=== PATIENT | male | born 1945 | race Caucasian/White ===

== ENCOUNTER 2024-06-04 10:39 | Inpatient (IN) | payer MEDICARE, SELFPAY ==
[2024-06-04] VITALS (13 sets, daily range): BP systolic 114–129; BP diastolic 56–63; PULSE 60–64; RESP 16–26; TEMP 36.6–36.9; O2SAT 88–100; BMI 22.1
--- NOTE | ~2024-06-04 | XR_ITS ---
Portable chest x-ray Comparison: 06/04/2024 Clinical History: Shortness of breath Findings: Probable minimal bibasilar airspace disease, unchanged. Cardiomediastinal silhouette is s table, with pacemaker device. Bones and soft tissues are unremarkable. Impression: Stable minimal bibasilar airspace disease. Correlate for minimal atelectasis/edema or possibly pneumo jessica. Reviewed, dictated and finalized at location . ENT STEAMER Impression: Stable minimal bibasilar airspace disease. Correlate for minimal atelectasis/ed abi[place] or possibly pneumonia.
--- NOTE | ~2024-06-04 | XR_ITS ---
Portable chest x-ray Comparison: 06/05/2024 Clinical History: Shortness of breath Findings: There is patchy left lower lobe airspace consolidation. Right lung clear. Cardiomediastin al silhouette is stable, with pacemaker device. Bones and soft tissues are unremarkable. Impression: Left lower lobe pneumonia. Reviewed, dictated and finalized at [facility]. TER TEACHER Impression: Left lower lobe pneumonia.
--- NOTE | ~2024-06-04 | XR_ITS ---
EXAMINATION: XR chest 1V portable DATE: 06/04/2024 12:28 INDICATION: Shortness of breath. Verify PICC line placement. TECHNIQUE: frontal view of the chest was obtained. COMPARISON: None FINDINGS: Right upper extremity peripherally inserted central venous catheter (PICC) tip at the cephalad super ior vena cava approximately 1 cm above level of the sarah. Skinfold projects over the lateral right lower lung zone. There are few scattered bilateral small lorraine cified pulmonary nodules consistent with old granulomatous disease. Mild reticular opacities at the l eft lung base. No pleural effusion or pneumothorax. The cardiomediastinal silhouette is normal. Three lead pacemaker seen with one lead tip projecting over the right atrium and 2-lead tips projecting ov er the right ventricle. IMPRESSION: 1. Right PICC line tip at the cephalad superior vena cava. 2. Mild reticular opacities at the left lung base which could represent atelectasis, asymmetric mild pulmonary edema or pneumonia. Reviewed, dictated and finalized at location A. FICATION OPERATOR HELPER IMPRESSION: 1. Right PICC line tip at the cephalad superior vena cava. 2. Mild reticular opacities at the left lung base which could represent atelect asis, asymmetric mild pulmonary edema or pneumonia.
--- NOTE | 2024-06-04 10:53 | P.HP_ITS ---
H&P: HPI History of Present Illness Date/Time: 06/04/24 10:53 Chief Complaint: Altered mental status Narrative: This is a 79-year-old male who presented via EMS from [facility] for increased confusion and was unresponsive to the staff. On arrival to the ED his saturation was down to 66% was placed oxygen supplementation eventaully was placed on BIPAP. Laboratory data revealed WBC of 16 K hemoglobin of 10.9 platelet count of 279. Complete metabolic profile showed sodium 143 potassium 4.2 chloride 103 bicarbonate 31 glucose was 242 BUN 46 creatinine 1.2 calcium 9.1 LFTs were within normal limit. Ethanol level negative lactic acid was 2.0. Urinalysis was negative for infection. CT head no acute intracranial abnormalities generalized cerebral atrophy. Urine drug screen was negative CT chest abdomen pelvis was performed: Several consolidations in the right lower lobe with tree-in-bud opacities lower lobes bilaterally findings compatible with multifocal pneumonia. Trace diffuse mesenteric edema and mild anasarca suggesting volume overload. Limited evaluation of the upper abdominal structures secondary to motion. Cardiac pacemaker device in left chest wall. Moderate coronary atherosclerosis. No pericardial effusion. Scattered prominent mediastinal lymph nodes. Guerra catheter in place. Prostatomegaly. Patient had been pancultured. He received antibiotics with vancomycin Zosyn and ceftriaxone per report. Patient also received azithromycin. patient is noted to be on daptomycin for staph bacteremia per notes. abg repeat at 5:00 a.m. 7.42///31 BNP 5768 he was transferred here for further treatment. he has been placed on bipap since arrival and mumbles during the evaluation but was awake. Review of Systems Review of Systems: ROS unobtainable: Yes unobtainable due to mental status [facility] Family History Family History (Updated 06/04/24 @ 15:10 by Carmen Phelan RN) Mother Heart attack Other Unknown family medical history Social History Social History Smoking status: Former smoker Tobacco type: cigarettes Alcohol intake: unknown Substance use: unknown Substance use type: unknown Meds Home Medications and Allergies Home Medications ?Medication ?Instructions ?Recorded ?Confirmed ?Type apixaban 5 mg tablet (Eliquis) 5 mg PO Q12H 06/04/24 06/04/24 History carvedilol 3.125 mg tablet 6.25 mg PO Q12H 06/04/24 06/04/24 History cyanocobalamin (vitamin B-12) 1,000 mcg PO DAILY 06/04/24 06/04/24 History 1,000 mcg capsule daptomycin 500 mg intravenous 600 mg IV Q24H urosepsis 06/04/24 06/04/24 History solution ferrous sulfate 325 mg (65 mg 325 mg PO DAILY 06/04/24 06/04/24 History iron) tablet finasteride 5 mg tablet 5 mg PO DAILY 06/04/24 06/04/24 History furosemide 40 mg tablet 40 mg PO DAILY 06/04/24 06/04/24 History honey 80 % topical gel (MediHoney 1 applic topical DAILY PRN 06/04/24 06/04/24 History (honey)) dressing changes lisinopril 5 mg tablet 5 mg PO DAILY 06/04/24 06/04/24 History loperamide 2 mg chewable tablet 2 mg PO QID PRN diarrhea 06/04/24 06/04/24 History magnesium oxide 400 mg (241.3 mg 400 mg PO BID 06/04/24 06/04/24 History magnesium) tablet metformin 1,000 mg tablet 1,000 mg PO BID 06/04/24 06/04/24 History nitroglycerin 0.4 mg sublingual 0.4 mg sublingual Q5M PRN chest 06/04/24 06/04/24 History tablet pain polyethylene glycol 3350 17 17 g PO DAILY PRN constipation 06/04/24 06/04/24 History gram/dose oral powder (Miralax) potassium chloride 20 mEq 20 meq PO DAILY 06/04/24 06/04/24 History tablet,extended release(part/cryst) sodium chloride 0.9 % (flush) 10 ml IV BID 06/04/24 06/04/24 History Allergies Allergy/AdvReac Type Severity Reaction Status Date / Time tomatoes Allergy Unknown Unknown Uncoded 06/04/24 13:24 Exam Narrative: GENERAL: The patient is well developed, not in acute distress, on BIPAP, mumbles, eyes intermittently open HEENT: Nonicteric sclerae, PERRLA, EOMI. Oropharynx clear. Moist mucous membranes. Conjunctivae appear well perfused. CHEST: Chest wall is nontender. HEART: Regular rate and rhythm without murmur, rubs, or gallops LUNGS: coarse breath sounds bilaterally. no respiratory distress ABDOMEN: Soft, positive bowel sounds, non-tender, no organomegaly. SKIN: No rash, no excessive bruising, petechiae, or purpura. NEUROLOGIC: Cranial nerves II-XII intact, patient mumbles, intermittently opens eyes, moves both extremities, confused EXTREMITIES: no edema, cyanosis or clubbing right arm picc inplace Assessment and Plan Assessment and plan (1) Acute respiratory failure: Code(s): J96.00 - Acute respiratory failure, unspecified whether with hypoxia or hypercapnia Status: Acute (2) Multifocal pneumonia: Code(s): J18.9 - Pneumonia, unspecified organism Status: Acute (3) Encephalopathy acute: Code(s): G93.40 - Encephalopathy, unspecified Status: Acute (4) Congestive heart failure: Code(s): I50.9 - Heart failure, unspecified Status: Acute (5) Hypertension: Code(s): I10 - Essential (primary) hypertension Status: Acute (6) Atrial fibrillation: Code(s): I48.91 - Unspecified atrial fibrillation Status: Acute (7) Bacteremia: Code(s): R78.81 - Bacteremia Status: Acute (8) Type 2 diabetes mellitus: Code(s): E11.9 - Type 2 diabetes mellitus without complications Status: Acute Plan This is a 79-year-old male who presented via EMS from [facility] for increased confusion and was unresponsive to the staff. On arrival to the ED his saturation was down to 66% was placed oxygen supplementation eventaully was placed on BIPAP. Laboratory data revealed WBC of 16 K hemoglobin of 10.9 platelet count of 279. Complete metabolic profile showed sodium 143 potassium 4.2 chloride 103 bicarbonate 31 glucose was 242 BUN 46 creatinine 1.2 calcium 9.1 LFTs were within normal limit. Ethanol level negative lactic acid was 2.0. Urinalysis was negative for infection. CT head no acute intracranial abnormalities generalized cerebral atrophy. Urine drug screen was negative CT chest abdomen pelvis was performed: Several consolidations in the right lower lobe with tree-in-bud opacities lower lobes bilaterally findings compatible with multifocal pneumonia. Trace diffuse mesenteric edema and mild anasarca suggesting volume overload. Limited evaluation of the upper abdominal structures secondary to motion. Cardiac pacemaker device in left chest wall. Moderate coronary atherosclerosis. No pericardial effusion. Scattered prominent mediastinal lymph nodes. Guerra catheter in place. Prostatomegaly. Patient had been pancultured. He received antibiotics with vancomycin Zosyn and ceftriaxone per report. Patient also received azithromycin. patient is noted to be on daptomycin for staph bacteremia per notes. abg repeat at 5:00 a.m. 7.42/46/53/31 BNP 5768 he was transferred here for further treatment. he has been placed on bipap since arrival and mumbles during the evaluation but was awake. will continue bipap as needed for respiratory distresss, taper down to oxygen via nasal cannual as needed acute hypoxic/mild hypercapnic resp failure: ct chest with multifocal pneumoina. Recent staph bacteremia needing daptomycin. will continue daptomycin as previously ordered. Atrial fibrillation BPH Congestive heart failure not in exacerbation. continue to monitor Coronary artery disease Dementia Type 2 diabetes mellitus SSI Hypertension Hyperlipidemia History of incarcerated hernia Status post pacemaker implantation Sick sinus syndrome DVT proph on apixaban, but now npo, so will place on lovenox code statu: full code. 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 family could not be reaached Hospitalist MIPS Advance Care Plan I have confirmed that the patient's Advanced Care Plan is present, code status is documented, or surrogate decision maker is listed in patient medical record.: Yes Medication Reconciliation I have utilized all available resources to obtain, update and review the patients current medications (includes all prescriptions, OTC, herbals, cannabis, and nutritional supplements).: Yes
[2024-06-04 12:10] LABS: Basophils Percent Auto 0.1 % (0.2-1.2); Hematocrit 37.5 % (42.0-52.0); Hemoglobin 11.2 g/dL (14.0-18.0); Immature Granulocyte Absolute 0.08 K/mm3 (0.00-0.031); Immature Granulocyte Percent A 0.5 % (0-0.5); Lymphocytes Absolute Auto 1.08 K/mm3 (0.9-3.2); Lymphocytes Percent Auto 7.3 % (18.3-44.2); Mean Corpuscular HGB Conc 29.9 g/dl (32-36); Mean Corpuscular Hemoglobin 26.5 pg (26-34); Mean Corpuscular Volume 88.7 fl (80-100); Mean Platelet Volume 11.2 fl (7.4-10.4); Monocytes Absolute Auto 0.7 K/mm3 (0.1-0.6); Monocytes Percent Auto 4.6 % (2.6-8.5); Neutrophils Percent Auto 87.5 % (45.5-73.1); Platelet Count Result 255 k/mm3 (150-375); Red Blood Count 4.23 M/mm3 (4.6-6.20); Red Cell Distribution Width 17.2 % (11.5-14.5); White Blood Count 14.8 K/mm3 (4.5-10.0)
[2024-06-04 12:21] LABS: Alanine Aminotransferase 18 U/L (6-50); Albumin Level 3.2 g/dL (3.5-5.1); Alkaline Phosphatase 94 U/L (38-126); Anion Gap 3 mmol/L (4-12); Aspartate Amino Transferase 23 U/L (17-59); Bilirubin,Total 0.9 mg/dL (0.2-1.3); Blood Urea Nitrogen 45 mg/dL (9-20); Carbon Dioxide 31 mmol/L (22-30); Chloride 108 mmol/L (98-107); Estimated Glomerular Filt Rate > 60; Glucose 180 mg/dL (65-110); Magnesium 1.8 mg/dL (1.6-2.3); Potassium 3.7 mmol/L (3.4-5.0); Sodium 142 mmol/L (137-145)
[2024-06-04 12:33] LABS: Anisocytosis 1+; Platelet Estimate Adequate (Adequate)
[2024-06-04 12:42] LABS: Schistocytes 1+
--- NOTE | 2024-06-04 13:59 | PC.NURSE ---
Patient retirement is [facility]. [phone]. Called center to get information on patient, face sheet, and med list. Patient son and daughter called after paperwork received from center. No answer from either child. Message left for both to call IMU to discuss father status. Have not received a call as of 1400. Patient unable to tolerate much movement or stimulation. Response is minimal.
[2024-06-04 15:30] LABS: Add Urine Microscopic? YES; Appearance Urine Turbid (Clear); Bacteria Urine Rare /hpf; Bilirubin Urine Negative (Negative); Blood Urine 3+ (Negative); Color Urine Yellow (Yellow); Glucose Urine UA Negative (Negative); Ketones Urine Trace mg/dL (Negative); Leukocyte Esterase Ur 2+ LEU/UL (Negative); Need Manual Microscopic Reviewed; Nitrate Urine Positive (Negative); Non Pathogenic Casts >20; Protein Urine 2+ mg/dL (Negative); RBC Urine 51-100 /hpf (0-2); Specific Grav Ur > 1.045 (1.001-1.035); Squamous Epithelial Cell Urine Occasional /hpf (Few); WBC Urine >100 /hpf (0-3)
[2024-06-04 16:19] LABS: MRSA (PCR) NOT DETECTED (NOT DETECTE)
[2024-06-04 16:49] LABS: Procalcitonin 0.4 ng/mL
[2024-06-04] MEDS: SODIUM CHLORIDE 0.9% IV 1,000 ML 50 ML IV CONT (17:36)
[2024-06-04] MEDS: DAPTOmycin 600 MG in SODIUM CHLORIDE 0.9% IV 50 ML 100 MG IVPB (17:36)
[2024-06-04] MEDS: AZITHROMYCIN 500 MG/NS 250 ML 500 MG/250 ML BAG 250 MG IVPB (17:36)
[2024-06-04] MEDS: CENTRAL LINE FLUSH 10 ML IV PUSH ×2 (17:37→21:48)
[2024-06-04] MEDS: CEFEPIME 2 GM/NS 50 ML 2 GM/50 ML BAG IVPB (17:45)
[2024-06-05] VITALS (32 sets, daily range): BP systolic 100–132; BP diastolic 56–78; PULSE 59–107; RESP 19–50; TEMP 36.6–37.3; O2SAT 85–100
[2024-06-05] MEDS: CEFEPIME 2 GM/NS 50 ML 2 GM/50 ML BAG IVPB ×3 (00:34→20:27)
[2024-06-05 00:39] LABS: Glucose Point of Care 162 mg/dl (65-105)
[2024-06-05 05:44] LABS: Glucose Point of Care 171 mg/dl (65-105)
[2024-06-05] MEDS: CENTRAL LINE FLUSH 10 ML IV PUSH ×3 (06:21→21:46)
[2024-06-05 07:52] LABS: Alveolar/Arterial O2 Gradient 93.3 mmHg; Base Excess ABG 0.8 mEq/l (+/-2.0); Fractional Inspired Oxygen 30 %; Oxygen Saturation ABG 93.7 % (95.0-100.0); Oxyhemoglobin 92.7 % THb (90.0-100.0); PCO2 ABG 43.8 mmHg (35.0-45.0); PO2 ABG 69.1 mmHg (80.0-100.0); Total Hemoglobin 11.5 g/dL (12.0-18.0); pH ABG 7.391 (7.350-7.450)
[2024-06-05 07:53] LABS: Device NON-INVASIVE VENT; Modified Allen's Test Pass; Site Drawn RIGHT RADIAL
[2024-06-05 07:54] LABS: Non-Invasive Expiratory Pressure 6 CMH2O; Non-Invasive Inspiratory Pressure 12 CMH2O; Non-Invasive Vent Rate 16 /MIN
[2024-06-05] MEDS: IPRATROPIUM 0.5 MG/ALBUTEROL SULFATE 2.5 MG AMPUL.NEB 3 ML INHALATION ×3 (08:05→21:09)
[2024-06-05 08:19] LABS: Basophils Percent Auto 0.1 % (0.2-1.2); Eosinophils Percent Auto 0.1 % (0-4.4); Hematocrit 36.8 % (42.0-52.0); Hemoglobin 10.7 g/dL (14.0-18.0); Immature Granulocyte Absolute 0.11 K/mm3 (0.00-0.031); Immature Granulocyte Percent A 0.6 % (0-0.5); Lymphocytes Absolute Auto 1.22 K/mm3 (0.9-3.2); Lymphocytes Percent Auto 6.8 % (18.3-44.2); Mean Corpuscular HGB Conc 29.1 g/dl (32-36); Mean Corpuscular Hemoglobin 26.1 pg (26-34); Mean Corpuscular Volume 89.8 fl (80-100); Mean Platelet Volume 10.7 fl (7.4-10.4); Monocytes Absolute Auto 0.8 K/mm3 (0.1-0.6); Monocytes Percent Auto 4.6 % (2.6-8.5); Neutrophils Absolute Auto 15.8 K/mm3 (1.3-6.7); Neutrophils Percent Auto 87.8 % (45.5-73.1); Platelet Count Result 261 k/mm3 (150-375); Red Cell Distribution Width 17.1 % (11.5-14.5)
[2024-06-05] MEDS: ENOXAPARIN 40 MG/0.4 ML SYRINGE SUB-Q (08:19)
[2024-06-05 08:34] LABS: Alanine Aminotransferase 16 U/L (6-50); Albumin Level 2.9 g/dL (3.5-5.1); Alkaline Phosphatase 81 U/L (38-126); Anion Gap 5 mmol/L (4-12); Aspartate Amino Transferase 21 U/L (17-59); Bilirubin,Total 0.9 mg/dL (0.2-1.3); Blood Urea Nitrogen 44 mg/dL (9-20); Calcium 9.1 mg/dL (8.4-10.2); Carbon Dioxide 29 mmol/L (22-30); Chloride 112 mmol/L (98-107); Estimated CRCL calculation 67 ml/min; Estimated Glomerular Filt Rate > 60; Glucose 177 mg/dL (65-110); Magnesium 1.8 mg/dL (1.6-2.3); Potassium 3.7 mmol/L (3.4-5.0); Sodium 146 mmol/L (137-145)
[2024-06-05 08:55] LABS: Anisocytosis 1+; Platelet Estimate Adequate (Adequate); Schistocytes 1+
--- NOTE | 2024-06-05 09:40 | PC.NURSE ---
[facility] called with a critical lab result. Patient is possitive for Parainfluenza 4. Dr. munoz notified. Droplet pracautions initiated.
--- NOTE | 2024-06-05 11:47 | P.PNIM_ITS ---
Progress Note: A&P Assessment and Plan (1) Acute respiratory failure: Code(s): J96.00 - Acute respiratory failure, unspecified whether with hypoxia or hypercapnia Status: Acute (2) Multifocal pneumonia: Code(s): J18.9 - Pneumonia, unspecified organism Status: Acute (3) Encephalopathy acute: Code(s): G93.40 - Encephalopathy, unspecified Status: Acute (4) Congestive heart failure: Code(s): I50.9 - Heart failure, unspecified Status: Acute (5) Hypertension: Code(s): I10 - Essential (primary) hypertension Status: Acute (6) Atrial fibrillation: Code(s): I48.91 - Unspecified atrial fibrillation Status: Acute (7) Bacteremia: Code(s): R78.81 - Bacteremia Status: Acute (8) Type 2 diabetes mellitus: Code(s): E11.9 - Type 2 diabetes mellitus without complications Status: Acute Plan This is a 79-year-old male who presented via EMS from [facility] for increased confusion and was unresponsive to the staff. On arrival to the ED his saturation was down to 66% was placed oxygen supplementation eventaully was placed on BIPAP. Laboratory data revealed WBC of 16 K hemoglobin of 10.9 platelet count of 279. Complete metabolic profile showed sodium 143 potassium 4.2 chloride 103 bicarbonate 31 glucose was 242 BUN 46 creatinine 1.2 calcium 9.1 LFTs were within normal limit. Ethanol level negative lactic acid was 2.0. Urinalysis was negative for infection. CT head no acute intracranial abnormalities generalized cerebral atrophy. Urine drug screen was negative CT chest abdomen pelvis was performed: Several consolidations in the right lower lobe with tree-in-bud opacities lower lobes bilaterally findings cheko tible with multifocal pneumonia. Trace diffuse mesenteric edema and mild anasarca suggesting volume overload. Limited evaluation of the upper abdominal structures secondary to motion. Cardiac pacemaker device in left chest wall. Moderate coronary atherosclerosis. No pericardial effusion. Scattered prominent mediastinal lymph nodes. Guerra catheter in place. Prostatomegaly. Patient had been pancultured. He received antibiotics with vancomycin Zosyn and ceftriaxone per report. Patient also received azithromycin. patient is noted to be on daptomycin for staph bacteremia per notes. abg repeat at 5:00 a.m. 7.42/46/53/31 BNP 5768 he was transferred here for further treatment. he has been placed on bipap since arrival and mumbles during the evaluation but was awake. continue bipap as needed for respiratory distresss, taper down to oxygen via nasal cannual as needed. Continue BiPAP at night acute hypoxic/mild hypercapnic resp failure: ct chest with multifocal pneumoina. Respiratory panel came back positive for parainfluenza. Respiratory precautions will be started. Recent staph bacteremia needing daptomycin. will continue daptomycin as previously ordered. Will get previous records. This concludes till July 01, 2023 per report Atrial fibrillation BPH Congestive heart failure not in exacerbation. continue to monitor Coronary artery disease Dementia Type 2 diabetes mellitus SSI Hypertension Hyperlipidemia History of incarcerated hernia Status post pacemaker implantation Sick sinus syndrome DVT proph on apixaban, but now npo, so will place on lovenox code statu: full code. 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 family Amadeo was called this afternoon and confirmed and verified a do not resuscitate. Will change it to do not resuscitate Subjective Date/time seen: 06/05/24 11:47 Interval history: Patient had desaturation overnight and hence was put back on BiPAP. Was tachypneic earlier. Opens his eyes on verbal commands. Hard to understand. Labs reviewed. ABG reviewed. Review of Systems Review of Systems: All systems reviewed & are unremarkable except as noted in HPI and below ROS unobtainable: Yes unobtainable due to mental status Exam Narrative: GENERAL: The patient is well developed, not in acute distress, on BIPAP, mumbles, opens eyes on verbal commands hard to understand HEENT: Nonicteric sclerae, PERRLA, EOMI. Oropharynx clear. Moist mucous membranes. Conjunctivae appear well perfused. CHEST: Chest wall is nontender. HEART: Regular rate and rhythm without murmur, rubs, or gallops LUNGS: coarse breath sounds bilaterally. no respiratory distress ABDOMEN: Soft, positive bowel sounds, non-tender, no organomegaly. SKIN: No rash, no excessive bruising, petechiae, or purpura. NEUROLOGIC: Cranial nerves II-XII intact, patient mumbles, intermittently opens eyes, moves both extremities, confused EXTREMITIES: no edema, cyanosis or clubbing right arm picc inplace Objective Data Vital Signs Vital Signs: Vital Signs - 24 hr 06/04/24 12:06/04/24 12:00 06/04/24 12:05 Temperature 97.9 F 97.9 F Pulse Rate 64 64 Respiratory Rate 16 16 Blood Pressure 127/63 127/63 Pulse Oximetry 94 94 88 L Oxygen Delivery BiPAP Oxygen Flow Rate Fraction of Inspired Oxygen 40 06/04/24 12:07 06/04/24 14:12 06/04/24 15:52 Temperature Pulse Rate 60 Respiratory Rate 26 H Blood Pressure Pulse Oximetry 92 92 98 Oxygen Delivery BiPAP BiPAP Nasal Cannula Oxygen Flow Rate 5 Fraction of Inspired Oxygen 50 40 06/04/24 15:53 06/04/24 16:00 06/04/24 16:08 Temperature 98.4 F Pulse Rate 60 60 Respiratory Rate 24 H Blood Pressure 129/60 Pulse Oximetry 100 97 Oxygen Delivery Nasal Cannula Oxygen Flow Rate 3 Fraction of Inspired Oxygen 32 06/04/24 19:39 06/04/24 20:00 06/04/24 20:15 Temperature 98.1 F Pulse Rate 62 62 Respiratory Rate 24 H Blood Pressure 114/56 L Pulse Oximetry 100 99 Oxygen Delivery Nasal Cannula Oxygen Flow Rate 3 Fraction of Inspired Oxygen 06/04/24 22:00 06/05/24 00:00 06/05/24 00:28 Temperature 98.7 F Pulse Rate 60 60 68 Respiratory Rate 20 Blood Pressure 122/58 L Pulse Oximetry 96 Oxygen Delivery Oxygen Flow Rate Fraction of Inspired Oxygen 06/05/24 00:30 06/05/24 02:00 06/05/24 03:52 Temperature 99.1 F Pulse Rate 60 60 Respiratory Rate 22 H Blood Pressure 132/57 L Pulse Oximetry 97 85 L Oxygen Delivery Nasal Cannula Oxygen Flow Rate 3 Fraction of Inspired Oxygen 06/05/24 04:00 06/05/24 04:00 06/05/24 06:00 Temperature Pulse Rate 60 60 Respiratory Rate Blood Pressure Pulse Oximetry 85 L Oxygen Delivery Nasal Cannula Oxygen Flow Rate 3 Fraction of Inspired Oxygen 06/05/24 07:36 06/05/24 07:37 06/05/24 07:59 Temperature 98.7 F Pulse Rate 60 60 60 Respiratory Rate 30 H 19 33 H Blood Pressure 132/78 Pulse Oximetry 97 96 98 Oxygen Delivery BiPAP BiPAP Oxygen Flow Rate Fraction of Inspired Oxygen 06/05/24 08:00 06/05/24 08:00 06/05/24 08:06 Temperature Pulse Rate 60 61 Respiratory Rate 22 H Blood Pressure Pulse Oximetry 99 Oxygen Delivery BiPAP Oxygen Flow Rate Fraction of Inspired Oxygen 40 06/05/24 08:15 06/05/24 10:00 06/05/24 11:39 Temperature Pulse Rate 78 60 62 Respiratory Rate 24 H 33 H Blood Pressure Pulse Oximetry 100 Oxygen Delivery BiPAP Oxygen Flow Rate Fraction of Inspired Oxygen Intake/Output Intake/Output: Intake & Output 06/02/24 06/03/24 06/04/24 06/05/24 23:59 23:59 23:59 23:59 Intake Total 50 50 Output Total 100 225 Balance -50 -175 Meds/Results Medications: Active Medications Generic Name Dose Route Start Last Admin Trade Name Freq PRN Reason Stop Dose Admin Albuterol/Ipratropium 3 ml 06/05/24 08:00 06/05/24 08:05 Ipratropium 0.5 Mg/Albuterol Sulfate 2.5 Mg Ampul.Neb 3 Ml INHALATION 3 ml Q6HRT DEBBIE Administration Dextrose 12.5 gm 06/04/24 13:10 Dextrose 50% 25 Gm/50 Ml Syringe IV PUSH PRN PRN Hypoglycemia Protocol Enoxaparin Sodium 40 mg 06/05/24 09:00 06/05/24 08:19 Enoxaparin 40 Mg/0.4 Ml Syringe SUB-Q 40 mg DAILY DEBBIE Administration Glucagon 1 mg 06/04/24 13:10 Glucagon For Inj 1 Mg Vial IM PRN PRN Hypoglycemia Protocol Glucose 15 gm 06/04/24 13:10 Glucose Oral Gel 15 Gm Of Glucse In 37.5 Gm Tube PO PRN PRN Hypoglycemia Protocol Dextrose 1,000 mls @ 100 mls/hr 06/04/24 13:10 Dextrose 5% 1,000 Ml IVPB PRN PRN Hypoglycemia Protocol Cefepime HCl 2 gm in 50 mls @ 100 mls/hr 06/04/24 13:15 06/05/24 09:24 Maxipime 2 Gm/Ns 50 Ml IVPB 100 mls/hr Q12HR DEBBIE Administration Azithromycin 500 mg in 250 mls @ 250 mls/hr 06/04/24 15:00 06/04/24 17:36 Zithromax IVPB 250 mls/hr Q24H DEBBIE Administration Daptomycin 600 mg/ Sodium 50 mls @ 100 mls/hr 06/04/24 17:00 06/04/24 17:36 Chloride IVPB 100 mls/hr Q24H DEBBIE Administration Sodium Chloride 1,000 mls @ 50 mls/hr 06/04/24 16:05 06/04/24 17:36 Normal Saline Iv IV CONT 50 mls/hr .Q20H DEBBIE Administration Insulin Aspart 2 - 5 units 06/04/24 18:00 06/05/24 06:18 Insulin Aspart (*Bkc) 100 Units/Ml SUB-Q Not Given Q6HR [facility] Protocol Ondansetron HCl 4 mg 06/04/24 11:05 Ondansetron Inj 4 Mg/2 Ml Vial IV PUSH Q6H PRN Nausea And Vomiting Sodium Chloride 20 ml 06/04/24 13:53 Central Line Flush IV PUSH PRN PRN after blood draws Sodium Chloride 10 ml 06/04/24 13:53 Central Line Flush IV PUSH PRN PRN with TPN bag changes Sodium Chloride 10 ml 06/04/24 14:00 06/05/24 06:21 Central Line Flush IV PUSH 10 ml Q8HR DEBBIE Administration Radiology Results: ITS Impressions Chest X-Ray 06/05/24 08:25 Impression: Stable minimal bibasilar airspace disease. Correlate for minimal atelectasis/edema or possibly pneumonia. Labs Labs: Laboratory Results - last 24 hr 06/04/24 06/04/24 06/05/24 11:48 14:40 00:31 WBC 14.8 H RBC 4.23 L Hgb 11.2 L Hct 37.5 L MCV 88.7 MCH 26.5 MCHC 29.9 L RDW 17.2 H Plt Count 255 MPV 11.2 H Immature Gran % (Auto) 0.5 Neut % (Auto) 87.5 H Lymph % (Auto) 7.[address] % (Auto) 4.6 Eos % (Auto) 0.0 Baso % (Auto) 0.1 L Lymph # (Auto) 1.08 [place] # (Auto) 0.7 H Eos # (Auto) 0.0 Baso # (Auto) 0.0 Abs Immat Gran (auto) 0.08 H Absolute Neuts (auto) 13.0 H Absolute Nucleated RBC 0.000 Nucleated RBC % 0.0 Platelet Estimate Adequate Anisocytosis 1+ Schistocytes 1+ Puncture Site ABG pH ABG pCO2 ABG pO2 ABG PO2/FiO2 Ratio ABG HCO3 ABG O2 Saturation ABG O2 Content ABG Base Excess A-a Gradient Oxyhemoglobin Total Hemoglobin O2 Delivery Device O2 Liters/Min Vent Rate FiO2 Expiratory Pressure Inspiratory Pressure Sodium 142 Potassium 3.7 Chloride 108 H Carbon Dioxide 31 H Anion Gap 3 L BUN 45 H Creatinine 0.90 Estim Creat Clear Calc Not Reportable Estimated GFR > 60 Glucose 180 H POC Capillary Glucose 162 H Hemoglobin A1c 8.0 H Calcium 9.0 Magnesium 1.8 Total Bilirubin 0.9 AST 23 ALT 18 Alkaline Phosphatase 94 Total Protein 7.0 Albumin 3.2 L Procalcitonin 0.4 Urine Color Yellow Urine Appearance Turbid H Urine pH 5.0 Ur Specific [place] > 1.045 H Urine Protein 2+ H Urine Glucose (UA) Negative Urine Ketones Trace H Ur Blood (Man) 3+ H Urine Nitrate Positive H Urine Bilirubin Negative Urine Urobilinogen 1.0 Add Ur Microanalysis Reviewed Leukocyte Esterase Rfl 2+ H Urine RBC 51-100 H Urine WBC >100 H Ur Squamous Epith Cells Occasional Urine Bacteria Rare Urine Casts >20 Nasal MRSA (PCR) Not detected 06/05/24 06/05/24 06/05/24 05:38 07:47 08:13 WBC 18.0 H RBC 4.10 L Hgb 10.7 L Hct 36.8 L MCV 89.8 MCH 26.1 MCHC 29.1 L RDW 17.1 H Plt Count 261 MPV 10.7 H Immature Gran % (Auto) 0.6 H Neut % (Auto) 87.8 H Lymph % (Auto) 6.[address] [place] % (Auto) 4.6 Eos % (Auto) 0.1 Baso % (Auto) 0.1 L Lymph # (Auto) 1.22 [place] # (Auto) 0.8 H Eos # (Auto) 0.0 Baso # (Auto) 0.0 Abs Immat Gran (auto) 0.11 H Absolute Neuts (auto) 15.8 H Absolute Nucleated RBC 0.000 Nucleated RBC % 0.0 Platelet Estimate Adequate Anisocytosis 1+ Schistocytes 1+ Puncture Site Right radial ABG pH 7.391 ABG pCO2 43.8 ABG pO2 69.1 L ABG PO2/FiO2 Ratio 2.30 ABG HCO3 26.0 ABG O2 Saturation 93.7 L ABG O2 Content 15.0 L ABG Base Excess 0.8 A-a Gradient 93.3 Oxyhemoglobin 92.7 Total Hemoglobin 11.5 L O2 Delivery Device Non-invasive vent O2 Liters/Min Not Reportable Vent Rate 16 FiO2 30 Expiratory Pressure 6 Inspiratory Pressure 12 Sodium 146 H Potassium 3.7 Chloride 112 H Carbon Dioxide 29 Anion Gap 5 BUN 44 H Creatinine 0.80 Estim Creat Clear Calc 67 Estimated GFR > 60 Glucose 177 H POC Capillary Glucose 171 H Hemoglobin A1c Calcium 9.1 Magnesium 1.8 Total Bilirubin 0.9 AST 21 ALT 16 Alkaline Phosphatase 81 Total Protein 7.0 Albumin 2.9 L Procalcitonin Urine Color Urine Appearance Urine pH Ur Specific [place] Urine Protein Urine Glucose (UA) Urine Ketones Ur Blood (Man) Urine Nitrate Urine Bilirubin Urine Urobilinogen Add Ur Microanalysis Leukocyte Esterase Rfl Urine RBC Urine WBC Ur Squamous Epith Cells Urine Bacteria Urine Casts Nasal MRSA (PCR)
[2024-06-05 11:58] LABS: Glucose Point of Care 180 mg/dl (65-105)
[2024-06-05] MEDS: SODIUM CHLORIDE 0.9% IV 1,000 ML 50 ML IV CONT (15:33)
[2024-06-05] MEDS: AZITHROMYCIN 500 MG/NS 250 ML 500 MG/250 ML BAG 250 MG IVPB (15:34)
[2024-06-05 16:32] LABS: Glucose Point of Care 181 mg/dl (65-105)
[2024-06-05] MEDS: DAPTOmycin 600 MG in SODIUM CHLORIDE 0.9% IV 50 ML 100 MG IVPB (17:20)
[2024-06-05] MEDS: LORazepam INJ (*CRX) 2 MG/ML VIAL 1 MG IV PUSH (22:05)
[2024-06-05] MEDS: MORPHINE SULFATE (*CRX) 2 MG/ML INJ 1 MG IV PUSH (22:06)
[2024-06-05 23:51] LABS: Glucose Point of Care 195 mg/dl (65-105)
[2024-06-06] VITALS (15 sets, daily range): BP systolic 84–97; BP diastolic 45–51; PULSE 60–86; RESP 14–63; TEMP 36.2–37.1; O2SAT 89–98; BMI 22.4
[2024-06-06] MEDS: IPRATROPIUM 0.5 MG/ALBUTEROL SULFATE 2.5 MG AMPUL.NEB 3 ML INHALATION ×2 (02:20→07:46)
[2024-06-06] MEDS: MORPHINE SULFATE (*CRX) 2 MG/ML INJ 1 MG IV PUSH (03:51)
[2024-06-06] MEDS: LORazepam INJ (*CRX) 2 MG/ML VIAL 1 MG IV PUSH (03:54)
[2024-06-06 05:26] LABS: Basophils Percent Auto 0.1 % (0.2-1.2); Eosinophils Percent Auto 0.2 % (0-4.4); Hematocrit 35.3 % (42.0-52.0); Hemoglobin 10.2 g/dL (14.0-18.0); Immature Granulocyte Absolute 0.09 K/mm3 (0.00-0.031); Immature Granulocyte Percent A 0.5 % (0-0.5); Lymphocytes Absolute Auto 1.17 K/mm3 (0.9-3.2); Lymphocytes Percent Auto 6.9 % (18.3-44.2); Mean Corpuscular HGB Conc 28.9 g/dl (32-36); Mean Corpuscular Volume 89.8 fl (80-100); Mean Platelet Volume 11.3 fl (7.4-10.4); Monocytes Percent Auto 5.8 % (2.6-8.5); Neutrophils Absolute Auto 14.7 K/mm3 (1.3-6.7); Neutrophils Percent Auto 86.5 % (45.5-73.1); Platelet Count Result 240 k/mm3 (150-375); Red Blood Count 3.93 M/mm3 (4.6-6.20); Red Cell Distribution Width 17.1 % (11.5-14.5)
[2024-06-06 05:38] LABS: Alanine Aminotransferase 14 U/L (6-50); Albumin Level 2.7 g/dL (3.5-5.1); Alkaline Phosphatase 100 U/L (38-126); Anion Gap 5 mmol/L (4-12); Aspartate Amino Transferase 16 U/L (17-59); Bilirubin,Total 0.9 mg/dL (0.2-1.3); Blood Urea Nitrogen 50 mg/dL (9-20); Calcium 9.2 mg/dL (8.4-10.2); Carbon Dioxide 28 mmol/L (22-30); Chloride 115 mmol/L (98-107); Creatine Kinase 30 U/L (55-170); Estimated CRCL calculation 68 ml/min; Estimated Glomerular Filt Rate > 60; Glucose 204 mg/dL (65-110); Potassium 3.6 mmol/L (3.4-5.0); Sodium 148 mmol/L (137-145)
[2024-06-06 05:38] LABS: Glucose Point of Care 179 mg/dl (65-105)
[2024-06-06 05:59] LABS: Anisocytosis 1+; Platelet Estimate Adequate (Adequate); Poikilocytosis 1+
[2024-06-06 06:00] LABS: Acanthocytes 1+; Burr Cells 1+; Schistocytes None Seen
[2024-06-06] MEDS: CENTRAL LINE FLUSH 10 ML IV PUSH ×2 (06:24→13:26)
[2024-06-06] MEDS: LORazepam INJ (*CRX) 2 MG/ML VIAL IV PUSH ×2 (08:02→10:26)
[2024-06-06] MEDS: MORPHINE SULFATE (*CRX) 2 MG/ML INJ IV PUSH ×2 (08:02→10:27)
--- NOTE | 2024-06-06 08:12 | PC.NURSE ---
0730: RR 60, O2 84% on Bipap 02/12, 30%. Shirin RT notified. Fio2 increased to 100%. O2 91%. Dr. Villaseñor made aware. Advised to notify family. Supervisor Dried Yeast called Amadeo who reports he would like to move forward with comfort care. Reports comfort measures were discussed yesterday with MD. Dr. Villaseñor made aware. New orders noted for Morhphine and Ativan. 0800: Supervisor Dried Yeast called Amadeo back to discuss withdrawl of Bipap. Amadeo will call administrative underwriter back after discussing with family.
--- NOTE | 2024-06-06 10:30 | PCRCNOTE ---
RT took patient off bipap with family present in room. Patient is now comfort care and on a 2L NC. RN present for encounter.
--- NOTE | 2024-06-06 12:39 | PM.IMPN ---
Progress Note: A&P Assessment and Plan (1) Acute respiratory failure: Code(s): J96.00 - Acute respiratory failure, unspecified whether with hypoxia or hypercapnia Status: Acute (2) Multifocal pneumonia: Code(s): J18.9 - Pneumonia, unspecified organism Status: Acute (3) Encephalopathy acute: Code(s): G93.40 - Encephalopathy, unspecified Status: Acute (4) Congestive heart failure: Code(s): I50.9 - Heart failure, unspecified Status: Acute (5) Hypertension: Code(s): I10 - Essential (primary) hypertension Status: Acute (6) Atrial fibrillation: Code(s): I48.91 - Unspecified atrial fibrillation Status: Acute (7) Bacteremia: Code(s): R78.81 - Bacteremia Status: Acute (8) Type 2 diabetes mellitus: Code(s): E11.9 - Type 2 diabetes mellitus without complications Status: Acute Plan This is a 79-year-old male who presented via EMS from [facility] for increased confusion and was unresponsive to the staff. On arrival to the ED his saturation was down to 66% was placed oxygen supplementation eventaully was placed on BIPAP. Laboratory data revealed WBC of 16 K hemoglobin of 10.9 platelet count of 279. Complete metabolic profile showed sodium 143 potassium 4.2 chloride 103 bicarbonate 31 glucose was 242 BUN 46 creatinine 1.2 calcium 9.1 LFTs were within normal limit. Ethanol level negative lactic acid was 2.0. Urinalysis was negative for infection. CT head no acute intracranial abnormalities generalized cerebral atrophy. Urine drug screen was negative CT chest abdomen pelvis was performed: Several consolidations in the right lower lobe with tree-in-bud opacities lower lobes bilaterally findings compatible with multifocal pneumonia. Trace diffuse mesenteric edema and mild anasarca suggesting volume overload. Limited evaluation of the upper abdominal structures secondary to motion. Cardiac pacemaker device in left chest wall. Moderate coronary atherosclerosis. No pericardial effusion. Scattered prominent mediastinal lymph nodes. Guerra catheter in place. Prostatomegaly. Patient had been pancultured. He received antibiotics with vancomycin Zosyn and ceftriaxone per report. Patient also received azithromycin. patient is noted to be on daptomycin for staph bacteremia per notes. abg repeat at 5:00 a.m. 7.42/46/53/31 BNP 5768 he was transferred here for further treatment. he has been placed on bipap since arrival and mumbles during the evaluation but was awake. continue bipap as needed for respiratory distresss, taper down to oxygen via nasal cannula as needed. Continue BiPAP at night acute hypoxic/mild hypercapnic resp failure: ct chest with multifocal pneumonia. Respiratory panel came back positive for parainfluenza. Respiratory precautions will be started. Recent staph bacteremia needing daptomycin. will continue daptomycin as previously ordered. Will get previous records. This concludes till July 01, 2023 per report Atrial fibrillation BPH Congestive heart failure not in exacerbation. continue to monitor Coronary artery disease Dementia Type 2 diabetes mellitus SSI Hypertension Hyperlipidemia History of incarcerated hernia Status post pacemaker implantation Sick sinus syndrome DVT proph on apixaban, but now npo, so will place on lovenox code statu: full code. 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 family Amadeo was called this afternoon and confirmed and verified a do not resuscitate. changed to do not resuscitate now comfort care as discussed with patient's family. Subjective Date/time seen: 06/06/24 12:39 Interval history: Patient continues to be on respiratory distress. Remained on BiPAP. Family was called and discussed. Initiated on Comfort measures this a.m.. Review of Systems Review of Systems: ROS unobtainable: Yes unobtainable due to mental status Exam Narrative: GENERAL: The patient is thin built, tachypneic HEENT: Nonicteric sclerae, PERRLA, EOMI. Oropharynx clear. Moist mucous membranes. Conjunctivae appear well perfused. CHEST: Chest wall is nontender. HEART: Regular rate and rhythm without murmur, rubs, or gallops LUNGS: coarse breath sounds bilaterally. respiratory distress ABDOMEN: Soft, positive bowel sounds, non-tender, no organomegaly. SKIN: No rash, no excessive bruising, petechiae, or purpura. NEUROLOGIC: Cranial nerves II-XII intact, patient unresponsive EXTREMITIES: no edema, cyanosis or clubbing right arm picc in place Objective Data Vital Signs Vital Signs: Vital Signs - 24 hr 06/05/24 13:32 06/05/24 13:35 06/05/24 13:44 Temperature Pulse Rate 91 90 60 Respiratory Rate 36 H 20 20 Blood Pressure Pulse Oximetry 100 Oxygen Delivery BiPAP Oxygen Flow Rate Fraction of Inspired Oxygen 06/05/24 14:00 06/05/24 16:00 06/05/24 16:00 Temperature Pulse Rate 60 60 Respiratory Rate Blood Pressure Pulse Oximetry 99 Oxygen Delivery BiPAP Oxygen Flow Rate Fraction of Inspired Oxygen 40 06/05/24 16:12 06/05/24 17:27 06/05/24 18:00 Temperature 97.8 F Pulse Rate 60 107 H 60 Respiratory Rate 30 H 33 H Blood Pressure 113/58 L Pulse Oximetry 100 98 Oxygen Delivery BiPAP Oxygen Flow Rate Fraction of Inspired Oxygen 06/05/24 20:00 06/05/24 20:00 06/05/24 20:25 Temperature 97.8 F Pulse Rate 60 61 Respiratory Rate 20 Blood Pressure 128/65 Pulse Oximetry 94 95 Oxygen Delivery BiPAP Oxygen Flow Rate Fraction of Inspired Oxygen 50 06/05/24 21:09 06/05/24 21:23 06/05/24 21:24 Temperature Pulse Rate 60 61 60 Respiratory Rate 50 H 48 H 50 H Blood Pressure Pulse Oximetry 100 Oxygen Delivery BiPAP Oxygen Flow Rate Fraction of Inspired Oxygen 06/05/24 22:00 06/05/24 23:51 06/06/24 00:00 Temperature 98.1 F Pulse Rate 60 61 Respiratory Rate 19 Blood Pressure 100/56 L Pulse Oximetry 98 96 Oxygen Delivery BiPAP Oxygen Flow Rate Fraction of Inspired Oxygen 40 06/06/24 00:00 06/06/24 02:00 06/06/24 02:15 Temperature Pulse Rate 61 60 60 Respiratory Rate 56 H Blood Pressure Pulse Oximetry 95 Oxygen Delivery BiPAP Oxygen Flow Rate Fraction of Inspired Oxygen 06/06/24 02:20 06/06/24 02:30 06/06/24 04:00 Temperature Pulse Rate 60 60 Respiratory Rate 20 42 H Blood Pressure Pulse Oximetry 96 Oxygen Delivery BiPAP Oxygen Flow Rate Fraction of Inspired Oxygen 55 06/06/24 04:00 06/06/24 04:00 06/06/24 06:24 Temperature 97.8 F Pulse Rate 60 60 60 Respiratory Rate 19 Blood Pressure 92/45 L Pulse Oximetry 95 Oxygen Delivery Oxygen Flow Rate Fraction of Inspired Oxygen 06/06/24 07:47 06/06/24 07:47 06/06/24 07:54 Temperature Pulse Rate 60 60 60 Respiratory Rate 52 H 52 H 63 H Blood Pressure Pulse Oximetry 89 L Oxygen Delivery BiPAP Oxygen Flow Rate Fraction of Inspired Oxygen 06/06/24 08:00 06/06/24 08:00 06/06/24 08:00 Temperature 98.1 F Pulse Rate 86 60 Respiratory Rate 60 H Blood Pressure 97/51 L Pulse Oximetry 91 96 Oxygen Delivery BiPAP Oxygen Flow Rate Fraction of Inspired Oxygen 100 06/06/24 09:14 06/06/24 10:30 Temperature Pulse Rate 60 Respiratory Rate 61 H Blood Pressure Pulse Oximetry 92 98 Oxygen Delivery BiPAP Nasal Cannula Oxygen Flow Rate 2 Fraction of Inspired Oxygen 28 Intake/Output Intake/Output: Intake & Output 06/03/24 06/04/24 06/05/24 06/06/24 23:59 23:59 23:59 23:59 Intake Total 350 1450 Output Total 100 525 150 Balance 250 925 -150 Meds/Results Medications: Active Medications Generic Name Dose Route Start Last Admin Trade Name Freq PRN Reason Stop Dose Admin Lorazepam 2 mg 06/06/24 07:51 06/06/24 10:26 Lorazepam Inj (*Crx) 2 Mg/Ml Vial IV PUSH 2 mg Q2H PRN Administration Anxiety/Comfort Morphine Sulfate 2 mg 06/06/24 07:51 06/06/24 10:27 Morphine Sulfate (*Crx) 2 Mg/Ml Inj IV PUSH 2 mg Q30M PRN Administration COMFORT Ondansetron HCl 4 mg 06/04/24 11:05 Ondansetron Inj 4 Mg/2 Ml Vial IV PUSH Q6H PRN Nausea And Vomiting Sodium Chloride 20 ml 06/04/24 13:53 Central Line Flush IV PUSH PRN PRN after blood draws Sodium Chloride 10 ml 06/04/24 13:53 Central Line Flush IV PUSH PRN PRN with TPN bag changes Sodium Chloride 10 ml 06/04/24 14:00 06/06/24 06:24 Central Line Flush IV PUSH 10 ml Q8HR DEBBIE Administration Radiology Results: ITS Impressions Chest X-Ray 06/06/24 07:37 Impression: Left lower lobe pneumonia. Labs Labs: Laboratory Results - last 24 hr 06/05/24 06/05/24 06/06/24 16:28 23:47 04:57 WBC 17.0 H RBC 3.93 L Hgb 10.2 L Hct 35.3 L MCV 89.8 MCH 26.0 MCHC 28.9 L RDW 17.1 H Plt Count 240 MPV 11.3 H Immature Gran % (Auto) 0.5 Neut % (Auto) 86.5 H Lymph % (Auto) 6.[address] [place] % (Auto) 5.8 Eos % (Auto) 0.2 Baso % (Auto) 0.1 L Lymph # (Auto) 1.17 [place] # (Auto) 1.0 H Eos # (Auto) 0.0 Baso # (Auto) 0.0 Abs Immat Gran (auto) 0.09 H Absolute Neuts (auto) 14.7 H Absolute Nucleated RBC 0.000 Nucleated RBC % 0.0 Platelet Estimate Adequate Poikilocytosis 1+ Anisocytosis 1+ [place]ver Cells 1+ Acanthocytes (Spur) 1+ Schistocytes None seen Sodium 148 H Potassium 3.6 Chloride 115 H Carbon Dioxide 28 Anion Gap 5 BUN 50 H Creatinine 0.80 Estim Creat Clear Calc 68 Estimated GFR > 60 Glucose 204 H POC Capillary Glucose 181 H 195 H Calcium 9.2 Magnesium 2.0 Total Bilirubin 0.9 AST 16 L ALT 14 Alkaline Phosphatase 100 Total Creatine Kinase 30 L Total Protein 6.0 L Albumin 2.7 L 06/06/24 05:32 WBC RBC Hgb Hct MCV MCH MCHC RDW Plt Count MPV Immature Gran % (Auto) Neut % (Auto) Lymph % (Auto) [place] % (Auto) Eos % (Auto) Baso % (Auto) Lymph # (Auto) [place] # (Auto) Eos # (Auto) Baso # (Auto) Abs Immat Gran (auto) Absolute Neuts (auto) Absolute Nucleated RBC Nucleated RBC % Platelet Estimate Poikilocytosis Anisocytosis [place] Cells Acanthocytes (Spur) Schistocytes Sodium Potassium Chloride Carbon Dioxide Anion Gap BUN Creatinine Estim Creat Clear Calc Estimated GFR Glucose POC Capillary Glucose 179 H Calcium Magnesium Total Bilirubin AST ALT Alkaline Phosphatase Total Creatine Kinase Total Protein Albumin
--- NOTE | 2024-06-06 12:46 | PC.NURSE ---
This patient, Avila Fernandez, was transferred to [facility] on 06/06/24 at 1246. Personal belongings sent with patient. Report given to JACOB Trevizo. Appropriate documentation sent with patient.
--- NOTE | 2024-06-06 12:53 | PC.NURSE ---
This patient, Avila Fernandez, was received from [ IMU] on 06/06/24 at 1240. Patient/family oriented to unit policies and routines. Report from Mita
[2024-06-07 08:00] VITALS: BP 107/38; PULSE 60; RESP 14; TEMP 36.8; O2SAT 94
[2024-06-07 09:00] VITALS: O2SAT 93
--- NOTE | 2024-06-07 12:51 | P.PNIM_ITS ---
Progress Note: A&P Assessment and Plan (1) Acute respiratory failure: Code(s): J96.00 - Acute respiratory failure, unspecified whether with hypoxia or hypercapnia Status: Acute (2) Multifocal pneumonia: Code(s): J18.9 - Pneumonia, unspecified organism Status: Acute (3) Encephalopathy acute: Code(s): G93.40 - Encephalopathy, unspecified Status: Acute (4) Congestive heart failure: Code(s): I50.9 - Heart failure, unspecified Status: Acute (5) Hypertension: Code(s): I10 - Essential (primary) hypertension Status: Acute (6) Atrial fibrillation: Code(s): I48.91 - Unspecified atrial fibrillation Status: Acute (7) Bacteremia: Code(s): R78.81 - Bacteremia Status: Acute (8) Type 2 diabetes mellitus: Code(s): E11.9 - Type 2 diabetes mellitus without complications Status: Acute Plan This is a 79-year-old male who presented via EMS from [facility] for increased confusion and was unresponsive to the staff. On arrival to the ED his saturation was down to 66% was placed oxygen supplementation eventaully was placed on BIPAP. Laboratory data revealed WBC of 16 K hemoglobin of 10.9 platelet count of 279. Complete metabolic profile showed sodium 143 potassium 4.2 chloride 103 bicarbonate 31 glucose was 242 BUN 46 creatinine 1.2 calcium 9.1 LFTs were within normal limit. Ethanol level negative lactic acid was 2.0. Urinalysis was negative for infection. CT head no acute intracranial abnormalities generalized cerebral atrophy. Urine drug screen was negative CT chest abdomen pelvis was performed: Several consolidations in the right lower lobe with tree-in-bud opacities lower lobes bilaterally findings cheko tible with multifocal pneumonia. Trace diffuse mesenteric edema and mild anasarca suggesting volume overload. Limited evaluation of the upper abdominal structures secondary to motion. Cardiac pacemaker device in left chest wall. Moderate coronary atherosclerosis. No pericardial effusion. Scattered prominent mediastinal lymph nodes. Guerra catheter in place. Prostatomegaly. Patient had been pancultured. He received antibiotics with vancomycin Zosyn and ceftriaxone per report. Patient also received azithromycin. patient is noted to be on daptomycin for staph bacteremia per notes. abg repeat at 5:00 a.m. 7.42/46/53/31 BNP 5768 he was transferred here for further treatment. he has been placed on bipap since arrival and mumbles during the evaluation but was awake. continue bipap as needed for respiratory distresss, taper down to oxygen via nasal cannula as needed. Continue BiPAP at night acute hypoxic/mild hypercapnic resp failure: ct chest with multifocal pneumonia. Respiratory panel came back positive for parainfluenza. Respiratory precautions continued Recent staph bacteremia needing daptomycin. will continue daptomycin as previously ordered. This concludes till July 01, 2023 per report Atrial fibrillation BPH Congestive heart failure not in exacerbation. continue to monitor Coronary artery disease Dementia Type 2 diabetes mellitus SSI Hypertension Hyperlipidemia History of incarcerated hernia Status post pacemaker implantation Sick sinus syndrome DVT proph on apixaban, but now npo, so will place on lovenox code statu: full code. 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 family Amadeo was called this afternoon and confirmed and verified a do not resuscitate. changed to do not resuscitate patient respiratory status continued to decline and now transitioned to comfort care as discussed with patient's family. hospice referral today Subjective Date/time seen: 06/07/24 12:51 Interval history: no overnight events, patient unresponsive. comfortable, resting Review of Systems Review of Systems: ROS unobtainable: Yes unobtainable due to mental status Exam Narrative: GENERAL: The patient is thin built, calm HEENT: Nonicteric sclerae, PERRLA, EOMI. Oropharynx clear. Moist mucous membranes. Conjunctivae appear well perfused. CHEST: Chest wall is nontender. HEART: Regular rate and rhythm without murmur, rubs, or gallops LUNGS: coarse breath sounds bilaterally. respiratory distress ABDOMEN: Soft, positive bowel sounds, non-tender, no organomegaly. SKIN: No rash, no excessive bruising, petechiae, or purpura. NEUROLOGIC: patient unresponsive EXTREMITIES: no edema, cyanosis or clubbing right arm picc in place Objective Data Vital Signs Vital Signs: Vital Signs - 24 hr 06/06/24 12:54 06/06/24 13:01 06/06/24 20:00 Temperature 97.2 F L 98.8 F Pulse Rate 60 63 Respiratory Rate 14 17 Blood Pressure 84/46 L Pulse Oximetry 94 94 93 Oxygen Delivery Nasal Cannula Oxygen Flow Rate 2 06/07/24 08:00 06/07/24 08:00 Temperature 98.2 F Pulse Rate 60 Respiratory Rate 14 Blood Pressure 107/38 L Pulse Oximetry 94 Oxygen Delivery Nasal Cannula Oxygen Flow Rate 2 Intake/Output Intake/Output: Intake & Output 06/04/24 06/05/24 06/06/24 06/07/24 23:59 23:59 23:59 23:59 Intake Total 350 1450 0 Output Total 100 525 200 150 Balance 250 925 -200 -150 Meds/Results Medications: Active Medications Generic Name Dose Route Start Last Admin Trade Name Freq PRN Reason Stop Dose Admin Lorazepam 2 mg 06/06/24 07:51 06/06/24 10:26 Lorazepam Inj (*Crx) 2 Mg/Ml Vial IV PUSH 2 mg Q2H PRN Administration Anxiety/Comfort Morphine Sulfate 2 mg 06/06/24 07:51 06/06/24 10:27 Morphine Sulfate (*Crx) 2 Mg/Ml Inj IV PUSH 2 mg Q30M PRN Administration COMFORT Ondansetron HCl 4 mg 06/04/24 11:05 Ondansetron Inj 4 Mg/2 Ml Vial IV PUSH Q6H PRN Nausea And Vomiting Sodium Chloride 20 ml 06/04/24 13:53 Central Line Flush IV PUSH PRN PRN after blood draws Sodium Chloride 10 ml 06/04/24 13:53 Central Line Flush IV PUSH PRN PRN with TPN bag changes Sodium Chloride 10 ml 06/04/24 14:00 06/06/24 13:26 Central Line Flush IV PUSH 10 ml Q8HR DEBBIE Administration Radiology Results: ITS Impressions Chest X-Ray 06/06/24 07:37 Impression: Left lower lobe pneumonia.
[2024-06-07] MEDS: CENTRAL LINE FLUSH 10 ML IV PUSH (16:10)
[2024-06-07 20:00] VITALS: PULSE 60; RESP 24; TEMP 37.6; O2SAT 94
--- OUTSIDE RECORDS SUMMARY | 2024-06-08 06:07 | XMS_ITS | Encounter Summary ---
Author Organization [facility] Address [facility] [place] [address] [place] [address] Care Team Providers Care Cyber Security Name Role Phone Abdon Villela MD Primary Care Provider [phone] Madan Palomo MD Unavailable [phone] Norma Rowland PA-C Unavailable [phone] Encounter Details Date Type Department Care Team (Latest Contact Info) Description 05/16/2024 Travel Social History Tobacco Use Types Packs/Day Years Used Date Smoking Tobacco: Former Cigarettes 1 29.6 0 02/14/1966 - 10/07/1995 Pipe Smokeless Tobacco: Never Alcohol Use Standard Drinks/Week Comments No 0 (1 standard drink = 0.6 oz pur e alcohol) [facility] Utilities Answer Date Recorded In the past 12 months has [facility] CMP[employer]LY, gas, oil, or water [employer] threatened to shut off services in your home? No 05/17/2024 Humiliation, Afraid, Rape, and Kick questionnair e Answer Date Recorded Within the last year, have y ou been afraid of your partner or ex-partner? No 05/17/2024 Within the last year, have y ou been humiliated or emotionally abused in other ways by your partner or ex-partner? No Within the last year, have y ou been kicked, hit, slapped, or otherwise physically hurt by your partner or ex-partner? No 05/17/2024 Within the last year, have y ou been raped or forced to have any kind of sexual activity by your partner or ex-partner? No 05/17/2024 Social Connection and Isolation Panel [NHANES] A nswer Date Recorded In a typical week, how many times do you talk on the phone with family, friends, or neighbors? Never 07/27/2023 How often do you get together with friends or re latives? Never 07/27/2023 How often do you attend shinto or rastafari serv ices? Never 07/27/2023 Do you belong to any clubs o r organizations such as shinto groups, unions, fraternal or athletic groups, or school groups? No 07/27/2023 How often do you attend meet ings of the clubs or organizations you belong to? Never 07/27/2023 Are you , , di vorced, , never , or living with a partner? 07/27/2023 AUDIT-C Answer Date Recorded Q1: How often do you have a drink containing alcohol? Never 07/27/2023 Q2: How many drinks containi ng alcohol do you have on a typical day when you are drinking? Patient does not drink Q3: How often do you have si x or more drinks on one occasion? Never 07/27/2023 Overall Financial Resource Strain (CARDIA) Answe r Date Recorded How hard is it for you to pa y for the very basics like food, housing, medical care, and heating? Not hard at all 05/17/2024 [facility]ational Stress Questionnaire Answer Date Recorded Do you feel stress - tense, restless, nervous, or anxious, or unable to sleep at night because your mind is troubled all the time - these days? Not at all 07/27/2023 Hunger Vital Sign Answer Date Recorded Within the past 12 months, y ou worried that your food would run out before you got the money to buy more. Never true 05/17/20 24 Within the past 12 months, t he food you bought just didn't last and you didn't have money to get more. Never true 05/17/2024 PRAPARE - Transportation Answer Date Re corded In the past 12 months, has l ack of transportation kept you from medical appointments or from getting medications? No 04/23 In the past 12 months, has l ack of transportation kept you from meetings, work, or from getting things needed for daily living? No 05/17/2024 Housing Stability Vital Sign Answer Malik e Recorded In the last 12 months, was t here a time when you were not able to pay the mortgage or rent on time? No 07/27/2023 In the last 12 months, how many places have you lived? 2 07/27/2023 In the last 12 months, was t here a time when you did not have a steady place to sleep or slept in a usp (including now)? No 07/27/2023 Housing Stability Vital Sign Answer Malik e Recorded In the last 12 months, was t here a time when you were not able to pay the mortgage or rent on time? No 05/17/2024 In the past 12 months, how m any times have you moved where you were living? 0 05/17/2024 At any time in the past 12 m [facility], were you homeless or living in a usp (including now)? No 05/17/2024 Sex and Gender Information Value Date Recorded Sex Assigned at Not on file Legal Sex Male 8:13 PM CDT Gender Identity Not on file Sexual Orientation Not on file Occupation Industry Job Start Date Job End Date Not on file Not on file Not on file Not on file documented as of this encounter Functional Status * Are you deaf or do you have serious difficulty hearing Answer Date of Assessment Author Status No 07/27/2023 10:44 AM VOCATIONAL TEACHER Zamzam Zavala R N Active * Are you blind or do you have serious difficulty seeing, even when wearing glasses? Answer Date of Assessment Author Status No 07/27/2023 10:44 AM VOCATIONAL TEACHER Apke Zamzam A, R N Active * Do you have serious difficulty walking or climbing stairs? Answer Date of Assessment Author Status Yes 07/27/2023 10:44 AM VOCATIONAL TEACHER ApkeOlgayl A, R N Active * Do you have difficulty dressing or bathing? Answer Date of Assessment Author Status Yes 07/27/2023 10:44 AM VOCATIONAL TEACHER Apke Zamzam A, R N Active * Because of a physical, mental, or emotional condition, do you have difficulty doing errands alone such as visiting a doctor's office or shopping? Answer Date of Assessment Author Status Yes 07/27/2023 10:44 AM VOCATIONAL TEACHER Zamzam Zavala R N Active documented as of this encounter Mental Status * Question Answer Entry Date Author Status Because of a physical, mental, or emotional condition, do you have serious difficulty concentrating, remembering, or making decisions? Yes 05/16/2024 11:03 PM VOCATIONAL TEACHER Hector Buchanan RN Active * Because of a physical, mental, or emotional condition, do you have serious difficulty concentrating, remembering, or making decisions? Answer Entry Date Author Status No 07/27/2023 10:44 AM VOCATIONAL TEACHER Zamzam Zavala R N Active documented in this encounter Plan of Treatment Upcoming Encounters Date Type Department Care Team (Latest Contact Info) Description 06/09/2024 2:20 PM VOCATIONAL TEACHER Telemedicine [facility] Multispecialty [facility] [address] [place] [address] Earnest Drake MD [address] [place] [address] 06/21/2024 1:30 AM VOCATIONAL TEACHER Allied Health/Nurse Visit [facility] [address] [place] [phone] Madan Palomo MD [address] [place] [address] 03/01/2025 11:00 AM CDT Allied Health/Nurse Visit [facility] [place] [address] [place] [phone] Norma Rowland PA-C [address] [place] [address] 03/01/2025 11:00 AM CDT Office Visit [facility] [place] [address] Norma Rowland PA-C [address] [place] [address] documented as of this encounter Visit Diagnoses Not on filedocumented in this encounter Additional Health Concerns Infection Onset Date Last Indicated Resolved Time COVID-19 Rule Out 05/16/2024 05/16/2024 05/16/2024 12:28 PM VOCATIONAL TEACHER documented as of this encounter Care Teams Cyber Security Relationship Specialty Start Date End Date Abdon Villela MD [address] [place] [address] PCP - General FAMILY PRACTICE 12/17/15 Madan Palomo MD [address] [place] [id number] EP Assessment Consultant CLINICAL CARDIAC ELECTROPHYSIOLOGY 10/08/21 Norma Rowland PA-C [address] [place] [id number] Referring Physician PHYSICIAN OUTSIDE DEALER SALES REPRESENTATIVE 12/31/23 documented as of this encounter
--- OUTSIDE RECORDS SUMMARY | 2024-06-08 06:07 | XMS_ITS | Encounter Summary ---
Author Organization [facility] Address [facility] [facility] [place] [address] [place] [address] Care Team Providers Care Carton Filling Machine Operator Name Role Phone Abdon Villela MD Primary Care Provider [phone] Madan Palomo MD Unavailable [phone] Norma Rowland PA-C Unavailable [phone] Encounter Details Date Type Department Care Team (Latest Contact Info) Description 06/03/2024 Travel Social History Tobacco Use Types Packs/Day Years Used Date Smoking Tobacco: Former Cigarettes 1 29.6 0 02/14/1966 - 10/07/1995 Pipe Smokeless Tobacco: Never Alcohol Use Standard Drinks/Week Comments No 0 (1 standard drink = 0.6 oz pur e alcohol) [facility] Utilities Answer Date Recorded In the past 12 months has [facility] [employer], gas, oil, or water [employer] threatened to shut off services in your [...] Never 07/27/2023 How often do you attend muslim or roman catholic serv ices? Never 07/27/2023 Do you belong to any clubs o r organizations such as muslim groups, unions, fraternal or athletic groups, or [...] and heating? Not hard at all 05/17/2024 [facility] Occupational Stress Questionnaire Answer Date [...] place to sleep or slept in a intermediate (including now)? No 07/27/2023 Housing Stability Vital Sign Answer Malik e Recorded In the last 12 months, was t here a time when you were not able to pay the mortgage or rent on time? No 05/17/2024 In the past 12 months, how m any times have you moved where you were living? 0 05/17/2024 At any time in the past 12 m [facility], were you homeless or living in a intermediate (including now)? No 05/17/2024 Sex and Gender [...] Answer Date of Assessment Author Status No 05/17/2024 3:11 AM Hector Lyn RN Active * Are you blind or do you have serious difficulty seeing, even when wearing glasses? Answer Date of Assessment Author Status No 05/17/2024 3:11 AM Hector Lyn RN Active * Do you have serious difficulty walking or climbing stairs? Answer Date of Assessment Author Status Yes 05/17/2024 3:11 AM Hector Lyn RN Active * Do you have difficulty dressing or bathing? Answer Date of Assessment Author Status Yes 05/17/2024 3:11 AM Hector Lyn RN Active * Because of a physical, mental, or emotional condition, do you have difficulty doing errands alone such as visiting a doctor's office or shopping? Answer Date of Assessment Author Status Yes 05/17/2024 3:11 AM SLEEVE SEWER Hector Buchanan RN Active documented as of this encounter Mental Status * Because of a physical, mental, or emotional condition, do you have serious difficulty concentrating, remembering, or making decisions? Answer Entry Date Author Status Yes 05/17/2024 3:11 AM SLEEVE SEWER Hector Buchanan RN Active documented in this encounter Plan of Treatment Upcoming Encounters Date Type Department Care Team (Latest Contact Info) Description 06/09/2024 2:20 PM SLEEVE SEWER Telemedicine [facility] Multispecialty [facility] [address] [place] [id number] Earnest Drake MD [address] [place], [place] [id number] 06/21/2024 1:30 AM SLEEVE SEWER Allied Health/Nurse Visit [facility] [address] [place] [address] Madan Palomo MD [address] [place] [address] 03/01/2025 11:00 AM CDT Allied Health/Nurse Visit [facility] [place] [address] [place] [address] Norma Rowland PA-C [address] [place] [address] 03/01/2025 11:00 AM CDT Office Visit [facility] [place] [address] [place] [address] Norma Rowland PA-C [address] [place] [address] documented as of this encounter Visit Diagnoses Not on filedocumented in this encounter Additional Health Concerns Infection Onset Date Last Indicated Resolved Time ESBL - Extended Spectrum Beta-lactamase 06/01/2024 06/03/2024 COVID-19 Rule Out 06/03/2024 06/03/2024 06/04/2024 5:43 PM SLEEVE SEWER documented as of this encounter Care Teams Carton Filling Machine Operator Relationship Specialty Start Date End Date Abdon Villela MD [address] [facility] [address] PCP - General FAMILY PRACTICE 12/17/15 Madan Palomo MD [address] [place] [address] EP Communications Equipment Installer CLINICAL CARDIAC ELECTROPHYSIOLOGY 10/08/21 Norma Rowland PA-C [address] [place] [address] Referring Physician PHYSICIAN TAG STRINGER 12/31/23 documented as of this encounter
--- OUTSIDE RECORDS SUMMARY | 2024-06-08 06:07 | XMS_ITS | Encounter Summary ---
Author Organization [facility] Address [facility] [address] [place] [address] Care Team Providers Care Environmental Law Professor Name Role Phone Abdon Villela MD Primary Care Provider [phone]- [phone] Madan Palomo MD Unavailable [phone] Norma Rowland PA-C Unavailable + [phone] Reason for Referral * Imaging (Urgent) - New Request Specialty Diagnoses / Procedures Referred By Contac t Referred To Contact RADIOLOGY Procedures CT CHEST+ABD+PEL W CON Lionel Banegas DO [address] [place] [address] Phone: tel: fax: Referral ID Status Reason Start Date Expiration Date V isits Requested Visits Authorized [id number] New Request 06/03/2024 06/03/2025 1 1 STRENGTH INSPECTOR * Imaging (Urgent) - New Request Specialty Diagnoses / Procedures Referred By Contac t Referred To Contact RADIOLOGY Procedures CT HEAD WO Lionel Morley DO [address] [place] [address] Phone: tel: fax: Referral ID Status Reason Start Date Expiration Date V isits Requested Visits Authorized [id number] New Request 06/03/2024 06/03/2025 1 1 STRENGTH INSPECTOR Reason for Visit * Reason Comments Altered Mental Status Encounter Details Date Type Department Care Team (Late st Contact Info) Description 06/03/2024 6:18 PM ACID STRENGTH INSPECTOR - 06/04/2024 9:50 AM ACID STRENGTH INSPECTOR Emergency [place] [facility] [address] [place] [address] Lionel Banegas DO [address] [place] [address] Altered Mental Status Discharge Disposition: Transfer to Acute Care Hospital Social History Tobacco Use Types Packs/Day Years Used Date Smoking Tobacco: Former Cigarettes 1 29.6 0 02/14/1966 - 10/07/1995 Pipe Smokeless Tobacco: Never Alcohol Use Standard Drinks/Week Comments No 0 (1 standard drink = 0.6 oz pur e alcohol) [facility] Utilities Answer Date Recorded In the past 12 months has e [employer], gas, oil, or water [employer] threatened to shut off services in your [...] Never 07/27/2023 How often do you attend samaritan or presybeterian serv ices? Never 07/27/2023 Do you belong to any clubs o r organizations such as samaritan groups, unions, fraternal or athletic groups, or [...] and heating? Not hard at all 05/17/2024 [facility] - Occupational Stress Questionnaire Answer Date Recorded [...] place to sleep or slept in a longterm (including now)? No 07/27/2023 Housing Stability Vital Sign Answer Malik e Recorded In the last 12 months, was t here a time when you were not able to pay the mortgage or rent on time? No 05/17/2024 In the past 12 months, how m any times have you moved where you were living? 0 05/17/2024 At any time in the past 12 m [facility], were you homeless or living in a longterm (including now)? No 05/17/2024 Sex and Gender Information Value Date Recorded Sex Assigned at Not on file Legal Sex Male 8:13 PM CDT Gender Identity Not on file Sexual Orientation Not on file Occupation Industry Job Start Date Job End Date Not on file Not on file Not on file Not on file documented as of this encounter Last Filed Vital Signs Vital Sign Reading Time Taken Comments Blood Pressure 151/89 06/04/2024 9:44 AM ACID STRENGTH INSPECTOR Pulse 61 06/04/2024 9:44 AM ACID STRENGTH INSPECTOR Temperature 36.7 ??C (98 ??F) 06/04/2024 9:44 AM ACID STRENGTH INSPECTOR Respiratory Rate 25 06/04/2024 9:44 AM ACID STRENGTH INSPECTOR Oxygen Saturation 95% 06/04/2024 9:44 AM ACID STRENGTH INSPECTOR Inhaled Oxygen Concentration - - Weight 63.5 kg (140 lb) 06/03/2024 6:15 PM ACID STRENGTH INSPECTOR Height 182.9 cm (6') 06/03/2024 6:15 PM ACID STRENGTH INSPECTOR Body Mass Index 18.99 06/03/2024 6:15 PM ACID STRENGTH INSPECTOR documented in this encounter Functional Status * Are you deaf or do you have serious difficulty hearing Answer Date of Assessment Author Status No 05/17/2024 3:11 AM ACID STRENGTH INSPECTOR Hector Buchanan RN Active * Are you blind or [...] 05/17/2024 3:11 AM Hector Lyn RN Active documented as of this encounter Mental Status * Because of a physical, mental, or emotional condition, do you have serious difficulty concentrating, remembering, or making decisions? Answer Entry Date Author Status Yes 05/17/2024 3:11 AM Hector Lyn RN Active documented in this encounter Medications at Time of Discharge acetaminophen (TYLENOL) 500 MG tablet Take 2 tablets (1,000 mg total) by mouth every 6 (six) hours as needed for Pain. apixaban (ELIQUIS) 5 MG tablet Take 1 tablet (5 mg total) by mouth 2 (two) times daily. 60 tablet 5 09/19/2022 carvedilol (COREG) 6.25 MG tablet Take 1 tablet (6.25 mg total) by mouth 2 (two) times daily. 90 tablet 3 03/02/2024 DAPTOmycin 600 mg in sodium chloride 0.9 % SOLN 100 mLIndications:Sep sis, due to unspecified organism, unspecified whether acute organ dysfunction present ([facility]/HCC [facility]) Inject 600 mg into the vein daily for 37 days. 1 ampule 05/25/2024 07/01/2024 ferrous sulfate EC 325 (65 Fe) MG tablet Take 1 tablet by mouth daily. finasteride (PROSCAR) 5 MG tablet Take 1 tablet (5 mg total) by mouth daily. furosemide (LASIX) 40 MG tablet Take 1 tablet (40 mg total) by mouth daily. 30 tablet 08/01/2023 lisinopril (PRINIVIL) 5 MG tablet Take 1 tablet (5 mg total) by mouth daily. 90 tablet 3 03/02/2024 loperamide (IMODIUM) 2 MG capsule Take 1 capsule (2 mg total) by mouth 4 (four) times daily as needed for Diarrhea. magnesium oxide (MAG-OX) 400 (240 Mg) MG tablet Take 1 tablet (400 mg total) by mouth 2 (two) times daily. 30 tablet 05/25/2024 metFORMIN 1000 MG tablet Take 1 tablet (1,000 mg total) by mouth 2 (two) times daily. 09/13/2014 nitroglycerin (NITROSTAT) 0.[address] 1 tablet (0.4 mg total) under the tongue every 5 (five) minutes as needed for Chest Pain. polyethylene glycol powder Take 17 g by mouth daily as needed (constipation ). 06/11/2018 potassium chloride CR (KLOR-CON M) 20 MEQ tablet Take 1 tablet (20 mEq total) by mouth daily. 60 tablet 08/01/2023 vitamin B-12 (CYANOCOBALAMIN) 1000 MCG tablet Take 1 tablet (1,000 mcg total) by mouth daily. documented as of this encounter ED Notes * Nikki Carpenter RN - 06/04/2024 9:50 AM CST Pt's son, Amadeo is notified that pt has been transferred to [facility] in [place]. STRENGTH INSPECTOR * Nikki Carpenter RN - 06/04/2024 7:33 AM CST Call is placed to petroleum inspector supervisor Garland at [facility]. He states pt has been accepted,they are waiting for a bed to open up and be cleaned, and he expects it soon. STRENGTH INSPECTOR * Nikki Carpenter RN - 06/04/2024 6:54 AM CST Report rec'd from JACOB Mosher STRENGTH INSPECTOR * Vidhi Busby RN - 06/04/2024 6:46 AM CST Yue with [facility] updated on pt transfer to [facility]. STRENGTH INSPECTOR * Vidhi Busby RN - 06/04/2024 6:17 AM CST Pt accepted to [facility] by Dr. Aguilar. STRENGTH INSPECTOR * Vidhi Busby RN - 06/04/2024 6:06 AM CST Domenica with [facility] called back stating [facility] in [place] does have ICU beds available. More information given and facesheet faxed. Awaiting a call back. STRENGTH INSPECTOR * Hermelinda Ramesh RN - 06/04/2024 6:04 AM CST [facility] called for patient transfer, they state that they will reach out to their hospitalist for IMC bed placement. STRENGTH INSPECTOR * Vidhi Busby RN - 06/04/2024 5:52 AM CST [facility] called. No ICU beds available at this time. Pt placed on wait listed at [facility]. STRENGTH INSPECTOR STRENGTH INSPECTOR * Vidhi Busby RN - 06/04/2024 5:50 AM CST [facility] called for potential transfer to [facility] in [place]. Awaiting a call back. STRENGTH INSPECTOR * Jasiel Martinez RN - 06/03/2024 9:22 PM CST Call made to son on file. Nurse (radio news writer) spoke to son and of son (Mita Crocker). Update was given on P.t's condition. Family stated P.t. was a DNR over a year ago but there are no records on file and records are unavailable. Son and of son stated P.t. does not have a POA. Family did statethey are interested in becoming POA and making medical decisions for P.t. Family stated they are interested in talking to returned case inspector in regards to the process and doing what is best for the P.t. Family asked for updates of P.t's condition. MD notified and aware. STRENGTH INSPECTOR * Sammie Quijano RN - 06/03/2024 6:12 PM CST To ED Per EMS from [facility] rehab. intermediate reports increasing lethargy today. Patient was unresponsive for staff at [facility] and EMS. STRENGTH INSPECTOR * Lionel Banegas DO - 06/03/2024 6:09 PM CST Chief Complaint Chief Complaint Patient presents with ??? Altered Mental Status History of Present Illness 79-year-old male with a history of dementia presents to the emergency department via EMS [facility] secondary to unresponsiveness. EMS personnel report the patient responded to no stimuli including sternal rub. No other information available acutely. Patient was seen in this emergency department 2 days ago with a complaint of chest pain. Patient on IV daptomycin due to staph bacteremia. Patient had recent incarcerated ventral hernia that was reduced in the emergency department and sepsis secondary to urinary origin. History provided by: Patient, medical records and EMS personnel History limited by: Mental status change and dementia diplomatic interpreter/translator used: No Medical History ALLERGIES: Review of patient's allergies indicates: Allergen Reactions ??? Tomato Diarrhea MEDICATIONS: Prior to Admission medications Medication Sig Start Date End Date Taking? Authorizing Provider acetaminophen (TYLENOL) 500 MG tablet Take 2 tablets (1,000 mg total) by mouth every 6 (six) hours as needed for Pain. Default History Genericprovider apixaban (ELIQUIS) 5 MG tablet Take 1 tablet (5 mg total) by mouth 2 (two) times daily. 09/19/22 Madan Palomo MD carvedilol (COREG) 6.25 MG tablet Take 1 tablet (6.25 mg total) by mouth 2 (two) times daily. 03/02/24 Madan Palomo MD DAPTOmycin 600 mg in sodium chloride 0.9 % SOLN 100 mL Inject 600 mg into the vein daily for 37 days. 05/25/24 07/01/24 Nancy Aviles APRN ferrous sulfate EC 325 (65 Fe) MG tablet Take 1 tablet by mouth daily. Default History Genericprovider finasteride (PROSCAR) 5 MG tablet Take 1 tablet (5 mg total) by mouth daily. Default History Genericprovider furosemide (LASIX) 40 MG tablet Take 1 tablet (40 mg total) by mouth daily. 08/01/23 Sandra Short NP lisinopril (PRINIVIL) 5 MG tablet Take 1 tablet (5 mg total) by mouth daily. 03/02/24 Madan Palomo MD loperamide (IMODIUM) 2 MG capsule Take 1 capsule (2 mg total) by mouth 4 (four) times daily as needed for Diarrhea. Default History Genericprovider magnesium oxide (MAG-OX) 400 (240 Mg) MG tablet Take 1 tablet (400 mg total) by mouth 2 (two) timesdaily. 05/25/24 Nancy Aviles APRN metFORMIN 1000 MG tablet Take 1 tablet (1,000 mg total) by mouth 2 (two) times daily. 09/13/14 [facility] nitroglycerin (NITROSTAT) 0.[address] 1 tablet (0.4 mg total) under the tongue every 5 (five) minutes as needed for Chest Pain. Default History Genericprovider polyethylene glycol powder Take 17 g by mouth daily as needed (constipation). 06/11/18 [facility] potassium chloride CR (KLOR-CON M) 20 MEQ tablet Take 1 tablet (20 mEq total) by mouth daily. 08/01/23 Sandra Short NP vitamin B-12 (CYANOCOBALAMIN) 1000 MCG tablet Take 1 tablet (1,000 mcg total) by mouth daily. Default History Genericprovider PAST MEDICAL HISTORY: Past Medical History: Diagnosis Date ??? A-fib (CMS/HCC HHS/HCC) ??? BPH (benign prostatic hyperplasia) ??? CHF (congestive heart failure) (CMS/HCC HHS/HCC) ??? Coronary artery disease ??? Dementia without behavioral disturbance (CMS/HCC HHS/HCC) ??? Diabetes mellitus (CMS/HCC HHS/HCC) ??? Disorder of prostate ??? HLD (hyperlipidemia) ??? Hyperlipidemia ??? Hypertension ??? Incarcerated hernia 05/09/2024 Reduced in ED ??? Pacemaker 09/10/2022 ??? Respiratory failure (CMS/HCC HHS/HCC) ??? Sick sinus syndrome (CMS/HCC HHS/HCC) ??? Urinary retention PAST SURGICAL HISTORY: Past Surgical History: Procedure Laterality Date ??? CORONARY ART DIL,ONE VESSEL 2010 ??? INSER COBIAN PACER XVENOUS ATRIAL 05/04/2013 ??? PACEMAKER FAMILY HISTORY: Family History Problem Relation Name Age of Onset ??? Heart Attack Mother SOCIAL HISTORY: Social History Tobacco Use ??? Smoking status: Former Current packs/day: 0.00 Average packs/day: 1 pack/day for 29.6 years (29.6 ttl pk-yrs) Types: Cigarettes, Pipe Start date: 02/14/1966 Quit date: 10/07/1995 Years since quittin.6 ??? Smokeless tobacco: Never Substance Use Topics ??? Alcohol use: No ??? Drug use: No Review of Systems Review of Systems Unable to perform ROS: Mental status change Physical Exam Filed Vitals: 06/03/24 2100 06/03/24 2130 06/03/24 2220 06/03/24 2300 BP: 106/59 97/55 104/64 (!) 85/52 Pulse: 60 60 71 60 Resp: Temp: TempSrc: SpO2: (!) 88% (!) 86% 93% 97% Weight: Height: Physical Exam Vitals and nursing note reviewed. Constitutional: General: He is not in acute distress. Appearance: He is well-developed. He is not diaphoretic. Comments: Cachectic HENT: Head: Normocephalic and atraumatic. Eyes: Conjunctiva/sclera: Conjunctivae normal. Cardiovascular: Rate and Rhythm: Normal rate and regular rhythm. Heart sounds: Normal heart sounds. No murmur heard. Pulmonary: Effort: Pulmonary effort is normal. No respiratory distress. Breath sounds: Normal breath sounds. No wheezing or rales. Abdominal: General: Bowel sounds are normal. There is no distension. Palpations: Abdomen is soft. Tenderness: There is no abdominal tenderness. Musculoskeletal: Right lower leg: No edema. Left lower leg: No edema. Neurological: GCS: GCS eye subscore is 2. GCS verbal subscore is 2. GCS motor subscore is 5. Comments: Responsive to sternal rub Diagnostic Studies / Procedures ELECTROCARDIOGRAMS: Results for orders placed or performed during the hospital encounter of 06/03/24 ECG 12 lead Narrative [place] [id number] [address] Test Date: 2024-06-03 Pat Name: ANNIE CROCKER Department: 3 Room: Gender: Male Engine Testing Supervisor: : 1945 Requested By: LIONEL BANEGAS Order Number: [id number] Reading MD: Josseline Cordero Measurements Intervals [place] Rate: 60 P: AK: 0 QRS: -90 QRSD: 175 T: 85 QT: 489 QTc: 489 Interpretive Statements ELECTRONIC VENTRICULAR PACEMAKER ABNORMAL RHYTHM ECG STRENGTH INSPECTOR LABORATORY STUDIES: Results for orders placed or performed during the hospital encounter of 06/03/24 CBC W/DIFF AUTOMATED Result Value Ref Range WBC 16.07 (H) 4.00 - 10.80 x10'3/uL RBC 4.15 (L) 4.50 - 6.10 x10'6/uL HGB 10.9 (L) 13.0 - 18.0 G/DL HCT 36.1 (L) 37.0 - 52.0 % MCV 87.0 78.0 - 100.0 FL MCH 26.3 (L) 27.0 - 31.0 PG MCHC 30.2 (L) 33.0 - 36.0 G/DL RDW 16.8 (H) 11.5 - 14.5 % PLT 279 150 - 350 x10'3/uL MPV 11.0 (H) 7.4 - 10.4 FL CBC COMMENT NORMAL REFERENCE RANGE NOT ESTABLISHED FOR THE PROPORTIONAL LEUKOCYTE DIFFERENTIAL. NEUTROPHILS % 87.2 % LYMPHOCYTES % 8.2 % MONOCYTES % 4.1 % EOSINOPHILS % 0.0 % BASOPHILS % 0.1 % IMMATURE GRANS % 0.4 % NRBC % 0.0 % ABS. NEUTROPHILS 14.02 (H) 1.60 - 8.30 x10'3/uL ABS. LYMPHOCYTES 1.31 0.80 - 4.70 x10'3/uL ABS. MONOCYTES 0.66 0.00 - 1.50 x10'3/uL ABS. EOSINOPHILS 0.00 0.00 - 0.40 x10'3/uL ABS. BASOPHILS 0.02 0.00 - 0.20 x10'3/uL ABS. IMMATURE GRANULOCYTES 0.06 (H) 0.00 - 0.03 x10'3/uL ABS. NUCLEATED RBC'S 0.00 0.00 - 0.01 x10'3/uL COMPREHENSIVE METABOLIC PANEL Result Value Ref Range SODIUM S/P/B 143 136 - 145 MMOL/L POTASSIUM S/P/B 4.2 3.5 - 5.1 MMOL/L CHLORIDE S/P/B 103 98 - 107 MMOL/L CO2 30.7 21.0 - 32.0 MMOL/L GLUCOSE 242 (H) 70 - 99 MG/DL BUN 46 (H) 6 - 24 MG/DL CREATININE S/P/B 1.20 0.70 - 1.30 MG/DL CALCIUM S/P/B 9.1 8.4 - 10.5 MG/DL BILIRUBIN TOTAL S/P/B 0.8 0.2 - 1.0 MG/DL ALKALINE PHOSPHATASE S/P/B 84 45 - 115 U/L AST 18 15 - 37 U/L ALT 22 16 - 63 U/L TOTAL PROTEIN S/P/B 7.1 6.4 - 8.2 G/DL ALBUMIN S/P/B 2.4 (L) 3.4 - 5.0 G/DL ANION GAP 9.3 5.0 - 15.0 MMOL/L OSMOLALITY (CALC) 316 MOSM/KG GFR ESTIMATE 61 (L) >89 ML/MIN/1.73 M2 GFR NOTES GFR REFERENCES: DRUG SCREEN RAPID Result Value Ref Range CANNABINOIDS SCREEN (U) NEGATIVE NEGATIVE PHENCYCLIDINE PCP (U) NEGATIVE NEGATIVE COCAINE METABOLITES (U) NEGATIVE NEGATIVE METHAMPHETAMINE SCREEN (U) NEGATIVE NEGATIVE OPIATE SCREEN (U) NEGATIVE NEGATIVE AMPHETAMINE SCREEN (U) NEGATIVE NEGATIVE BENZODIAZEPINES SCREEN (U) NEGATIVE NEGATIVE TRICYCLIC ANTIDEPRESSANT SCREEN (U) NEGATIVE NEGATIVE METHADONE (U) NEGATIVE NEGATIVE BARBITURATES SCREEN (U) NEGATIVE NEGATIVE OXYCODONE SCREEN (U) NEGATIVE NEGATIVE URINE TOX COMMENT THIS TEST METHODOLOGY IS DESIGNED AND OFFERED A RAPID TURNAROUND, QUALITATIVE SCREENING PROCEDURE TO AID IN THE IMMEDIATE MEDICAL ASSESSMENT OF PATIENTS SUSPECTED OF SUBSTANCE ABUSE. ETHANOL Result Value Ref Range ALCOHOL S/P/B <0.003 <0.003 G/DL URINALYSIS Result Value Ref Range COLOR (U) YELLOW TRANSPARENCY CLEAR SPECIFIC GRAVITY (U) 1.025 1.000 - 1.025 U PH 5.0 5.0 - 8.0 LEUKOCYTES (U) 1+ (A) NEGATIVE NITRITES POSITIVE (A) NEGATIVE PROTEIN RANDOM (U) 1+ (A) NEGATIVE GLUCOSE (U) NEGATIVE NEGATIVE KETONES MG/DL (U) NEGATIVE NEGATIVE UROBILINOGEN 0.2 <1.0 EU/DL BILIRUBIN (U) NEGATIVE NEGATIVE BLOOD (U) 1+ (A) NEGATIVE WBC/HPF 0-5 0 - 5 /HPF RBC/HPF 0-5 0 - 5 /HPF BACTERIA (U) 2+ /HPF MUCUS PRESENT LACTIC ACID W REFLEX (SEPSIS) Result Value Ref Range LACTIC ACID VENOUS 2.0 0.4 - 2.0 MMOL/L POCT glucose Result Value Ref Range GLUCOSE POC 163 (H) 70 - 99 MG/DL IMAGING STUDIES CT CHEST+ABD+PEL W CON Final Result by User, [id number] (06/03 2031) [address] [place] [address] INDICATION: sepsis, source unclear, altered mental status, leukocytosis COMPARISON: Chest radiograph, 01 Jun 2024 TECHNIQUE: CT images of the chest, abdomen, and pelvis were obtained following the administration of IV contrast. Radiation dose reduction technique utilized. FINDINGS: CHEST: Cardiac pacemaker device in left chest wall with leads in the right atrium and both ventricles. Cardiac chambers within normal size limits. Moderate coronary atherosclerosis. No significant pericardial effusion. Aortic valvular calcification. Nonaneurysmal thoracic aorta. Some scattered prominent mediastinal lymph nodes are not enlarged by size criteria. Benign-appearing calcifications left hilar lymph nodes. No axillary lymphadenopathy. No suspicious thyroid nodule. Esophagus within normal limits. Trachea and central airways are patent. No pneumothorax. No pleural effusion. Benign calcified pulmonary granulomata. Several consolidations in the right lower lobe, with additional tree-in-bud opacities in the lower lobes bilaterally. Mild elevation of the right hemidiaphragm. ABDOMEN/PELVIS: Evaluation of the upper abdomen is somewhat degraded by respiratory motion and beam hardening artifact from positioning of upper extremities. Normal sized liver. Limited assessment of the hepatic parenchyma. Gallbladder within normal limits. Interposition of the ascending/proximal transverse colon anterior to the liver, anatomic variant. Main portal vein and SMV enhance. Atherosclerosis of the abdominal and pelvic vasculature. No retroperitoneal lymphadenopathy. No evidence of bowel obstruction or inflammation. Cecum in the right upper quadrant, with a normal appearing appendix coursing along the inferior hepatic border. No free gas in the abdomen or pelvis. No mesenteric lymphadenopathy. Trace diffuse mesenteric edema. Mild anasarca, more pronounced inferiorly. Stomach and duodenum within normal limits. Limited assessment of the spleen. Incidental note of a small splenule. Limited assessment of the pancreas. Adrenal glands appear within normal limits. Symmetric renal enhancement, though evaluation of the renal parenchyma is degraded. No visualized probable benign cyst on the superior pole of the right kidney, though evaluation is limited, no dedicated follow-up recommended. No hydronephrosis or hydroureter. Urinary bladder is decompressed with Guerra catheter present. Small volume intraluminal gas within the urinary bladder secondary to instrumentation. Prostatomegaly, measuring 6.5 cm transversely. Incidental note of benign pelvic phleboliths. No pelvic lymphadenopathy. MSK: Chronic degenerative changes of the hips, pubic symphysis, and sacroiliac joints. Six lumbar type vertebral bodies, anatomic variant. Chronic multilevel degenerative changes of the spine. Chronic degenerative changes of the glenohumeral joints and acromioclavicular joints. IMPRESSION: 1. Several consolidations in the right lower lobe, with tree-in-bud opacities lower lobes bilaterally. Findings compatible with multifocal pneumonia. 2. Trace diffuse mesenteric edema and mild anasarca, suggesting volume overload. 3. Limited evaluation of the upper abdominal structures, secondary to motion. 4. Other chronic/nonurgent findings, as above. Referred By: Interpreted By: Rj Mendoza MD, 06/03/2024 8:[address] HEAD WO CON Final Result by User, [id number] (06/03 1917) [address] [place] [address] EXAMINATION: CT head without contrast HISTORY: Altered mental status. Unresponsiveness. COMPARISON: CT head 01/17/2023. TECHNIQUE: Axial CT images of the head without use of intravenous contrast. A dose lowering technique was used for this procedure, which may include, but is not limited to, dose reduction technique, automated exposure control, the use of degenerative reconstruction, and ALARA/image gently techniques. FINDINGS: No evidence of acute intracranial hemorrhage. No mass effect or midline shift. No evidence of subdural or epidural hematoma. There is a chronic appearing area of hypoattenuation within the right frontal lobe adjacent to the anterior horn of the right lateral ventricle. This appears similar to the prior examination. This could be related to prior infarction or chronic small vessel ischemic change. There is generalized cerebral atrophy. No hydrocephalus. There are at least mild scattered chronic small vessel ischemic changes within the bilateral white matter. CT is insensitive in the evaluation of acute ischemia. If the patient's symptoms persist or worsen, further evaluation with MRI would be recommended. There are choroid plexus and pineal gland calcifications. There are atherosclerotic vascular calcifications. No acute appearing orbital abnormalities. The paranasal sinuses and mastoid air cells are clear. No acute osseous abnormalities are identified. IMPRESSION: 1. No acute intracranial abnormalities identified. 2. Generalized cerebral atrophy. At least mild chronic small vessel ischemic changes within the white matter. Ordered By: LIONEL BANEGAS Interpreted By: Bartolome Dillard DO, 06/03/2024 7:10 PM ED Course / Medical Decision Making Medical Decision Making Patient arrived via EMS due to unresponsiveness. Patient able to localize pain and moves spontaneously upon arrival. Patient currently on extended course of daptomycin by IV due to sepsis with MSSA. Questionable source based on notes from last hospitalization on 05/16/2024. CT of chest abdomen pelvis performed shows bilateral lower lobe infiltrates. Patient initially started on IV Rocephin and azithromycin given previous antibiotics that have been used. Patient discussed with receiving hospitalist at [facility] in [place] for requests IV Zosyn and vancomycin. Patient had some mild hypotension with blood pressures ranging from 85/52 to 116/66. Normal saline boluses given for stab ilization. Patient not requiring any supplemental oxygen. Amount and/or Complexity of Data Reviewed Independent Historian: EMS Labs: ordered. Decision-making details documented in ED Course. Radiology: ordered and independent interpretation performed. Decision-making details documented in ED Course. ECG/medicine tests: ordered and independent interpretation performed. Decision- making details documented in ED Course. Details: Ventricular pacemaker, rate = 60, regular Discussion of management or test interpretation with external provider(s): Transfer plan discussed and agreeable with receiving hospitalist Risk Prescription drug management. Decision regarding hospitalization. ED Course as of 06/04/24 0325 ThuJun 03, 2024 184 WBC(!): 16.07 [JW] 1844 HGB(!): 10.9 [JW] 1900 GLUCOSE(!): 242 [JW] 1900 CREATININE S/P/B: 1.20 [JW] 1899 BUN(!): 46 [JW] 1900 ANION GAP: 9.3 [JW] 1933 LEUKOCYTES (U)(!): 1+ [JW] 1933 NITRITES(!): POSITIVE [JW] 1933 BLOOD (U)(!): 1+ [JW] 1933 BACTERIA (U): 2+ [JW] 2024 CT CHEST+ABD+PEL W CON My independent interpretation of this CT of the chest abdomen pelvis performed with IV contrast is notable consolidations in bilateral lower lungs [JW] Sat Jun 04, 2024 0310 PH ARTERIAL(!): 7.34 [JW] 0310 PCO2(!): 55.0 [JW] 0310 PO2(!): 53.0 [JW] 0310 O2 Saturation(!): 85 [JW] ED Course User Index [JW] Lionel Banegas DO Clinical Impression Pneumonia of both lower lobes due to infectious organism (Primary) Metabolic encephalopathy Disposition: Transfer to Another Facility ILionel D.OTimothy, dictated portions of this note using PictureMenu speech recognition software. Occasional wrong word or sound-alike substitutions may have occurred due to the inherent limitationsof voice recognition software. Please read the chart carefully and recognize, using context, where s ubstitutions may have occurred. Lionel Banegas DO 06/03/24 9376 STRENGTH INSPECTOR documented in this encounter Plan of Treatment Upcoming Encounters Date Type Department Care Team (Latest Contact Info) Description 06/09/2024 2:20 PM ACID STRENGTH INSPECTOR Telemedicine [facility] [place] [address] [place] [phone] Earnest Drake MD [address], [place] [id number] 06/21/2024 1:30 AM ACID STRENGTH INSPECTOR Allied Health/Nurse Visit [facility] [address] [place] [address] Madan Palomo MD [address] [place] [address] 03/01/2025 11:00 AM CDT Allied Health/Nurse Visit [facility] [address] [place] [address] Norma Rowland PA-C [address] [place] [address] 03/01/2025 11:00 AM CDT Office Visit [facility] [place] [address] [place] [address] Norma Rowland PA-C [address] [place] [address] Pending Results Name Type Priority Associated Diagnoses Date /Time CULTURE, BACTERIA, BLOOD Microbiology STAT 06/03/2024 8:00 PM ACID STRENGTH INSPECTOR documented as of this encounter Procedures Procedure Name Priority Date/Time Associated Diagnosis Comments POCT GLUCOSE - ESPINOSA DOCKED DEVICE Routine 06/04/2024 9:10 AM ACID STRENGTH INSPECTOR BLOOD GAS, ARTERIAL LAB STAT 06/04/2024 5:05 AM ACID STRENGTH INSPECTOR PRO-BRAIN NATRIURETIC PEPTIDE STAT 06/04/2024 5:00 AM ACID STRENGTH INSPECTOR BLOOD GAS, ARTERIAL LAB STAT 06/04/2024 2:50 AM ACID STRENGTH INSPECTOR POCT GLUCOSE - ESPINOSA DOCKED DEVICE Routine 06/03/2024 10:46 PM ACID STRENGTH INSPECTOR RESPIRATORY PCR PANEL 2 STAT 06/03/2024 9:42 [address] CHEST+ABD+PEL W CON STAT 8:04 PM ACID STRENGTH INSPECTOR CULTURE, BACTERIA, BLOOD STAT 06/03/2024 8:00 PM ACID STRENGTH INSPECTOR DRUG SCREEN RAPID STAT 06/03/2024 6:4 9 PM ACID STRENGTH INSPECTOR HC URINALYSIS AUTO W/MICRO STAT 06/03/2024 6:49 PM ACID STRENGTH INSPECTOR URINE BACTERIA CULTURE STAT 6:49 PM ACID STRENGTH INSPECTOR CT HEAD WO CON STAT 06/03/2024 6:34 PM ACID STRENGTH INSPECTOR LACTIC ACID W REFLEX (SEPSIS) STAT 06/03/2024 6:25 PM ACID STRENGTH INSPECTOR COMPREHENSIVE METABOLIC PANEL STAT 06/03/2024 6:25 PM ACID STRENGTH INSPECTOR CBC W/DIFF AUTOMATED STAT 06/03/2024 6:25 PM ACID STRENGTH INSPECTOR ETHANOL STAT 06/03/2024 6:25 PM ACID STRENGTH INSPECTOR ECG 12-LEAD STAT 06/03/2024 6:21 PM ACID STRENGTH INSPECTOR documented in this encounter Results * (ABNORMAL) POCT glucose (06/04/2024 9:10 AM ACID STRENGTH INSPECTOR) GLUCOSE POC 188(H) 70 - 99 MG/DL 06/04/2024 9:11 AM ACID STRENGTH INSPECTOR [facility] 06/04/2024 9:10 AM ACID STRENGTH INSPECTOR us Lionel Banegas DO POCT ORDERABLES - DEVICE Final R esult [facility] [address] [place] [address], * (ABNORMAL) ARTERIAL BLOOD GAS (06/04/2024 5:05 AM ACID STRENGTH INSPECTOR) PH ARTERIAL 7.42 7.35 - 7.45 06/04/2024 5:18 AM ACID STRENGTH INSPECTOR [facility] PCO2 46.0(H) 35 - 45 MMHG 06/04/2024 5:18 AM [facility] PO2 53.0(L) 83 - 108 MMHG 06/04/2024 5:18 AM [facility] TOTAL CO2 ARTERIAL 31.2(H) 19.0 - 24.0 MMOL/L 06/04/2024 5:18 AM [facility] BASE EXCESS 4.5(H) 0 - 3 MMOL/L 06/04/2024 5:18 AM [facility] O2 SATURATION 88(L) 94.0 - 98.0 % 06/04/2024 5:18 AM [facility] BICARB ARTERIAL 29.8(H) 21.0 - 28.0 MMOL/L 06/04/2024 5:18 AM [facility] DENISE TEST N/A 06/04/2024 5:09 AM [facility] O2 ADMIN ARTERIAL 40% C PAP 06/04/2024 5:09 AM [facility] DRAW SITE ARTERIAL LT BRACH 06/04/2024 5:09 AM [facility] 06/04/2024 5:05 AM ACID STRENGTH INSPECTOR us Lionel Banegas DO LABORATORY Final Result [facility] [address] [place] [address], * (ABNORMAL) PRO-BRAIN NATRIURETIC PEPTIDE (06/04/2024 5:00 AM ACID STRENGTH INSPECTOR) PRO-B TYPE NATRIURETIC PEPTIDE 5,768(H) <450 PG/ML 06/04/2024 5:33 AM ACID STRENGTH INSPECTOR [facility] Comment: CUT POINTS ESTABLISHED BY [employer] ON NT PROBNP (ICON) STUDY (2006). AGE INDEPENDENT: <300 PG/ML HAS A 99% NEGATIVE PREDICTIVE VALUE FOR EXCLUDING ACUTE CHF <50 YEARS: >450 PG/ML IS CONSISTENT WITH ACUTE CHF 50-75 YEARS: >900 PG/ML IS CONSISTENT WITH ACUTE CHF >75 YEARS: >1800 PG/ML IS CONSISTENT WITH ACUTE CHF IN PATIENTS WITH RENAL INSUFFICIENCY (GFR <60), >1200 PG/ML YIELDS A DIAGNOSTIC SENSITIVITY AND SPECIFICITY OF 89% AND 72% FOR ACUTE CHF. 06/04/2024 5:00 AM ACID STRENGTH INSPECTOR Lionel Banegas DO LABORATORY Final Result [facility] [address] [place] [address], * (ABNORMAL) ARTERIAL BLOOD GAS (06/04/2024 2:50 AM ACID STRENGTH INSPECTOR) PH ARTERIAL 7.34(L) 7.35 - 7.45 06/04/2024 3:08 AM ACID STRENGTH INSPECTOR [facility] PCO2 55.0(H) 35 - 45 MMHG 06/04/2024 3:08 AM ACID STRENGTH INSPECTOR [facility] PO2 53.0(L) 83 - 108 MMHG 06/04/2024 3:08 AM ACID STRENGTH INSPECTOR [facility] TOTAL CO2 ARTERIAL 31.4(H) 19.0 - 24.0 MMOL/L 06/04/2024 3:08 AM ACID STRENGTH INSPECTOR [facility] BASE EXCESS 2.6 0 - 3 MMOL/L 06/04/2024 3:08 AM ACID STRENGTH INSPECTOR [facility] O2 SATURATION 85(L) 94.0 - 98.0 % 06/04/2024 3:08 AM ACID STRENGTH INSPECTOR [facility] BICARB ARTERIAL 29.7(H) 21.0 - 28.0 MMOL/L 06/04/2024 3:08 AM ACID STRENGTH INSPECTOR [facility] DENISE TEST N/A 06/04/2024 2:53 AM ACID STRENGTH INSPECTOR [facility] O2 ADMIN ARTERIAL 40% C PAP 06/04/2024 2:53 AM ACID STRENGTH INSPECTOR [facility] DRAW SITE ARTERIAL LT BRACH 06/04/2024 2:53 AM ACID STRENGTH INSPECTOR [facility] 06/04/2024 2:50 AM ACID STRENGTH INSPECTOR us Lionel Banegas DO LABORATORY Final Result Performing Organization Address [facility]/ZIP Co de Phone Number [facility] [address] [place] [address], * (ABNORMAL) POCT glucose (06/03/2024 10:46 PM ACID STRENGTH INSPECTOR) [facility] GLUCOSE POC 163(H) 70 - 99 MG/DL 06/03/2024 10:47 PM ACID STRENGTH INSPECTOR [facility] 06/03/2024 10:4 6 PM ACID STRENGTH INSPECTOR us Lionel Banegas DO POCT ORDERABLES - DEVICE Final R esult Performing Organization Address [facility] de Phone Number [facility] [address] [place] [id number], * (ABNORMAL) RESPIRATORY PCR PANEL 2 (06/03/2024 9:42 PM ACID STRENGTH INSPECTOR) [facility] ADENOVIRUS PCR (RESP) NOT DETECTED NOT DETECTED 06/04/2024 5:43 PM ACID STRENGTH INSPECTOR [facility] CORONAVIRUS 229E PCR (RESP) NOT DETECTED NOT DETECTED 06/04/2024 5:43 PM ACID STRENGTH INSPECTOR [facility] CORONAVIRUS HKU1 PCR (RESP) NOT DETECTED NOT DETECTED 06/04/2024 5:43 PM ACID STRENGTH INSPECTOR [facility] CORONAVIRUS NL63 PCR (RESP) NOT DETECTED NOT DETECTED 06/04/2024 5:43 PM ACID STRENGTH INSPECTOR [facility] CORONAVIRUS OC43 PCR (RESP) NOT DETECTED NOT DETECTED 06/04/2024 5:43 PM ACID STRENGTH INSPECTOR [facility] METAPNEUMOVIRUS PCR (RESP) NOT DETECTED NOT DETECTED 06/04/2024 5:43 PM ACID STRENGTH INSPECTOR [facility] RHINOVIRUS/ENTEROV IRUS PCR (RESP) NOT DETECTED NOT DETECTED 06/04/2024 5:43 PM ACID STRENGTH INSPECTOR [facility] INFLUENZA A PCR (RESP) NOT DETECTED NOT DETECTED 06/04/2024 5:43 PM ACID STRENGTH INSPECTOR [facility] INFLUENZA B PCR (RESP) NOT DETECTED NOT DETECTED 06/04/2024 5:43 PM ACID STRENGTH INSPECTOR [facility] PARAINFLUENZA 1 PCR (RESP) NOT DETECTED NOT DETECTED 06/04/2024 5:43 PM ACID STRENGTH INSPECTOR [facility] PARAINFLUENZA 2 PCR (RESP) NOT DETECTED NOT DETECTED 06/04/2024 5:43 PM ACID STRENGTH INSPECTOR [facility] PARAINFLUENZA 3 PCR (RESP) NOT DETECTED NOT DETECTED 06/04/2024 5:43 PM ACID STRENGTH INSPECTOR [facility] PARAINFLUENZA 4 PCR (RESP) DETECTED(A) NOT DETECTED 06/04/2024 5:43 PM [facility] Comment: CALLED TO JACOB PHAN AT [facility] 06.05.24 [id number] READ BACK AND VERIFIED RSV PCR (RESP) NOT DETECTED NOT DETECTED 06/04/2024 5:43 PM ACID STRENGTH INSPECTOR [facility] B PARAPERTUSIS PCR (RESP) NOT DETECTED NOT DETECTED 06/04/2024 5:43 PM ACID STRENGTH INSPECTOR [facility] BORDETELLA PERTUSSIS PCR (RESP) NOT DETECTED NOT DETECTED 06/04/2024 5:43 PM ACID STRENGTH INSPECTOR [facility] CHLAMYDOPHILA PNEUMONIAE PCR (RESP) NOT DETECTED NOT DETECTED 06/04/2024 5:43 PM ACID STRENGTH INSPECTOR [facility] MYCOPLASMA PNEUMONIAE PCR (RESP) NOT DETECTED NOT DETECTED 06/04/2024 5:43 PM ACID STRENGTH INSPECTOR [facility] CORONAVIRUS SARS COV 2 PCR (RESP) NOT DETECTED NOT DETECTED 06/04/2024 5:43 PM ACID STRENGTH INSPECTOR [facility] NASOPHARYNGEAL SWAB / Unknown 06/03/2024 9:42 PM ACID STRENGTH INSPECTOR us Lionel Banegas DO MICROBIOLOGY - GENERAL ORDERABLE S Final Result [facility] [address] [place] [address], [place] [phone] [id number] [facility] [address] [place] [address], * CT CHEST+ABD+PEL W CON (06/03/2024 8:04 PM ACID STRENGTH INSPECTOR) Anatomical Region Laterality Modality Chest, Abdomen, Pelvis Computed Tomography 06/03/2024 8:08 PM ACID STRENGTH INSPECTOR Impressions 06/03/2024 8:29 PM ACID STRENGTH INSPECTOR IMPRESSION: 1. ??Several consolidations in the right lower lobe, with tree-in-bud opacities lower lobes bilaterally. Findings compatible with multifocal pneumonia. 2. ??Trace diffuse mesenteric edema and mild anasarca, suggesting volume overload. 3. ??Limited evaluation of the upper abdominal structures, secondary to motion. 4. ??Other chronic/nonurgent findings, as above. Referred By: ?? Interpreted By: Rj Mendoza MD, 06/03/2024 8:08 PM Narrative 06/03/2024 8:29 PM ACID STRENGTH INSPECTOR [address] [place] [address] INDICATION: sepsis, source unclear, altered mental status, leukocytosis COMPARISON: Chest radiograph, 01 Jun 2024 TECHNIQUE: CT images of the chest, abdomen, and pelvis were obtained following the administration of IV contrast. Radiation dose reduction technique utilized. FINDINGS: CHEST: Cardiac pacemaker device in left chest wall with leads in the right atrium and both ventricles. Cardiac chambers within normal size limits. Moderate coronary atherosclerosis. No significant pericardial effusion. Aortic valvular calcification. Nonaneurysmal thoracic aorta. Some scattered prominent mediastinal lymph nodes are not enlarged by size criteria. Benign-appearing calcifications left hilar lymph nodes. No axillary lymphadenopathy. No suspicious thyroid nodule. Esophagus within normal limits. Trachea and central airways are patent. No pneumothorax. No pleural effusion. Benign calcified pulmonary granulomata. Several consolidations in the right lower lobe, with additional tree-in-bud opacities in the lower lobes bilaterally. Mild elevation of the right hemidiaphragm. ABDOMEN/PELVIS: Evaluation of the upper abdomen is somewhat degraded by respiratory motion and beam hardening artifact from positioning of upper extremities. Normal sized liver. Limited assessment of the hepatic parenchyma. Gallbladder within normal limits. Interposition of the ascending/proximal transverse colon anterior to the liver, anatomic variant. Main portal vein and SMV enhance. Atherosclerosis of the abdominal and pelvic vasculature. No retroperitoneal lymphadenopathy. No evidence of bowel obstruction or inflammation. Cecum in the right upper quadrant, with a normal appearing appendix coursing along the inferior hepatic border. No free gas in the abdomen or pelvis. No mesenteric lymphadenopathy. Trace diffuse mesenteric edema. Mild anasarca, more pronounced inferiorly. Stomach and duodenum within normal limits. Limited assessment of the spleen. Incidental note of a small splenule. Limited assessment of the pancreas. Adrenal glands appear within normal limits. Symmetric renal enhancement, though evaluation of the renal parenchyma is degraded. No visualized probable benign cyst on the superior pole of the right kidney, though evaluation is limited, no dedicated follow-up recommended. No hydronephrosis or hydroureter. Urinary bladder is decompressed with Guerra catheter present. Small volume intraluminal gas within the urinary bladder secondary to instrumentation. Prostatomegaly, measuring 6.5 cm transversely. Incidental note of benign pelvic phleboliths. No pelvic lymphadenopathy. MSK: Chronic degenerative changes of the hips, pubic symphysis, and sacroiliac joints. Six lumbar type vertebral bodies, anatomic variant. Chronic multilevel degenerative changes of the spine. Chronic degenerative changes of the glenohumeral joints and acromioclavicular joints. Procedure Note Rj Mendoza MD - 06/03/2024 [place] [id number] [place] [address] INDICATION: sepsis, source unclear, altered mental status, leukocytosis COMPARISON: Chest radiograph, 01 Jun 2024 TECHNIQUE: CT images of the chest, abdomen, and pelvis were obtainedfollowing the administration of IV contrast. Radiation dose reductiontechnique utilized. FINDINGS: CHEST: Cardiac pacemaker device in left chest wall with leads in the right atriumand both ventricles. Cardiac chambers within normal size limits. Moderatecoronary atherosclerosis. No significant pericardial effusion. Aorticvalvular calcification. Nonaneurysmal thoracic aorta. Some scattered prominent mediastinal lymph nodes are not enlarged by sizecriteria. Benign-appearing calcifications left hilar lymph nodes. Noaxillary lymphadenopathy. No suspicious thyroid nodule. Esophagus withinnormal limits. Trachea and central airways are patent. No pneumothorax. No pleuraleffusion. Benign calcified pulmonary granulomata. Several consolidationsin the right lower lobe, with additional tree-in-bud opacities in thelower lobes bilaterally. Mild elevation of the right hemidiaphragm. ABDOMEN/PELVIS: Evaluation of the upper abdomen is somewhat degraded by respiratory motionand beam hardening artifact from positioning of upper extremities. Normal sized liver. Limited assessment of the hepatic parenchyma.Gallbladder within normal limits. Interposition of the ascending/proximaltransverse colon anterior to the liver, anatomic variant. Main portal vein and SMV enhance. Atherosclerosis of the abdominal andpelvic vasculature. No retroperitoneal lymphadenopathy. No evidence of bowel obstruction or inflammation. Cecum in the right upperquadrant, with a normal appearing appendix coursing along the inferiorhepatic border. No free gas in the abdomen or pelvis. No mesenteric lymphadenopathy. Tracediffuse mesenteric edema. Mild anasarca, more pronounced inferiorly. Stomach and duodenum within normal limits. Limited assessment of thespleen. Incidental note of a small splenule. Limited assessment of thepancreas. Adrenal glands appear within normal limits. Symmetric renal enhancement, though evaluation of the renal parenchyma isdegraded. No visualized probable benign cyst on the superior pole of theright kidney, though evaluation is limited, no dedicated follow-uprecommended. No hydronephrosis or hydroureter. Urinary bladder is decompressed with Guerra catheter present. Small volumeintraluminal gas within the urinary bladder secondary to instrumentation.Prostatomegaly, measuring 6.5 cm transversely. Incidental note of benignpelvic phleboliths. No pelvic lymphadenopathy. MSK: Chronic degenerative changes of the hips, pubic symphysis, and sacroiliacjoints. Six lumbar type vertebral bodies, anatomic variant. Chronic multilevel degenerative changes of the spine. Chronic degenerative changes of the glenohumeral joints andacromioclavicular joints. IMPRESSION: 1. Several consolidations in the right lower lobe, with [id number] lower lobes bilaterally. Findings compatible with multifocalpneumonia. 2. Trace diffuse mesenteric edema and mild anasarca, suggesting volumeoverload. 3. Limited evaluation of the upper abdominal structures, secondary tomotion. 4. Other chronic/nonurgent findings, as above. Referred By: Interpreted By: Rj Mendoza MD, 06/03/2024 8:08 PM Lionel Banegas DO CT Final Result * (ABNORMAL) URINE BACTERIA CULTURE (06/03/2024 6:49 PM ACID STRENGTH INSPECTOR) SPEC DESCRIPTION URINE CLEAN CATCH 06/03/2024 7:51 PM ACID STRENGTH INSPECTOR [facility] SPECIAL REQUESTS NO SPECIAL REQUEST 06/03/2024 7:51 PM ACID STRENGTH INSPECTOR [facility] CULTURE RESULT EQUAL OR >100,000 CFU/mL KLEBSIELLA PNEUMONIAE EXTENDED SPECTRUM BETA LACTAMASE (A) 06/05/2024 8:06 AM ACID STRENGTH INSPECTOR [facility] URINE SPECIMEN OBTAINED BY CLEAN CATCH PROCEDURE / Unknown 06/03/2024 6:49 PM ACID STRENGTH INSPECTOR 06/03/2024 8:53 PM ACID STRENGTH INSPECTOR Narrative Organism Antibiotic Method Susceptibility Klebsiella pneumoniae extended spectrum beta lactamase AMPICILLIN MURRAY (VITEK) Resistant Klebsiella pneumoniae extended spectrum beta lactamase AMOXICILLIN/CLAVULANIC A MURRAY (VITEK) INTERMEDIATE: Intermediate Klebsiella pneumoniae extended spectrum beta lactamase AZTREONAM MURRAY (VITEK) Resistant Klebsiella pneumoniae extended spectrum beta lactamase CEFEPIME MURRAY (VITEK) Resistant Klebsiella pneumoniae extended spectrum beta lactamase CEFTRIAXONE MURRAY (VITEK) Resistant Klebsiella pneumoniae extended spectrum beta lactamase CIPROFLOXACIN MURRAY (VITEK) Resistant Klebsiella pneumoniae extended spectrum beta lactamase ESBL MURRAY (VITEK) POS: Resistant Klebsiella pneumoniae extended spectrum beta lactamase ERTAPENEM MURRAY (VITEK) Sensitive Klebsiella pneumoniae extended spectrum beta lactamase GENTAMICIN MURRAY (VITEK) Sensitive Klebsiella pneumoniae extended spectrum beta lactamase IMIPENEM MURRAY (VITEK) Sensitive Klebsiella pneumoniae extended spectrum beta lactamase LEVOFLOXACIN MURRAY (VITEK) Resistant Klebsiella pneumoniae extended spectrum beta lactamase MEROPENEM MURRAY (VITEK) Sensitive Klebsiella pneumoniae extended spectrum beta lactamase PIPRACIL/TAZO MURRAY (VITEK) Sensitive Klebsiella pneumoniae extended spectrum beta lactamase TRIMETH-SULFAMETH. MURRAY (VITEK) Resistant Klebsiella pneumoniae extended spectrum beta lactamase TETRACYCLINE MURRAY (VITEK) Resistant us Lionel Banegas DO MICROBIOLOGY - GENERAL ORDERABLE S Final Result [facility] [address] [place] [address], [place] [phone] [facility] [address] [place] [address], [place] [phone] * (ABNORMAL) URINALYSIS (06/03/2024 6:49 PM ACID STRENGTH INSPECTOR) COLOR (U) YELLOW 06/03/2024 7:13 PM ACID STRENGTH INSPECTOR [facility] TRANSPARENCY CLEAR 06/03/2024 7:13 PM [facility] SPECIFIC GRAVITY (U) 1.025 1.000 - 1.025 06/03/2024 7:13 PM [facility] U PH 5.0 5.0 - 8.0 06/03/2024 7:13 PM [facility] LEUKOCYTES (U) 1+(A) NEGATIVE 06/03/2024 7:13 PM [facility] NITRITES POSITIVE(A) NEGATIVE 06/03/2024 7:13 PM [facility] PROTEIN RANDOM (U) 1+(A) NEGATIVE 06/03/2024 7:13 PM [facility] GLUCOSE (U) NEGATIVE NEGATIVE 06/03/2024 7:13 PM [facility] KETONES MG/DL (U) NEGATIVE NEGATIVE 06/03/2024 7:13 PM [facility] UROBILINOGEN 0.2 <1.0 EU/DL 06/03/2024 7:13 PM [facility] BILIRUBIN (U) NEGATIVE NEGATIVE 06/03/2024 7:13 PM [facility] BLOOD (U) 1+(A) NEGATIVE 06/03/2024 7:13 PM [facility] WBC/HPF 0-5 0 - 5 /HPF 06/03/2024 7:13 PM [facility] Comment:UNSPUN URINE SPECIME N RBC/HPF 0-5 0 - 5 /HPF 06/03/2024 7:13 PM ACID STRENGTH INSPECTOR [facility] BACTERIA (U) 2+ /HPF 06/03/2024 7:13 PM ACID STRENGTH INSPECTOR [facility] MUCUS PRESENT 06/03/2024 7:13 PM ACID STRENGTH INSPECTOR [facility] URINE SPECIMEN OBTAINED BY CLEAN CATCH PROCEDURE / Unknown 06/03/2024 6:49 PM ACID STRENGTH INSPECTOR Lionel Banegas DO URINE ORDERABLES Final Result [facility] [address] [place] [address], * DRUG SCREEN RAPID (06/03/2024 6:49 PM ACID STRENGTH INSPECTOR) CANNABINOIDS SCREEN (U) NEGATIVE NEGATIVE 06/03/2024 7:16 PM ACID STRENGTH INSPECTOR [facility] PHENCYCLIDINE PCP (U) NEGATIVE NEGATIVE 06/03/2024 7:16 PM ACID STRENGTH INSPECTOR [facility] COCAINE METABOLITES (U) NEGATIVE NEGATIVE 06/03/2024 7:16 PM ACID STRENGTH INSPECTOR [facility] METHAMPHETAMINE SCREEN (U) NEGATIVE NEGATIVE 06/03/2024 7:16 PM ACID STRENGTH INSPECTOR [facility] OPIATE SCREEN (U) NEGATIVE NEGATIVE 024 7:16 PM ACID STRENGTH INSPECTOR [facility] AMPHETAMINE SCREEN (U) NEGATIVE NEGATIVE 06/03/2024 7:16 PM ACID STRENGTH INSPECTOR [facility] BENZODIAZEPINES SCREEN (U) NEGATIVE NEGATIVE 06/03/2024 7:16 PM ACID STRENGTH INSPECTOR [facility] TRICYCLIC ANTIDEPRESSANT SCREEN (U) NEGATIVE NEGATIVE 06/03/2024 7:16 PM ACID STRENGTH INSPECTOR [facility] METHADONE (U) NEGATIVE NEGATIVE 06/03/2024 7:16 PM ACID STRENGTH INSPECTOR [facility] BARBITURATES SCREEN (U) NEGATIVE NEGATIVE 06/03/2024 7:16 PM ACID STRENGTH INSPECTOR [facility] OXYCODONE SCREEN (U) NEGATIVE NEGATIVE 06/03/2024 7:16 PM [facility] URINE TOX COMMENT THIS TEST METHODOLOGY IS DESIGNED AND OFFERED A RAPID TURNAROUND, QUALITATIVE SCREENING PROCEDURE TO AID IN THE IMMEDIATE MEDICAL ASSESSMENT OF PATIENTS SUSPECTED OF SUBSTANCE ABUSE. 06/03/2024 6:49 PM ACID STRENGTH INSPECTOR [facility] Comment: CLINICAL CONSIDERATION AND PROFESSIONAL JUDGMENT MUST BE APPLIED TO ANY DRUG OF ABUSE TEST RESULT, BOTH POSITIVE AND NEGATIVE. CONFIRMATORY QUANTITATIVE RESULTS ARE AVAILABLE THROUGH OUR REFERENCE LABORATORY. URINE SPECIMEN / Unknown 06/03/2024 6:49 PM ACID STRENGTH INSPECTOR us Lionel Banegas DO URINE ORDERABLES Final Result [facility] [address] [place] [address], * CT HEAD WO CON (06/03/2024 6:34 PM ACID STRENGTH INSPECTOR) Anatomical Region Laterality Modality Head Computed Tomogra phy 06/03/2024 7:10 PM ACID STRENGTH INSPECTOR Impressions 06/03/2024 7:16 PM ACID STRENGTH INSPECTOR IMPRESSION: 1. ??No acute intracranial abnormalities identified. 2. ??Generalized cerebral atrophy. At least mild chronic small vessel ischemic changes within the white matter. Ordered By: LIONEL BANEGAS Interpreted By: Bartolome Dillard DO, 06/03/2024 7:10 PM Narrative 06/03/2024 7:16 PM ACID STRENGTH INSPECTOR [facility] [address] [place] [address] EXAMINATION: CT head without contrast HISTORY: Altered mental status. Unresponsiveness. COMPARISON: CT head 01/17/2023. TECHNIQUE: Axial CT images of the head without use of intravenous contrast. A dose lowering technique was used for this procedure, which may include, but is not limited to, dose reduction technique, automated exposure control, the use of degenerative reconstruction, and ALARA/image gently techniques. FINDINGS: No evidence of acute intracranial hemorrhage. No mass effect or midline shift. No evidence of subdural or epidural hematoma. There is a chronic appearing area of hypoattenuation within the right frontal lobe adjacent to the anterior horn of the right lateral ventricle. This appears similar to the prior examination. This could be related to prior infarction or chronic small vessel ischemic change. There is generalized cerebral atrophy. No hydrocephalus. There are at least mild scattered chronic small vessel ischemic changes within the bilateral white matter. CT is insensitive in the evaluation of acute ischemia. If the patient's symptoms persist or worsen, further evaluation with MRI would be recommended. There are choroid plexus and pineal gland calcifications. There are atherosclerotic vascular calcifications. No acute appearing orbital abnormalities. The paranasal sinuses and mastoid air cells are clear. No acute osseous abnormalities are identified. ?? Procedure Note Bartolome Dillard DO - 06/03/2024 [facility] [address] [place] [address] EXAMINATION: CT head without contrast HISTORY: Altered mental status. Unresponsiveness. COMPARISON: CT head 01/17/2023. TECHNIQUE: Axial CT images of the head without use of intravenous contrast. A dose lowering technique was used for this procedure, which may include,but is not limited to, dose reduction technique, automated exposurecontrol, the use of degenerative reconstruction, and ALARA/image gentlytechniques. FINDINGS: No evidence of acute intracranial hemorrhage. No mass effect or midlineshift. No evidence of subdural or epidural hematoma. There is a chronicappearing area of hypoattenuation within the right frontal lobe adjacentto the anterior horn of the right lateral ventricle. This appears similarto the prior examination. This could be related to prior infarction orchronic small vessel ischemic change. There is generalized cerebralatrophy. No hydrocephalus. There are at least mild scattered chronic smallvessel ischemic changes within the bilateral white matter. CT isinsensitive in the evaluation of acute ischemia. If the patient's symptomspersist or worsen, further evaluation with MRI would be recommended. Thereare choroid plexus and pineal gland calcifications. There areatherosclerotic vascular calcifications. No acute appearing orbitalabnormalities. The paranasal sinuses and mastoid air cells are clear. Noacute osseous abnormalities are identified. IMPRESSION: 1. No acute intracranial abnormalities identified. 2. Generalized cerebral atrophy. At least mild chronic small vesselischemic changes within the white matter. Ordered By: LIONEL BANEGAS Interpreted By: Bartolome Dillard DO, 06/03/2024 7:10 PM us Lionel Banegas DO CT Final Result * LACTIC ACID W REFLEX (SEPSIS) (06/03/2024 6:25 PM ACID STRENGTH INSPECTOR) LACTIC ACID VENOUS 2.0 0.4 - 2.0 MMOL/L 06/03/2024 6:56 PM ACID STRENGTH INSPECTOR [facility] 06/03/2024 6:25 PM ACID STRENGTH INSPECTOR us Lionel Banegas DO LABORATORY Final Result Performing Organization Address [facility]/ZIP Co de Phone Number [facility] [address] [place] [address], * ETHANOL (06/03/2024 6:25 PM ACID STRENGTH INSPECTOR) ALCOHOL S/P/B <0.003 <0.003 G/DL 06/03/2024 6:52 PM ACID STRENGTH INSPECTOR [facility] 06/03/2024 6:25 PM ACID STRENGTH INSPECTOR Lionel Banegas DO LABORATORY Final Result Performing Organization Address [facility] Co de Phone Number [facility] [address] [place] [address], [place] [phone] * (ABNORMAL) COMPREHENSIVE METABOLIC PANEL (06/03/2024 6:25 PM ACID STRENGTH INSPECTOR) SODIUM S/P/B 143 136 - 145 MMOL/L 06/03/2024 6:52 PM ACID STRENGTH INSPECTOR [facility] POTASSIUM S/P/B 4.2 3.5 - 5.1 MMOL/L 06/03/2024 6:52 PM ACID STRENGTH INSPECTOR [facility] CHLORIDE S/P/B 103 98 - 107 MMOL/L 06/03/2024 6:52 PM ACID STRENGTH INSPECTOR [facility] CO2 30.7 21.0 - 32.0 MMOL/L 06/03/2024 6:52 PM ACID STRENGTH INSPECTOR [facility] GLUCOSE 242(H) 70 - 99 MG/DL 06/03/2024 6:52 PM ACID STRENGTH INSPECTOR [facility] Comment: FASTING GLUCOSE 100 TO 125 MG/DL IS CONSISTENT WITH IMPAIRED FASTING GLUCOSE. FASTING GLUCOSE >125 MG/DL IS CONSISTENT WITH DIABETES. RANDOM GLUCOSE >200 MG/DL WITH HYPERGLYCEMIC SYMPTOMS IS CONSISTENT WITH DIABETES. PER ADA GUIDELINES BUN 46(H) 6 - 24 MG/DL 06/03/2024 6:52 PM [facility] CREATININE S/P/B 1.20 0.70 - 1.30 MG/DL 06/03/2024 6:52 PM [facility] CALCIUM S/P/B 9.1 8.4 - 10.5 MG/DL 06/03/2024 6:52 PM [facility] BILIRUBIN TOTAL S/P/B 0.8 0.2 - 1.0 MG/DL 06/03/2024 6:52 PM [facility] Comment: THIS ASSAY IS NOT RECOMMENDED FOR PATIENTS UNDERGOING TREATMENT WITH ELTROMBOPAG DUE TO THE POTENTIAL FOR FALSELY ELEVATED RESULTS. ALKALINE PHOSPHATASE S/P/B 84 45 - 115 U/L 06/03/2024 6:52 PM [facility] AST 18 15 - 37 U/L 06/03/2024 6:52 PM [facility] ALT 22 16 - 63 U/L 06/03/2024 6:52 PM [facility] TOTAL PROTEIN S/P/B 7.1 6.4 - 8.2 G/DL 06/03/2024 6:52 PM [facility] ALBUMIN S/P/B 2.4(L) 3.4 - 5.0 G/DL 06/03/2024 6:52 PM [facility] ANION GAP 9.3 5.0 - 15.0 MMOL/L 06/03/2024 6:52 PM [facility] OSMOLALITY (CALC) 316 MOSM/KG 024 6:52 PM [facility] Comment:REFERENCE RANGE NOT ESTABLISHED GFR ESTIMATE 61(L) >89 ML/MIN/1. 73 M2 06/03/2024 6:52 PM [facility] GFR NOTES GFR REFERENCE S: 06/03/2024 6:52 PM [facility] Comment: THE ESTIMATED GFR IS CALCULATED USING THE 2020 CKD-EPI EQUATION. THE FOLLOWING CATEGORIES FOR GRADING RENAL FUNCTION ARE RECOMMENDED BY THE INTERNATIONAL SOCIETY OF NEPHROLOGY (KDIGO 2012 CLINICAL PRACTICE GUIDELINE). G1,NORMAL OR HIGH: >89 ml/min/1.73 m2 G2,MILDLY DECREASED: 60-89 ml/min/1.73 m2 G3A,MILDLY TO MODERATELY DECREASED: 45-59 ml/min/1.73 m2 G3B,MODERATELY TO SEVERELY DECREASED: 30-44 ml/min/1.73 m2 G4,SEVERELY DECREASED: 15-29 ml/min/1.73 m2 G5,KIDNEY FAILURE: <15 ml/min/1.73 m2 06/03/2024 6:25 PM ACID STRENGTH INSPECTOR us Lionel Banegas DO LABORATORY Final Result [facility] [address] [place] [address], * (ABNORMAL) CBC W/DIFF AUTOMATED (06/03/2024 6:25 PM ACID STRENGTH INSPECTOR) WBC 16.07(H) 4.00 - 10.80 x10'3/uL 06/03/2024 6:35 PM ACID STRENGTH INSPECTOR [facility] RBC 4.15(L) 4.50 - 6.10 x10'6/uL 06/03/2024 6:35 PM ACID STRENGTH INSPECTOR [facility] HGB 10.9(L) 13.0 - 18.0 G/DL 06/03/2024 6:35 PM ACID STRENGTH INSPECTOR [facility] HCT 36.1(L) 37.0 - 52.0 % 06/03/2024 6:35 PM ACID STRENGTH INSPECTOR [facility] MCV 87.0 78.0 - 100.0 FL 06/03/2024 6:35 PM ACID STRENGTH INSPECTOR [facility] MCH 26.3(L) 27.0 - 31.0 PG 06/03/2024 6:35 PM ACID STRENGTH INSPECTOR [facility] MCHC 30.2(L) 33.0 - 36.0 G/DL 06/03/2024 6:35 PM ACID STRENGTH INSPECTOR [facility] RDW 16.8(H) 11.5 - 14.5 % 06/03/2024 6:35 PM ACID STRENGTH INSPECTOR [facility] PLT 279 150 - 350 x10'3/uL 06/03/2024 6:35 PM [facility] MPV 11.0(H) 7.4 - 10.4 FL 06/03/2024 6:35 PM ACID STRENGTH INSPECTOR [facility] CBC COMMENT NORMAL REFERENCE RANGE NOT ESTABLISHED FOR THE PROPORTIONAL LEUKOCYTE DIFFERENTIAL. 06/03/2024 6:35 PM ACID STRENGTH INSPECTOR [facility] NEUTROPHILS % 87.2 % 06/03/2024 6:35 PM ACID STRENGTH INSPECTOR [facility] LYMPHOCYTES % 8.2 % 06/03/2024 6:35 PM ACID STRENGTH INSPECTOR [facility] MONOCYTES % 4.1 % 06/03/2024 6:35 PM ACID STRENGTH INSPECTOR [facility] EOSINOPHILS % 0.0 % 06/03/2024 6:35 PM ACID STRENGTH INSPECTOR [facility] BASOPHILS % 0.1 % 06/03/2024 6:35 PM [facility] IMMATURE GRANS % 0.4 % 06/03/20 24 6:35 PM ACID STRENGTH INSPECTOR [facility] NRBC % 0.0 % 06/03/2024 6:35 PM [facility] ABS. NEUTROPHILS 14.02(H) 1.60 - 8.30 x10'3/uL 06/03/2024 6:35 PM ACID STRENGTH INSPECTOR [facility] ABS. LYMPHOCYTES 1.31 0.80 - 4.70 x10'3/uL 06/03/2024 6:35 PM [facility] ABS. MONOCYTES 0.66 0.00 - 1.50 x10'3/uL 06/03/2024 6:35 PM [facility] ABS. EOSINOPHILS 0.00 0.00 - 0.40 x10'3/uL 06/03/2024 6:35 PM [facility] ABS. BASOPHILS 0.02 0.00 - 0.20 x10'3/uL 06/03/2024 6:35 PM [facility] ABS. IMMATURE GRANULOCYTES 0.06(H) 0.00 - 0.03 x10'3/uL 06/03/2024 6:35 PM ACID STRENGTH INSPECTOR [facility] ABS. NUCLEATED RBC'S 0.00 0.00 - 0.01 x10'3/uL 06/03/2024 6:35 PM ACID STRENGTH INSPECTOR [facility] 06/03/2024 6:25 PM ACID STRENGTH INSPECTOR Lionel Banegas DO LABORATORY Final Result Performing Organization Address [facility]/State/ZIP Co de Phone Number [facility] [address] [place] [address], * ECG 12 lead (06/03/2024 6:21 PM ACID STRENGTH INSPECTOR) 06/03/2024 6:21 PM ACID STRENGTH INSPECTOR Narrative [facility] - 06/03/2024 9:35 PM ACID STRENGTH INSPECTOR ? [facility] ?[address] [place], [place] ??[address] ? Test Date: ?2024-06-03 Pat Name: ? ANNIE CROCKER ?Department: ?? 3 ? Room: ? Gender: ? Male ? Engine Testing Supervisor: ?? : ?[id number] ? Requested By: LIONEL BANEGAS Order Number: [id number] ? Reading : ?? Josseline Cordero ? Measurements Intervals ?[place] ? Rate: ? 60 ? P: ? AK: ? 0 ?QRS: ?-90 QRSD: ? 175 ?T: ?85 QT: ? 489 ? QTc: ?489 ? Interpretive Statements ELECTRONIC VENTRICULAR PACEMAKER ABNORMAL RHYTHM ECG STRENGTH INSPECTOR Procedure Note Josseline Cordero MD - 06/03/[address] [place] [address] Test Date: 2024-06-03 Pat Name: ANNIE CROCKER Department: 3 Room: Gender: Male Engine Testing Supervisor: : 1945 Requested By: LIONEL BANEGAS Order Number: [id number] Reading MD: Josseline Cordero Measurements Intervals [place] Rate: 60 P: AK: 0 QRS: -90 QRSD: 175 T: 85 QT: 489 QTc: 489 Interpretive Statements ELECTRONIC VENTRICULAR PACEMAKER ABNORMAL RHYTHM ECG STRENGTH INSPECTOR us Lionel Banegas DO ECG ORDERABLES Final Result [facility] documented in this encounter Visit Diagnoses Diagnosis Pneumonia of both lower lobes due to infectious organism- Primary Metabolic encephalopathy Acute respiratory failure with hypoxia and hypercapnia (CMS/HCC HHS/HCC) documented in this encounter Administered Medications Inactive Administered Medications - up to 3 most recent administrations Medication Order MAR Action Action Date Dose Rate Site azithromycin (ZITHROMAX) 500 mg in sodium chloride 0.9 % 250 mL IVPB 500 mg, Intravenous, at 250 mL/hr, Every 24 hours, 5 doses, First dose on Thu06/03/24 at 2145, Last dose on Thu06/07/24 at 2145 [facility] 06/03/2024 10:45 PM ACID STRENGTH INSPECTOR 500 mg 250 mL/hr cefTRIAXone (ROCEPHIN) 1 g in sodium chloride 0.9 % 50 mL IVPB 1 g, Intravenous, at 100 mL/hr, Once, 1 dose, On Thu06/03/24 at 2115 [facility] 06/03/2024 9:40 PM ACID STRENGTH INSPECTOR 1 g 100 mL/hr insulin regular (NOVOLIN R/HUMULIN R) injection 4 Units 4 Units, Subcutaneous, Once, 1 dose, On Thu06/03/24 at 1915 Given 06/03/2024 8:10 PM ACID STRENGTH INSPECTOR 4 Units Left Lower Abdomen iopamidol (ISOVUE-370) 76 % injection 100 mL 100 mL, Intravenous, IMG once as needed, Contrast, 1 dose, Starting on Thu06/03/24 at 2004, Until Thu06/03/24 at 2003 Given 06/03/2024 8:04 PM ACID STRENGTH INSPECTOR 100 mLs Right Arm lactated ringers infusion at 999 mL/hr, Intravenous, Once, 1 dose, On Thu06/03/24 at 1915 New Bag 06/03/2024 8:09 PM ACID STRENGTH INSPECTOR 999 mL/hr piperacillin-tazobac neal (ZOSYN) 3.375 g in sodium chloride 0.9 % 50 mL IVPB 3.375 g, Intravenous, Administer over 30 Minutes, Once, 1 dose, On Thu06/03/24 at 2315 New Bag 06/04/2024 12:59 AM ACID STRENGTH INSPECTOR 3.375 g 100 mL/hr sodium chloride 0.9% bolus infusion 1,000 mL 1,000 mL, Intravenous, Administer over 30 Minutes, Once, 1 dose, On Thu06/03/24 at 2230 New Bag 06/03/2024 10:46 PM ACID STRENGTH INSPECTOR 1,000 mLs 2000 mL/hr sodium chloride 0.9% bolus infusion 1,000 mL 1,000 mL, Intravenous, Administer over 30 Minutes, Once, 1 dose, On Thu06/04/24 at 0000 New Bag 06/03/2024 11:55 PM ACID STRENGTH INSPECTOR 1,000 mLs 2000 mL/hr vancomycin 1000 mg in NS 250 mL IVPB 1,000 mg, Intravenous, at 250 mL/hr, Once, 1 dose, On Thu06/03/24 at 2315 New Bag 06/03/2024 11:54 PM ACID STRENGTH INSPECTOR 1,000 mg 250 mL/hr documented in this encounter Active and Recently Administered Medications Times are shown in ACID STRENGTH INSPECTOR. Scheduled Medication Order 06/02/2024 06/03/2024 06/04/2024 azithromycin (ZITHROMAX) 500 mg in sodium chloride 0.9 % 250 mL IVPB 500 mg, Intravenous, at 250 mL/hr, Every 24 hours, 5 doses, First dose on Thu06/03/24 at 2145, Last dose on Thu06/07/24 at 2145 2245 (New Bag - Provider: Jasiel Martinez RN)2345 (Infusion Stop Time - Provider: Jasiel Martinez RN) cefTRIAXone (ROCEPHIN) 1 g in sodium chloride 0.9 % 50 mL IVPB (COMPLETED) 1 g, Intravenous, at 100 mL/hr, Once, 1 dose, On Thu06/03/24 at 2115 2140 (New Bag - Provider: Jasiel Martinez RN)2215 (Infusion Stop Time - Provider: Jasiel Martinez RN) insulin regular (NOVOLIN R/HUMULIN R) injection 4 Units (COMPLETED) 4 Units, Subcutaneous, Once, 1 dose, On Thu06/03/24 at 1915 2010 (Given - Provider: Jasiel Martinez RN) lactated ringers infusion (COMPLETED) at 999 mL/hr, Intravenous, Once, 1 dose, On Thu06/03/24 at 1915 2009 (New Bag - Provider: Jasiel Martinez RN)2108 (Infusion Stop Time - Provider: Hermelinda Ramesh, RN) piperacillin-tazobactam (ZOSYN) 3.375 g in sodium chloride 0.9 % 50 mL IVPB (COMPLETED) 3.375 g, Intravenous, Administer over 30 Minutes, Once, 1 dose, On Thu06/03/24 at 2315 0059 (New Bag - Provider: Vidhi Busby RN)0129 (Infusion Stop Time - Provider: Vidhi Busby RN) sodium chloride 0.9% bolus infusion 1,000 mL (COMPLETED) 1,000 mL, Intravenous, Administer over 30 Minutes, Once, 1 dose, On Thu06/03/24 at 2230 2246 (New Bag - Provider: Jasiel Martinez RN)2345 (Infusion Stop Time - Provider: Jasiel Martinez RN) sodium chloride 0.9% bolus infusion 1,000 mL (COMPLETED) 1,000 mL, Intravenous, Administer over 30 Minutes, Once, 1 dose, On Thu06/04/24 at 0000 2355 (New Bag - Provider: Jasiel Martinez RN) 0055 (Infusion Stop Time - Provider: Vidhi Busby RN) vancomycin 1000 mg in NS 250 mL IVPB (COMPLETED) 1,000 mg, Intravenous, at 250 mL/hr, Once, 1 dose, On Thu06/03/24 at 2315 2354 (New Bag - Provider: Jasiel Martinez RN) 0055 (Infusion Stop Time - Provider: Vidhi Busby RN) PRN Medication Order 06/02/2024 06/03/2024 06/04/2024 iopamidol (ISOVUE-370) 76 % injection 100 mL (COMPLETED) 100 mL, Intravenous, IMG once as needed, Contrast, 1 dose, Starting on Thu06/03/24 at 2003, Until Thu06/03/24 at 2003 2003 (Given - Provider: Esteban Britton, RTR) documented in this encounter Additional Health Concerns Infection Onset Date Last Indicated Resolved Time ESBL - Extended Spectrum Beta-lactamase 06/01/2024 06/03/2024 COVID-19 Rule Out 06/03/2024 06/03/2024 06/04/2024 5:43 PM ACID STRENGTH INSPECTOR documented as of this encounter Care Teams Environmental Law Professor Relationship Specialty Start Date End Date Abdon Villela MD [address] [place] [phone] PCP - General FAMILY PRACTICE 12/17/15 Madan Palomo MD [address] [place] [address] EP Insurance Professional CLINICAL CARDIAC ELECTROPHYSIOLOGY 10/08/21 Norma Rowland PA-C [address] [place] [id number] Referring Physician PHYSICIAN [employer] 12/31/23 documented as of this encounter
--- OUTSIDE RECORDS SUMMARY | 2024-06-08 06:07 | XMS_ITS | Encounter Summary ---
Author Organization [facility] Address [facility] [address] [place] [address] Care Team Providers Care Traffic Officer Name Role Phone Abdon Villela MD Primary Care Provider [phone] Madan Palomo MD Unavailable [phone] Norma Rowland PA-C Unavailable [phone] Reason for Visit * Reason Comments Chest Pain Encounter Details Date Type Department Care Team (Late st Contact Info) Description 06/01/2024 1:37 PM CONTROLLER INSTRUCTOR - 06/01/2024 3:40 PM [facility] Emergency [facility] [address] [place] [address] Mariam Watkins MD [address] [place] [id number] Chest Pain Discharge Disposition: Residential Facility Social History Tobacco Use Types Packs/Day Years Used Date Smoking Tobacco: Former Cigarettes 1 29.6 0 02/14/1966 - 10/07/1995 Pipe Smokeless Tobacco: Never Alcohol Use Standard Drinks/Week Comments No 0 (1 standard drink = 0.6 oz pur e alcohol) [facility] Utilities Answer Date Recorded In the past 12 months has th e electric, gas, oil, or water company threatened to shut off services in your [...] Never 07/27/2023 How often do you attend caodaism or evangelical serv ices? Never 07/27/2023 Do you belong to any clubs o r organizations such as caodaism groups, unions, fraternal or athletic groups, or [...] and heating? Not hard at all 05/17/2024 [facility] [place] [facility] Occupat ional Health - Occupational Stress [...] place to sleep or slept in a detention (including now)? No 07/27/2023 Housing Stability Vital Sign Answer Malik e Recorded In the last 12 months, was t here a time when you were not able to pay the mortgage or rent on time? No 05/17/2024 In the past 12 months, how m any times have you moved where you were living? 0 05/17/2024 At any time in the past 12 m [facility], were you homeless or living in a detention (including now)? No 05/17/2024 Sex and Gender [...] Sign Reading Time Taken Comments Blood Pressure 140/64 06/01/2024 3:30 PM CONTROLLER INSTRUCTOR Pulse 60 06/01/2024 3:30 PM CONTROLLER INSTRUCTOR Temperature - - Respiratory Rate 21 06/01/2024 3:30 PM CONTROLLER INSTRUCTOR Oxygen Saturation 91% 06/01/2024 3:30 PM CONTROLLER INSTRUCTOR Inhaled Oxygen Concentration - - Weight - - Height - - Body Mass Index - - documented in this encounter Functional Status * Are you deaf or do you have serious difficulty hearing Answer Date of Assessment Author Status No 05/17/2024 3:11 AM Hector Lyn RN Active * Are you blind or do you have serious difficulty seeing, even when wearing glasses? Answer Date of Assessment Author Status No 05/17/2024 3:11 AM Hector yLn RN Active * Do you have serious [...] Lyn RN Active documented in this encounter Discharge Instructions * Discharge Instructions* Mariam Watkins MD - 06/01/2024 3:20 PM CONTROLLER INSTRUCTOR Chest pain, dementia, history of bacteremia No signs of heart attack or acute infection at this time. Blood cultures and urine culture were sent Continue IV antibiotics as prescribed Return to emergency room for worsening fever, vomiting, blood in the urine, difficulty breathing orother concerns. ROLLER INSTRUCTOR * Attachments The following attachments cannot be sent through Care Everywhere. * Chest Pain That Is Not Caused by the Heart Discharge Instructions (Icelandic) documented in this encounter Medications at Time [...] organism, unspecified whether acute organ dysfunction present (CMS/HCC HHS/HCC) Inject 600 mg into the vein daily [...] as of this encounter ED Notes * Mariam Watkins MD - 06/01/2024 1:57 PM CST Chief Complaint Chief Complaint Patient presents with Chest Pain History of Present Illness History obtained from EMS and medical records Patient is an 79-year-old male who presents to the emergency room from the correction for reportsof chest pain. Patient was recently discharged on May 25. He has a past medical history of hypertension, hyperlipidemia, atrial fibrillation on Eliquis, coronary artery disease and cardiomyopathy. Patient has a history of sick sinus syndrome status post pacemaker placement. Patient has a history of dementia. Patient was admitted for hematuria with a urinalysis that was positive for UTI. Patient was started on Rocephin. Patient was also seen on May 09 for an incarcerated umbilical hernia that was reduced in the emergency room. CT scan showed nonspecific enteritis patient was transferred to [place] for hematuria on Eliquis and possible urosepsis. Patient did have bacteremia with staph with positive cultures on May 16 and May 17. Patient was discharged on IV daptomycin until July 01, 2024. Patient reportedly had chest pain at the correction. He was given 2 nitroglyc cheryl. Patient is unable to communicate any chest pain here. Echo 05/20/24 - Narrative & Impression Echocardiography Report Pat.Name: ANNIE CROCKER Pat.ID: [id number] .Date: 05/20/2024 Refer.MD: [id number], MARIAM WATKINS Exam Time: 2:57:00 PM Study Type:ECHO WITH CARDIAC DOPPLER COMP Height: 72 in Weight: 182 lb BSA: 2.05 m2 Age: 10 1945,79Y Sex: M BP: 160/73 HR: 60 bpm Sonogrphr: Angel Pascual [facility], [facility] Pat. Stat.:Inpatient Room: 311 Reason for Study:Bacteremia Procedures: 2D, M-mode, Doppler, Color Flow, Definity was used to enhance endocardial definition. The study quality is technically difficult. Limited by poor compliance. Race: W ++++++++++++++++++++++++++++++++++++ SUMMARY: ++++++++++++++++++++++++++++++++++++ The left ventricular size is normal. Estimated left ventricular ejection fraction is 40-45%. ??Mild global hypokinesis is noted. The right ventricular size is normal. Right ventricular systolic function is moderately depressed. A pacemaker wire is visualized in the right ventricle. The left atrial size is moderately to severely enlarged. Right atrial size is mild to moderately enlarged. No evidence of aortic valve stenosis. No evidence of aortic valve regurgitation. Mild calcification of aortic valve leaflets. Small 0.7 cm. linear structure on ventricular aspect of anterior and also posterior mitral leaflets- cannot exclude vegetation (vs. part of chordal structure). Mild mitral regurgitation. Right ventricular systolic pressure is 30 mmHg. If endocarditis suspected, consider TATE . Technically challenging study . Medical History ALLERGIES: Review of patient's allergies indicates: Allergen Reactions Tomato Diarrhea MEDICATIONS: Prior to Admission medications [...] by mouth 2 (two) times daily. 03/02/24 Maadn Palomo MD DAPTOmycin 600 mg in sodium [...] mEq total) by mouth daily. 08/01/23 Sandra Short, HETAL vitamin B-12 (CYANOCOBALAMIN) 1000 MCG tablet Take 1 tablet (1,000 mcg total) by mouth daily. Default History Genericprovider PAST MEDICAL HISTORY: Past Medical History: Diagnosis Date A-fib ([facility] HHS/[facility]) BPH (benign prostatic hyperplasia) CHF (congestive heart failure) ([facility]) Coronary artery disease Dementia without behavioral disturbance ([facility]) Diabetes mellitus ([facility] HHS/HCC) Disorder of prostate HLD (hyperlipidemia) Hyperlipidemia Hypertension Incarcerated hernia 05/09/2024 Reduced in ED Pacemaker 09/10/2022 Respiratory failure ([facility] HHS/[facility]) Sick sinus syndrome ([facility]) Urinary retention PAST SURGICAL HISTORY: Past Surgical History: Procedure Laterality Date CORONARY ART DIL,ONE VESSEL 2010 INSER COBIAN PACER XVENOUS ATRIAL 05/04/2013 PACEMAKER FAMILY HISTORY: Family History Problem Relation Name Age of Onset Heart Attack Mother SOCIAL HISTORY: Social History Tobacco Use Smoking status: Former Current packs/day: 0.00 Average packs/day: 1 pack/day for 29.6 years (29.6 ttl pk-yrs) Types: Cigarettes, Pipe Start date: 02/14/1966 Quit date: 10/07/1995 Years since quittin.6 Smokeless tobacco: Never Substance Use Topics Alcohol use: No Drug use: No Currently lives in a correction Review of Systems Review of Systems Unable to perform ROS: Dementia Cardiovascular: Positive for chest pain (Reported). Physical Exam Filed Vitals: 06/01/24 1344 06/01/24 1400 06/01/24 1430 12/11/24 1500 BP: (P) 102/64 104/64 119/72 117/74 Pulse: (P) 79 60 60 60 Resp: (P) 16 16 14 16 Temp: (P) 97.2 ??F (36.2 ??C) TempSrc: (P) Temporal SpO2: (P) 94% 91% 93% 93% Vital signs are stable Physical Exam Vitals and nursing note reviewed. Constitutional: General: He is not in acute distress. Appearance: He is ill-appearing (Chronically ill-appearing). Comments: Patient is lying in bed with his eyes closed. He does mumble intermittently in response to voice and physical stimuli but does not open his eyes or answer questions coherently HENT: Head: Normocephalic and atraumatic. Cardiovascular: Rate and Rhythm: Normal rate and regular rhythm. Pulses: Normal pulses. Heart sounds: Normal heart sounds. No murmur heard. Pulmonary: Effort: Pulmonary effort is normal. No respiratory distress. Breath sounds: Normal breath sounds. No wheezing or rales. Chest: Chest wall: No tenderness. Abdominal: General: Bowel sounds are normal. There is no distension. Palpations: Abdomen is soft. Tenderness: There is no abdominal tenderness. There is no guarding or rebound. Genitourinary: Comments: Indwelling [place] Musculoskeletal: General: No swelling. Skin: General: Skin is warm and dry. Capillary Refill: Capillary refill takes less than 2 seconds. Neurological: Mental Status: He is alert. Mental status is at baseline. Comments: Moves all extremities Psychiatric: Comments: Patient is not following commands, opening his eyes or answering direct questions Diagnostic Studies / Procedures ELECTROCARDIOGRAMS: Results for orders placed or performed during the hospital encounter of 06/01/24 ECG [address] [place] [address] Test Date: 2024-06-01 Pat Name: ANNIE CROCKER Department: 3 Room: EXAM 606 Gender: Male Hogshead Dumper: : 1945 Requested By: MARIAM WATKINS Order Number: [id number] Reading MD: Measurements Intervals [place] Rate: 59 P: CO: 0 QRS: 268 QRSD: 181 T: 85 QT: 513 QTc: 512 Interpretive Statements ELECTRONIC VENTRICULAR PACEMAKER ABNORMAL RHYTHM ECG LABORATORY STUDIES: Results for orders placed or performed during the hospital encounter of 06/01/24 CBC W/DIFF AUTOMATED Result Value Ref Range WBC 11.22 (H) 4.00 - 10.80 x10'3/uL RBC 4.17 (L) 4.50 - 6.10 x10'6/uL HGB 11.0 (L) 13.0 - 18.0 G/DL HCT 36.2 (L) 37.0 - 52.0 % MCV 86.8 78.0 - 100.0 FL MCH 26.4 (L) 27.0 - 31.0 PG MCHC 30.4 (L) 33.0 - 36.0 G/DL RDW 16.2 (H) 11.5 - 14.5 % PLT 304 150 - 350 x10'3/uL MPV 10.2 7.4 - 10.4 FL CBC COMMENT NORMAL REFERENCE RANGE NOT ESTABLISHED FOR THE PROPORTIONAL LEUKOCYTE DIFFERENTIAL. NEUTROPHILS % 82.3 % LYMPHOCYTES % 11.8 % MONOCYTES % 4.7 % EOSINOPHILS % 0.5 % BASOPHILS % 0.3 % IMMATURE GRANS % 0.4 % NRBC % 0.0 % ABS. NEUTROPHILS 9.23 (H) 1.60 - 8.30 x10'3/uL ABS. LYMPHOCYTES 1.32 0.80 - 4.70 x10'3/uL ABS. MONOCYTES 0.53 0.00 - 1.50 x10'3/uL ABS. EOSINOPHILS 0.06 0.00 - 0.40 x10'3/uL ABS. BASOPHILS 0.03 0.00 - 0.20 x10'3/uL ABS. IMMATURE GRANULOCYTES 0.05 (H) 0.00 - 0.03 x10'3/uL ABS. NUCLEATED RBC'S 0.00 0.00 - 0.01 x10'3/uL COMPREHENSIVE METABOLIC PANEL Result Value Ref Range SODIUM S/P/B 141 136 - 145 MMOL/L POTASSIUM S/P/B 4.1 3.5 - 5.1 MMOL/L CHLORIDE S/P/B 102 98 - 107 MMOL/L CO2 31.9 21.0 - 32.0 MMOL/L GLUCOSE 211 (H) 70 - 99 MG/DL BUN 33 (H) 6 - 24 MG/DL CREATININE S/P/B 0.99 0.70 - 1.30 MG/DL CALCIUM S/P/B 9.0 8.4 - 10.5 MG/DL BILIRUBIN TOTAL S/P/B 0.7 0.2 - 1.0 MG/DL ALKALINE PHOSPHATASE S/P/B 82 45 - 115 U/L AST 25 15 - 37 U/L ALT 20 16 - 63 U/L TOTAL PROTEIN S/P/B 6.9 6.4 - 8.2 G/DL ALBUMIN S/P/B 2.5 (L) 3.4 - 5.0 G/DL ANION GAP 7.1 5.0 - 15.0 MMOL/L OSMOLALITY (CALC) 306 MOSM/KG GFR ESTIMATE 77 (L) >89 ML/MIN/1.73 M2 GFR NOTES GFR REFERENCES: TROPONIN, QUANT Result Value Ref Range TROPONIN I HIGH SENSITIVITY 39 0 - 76 ng/L LACTIC ACID W REFLEX (SEPSIS) Result Value Ref Range LACTIC ACID VENOUS 2.0 0.4 - 2.0 MMOL/L PRO-BRAIN NATRIURETIC PEPTIDE Result Value Ref Range PRO-B TYPE NATRIURETIC PEPTIDE 2,814 (H) <450 PG/ML URINALYSIS Result Value Ref Range COLOR (U) YELLOW TRANSPARENCY CLEAR SPECIFIC GRAVITY (U) 1.020 1.000 - 1.025 U PH 6.5 5.0 - 8.0 LEUKOCYTES (U) 3+ (A) NEGATIVE NITRITES POSITIVE (A) NEGATIVE PROTEIN RANDOM (U) NEGATIVE NEGATIVE GLUCOSE (U) NEGATIVE NEGATIVE KETONES MG/DL (U) NEGATIVE NEGATIVE UROBILINOGEN 0.2 <1.0 EU/DL BILIRUBIN (U) NEGATIVE NEGATIVE BLOOD (U) NEGATIVE NEGATIVE WBC/HPF 5-10 (A) 0 - 5 /HPF RBC/HPF 0-5 0 - 5 /HPF EPI/LPF RARE /LPF BACTERIA (U) 3+ /HPF OTHER CASTS (U) HYALINE /LPF IMAGING STUDIES XR CHEST PORTABLE Final Result by User, [id number] (06/01 150) [address] [place] [address] Examination: Portable chest. Exam time: 1407 hours. Clinical history: Chest pain. Comparison: 05/24/2024 ([facility]). Technique: AP upright view. Findings: Allowing for differences in projection and rotation, the cardiomediastinal silhouette is stable. Allowing for projection, the heart size is normal. Pulmonary vascularity is within normal limits. Left-sided transvenous pacemaker remains in place with stable positioning of its leads. Right-sided PICC line remains in place terminating in the SVC. No acute infiltrates or effusions are identified. The visualized bony thorax is stable. IMPRESSION: No acute cardiopulmonary process identified. Ordered By: MARIAM WATKINS Interpreted By: Morgan Thornton MD, 06/01/2024 2:59 PM ED Course / Medical Decision Making Medical Decision Making ED Course as of 06/01/24 1526 ThuJun 01, 2024 1410 Previous ER visits and recent hospitalization and discharge summary reviewed. Patient with recent bacteremia and sepsis. Patient unable to answer questions at this time which is baseline from the last time I saw him. [place] diagnosis of sepsis, bacteremia, urosepsis, NSTEMI, STEMI, electrolyte abnormality Patient is currently on IV daptomycin through PICC line Patient's medication reconciliation has been reviewed. [MA] 1445 EKG independently interpreted by me as a paced rhythm at a rate of 59. No change. Previous. Noother arrhythmia noted. [MA] 1518 CBC with mild leukocytosis and chronic anemia. Chemistry is unremarkable except for slightly elevated BUN and elevated glucose troponin is normal and similar to previous. BNP [place] elevated [place] 2814which is similar to previous. [MA] 1518 Chest x-ray is unremarkable. Lactic acid is normal. [MA] 1518 Urinalysis with only 5-10 white cells. There is nitrites and leukocyte esterase but patient iscurrently on daptomycin. Blood cultures x 2 and urine culture was sent. Patient will be discharged back to the correction to continue current treatment. Return instructions will be given. [MA] ED Course User Index [MA] Mariam Watkins MD Clinical Impression Chest pain (Primary) Dementia ([facility]) History of bacteremia Disposition: Discharge Mariam Watkins MD 06/01/24 1520 Mariam Watkins MD 06/01/24 1526 ROLLER INSTRUCTOR ROLLER INSTRUCTOR * Sammie Quijano RN - 06/01/2024 1:45 PM CST To ED per ALS from [facility] and rehab. NH reports patient C/O chest pain this afternoon. Gave nitro x2 without relief. Upon EMS arrival O2 sat lower per EMS O2 started at 2l per [place], off upon arrival. EMS also reports low bp en route. Patient awake but is hard to assess/understand. Deniesany chest pain at this time, states not right now . ROLLER INSTRUCTOR documented in this encounter Plan of Treatment Upcoming Encounters Date Type Department Care Team (Latest Contact Info) Description 06/09/2024 2:20 PM CONTROLLER INSTRUCTOR Telemedicine [facility] [address] [place] [phone] Earnest Drake MD [address] [place], [place] [phone] 06/21/2024 1:30 AM CONTROLLER INSTRUCTOR [facility] [address] [place] [address] Madan Palomo MD [address] [place] [address] 03/01/2025 11:00 AM CDT Allied Health/Nurse Visit [facility] [address] [place] [address] Norma Rowland PA-C [address] [place] [address] 03/01/2025 11:00 AM CDT Office Visit [facility] [address] [place] [address] Norma Rowland PA-C [address] [place] [address] documented as of this encounter Procedures Procedure Name Priority Date/Time Associated Diagnosis Comments HC URINALYSIS AUTO W/MICRO STAT 06/01/2024 2:58 PM CONTROLLER INSTRUCTOR URINE BACTERIA CULTURE STAT 2:58 PM CONTROLLER INSTRUCTOR XR CHEST PORTABLE STAT 06/01/2024 2:4 2 PM CONTROLLER INSTRUCTOR ECG 12-LEAD Routine 06/01/2024 2:31 PM CONTROLLER INSTRUCTOR LACTIC ACID W REFLEX (SEPSIS) STAT 06/01/2024 2:26 PM CONTROLLER INSTRUCTOR PRO-BRAIN NATRIURETIC PEPTIDE STAT 06/01/2024 2:26 PM CONTROLLER INSTRUCTOR COMPREHENSIVE METABOLIC PANEL STAT 06/01/2024 2:26 PM CONTROLLER INSTRUCTOR CULTURE, BACTERIA, BLOOD STAT 06/01/2024 2:26 PM CONTROLLER INSTRUCTOR CBC W/DIFF AUTOMATED STAT 06/01/2024 2:26 PM CONTROLLER INSTRUCTOR TROPONIN, QUANT STAT 06/01/2024 2:26 PM CONTROLLER INSTRUCTOR CULTURE, BACTERIA, BLOOD STAT 06/01/2024 2:18 PM CONTROLLER INSTRUCTOR documented in this encounter Results * (ABNORMAL) CULTURE URINE (06/01/2024 2:58 PM CONTROLLER INSTRUCTOR) SPEC DESCRIPTION URINE [facility] CATH 06/01/2024 3:00 PM CONTROLLER INSTRUCTOR [facility] SPECIAL REQUESTS NO SPECIAL REQUEST 06/01/2024 3:00 PM CONTROLLER INSTRUCTOR [facility] CULTURE RESULT EQUAL OR >100,000 CFU/mL KLEBSIELLA PNEUMONIAE EXTENDED SPECTRUM BETA LACTAMASE (A) 06/03/2024 1:28 PM CONTROLLER INSTRUCTOR [facility] URINE SPECIMEN OBTAINED VIA INDWELLING URINARY CATHETER / Unknown 06/01/2024 2:58 PM CONTROLLER INSTRUCTOR 06/01/2024 3:00 PM CONTROLLER INSTRUCTOR Narrative Organism Antibiotic Method Susceptibility Klebsiella pneumoniae extended spectrum beta lactamase AMPICILLIN MURRAY (VITEK) Resistant Klebsiella pneumoniae extended spectrum beta lactamase AMOXICILLIN/CLAVULANIC A MURRAY (VITEK) INTERMEDIATE: Intermediate Klebsiella pneumoniae extended spectrum beta lactamase AZTREONAM MURRAY (VITEK) Resistant Klebsiella pneumoniae extended spectrum beta lactamase CEFEPIME MURRAY (VITEK) Resistant Klebsiella pneumoniae extended spectrum beta lactamase CEFTRIAXONE MURRAY (VITEK) Resistant Klebsiella pneumoniae extended spectrum beta lactamase CEFAZOLIN MURRAY (VITEK) Resistant Klebsiella pneumoniae extended spectrum beta lactamase CIPROFLOXACIN MURRAY (VITEK) Resistant Klebsiella pneumoniae extended spectrum beta lactamase ESBL MURRAY (VITEK) POS: Resistant Klebsiella pneumoniae extended spectrum beta lactamase ERTAPENEM MURRAY (VITEK) Sensitive Klebsiella pneumoniae extended spectrum beta lactamase NITROFURANTOIN MURRAY (VITEK) Resistant Klebsiella pneumoniae extended spectrum beta lactamase GENTAMICIN [...] beta lactamase TETRACYCLINE MURRAY (VITEK) Resistant us Mariam Watkins MD MICROBIOLOGY - GENERAL TU CARPIO Final Result [facility] [address] [place] [address], [place] [phone] [id number] [facility] [address] [place] [address], * (ABNORMAL) URINALYSIS (06/01/2024 2:58 PM CONTROLLER INSTRUCTOR) COLOR (U) YELLOW 06/01/2024 3:18 PM CONTROLLER INSTRUCTOR [facility] TRANSPARENCY CLEAR 06/01/2024 3:18 PM CONTROLLER INSTRUCTOR [facility] SPECIFIC GRAVITY (U) 1.020 1.000 - 1.025 06/01/2024 3:18 PM CONTROLLER INSTRUCTOR [facility] U PH 6.5 5.0 - 8.0 06/01/2024 3:18 PM CONTROLLER INSTRUCTOR [facility] LEUKOCYTES (U) 3+(A) NEGATIVE 06/01/2024 3:18 PM CONTROLLER INSTRUCTOR [facility] NITRITES POSITIVE(A) NEGATIVE 06/01/2024 3:18 PM CONTROLLER INSTRUCTOR [facility] PROTEIN RANDOM (U) NEGATIVE NEGATIVE 06/01/2024 3:18 PM CONTROLLER INSTRUCTOR [facility] GLUCOSE (U) NEGATIVE NEGATIVE 06/01/2024 3:18 PM CONTROLLER INSTRUCTOR [facility] KETONES MG/DL (U) NEGATIVE NEGATIVE 06/01/2024 3:18 PM CONTROLLER INSTRUCTOR [facility] UROBILINOGEN 0.2 <1.0 EU/DL 06/01/2024 3:18 PM CONTROLLER INSTRUCTOR [facility] BILIRUBIN (U) NEGATIVE NEGATIVE 06/01/2024 3:18 PM CONTROLLER INSTRUCTOR [facility] BLOOD (U) NEGATIVE NEGATIVE 06/01/2024 3:18 PM CONTROLLER INSTRUCTOR [facility] WBC/HPF 5-10(A) 0 - 5 /HPF 06/01/2024 3:18 PM CONTROLLER INSTRUCTOR [facility] RBC/HPF 0-5 0 - 5 /HPF 06/01/2024 3:18 PM CONTROLLER INSTRUCTOR [facility] EPI/LPF RARE /LPF 06/01/2024 3:18 PM CONTROLLER INSTRUCTOR [facility] BACTERIA (U) 3+ /HPF 06/01/2024 3:18 PM CONTROLLER INSTRUCTOR [facility] OTHER CASTS (U) HYALINE /LPF 3:18 PM CONTROLLER INSTRUCTOR [facility] Comment:5-10 URINE SPECIMEN OBTAINED VIA INDWELLING URINARY CATHETER / Unknown 06/01/2024 2:58 PM CONTROLLER INSTRUCTOR us Mairam Watkins MD URINE ORDERABLES Final Resu lt [facility] [address] [place] [address], * XR CHEST PORTABLE (06/01/2024 2:42 PM CONTROLLER INSTRUCTOR) Anatomical Region Laterality Modality Chest Radiographic Betsey ging 06/01/2024 2:59 PM CONTROLLER INSTRUCTOR Impressions 06/01/2024 3:02 PM CONTROLLER INSTRUCTOR IMPRESSION: No acute cardiopulmonary process identified. Ordered By: MARIAM WATKINS Interpreted By: Morgan Thornton MD, 06/01/2024 2:59 PM Narrative 06/01/2024 3:02 PM CONTROLLER INSTRUCTOR [address] [place] [address] Examination: Portable chest. Exam time: 1407 hours. Clinical history: Chest pain. Comparison: 05/24/2024 ([facility]). Technique: ??AP ??upright view. Findings: Allowing for differences in projection and rotation, the cardiomediastinal silhouette is stable. Allowing for projection, the heart size is normal. Pulmonary vascularity is within normal limits. Left-sided transvenous pacemaker remains in place with stable positioning of its leads. Right-sided PICC line remains in place terminating in the SVC. No acute infiltrates or effusions are identified. The visualized bony thorax is stable. Procedure Note Morgan Thornton MD - 06/01/[address] [place] [address] Examination: Portable chest. Exam time: 1407 hours. Clinical history: Chest pain. Comparison: 05/24/2024 ([facility]). Technique: AP upright view. Findings: Allowing for differences in projection and rotation, thecardiomediastinal silhouette is stable. Allowing for projection, the heartsize is normal. Pulmonary vascularity is within normal limits. Left-sidedtransvenous pacemaker remains in place with stable positioning of itsleads. Right-sided PICC line remains in place terminating in the SVC. Noacute infiltrates or effusions are identified. The visualized bony thoraxis stable. IMPRESSION: No acute cardiopulmonary process identified. Ordered By: MARIAM WATKINS Interpreted By: Morgan Thornton MD, 06/01/2024 2:59 PM us Mariam Watkins MD GENERAL IMAGING Final Resul t * ECG 12 lead (06/01/2024 2:31 PM CONTROLLER INSTRUCTOR) 06/01/2024 2:31 PM CONTROLLER INSTRUCTOR Narrative [facility] - 06/01/2024 7:24 PM CONTROLLER INSTRUCTOR ? [facility] ?[address] [place], [place] ??[address] ? Test Date: ?2024-06-01 Pat Name: ? ANNIE CROCKER ?Department: ?? 3 ? Room: ? EXAM 606 Gender: ? Male ? Hogshead Dumper: ?? : ?1945 ? Requested By: MARIAM WATKINS Order Number: [id number] ? Rhiannon PEREZ: ?? Josseline Cordero ? Measurements Intervals ?[place] ? Rate: ? 59 ? P: ? CO: ? 0 ?QRS: ?268 QRSD: ? 181 ?T: ?85 QT: ? 513 ? QTc: ?512 ? Interpretive Statements ELECTRONIC VENTRICULAR PACEMAKER ABNORMAL RHYTHM ECG ROLLER INSTRUCTOR Procedure Note Josseline Cordero MD - 06/01/[address] [place] [address] Test Date: 2024-06-01 Pat Name: ANNIE CROCKER Department: 3 Room: [facility] 60 Gender: Male Hogshead Dumper: : 1945 Requested By: MARIAM WATKINS Order Number: [id number] Rhiannon MD: Josseline Cordero Measurements Intervals [place] Rate: 59 P: CO: 0 QRS: 268 QRSD: 181 T: 85 QT: 513 QTc: 512 Interpretive Statements ELECTRONIC VENTRICULAR PACEMAKER ABNORMAL RHYTHM ECG ROLLER INSTRUCTOR us Mariam Watkins MD ECG ORDERABLES Final Resul t [facility] * CULTURE, BACTERIA, BLOOD (06/01/2024 2:26 PM CONTROLLER INSTRUCTOR) SPEC DESCRIPTION BLOOD 06/01/2024 2:08 PM CONTROLLER INSTRUCTOR [facility] SPECIAL REQUESTS NO SPECIAL REQUEST 06/01/2024 2:08 PM CONTROLLER INSTRUCTOR [facility] CULTURE RESULT NO GROWTH 5 DAYS 06/06/2024 11:14 AM CONTROLLER INSTRUCTOR [facility] BLOOD SPECIMEN OBTAINED FOR BLOOD CULTURE / Unknown 06/01/2024 2:26 PM CONTROLLER INSTRUCTOR 06/01/2024 2:35 PM CONTROLLER INSTRUCTOR us Mariam Watkins MD MICROBIOLOGY - GENERAL ORDE RABLES Final Result [address] [address], * (ABNORMAL) PRO-BRAIN NATRIURETIC PEPTIDE (06/01/2024 2:26 PM CONTROLLER INSTRUCTOR) PRO-B TYPE NATRIURETIC PEPTIDE 2,814(H) <450 PG/ML 06/01/2024 3:04 PM CONTROLLER INSTRUCTOR [facility] Comment: CUT POINTS ESTABLISHED BY INTERNATIONAL [...] OF 89% AND 72% FOR ACUTE CHF. 06/01/2024 2:26 PM CONTROLLER INSTRUCTOR us Mariam Watkins MD LABORATORY Final Resul t [facility] [address] [place] [address], * LACTIC ACID W REFLEX (SEPSIS) (06/01/2024 2:26 PM CONTROLLER INSTRUCTOR) LACTIC ACID VENOUS 2.0 0.4 - 2.0 MMOL/L 06/01/2024 2:55 PM CONTROLLER INSTRUCTOR [facility] 06/01/2024 2:26 PM CONTROLLER INSTRUCTOR us Mariam Watkins MD LABORATORY Final Resul t [facility] [address] [place] [address], * TROPONIN, QUANT (06/01/2024 2:26 PM CONTROLLER INSTRUCTOR) TROPONIN I HIGH SENSITIVITY 39 0 - 76 ng/L 06/01/2024 3:04 PM CONTROLLER INSTRUCTOR [facility] 06/01/2024 2:26 PM CONTROLLER INSTRUCTOR us Mariam Watkins MD LABORATORY Final Resul t Performing Organization Address [facility] Co de Phone Number [facility] [address] [place] [address], [place] [phone] * (ABNORMAL) COMPREHENSIVE METABOLIC PANEL (06/01/2024 2:26 PM CONTROLLER INSTRUCTOR) SODIUM S/P/B 141 136 - 145 MMOL/L 06/01/2024 3:04 PM [facility] POTASSIUM S/P/B 4.1 3.5 - 5.1 MMOL/L 06/01/2024 3:04 PM [facility] CHLORIDE S/P/B 102 98 - 107 MMOL/L 06/01/2024 3:04 PM [facility] CO2 31.9 21.0 - 32.0 MMOL/L 06/01/2024 3:04 PM [facility] GLUCOSE 211(H) 70 - 99 MG/DL 06/01/2024 3:04 PM [facility] Comment: FASTING GLUCOSE 100 TO 125 MG/DL IS CONSISTENT WITH IMPAIRED FASTING GLUCOSE. FASTING GLUCOSE >125 MG/DL IS CONSISTENT WITH DIABETES. RANDOM GLUCOSE >200 MG/DL WITH HYPERGLYCEMIC SYMPTOMS IS CONSISTENT WITH DIABETES. PER ADA GUIDELINES BUN 33(H) 6 - 24 MG/DL 06/01/2024 3:04 PM [facility] CREATININE S/P/B 0.99 0.70 - 1.30 MG/DL 06/01/2024 3:04 PM [facility] CALCIUM S/P/B 9.0 8.4 - 10.5 MG/DL 06/01/2024 3:04 PM [facility] BILIRUBIN TOTAL S/P/B 0.7 0.2 - 1.0 MG/DL 06/01/2024 3:04 PM [facility] Comment: THIS ASSAY IS NOT RECOMMENDED FOR PATIENTS UNDERGOING TREATMENT WITH ELTROMBOPAG DUE TO THE POTENTIAL FOR FALSELY ELEVATED RESULTS. ALKALINE PHOSPHATASE S/P/B 82 45 - 115 U/L 06/01/2024 3:04 PM [facility] AST 25 15 - 37 U/L 06/01/2024 3:04 PM [facility] ALT 20 16 - 63 U/L 06/01/2024 3:04 PM [facility] TOTAL PROTEIN S/P/B 6.9 6.4 - 8.2 G/DL 06/01/2024 3:04 PM [facility] ALBUMIN S/P/B 2.5(L) 3.4 - 5.0 G/DL 06/01/2024 3:04 PM [facility] ANION GAP 7.1 5.0 - 15.0 MMOL/L 06/01/2024 3:04 PM [facility] OSMOLALITY (CALC) 306 MOSM/KG 024 3:04 PM [facility] Comment:REFERENCE RANGE NOT ESTABLISHED GFR ESTIMATE 77(L) >89 ML/MIN/1. 73 M2 06/01/2024 3:04 PM [facility] GFR NOTES GFR REFERENCE S: 06/01/2024 3:04 PM [facility] Comment: THE ESTIMATED GFR IS CALCULATED [...] ml/min/1.73 m2 G5,KIDNEY FAILURE: <15 ml/min/1.73 m2 06/01/2024 2:26 PM CONTROLLER INSTRUCTOR us Mariam Watkins MD LABORATORY Final Resul t [facility] [address] [place] [address], * (ABNORMAL) CBC W/DIFF AUTOMATED (06/01/2024 2:26 PM CONTROLLER INSTRUCTOR) WBC 11.22(H) 4.00 - 10.80 x10'3/uL 06/01/2024 2:37 PM CONTROLLER INSTRUCTOR [facility] RBC 4.17(L) 4.50 - 6.10 x10'6/uL 06/01/2024 2:37 PM CONTROLLER INSTRUCTOR [facility] HGB 11.0(L) 13.0 - 18.0 G/DL 06/01/2024 2:37 PM CONTROLLER INSTRUCTOR [facility] HCT 36.2(L) 37.0 - 52.0 % 06/01/2024 2:37 PM CONTROLLER INSTRUCTOR [facility] MCV 86.8 78.0 - 100.0 FL 06/01/2024 2:37 PM CONTROLLER INSTRUCTOR [facility] MCH 26.4(L) 27.0 - 31.0 PG 06/01/2024 2:37 PM CONTROLLER INSTRUCTOR [facility] MCHC 30.4(L) 33.0 - 36.0 G/DL 06/01/2024 2:37 PM CONTROLLER INSTRUCTOR [facility] RDW 16.2(H) 11.5 - 14.5 % 06/01/2024 2:37 PM CONTROLLER INSTRUCTOR [facility] PLT 304 150 - 350 x10'3/uL 06/01/2024 2:37 PM [facility] MPV 10.2 7.4 - 10.4 FL 06/01/2024 2:37 PM CONTROLLER INSTRUCTOR [facility] CBC COMMENT NORMAL REFERENCE RANGE NOT ESTABLISHED FOR THE PROPORTIONAL LEUKOCYTE DIFFERENTIAL. 06/01/2024 2:37 PM CONTROLLER INSTRUCTOR [facility] NEUTROPHILS % 82.3 % 06/01/2024 2:37 PM CONTROLLER INSTRUCTOR [facility] LYMPHOCYTES % 11.8 % 06/01/2024 2:37 PM CONTROLLER INSTRUCTOR [facility] MONOCYTES % 4.7 % 06/01/2024 2:37 PM CONTROLLER INSTRUCTOR [facility] EOSINOPHILS % 0.5 % 06/01/2024 2:37 PM CONTROLLER INSTRUCTOR [facility] BASOPHILS % 0.3 % 06/01/2024 2:37 PM CONTROLLER INSTRUCTOR [facility] IMMATURE GRANS % 0.4 % 06/01/20 2:37 PM CONTROLLER INSTRUCTOR [facility] NRBC % 0.0 % 06/01/2024 2:37 PM CONTROLLER INSTRUCTOR [facility] ABS. NEUTROPHILS 9.23(H) 1.60 - 8.30 x10'3/uL 06/01/2024 2:37 PM CONTROLLER INSTRUCTOR [facility] ABS. LYMPHOCYTES 1.32 0.80 - 4.70 x10'3/uL 06/01/2024 2:37 PM CONTROLLER INSTRUCTOR [facility] ABS. MONOCYTES 0.53 0.00 - 1.50 x10'3/uL 06/01/2024 2:37 PM CONTROLLER INSTRUCTOR [facility] ABS. EOSINOPHILS 0.06 0.00 - 0.40 x10'3/uL 06/01/2024 2:37 PM CONTROLLER INSTRUCTOR [facility] ABS. BASOPHILS 0.03 0.00 - 0.20 x10'3/uL 06/01/2024 2:37 PM CONTROLLER INSTRUCTOR [facility] ABS. IMMATURE GRANULOCYTES 0.05(H) 0.00 - 0.03 x10'3/uL 06/01/2024 2:37 PM CONTROLLER INSTRUCTOR [facility] ABS. NUCLEATED RBC'S 0.00 0.00 - 0.01 x10'3/uL 06/01/2024 2:37 PM CONTROLLER INSTRUCTOR [facility] 06/01/2024 2:26 PM CONTROLLER INSTRUCTOR Mariam Watkins MD LABORATORY Final Resul t Performing Organization Address City/[facility]/ZIP Co de Phone Number [facility] [address] [place] [address], [place] [phone] * CULTURE, BACTERIA, BLOOD (06/01/2024 2:18 PM CONTROLLER INSTRUCTOR) SPEC DESCRIPTION BLOOD 06/01/2024 2:08 PM CONTROLLER INSTRUCTOR [facility] SPECIAL REQUESTS NO SPECIAL REQUEST 06/01/2024 2:08 PM CONTROLLER INSTRUCTOR [facility] CULTURE RESULT NO GROWTH 5 DAYS 06/06/2024 11:14 AM CONTROLLER INSTRUCTOR [facility] BLOOD SPECIMEN OBTAINED FOR BLOOD CULTURE / Unknown 06/01/2024 2:18 PM CONTROLLER INSTRUCTOR 06/01/2024 2:35 PM CONTROLLER INSTRUCTOR Mariam Watkins MD MICROBIOLOGY - GENERAL [facility] Final Result Performing Organization Address [facility] Co de Phone Number [address] [address], documented in this encounter Visit Diagnoses Diagnosis Chest pain- Primary Chest pain, unspecified Dementia (CMS/HCC [facility]) Dementia, unspecified, without behavioral disturbance History of bacteremia Personal history of other infectious and parasitic disease documented in this encounter Care Teams Traffic Officer Relationship Specialty Start Date End Date Abdon Villela MD [address] [facility] [place] [address] PCP - General FAMILY PRACTICE 12/17/15 Madan Palomo MD [address] [place] [address] EP Entry Level Electrical Engineer CLINICAL CARDIAC ELECTROPHYSIOLOGY 10/08/21 Norma Rowland PA-C [address] [place] [address] Referring Physician PHYSICIAN CROSS TIE CUTTER 12/31/23 documented as of this encounter
--- OUTSIDE RECORDS SUMMARY | 2024-06-08 06:07 | XMS_ITS | Encounter Summary ---
Author Organization [facility] Address [facility] [place], [place] [address] [place] [address] Care Team Providers Care Awning Hanger Supervisor Name Role Phone Abdon Villela MD Primary Care Provider [phone] Madan Palomo MD Unavailable [phone] Norma Rowland PA-C Unavailable [phone] Reason for Visit * Reason Onset Date Comments Results 06/03/2024 Encounter Details Date Type Department Care Team (Late st Contact Info) Description 06/03/2024 Telephone [facility] Multispecialty [facility] [address] [place] [address] Earnest Drake MD [address] [place] [address] Results Social History Tobacco Use Types Packs/Day Years Used Date Smoking Tobacco: Former Cigarettes 1 29.6 0 02/14/1966 - 10/07/1995 Pipe Smokeless Tobacco: Never Alcohol Use Standard Drinks/Week Comments No 0 (1 standard drink = 0.6 oz pur e alcohol) [facility] Utilities Answer Date Recorded In the past 12 months has e electric, gas, oil, or water company [...] Never 07/27/2023 How often do you attend mormon or christianity serv ices? Never 07/27/2023 Do you belong to any clubs o r organizations such as mormon groups, unions, fraternal or athletic groups, or [...] and heating? Not hard at all 05/17/2024 [facility] [place] of Occupat ional Health - Occupational Stress [...] place to sleep or slept in a [place] health care facility (including now)? No 07/27/2023 Housing Stability Vital Sign Answer Malik e Recorded In the last 12 months, was t here a time when you were not able to pay the mortgage or rent on time? No 05/17/2024 In the past 12 months, how m any times have you moved where you were living? 0 05/17/2024 At any time in the past 12 m [facility], were you homeless or living in a [place] health [place] facility (including now)? No 05/17/2024 Sex and Gender [...] Assessment Author Status Yes 05/17/2024 3:11 AM STONER HAND Hector Buchanan RN Active * Do you have difficulty dressing or bathing? Answer Date of Assessment Author Status Yes 05/17/2024 3:11 AM STONER HAND Hector Buchanan RN Active * Because of a physical, mental, or emotional condition, do you have difficulty doing errands alone such as visiting a doctor's office or shopping? Answer Date of Assessment Author Status Yes 05/17/2024 3:11 AM STONER HAND Hector Buchanan RN Active documented as of this encounter Mental Status * Because of a physical, mental, or emotional condition, do you have serious difficulty concentrating, remembering, or making decisions? Answer Entry Date Author Status Yes 05/17/2024 3:11 AM STONER HAND Hector Buchanan RN Active documented in this encounter Progress Notes * Casi Grayson MA - 06/06/2024 2:11 PM CST Returned call and LVM to call the office. ER HAND * Shavon Mccarthy - 06/03/2024 10:10 AM CST Caller name: Denise Facility name: [facility] Call back/ext. #: [phone] MyChart: No- caller prefers to be called via telephone Call details: Denise states that she just faxed or results and request a callback when the office received them please ER HAND * Casi Grayson MA - 06/03/2024 8:22 AM CST Spoke to Justine the pt's nurse at [facility] regarding lab results and she states that she will fax them over when she finds them after taking my fax number. She was v/u. ER HAND documented in this encounter Plan of Treatment Upcoming Encounters Date Type Department Care Team (Latest Contact Info) Description 06/09/2024 2:20 PM STONER HAND Telemedicine [facility] Multispec[facility] [address] [place] [phone] Earnest Drake MD [address] [place], [place] [phone] 06/21/2024 1:30 AM STONER HAND Allied Health/Nurse Visit [facility] [address] [place] [address] Madan Palomo MD [address] [place], [place] [address] 03/01/2025 11:00 AM CDT Allied Health/Nurse Visit [facility] [place] [address] [place] [phone] Norma Rowland PA-C [address] [place], [place] [address] 03/01/2025 11:00 AM CDT Office Visit [facility] [place] [address] [place] [phone] Norma Rowland PA-C [address] [place], [place] [phone] documented as of this encounter Visit Diagnoses Not on filedocumented in this encounter Additional Health Concerns Infection Onset Date Last Indicated Resolved Time ESBL - Extended Spectrum Beta-lactamase 06/01/2024 06/03/2024 COVID-19 Rule Out 06/03/2024 06/03/2024 06/04/2024 5:43 PM STONER HAND Parainfluenza 06/03/2024 06/03/2024 documented as of this encounter Care Teams Awning Hanger Supervisor Relationship Specialty Start Date End Date Abdon Villela MD [address] [place] [phone] PCP - General FAMILY PRACTICE 12/17/15 Madan Palomo MD [address] [place] [address] EP Review Engineer CLINICAL CARDIAC ELECTROPHYSIOLOGY 10/08/21 Norma Rowland PA-C [address] [place] [address] Referring Physician PHYSICIAN SACK LIFTER 12/31/23 documented as of this encounter
--- OUTSIDE RECORDS SUMMARY | 2024-06-08 06:07 | XMS_ITS | Encounter Summary ---
Author Organization [facility] Address [address] [place] [address]. [place], [place] [address] [place] [address] Care Team Providers Care Blower Installer Name Role Phone Abdon Villela MD Primary Care Provider [phone] Madan Palomo MD Unavailable [phone] Norma Rowland PA-C Unavailable [phone] Reason for Visit * Reason Onset Date Comments Appointment Reminder 06/06/2024 Encounter Details Date Type Department Care Team (Late st Contact Info) Description 06/06/2024 Telephone [facility] Multispec[facility] [address] [place] [address] Earnest Drake MD [address] [place] [address] Appointment Reminder Social History Tobacco Use Types Packs/Day Years Used Date Smoking Tobacco: Former Cigarettes 1 29.6 0 02/14/1966 - 10/07/1995 Pipe Smokeless Tobacco: Never Alcohol Use Standard Drinks/Week Comments No 0 (1 standard drink = 0.6 oz pur e alcohol) [facility] Utilities Answer Date Recorded In the [...] Never 07/27/2023 How often do you attend taoism or episcopal serv ices? Never 07/27/2023 Do you belong to any clubs o r organizations such as taoism groups, unions, fraternal or athletic groups, or [...] and heating? Not hard at all 05/17/2024 [facility] [place] of Occupat ional Health - Occupational Stress [...] place to sleep or slept in a [facility]cc (including now)? No 07/27/2023 Housing Stability Vital Sign Answer Malik e Recorded In the last 12 months, was t here a time when you were not able to pay the mortgage or rent on time? No 05/17/2024 In the past 12 months, how m any times have you moved where you were living? 0 05/17/2024 At any time in the past 12 m [facility], were you homeless or living in a [facility] (including now)? No 05/17/2024 Sex and Gender [...] Assessment Author Status Yes 05/17/2024 3:11 AM PAYMENT COLLECTOR Hector Buchanan RN Active * Do you have difficulty dressing or bathing? Answer Date of Assessment Author Status Yes 05/17/2024 3:11 AM PAYMENT COLLECTOR Hector Buchanan RN Active * Because of a physical, mental, or emotional condition, do you have difficulty doing errands alone such as visiting a doctor's office or shopping? Answer Date of Assessment Author Status Yes 05/17/2024 3:11 AM PAYMENT COLLECTOR Hector Buchanan RN Active documented as of this encounter Mental Status * Because of a physical, mental, or emotional condition, do you have serious difficulty concentrating, remembering, or making decisions? Answer Entry Date Author Status Yes 05/17/2024 3:11 AM PAYMENT COLLECTOR Hector Buchanan RN Active documented in this encounter Progress Notes * Casi Grayson MA - 06/06/2024 3:02 PM CST Called [facility] and spoke to pt's nurse Felisha regarding lab results and she states that pt was readmitted into [facility]. She was v/u. I called pt 's daughter and she confirmed that the pt was admitted in [facility] and that they had removed his O2 and he may not make through the day. She was v/u. ENT COLLECTOR documented in this encounter Plan of Treatment Upcoming Encounters Date Type Department Care Team (Latest Contact Info) Description 06/09/2024 2:20 PM PAYMENT COLLECTOR Telemedicine [facility] [address] [place] [phone] Earnest Drake MD [address] [place], [place] [phone] 06/21/2024 1:30 AM PAYMENT COLLECTOR Allied Health/Nurse Visit [facility] [address] [place] [phone] Madan Palomo MD [address] [place], [place] [phone] 03/01/2025 11:00 AM CDT Allied Health/Nurse Visit [facility] [place] [address] [place] [phone] Norma Rowland PA-C [address] [place], [place] [phone] 03/01/2025 11:00 AM CDT Office Visit [facility] [place] [address] [place] [phone] Norma Rowland PA-C [address] [place] [phone] documented as of this encounter Visit Diagnoses Not on filedocumented in this encounter Additional Health Concerns Infection Onset Date Last Indicated Resolved Time ESBL - Extended Spectrum Beta-lactamase 06/01/2024 1 08/04/2023 Parainfluenza 06/03/2024 06/03/2024 documented as of this encounter Care Teams Blower Installer Relationship Specialty Start Date End Date Abdon Villela MD [address] [place] [phone] PCP - General FAMILY PRACTICE 12/17/15 Madan Palomo MD [address] [place] [address] EP Shallot Packer CLINICAL CARDIAC ELECTROPHYSIOLOGY 10/08/21 Norma Rowland PA-C [address] [place] [phone] Referring Physician PHYSICIAN LEASE ATTENDANT 12/31/23 documented as of this encounter
--- OUTSIDE RECORDS SUMMARY | 2024-06-08 06:07 | XMS_ITS | Encounter Summary ---
Author Organization [facility] Address [facility] [place] [address] [place] [address] Care Team Providers Care Chief Procurement Officer Name Role Phone Abdon Villela MD Primary Care Provider [phone] Madan Palomo MD Unavailable [phone] Norma Rowland PA-C Unavailable [phone] Reason for Visit * Auth/Cert (Routine) Specialty Diagnoses / Procedures Referred By Contac t Referred To Contact Diagnoses Hematuria HEMATURIA, UROSEPSIS Procedures NONE Merlin Harrell MD [address] [place] [address] Phone: tel: fax: Referral ID Status Reason Start Date Expiration Date Visits Re quested Visits Authorized [id number] 1 1 Encounter Details Date Type Department Care Team (Late st Contact Info) Description 05/23/2024 1:15 PM SPECIAL DELIVERY CARRIER Anesthesia Event [facility] [address] Cuate Felix MD [address] [facility] [address] [place] [address] Shavon Raymond, DATA MODELING ARCHITECT [address] [facility] [address] [place] [address] (work) Anesthesia Record Procedure Summary Procedure Name Responsible Anesthesiologist Anesthesia Start Time Anesthesia Stop Time USE TRANSESOPHAGEAL ECHO Cuate Felix MD 05/23/24 1315 05/23/24 1333 Events Date Time Event Comment 05/23/2024 1306 1306 AN Anesthesia Prepped 1315 An Start Patient ID and consent checked and patient reassessed. 1315 An Start Data 1318 Face Mask Applied 1318 Bite Block Inserted 1319 An Induction The patient was reevaluated immediately before moderate or deep sedation use and before anesthesia induction. 1319 Anesthesia Ready [address] Landa 1330 An Emergence 1330 Bite Block Removed 1333 Face Mask Removed 1333 an stop data 1333 Post Anesthetic Care Handoff I completed my handoff to the receiving nurse during which we: 1. Identified the patient 2. Identified the responsible provider 3. Reviewed the pertinent medical history 4. Discussed the surgical course 5. Reviewed intra-op anesthesia management and issues during anesthesia 6. Set expectations for post-procedure period 7. Allowed opportunity for questions and acknowledgement of understanding. 1333 An Stop Meds Name Total lidocaine (PF) (XYLOCAINE) 2% injection 100 mg propofol (DIPRIVAN) 200 mg/20 mL injecti on 80 mg phenylephrine (AKIKO-SYNEPHRINE) injection 240 mcg sodium chloride 0.9% infusion 0 mL * Agents Name Ancillary O2 * Blood No blood administrations on file. Lines, Drains, and Airways Type Details Placement Removal Guerra Catheter Yes; Obstruction - U rinary retention/Bladder outlet obstruction; Per Protocol 05/17/24 0943 by 05/24/24 1541 by Rubi Navarro RN Peripheral IV Placement Date: 04/23 02/12; Placement Time: 908; Placed Outside of This Facility?: No; Size: 20 G; Orientation: Right; Location: Antecubital; Site Prep: Chlorhexidine; Local Anesthetic: None; Insertion attempts: 1; Ultrasound-guided Placement?: No; Patient Tolerance: Tolerated well; Removal Date: 05/24/24; Removal Time: 832; Removal Reason: Changed to PICC 05/19/24 0909 by Rubi Navarro RN 05/24/24 08 by Rubi Navarro RN documented in this encounter Social History Tobacco Use Types Packs/Day Years Used Date Smoking Tobacco: Former Cigarettes 1 29.6 0 02/14/1966 - 10/07/1995 Pipe Smokeless Tobacco: Never Alcohol Use Standard Drinks/Week Comments No 0 (1 standard drink = 0.6 oz pur e alcohol) [facility] Utilities Answer Date Recorded In the [...] Never 07/27/2023 How often do you attend faith or bahai serv ices? Never 07/27/2023 Do you belong to any clubs o r organizations such as faith groups, unions, fraternal or athletic groups, or [...] and heating? Not hard at all 05/17/2024 [facility] [place] of Occupat ional Health - Occupational Stress [...] place to sleep or slept in a fci (including now)? No 07/27/2023 Housing Stability Vital Sign Answer Malik e Recorded In the last 12 months, was t here a time when you were not able to pay the mortgage or rent on time? No 05/17/2024 In the past 12 months, how m any times have you moved where you were living? 0 05/17/2024 At any time in the past 12 m [facility], were you homeless or living in a fci (including now)? No 05/17/2024 Sex and Gender [...] Lyn RN Active documented in this encounter OR Notes * Anesthesia Postprocedure Evaluation - Ezequiel Joy CRNA - 05/24/2024 9:20 AM CST Anesthesia Post-op Note Avila Fernandez Procedure(s): USE TRANSESOPHAGEAL ECHO XA GENERIC DIRECTOR PHARMACY SERVICES Anesthesia type: general Vitals: 05/24/24732 BP: 131/56 Vitals: 05/24/24732 Pulse: (!) 59 Vitals: 05/24/24732 Resp: 18 Vitals: 05/24/24427 Temp: 36.6 ??C Vitals: 05/24/24732 SpO2: 96% Patient Location: Inpatient Unit Level of Consciousness: awake, alert and oriented Pain Management: adequate analgesia Airway Patency: patent Respiratory Status: acceptable Cardiovascular Status: acceptable and stable Post-Op Nausea: none Postoperative Hydration: euvolemic Comments: Blood pressure 131/56, pulse (!) 59, temperature 36.6 ??C, temperature source Axillary, resp. rate 18, height 1.829 m (6'), weight 79.2 kg (174 lb 9.7 oz), SpO2 96%. There were no known notable events for this encounter. IAL DELIVERY CARRIER * Anesthesia Postprocedure Evaluation - Cuate Felix MD - 05/23/2024 1:42 PM SPECIAL DELIVERY CARRIER Anesthesia Post-op Note Avila Fernandez Procedure(s): USE TRANSESOPHAGEAL ECHO XA GENERIC DIRECTOR PHARMACY SERVICES Anesthesia type: general Vitals: 05/23/24 1120 BP: 121/64 Vitals: 05/23/24 1120 Pulse: 62 Vitals: 05/23/24 0741 Resp: 20 Vitals: 05/23/24 0741 Temp: 37.3 ??C Vitals: 05/23/24 1120 SpO2: 95% Patient Location: PACU Level of Consciousness: awake Pain Management: adequate analgesia Airway Patency: patent Respiratory Status: acceptable Cardiovascular Status: acceptable Post-Op Nausea: none Postoperative Hydration: euvolemic No notable events documented. IAL DELIVERY CARRIER * Anesthesia Preprocedure Evaluation - Cuate Felix MD - 05/23/2024 12:48 PM SPECIAL DELIVERY CARRIER Anesthesia ROS/MED History Reviewed: Patient summary , ECG, Family history anesthesia, Anesthesia history , Medications , Labs , Images/Studies Pre-Anesthetic State: awake and confused no history of anesthetic complications Pulmonary Cardiovascular Exercise tolerance:poor (+) pacemaker, hypertension, CAD, CHF, arrhythmia, (Paroxysmal), (A-fib), hyperlipidemia Neuro/Psych (+) dementia Substance Use GI/Hepatic/Renal Endo/Other (+) diabetes mellitus, blood dyscrasia, (Anemia) GENERAL COMMENTS -- Tomato -- Diarrhea Past Medical History: No date: A-fib ([facility]) No date: BPH (benign prostatic hyperplasia) No date: CHF (congestive heart failure) ([facility]) No date: Coronary artery disease No date: Dementia without behavioral disturbance ([facility]) No date: Diabetes mellitus ([facility]) No date: Disorder of prostate No date: HLD (hyperlipidemia) No date: Hyperlipidemia No date: Hypertension 05/09/2024: Incarcerated hernia Comment: Reduced in ED 09/10/2022: Pacemaker No date: Respiratory failure ([facility]) No date: Sick sinus syndrome ([facility]) No date: Urinary retention Past Surgical History: 2010: CORONARY ART DIL,ONE VESSEL 05/04/2013: INSER COBIAN PACER XVENOUS ATRIAL No date: PACEMAKER TTE 05/20/24 TTE The left ventricular size is normal. Estimated [...] suspected, consider TATE . Technically challenging study NPO Status: Physical Evaluation Airway Comment: Patient uncooperative for exam. Dental Pulmonary (+) rhonchi, decreased breath sounds, (diminished bilaterally), rales, crackles Cardiovascular Rhythm: irregular Rate: normal Other findings: Blood pressure 121/64, pulse 62, temperature 37.3 ??C, temperature source Axillary,resp. rate 20, height 1.829 m (6'), weight 79.2 kg (174 lb 9.7 oz), SpO2 95%. 05/23/24 05/23/24 0515 0758 WBC 10.42 -- RBC 3.70* -- HGB 9.9* -- HCT 31.9* -- PLT 196 -- NA -- 137 K -- 3.8 CL -- 106 CO2 -- 26.5 AGAP -- 4.5 BUN -- 26* CR -- 0.59* BUNCREATININ -- 44.3* GLU -- 168* CA -- 8.7 STOP-Bang Assessment: Anesthesia Plan ASA 4 Emergent Intravenous Induction Anesthesia type: general Plan for Airway: nasal cannula/simple face mask Plan for Post-op Pain Plan: as per surgeon Discussed potential risks of General Anesthesia including but not limited to corneal abrasion, visual impairment or visual loss, mouth injury, dental damage, sore throat, hoarseness, esophageal injury, awareness under anesthesia, nerve injury due to positioning, aspiration, pneumonia, stroke, cardiac event, adverse drug reactions and . Tiva anesthetic planned and discussed. Possible GA as needed. Patient oriented to self only. This is an urgent procedure as patient has positive blood cultures and suspicious TTE. Possible post procedure ventilation if intubation becomes necessary for any reason. This was discussed with daughter. Informed Consent Anesthetic plan and risks discussed with of whom consent was obtained. Plan/risks discussed with: Discussed with daughter risks and benefits as he is clearly unable to make any choices. . IAL DELIVERY CARRIER documented in this encounter Plan of Treatment Upcoming Encounters Date Type Department Care Team (Latest Contact Info) Description 06/09/2024 2:20 PM SPECIAL DELIVERY CARRIER Telemedicine [facility] Medical [facility] Multispecialty [facility] [address] [place] [phone] Earnest Drake MD [address] [place], [place] [id number] 06/21/2024 1:30 AM SPECIAL DELIVERY CARRIER Allied Health/Nurse Visit [facility] [address] [place] [address] Madan Palomo MD [address] [place] [address] 03/01/2025 11:00 AM CDT Allied Health/Nurse Visit [facility] [place] [phone] Norma Rowland PA-C [address] [place] [address] 03/01/2025 11:00 AM CDT Office Visit [facility] [address] [place] [address] Norma Rowland PA-C [address] [place], [place] [id number] documented as of this encounter Visit Diagnoses Not on filedocumented in this encounter Administered Medications Inactive Administered Medications - up to 3 most recent administrations Medication Order MAR Action Action Date Dose Rate Site lidocaine (PF) (XYLOCAINE) 2 % injection Intravenous, PRN, Starting on Thu05/23/24 at 1319, Until 05/23/24 at 1333, Anesthesia Intra-Op Given 05/23/2024 1:19 PM SPECIAL DELIVERY CARRIER 100 mg phenylephrine (AKIKO-SYNEPHRINE) injection Intravenous, PRN, Starting on 05/23/24 at 1323, Until 05/23/24 at 1333, Anesthesia Intra-Op Given 05/23/2024 1:33 PM SPECIAL DELIVERY CARRIER 80 mcg Given 05/23/2024 1:23 PM SPECIAL DELIVERY CARRIER 160 mcg propofol (DIPRIVAN) IV bolus Intravenous, PRN, Starting on 05/23/24 at 1319, Until 05/23/24 at 1333, Anesthesia Intra-Op Given 05/23/2024 1:29 PM SPECIAL DELIVERY CARRIER 10 mg Given 05/23/2024 1:26 PM SPECIAL DELIVERY CARRIER 10 mg Given 05/23/2024 1:21 PM SPECIAL DELIVERY CARRIER 20 mg sodium chloride 0.9% infusion Intravenous, Continuous PRN, Starting on 05/23/24 at 1310, Until Thu05/23/24 at 1333, Anesthesia Intra-Op New Bag 05/23/2024 1:10 PM SPECIAL DELIVERY CARRIER documented in this encounter Care Teams Chief Procurement Officer Relationship Specialty Start Date End Date Abdon Villela MD [address] [place] [phone] PCP - General FAMILY PRACTICE 12/17/15 Madan Palomo MD [address] [place] [phone] EP Heat Treat Puller CLINICAL CARDIAC ELECTROPHYSIOLOGY 10/08/21 Norma Rowland PA-C [address] [place] [address] Referring Physician PHYSICIAN CRAB CATCHER 12/31/23 documented as of this encounter
--- OUTSIDE RECORDS SUMMARY | 2024-06-08 06:07 | XMS_ITS | Clinical Summary ---
Author Organization [facility] Address [facility] [place] [address] [place] [address] Care Team Providers Care Knot Picker Cloth Name Role Phone Abdon Villela MD Primary Care Provider [phone] Madan Palomo MD Unavailable [phone] Norma Rowland PA-C Unavailable [phone] Allergies Active Allergy Reactions Criticality Noted Date Comments Tomato Diarrhea 12/11/2023 Medications metFORMIN 1000 MG tablet Take 1 tablet (1,000 mg total) by mouth 2 (two) times daily. 5 Active polyethylene glycol powder Take 17 g by mouth daily as needed (constipatio n). 8 Active apixaban (ELIQUIS) 5 MG tablet Take 1 tablet (5 mg total) by mouth 2 (two) times daily. 60 tablet 5 3 Active acetaminophen (TYLENOL) 500 MG tablet Take 2 tablets (1,000 mg total) by mouth every 6 (six) hours as needed for Pain. Active nitroglycerin (NITROSTAT) 0.[address] 1 tablet (0.4 mg total) under the tongue every 5 (five) minutes as needed for Chest Pain. Active furosemide (LASIX) 40 MG tablet Take 1 tablet (40 mg total) by mouth daily. 30 tablet 4 Active potassium chloride CR (KLOR-CON M) 20 MEQ tablet Take 1 tablet (20 mEq total) by mouth daily. 60 tablet 4 Active ferrous sulfate EC 325 (65 Fe) MG tablet Take 1 tablet by mouth daily. Active finasteride (PROSCAR) 5 MG tablet Take 1 tablet (5 mg total) by mouth daily. Active loperamide (IMODIUM) 2 MG capsule Take 1 capsule (2 mg total) by mouth 4 (four) times daily as needed for Diarrhea. Active carvedilol (COREG) 6.25 MG tablet Take 1 tablet (6.25 mg total) by mouth 2 (two) times daily. 90 tablet 3 4 Active lisinopril (PRINIVIL) 5 MG tablet Take 1 tablet (5 mg total) by mouth daily. 90 tablet 3 4 Active vitamin B-12 (CYANOCOBALAMIN) 1000 MCG tablet Take 1 tablet (1,000 mcg total) by mouth daily. Active DAPTOmycin 600 mg in sodium chloride 0.9 % SOLN 100 mLIndications:Se psis, due to unspecified organism, unspecified whether acute organ dysfunction present ([facility]) Inject 600 mg into the vein daily for 37 days. 1 ampule 4 07/01/19 25 Active magnesium oxide (MAG-OX) 400 (240 Mg) MG tablet Take 1 tablet (400 mg total) by mouth 2 (two) times daily. 30 tablet 4 Active magnesium oxide 400 (241.3 Mg) MG tablet Take 1 tablet (400 mg total) by mouth daily. 05/25/20 24 Discontinu ed(Stop Taking at Discharge) atorvastatin (LIPITOR) 80 MG tablet Take 1 tablet (80 mg total) by mouth nightly at bedtime. 05/25/20 24 Discontinu ed(Stop Taking at Discharge) Active Problems Problem Noted Date Diagnosed Date Hematuria 05/16/2024 Acute heart failure ([facility]) 07/28/2023 CHF (congestive heart failure) ([facility]) 07/27/2023 AV block, 2nd degree 07/21/2023 Dehydration 01/17/2023 S/p bare metal coronary artery stent 03/27/2020 Chronic diastolic heart failure ([facility] ) 05/05/2018 Chronic anticoagulation 12/19/2015 Cardiac pacemaker in situ 12/13/2015 Chronic atrial fibrillation ([facility]) Sinus node dysfunction ([facility]) 016 Coronary artery disease Hypertension Hyperlipidemia Encounters Date Type Department Care Team Description 06/06/2024 [facility]phone [facility] [address] [place] [phone] Earnest Drake MD Appointment Reminder 06/03/2024 6:18 PM CREDIT COLLECTIONS SPECIALIST - 06/04/2024 9:50 AM [facility] [address] [place] [address] Lionel Banegas DO Altered Mental Status Discharge Disposition: Transfer to [facility] 06/03/2024 Hospital Encounter [facility] Inter[facility] [address] [place] [address] 06/03/2024 Travel 06/03/2024 Telephone [facility] [address] [place] [phone] Earnest Drake MD Results 06/01/2024 1:37 PM CREDIT COLLECTIONS SPECIALIST - 06/01/2024 3:40 PM [facility] [address] [place] [address] Mariam Watkins MD Chest Pain Discharge Disposition: Assisted Facility 06/01/2024 Travel 05/25/2024 Telephone [facility] [address] [place] [phone] Earnest Drake MD Lab Order; Question; Results 05/23/2024 1:15 PM CREDIT COLLECTIONS SPECIALIST Anesthesia Event [facility] [place] [place] [address] Cuate Felix MD McMillian, Angela A, CRNA 05/16/2024 9:12 PM CREDIT COLLECTIONS SPECIALIST - 05/25/2024 3:15 PM CREDIT COLLECTIONS SPECIALIST Hospital Encounter [facility] 3rd Floor [facility] [address] Merlin Harrell MD Elayyan, MD Smith Diaz Dominique C, MD Tran, MD Angela Pelaez, MD Traci Chambers, Nancy R, SLUDGE MILL OPERATOR Discharge Disposition: Assisted Facility 05/16/2024 10:59 AM CREDIT COLLECTIONS SPECIALIST - 05/16/2024 8:00 PM CREDIT COLLECTIONS SPECIALIST [facility] [place] [facility] [place] [address] Mariam Watkins MD Chest Pain Discharge Disposition: Transfer to [facility] 05/16/2024 Travel 05/09/2024 6:55 PM CREDIT COLLECTIONS SPECIALIST - 05/09/2024 9:10 PM [facility] [place] [facility] [place] [address] Arias Franco MD Abdominal Pain Discharge Disposition: Home or Self Care (Routine Discharge) 05/09/2024 Travel 04/03/2024 10:36 AM CDT - 04/03/2024 11:59 PM CDT Hospital Encounter [place] [address] Chris Oliva MD Discharge Disposition: Home or Self Care (Routine Discharge) 04/03/[address] [facility] [place] [address] Chris Oliva MD 03/23/2024 10:36 AM CDT - 03/23/2024 11:59 PM CDT Hospital Encounter [facility] [place] [address] Chris Oliva MD Discharge Disposition: Home or Self Care (Routine Discharge) 03/23/[address] [place] [address] Chris Oliva MD from Last 3 Months Immunizations Name Administration Dates Next Due Influenza Adult (Generic) 2020 Family History Medical History Relation Comments Heart Attack Mother Relation Status Comments Brother Alive Father Mother Social History Tobacco Use Types Packs/Day Years Used Date Smoking Tobacco: Former Cigarettes 1 29.6 0 02/14/1966 - 10/07/1995 Pipe Smokeless Tobacco: Never Tobacco Cessation:Counseling Given: No Alcohol Use Standard Drinks/Week Comments No 0 (1 standard drink = 0.6 oz pur e alcohol) [facility] Utilities Answer Date Recorded In the past [...] Never 07/27/2023 How often do you attend yarsanism or mosque serv ices? Never 07/27/2023 Do you belong to any clubs o r organizations such as yarsanism groups, unions, fraternal or athletic groups, or [...] and heating? Not hard at all 05/17/2024 [facility] Occupat ional Health - Occupational Stress [...] place to sleep or slept in a fpc (including now)? No 07/27/2023 Housing Stability Vital Sign Answer Malik e Recorded In the last 12 months, was t here a time when you were not able to pay the mortgage or rent on time? No 05/17/2024 In the past 12 months, how m any times have you moved where you were living? 0 05/17/2024 At any time in the past 12 m [facility], were you homeless or living in a fpc (including now)? No 05/17/2024 Sex and Gender Information Value Date Recorded Sex Assigned at Not on file Legal Sex Male 8:13 PM CDT Gender Identity Not on file Sexual Orientation Not on file Occupation Industry Job Start Date Job End Date Not on file Not on file Not on file Not on file Last Filed Vital Signs Vital Sign Reading Time Taken Comments Blood Pressure 151/89 06/04/2024 9:44 AM CREDIT COLLECTIONS SPECIALIST Pulse 61 06/04/2024 9:44 AM CREDIT COLLECTIONS SPECIALIST Temperature 36.7 ??C (98 ??F) 06/04/2024 9:44 AM CREDIT COLLECTIONS SPECIALIST Respiratory Rate 25 06/04/2024 9:44 AM CREDIT COLLECTIONS SPECIALIST Oxygen Saturation 95% 06/04/2024 9:44 AM CREDIT COLLECTIONS SPECIALIST Inhaled Oxygen Concentration - - Weight 63.5 kg (140 lb) 06/03/2024 6:15 PM CREDIT COLLECTIONS SPECIALIST Height 182.9 cm (6') 06/03/2024 6:15 PM CREDIT COLLECTIONS SPECIALIST Body Mass Index 18.99 06/03/2024 6:15 PM CREDIT COLLECTIONS SPECIALIST Plan of Treatment Upcoming Encounters Date Type Department Care Team (Latest Contact Info) Description 06/09/2024 2:20 PM CREDIT COLLECTIONS SPECIALIST Telemedicine [facility] Medical Group Multispecialty [facility] [address] [place] [phone] Earnest Drake MD [address] [place], [place] [phone] 06/21/2024 1:30 AM CREDIT COLLECTIONS SPECIALIST Allied Health/Nurse Visit [facility] [address] [place] [phone] Madan Palomo MD [address] [place], [place] [address] 03/01/2025 11:00 AM CDT Allied Health/Nurse Visit [facility] [place] [address] [place] [phone] Norma Rowland PA-C [address] [place], [place] [phone] 03/01/2025 11:00 AM CDT Office Visit [facility] [place] [address] Norma Rowland PA-C [address] [place], [place] [phone] Health Maintenance Due Date Last Done Comments ASCVD LDL 1944 ASCVD Statin 1944 Pneumococcal Vaccine: 65+ Years (1 of 2 - PCV) 1950 DTaP, Tdap and Td Vaccines ( 1 - Tdap) 1963 Zoster Vaccines (1 of 2) 1994 Annual Medicare Wellness Visit 2009 RSV Immunization or 60+ Years (1 - 1-dose 75+ series) 2019 COVID-19 Vaccine (3 - 2023-2 5 season) 2024 09/26/2020, 08/28/2020 Influenza Adult (#1) 2024 2020 Meningococcal Vaccine Aged Out No aaliyah celestino eligible based on patient's age to complete this topic RSV Immunizations Under 20 Months Aged Out No longer eligible b ased on patient's age to complete this topic Medical Devices Implanted Type Area Animal Care Taker Device Identifier Shelf Expiration Date Model / Serial / Lot Medtronic Ra-05/04/2013 Implanted: (Quantity not on file) Lead Implant [employer] 4292-53 / [id number] / Medtronic Rv-05/04/2013 Implanted: (Quantity not on file) Lead Implant [employer] 4092-58 / [id number] / Medtronic Lv/Cs-09/17/19 23 Implanted:Qty : 1 on 09/16/2022 by Madan Palomo MD Lead Implant Heart [employer] 06/06/2024 [id number] / [id number] / Description:Attain Performa MRI SureScan Medtronic Percepta Quad Biv-09/16/2022 Implanted:Qty : 1 on 09/16/2022 by Madan Palomo MD Pacemaker Left: Pectoral [employer] 02/17/2024 [id number] / [id number] / Description:DX: High AVB Percepta Quad HEALTHCARE SALES REPRESENTATIVE-P Explanted Type Area Animal Care Taker Device Identifier Shelf Expiration Date Model / Serial / Lot Medtronic Adapta-05/04/20 13 Implanted:05/04 (Quantity not on file) Explanted:09/16 by Madan Palomo MD (Quantity not on file) Pacemaker [id number] / [id number] / Procedures Procedure Name Priority Date/Time Associated Diagnosis Comments POCT GLUCOSE - ESPINOSA DOCKED DEVICE Routine 06/04/2024 9:10 AM CREDIT COLLECTIONS SPECIALIST BLOOD GAS, ARTERIAL LAB STAT 06/04/20 5:05 AM CREDIT COLLECTIONS SPECIALIST PRO-BRAIN NATRIURETIC PEPTIDE STAT 06/04/2024 5:00 AM CREDIT COLLECTIONS SPECIALIST BLOOD GAS, ARTERIAL LAB STAT 06/04/20 2:50 AM CREDIT COLLECTIONS SPECIALIST POCT GLUCOSE - ESPINOSA DOCKED DEVICE Routine 06/03/2024 10:46 PM CREDIT COLLECTIONS SPECIALIST RESPIRATORY PCR PANEL 2 STAT 06/03/20 9:42 [address]LE[employer] [address] CHEST+ABD+PEL W CON STAT 8:04 PM CREDIT COLLECTIONS SPECIALIST CULTURE, BACTERIA, BLOOD STAT 06/03/2024 8:00 PM CREDIT COLLECTIONS SPECIALIST URINE BACTERIA CULTURE STAT 6:49 PM CREDIT COLLECTIONS SPECIALIST HC URINALYSIS AUTO W/MICRO STAT 06/03/2024 6:49 PM CREDIT COLLECTIONS SPECIALIST DRUG SCREEN RAPID STAT 06/03/2024 6:4 [address]LE[address] HEAD WO CON STAT 06/03/2024 6:34 PM CREDIT COLLECTIONS SPECIALIST LACTIC ACID W REFLEX (SEPSIS) STAT 06/03/2024 6:25 PM CREDIT COLLECTIONS SPECIALIST ETHANOL STAT 06/03/2024 6:25 PM CREDIT COLLECTIONS SPECIALIST COMPREHENSIVE METABOLIC PANEL STAT 06/03/2024 6:25 PM CREDIT COLLECTIONS SPECIALIST CBC W/DIFF AUTOMATED STAT 06/03/2024 6:25 PM CREDIT COLLECTIONS SPECIALIST ECG 12-LEAD STAT 06/03/2024 6:21 PM CREDIT COLLECTIONS SPECIALIST URINE BACTERIA CULTURE STAT 2:58 PM CREDIT COLLECTIONS SPECIALIST HC URINALYSIS AUTO W/MICRO STAT 06/01/2024 2:58 PM CREDIT COLLECTIONS SPECIALIST XR CHEST PORTABLE STAT 06/01/2024 2:4 2 PM CREDIT COLLECTIONS SPECIALIST ECG 12-LEAD Routine 06/01/2024 2:31 PM CREDIT COLLECTIONS SPECIALIST CULTURE, BACTERIA, BLOOD STAT 06/01/2024 2:26 PM CREDIT COLLECTIONS SPECIALIST PRO-BRAIN NATRIURETIC PEPTIDE STAT 06/01/2024 2:26 PM CREDIT COLLECTIONS SPECIALIST LACTIC ACID W REFLEX (SEPSIS) STAT 06/01/2024 2:26 PM CREDIT COLLECTIONS SPECIALIST TROPONIN, QUANT STAT 06/01/2024 2:26 PM CREDIT COLLECTIONS SPECIALIST COMPREHENSIVE METABOLIC PANEL STAT 06/01/2024 2:26 PM CREDIT COLLECTIONS SPECIALIST CBC W/DIFF AUTOMATED STAT 06/01/2024 2:26 PM CREDIT COLLECTIONS SPECIALIST CULTURE, BACTERIA, BLOOD STAT 06/01/2024 2:18 PM CREDIT COLLECTIONS SPECIALIST POCT GLUCOSE - ESPINOSA DOCKED DEVICE Routine 05/25/2024 11:23 AM CREDIT COLLECTIONS SPECIALIST POCT GLUCOSE - ESPINOSA DOCKED DEVICE Routine 05/25/2024 6:21 AM CREDIT COLLECTIONS SPECIALIST COMPREHENSIVE METABOLIC PANEL Routine 05/25/2024 4:35 AM CREDIT COLLECTIONS SPECIALIST CBC W/DIFF AUTOMATED Routine 05/25/2024 4:35 AM CREDIT COLLECTIONS SPECIALIST MAGNESIUM Routine 05/25/2024 4:35 AM CREDIT COLLECTIONS SPECIALIST POCT GLUCOSE - ESPINOSA DOCKED DEVICE Routine 05/24/2024 7:37 PM CREDIT COLLECTIONS SPECIALIST POCT GLUCOSE - ESPINOSA DOCKED DEVICE Routine 05/24/2024 4:32 PM CREDIT COLLECTIONS SPECIALIST XR SPEECH SWALLOW?VICTOR MANUEL ONLY Today 05/24/2024 1:47 PM CREDIT COLLECTIONS SPECIALIST POCT GLUCOSE - ESPINOSA DOCKED DEVICE Routine 05/24/2024 11:01 AM CREDIT COLLECTIONS SPECIALIST POCT GLUCOSE - ESPINOSA DOCKED DEVICE Routine 05/24/2024 6:16 AM CREDIT COLLECTIONS SPECIALIST CBC W/DIFF AUTOMATED Routine 05/24/2024 5:15 AM CREDIT COLLECTIONS SPECIALIST BASIC METABOLIC PANEL Routine 05/24/2024 5:15 AM CREDIT COLLECTIONS SPECIALIST MAGNESIUM Routine 05/24/2024 5:15 AM CREDIT COLLECTIONS SPECIALIST XR CHEST PORTABLE STAT 05/24/2024 12: 17 AM CREDIT COLLECTIONS SPECIALIST POCT GLUCOSE - ESPINOSA DOCKED DEVICE Routine 05/23/2024 7:48 PM CREDIT COLLECTIONS SPECIALIST POCT GLUCOSE - ESPINOSA DOCKED DEVICE Routine 05/23/2024 3:50 PM CREDIT COLLECTIONS SPECIALIST USE TRANSESOPHAGEAL ECHO Today 05/23/2024 2:50 PM CREDIT COLLECTIONS SPECIALIST POCT GLUCOSE - ESPINOSA DOCKED DEVICE Routine 05/23/2024 10:43 AM CREDIT COLLECTIONS SPECIALIST POCT GLUCOSE - ESPINOSA DOCKED DEVICE Routine 05/23/2024 8:41 AM CREDIT COLLECTIONS SPECIALIST MAGNESIUM STAT 05/23/2024 7:58 AM CREDIT COLLECTIONS SPECIALIST CK (CPK) STAT 05/23/2024 7:58 AM CREDIT COLLECTIONS SPECIALIST BASIC METABOLIC PANEL STAT 05/23/2024 7:58 AM CREDIT COLLECTIONS SPECIALIST POCT GLUCOSE - ESPINOSA DOCKED DEVICE Routine 05/23/2024 6:17 AM CREDIT COLLECTIONS SPECIALIST CBC W/DIFF AUTOMATED Routine 05/23/2024 5:15 AM CREDIT COLLECTIONS SPECIALIST POCT GLUCOSE - ESPINOSA DOCKED DEVICE Routine 05/22/2024 7:43 PM CREDIT COLLECTIONS SPECIALIST POCT GLUCOSE - ESPINOSA DOCKED DEVICE Routine 05/22/2024 3:35 PM CREDIT COLLECTIONS SPECIALIST POCT GLUCOSE - ESPINOSA DOCKED DEVICE Routine 05/22/2024 11:04 AM CREDIT COLLECTIONS SPECIALIST POCT GLUCOSE - ESPINOSA DOCKED DEVICE Routine 05/22/2024 6:32 AM CREDIT COLLECTIONS SPECIALIST CBC W/DIFF AUTOMATED Routine 05/22/2024 5:26 AM CREDIT COLLECTIONS SPECIALIST BASIC METABOLIC PANEL Routine 05/22/2024 5:26 AM CREDIT COLLECTIONS SPECIALIST MAGNESIUM Routine 05/22/2024 5:26 AM CREDIT COLLECTIONS SPECIALIST POCT GLUCOSE - ESPINOSA DOCKED DEVICE Routine 05/21/2024 8:43 PM CREDIT COLLECTIONS SPECIALIST POCT GLUCOSE - ESPINOSA DOCKED DEVICE Routine 05/21/2024 3:52 PM CREDIT COLLECTIONS SPECIALIST POCT GLUCOSE - ESPINOSA DOCKED DEVICE Routine 05/21/2024 10:26 AM CREDIT COLLECTIONS SPECIALIST CULTURE, BACTERIA, BLOOD Routine 05/21/2024 10:25 AM CREDIT COLLECTIONS SPECIALIST POCT GLUCOSE - ESPINOSA DOCKED DEVICE Routine 05/21/2024 7:59 AM CREDIT COLLECTIONS SPECIALIST CK (CPK) Routine 05/21/2024 4:28 AM CREDIT COLLECTIONS SPECIALIST CBC W/DIFF AUTOMATED Routine 05/21/2024 4:28 AM CREDIT COLLECTIONS SPECIALIST BASIC METABOLIC PANEL Routine 05/21/2024 4:28 AM CREDIT COLLECTIONS SPECIALIST MAGNESIUM Routine 05/21/2024 4:28 AM CREDIT COLLECTIONS SPECIALIST POCT GLUCOSE - ESPINOSA DOCKED DEVICE Routine 05/20/2024 8:00 PM CREDIT COLLECTIONS SPECIALIST POCT GLUCOSE - ESPINOSA DOCKED DEVICE Routine 05/20/2024 3:20 PM CREDIT COLLECTIONS SPECIALIST USE ECHOCARDIOGRAM W CON Today 05/20/2024 2:33 PM CREDIT COLLECTIONS SPECIALIST POCT GLUCOSE - ESPINOSA DOCKED DEVICE Routine 05/20/2024 11:29 AM CREDIT COLLECTIONS SPECIALIST POCT GLUCOSE - ESPINOSA DOCKED DEVICE Routine 05/20/2024 6:18 AM CREDIT COLLECTIONS SPECIALIST CBC W/DIFF AUTOMATED Routine 05/20/2024 5:18 AM CREDIT COLLECTIONS SPECIALIST BASIC METABOLIC PANEL Routine 05/20/2024 5:18 AM CREDIT COLLECTIONS SPECIALIST VANCOMYCIN Routine 05/20/2024 5:18 AM CREDIT COLLECTIONS SPECIALIST MAGNESIUM Routine 05/20/2024 5:18 AM CREDIT COLLECTIONS SPECIALIST POCT GLUCOSE - ESPINOSA DOCKED DEVICE Routine 05/19/2024 9:11 PM CREDIT COLLECTIONS SPECIALIST POCT GLUCOSE - ESPINOSA DOCKED DEVICE Routine 05/19/2024 3:48 PM CREDIT COLLECTIONS SPECIALIST POCT GLUCOSE - ESPINOSA DOCKED DEVICE Routine 05/19/2024 12:04 PM CREDIT COLLECTIONS SPECIALIST POCT GLUCOSE - ESPINOSA DOCKED DEVICE Routine 05/19/2024 6:01 AM CREDIT COLLECTIONS SPECIALIST CULTURE, BACTERIA, BLOOD Routine 05/19/2024 5:10 AM CREDIT COLLECTIONS SPECIALIST MAGNESIUM Routine 05/19/2024 5:10 AM CREDIT COLLECTIONS SPECIALIST CBC W/DIFF AUTOMATED Routine 05/19/2024 5:10 AM CREDIT COLLECTIONS SPECIALIST BASIC METABOLIC PANEL Routine 05/19/2024 5:10 AM CREDIT COLLECTIONS SPECIALIST POCT GLUCOSE - ESPINOSA DOCKED DEVICE Routine 05/18/2024 8:08 PM CREDIT COLLECTIONS SPECIALIST POCT GLUCOSE - ESPINOSA DOCKED DEVICE Routine 05/18/2024 3:16 PM CREDIT COLLECTIONS SPECIALIST BASIC METABOLIC PANEL Routine 05/18/2024 12:19 PM CREDIT COLLECTIONS SPECIALIST CBC W/DIFF AUTOMATED Routine 05/18/2024 12:19 PM CREDIT COLLECTIONS SPECIALIST POCT GLUCOSE - ESPINOSA DOCKED DEVICE Routine 05/18/2024 11:25 AM CREDIT COLLECTIONS SPECIALIST POCT GLUCOSE - ESPINOSA DOCKED DEVICE Routine 05/18/2024 5:49 AM CREDIT COLLECTIONS SPECIALIST POCT GLUCOSE - ESPINOSA DOCKED DEVICE Routine 05/17/2024 7:44 PM CREDIT COLLECTIONS SPECIALIST POCT GLUCOSE - ESPINOSA DOCKED DEVICE Routine 05/17/2024 3:39 PM CREDIT COLLECTIONS SPECIALIST POCT GLUCOSE - ESPINOSA DOCKED DEVICE Routine 05/17/2024 10:33 AM CREDIT COLLECTIONS SPECIALIST VANCOMYCIN TIMED 05/17/2024 9:22 AM CREDIT COLLECTIONS SPECIALIST TROPONIN, QUANT Routine 05/17/2024 6:10 AM CREDIT COLLECTIONS SPECIALIST BASIC METABOLIC PANEL Routine 05/17/2024 6:10 AM CREDIT COLLECTIONS SPECIALIST THYROID STIM HORMONE TSH Routine 05/17/2024 6:10 AM CREDIT COLLECTIONS SPECIALIST HEMOGLOBIN, GLYCOSYLATED Routine 05/17/2024 6:10 AM CREDIT COLLECTIONS SPECIALIST MAGNESIUM Routine 05/17/2024 6:10 AM CREDIT COLLECTIONS SPECIALIST PROTHROMBIN TIME, VENOUS Routine 05/17/2024 6:10 AM CREDIT COLLECTIONS SPECIALIST CBC W/DIFF AUTOMATED Routine 05/17/2024 6:10 AM CREDIT COLLECTIONS SPECIALIST CULTURE, BLOOD, PCR PANEL Routine 05/17/2024 6:09 AM CREDIT COLLECTIONS SPECIALIST CULTURE, BACTERIA, BLOOD Routine 05/17/2024 6:09 AM CREDIT COLLECTIONS SPECIALIST POCT GLUCOSE - ESPINOSA DOCKED DEVICE Routine 05/17/2024 6:09 AM CREDIT COLLECTIONS SPECIALIST POCT GLUCOSE - ESPINOSA DOCKED DEVICE Routine 05/16/2024 11:11 PM CREDIT COLLECTIONS SPECIALIST LACTIC ACID W REFLEX (SEPSIS) TIMED 05/16/2024 3:45 PM CREDIT COLLECTIONS SPECIALIST LACTIC ACID W REFLEX (SEPSIS) TIMED 05/16/2024 1:33 PM CREDIT COLLECTIONS SPECIALIST URINE BACTERIA CULTURE STAT 11:51 AM CREDIT COLLECTIONS SPECIALIST HC URINALYSIS AUTO W/MICRO STAT 05/16/2024 11:51 AM CREDIT COLLECTIONS SPECIALIST XR CHEST PORTABLE STAT 05/16/2024 11: 43 AM CREDIT COLLECTIONS SPECIALIST INFLUENZA A & B STAT 05/16/2024 11:37 AM CREDIT COLLECTIONS SPECIALIST CORONAVIRUS (COVID-19) ANTIGEN STAT 05/16/2024 11:37 AM CREDIT COLLECTIONS SPECIALIST CULTURE, BACTERIA, BLOOD Routine 05/16/2024 11:33 AM CREDIT COLLECTIONS SPECIALIST LACTIC ACID W REFLEX (SEPSIS) STAT 05/16/2024 11:33 AM CREDIT COLLECTIONS SPECIALIST LIPASE STAT 05/16/2024 11:33 AM CREDIT COLLECTIONS SPECIALIST TROPONIN, QUANT STAT 05/16/2024 11:33 AM CREDIT COLLECTIONS SPECIALIST COMPREHENSIVE METABOLIC PANEL STAT 05/16/2024 11:33 AM CREDIT COLLECTIONS SPECIALIST CBC W/DIFF AUTOMATED STAT 05/16/2024 11:33 AM CREDIT COLLECTIONS SPECIALIST CRITICAL CARE Routine 05/16/2024 11:29 AM CREDIT COLLECTIONS SPECIALIST ECG 12-LEAD Routine 05/16/2024 11:07 AM CREDIT COLLECTIONS [address] ABD+PEL W CON STAT 05/09/2024 7:54 PM CREDIT COLLECTIONS SPECIALIST COMPREHENSIVE METABOLIC PANEL STAT 05/09/2024 7:15 PM CREDIT COLLECTIONS SPECIALIST CBC W/DIFF AUTOMATED STAT 05/09/2024 7:15 PM CREDIT COLLECTIONS SPECIALIST OCCULT BLOOD, FECES Routine 04/03/2024 9 :30 AM CDT Anemia OCCULT BLOOD, FECES Routine 03/23/2024 9 :05 AM CDT Anemia from Last 3 Months Results * (ABNORMAL) POCT glucose (06/04/2024 9:10 AM CREDIT COLLECTIONS SPECIALIST) Only the most recent of38 resultswithin the time period is included. GLUCOSE POC 188(H) 70 - 99 MG/DL 06/04/2024 9:11 AM CREDIT COLLECTIONS SPECIALIST [facility] 06/04/2024 9:10 AM CREDIT COLLECTIONS SPECIALIST Lionel Banegas DO POCT ORDERABLES - DEVICE Final R esult [facility] [address] [place] [address], * (ABNORMAL) ARTERIAL BLOOD GAS (06/04/2024 5:05 AM CREDIT COLLECTIONS SPECIALIST) Only the most recent of2 resultswithin the time period is included. PH ARTERIAL 7.42 7.35 - 7.45 06/04/2024 5:18 AM CREDIT COLLECTIONS SPECIALIST [facility] PCO2 46.0(H) 35 - 45 [facility] 06/04/2024 5:18 AM CREDIT COLLECTIONS SPECIALIST [facility] PO2 53.0(L) 83 - 108 [facility] 06/04/2024 5:18 AM CREDIT COLLECTIONS SPECIALIST [facility] TOTAL CO2 ARTERIAL 31.2(H) 19.0 - 24.0 MMOL/L 06/04/2024 5:18 AM [facility] BASE EXCESS 4.5(H) 0 - 3 MMOL/L 06/04/2024 5:18 AM [facility] O2 SATURATION 88(L) 94.0 - 98.0 % 06/04/2024 5:18 AM [facility] BICARB ARTERIAL 29.8(H) 21.0 - 28.0 MMOL/L 06/04/2024 5:18 AM [facility] DENISE TEST N/A 06/04/2024 5:09 AM [facility] O2 ADMIN ARTERIAL 40% C PAP 06/04/2024 5:09 AM [facility] DRAW SITE ARTERIAL LT BRACH 06/04/2024 5:09 AM [facility] 06/04/2024 5:05 AM CREDIT COLLECTIONS SPECIALIST Lionel Banegas DO LABORATORY Final Result [facility] [address] [place] [address], * (ABNORMAL) PRO-BRAIN NATRIURETIC PEPTIDE (06/04/2024 5:00 AM CREDIT COLLECTIONS SPECIALIST) Only the most recent of2 resultswithin the time period is included. PRO-B TYPE NATRIURETIC PEPTIDE 5,768(H) <450 PG/ML 06/04/2024 5:33 AM [facility] Comment: CUT POINTS ESTABLISHED BY [...] 72% FOR ACUTE CHF. 06/04/2024 5:00 AM CREDIT COLLECTIONS SPECIALIST Lionel Banegas DO LABORATORY Final Result [facility] [address] [place] [address], [place] [phone] * (ABNORMAL) RESPIRATORY PCR PANEL 2 (06/03/2024 9:42 PM CREDIT COLLECTIONS SPECIALIST) Pathologist [facility] ADENOVIRUS PCR (RESP) NOT DETECTED NOT DETECTED 06/04/2024 5:43 PM CREDIT COLLECTIONS SPECIALIST [facility] CORONAVIRUS 229E PCR (RESP) NOT DETECTED NOT DETECTED 06/04/2024 5:43 PM CREDIT COLLECTIONS SPECIALIST [facility] CORONAVIRUS HKU1 PCR (RESP) NOT DETECTED NOT DETECTED 06/04/2024 5:43 PM CREDIT COLLECTIONS SPECIALIST [facility] CORONAVIRUS NL63 PCR (RESP) NOT DETECTED NOT DETECTED 06/04/2024 5:43 PM CREDIT COLLECTIONS SPECIALIST [facility] CORONAVIRUS OC43 PCR (RESP) NOT DETECTED NOT DETECTED 06/04/2024 5:43 PM CREDIT COLLECTIONS SPECIALIST [facility] METAPNEUMOVIRUS PCR (RESP) NOT DETECTED NOT DETECTED 06/04/2024 5:43 PM CREDIT COLLECTIONS SPECIALIST [facility] RHINOVIRUS/ENTEROV IRUS PCR (RESP) NOT DETECTED NOT DETECTED 06/04/2024 5:43 PM CREDIT COLLECTIONS SPECIALIST [facility] INFLUENZA A PCR (RESP) NOT DETECTED NOT DETECTED 06/04/2024 5:43 PM CREDIT COLLECTIONS SPECIALIST [facility] INFLUENZA B PCR (RESP) NOT DETECTED NOT DETECTED 06/04/2024 5:43 PM CREDIT COLLECTIONS SPECIALIST [facility] PARAINFLUENZA 1 PCR (RESP) NOT DETECTED NOT DETECTED 06/04/2024 5:43 PM CREDIT COLLECTIONS SPECIALIST [facility] PARAINFLUENZA 2 PCR (RESP) NOT DETECTED NOT DETECTED 06/04/2024 5:43 PM CREDIT COLLECTIONS SPECIALIST [facility] PARAINFLUENZA 3 PCR (RESP) NOT DETECTED NOT DETECTED 06/04/2024 5:43 PM CREDIT COLLECTIONS SPECIALIST [facility] PARAINFLUENZA 4 PCR (RESP) DETECTED(A) NOT DETECTED 06/04/2024 5:43 PM CREDIT COLLECTIONS SPECIALIST [facility] Comment: CALLED TO JACOB PHAN AT [facility] [phone] READ BACK AND VERIFIED RSV PCR (RESP) NOT DETECTED NOT DETECTED 06/04/2024 5:43 PM CREDIT COLLECTIONS SPECIALIST [facility] B PARAPERTUSIS PCR (RESP) NOT DETECTED NOT DETECTED 06/04/2024 5:43 PM CREDIT COLLECTIONS SPECIALIST [facility] BORDETELLA PERTUSSIS PCR (RESP) NOT DETECTED NOT DETECTED 06/04/2024 5:43 PM CREDIT COLLECTIONS SPECIALIST [facility] CHLAMYDOPHILA PNEUMONIAE PCR (RESP) NOT DETECTED NOT DETECTED 06/04/2024 5:43 PM CREDIT COLLECTIONS SPECIALIST [facility] MYCOPLASMA PNEUMONIAE PCR (RESP) NOT DETECTED NOT DETECTED 06/04/2024 5:43 PM CREDIT COLLECTIONS SPECIALIST [facility] CORONAVIRUS SARS COV 2 PCR (RESP) NOT DETECTED NOT DETECTED 06/04/2024 5:43 PM CREDIT COLLECTIONS SPECIALIST [facility] NASOPHARYNGEAL SWAB / Unknown 06/03/2024 9:42 PM CREDIT COLLECTIONS SPECIALIST Lionel Banegas DO MICROBIOLOGY - GENERAL ORDERABLE S Final Result [facility] [address] [place] [address], [id number] [facility] [address] [place] [address], * CT CHEST+ABD+PEL W CON (06/03/2024 8:04 PM CREDIT COLLECTIONS SPECIALIST) Anatomical Region Laterality Modality Chest, Abdomen, Pelvis Computed Tomography 06/03/2024 8:08 PM CREDIT COLLECTIONS SPECIALIST Impressions 06/03/2024 8:29 PM CREDIT COLLECTIONS SPECIALIST IMPRESSION: 1. ??Several consolidations in the right lower lobe, with tree-in-bud opacities lower lobes bilaterally. Findings compatible with multifocal pneumonia. 2. ??Trace diffuse mesenteric edema and mild anasarca, suggesting volume overload. 3. ??Limited evaluation of the upper abdominal structures, secondary to motion. 4. ??Other chronic/nonurgent findings, as above. Referred By: ?? Interpreted By: Rj Mendoza MD, 06/03/2024 8:08 PM Narrative 06/03/2024 8:29 PM CREDIT COLLECTIONS SPECIALIST [facility] [address] [place] [address] INDICATION: sepsis, source unclear, altered mental status, [...] Procedure Note Rj Mendoza MD - 06/03/2024 [place] [id number] [facility] [place] [address] INDICATION: sepsis, source unclear, altered mental status, [...] consolidations in the right lower lobe, with [id number] lower lobes bilaterally. Findings compatible with multifocalpneumonia. 2. Trace diffuse mesenteric edema and mild anasarca, suggesting volumeoverload. 3. Limited evaluation of the upper abdominal structures, secondary tomotion. 4. Other chronic/nonurgent findings, as above. Referred By: Interpreted By: Rj Mendoza MD, 06/03/2024 8:08 PM us Lionel Banegas DO CT Final Result * DRUG SCREEN RAPID (06/03/2024 6:49 PM CREDIT COLLECTIONS SPECIALIST) CANNABINOIDS SCREEN (U) NEGATIVE NEGATIVE 06/03/2024 7:16 PM CREDIT COLLECTIONS SPECIALIST [facility] PHENCYCLIDINE PCP (U) NEGATIVE NEGATIVE 06/03/2024 7:16 PM CREDIT COLLECTIONS SPECIALIST [facility] COCAINE METABOLITES (U) NEGATIVE NEGATIVE 06/03/2024 7:16 PM CREDIT COLLECTIONS SPECIALIST [facility] METHAMPHETAMINE SCREEN (U) NEGATIVE NEGATIVE 06/03/2024 7:16 PM CREDIT COLLECTIONS SPECIALIST [facility] OPIATE SCREEN (U) NEGATIVE NEGATIVE 024 7:16 PM CREDIT COLLECTIONS SPECIALIST [facility] AMPHETAMINE SCREEN (U) NEGATIVE NEGATIVE 06/03/2024 7:16 PM CREDIT COLLECTIONS SPECIALIST [facility] BENZODIAZEPINES SCREEN (U) NEGATIVE NEGATIVE 06/03/2024 7:16 PM CREDIT COLLECTIONS SPECIALIST [facility] TRICYCLIC ANTIDEPRESSANT SCREEN (U) NEGATIVE NEGATIVE 06/03/2024 7:16 PM CREDIT COLLECTIONS SPECIALIST [facility] METHADONE (U) NEGATIVE NEGATIVE 06/03/2024 7:16 PM CREDIT COLLECTIONS SPECIALIST [facility] BARBITURATES SCREEN (U) NEGATIVE NEGATIVE 06/03/2024 7:16 PM CREDIT COLLECTIONS SPECIALIST [facility] OXYCODONE SCREEN (U) NEGATIVE NEGATIVE 06/03/2024 7:16 PM CREDIT COLLECTIONS SPECIALIST [facility] URINE TOX COMMENT THIS TEST METHODOLOGY IS DESIGNED AND OFFERED A RAPID TURNAROUND, QUALITATIVE SCREENING PROCEDURE TO AID IN THE IMMEDIATE MEDICAL ASSESSMENT OF PATIENTS SUSPECTED OF SUBSTANCE ABUSE. 06/03/2024 6:49 PM CREDIT COLLECTIONS SPECIALIST [facility] Comment: CLINICAL CONSIDERATION AND PROFESSIONAL JUDGMENT MUST BE APPLIED TO ANY DRUG OF ABUSE TEST RESULT, BOTH POSITIVE AND NEGATIVE. CONFIRMATORY QUANTITATIVE RESULTS ARE AVAILABLE THROUGH OUR REFERENCE LABORATORY. URINE SPECIMEN / Unknown 06/03/2024 6:49 PM CREDIT COLLECTIONS SPECIALIST us Lionel Banegas DO URINE ORDERABLES Final Result [facility] [address] [employer] [place] [address], * (ABNORMAL) URINALYSIS (06/03/2024 6:49 PM CREDIT COLLECTIONS SPECIALIST) Only the most recent of3 resultswithin the time period is included. COLOR (U) YELLOW 06/03/2024 7:13 PM CREDIT COLLECTIONS SPECIALIST [facility] TRANSPARENCY CLEAR 06/03/2024 7:13 PM CREDIT COLLECTIONS SPECIALIST [facility] SPECIFIC GRAVITY (U) 1.025 1.000 - 1.025 06/03/2024 7:13 PM CREDIT COLLECTIONS SPECIALIST [facility] U PH 5.0 5.0 - 8.0 06/03/2024 7:13 PM CREDIT COLLECTIONS SPECIALIST [facility] LEUKOCYTES (U) 1+(A) NEGATIVE 06/03/2024 7:13 PM CREDIT COLLECTIONS SPECIALIST [facility] NITRITES POSITIVE(A) NEGATIVE 06/03/2024 7:13 PM CREDIT COLLECTIONS SPECIALIST [facility] PROTEIN RANDOM (U) 1+(A) NEGATIVE 06/03/2024 7:13 PM CREDIT COLLECTIONS SPECIALIST [facility] GLUCOSE (U) NEGATIVE NEGATIVE 06/03/2024 7:13 PM CREDIT COLLECTIONS SPECIALIST [facility] KETONES MG/DL (U) NEGATIVE NEGATIVE 06/03/2024 7:13 PM CREDIT COLLECTIONS SPECIALIST [facility] UROBILINOGEN 0.2 <1.0 EU/DL 06/03/2024 7:13 PM CREDIT COLLECTIONS SPECIALIST [facility] BILIRUBIN (U) NEGATIVE NEGATIVE 06/03/2024 7:13 PM CREDIT COLLECTIONS SPECIALIST [facility] BLOOD (U) 1+(A) NEGATIVE 06/03/2024 7:13 PM CREDIT COLLECTIONS SPECIALIST [facility] WBC/HPF 0-5 0 - 5 /HPF 06/03/2024 7:13 PM CREDIT COLLECTIONS SPECIALIST [facility] Comment:UNSPUN URINE SPECIME N RBC/HPF 0-5 0 - 5 /HPF 06/03/2024 7:13 PM CREDIT COLLECTIONS SPECIALIST [facility] BACTERIA (U) 2+ /HPF 06/03/2024 7:13 PM CREDIT COLLECTIONS SPECIALIST [facility] MUCUS PRESENT 06/03/2024 7:13 PM CREDIT COLLECTIONS SPECIALIST [facility] URINE SPECIMEN OBTAINED BY CLEAN CATCH PROCEDURE / Unknown 06/03/2024 6:49 PM CREDIT COLLECTIONS SPECIALIST us Lionel Banegas DO URINE ORDERABLES Final Result [facility] [address] [place] [address], * (ABNORMAL) URINE BACTERIA CULTURE (06/03/2024 6:49 PM CREDIT COLLECTIONS SPECIALIST) Only the most recent of3 resultswithin the time period is included. SPEC DESCRIPTION URINE CLEAN CATCH 06/03/2024 7:51 PM CREDIT COLLECTIONS SPECIALIST [facility] SPECIAL REQUESTS NO SPECIAL REQUEST 06/03/2024 7:51 PM CREDIT COLLECTIONS SPECIALIST [facility] CULTURE RESULT EQUAL OR >100,000 CFU/mL KLEBSIELLA PNEUMONIAE EXTENDED SPECTRUM BETA LACTAMASE (A) 06/05/2024 8:06 AM CREDIT COLLECTIONS SPECIALIST [facility] URINE SPECIMEN OBTAINED BY CLEAN CATCH PROCEDURE / Unknown 06/03/2024 6:49 PM CREDIT COLLECTIONS SPECIALIST 06/03/2024 8:53 PM CREDIT COLLECTIONS SPECIALIST Narrative Organism Antibiotic Method Susceptibility Klebsiella pneumoniae [...] MICROBIOLOGY - GENERAL ORDERABLE S Final Result [facility] [address] [place] [address], [place] [phone] [facility] [address] [place] [address], * CT HEAD WO CON (06/03/2024 6:34 PM CREDIT COLLECTIONS SPECIALIST) Anatomical Region Laterality Modality Head Computed Tomogra phy 06/03/2024 7:10 PM CREDIT COLLECTIONS SPECIALIST Impressions 06/03/2024 7:16 PM CREDIT COLLECTIONS SPECIALIST IMPRESSION: 1. ??No acute intracranial abnormalities identified. 2. ??Generalized cerebral atrophy. At least mild chronic small vessel ischemic changes within the white matter. Ordered By: LIONEL BANEGAS Interpreted By: Bartolome Dillard DO, 06/03/2024 7:10 PM Narrative 06/03/2024 7:16 PM CREDIT COLLECTIONS SPECIALIST [address] [place] [address] EXAMINATION: CT head without contrast HISTORY: Altered [...] Procedure Note Bartolome Dillard DO - 06/03/[address] [place] [address] EXAMINATION: CT head without contrast HISTORY: Altered [...] By: Bartolome Dillard DO, 06/03/2024 7:10 PM Lionel Banegas DO CT Final Result * LACTIC ACID W REFLEX (SEPSIS) (06/03/2024 6:25 PM CREDIT COLLECTIONS SPECIALIST) Only the most recent of5 resultswithin the time period is included. LACTIC ACID VENOUS 2.0 0.4 - 2.0 MMOL/L 06/03/2024 6:56 PM CREDIT COLLECTIONS SPECIALIST [facility] 06/03/2024 6:25 PM CREDIT COLLECTIONS SPECIALIST us Lionel Banegas DO LABORATORY Final Result [facility] [address] [place] [address], * (ABNORMAL) COMPREHENSIVE METABOLIC PANEL (06/03/2024 6:25 PM CREDIT COLLECTIONS SPECIALIST) Only the most recent of5 resultswithin the time period is included. SODIUM S/P/B 143 136 - 145 MMOL/L 06/03/2024 6:52 PM [facility] POTASSIUM S/P/B 4.2 3.5 - 5.1 MMOL/L 06/03/2024 6:52 PM [facility] CHLORIDE S/P/B 103 98 - 107 MMOL/L 06/03/2024 6:52 PM [facility] CO2 30.7 21.0 - 32.0 MMOL/L 06/03/2024 6:52 PM [facility] GLUCOSE 242(H) 70 - 99 MG/DL 06/03/2024 6:52 PM [facility] Comment: FASTING GLUCOSE 100 TO 125 MG/DL IS CONSISTENT WITH IMPAIRED FASTING GLUCOSE. FASTING GLUCOSE >125 MG/DL IS CONSISTENT WITH DIABETES. RANDOM GLUCOSE >200 MG/DL WITH HYPERGLYCEMIC SYMPTOMS IS CONSISTENT WITH DIABETES. PER ADA GUIDELINES BUN 46(H) 6 - 24 MG/DL 06/03/2024 6:52 PM [facility] CREATININE S/P/B 1.20 0.70 - 1.30 MG/DL 06/03/2024 6:52 PM [facility] CALCIUM S/P/B 9.1 8.4 - 10.5 MG/DL 06/03/2024 6:52 PM [facility] BILIRUBIN TOTAL S/P/B 0.8 0.2 - 1.0 MG/DL 06/03/2024 6:52 PM [facility] Comment: THIS ASSAY IS NOT RECOMMENDED FOR PATIENTS UNDERGOING TREATMENT WITH ELTROMBOPAG DUE TO THE POTENTIAL FOR FALSELY ELEVATED RESULTS. ALKALINE PHOSPHATASE S/P/B 84 45 - 115 U/L 06/03/2024 6:52 PM [facility] AST 18 15 - 37 U/L 06/03/2024 6:52 PM [facility] ALT 22 16 - 63 U/L 06/03/2024 6:52 PM [facility] TOTAL PROTEIN S/P/B 7.1 6.4 - 8.2 G/DL 06/03/2024 6:52 PM CREDIT COLLECTIONS SPECIALIST [facility] ALBUMIN S/P/B 2.4(L) 3.4 - 5.0 G/DL 06/03/2024 6:52 PM CREDIT COLLECTIONS SPECIALIST [facility] ANION GAP 9.3 5.0 - 15.0 MMOL/L 06/03/2024 6:52 PM CREDIT COLLECTIONS SPECIALIST [facility] OSMOLALITY (CALC) 316 MOSM/KG 024 6:52 PM CREDIT COLLECTIONS SPECIALIST [facility] Comment:REFERENCE RANGE NOT ESTABLISHED GFR ESTIMATE 61(L) >89 ML/MIN/1. 73 M2 06/03/2024 6:52 PM CREDIT COLLECTIONS SPECIALIST [facility] GFR NOTES GFR REFERENCE S: 06/03/2024 6:52 PM CREDIT COLLECTIONS SPECIALIST [facility] Comment: THE ESTIMATED GFR IS CALCULATED [...] FAILURE: <15 ml/min/1.73 m2 06/03/2024 6:25 PM CREDIT COLLECTIONS SPECIALIST us Lionel Banegas DO LABORATORY Final Result [facility] [address] [place] [address], * (ABNORMAL) CBC W/DIFF AUTOMATED (06/03/2024 6:25 PM CREDIT COLLECTIONS SPECIALIST) Only the most recent of13 resultswithin the time period is included. WBC 16.07(H) 4.00 - 10.80 x10'3/uL 06/03/2024 6:35 PM CREDIT COLLECTIONS SPECIALIST [facility] RBC 4.15(L) 4.50 - 6.10 x10'6/uL 06/03/2024 6:35 PM CREDIT COLLECTIONS SPECIALIST [facility] HGB 10.9(L) 13.0 - 18.0 G/DL 06/03/2024 6:35 PM CREDIT COLLECTIONS SPECIALIST [facility] HCT 36.1(L) 37.0 - 52.0 % 06/03/2024 6:35 PM CREDIT COLLECTIONS SPECIALIST [facility] MCV 87.0 78.0 - 100.0 FL 06/03/2024 6:35 PM CREDIT COLLECTIONS SPECIALIST [facility] MCH 26.3(L) 27.0 - 31.0 PG 06/03/2024 6:35 PM CREDIT COLLECTIONS SPECIALIST [facility] MCHC 30.2(L) 33.0 - 36.0 G/DL 06/03/2024 6:35 PM [facility] RDW 16.8(H) 11.5 - 14.5 % 06/03/2024 6:35 PM CREDIT COLLECTIONS SPECIALIST [facility] PLT 279 150 - 350 x10'3/uL 06/03/2024 6:35 PM [facility] MPV 11.0(H) 7.4 - 10.4 FL 06/03/2024 6:35 PM [facility] CBC COMMENT NORMAL REFERENCE RANGE NOT ESTABLISHED FOR THE PROPORTIONAL LEUKOCYTE DIFFERENTIAL. 06/03/2024 6:35 PM CREDIT COLLECTIONS SPECIALIST [facility] NEUTROPHILS % 87.2 % 06/03/2024 6:35 PM [facility] LYMPHOCYTES % 8.2 % 06/03/2024 6:35 PM CREDIT COLLECTIONS SPECIALIST [facility] MONOCYTES % 4.1 % 06/03/2024 6:35 PM CREDIT COLLECTIONS SPECIALIST [facility] EOSINOPHILS % 0.0 % 06/03/2024 6:35 PM [facility] BASOPHILS % 0.1 % 06/03/2024 6:35 PM CREDIT COLLECTIONS SPECIALIST [facility] IMMATURE GRANS % 0.4 % 06/03/20 6:35 PM CREDIT COLLECTIONS SPECIALIST [facility] NRBC % 0.0 % 06/03/2024 6:35 PM CREDIT COLLECTIONS SPECIALIST [facility] ABS. NEUTROPHILS 14.02(H) 1.60 - 8.30 x10'3/uL 06/03/2024 6:35 PM CREDIT COLLECTIONS SPECIALIST [facility] ABS. LYMPHOCYTES 1.31 0.80 - 4.70 x10'3/uL 06/03/2024 6:35 PM CREDIT COLLECTIONS SPECIALIST [facility] ABS. MONOCYTES 0.66 0.00 - 1.50 x10'3/uL 06/03/2024 6:35 PM CREDIT COLLECTIONS SPECIALIST [facility] ABS. EOSINOPHILS 0.00 0.00 - 0.40 x10'3/uL 06/03/2024 6:35 PM CREDIT COLLECTIONS SPECIALIST [facility] ABS. BASOPHILS 0.02 0.00 - 0.20 x10'3/uL 06/03/2024 6:35 PM CREDIT COLLECTIONS SPECIALIST [facility] ABS. IMMATURE GRANULOCYTES 0.06(H) 0.00 - 0.03 x10'3/uL 06/03/2024 6:35 PM CREDIT COLLECTIONS SPECIALIST [facility] ABS. NUCLEATED RBC'S 0.00 0.00 - 0.01 x10'3/uL 06/03/2024 6:35 PM CREDIT COLLECTIONS SPECIALIST [facility] 06/03/2024 6:25 PM CREDIT COLLECTIONS SPECIALIST us Lionel Banegas DO LABORATORY Final Result [facility] [address] [place] [address], * ETHANOL (06/03/2024 6:25 PM CREDIT COLLECTIONS SPECIALIST) ALCOHOL S/P/B <0.003 <0.003 G/DL 06/03/2024 6:52 PM CREDIT COLLECTIONS SPECIALIST [facility] 06/03/2024 6:25 PM CREDIT COLLECTIONS SPECIALIST us Lionel Banegas DO LABORATORY Final Result [facility] [address] [place] [address], * ECG 12 lead (06/03/2024 6:21 PM CREDIT COLLECTIONS SPECIALIST) Only the most recent of3 resultswithin the time period is included. 06/03/2024 6:21 PM CREDIT COLLECTIONS SPECIALIST Narrative [facility] - 06/03/2024 9:35 PM CREDIT COLLECTIONS SPECIALIST ? [facility] ?[address] [place] ??[address] ? Test Date: ?2024-06-03 Pat Name: ? ANNIE CROCKER ?Department: ?? 3 ? Room: ? Gender: ? Male ? 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 Requested By: LIONEL BANEGAS Order Number: [id number] ? Reading MD: ?? Josseline Cordero ? Measurements Intervals ?[place] ? Rate: ? 60 ? P: ? NH: ? 0 ?QRS: ?-90 QRSD: ? 175 ?T: ?85 QT: ? 489 ? QTc: ?489 ? Interpretive Statements ELECTRONIC VENTRICULAR PACEMAKER ABNORMAL RHYTHM ECG IT COLLECTIONS SPECIALIST Procedure Note Josseline Cordero MD - 06/03/[address] 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 Anatomical Region Laterality Modality Chest Radiographic Betsey ging 06/01/2024 2:59 PM CREDIT COLLECTIONS SPECIALIST Impressions 06/01/2024 3:02 PM CREDIT COLLECTIONS SPECIALIST IMPRESSION: No acute cardiopulmonary process identified. Ordered By: MARIAM WATKINS Interpreted By: Morgan Thornton MD, 06/01/2024 2:59 PM Narrative 06/01/2024 3:02 PM CREDIT COLLECTIONS SPECIALIST [address] [place] [address] Examination: Portable chest. Exam time: 1407 hours. Clinical history: Chest pain. Comparison: 05/24/2024 ([facility]). Technique: ??AP ??upright view. Findings: Allowing for [...] Procedure Note Morgan Thornton MD - 06/01/[address] [place] [address] Examination: Portable chest. Exam time: 1407 hours. Clinical history: Chest pain. Comparison: 05/24/2024 ([facility]). Technique: AP upright view. Findings: Allowing for [...] By: Morgan Thornton MD, 06/01/2024 2:59 PM Mariam Watkins MD GENERAL IMAGING Final Resul t * CULTURE, BACTERIA, BLOOD (06/01/2024 2:26 PM CREDIT COLLECTIONS SPECIALIST) Only the most recent of6 resultswithin the time period is included. SPEC DESCRIPTION BLOOD 06/01/2024 2:08 PM CREDIT COLLECTIONS SPECIALIST [facility] SPECIAL REQUESTS NO SPECIAL REQUEST 06/01/2024 2:08 PM CREDIT COLLECTIONS SPECIALIST [facility] CULTURE RESULT NO GROWTH 5 DAYS 06/06/2024 11:14 AM CREDIT COLLECTIONS SPECIALIST [facility] BLOOD SPECIMEN OBTAINED FOR BLOOD CULTURE / Unknown 06/01/2024 2:26 PM CREDIT COLLECTIONS SPECIALIST 06/01/2024 2:35 PM CREDIT COLLECTIONS SPECIALIST Mariam Watkins MD MICROBIOLOGY - GENERAL ORDE RABLES Final Result [facility] [address] [place] [address], * TROPONIN, QUANT (06/01/2024 2:26 PM CREDIT COLLECTIONS SPECIALIST) Only the most recent of3 resultswithin the time period is included. TROPONIN I HIGH SENSITIVITY 39 0 - 76 ng/L 06/01/2024 3:04 PM CREDIT COLLECTIONS SPECIALIST [facility] 06/01/2024 2:26 PM CREDIT COLLECTIONS SPECIALIST us Mariam Watkins MD LABORATORY Final Resul t [facility] [address] [place] [address], * MAGNESIUM (05/25/2024 4:35 AM CREDIT COLLECTIONS SPECIALIST) Only the most recent of8 resultswithin the time period is included. MAGNESIUM 1.8 1.8 - 2.4 MG/DL 05/25/2024 5:15 AM CREDIT COLLECTIONS SPECIALIST [facility] 05/25/2024 4:35 AM CREDIT COLLECTIONS SPECIALIST Ronald Lema MD LABORATORY Final Result [facility] [address] [place] [address], * XR SPEECH SWALLOW??VICTOR MANUEL ONLY (05/24/2024 1:47 PM CREDIT COLLECTIONS SPECIALIST) Anatomical Region Laterality Modality NA Radiographic Betsey ging 05/24/2024 1:53 PM CREDIT COLLECTIONS SPECIALIST Impressions 05/24/2024 1:58 PM CREDIT COLLECTIONS SPECIALIST IMPRESSION: 1. Penetration with thin liquid barium. 2. Residual within the vallecula and piriform sinuses. Please see speech pathology report for further discussion. Ordered By: RONALD LEMA Interpreted By: Mayito Bianchi MD, 05/24/2024 1:53 PM Narrative 05/24/2024 1:58 PM CREDIT COLLECTIONS SPECIALIST [facility] [address] [place], [place] [address] EXAMINATION: VIDEOFLUOROSCOPIC OROPHARYNGEAL SWALLOW STUDY EXAM TIME: 05/24/2024 1:18 PM INDICATION: History of aspiration. COMPARISON: None. TECHNIQUE: ??Lateral video fluoroscopy was performed as barium of varying consistency was administered by speech pathology, including thin liquid, nectar, honey, puree-consistency barium and barium-coated cracker. Fluoro time: 2:42 ??min. Radiation Dose: 8.515 mGy. 11 total cine clips. FINDINGS: There was significant residual seen within the vallecula and piriform sinuses, with minimal clearance following cued swallow. There is penetration observed for thin liquid barium as seen on series 9. No aspiration or penetration observed for pudding consistency barium, barium coated cracker, or nectar consistency barium. Multilevel cervical spondylosis. Procedure Note Mayito Bianchi MD - 05/24/2024 [facility] [address] [place], [place] [address] EXAMINATION: VIDEOFLUOROSCOPIC OROPHARYNGEAL SWALLOW STUDY EXAM TIME: 05/24/2024 1:18 PM INDICATION: History of aspiration. COMPARISON: None. TECHNIQUE: Lateral video fluoroscopy was performed as barium of varyingconsistency was administered by speech pathology, including thin liquid,nectar, honey, puree-consistency barium and barium-coated cracker. Fluorotime: 2:42 min. Radiation Dose: 8.515 mGy. 11 total cine clips. FINDINGS: There was significant residual seen within the vallecula and piriformsinuses, with minimal clearance following cued swallow. There ispenetration observed for thin liquid barium as seen on series 9. Noaspiration or penetration observed for pudding consistency barium, bariumcoated cracker, or nectar consistency barium. Multilevel cervicalspondylosis. IMPRESSION: 1. Penetration with thin liquid barium. 2. Residual within the vallecula and piriform sinuses. Please see speech pathology report for further discussion. Ordered By: RONALD LEMA Interpreted By: Mayito Bianchi MD, 05/24/2024 1:53 PM Ronald Lema MD FLUOROSCOPY Final Result * (ABNORMAL) BASIC METABOLIC PANEL (05/24/2024 5:15 AM [employer]) Only the most recent of8 resultswithin the time period is included. GLUCOSE 174(H) 70 - 99 MG/DL 05/24/2024 6:02 AM [facility] BUN 28(H) 7 - 18 MG/DL 05/24/2024 6:02 AM [facility] CREATININE S/P/B 0.63(L) 0.7 - 1.3 MG/DL 05/24/2024 6:02 AM [facility] SODIUM S/P/B 137 136 - 145 MMOL/L 05/24/2024 6:02 AM [facility] POTASSIUM S/P/B 3.9 3.5 - 5.1 MMOL/L 05/24/2024 6:02 AM [facility] CHLORIDE S/P/B 104 97 - 115 MMOL/L 05/24/2024 6:02 AM [facility] CO2 29.4 21 - 32 MMOL/L 05/24/2024 6:02 AM [facility] CALCIUM S/P/B 8.7 8.5 - 10.1 MG/DL 05/24/2024 6:02 AM [facility] ANION GAP 3.6 2 - 10 MMOL/L 05/24/2024 6:02 AM [facility] BUN CREATININE RATIO 44.4(H) 6 - 26 05/24/2024 6:02 AM [facility] GFR ESTIMATE >90 >90 ML/MIN/1.7 3 M2 05/24/2024 6:02 AM [facility] Comment: NOTE: eGFR is not calculated for patients <18 years of age or gender unknown. This is an estimated GFR calculation using the new CKD EPI creatinine equation without race and so does not require a correction factor for race. This estimated GFR should not be used for calculating drug doses. 05/24/2024 5:15 AM CREDIT COLLECTIONS SPECIALIST Ronald Lema MD LABORATORY Final Result [facility] [address] [place] [address], * USE TRANSESOPHAGEAL ECHO (05/23/2024 2:50 PM CREDIT COLLECTIONS SPECIALIST) Anatomical Region Laterality Modality Cardiac Field Operations Manager 05/23/2024 12:5 6 PM CREDIT COLLECTIONS SPECIALIST Narrative 05/23/2024 5:00 PM CREDIT COLLECTIONS SPECIALIST ?TATE Report Pat.Name: ??ANNIE CROCKER ?Pat.ID: ?[id number] ? St.Date: ?? 05/23/2024 ? Exam Time: 12:56:00 PM ? Study Type:TRANSESOPHAGEAL ECHO (TATE) Height: ?72 in ? Weight: ?10.9 lb ? BSA: ? 0.62 m2 ?Age: ??1945,79Y ? Sex: ? M ? BP: ?120/63 ?HR: ?60 bpm ? Sonogrphr: Currie, Mita RCS ? Pat. Stat.:Inpatient ? Room: ?311 ? CPT - 4: ?24437 [id number] ? Reason for Study:Bacteremia, Endocarditis Procedures: 2D, Doppler, Color Flow, Transesophageal Race: ?W ? ++++++++++++++++++++++++++++++++++++ SUMMARY: ++++++++++++++++++++++++++++++++++++ The left ventricular size is normal. The left ventricular systolic function is mildly depressed. Mild mitral regurgitation. Myxomatous degeneration of mitral valve. No vegetations visualized on valves or devices wires. ++++++++++++++++++++++++++++++++++++ FINDINGS: ++++++++++++++++++++++++++++++++++++ TATE: ?The patient was counseled and an informed consent was ?obtained. A plastic bite was inserted into the mouth. IV ?sedation was administered. Multiple views were then obtained ?from the upper, mid, and lower esophagus and the gastric ?fundus. The scope was rotated 180 degrees and the aorta was ?visualized. The scope was withdrawn under continuous ?suction. LV: ? The left ventricular size is normal. The left ventricular ?systolic function is mildly depressed. RV: ? A pacemaker wire is visualized in the right ventricle. RA: ? A pacemaker wire is visualized in the right atrium. AV: ? The aortic valve is trileaflet. No evidence of aortic valve ?stenosis. No evidence of aortic valve regurgitation. No ?aortic valve vegetation. MV: ? Mild mitral regurgitation. No evidence of mitral stenosis. ?Myxomatous degeneration of mitral valve. No mitral valve ?vegetation. PV: ? Structurally normal pulmonic valve. No evidence of pulmonic ?valve stenosis. No evidence of pulmonic regurgitation. No ?pulmonic vegitation. TV: ? Structurally normal tricuspid valve. Mild tricuspid ?regurgitation. No evidence of tricuspid valve stenosis. No ?tricuspid valve vegetation. ++++++++++++++++++++++++++++++++++++ TATE: ++++++++++++++++++++++++++++++++++++ Pre TATE ?BP ?? HR ? Post TATE ? BP ?? HR ? 120/63 60 ?107/61 60 Meds: ?Propofol or Diprivan administered by Anesthesia Staff ++++++++++++++++++++++++++++++++++++ MEASUREMENTS: ++++++++++++++++++++++++++++++++++++ ?DOPPLER TV Regurg Flow TV pkPG ? 24 mmHg ?TV pkVel ? 243 cm/s (30- 70)* <Electronic Signature> 05/23/2024 05:00 PM Percy Landa M.D. Procedure Note Percy Landa MD - 05/23/2024 TATE Report Pat.Name: ANNIE CROCKER Pat.ID: [id number] .Date: 05/23/2024 Exam Time: 12:56:00 PM Study Type:TRANSESOPHAGEAL ECHO (TATE) Height: 72 in Weight: 10.9 lb BSA: 0.62 m2 Age: 10 1945,79Y Sex: M BP: 120/63 HR: 60 bpm Sonogrphr: Mita Jimenez. Stat.:Inpatient Room: [facility] CPT - 4: 99588 [id number] Reason for Study:Bacteremia, Endocarditis Procedures: 2D, Doppler, Color Flow, Transesophageal Race: W ++++++++++++++++++++++++++++++++++++ SUMMARY: ++++++++++++++++++++++++++++++++++++ The left ventricular size is normal. The left ventricular systolic function is mildly depressed. Mild mitral regurgitation. Myxomatous degeneration of mitral valve. No vegetations visualized on valves or devices wires. ++++++++++++++++++++++++++++++++++++ FINDINGS: ++++++++++++++++++++++++++++++++++++ TATE: The patient was counseled and an informed consent was obtained. A plastic bite was inserted into the mouth. IV sedation was administered. Multiple views were then obtained from the upper, mid, and lower esophagus and the gastric fundus. The scope was rotated 180 degrees and the aorta was visualized. The scope was withdrawn under continuous suction. LV: The left ventricular size is normal. The left ventricular systolic function is mildly depressed. RV: A pacemaker wire is visualized in the right ventricle. RA: A pacemaker wire is visualized in the right atrium. AV: The aortic valve is trileaflet. No evidence of aortic valve stenosis. No evidence of aortic valve regurgitation. No aortic valve vegetation. MV: Mild mitral regurgitation. No evidence of mitral stenosis. Myxomatous degeneration of mitral valve. No mitral valve vegetation. PV: Structurally normal pulmonic valve. No evidence of pulmonic valve stenosis. No evidence of pulmonic regurgitation. No pulmonic vegitation. TV: Structurally normal tricuspid valve. Mild tricuspid regurgitation. No evidence of tricuspid valve stenosis. No tricuspid valve vegetation. ++++++++++++++++++++++++++++++++++++ TATE: ++++++++++++++++++++++++++++++++++++ Pre TATE BP HR Post TATE BP HR 120/63 60 107/61 60 Meds: Propofol or Diprivan administered by Anesthesia Staff ++++++++++++++++++++++++++++++++++++ MEASUREMENTS: ++++++++++++++++++++++++++++++++++++ DOPPLER TV Regurg Flow TV pkPG 24 mmHg TV pkVel 243 cm/s (30-70)* <Electronic Signature> 05/23/2024 05:00 PM Percy Landa M.D. Percy Landa MD ECHO Final Result * CK (CPK) (05/23/2024 7:58 AM CREDIT COLLECTIONS SPECIALIST) Only the most recent of2 resultswithin the time period is included. CPK 49 35 - 232 U/L 05/23/2024 8:50 AM CREDIT COLLECTIONS SPECIALIST [facility] 05/23/2024 7:58 AM CREDIT COLLECTIONS SPECIALIST Ronald Lema MD LABORATORY Final Result [facility] [address] [facility] [place] [address], * USE ECHOCARDIOGRAM W CON (05/20/2024 2:33 PM CREDIT COLLECTIONS SPECIALIST) Anatomical Region Laterality Modality NA Echocardiogram 05/20/2024 2:57 PM CREDIT COLLECTIONS SPECIALIST Narrative 05/20/2024 3:32 PM CREDIT COLLECTIONS SPECIALIST ?Echocardiography Report Pat.Name: ??ANNIE CROCKER ?Pat.ID: ?[id number] ? St.Date: ?? 05/20/2024 ? Refer.MD: ??[id number], MARIAM WATKINS Exam Time: 2:57:00 PM ? Study Type:ECHO WITH CARDIAC DOPPLER COMP Height: ?72 in ? Weight: ?182 lb ? BSA: ? 2.05 m2 ?Age: ??1945,79Y ? Sex: ? M ? BP: ?160/73 ? HR: ?60 bpm ?Sonogrphr: Angel Pascual [facility], [facility] Pat. Stat.:Inpatient ? Room: ?311 ? Reason for Study:Bacteremia ? Procedures: 2D, M-mode, Doppler, Color Flow, Definity was used to enhance endocardial definition. The study quality is technically difficult. Limited by poor compliance. Race: ?W ? ++++++++++++++++++++++++++++++++++++ SUMMARY: ++++++++++++++++++++++++++++++++++++ The left ventricular size is normal. Estimated left ventricular ejection fraction is 40-45%. ? ? ?Mild global hypokinesis is noted. The right ventricular [...] consider TATE . Technically challenging study . ++++++++++++++++++++++++++++++++++++ FINDINGS: ++++++++++++++++++++++++++++++++++++ LV: ? The left ventricular size is normal. Estimated left ?ventricular ejection fraction is 40-45%. No concentric left ?ventricular hypertrophy. WM: ? Mild global hypokinesis is noted. RV: ? The right ventricular size is normal. Right ventricular ?systolic function is moderately depressed. A pacemaker wire ?is visualized in the right ventricle. IVS: ?No evidence of ventricular septal defect. LA: ? The left atrial size is moderately to severely enlarged. The ?left atrial volume is moderately increased (42-48 ml/M2). RA: ? Right atrial size is mild to moderately enlarged. A ?pacemaker wire is visualized in the right atrium. IAS: ?Atrial septum appears intact. NAYELI: ? No evidence of pericardial effusion. AO: ? Normal aortic root. PA: ? Pulmonary artery is normal. SVn: ?Inferior vena cava is normal. Inferior vena cava shows >50% ?collapse with respiration consistent with normal right ?atrial pressure. AV: ? The aortic valve is trileaflet. No evidence of aortic valve ?stenosis. No evidence of aortic valve regurgitation. Mild ?calcification of aortic valve leaflets. MV: ? Mild mitral regurgitation. No evidence of mitral valve ?stenosis. PV: ? No evidence of pulmonic valve stenosis. No evidence of ?pulmonic regurgitation. TV: ? A trace of tricuspid regurgitation. Right ventricular ?systolic pressure is 30 mmHg. ++++++++++++++++++++++++++++++++++++ MEASUREMENTS: ++++++++++++++++++++++++++++++++++++ ?DOPPLER LVOT ?? LVOTpkPG ? 3 mmHg ?LVOTmnPG ? 2 mmHg LVOTpkVel ? 90.2 cm/s (70-110) LVOT SV ? 53 ml ?? LVOT TVI ?16.9 cm ? AV Forward Flow AV TVI ?24.6 cm ?AV pkPG ?6 mmHg AV pkVel ? 123 cm/s (100-170) Area (TVI) ?2.16 cm2 ??(3-5)* AV mnPG ?4 mmHg ?Area (Leo) ? 2.3 cm2 ??(3- 5)* MV Forward Flow MV pkE ?52.2 cm/s (60-130)* PV Forward Flow PV pkVel ?68.4 cm/s (60-90) ??PV AC ?121 msec PV pkPG ?2 mmHg ? TV Regurg Flow TV pkPG ? 27 mmHg ?TV pkVel ? 258 cm/s (30- 70)* Aortic Valve ?? Aortic Valve Ar ??1.05 ?Aortic Valve Ve ??0.73 ? PV Antegrade Flow Acceleration Sl ?? 519 cm/s2 ? Right Atrium ?? Delgado's Disk ? 20 ? Right Ventricle ?? Right Ventricle ??5.77 cm/s ?2D Left Ventricle ?? LVIDd ? 5.75 cm ?? (3.6-5.2)* LngAxs ?8.28 cm ?? LVIDs ? 4.78 cm ?? (2.3-3.9)* LV ESV ? 108 ml ?? LngAxd ?9.02 cm ?LV EF ? 40 % ?? LV EDV ? 180 ml ?LV SV ? 72 ml ?? LVPW ?? LVPWd ?0.962 cm ? Ventricular Septum ?? IVSd ? 0.915 cm ? Aorta ?? Ao Rtd ? 3.6 cm ?? (zsc 2.1)* LVOT ?? LVOT ? 2 cm ?LVOTArea ?3.14 cm2 Ratios ?? IVS RA Single Plane Right Atrium MO ??12.7 mm ? Right Atrium Sy ??72.5 ml ?? Right Atrium Sy ??53.3 mm ? Right Atrium Sy ??35.4 ml/m2 Right Atrium Sy ??22.1 cm2 ? Right Ventricle ?? Right Ventricle ??33.6 mm ? Right Ventricle ??21.3 mm ?? Major Del Valle ?80.5 mm ?MMODE TA ?? Tricuspid Annul ??13.6 mm ? <Electronic Signature> 05/20/2024 03:32 PM Geovany Louise M.D. Procedure Note Geovany Louise MD - 05/20/2024 Echocardiography Report Pat.Name: ANNIE CROCKER Pat.ID: [id number] St.Date: 05/20/2024 Refer.: [id number], MARIAM WATKINS Exam Time: 2:57:00 PM Study Type:ECHO WITH CARDIAC DOPPLER COMP Height: 72 in Weight: 182 lb BSA: 2.05 m2 Age: 10 1945,79Y Sex: M BP: 160/73 HR: 60 bpm Sonogrphr: Angel Pascual [facility], [facility] Pat. Stat.:Inpatient Room: 311 Reason for Study:Bacteremia Procedures: 2D, M-mode, Doppler, Color Flow, Definity was used to enhance endocardial definition. The study quality is technically difficult. Limited by poor compliance. Race: W ++++++++++++++++++++++++++++++++++++ SUMMARY: ++++++++++++++++++++++++++++++++++++ The left ventricular size is normal. Estimated left ventricular ejection fraction is 40-45%. ? ? ?Mild global hypokinesis is noted. The right ventricular [...] consider TATE . Technically challenging study . ++++++++++++++++++++++++++++++++++++ FINDINGS: ++++++++++++++++++++++++++++++++++++ LV: The left ventricular size is normal. Estimated left ventricular ejection fraction is 40-45%. No concentric left ventricular hypertrophy. WM: Mild global hypokinesis is noted. RV: The right ventricular size is normal. Right ventricular systolic function is moderately depressed. A pacemaker wire is visualized in the right ventricle. IVS: No evidence of ventricular septal defect. LA: The left atrial size is moderately to severely enlarged. The left atrial volume is moderately increased (42-48 ml/M2). RA: Right atrial size is mild to moderately enlarged. A pacemaker wire is visualized in the right atrium. IAS: Atrial septum appears intact. NAYELI: No evidence of pericardial effusion. AO: Normal aortic root. PA: Pulmonary artery is normal. SVn: Inferior vena cava is normal. Inferior vena cava shows >50% collapse with respiration consistent with normal right atrial pressure. AV: The aortic valve is trileaflet. No evidence of aortic valve stenosis. No evidence of aortic valve regurgitation. Mild calcification of aortic valve leaflets. MV: Mild mitral regurgitation. No evidence of mitral valve stenosis. PV: No evidence of pulmonic valve stenosis. No evidence of pulmonic regurgitation. TV: A trace of tricuspid regurgitation. Right ventricular systolic pressure is 30 mmHg. ++++++++++++++++++++++++++++++++++++ MEASUREMENTS: ++++++++++++++++++++++++++++++++++++ DOPPLER LVOT LVOTpkPG 3 mmHg LVOTmnPG 2 mmHg LVOTpkVel 90.2 cm/s (70-110) LVOT SV 53 ml LVOT TVI 16.9 cm AV Forward Flow AV TVI 24.6 cm AV pkPG 6 mmHg AV pkVel 123 cm/s (100-170) Area (TVI) 2.16 cm2 (3-5)* AV mnPG 4 mmHg Area (Leo) 2.3 cm2 (3-5)* MV Forward Flow MV pkE 52.2 cm/s (60-130)* PV Forward Flow PV pkVel 68.4 cm/s (60-90) PV AC 121 msec PV pkPG 2 mmHg TV Regurg Flow TV pkPG 27 mmHg TV pkVel 258 cm/s (30-70)* Aortic Valve Aortic Valve Ar 1.05 Aortic Valve Ve 0.73 PV Antegrade Flow Acceleration Sl 519 cm/s2 Right Atrium Delgado's Disk 20 Right Ventricle Right Ventricle 5.77 cm/s 2D Left Ventricle LVIDd 5.75 cm (3.6-5.2)* LngAxs 8.28 cm LVIDs 4.78 cm (2.3-3.9)* LV ESV 108 ml LngAxd 9.02 cm LV EF 40 % LV EDV 180 ml LV SV 72 ml LVPW LVPWd 0.962 cm Ventricular Septum IVSd 0.915 cm Aorta Ao Rtd 3.6 cm (zsc 2.1)* LVOT LVOT 2 cm LVOTArea 3.14 cm2 Ratios IVS RA Single Plane Right Atrium MO 12.7 mm Right Atrium Sy 72.5 ml Right Atrium Sy 53.3 mm Right Atrium Sy 35.4 ml/m2 Right Atrium Sy 22.1 cm2 Right Ventricle Right Ventricle 33.6 mm Right Ventricle 21.3 mm Major Del Valle 80.5 mm MMODE TA Tricuspid Annul 13.6 mm <Electronic Signature> 05/20/2024 03:32 PM Geovany Louise M.D. us Ronald Lema MD ECHO Final Result * Vancomycin Random Level (05/20/2024 5:18 AM CREDIT COLLECTIONS SPECIALIST) Only the most recent of2 resultswithin the time period is included. VANCOMYCIN RANDOM 18.4 MCG/ML 05/20/2024 5:58 AM CREDIT COLLECTIONS SPECIALIST [facility] Comment:NO THERAPEUTIC RANGE AVAILABLE LAST DOSE UNKNOWN LAST DOSE 05/20/2024 9:09 AM CREDIT COLLECTIONS SPECIALIST [facility] 05/20/2024 5:18 AM CREDIT COLLECTIONS SPECIALIST Ronald Lema MD LABORATORY Final Result Performing Organization Address [facility] Co de Phone Number [facility] [address] [place] [address], * (ABNORMAL) HEMOGLOBIN, GLYCATED (05/17/2024 6:10 AM CREDIT COLLECTIONS SPECIALIST) HGB A1C 7.7(H) <5.7 % 05/17/2024 8:32 [address] CREDIT COLLECTIONS SPECIALIST [facility] Comment: ADA GUIDELINES 2010 5.7 TO 6.4% INCREASED RISK OF DIABETES > OR = 6.5% CONSISTENT WITH DIABETES ESTIMATED AVG GLUCOSE 174 mg/dL 05/17/2024 8:32 AM CREDIT COLLECTIONS SPECIALIST [facility] 05/17/2024 6:10 AM CREDIT COLLECTIONS SPECIALIST Talha Fung MD LABORATORY Final Resul t Performing Organization Address [facility] Co de Phone Number [facility] [address] [place] [phone], * (ABNORMAL) PROTHROMBIN TIME, VENOUS (05/17/2024 6:10 AM CREDIT COLLECTIONS SPECIALIST) PROTIME 17.6(H) 10.2 - 12.9 SEC 05/17/2024 6:49 [address] CREDIT COLLECTIONS SPECIALIST [facility] INR 1.6 05/17/2024 6:49 AM CREDIT COLLECTIONS SPECIALIST [facility] Comment: Recommended INR Therapeutic Goals: ??2.0-3.0 Routine Therapy ??2.5-3.5 Mechanical Prosthetic Valves (High Risk) 05/17/2024 6:10 AM CREDIT COLLECTIONS SPECIALIST Talha Fung MD LABORATORY Final Resul t [facility] [address] [place] [address], [place] [phone] * THYROID STIM HORMONE, TSH (05/17/2024 6:10 AM CREDIT COLLECTIONS SPECIALIST) Pathologist [facility] TSH 2.810 0.358 - 3.74 uIU/ML 05/17/2024 7:00 [address] CREDIT COLLECTIONS SPECIALIST [facility] Comment: HIGH DOSES OF BIOTIN MAY INTERFERE WITH THIS TEST RESULT. CORRELATION TO CLINICAL HISTORY AND PRESENTATION RECOMMENDED. 05/17/2024 6:10 AM CREDIT COLLECTIONS SPECIALIST Talha Fung MD LABORATORY Final Resul t Performing Organization Address City/[facility] Co de Phone Number [facility] [address] [place] [address], [place] [phone] * (ABNORMAL) CULTURE, BLOOD, PCR PANEL (05/17/2024 6:09 AM CREDIT COLLECTIONS SPECIALIST) [facility] MEC/MREJ RESISTANT GENE PCR (BLD) NOT DETECTED NOT DETECTED 05/18/2024 8:12 AM CREDIT COLLECTIONS SPECIALIST [facility] Comment: Note: Antimicrobial resistance can occur via multiple mechanisms. A NOT DETECTED result from the [employer] antimicrobial resistance gene assay does not indicate antimicrobial susceptibility. A DETECTED result for a genetic marker of antimicrobial resistance gene assay does not indicate antimicrobial susceptibility. Subculturing is required for species identification and susceptibility testing of isolates. ENTEROCOCCUS FAECALIS PCR (BLD) NOT DETECTED NOT DETECTED 05/18/2024 8:12 AM CREDIT COLLECTIONS SPECIALIST [facility] ENTEROCUCCUS FAECIUM PCR (BLD) NOT DETECTED NOT DETECTED 05/18/2024 8:12 AM CREDIT COLLECTIONS SPECIALIST [facility] LISTERIA MONOCYTOGENES PCR (BLD) NOT DETECTED NOT DETECTED 05/18/2024 8:12 AM CREDIT COLLECTIONS SPECIALIST [facility] STAPH SPECIES PCR (BLD) DETECTED(A) NOT DETECTED 05/18/2024 8:12 AM [facility] STAPH AUREUS PCR (BLD) CALLED TO AND REPEATED BACK BY YESSI SALAZAR PHARMD AT 0810 ON 05/18/24 DIANA NOT DETECTED 05/18/2024 8:12 AM CREDIT COLLECTIONS SPECIALIST [facility] STAPHYLOCOCCUS EPIDERMIDIS PCR (BLD) NOT DETECTED NOT DETECTED 05/18/2024 8:12 AM [facility] STAPHYLOCOCCUS LUGDUNENSIS PCR (BLD) NOT DETECTED NOT DETECTED 05/18/2024 8:12 AM [facility] STREPTOCOCCUS PCR (BLD) NOT DETECTED NOT DETECTED 05/18/2024 8:12 AM [facility] STREP AGALACTIAE PCR (BLD) NOT DETECTED NOT DETECTED 05/18/2024 8:12 AM [facility] STREP PNEUMONIAE PCR (BLD) NOT DETECTED NOT DETECTED 05/18/2024 8:12 AM [facility] STREP PYOGENES (GRP A) PCR (BLD) NOT DETECTED NOT DETECTED 05/18/2024 8:12 AM [facility] ACINETOBACTER BAUMANII PCR (BLD) NOT DETECTED NOT DETECTED 05/18/2024 8:12 AM [facility] BACTEROIDES FRAGILIS PCR (BLD) NOT DETECTED NOT DETECTED 05/18/2024 8:12 AM [facility] ENTEROBACTERIACEAE PCR (BLD) NOT DETECTED NOT DETECTED 05/18/2024 8:12 AM [facility] ENTEROBACTER CLOACAE COMP PCR (BLD) NOT DETECTED NOT DETECTED 05/18/2024 8:12 AM [facility] ESCHERICHIA COLI PCR (BLD) NOT DETECTED NOT DETECTED 05/18/2024 8:12 AM [facility] KLEBSIELLA AEROGENES PCR (BLD) NOT DETECTED NOT DETECTED 05/18/2024 8:12 AM [facility] KLEBSIELLA OXYTOCA PCR (BLD) NOT DETECTED NOT DETECTED 05/18/2024 8:12 AM [facility] KLEBSIELLA PNEUMONIAE PCR (BLD) NOT DETECTED NOT DETECTED 05/18/2024 8:12 AM CREDIT COLLECTIONS SPECIALIST [facility] PROTEUS PCR (BLD) NOT DETECTED NOT DETECTED 05/18/2024 8:12 AM [facility] SALMONELLA PCR (BLD) NOT DETECTED NOT DETECTED 05/18/2024 8:12 AM [facility] SERRATIA MARCESCENS PCR (BLD) NOT DETECTED NOT DETECTED 05/18/2024 8:12 AM [facility] H. INFLUENZAE PCR (BLD) NOT DETECTED NOT DETECTED 05/18/2024 8:12 AM [facility] N. MENINGITIDIS PCR (BLD) NOT DETECTED NOT DETECTED 05/18/2024 8:12 AM [facility] PSEUDOMONAS AERUGINOSA PCR (BLD) NOT DETECTED NOT DETECTED 05/18/2024 8:12 AM [facility] STENOTROPHOMONAS MALTOPHILIA PCR (BLD) NOT DETECTED NOT DETECTED 05/18/2024 8:12 AM [facility] YA ALBICANS PCR (BLD) NOT DETECTED NOT DETECTED 05/18/2024 8:12 AM [facility] YA AURIS PCR (BLD) NOT DETECTED NOT DETECTED 05/18/2024 8:12 AM [facility] YA GLABRATA PCR (BLD) NOT DETECTED NOT DETECTED 05/18/2024 8:12 AM [facility] YA KRUSEI PCR (BLD) NOT DETECTED NOT DETECTED 05/18/2024 8:12 AM [facility] YA PARAPSILOSIS PCR (BLD) NOT DETECTED NOT DETECTED 05/18/2024 8:12 AM CREDIT COLLECTIONS SPECIALIST [facility] YA TROPICALIS PCR (BLD) NOT DETECTED NOT DETECTED 05/18/2024 8:12 AM CREDIT COLLECTIONS SPECIALIST [facility] CRYPTOCOCCUS NEOFORMANS/GATTII PCR (BLD) NOT DETECTED NOT DETECTED 05/18/2024 8:12 AM CREDIT COLLECTIONS SPECIALIST [facility] 05/17/2024 6:09 AM CREDIT COLLECTIONS SPECIALIST Talha Fung MD MICROBIOLOGY - GENERAL TU CARPIO Final Result [facility] [address] [place] [address], [place] [phone] * CORONAVIRUS (COVID-19) ANTIGEN (05/16/2024 11:37 AM CREDIT COLLECTIONS SPECIALIST) [facility] CORONAVIRUS ANTIGEN [place] NEGATIVE NEGATIVE 05/16/2024 12:28 PM CREDIT COLLECTIONS SPECIALIST [facility] Comment: NEGATIVE RESULTS DO NOT RULE OUT SARS-COV-2 INFECTION AND SHOULD NOT BE USED THE SOLE BASIS FOR TREATMENT OR PATIENT MANAGEMENT DECISIONS, INCLUDING INFECTION CONTROL DECISIONS. NEGATIVE RESULTS SHOULD BE CONSIDERED IN THE CONTEXT OF A PATIENT'S RECENT EXPOSURES, HISTORY AND THE PRESENCE OF CLINICAL SIGNS AND SYMPTOMS CONSISTENT WITH COVID 19. THIS TEST HAS BEEN AUTHORIZED BY THE FDA UNDER AN EMERGENCY USE AUTHORIZATION (EUA) FOR USE BY AUTHORIZED LABORATORIES. SPECIMEN TYPE NASAL 05/16/2024 11:51 AM CREDIT COLLECTIONS SPECIALIST [facility] NASAL NASAL STRUCTURE / Unknown 05/16/2024 11:37 AM CREDIT COLLECTIONS SPECIALIST us Mariam Watkins MD MICROBIOLOGY - GENERAL TU CARPIO Final Result [facility] [address] [place] [address], [place] [phone] * INFLUENZA A & B (05/16/2024 11:37 AM CREDIT COLLECTIONS SPECIALIST) SPECIMEN TYPE (INFLUENZA) NASOPHARYNGEAL SWAB 05/16/2024 11:51 AM CREDIT COLLECTIONS SPECIALIST [facility] INFLUENZA A NEGATIVE NEGATIVE 05/16/2024 12:28 PM CREDIT COLLECTIONS SPECIALIST [facility] INFLUENZA B NEGATIVE NEGATIVE 05/16/2024 12:28 PM CREDIT COLLECTIONS SPECIALIST [facility] Comment: A NEGATIVE RESULT DOES NOT EXCLUDE INFLUENZA VIRUS INFECTION. ??IF INFLUENZA IS CIRCULATING IN YOUR COMMUNITY, A DIAGNOSIS OF INFLUENZA SHOULD BE CONSIDERED BASED ON A PATIENT'S CLINICAL PRESENTATION AND EMPIRIC ANTIVIRAL TREATMENT SHOULD BE CONSIDERED IF INDICATED. NASOPHARYNGEAL SWAB / Unknown 05/16/2024 11:37 AM CREDIT COLLECTIONS SPECIALIST Mariam Watkins MD MICROBIOLOGY - [facility] Final Result Performing Organization Address City/[facility]/ZIP Co de Phone Number [facility] [address] [place] [address], * (ABNORMAL) LIPASE (05/16/2024 11:33 AM CREDIT COLLECTIONS SPECIALIST) LIPASE 12(L) 16 - 77 UNITS/L 05/16/2024 12:00 PM CREDIT COLLECTIONS SPECIALIST [facility] 05/16/2024 11:3 3 AM CREDIT COLLECTIONS SPECIALIST Mariam Watkins MD LABORATORY Final Resul t Performing Organization Address City/[facility]/ZIP [place] [address], * Critical Care (05/16/2024 11:29 AM CREDIT COLLECTIONS SPECIALIST) Narrative Mariam Watkins MD - 05/16/2024 11:29 AM CREDIT COLLECTIONS SPECIALIST Mariam Watkins MD ? 05/16/2024 ??3:43 PM Critical Care Performed by: Mariam Watkins MD Authorized by: Mariam Watkins MD ?? Critical care provider statement: ??Critical care time (minutes): ??40 ??Critical care was necessary to treat or prevent imminent or life-threatening deterioration of the following conditions: ??Sepsis ??Critical care was time spent personally by me on the following activities: ??Blood draw for specimens, discussions with consultants, discussions with primary provider, evaluation of patient's response to treatment, examination of patient, obtaining history from patient or surrogate, review of old charts, re-evaluation of patient's condition, ordering and review of radiographic studies, ordering and review of laboratory studies, ordering and performing treatments and interventions and pulse oximetry us Mariam Watkins MD PROCEDURE/MINOR SURGICAL OR DERABLES Final Result * CT ABD+PEL W IV CON ONLY (05/09/2024 7:54 PM CREDIT COLLECTIONS SPECIALIST) Anatomical Region Laterality Modality Abdomen Computed Tomogra phy 05/09/2024 8:18 PM CREDIT COLLECTIONS SPECIALIST Impressions 05/09/2024 8:40 PM CREDIT COLLECTIONS SPECIALIST IMPRESSION: 1. ??Findings compatible with nonspecific enteritis/colitis and diarrheal state. No evidence of bowel obstruction, as clinically queried. 2. ??Guerra catheter bulb appears in low lying position within the enlarged prostate. Recommend repositioning. 3. ??1.4 cm hypoenhancing focus in the pancreatic tail. This could possibly represent benign focal fatty infiltration, though recommend nonemergent further evaluation with pancreatic protocol MRI to exclude cyst or mass. 4. ??Small fat-containing umbilical hernia without evidence of complication. 5. ??Mild anasarca, more pronounced inferiorly. 6. ??0.7 cm pulmonary nodule in the lingula. Recommend follow-up chest CT in 6- 12 months. 7. ??Other chronic/nonurgent findings, as above. Referred By: ?? Interpreted By: Rj Mendoza MD, 05/09/2024 8:18 PM Narrative 05/09/2024 8:40 PM CREDIT COLLECTIONS SPECIALIST [address] [place] [address] INDICATION: Umbilical hernia, abdominal pain, concern for bowel obstruction COMPARISON: CT abdomen/pelvis, 09 Dec 2023 TECHNIQUE: CT images of the abdomen and pelvis were obtained following the administration of IV contrast. Radiation dose reduction technique utilized. FINDINGS: Limited visualization of the lower thorax reveals no acute abnormality. Partially visualized cardiac pacemaker leads. Mild to moderate coronary atherosclerosis. Benign calcified pulmonary granulomata. 0.7 cm pulmonary nodule in the lingula, axial image 11. Unchanged elevation of the right hemidiaphragm. Beam hardening artifact from upper extremities somewhat degrades evaluation of the upper abdomen. Limited assessment of the hepatic parenchyma. Gallbladder within normal limits. Main portal vein, splenic vein, SMV, and SMA enhance. Atherosclerosis of the abdominal and pelvic vasculature. No retroperitoneal lymphadenopathy. Moderate rectal stool burden. Normal appearing appendix. Mural edema in the sigmoid colon suggests nonspecific colitis. Liquid present throughout the small bowel and colon, consistent with diarrheal state. Mucosal enhancement pattern in the proximal jejunum compatible with nonspecific enteritis. Additional focus of mural edema in a loop of small bowel in anterior abdominal wall, axial image 95, also compatible with enteritis. Small bowel exhibits physiologic peristalsis. No evidence of bowel obstruction. Mild mesenteric edema. No mesenteric lymphadenopathy. Stomach and duodenum within normal limits. Limited evaluation of the splenic parenchyma due to beam hardening artifact. Incidental note of a small splenule. 1.4 cm hypoenhancing focus in the pancreatic tail, axial image 56. Pancreatic duct within normal limits. Adrenal glands within normal limits. Kidneys enhance symmetrically. No hydronephrosis or hydroureter. Urinary bladder is decompressed with Guerra catheter present. Urinary bladder wall appears thickened for the degree of distention, likely secondary to chronic outlet obstruction. Guerra catheter bulb appears in low lying position within the enlarged prostate. No pelvic lymphadenopathy or significant free fluid. Chronic degenerative changes of the hips, pubic symphysis, and sacroiliac joints. Chronic multilevel degenerative changes of the spine. Small fat-containing umbilical hernia without evidence of complication. Mild anasarca, more pronounced inferiorly. Procedure Note Rj Mendoza MD - 05/09/2024 [place] [id number] [facility] [place] [address] INDICATION: Umbilical hernia, abdominal pain, concern for bowelobstruction COMPARISON: CT abdomen/pelvis, 09 Dec 2023 TECHNIQUE: CT images of the abdomen and pelvis were obtained following theadministration of IV contrast. Radiation dose reduction techniqueutilized. FINDINGS: Limited visualization of the lower thorax reveals no acute abnormality.Partially visualized cardiac pacemaker leads. Mild to moderate coronaryatherosclerosis. Benign calcified pulmonary granulomata. 0.7 cm pulmonarynodule in the lingula, axial image 11. Unchanged elevation of the righthemidiaphragm. Beam hardening artifact from upper extremities somewhat degradesevaluation of the upper abdomen. Limited assessment of the hepaticparenchyma. Gallbladder within normal limits. Main portal vein, splenic vein, SMV, and SMA enhance. Atherosclerosis ofthe abdominal and pelvic vasculature. No retroperitoneallymphadenopathy. Moderate rectal stool burden. Normal appearing appendix. Mural edema inthe sigmoid colon suggests nonspecific colitis. Liquid present throughoutthe small bowel and colon, consistent with diarrheal state. Mucosalenhancement pattern in the proximal jejunum compatible with nonspecificenteritis. Additional focus of mural edema in a loop of small bowel inanterior abdominal wall, axial image 95, also compatible with enteritis.Small bowel exhibits physiologic peristalsis. No evidence of bowelobstruction. Mild mesenteric edema. No mesenteric lymphadenopathy. Stomach and duodenum within normal limits. Limited evaluation of the splenic parenchyma due to beam hardeningartifact. Incidental note of a small splenule. 1.4 cm hypoenhancing focusin the pancreatic tail, axial image 56. Pancreatic duct within normallimits. Adrenal glands within normal limits. Kidneys enhance symmetrically. No hydronephrosis or hydroureter. Urinary bladder is decompressed with Guerra catheter present. Urinarybladder wall appears thickened for the degree of distention, likelysecondary to chronic outlet obstruction. Guerra catheter bulb appears inlow lying position within the enlarged prostate. No pelvic lymphadenopathy or significant free fluid. Chronic degenerative changes of the hips, pubic symphysis, and sacroiliacjoints. Chronic multilevel degenerative changes of the spine. Small fat-containing umbilical hernia without evidence of complication. Mild anasarca, more pronounced inferiorly. IMPRESSION: 1. Findings compatible with nonspecific enteritis/colitis and diarrhealstate. No evidence of bowel obstruction, as clinically queried. 2. Guerra catheter bulb appears in low lying position within the enlargedprostate. Recommend repositioning. 3. 1.4 cm hypoenhancing focus in the pancreatic tail. This could possiblyrepresent benign focal fatty infiltration, though recommend nonemergentfurther evaluation with pancreatic protocol MRI to exclude cyst or mass. 4. Small fat-containing umbilical hernia without evidence ofcomplication. 5. Mild anasarca, more pronounced inferiorly. 6. 0.7 cm pulmonary nodule in the lingula. Recommend follow-up chest CTin 6-12 months. 7. Other chronic/nonurgent findings, as above. Referred By: Interpreted By: Rj Mendoza MD, 05/09/2024 8:18 PM us Arias Franco MD CT Final Result * OCCULT BLOOD, FECES, DIAGNOSTIC (04/03/2024 9:30 AM CDT) Only the most recent of2 resultswithin the time period is included. OCCULT BLOOD FECAL NEGATIVE NEGATIVE 04/03/2024 10:42 AM CDT [facility] STOOL SPECIMEN / Unknown 04/03/2024 9:30 AM CDT Chris Oliva MD BODY FLUIDS AND STOOLS TU CARPIO Final Result Performing Organization Address City/State/[facility] Co de Phone Number [facility] [place] [address], from Last 3 Months Additional Health Concerns Infection Onset Date Last Indicated ESBL - Extended Spectrum Beta-lactamase 06/01/20 24 06/03/2024 Parainfluenza 06/03/2024 06/03/2024 Insurance MEDICARE MEDICARE Advance Directives Documents on File Type Date Recorded Patient Cyber Security Instructor Expl anation Advance Directives and Livin g Will 08/24/2023 12:26 PM * Full Code (Latest Code Status on File) Date Activated Date Inactivated Comments 05/16/2024 9:18 PM 05/25/2024 5:32 PM * Full Code Date Activated Date Inactivated Comments 07/27/2023 11:59 AM 07/31/2023 3:31 PM * Full Code Date Activated Date Inactivated Comments 01/18/2023 10:24 AM 01/21/2023 6:37 PM * Full Code Date Activated Date Inactivated Comments 01/17/2023 4:05 PM 01/18/2023 10:24 AM * Full Code Date Activated Date Inactivated Comments 09/16/2022 11:13 AM 09/16/2022 3:14 PM Care Teams Knot Picker Cloth Relationship Specialty [place] [address] [place] [address] [place] [address] PCP - General FAMILY PRACTICE 12/17/15 Madan Palomo MD [address] [place] [id number] EP Waste Machine Tender CLINICAL CARDIAC ELECTROPHYSIOLOGY 10/08/21 Norma Rowland PA-C [address] [place] [address] [phone] Referring Physician PHYSICIAN PARK ATTENDANT 12/31/23
--- OUTSIDE RECORDS SUMMARY | 2024-06-08 06:07 | XMS_ITS | Encounter Summary ---
Author Organization [facility] Address [facility] [place] [address] [place] [address] Care Team Providers Care Insecticide Mixer Name Role Phone Abdon Villela MD Primary Care Provider [phone] Madan Palomo MD Unavailable [phone] Norma Rowland PA-C Unavailable [phone] Encounter Details Date Type Department Care Team (Late st Contact Info) Description 06/03/2024 Hospital Encounter [facility] [address] [place] [address] Social History Tobacco Use Types Packs/Day Years Used Date Smoking Tobacco: Former Cigarettes 1 29.6 0 02/14/1966 - 10/07/1995 Pipe Smokeless Tobacco: Never Alcohol Use Standard Drinks/Week Comments No 0 (1 standard drink = 0.6 oz pur e alcohol) [place] Utilities Answer Date Recorded In the past 12 months has e Clicker, gas, oil, or water [employer] threatened to shut off services in your [...] Never 07/27/2023 How often do you attend restoration or uatsdin serv ices? Never 07/27/2023 Do you belong to any clubs o r organizations such as restoration groups, unions, fraternal or athletic groups, or [...] and heating? Not hard at all 05/17/2024 [facility] of Occupat ional Health - Occupational Stress [...] any time in the past 12 m [facility], were you homeless or living in [...] Assessment Author Status Yes 05/17/2024 3:11 AM SOIL TECHNOLOGIST Gralewski, Hector M , RN Active * Because of a physical, mental, or emotional condition, do you have difficulty doing errands alone such as visiting a doctor's office or shopping? Answer Date of Assessment Author Status Yes 05/17/2024 3:11 AM SOIL TECHNOLOGIST Hector Buchanan RN Active documented as of this encounter Mental Status * Because of a physical, mental, or emotional condition, do you have serious difficulty concentrating, remembering, or making decisions? Answer Entry Date Author Status Yes 05/17/2024 3:11 AM SOIL TECHNOLOGIST Hector Buchanan RN Active documented in this encounter Nursing Notes * Giselle Castillo RN - 06/03/2024 11:27 PM CSTSummary: RN Report [facility] Nursing Report Transferring Hospital: [facility] RN:Quinn Savage MD:Makenzie Oconnor MD:Ana Diagnosis:acute metabolic encephalopathy Patient complaint: NH states patient unresponsive. In ED patient is responsive to name and painful stimuli per ED staff this is his baseline. He has dementia at baseline. Labs:See chart Imaging:see chart Medications received: Rocephin, azithromycin. Will also give vancomycin and zosyn Lines/Drains/Tubes:Right upper arm PICC, 20 RFA Cardiac/EKG:see chart Pertinent assessment: A/O x1 (baseline), bandage on his buttocks ( nurse did not take down to look at skin). Lungs crackles and no edema noted. Pertinent medical hx: CHF, A-fib, pacemaker, CAD, HTN, HLD, chronic hill. Hill placed on 05-24-24 per medical records from [place] Vitals: 94/64, 66, 20, 96% RA Height/Weight: Allergies:tomato Code status: full Isolation:ESBL Emergency Contact: Date/Time of report:2327 Room assignment:720 ETA to [facility]: [id number] TECHNOLOGIST documented in this encounter Plan of Treatment Upcoming Encounters Date Type Department Care Team (Latest Contact Info) Description 06/09/2024 2:20 PM SOIL TECHNOLOGIST Telemedicine [facility] Medical [facility] Multispecialty [address] [address] Earnest Drake MD [address] [place] [address] 06/21/2024 1:30 AM SOIL TECHNOLOGIST Allied Health/Nurse Visit [facility] [address] [place] [address] Madan Palomo MD [address] [place] [address] 03/01/2025 11:00 AM CDT Allied Health/Nurse Visit [place] [address] [place] [phone] Norma Rowland PA-C [address] [place], [place] [address] 03/01/2025 11:00 AM CDT Office Visit [place] [address] [place] [phone] Norma Rowland PA-C [address] [place], [place] [address] documented as of this encounter Visit Diagnoses Not on filedocumented in this encounter Additional Health Concerns Infection Onset Date Last Indicated Resolved Time ESBL - Extended Spectrum Beta-lactamase 06/01/2024 06/03/2024 COVID-19 Rule Out 06/03/2024 06/03/2024 06/04/2024 5:43 PM SOIL TECHNOLOGIST Parainfluenza 06/03/2024 06/03/2024 documented as of this encounter Care Teams Insecticide Mixer Relationship Specialty Start Date End Date Abdon Villela MD [address] [place] [phone] PCP - General FAMILY PRACTICE 12/17/15 Madan Palomo MD [address] [place] [address] [place] [address] EP Electric Range Preparer CLINICAL CARDIAC ELECTROPHYSIOLOGY 10/08/21 Norma Rowland PA-C [address] [place] [address] Referring Physician PHYSICIAN TRAFFIC MAINTENANCE OFFICER 12/31/23 documented as of this encounter
--- OUTSIDE RECORDS SUMMARY | 2024-06-08 06:07 | XMS_ITS | Encounter Summary ---
Author Organization [facility] Address [address] [place] [address]. [place], [place] [address] [place] [address] Care Team Providers Care Juice Standardizer Name Role Phone Abdon Villela MD Primary Care Provider [phone] Madan Palomo MD Unavailable [phone] Norma Rowland PA-C Unavailable [phone] Reason for Visit * Reason Onset Date Comments Lab Order 05/25/2024 Question 05/25/2024 Results 05/25/2024 Encounter Details Date Type Department Care Team (Late st Contact Info) Description 05/25/2024 Telephone [facility] Medical Group Multispecialty [facility] [address] [place] [address] Earnest Neumann MD [address] [place] [address] Lab Order; Question; Results Social History Tobacco Use Types Packs/Day Years Used Date Smoking Tobacco: Former Cigarettes 1 29.6 0 02/14/1966 - 10/07/1995 Pipe Smokeless Tobacco: Never Alcohol Use Standard Drinks/Week Comments No 0 (1 standard drink = 0.6 oz pur e alcohol) [facility] Utilities Answer Date Recorded In the past [...] Never 07/27/2023 How often do you attend adventism or taoist serv ices? Never 07/27/2023 Do you belong to any clubs o r organizations such as adventism groups, unions, fraternal or athletic groups, or [...] and heating? Not hard at all 05/17/2024 [facility] [place] of Occupat ional Health - Occupational Stress [...] place to sleep or slept in a long-term (including now)? No 07/27/2023 Housing Stability Vital Sign Answer Malik e Recorded In the last 12 months, was t here a time when you were not able to pay the mortgage or rent on time? No 05/17/2024 In the past 12 months, how m any times have you moved where you were living? 0 05/17/2024 At any time in the past 12 m [facility], were you homeless or living in a long-term (including now)? No 05/17/2024 Sex and Gender [...] Lyn RN Active documented in this encounter Progress Notes * Casi Grayson MA - 06/01/2024 10:38 AM CST Just called [facility] and spoke to pt's nurse May regarding pt's lab results( CBC, CMP, CPK) and she states that she will fax over results after taking the fax number. She was v/u. ROLL FINISHER * Ashanti Sigala LPN - 05/26/2024 9:45 AM CST I spoke to Felisha and they are not able to draw labs on Thursday, the lab comes on Thursday and I told her that was fine. I also scheduled a video visit for 06/09/24 at 2:20 pm. ROLL FINISHER * Sujey Floyd RN - 05/25/2024 4:15 PM CST Returned call - no answer x 2 Will try again in the morning ROLL FINISHER * Sahvon Mccarthy - 05/25/2024 4:01 PM CST Caller name: [facility] Facility name: [facility] Call back/ext. #: [phone] MyChart: No- caller prefers to be called via telephone Call details: Calling about patient labs, wants to know when will Dr neumann want this patient to have labs done? She states this is a urgent request for a responds ROLL FINISHER documented in this encounter Plan of Treatment Upcoming Encounters Date Type Department Care Team (Latest Contact Info) Description 06/09/2024 2:20 PM PONY ROLL FINISHER Telemedicine [facility] [address] [place] [phone] Earnest Neumann MD [address] [place], [place] [phone] 06/21/2024 1:30 AM PONY ROLL FINISHER [facility] [address] [place] [address] Madan Palomo MD [address] [place] [address] 03/01/2025 11:00 AM CDT Allied Health/Nurse Visit [facility] [address] [place] [address] Norma Rowland PA-C [address] [place] [address] 03/01/2025 11:00 AM CDT Office [facility] [address] Norma Rowland PA-C [address] [place] [address] documented as of this encounter Visit Diagnoses Not on filedocumented in this encounter Care Teams Juice Standardizer Relationship Specialty Start Date End Date Abdon Villela MD [address] [facility] [place] [address] PCP - General FAMILY PRACTICE 12/17/15 Madan Palomo MD [address] [place] [address] EP Sewer Pipe Sorter CLINICAL CARDIAC ELECTROPHYSIOLOGY 10/08/21 Norma Rowland PA-C [address] [place] [address] Referring Physician PHYSICIAN SHELLFISH WEIGHER 12/31/23 documented as of this encounter
--- OUTSIDE RECORDS SUMMARY | 2024-06-08 06:07 | XMS_ITS | Encounter Summary ---
Author Organization [facility] Address [facility] [place] [address] [place] [address] Care Team Providers Care Director Of Health Education Name Role Phone Abdon Mendoza MD Primary Care Provider [phone] Madan Palomo MD Unavailable [phone] Norma Rowland PA-C Unavailable [phone] Reason for Referral * Imaging (Urgent) - New Request Specialty Diagnoses / Procedures Referred By Davni humphries Referred To Contact RADIOLOGY Procedures XA GENERIC ORIENTOR [facility] Med/Surg [address] [place] [address] Phone: tel: Referral ID Status Reason Start Date Expiration Date V isits Requested Visits Authorized [id number] New Request 05/23/2024 05/23/2025 1 1 RDS MANAGEMENT TECHNICIAN * Imaging (Urgent) - Closed Specialty Diagnoses / Procedures Referred By Davin humphries Referred To Contact RADIOLOGY Diagnoses n/a Procedures USE TRANSESOPHAGEAL ECHO Percy Landa MD Three [facility]. [place] [address] [place] [address] Phone: tel: fax: Referral ID Status Reason Start Date Expiration Date Visits Re quested Visits Authorized [id number] Closed 05/23/2024 05/23/2025 1 1 RDS MANAGEMENT TECHNICIAN * Imaging (Urgent) - Pending Review Specialty Diagnoses / Procedures Referred By Davin humphries Referred To Contact RADIOLOGY Procedures USE ECHOCARDIOGRAM W CON USE ECHOCARDIOGRAM Mansoor Lema MD [address] [place] [address] Phone: tel: [phone] fax: Referral ID Status Reason Start Date Expiration Date V isits Requested Visits Authorized [id number] Pending Review 05/18/2024 05/18/2025 1 1 RDS MANAGEMENT TECHNICIAN * (Routine) - New Request Specialty Diagnoses / Procedures Referred By Davin humphries Referred To Contact Procedures OT eval and treat [facility] [place] [address] Phone: tel: fax: Referral ID Status Reason Start Date Expiration Date V isits Requested Visits Authorized [id number] New Request 05/18/2024 05/18/2025 1 1 RDS MANAGEMENT TECHNICIAN * (Routine) - New Request Specialty Diagnoses / Procedures Referred By Davin humphries Referred To Contact Procedures PT eval and treat [facility] [place] [address] Phone: tel: fax: Referral ID Status Reason Start Date Expiration Date V isits Requested Visits Authorized [id number] New Request 05/18/2024 05/18/2025 1 1 RDS MANAGEMENT TECHNICIAN * (Routine) - Canceled Specialty Diagnoses / Procedures Referred By Davin humphries Referred To Contact Procedures HERBOLOGIST eval and treat [facility] [place] [address] Phone: tel: fax: Referral ID Status Reason Start Date Expiration Date V isits Requested Visits Authorized [id number] Canceled 05/17/2024 05/17/2025 1 1 RDS MANAGEMENT TECHNICIAN Reason for Visit * Auth/Cert (Routine) Specialty Diagnoses / Procedures Referred By Davin humphries Referred To Contact Diagnoses Hematuria HEMATURIA, UROSEPSIS Procedures NONE Merlin Harrell MD [address] [place] [address] Phone: tel: fax: Referral ID Status Reason Start Date Expiration Date Visits Re quested Visits Authorized [id number] 1 1 Encounter Details Date Type Department Care Team (Late st Contact Info) Description 05/16/2024 9:12 PM RECORDS MANAGEMENT TECHNICIAN - 05/25/2024 3:15 PM RECORDS MANAGEMENT TECHNICIAN Hospital Encounter [facility] Med/Surg 3rd [address] [place], [place] [address] [phone] Merlin Harrell MD [address] [place] [address] Talha Fung MD 1 [place] [address] [phone] (Work) Erika Mtz MD 1 [place], [place] [id number] [phone] Mansoor Lema MD 1 [place], [place] [address] [phone] (Work) Som Miller MD [address] [facility] [place] [address] [phone] (Work) Madi Maynard APRN [address] [facility] [place] [address] Discharge Disposition: [facility]way Facility Social History Tobacco Use Types Packs/Day Years Used Date Smoking Tobacco: Former Cigarettes 1 29.6 0 02/14/1966 - 10/07/1995 Pipe Smokeless Tobacco: Never Alcohol Use Standard Drinks/Week Comments No 0 (1 standard drink = 0.6 oz pur e alcohol) [facility] Utilities Answer Date Recorded In the past 12 months has e [employer], gas, oil, or water [employer] threatened to shut off services in your [...] Never 07/27/2023 How often do you attend sikhism or roman catholic serv ices? Never 07/27/2023 Do you belong to any clubs o r organizations such as sikhism groups, unions, fraternal or athletic groups, or [...] and heating? Not hard at all 05/17/2024 [place] [place] [facility] Occup[facility] ional [facility] - Occupational Stress [...] place to sleep or slept in a chcf (including now)? No 07/27/2023 Housing Stability Vital [...] were you homeless or living in a chcf (including now)? No 05/17/2024 Sex and Gender [...] Sign Reading Time Taken Comments Blood Pressure 103/53 05/25/2024 11:21 AM RECORDS MANAGEMENT TECHNICIAN Pulse 61 05/25/2024 11:21 AM RECORDS MANAGEMENT TECHNICIAN Temperature 37.1 ??C (98.8 ??F) 05/25/2024 11:[address] Respiratory Rate 16 05/25/2024 11:21 AM RECORDS MANAGEMENT TECHNICIAN Oxygen Saturation 91% 05/25/2024 11:21 AM RECORDS MANAGEMENT TECHNICIAN Inhaled Oxygen Concentration - - Weight 79.2 kg (174 lb 9.7 oz) 05/21/2024 5:11 A M RECORDS MANAGEMENT TECHNICIAN Height 182.9 cm (6') 05/16/2024 9:32 PM RECORDS MANAGEMENT TECHNICIAN Body Mass Index 23.68 05/16/2024 9:32 PM RECORDS MANAGEMENT TECHNICIAN documented in this encounter Functional Status * Question Answer Date of Assessment Author Status Do you have serious difficulty walking or climbing stairs? Yes 05/17/2024 3:11 AM Hector Lyn RN A ctive * Question Answer Date of Assessment Author Status Do you have difficulty dressing or bathing? Yes 05/17/2024 3:11 AM Hector Lyn RN Active Because of a physical, mental, or emotional condition, do you have difficulty doing errands alone such as visiting a doctor's office or shopping? Yes 05/17/2024 3:11 AM Hector Lyn RN Ac tive * Are you deaf or do you [...] difficulty concentrating, remembering, or making decisions? Yes 05/17/2024 3:11 AM Hector Lyn RN Active * Because of a physical, mental, or emotional condition, do you have serious difficulty concentrating, remembering, or making decisions? Answer Entry Date Author Status Yes 05/17/2024 3:11 AM Hector Lyn RN Active documented in this encounter Discharge Summaries * Madi Maynard APRN - 05/25/2024 7:23 AM CST Images from the original note were not included. Hospitalist Discharge Summary Patient ID: Avila Crocker. male. 1945. Admit date: 05/16/2024 9:12 PM Discharge date and time: 05/25/24 Admitting Provider: Merlin Harrell MD Attending Provider: Madi Maynard APRN Primary Care Provider: ADBON MENDOZA MD Hospital Diagnosis: Principal Problem: Hematuria SNOMED CT(R): BLOOD IN URINE Sepsis, bacteremia, CAUTI Indication for Admission: No chief complaint on file. Hospital Course: Per H&P, Avila Crocker is a 79-year-old male With past medical history significant for hypertension, dyslipidemia, A-fib on anticoagulation with Eliquis, CAD, cardiomyopathywith recovered EF with most recent EF 55-60% on 07/27/2023 compared to 35-40% 2021, SSS post pacemaker placement 2012 and had upgrade of dual-chamber pacemaker to biventricular pacemaker August 2022, dementia. Patient presents to our facility as a transfer from [place] ED in [place] where patient presented initially for chest pain, per records patient is not able to provide history and patient was given 1 dose of nitro without any relief, patient denied chest pain for EMS and ED provider,patient denied any acute complaints for me, no chest pain, no shortness of breath, no abdominal pain. In ED patient was evaluated and was noted to have hematuria, labs showed a white count of 13, UA was positive for UTI, patient was started on IV Rocephin, urology were consulted and patient was transferred to our facility for further evaluation and treatment. Patient was seen at [facility] ED on 05/09/2024 for incarcerated umbilical hernia that was reduced by ED provider, CT abdomen and pelvis showed finding compatible with nonspecific enteritis/colitis, Guerra catheter bulb appears in the low lying position with an enlarged prostate and recommended repositioning. Now medically stable for discharge. See below for details on course of hospitalization. Sepsis Bacteremia Patient admitted to the telemetry unit Evident with systemic inflammatory response with white count 13, fever 102.8F Source: , bacteremia Lactic acid 4.2, improved to 2.8 05/16 blood culture +gram positive cocci in clusters IV Rocephin/Vanc (05/16- ) WBC uptrending 13>23 ID consulted, appreciate recs 05/17 blood culture is positive again for staph 05/18 cont with Vanc, Ceftriaxone. WBC 13.29. plan for echo to check for IE. 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 Repeat blood culture tomorrow 05/19 Cont with IV ceftriaxone and Vanc for now. First culture 05/16 result is MSSA, awaiting 05/17culture and sensitivity. WBC 12.25 05/20 WBC 9.68. 05/17 culture showed MSSA. ID switched abx of daptomycin. Echo showed a small 0.7 cm. linear structure on ventricular aspect of anterior and also posterior mitral leaflets- cannot exclude vegetation (vs. part of chordal structure). Since then cont with daptomycin. Cardiology is consulted for a TATE. Discussed with card: negative blood culture, no compelling vegetation on review, thus will hold TEEfor now and will need to discuss with ID again for need for TATE 05/23 discussed with ID and Dr Hogan recommended to proceed with TATE. TATE did not show vegetation. ID is planning for PICC line, IV daptomycin q 24 hrs until Jul 01 2024. Labs to be done every THURSDAY while on IV antibitoics and to be faxed at [phone] and [phone]: CBC, CMP,CPK Follow up visits 2 to [address] Hogan Infectious endocarditis: ruled out See above for TTE, TATE and abx plan CAUTI Patient urine culture on 12/12/2023 showed PROVIDENCIA STUARTII susceptible to Rocephin Patient started on Rocephin, continue In ED hematuria was noted, currently urine looks clear Patient had a CT abdomen and pelvis on 05/09/2024 which recommended repositioning Guerra catheter asthe bulb was laying within the enlarged prostate Urology consulted. Recommends monitoring for gross hematuria. If this develops, replace Guerra with a 22Fr 3-way catheter (currently tamara urine). Otherwise, continue monthly catheter exchanges at nursing facility. No plan for inpatient urological intervention at this time 05/16/24 Urine culture [facility]PC See above for abx changes A-fib On anticoagulation with Eliquis, will hold with drop in hemoglobin and monitoring for hematuria held BB for now with initial low BP 05/19 HR 50s, cont to hold BB 05/20 resumed BB, lasix and lisinopril. Urine appears clear and Hgb is stable, thus resumed eliquis Since then, cont with coreg and eliquis Mild-moderate oropharyngeal phase dysphagia 05/24 had MBS: Recommend puree diet, thin liquids by teaspoon or single cup drink only, no straw alternate solids/liquids, sit upright for all PO intake, and remain for 30 minutes after. Type 2 diabetes mellitus Holding metformin Accu-Cheks and insulin protocol Dyslipidemia Hold statin while on Daptomycin. Resume after completion in if LFTs WNL. Anemia Hemoglobin 11 > 9 Baseline hgb 9-10 Hx of LISA Continue to monitor Transfuse hemoglobin <7 HTN Holding home meds with soft pressures initially Now resume coreg, lisinopril Hypomagnesemia Replace with IV mag Cardiomyopathy With recovered EF 55-60% on 07/27/2023 Resumed lasix, BB and ACEI Dementia Alert and oriented to self only Discharge Exam: Filed Vitals: 05/24/24 1936 05/25/24 0010 05/25/24 0421 05/25/24 0736 BP: (!) 120/105 121/67 126/73 (!) 144/73 Pulse: (!) 57 60 60 64 Resp: 17 17 17 18 Temp: 97.6 ??F (36.4 ??C) 97.5 ??F (36.4 ??C) 98.6 ??F (37 ??C) 97.7 ??F (36.5 ??C) TempSrc: Axillary Axillary Axillary Oral SpO2: 98% 95% 93% 96% Weight: Height: GEN: In no acute distress. Breathing comfortably on room air. HEENT: Clear conjunctiva. Mucous membranes moist. RESPIRATORY: Effort normal. Diminished b/l, no wheezes or crackles. CVS: RRR, no MRG. ABD: Soft, Nontender. EXT: No edema. SKIN: Warm, dry. No rashes or ulcers. PSYCH: Calm, impaired judgement and memory NEURO: Alert and oriented x1. Mostly nonsensical speech. Significant Diagnostic Studies: Recent Labs Lab 05/19/24 0510 05/20/24 0518 05/21/24 0428 05/22/24 0526 05/23/24 0515 05/24/24 0515 05/25/24 0435 WBC 12.25* 9.68 9.44 10.70 10.42 10.24 9.92 RBC 3.71* 4.01* 3.99* 3.70* 3.70* 3.76* 3.68* HGB 9.9* 10.7* 10.5* 9.8* 9.9* 9.8* 9.7* HCT 31.7* 34.1* 34.2* 31.9* 31.9* 32.1* 31.4* MCV 85.4 85.0 85.7 86.2 86.2 85.4 85.3 MCH 26.7* 26.7* 26.3* 26.5* 26.8* 26.1* 26.4* MCHC 31.2* 31.4* 30.7* 30.7* 31.0* 30.5* 30.9* PLT 195 208 180 194 196 236 263 RDW 15.8* 15.7* 15.9* 16.0* 16.1* 16.1* 16.0* MPV 11.1 10.8 11.6 10.8 10.8 11.3 10.8 PERNEU 85.6 80.4 79.6 77.1 79.2 81.8 82.6 PERLYM 8.5 11.8 10.3 12.9 13.1 13.4 12.4 PERMON 4.6 5.5 8.2 9.0 6.3 4.1 3.8 NEUC 10.49* 7.78* 7.52 8.26* 8.26* 8.38* 8.19* LYMC 1.04 1.14 0.97* 1.38 1.36 1.37 1.23 MONOC 0.56 0.53 0.77 0.96* 0.66 0.42 0.38 EOSC 0.08 0.15 0.10 0.03* 0.04 0.02* 0.05 BASOC 0.03 0.03 0.02 0.03 0.03 0.01 0.01 DTYPE AUTOMATED DIFFERENTIAL AUTOMATED DIFFERENTIAL AUTOMATED DIFFERENTIAL AUTOMATED DIFFERENTIAL AUTOMATED DIFFERENTIAL AUTOMATED DIFFERENTIAL AUTOMATED DIFFERENTIAL Recent Labs Lab 05/19/24 0510 05/20/24 0518 05/21/24 0428 05/22/24 0526 05/23/24 0758 05/24/24 0515 05/25/24 0435 NA 138 141 141 139 137 137 140 K 3.6 4.1 3.8 3.7 3.8 3.9 3.7 CL 106 109 108 107 106 104 106 CO2 28.3 27.8 27.9 27.4 26.5 29.4 27.2 AGAP 3.7 4.2 5.1 4.6 4.5 3.6 6.8 BUN 16 16 18 21* 26* 28* 26* CR 0.46* 0.52* 0.63* 0.63* 0.59* 0.63* 0.56* BUNCREATININ 34.9* 30.6* 28.7* 33.2* 44.3* 44.4* 46.5* GLU 145* 150* 194* 171* 168* 174* 142* CA 8.7 8.8 9.0 8.8 8.7 8.7 8.5 TP -- -- -- -- -- -- 6.0* ALB -- -- -- -- -- -- 1.8* TBIL -- -- -- -- -- -- 0.8 ALKP -- -- -- -- -- -- 73 AST -- -- -- -- -- -- 19 ALT -- -- -- -- -- -- 16 No results for input(s): CHOL , TRI , HDL , LDL , HGBA1C , TSH in the last 168 hours. No results for input(s): APTT , INR , PTT in the last 168 hours. Recent Labs Lab 05/21/24 0428 05/23/24 0758 CPK 33* 49 No results for input(s): LACTICACID , PROCT in the last 168 hours. No results for input(s): PH , PCO2 , PO2 , M8DSYNNFMRUN , BICARBWB , BASEDEFICIT , BASEEXCESS in the last 168 hours. Results for orders placed or performed during the hospital encounter of 02/17/23 URINALYSIS, AUTO, COMPLETE Collection Time: 02/17/23 10:00 AM Result Value Ref Range COLOR (U) LIGHT YELLOW TRANSPARENCY CLEAR SPECIFIC GRAVITY (U) 1.010 1.003 - 1.030 U PH 6.5 5.0 - 9.0 LEUKOCYTES (U) NEGATIVE NEGATIVE NITRITES NEGATIVE NEGATIVE PROTEIN RANDOM (U) NEGATIVE NEGATIVE GLUCOSE (U) NORMAL NORMAL KETONES MG/DL (U) NEGATIVE NEGATIVE UROBILINOGEN NORMAL NORMAL MG/DL BILIRUBIN (U) NEGATIVE NEGATIVE BLOOD (U) NEGATIVE NEGATIVE MUCUS PRESENT HYALINE CASTS 0-5 WBC/HPF 0-5 0 - 5 /HPF COMMENT (U) URINE RESULTS Radiology Reports : See official reports for full details ECG 12 lead Result Date: 05/17/[address] 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 [address] Examination: XR CHEST PORTABLE Exam time: 05/16/2024 11:43 AM Clinical history: Chest pain, fever Comparison: 12/09/2023 Technique: AP chest Findings: Borderline heart size similar to previous study. Left subclavian transvenous pacerlead placements are unchanged. No pulmonary vascular congestion. There is no acute pulmonary parench ymal opacity. No pleural effusion. No hyperinflation. IMPRESSION: 1) No radiographic evidence of active disease the chest. Ordered By: ROBERT WATKINS Interpreted By: Flo Gardner MD, 05/16/2024 12:[address] ABD+PEL W IV CON ONLY Result Date: 05/09/[address] [place] [address] INDICATION: Umbilical hernia, abdominal pain, concern for bowel obstruction COMPARISON: CT abdomen/pelvis, 09 Dec 2023 TECHNIQUE: CTimages of the abdomen and pelvis were obtained following the administration of IV contrast. Radiation dose reduction technique utilized. FINDINGS: Limited visualization of the lower thorax reveals noacute abnormality. Partially visualized cardiac pacemaker leads. Mild to moderate coronary atherosclerosis. Benign calcified pulmonary granulomata. 0.7 cm pulmonary nodule in the lingula, axial image11. Unchanged elevation of the right hemidiaphragm. Beam hardening artifact from upper extremities somewhat degrades evaluation of the upper abdomen. Limited assessment of the hepatic parenchyma. Gallbladder within normal limits. Main portal vein, splenic vein, SMV, and SMA enhance. Atherosclerosisof the abdominal and pelvic vasculature. No retroperitoneal lymphadenopathy. Moderate rectal stool burden. Normal appearing appendix. Mural edema in the sigmoid colon suggests nonspecific colitis. Liquid present throughout the small bowel and colon, consistent with diarrheal state. Mucosal enhancement pattern in the proximal jejunum compatible with nonspecific enteritis. Additional focus of muraledema in a loop of small bowel in [...] 1. Findings compatible with nonspecific enteritis/colitis and diarrheal state. No evidence of bowel obstruction, as clinically queried. 2. Guerra catheter bulb appears in low lying position within the enlarged prostate. Recommend repositioning. 3. 1.4 cm hypoenhancing focus in the pancreatic tail. This could possibly represent benign focal fatty infiltration, though recommend nonemergent further evaluation with pancreatic protocol MRI to exclude cyst or mass. 4. Small fat-containing umbilical hernia without evidence of complication. 5. Mild anasarca, more pronounced inferiorly. 6. 0.7 cm pulmonary nodule in the lingula. Recommend follow-up chest CT in 6-12 months. 7. Other chronic /nonurgent findings, as above. Referred By: Interpreted By: Rj Mendoza MD, 05/09/2024 8:18 PM Echocardiogram 05/20/24 The left ventricular size is normal. Estimated [...] suspected, consider TATE . Technically challenging study TATE 05/23/24 The left ventricular size is normal. The left ventricular systolic function is mildly depressed. Mild mitral regurgitation. Myxomatous degeneration of mitral valve. No vegetations visualized on valves or devices wires. CXR 05/24/24 Moderate right hemidiaphragm elevation. Some minimal right base infiltrate and/or atelectasis. Leftlung is grossly clear. Heart size and pulmonary vascular caliber is magnified. Cardiac pacemaking hardware again noted. Interim placement of a right-sided PICC line with the tip in the mid right SVC. IMPRESSION: INTERIM RIGHT-SIDED PICC LINE PLACEMENT IN SATISFACTORY POSITION. MBS 05/24/24 There was significant residual seen within the vallecula and piriform sinuses, with minimal clearance following cued swallow. There is penetration observed for thin liquid barium as seen on series 9.No aspiration or penetration observed for pudding consistency barium, barium coated cracker, or nectar consistency barium. Multilevel cervical spondylosis. IMPRESSION: 1. Penetration with thin liquid barium. 2. Residual within the vallecula and piriform sinuses. Please see speech pathology report for further discussion. Discharge condition: At baseline Discharge Medications: Medication List START taking these medications Morning Afternoon Evening Bedtime As Needed DAPTOmycin 600 mg in sodium chloride 0.9 % SOLN 100 mL Inject 600 mg into the vein daily for 37 days. Last time this was given: 800 mg on May 24, 2024 8:27 AM Signed by: Madi Maynard Last time this was given: May 24, 2024 8:27 AM Inject 600 mg into the vein daily for 37 days. magnesium oxide 400 (240 Mg) MG tablet Commonly known as: MAG-OX Take 1 tablet (400 mg total) by mouth 2 (two) times daily. Last time this was given: 400 mg on May 25, 2024 8:10 AM Signed by: Madi Maynard Last time this was given: May 25, 2024 8:10 AM Replaces: magnesium oxide 400 (241.3 Mg) MG tablet 1 tablet 1 tablet CONTINUE taking these medications Morning Afternoon Evening Bedtime As Needed acetaminophen 500 MG tablet Commonly known as: TYLENOL Take 2 tablets (1,000 mg total) by mouth every 6 (six) hours as needed for Pain. 2 tablets apixaban 5 MG tablet Commonly known as: Eliquis Take 1 tablet (5 mg total) by mouth 2 (two) times daily. Last time this was given: 5 mg on May 25, 2024 8:10 AM Signed by: Dr. Madan Palomo Last time this was given: May 25, 2024 8:10 AM 1 tablet 1 tablet carvedilol 6.25 MG tablet Commonly known as: COREG Take 1 tablet (6.25 mg total) by mouth 2 (two) times daily. Last time this was given: 6.25 mg on May 25, 2024 8:02 AM Signed by: Dr. Madan Palomo Last time this was given: May 25, 2024 8:02 AM 1 tablet 1 tablet ferrous sulfate EC 325 (65 Fe) MG tablet Take 1 tablet by mouth daily. 1 tablet finasteride 5 MG tablet Commonly known as: PROSCAR Take 1 tablet (5 mg total) by mouth daily. 1 tablet furosemide 40 MG tablet Commonly known as: LASIX Take 1 tablet (40 mg total) by mouth daily. Last time this was given: 40 mg on May 25, 2024 8:10 AM Signed by: Sandra Short Last time this was given: May 25, 2024 8:10 AM 1 tablet lisinopril 5 MG tablet Commonly known as: PRINIVIL Take 1 tablet (5 mg total) by mouth daily. Last time this was given: 5 mg on May 25, 2024 8:11 AM Signed by: Dr. Madan Palomo Last time this was given: May 25, 2024 8:11 AM 1 tablet loperamide 2 MG capsule Commonly known as: IMODIUM Take 1 capsule (2 mg total) by mouth 4 (four) times daily as needed for Diarrhea. 1 capsule metFORMIN 1000 MG tablet Commonly known as: GLUCOPHAGE Take 1 tablet (1,000 mg total) by mouth 2 (two) times daily. 1 tablet 1 tablet nitroglycerin 0.4 MG SL tablet Commonly known as: NITROSTAT Place 1 tablet (0.4 mg total) under the tongue every 5 (five) minutes as needed for Chest Pain. 1 tablet polyethylene glycol 17 GM/SCOOP powder Commonly known as: GLYCOLAX Take 17 g by mouth daily as needed (constipation). 17 g potassium chloride CR 20 MEQ tablet Commonly known as: KLOR-CON M Take 1 tablet (20 mEq total) by mouth daily. Last time this was given: Ask your nurse or doctor Signed by: Sandra Short Last time this was given: Ask your nurse or doctor 1 tablet vitamin B-12 1000 MCG tablet Commonly known as: CYANOCOBALAMIN Take 1 tablet (1,000 mcg total) by mouth daily. 1 tablet STOP taking these medications atorvastatin 80 MG tablet Commonly known as: LIPITOR magnesium oxide 400 (241.3 Mg) MG tablet Commonly known as: MAG-OX Replaced by: magnesium oxide 400 (240 Mg) MG tablet Follow up with PCP, ID Disposition: Return to SNF on IV abx Discharge diet: The patient is asked to make an attempt to improve diet and exercise patterns to aid in medical management of this problem. Patient instructions: Recommend puree diet, thin liquids by teaspoon or single cup drink only, no straw alternate solids/liquids, sit upright for all PO intake, and remain for 30 minutes after. continue monthly catheter exchanges at nursing facility Per infectious disease Dr. Hogan: Daptomycin 600 mg intravenous every 24 hour, anticipated stop dateJan2024. Recommend holding atorvastatin while on Daptomycin. Can resume after completion as long as liver enzymes are normal. Follow up labs : Labs to be done every THURSDAY while on IV antibitoics and to be faxed at [phone] and [phone] - CBC, CMP,CPK Follow up visit 2 to 3 weeks, with Dr. Hogan General instructions regarding how to prevent catheter associated urinary tract infections, daptomycin were printed and provided to patient at time of discharge. Code Status: Full Code Time Spent on Discharge >30 minutes Signed: MADI MAYNARD APRN This note was dictated with [employer] medical dictation software; misspellings, punctuation errors, omitted words or dictation variances may occur. Cosigned by Som Miller MD at 05/25/2024 3:35 PM RECORDS MANAGEMENT TECHNICIAN RDS MANAGEMENT TECHNICIAN RDS MANAGEMENT TECHNICIAN documented in this encounter Discharge Instructions * Discharge Instructions* Madi Maynard APRN - 05/24/2024 3:06 PM RECORDS MANAGEMENT TECHNICIAN Recommend puree diet, thin liquids by teaspoon or single cup drink only, no straw alternate solids/liquids, sit upright for all PO intake, and remain for 30 minutes after. continue monthly catheter exchanges at nursing facility Per infectious disease Dr. Hogan: Daptomycin 600 mg intravenous every 24 hour, anticipated stop dateJuly 01, 2024. Recommend holding atorvastatin while on Daptomycin. Can resume after completion as long as liver enzymes are normal. Follow up labs : Labs to be done every THURSDAY while on IV antibitoics and to be faxed at [phone] and [phone] - CBC, CMP,CPK Follow up visit 2 to 3 weeks, with Dr. Hogan RDS MANAGEMENT TECHNICIAN RDS MANAGEMENT TECHNICIAN RDS MANAGEMENT TECHNICIAN RDS MANAGEMENT TECHNICIAN * Attachments The following attachments cannot be sent through Care Everywhere. * How to Prevent Catheter Associated Urinary Tract Infections (Burmese) * Daptomycin, ADULT (Burmese) documented in this encounter Medications at Time [...] organism, unspecified whether acute organ dysfunction present ([facility]/H[facility]/HCC) Inject 600 mg into the vein daily [...] mouth daily. documented as of this encounter Progress Notes * Zamzam Bender, MAINTENANCE TEAM MEMBER - 05/25/2024 12:17 PM CST Patient to be discharged back to [facility], spoke with Sherri in admissions, she is agreeable, patient to be discharged after his Daptomycin IV dose today. I called patient's son and daughter, no answers, left voice mail to both. Report # provided to patient's nurse, EMS set up through [employer], pickup at [phone], nurse informed. PCS form completed and given to Process Control Specialist 05/25/24 2215 Discharge Planning Living Arrangements Other (Comment) (SNF) Support Systems Children;Caregiver staff Type of Residence group home Assistance Needed No Patient expects to be discharged to: [facility]( SNF) Insurance Authorization needed No Does the patient need discharge transport arranged? Yes Type of transportation needed? Ambulance Has discharge transport been arranged? Yes What day is the transport expected? 05/25/24 What time is the transport expected? 1530 IV Infusion at discharge Yes DME Needed at Discharge No RDS MANAGEMENT TECHNICIAN * Zamzam Bender MAINTENANCE TEAM MEMBER - 05/25/2024 12:14 PM CST Important Message from Medicare provided to patient/patient account executive sales representative. Education provided per voice mail to son and daughter. Patient/patient account executive sales representative provided copy of IMM and copy placed into chart for scanning. 05/25/24 1213 Forms Reinforcement Important Message from Medicare (Subsequent IMM) (Voice mail to son and daughter) RDS MANAGEMENT TECHNICIAN * CHAPLAIN Jean-Claude - 05/25/2024 10:42 AM CST Patient assessed for emotional/spiritual needs and well-being; role of Spiritual Care explained. Patient's Disposition/People present: Slow to respond/tired/alone in room Patient's support system: Children/caregiver Ep[employer]opalian Affiliation/Spiritual Background: None [x] Pastoral care visit found patient slow to speak, lethargic, and alone. Provided words of comfort/hope, empathy, Scripture encouragement, and prayer to offer spiritual care Follow up Needed: Criminology Professor will be available for ongoing support as needs arise Health care directive: Patient already have health care directive on file RDS MANAGEMENT TECHNICIAN * MERARI Ocampo MANAGER - 05/24/2024 3:22 PM CST 05/24 Spoke with Sherri in social services specialist at [facility] this afternoon, they can accommodate the IV Daptomycin but cannot accept back until tomorrow cw RDS MANAGEMENT TECHNICIAN * Zamzam Bender MAINTENANCE TEAM MEMBER - 05/24/2024 3:21 PM CST Continue IV antibiotics 05/24/24 1521 Interdisciplinary Group Conference Team Members Present Physician;Case/Care management;Nursing;PT/OT;Pharmacy Physician present for group conference Mansoor Lema Patient Current Status Paient current status Inpatient Barriers to Discharge Inpatient Review Barriers to Discharge Inpatient Administering IV meds Patient expects to be discharged to Patient expects to be discharged to: [facility]( SNF) RDS MANAGEMENT TECHNICIAN * Mansoor Lema MD - 05/24/2024 3:04 PM CST Hospitalist Daily Progress Note Patient: Avila Crocker (:1945) Room: [place] [id number] Date of admission: 05/16/2024 No of days in hospital: 8 Subjective Interval Hx: Pt had a PICC line placed. CXR for line placement showed a small area of focal infiltrate or atelectatic change. Due to concern for aspiration, MBS was done. Diet modified to puree diet, thin liquid.When I saw the patient this afternoon, he did not have any complaints. Plan to discharge back to the facility tomorrow on IV daptomycin as recommended by ID Objective Filed Vitals: 05/24/24 0040 05/24/24 0428 05/24/24 0733 05/24/24 1102 BP: 112/53 111/62 131/56 118/68 Pulse: 83 60 (!) 59 60 Resp: 16 18 16 Temp: 97.9 ??F (36.6 ??C) 97.9 ??F (36.6 ??C) TempSrc: Axillary Axillary Axillary SpO2: 100% 93% 96% 95% Weight: Height: Physical Exam: Gen: Alert, cooperative, confused at baseline Head: Normocephalic, without obvious abnormality, atraumatic Eyes: Conjunctivae/corneas clear, EOMI Nose: Mucosa normal. No drainage. Throat:Moist mucous membranes, Neck: trachea midline Resp: CTAB, no wheezes/rales/rhonchi CV: RRR, S1S2, No M/R/G Abd: S/NT/ND, BS+, no bruits Ext: No clubbing, cyanosis, edema Skin: Skin color, texture, turgor normal. No rashes or lesions Neuro: No focal deficits Intake/Output 24H Total: Intake/Output Summary (Last 24 hours) at 05/24/2024 1504 Last data filed at 05/24/2024 1008 Gross per 24 hour Intake 220 ml Output 1000 ml Net -780 ml Medication apixaban 5 mg Oral BID carvedilol 6.25 mg Oral BID [START ON 05/25/2024] DAPTOmycin 600 mg Intravenous Q24H dutasteride 0.5 mg Oral Daily furosemide 40 mg Oral Daily insulin lispro 0-14 Units Subcutaneous TID AC And insulin lispro 0-7 Units Subcutaneous Nightly at bedtime lisinopril 5 mg Oral Daily magnesium oxide 400 mg Oral BID PRN Meds: acetaminophen, pbixijrvz-nlcpnqwg-qmyihrgcxjq, ondansetron, polyethylene glycol Labs: Recent Labs Lab 05/18/24 1219 05/19/24 0510 05/20/24 0518 05/21/24 0428 05/22/24 0526 05/23/24 0515 05/24/24 0515 WBC 13.29* 12.25* 9.68 9.44 10.70 10.42 10.24 RBC 3.87* 3.71* 4.01* 3.99* 3.70* 3.70* 3.76* HGB 10.3* 9.9* 10.7* 10.5* 9.8* 9.9* 9.8* HCT 34.2* 31.7* 34.1* 34.2* 31.9* 31.9* 32.1* MCV 88.4 85.4 85.0 85.7 86.2 86.2 85.4 MCH 26.6* 26.7* 26.7* 26.3* 26.5* 26.8* 26.1* MCHC 30.1* 31.2* 31.4* 30.7* 30.7* 31.0* 30.5* PLT 187 195 208 180 194 196 236 RDW 15.9* 15.8* 15.7* 15.9* 16.0* 16.1* 16.1* MPV 11.6 11.1 10.8 11.6 10.8 10.8 11.3 PERNEU 84.5 85.6 80.4 79.6 77.1 79.2 81.8 PERLYM 10.3 8.5 11.8 10.3 12.9 13.1 13.4 PERMON 3.8 4.6 5.5 8.2 9.0 6.3 4.1 NEUC 11.24* 10.49* 7.78* 7.52 8.26* 8.26* 8.38* LYMC 1.37 1.04 1.14 0.97* 1.38 1.36 1.37 MONOC 0.51 0.56 0.53 0.77 0.96* 0.66 0.42 EOSC 0.06 0.08 0.15 0.10 0.03* 0.04 0.02* BASOC 0.02 0.03 0.03 0.02 0.03 0.03 0.01 DTYPE AUTOMATED DIFFERENTIAL AUTOMATED DIFFERENTIAL AUTOMATED DIFFERENTIAL AUTOMATED DIFFERENTIAL AUTOMATED DIFFERENTIAL AUTOMATED DIFFERENTIAL AUTOMATED DIFFERENTIAL Recent Labs Lab 05/18/24 1219 05/19/24 0510 05/20/24 0518 05/21/248 05/22/24 0526 05/23/24 0758 05/24/24 0515 NA 136 138 141 141 139 137 137 K 3.9 3.6 4.1 3.8 3.7 3.8 3.9 CL 106 106 109 108 107 106 104 CO2 24.4 28.3 27.8 27.9 27.4 26.5 29.4 AGAP 5.6 3.7 4.2 5.1 4.6 4.5 3.6 BUN 21* 16 16 18 21* 26* 28* CR 0.61* 0.46* 0.52* 0.63* 0.63* 0.59* 0.63* BUNCREATININ 34.7* 34.9* 30.6* 28.7* 33.2* 44.3* 44.4* GLU 200* 145* 150* 194* 171* 168* 174* CA 8.5 8.7 8.8 9.0 8.8 8.7 8.7 No results for input(s): CHOL , TRI , HDL , LDL , HGBA1C , TSH in the last 168 hours. No results for input(s): APTT , INR , PTT in the last 168 hours. Recent Labs Lab 05/21/2442705/23/24 0758 CPK 33* 49 No results for input(s): LACTICACID , PROCT in the last 168 hours. No results for input(s): PH , PCO2 , PO2 , Q0IWWGFIFYRU , BICARBWB , BASEDEFICIT , BASEEXCESS in the last 168 hours. Results for orders placed or performed during the hospital encounter of 02/17/23 URINALYSIS, AUTO, COMPLETE Collection Time: 02/17/23 10:00 AM Result Value Ref Range COLOR (U) LIGHT YELLOW TRANSPARENCY CLEAR SPECIFIC GRAVITY (U) 1.010 1.003 - 1.030 U PH 6.5 5.0 - 9.0 LEUKOCYTES (U) NEGATIVE NEGATIVE NITRITES NEGATIVE NEGATIVE PROTEIN RANDOM (U) NEGATIVE NEGATIVE GLUCOSE (U) NORMAL NORMAL KETONES MG/DL (U) NEGATIVE NEGATIVE UROBILINOGEN NORMAL NORMAL MG/DL BILIRUBIN (U) NEGATIVE NEGATIVE BLOOD (U) NEGATIVE NEGATIVE MUCUS PRESENT HYALINE CASTS 0-5 WBC/HPF 0-5 0 - 5 /HPF COMMENT (U) URINE RESULTS Imaging ECG 12 lead Result Date: 05/17/2024 [place] [address] [place] [address] Test Date: 2024-05-16 Pat Name: AVILA CROCKER Department: 3 Room: EXAM 5 Gender: Male Vehicle Insurance Agent: : [id number] Requested By: ROBERT WATKINS Order Number: [id number] Reading MD: Martin Blue Measurements Intervals [place] Rate: 70 P: NE: 0 QRS: 255 QRSD: 154 T: 86 QT: 400 QTc: 433 Interpretive Statements ELECTRONIC VENTRICULAR PACEMAKER ABNORMAL RHYTHM ECG RDS MANAGEMENT TECHNICIAN XR CHEST PORTABLE Result Date: 05/16/[address] [place] [address] Examination: XR CHEST PORTABLE Exam time: 05/16/2024 11:43 AM Clinical history: Chest pain, fever Comparison: 12/09/2023 Technique: AP chest Findings: Borderline heart size similar to previous study. Left subclavian transvenous pacerlead placements are unchanged. No pulmonary vascular congestion. There is no acute pulmonary parench ymal opacity. No pleural effusion. No hyperinflation. IMPRESSION: 1) No radiographic evidence of active disease the chest. Ordered By: ROBERT WATKINS Interpreted By: Flo Gardner MD, 05/16/2024 12:[address] ABD+PEL W IV CON ONLY Result Date: 05/09/2024 [facility] [address] [place] [address] INDICATION: Umbilical hernia, abdominal pain, concern for bowel obstruction COMPARISON: CT abdomen/pelvis, 09 Dec 2023 TECHNIQUE: CTimages of the abdomen and pelvis were obtained following the administration of IV contrast. Radiation dose reduction technique utilized. FINDINGS: Limited visualization of the lower thorax reveals noacute abnormality. Partially visualized cardiac pacemaker leads. Mild to moderate coronary atherosclerosis. Benign calcified pulmonary granulomata. 0.7 cm pulmonary nodule in the lingula, axial image11. Unchanged elevation of the right hemidiaphragm. Beam hardening artifact from upper extremitiessomewhat degrades evaluation of the upper abdomen. Limited assessment of the hepatic parenchyma. Gallbladder within normal limits. Main portal vein, splenic vein, SMV, and SMA enhance. Atherosclerosis of the abdominal and pelvic vasculature. No retroperitoneal lymphadenopathy. Moderate rectal stoolburden. Normal appearing appendix. Mural edema in the sigmoid colon suggests nonspecific colitis. Liquid present throughout the small bowel and colon, consistent with diarrheal state. Mucosal enhancement pattern in the proximal jejunum compatible with nonspecific enteritis. Additional focus of mural edema in a loop of small bowel in anterior abdominal wall, axial image 95, also compatible with ent eritis. Small bowel exhibits physiologic peristalsis. No evidence [...] 1. Findings compatible with nonspecific enteritis/colitis and diarrheal state. No evidence of bowel obstruction, as clinically queried. 2. Guerra catheter bulb appears in low lying position within the enlarged prostate. Recommend repositioning. 3. 1.4 cm hypoenhancing focus in the pancreatic tail. This could possibly represent benign focal fatty infiltration, though recommend nonemergent further evaluation with pancreatic protocol MRI to exclude cyst or mass. 4. Small fat-containing umbilical hernia without evidence of complication. 5. Mild anasarca, more pronounced inferiorly. 6. 0.7 cm pulmonary nodule in the lingula. Recommend follow-up chest CT in 6-12 months. 7. Other chronic/nonurgent findings, as above. Referred By: Interpreted By: Rj Mendoza MD, 05/09/2024 8:18 PM EKG: No results found for this visit on 05/16/24. Assessment/Plan: Hematuria Sepsis Bacteremia Patient admitted to the telemetry unit Evident with systemic inflammatory response with white count 13, fever 102.8F Source: , bacteremia Lactic acid 4.2, improved to 2.8 05/16 blood culture +gram positive cocci in clusters IV Rocephin/Vanc (05/16- ) WBC uptrending 13>23 ID consulted, appreciate recs 05/17 blood culture is positive again for staph 05/18 cont with Vanc, Ceftriaxone. WBC 13.29. plan for echo to check for IE. 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 Repeat blood culture tomorrow 05/19 Cont with IV ceftriaxone and Vanc for now. First culture 05/16 result is MSSA, awaiting 05/17culture and sensitivity. WBC 12.25 05/20 WBC 9.68. 05/17 culture showed MSSA. ID switched abx of daptomycin. Echo showed a small 0.7 cm. linear structure on ventricular aspect of anterior and also posterior mitral leaflets- cannot exclude vegetation (vs. part of chordal structure). Since then cont with daptomycin. Cardiology is consulted for a TATE. Discussed with card: negative blood culture, no compelling vegetation on review, thus will hold TEEfor now and will need to discuss with ID again for need for TATE 05/23 discussed with ID and Dr Hogan recommended to proceed with TATE. TATE did not show vegetation. ID is planning for PICC line, IV daptomycin q 24 hrs until Jul 01 2024. Labs to be done every THURSDAY while on IV antibitoics and to be faxed at [phone] and [phone]: CBC, CMP,CPK Follow up visits [address] to [address] Hogan Infectious endocarditis: ruled out See above for TTE, TATE and abx plan CAUTI Patient urine culture on 12/12/2023 showed PROVIDENCIA STUARTII susceptible to Rocephin Patient started on Rocephin, continue In ED hematuria was noted, currently urine looks clear Patient had a CT abdomen and pelvis on 05/09/2024 which recommended repositioning Guerra catheter asthe bulb was laying within the enlarged prostate Urology consulted. Recommends monitoring for gross hematuria. If this develops, replace Guerra with a 22Fr 3-way catheter (currently tamara urine). Otherwise, continue monthly catheter exchanges at nursing facility. No plan for inpatient urological intervention at this time 05/16/24 Urine culture GPC See above for abx changes A-fib On anticoagulation with Eliquis, will hold with drop in hemoglobin and monitoring for hematuria held BB for now with initial low BP 05/19 HR 50s, cont to hold BB 05/20 resumed BB, lasix and lisinopril. Urine appears clear and Hgb is stable, thus resumed eliquis Since then, cont with coreg and eliquis Mild-moderate oropharyngeal phase dysphagia 05/24 had MBS: Recommend puree diet, thin liquids by teaspoon or single cup drink only, no straw alternate solids/liquids, sit upright for all PO intake, and remain for 30 minutes after. Type 2 diabetes mellitus Holding metformin Accu-Cheks and insulin protocol Dyslipidemia Continue statin Anemia Hemoglobin 11 > 9 Baseline hgb 9-10 Hx of LISA Continue to monitor Transfuse hemoglobin <7 HTN Holding home meds with soft pressures initially Now resume coreg, lisinopril Hypomagnesemia Replace with IV mag Cardiomyopathy With recovered EF 55-60% on 07/27/2023 Resumed lasix, BB and ACEI Dementia Alert and oriented to self only - DVT prophylaxis: eliquis - Code status: full code 05/21 called family: no answers, left a message with updates on his son's phone 05/23 updated daughter about plan for TATE, obtained consent and had TATE. Updated his daughter about IV abx plan and result of the TATE MANSOOR LEMA MD 05/24/2024 3:04 PM RDS MANAGEMENT TECHNICIAN * Kamilla Padron, HERBOLOGIST - 05/24/2024 2:10 PM CST SPEECH THERAPY MODIFIED BARIUM SWALLOW Time in: 1325 Time out: 1347 Episode of Care: Initial evaluation Date of Onset: 05/16/24 Diagnosis: Hematuria Referring Physician: Dr Lema Past Medical History: Diagnosis Date A-fib (CMS/HCC HHS/HCC) BPH (benign prostatic hyperplasia) CHF (congestive heart failure) (CMS/HCC HHS/HCC) Coronary artery disease Dementia without behavioral disturbance (CMS/HCC HHS/HCC) Diabetes mellitus (CMS/HCC HHS/HCC) Disorder of prostate HLD (hyperlipidemia) Hyperlipidemia Hypertension Incarcerated hernia 05/09/2024 Reduced in ED Pacemaker 09/10/2022 Respiratory failure (CMS/HCC HHS/HCC) Sick sinus syndrome (CMS/HCC HHS/HCC) Urinary retention Subjective: The pt is seen this afternoon for MBS completion after clinical evaluation became complicated by new resting cough and congestions. Latest CXR also reveals new Rt base infiltrate and/or atelectasis. The pt has been on a level 6 soft/bite-sized solid diet, mildly thick liquids. Alertness this afternoon is similar to this morning - eyes closed most of the session, fairly talkative, but with nonsensical/confused language. The pt is transported to the radiology department via stretcher, placed upright and in lateral view. The pt is given trials of barium pudding, mildly thick liquid barium, thin liquid barium, and softsolid barium cracker. Dr Bianchi is the present radiologist for the evaluation. Objective: ORAL PHASE: The pt is edentulous with mastication of soft solids characterized by anterior mastication, tongue mashing, and attempt to expectorate. However, with directive and encouragement the pt does complete this trial without expectoration. The process is prolonged. Tongue pumping is noted throughout. Bolus control is mostly good with age-appropriate spillover to the valleculae. However, vallecular residue is noted to spill to the pyriforms. Palatal closure appears complete. PHARYNGEAL PHASE: Tongue base retraction is fair, laryngeal elevation/excursion is fair to poor, and epiglottic inversion is absent. Pharyngeal stripping wave is weakened and there is moderate-severepharyngeal residue mostly in the valleculae, but also noted in the pyriforms, base of tongue, and even posterior pharyngeal wall at times. Laryngeal vestibule closure is consistently complete, but the pt's level of residue increases aspiration risk. There is transient penetration of thin liquid residue and also penetration to the vocal cords with soft solid residue. Strategies attempted included cued double swallow (not effective) and liquid wash (minimally effective). UES appears to open adequa tely, but is difficult to fully assess as the pt has little material pass through at a time. Assessment: Mild-moderate oropharyngeal phase dysphagia characterized by tongue pumping, spillover of vallecular residue to the pyriforms, weakened tongue base retraction, weakened laryngeal elevation/excursion, absent epiglottic inversion, weakened pharyngeal stripping wave, significant pharyngealresidue that is cleared minimally with liquid wash. Only penetration to the vocal cords is noted with residue during soft solid trial. It should be noted that wet vocal quality is observed during thestudy at a time that was unrelated to any instance of penetration/aspiration. Therefore, this is anunreliable clinical indicator for this patient. Plan: Recommend puree diet, thin liquids by teaspoon or single cup drink only, no straw alternate solids/liquids, sit upright for all PO intake, and remain for [address] will follow-up in 1-2 business days to ensure diet tolerance and implementation of compensatory strategies. Communication completed with RN (Rubi), PCT (Nereida), and Dr Lema. Thank you for this referral. RDS MANAGEMENT TECHNICIAN * Rubi Navarro RN - 05/24/2024 11:54 AM CST Problem: Discharge Planning Goal: Knowledge of discharge instructions Outcome: Progressing Problem: Pain control/comfort Goal: Promote pain control/comfort Outcome: Progressing Problem: Skin integrity, Impaired-wound Goal: Absence of new skin breakdown Outcome: Progressing Goal: Evidence of wound healing Outcome: Progressing Problem: Skin integrity, Impaired-pressure injury/ulcer Goal: Absence of new skin breakdown Outcome: Progressing Goal: Evidence of pressure injury/ulcer healing Outcome: Progressing Problem: Skin integrity, at risk Goal: Absence of new skin breakdown Outcome: Progressing Problem: Moisture associated skin impairment Goal: Reduce moisture exposure Outcome: Progressing Goal: Evidence of wound healing Outcome: Progressing Goal: Evidence of pressure injury/ulcer healing Outcome: Progressing Goal: Absence of new skin breakdown Outcome: Progressing Problem: Infection - Risk of, Urinary Catheter-Associated Urinary Tract Infection Goal: Absence of Urinary Catheter Associated Urinary Tract (UTI) Infection Signs and Symptoms Outcome: Progressing Problem: Reduced risk for falls/injury Goal: Reduced Risk for Falls/Injury Outcome: Progressing Goal: Reduced Risk of Confusion (Acute vs Chronic) Outcome: Progressing Goal: Reduced Risk of Symptomatic Depression Outcome: Progressing Goal: Reduced Risk of Altered Elimination Outcome: Progressing Goal: Reduced Risk of Dizziness/Vertigo/Balance Outcome: Progressing Goal: Reduced Risk of Polypharmacy Outcome: Progressing Problem: Pain Goal: Patient's pain/discomfort is manageable Description: Assess and monitor patient's pain using appropriate pain scale. Collaborate with interdisciplinary team and initiate plan and interventions as ordered. Re-assess patient's pain level 30 - 60 minutes after pain management intervention. Outcome: Progressing Problem: Safety Goal: Patient will be injury free during hospitalization Description: Assess and monitor vitals signs, neurological status including level of consciousness and orientation. Assess patient's risk for falls and implement fall prevention plan of care and interventions per hospital policy. Ensure arm band on, uncluttered walking paths in room, adequate room lighting, call light and overbed table within reach, bed in low position, wheels locked, side rails up per policy, and non-skid footwear provided. Outcome: Progressing Problem: Daily Care Goal: Daily care needs are met Description: Assess and monitor ability to perform self care and identify potential discharge needs. Outcome: Progressing Problem: Psychosocial Needs Goal: Demonstrates ability to cope with hospitalization/illness Description: Assess and monitor patients ability to cope with his/her illness. Outcome: Progressing Goal: Collaborate with patient/family/caregiver to identify patient specific goals for this hospitalization Outcome: Progressing Problem: Discharge Barriers Goal: Patient's discharge needs are met Description: Collaborate with interdisciplinary team and initiate plans and interventions as needed. Outcome: Progressing Problem: Discharge Planning Goal: Knowledge of discharge instructions Outcome: Progressing Problem: Body Temperature - Risk of, Imbalanced Goal: Body temperature within specified parameters Outcome: Progressing Problem: Fluid Volume - Risk of, Imbalanced Goal: Absence of hypovolemia Outcome: Progressing Goal: Lactate, serum, within specified parameters Outcome: Progressing Goal: Procalciton within specified parameters Outcome: Progressing Problem: Gas Exchange - Impaired Goal: Absence of cyanosis signs and symptoms Outcome: Progressing Goal: Central or mixed venous oxygen saturation within specified parameters Outcome: Progressing Problem: Injury - Risk of, Abnormal Serum Glucose Level Goal: Glucose level within specified parameters Outcome: Progressing Problem: Infection - Risk of, Septic Shock Goal: Absence of infection signs and symptoms Outcome: Progressing Problem: Infection - Risk of, Ventilator-Associated Pneumonia Goal: Absence of pulmonary infection Outcome: Progressing Goal: Inspiratory plateau pressure within specified parameters Outcome: Progressing Problem: Mobility - Impaired Goal: Able to ambulate within specified parameters Outcome: Progressing Goal: Knowledge of need for increased mobility Outcome: Progressing Problem: Tissue Perfusion - Risk of, Altered Goal: Central venous pressure within specified parameters Outcome: Progressing Goal: Circulatory function, peripheral, within specified parameters Outcome: Progressing Goal: Normotensive Outcome: Progressing Problem: Venous Thromboembolism - Risk of Goal: Absence of venous thromboembolism Outcome: Progressing Problem: Discharge Planning Goal: Knowledge of discharge plan Outcome: Progressing Problem: Activity Intolerance Goal: Improved activity tolerance Outcome: Progressing Goal: Able to perform prescribed physical activity Outcome: Progressing Problem: Anxiety Goal: Alleviation of anxiety Outcome: Progressing Problem: Pain - Acute Goal: Achieve acceptable pain level Outcome: Progressing Problem: Tissue Perfusion - Cardiopulmonary, Altered Goal: Absence of chest pain Outcome: Progressing RDS MANAGEMENT TECHNICIAN * KIKE Lawrence - 05/24/2024 11:13 AM CST 05/24/24 1055 Therapy Visit Subjective The pt is seen this morning for a clinical swallow follow-up. Upon arrival, the pt is resting, does speak throughout, but mostly nonsensical and confused language. The pt is active, but keeps his eyes closed. The pt has been on a level 6 soft/bite-sized solid diet, mildly thick liquids. Thin liquids by large-mouthed straw are noted at the bedside. Whiteboard is noted to have the correct diet recs. The pt only correctly answers orientation questions for the current year. Inpatient HERBOLOGIST Time Calculation HERBOLOGIST Start Time 1035 HERBOLOGIST Stop Time 1053 HERBOLOGIST Time Calculation (min) 18 min Precautions PPE Used Gloves Pain Pain Patient does not demonstrate pain behaviors Bedside Swallow Therapeutic solid trials Level 4 Puree;Level 6 Soft and bite-sized Therapeutic liquid trials Level 0 Thin;Level 2 Mildly thick Therapeutic trials comment ORAL PHASE: The pt has no dentition, and is not cooperative for denture placement. Mastication of soft solids appears fairly thorough. There is no excessive intraoral residue and no significant anterior loss. The pt does not always readily accept PO trials, requiring min-mod tactile and verbal cues to accept. The pt becomes agitated with mildly thick water trials, stating I hate that! PHARYNGEAL PHASE: Swallow triggers in 8-10 seconds for solids, timely for liquids.Laryngeal elevation is present by palpation, but suspect decreased in overall movement. The pt displays an intermittent wet vocal quality with resting cough and possibly reflexive cough after 1/2 icecips, 1/2 puree, 1/2 thin by teaspoon, and 1/2 mildly thick by teaspoon. There is also questionableweak throat clearing throughout. Swallowing impressions/assessment Clinical evaluation is complicated by new wet resting vocal quality and new deep chest congestion with new cough. CXR completed overnight does reveal new minimal Rt base infiltrate vs atelectasis. Plan HERBOLOGIST Plan for Next Session Recommend MBS completion this afternoon to establish safest PO diet recommendations. Order received and time established for 1330 study. RN (Rubi), PCT (Nereida), and Dr Lema are aware. RDS MANAGEMENT TECHNICIAN * Rashmi Mckeon RN - 05/24/2024 12:35 AM CSTSummary: PICC Insertion PICC Placement Order Details: Order received for PICC placement. Chart reviewed. Indication for insertion: IV daptomycin outpatient . Order verified with JACOB Guzman. Time Out: Time out performed with JACOB Guzman. Patient???s name, date of , and armband verified. Consent obtained and documented in the chart. Ultrasound Examination: Upper arm vasculature examined at the bedside via ultrasound. No signs or symptoms of thrombosis (e.g., swelling, redness, pain, echogenicities) noted in the extremity where the PICC was inserted. The largest vessel suitable for PICC placement was utilized; the vessel was non-pulsatile and easily compressible. CVR 25 %. The patient was encouraged to move the arm with the PICC to promote circulation and prevent thrombus formation. Aseptic Technique: Aseptic technique was strictly followed: hand hygiene performed, sterile gown, sterile gloves, mask, goggles, cap, sterile probe cover, and large sterile drape used. The site was prepped with chlorhexidine scrub and allowed to dry completely prior to the first skin puncture. Local Anesthetic: Lidocaine 1%, 3 mL administered subcutaneously to the insertion site prior to insertion. Ultrasoundutilized with One attempt(s) to the right basilic vein and/or zero attempt(s) to the left arm veins. Cannulation Procedure: Cannulation of the vessel was confirmed through direct visualization of the needle tip within the target vessel. The guidewire was advanced through the needle without issues, and the needle was removed intact. The introducer/dilator was placed over the wire, and the guidewire was removed; it was inspected and confirmed to be completely intact. Catheter Placement: The PICC was trimmed to the documented length and advanced into the SVC without issues. unable to obtain maximum P-wave amplitude without deflection on the 3CG. Exposed catheter: 0 cm hany. Catheter Verification: Tip verified in the superior vena cava per protocol via Xray. Line confirmed to be safe and ok for use. Dressing and Stabilization: A skin barrier was applied, and the PICC line was secured with a StatLock stabilization device. A transparent dressing with CHG was applied. Blood return was obtained, and each lumen was flushed without resistance; Curos caps were applied to the needleless connectors. Complications: Detail of complication: N/A. Post-Procedure Instructions: If the insertion site begins to bleed or leak, apply a small pressure dressing over the site for 20minutes or until bleeding stops. If necessary, change the dressing and StatLock if blood extends beyond the CHG gel/disc coverage area 24 hours post-insertion. StatSeal or QuikClot may be applied before placing a new dressing. If StatSeal is utilized, hold pressure over the insertion site for 5- 10 minutes before re-dressing to ensure coagulation at the site. Patient Response: Patient response: Well. Safety Check: Safety check complete; bed in low locked position with side rails up x 3. Call light and susie reach. JACOB Guzman updated. RDS MANAGEMENT TECHNICIAN * Mansoor Lema MD - 05/23/2024 3:20 PM CST Hospitalist Daily Progress Note Patient: Avila Crocker (:1945) Room: [place] [address] Date of admission: 05/16/2024 No of days in hospital: 7 Subjective Interval Hx: Discussed and updated his daughter this morning. She consented for the ATTE. TATE did not show vegetation. ID is planning for PICC line, IV daptomycin q 24 hrs until Jul 01 2024. Pt was seen post TATE. He did not have complaints. He is at baseline. Updated his daughter about theTEE and IV abx plan Objective Filed Vitals: 05/23/24 0516 05/23/24 0741 05/23/24 1120 05/23/24 1455 BP: 124/65 128/60 121/64 105/63 Pulse: 60 60 62 Resp: Temp: 99.2 ??F (37.3 ??C) 99.1 ??F (37.3 ??C) TempSrc: Axillary Axillary SpO2: 95% 99% 95% 92% Weight: Height: Physical Exam: Gen: Alert, cooperative, confused at baseline Head: Normocephalic, without obvious abnormality, atraumatic Eyes: Conjunctivae/corneas clear, EOMI Nose: Mucosa normal. No drainage. Throat:Moist mucous membranes, Neck: trachea midline Resp: CTAB, no wheezes/rales/rhonchi CV: RRR, S1S2, No M/R/G Abd: S/NT/ND, BS+, no bruits Ext: No clubbing, cyanosis, edema Skin: Skin color, texture, turgor normal. No rashes or lesions Neuro: No focal deficits Intake/Output 24H Total: Intake/Output Summary (Last 24 hours) at 05/23/2024 1520 Last data filed at 05/23/2024 1333 Gross per 24 hour Intake 120 ml Output 500 ml Net -380 ml Medication apixaban 5 mg Oral BID atorvastatin 80 mg Oral Nightly at bedtime carvedilol 6.25 mg Oral BID DAPTOmycin 10 mg/kg (Adjusted) Intravenous Q24H dutasteride 0.5 mg Oral Daily furosemide 40 mg Oral Daily insulin lispro 0-14 Units Subcutaneous TID AC And insulin lispro 0-7 Units Subcutaneous Nightly at bedtime lisinopril 5 mg Oral Daily magnesium oxide 400 mg Oral BID lactated ringers PRN Meds: acetaminophen, zjonlzmxb-rhvjvbtg-rumswuhswyd, ondansetron, polyethylene glycol Labs: Recent Labs Lab 05/17/24 0610 05/18/24 1219 05/19/24 0510 05/20/24 0518 05/21/24 0428 05/22/24 0526 05/23/24 0515 WBC 23.38* 13.29* 12.25* 9.68 9.44 10.70 10.42 RBC 3.38* 3.87* 3.71* 4.01* 3.99* 3.70* 3.70* HGB 9.1* 10.3* 9.9* 10.7* 10.5* 9.8* 9.9* HCT 29.4* 34.2* 31.7* 34.1* 34.2* 31.9* 31.9* MCV 87.0 88.4 85.4 85.0 85.7 86.2 86.2 MCH 26.9* 26.6* 26.7* 26.7* 26.3* 26.5* 26.8* MCHC 31.0* 30.1* 31.2* 31.4* 30.7* 30.7* 31.0* PLT 169 187 195 208 180 194 196 RDW 16.4* 15.9* 15.8* 15.7* 15.9* 16.0* 16.1* MPV 10.3 11.6 11.1 10.8 11.6 10.8 10.8 PERNEU -- 84.5 85.6 80.4 79.6 77.1 79.2 PERLYM -- 10.3 8.5 11.8 10.3 12.9 13.1 PERMON -- 3.8 4.6 5.5 8.2 9.0 6.3 NEUC 21.74* 11.24* 10.49* 7.78* 7.52 8.26* 8.26* LYMC 0.70* 1.37 1.04 1.14 0.97* 1.38 1.36 MONOC 0.94* 0.51 0.56 0.53 0.77 0.96* 0.66 EOSC -- 0.06 0.08 0.15 0.10 0.03* 0.04 BASOC -- 0.02 0.03 0.03 0.02 0.03 0.03 DTYPE MANUAL DIFFERENTIAL AUTOMATED DIFFERENTIAL AUTOMATED DIFFERENTIAL AUTOMATED DIFFERENTIAL AUTOMATED DIFFERENTIAL AUTOMATED DIFFERENTIAL AUTOMATED DIFFERENTIAL Recent Labs Lab 05/17/24 0610 05/18/24 1219 05/19/24 0510 05/20/24 0518 05/21/24 0428 05/22/24 0526 05/23/24 0758 NA 135* 136 138 141 141 139 137 K 3.7 3.9 3.6 4.1 3.8 3.7 3.8 CL 104 106 106 109 108 107 106 CO2 27.0 24.4 28.3 27.8 27.9 27.4 26.5 AGAP 4.0 5.6 3.7 4.2 5.1 4.6 4.5 BUN 28* 21* 16 16 18 21* 26* CR 0.89 0.61* 0.46* 0.52* 0.63* 0.63* 0.59* BUNCREATININ 31.3* 34.7* 34.9* 30.6* 28.7* 33.2* 44.3* GLU 199* 200* 145* 150* 194* 171* 168* CA 8.1* 8.5 8.7 8.8 9.0 8.8 8.7 Recent Labs Lab 05/17/24 0610 HGBA1C 7.7* TSH 2.810 Recent Labs Lab 05/17/24 0610 INR 1.6 Recent Labs Lab 05/17/24 0610 05/21/24 0428 05/23/24 0758 TROP 50 -- -- CPK -- 33* 49 Recent Labs Lab 05/16/24 1545 LACTICACID 2.8* No results for input(s): PH , PCO2 , PO2 , [id number] , BICARBWB , BASEDEFICIT , BASEEXCESS in the last 168 hours. Results for orders placed or performed during the hospital encounter of 02/17/23 URINALYSIS, AUTO, COMPLETE Collection Time: 02/17/23 10:00 AM Result Value Ref Range COLOR (U) LIGHT YELLOW TRANSPARENCY CLEAR SPECIFIC GRAVITY (U) 1.010 1.003 - 1.030 U PH 6.5 5.0 - 9.0 LEUKOCYTES (U) NEGATIVE NEGATIVE NITRITES NEGATIVE NEGATIVE PROTEIN RANDOM (U) NEGATIVE NEGATIVE GLUCOSE (U) NORMAL NORMAL KETONES MG/DL (U) NEGATIVE NEGATIVE UROBILINOGEN NORMAL NORMAL MG/DL BILIRUBIN (U) NEGATIVE NEGATIVE BLOOD (U) NEGATIVE NEGATIVE MUCUS PRESENT HYALINE CASTS 0-5 WBC/HPF 0-5 0 - 5 /HPF COMMENT (U) URINE RESULTS Imaging ECG 12 lead Result Date: 05/17/[address] [place] [address] Test Date: 2024-05-16 Pat Name: AVILA CROCKER Department: 3 Room: EXAM 5 Gender: Male Vehicle Insurance Agent: : [id number] Requested By: ROBERT WATKINS Order Number: [id number] Reading MD: Martin Blue Measurements Intervals [place] Rate: 70 P: NE: 0 QRS: 255 QRSD: 154 T: 86 QT: 400 QTc: 433 Interpretive Statements ELECTRONIC VENTRICULAR PACEMAKER ABNORMAL RHYTHM ECG RDS MANAGEMENT TECHNICIAN XR CHEST PORTABLE Result Date: 05/16/[address] [place] [address] Examination: XR CHEST PORTABLE Exam time: 05/16/2024 11:43 AM Clinical history: Chest pain, fever Comparison: 12/09/2023 Technique: AP chest Findings: Borderline heart size similar to previous study. Left subclavian transvenous pacerlead placements are unchanged. No pulmonary vascular congestion. There is no acute pulmonary parench ymal opacity. No pleural effusion. No hyperinflation. IMPRESSION: 1) No radiographic evidence of active disease the chest. Ordered By: ROBERT WATKINS Interpreted By: Flo Gardner MD, 05/16/2024 12:[address] ABD+PEL W IV CON ONLY Result Date: 05/09/[address] [place] [address] INDICATION: Umbilical hernia, abdominal pain, concern for bowel obstruction COMPARISON: CT abdomen/pelvis, 09 Dec 2023 TECHNIQUE: CTimages of the abdomen and pelvis were obtained following the administration of IV contrast. Radiation dose reduction technique utilized. FINDINGS: Limited visualization of the lower thorax reveals noacute abnormality. Partially visualized cardiac pacemaker leads. Mild to moderate coronary atherosclerosis. Benign calcified pulmonary granulomata. 0.7 cm pulmonary nodule in the lingula, axial image11. Unchanged elevation of the right hemidiaphragm. Beam hardening artifact from upper extremities somewhat degrades evaluation of the upper abdomen. Limited assessment of the hepatic parenchyma. Gallbladder within normal limits. Main portal vein, splenic vein, SMV, and SMA enhance. Atherosclerosisof the abdominal and pelvic vasculature. No retroperitoneal lymphadenopathy. Moderate rectal stool burden. Normal appearing appendix. Mural edema in the sigmoid colon suggests nonspecific colitis. Liquid present throughout the small bowel and colon, consistent with diarrheal state. Mucosal enhancement pattern in the proximal jejunum compatible with nonspecific enteritis. Additional focus of muraledema in a loop of small bowel in [...] 1. Findings compatible with nonspecific enteritis/colitis and diarrheal state. No evidence of bowel obstruction, as clinically queried. 2. Guerra catheter bulb appears in low lying position within the enlarged prostate. Recommend repositioning. 3. 1.4 cm hypoenhancing focus in the pancreatic tail. This could possibly represent benign focal fatty infiltration, though recommend nonemergent further evaluation with pancreatic protocol MRI to exclude cyst or mass. 4. Small fat-containing umbilical hernia without evidence of complication. 5. Mild anasarca, more pronounced inferiorly. 6. 0.7 cm pulmonary nodule in the lingula. Recommend follow-up chest CT in 6-12 months. 7. Other chronic/nonurgent findings, as above. Referred By: Interpreted By: Rj Mendoza MD, 05/09/2024 8:18 PM EKG: No results found for this visit on 05/16/24. Assessment/Plan: Hematuria Sepsis Bacteremia Patient admitted to the telemetry unit Evident with systemic inflammatory response with white count 13, fever 102.8F Source: , bacteremia Lactic acid 4.2, improved to 2.8 05/16 blood culture +gram positive cocci in clusters IV Rocephin/Vanc (05/16- ) WBC uptrending 13>23 ID consulted, appreciate recs 05/17 blood culture is positive again for staph 05/18 cont with Vanc, Ceftriaxone. WBC 13.29. plan for echo to check for IE. 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 Repeat blood culture tomorrow 05/19 Cont with IV ceftriaxone and Vanc for now. First culture 05/16 result is MSSA, awaiting 05/17culture and sensitivity. WBC 12.25 05/20 WBC 9.68. 05/17 culture showed MSSA. ID switched abx of daptomycin. Echo showed a small 0.7 cm. linear structure on ventricular aspect of anterior and also posterior mitral leaflets- cannot exclude vegetation (vs. part of chordal structure). Since then cont with daptomycin. LOT per ID. Cardiology is consulted for a TATE. Discussed with card: negative blood culture, no compelling vegetation on review, thus will hold TEEfor now and will need to discuss with ID again for need for TATE 05/23 discussed with ID and Dr Hogan recommended to proceed with TATE. TATE did not show vegetation. ID is planning for PICC line, IV daptomycin q 24 hrs until Jul 01 2024. Labs to be done every THURSDAY while on IV antibitoics and to be faxed at [phone] and [phone]: CBC, CMP,CPK Follow up visits [address] to [address] Hogan Infectious endocarditis: ruled out See above for TTE, TATE and abx plan CAUTI Patient urine culture on 12/12/2023 showed PROVIDENCIA STUARTII susceptible to Rocephin Patient started on Rocephin, continue In ED hematuria was noted, currently urine looks clear Patient had a CT abdomen and pelvis on 05/09/2024 which recommended repositioning Guerra catheter asthe bulb was laying within the enlarged prostate, will clarify when was the last time the Guerra wasexchanged Urology consulted. Recommends monitoring for gross hematuria. If this develops, replace Guerra with a 22Fr 3-way catheter (currently tamara urine). Otherwise, continue monthly catheter exchanges at nursing facility. No plan for inpatient urological intervention at this time 05/16/24 Urine culture [facility] See above for abx changes A-fib On anticoagulation with Eliquis, will hold with drop in hemoglobin and monitoring for hematuria held BB for now with initial low BP 05/19 HR 50s, cont to hold BB 05/20 resumed BB, lasix and lisinopril. Urine appears clear and Hgb is stable, thus resumed eliquis Since then, cont with coreg and eliquis Type 2 diabetes mellitus Holding metformin Accu-Cheks and insulin protocol Dyslipidemia Continue statin Anemia Hemoglobin 11 > 9 Baseline hgb 9-10 Hx of LISA Continue to monitor Transfuse hemoglobin <7 HTN Holding home meds with soft pressures initially Now resume coreg, lisinopril Hypomagnesemia Replace with IV mag Cardiomyopathy With recovered EF 55-60% on 07/27/2023 Resumed lasix, BB and ACEI Dementia Alert and oriented to self only - DVT prophylaxis: eliquis - Code status: full code 05/21 called family: no answers, left a message with updates on his son's phone 05/23 updated daughter about plan for TATE, obtained consent and had TATE. Updated his daughter about IV abx plan and result of the TATE MANSOOR LEMA MD 05/23/2024 3:20 PM RDS MANAGEMENT TECHNICIAN * Zamzam Bender, MAINTENANCE TEAM MEMBER - 05/23/2024 3:08 PM CST 05/23 TATE completed today, continues on IV antibiotics Call placed to patient's SNF, [facility], left voice mail with Sherri in social services specialist about patient needing IV Daptomycin q 24 at discharge.cw RDS MANAGEMENT TECHNICIAN RDS MANAGEMENT TECHNICIAN * Zamzam Bender MAINTENANCE TEAM MEMBER - 05/23/2024 3:08 PM CST TATE completed today, continues on IV antibiotics 05/23/24 1507 Interdisciplinary Group Conference Team Members Present Physician;Case/Care management;Nursing;PT/OT;Pharmacy Physician present for group conference Mansoor Lema Patient Current Status Paient current status Inpatient Barriers to Discharge Inpatient Review Barriers to Discharge Inpatient Administering IV meds Administering IV meds follow up IV antibiotics Other follow up (Comment) TATE completed today Patient expects to be discharged to Patient expects to be discharged to: [facility]( SNF) RDS MANAGEMENT TECHNICIAN * Tonya Gaona RN - 05/23/2024 11:02 AM CSTSummary: care plan Problem: Discharge Planning Goal: Knowledge of discharge instructions Outcome: Progressing Problem: Pain control/comfort Goal: Promote pain control/comfort Outcome: Progressing Problem: Skin integrity, Impaired-wound Goal: Absence of new skin breakdown Outcome: Progressing Goal: Evidence of wound healing Outcome: Progressing RDS MANAGEMENT TECHNICIAN * Mansoor Lema MD - 05/22/2024 11:45 AM CST Hospitalist Daily Progress Note Patient: Avila Crocker (:1945) Room: [place] [address] Date of admission: 05/16/2024 No of days in hospital: 6 Subjective Interval Hx: Pt is at baseline. He was resting when I saw him. He woke up; did not voice any complaints. Discussed with card: negative blood culture, no compelling vegetation on review, thus will hold TATE for nowand will need to discuss with ID again on Thursday for need for TATE Objective Filed Vitals: 05/22/24 0102 05/22/24 0456 05/22/24 0752 05/22/24 1103 BP: 106/64 100/57 121/70 130/67 Pulse: 60 60 63 (!) 59 Resp: 10 06 12 Temp: 98.4 ??F (36.9 ??C) 98.8 ??F (37.1 ??C) 98.2 ??F (36.8 ??C) 98.4 ??F (36.9 ??C) TempSrc: Axillary Axillary Oral Oral SpO2: 98% 99% 96% 94% Weight: Height: Physical Exam: Gen: Alert, cooperative, confused at baseline mentation Head: Normocephalic, without obvious abnormality, atraumatic Eyes: Conjunctivae/corneas clear, EOMI Nose: Mucosa normal. No drainage. Throat:Moist mucous membranes, Neck: trachea midline Resp: CTAB, no wheezes/rales/rhonchi CV: RRR, S1S2, No M/R/G Abd: S/NT/ND, BS+, no bruits Ext: No clubbing, cyanosis, edema Skin: Skin color, texture, turgor normal. No rashes or lesions Neuro: No focal deficits Intake/Output 24H Total: Intake/Output Summary (Last 24 hours) at 05/22/2024 1146 Last data filed at 05/22/2024 0500 Gross per 24 hour Intake 780 ml Output 375 ml Net 405 ml Medication apixaban 5 mg Oral BID atorvastatin 80 mg Oral Nightly at bedtime carvedilol 6.25 mg Oral BID DAPTOmycin 10 mg/kg (Adjusted) Intravenous Q24H dutasteride 0.5 mg Oral Daily furosemide 40 mg Oral Daily insulin lispro 0-14 Units Subcutaneous TID AC And insulin lispro 0-7 Units Subcutaneous Nightly at bedtime lisinopril 5 mg Oral Daily magnesium oxide 400 mg Oral BID PRN Meds: acetaminophen, tlbbhjrud-rukxzzno-qscmqaacrem, ondansetron, polyethylene glycol Labs: Recent Labs Lab 05/16/24 1133 05/17/24 0610 05/18/24 1219 05/19/24 0510 05/20/24 0518 05/21/24 0428 05/22/24 0526 WBC 13.44* 23.38* 13.29* 12.25* 9.68 9.44 10.70 RBC 4.14* 3.38* 3.87* 3.71* 4.01* 3.99* 3.70* HGB 11.0* 9.1* 10.3* 9.9* 10.7* 10.5* 9.8* HCT 36.0* 29.4* 34.2* 31.7* 34.1* 34.2* 31.9* MCV 87.0 87.0 88.4 85.4 85.0 85.7 86.2 MCH 26.6* 26.9* 26.6* 26.7* 26.7* 26.3* 26.5* MCHC 30.6* 31.0* 30.1* 31.2* 31.4* 30.7* 30.7* PLT 256 169 187 195 208 180 194 RDW 15.9* 16.4* 15.9* 15.8* 15.7* 15.9* 16.0* MPV 10.0 10.3 11.6 11.1 10.8 11.6 10.8 PERNEU 93.7 -- 84.5 85.6 80.4 79.6 77.1 PERLYM 4.7 -- 10.3 8.5 11.8 10.3 12.9 PERMON 0.6 -- 3.8 4.6 5.5 8.2 9.0 PEREOS 0.4 -- -- -- -- -- -- PERBASO 0.1 -- -- -- -- -- -- NEUC 12.59* 21.74* 11.24* 10.49* 7.78* 7.52 8.26* LYMC 0.63* 0.70* 1.37 1.04 1.14 0.97* 1.38 MONOC 0.08 0.94* 0.51 0.56 0.53 0.77 0.96* EOSC 0.06 -- 0.06 0.08 0.15 0.10 0.03* BASOC 0.01 -- 0.02 0.03 0.03 0.02 0.03 DTYPE -- MANUAL DIFFERENTIAL AUTOMATED DIFFERENTIAL AUTOMATED DIFFERENTIAL AUTOMATED DIFFERENTIAL AUTOMATED DIFFERENTIAL AUTOMATED DIFFERENTIAL Recent Labs Lab 05/16/24 1133 05/17/24 0610 05/18/24 1219 05/19/24 0510 05/20/24 0518 05/21/24 0428 05/22/24 0526 NA 141 135* 136 138 141 141 139 K 4.7 3.7 3.9 3.6 4.1 3.8 3.7 CL 102 104 106 106 109 108 107 CO2 30.3 27.0 24.4 28.3 27.8 27.9 27.4 AGAP 8.7 4.0 5.6 3.7 4.2 5.1 4.6 BUN 20 28* 21* 16 16 18 21* CR 0.84 0.89 0.61* 0.46* 0.52* 0.63* 0.63* BUNCREATININ -- 31.3* 34.7* 34.9* 30.6* 28.7* 33.2* GLU 167* 199* 200* 145* 150* 194* 171* CA 8.9 8.1* 8.5 8.7 8.8 9.0 8.8 TP 7.6 -- -- -- -- -- -- ALB 2.9* -- -- -- -- -- -- TBIL 0.8 -- -- -- -- -- -- ALKP 97 -- -- -- -- -- -- AST 14* -- -- -- -- -- -- ALT 16 -- -- -- -- -- -- Recent Labs Lab 05/17/24 0610 HGBA1C 7.7* TSH 2.810 Recent Labs Lab 05/17/24 0610 INR 1.6 Recent Labs Lab 05/16/24 1133 05/17/24 0610 05/21/24 0428 TROP 27 50 -- CPK -- -- 33* Recent Labs Lab 05/16/24 1133 05/16/24 1333 05/16/24 1545 LACTICACID 4.2* 3.3* 2.8* No results for input(s): PH , PCO2 , PO2 , [id number] , BICARBWB , BASEDEFICIT , BASEEXCESS in the last 168 hours. Results for orders placed or performed during the hospital encounter of 02/17/23 URINALYSIS, AUTO, COMPLETE Collection Time: 02/17/23 10:00 AM Result Value Ref Range COLOR (U) LIGHT YELLOW TRANSPARENCY CLEAR SPECIFIC GRAVITY (U) 1.010 1.003 - 1.030 U PH 6.5 5.0 - 9.0 LEUKOCYTES (U) NEGATIVE NEGATIVE NITRITES NEGATIVE NEGATIVE PROTEIN RANDOM (U) NEGATIVE NEGATIVE GLUCOSE (U) NORMAL NORMAL KETONES MG/DL (U) NEGATIVE NEGATIVE UROBILINOGEN NORMAL NORMAL MG/DL BILIRUBIN (U) NEGATIVE NEGATIVE BLOOD (U) NEGATIVE NEGATIVE MUCUS PRESENT HYALINE CASTS 0-5 WBC/HPF 0-5 0 - 5 /HPF COMMENT (U) URINE RESULTS Imaging ECG 12 lead Result Date: 05/17/[address] [place] [address] Test Date: 2024-05-16 Pat Name: AVILA CROCKER Department: 3 Room: EXAM 5 Gender: Male Vehicle Insurance Agent: : [id number] Requested By: ROBERT WATKINS Order Number: [id number] Reading MD: Martin Blue Measurements Intervals [place] Rate: 70 P: NE: 0 QRS: 255 QRSD: 154 T: 86 QT: 400 QTc: 433 Interpretive Statements ELECTRONIC VENTRICULAR PACEMAKER ABNORMAL RHYTHM ECG RDS MANAGEMENT TECHNICIAN XR CHEST PORTABLE Result Date: 05/16/[address] [place] [address] Examination: XR CHEST PORTABLE Exam time: 05/16/2024 11:43 AM Clinical history: Chest pain, fever Comparison: 12/09/2023 Technique: AP chest Findings: Borderline heart size similar to previous study. Left subclavian transvenous pacerlead placements are unchanged. No pulmonary vascular congestion. There is no acute pulmonary parench ymal opacity. No pleural effusion. No hyperinflation. IMPRESSION: 1) No radiographic evidence of active disease the chest. Ordered By: ROBERT WATKINS Interpreted By: Flo Gardner MD, 05/16/2024 12:[address] ABD+PEL W IV CON ONLY Result Date: 05/09/2024 [facility] [address] [place] [address] INDICATION: Umbilical hernia, abdominal pain, concern for bowel obstruction COMPARISON: CT abdomen/pelvis, 09 Dec 2023 TECHNIQUE: CTimages of the abdomen and pelvis were obtained following the administration of IV contrast. Radiation dose reduction technique utilized. FINDINGS: Limited visualization of the lower thorax reveals noacute abnormality. Partially visualized cardiac pacemaker leads. Mild to moderate coronary atherosclerosis. Benign calcified pulmonary granulomata. 0.7 cm pulmonary nodule in the lingula, axial image11. Unchanged elevation of the right hemidiaphragm. Beam hardening artifact from upper extremities somewhat degrades evaluation of the upper abdomen. Limited assessment of the hepatic parenchyma. Gallbladder within normal limits. Main portal vein, splenic vein, SMV, and SMA enhance. Atherosclerosisof the abdominal and pelvic vasculature. No retroperitoneal lymphadenopathy. Moderate rectal stool burden. Normal appearing appendix. Mural edema in the sigmoid colon suggests nonspecific colitis. Liquid present throughout the small bowel and colon, consistent with diarrheal state. Mucosal enhancement pattern in the proximal jejunum compatible with nonspecific enteritis. Additional focus of muraledema in a loop of small bowel in [...] 1. Findings compatible with nonspecific enteritis/colitis and diarrheal state. No evidence of bowel obstruction, as clinically queried. 2. Guerra catheter bulb appears in low lying position within the enlarged prostate. Recommend repositioning. 3. 1.4 cm hypoenhancing focus in the pancreatic tail. This could possibly represent benign focal fatty infiltration, though recommend nonemergent further evaluation with pancreatic protocol MRI to exclude cyst or mass. 4. Small fat-containing umbilical hernia without evidence of complication. 5. Mild anasarca, more pronounced inferiorly. 6. 0.7 cm pulmonary nodule in the lingula. Recommend follow-up chest CT in 6-12 months. 7. Other chronic/nonurgent findings, as above. Referred By: Interpreted By: jR Mendoza MD, 05/09/2024 8:18 PM EKG: No results found for this visit on 05/16/24. Assessment/Plan: Hematuria Sepsis Bacteremia Patient admitted to the telemetry unit Evident with systemic inflammatory response with white count 13, fever 102.8F Source: , bacteremia Lactic acid 4.2, improved to 2.8 05/16 blood culture +gram positive cocci in clusters IV Rocephin/Vanc (05/16- ) WBC uptrending 13>23 ID consulted, appreciate recs 05/17 blood culture is positive again for staph 05/18 cont with Vanc, Ceftriaxone. WBC 13.29. plan for echo to check for IE. 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 Repeat blood culture tomorrow 05/19 Cont with IV ceftriaxone and Vanc for now. First culture 05/16 result is MSSA, awaiting 05/17culture and sensitivity. WBC 12.25 05/20 WBC 9.68. 05/17 culture showed MSSA. ID switched abx of daptomycin. Echo showed a small 0.7 cm. linear structure on ventricular aspect of anterior and also posterior mitral leaflets- cannot exclude vegetation (vs. part of chordal structure). Since then cont with daptomycin. LOT per ID. Cardiology is consulted for a TATE. Discussed with card: negative blood culture, no compelling vegetation on review, thus will hold TEEfor now and will need to discuss with ID again for need for TATE ?Infectious endocarditis 05/20 Echo showed a small 0.7 cm. linear structure on ventricular aspect of anterior and also posterior mitral leaflets- cannot exclude vegetation (vs. part of chordal structure). Since then cont with daptomycin. LOT per ID. Cardiology is consulted for a TATE. 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 Recommends monitoring for gross hematuria. If this develops, replace Guerra with a 22Fr 3-way catheter (currently tamara urine). Otherwise, continue monthly catheter exchanges at nursing facility. No plan for inpatient urological intervention at this time 05/16/24 Urine culture GPC See above for abx changes A-fib On anticoagulation with Eliquis, will hold with drop in hemoglobin and monitoring for hematuria held BB for now with initial low BP 05/19 HR 50s, cont to hold BB 05/20 resumed BB, lasix and lisinopril. Urine appears clear and Hgb is stable, will resume eliquis as well Since then, cont with coreg and eliquis Type 2 diabetes mellitus Holding metformin Accu-Cheks and insulin protocol Dyslipidemia Continue statin Anemia Hemoglobin 11 > 9 Baseline hgb 9-10 Hx of LISA Continue to monitor Transfuse hemoglobin <7 HTN Holding home meds with soft pressures initially Now resume coreg, lisinopril Hypomagnesemia Replace with IV mag Cardiomyopathy With recovered EF 55-60% on 07/27/2023 Resumed lasix, BB and ACEI Dementia Alert and oriented to self only - DVT prophylaxis: eliquis - Code status: full code 05/21 called family: no answers, left a message with updates on his son's phone MANSOOR LEMA MD 05/22/2024 11:46 AM RDS MANAGEMENT TECHNICIAN * Percy Landa MD - 05/22/2024 9:27 AM CST Brief cardiology note Repeat cultures are negative to date. Defer to ID if need TATE at this time, abraham in light of patient's dementia. I reviewed TTE images, no compelling vegetation but definitely easy for PPM lead associated endocarditis to be missed on TTE, so TATE is certainly warranted if clinical concern for endocarditis. Appreciate ID input. RDS MANAGEMENT TECHNICIAN * Carmen Faith, HERBOLOGIST - 05/21/2024 1:54 PM CST 05/21/24 [address] follow-up at this date to ensure diet tolerance and reassess for possible downgrade/upgrade. Pt is currently on a regular solids diet with mildly thick liquids. Pt was being fed lunch by RN upon ST arrival. Pt appeared agitated when asked if he wanted more to eat, as he attempted to hit and verbalized a string of unintelligible words/profanity. Pt able to take one bite of lunch whenprovided encouragement. RN reports that he does not chew his foods adequately enough before initiating swallow. Inpatient HERBOLOGIST Time Calculation HERBOLOGIST Start Time 1258 HERBOLOGIST Stop Time 1310 HERBOLOGIST Time Calculation (min) 12 min Bedside Swallow Current diet solids Level 7 Regular Current diet liquids Level 2 Mildly thick Feeding method Dependent for feeding Therapeutic solid trials Level 6 Soft and bite-sized;Level 7 Regular;Level 4 Puree Therapeutic liquid trials Level 2 Mildly thick Swallowing impressions/assessment Pt able to drink mildly thick liquids w/o s/s of aspiration in 3/3 trials when provided by straw. HERBOLOGIST Recommendations Recommended Diet Change Yes Recommended Solid Diet Level 6 Soft and bite-sized Recommended Liquid Consistency Level 2 Mildly thick Recommended Safety Precautions 1:1 close supervision for meals;Upright position at least 30 minutesafter meals;Small sips and bites when eating Plan HERBOLOGIST Plan for Next Session Recommend pt be downgraded to level 6 soft and bite- sized for ease of mastication at this time. He is to remain on mildly thick liquids for the time being. Straws are ok. Skilled ST to follow-up in 2-3 business days to ensure diet tolerance and reassess as pt's mental status fluctuates. RDS MANAGEMENT TECHNICIAN * Mansoor Lema MD - 05/21/2024 11:27 AM CST Hospitalist Daily Progress Note Patient: Avila Crocker (:1945) Room: A3/ Date of admission: 05/16/2024 No of days in hospital: 5 Subjective Interval Hx: Pt is at baseline. He said fine when I asked how he was. He has a low grade fever to 100.2F yesterday. Attempt to call his son and daughter to update them; no answers. I left a message on his son'sphone with an update Objective Filed Vitals: 05/21/24 0014 05/21/24 0511 05/21/24 0725 05/21/24 1032 BP: (!) 144/72 134/67 124/67 Pulse: (!) 59 60 (!) 59 Resp: Temp: 98.6 ??F (37 ??C) 99 ??F (37.2 ??C) 98.4 ??F (36.9 ??C) TempSrc: Axillary Oral Oral SpO2: 93% 96% 98% Weight: 79.4 kg (175 lb 0.7 oz) 79.2 kg (174 lb 9.7 oz) Height: Physical Exam: Gen: Alert, cooperative, confused at baseline mentation Head: Normocephalic, without obvious abnormality, atraumatic Eyes: Conjunctivae/corneas clear, EOMI Nose: Mucosa normal. No drainage. Throat:Moist mucous membranes, Neck: trachea midline Resp: CTAB, no wheezes/rales/rhonchi CV: RRR, S1S2, No M/R/G Abd: S/NT/ND, BS+, no bruits Ext: No clubbing, cyanosis, edema Skin: Skin color, texture, turgor normal. No rashes or lesions Neuro: No focal deficits Intake/Output 24H Total: Intake/Output Summary (Last 24 hours) at 05/21/2024 1127 Last data filed at 05/21/2024 1032 Gross per 24 hour Intake 962.08 ml Output 2050 ml Net -1087.92 ml Medication apixaban 5 mg Oral BID atorvastatin 80 mg Oral Nightly at bedtime carvedilol 6.25 mg Oral BID DAPTOmycin 10 mg/kg (Adjusted) Intravenous Q24H dutasteride 0.5 mg Oral Daily furosemide 40 mg Oral Daily insulin lispro 0-14 Units Subcutaneous TID AC And insulin lispro 0-7 Units Subcutaneous Nightly at bedtime lisinopril 5 mg Oral Daily magnesium oxide 400 mg Oral BID magnesium sulfate 2 g Intravenous Once PRN Meds: acetaminophen, jxxiartze-mqymjdtv-dyfhdlutlym, ondansetron, polyethylene glycol Labs: Recent Labs Lab 05/16/24 1133 05/17/24 0610 05/18/24 1219 05/19/24 0510 05/20/24 0518 05/21/24 0428 WBC 13.44* 23.38* 13.29* 12.25* 9.68 9.44 RBC 4.14* 3.38* 3.87* 3.71* 4.01* 3.99* HGB 11.0* 9.1* 10.3* 9.9* 10.7* 10.5* HCT 36.0* 29.4* 34.2* 31.7* 34.1* 34.2* MCV 87.0 87.0 88.4 85.4 85.0 85.7 MCH 26.6* 26.9* 26.6* 26.7* 26.7* 26.3* MCHC 30.6* 31.0* 30.1* 31.2* 31.4* 30.7* PLT 256 169 187 195 208 180 RDW 15.9* 16.4* 15.9* 15.8* 15.7* 15.9* MPV 10.0 10.3 11.6 11.1 10.8 11.6 PERNEU 93.7 -- 84.5 85.6 80.4 79.6 PERLYM 4.7 -- 10.3 8.5 11.8 10.3 PERMON 0.6 -- 3.8 4.6 5.5 8.2 PEREOS 0.4 -- -- -- -- -- PERBASO 0.1 -- -- -- -- -- NEUC 12.59* 21.74* 11.24* 10.49* 7.78* 7.52 LYMC 0.63* 0.70* 1.37 1.04 1.14 0.97* MONOC 0.08 0.94* 0.51 0.56 0.53 0.77 EOSC 0.06 -- 0.06 0.08 0.15 0.10 BASOC 0.01 -- 0.02 0.03 0.03 0.02 DTYPE -- MANUAL DIFFERENTIAL AUTOMATED DIFFERENTIAL AUTOMATED DIFFERENTIAL AUTOMATED DIFFERENTIAL AUTOMATED DIFFERENTIAL Recent Labs Lab 05/16/24 1133 05/17/24 0610 05/18/24 1219 05/19/24 0510 05/20/24 0518 05/21/24 0428 NA 141 135* 136 138 141 141 K 4.7 3.7 3.9 3.6 4.1 3.8 CL 102 104 106 106 109 108 CO2 30.3 27.0 24.4 28.3 27.8 27.9 AGAP 8.7 4.0 5.6 3.7 4.2 5.1 BUN 20 28* 21* 16 16 18 CR 0.84 0.89 0.61* 0.46* 0.52* 0.63* BUNCREATININ -- 31.3* 34.7* 34.9* 30.6* 28.7* GLU 167* 199* 200* 145* 150* 194* CA 8.9 8.1* 8.5 8.7 8.8 9.0 TP 7.6 -- -- -- -- -- ALB 2.9* -- -- -- -- -- TBIL 0.8 -- -- -- -- -- ALKP 97 -- -- -- -- -- AST 14* -- -- -- -- -- ALT 16 -- -- -- -- -- Recent Labs Lab 05/17/24 0610 HGBA1C 7.7* TSH 2.810 Recent Labs Lab 05/17/24 0610 INR 1.6 Recent Labs Lab 05/16/24 1133 05/17/24 0610 05/21/24 0428 TROP 27 50 -- CPK -- -- 33* Recent Labs Lab 05/16/24 1133 05/16/24 1333 05/16/24 1545 LACTICACID 4.2* 3.3* 2.8* No results for input(s): PH , PCO2 , PO2 , [id number] , BICARBWB , BASEDEFICIT , BASEEXCESS in the last 168 hours. Results for orders placed or performed during the hospital encounter of 02/17/23 URINALYSIS, AUTO, COMPLETE Collection Time: 02/17/23 10:00 AM Result Value Ref Range COLOR (U) LIGHT YELLOW TRANSPARENCY CLEAR SPECIFIC GRAVITY (U) 1.010 1.003 - 1.030 U PH 6.5 5.0 - 9.0 LEUKOCYTES (U) NEGATIVE NEGATIVE NITRITES NEGATIVE NEGATIVE PROTEIN RANDOM (U) NEGATIVE NEGATIVE GLUCOSE (U) NORMAL NORMAL KETONES MG/DL (U) NEGATIVE NEGATIVE UROBILINOGEN NORMAL NORMAL MG/DL BILIRUBIN (U) NEGATIVE NEGATIVE BLOOD (U) NEGATIVE NEGATIVE MUCUS PRESENT HYALINE CASTS 0-5 WBC/HPF 0-5 0 - 5 /HPF COMMENT (U) URINE RESULTS Imaging ECG 12 lead Result Date: 05/17/[address] 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 [address] Examination: XR CHEST PORTABLE Exam time: 05/16/2024 11:43 AM Clinical history: Chest pain, fever Comparison: 12/09/2023 Technique: AP chest Findings: Borderline heart size similar to previous study. Left subclavian transvenous pacerlead placements are unchanged. No pulmonary vascular congestion. There is no acute pulmonary parench ymal opacity. No pleural effusion. No hyperinflation. IMPRESSION: 1) No radiographic evidence of active disease the chest. Ordered By: ROBERT WATKINS Interpreted By: Flo Gardner MD, 05/16/2024 12:[address] ABD+PEL W IV CON ONLY Result Date: 05/09/2024 [facility] [address] [place] [address] INDICATION: Umbilical hernia, abdominal pain, concern for bowel obstruction COMPARISON: CT abdomen/pelvis, 09 Dec 2023 TECHNIQUE: CTimages of the abdomen and pelvis were obtained following the administration of IV contrast. Radiation dose reduction technique utilized. FINDINGS: Limited visualization of the lower thorax reveals noacute abnormality. Partially visualized cardiac pacemaker leads. Mild to moderate coronary atherosclerosis. Benign calcified pulmonary granulomata. 0.7 cm pulmonary nodule in the lingula, axial image11. Unchanged elevation of the right hemidiaphragm. Beam hardening artifact from upper extremities somewhat degrades evaluation of the upper abdomen. Limited assessment of the hepatic parenchyma. Gallbladder within normal limits. Main portal vein, splenic vein, SMV, and SMA enhance. Atherosclerosisof the abdominal and pelvic vasculature. No retroperitoneal lymphadenopathy. Moderate rectal stool burden. Normal appearing appendix. Mural edema in the sigmoid colon suggests nonspecific colitis. Liquid present throughout the small bowel and colon, consistent with diarrheal state. Mucosal enhancement pattern in the proximal jejunum compatible with nonspecific enteritis. Additional focus of muraledema in a loop of small bowel in [...] 1. Findings compatible with nonspecific enteritis/colitis and diarrheal state. No evidence of bowel obstruction, as clinically queried. 2. Guerra catheter bulb appears in low lying position within the enlarged prostate. Recommend repositioning. 3. 1.4 cm hypoenhancing focus in the pancreatic tail. This could possibly represent benign focal fatty infiltration, though recommend nonemergent further evaluation with pancreatic protocol MRI to exclude cyst or mass. 4. Small fat-containing umbilical hernia without evidence of complication. 5. Mild anasarca, more pronounced inferiorly. 6. 0.7 cm pulmonary nodule in the lingula. Recommend follow-up chest CT in 6-12 months. 7. Other chronic/nonurgent findings, as above. Referred By: Interpreted By: Rj Mendoza MD, 05/09/2024 8:18 PM EKG: No results found for this visit on 05/16/24. Assessment/Plan: Hematuria Sepsis Bacteremia Patient admitted to the telemetry unit Evident with systemic inflammatory response with white count 13, fever 102.8F Source: , bacteremia Lactic acid 4.2, improved to 2.8 05/16 blood culture +gram positive cocci in clusters IV Rocephin/Vanc (05/16- ) WBC uptrending 13>23 ID consulted, appreciate recs 05/17 blood culture is positive again for staph 05/18 cont with Vanc, Ceftriaxone. WBC 13.29. plan for echo to check for IE. 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 Repeat blood culture tomorrow 05/19 Cont with IV ceftriaxone and Vanc for now. First culture 05/16 result is MSSA, awaiting 05/17culture and sensitivity. WBC 12.25 05/20 WBC 9.68. 05/17 culture showed MSSA. ID switched abx of daptomycin. Echo showed a small 0.7 cm. linear structure on ventricular aspect of anterior and also posterior mitral leaflets- cannot exclude vegetation (vs. part of chordal structure). Since then cont with daptomycin. Cardiology is consulted for a TATE. ?Infectious endocarditis 05/20 Echo showed a small 0.7 cm. linear structure on ventricular aspect of anterior and also posterior mitral leaflets- cannot exclude vegetation (vs. part of chordal structure). Since then cont with daptomycin. Cardiology is consulted for a TATE. 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 Recommends monitoring for gross hematuria. If this develops, replace Guerra with a 22Fr 3-way catheter (currently tamara urine). Otherwise, continue monthly catheter exchanges at nursing facility. No plan for inpatient urological intervention at this time 05/16/24 Urine culture GPC See above for abx changes A-fib On anticoagulation with Eliquis, will hold with drop in hemoglobin and monitoring for hematuria held BB for now with initial low BP 05/19 HR 50s, cont to hold BB 05/20 resumed BB, lasix and lisinopril. Urine appears clear and Hgb is stable, will resume eliquis as well Since then, cont with coreg and eliquis Type 2 diabetes mellitus Holding metformin Accu-Cheks and insulin protocol Dyslipidemia Continue statin Anemia Hemoglobin 11 > 9 Baseline hgb 9-10 Hx of LISA Continue to monitor Transfuse hemoglobin <7 HTN Holding home meds with soft pressures initially Now resume coreg, lisinopril Hypomagnesemia Replace with IV mag Cardiomyopathy With recovered EF 55-60% on 07/27/2023 Resumed lasix, BB and ACEI Dementia Alert and oriented to self only - DVT prophylaxis: eliquis - Code status: full code 05/21 called family: no answers, left a message with updates on his son's phone MANSOOR LEMA MD 05/21/2024 11:27 AM RDS MANAGEMENT TECHNICIAN * Amada Fraire RN - 05/21/2024 3:16 AM CST Problem: Discharge Planning Goal: Knowledge of discharge instructions Outcome: Progressing Problem: Pain control/comfort Goal: Promote pain control/comfort Outcome: Met This Shift Problem: Skin integrity, Impaired-wound Goal: Absence of new skin breakdown Outcome: Met This Shift Goal: Evidence of wound healing Outcome: Met This Shift Problem: Skin integrity, Impaired-pressure injury/ulcer Goal: Absence of new skin breakdown Outcome: Met This Shift Goal: Evidence of pressure injury/ulcer healing Outcome: Met This Shift Problem: Skin integrity, at risk Goal: Absence of new skin breakdown Outcome: Met This Shift Problem: Moisture associated skin impairment Goal: Reduce moisture exposure Outcome: Met This Shift Goal: Evidence of wound healing Outcome: Met This Shift Goal: Evidence of pressure injury/ulcer healing Outcome: Met This Shift Goal: Absence of new skin breakdown Outcome: Met This Shift Problem: Infection - Risk of, Urinary Catheter-Associated Urinary Tract Infection Goal: Absence of Urinary Catheter Associated Urinary Tract (UTI) Infection Signs and Symptoms Outcome: Met This Shift Problem: Reduced risk for falls/injury Goal: Reduced Risk for Falls/Injury Outcome: Met This Shift Goal: Reduced Risk of Confusion (Acute vs Chronic) Outcome: Met This Shift Goal: Reduced Risk of Symptomatic Depression Outcome: Met This Shift Goal: Reduced Risk of Altered Elimination Outcome: Met This Shift Goal: Reduced Risk of Dizziness/Vertigo/Balance Outcome: Met This Shift Goal: Reduced Risk of Polypharmacy Outcome: Met This Shift Problem: Pain Goal: Patient's pain/discomfort is manageable Description: Assess and monitor patient's pain using appropriate pain scale. Collaborate with interdisciplinary team and initiate plan and interventions as ordered. Re-assess patient's pain level 30 - 60 minutes after pain management intervention. Outcome: Met This Shift Problem: Safety Goal: Patient will be injury free during hospitalization Description: Assess and monitor vitals signs, neurological status including level of consciousness and orientation. Assess patient's risk for falls and implement fall prevention plan of care and interventions per hospital policy. Ensure arm band on, uncluttered walking paths in room, adequate room lighting, call light and overbed table within reach, bed in low position, wheels locked, side rails up per policy, and non-skid footwear provided. Outcome: Met This Shift Problem: Daily Care Goal: Daily care needs are met Description: Assess and monitor ability to perform self care and identify potential discharge needs. Outcome: Met This Shift Problem: Psychosocial Needs Goal: Demonstrates ability to cope with hospitalization/illness Description: Assess and monitor patients ability to cope with his/her illness. Outcome: Met This Shift Goal: Collaborate with patient/family/caregiver to identify patient specific goals for this hospitalization Outcome: Met This Shift Problem: Discharge Barriers Goal: Patient's discharge needs are met Description: Collaborate with interdisciplinary team and initiate plans and interventions as needed. Outcome: Met This Shift Problem: Discharge Planning Goal: Knowledge of discharge instructions Outcome: Met This Shift Problem: Body Temperature - Risk of, Imbalanced Goal: Body temperature within specified parameters Outcome: Met This Shift Problem: Infection - Risk of, Septic Shock Goal: Absence of infection signs and symptoms Outcome: Met This Shift Problem: Venous Thromboembolism - Risk of Goal: Absence of venous thromboembolism Outcome: Met This Shift Problem: Discharge Planning Goal: Knowledge of discharge plan Outcome: Met This Shift Problem: Activity Intolerance Goal: Improved activity tolerance Outcome: Met This Shift Goal: Able to perform prescribed physical activity Outcome: Met This Shift Problem: Anxiety Goal: Alleviation of anxiety Outcome: Met This Shift Problem: Pain - Acute Goal: Achieve acceptable pain level Outcome: Met This Shift Problem: Tissue Perfusion - Cardiopulmonary, Altered Goal: Absence of chest pain Outcome: Met This Shift RDS MANAGEMENT TECHNICIAN * Zamzam Bender MAINTENANCE TEAM MEMBER - 05/20/2024 2:22 PM CST 05/20 Culture results pending, continues on IV antibiotics cw RDS MANAGEMENT TECHNICIAN * Zamzam Bender MAINTENANCE TEAM MEMBER - 05/20/2024 2:22 PM CST Continues on IV antibiotics, culture resutls pending 05/20/24 1421 Interdisciplinary Group Conference Team Members Present Physician;Case/Care management;Nursing;PT/OT;Pharmacy Physician present for group conference Mansoor alcaraz Patient Current Status Paient current status Inpatient Barriers to Discharge Inpatient Review Barriers to Discharge Inpatient Other (Comment);Test Pending Administering IV meds follow up IV antibiotics Test Pending follow up Culture results pending Patient expects to be discharged to Patient expects to be discharged to: [facility] RDS MANAGEMENT TECHNICIAN * Lesia Juarez DPT - 05/20/2024 1:21 PM CST 05/20/24 1300 Therapy Visit Ordering Provider Laisha Smith RM [id number]: PT orders received, EMR reviewed. Pt's RN states that pt is not currently appropriate for skilled PT services and per RNCM, pt is a [employer] [facility] resident at baseline. RN, OT, RNCMin agreement with PT to discharge PT orders at this time, please reorders skilled PT services as appropriate Reason for admission Hematuria, sepsis RDS MANAGEMENT TECHNICIAN * Mansoor Lema MD - 05/20/2024 1:03 PM CST Hospitalist Daily Progress Note Patient: Avila Crocker (:1945) Room: [place] [address] Date of admission: 05/16/2024 No of days in hospital: 4 Subjective Interval Hx: Pt is at baseline. He is afebrile overnight. He did not have any complaint, but appeared to be agitated. He had zyprexa last night for agitation Objective Filed Vitals: 05/20/24 0506 05/20/24 0814 05/20/24 0929 05/20/24 1132 BP: (!) 160/73 (!) 169/84 (!) 152/74 Pulse: (!) 59 (!) 59 61 60 Resp: 18 14 18 Temp: 97.7 ??F (36.5 ??C) 97.7 ??F (36.5 ??C) 98.4 ??F (36.9 ??C) TempSrc: Axillary Oral Oral SpO2: 99% 98% 94% 96% Weight: Height: Physical Exam: Gen: Alert, cooperative, confused at baseline mentation Head: Normocephalic, without obvious abnormality, atraumatic Eyes: Conjunctivae/corneas clear, EOMI Nose: Mucosa normal. No drainage. Throat:Moist mucous membranes, Neck: trachea midline Resp: CTAB, no wheezes/rales/rhonchi CV: RRR, S1S2, No M/R/G Abd: S/NT/ND, BS+, no bruits Ext: No clubbing, cyanosis, edema Skin: Skin color, texture, turgor normal. No rashes or lesions Neuro: No focal deficits Intake/Output 24H Total: Intake/Output Summary (Last 24 hours) at 05/20/2024 1309 Last data filed at 05/20/2024 1245 Gross per 24 hour Intake 984.58 ml Output 2050 ml Net -1065.42 ml Medication atorvastatin 80 mg Oral Nightly at bedtime carvedilol 6.25 mg Oral BID DAPTOmycin 10 mg/kg (Adjusted) Intravenous Q24H dutasteride 0.5 mg Oral Daily furosemide 40 mg Oral Daily insulin lispro 0-14 Units Subcutaneous TID AC And insulin lispro 0-7 Units Subcutaneous Nightly at bedtime lisinopril 5 mg Oral Daily magnesium oxide 400 mg Oral BID PRN Meds: acetaminophen, gbxqpqhbz-vmxjrkah-kqpglazitou, ondansetron, polyethylene glycol Labs: Recent Labs Lab 05/16/24 1133 05/17/24 0610 05/18/24 1219 05/19/24 0510 05/20/24 0518 WBC 13.44* 23.38* 13.29* 12.25* 9.68 RBC 4.14* 3.38* 3.87* 3.71* 4.01* HGB 11.0* 9.1* 10.3* 9.9* 10.7* HCT 36.0* 29.4* 34.2* 31.7* 34.1* MCV 87.0 87.0 88.4 85.4 85.0 MCH 26.6* 26.9* 26.6* 26.7* 26.7* MCHC 30.6* 31.0* 30.1* 31.2* 31.4* PLT 256 169 187 195 208 RDW 15.9* 16.4* 15.9* 15.8* 15.7* MPV 10.0 10.3 11.6 11.1 10.8 PERNEU 93.7 -- 84.5 85.6 80.4 PERLYM 4.7 -- 10.3 8.5 11.8 PERMON 0.6 -- 3.8 4.6 5.5 PEREOS 0.4 -- -- -- -- PERBASO 0.1 -- -- -- -- NEUC 12.59* 21.74* 11.24* 10.49* 7.78* LYMC 0.63* 0.70* 1.37 1.04 1.14 MONOC 0.08 0.94* 0.51 0.56 0.53 EOSC 0.06 -- 0.06 0.08 0.15 BASOC 0.01 -- 0.02 0.03 0.03 DTYPE -- MANUAL DIFFERENTIAL AUTOMATED DIFFERENTIAL AUTOMATED DIFFERENTIAL AUTOMATED DIFFERENTIAL Recent Labs Lab 05/16/24 1133 05/17/24 0610 05/18/24 1219 05/19/24 0510 05/20/24 0518 NA 141 135* 136 138 141 K 4.7 3.7 3.9 3.6 4.1 CL 102 104 106 106 109 CO2 30.3 27.0 24.4 28.3 27.8 AGAP 8.7 4.0 5.6 3.7 4.2 BUN 20 28* 21* 16 16 CR 0.84 0.89 0.61* 0.46* 0.52* BUNCREATININ -- 31.3* 34.7* 34.9* 30.6* GLU 167* 199* 200* 145* 150* CA 8.9 8.1* 8.5 8.7 8.8 TP 7.6 -- -- -- -- ALB 2.9* -- -- -- -- TBIL 0.8 -- -- -- -- ALKP 97 -- -- -- -- AST 14* -- -- -- -- ALT 16 -- -- -- -- Recent Labs Lab 05/17/24 0610 HGBA1C 7.7* TSH 2.810 Recent Labs Lab 05/17/24 0610 INR 1.6 Recent Labs Lab 05/16/24 1133 05/17/24 0610 TROP 27 50 Recent Labs Lab 05/16/24 1133 05/16/24 1333 05/16/24 1545 LACTICACID 4.2* 3.3* 2.8* No results for input(s): PH , PCO2 , PO2 , [id number] , BICARBWB , BASEDEFICIT , BASEEXCESS in the last 168 hours. Results for orders placed or performed during the hospital encounter of 02/17/23 URINALYSIS, AUTO, COMPLETE Collection Time: 02/17/23 10:00 AM Result Value Ref Range COLOR (U) LIGHT YELLOW TRANSPARENCY CLEAR SPECIFIC GRAVITY (U) 1.010 1.003 - 1.030 U PH 6.5 5.0 - 9.0 LEUKOCYTES (U) NEGATIVE NEGATIVE NITRITES NEGATIVE NEGATIVE PROTEIN RANDOM (U) NEGATIVE NEGATIVE GLUCOSE (U) NORMAL NORMAL KETONES MG/DL (U) NEGATIVE NEGATIVE UROBILINOGEN NORMAL NORMAL MG/DL BILIRUBIN (U) NEGATIVE NEGATIVE BLOOD (U) NEGATIVE NEGATIVE MUCUS PRESENT HYALINE CASTS 0-5 WBC/HPF 0-5 0 - 5 /HPF COMMENT (U) URINE RESULTS Imaging ECG 12 lead Result Date: 05/17/[address] 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 [address] Examination: XR CHEST PORTABLE Exam time: 05/16/2024 11:43 AM Clinical history: Chest pain, fever Comparison: 12/09/2023 Technique: AP chest Findings: Borderline heart size similar to previous study. Left subclavian transvenous pacerlead placements are unchanged. No pulmonary vascular congestion. There is no acute pulmonary parench ymal opacity. No pleural effusion. No hyperinflation. IMPRESSION: 1) No radiographic evidence of active disease the chest. Ordered By: ROBERT WATKINS Interpreted By: Flo Gardner MD, 05/16/2024 12:[address] ABD+PEL W IV CON ONLY Result Date: 05/09/[address] [place] [address] INDICATION: Umbilical hernia, abdominal pain, concern for bowel obstruction COMPARISON: CT abdomen/pelvis, 09 Dec 2023 TECHNIQUE: CTimages of the abdomen and pelvis were obtained following the administration of IV contrast. Radiation dose reduction technique utilized. FINDINGS: Limited visualization of the lower thorax reveals noacute abnormality. Partially visualized cardiac pacemaker leads. Mild to moderate coronary atherosclerosis. Benign calcified pulmonary granulomata. 0.7 cm pulmonary nodule in the lingula, axial image11. Unchanged elevation of the right hemidiaphragm. Beam hardening artifact from upper extremities somewhat degrades evaluation of the upper abdomen. Limited assessment of the hepatic parenchyma. Gallbladder within normal limits. Main portal vein, splenic vein, SMV, and SMA enhance. Atherosclerosisof the abdominal and pelvic vasculature. No retroperitoneal lymphadenopathy. Moderate rectal stool burden. Normal appearing appendix. Mural edema in the sigmoid colon suggests nonspecific colitis. Liquid present throughout the small bowel and colon, consistent with diarrheal state. Mucosal enhancement pattern in the proximal jejunum compatible with nonspecific enteritis. Additional focus of muraledema in a loop of small bowel in [...] 1. Findings compatible with nonspecific enteritis/colitis and diarrheal state. No evidence of bowel obstruction, as clinically queried. 2. Guerra catheter bulb appears in low lying position within the enlarged prostate. Recommend repositioning. 3. 1.4 cm hypoenhancing focus in the pancreatic tail. This could possibly represent benign focal fatty infiltration, though recommend nonemergent further evaluation with pancreatic protocol MRI to exclude cyst or mass. 4. Small fat-containing umbilical hernia without evidence of complication. 5. Mild anasarca, more pronounced inferiorly. 6. 0.7 cm pulmonary nodule in the lingula. Recommend follow-up chest CT in 6-12 months. 7. Other chronic/nonurgent findings, as above. Referred By: Interpreted By: Rj Mendoza MD, 05/09/2024 8:18 PM EKG: No results found for this visit on 05/16/24. Assessment/Plan: Hematuria Sepsis Bacteremia Patient admitted to the telemetry unit Evident with systemic inflammatory response with white count 13, fever 102.8F Source: , bacteremia Lactic acid 4.2, improved to 2.8 05/16 blood culture +gram positive cocci in clusters IV Rocephin/Vanc (05/16- ) WBC uptrending 13>23 ID consulted, appreciate recs 05/17 blood culture is positive again for staph 05/18 cont with Vanc, Ceftriaxone. WBC 13.29. plan for echo to check for IE. 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 Repeat blood culture tomorrow 05/19 Echo is ordered and not done due to the holiday. Cont with IV ceftriaxone and Vanc for now. First culture 05/16 result is MSSA, awaiting 05/17 culture and sensitivity. WBC 12.25 05/20 WBC 9.68. 05/17 culture showed MSSA. ID switched abx of daptomycin CAUTI Patient urine culture on 12/12/2023 showed PROVIDENCIA STUARTII susceptible to Rocephin Patient started on Rocephin, continue In ED hematuria was noted, currently urine looks clear Patient had a CT abdomen and pelvis on 05/09/2024 which recommended repositioning Guerra catheter asthe bulb was laying within the enlarged prostate, will clarify when was the last time the Guerra wasexchanged Urology consulted. Recommends monitoring for gross hematuria. If this develops, replace Guerra with a 22Fr 3-way catheter (currently tamara urine). Otherwise, continue monthly catheter exchanges at nursing facility. No plan for inpatient urological intervention at this time 05/16/24 Urine culture GPC See above for abx changes A-fib On anticoagulation with Eliquis, will hold with drop in hemoglobin and monitoring for hematuria held BB for now with initial low BP 05/19 HR 50s, cont to hold BB 05/20 resumed BB, lasix and lisinopril. Urine appears clear and Hgb is stable, will resume eliquis as well Type 2 diabetes mellitus Holding metformin Accu-Cheks and insulin protocol Dyslipidemia Continue statin Anemia Hemoglobin 11 > 9 Baseline hgb 9-10 Hx of LISA Continue to monitor Transfuse hemoglobin <7 HTN Holding home meds with soft pressures initially Resumed Hypomagnesemia Replace with IV mag Cardiomyopathy With recovered EF 55-60% on 07/27/2023 Resumed lasix, BB and ACEI Dementia Alert and oriented to self only - DVT prophylaxis: eliquis - Code status: full code MANSOOR LEMA MD 05/20/2024 1:09 PM RDS MANAGEMENT TECHNICIAN * Lore Jean OTR - 05/20/2024 10:45 AM CST 05/20/24 1000 Therapy Visit Reason for admission Hematuria, sepsis Ordering Provider Laisha Subjective Subjective RM 311: Per RN, pt continues to be combative and aggressive at times. RNCM states that pt is a LT resident at facility and does not demo skilled needs at this time. OT to d/c these orders. RDS MANAGEMENT TECHNICIAN * Amada Fraire RN - 05/20/2024 2:23 AM CST Problem: Discharge Planning Goal: Knowledge of discharge instructions Outcome: Progressing Problem: Pain control/comfort Goal: Promote pain control/comfort Outcome: Progressing Problem: Infection - Risk of, Urinary Catheter-Associated Urinary Tract Infection Goal: Absence of Urinary Catheter Associated Urinary Tract (UTI) Infection Signs and Symptoms Outcome: Progressing Problem: Reduced risk for falls/injury Goal: Reduced Risk of Confusion (Acute vs Chronic) Outcome: Progressing Problem: Psychosocial Needs Goal: Demonstrates ability to cope with hospitalization/illness Description: Assess and monitor patients ability to cope with his/her illness. Outcome: Progressing Goal: Collaborate with patient/family/caregiver to identify patient specific goals for this hospitalization Outcome: Progressing Problem: Discharge Barriers Goal: Patient's discharge needs are met Description: Collaborate with interdisciplinary team and initiate plans and interventions as needed. Outcome: Progressing Problem: Discharge Planning Goal: Knowledge of discharge instructions Outcome: Progressing Problem: Skin integrity, Impaired-wound Goal: Absence of new skin breakdown Outcome: Met This Shift Goal: Evidence of wound healing Outcome: Met This Shift Problem: Skin integrity, Impaired-pressure injury/ulcer Goal: Absence of new skin breakdown Outcome: Met This Shift Goal: Evidence of pressure injury/ulcer healing Outcome: Met This Shift Problem: Skin integrity, at risk Goal: Absence of new skin breakdown Outcome: Met This Shift Problem: Moisture associated skin impairment Goal: Reduce moisture exposure Outcome: Met This Shift Goal: Evidence of wound healing Outcome: Met This Shift Goal: Evidence of pressure injury/ulcer healing Outcome: Met This Shift Goal: Absence of new skin breakdown Outcome: Met This Shift Problem: Reduced risk for falls/injury Goal: Reduced Risk for Falls/Injury Outcome: Met This Shift Goal: Reduced Risk of Symptomatic Depression Outcome: Met This Shift Goal: Reduced Risk of Altered Elimination Outcome: Met This Shift Goal: Reduced Risk of Dizziness/Vertigo/Balance Outcome: Met This Shift Goal: Reduced Risk of Polypharmacy Outcome: Met This Shift Problem: Pain Goal: Patient's pain/discomfort is manageable Description: Assess and monitor patient's pain using appropriate pain scale. Collaborate with interdisciplinary team and initiate plan and interventions as ordered. Re-assess patient's pain level 30 - 60 minutes after pain management intervention. Outcome: Met This Shift Problem: Safety Goal: Patient will be injury free during hospitalization Description: Assess and monitor vitals signs, neurological status including level of consciousness and orientation. Assess patient's risk for falls and implement fall prevention plan of care and interventions per hospital policy. Ensure arm band on, uncluttered walking paths in room, adequate room lighting, call light and overbed table within reach, bed in low position, wheels locked, side rails up per policy, and non-skid footwear provided. Outcome: Met This Shift Problem: Daily Care Goal: Daily care needs are met Description: Assess and monitor ability to perform self care and identify potential discharge needs. Outcome: Met This Shift Problem: Body Temperature - Risk of, Imbalanced Goal: Body temperature within specified parameters Outcome: Met This Shift Problem: Gas Exchange - Impaired Goal: Absence of cyanosis signs and symptoms Outcome: Met This Shift Problem: Injury - Risk of, Abnormal Serum Glucose Level Goal: Glucose level within specified parameters Outcome: Met This Shift Problem: Infection - Risk of, Septic Shock Goal: Absence of infection signs and symptoms Outcome: Met This Shift Problem: Infection - Risk of, Ventilator-Associated Pneumonia Goal: Absence of pulmonary infection Outcome: Met This Shift Problem: Tissue Perfusion - Risk of, Altered Goal: Normotensive Outcome: Met This Shift Problem: Venous Thromboembolism - Risk of Goal: Absence of venous thromboembolism Outcome: Met This Shift Problem: Discharge Planning Goal: Knowledge of discharge plan Outcome: Met This Shift Problem: Pain - Acute Goal: Achieve acceptable pain level Outcome: Met This Shift Problem: Tissue Perfusion - Cardiopulmonary, Altered Goal: Absence of chest pain Outcome: Met This Shift Problem: Venous Thromboembolism - Risk of Goal: Absence of venous thromboembolism Outcome: Met This Shift RDS MANAGEMENT TECHNICIAN * Mansoor Lema MD - 05/19/2024 1:52 PM CST Hospitalist Daily Progress Note Patient: Avila Crocker (:1945) Room: [place] [address] Date of admission: 05/16/2024 No of days in hospital: 3 Subjective Interval Hx: Pt appears to ne at baseline. He is afebrile overnight.he ate approximately 75- 90% of his foods. Hemumbled and said I dont want anything succulent . Repeat blood culture in process. Echo is orderedand not done due to the holiday. Cont with IV ceftriaxone and Vanc for now. First culture 05/16 result is MSSA, awaiting 05/17 culture and sensitivity Objective Filed Vitals: 05/19/24 0033 05/19/24 0506 05/19/24 0729 05/19/24 1034 BP: (!) 143/84 131/79 (!) 158/85 134/73 Pulse: (!) 55 (!) 56 (!) 59 (!) 59 Resp: 18 12 17 19 Temp: 97.7 ??F (36.5 ??C) 98.2 ??F (36.8 ??C) 97.5 ??F (36.4 ??C) 97.5 ??F (36.4 ??C) TempSrc: Oral Axillary Oral Oral SpO2: 93% 99% 97% 97% Weight: 82.6 kg (182 lb 1.6 oz) Height: Physical Exam: Gen: Alert, cooperative, pleasantly confused at baseline mentation Head: Normocephalic, without obvious abnormality, atraumatic Eyes: Conjunctivae/corneas clear, EOMI Nose: Mucosa normal. No drainage. Throat:Moist mucous membranes, Neck: trachea midline Resp: CTAB, no wheezes/rales/rhonchi CV: RRR, S1S2, No M/R/G Abd: S/NT/ND, BS+, no bruits Ext: No clubbing, cyanosis, edema Skin: Skin color, texture, turgor normal. No rashes or lesions Neuro: No focal deficits Intake/Output 24H Total: Intake/Output Summary (Last 24 hours) at 05/19/2024 1352 Last data filed at 05/19/2024 1230 Gross per 24 hour Intake 340 ml Output 2700 ml Net -2360 ml Medication atorvastatin 80 mg Oral Nightly at bedtime cefTRIAXone 1 g Intravenous Q24H dutasteride 0.5 mg Oral Daily insulin lispro 0-14 Units Subcutaneous TID AC And insulin lispro 0-7 Units Subcutaneous Nightly at bedtime magnesium oxide 400 mg Oral BID potassium chloride 40 mEq Oral Once vancomycin 1,250 mg Intravenous Q12H vancomycin pharmacy to dose Intravenous See Admin Instructions PRN Meds: acetaminophen, hajknziii-pchtykza-jobfiifonwg, ondansetron, polyethylene glycol Labs: Recent Labs Lab 05/16/24 1133 05/17/24 0610 05/18/24 1219 05/19/24 0510 WBC 13.44* 23.38* 13.29* 12.25* RBC 4.14* 3.38* 3.87* 3.71* HGB 11.0* 9.1* 10.3* 9.9* HCT 36.0* 29.4* 34.2* 31.7* MCV 87.0 87.0 88.4 85.4 MCH 26.6* 26.9* 26.6* 26.7* MCHC 30.6* 31.0* 30.1* 31.2* PLT 256 169 187 195 RDW 15.9* 16.4* 15.9* 15.8* MPV 10.0 10.3 11.6 11.1 PERNEU 93.7 -- 84.5 85.6 PERLYM 4.7 -- 10.3 8.5 PERMON 0.6 -- 3.8 4.6 PEREOS 0.4 -- -- -- PERBASO 0.1 -- -- -- NEUC 12.59* 21.74* 11.24* 10.49* LYMC 0.63* 0.70* 1.37 1.04 MONOC 0.08 0.94* 0.51 0.56 EOSC 0.06 -- 0.06 0.08 BASOC 0.01 -- 0.02 0.03 DTYPE -- MANUAL DIFFERENTIAL AUTOMATED DIFFERENTIAL AUTOMATED DIFFERENTIAL Recent Labs Lab 05/16/24 1133 05/17/24 0610 05/18/24 1219 05/19/24 0510 NA 141 135* 136 138 K 4.7 3.7 3.9 3.6 CL 102 104 106 106 CO2 30.3 27.0 24.4 28.3 AGAP 8.7 4.0 5.6 3.7 BUN 20 28* 21* 16 CR 0.84 0.89 0.61* 0.46* BUNCREATININ -- 31.3* 34.7* 34.9* GLU 167* 199* 200* 145* CA 8.9 8.1* 8.5 8.7 TP 7.6 -- -- -- ALB 2.9* -- -- -- TBIL 0.8 -- -- -- ALKP 97 -- -- -- AST 14* -- -- -- ALT 16 -- -- -- Recent Labs Lab 05/17/24 0610 HGBA1C 7.7* TSH 2.810 Recent Labs Lab 05/17/24 0610 INR 1.6 Recent Labs Lab 05/16/24 1133 05/17/24 0610 TROP 27 50 Recent Labs Lab 05/16/24 1133 05/16/24 1333 05/16/24 1545 LACTICACID 4.2* 3.3* 2.8* No results for input(s): PH , PCO2 , PO2 , [id number] , BICARBWB , BASEDEFICIT , BASEEXCESS in the last 168 hours. Results for orders placed or performed during the hospital encounter of 02/17/23 URINALYSIS, AUTO, COMPLETE Collection Time: 02/17/23 10:00 AM Result Value Ref Range COLOR (U) LIGHT YELLOW TRANSPARENCY CLEAR SPECIFIC GRAVITY (U) 1.010 1.003 - 1.030 U PH 6.5 5.0 - 9.0 LEUKOCYTES (U) NEGATIVE NEGATIVE NITRITES NEGATIVE NEGATIVE PROTEIN RANDOM (U) NEGATIVE NEGATIVE GLUCOSE (U) NORMAL NORMAL KETONES MG/DL (U) NEGATIVE NEGATIVE UROBILINOGEN NORMAL NORMAL MG/DL BILIRUBIN (U) NEGATIVE NEGATIVE BLOOD (U) NEGATIVE NEGATIVE MUCUS PRESENT HYALINE CASTS 0-5 WBC/HPF 0-5 0 - 5 /HPF COMMENT (U) URINE RESULTS Imaging ECG 12 lead Result Date: 05/17/2024 [address] [place] [address] Test Date: 2024-05-16 Pat Name: AVILA CROCKER Department: 3 Room: EXAM 5 Gender: Male 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 Left subclavian transvenous pacerlead placements are unchanged. No pulmonary vascular congestion. There is no acute pulmonary parench ymal opacity. No pleural effusion. No hyperinflation. IMPRESSION: 1) No radiographic evidence of active disease the chest. Ordered By: ROBERT WATKINS Interpreted By: Flo Gardner MD, 05/16/2024 12:[address] ABD+PEL W IV CON ONLY Result Date: 05/09/2024 [place] [address] [place] [address] INDICATION: Umbilical hernia, abdominal pain, concern for bowel obstruction COMPARISON: CT abdomen/pelvis, 09 Dec 2023 TECHNIQUE: CTimages of the abdomen and pelvis were obtained following the administration of IV contrast. Radiation dose reduction technique utilized. FINDINGS: Limited visualization of the lower thorax reveals noacute abnormality. Partially visualized cardiac pacemaker leads. Mild to moderate coronary atherosclerosis. Benign calcified pulmonary granulomata. 0.7 cm pulmonary nodule in the lingula, axial image11. Unchanged elevation of the right hemidiaphragm. Beam hardening artifact from upper extremities somewhat degrades evaluation of the upper abdomen. Limited assessment of the hepatic parenchyma. Gallbladder within normal limits. Main portal vein, splenic vein, SMV, and SMA enhance. Atherosclerosisof the abdominal and pelvic vasculature. No retroperitoneal lymphadenopathy. Moderate rectal stool burden. Normal appearing appendix. Mural edema in the sigmoid colon suggests nonspecific colitis. Liquid present throughout the small bowel and colon, consistent with diarrheal state. Mucosal enhancement pattern in the proximal jejunum compatible with nonspecific enteritis. Additional focus of muraledema in a loop of small bowel in [...] 1. Findings compatible with nonspecific enteritis/colitis and diarrheal state. No evidence of bowel obstruction, as clinically queried. 2. Guerra catheter bulb appears in low lying position within the enlarged prostate. Recommend repositioning. 3. 1.4 cm hypoenhancing focus in the pancreatic tail. This could possibly represent benign focal fatty infiltration, though recommend nonemergent further evaluation with pancreatic protocol MRI to exclude cyst or mass. 4. Small fat-containing umbilical hernia without evidence of complication. 5. Mild anasarca, more pronounced inferiorly. 6. 0.7 cm pulmonary nodule in the lingula. Recommend follow-up chest CT in 6-12 months. 7. Other chronic/nonurgent findings, as above. Referred By: Interpreted By: Rj Mendoza MD, 05/09/2024 8:18 PM EKG: No results found for this visit on 05/16/24. Assessment/Plan: Hematuria Sepsis Bacteremia Patient admitted to the telemetry unit Evident with systemic inflammatory response with white count 13, fever 102.8F Source: , bacteremia Lactic acid 4.2, improved to 2.8 05/16 blood culture +gram positive cocci in clusters IV Rocephin/Vanc (05/16- ) WBC uptrending 13>23 ID consulted, appreciate recs 05/17 blood culture is positive again for staph 05/18 cont with Vanc, Ceftriaxone. WBC 13.29. plan for echo to check for IE. 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 Repeat blood culture tomorrow 05/19 Echo is ordered and not done due to the holiday. Cont with IV ceftriaxone and Vanc for now. First culture 05/16 result is MSSA, awaiting 05/17 culture and sensitivity. WBC 12.25 CAUTI Patient urine culture on 12/12/2023 showed PROVIDENCIA STUARTII susceptible to Rocephin Patient started on Rocephin, continue In ED hematuria was noted, currently urine looks clear Patient had a CT abdomen and pelvis on 05/09/2024 which recommended repositioning Guerra catheter asthe bulb was laying within the enlarged prostate, will clarify when was the last time the Guerra wasexchanged Urology consulted. Recommends monitoring for gross hematuria. If this develops, replace Guerra with a 22Fr 3-way catheter (currently tamara urine). Otherwise, continue monthly catheter exchanges at nursing facility. No plan for inpatient urological intervention at this time 05/16/24 Urine culture GPC Continue IV rocephin/vanc as above A-fib On anticoagulation with Eliquis, will hold with drop in hemoglobin and monitoring for hematuria held BB for now with initial low BP 11/28 HR 50s, cont to hold BB Type 2 diabetes mellitus Holding metformin Accu-Cheks and insulin protocol Dyslipidemia Continue statin Anemia Hemoglobin 11 > 9 Baseline hgb 9-10 Hx of LISA Continue to monitor Transfuse hemoglobin <7 HTN Holding home meds with soft pressures initially Resume as clinically indicated Hypomagnesemia Replace with IV mag Cardiomyopathy With recovered EF 55-60% on 07/27/2023 Resume BB and ACEI once pressures improve Dementia Alert and oriented to self only - DVT prophylaxis: SCDs for now. Holding eliquis - Code status: full code MANSOOR LEMA MD 05/19/2024 1:52 PM RDS MANAGEMENT TECHNICIAN * Rubi Navarro RN - 05/19/2024 1:11 PM CST Problem: Discharge Planning Goal: Knowledge of discharge instructions Outcome: Progressing Problem: Pain control/comfort Goal: Promote pain control/comfort Outcome: Progressing Problem: Skin integrity, Impaired-wound Goal: Absence of new skin breakdown Outcome: Progressing Goal: Evidence of wound healing Outcome: Progressing Problem: Skin integrity, Impaired-pressure injury/ulcer Goal: Absence of new skin breakdown Outcome: Progressing Goal: Evidence of pressure injury/ulcer healing Outcome: Progressing Problem: Skin integrity, at risk Goal: Absence of new skin breakdown Outcome: Progressing Problem: Moisture associated skin impairment Goal: Reduce moisture exposure Outcome: Progressing Goal: Evidence of wound healing Outcome: Progressing Goal: Evidence of pressure injury/ulcer healing Outcome: Progressing Goal: Absence of new skin breakdown Outcome: Progressing Problem: Infection - Risk of, Urinary Catheter-Associated Urinary Tract Infection Goal: Absence of Urinary Catheter Associated Urinary Tract (UTI) Infection Signs and Symptoms Outcome: Progressing Problem: Reduced risk for falls/injury Goal: Reduced Risk for Falls/Injury Outcome: Progressing Goal: Reduced Risk of Confusion (Acute vs Chronic) Outcome: Progressing Goal: Reduced Risk of Symptomatic Depression Outcome: Progressing Goal: Reduced Risk of Altered Elimination Outcome: Progressing Goal: Reduced Risk of Dizziness/Vertigo/Balance Outcome: Progressing Goal: Reduced Risk of Polypharmacy Outcome: Progressing Problem: Pain Goal: Patient's pain/discomfort is manageable Description: Assess and monitor patient's pain using appropriate pain scale. Collaborate with interdisciplinary team and initiate plan and interventions as ordered. Re-assess patient's pain level 30 - 60 minutes after pain management intervention. Outcome: Progressing Problem: Safety Goal: Patient will be injury free during hospitalization Description: Assess and monitor vitals signs, neurological status including level of consciousness and orientation. Assess patient's risk for falls and implement fall prevention plan of care and interventions per hospital policy. Ensure arm band on, uncluttered walking paths in room, adequate room lighting, call light and overbed table within reach, bed in low position, wheels locked, side rails up per policy, and non-skid footwear provided. Outcome: Progressing Problem: Daily Care Goal: Daily care needs are met Description: Assess and monitor ability to perform self care and identify potential discharge needs. Outcome: Progressing Problem: Psychosocial Needs Goal: Demonstrates ability to cope with hospitalization/illness Description: Assess and monitor patients ability to cope with his/her illness. Outcome: Progressing Goal: Collaborate with patient/family/caregiver to identify patient specific goals for this hospitalization Outcome: Progressing Problem: Discharge Barriers Goal: Patient's discharge needs are met Description: Collaborate with interdisciplinary team and initiate plans and interventions as needed. Outcome: Progressing Problem: Discharge Planning Goal: Knowledge of discharge instructions Outcome: Progressing Problem: Body Temperature - Risk of, Imbalanced Goal: Body temperature within specified parameters Outcome: Progressing Problem: Fluid Volume - Risk of, Imbalanced Goal: Absence of hypovolemia Outcome: Progressing Goal: Lactate, serum, within specified parameters Outcome: Progressing Goal: Procalciton within specified parameters Outcome: Progressing Problem: Gas Exchange - Impaired Goal: Absence of cyanosis signs and symptoms Outcome: Progressing Goal: Central or mixed venous oxygen saturation within specified parameters Outcome: Progressing Problem: Injury - Risk of, Abnormal Serum Glucose Level Goal: Glucose level within specified parameters Outcome: Progressing Problem: Infection - Risk of, Septic Shock Goal: Absence of infection signs and symptoms Outcome: Progressing Problem: Infection - Risk of, Ventilator-Associated Pneumonia Goal: Absence of pulmonary infection Outcome: Progressing Goal: Inspiratory plateau pressure within specified parameters Outcome: Progressing Problem: Mobility - Impaired Goal: Able to ambulate within specified parameters Outcome: Progressing Goal: Knowledge of need for increased mobility Outcome: Progressing Problem: Tissue Perfusion - Risk of, Altered Goal: Central venous pressure within specified parameters Outcome: Progressing Goal: Circulatory function, peripheral, within specified parameters Outcome: Progressing Goal: Normotensive Outcome: Progressing Problem: Venous Thromboembolism - Risk of Goal: Absence of venous thromboembolism Outcome: Progressing Problem: Discharge Planning Goal: Knowledge of discharge plan Outcome: Progressing Problem: Activity Intolerance Goal: Improved activity tolerance Outcome: Progressing Goal: Able to perform prescribed physical activity Outcome: Progressing Problem: Anxiety Goal: Alleviation of anxiety Outcome: Progressing Problem: Pain - Acute Goal: Achieve acceptable pain level Outcome: Progressing Problem: Tissue Perfusion - Cardiopulmonary, Altered Goal: Absence of chest pain Outcome: Progressing RDS MANAGEMENT TECHNICIAN * Jakub GomezD - 05/19/2024 10:51 AM CST Images from the original note were not included. Vancomycin Pharmacy to Dose Day #3 Ordering Provider: Kenton Indication: Sepsis Ht/Wt: 182.9 cm/84 kg AUC goal: 400 - 600 Date WBC SCr CrCl Tmax Level 05/16 13.44 0.84 77 102.8 05/17 05/18 23.38 13.29 0.89 0.61 72 106 97.9 98.8 18.4 05/19 12.25 0.46 140 97.5 Other Antibiotics: - Ceftriaxone Cultures/Tests: - Blood (05/16): gram positive cocci in clusters - Blood (05/17): staph spp - Urine (05/16): GPR/GPC, gross contamination - Covid 19 (05/16): negative - Influenza A/B (05/16): negative Kinetics Assessment: Updated 05/18 Loading dose: 2000 mg at 02:00 05/17/2024. Regimen: 1250 mg IV every 12 hours. Start time: 08:49 on 05/19/2024 Exposure target: AUC24 (range)400-600 mg/L.hr AUC24,ss: 485 mg/L.hr Probability of AUC24 > 400: 86 % Ctrough,ss: 12.3 mg/L Probability of Ctrough,ss > 20: 3 % Probability of nephrotoxicity (Lodise CHRIS 2008): 8 % A/P: Pharmacy was consulted to dose vancomycin for this patient's sepsis by Dr. Fung. Patient is transferred to this facility from [facility] where patient presented with chest pain and also noted to have UTI. Initial blood culture has now resulted with gram positive cocci in clusters, repeat cultures with staph spp. ID consulted. Vancomycin was initiated with a 2000 mg loading dose. labs back this afternoon and updated above. Renal function improved, will adjust to 1250 mg Q12H basedon the patient's age, weight, and renal function. Initial level of 18.4 mcg/mL. Will continue current regimen per kinetics above. Pharmacy will continue to follow and adjust accordingly. Thank you for the consult. 05/19/2024: Labs/results updated. No indication for adjustment at this time. Will order a level for05/20 with AM labs due to improving renal function. Pharmacy will continue to monitor labs and adjust dose per protocol. RDS MANAGEMENT TECHNICIAN * Mansoor Lema MD - 05/18/2024 5:22 PM CST Hospitalist Daily Progress Note Patient: Avila Crocker (:1945) Room: [place] [address] Date of admission: 05/16/2024 No of days in hospital: 2 Subjective Interval Hx: Pt is A&Ox1, baseline. He has no complaints. He is afebrile overnight. Objective Filed Vitals: 05/18/24 0238 05/18/24 0751 05/18/24 1211 05/18/24 1517 BP: (!) 142/79 133/58 (!) 160/78 (!) 138/90 Pulse: (!) 58 (!) 59 (!) 58 (!) 58 Resp: 16 16 16 Temp: 98.1 ??F (36.7 ??C) 98.2 ??F (36.8 ??C) 98.8 ??F (37.1 ??C) 97.3 ??F (36.3 ??C) TempSrc: Oral Oral SpO2: 100% 99% 100% 100% Weight: Height: Physical Exam: Gen: Alert, cooperative, A&Ox1 baseline Head: Normocephalic, without obvious abnormality, atraumatic Eyes: Conjunctivae/corneas clear, EOMI Nose: Mucosa normal. No drainage. Throat:Moist mucous membranes, Neck: trachea midline Resp: CTAB, no wheezes/rales/rhonchi CV: RRR, S1S2, No M/R/G Abd: S/NT/ND, BS+, no bruits Ext: No clubbing, cyanosis, edema Skin: Skin color, texture, turgor normal. No rashes or lesions Neuro: No focal deficits Intake/Output 24H Total: Intake/Output Summary (Last 24 hours) at 05/18/2024 1723 Last data filed at 05/18/2024 1517 Gross per 24 hour Intake 200 ml Output 300 ml Net -100 ml Medication atorvastatin 80 mg Oral Nightly at bedtime cefTRIAXone 1 g Intravenous Q24H dutasteride 0.5 mg Oral Daily insulin lispro 0-14 Units Subcutaneous TID AC And insulin lispro 0-7 Units Subcutaneous Nightly at bedtime [START ON 05/19/2024] vancomycin 1,250 mg Intravenous Q12H vancomycin pharmacy to dose Intravenous See Admin Instructions PRN Meds: acetaminophen, kyudayree-ohmkixiq-pyfoirlkmqz, ondansetron, polyethylene glycol Labs: Recent Labs Lab 05/16/24 1133 05/17/24 0610 05/18/24 1219 WBC 13.44* 23.38* 13.29* RBC 4.14* 3.38* 3.87* HGB 11.0* 9.1* 10.3* HCT 36.0* 29.4* 34.2* MCV 87.0 87.0 88.4 MCH 26.6* 26.9* 26.6* MCHC 30.6* 31.0* 30.1* PLT 256 169 187 RDW 15.9* 16.4* 15.9* MPV 10.0 10.3 11.6 PERNEU 93.7 -- 84.5 PERLYM 4.7 -- 10.3 PERMON 0.6 -- 3.8 PEREOS 0.4 -- -- PERBASO 0.1 -- -- NEUC 12.59* 21.74* 11.24* LYMC 0.63* 0.70* 1.37 MONOC 0.08 0.94* 0.51 EOSC 0.06 -- 0.06 BASOC 0.01 -- 0.02 DTYPE -- MANUAL DIFFERENTIAL AUTOMATED DIFFERENTIAL Recent Labs Lab 05/16/24 1133 05/17/24 0610 05/18/24 1219 NA 141 135* 136 K 4.7 3.7 3.9 CL 102 104 106 CO2 30.3 27.0 24.4 AGAP 8.7 4.0 5.6 BUN 20 28* 21* CR 0.84 0.89 0.61* BUNCREATININ -- 31.3* 34.7* GLU 167* 199* 200* CA 8.9 8.1* 8.5 TP 7.6 -- -- ALB 2.9* -- -- TBIL 0.8 -- -- ALKP 97 -- -- AST 14* -- -- ALT 16 -- -- Recent Labs Lab 05/17/24 0610 HGBA1C 7.7* TSH 2.810 Recent Labs Lab 05/17/24 0610 INR 1.6 Recent Labs Lab 05/16/24 1133 05/17/24 0610 TROP 27 50 Recent Labs Lab 05/16/24 1133 05/16/24 1333 05/16/24 1545 LACTICACID 4.2* 3.3* 2.8* No results for input(s): PH , PCO2 , PO2 , [id number] , BICARBWB , BASEDEFICIT , BASEEXCESS in the last 168 hours. Results for orders placed or performed during the hospital encounter of 02/17/23 URINALYSIS, AUTO, COMPLETE Collection Time: 02/17/23 10:00 AM Result Value Ref Range COLOR (U) LIGHT YELLOW TRANSPARENCY CLEAR SPECIFIC GRAVITY (U) 1.010 1.003 - 1.030 U PH 6.5 5.0 - 9.0 LEUKOCYTES (U) NEGATIVE NEGATIVE NITRITES NEGATIVE NEGATIVE PROTEIN RANDOM (U) NEGATIVE NEGATIVE GLUCOSE (U) NORMAL NORMAL KETONES MG/DL (U) NEGATIVE NEGATIVE UROBILINOGEN NORMAL NORMAL MG/DL BILIRUBIN (U) NEGATIVE NEGATIVE BLOOD (U) NEGATIVE NEGATIVE MUCUS PRESENT HYALINE CASTS 0-5 WBC/HPF 0-5 0 - 5 /HPF COMMENT (U) URINE RESULTS Imaging ECG 12 lead Result Date: 05/17/[address] 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 [address] Examination: XR CHEST PORTABLE Exam time: 05/16/2024 11:43 AM Clinical history: Chest pain, fever Comparison: 12/09/2023 Technique: AP chest Findings: Borderline heart size similar to previous study. Left subclavian transvenous pacerlead placements are unchanged. No pulmonary vascular congestion. There is no acute pulmonary parench ymal opacity. No pleural effusion. No hyperinflation. IMPRESSION: 1) No radiographic evidence of active disease the chest. Ordered By: ROBERT WATKINS Interpreted By: Flo Gardner MD, 05/16/2024 12:[address] ABD+PEL W IV CON ONLY Result Date: 05/09/[address] [place] [address] INDICATION: Umbilical hernia, abdominal pain, concern for bowel obstruction COMPARISON: CT abdomen/pelvis, 09 Dec 2023 TECHNIQUE: CTimages of the abdomen and pelvis were obtained following the administration of IV contrast. Radiation dose reduction technique utilized. FINDINGS: Limited visualization of the lower thorax reveals noacute abnormality. Partially visualized cardiac pacemaker leads. Mild to moderate coronary atherosclerosis. Benign calcified pulmonary granulomata. 0.7 cm pulmonary nodule in the lingula, axial image11. Unchanged elevation of the right hemidiaphragm. Beam hardening artifact from upper extremities somewhat degrades evaluation of the upper abdomen. Limited assessment of the hepatic parenchyma. Gallbladder within normal limits. Main portal vein, splenic vein, SMV, and SMA enhance. Atherosclerosisof the abdominal and pelvic vasculature. No retroperitoneal lymphadenopathy. Moderate rectal stool burden. Normal appearing appendix. Mural edema in the sigmoid colon suggests nonspecific colitis. Liquid present throughout the small bowel and colon, consistent with diarrheal state. Mucosal enhancement pattern in the proximal jejunum compatible with nonspecific enteritis. Additional focus of muraledema in a loop of small bowel in [...] 1. Findings compatible with nonspecific enteritis/colitis and diarrheal state. No evidence of bowel obstruction, as clinically queried. 2. Guerra catheter bulb appears in low lying position within the enlarged prostate. Recommend repositioning. 3. 1.4 cm hypoenhancing focus in the pancreatic tail. This could possibly represent benign focal fatty infiltration, though recommend nonemergent further evaluation with pancreatic protocol MRI to exclude cyst or mass. 4. Small fat-containing umbilical hernia without evidence of complication. 5. Mild anasarca, more pronounced inferiorly. 6. 0.7 cm pulmonary nodule in the lingula. Recommend follow-up chest CT in 6-12 months. 7. Other chronic/nonurgent findings, as above. Referred By: Interpreted By: Rj Mendoza MD, 05/09/2024 8:18 PM EKG: No results found for this visit on 05/16/24. Assessment/Plan: Hematuria Sepsis Bacteremia Patient admitted to the telemetry unit Evident with systemic inflammatory response with white count 13, fever 102.8F Source: , bacteremia Lactic acid 4.2, improved to 2.8 05/16 blood culture +gram positive cocci in clusters IV Rocephin/Vanc (05/16- ) WBC uptrending 13>23 ID consulted, appreciate recs 05/17 blood culture is positive again for staph 05/18 cont with Vanc, Ceftriaxone. WBC 13.29. plan for echo to check for IE. 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 Repeat blood culture tomorrow CAUTI Patient urine culture on 12/12/2023 showed PROVIDENCIA STUARTII susceptible to Rocephin Patient started on Rocephin, continue In ED hematuria was noted, currently urine looks clear Patient had a CT abdomen and pelvis on 05/09/2024 which recommended repositioning Guerra catheter asthe bulb was laying within the enlarged prostate, will clarify when was the last time the Guerra wasexchanged Urology consulted. Recommends monitoring for gross hematuria. If this develops, replace Guerra with a 22Fr 3-way catheter (currently tamara urine). Otherwise, continue monthly catheter exchanges at nursing facility. No plan for inpatient urological intervention at this time 05/16/24 Urine culture GPC Continue IV rocephin/vanc as above A-fib On anticoagulation with Eliquis, will hold with drop in hemoglobin and monitoring for hematuria Will hold BB for now with initial low BP Type 2 diabetes mellitus Holding metformin Accu-Cheks and insulin protocol Dyslipidemia Continue statin Anemia Hemoglobin 11 > 9 Baseline hgb 9-10 Hx of LISA Continue to monitor Transfuse hemoglobin <7 HTN Holding home meds with soft pressures initially Resume as clinically indicated Hypomagnesemia Replace with IV mag Cardiomyopathy With recovered EF 55-60% on 07/27/2023 Resume BB and ACEI once pressures improve Dementia Alert and oriented to self only - DVT prophylaxis: SCDs for now. Holding eliquis - Code status: full code MANSOOR LEMA MD 05/18/2024 5:23 PM RDS MANAGEMENT TECHNICIAN * Amada Uribe, RD - 05/18/2024 2:11 PM CST CLINICAL DIETITIAN ASSESSMENT NUTRITION ASSESSMENT Past Medical History: Diagnosis Date A-fib ([facility]) BPH (benign prostatic hyperplasia) CHF (congestive heart failure) ([facility]) Coronary artery disease Dementia without behavioral disturbance ([facility]) Diabetes mellitus ([facility]) Disorder of prostate HLD (hyperlipidemia) Hyperlipidemia Hypertension Pacemaker 09/10/2022 Respiratory failure ([facility]) Sick sinus syndrome ([facility]) Urinary retention Initial History (05/18/2024): Registered Dietitian (RD) completing an initial assessment secondary to MST score of 3. Patient is a 79-year-old male admitted secondary to Hematuria [R31.9]. Pt transferred to [facility] with UTI, sepsis. Weight history (05/18/2024): Wt Readings from Last 10 Encounters: 05/16/24 84 kg (185 lb 3 oz) 05/16/24 77.6 kg (171 lb) 05/09/24 81.6 kg (180 lb) 03/02/24 79 kg (174 lb 3.2 oz) 12/30/23 83 kg (183 lb) 12/11/23 86.1 kg (189 lb 12.8 oz) 12/09/23 102.1 kg (225 lb) 11/27/23 102.1 kg (225 lb) 08/21/23 101.2 kg (223 lb) 08/01/23 101.2 kg (223 lb 3 oz) Pt with weight loss noted over last 9 months; 17.2 kg = 17%, significant for time frame. Weight over last 3 months has fluctuated between 79 kg and 84 kg. Diet history (05/18/2024): Pt confused and unable to provide further information. Food allergies/intolerances: Allergy to Tomatoes listed in [employer] and [employer] systems. Cultural/Episcopalian food preferences: None reported in EHR Food Insecurity: No Food Insecurity (05/17/2024) Hunger Vital Sign Worried About Running Out of Food in the Last Year: Never true Ran Out of Food in the Last Year: Never true Cardiorespiratory: in room air Neuro: Patient noted to be confused per nurse documentation Edema: no edema noted per EHR GI: abdomen WDL with positive bowel sounds per grain elevator motor starter; no BM documented this admission Chewing/swallowing problems: Yes; HERBOLOGIST recommended regular solids and mildly thick liquids Skin: intact and no breakdown noted Nutrition-focused physical findings: Deferred at this time due to pt confused. Labs: Reviewed with the following abnormalities identified: Mg low at 1.3, Na low at 135 Recent Labs Lab 05/16/24 2311 05/17/24 0609 05/17/24 1033 05/17/24 1539 05/17/24 1944 05/18/24 0549 05/18/24 1125 GLUCOSEPOC 284* 188* 186* 198* 189* 176* 227* Recent Labs Lab 05/16/24 1133 05/17/24 0610 NA 141 135* K 4.7 3.7 MAGNESIUM -- 1.3* BUN 20 28* CR 0.84 0.89 GFREST 88* 87* GLU 167* 199* HGB A1C Date Value Ref Range Status 05/17/2024 7.7 (H) <5.7 % Final Comment: ADA GUIDELINES 2010 5.7 TO 6.4% INCREASED RISK OF DIABETES > OR = 6.5% CONSISTENT WITH DIABETES Meds: Reviewed. No nutrition-related concerns noted at this time. atorvastatin 80 mg Oral Nightly at bedtime cefTRIAXone 1 g Intravenous Q24H dutasteride 0.5 mg Oral Daily insulin lispro 0-14 Units Subcutaneous TID AC And insulin lispro 0-7 Units Subcutaneous Nightly at bedtime vancomycin 1,500 mg Intravenous Q18H vancomycin pharmacy to dose Intravenous See Admin Instructions Anthropometrics: Admission weight: 84 kg (Date: 05/16/24; Method: Bed) Last 5 Recorded Weights 05/16/242131 Weight: 84 kg (185 lb 3 oz) Weight status: No new weights to assess at this time Height: 182.9 cm Actual Body Weight (ABW): 84 kg [place] Body Weight (IBW): 80.8 kg (ABW is 104% of IBW) Body Mass Index (BMI): 25.12 kg/m?? (WNL for age) Estimated Nutrient Needs: Calories: 2794-0900 kcal/day based on 20-23 kcal/kg, using ABW Protein: 100-126 gm/day based on 1.2-1.5 gm/kg, using ABW Carbohydrate: 189-217 gm/day based on 45% of total kcal from carbohydrate Fluid: 1500 mL/day based on minimum intake recommendation for older adults Current diet order: Diet Carb Controlled Appropriate; 60g/meal; Low Cholesterol; 2 GM NA; 2-Mildly Thick Current diet appropriate? Yes Current intake sufficient to meet nutritional needs? No; PO intake of meals has not been consistently reported in EHR. However, per review of [employer], patient has been ordering an average of 1114 kcal/day (66% of estimated needs) and 65 gm/day protein (65% of estimated needs) over the past 2 days.Fluid intake appears adequate for hydration. Pain affecting PO intake? No Nutrition Education: unable to assess education needs at this time NUTRITION DIAGNOSIS Inadequate energy intake related to decreased ability to consume as evidenced by pt ordering <75% estimated nutrient needs per 2 day [employer] review. Unintended weight loss related to decreased ability to consume sufficient energy as evidenced by 17% weight loss x 9 months. NUTRITION INTERVENTION Nutrition prescription: Carbohydrate controlled diet (60 gm CHO/meal), Dysphagia diet with food/fluid consistency per HERBOLOGIST recommendation, and Low sodium diet (limit to 2 gm sodium daily) + ONS (Mighty Shake BID) Plan: 1. Continue current diet order as tolerated and encourage good PO intake of meals. 2. Initiate ONS of Mighty Shake BID with breakfast and lunch. 3. Labs: BMP, Mg and Phos weekly. Replete electrolytes as indicated. 4. Weigh patient weekly. Discharge nutrition plan: Discharge needs assessed. Will provide/update discharge instructions as needed. MONITORING/EVALUATION 05/18/2024 Goals: 1. PO intake will meet at least 75% of estimated kcal/protein needs based on 3- day average intake per review of EHR and [employer] at follow up. 2. Weight stable within 2% of current weight (84 kg) at follow up. AMADA URIBE RD, LDN RDS MANAGEMENT TECHNICIAN RDS MANAGEMENT TECHNICIAN * Jacobo Sam, PharmD - 05/18/2024 12:39 PM CST Images from the original note were not included. Vancomycin Pharmacy to Dose Day #2 Ordering Provider: Kenton Indication: Sepsis Ht/Wt: 182.9 cm/84 kg AUC goal: 400 - 600 Date WBC SCr CrCl Tmax Level 05/16 13.44 0.84 77 102.8 05/17 05/18 23.38 13.29 0.89 0.61 72 106 97.9 98.8 18.4 Other Antibiotics: - Ceftriaxone Cultures/Tests: - Blood (05/16): gram positive cocci in clusters - Blood (05/17): staph spp - Urine (05/16): GPR/GPC, gross contamination - Covid 19 (05/16): negative - Influenza A/B (05/16): negative Kinetics Assessment: Updated 05/18 Loading dose: 2000 mg at 02:00 05/17/2024. Regimen: 1250 mg IV every 12 hours. Start time: 08:49 on 05/19/2024 Exposure target: AUC24 (range)400-600 mg/L.hr AUC24,ss: 485 mg/L.hr Probability of AUC24 > 400: 86 % Ctrough,ss: 12.3 mg/L Probability of Ctrough,ss > 20: 3 % Probability of nephrotoxicity (Lodise CHRIS 2008): 8 % A/P: Pharmacy was consulted to dose vancomycin for this patient's sepsis by Dr. Fung. Patient is transferred to this facility from [facility] where patient presented with chest pain and also noted to have UTI. Initial blood culture has now resulted with gram positive cocci in clusters, repeat cultures with staph spp. ID consulted. Vancomycin was initiated with a 2000 mg loading dose followed by 1500 mg q18h based on the patient's age, weight, and renal function. Initial level of 18.4 mcg/mL. Will continue current regimen per kinetics above. Awaiting labs from today. Pharmacy will continue to follow and adjust accordingly. Thank you for the consult. Addendum: labs back this afternoon and updated above. Renal function improved, will adjust to 1250 mg Q12H. RDS MANAGEMENT TECHNICIAN RDS MANAGEMENT TECHNICIAN RDS MANAGEMENT TECHNICIAN * Gaby Garcia RN - 05/18/2024 12:20 PM CST 05/18/24 1220 Interdisciplinary Group Conference Team Members Present Physician;Case/Care management;Nursing;Pharmacy Physician present for group conference Lema Patient Current Status Paient current status Inpatient Barriers to Discharge Inpatient Review Barriers to Discharge Inpatient Administering IV meds;Other (Comment) Other follow up (Comment) IV Abx, pending cultures, urology recs Patient expects to be discharged to Patient expects to be discharged to: [facility]( SNF) Per IDR's patient to be discharged in 1-2 days pending cultures and urology recommendations. RDS MANAGEMENT TECHNICIAN * Hermelinda Blanco, PT - 05/18/2024 10:27 AM CST 05/18/24 1020 Therapy Visit Ordering Provider Lema Subjective RM 444: PT orders received and EMR reviewed. RN reports that the pt is extremely confused at this time and not appropriate to work with PT. PT will follow up at a later date/time. Reason for admission Hematuria, sepsis Acute Inpatient PT Time Calculation PT Start Time 1020 RDS MANAGEMENT TECHNICIAN * Cari Ventura, OTR - 05/18/2024 10:25 AM CST 05/18/24 1000 Therapy Visit Reason for admission Hematuria, sepsis Ordering Provider Lema Acute Inpatient OT Time Calculation OT Start Time 1000 Subjective Subjective Rm [id number] OT orders received. EMR reviewed. Spoke with nursing reports pt is very confused/not appropriate for OT eval. Will follow up at a later time/date RDS MANAGEMENT TECHNICIAN * Chitra Schwartz NP - 05/18/2024 9:02 AM CST Images from the original note were not included. 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 Indwelling Guerra intact, draining tamara urine, no hematuria Allergies Allergen Reactions Tomato Diarrhea Objective: Filed Vitals: 05/17/24 1942 05/17/24 2249 05/18/24 0238 05/18/24 0751 BP: 139/73 118/65 (!) 142/79 133/58 Pulse: (!) 118 60 (!) 58 (!) 59 Resp: 20 16 Temp: 98.1 ??F (36.7 ??C) 98.1 ??F (36.7 ??C) 98.2 ??F (36.8 ??C) TempSrc: Oral SpO2: 92% 100% 99% Weight: Height: I/O last 3 completed shifts: In: 100 [P.O.:100] Out: 300 [Urine:300] PHYSICAL EXAM General: Alert, elderly, appears stated age Resp: EWOB, symmetric chest rise CV: warm/dry extremities Abdomen: Soft, non-tender, non-distended : Guerra clear tamara urine Extremities:Extremities nl, atraumatic, no cyanosis or edema Psych: Affect and behavior agitated Labs: Recent Labs Lab 05/16/24 1133 05/17/24 0610 WBC 13.44* 23.38* RBC 4.14* 3.38* HGB 11.0* 9.1* HCT 36.0* 29.4* MCV 87.0 87.0 MCH 26.6* 26.9* MCHC 30.6* 31.0* PLT 256 169 RDW 15.9* 16.4* MPV 10.0 10.3 PERNEU 93.7 -- PERLYM 4.7 -- PERMON 0.6 -- PEREOS 0.4 -- PERBASO 0.1 -- NEUC 12.59* 21.74* LYMC 0.63* 0.70* MONOC 0.08 0.94* EOSC 0.06 -- BASOC 0.01 -- DTYPE -- MANUAL DIFFERENTIAL Recent Labs Lab 05/16/24 1133 05/17/24 0610 NA 141 135* K 4.7 3.7 CL 102 104 CO2 30.3 27.0 AGAP 8.7 4.0 BUN 20 28* CR 0.84 0.89 BUNCREATININ -- 31.3* GLU 167* 199* CA 8.9 8.1* TP 7.6 -- ALB 2.9* -- TBIL 0.8 -- ALKP 97 -- AST 14* -- ALT 16 -- Recent Labs Lab 05/17/24 0610 INR 1.6 Assessment: - CAUTI with gram-positive bacteremia and severe sepsis - No gross hematuria on exam - Unknown if urine for UA/culture was collected from old indwelling catheter, does not appear to have been exchanged - Benign prostatic hyperplasia with chronic indwelling Guerra catheter - No new labs available for review this morning, ?agitation Recommendations: Antibiotic management per primary team Monitor for gross hematuria; if develops, replace indwelling Guerra with 22Fr 3- way catheter (currently tamara urine) Patient is a poor surgical candidate for prostate intervention; continue monthly catheter changes at his nursing facility No plan for inpatient urologic intervention Inpatient urology signing off. Please call with questions. Chitra Schwartz APRN RDS MANAGEMENT TECHNICIAN * Kalani Scales PharmD - 05/18/2024 8:19 AM CST [facility] [employer] BCID2 Panel Result - Pharmacy Date/Time of alert result: 05/18/2024 8:11 AM Organism isolated: Other Staphylococcus spp. (No S. aures, S. epidermidis, or S. lugdunensis detected) in 1 bottle(s) Antimicrobial resistance markers present: None Active antibiotic orders prior to intervention: Vancomycin + Rocephin Date/Time of conversation with MD if necessary: Not indicated - current coverage adequate Result initially called by jeancarlos as S. aureus - chart updated w/ staph spp.- updated note to reflect change RDS MANAGEMENT TECHNICIAN RDS MANAGEMENT TECHNICIAN * Roxana Matamoros RN - 05/18/2024 3:56 AM CST Problem: Discharge Planning Goal: Knowledge of discharge instructions Outcome: Progressing Problem: Pain control/comfort Goal: Promote pain control/comfort Outcome: Progressing Problem: Skin integrity, Impaired-wound Goal: Absence of new skin breakdown Outcome: Progressing Goal: Evidence of wound healing Outcome: Progressing RDS MANAGEMENT TECHNICIAN * Marialuisa Granger PharmD - 05/17/2024 1:14 PM CST Vancomycin Pharmacy to Dose Day #1 (continued) Ordering Provider: Kenton Indication: Sepsis Ht/Wt: 182.9 cm/84 kg Initial drug level ordered: 05/17 @ 0900 AUC goal: 400 - 600 Individualized trough goal: 11.1 -15.1 mcg/mL Date WBC SCr CrCl Tmax Level 05/16 13.44 0.84 77 102.8 05/17 23.38 0.89 72 97.9 18.4 Other Antibiotics: - Ceftriaxone Cultures/Tests: - Blood (05/16): gram positive cocci in clusters - Blood (05/17): NG <24h - Urine (05/16): pending - Covid 19 (05/16): negative - Influenza A/B (05/16): negative Kinetics Assessment: Loading dose: 2000 mg at 02:00 05/17/2024. Regimen: 1500 mg IV every 18 hours. Start time: 20:00 on 05/17/2024 Exposure target: AUC24 (range)400-600 mg/L.hr AUC24,ss: 522 mg/L.hr Probability of AUC24 > 400: 97 % Ctrough,ss: 13.1 mg/L Probability of Ctrough,ss > 20: 3 % Probability of nephrotoxicity (Lodise CHRIS 2008): 8 % A/P: Pharmacy was consulted to dose vancomycin for this patient's sepsis by Dr. Fung. Patient is transferred to this facility from [facility] where patient presented with chest pain and also noted to have UTI. Initial blood culture has now resulted with gram positive cocci in clusters, repeat cultures are pending. Vancomycin was initiated with a 2000 mg loading dose followed by 1500 mg q18h based on the patient's age, weight, and renal function. Initial level of 18.4 mcg/mL. Will continue current regimen per kinetics above. Pharmacy will continue to follow and adjust accordingly. Thank you for the consult. RDS MANAGEMENT TECHNICIAN * Shauna Gregg, HERBOLOGIST STUDENT - 05/17/2024 10:44 AM CST SPEECH THERAPY BEDSIDE SWALLOW EVALUATION Time in: 9:46 Time out: 10:21 Episode of Care: Initial evaluation Date of Onset: 05/16/2024 Diagnosis: Hematuria Referring Physician: Dr. Fung Subjective: Pt is an 79 y/o male referred to our services for swallow evaluation. Pt was admitted to ER with chest pain and UTI. While admitted, pt failed nursing bedside screen by exhibiting s/s of aspiration with 3 oz water test. Pt has hx of HTN, DM, CHF, a-fib, and dementia. Pt is alert, awake, and oriented to person and date. Pt reports no issues with swallowing and denies any pain. Pt is positioned upright for our exam and in NPO until our evaluation. Past Medical History: Diagnosis Date A-fib ([facility]) BPH (benign prostatic hyperplasia) CHF (congestive heart failure) ([facility]) Coronary artery disease Dementia without behavioral disturbance ([facility]) Diabetes mellitus ([facility]) Disorder of prostate HLD (hyperlipidemia) Hyperlipidemia Hypertension Pacemaker 09/10/2022 Respiratory failure ([facility]) Sick sinus syndrome ([facility]) Urinary retention Objective: ORAL PHASE: Oral cavity is clear. Pt has top dentures, no dentition on bottom. Tongue ROM and movement are WFL.Slight palate elevation is observed and symmetrical. Pt is given ice chips, thin liquids, mildly thick liquids, puree, soft solids, and regular solids. Pt demonstrates lip seal across spoon, straw and cup sip with occasional verbal cue. Bolus manipulation is efficient with liquids and purees, slower with solids. Pt exhibits mashing-chewing pattern with soft and regular solids due to status of dentition, but appears to be functional for pt. Transit time is timely. No oral residue observed after trials. PHARYNGEAL PHASE: The pharyngeal phase is limited at the bedside and cannot diagnose aspiration. Laryngeal movement is observed across trials. Pt exhibits gurgly/wet vocal quality after 5/5 thin liquid trials via cup sip and straw, pt is able to demonstrate cued throat clear and cough. Vocal quality remains clear after 8/8 mildly thick trials. No coughing or choking observed with remaining trials. Pt exhibits double swallow most times with liquids and purees, and piecemeal swallow with soft and regular solids. Assessment: Suspected oral/pharyngeal dysphagia. Pt appears to have difficulty tolerating thin liquids via cup and straw sip. Plan: Recommend regular/mildly thick liquids, straw ok. Continue meds as tolerated. Skilled ST to follow up next 1-2 business days with diet tolerance and possible upgrade. Relayed results to RN and MD. Appreciate this consult. Cosigned by Kamilla Padron HERBOLOGIST at 05/17/2024 11:54 AM RECORDS MANAGEMENT TECHNICIAN RDS MANAGEMENT TECHNICIAN RDS MANAGEMENT TECHNICIAN * Gaby Garcia RN - 05/17/2024 9:16 AM CST 05/17/24 0914 Referral Data Source of Information Other Family Members Patient Information Primary Caregiver [facility] facility Current living Situation Other (Comment) Type of Residence [facility] Facility Support System Immediate family Are you employed? Retired Recent Hospitalization Recent Hospitalization within 30 days No Baseline ADL's Functional Status Moderate assistance Active DME Walker Behavior Confused;Cooperative;Oriented Communication Talks;Understands Burmese;Understands speaking DC screening tool This is a screening tool it does not take the place of a physical or occupational therapy evaluation. The screening is to screen the patient for what services and destination would be beneficial for patient for next level of care Conversation with the patient/family Will the patient be returning to prior living situation with no new identified needs? Yes Based on the screening the DC plan for consideration is: Patient expects to be discharged to: [facility]( SNF) Adequate Resources Available Adequate Resources Yes NCM performed telephone interview with daughter Sherri , verified patient's name and : Support: children Home: LT at [facility] Ambulation: Reports moderate assist prior to admission. DME products: walker Medical Devices: ADLs: Reports moderate assist prior to admission. Transport Home: ambulance Skin/Bladder/Bowel: No deficits reported A/O: Patient is alert, has dementia Communication: Patient can communicate without deficits. Home Health: none Occupation: retired Pharmacy: Facility pharmacy Financial Concerns: No financial concerns reported PCP/Insurance Plan: Abdon Mendoza/Medicare/Medicaid Discharge needs: RNCM will follow case daily and will continuously evaluate discharge needs based on recommendations and treatment course. Left vm for Sherri at [facility] in regards to patients return. Awaiting call back. RDS MANAGEMENT TECHNICIAN * Erika Mtz MD - 05/17/2024 9:12 AM CST Hospitalist Daily Progress Note Subjective Patient seen and examined at bedside, resting comfortably. No acute complaints. He says that he is frustrated that he has another UTI. Denies chest pain, shortness of breath, abdominal pain, nausea, vomiting, swelling. Objective Filed Vitals: 05/16/24 2132 05/16/24 2314 05/17/24 0447 05/17/24 0728 BP: 99/61 91/56 96/61 102/64 Pulse: 65 60 60 (!) 59 Resp: 12 12 12 14 Temp: 98.1 ??F (36.7 ??C) 97.7 ??F (36.5 ??C) 97.7 ??F (36.5 ??C) 97.9 ??F (36.6 ??C) TempSrc: Axillary Oral Axillary SpO2: 98% 100% 100% 98% Weight: 84 kg (185 lb 3 oz) Height: 1.829 m (6') Intake/Output 24H Total: No intake or output data in the 24 hours ending 05/17/24 0912 Physical Exam: General: No acute distress, breathing comfortably on room air. Eyes: Extraocular movements intact ENT: Neck supple, Septum is midline. Hard of hearing Lungs: Clear to auscultation bilaterally, No wheezes, No crackles Cardiovascular: Regular rate rhythm, S1 and S2 normal, No murmurs Abdomen: Soft, nondistended, Nontender, Bowel sounds observed Extremities: no lower extremity edema. Neurological: Alert, awake, oriented x1, No gross neuro deficit Skin: Skin color, texture, turgor normal. No rashes or lesions Medications cefTRIAXone 1 g Intravenous Q24H insulin lispro 0-14 Units Subcutaneous TID AC And insulin lispro 0-7 Units Subcutaneous Nightly at bedtime vancomycin 1,500 mg Intravenous Q18H vancomycin pharmacy to dose Intravenous See Admin Instructions acetaminophen, njmnzijri-dfoofzdg-pkljopeqnlv, ondansetron, polyethylene glycol Labs, Imaging, Other Studies Recent Labs Lab 05/16/24 1133 05/17/24 0610 WBC 13.44* 23.38* RBC 4.14* 3.38* HGB 11.0* 9.1* HCT 36.0* 29.4* MCV 87.0 87.0 MCH 26.6* 26.9* MCHC 30.6* 31.0* PLT 256 169 RDW 15.9* 16.4* MPV 10.0 10.3 PERNEU 93.7 -- PERLYM 4.7 -- PERMON 0.6 -- PEREOS 0.4 -- PERBASO 0.1 -- NEUC 12.59* 21.74* LYMC 0.63* 0.70* MONOC 0.08 0.94* EOSC 0.06 -- BASOC 0.01 -- DTYPE -- MANUAL DIFFERENTIAL Recent Labs Lab 05/16/24 1133 05/17/24 0610 NA 141 135* K 4.7 3.7 CL 102 104 CO2 30.3 27.0 AGAP 8.7 4.0 BUN 20 28* CR 0.84 0.89 BUNCREATININ -- 31.3* GLU 167* 199* CA 8.9 8.1* TP 7.6 -- ALB 2.9* -- TBIL 0.8 -- ALKP 97 -- AST 14* -- ALT 16 -- Recent Labs Lab 05/17/24 0610 HGBA1C 7.7* TSH 2.810 Recent Labs Lab 05/17/24 0610 INR 1.6 Recent Labs Lab 05/16/24 1133 05/17/24 0610 TROP 27 50 Recent Labs Lab 05/16/24 1133 05/16/24 1333 05/16/24 1545 LACTICACID 4.2* 3.3* 2.8* No results for input(s): PH , PCO2 , PO2 , [id number] , BICARBWB , BASEDEFICIT , BASEEXCESS in the last 168 hours. Results for orders placed or performed during the hospital encounter of 02/17/23 URINALYSIS, AUTO, COMPLETE Collection Time: 02/17/23 10:00 AM Result Value Ref Range COLOR (U) LIGHT YELLOW TRANSPARENCY CLEAR SPECIFIC GRAVITY (U) 1.010 1.003 - 1.030 U PH 6.5 5.0 - 9.0 LEUKOCYTES (U) NEGATIVE NEGATIVE NITRITES NEGATIVE NEGATIVE PROTEIN RANDOM (U) NEGATIVE NEGATIVE GLUCOSE (U) NORMAL NORMAL KETONES MG/DL (U) NEGATIVE NEGATIVE UROBILINOGEN NORMAL NORMAL MG/DL BILIRUBIN (U) NEGATIVE NEGATIVE BLOOD (U) NEGATIVE NEGATIVE MUCUS PRESENT HYALINE CASTS 0-5 WBC/HPF 0-5 0 - 5 /HPF COMMENT (U) URINE RESULTS Imaging ECG 12 lead Result Date: 05/17/[address] [place] [id number] Test Date: 2024-05-16 Pat Name: AVILA CROCKER Department: 3 Room: EXAM 5 Gender: Male Vehicle Insurance Agent: : [id number] Requested By: ROBERT WATKINS Order Number: [id number] Reading MD: Martin Blue Measurements Intervals [place] Rate: 70 P: NE: 0 QRS: 255 QRSD: 154 T: 86 QT: 400 QTc: 433 Interpretive Statements ELECTRONIC VENTRICULAR PACEMAKER ABNORMAL RHYTHM ECG RDS MANAGEMENT TECHNICIAN XR CHEST PORTABLE Result Date: 05/16/[address] [place] [id number] Examination: XR CHEST PORTABLE Exam time: 05/16/2024 11:43 AM Clinical history: Chest pain, fever Comparison: 12/09/2023 Technique: AP chest Findings: Borderline heart size similar to previous study. Left subclavian transvenous pacerlead placements are unchanged. No pulmonary vascular congestion. There is no acute pulmonary parench ymal opacity. No pleural effusion. No hyperinflation. IMPRESSION: 1) No radiographic evidence of active disease the chest. Ordered By: ROBERT WATKINS Interpreted By: Flo Gardner MD, 05/16/2024 12:[address] ABD+PEL W IV CON ONLY Result Date: 05/09/[address] [place] [address] INDICATION: Umbilical hernia, abdominal pain, concern for bowel obstruction COMPARISON: CT abdomen/pelvis, 09 Dec 2023 TECHNIQUE: CTimages of the abdomen and pelvis were obtained following the administration of IV contrast. Radiation dose reduction technique utilized. FINDINGS: Limited visualization of the lower thorax reveals noacute abnormality. Partially visualized cardiac pacemaker leads. Mild to moderate coronary atherosclerosis. Benign calcified pulmonary granulomata. 0.7 cm pulmonary nodule in the lingula, axial image11. Unchanged elevation of the right hemidiaphragm. Beam hardening artifact from upper extremities somewhat degrades evaluation of the upper abdomen. Limited assessment of the hepatic parenchyma. Gallbladder within normal limits. Main portal vein, splenic vein, SMV, and SMA enhance. Atherosclerosisof the abdominal and pelvic vasculature. No retroperitoneal lymphadenopathy. Moderate rectal stool burden. Normal appearing appendix. Mural edema in the sigmoid colon suggests nonspecific colitis. Liquid present throughout the small bowel and colon, consistent with diarrheal state. Mucosal enhancement pattern in the proximal jejunum compatible with nonspecific enteritis. Additional focus of muraledema in a loop of small bowel in [...] distention, likely secondary to chronic outlet obstruction. Geurra catheter bulb appears in low lying position within the enlarged prostate. No pelvic lymphadenopathy or significant free fluid. Chronic degenerative changes of the hips, pubic symphysis, and sacroiliac joints. Chronic multilevel degenerative changes of the spine. Small fat-containing umbilical hernia without evidence of complication. Mild anasarca, more pronounced inferiorly. IMPRESSION: 1. Findings compatible with nonspecific enteritis/colitis and diarrheal state. No evidence of bowel obstruction, as clinically queried. 2. Guerra catheter bulb appears in low lying position within the enlarged prostate. Recommend repositioning. 3. 1.4 cm hypoenhancing focus in the pancreatic tail. This could possibly represent benign focal fatty infiltration, though recommend nonemergent further evaluation with pancreatic protocol MRI to exclude cyst or mass. 4. Small fat-containing umbilical hernia without evidence of complication. 5. Mild anasarca, more pronounced inferiorly. 6. 0.7 cm pulmonary nodule in the lingula. Recommend follow-up chest CT in 6-12 months. 7. Other chronic /nonurgent findings, as above. Referred By: Interpreted By: Rj Mendoza MD, 05/09/2024 8:18 PM EKG: No results found for this visit on 05/16/24. Assessment & Plan Sepsis Bacteremia Patient admitted to the telemetry unit Evident with systemic inflammatory response with white count 13, fever 102.8. Source: Lactic acid 4.2, improved to 2.8 05/16 blood culture +gram positive cocci in clusters IV Rocephin/Vanc (05/16- ) WBC uptrending 13>23 ID consulted, appreciate recs 05/17 blood culture: [id number] CAUTI Patient urine culture on 12/12/2023 showed PROVIDENCIA STUARTII susceptible to Rocephin Patient started on Rocephin, continue In ED hematuria was noted, currently urine looks clear Patient had a CT abdomen and pelvis on 05/09/2024 which recommended repositioning Guerra catheter asthe bulb was laying within the enlarged prostate, will clarify when was the last time the Guerra wasexchanged Urology consulted. Recommends monitoring for gross hematuria. If this develops, replace Guerra with a 22Fr 3-way catheter (currently tamara urine). Otherwise, continue monthly catheter exchanges at nursing facility. No plan for inpatient urological intervention at this time 05/16/24 Urine culture pending Continue IV rocephin/vanc as above A-fib On anticoagulation with Eliquis, will hold with drop in hemoglobin and monitoring for hematuria Blood pressures currently soft. Will hold BB for now Type 2 diabetes mellitus Holding metformin Accu-Cheks and insulin protocol Dyslipidemia Continue statin Anemia Hemoglobin 11 > 9 Baseline hgb 9-10 Hx of LISA Continue to monitor Transfuse hemoglobin <7 HTN Holding home meds with soft pressures currently Resume as clinically indicated Hypomagnesemia Replace with IV mag Cardiomyopathy With recovered EF 55-60% on 07/27/2023 Resume BB and ACEI once pressures improve Dementia Alert and oriented to self only Other changes to plan of care to be made based on progress during hospitalization. All plans discussed with RN and patient/patient's family/facility coordinator. They are agreeable with plan and voiced understanding. - DVT prophylaxis: SCDs for now. Holding eliquis - Diet/IVF: cardiac - Code status: full code - Disposition: pending clinical improvement Erika Mtz MD 05/17/2024 9:12 AM RDS MANAGEMENT TECHNICIAN RDS MANAGEMENT TECHNICIAN * Hector Norton RN - 05/17/2024 3:42 AM CST Problem: Discharge Planning Goal: Knowledge of discharge instructions Outcome: Progressing Problem: Pain control/comfort Goal: Promote pain control/comfort Outcome: Progressing Problem: Skin integrity, Impaired-wound Goal: Absence of new skin breakdown Outcome: Progressing Problem: Skin integrity, Impaired-pressure injury/ulcer Goal: Absence of new skin breakdown Outcome: Progressing Problem: Skin integrity, at risk Goal: Absence of new skin breakdown Outcome: Progressing Problem: Moisture associated skin impairment Goal: Reduce moisture exposure Outcome: Progressing Goal: Absence of new skin breakdown Outcome: Progressing Problem: Infection - Risk of, Urinary Catheter-Associated Urinary Tract Infection Goal: Absence of Urinary Catheter Associated Urinary Tract (UTI) Infection Signs and Symptoms Outcome: Progressing Problem: Reduced risk for falls/injury Goal: Reduced Risk for Falls/Injury Outcome: Progressing Goal: Reduced Risk of Confusion (Acute vs Chronic) Outcome: Progressing Goal: Reduced Risk of Symptomatic Depression Outcome: Progressing Goal: Reduced Risk of Altered Elimination Outcome: Progressing Goal: Reduced Risk of Dizziness/Vertigo/Balance Outcome: Progressing Goal: Reduced Risk of Polypharmacy Outcome: Progressing Problem: Pain Goal: Patient's pain/discomfort is manageable Description: Assess and monitor patient's pain using appropriate pain scale. Collaborate with interdisciplinary team and initiate plan and interventions as ordered. Re-assess patient's pain level 30 - 60 minutes after pain management intervention. Outcome: Progressing Problem: Safety Goal: Patient will be injury free during hospitalization Description: Assess and monitor vitals signs, neurological status including level of consciousness and orientation. Assess patient's risk for falls and implement fall prevention plan of care and interventions per hospital policy. Ensure arm band on, uncluttered walking paths in room, adequate room lighting, call light and overbed table within reach, bed in low position, wheels locked, side rails up per policy, and non-skid footwear provided. Outcome: Progressing Problem: Daily Care Goal: Daily care needs are met Description: Assess and monitor ability to perform self care and identify potential discharge needs. Outcome: Progressing Problem: Psychosocial Needs Goal: Demonstrates ability to cope with hospitalization/illness Description: Assess and monitor patients ability to cope with his/her illness. Outcome: Progressing Goal: Collaborate with patient/family/caregiver to identify patient specific goals for this hospitalization Outcome: Progressing Problem: Discharge Barriers Goal: Patient's discharge needs are met Description: Collaborate with interdisciplinary team and initiate plans and interventions as needed. Outcome: Progressing Problem: Discharge Planning Goal: Knowledge of discharge instructions Outcome: Progressing Problem: Body Temperature - Risk of, Imbalanced Goal: Body temperature within specified parameters Outcome: Progressing Problem: Fluid Volume - Risk of, Imbalanced Goal: Absence of hypovolemia Outcome: Progressing Goal: Lactate, serum, within specified parameters Outcome: Progressing Goal: Procalciton within specified parameters Outcome: Progressing Problem: Gas Exchange - Impaired Goal: Absence of cyanosis signs and symptoms Outcome: Progressing Goal: Central or mixed venous oxygen saturation within specified parameters Outcome: Progressing Problem: Injury - Risk of, Abnormal Serum Glucose Level Goal: Glucose level within specified parameters Outcome: Progressing Problem: Infection - Risk of, Septic Shock Goal: Absence of infection signs and symptoms Outcome: Progressing Problem: Infection - Risk of, Ventilator-Associated Pneumonia Goal: Absence of pulmonary infection Outcome: Progressing Goal: Inspiratory plateau pressure within specified parameters Outcome: Progressing Problem: Mobility - Impaired Goal: Able to ambulate within specified parameters Outcome: Progressing Goal: Knowledge of need for increased mobility Outcome: Progressing Problem: Tissue Perfusion - Risk of, Altered Goal: Central venous pressure within specified parameters Outcome: Progressing Goal: Circulatory function, peripheral, within specified parameters Outcome: Progressing Goal: Normotensive Outcome: Progressing Problem: Venous Thromboembolism - Risk of Goal: Absence of venous thromboembolism Outcome: Progressing RDS MANAGEMENT TECHNICIAN * Estrella West PharmD - 05/17/2024 1:30 AM CST Vancomycin Pharmacy to Dose Day #1 Ordering Provider: [place]on Indication: Sepsis Ht/Wt: 182.9 cm/84 kg Initial drug level ordered: 05/17 @ 0900 AUC goal: 400 - 600 Individualized trough goal: 11.1 -15.1 mcg/mL Date WBC SCr CrCl Tmax Level 05/16 13.44 0.84 77 102.8 Other Antibiotics: - Ceftriaxone Cultures/Tests: - Blood (05/16): gram positive cocci in clusters - Blood (05/17): pending - Urine (05/16): pending - Covid 19 (05/16): negative - Influenza A/B (05/16): negative Kinetics Assessment: Loading dose: 2000 mg at 02:00 05/17/2024. Regimen: 1500 mg IV every 18 hours. Start time: 20:00 on 05/17/2024 Exposure target: AUC24 (range)400-600 mg/L.hr AUC24,ss: 521 mg/L.hr Probability of AUC24 > 400: 86 % Ctrough,ss: 13.1 mg/L Probability of Ctrough,ss > 20: 12 % Probability of nephrotoxicity (Lodise CHRIS 2008): 8 % A/P: Pharmacy was consulted to dose vancomycin for this patient's sepsis by Dr. Fung. Patient is transferred to this facility from [facility] where patient presented with chest pain and also noted to have UTI. Initial blood culture has now resulted with gram positive cocci in clusters, repeat cultures are pending. Vancomycin was initiated with a 2000 mg loading dose followed by 1500 mg q18h based on the patient's age, weight, and renal function. Initial level is scheduled at 0900 on 05/17. Pharmacy will continue to follow and adjust accordingly. Thank you for the consult. RDS MANAGEMENT TECHNICIAN * Talha Fung MD - 05/17/2024 1:05 AM CST Blood cultures drawn at [facility] ED showed gram-positive cocci in cluster, will start patient on IV Rocephin, repeat cultures in a.m. RDS MANAGEMENT TECHNICIAN documented in this encounter H&P Notes * Percy Landa MD - 05/23/2024 1:33 PM CST HISTORY AND PHYSICAL INTERVAL NOTE: I have reviewed Avila Crocker History & Physical which was performed within the past 30 days. After examining Avila Crocker, no change has occurred in the patient's condition since the H&P was completed. Informed Consent Discussion: Risks, benefits, alternatives as well as the consequences of not performing the surgery/procedure were discussed with the patient and/or family/personal account executive sales representative. Questions were answered and the patient/family/personal account executive sales representative verbalized understanding and desires to proceed. Previous Adverse Experience with Sedation, Analgesia, or Anesthesia? No Physical Exam: General: AAOx3, no acute distress HENT: MMM, no scleral icterus, EOM intact Cardiac: Normal S1/S2, no murmurs,gallops, or rubs Pulmonary: normal breath sounds bilaterally, no wheezing or crackles GI: normal bowel sounds in all 4 quadrants, abd soft, nontender, nondistended Neuro: CN II-XII intact ASA Classification: 2 Mallampati: NPO: after midnight Planned Sedation/Analgesic Agent(s): per anesthesia Planned Procedure(s): TATE Signed: Percy Landa MD RDS MANAGEMENT TECHNICIAN Source Note - Percy Landa MD - 05/21/2024 5:07 PM RECORDS MANAGEMENT TECHNICIAN Images from the original note were not included. [place], [place] [address] Cardiology Consult Note CC: bacteremia Consult requested by: hospitalist Primary hand tufter: Dr. Palomo ([place]) HPI Avila Crocker is a 79-year-old M transferred from [facility] 05/16 having presented with ?CP but foundto have hematuria and UTI. Since admission, found to have S aureas bacteremia. TTE with concern forendocarditis. Per RN, patient is A&Ox1 and has been agitated. 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 Please feel free to contact me with any further questions or concerns. Diagnostic studies 05/20/24 TTE The left ventricular size is [...] suspected, consider TATE . Technically challenging study PE: I/O last 3 completed shifts: In: 720 [P.O.:720] Out: 1300 [Urine:1300] Temp: [98.4 ??F (36.9 ??C)-100.2 ??F (37.9 ??C)] 98.8 ??F (37.1 ??C) Pulse: [59-60] 59 Resp: [18-22] 22 BP: (124-154)/(65-75) 140/71 Gen: sleeping, deferred awakening HEENT: atraumatic, normocephalic, PERRL, sclera anicteria, OP clear without exudate JVD: none Lungs: normal effort, CTAB Cor: RRR, no m/r/g Abd: soft, nontender, nondistended, normal BS Ext: warm and dry, no c/c/e Neuro: grossly intact Psych: normal affect Labs: Recent Labs Lab 05/19/24 0510 05/20/24 0518 05/21/24 0428 NA 138 141 141 K 3.6 4.1 3.8 CL 106 109 108 CO2 28.3 27.8 27.9 AGAP 3.7 4.2 5.1 BUN 16 16 18 CR 0.46* 0.52* 0.63* BUNCREATININ 34.9* 30.6* 28.7* GLU 145* 150* 194* CA 8.7 8.8 9.0 MAGNESIUM 1.5* 1.7* 1.6* Recent Labs Lab 05/16/24 1133 TP 7.6 ALB 2.9* TBIL 0.8 ALKP 97 AST 14* ALT 16 Recent Labs Lab 05/19/24 0510 05/20/24 0518 05/21/24 0428 WBC 12.25* 9.68 9.44 HGB 9.9* 10.7* 10.5* PLT 195 208 180 No results found for: CHOL , TRI , HDL , LDL Lab Results Component Value Date HGBA1C 7.7 (H) 05/17/2024 TSH 2.810 05/17/2024 Recent Labs Lab 05/16/24 1133 05/17/24 0610 TROP 27 50 Past Medical History: Diagnosis Date A-fib ([facility]) BPH (benign prostatic hyperplasia) CHF (congestive heart failure) ([facility]) Coronary artery disease Dementia without behavioral disturbance ([facility]) Diabetes mellitus ([facility]) Disorder of prostate HLD (hyperlipidemia) Hyperlipidemia Hypertension Incarcerated hernia 05/09/2024 Reduced in ED Pacemaker 09/10/2022 Respiratory failure ([facility]) Sick sinus syndrome ([facility]) Urinary retention Past Surgical History: Procedure Laterality Date CORONARY ART DIL,ONE VESSEL 2010 INSER COBIAN PACER XVENOUS ATRIAL 05/04/2013 PACEMAKER Social History Tobacco Use Smoking status: Former Current packs/day: 0.00 Average packs/day: 1 pack/day for 29.6 years (29.6 ttl pk-yrs) Types: Cigarettes, Pipe Start date: 02/14/1966 Quit date: 10/07/1995 Years since quittin.6 Smokeless tobacco: Never Substance Use Topics Alcohol use: No Drug use: No Family History Problem Relation Name Age of Onset Heart Attack Mother apixaban 5 mg Oral BID atorvastatin 80 mg Oral Nightly at bedtime carvedilol 6.25 mg Oral BID DAPTOmycin 10 mg/kg (Adjusted) Intravenous Q24H dutasteride 0.5 mg Oral Daily furosemide 40 mg Oral Daily insulin lispro 0-14 Units Subcutaneous TID AC And insulin lispro 0-7 Units Subcutaneous Nightly at bedtime lisinopril 5 mg Oral Daily magnesium oxide 400 mg Oral BID acetaminophen, thgzilqjp-rjjhlfmh-mpduoccdgfp, ondansetron, polyethylene glycol Prior to Admission medications Medication Sig Start Date End Date Taking? Authorizing Provider apixaban (ELIQUIS) 5 MG tablet Take 1 tablet (5 mg total) by mouth 2 (two) times daily. 09/19/22 YesMadan Palomo MD atorvastatin (LIPITOR) 80 MG tablet Take 1 tablet (80 mg total) by mouth nightly at bedtime. Yes Default History Genericprovider carvedilol (COREG) 6.25 MG tablet Take 1 tablet (6.25 mg total) by mouth 2 (two) times daily. 03/02/24 Yes Madan Palomo MD ferrous sulfate EC 325 (65 Fe) MG tablet Take 1 tablet by mouth daily. Yes Default History Genericprovider finasteride (PROSCAR) 5 MG tablet Take 1 tablet (5 mg total) by mouth daily. Yes Default History Genericprovider furosemide (LASIX) 40 MG tablet Take 1 tablet (40 mg total) by mouth daily. 08/01/23 Yes Sandra Short NP lisinopril (PRINIVIL) 5 MG tablet Take 1 tablet (5 mg total) by mouth daily. 03/02/24 Yes Madan Palomo MD loperamide (IMODIUM) 2 MG capsule Take 1 capsule (2 mg total) by mouth 4 (four) times daily as needed for Diarrhea. Yes Default History Genericprovider magnesium oxide 400 (241.3 Mg) MG tablet Take 1 tablet (400 mg total) by mouth daily. Yes Doc [facility] metFORMIN 1000 MG tablet Take 1 tablet (1,000 mg total) by mouth 2 (two) times daily. 09/13/14 Yes Doc [facility] nitroglycerin (NITROSTAT) 0.[address] 1 tablet (0.4 mg total) under the tongue every 5 (five) minutes as needed for Chest Pain. Yes Default History Genericprovider potassium chloride CR (KLOR-CON M) 20 MEQ tablet Take 1 tablet (20 mEq total) by mouth daily. 08/01/23 Yes Sandra Short NP vitamin B-12 (CYANOCOBALAMIN) 1000 MCG tablet Take 1 tablet (1,000 mcg total) by mouth daily. Yes Default History Genericprovider acetaminophen (TYLENOL) 500 MG tablet Take 2 tablets (1,000 mg total) by mouth every 6 (six) hours as needed for Pain. Default History Genericprovider polyethylene glycol powder Take 17 g by mouth daily as needed (constipation). 06/11/18 Doc [facility] Allergies Allergen Reactions Tomato Diarrhea Review of Systems Unable to perform ROS: Medical condition RDS MANAGEMENT TECHNICIAN * Talha Fung MD - 05/16/2024 9:18 PM CST Hospitalist History and Physical Patient: Avila Crocker Date: 05/16/2024 male, 79-year-old Admit Date: 05/16/2024 Attending: Talha Fung MD REASON FOR ADMISSION: Sepsis HISTORY OF PRESENT ILLNESS: Avila Crocker is a 79-year-old male With past medical history significant for hypertension, dyslipidemia, A-fib on anticoagulation with Eliquis, CAD, cardiomyopathy with recovered EF with most recent EF 55-60% on 07/27/2023 compared to 35-40% 2021, SSS post pacemaker placement 2012 and had upgrade of dual- chamber pacemaker to biventricular pacemaker August 2022, dementia. [facility] from [place] [facility] in [place] where patient presented initially for chest pain, per records patient is not able to provide history and patient was given 1 dose of nitro without any relief, patient denied chest pain for EMS and ED provider, patient denied any acute complaints for me, no chest pain, no shortness of breath, no abdominal pain. In ED patient was evaluated and was noted to have hematuria, labs showed a white count of 13, UA was positive for UTI, patient was started on IV Rocephin, urology were consulted and patient was transferred to our facility for further evaluation and treatment. Patient was seen at [facility] ED on 05/09/2024 for incarcerated umbilical hernia that was reduced by ED provider, CT abdomen and pelvis showed finding compatible with nonspecific enteritis/colitis, Guerra catheter bulb appears in the low lying position with an enlarged prostate and recommended repositioning Allergy Allergies Allergen Reactions Tomato Diarrhea Medication list Medications Prior to Admission Medication Sig Dispense Refill acetaminophen (TYLENOL) 500 MG tablet Take 2 tablets (1,000 mg total) by mouth every 6 (six) hours as needed for Pain. apixaban (ELIQUIS) 5 MG tablet Take 1 tablet (5 mg total) by mouth 2 (two) times daily. 60 tablet 5 atorvastatin (LIPITOR) 80 MG tablet Take 1 tablet (80 mg total) by mouth nightly at bedtime. carvedilol (COREG) 6.25 MG tablet Take 1 tablet (6.25 mg total) by mouth 2 (two) times daily. 90 tablet 3 ferrous sulfate EC 325 (65 Fe) MG tablet Take 1 tablet by mouth daily. finasteride (PROSCAR) 5 MG tablet Take 1 tablet (5 mg total) by mouth daily. furosemide (LASIX) 40 MG tablet Take 1 tablet (40 mg total) by mouth daily. 30 tablet 0 lisinopril (PRINIVIL) 5 MG tablet Take 1 tablet (5 mg total) by mouth daily. 90 tablet 3 loperamide (IMODIUM) 2 MG capsule Take 1 capsule (2 mg total) by mouth 4 (four) times daily as needed for Diarrhea. magnesium oxide 400 (241.3 Mg) MG tablet Take 1 tablet (400 mg total) by mouth daily. metFORMIN 1000 MG tablet Take 1 tablet (1,000 mg total) by mouth 2 (two) times daily. nitroglycerin (NITROSTAT) 0.[address] 1 tablet (0.4 mg total) under the tongue every 5 (five) minutes as needed for Chest Pain. polyethylene glycol powder Take 17 g by mouth daily as needed (constipation). potassium chloride CR (KLOR-CON M) 20 MEQ tablet Take 1 tablet (20 mEq total) by mouth daily. 60 tablet 0 vitamin B-12 (CYANOCOBALAMIN) 1000 MCG tablet Take 1 tablet (1,000 mcg total) by mouth daily. No current facility-administered medications on file prior to encounter. Current Outpatient Medications on File Prior to Encounter Medication Sig Dispense Refill acetaminophen (TYLENOL) 500 MG tablet Take 2 tablets (1,000 mg total) by mouth every 6 (six) hours as needed for Pain. apixaban (ELIQUIS) 5 MG tablet Take 1 tablet (5 mg total) by mouth 2 (two) times daily. 60 tablet 5 atorvastatin (LIPITOR) 80 MG tablet Take 1 tablet (80 mg total) by mouth nightly at bedtime. carvedilol (COREG) 6.25 MG tablet Take 1 tablet (6.25 mg total) by mouth 2 (two) times daily. 90 tablet 3 ferrous sulfate EC 325 (65 Fe) MG tablet Take 1 tablet by mouth daily. finasteride (PROSCAR) 5 MG tablet Take 1 tablet (5 mg total) by mouth daily. furosemide (LASIX) 40 MG tablet Take 1 tablet (40 mg total) by mouth daily. 30 tablet 0 lisinopril (PRINIVIL) 5 MG tablet Take 1 tablet (5 mg total) by mouth daily. 90 tablet 3 loperamide (IMODIUM) 2 MG capsule Take 1 capsule (2 mg total) by mouth 4 (four) times daily as needed for Diarrhea. magnesium oxide 400 (241.3 Mg) MG tablet Take 1 tablet (400 mg total) by mouth daily. metFORMIN 1000 MG tablet Take 1 tablet (1,000 mg total) by mouth 2 (two) times daily. nitroglycerin (NITROSTAT) 0.[address] 1 tablet (0.4 mg total) under the tongue every 5 (five) minutes as needed for Chest Pain. polyethylene glycol powder Take 17 g by mouth daily as needed (constipation). potassium chloride CR (KLOR-CON M) 20 MEQ tablet Take 1 tablet (20 mEq total) by mouth daily. 60 tablet 0 vitamin B-12 (CYANOCOBALAMIN) 1000 MCG tablet Take 1 tablet (1,000 mcg total) by mouth daily. Past Medical History Past Medical History: Diagnosis Date A-fib (CMS/HCC HHS/HCC) BPH (benign prostatic hyperplasia) CHF (congestive heart failure) (CMS/HCC HHS/HCC) Coronary artery disease Dementia without behavioral disturbance (CMS/HCC HHS/HCC) Diabetes mellitus (CMS/HCC HHS/HCC) Disorder of prostate HLD (hyperlipidemia) Hyperlipidemia Hypertension Pacemaker 09/10/2022 Respiratory failure (CMS/HCC HHS/HCC) Sick sinus syndrome (CMS/HCC HHS/HCC) Urinary retention Past Surgical History: Procedure Laterality Date CORONARY ART DIL,ONE VESSEL 2010 INSER COBIAN PACER XVENOUS ATRIAL 05/04/2013 PACEMAKER Social History Social History Socioeconomic History Marital status: Number of children: 2 Occupational History Employer: RETIRED Tobacco Use Smoking status: Former Current packs/day: 0.00 Average packs/day: 1 pack/day for 29.6 years (29.6 ttl pk-yrs) Types: Cigarettes, Pipe Start date: 02/14/1966 Quit date: 10/07/1995 Years since quittin.6 Smokeless tobacco: Never Substance and Sexual Activity Alcohol use: No Drug use: No Sexual activity: Not Currently Other Topics Concern Exercise No Special Diet No Caffeine Concern No Social Drivers of Health Financial Resource Strain: Low Risk (07/27/2023) Overall Financial Resource Strain (CARDIA) Difficulty of Paying Living Expenses: Not hard at all Food Insecurity: No Food Insecurity (07/27/2023) Hunger Vital Sign Worried About Running Out of Food in the Last Year: Never true Ran Out of Food in the Last Year: Never true Transportation Needs: No Transportation Needs (07/27/2023) PRAPARE - Transportation Lack of Transportation (Medical): No Lack of Transportation (Non-Medical): No Stress: No Stress Concern Present (07/27/2023) [place] [facility] Occup[employer] - Occupational Stress Questionnaire Feeling of Stress : Not at all Social Connections: Socially Isolated (07/27/2023) Social Connection and Isolation Panel [NHANES] Frequency of Communication with Friends and Family: Never Frequency of Social Gatherings with Friends and Family: Never Attends [employer] Services: Never Active Member of Clubs or Organizations: No Attends Club or Organization Meetings: Never Marital Status: Intimate Partner Violence: Not At Risk (07/27/2023) Humiliation, Afraid, Rape, and Kick questionnaire Fear of Current or Ex-Partner: No Emotionally Abused: No Physically Abused: No Sexually Abused: No Housing Stability: Low Risk (07/27/2023) Housing Stability Vital Sign Unable to Pay for Housing in the Last Year: No Number of Places Lived in the Last Year: 2 Unstable Housing in the Last Year: No Family History Family History Problem Relation Name Age of Onset Heart Attack Mother REVIEW OF SYSTEMS: Limited given patient history of dementia PHYSICAL EXAMINATION: Vital 24 Hour Range Most Recent Value Temperature Temp Min: 100.8 ??F (38.2 ??C) Max: 102.8 ??F (39.3 ??C) Pulse Pulse Min: 60 Max: 67 Respiratory Resp Min: 14 Max: 22 Blood Pressure BP Min: 94/49 Max: 156/99 Pulse Oximetry SpO2 Min: 93 % Max: 100 % O2 No data recorded Vital Most Recent Value First Value Weight Height BMI N/A Physical Exam: -GENERAL: No acute distress, breathing comfortably on room air. -EYES: Extraocular movements intact -ENT: Neck supple, Septum is midline. -LUNG: Diminished breath sounds bilaterally, No wheezes, No crackles -CVS: Regular rate rhythm, S1 and S2 normal, No murmurs, -ABDOMEN: Soft, nondistended, Nontender, Bowel sounds observed -EXT: no lower Ext edema. -NEURO: Lethargic but awakens easily, oriented x1-2, No gross neuro deficit -SKIN: Skin color, texture, turgor normal. No rashes or lesions Intake/Output last 3 shifts: No intake/output data recorded. Labs: Recent Labs Lab 05/16/24 1133 NA 141 K 4.7 CL 102 CO2 30.3 AGAP 8.7 BUN 20 CR 0.84 GLU 167* CA 8.9 Recent Labs Lab 05/16/24 1133 WBC 13.44* RBC 4.14* HGB 11.0* HCT 36.0* MCV 87.0 MCH 26.6* MCHC 30.6* PLT 256 RDW 15.9* MPV 10.0 Recent Labs Lab 05/16/24 1133 AST 14* ALT 16 No results for input(s): INR , PTT in the last 168 hours. Invalid input(s): ABG arterial blood gases Recent Labs Lab 05/16/24 1133 TROP 27 No results for input(s): PH , PCO2 , PO2 , [id number] , BICARBWB , BASEDEFICIT , BASEEXCESS in the last 168 hours. Imagining & Other Studies XR CHEST PORTABLE Result Date: 05/16/2024 IMPRESSION: 1) No radiographic evidence of active disease the chest. 12 lead Result Date: 05/16/2024 Interpretive Statements ELECTRONIC VENTRICULAR PACEMAKER ABNORMAL RHYTHM ECG CT ABD+PEL W IV CON ONLY Result Date: 05/09/2024 IMPRESSION: 1. Findings compatible with nonspecific enteritis/colitis and diarrheal state. No evidence of bowel obstruction, as clinically queried. 2. Guerra catheter bulb appears in low lying position within the enlarged prostate. Recommend repositioning. 3. 1.4 cm hypoenhancing focus in the pancreatic tail. This could possibly represent benign focal fatty infiltration, though recommend nonemergent further evaluation with pancreatic protocol MRI to exclude cyst or mass. 4. Small fat-containing umbilical hernia without evidence of complication. 5. Mild anasarca, more pronounced inferiorly. 6. 0.7 cm pulmonary nodule in the lingula. Recommend follow-up chest CT in 6-12 months. 7. Other chronic /nonurgent findings, as above. No results found for this visit on 05/16/24. Assessment & Plan Sepsis: Patient admitted to the telemetry unit Evident with systemic inflammatory response with white count 13, fever 102.8 Lactic acid 4.2, improved to 2.8 Follow with cultures CAUTI: Patient urine culture on 12/12/2023 showed PROVIDENCIA STUARTII susceptible to Rocephin Patient started on Rocephin, continue In ED hematuria was noted, currently urine looks clear Patient had a CT abdomen and pelvis on 05/09/2024 which recommended repositioning Guerra catheter asthe bulb was laying within the enlarged prostate, will clarify when was the last time the Guerra wasexchanged Urology have been consulted A-fib: On anticoagulation with Eliquis, will hold Continue beta-blockers Cardiomyopathy: With recovered EF 55-60% on 07/27/2023 Continue beta-vin, MARILIA inhibitor Type 2 diabetes mellitus: Holding metformin Accu-Cheks and insulin protocol Dyslipidemia: Continue statin CODE STATUS full code Talha Fung MD 05/16/2024 9:18 PM RDS MANAGEMENT TECHNICIAN documented in this encounter Consult Notes * Tanya Hogan MD - 05/25/2024 9:22 AM CST Images from the original note were not included. Patient was seen today utilizing telemedicine services. I introduced and identified myself, received verbal consent from the patient to proceed with this video visit and made the patient aware that the same confidentiality and information operator practices apply. Patient Location: [facility] 5TH FLOOR [address] [facility] [address] Dept: [phone] Provider Location: Other location: Office Caregivers in attendance: [facility] VICTOR MANUEL Infectious disease staff nurse Time spent with patient in minutes : 6 [facility] medical group - Infectious Disease Progress Note Assessment/Plan: Chief Complaint: hematuria Assessment Gram-positive bacteremia with permanent pacemaker Complicated UTI due to chronic indwelling Guerra catheter Leukocytosis Plan Vital signs reviewed. Patient is currently afebrile. Labs reviewed, patient's creatinine is 0.56, CPK level 49 and WBC count 9.9. Mental status remains unchanged. Patient is still confused. Septic workup reviewed. May 21 blood cultures no growth so far May 19 blood culture no growth so far May 17 blood culture positive for Staph aureus, MSSA May 16 blood culture, Staph aureus, MSSA. Patient had transthoracic echo where 0.7 cm linear structure noted on the ventricular aspect also posterior mitral leaflet, suspicious for vegetation the transesophageal echo was done again which is negative for any infectious endocarditis. Patient is currently on intravenous daptomycin and is tolerating well. Okay to discharge when ready per primary. DISCHARGE ORDERS: Discharge antibiotics: Daptomycin 600 mg intravenous every 24 hour, anticipated stop date July 01, 2024 Follow up labs : Labs to be done every THURSDAY while on IV antibitoics and to be faxed at [phone] and [phone] - CBC, CMP,CPK Follow up visit 2 to 3 weeks, with ms Picc line / Midline care - per protocol. Discontinue IV line once patient is done with iv antibitoics. For wound care - please have the home health nurse send up pictures via [employer] or send us wound assessment weekly to above fax number. Subjective SUBJECTIVE : Afebrile patient remains confused. Does not appear to be in any distress. REVIEW OF SYSTEM: Review of Systems Constitutional: Negative for chills and fever. Respiratory: Negative for cough and shortness of breath. Cardiovascular: Negative for chest pain. Gastrointestinal: Negative for diarrhea, nausea and vomiting. Neurological: Patient remained confused PHYSICAL EXAM : Filed Vitals: 05/24/24 1936 05/25/24 0010 05/25/24 0421 05/25/24 0736 BP: (!) 120/105 121/67 126/73 (!) 144/73 Pulse: (!) 57 60 60 64 Resp: 17 17 17 18 Temp: 97.6 ??F (36.4 ??C) 97.5 ??F (36.4 ??C) 98.6 ??F (37 ??C) 97.7 ??F (36.5 ??C) TempSrc: Axillary Axillary Axillary Oral SpO2: 98% 95% 93% 96% Weight: Height: Physical exam: Physical Exam I talked to patient via [employer] haroldo. Also vitals signs were reviewed / as above. Patient did not appear to be in any distress. Patient has altered mental status Review of patient's allergies indicates: Allergen Reactions Tomato Diarrhea Past Medical History: Diagnosis Date A-fib ([facility]) BPH (benign prostatic hyperplasia) CHF (congestive heart failure) ([facility]) Coronary artery disease Dementia without behavioral disturbance ([facility]) Diabetes mellitus ([facility]) Disorder of prostate HLD (hyperlipidemia) Hyperlipidemia Hypertension Incarcerated hernia 05/09/2024 Reduced in ED Pacemaker 09/10/2022 Respiratory failure ([facility] Sick sinus syndrome ([facility]) Urinary retention Objective as above Medications apixaban 5 mg Oral BID carvedilol 6.25 mg Oral BID DAPTOmycin 600 mg Intravenous Q24H dutasteride 0.5 mg Oral Daily furosemide 40 mg Oral Daily insulin lispro 0-14 Units Subcutaneous TID AC And insulin lispro 0-7 Units Subcutaneous Nightly at bedtime lisinopril 5 mg Oral Daily magnesium oxide 400 mg Oral BID acetaminophen, njmizfrqd-siatqlrh-tyrfjtsibme, ondansetron, polyethylene glycol Labs: Recent Labs Lab 05/19/24 0510 05/20/24 0518 05/21/24 0428 05/22/24 0526 05/23/24 0515 05/24/24 0515 05/25/24 0435 WBC 12.25* 9.68 9.44 10.70 10.42 10.24 9.92 RBC 3.71* 4.01* 3.99* 3.70* 3.70* 3.76* 3.68* HGB 9.9* 10.7* 10.5* 9.8* 9.9* 9.8* 9.7* HCT 31.7* 34.1* 34.2* 31.9* 31.9* 32.1* 31.4* MCV 85.4 85.0 85.7 86.2 86.2 85.4 85.3 MCH 26.7* 26.7* 26.3* 26.5* 26.8* 26.1* 26.4* MCHC 31.2* 31.4* 30.7* 30.7* 31.0* 30.5* 30.9* PLT 195 208 180 194 196 236 263 RDW 15.8* 15.7* 15.9* 16.0* 16.1* 16.1* 16.0* MPV 11.1 10.8 11.6 10.8 10.8 11.3 10.8 PERNEU 85.6 80.4 79.6 77.1 79.2 81.8 82.6 PERLYM 8.5 11.8 10.3 12.9 13.1 13.4 12.4 PERMON 4.6 5.5 8.2 9.0 6.3 4.1 3.8 NEUC 10.49* 7.78* 7.52 8.26* 8.26* 8.38* 8.19* LYMC 1.04 1.14 0.97* 1.38 1.36 1.37 1.23 MONOC 0.56 0.53 0.77 0.96* 0.66 0.42 0.38 EOSC 0.08 0.15 0.10 0.03* 0.04 0.02* 0.05 BASOC 0.03 0.03 0.02 0.03 0.03 0.01 0.01 DTYPE AUTOMATED DIFFERENTIAL AUTOMATED DIFFERENTIAL AUTOMATED DIFFERENTIAL AUTOMATED DIFFERENTIAL AUTOMATED DIFFERENTIAL AUTOMATED DIFFERENTIAL AUTOMATED DIFFERENTIAL Recent Labs Lab 05/19/24 0510 05/20/24 0518 05/21/24 0428 05/22/24 0526 05/23/24 0758 05/24/24 0515 05/25/24 0435 NA 138 141 141 139 137 137 140 K 3.6 4.1 3.8 3.7 3.8 3.9 3.7 CL 106 109 108 107 106 104 106 CO2 28.3 27.8 27.9 27.4 26.5 29.4 27.2 AGAP 3.7 4.2 5.1 4.6 4.5 3.6 6.8 BUN 16 16 18 21* 26* 28* 26* CR 0.46* 0.52* 0.63* 0.63* 0.59* 0.63* 0.56* BUNCREATININ 34.9* 30.6* 28.7* 33.2* 44.3* 44.4* 46.5* GLU 145* 150* 194* 171* 168* 174* 142* CA 8.7 8.8 9.0 8.8 8.7 8.7 8.5 TP -- -- -- -- -- -- 6.0* ALB -- -- -- -- -- -- 1.8* TBIL -- -- -- -- -- -- 0.8 ALKP -- -- -- -- -- -- 73 AST -- -- -- -- -- -- 19 ALT -- -- -- -- -- -- 16 Microbiology Results (last 14 days) Procedure Component Value Units Date/Time CULTURE, BACTERIA, BLOOD [[id number]] Collected: 05/17/24608 Order Status: Completed Lab Status: Preliminary result Updated: 05/18/24809 Specimen: BLOOD SPEC DESCRIPTION BLOOD SPECIAL REQUESTS NO SPECIAL REQUEST GRAM STAIN RESULT GRAM POSITIVE COCCI RESEMBLING STAPHYLOCOCCUS SPECIES GRAM STAIN RESULT -- GRAM STAIN CALLED TO AND REPEATED BACK BY NURIA SANTACRUZ RN, AT 0640, 05/18/24. DJW GRAM STAIN RESULT PCR TESTING PERFORMED ON THIS SAMPLE CULTURE RESULT CULTURE REPORT TO FOLLOW. CULTURE, BLOOD, PCR PANEL [[id number]] (Abnormal) Collected: 05/17/24608 Order Status: Completed Lab Status: Final result Updated: 05/18/24811 MEC/MREJ RESISTANT GENE PCR (BLD) NOT DETECTED Comment: Note: Antimicrobial resistance can occur via multiple mechanisms. A NOT DETECTED result from the PK CleanArray antimicrobial resistance gene assay does not indicate antimicrobial susceptibility. A DETECTED result for a genetic marker of antimicrobial resistance gene assay does not indicate antimicrobial susceptibility. Subculturing is required for species identification and susceptibility testing of isolates. ENTEROCOCCUS FAECALIS PCR (BLD) NOT DETECTED ENTEROCUCCUS FAECIUM PCR (BLD) NOT DETECTED LISTERIA MONOCYTOGENES PCR (BLD) NOT DETECTED STAPH SPECIES PCR (BLD) DETECTED STAPH AUREUS PCR (BLD) -- CALLED TO AND REPEATED BACK BY YESSI SCALES PHARMD AT 0810 ON 05/18/24 DIANA STAPHYLOCOCCUS EPIDERMIDIS PCR (BLD) NOT DETECTED STAPHYLOCOCCUS LUGDUNENSIS PCR (BLD) NOT DETECTED STREPTOCOCCUS PCR (BLD) NOT DETECTED STREP AGALACTIAE PCR (BLD) NOT DETECTED STREP PNEUMONIAE PCR (BLD) NOT DETECTED STREP PYOGENES (GRP A) PCR (BLD) NOT DETECTED ACINETOBACTER BAUMANII PCR (BLD) NOT DETECTED BACTEROIDES FRAGILIS PCR (BLD) NOT DETECTED ENTEROBACTERIACEAE PCR (BLD) NOT DETECTED ENTEROBACTER CLOACAE COMP PCR (BLD) NOT DETECTED ESCHERICHIA COLI PCR (BLD) NOT DETECTED KLEBSIELLA AEROGENES PCR (BLD) NOT DETECTED KLEBSIELLA OXYTOCA PCR (BLD) NOT DETECTED KLEBSIELLA PNEUMONIAE PCR (BLD) NOT DETECTED PROTEUS PCR (BLD) NOT DETECTED SALMONELLA PCR (BLD) NOT DETECTED SERRATIA MARCESCENS PCR (BLD) NOT DETECTED H. INFLUENZAE PCR (BLD) NOT DETECTED N. MENINGITIDIS PCR (BLD) NOT DETECTED PSEUDOMONAS AERUGINOSA PCR (BLD) NOT DETECTED STENOTROPHOMONAS MALTOPHILIA PCR (BLD) NOT DETECTED YA ALBICANS PCR (BLD) NOT DETECTED YA AURIS PCR (BLD) NOT DETECTED YA GLABRATA PCR (BLD) NOT DETECTED YA KRUSEI PCR (BLD) NOT DETECTED YA PARAPSILOSIS PCR (BLD) NOT DETECTED YA TROPICALIS PCR (BLD) NOT DETECTED CRYPTOCOCCUS NEOFORMANS/GATTII PCR (BLD) NOT DETECTED CULTURE, BACTERIA, BLOOD [[id number]] Collected: 05/17/24 0600 Order Status: Canceled Lab Status: No result Specimen: BLOOD CULTURE URINE [[id number]] Collected: 05/16/24 1151 Order Status: Sent Lab Status: In process Updated: 05/16/24 1156 Specimen: URINE, GUERRA CATH CORONAVIRUS (COVID-19) ANTIGEN [[id number]] Collected: 05/16/24 1137 Order Status: Completed Lab Status: Final result Updated: 05/16/24 1228 Specimen: NASAL CORONAVIRUS ANTIGEN IA NEGATIVE Comment: NEGATIVE RESULTS DO NOT RULE OUT [...] USE BY AUTHORIZED LABORATORIES. SPECIMEN TYPE NASAL INFLUENZA A & B [[id number]] Collected: 05/16/241136 Order Status: Completed Lab Status: Final result Updated: 05/16/241227 Specimen: NASOPHARYNGEAL SWAB SPECIMEN TYPE (INFLUENZA) NASOPHARYNGEAL SWAB INFLUENZA A NEGATIVE INFLUENZA B NEGATIVE Comment: A NEGATIVE RESULT DOES NOT EXCLUDE INFLUENZA VIRUS INFECTION. IF INFLUENZA IS CIRCULATING IN YOUR COMMUNITY, A DIAGNOSIS OF INFLUENZA SHOULD BE CONSIDERED BASED ON A PATIENT'S CLINICAL PRESENTATION AND EMPIRIC ANTIVIRAL TREATMENT SHOULD BE CONSIDERED IF INDICATED. BLOOD CULTURE #1 [[id number]] (Abnormal) Collected: 05/16/241132 Order Status: Completed Lab Status: Preliminary result Updated: 05/17/24102 Specimen: BLOOD SPEC DESCRIPTION BLOOD SPECIAL REQUESTS NO SPECIAL REQUEST GRAM STAIN RESULT GRAM POSITIVE COCCI IN CLUSTERS GRAM STAIN RESULT -- RESULT CALLED TO [facility]/HECTOR NORTON RN 0102 KLS R AND V CULTURE RESULT GRAM POSITIVE COCCI IN CLUSTERS TANYA HOGAN MD RDS MANAGEMENT TECHNICIAN * Tanya Hogan MD - 05/24/2024 8:50 AM CST Images from the original note were not included. Patient was seen today utilizing telemedicine services. I introduced and identified myself, received verbal consent from the patient to proceed with this video visit and made the patient aware that the same confidentiality and information operator practices apply. Patient Location: [facility] MED/SURG 5TH FLOOR [facility] [address] Dept: [phone] Provider Location: Other location: Office Caregivers in attendance: [facility] VICTOR MANUEL Infectious disease staff nurse Time spent with patient in minutes : 6 [facility] medical group - Infectious Disease Progress Note Assessment/Plan: Chief Complaint: hematuria Assessment Gram-positive bacteremia with permanent pacemaker Complicated UTI due to chronic indwelling Guerra catheter Leukocytosis Plan Vital signs reviewed. Patient is currently afebrile. Labs reviewed, creatinine 0.63 and WBC count 10,000. Recent CPK level is 49. Septic workup reviewed. May 04 blood cultures no growth so far May 19 blood culture no growth so far May 17 blood culture positive for Staph aureus, MSSA May 16 blood culture, Staph aureus, MSSA. Patient had transthoracic echo where 0.7 cm linear structure noted on the ventricular aspect also posterior mitral leaflet, suspicious for vegetation the transesophageal echo was done again which is negative for any infectious endocarditis. Patient is currently on intravenous daptomycin and is tolerating well. Okay to discharge when ready per primary. DISCHARGE ORDERS: Discharge antibiotics: Daptomycin 600 mg intravenous every 24 hour, anticipated stop date July 01, 2024 Follow up labs : Labs to be done every THURSDAY while on IV antibitoics and to be faxed at [phone] and [phone] - CBC, CMP,CPK Follow up visit 2 to 3 weeks, with ms Picc line / Midline care - per protocol. Discontinue IV line once patient is done with iv antibitoics. For wound care - please have the home health nurse send up pictures via [employer] or send us wound assessment weekly to above fax number. Subjective SUBJECTIVE : Afebrile patient remains confused. Does not appear to be in any distress. REVIEW OF SYSTEM: Review of Systems Constitutional: Negative for chills and fever. Respiratory: Negative for cough and shortness of breath. Cardiovascular: Negative for chest pain. Gastrointestinal: Negative for diarrhea, nausea and vomiting. Neurological: Patient remained confused PHYSICAL EXAM : Filed Vitals: 05/23/24 1947 05/24/24 0040 05/24/24 0428 05/24/24 0733 BP: 118/82 112/53 111/62 131/56 Pulse: 85 83 60 (!) 59 Resp: 16 18 Temp: 98.1 ??F (36.7 ??C) 97.9 ??F (36.6 ??C) TempSrc: Oral Axillary Axillary SpO2: 92% 100% 93% 96% Weight: Height: Physical exam: Physical Exam I talked to patient via [employer] haroldo. Also vitals signs were reviewed / as above. Patient did not appear to be in any distress. Patient has altered mental status Review of patient's allergies indicates: Allergen Reactions Tomato Diarrhea Past Medical History: Diagnosis Date A-fib ([facility]) BPH (benign prostatic hyperplasia) CHF (congestive heart failure) ([facility]) Coronary artery disease Dementia without behavioral disturbance ([facility]) Diabetes mellitus ([facility]) Disorder of prostate HLD (hyperlipidemia) Hyperlipidemia Hypertension Incarcerated hernia 05/09/2024 Reduced in ED Pacemaker 09/10/2022 Respiratory failure ([facility]) Sick sinus syndrome ([facility]) Urinary retention Objective as above Medications apixaban 5 mg Oral BID atorvastatin 80 mg Oral Nightly at bedtime carvedilol 6.25 mg Oral BID DAPTOmycin 10 mg/kg (Adjusted) Intravenous Q24H dutasteride 0.5 mg Oral Daily furosemide 40 mg Oral Daily insulin lispro 0-14 Units Subcutaneous TID AC And insulin lispro 0-7 Units Subcutaneous Nightly at bedtime lisinopril 5 mg Oral Daily magnesium oxide 400 mg Oral BID acetaminophen, qxsiuhgsk-wxvjgpwf-kvrhdfsclbm, ondansetron, polyethylene glycol Labs: Recent Labs Lab 05/18/24 1219 05/19/24 0510 05/20/24 0518 05/21/24 0428 05/22/24 0526 05/23/24 0515 05/24/24 0515 WBC 13.29* 12.25* 9.68 9.44 10.70 10.42 10.24 RBC 3.87* 3.71* 4.01* 3.99* 3.70* 3.70* 3.76* HGB 10.3* 9.9* 10.7* 10.5* 9.8* 9.9* 9.8* HCT 34.2* 31.7* 34.1* 34.2* 31.9* 31.9* 32.1* MCV 88.4 85.4 85.0 85.7 86.2 86.2 85.4 MCH 26.6* 26.7* 26.7* 26.3* 26.5* 26.8* 26.1* MCHC 30.1* 31.2* 31.4* 30.7* 30.7* 31.0* 30.5* PLT 187 195 208 180 194 196 236 RDW 15.9* 15.8* 15.7* 15.9* 16.0* 16.1* 16.1* MPV 11.6 11.1 10.8 11.6 10.8 10.8 11.3 PERNEU 84.5 85.6 80.4 79.6 77.1 79.2 81.8 PERLYM 10.3 8.5 11.8 10.3 12.9 13.1 13.4 PERMON 3.8 4.6 5.5 8.2 9.0 6.3 4.1 NEUC 11.24* 10.49* 7.78* 7.52 8.26* 8.26* 8.38* LYMC 1.37 1.04 1.14 0.97* 1.38 1.36 1.37 MONOC 0.51 0.56 0.53 0.77 0.96* 0.66 0.42 EOSC 0.06 0.08 0.15 0.10 0.03* 0.04 0.02* BASOC 0.02 0.03 0.03 0.02 0.03 0.03 0.01 DTYPE AUTOMATED DIFFERENTIAL AUTOMATED DIFFERENTIAL AUTOMATED DIFFERENTIAL AUTOMATED DIFFERENTIAL AUTOMATED DIFFERENTIAL AUTOMATED DIFFERENTIAL AUTOMATED DIFFERENTIAL Recent Labs Lab 05/18/24 1219 05/19/24 0510 05/20/24 0518 05/21/24 0428 05/22/24 0526 05/23/24 0758 05/24/24 0515 NA 136 138 141 141 139 137 137 K 3.9 3.6 4.1 3.8 3.7 3.8 3.9 CL 106 106 109 108 107 106 104 CO2 24.4 28.3 27.8 27.9 27.4 26.5 29.4 AGAP 5.6 3.7 4.2 5.1 4.6 4.5 3.6 BUN 21* 16 16 18 21* 26* 28* CR 0.61* 0.46* 0.52* 0.63* 0.63* 0.59* 0.63* BUNCREATININ 34.7* 34.9* 30.6* 28.7* 33.2* 44.3* 44.4* GLU 200* 145* 150* 194* 171* 168* 174* CA 8.5 8.7 8.8 9.0 8.8 8.7 8.7 Microbiology Results (last 14 days) Procedure Component Value Units Date/Time CULTURE, BACTERIA, BLOOD [[id number]] Collected: 05/17/24 0609 Order Status: Completed Lab Status: Preliminary result Updated: 05/18/24 0810 Specimen: BLOOD SPEC DESCRIPTION BLOOD SPECIAL REQUESTS NO SPECIAL REQUEST GRAM STAIN RESULT GRAM POSITIVE COCCI RESEMBLING STAPHYLOCOCCUS SPECIES GRAM STAIN RESULT -- GRAM STAIN CALLED TO AND REPEATED BACK BY NURIA SANTACRUZ RN, AT 0640, 05/18/24. DJW GRAM STAIN RESULT PCR TESTING PERFORMED ON THIS SAMPLE CULTURE RESULT CULTURE REPORT TO FOLLOW. CULTURE, BLOOD, PCR PANEL [[id number]] (Abnormal) Collected: 05/17/24608 Order Status: Completed Lab Status: Final result Updated: 05/18/24 0812 MEC/MREJ RESISTANT GENE PCR (BLD) NOT DETECTED Comment: Note: Antimicrobial resistance can occur via multiple mechanisms. A NOT DETECTED result from the PK CleanArray antimicrobial resistance gene assay does not indicate antimicrobial susceptibility. A DETECTED result for a genetic marker of antimicrobial resistance gene assay does not indicate antimicrobial susceptibility. Subculturing is required for species identification and susceptibility testing of isolates. ENTEROCOCCUS FAECALIS PCR (BLD) NOT DETECTED ENTEROCUCCUS FAECIUM PCR (BLD) NOT DETECTED LISTERIA MONOCYTOGENES PCR (BLD) NOT DETECTED STAPH SPECIES PCR (BLD) DETECTED STAPH AUREUS PCR (BLD) -- CALLED TO AND REPEATED BACK BY YESSI SCALES PHARMD AT 0810 ON 05/18/24 DIANA STAPHYLOCOCCUS EPIDERMIDIS PCR (BLD) NOT DETECTED STAPHYLOCOCCUS LUGDUNENSIS PCR (BLD) NOT DETECTED STREPTOCOCCUS PCR (BLD) NOT DETECTED STREP AGALACTIAE PCR (BLD) NOT DETECTED STREP PNEUMONIAE PCR (BLD) NOT DETECTED STREP PYOGENES (GRP A) PCR (BLD) NOT DETECTED ACINETOBACTER BAUMANII PCR (BLD) NOT DETECTED BACTEROIDES FRAGILIS PCR (BLD) NOT DETECTED ENTEROBACTERIACEAE PCR (BLD) NOT DETECTED ENTEROBACTER CLOACAE COMP PCR (BLD) NOT DETECTED ESCHERICHIA COLI PCR (BLD) NOT DETECTED KLEBSIELLA AEROGENES PCR (BLD) NOT DETECTED KLEBSIELLA OXYTOCA PCR (BLD) NOT DETECTED KLEBSIELLA PNEUMONIAE PCR (BLD) NOT DETECTED PROTEUS PCR (BLD) NOT DETECTED SALMONELLA PCR (BLD) NOT DETECTED SERRATIA MARCESCENS PCR (BLD) NOT DETECTED H. INFLUENZAE PCR (BLD) NOT DETECTED N. MENINGITIDIS PCR (BLD) NOT DETECTED PSEUDOMONAS AERUGINOSA PCR (BLD) NOT DETECTED STENOTROPHOMONAS MALTOPHILIA PCR (BLD) NOT DETECTED YA ALBICANS PCR (BLD) NOT DETECTED YA AURIS PCR (BLD) NOT DETECTED YA GLABRATA PCR (BLD) NOT DETECTED YA KRUSEI PCR (BLD) NOT DETECTED YA PARAPSILOSIS PCR (BLD) NOT DETECTED YA TROPICALIS PCR (BLD) NOT DETECTED CRYPTOCOCCUS NEOFORMANS/GATTII PCR (BLD) NOT DETECTED CULTURE, BACTERIA, BLOOD [[id number]] Collected: 05/17/24 0600 Order Status: Canceled Lab Status: No result Specimen: BLOOD CULTURE URINE [[id number]] Collected: 05/16/24 1151 Order Status: Sent Lab Status: In process Updated: 05/16/24 1156 Specimen: URINE, GUERRA CATH CORONAVIRUS (COVID-19) ANTIGEN [[id number]] Collected: 05/16/24 113 Order Status: Completed Lab Status: Final result Updated: 05/16/24 1228 Specimen: NASAL CORONAVIRUS ANTIGEN IA NEGATIVE Comment: NEGATIVE RESULTS DO NOT RULE OUT [...] USE BY AUTHORIZED LABORATORIES. SPECIMEN TYPE NASAL INFLUENZA A & B [[id number]] Collected: 05/16/241136 Order Status: Completed Lab Status: Final result Updated: 05/16/24 1228 Specimen: NASOPHARYNGEAL SWAB SPECIMEN TYPE (INFLUENZA) NASOPHARYNGEAL SWAB INFLUENZA A NEGATIVE INFLUENZA B NEGATIVE Comment: A NEGATIVE RESULT DOES NOT EXCLUDE INFLUENZA VIRUS INFECTION. IF INFLUENZA IS CIRCULATING IN YOUR COMMUNITY, A DIAGNOSIS OF INFLUENZA SHOULD BE CONSIDERED BASED ON A PATIENT'S CLINICAL PRESENTATION AND EMPIRIC ANTIVIRAL TREATMENT SHOULD BE CONSIDERED IF INDICATED. BLOOD CULTURE #1 [[id number]] (Abnormal) Collected: 05/16/24 1133 Order Status: Completed Lab Status: Preliminary result Updated: 05/17/24 0103 Specimen: BLOOD SPEC DESCRIPTION BLOOD SPECIAL REQUESTS NO SPECIAL REQUEST GRAM STAIN RESULT GRAM POSITIVE COCCI IN CLUSTERS GRAM STAIN RESULT -- RESULT CALLED TO [facility]/HECTOR NORTON RN 0102 KLS R AND V CULTURE RESULT GRAM POSITIVE COCCI IN CLUSTERS TANYA HOGAN MD RDS MANAGEMENT TECHNICIAN * Tanya Hogan MD - 05/23/2024 8:55 AM CST Images from the original note were not included. Patient was seen today utilizing telemedicine services. I introduced and identified myself, received verbal consent from the patient to proceed with this video visit and made the patient aware that the same confidentiality and information operator practices apply. Patient Location: [facility] MED/SURG 5TH FLOOR [facility] [address] Dept: [phone] Provider Location: Other location: Office Caregivers in attendance: [facility] VICTOR MANUEL Infectious disease staff nurse Time spent with patient in minutes : 6 [facility] medical group - Infectious Disease Progress Note Assessment/Plan: Chief Complaint: hematuria Assessment Gram-positive bacteremia with permanent pacemaker Complicated UTI due to chronic indwelling Guerra catheter Leukocytosis Plan Vital signs reviewed. Patient is currently afebrile. Labs reviewed, patient's creatinine is 0.59 and WBC count 10,000. Septic workup reviewed. May 04 blood cultures no growth so far May 19 blood culture no growth so far May 17 blood culture positive for Staph aureus, MSSA May 16 blood culture, Staph aureus, MSSA. Patient had transthoracic echo where 0.7 cm linear structure noted on the ventricular aspect also posterior mitral leaflet, suspicious for vegetation the transesophageal echo was done again which is negative for any infectious endocarditis. Patient is currently on intravenous daptomycin and is tolerating well. Recent CPK level is 14 9. Okay to discharge when ready per primary. DISCHARGE ORDERS: Discharge antibiotics: Daptomycin 600 mg intravenous every 24 hour, anticipated stop date July 01, 2024 Follow up labs : Labs to be done every THURSDAY while on IV antibitoics and to be faxed at [phone] and [phone] - CBC, CMP,CPK Follow up visit 2 to 3 weeks, with me Picc line / Midline care - per protocol. Discontinue IV line once patient is done with iv antibitoics. For wound care - please have the home health nurse send up pictures via [employer] or send us wound assessment weekly to above fax number. Subjective SUBJECTIVE : Afebrile patient remains confused. Does not appear to be in any distress. REVIEW OF SYSTEM: Review of Systems Constitutional: Negative for chills and fever. Respiratory: Negative for cough and shortness of breath. Cardiovascular: Negative for chest pain. Gastrointestinal: Negative for diarrhea, nausea and vomiting. Neurological: Patient remained confused PHYSICAL EXAM : Filed Vitals: 05/22/24 1536 05/22/24 1943 05/23/24 0516 05/23/24 0741 BP: 124/79 110/62 124/65 128/60 Pulse: (!) 59 65 60 60 Resp: 20 Temp: 98.2 ??F (36.8 ??C) 99 ??F (37.2 ??C) 99.2 ??F (37.3 ??C) TempSrc: Oral Axillary Axillary SpO2: 94% 96% 95% 99% Weight: Height: Physical exam: Physical Exam I talked to patient via [employer] haroldo. Also vitals signs were reviewed / as above. Patient did not appear to be in any distress. Patient has altered mental status Review of patient's allergies indicates: Allergen Reactions Tomato Diarrhea Past Medical History: Diagnosis Date A-fib ([facility]) BPH (benign prostatic hyperplasia) CHF (congestive heart failure) ([facility]) Coronary artery disease Dementia without behavioral disturbance ([facility]) Diabetes mellitus ([facility]) Disorder of prostate HLD (hyperlipidemia) Hyperlipidemia Hypertension Incarcerated hernia 05/09/2024 Reduced in ED Pacemaker 09/10/2022 Respiratory failure ([facility]) Sick sinus syndrome ([facility]) Urinary retention Objective as above Medications apixaban 5 mg Oral BID atorvastatin 80 mg Oral Nightly at bedtime carvedilol 6.25 mg Oral BID DAPTOmycin 10 mg/kg (Adjusted) Intravenous Q24H dutasteride 0.5 mg Oral Daily furosemide 40 mg Oral Daily insulin lispro 0-14 Units Subcutaneous TID AC And insulin lispro 0-7 Units Subcutaneous Nightly at bedtime lisinopril 5 mg Oral Daily magnesium oxide 400 mg Oral BID acetaminophen, wkoihxhhx-kemhfcfk-tvluyucwikc, ondansetron, polyethylene glycol Labs: Recent Labs Lab 05/16/24 1133 05/17/24 0610 05/18/24 1219 05/19/24 0510 05/20/24 0518 05/21/24 0428 05/22/24 0526 05/23/24 0515 WBC 13.44* 23.38* 13.29* 12.25* 9.68 9.44 10.70 10.42 RBC 4.14* 3.38* 3.87* 3.71* 4.01* 3.99* 3.70* 3.70* HGB 11.0* 9.1* 10.3* 9.9* 10.7* 10.5* 9.8* 9.9* HCT 36.0* 29.4* 34.2* 31.7* 34.1* 34.2* 31.9* 31.9* MCV 87.0 87.0 88.4 85.4 85.0 85.7 86.2 86.2 MCH 26.6* 26.9* 26.6* 26.7* 26.7* 26.3* 26.5* 26.8* MCHC 30.6* 31.0* 30.1* 31.2* 31.4* 30.7* 30.7* 31.0* PLT 256 169 187 195 208 180 194 196 RDW 15.9* 16.4* 15.9* 15.8* 15.7* 15.9* 16.0* 16.1* MPV 10.0 10.3 11.6 11.1 10.8 11.6 10.8 10.8 PERNEU 93.7 -- 84.5 85.6 80.4 79.6 77.1 79.2 PERLYM 4.7 -- 10.3 8.5 11.8 10.3 12.9 13.1 PERMON 0.6 -- 3.8 4.6 5.5 8.2 9.0 6.3 PEREOS 0.4 -- -- -- -- -- -- -- PERBASO 0.1 -- -- -- -- -- -- -- NEUC 12.59* 21.74* 11.24* 10.49* 7.78* 7.52 8.26* 8.26* LYMC 0.63* 0.70* 1.37 1.04 1.14 0.97* 1.38 1.36 MONOC 0.08 0.94* 0.51 0.56 0.53 0.77 0.96* 0.66 EOSC 0.06 -- 0.06 0.08 0.15 0.10 0.03* 0.04 BASOC 0.01 -- 0.02 0.03 0.03 0.02 0.03 0.03 DTYPE -- MANUAL DIFFERENTIAL AUTOMATED DIFFERENTIAL AUTOMATED DIFFERENTIAL AUTOMATED DIFFERENTIAL AUTOMATED DIFFERENTIAL AUTOMATED DIFFERENTIAL AUTOMATED DIFFERENTIAL Recent Labs Lab 05/16/24 1133 05/17/24 0610 05/18/24 1219 05/19/24 0510 05/20/24 0518 05/21/24 0428 05/22/24 0526 05/23/24 0758 NA 141 135* 136 138 141 141 139 137 K 4.7 3.7 3.9 3.6 4.1 3.8 3.7 3.8 CL 102 104 106 106 109 108 107 106 CO2 30.3 27.0 24.4 28.3 27.8 27.9 27.4 26.5 AGAP 8.7 4.0 5.6 3.7 4.2 5.1 4.6 4.5 BUN 20 28* 21* 16 16 18 21* 26* CR 0.84 0.89 0.61* 0.46* 0.52* 0.63* 0.63* 0.59* BUNCREATININ -- 31.3* 34.7* 34.9* 30.6* 28.7* 33.2* 44.3* GLU 167* 199* 200* 145* 150* 194* 171* 168* CA 8.9 8.1* 8.5 8.7 8.8 9.0 8.8 8.7 TP 7.6 -- -- -- -- -- -- -- ALB 2.9* -- -- -- -- -- -- -- TBIL 0.8 -- -- -- -- -- -- -- ALKP 97 -- -- -- -- -- -- -- AST 14* -- -- -- -- -- -- -- ALT 16 -- -- -- -- -- -- -- Microbiology Results (last 14 days) Procedure Component Value Units Date/Time CULTURE, BACTERIA, BLOOD [[id number]] Collected: 05/17/24608 Order Status: Completed Lab Status: Preliminary result Updated: 05/18/24809 Specimen: BLOOD SPEC DESCRIPTION BLOOD SPECIAL REQUESTS NO SPECIAL REQUEST GRAM STAIN RESULT GRAM POSITIVE COCCI RESEMBLING STAPHYLOCOCCUS SPECIES GRAM STAIN RESULT -- GRAM STAIN CALLED TO AND REPEATED BACK BY NURIA SANTACRUZ RN, AT 0640, 05/18/24. W GRAM STAIN RESULT PCR TESTING PERFORMED ON THIS SAMPLE CULTURE RESULT CULTURE REPORT TO FOLLOW. CULTURE, BLOOD, PCR PANEL [[id number]] (Abnormal) Collected: 05/17/24608 Order Status: Completed Lab Status: Final result Updated: 05/18/24811 MEC/MREJ RESISTANT GENE PCR (BLD) NOT DETECTED Comment: Note: Antimicrobial resistance can occur via multiple mechanisms. A NOT DETECTED result from the PK CleanArray antimicrobial resistance gene assay does not indicate antimicrobial susceptibility. A DETECTED result for a genetic marker of antimicrobial resistance gene assay does not indicate antimicrobial susceptibility. Subculturing is required for species identification and susceptibility testing of isolates. ENTEROCOCCUS FAECALIS PCR (BLD) NOT DETECTED ENTEROCUCCUS FAECIUM PCR (BLD) NOT DETECTED LISTERIA MONOCYTOGENES PCR (BLD) NOT DETECTED STAPH SPECIES PCR (BLD) DETECTED STAPH AUREUS PCR (BLD) -- CALLED TO AND REPEATED BACK BY YESSI SCALES PHARMD AT 0810 ON 05/18/24 DIANA STAPHYLOCOCCUS EPIDERMIDIS PCR (BLD) NOT DETECTED STAPHYLOCOCCUS LUGDUNENSIS PCR (BLD) NOT DETECTED STREPTOCOCCUS PCR (BLD) NOT DETECTED STREP AGALACTIAE PCR (BLD) NOT DETECTED STREP PNEUMONIAE PCR (BLD) NOT DETECTED STREP PYOGENES (GRP A) PCR (BLD) NOT DETECTED ACINETOBACTER BAUMANII PCR (BLD) NOT DETECTED BACTEROIDES FRAGILIS PCR (BLD) NOT DETECTED ENTEROBACTERIACEAE PCR (BLD) NOT DETECTED ENTEROBACTER CLOACAE COMP PCR (BLD) NOT DETECTED ESCHERICHIA COLI PCR (BLD) NOT DETECTED KLEBSIELLA AEROGENES PCR (BLD) NOT DETECTED KLEBSIELLA OXYTOCA PCR (BLD) NOT DETECTED KLEBSIELLA PNEUMONIAE PCR (BLD) NOT DETECTED PROTEUS PCR (BLD) NOT DETECTED SALMONELLA PCR (BLD) NOT DETECTED SERRATIA MARCESCENS PCR (BLD) NOT DETECTED H. INFLUENZAE PCR (BLD) NOT DETECTED N. MENINGITIDIS PCR (BLD) NOT DETECTED PSEUDOMONAS AERUGINOSA PCR (BLD) NOT DETECTED STENOTROPHOMONAS MALTOPHILIA PCR (BLD) NOT DETECTED YA ALBICANS PCR (BLD) NOT DETECTED YA AURIS PCR (BLD) NOT DETECTED YA GLABRATA PCR (BLD) NOT DETECTED YA KRUSEI PCR (BLD) NOT DETECTED YA PARAPSILOSIS PCR (BLD) NOT DETECTED YA TROPICALIS PCR (BLD) NOT DETECTED CRYPTOCOCCUS NEOFORMANS/GATTII PCR (BLD) NOT DETECTED CULTURE, BACTERIA, BLOOD [[id number]] Collected: 05/17/24 0600 Order Status: Canceled Lab Status: No result Specimen: BLOOD CULTURE URINE [[id number]] Collected: 05/16/24 1151 Order Status: Sent Lab Status: In process Updated: 05/16/24 1156 Specimen: URINE, GUERRA CATH CORONAVIRUS (COVID-19) ANTIGEN [[id number]] Collected: 05/16/24 113 Order Status: Completed Lab Status: Final result Updated: 05/16/24 1228 Specimen: NASAL CORONAVIRUS ANTIGEN IA NEGATIVE Comment: NEGATIVE RESULTS DO NOT RULE OUT [...] USE BY AUTHORIZED LABORATORIES. SPECIMEN TYPE NASAL INFLUENZA A & B [[id number]] Collected: 05/16/241136 Order Status: Completed Lab Status: Final result Updated: 05/16/24 1228 Specimen: NASOPHARYNGEAL SWAB SPECIMEN TYPE (INFLUENZA) NASOPHARYNGEAL SWAB INFLUENZA A NEGATIVE INFLUENZA B NEGATIVE Comment: A NEGATIVE RESULT DOES NOT EXCLUDE INFLUENZA VIRUS INFECTION. IF INFLUENZA IS CIRCULATING IN YOUR COMMUNITY, A DIAGNOSIS OF INFLUENZA SHOULD BE CONSIDERED BASED ON A PATIENT'S CLINICAL PRESENTATION AND EMPIRIC ANTIVIRAL TREATMENT SHOULD BE CONSIDERED IF INDICATED. BLOOD CULTURE #1 [[id number]] (Abnormal) Collected: 05/16/24 113 Order Status: Completed Lab Status: Preliminary result Updated: 05/17/24102 Specimen: BLOOD SPEC DESCRIPTION BLOOD SPECIAL REQUESTS NO SPECIAL REQUEST GRAM STAIN RESULT GRAM POSITIVE COCCI IN CLUSTERS GRAM STAIN RESULT -- RESULT CALLED TO [facility]/HECTOR NORTON RN 0102 KLS R AND V CULTURE RESULT GRAM POSITIVE COCCI IN CLUSTERS TANYA HOGAN MD RDS MANAGEMENT TECHNICIAN * Percy Landa MD - 05/21/2024 5:07 PM CSTAssociated Order(s): IP CONSULT TO CARDIOLOGY Images from the original note were not included. [facility] [place], [place] [address] Cardiology Consult Note CC: bacteremia Consult requested by: hospitalist Primary hand tufter: Dr. Palomo ([place]) HPI Avila Crocker is a 79-year-old M transferred from [facility] 05/16 having presented with ?CP but foundto have hematuria and UTI. Since admission, found to have S aureas bacteremia. TTE with concern forendocarditis. Per RN, patient is A&Ox1 and has been agitated. 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 Please feel free to contact me with any further questions or concerns. Diagnostic studies 05/20/24 TTE The left ventricular size is [...] suspected, consider TATE . Technically challenging study PE: I/O last 3 completed shifts: In: 720 [P.O.:720] Out: 1300 [Urine:1300] Temp: [98.4 ??F (36.9 ??C)-100.2 ??F (37.9 ??C)] 98.8 ??F (37.1 ??C) Pulse: [59-60] 59 Resp: [18-22] 22 BP: (124-154)/(65-75) 140/71 Gen: sleeping, deferred awakening HEENT: atraumatic, normocephalic, PERRL, sclera anicteria, OP clear without exudate JVD: none Lungs: normal effort, CTAB Cor: RRR, no m/r/g Abd: soft, nontender, nondistended, normal BS Ext: warm and dry, no c/c/e Neuro: grossly intact Psych: normal affect Labs: Recent Labs Lab 05/19/24 0505/20/2451705/21/24 0428 NA 138 141 141 K 3.6 4.1 3.8 CL 106 109 108 CO2 28.3 27.8 27.9 AGAP 3.7 4.2 5.1 BUN 16 16 18 CR 0.46* 0.52* 0.63* BUNCREATININ 34.9* 30.6* 28.7* GLU 145* 150* 194* CA 8.7 8.8 9.0 MAGNESIUM 1.5* 1.7* 1.6* Recent Labs Lab 05/16/24 1133 TP 7.6 ALB 2.9* TBIL 0.8 ALKP 97 AST 14* ALT 16 Recent Labs Lab 05/19/24 0510 05/20/2418 05/21/24 0428 WBC 12.25* 9.68 9.44 HGB 9.9* 10.7* 10.5* PLT 195 208 180 No results found for: CHOL , TRI , HDL , LDL Lab Results Component Value Date HGBA1C 7.7 (H) 05/17/2024 TSH 2.810 05/17/2024 Recent Labs Lab 05/16/24 1133 05/17/24 0610 TROP 27 50 Past Medical History: Diagnosis Date A-fib ([facility]) BPH (benign prostatic hyperplasia) CHF (congestive heart failure) ([facility]) Coronary artery disease Dementia without behavioral disturbance ([facility]) Diabetes mellitus ([facility]) Disorder of prostate HLD (hyperlipidemia) Hyperlipidemia Hypertension Incarcerated hernia 05/09/2024 Reduced in ED Pacemaker 09/10/2022 Respiratory failure ([facility]) Sick sinus syndrome ([facility]) Urinary retention Past Surgical History: Procedure Laterality Date CORONARY ART DIL,ONE VESSEL 2010 INSER COBIAN PACER XVENOUS ATRIAL 05/04/2013 PACEMAKER Social History Tobacco Use Smoking status: Former Current packs/day: 0.00 Average packs/day: 1 pack/day for 29.6 years (29.6 ttl pk-yrs) Types: Cigarettes, Pipe Start date: 02/14/1966 Quit date: 10/07/1995 Years since quittin.6 Smokeless tobacco: Never Substance Use Topics Alcohol use: No Drug use: No Family History Problem Relation Name Age of Onset Heart Attack Mother apixaban 5 mg Oral BID atorvastatin 80 mg Oral Nightly at bedtime carvedilol 6.25 mg Oral BID DAPTOmycin 10 mg/kg (Adjusted) Intravenous Q24H dutasteride 0.5 mg Oral Daily furosemide 40 mg Oral Daily insulin lispro 0-14 Units Subcutaneous TID AC And insulin lispro 0-7 Units Subcutaneous Nightly at bedtime lisinopril 5 mg Oral Daily magnesium oxide 400 mg Oral BID acetaminophen, dgxuewtsf-mmbefvuw-pdhaglhwcbv, ondansetron, polyethylene glycol Prior to Admission medications Medication Sig Start Date End Date Taking? Authorizing Provider apixaban (ELIQUIS) 5 MG tablet Take 1 tablet (5 mg total) by mouth 2 (two) times daily. 09/19/22 Tino Palomo MD atorvastatin (LIPITOR) 80 MG tablet Take 1 tablet (80 mg total) by mouth nightly at bedtime. Yes Default History Genericprovider carvedilol (COREG) 6.25 MG tablet Take 1 tablet (6.25 mg total) by mouth 2 (two) times daily. 03/02/24 Yes Madan Palomo MD ferrous sulfate EC 325 (65 Fe) MG tablet Take 1 tablet by mouth daily. Yes Default History Genericprovider finasteride (PROSCAR) 5 MG tablet Take 1 tablet (5 mg total) by mouth daily. Yes Default History Genericprovider furosemide (LASIX) 40 MG tablet Take 1 tablet (40 mg total) by mouth daily. 08/01/23 Yes Sandra Short NP lisinopril (PRINIVIL) 5 MG tablet Take 1 tablet (5 mg total) by mouth daily. 03/02/24 Yes Madan Palomo MD loperamide (IMODIUM) 2 MG capsule Take 1 capsule (2 mg total) by mouth 4 (four) times daily as needed for Diarrhea. Yes Default History Genericprovider magnesium oxide 400 (241.3 Mg) MG tablet Take 1 tablet (400 mg total) by mouth daily. Yes Doc [facility] metFORMIN 1000 MG tablet Take 1 tablet (1,000 mg total) by mouth 2 (two) times daily. 09/13/14 Yes Doc [facility] nitroglycerin (NITROSTAT) 0.[address] 1 tablet (0.4 mg total) under the tongue every 5 (five) minutes as needed for Chest Pain. Yes Default History Genericprovider potassium chloride CR (KLOR-CON M) 20 MEQ tablet Take 1 tablet (20 mEq total) by mouth daily. 08/01/23 Yes Sandra Short NP vitamin B-12 (CYANOCOBALAMIN) 1000 MCG tablet Take 1 tablet (1,000 mcg total) by mouth daily. Yes Default History Genericprovider acetaminophen (TYLENOL) 500 MG tablet Take 2 tablets (1,000 mg total) by mouth every 6 (six) hours as needed for Pain. Default History Genericprovider polyethylene glycol powder Take 17 g by mouth daily as needed (constipation). 06/11/18 Doc [facility] Allergies Allergen Reactions Tomato Diarrhea Review of Systems Unable to perform ROS: Medical condition RDS MANAGEMENT TECHNICIAN * Tanya Hogan MD - 05/20/2024 9:24 AM CST Images from the original note were not included. Patient was seen today utilizing telemedicine services. I introduced and identified myself, received verbal consent from the patient to proceed with this video visit and made the patient aware that the same confidentiality and information operator practices apply. Patient Location: [facility] MED/SURG 5TH FLOOR [facility] [address] Dept: [phone] Provider Location: Other location: Office Caregivers in attendance: [facility] VCITOR MANUEL Infectious disease staff nurse Time spent with patient in minutes : 6 [facility] medical group - Infectious Disease Progress Note Assessment/Plan: Chief Complaint: hematuria Assessment Gram-positive bacteremia with permanent pacemaker Complicated UTI due to chronic indwelling Guerra catheter Leukocytosis Plan Vital signs reviewed. Patient is currently afebrile. Labs reviewed, patient's creatinine is 0.52 and WBC count 9.6. Vancomycin random level is 18.4. May 17 blood culture positive for Staph aureus. May 16 blood culture positive for Staph aureus. May 16 urine culture, multiple different gram-positive organisms, sensitivity not done. Patient has permanent. Pacemaker. Source of bacteremia remains unclear. Transthoracic echo pending.We will follow-up. At this time patient is on intravenous vancomycin and ceftriaxone patient has confusion and is not good historian. We will discontinue both IV vancomycin and ceftriaxone and start intravenous daptomycin and monitor CPK level closely. We will continue to follow Subjective SUBJECTIVE : Afebrile patient remains confused. Does not appear to be in any distress. REVIEW OF SYSTEM: Review of Systems Constitutional: Negative for chills and fever. Respiratory: Negative for cough and shortness of breath. Cardiovascular: Negative for chest pain. Gastrointestinal: Negative for diarrhea, nausea and vomiting. Neurological: Patient remained confused PHYSICAL EXAM : Filed Vitals: 05/19/24 2108 05/20/24 0139 05/20/24 0506 05/20/24 0814 BP: (!) 141/76 (!) 158/82 (!) 160/73 (!) 169/84 Pulse: (!) 59 (!) 59 (!) 59 (!) 59 Resp: 16 18 14 Temp: 97.2 ??F (36.2 ??C) 97.3 ??F (36.3 ??C) 97.7 ??F (36.5 ??C) 97.7 ??F (36.5 ??C) TempSrc: Oral Axillary Axillary Oral SpO2: 97% 100% 99% 98% Weight: Height: Physical exam: Physical Exam I talked to patient via [employer] [facility]. Also vitals signs were reviewed / as above. Patient did not appear to be in any distress. Patient has altered mental status Review of patient's allergies indicates: Allergen Reactions Tomato Diarrhea Past Medical History: Diagnosis Date A-fib ([facility]) BPH (benign prostatic hyperplasia) CHF (congestive heart failure) ([facility]) Coronary artery disease Dementia without behavioral disturbance ([facility] Diabetes mellitus ([facility]) Disorder of prostate HLD (hyperlipidemia) Hyperlipidemia Hypertension Incarcerated hernia 05/09/2024 Reduced in ED Pacemaker 09/10/2022 Respiratory failure ([facility]) Sick sinus syndrome ([facility]) Urinary retention Objective as above Medications atorvastatin 80 mg Oral Nightly at bedtime carvedilol 6.25 mg Oral BID cefTRIAXone 1 g Intravenous Q24H dutasteride 0.5 mg Oral Daily furosemide 40 mg Oral Daily insulin lispro 0-14 Units Subcutaneous TID AC And insulin lispro 0-7 Units Subcutaneous Nightly at bedtime lisinopril 5 mg Oral Daily magnesium oxide 400 mg Oral BID vancomycin 1,250 mg Intravenous Q12H vancomycin pharmacy to dose Intravenous See Admin Instructions acetaminophen, qvuzjuykx-mavftsqf-gjflpoasxme, ondansetron, polyethylene glycol Labs: Recent Labs Lab 05/16/24 1133 05/17/24 0610 05/18/24 1219 05/19/24 0510 05/20/24 0518 WBC 13.44* 23.38* 13.29* 12.25* 9.68 RBC 4.14* 3.38* 3.87* 3.71* 4.01* HGB 11.0* 9.1* 10.3* 9.9* 10.7* HCT 36.0* 29.4* 34.2* 31.7* 34.1* MCV 87.0 87.0 88.4 85.4 85.0 MCH 26.6* 26.9* 26.6* 26.7* 26.7* MCHC 30.6* 31.0* 30.1* 31.2* 31.4* PLT 256 169 187 195 208 RDW 15.9* 16.4* 15.9* 15.8* 15.7* MPV 10.0 10.3 11.6 11.1 10.8 PERNEU 93.7 -- 84.5 85.6 80.4 PERLYM 4.7 -- 10.3 8.5 11.8 PERMON 0.6 -- 3.8 4.6 5.5 PEREOS 0.4 -- -- -- -- PERBASO 0.1 -- -- -- -- NEUC 12.59* 21.74* 11.24* 10.49* 7.78* LYMC 0.63* 0.70* 1.37 1.04 1.14 MONOC 0.08 0.94* 0.51 0.56 0.53 EOSC 0.06 -- 0.06 0.08 0.15 BASOC 0.01 -- 0.02 0.03 0.03 DTYPE -- MANUAL DIFFERENTIAL AUTOMATED DIFFERENTIAL AUTOMATED DIFFERENTIAL AUTOMATED DIFFERENTIAL Recent Labs Lab 05/16/24 1133 05/17/24 0610 05/18/24 1219 05/19/24 0510 05/20/24 0518 NA 141 135* 136 138 141 K 4.7 3.7 3.9 3.6 4.1 CL 102 104 106 106 109 CO2 30.3 27.0 24.4 28.3 27.8 AGAP 8.7 4.0 5.6 3.7 4.2 BUN 20 28* 21* 16 16 CR 0.84 0.89 0.61* 0.46* 0.52* BUNCREATININ -- 31.3* 34.7* 34.9* 30.6* GLU 167* 199* 200* 145* 150* CA 8.9 8.1* 8.5 8.7 8.8 TP 7.6 -- -- -- -- ALB 2.9* -- -- -- -- TBIL 0.8 -- -- -- -- ALKP 97 -- -- -- -- AST 14* -- -- -- -- ALT 16 -- -- -- -- Microbiology Results (last 14 days) Procedure Component Value Units Date/Time CULTURE, BACTERIA, BLOOD [[id number]] Collected: 05/17/24608 Order Status: Completed Lab Status: Preliminary result Updated: 05/18/24809 Specimen: BLOOD SPEC DESCRIPTION BLOOD SPECIAL REQUESTS NO SPECIAL REQUEST GRAM STAIN RESULT GRAM POSITIVE COCCI RESEMBLING STAPHYLOCOCCUS SPECIES GRAM STAIN RESULT -- GRAM STAIN CALLED TO AND REPEATED BACK BY NURIA SANTACRUZ RN, AT 0640, 05/18/24. DJW GRAM STAIN RESULT PCR TESTING PERFORMED ON THIS SAMPLE CULTURE RESULT CULTURE REPORT TO FOLLOW. CULTURE, BLOOD, PCR PANEL [[id number]] (Abnormal) Collected: 05/17/24608 Order Status: Completed Lab Status: Final result Updated: 05/18/24811 MEC/MREJ RESISTANT GENE PCR (BLD) NOT DETECTED Comment: Note: Antimicrobial resistance can occur via multiple mechanisms. A NOT DETECTED result from the PK CleanArray antimicrobial resistance gene assay does not indicate antimicrobial susceptibility. A DETECTED result for a genetic marker of antimicrobial resistance gene assay does not indicate antimicrobial susceptibility. Subculturing is required for species identification and susceptibility testing of isolates. ENTEROCOCCUS FAECALIS PCR (BLD) NOT DETECTED ENTEROCUCCUS FAECIUM PCR (BLD) NOT DETECTED LISTERIA MONOCYTOGENES PCR (BLD) NOT DETECTED STAPH SPECIES PCR (BLD) DETECTED STAPH AUREUS PCR (BLD) -- CALLED TO AND REPEATED BACK BY YESSI SCALES PHARMD AT 0810 ON 05/18/24 DIANA STAPHYLOCOCCUS EPIDERMIDIS PCR (BLD) NOT DETECTED STAPHYLOCOCCUS LUGDUNENSIS PCR (BLD) NOT DETECTED STREPTOCOCCUS PCR (BLD) NOT DETECTED STREP AGALACTIAE PCR (BLD) NOT DETECTED STREP PNEUMONIAE PCR (BLD) NOT DETECTED STREP PYOGENES (GRP A) PCR (BLD) NOT DETECTED ACINETOBACTER BAUMANII PCR (BLD) NOT DETECTED BACTEROIDES FRAGILIS PCR (BLD) NOT DETECTED ENTEROBACTERIACEAE PCR (BLD) NOT DETECTED ENTEROBACTER CLOACAE COMP PCR (BLD) NOT DETECTED ESCHERICHIA COLI PCR (BLD) NOT DETECTED KLEBSIELLA AEROGENES PCR (BLD) NOT DETECTED KLEBSIELLA OXYTOCA PCR (BLD) NOT DETECTED KLEBSIELLA PNEUMONIAE PCR (BLD) NOT DETECTED PROTEUS PCR (BLD) NOT DETECTED SALMONELLA PCR (BLD) NOT DETECTED SERRATIA MARCESCENS PCR (BLD) NOT DETECTED H. INFLUENZAE PCR (BLD) NOT DETECTED N. MENINGITIDIS PCR (BLD) NOT DETECTED PSEUDOMONAS AERUGINOSA PCR (BLD) NOT DETECTED STENOTROPHOMONAS MALTOPHILIA PCR (BLD) NOT DETECTED YA ALBICANS PCR (BLD) NOT DETECTED YA AURIS PCR (BLD) NOT DETECTED YA GLABRATA PCR (BLD) NOT DETECTED YA KRUSEI PCR (BLD) NOT DETECTED YA PARAPSILOSIS PCR (BLD) NOT DETECTED YA TROPICALIS PCR (BLD) NOT DETECTED CRYPTOCOCCUS NEOFORMANS/GATTII PCR (BLD) NOT DETECTED CULTURE, BACTERIA, BLOOD [[id number]] Collected: 05/17/24 0600 Order Status: Canceled Lab Status: No result Specimen: BLOOD CULTURE URINE [[id number]] Collected: 05/16/24 1151 Order Status: Sent Lab Status: In process Updated: 05/16/24 115 Specimen: URINE, GUERRA CATH CORONAVIRUS (COVID-19) ANTIGEN [[id number]] Collected: 05/16/241136 Order Status: Completed Lab Status: Final result Updated: 05/16/241227 Specimen: NASAL CORONAVIRUS ANTIGEN IA NEGATIVE Comment: NEGATIVE RESULTS DO NOT RULE OUT [...] USE BY AUTHORIZED LABORATORIES. SPECIMEN TYPE NASAL INFLUENZA A & B [[id number]] Collected: 05/16/241136 Order Status: Completed Lab Status: Final result Updated: 05/16/241227 Specimen: NASOPHARYNGEAL SWAB SPECIMEN TYPE (INFLUENZA) NASOPHARYNGEAL SWAB INFLUENZA A NEGATIVE INFLUENZA B NEGATIVE Comment: A NEGATIVE RESULT DOES NOT EXCLUDE INFLUENZA VIRUS INFECTION. IF INFLUENZA IS CIRCULATING IN YOUR COMMUNITY, A DIAGNOSIS OF INFLUENZA SHOULD BE CONSIDERED BASED ON A PATIENT'S CLINICAL PRESENTATION AND EMPIRIC ANTIVIRAL TREATMENT SHOULD BE CONSIDERED IF INDICATED. BLOOD CULTURE #1 [[id number]] (Abnormal) Collected: 05/16/24 113 Order Status: Completed Lab Status: Preliminary result Updated: 05/17/24102 Specimen: BLOOD SPEC DESCRIPTION BLOOD SPECIAL REQUESTS NO SPECIAL REQUEST GRAM STAIN RESULT GRAM POSITIVE COCCI IN CLUSTERS GRAM STAIN RESULT -- RESULT CALLED TO [facility]/HECTOR NORTON RN 0102 KLS R AND V CULTURE RESULT GRAM POSITIVE COCCI IN CLUSTERS TANYA HOGAN MD RDS MANAGEMENT TECHNICIAN * Tanya Hogan MD - 05/18/2024 8:55 AM CST Images from the original note were not included. Patient was seen today utilizing telemedicine services. I introduced and identified myself, received verbal consent from the patient to proceed with this video visit and made the patient aware that the same confidentiality and information operator practices apply. Patient Location: [facility] MED/SURG 5TH FLOOR [facility] [address] Dept: [phone] Provider Location: Other location: Office Caregivers in attendance: [facility] VICTOR MANUEL Infectious disease staff nurse Time spent with patient in minutes : 6 [facility] medical group - Infectious Disease Progress Note Assessment/Plan: Chief Complaint: hematuria Assessment Gram-positive bacteremia with permanent pacemaker Complicated UTI due to chronic indwelling Guerra catheter Leukocytosis Plan Vital signs reviewed. Patient is currently afebrile. Labs reviewed, creatinine 0.6 and WBC count 13,000. Septic workup reviewed. May 17 blood culture positive for gram-positive cocci May 16 urine culture positive for gram-positive cocci. May 16 blood culture positive for Staph aureus. Patient has permanent pacemaker. Source of bacteremia remains unclear at this time. We will continue with both IV vancomycin and ceftriaxone and monitor renal function closely. We will continue to follow Subjective SUBJECTIVE : Afebrile patient remains confused. Does not appear to be in any distress. REVIEW OF SYSTEM: Review of Systems Constitutional: Negative for chills and fever. Respiratory: Negative for cough and shortness of breath. Cardiovascular: Negative for chest pain. Gastrointestinal: Negative for diarrhea, nausea and vomiting. Neurological: Patient remained confused PHYSICAL EXAM : Filed Vitals: 05/17/24 1942 05/17/24 2249 05/18/24 0238 05/18/24 0751 BP: 139/73 118/65 (!) 142/79 133/58 Pulse: (!) 118 60 (!) 58 (!) 59 Resp: 20 16 Temp: 98.1 ??F (36.7 ??C) 98.1 ??F (36.7 ??C) 98.2 ??F (36.8 ??C) TempSrc: Oral SpO2: 92% 100% 99% Weight: Height: Physical exam: Physical Exam I talked to patient via [facility]. Also vitals signs were reviewed / as above. Patient did not appear to be in any distress. Patient has altered mental status Allergies Allergen Reactions Tomato Diarrhea Past Medical History: Diagnosis Date A-fib ([facility]) BPH (benign prostatic hyperplasia) CHF (congestive heart failure) ([facility]) Coronary artery disease Dementia without behavioral disturbance ([facility]) Diabetes mellitus ([facility]) Disorder of prostate HLD (hyperlipidemia) Hyperlipidemia Hypertension Pacemaker 09/10/2022 Respiratory failure ([facility]) Sick sinus syndrome ([facility]) Urinary retention Objective as above Medications atorvastatin 80 mg Oral Nightly at bedtime cefTRIAXone 1 g Intravenous Q24H dutasteride 0.5 mg Oral Daily ferrous sulfate EC 324 mg Oral Daily insulin lispro 0-14 Units Subcutaneous TID AC And insulin lispro 0-7 Units Subcutaneous Nightly at bedtime vancomycin 1,500 mg Intravenous Q18H vancomycin pharmacy to dose Intravenous See Admin Instructions acetaminophen, txgkqlecg-oycueuup-jdpkjlgumzw, ondansetron, polyethylene glycol Labs: Recent Labs Lab 05/16/24 1133 05/17/24 0610 WBC 13.44* 23.38* RBC 4.14* 3.38* HGB 11.0* 9.1* HCT 36.0* 29.4* MCV 87.0 87.0 MCH 26.6* 26.9* MCHC 30.6* 31.0* PLT 256 169 RDW 15.9* 16.4* MPV 10.0 10.3 PERNEU 93.7 -- PERLYM 4.7 -- PERMON 0.6 -- PEREOS 0.4 -- PERBASO 0.1 -- NEUC 12.59* 21.74* LYMC 0.63* 0.70* MONOC 0.08 0.94* EOSC 0.06 -- BASOC 0.01 -- DTYPE -- MANUAL DIFFERENTIAL Recent Labs Lab 05/16/24 1133 05/17/24 0610 NA 141 135* K 4.7 3.7 CL 102 104 CO2 30.3 27.0 AGAP 8.7 4.0 BUN 20 28* CR 0.84 0.89 BUNCREATININ -- 31.3* GLU 167* 199* CA 8.9 8.1* TP 7.6 -- ALB 2.9* -- TBIL 0.8 -- ALKP 97 -- AST 14* -- ALT 16 -- Microbiology Results (last 14 days) Procedure Component Value Units Date/Time CULTURE, BACTERIA, BLOOD [[id number]] Collected: 05/17/24608 Order Status: Completed Lab Status: Preliminary result Updated: 05/18/24809 Specimen: BLOOD SPEC DESCRIPTION BLOOD SPECIAL REQUESTS NO SPECIAL REQUEST GRAM STAIN RESULT GRAM POSITIVE COCCI RESEMBLING STAPHYLOCOCCUS SPECIES GRAM STAIN RESULT -- GRAM STAIN CALLED TO AND REPEATED BACK BY NURIA SANTACRUZ RN, AT 0640, 05/18/24. DJW GRAM STAIN RESULT PCR TESTING PERFORMED ON THIS SAMPLE CULTURE RESULT CULTURE REPORT TO FOLLOW. CULTURE, BLOOD, PCR PANEL [[id number]] (Abnormal) Collected: 05/17/24608 Order Status: Completed Lab Status: Final result Updated: 05/18/24 0812 MEC/MREJ RESISTANT GENE PCR (BLD) NOT DETECTED Comment: Note: Antimicrobial resistance can occur via multiple mechanisms. A NOT DETECTED result from the PK Clean[employer] antimicrobial resistance gene assay does not indicate antimicrobial susceptibility. A DETECTED result for a genetic marker of antimicrobial resistance gene assay does not indicate antimicrobial susceptibility. Subculturing is required for species identification and susceptibility testing of isolates. ENTEROCOCCUS FAECALIS PCR (BLD) NOT DETECTED ENTEROCUCCUS FAECIUM PCR (BLD) NOT DETECTED LISTERIA MONOCYTOGENES PCR (BLD) NOT DETECTED STAPH SPECIES PCR (BLD) DETECTED STAPH AUREUS PCR (BLD) -- CALLED TO AND REPEATED BACK BY YESSI SCALES PHARMD AT 0810 ON 05/18/24 DIANA STAPHYLOCOCCUS EPIDERMIDIS PCR (BLD) NOT DETECTED STAPHYLOCOCCUS LUGDUNENSIS PCR (BLD) NOT DETECTED STREPTOCOCCUS PCR (BLD) NOT DETECTED STREP AGALACTIAE PCR (BLD) NOT DETECTED STREP PNEUMONIAE PCR (BLD) NOT DETECTED STREP PYOGENES (GRP A) PCR (BLD) NOT DETECTED ACINETOBACTER BAUMANII PCR (BLD) NOT DETECTED BACTEROIDES FRAGILIS PCR (BLD) NOT DETECTED ENTEROBACTERIACEAE PCR (BLD) NOT DETECTED ENTEROBACTER CLOACAE COMP PCR (BLD) NOT DETECTED ESCHERICHIA COLI PCR (BLD) NOT DETECTED KLEBSIELLA AEROGENES PCR (BLD) NOT DETECTED KLEBSIELLA OXYTOCA PCR (BLD) NOT DETECTED KLEBSIELLA PNEUMONIAE PCR (BLD) NOT DETECTED PROTEUS PCR (BLD) NOT DETECTED SALMONELLA PCR (BLD) NOT DETECTED SERRATIA MARCESCENS PCR (BLD) NOT DETECTED H. INFLUENZAE PCR (BLD) NOT DETECTED N. MENINGITIDIS PCR (BLD) NOT DETECTED PSEUDOMONAS AERUGINOSA PCR (BLD) NOT DETECTED STENOTROPHOMONAS MALTOPHILIA PCR (BLD) NOT DETECTED YA ALBICANS PCR (BLD) NOT DETECTED YA AURIS PCR (BLD) NOT DETECTED YA GLABRATA PCR (BLD) NOT DETECTED YA KRUSEI PCR (BLD) NOT DETECTED YA PARAPSILOSIS PCR (BLD) NOT DETECTED YA TROPICALIS PCR (BLD) NOT DETECTED CRYPTOCOCCUS NEOFORMANS/GATTII PCR (BLD) NOT DETECTED CULTURE, BACTERIA, BLOOD [[id number]] Collected: 05/17/24 0600 Order Status: Canceled Lab Status: No result Specimen: BLOOD CULTURE URINE [[id number]] Collected: 05/16/24 1151 Order Status: Sent Lab Status: In process Updated: 05/16/24 1156 Specimen: URINE, GUERRA CATH CORONAVIRUS (COVID-19) ANTIGEN [[id number]] Collected: 05/16/24 1137 Order Status: Completed Lab Status: Final result Updated: 05/16/24 1228 Specimen: NASAL CORONAVIRUS ANTIGEN IA NEGATIVE Comment: NEGATIVE RESULTS DO NOT RULE OUT [...] USE BY AUTHORIZED LABORATORIES. SPECIMEN TYPE NASAL INFLUENZA A & B [[id number]] Collected: 05/16/24 1137 Order Status: Completed Lab Status: Final result Updated: 05/16/24 1228 Specimen: NASOPHARYNGEAL SWAB SPECIMEN TYPE (INFLUENZA) NASOPHARYNGEAL SWAB INFLUENZA A NEGATIVE INFLUENZA B NEGATIVE Comment: A NEGATIVE RESULT DOES NOT EXCLUDE INFLUENZA VIRUS INFECTION. IF INFLUENZA IS CIRCULATING IN YOUR COMMUNITY, A DIAGNOSIS OF INFLUENZA SHOULD BE CONSIDERED BASED ON A PATIENT'S CLINICAL PRESENTATION AND EMPIRIC ANTIVIRAL TREATMENT SHOULD BE CONSIDERED IF INDICATED. BLOOD CULTURE #1 [[id number]] (Abnormal) Collected: 05/16/24 113 Order Status: Completed Lab Status: Preliminary result Updated: 05/17/24102 Specimen: BLOOD SPEC DESCRIPTION BLOOD SPECIAL REQUESTS NO SPECIAL REQUEST GRAM STAIN RESULT GRAM POSITIVE COCCI IN CLUSTERS GRAM STAIN RESULT -- RESULT CALLED TO [facility]/HECTOR NORTON RN 0102 KLS R AND V CULTURE RESULT GRAM POSITIVE COCCI IN CLUSTERS TANYA HOGAN MD RDS MANAGEMENT TECHNICIAN * Tanya Hogan MD - 05/17/2024 2:25 PM CST Images from the original note were not included. Patient was seen today utilizing telemedicine services. I introduced and identified myself, received verbal consent from the patient to proceed with this video visit and made the patient aware that the same confidentiality and information operator practices apply. Patient Location: [facility] MED/SURG 5TH FLOOR [facility] [address] Provider Location: Other location: Office Caregivers in attendance: [facility] VICTOR MANUEL ID staff nurse Time spent with patient in minutes : 14 [facility] medical group Infectious Disease Consult Note Subjective REASON FOR CONSULT : bacteremia PHYSICIAN REQUESTING CONSULT : Dr Mtz Chief Complaint: hematuria Assessment Gram-positive bacteremia with permanent pacemaker Complicated UTI due to chronic indwelling Guerra catheter Leukocytosis Plan Vital signs reviewed. Patient is currently afebrile and is saturating well on room air. Labs reviewed, creatinine 0.89 and WBC count 23,000. Vancomycin random level is 18.4. Patient had history of Guerra catheter which was changed in [place] [facility]. Patient apparently is confused and cannot provide any history. History was obtained from nursing staff and admitting and ER physicians notes. Patient also has permanent pacemaker. Septic workup reviewed, patient's blood cultures positive for gram-positive cocci. Urine analysis and cultures are also positive. We will start patient on IV vancomycin and ceftriaxone. We will continue to follow HPI: Avila Crocker is a 79-year-old male With past medical history as mentioned below was admitted to [facility] after patient presented with complaint of hematuria. Patient initially presented to [facility] with complaint of chest pain. Patient has past medical history of coronary artery disease, permanent pacemaker placement due to sick sinus syndrome. When patient was transferred to [facility] patient was found to have hematuria. Also during further workup patient's blood cultures were positive. Infectious disease has been consulted for further evaluationand antibiotic management. ALLERGY : Allergies Allergen Reactions Tomato Diarrhea PAST MEDICAL HISTORY: Past Medical History: Diagnosis Date A-fib ([facility]) BPH (benign prostatic hyperplasia) CHF (congestive heart failure) ([facility]) Coronary artery disease Dementia without behavioral disturbance ([facility]) Diabetes mellitus ([facility]) Disorder of prostate HLD (hyperlipidemia) Hyperlipidemia Hypertension Pacemaker 09/10/2022 Respiratory failure ([facility]) Sick sinus syndrome ([facility]) Urinary retention PAST SURGICAL HISTORY: Past Surgical History: Procedure Laterality Date CORONARY ART DIL,ONE VESSEL 2010 INSER COBIAN PACER XVENOUS ATRIAL 05/04/2013 PACEMAKER FAMILY HISTORY: Family History Problem Relation Name Age of Onset Heart Attack Mother SOCIAL HISTORY: Social History Socioeconomic History Marital status: Spouse name: Not on file Number of children: 2 Years of education: Not on file Highest education level: Not on file Occupational History Employer: RETIRED Tobacco Use Smoking status: Former Current packs/day: 0.00 Average packs/day: 1 pack/day for 29.6 years (29.6 ttl pk-yrs) Types: Cigarettes, Pipe Start date: 02/14/1966 Quit date: 10/07/1995 Years since quittin.6 Smokeless tobacco: Never Substance and Sexual Activity Alcohol use: No Drug use: No Sexual activity: Not Currently Other Topics Concern Exercise No Special Diet No Caffeine Concern No Social History Narrative Not on file Social Drivers of Health Financial Resource Strain: Low Risk (05/17/2024) Overall Financial Resource Strain (CARDIA) Difficulty of Paying Living Expenses: Not hard at all Food Insecurity: No Food Insecurity (05/17/2024) Hunger Vital Sign Worried About Running Out of Food in the Last Year: Never true Ran Out of Food in the Last Year: Never true Transportation Needs: No Transportation Needs (05/17/2024) PRAPARE - Transportation Lack of Transportation (Medical): No Lack of Transportation (Non-Medical): No Physical Activity: Not on file Stress: No Stress Concern Present (07/27/2023) [place] [facility] - Occupational Stress Questionnaire Feeling of Stress : Not at all Social Connections: Socially Isolated (07/27/2023) Social Connection and Isolation Panel [NHANES] Frequency of Communication with Friends and Family: Never Frequency of Social Gatherings with Friends and Family: Never Attends Episcopalian Services: Never Active Member of Clubs or Organizations: No Attends Club or Organization Meetings: Never Marital Status: Intimate Partner Violence: Not At Risk (05/17/2024) Humiliation, Afraid, Rape, and Kick questionnaire Fear of Current or Ex-Partner: No Emotionally Abused: No Physically Abused: No Sexually Abused: No Housing Stability: Low Risk (05/17/2024) Housing Stability Vital Sign Unable to Pay for Housing in the Last Year: No Number of Times Moved in the Last Year: 0 Homeless in the Last Year: No Prior to Admission medications Medication Sig Start Date End Date Taking? Authorizing Provider apixaban (ELIQUIS) 5 MG tablet Take 1 tablet (5 mg total) by mouth 2 (two) times daily. 09/19/22 YesMadan Palomo MD atorvastatin (LIPITOR) 80 MG tablet Take 1 tablet (80 mg total) by mouth nightly at bedtime. Yes Default History Genericprovider carvedilol (COREG) 6.25 MG tablet Take 1 tablet (6.25 mg total) by mouth 2 (two) times daily. 03/02/24 Yes Madan Palomo MD ferrous sulfate EC 325 (65 Fe) MG tablet Take 1 tablet by mouth daily. Yes Default History Genericprovider finasteride (PROSCAR) 5 MG tablet Take 1 tablet (5 mg total) by mouth daily. Yes Default History Genericprovider furosemide (LASIX) 40 MG tablet Take 1 tablet (40 mg total) by mouth daily. 08/01/23 Yes Sandra Short NP lisinopril (PRINIVIL) 5 MG tablet Take 1 tablet (5 mg total) by mouth daily. 03/02/24 Yes Madan Palomo MD loperamide (IMODIUM) 2 MG capsule Take 1 capsule (2 mg total) by mouth 4 (four) times daily as needed for Diarrhea. Yes Default History Genericprovider magnesium oxide 400 (241.3 Mg) MG tablet Take 1 tablet (400 mg total) by mouth daily. Yes [facility] metFORMIN 1000 MG tablet Take 1 tablet (1,000 mg total) by mouth 2 (two) times daily. 09/13/14 Yes Doc [facility] nitroglycerin (NITROSTAT) 0.[address] 1 tablet (0.4 mg total) under the tongue every 5 (five) minutes as needed for Chest Pain. Yes Default History Genericprovider potassium chloride CR (KLOR-CON M) 20 MEQ tablet Take 1 tablet (20 mEq total) by mouth daily. 08/01/23 Yes Sandra Short NP vitamin B-12 (CYANOCOBALAMIN) 1000 MCG tablet Take 1 tablet (1,000 mcg total) by mouth daily. Yes Default History Genericprovider acetaminophen (TYLENOL) 500 MG tablet Take 2 tablets (1,000 mg total) by mouth every 6 (six) hours as needed for Pain. Default History Genericprovider polyethylene glycol powder Take 17 g by mouth daily as needed (constipation). 06/11/18 Doc [facility] REVIEW OF SYSTEM: Review of Systems Unable to perform ROS: Dementia Objective Filed Vitals: 05/16/24 2314 05/17/24 0447 05/17/24 0728 05/17/24 1101 BP: 91/56 96/61 102/64 107/60 Pulse: 60 60 (!) 59 (!) 57 Resp: Temp: 97.7 ??F (36.5 ??C) 97.7 ??F (36.5 ??C) 97.9 ??F (36.6 ??C) TempSrc: Oral Axillary Oral Oral SpO2: 100% 100% 98% 98% Weight: Height: PHYSICAL EXAM: Physical Exam I talked to patient via [facility]. Also vitals signs were reviewed / as above. Patient did not appear to be in any distress. Patient has dementia, mental status - baseline Intake/Output 24H Total: Intake/Output Summary (Last 24 hours) at 05/17/2024 1425 Last data filed at 05/17/2024 1229 Gross per 24 hour Intake 100 ml Output -- Net 100 ml Medications atorvastatin 80 mg Oral Nightly at bedtime cefTRIAXone 1 g Intravenous Q24H dutasteride 0.5 mg Oral Daily ferrous sulfate EC 324 mg Oral Daily insulin lispro 0-14 Units Subcutaneous TID AC And insulin lispro 0-7 Units Subcutaneous Nightly at bedtime vancomycin 1,500 mg Intravenous Q18H vancomycin pharmacy to dose Intravenous See Admin Instructions acetaminophen, bhjellxvg-oojvhcwd-mysketijtxg, ondansetron, polyethylene glycol Labs: Recent Labs Lab 05/16/24 1133 05/17/24 0610 WBC 13.44* 23.38* RBC 4.14* 3.38* HGB 11.0* 9.1* HCT 36.0* 29.4* MCV 87.0 87.0 MCH 26.6* 26.9* MCHC 30.6* 31.0* PLT 256 169 RDW 15.9* 16.4* MPV 10.0 10.3 PERNEU 93.7 -- PERLYM 4.7 -- PERMON 0.6 -- PEREOS 0.4 -- PERBASO 0.1 -- NEUC 12.59* 21.74* LYMC 0.63* 0.70* MONOC 0.08 0.94* EOSC 0.06 -- BASOC 0.01 -- DTYPE -- MANUAL DIFFERENTIAL Recent Labs Lab 05/16/24 1133 05/17/24 0610 NA 141 135* K 4.7 3.7 CL 102 104 CO2 30.3 27.0 AGAP 8.7 4.0 BUN 20 28* CR 0.84 0.89 BUNCREATININ -- 31.3* GLU 167* 199* CA 8.9 8.1* TP 7.6 -- ALB 2.9* -- TBIL 0.8 -- ALKP 97 -- AST 14* -- ALT 16 -- Recent Labs Lab 05/17/24 0610 HGBA1C 7.7* TSH 2.810 Recent Labs Lab 05/17/24 0610 INR 1.6 Recent Labs Lab 05/16/24 1133 05/16/24 1333 05/16/24 1545 LACTICACID 4.2* 3.3* 2.8* No results for input(s): PH , PCO2 , PO2 , R2USDHHTFWCO , BICARBWB , BASEDEFICIT , BASEEXCESS in the last 168 hours. Results for orders placed or performed during the hospital encounter of 02/17/23 URINALYSIS, AUTO, COMPLETE Collection Time: 02/17/23 10:00 AM Result Value Ref Range COLOR (U) LIGHT YELLOW TRANSPARENCY CLEAR SPECIFIC GRAVITY (U) 1.010 1.003 - 1.030 U PH 6.5 5.0 - 9.0 LEUKOCYTES (U) NEGATIVE NEGATIVE NITRITES NEGATIVE NEGATIVE PROTEIN RANDOM (U) NEGATIVE NEGATIVE GLUCOSE (U) NORMAL NORMAL KETONES MG/DL (U) NEGATIVE NEGATIVE UROBILINOGEN NORMAL NORMAL MG/DL BILIRUBIN (U) NEGATIVE NEGATIVE BLOOD (U) NEGATIVE NEGATIVE MUCUS PRESENT HYALINE CASTS 0-5 WBC/HPF 0-5 0 - 5 /HPF COMMENT (U) URINE RESULTS Microbiology Results (last 14 days) Procedure Component Value Units Date/Time CULTURE, BACTERIA, BLOOD [[id number]] Collected: 05/17/24 0609 Order Status: Completed Lab Status: Preliminary result Updated: 05/17/24 1018 Specimen: BLOOD SPEC DESCRIPTION BLOOD SPECIAL REQUESTS NO SPECIAL REQUEST CULTURE RESULT NO GROWTH <24 HRS CULTURE, BACTERIA, BLOOD [[id number]] Collected: 05/17/24 0600 Order Status: Canceled Lab Status: No result Specimen: BLOOD CULTURE URINE [[id number]] Collected: 05/16/24 1151 Order Status: Sent Lab Status: In process Updated: 05/16/24 1156 Specimen: URINE, GUERRA CATH CORONAVIRUS (COVID-19) ANTIGEN [[id number]] Collected: 05/16/24 1137 Order Status: Completed Lab Status: Final result Updated: 05/16/24 1228 Specimen: NASAL CORONAVIRUS ANTIGEN IA NEGATIVE Comment: NEGATIVE RESULTS DO NOT RULE OUT [...] USE BY AUTHORIZED LABORATORIES. SPECIMEN TYPE NASAL INFLUENZA A & B [[id number]] Collected: 05/16/24 1137 Order Status: Completed Lab Status: Final result Updated: 05/16/24 1228 Specimen: NASOPHARYNGEAL SWAB SPECIMEN TYPE (INFLUENZA) NASOPHARYNGEAL SWAB INFLUENZA A NEGATIVE INFLUENZA B NEGATIVE Comment: A NEGATIVE RESULT DOES NOT EXCLUDE INFLUENZA VIRUS INFECTION. IF INFLUENZA IS CIRCULATING IN YOUR COMMUNITY, A DIAGNOSIS OF INFLUENZA SHOULD BE CONSIDERED BASED ON A PATIENT'S CLINICAL PRESENTATION AND EMPIRIC ANTIVIRAL TREATMENT SHOULD BE CONSIDERED IF INDICATED. BLOOD CULTURE #1 [[id number]] (Abnormal) Collected: 05/16/24 113 Order Status: Completed Lab Status: Preliminary result Updated: 05/17/24 010 Specimen: BLOOD SPEC DESCRIPTION BLOOD SPECIAL REQUESTS NO SPECIAL REQUEST GRAM STAIN RESULT GRAM POSITIVE COCCI IN CLUSTERS GRAM STAIN RESULT -- RESULT CALLED TO [facility]/HECTOR NORTON RN 0102 KLS R AND V CULTURE RESULT GRAM POSITIVE COCCI IN CLUSTERS Imaging: Radiology Results (Last 30 days) 05/16/24 1143 XR CHEST PORTABLE Final result Impression: IMPRESSION: 1) No radiographic evidence of active disease the chest. Ordered By: ROBERT WATKINS Interpreted By: Flo Gardner MD, 05/16/2024 12:02 PM 05/09/241953 CT ABD+PEL W IV CON ONLY Final result Impression: IMPRESSION: 1. Findings compatible with nonspecific enteritis/colitis and diarrheal state. No evidence of bowel obstruction, as clinically queried. 2. Guerra catheter bulb appears in low lying position within the enlarged prostate. Recommend repositioning. 3. 1.4 cm hypoenhancing focus in the pancreatic tail. This could possibly represent benign focal fatty infiltration, though recommend nonemergent further evaluation with pancreatic protocol MRI to exclude cyst or mass. 4. Small fat-containing umbilical hernia without evidence of complication. 5. Mild anasarca, more pronounced inferiorly. 6. 0.7 cm pulmonary nodule in the lingula. Recommend follow-up chest CT in 6-12 months. 7. Other chronic/nonurgent findings, as above. Referred By: Interpreted By: Rj Mendoza MD, 05/09/2024 8:18 PM EKG: No results found for this visit on 05/16/24. Echo: TANYA HOGAN MD RDS MANAGEMENT TECHNICIAN * Chitra Schwartz NP - 05/17/2024 9:00 AM CSTAssociated Order(s): IP CONSULT TO UROLOGY Images from the original note were not included. Urologic Surgery Inpatient Consult Note Encounter Date: 05/17/2024 Patient Name: Avila Crocker Requesting Provider: Dr. Mtz Reason for Consultation: Sepsis with catheter-associated urinary tract infection (CAUTI) and bacteremia History of Present Illness: 79yo male transferred from [place] ED with severe sepsis, afebrile with positive blood cultures showing gram-positive cocci in clusters. Initially presented to [place] ED with chest pain which did not respond to nitroglycerine. Currently denies chest pain, shortness of breath, or abdominal pain. Recent ED visit on 05/09/2024 for incarcerated umbilical hernia that was reduced. 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 Last evaluated in clinic 11/[address] Hastings: Hx obstructive BPH managed with chronic indwelling Guerra. He does not know why he was admitted. Alert to self only. Indwelling catheter intact, draining clear tamara urine, no clots. Medical history includes hypertension, dyslipidemia, atrial fibrillation on Eliquis, CAD, cardiomyopathy with improved EF from 35-40% in 2021 to 55-60% on 07/27/2023, sick sinus syndrome status post pacemaker placement in 2012 with upgrade to biventricular pacemaker in August 2022, and dementia. Previously evaluated by urology on 12/08/2023 for prostatism with significant urinary retention and bilateral hydronephrosis. PERTINENT LABS: 05/17/2024 - WBC 24 from 13, HGB 9.1, Cr 0.89 05/16/2024 UA 3+ LE, Nitrite +, 3+ blood, 50-100 WBC, 3+ bacteria - Urine culture: Providencia stuartii, susceptible to Rocephin PERTINENT IMAGIN05/09/2024 CT Abdomen/Pelvis - Guerra catheter bulb in low-lying position within enlarged prostate, urinary bladder wall thickening consistent with chronic outlet obstruction, no hydronephrosis Past Medical History: Diagnosis Date A-fib ([facility]) BPH (benign prostatic hyperplasia) CHF (congestive heart failure) ([facility]) Coronary artery disease Dementia without behavioral disturbance ([facility]) Diabetes mellitus ([facility]) Disorder of prostate HLD (hyperlipidemia) Hyperlipidemia Hypertension Pacemaker 09/10/2022 Respiratory failure ([facility]) Sick sinus syndrome ([facility]) Urinary retention Past Surgical History: Procedure Laterality Date CORONARY ART DIL,ONE VESSEL 2010 INSER COBIAN PACER XVENOUS ATRIAL 05/04/2013 PACEMAKER Social History Socioeconomic History Marital status: Number of children: 2 Occupational History Employer: RETIRED Tobacco Use Smoking status: Former Current packs/day: 0.00 Average packs/day: 1 pack/day for 29.6 years (29.6 ttl pk-yrs) Types: Cigarettes, Pipe Start date: 02/14/1966 Quit date: 10/07/1995 Years since quittin.6 Smokeless tobacco: Never Substance and Sexual Activity Alcohol use: No Drug use: No Sexual activity: Not Currently Other Topics Concern Exercise No Special Diet No Caffeine Concern No Social Drivers of Health Financial Resource Strain: Low Risk (05/17/2024) Overall Financial Resource Strain (CARDIA) Difficulty of Paying Living Expenses: Not hard at all Food Insecurity: No Food Insecurity (05/17/2024) Hunger Vital Sign Worried About Running Out of Food in the Last Year: Never true Ran Out of Food in the Last Year: Never true Transportation Needs: No Transportation Needs (05/17/2024) PRAPARE - Transportation Lack of Transportation (Medical): No Lack of Transportation (Non-Medical): No Stress: No Stress Concern Present (07/27/2023) [place] [facility] [employer] [facility] - Occupational Stress Questionnaire Feeling of Stress : Not at all Social Connections: Socially Isolated (07/27/2023) Social Connection and Isolation Panel [NHANES] Frequency of Communication with Friends and Family: Never Frequency of Social Gatherings with Friends and Family: Never Attends Episcopalian Services: Never Active Member of Clubs or Organizations: No Attends Club or Organization Meetings: Never Marital Status: Intimate Partner Violence: Not At Risk (05/17/2024) Humiliation, Afraid, Rape, and Kick questionnaire Fear of Current or Ex-Partner: No Emotionally Abused: No Physically Abused: No Sexually Abused: No Housing Stability: Low Risk (05/17/2024) Housing Stability Vital Sign Unable to Pay for Housing in the Last Year: No Number of Times Moved in the Last Year: 0 Homeless in the Last Year: No Family History Problem Relation Name Age of Onset Heart Attack Mother Medications: MEDICATIONS FOR CURRENT ENCOUNTER: SCHEDULED MEDICATIONS: cefTRIAXone 1 g Intravenous Q24H insulin lispro 0-14 Units Subcutaneous TID AC And insulin lispro 0-7 Units Subcutaneous Nightly at bedtime vancomycin 1,500 mg Intravenous Q18H vancomycin pharmacy to dose Intravenous See Admin Instructions CONTINUOUS MEDICATIONS: PRN MEDICATIONS: acetaminophen, snvgftxjo-jxdlnkxs-ukdofxbqoja, ondansetron, polyethylene glycol Allergies: Allergies Allergen Reactions Tomato Diarrhea Review of Systems: A complete 10-point review of systems was reviewed with the patient. Pertinent positives and negatives are in the History of Present Illness and Past Medical History. All other systems are unremarkable. Vitals Filed Vitals: 05/16/24 2132 05/16/24 2314 05/17/24 0447 05/17/24 0728 BP: 99/61 91/56 96/61 102/64 Pulse: 65 60 60 (!) 59 Resp: 12 12 12 14 Temp: 98.1 ??F (36.7 ??C) 97.7 ??F (36.5 ??C) 97.7 ??F (36.5 ??C) 97.9 ??F (36.6 ??C) TempSrc: Axillary Oral Axillary SpO2: 98% 100% 100% 98% Weight: 84 kg (185 lb 3 oz) Height: 1.829 m (6') Height: 182.9 cm (6') Weight: 84 kg (185 lb 3 oz) Intake / Output: No intake or output data in the 24 hours ending 05/17/24 0900 Physical Examination: General: Patient is an elderly male, appears chronically ill Head: Normocephalic, atraumatic. Nares are symmetric without nasal flaring or respiratory distress.No lip cyanosis. Eyes: Sclera anicteric. Cardiovascular: Peripheral perfusion appears adequate. No digital clubbing or cyanosis present. Chest: Non-labored respirations. Comfortable respiratory effort without recruitment of accessory respiratory muscles. Abdominal: Abdomen soft, nontender, nondistended. No palpable masses. Gu: Indwelling Guerra, clear tamara urine, no hematuria Musculoskeletal: Normal station and posture. Moves all extremities symmetrically. Neurological: No focal neurologic deficit. Psychiatric: Appropriate affect and mood, pleasantly confused Skin: Normal coloration and turgor. Hematological/Immunological: No bleeding gums or jaundice. Laboratory: Recent Labs Lab 05/16/24 1133 05/17/24 0610 WBC 13.44* 23.38* HGB 11.0* 9.1* HCT 36.0* 29.4* Recent Labs Lab 05/16/24 1133 05/17/24 0610 CO2 30.3 27.0 ALT 16 -- AST 14* -- Recent Labs Lab 05/17/24 0610 INR 1.6 Lab Results Component Value Date PSA 6.64 (H) 12/08/2023 Invalid input(s): COLORU , CLARITYU , SPECGRAVU , PHURINE , PROTURQL , GLUCOSEUR , KETONESU , BILIRUBINU , BLOODUR , UROBILINOGUR , NITRITEU , LEUKESTUR Microbiology: Microbiology Results (last 14 days) Procedure Component Value Units Date/Time CULTURE, BACTERIA, BLOOD [[id number]] Collected: 05/17/24 0609 Order Status: Sent Lab Status: In process Updated: 05/17/24 0610 Specimen: BLOOD CULTURE, BACTERIA, BLOOD [[id number]] Collected: 05/17/24 06 Order Status: Canceled Lab Status: No result Specimen: BLOOD CULTURE URINE [[id number]] Collected: 05/16/24 1151 Order Status: Sent Lab Status: In process Updated: 05/16/24 1156 Specimen: URINE, GUERRA CATH CORONAVIRUS (COVID-19) ANTIGEN [[id number]] Collected: 05/16/24 1137 Order Status: Completed Lab Status: Final result Updated: 11/25/24 1228 Specimen: NASAL CORONAVIRUS ANTIGEN IA NEGATIVE Comment: NEGATIVE RESULTS DO NOT RULE OUT [...] USE BY AUTHORIZED LABORATORIES. SPECIMEN TYPE NASAL INFLUENZA A & B [[id number]] Collected: 05/16/241136 Order Status: Completed Lab Status: Final result Updated: 05/16/241227 Specimen: NASOPHARYNGEAL SWAB SPECIMEN TYPE (INFLUENZA) NASOPHARYNGEAL SWAB INFLUENZA A NEGATIVE INFLUENZA B NEGATIVE Comment: A NEGATIVE RESULT DOES NOT EXCLUDE INFLUENZA VIRUS INFECTION. IF INFLUENZA IS CIRCULATING IN YOUR COMMUNITY, A DIAGNOSIS OF INFLUENZA SHOULD BE CONSIDERED BASED ON A PATIENT'S CLINICAL PRESENTATION AND EMPIRIC ANTIVIRAL TREATMENT SHOULD BE CONSIDERED IF INDICATED. BLOOD CULTURE #1 [[id number]] (Abnormal) Collected: 05/16/241132 Order Status: Completed Lab Status: Preliminary result Updated: 05/17/24102 Specimen: BLOOD SPEC DESCRIPTION BLOOD SPECIAL REQUESTS NO SPECIAL REQUEST GRAM STAIN RESULT GRAM POSITIVE COCCI IN CLUSTERS GRAM STAIN RESULT -- RESULT CALLED TO [facility] PETTY/HECTOR NORTON RN 0102 KLS R AND V CULTURE RESULT GRAM POSITIVE COCCI IN CLUSTERS Microbiology Results (last 14 days) Procedure Component Value Units Date/Time CULTURE, BACTERIA, BLOOD [[id number]] Collected: 05/17/24 0609 Order Status: Sent Lab Status: In process Updated: 05/17/24 06 Specimen: BLOOD CULTURE, BACTERIA, BLOOD [[id number]] Collected: 05/17/24 06 Order Status: Canceled Lab Status: No result Specimen: BLOOD CULTURE URINE [[id number]] Collected: 05/16/24 1151 Order Status: Sent Lab Status: In process Updated: 05/16/24 115 Specimen: URINE, GUERRA CATH CORONAVIRUS (COVID-19) ANTIGEN [[id number]] Collected: 05/16/24 113 Order Status: Completed Lab Status: Final result Updated: 05/16/241227 Specimen: NASAL CORONAVIRUS ANTIGEN IA NEGATIVE Comment: NEGATIVE RESULTS DO NOT RULE OUT [...] USE BY AUTHORIZED LABORATORIES. SPECIMEN TYPE NASAL INFLUENZA A & B [[id number]] Collected: 05/16/24 1137 Order Status: Completed Lab Status: Final result Updated: 05/16/24 1228 Specimen: NASOPHARYNGEAL SWAB SPECIMEN TYPE (INFLUENZA) NASOPHARYNGEAL SWAB INFLUENZA A NEGATIVE INFLUENZA B NEGATIVE Comment: A NEGATIVE RESULT DOES NOT EXCLUDE INFLUENZA VIRUS INFECTION. IF INFLUENZA IS CIRCULATING IN YOUR COMMUNITY, A DIAGNOSIS OF INFLUENZA SHOULD BE CONSIDERED BASED ON A PATIENT'S CLINICAL PRESENTATION AND EMPIRIC ANTIVIRAL TREATMENT SHOULD BE CONSIDERED IF INDICATED. BLOOD CULTURE #1 [[id number]] (Abnormal) Collected: 05/16/24 1133 Order Status: Completed Lab Status: Preliminary result Updated: 05/17/24 0103 Specimen: BLOOD SPEC DESCRIPTION BLOOD SPECIAL REQUESTS NO SPECIAL REQUEST GRAM STAIN RESULT GRAM POSITIVE COCCI IN CLUSTERS GRAM STAIN RESULT -- [facility]HECTOR NORTON RN 0102 KLS R AND V CULTURE RESULT GRAM POSITIVE COCCI IN CLUSTERS Imaging: Radiology Results (Last 30 days) 05/16/24 1143 XR CHEST PORTABLE Final result Impression: IMPRESSION: 1) No radiographic evidence of active disease the chest. Ordered By: ROBERT WATKINS Interpreted By: Flo Gardner MD, 05/16/2024 12:02 PM 05/09/241953 CT ABD+PEL W IV CON ONLY Final result Impression: IMPRESSION: 1. Findings compatible with nonspecific enteritis/colitis and diarrheal state. No evidence of bowel obstruction, as clinically queried. 2. Guerra catheter bulb appears in low lying position within the enlarged prostate. Recommend repositioning. 3. 1.4 cm hypoenhancing focus in the pancreatic tail. This could possibly represent benign focal fatty infiltration, though recommend nonemergent further evaluation with pancreatic protocol MRI to exclude cyst or mass. 4. Small fat-containing umbilical hernia without evidence of complication. 5. Mild anasarca, more pronounced inferiorly. 6. 0.7 cm pulmonary nodule in the lingula. Recommend follow-up chest CT in 6-12 months. 7. Other chronic/nonurgent findings, as above. Referred By: Interpreted By: Rj Mendoza MD, 05/09/2024 8:18 PM I have personally reviewed available radiographic images, and if available, the radiology report(s). I have discussed the results of the clinical lab tests and radiographic images with the patient. Assessment: - CAUTI with gram-positive bacteremia and severe sepsis - No gross hematuria on exam - Unknown if urine for UA/culture was collected from old indwelling catheter, does not appear to have been exchanged - Benign prostatic hyperplasia with chronic indwelling Guerra catheter Recommendations: Antibiotic management per primary team Monitor for gross hematuria; if develops, replace indwelling Guerra with 22Fr 3- way catheter (currently tamara urine) Patient is a poor surgical candidate for prostate intervention; continue monthly catheter changes at his nursing facility No plan for inpatient urologic intervention -------- Chitra Schwartz, MSN, RN, [facility] Cosigned by Arias Art MD at 05/17/2024 1:30 PM RECORDS MANAGEMENT TECHNICIAN RDS MANAGEMENT TECHNICIAN RDS MANAGEMENT TECHNICIAN documented in this encounter Nursing Notes * Tonya Gaona RN - 05/23/2024 10:58 AM CST Attempted to contact family at this time to obtain consent, unsuccessful. RDS MANAGEMENT TECHNICIAN * Hermelinda Angel RN - 05/22/2024 8:27 AM CST This RN attempted to give patient AM medication. Medication crushed and placed in applesauce. PT spit medication out at this RN and refused to take. Pt then made fists and acted like he was going to hit this RN. Dr. Lema notified of pt behavior. Hermelinda Angel RN RDS MANAGEMENT TECHNICIAN * Pam Sims RN - 05/21/2024 5:19 PM CST Pt agitated yelling racial slurs and grabbing at this nurse during patient care. RDS MANAGEMENT TECHNICIAN * Hector Norton RN - 05/16/2024 10:58 PM CST Called pt's son, Amadeo Crocker ([phone]), did not get a hold of Amadeo, left a voice message. Called pt's daughter, Sherri Mesa ([phone]), was able to get a hold of Sherri. Updated Sherri on pt transfer to [facility], updated her on patient's plan of care. All questions & concerns were addressed at this time. RDS MANAGEMENT TECHNICIAN * Mono Wolf RN - 05/16/2024 6:13 PM CST Report rcvd from [facility] ED, pt still there staff will call when leaving fro [facility]. 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 Novegetations visualized on PPM wires. Complications: None Specimen(s) Removed: None Anesthesia: per anesthesia Estimated Blood Loss: Minimal Percy Landa MD RDS MANAGEMENT TECHNICIAN documented in this encounter Plan of Treatment Upcoming Encounters Date Type Department Care Team (Latest Contact Info) Description 06/09/2024 2:20 PM RECORDS MANAGEMENT TECHNICIAN Telemedicine [facility] [address] [place] [address] Tanya Hogan MD [address] [place], [place] [id number] 06/21/2024 1:30 AM RECORDS MANAGEMENT TECHNICIAN Allied Health/Nurse Visit [facility] [address] [place] [address] Madan Palomo MD [address] [place] [address] 03/01/2025 11:00 AM CDT Allied Health/Nurse Visit [place] [address] [place] [phone] Norma Rowland PA-C [address] [place] [address] 03/01/2025 11:00 AM CDT Office Visit [place] [address] [place] [phone] Norma Rowland PA-C [address] [place] [address] Pending Results Name Type Priority Associated Diagnoses Date /Time XA GENERIC ORIENTOR Cardiac Cath Today 07/2023 2:50 PM RECORDS MANAGEMENT TECHNICIAN Scheduled Orders Name Type Priority Associated Diagnoses Orde r Schedule XA GENERIC ORIENTOR Cardiac Cath Today One time imaging One time imaging for 1 Occurrences starting 05/23/2024 until 05/23/2024 documented as of this encounter Procedures Procedure Name Priority Date/Time Associated Diagnosis Comments POCT GLUCOSE - ESPINOSA DOCKED DEVICE Routine 05/25/2024 11:23 AM RECORDS MANAGEMENT TECHNICIAN POCT GLUCOSE - ESPINOSA DOCKED DEVICE Routine 05/25/2024 6:21 AM RECORDS MANAGEMENT TECHNICIAN COMPREHENSIVE METABOLIC PANEL Routine 05/25/2024 4:35 AM RECORDS MANAGEMENT TECHNICIAN CBC W/DIFF AUTOMATED Routine 05/25/2024 4:35 AM RECORDS MANAGEMENT TECHNICIAN MAGNESIUM Routine 05/25/2024 4:35 AM RECORDS MANAGEMENT TECHNICIAN POCT GLUCOSE - ESPINOSA DOCKED DEVICE Routine 05/24/2024 7:37 PM RECORDS MANAGEMENT TECHNICIAN POCT GLUCOSE - ESPINOSA DOCKED DEVICE Routine 05/24/2024 4:32 PM RECORDS MANAGEMENT TECHNICIAN XR SPEECH SWALLOW?VICTOR MANUEL ONLY Today 05/24/2024 1:47 PM RECORDS MANAGEMENT TECHNICIAN POCT GLUCOSE - ESPINOSA DOCKED DEVICE Routine 05/24/2024 11:01 AM RECORDS MANAGEMENT TECHNICIAN POCT GLUCOSE - ESPINOSA DOCKED DEVICE Routine 05/24/2024 6:16 AM RECORDS MANAGEMENT TECHNICIAN BASIC METABOLIC PANEL Routine 05/24/2024 5:15 AM RECORDS MANAGEMENT TECHNICIAN CBC W/DIFF AUTOMATED Routine 05/24/2024 5:15 AM RECORDS MANAGEMENT TECHNICIAN MAGNESIUM Routine 05/24/2024 5:15 AM RECORDS MANAGEMENT TECHNICIAN XR CHEST PORTABLE STAT 05/24/2024 12: 17 AM RECORDS MANAGEMENT TECHNICIAN POCT GLUCOSE - ESPINOSA DOCKED DEVICE Routine 05/23/2024 7:48 PM RECORDS MANAGEMENT TECHNICIAN POCT GLUCOSE - ESPINOSA DOCKED DEVICE Routine 05/23/2024 3:50 PM RECORDS MANAGEMENT TECHNICIAN USE TRANSESOPHAGEAL ECHO Today 05/23/2024 2:50 PM RECORDS MANAGEMENT TECHNICIAN POCT GLUCOSE - ESPINOSA DOCKED DEVICE Routine 05/23/2024 10:43 AM RECORDS MANAGEMENT TECHNICIAN POCT GLUCOSE - ESPINOSA DOCKED DEVICE Routine 05/23/2024 8:41 AM RECORDS MANAGEMENT TECHNICIAN BASIC METABOLIC PANEL STAT 05/23/2024 7:58 AM RECORDS MANAGEMENT TECHNICIAN MAGNESIUM STAT 05/23/2024 7:58 AM RECORDS MANAGEMENT TECHNICIAN CK (CPK) STAT 05/23/2024 7:58 AM RECORDS MANAGEMENT TECHNICIAN POCT GLUCOSE - ESPINOSA DOCKED DEVICE Routine 05/23/2024 6:17 AM RECORDS MANAGEMENT TECHNICIAN CBC W/DIFF AUTOMATED Routine 05/23/2024 5:15 AM RECORDS MANAGEMENT TECHNICIAN POCT GLUCOSE - ESPINOSA DOCKED DEVICE Routine 05/22/2024 7:43 PM RECORDS MANAGEMENT TECHNICIAN POCT GLUCOSE - ESPINOSA DOCKED DEVICE Routine 05/22/2024 3:35 PM RECORDS MANAGEMENT TECHNICIAN POCT GLUCOSE - ESPINOSA DOCKED DEVICE Routine 05/22/2024 11:04 AM RECORDS MANAGEMENT TECHNICIAN POCT GLUCOSE - ESPINOSA DOCKED DEVICE Routine 05/22/2024 6:32 AM RECORDS MANAGEMENT TECHNICIAN BASIC METABOLIC PANEL Routine 05/22/2024 5:26 AM RECORDS MANAGEMENT TECHNICIAN CBC W/DIFF AUTOMATED Routine 05/22/2024 5:26 AM RECORDS MANAGEMENT TECHNICIAN MAGNESIUM Routine 05/22/2024 5:26 AM RECORDS MANAGEMENT TECHNICIAN POCT GLUCOSE - ESPINOSA DOCKED DEVICE Routine 05/21/2024 8:43 PM RECORDS MANAGEMENT TECHNICIAN POCT GLUCOSE - ESPINOSA DOCKED DEVICE Routine 05/21/2024 3:52 PM RECORDS MANAGEMENT TECHNICIAN POCT GLUCOSE - ESPINOSA DOCKED DEVICE Routine 05/21/2024 10:26 AM RECORDS MANAGEMENT TECHNICIAN CULTURE, BACTERIA, BLOOD Routine 05/21/2024 10:25 AM RECORDS MANAGEMENT TECHNICIAN POCT GLUCOSE - ESPINOSA DOCKED DEVICE Routine 05/21/2024 7:59 AM RECORDS MANAGEMENT TECHNICIAN BASIC METABOLIC PANEL Routine 05/21/2024 4:28 AM RECORDS MANAGEMENT TECHNICIAN CBC W/DIFF AUTOMATED Routine 05/21/2024 4:28 AM RECORDS MANAGEMENT TECHNICIAN MAGNESIUM Routine 05/21/2024 4:28 AM RECORDS MANAGEMENT TECHNICIAN CK (CPK) Routine 05/21/2024 4:28 AM RECORDS MANAGEMENT TECHNICIAN POCT GLUCOSE - ESPINOSA DOCKED DEVICE Routine 05/20/2024 8:00 PM RECORDS MANAGEMENT TECHNICIAN POCT GLUCOSE - ESPINOSA DOCKED DEVICE Routine 05/20/2024 3:20 PM RECORDS MANAGEMENT TECHNICIAN USE ECHOCARDIOGRAM W CON Today 05/20/2024 2:33 PM RECORDS MANAGEMENT TECHNICIAN POCT GLUCOSE - ESPINOSA DOCKED DEVICE Routine 05/20/2024 11:29 AM RECORDS MANAGEMENT TECHNICIAN POCT GLUCOSE - ESPINOSA DOCKED DEVICE Routine 05/20/2024 6:18 AM RECORDS MANAGEMENT TECHNICIAN BASIC METABOLIC PANEL Routine 05/20/2024 5:18 AM RECORDS MANAGEMENT TECHNICIAN CBC W/DIFF AUTOMATED Routine 05/20/2024 5:18 AM RECORDS MANAGEMENT TECHNICIAN MAGNESIUM Routine 05/20/2024 5:18 AM RECORDS MANAGEMENT TECHNICIAN VANCOMYCIN Routine 05/20/2024 5:18 AM RECORDS MANAGEMENT TECHNICIAN POCT GLUCOSE - ESPINOSA DOCKED DEVICE Routine 05/19/2024 9:11 PM RECORDS MANAGEMENT TECHNICIAN POCT GLUCOSE - ESPINOSA DOCKED DEVICE Routine 05/19/2024 3:48 PM RECORDS MANAGEMENT TECHNICIAN POCT GLUCOSE - ESPINOSA DOCKED DEVICE Routine 05/19/2024 12:04 PM RECORDS MANAGEMENT TECHNICIAN POCT GLUCOSE - ESPINOSA DOCKED DEVICE Routine 05/19/2024 6:01 AM RECORDS MANAGEMENT TECHNICIAN BASIC METABOLIC PANEL Routine 05/19/2024 5:10 AM RECORDS MANAGEMENT TECHNICIAN CULTURE, BACTERIA, BLOOD Routine 05/19/2024 5:10 AM RECORDS MANAGEMENT TECHNICIAN CBC W/DIFF AUTOMATED Routine 05/19/2024 5:10 AM RECORDS MANAGEMENT TECHNICIAN MAGNESIUM Routine 05/19/2024 5:10 AM RECORDS MANAGEMENT TECHNICIAN POCT GLUCOSE - ESPINOSA DOCKED DEVICE Routine 05/18/2024 8:08 PM RECORDS MANAGEMENT TECHNICIAN POCT GLUCOSE - ESPINOSA DOCKED DEVICE Routine 05/18/2024 3:16 PM RECORDS MANAGEMENT TECHNICIAN BASIC METABOLIC PANEL Routine 05/18/2024 12:19 PM RECORDS MANAGEMENT TECHNICIAN CBC W/DIFF AUTOMATED Routine 05/18/2024 12:19 PM RECORDS MANAGEMENT TECHNICIAN POCT GLUCOSE - ESPINOSA DOCKED DEVICE Routine 05/18/2024 11:25 AM RECORDS MANAGEMENT TECHNICIAN POCT GLUCOSE - ESPINOSA DOCKED DEVICE Routine 05/18/2024 5:49 AM RECORDS MANAGEMENT TECHNICIAN POCT GLUCOSE - ESPINOSA DOCKED DEVICE Routine 05/17/2024 7:44 PM RECORDS MANAGEMENT TECHNICIAN POCT GLUCOSE - ESPINOSA DOCKED DEVICE Routine 05/17/2024 3:39 PM RECORDS MANAGEMENT TECHNICIAN POCT GLUCOSE - ESPINOSA DOCKED DEVICE Routine 05/17/2024 10:33 AM RECORDS MANAGEMENT TECHNICIAN VANCOMYCIN TIMED 05/17/2024 9:22 AM RECORDS MANAGEMENT TECHNICIAN HEMOGLOBIN, GLYCOSYLATED Routine 05/17/2024 6:10 AM RECORDS MANAGEMENT TECHNICIAN PROTHROMBIN TIME, VENOUS Routine 05/17/2024 6:10 AM RECORDS MANAGEMENT TECHNICIAN BASIC METABOLIC PANEL Routine 05/17/2024 6:10 AM RECORDS MANAGEMENT TECHNICIAN CBC W/DIFF AUTOMATED Routine 05/17/2024 6:10 AM RECORDS MANAGEMENT TECHNICIAN TROPONIN, QUANT Routine 05/17/2024 6:10 AM RECORDS MANAGEMENT TECHNICIAN THYROID STIM HORMONE TSH Routine 05/17/2024 6:10 AM RECORDS MANAGEMENT TECHNICIAN MAGNESIUM Routine 05/17/2024 6:10 AM RECORDS MANAGEMENT TECHNICIAN POCT GLUCOSE - ESPINOSA DOCKED DEVICE Routine 05/17/2024 6:09 AM RECORDS MANAGEMENT TECHNICIAN CULTURE, BLOOD, PCR PANEL Routine 05/17/2024 6:09 AM RECORDS MANAGEMENT TECHNICIAN CULTURE, BACTERIA, BLOOD Routine 05/17/2024 6:09 AM RECORDS MANAGEMENT TECHNICIAN POCT GLUCOSE - ESPINOSA DOCKED DEVICE Routine 05/16/2024 11:11 PM RECORDS MANAGEMENT TECHNICIAN documented in this encounter Results * (ABNORMAL) POCT glucose (05/25/2024 11:23 AM RECORDS MANAGEMENT TECHNICIAN) [facility] Signature GLUCOSE POC 269(H) 70 - 99 mg/dL 05/25/2024 11:40 AM RECORDS MANAGEMENT TECHNICIAN [facility] 05/25/2024 11:2 3 AM RECORDS MANAGEMENT TECHNICIAN Madi Maynard APRN POCT ORDERABLES - DEVICE Final Result [facility] [address] [place] [address], [place] [phone] * (ABNORMAL) POCT glucose (05/25/2024 6:21 AM RECORDS MANAGEMENT TECHNICIAN) GLUCOSE POC 192(H) 70 - 99 mg/dL 05/25/2024 6:26 AM [facility] 05/25/2024 6:21 AM RECORDS MANAGEMENT TECHNICIAN Madi Felix Dodt ACQUISITIONS ASSISTANT POCT ORDERABLES - DEVICE Final Result [facility] [address] [place] [address], [place] [phone] * (ABNORMAL) COMPREHENSIVE METABOLIC PANEL (05/25/2024 4:35 AM RECORDS MANAGEMENT TECHNICIAN) GLUCOSE 142(H) 70 - 99 MG/DL 05/25/2024 5:15 AM [facility] BUN 26(H) 7 - 18 MG/DL 05/25/2024 5:15 AM [facility] CREATININE S/P/B 0.56(L) 0.7 - 1.3 MG/DL 05/25/2024 5:15 AM [facility] SODIUM S/P/B 140 136 - 145 MMOL/L 05/25/2024 5:15 AM [facility] POTASSIUM S/P/B 3.7 3.5 - 5.1 MMOL/L 05/25/2024 5:15 AM [facility] CHLORIDE S/P/B 106 97 - 115 MMOL/L 05/25/2024 5:15 AM [facility] CO2 27.2 21 - 32 MMOL/L 05/25/2024 5:15 AM [facility] CALCIUM S/P/B 8.5 8.5 - 10.1 MG/DL 05/25/2024 5:15 AM [facility] BILIRUBIN TOTAL S/P/B 0.8 0.2 - 1.2 MG/DL 05/25/2024 5:15 AM [facility] Comment: THIS ASSAY IS NOT RECOMMENDED FOR PATIENTS UNDERGOING TREATMENT WITH ELTROMBOPAG DUE TO THE POTENTIAL FOR FALSELY ELEVATED RESULTS. TOTAL PROTEIN S/P/B 6.0(L) 6.4 - 8.2 G/DL 05/25/2024 5:15 AM [facility] ALBUMIN S/P/B 1.8(L) 3.4 - 5.0 G/DL 05/25/2024 5:15 AM [facility] AST 19 15 - 37 U/L 05/25/2024 5:15 AM [facility] ALT 16 16 - 60 U/L 05/25/2024 5:15 AM [facility] ALKALINE PHOSPHATASE S/P/B 73 50 - 136 U/L 05/25/2024 5:15 AM [facility] ANION GAP 6.8 2 - 10 MMOL/L 05/25/2024 5:15 AM [facility] BUN CREATININE RATIO 46.5(H) 6 - 26 05/25/2024 5:15 AM [facility] A/G RATIO 0.4(L) 1.0 - 2.0 RATIO 05/25/2024 5:15 AM [facility] GFR ESTIMATE >90 >90 ML/MIN/1.7 3 M2 05/25/2024 5:15 AM [facility] Comment: NOTE: eGFR is not calculated for patients <18 years of age or gender unknown. This is an estimated GFR calculation using the new CKD EPI creatinine equation without race and so does not require a correction factor for race. This estimated GFR should not be used for calculating drug doses. 05/25/2024 4:35 AM RECORDS MANAGEMENT TECHNICIAN Mansoor Lema MD LABORATORY Final Result [facility] [address] [place] [address], * (ABNORMAL) CBC W/DIFF AUTOMATED (05/25/2024 4:35 AM RECORDS MANAGEMENT TECHNICIAN) WBC 9.92 4.5 - 11.0 x10'3/uL 05/25/2024 4:51 AM [facility] RBC 3.68(L) 4.70 - 6.10 x10'6/uL 05/25/2024 4:51 AM [facility] HGB 9.7(L) 14.0 - 18.0 G/DL 05/25/2024 4:51 AM [facility] HCT 31.4(L) 43.0 - 54.0 % 05/25/2024 4:51 AM [facility] MCV 85.3 80.0 - 94.0 FL 05/25/2024 4:51 AM [facility] MCH 26.4(L) 27.0 - 31.0 PG 05/25/2024 4:51 AM [facility] MCHC 30.9(L) 32.0 - 36.0 G/DL 05/25/2024 4:51 AM [facility] RDW 16.0(H) 11.5 - 14.5 % 05/25/2024 4:51 AM [facility] PLT 263 130 - 400 x10'3/uL 05/25/2024 4:51 AM [facility] MPV 10.8 9.3 - 12.2 FL 05/25/2024 4:51 AM [facility] DIFFERENTIAL TYPE AUTOMATED DIFFERENTIAL 05/25/2024 4:51 AM [facility] NEUTROPHILS % 82.6 % 05/25/2024 4:51 AM RECORDS MANAGEMENT TECHNICIAN [facility] LYMPHOCYTES % 12.4 % 05/25/2024 4:51 AM RECORDS MANAGEMENT TECHNICIAN [facility] MONOCYTES % 3.8 % 05/25/2024 4:51 AM RECORDS MANAGEMENT TECHNICIAN [facility] EOSINOPHILS 0.5 % 05/25/2024 4:51 AM RECORDS MANAGEMENT TECHNICIAN [facility] BASOPHILS 0.1 % 05/25/2024 4:51 AM RECORDS MANAGEMENT TECHNICIAN [facility] IMMATURE GRANS % 0.6 % 05/25/20 4:51 AM RECORDS MANAGEMENT TECHNICIAN [facility] ABS. NEUTROPHILS 8.19(H) 1.80 - 7.70 x10'3/uL 05/25/2024 4:51 AM RECORDS MANAGEMENT TECHNICIAN [facility] ABS. LYMPHOCYTES 1.23 1.00 - 4.80 x10'3/uL 05/25/2024 4:51 AM RECORDS MANAGEMENT TECHNICIAN [facility] ABS. MONOCYTES 0.38 0.30 - 0.82 x10'3/uL 05/25/2024 4:51 AM RECORDS MANAGEMENT TECHNICIAN [facility] ABS. EOSINOPHILS 0.05 0.04 - 0.54 x10'3/uL 05/25/2024 4:51 AM RECORDS MANAGEMENT TECHNICIAN [facility] ABS. BASOPHILS 0.01 0.01 - 0.08 x10'3/uL 05/25/2024 4:51 AM RECORDS MANAGEMENT TECHNICIAN [facility] ABS. IMMATURE GRANULOCYTES 0.06 0.00 - 0.49 x10'3/uL 05/25/2024 4:51 AM [facility] 05/25/2024 4:35 AM RECORDS MANAGEMENT TECHNICIAN us Mansoor Lema MD LABORATORY Final Result [facility] [address] [place] [address], [place] [phone] * MAGNESIUM (05/25/2024 4:35 AM RECORDS MANAGEMENT TECHNICIAN) MAGNESIUM 1.8 1.8 - 2.4 MG/DL 05/25/2024 5:15 AM RECORDS MANAGEMENT TECHNICIAN [facility] 05/25/2024 4:35 AM RECORDS MANAGEMENT TECHNICIAN us Mansoor Lema MD LABORATORY Final Result Performing Organization Address [facility] Co de Phone Number [facility] [address] [place] [address], [place] [phone] * (ABNORMAL) POCT glucose (05/24/2024 7:37 PM RECORDS MANAGEMENT TECHNICIAN) GLUCOSE POC 158(H) 70 - 99 mg/dL 05/24/2024 7:39 PM RECORDS MANAGEMENT TECHNICIAN [facility] 05/24/2024 7:37 PM RECORDS MANAGEMENT TECHNICIAN us Mansoor Lema MD POCT ORDERABLES - DEVICE Final R esult Performing Organization Address [facility] Co de Phone Number [facility] [address] [place] [address], [place] [phone] * (ABNORMAL) POCT glucose (05/24/2024 4:32 PM RECORDS MANAGEMENT TECHNICIAN) GLUCOSE POC 129(H) 70 - 99 mg/dL 05/24/2024 4:37 PM RECORDS MANAGEMENT TECHNICIAN [facility] 05/24/2024 4:32 PM RECORDS MANAGEMENT TECHNICIAN us Mansoor Lema MD POCT ORDERABLES - DEVICE Final R esult Performing Organization Address City/[facility]/ZIP Co de Phone Number [facility] [address] [place] [address], * XR SPEECH SWALLOW??VICTOR MANUEL ONLY (05/24/2024 1:47 PM RECORDS MANAGEMENT TECHNICIAN) Anatomical Region Laterality Modality NA Radiographic Betsey ging 05/24/2024 1:53 PM RECORDS MANAGEMENT TECHNICIAN Impressions 05/24/2024 1:58 PM RECORDS MANAGEMENT TECHNICIAN IMPRESSION: 1. Penetration with thin liquid barium. 2. Residual within the vallecula and piriform sinuses. Please see speech pathology report for further discussion. Ordered By: MANSOOR LEMA Interpreted By: Mayito Bianchi MD, 05/24/2024 1:53 PM Narrative 05/24/2024 1:58 PM RECORDS MANAGEMENT TECHNICIAN [address] [address] EXAMINATION: VIDEOFLUOROSCOPIC OROPHARYNGEAL SWALLOW STUDY EXAM TIME: [...] Procedure Note Mayito Bianchi MD - 05/24/[address] [address] EXAMINATION: VIDEOFLUOROSCOPIC OROPHARYNGEAL SWALLOW STUDY EXAM TIME: [...] pathology report for further discussion. Ordered By: MANSOOR LEMA Interpreted By: Mayito Bianchi MD, 05/24/2024 1:53 PM Mansoor Lema MD FLUOROSCOPY Final Result * (ABNORMAL) POCT glucose (05/24/2024 11:01 AM RECORDS MANAGEMENT TECHNICIAN) GLUCOSE POC 171(H) 70 - 99 mg/dL 05/24/2024 11:28 AM RECORDS MANAGEMENT TECHNICIAN [facility] [facility] 05/24/2024 11:0 1 AM RECORDS MANAGEMENT TECHNICIAN Mansoor Lema MD POCT ORDERABLES - DEVICE Final R esult [facility] [address] [place] [address], [place] [phone] * (ABNORMAL) POCT glucose (05/24/2024 6:16 AM RECORDS MANAGEMENT TECHNICIAN) GLUCOSE POC 205(H) 70 - 99 mg/dL 05/24/2024 6:27 AM RECORDS MANAGEMENT TECHNICIAN [facility] 05/24/2024 6:16 AM RECORDS MANAGEMENT TECHNICIAN us Mansoor Lema MD POCT ORDERABLES - DEVICE Final R esult [facility] [address] [place] [address], [place] [phone] * (ABNORMAL) CBC W/DIFF AUTOMATED (05/24/2024 5:15 AM RECORDS MANAGEMENT TECHNICIAN) [facility] WBC 10.24 4.5 - 11.0 x10'3/uL 05/24/2024 5:56 AM RECORDS MANAGEMENT TECHNICIAN [facility] RBC 3.76(L) 4.70 - 6.10 x10'6/uL 05/24/2024 5:56 AM [facility] HGB 9.8(L) 14.0 - 18.0 G/DL 05/24/2024 5:56 AM [facility] HCT 32.1(L) 43.0 - 54.0 % 05/24/2024 5:56 AM [facility] MCV 85.4 80.0 - 94.0 FL 05/24/2024 5:56 AM [facility] MCH 26.1(L) 27.0 - 31.0 PG 05/24/2024 5:56 AM [facility] MCHC 30.5(L) 32.0 - 36.0 G/DL 05/24/2024 5:56 AM [facility] RDW 16.1(H) 11.5 - 14.5 % 05/24/2024 5:56 AM RECORDS MANAGEMENT TECHNICIAN [facility] PLT 236 130 - 400 x10'3/uL 05/24/2024 5:56 AM [facility] MPV 11.3 9.3 - 12.2 FL 05/24/2024 5:56 AM [facility] DIFFERENTIAL TYPE AUTOMATED DIFFERENTIAL 05/24/2024 5:56 AM RECORDS MANAGEMENT TECHNICIAN [facility] NEUTROPHILS % 81.8 % 05/24/2024 5:56 AM [facility] LYMPHOCYTES % 13.4 % 05/24/2024 5:56 AM [facility] MONOCYTES % 4.1 % 05/24/2024 5:56 AM [facility] EOSINOPHILS 0.2 % 05/24/2024 5:56 AM [facility] BASOPHILS 0.1 % 05/24/2024 5:56 AM [facility] IMMATURE GRANS % 0.4 % 05/24/20 5:56 AM [facility] ABS. NEUTROPHILS 8.38(H) 1.80 - 7.70 x10'3/uL 05/24/2024 5:56 AM [facility] ABS. LYMPHOCYTES 1.37 1.00 - 4.80 x10'3/uL 05/24/2024 5:56 AM [facility] ABS. MONOCYTES 0.42 0.30 - 0.82 x10'3/uL 05/24/2024 5:56 AM [facility] ABS. EOSINOPHILS 0.02(L) 0.04 - 0.54 x10'3/uL 05/24/2024 5:56 AM [facility] ABS. BASOPHILS 0.01 0.01 - 0.08 x10'3/uL 05/24/2024 5:56 AM [facility] ABS. IMMATURE GRANULOCYTES 0.04 0.00 - 0.49 x10'3/uL 05/24/2024 5:56 AM [facility] 05/24/2024 5:15 AM RECORDS MANAGEMENT TECHNICIAN Mansoor Lema MD LABORATORY Final Result [facility] [address] [place] [address], * (ABNORMAL) BASIC METABOLIC PANEL (05/24/2024 5:15 AM RECORDS MANAGEMENT TECHNICIAN) [facility] GLUCOSE 174(H) 70 - 99 MG/DL 05/24/2024 6:02 AM [facility] BUN 28(H) 7 - 18 MG/DL 05/24/2024 6:02 AM [facility] CREATININE S/P/B 0.63(L) 0.7 - 1.3 MG/DL 05/24/2024 6:02 AM [facility] SODIUM S/P/B 137 136 - 145 MMOL/L 05/24/2024 6:02 AM [facility] POTASSIUM S/P/B 3.9 3.5 - 5.1 MMOL/L 05/24/2024 6:02 AM [facility] CHLORIDE S/P/B 104 97 - 115 MMOL/L 05/24/2024 6:02 AM [facility] CO2 29.4 21 - 32 MMOL/L 05/24/2024 6:02 AM [facility] CALCIUM S/P/B 8.7 8.5 - 10.1 MG/DL 05/24/2024 6:02 AM [facility] ANION GAP 3.6 2 - 10 MMOL/L 05/24/2024 6:02 AM [facility] BUN CREATININE RATIO 44.4(H) 6 - 26 05/24/2024 6:02 AM [facility] GFR ESTIMATE >90 >90 ML/MIN/1.7 3 M2 05/24/2024 6:02 AM [facility] Comment: NOTE: eGFR is not calculated for patients <18 years of age or gender unknown. This is an estimated GFR calculation using the new CKD EPI creatinine equation without race and so does not require a correction factor for race. This estimated GFR should not be used for calculating drug doses. 05/24/2024 5:15 AM RECORDS MANAGEMENT TECHNICIAN us Mansoor Lema MD LABORATORY Final Result [facility] [address] [place] [address], [place] [phone] * MAGNESIUM (05/24/2024 5:15 AM RECORDS MANAGEMENT TECHNICIAN) MAGNESIUM 1.9 1.8 - 2.4 MG/DL 05/24/2024 6:02 AM RECORDS MANAGEMENT TECHNICIAN [facility] 05/24/2024 5:15 AM RECORDS MANAGEMENT TECHNICIAN us Mansoor Lema MD LABORATORY Final Result Performing Organization Address City/[facility] Co de Phone Number [facility] [address] [place] [address], [place] [phone] * XR CHEST PORTABLE (05/24/2024 12:17 AM RECORDS MANAGEMENT TECHNICIAN) Anatomical Region Laterality Modality Chest Radiographic Betsey ging 05/24/2024 12:2 7 AM RECORDS MANAGEMENT TECHNICIAN Impressions 05/24/2024 12:30 AM RECORDS MANAGEMENT TECHNICIAN IMPRESSION: INTERIM RIGHT-SIDED PICC LINE PLACEMENT IN SATISFACTORY POSITION. MILD RIGHT HEMIDIAPHRAGM ELEVATION WITH RIGHT BASE WITH A SMALL AREA OF FOCAL INFILTRATE AND/OR ATELECTATIC CHANGE. Referred By: ROBERT WATKINS Interpreted By: Pernell Dawson MD, 05/24/2024 12:27 AM Narrative 05/24/2024 12:30 AM RECORDS MANAGEMENT TECHNICIAN [facility] [place] [id number] EXAM: XR CHEST PORTABLE INDICATION: PICC line placement. TECHNIQUE: AP chest radiograph submitted. COMPARISON EXAM: Portable chest from 05/16/2024. FINDINGS: Moderate right hemidiaphragm elevation. ??Some minimal right base infiltrate and/or atelectasis. ??Left lung is grossly clear. ??Heart size and pulmonary vascular caliber is magnified. ??Cardiac pacemaking hardware again noted. ??Interim placement of a right-sided PICC line with the tip in the mid right SVC. Procedure Note Pernell Dawson MD - 05/24/2024 [place] [address] EXAM: XR CHEST PORTABLE INDICATION: PICC line placement. TECHNIQUE: AP chest radiograph submitted. COMPARISON EXAM: Portable chest from 05/16/2024. FINDINGS: Moderate right hemidiaphragm elevation. Some minimal right baseinfiltrate and/or atelectasis. Left lung is grossly clear. Heart sizeand pulmonary vascular caliber is magnified. Cardiac pacemaking hardwareagain noted. Interim placement of a right-sided PICC line with the tip inthe mid right SVC. IMPRESSION: INTERIM RIGHT-SIDED PICC LINE PLACEMENT IN SATISFACTORYPOSITION. MILD RIGHT HEMIDIAPHRAGM ELEVATION WITH RIGHT BASE WITH A SMALL AREA OFFOCAL INFILTRATE AND/OR ATELECTATIC CHANGE. Referred By: ROBERT WATKINS Interpreted By: Pernell Dawson MD, 05/24/2024 12:27 AM us Mansoor Lema MD GENERAL IMAGING Final Result * (ABNORMAL) POCT glucose (05/23/2024 7:48 PM RECORDS MANAGEMENT TECHNICIAN) GLUCOSE POC 179(H) 70 - 99 mg/dL 05/23/2024 8:37 PM RECORDS MANAGEMENT TECHNICIAN [facility] 05/23/2024 7:48 PM RECORDS MANAGEMENT TECHNICIAN us Mansoor Lema MD POCT ORDERABLES - DEVICE Final R esult Performing Organization Address [facility] [place] [address], * (ABNORMAL) POCT glucose (05/23/2024 3:50 PM RECORDS MANAGEMENT TECHNICIAN) GLUCOSE POC 164(H) 70 - 99 mg/dL 05/23/2024 4:05 PM RECORDS MANAGEMENT TECHNICIAN [facility] 05/23/2024 3:50 PM RECORDS MANAGEMENT TECHNICIAN Mansoor Lema MD POCT ORDERABLES - DEVICE Final R esult Performing Organization Address [facility] de Phone Number [address] [address], * USE TRANSESOPHAGEAL ECHO (05/23/2024 2:50 PM RECORDS MANAGEMENT TECHNICIAN) Anatomical Region Laterality Modality Cardiac Boarder Machine 05/23/2024 12:5 6 PM RECORDS MANAGEMENT TECHNICIAN Narrative 05/23/2024 5:00 PM RECORDS MANAGEMENT TECHNICIAN ?TATE Report Pat.Name: ??AVILA CROCKER ?Pat.ID: ?[id number] ? St.Date: ?? 05/23/2024 ? Exam Time: 12:56:00 PM ? Study Type:TRANSESOPHAGEAL ECHO (TATE) Height: ?72 in ? Weight: ?10.9 lb ? BSA: ? 0.62 m2 ?Age: ??1945,79Y ? Sex: ? M ? BP: ?120/63 ?HR: ?60 bpm ? Sonogrphr: Mita Jimenez RCS ? Pat. Stat.:Inpatient ? Room: ?311 ? CPT - 4: ?42140 [id number] ? Reason for Study:Bacteremia, Endocarditis Procedures: 2D, [...] Landa MD - 05/23/2024 TATE Report Pat.Name: AVILA CROCKER Pat.ID: [id number] .Date: 05/23/2024 Exam Time: 12:56:00 PM Study Type:TRANSESOPHAGEAL ECHO (TATE) Height: 72 in Weight: 10.9 lb BSA: 0.62 m2 Age: 9 1945,79Y Sex: M BP: 120/63 HR: 60 bpm Sonogrphr: [place], Mita [facility] Pat. Stat.:Inpatient Room: [address] [place] [address] - 4: [id number] Reason for Study:Bacteremia, Endocarditis Procedures: 2D, Doppler, [...] Percy Landa MD ECHO Final Result * (ABNORMAL) POCT glucose (05/23/2024 10:43 AM RECORDS MANAGEMENT TECHNICIAN) GLUCOSE POC 168(H) 70 - 99 mg/dL 05/23/2024 11:44 AM RECORDS MANAGEMENT TECHNICIAN [facility] 05/23/2024 10:4 3 AM RECORDS MANAGEMENT TECHNICIAN us Mansoor Lema MD POCT ORDERABLES - DEVICE Final R esult Performing Organization Address [facility] Co de Phone Number [facility] [address] [place] [address], [place] [phone] * (ABNORMAL) POCT glucose (05/23/2024 8:41 AM RECORDS MANAGEMENT TECHNICIAN) GLUCOSE POC 198(H) 70 - 99 mg/dL 05/23/2024 11:44 AM RECORDS MANAGEMENT TECHNICIAN [facility] 05/23/2024 8:41 AM RECORDS MANAGEMENT TECHNICIAN us Mansoor Lema MD POCT ORDERABLES - DEVICE Final R esult Performing Organization Address City/[facility]/ZIP Co de Phone Number [facility] [address] [place] [address], * MAGNESIUM (05/23/2024 7:58 AM RECORDS MANAGEMENT TECHNICIAN) MAGNESIUM 2.0 1.8 - 2.4 MG/DL 05/23/2024 8:50 AM RECORDS MANAGEMENT TECHNICIAN [facility] 05/23/2024 7:58 AM RECORDS MANAGEMENT TECHNICIAN us Mansoor Lema MD LABORATORY Final Result [facility] [address] [place] [address], [place] [phone] * CK (CPK) (05/23/2024 7:58 AM RECORDS MANAGEMENT TECHNICIAN) CPK 49 35 - 232 U/L 05/23/2024 8:50 AM RECORDS MANAGEMENT TECHNICIAN [facility] 05/23/2024 7:58 AM RECORDS MANAGEMENT TECHNICIAN us Mansoor Lema MD LABORATORY Final Result [facility] [address] [place] [address], * (ABNORMAL) BASIC METABOLIC PANEL (05/23/2024 7:58 AM RECORDS MANAGEMENT TECHNICIAN) GLUCOSE 168(H) 70 - 99 MG/DL 05/23/2024 8:50 AM RECORDS MANAGEMENT TECHNICIAN [facility] BUN 26(H) 7 - 18 MG/DL 05/23/2024 8:50 AM RECORDS MANAGEMENT TECHNICIAN [facility] CREATININE S/P/B 0.59(L) 0.7 - 1.3 MG/DL 05/23/2024 8:50 AM [facility] SODIUM S/P/B 137 136 - 145 MMOL/L 05/23/2024 8:50 AM [facility] POTASSIUM S/P/B 3.8 3.5 - 5.1 MMOL/L 05/23/2024 8:50 AM [facility] CHLORIDE S/P/B 106 97 - 115 MMOL/L 05/23/2024 8:50 AM [facility] CO2 26.5 21 - 32 MMOL/L 05/23/2024 8:50 AM [facility] CALCIUM S/P/B 8.7 8.5 - 10.1 MG/DL 05/23/2024 8:50 AM [facility] ANION GAP 4.5 2 - 10 MMOL/L 05/23/2024 8:50 AM [facility] BUN CREATININE RATIO 44.3(H) 6 - 26 05/23/2024 8:50 AM [facility] GFR ESTIMATE >90 >90 ML/MIN/1.7 3 M2 05/23/2024 8:50 AM [facility] Comment: NOTE: eGFR is not calculated for patients <18 years of age or gender unknown. This is an estimated GFR calculation using the new CKD EPI creatinine equation without race and so does not require a correction factor for race. This estimated GFR should not be used for calculating drug doses. 05/23/2024 7:58 AM RECORDS MANAGEMENT TECHNICIAN us Mansoor Lema MD LABORATORY Final Result [facility] [address] [place] [address], [place] [phone] * (ABNORMAL) POCT glucose (05/23/2024 6:17 AM RECORDS MANAGEMENT TECHNICIAN) GLUCOSE POC 187(H) 70 - 99 mg/dL 05/23/2024 11:10 AM RECORDS MANAGEMENT TECHNICIAN [facility] 05/23/2024 6:17 AM RECORDS MANAGEMENT TECHNICIAN Mansoor Lema MD POCT ORDERABLES - DEVICE Final R esult [facility] [address] [place] [address], * (ABNORMAL) CBC W/DIFF AUTOMATED (05/23/2024 5:15 AM RECORDS MANAGEMENT TECHNICIAN) WBC 10.42 4.5 - 11.0 x10'3/uL 05/23/2024 5:32 AM RECORDS MANAGEMENT TECHNICIAN [facility] RBC 3.70(L) 4.70 - 6.10 x10'6/uL 05/23/2024 5:32 AM [facility] HGB 9.9(L) 14.0 - 18.0 G/DL 05/23/2024 5:32 AM [facility] HCT 31.9(L) 43.0 - 54.0 % 05/23/2024 5:32 AM [facility] MCV 86.2 80.0 - 94.0 FL 05/23/2024 5:32 AM RECORDS MANAGEMENT TECHNICIAN [facility] MCH 26.8(L) 27.0 - 31.0 PG 05/23/2024 5:32 AM RECORDS MANAGEMENT TECHNICIAN [facility] MCHC 31.0(L) 32.0 - 36.0 G/DL 05/23/2024 5:32 AM [facility] RDW 16.1(H) 11.5 - 14.5 % 05/23/2024 5:32 AM RECORDS MANAGEMENT TECHNICIAN [facility] PLT 196 130 - 400 x10'3/uL 05/23/2024 5:32 AM [facility] MPV 10.8 9.3 - 12.2 FL 05/23/2024 5:32 AM [facility] DIFFERENTIAL TYPE AUTOMATED DIFFERENTIAL 05/23/2024 5:32 AM [facility] NEUTROPHILS % 79.2 % 05/23/2024 5:32 AM [facility] LYMPHOCYTES % 13.1 % 05/23/2024 5:32 AM [facility] MONOCYTES % 6.3 % 05/23/2024 5:32 AM [facility] EOSINOPHILS 0.4 % 05/23/2024 5:32 AM [facility] BASOPHILS 0.3 % 05/23/2024 5:32 AM [facility] IMMATURE GRANS % 0.7 % 05/23/20 5:32 AM [facility] ABS. NEUTROPHILS 8.26(H) 1.80 - 7.70 x10'3/uL 05/23/2024 5:32 AM [facility] ABS. LYMPHOCYTES 1.36 1.00 - 4.80 x10'3/uL 05/23/2024 5:32 AM [facility] ABS. MONOCYTES 0.66 0.30 - 0.82 x10'3/uL 05/23/2024 5:32 AM [facility] ABS. EOSINOPHILS 0.04 0.04 - 0.54 x10'3/uL 05/23/2024 5:32 AM [facility] ABS. BASOPHILS 0.03 0.01 - 0.08 x10'3/uL 05/23/2024 5:32 AM [facility] ABS. IMMATURE GRANULOCYTES 0.07 0.00 - 0.49 x10'3/uL 05/23/2024 5:32 AM RECORDS MANAGEMENT TECHNICIAN [facility] 05/23/2024 5:15 AM RECORDS MANAGEMENT TECHNICIAN us Mansoor Lema MD LABORATORY Final Result Performing Organization Address City/[facility]/ZIP Co de Phone Number [facility] [address] [place] [address], [place] [phone] * (ABNORMAL) POCT glucose (05/22/2024 7:43 PM RECORDS MANAGEMENT TECHNICIAN) GLUCOSE POC 182(H) 70 - 99 mg/dL 05/22/2024 8:02 PM RECORDS MANAGEMENT TECHNICIAN [facility] 05/22/2024 7:43 PM RECORDS MANAGEMENT TECHNICIAN us Mansoor Lema MD POCT ORDERABLES - DEVICE Final R esult Performing Organization Address City/[facility] Co de Phone Number [facility] [address] [place] [address], [place] [phone] * (ABNORMAL) POCT glucose (05/22/2024 3:35 PM RECORDS MANAGEMENT TECHNICIAN) GLUCOSE POC 232(H) 70 - 99 mg/dL 05/22/2024 4:05 PM RECORDS MANAGEMENT TECHNICIAN [facility] 05/22/2024 3:35 PM RECORDS MANAGEMENT TECHNICIAN us Mansoor Lema MD POCT ORDERABLES - DEVICE Final R esult Performing Organization Address City/[facility]/ZIP Co de Phone Number [facility] [address] [place] [address], [place] [phone] * (ABNORMAL) POCT glucose (05/22/2024 11:04 AM RECORDS MANAGEMENT TECHNICIAN) GLUCOSE POC 220(H) 70 - 99 mg/dL 05/22/2024 11:24 AM RECORDS MANAGEMENT TECHNICIAN [facility] 05/22/2024 11:0 4 AM RECORDS MANAGEMENT TECHNICIAN us Mansoor Lema MD POCT ORDERABLES - DEVICE Final R esult Performing Organization Address City/[facility] Co de Phone Number [facility] [address] [place] [address], [place] [phone] * (ABNORMAL) POCT glucose (05/22/2024 6:32 AM RECORDS MANAGEMENT TECHNICIAN) GLUCOSE POC 173(H) 70 - 99 mg/dL 05/22/2024 6:37 AM RECORDS MANAGEMENT TECHNICIAN [facility] 05/22/2024 6:32 AM RECORDS MANAGEMENT TECHNICIAN us Mansoor Lema MD POCT ORDERABLES - DEVICE Final R esult Performing Organization Address City/[facility] Co de Phone Number [facility] [address] [place] [address], [place] [phone] * (ABNORMAL) CBC W/DIFF AUTOMATED (05/22/2024 5:26 AM RECORDS MANAGEMENT TECHNICIAN) WBC 10.70 4.5 - 11.0 x10'3/uL 05/22/2024 6:10 AM RECORDS MANAGEMENT TECHNICIAN [facility] RBC 3.70(L) 4.70 - 6.10 x10'6/uL 05/22/2024 6:10 AM RECORDS MANAGEMENT TECHNICIAN [facility] HGB 9.8(L) 14.0 - 18.0 G/DL 05/22/2024 6:10 AM [facility] HCT 31.9(L) 43.0 - 54.0 % 05/22/2024 6:10 AM [facility] MCV 86.2 80.0 - 94.0 FL 05/22/2024 6:10 AM [facility] MCH 26.5(L) 27.0 - 31.0 PG 05/22/2024 6:10 AM [facility] MCHC 30.7(L) 32.0 - 36.0 G/DL 05/22/2024 6:10 AM [facility] RDW 16.0(H) 11.5 - 14.5 % 05/22/2024 6:10 AM [facility] PLT 194 130 - 400 x10'3/uL 05/22/2024 6:10 AM [facility] MPV 10.8 9.3 - 12.2 FL 05/22/2024 6:10 AM [facility] DIFFERENTIAL TYPE AUTOMATED DIFFERENTIAL 05/22/2024 6:10 AM [facility] NEUTROPHILS % 77.1 % 05/22/2024 6:10 AM [facility] LYMPHOCYTES % 12.9 % 05/22/2024 6:10 AM [facility] MONOCYTES % 9.0 % 05/22/2024 6:10 AM [facility] EOSINOPHILS 0.3 % 05/22/2024 6:10 AM [facility] BASOPHILS 0.3 % 05/22/2024 6:10 AM [facility] IMMATURE GRANS % 0.4 % 05/22/20 6:10 AM [facility] ABS. NEUTROPHILS 8.26(H) 1.80 - 7.70 x10'3/uL 05/22/2024 6:10 AM [facility] ABS. LYMPHOCYTES 1.38 1.00 - 4.80 x10'3/uL 05/22/2024 6:10 AM [facility] ABS. MONOCYTES 0.96(H) 0.30 - 0.82 x10'3/uL 05/22/2024 6:10 AM [facility] ABS. EOSINOPHILS 0.03(L) 0.04 - 0.54 x10'3/uL 05/22/2024 6:10 AM [facility] ABS. BASOPHILS 0.03 0.01 - 0.08 x10'3/uL 05/22/2024 6:10 AM [facility] ABS. IMMATURE GRANULOCYTES 0.04 0.00 - 0.49 x10'3/uL 05/22/2024 6:10 AM [facility] 05/22/2024 5:26 AM [facility] Mansoor Lema MD LABORATORY Final Result [facility] [address] [place] [address], [place] [phone] * (ABNORMAL) BASIC METABOLIC PANEL (05/22/2024 5:26 AM RECORDS MANAGEMENT TECHNICIAN) GLUCOSE 171(H) 70 - 99 MG/DL 05/22/2024 6:00 AM [facility] BUN 21(H) 7 - 18 MG/DL 05/22/2024 6:00 AM [facility] CREATININE S/P/B 0.63(L) 0.7 - 1.3 MG/DL 05/22/2024 6:00 AM [facility] SODIUM S/P/B 139 136 - 145 MMOL/L 05/22/2024 6:00 AM [facility] POTASSIUM S/P/B 3.7 3.5 - 5.1 MMOL/L 05/22/2024 6:00 AM [facility] CHLORIDE S/P/B 107 97 - 115 MMOL/L 05/22/2024 6:00 AM [facility] CO2 27.4 21 - 32 MMOL/L 05/22/2024 6:00 AM [facility] CALCIUM S/P/B 8.8 8.5 - 10.1 MG/DL 05/22/2024 6:00 AM [facility] ANION GAP 4.6 2 - 10 MMOL/L 05/22/2024 6:00 AM [facility] BUN CREATININE RATIO 33.2(H) 6 - 26 05/22/2024 6:00 AM [facility] GFR ESTIMATE >90 >90 ML/MIN/1.7 3 M2 05/22/2024 6:00 AM [facility] Comment: NOTE: eGFR is not calculated for patients <18 years of age or gender unknown. This is an estimated GFR calculation using the new CKD EPI creatinine equation without race and so does not require a correction factor for race. This estimated GFR should not be used for calculating drug doses. 05/22/2024 5:26 AM RECORDS MANAGEMENT TECHNICIAN us Mansoor Lema MD LABORATORY Final Result Performing Organization Address City/[facility]/ZIP Co de Phone Number [facility] [address] [place] [address], [place] [phone] * MAGNESIUM (05/22/2024 5:26 AM RECORDS MANAGEMENT TECHNICIAN) MAGNESIUM 1.9 1.8 - 2.4 MG/DL 05/22/2024 6:00 AM RECORDS MANAGEMENT TECHNICIAN [facility] 05/22/2024 5:26 AM RECORDS MANAGEMENT TECHNICIAN us Mansoor Lema MD LABORATORY Final Result [facility] [address] [place] [address], [place] [phone] * (ABNORMAL) POCT glucose (05/21/2024 8:43 PM RECORDS MANAGEMENT TECHNICIAN) GLUCOSE POC 200(H) 70 - 99 mg/dL 05/21/2024 8:44 PM RECORDS MANAGEMENT TECHNICIAN [facility] 05/21/2024 8:43 PM RECORDS MANAGEMENT TECHNICIAN us Mansoor Lema MD POCT ORDERABLES - DEVICE Final R esult Performing Organization Address City/[facility]/ZIP Co de Phone Number [facility] [address] [place] [address], [place] [phone] * (ABNORMAL) POCT glucose (05/21/2024 3:52 PM RECORDS MANAGEMENT TECHNICIAN) GLUCOSE POC 153(H) 70 - 99 mg/dL 05/21/2024 4:24 PM RECORDS MANAGEMENT TECHNICIAN [facility] 05/21/2024 3:52 PM RECORDS MANAGEMENT TECHNICIAN us Mansoor Lema MD POCT ORDERABLES - DEVICE Final R esult Performing Organization Address City/[facility]/ZIP Co de Phone Number [facility] [address] [place] [address], [place] [phone] * (ABNORMAL) POCT glucose (05/21/2024 10:26 AM RECORDS MANAGEMENT TECHNICIAN) GLUCOSE POC 150(H) 70 - 99 mg/dL 05/21/2024 11:14 AM RECORDS MANAGEMENT TECHNICIAN [facility] 05/21/2024 10:2 6 AM RECORDS MANAGEMENT TECHNICIAN us Mansoor Lema MD POCT ORDERABLES - DEVICE Final R esult [facility] [address] [place] [address], [place] [phone] * CULTURE, BACTERIA, BLOOD (05/21/2024 10:25 AM RECORDS MANAGEMENT TECHNICIAN) Pathologist [facility] SPEC DESCRIPTION BLOOD 05/21/2024 9:15 AM RECORDS MANAGEMENT TECHNICIAN [facility] SPECIAL REQUESTS NO SPECIAL REQUEST 05/21/2024 9:15 AM RECORDS MANAGEMENT TECHNICIAN [facility] CULTURE RESULT NO GROWTH 5 DAYS 05/26/2024 8:46 AM RECORDS MANAGEMENT TECHNICIAN [facility] BLOOD SPECIMEN OBTAINED FOR BLOOD CULTURE / Unknown 05/21/2024 10:25 AM RECORDS MANAGEMENT TECHNICIAN 05/21/2024 10:47 AM RECORDS MANAGEMENT TECHNICIAN us Mansoor Lema MD MICROBIOLOGY - GENERAL ORDERABLE S Final Result Performing Organization Address [facility] Co de Phone Number [facility] [address] [place] [address], [place] [phone] * (ABNORMAL) POCT glucose (05/21/2024 7:59 AM RECORDS MANAGEMENT TECHNICIAN) [facility] GLUCOSE POC 192(H) 70 - 99 mg/dL 05/21/2024 8:01 AM RECORDS MANAGEMENT TECHNICIAN [facility] 05/21/2024 7:59 AM RECORDS MANAGEMENT TECHNICIAN us Mansoor Lema MD POCT ORDERABLES - DEVICE Final R esult Performing Organization Address City/[facility]/ZIP Co de Phone Number [address] [address], [place] [phone] * (ABNORMAL) CBC W/DIFF AUTOMATED (05/21/2024 4:28 AM RECORDS MANAGEMENT TECHNICIAN) [facility] WBC 9.44 4.5 - 11.0 x10'3/uL 05/21/2024 5:30 AM [facility] RBC 3.99(L) 4.70 - 6.10 x10'6/uL 05/21/2024 5:30 AM [facility] HGB 10.5(L) 14.0 - 18.0 G/DL 05/21/2024 5:30 AM [facility] HCT 34.2(L) 43.0 - 54.0 % 05/21/2024 5:30 AM [facility] MCV 85.7 80.0 - 94.0 FL 05/21/2024 5:30 AM [facility] MCH 26.3(L) 27.0 - 31.0 PG 05/21/2024 5:30 AM [facility] MCHC 30.7(L) 32.0 - 36.0 G/DL 05/21/2024 5:30 AM [facility] RDW 15.9(H) 11.5 - 14.5 % 05/21/2024 5:30 AM [facility] PLT 180 130 - 400 x10'3/uL 05/21/2024 5:30 AM [facility] MPV 11.6 9.3 - 12.2 FL 05/21/2024 5:30 AM [facility] DIFFERENTIAL TYPE AUTOMATED DIFFERENTIAL 05/21/2024 5:30 AM [facility] NEUTROPHILS % 79.6 % 05/21/2024 5:30 AM [facility] LYMPHOCYTES % 10.3 % 05/21/2024 5:30 AM [facility] MONOCYTES % 8.2 % 05/21/2024 5:30 AM [facility] EOSINOPHILS 1.1 % 05/21/2024 5:30 AM [facility] BASOPHILS 0.2 % 05/21/2024 5:30 AM [facility] IMMATURE GRANS % 0.6 % 05/21/20 5:30 AM [facility] ABS. NEUTROPHILS 7.52 1.80 - 7.70 x10'3/uL 05/21/2024 5:30 AM [facility] ABS. LYMPHOCYTES 0.97(L) 1.00 - 4.80 x10'3/uL 05/21/2024 5:30 AM [facility] ABS. MONOCYTES 0.77 0.30 - 0.82 x10'3/uL 05/21/2024 5:30 AM [facility] ABS. EOSINOPHILS 0.10 0.04 - 0.54 x10'3/uL 05/21/2024 5:30 AM [facility] ABS. BASOPHILS 0.02 0.01 - 0.08 x10'3/uL 05/21/2024 5:30 AM [facility] ABS. IMMATURE GRANULOCYTES 0.06 0.00 - 0.49 x10'3/uL 05/21/2024 5:30 AM [facility] 05/21/2024 4:28 AM [facility] Mansoor Lema MD LABORATORY Final Result [facility] [address] [place] [address], * (ABNORMAL) BASIC METABOLIC PANEL (05/21/2024 4:28 AM RECORDS MANAGEMENT TECHNICIAN) Pathologist [facility] GLUCOSE 194(H) 70 - 99 MG/DL 05/21/2024 5:36 AM [facility] BUN 18 7 - 18 MG/DL 05/21/2024 5:36 AM [facility] CREATININE S/P/B 0.63(L) 0.7 - 1.3 MG/DL 05/21/2024 5:36 AM [facility] SODIUM S/P/B 141 136 - 145 MMOL/L 05/21/2024 5:36 AM [facility] POTASSIUM S/P/B 3.8 3.5 - 5.1 MMOL/L 05/21/2024 5:36 AM [facility] CHLORIDE S/P/B 108 97 - 115 MMOL/L 05/21/2024 5:36 AM [facility] CO2 27.9 21 - 32 MMOL/L 05/21/2024 5:36 AM [facility] CALCIUM S/P/B 9.0 8.5 - 10.1 MG/DL 05/21/2024 5:36 AM [facility] ANION GAP 5.1 2 - 10 MMOL/L 05/21/2024 5:36 AM [facility] BUN CREATININE RATIO 28.7(H) 6 - 26 05/21/2024 5:36 AM [facility] GFR ESTIMATE >90 >90 ML/MIN/1.7 3 M2 05/21/2024 5:36 AM [facility] Comment: NOTE: eGFR is not calculated for patients <18 years of age or gender unknown. This is an estimated GFR calculation using the new CKD EPI creatinine equation without race and so does not require a correction factor for race. This estimated GFR should not be used for calculating drug doses. 05/21/2024 4:28 AM RECORDS MANAGEMENT TECHNICIAN Mansoor Lema MD LABORATORY Final Result [facility] [address] [place] [address], [place] [phone] * (ABNORMAL) MAGNESIUM (05/21/2024 4:28 AM RECORDS MANAGEMENT TECHNICIAN) Pathologist [facility] MAGNESIUM 1.6(L) 1.8 - 2.4 MG/DL 05/21/2024 5:36 AM RECORDS MANAGEMENT TECHNICIAN [facility] 05/21/2024 4:28 AM RECORDS MANAGEMENT TECHNICIAN us Mansoor Lema MD LABORATORY Final Result Performing Organization Address [facility] Co de Phone Number [address] [address], [place] [phone] * (ABNORMAL) CK (CPK) (05/21/2024 4:28 AM RECORDS MANAGEMENT TECHNICIAN) [facility] CPK 33(L) 35 - 232 U/L 05/21/2024 5:36 AM RECORDS MANAGEMENT TECHNICIAN [facility] 05/21/2024 4:28 AM RECORDS MANAGEMENT TECHNICIAN us Tanya Hogan MD LABORATORY Final Result Performing Organization Address [facility] de Phone Number [address] [address], [place] [phone] * (ABNORMAL) POCT glucose (05/20/2024 8:00 PM RECORDS MANAGEMENT TECHNICIAN) [facility] GLUCOSE POC 168(H) 70 - 99 mg/dL 05/20/2024 8:47 PM RECORDS MANAGEMENT TECHNICIAN [facility] 05/20/2024 8:00 PM RECORDS MANAGEMENT TECHNICIAN us Mansoor Lema MD POCT ORDERABLES - DEVICE Final R esult Performing Organization Address City/[facility]/ZIP Co de Phone Number [facility] [address] [address], * (ABNORMAL) POCT glucose (05/20/2024 3:20 PM RECORDS MANAGEMENT TECHNICIAN) GLUCOSE POC 172(H) 70 - 99 mg/dL 05/20/2024 4:37 PM RECORDS MANAGEMENT TECHNICIAN [facility] 05/20/2024 3:20 PM RECORDS MANAGEMENT TECHNICIAN us Mansoor Lema MD POCT ORDERABLES - DEVICE Final R esult [address] [address], * USE ECHOCARDIOGRAM W CON (05/20/2024 2:33 PM RECORDS MANAGEMENT TECHNICIAN) Anatomical Region Laterality Modality NA Echocardiogram 05/20/2024 2:57 PM RECORDS MANAGEMENT TECHNICIAN Narrative 05/20/2024 3:32 PM RECORDS MANAGEMENT TECHNICIAN ?Echocardiography Report Pat.Name: ??AVILA CROCKRE ?Pat.ID: ?[id number] ? St.Date: ?? 05/20/2024 ? Refer.: ??[id number] MICHELLE Exam Time: 2:57:00 PM ? Study Type:ECHO WITH CARDIAC DOPPLER COMP Height: ?72 in ? Weight: ?182 lb ? BSA: ? 2.05 m2 ?Age: ??1945,79Y ? Sex: ? M ? BP: ?160/73 ? HR: ?60 bpm ?Sonogrphr: Angel Pascual [facility] Pat. Stat.:Inpatient ? Room: ?311 ? [...] ? Right Ventricle ??21.3 mm ?? Major [place] ?80.5 mm ?MMODE TA ?? Tricuspid Annul ??13.6 mm ? <Electronic Signature> 05/20/2024 03:32 PM Geovany Louise M.D. Procedure Note Geovany Louise MD - 05/20/2024 Echocardiography Report Pat.Name: LIZZETTE AVILA L Pat.ID: [id number] .Date: 05/20/2024 Refer.: [id number] MICHELLE Exam Time: 2:57:00 PM Study Type:ECHO WITH CARDIAC DOPPLER COMP Height: 72 in Weight: 182 lb BSA: 2.05 m2 Age: 9 1945,79Y Sex: M BP: 160/73 HR: 60 bpm Sonogrphr: Angel Pascual [facility] Pat. Stat.:Inpatient Room: 311 Reason for [...] 33.6 mm Right Ventricle 21.3 mm Major [place] 80.5 mm MMODE TA Tricuspid Annul 13.6 mm <Electronic Signature> 05/20/2024 03:32 PM Geovany Louise M.D. us Mansoor Lema MD ECHO Final Result * (ABNORMAL) POCT glucose (05/20/2024 11:29 AM RECORDS MANAGEMENT TECHNICIAN) GLUCOSE POC 370(H) 70 - 99 mg/dL 05/20/2024 11:59 AM RECORDS MANAGEMENT TECHNICIAN [facility] 05/20/2024 11:2 9 AM RECORDS MANAGEMENT TECHNICIAN us Mansoor Lema MD POCT ORDERABLES - DEVICE Final R esult Performing Organization Address City/[facility]/ZIP Co de Phone Number [facility] [address] [place] [address], [place] [phone] * (ABNORMAL) POCT glucose (05/20/2024 6:18 AM RECORDS MANAGEMENT TECHNICIAN) [facility] GLUCOSE POC 193(H) 70 - 99 mg/dL 05/20/2024 6:39 AM RECORDS MANAGEMENT TECHNICIAN [facility] 05/20/2024 6:18 AM RECORDS MANAGEMENT TECHNICIAN us Mansoor Lema MD POCT ORDERABLES - DEVICE Final R esult [facility] [address] [place] [address], [place] [phone] * (ABNORMAL) CBC W/DIFF AUTOMATED (05/20/2024 5:18 AM RECORDS MANAGEMENT TECHNICIAN) WBC 9.68 4.5 - 11.0 x10'3/uL 05/20/2024 5:37 AM RECORDS MANAGEMENT TECHNICIAN [facility] RBC 4.01(L) 4.70 - 6.10 x10'6/uL 05/20/2024 5:37 AM [facility] HGB 10.7(L) 14.0 - 18.0 G/DL 05/20/2024 5:37 AM [facility] HCT 34.1(L) 43.0 - 54.0 % 05/20/2024 5:37 AM [facility] MCV 85.0 80.0 - 94.0 FL 05/20/2024 5:37 AM [facility] MCH 26.7(L) 27.0 - 31.0 PG 05/20/2024 5:37 AM [facility] MCHC 31.4(L) 32.0 - 36.0 G/DL 05/20/2024 5:37 AM [facility] RDW 15.7(H) 11.5 - 14.5 % 05/20/2024 5:37 AM [facility] PLT 208 130 - 400 x10'3/uL 05/20/2024 5:37 AM [facility] MPV 10.8 9.3 - 12.2 FL 05/20/2024 5:37 AM [facility] DIFFERENTIAL TYPE AUTOMATED DIFFERENTIAL 05/20/2024 5:37 AM [facility] NEUTROPHILS % 80.4 % 05/20/2024 5:37 AM [facility] LYMPHOCYTES % 11.8 % 05/20/2024 5:37 AM [facility] MONOCYTES % 5.5 % 05/20/2024 5:37 AM [facility] EOSINOPHILS 1.5 % 05/20/2024 5:37 AM [facility] BASOPHILS 0.3 % 05/20/2024 5:37 AM [facility] IMMATURE GRANS % 0.5 % 05/20/20 5:37 AM [facility] ABS. NEUTROPHILS 7.78(H) 1.80 - 7.70 x10'3/uL 05/20/2024 5:37 AM [facility] ABS. LYMPHOCYTES 1.14 1.00 - 4.80 x10'3/uL 05/20/2024 5:37 AM RECORDS MANAGEMENT TECHNICIAN [facility] ABS. MONOCYTES 0.53 0.30 - 0.82 x10'3/uL 05/20/2024 5:37 AM RECORDS MANAGEMENT TECHNICIAN [facility] ABS. EOSINOPHILS 0.15 0.04 - 0.54 x10'3/uL 05/20/2024 5:37 AM [facility] ABS. BASOPHILS 0.03 0.01 - 0.08 x10'3/uL 05/20/2024 5:37 AM [facility] ABS. IMMATURE GRANULOCYTES 0.05 0.00 - 0.49 x10'3/uL 05/20/2024 5:37 AM [facility] 05/20/2024 5:18 AM RECORDS MANAGEMENT TECHNICIAN Mansoor Lema MD LABORATORY Final Result [facility] [address] [place] [address], * (ABNORMAL) BASIC METABOLIC PANEL (05/20/2024 5:18 AM RECORDS MANAGEMENT TECHNICIAN) [facility] GLUCOSE 150(H) 70 - 99 MG/DL 05/20/2024 5:58 AM [facility] BUN 16 7 - 18 MG/DL 05/20/2024 5:58 AM [facility] CREATININE S/P/B 0.52(L) 0.7 - 1.3 MG/DL 05/20/2024 5:58 AM RECORDS MANAGEMENT TECHNICIAN [facility] SODIUM S/P/B 141 136 - 145 MMOL/L 05/20/2024 5:58 AM [facility] POTASSIUM S/P/B 4.1 3.5 - 5.1 MMOL/L 05/20/2024 5:58 AM RECORDS MANAGEMENT TECHNICIAN [facility] CHLORIDE S/P/B 109 97 - 115 MMOL/L 05/20/2024 5:58 AM RECORDS MANAGEMENT TECHNICIAN [facility] CO2 27.8 21 - 32 MMOL/L 05/20/2024 5:58 AM [facility] CALCIUM S/P/B 8.8 8.5 - 10.1 MG/DL 05/20/2024 5:58 AM [facility] ANION GAP 4.2 2 - 10 MMOL/L 05/20/2024 5:58 AM [facility] BUN CREATININE RATIO 30.6(H) 6 - 26 05/20/2024 5:58 AM [facility] GFR ESTIMATE >90 >90 ML/MIN/1.7 3 M2 05/20/2024 5:58 AM [facility] Comment: NOTE: eGFR is not calculated for patients <18 years of age or gender unknown. This is an estimated GFR calculation using the new CKD EPI creatinine equation without race and so does not require a correction factor for race. This estimated GFR should not be used for calculating drug doses. 05/20/2024 5:18 AM RECORDS MANAGEMENT TECHNICIAN Mansoor Lema MD LABORATORY Final Result [facility] [address] [place] [address], * (ABNORMAL) MAGNESIUM (05/20/2024 5:18 AM RECORDS MANAGEMENT TECHNICIAN) MAGNESIUM 1.7(L) 1.8 - 2.4 MG/DL 05/20/2024 5:58 AM RECORDS MANAGEMENT TECHNICIAN [facility] 05/20/2024 5:18 AM RECORDS MANAGEMENT TECHNICIAN us Mansoor Lema MD LABORATORY Final Result Performing Organization Address [facility] Co de Phone Number [facility] [address] [place] [address], [place] [phone] * Vancomycin Random Level (05/20/2024 5:18 AM RECORDS MANAGEMENT TECHNICIAN) [facility] VANCOMYCIN RANDOM 18.4 MCG/ML 05/20/2024 5:58 AM RECORDS MANAGEMENT TECHNICIAN [facility] Comment:NO THERAPEUTIC RANGE AVAILABLE LAST DOSE UNKNOWN LAST DOSE 05/20/2024 9:09 AM RECORDS MANAGEMENT TECHNICIAN [facility] 05/20/2024 5:18 AM RECORDS MANAGEMENT TECHNICIAN us Mansoor Lema MD LABORATORY Final Result Performing Organization Address [facility] Co de Phone Number [facility] [address] [place] [address], [place] [phone] * (ABNORMAL) POCT glucose (05/19/2024 9:11 PM RECORDS MANAGEMENT TECHNICIAN) [facility] GLUCOSE POC 144(H) 70 - 99 mg/dL 05/19/2024 9:14 PM RECORDS MANAGEMENT TECHNICIAN [facility] 05/19/2024 9:11 PM RECORDS MANAGEMENT TECHNICIAN us Mansoor Lema MD POCT ORDERABLES - DEVICE Final R esult Performing Organization Address City/[facility]/ZIP Co de Phone Number [facility] [address] [place] [address], [place] [phone] * (ABNORMAL) POCT glucose (05/19/2024 3:48 PM RECORDS MANAGEMENT TECHNICIAN) GLUCOSE POC 250(H) 70 - 99 mg/dL 05/19/2024 4:21 PM RECORDS MANAGEMENT TECHNICIAN [facility] 05/19/2024 3:48 PM RECORDS MANAGEMENT TECHNICIAN us Mansoor Lema MD POCT ORDERABLES - DEVICE Final R esult Performing Organization Address City/[facility]/ZIP Co de Phone Number [address] [address], [place] [phone] * (ABNORMAL) POCT glucose (05/19/2024 12:04 PM RECORDS MANAGEMENT TECHNICIAN) GLUCOSE POC 194(H) 70 - 99 mg/dL 05/19/2024 12:08 PM RECORDS MANAGEMENT TECHNICIAN [facility] 05/19/2024 12:0 4 PM RECORDS MANAGEMENT TECHNICIAN us Mansoor Lema MD POCT ORDERABLES - DEVICE Final R esult Performing Organization Address City/[facility]/ZIP Co de Phone Number [facility] [address] [place] [address], [place] [phone] * (ABNORMAL) POCT glucose (05/19/2024 6:01 AM RECORDS MANAGEMENT TECHNICIAN) GLUCOSE POC 139(H) 70 - 99 mg/dL 05/19/2024 6:44 AM RECORDS MANAGEMENT TECHNICIAN [facility] 05/19/2024 6:01 AM RECORDS MANAGEMENT TECHNICIAN us Mansoor Lema MD POCT ORDERABLES - DEVICE Final R esult [facility] [address] [place] [address], [place] [phone] * (ABNORMAL) MAGNESIUM (05/19/2024 5:10 AM RECORDS MANAGEMENT TECHNICIAN) MAGNESIUM 1.5(L) 1.8 - 2.4 MG/DL 05/19/2024 6:22 AM RECORDS MANAGEMENT TECHNICIAN [facility] 05/19/2024 5:10 AM RECORDS MANAGEMENT TECHNICIAN us Mansoor Lema MD LABORATORY Final Result [facility] [address] [place] [address], * (ABNORMAL) CBC W/DIFF AUTOMATED (05/19/2024 5:10 AM RECORDS MANAGEMENT TECHNICIAN) Pathologist [facility] WBC 12.25(H) 4.5 - 11.0 x10'3/uL 05/19/2024 5:57 AM RECORDS MANAGEMENT TECHNICIAN [facility] RBC 3.71(L) 4.70 - 6.10 x10'6/uL 05/19/2024 5:57 AM RECORDS MANAGEMENT TECHNICIAN [facility] HGB 9.9(L) 14.0 - 18.0 G/DL 05/19/2024 5:57 AM RECORDS MANAGEMENT TECHNICIAN [facility] HCT 31.7(L) 43.0 - 54.0 % 05/19/2024 5:57 AM RECORDS MANAGEMENT TECHNICIAN [facility] MCV 85.4 80.0 - 94.0 FL 05/19/2024 5:57 AM RECORDS MANAGEMENT TECHNICIAN [facility] MCH 26.7(L) 27.0 - 31.0 PG 05/19/2024 5:57 AM RECORDS MANAGEMENT TECHNICIAN [facility] MCHC 31.2(L) 32.0 - 36.0 G/DL 05/19/2024 5:57 AM [facility] RDW 15.8(H) 11.5 - 14.5 % 05/19/2024 5:57 AM [facility] PLT 195 130 - 400 x10'3/uL 05/19/2024 5:57 AM [facility] MPV 11.1 9.3 - 12.2 FL 05/19/2024 5:57 AM [facility] DIFFERENTIAL TYPE AUTOMATED DIFFERENTIAL 05/19/2024 5:57 AM [facility] NEUTROPHILS % 85.6 % 05/19/2024 5:57 AM [facility] LYMPHOCYTES % 8.5 % 05/19/2024 5:57 AM [facility] MONOCYTES % 4.6 % 05/19/2024 5:57 AM [facility] EOSINOPHILS 0.7 % 05/19/2024 5:57 AM [facility] BASOPHILS 0.2 % 05/19/2024 5:57 AM [facility] IMMATURE GRANS % 0.4 % 05/19/20 5:57 AM [facility] ABS. NEUTROPHILS 10.49(H) 1.80 - 7.70 x10'3/uL 05/19/2024 5:57 AM [facility] ABS. LYMPHOCYTES 1.04 1.00 - 4.80 x10'3/uL 05/19/2024 5:57 AM [facility] ABS. MONOCYTES 0.56 0.30 - 0.82 x10'3/uL 05/19/2024 5:57 AM [facility] ABS. EOSINOPHILS 0.08 0.04 - 0.54 x10'3/uL 05/19/2024 5:57 AM [facility] ABS. BASOPHILS 0.03 0.01 - 0.08 x10'3/uL 05/19/2024 5:57 AM [facility] ABS. IMMATURE GRANULOCYTES 0.05 0.00 - 0.49 x10'3/uL 05/19/2024 5:57 AM [facility] 05/19/2024 5:10 AM RECORDS MANAGEMENT TECHNICIAN us Mansoor Lema MD LABORATORY Final Result [facility] [address] [place] [address], * (ABNORMAL) BASIC METABOLIC PANEL (05/19/2024 5:10 AM RECORDS MANAGEMENT TECHNICIAN) GLUCOSE 145(H) 70 - 99 MG/DL 05/19/2024 6:22 AM [facility] BUN 16 7 - 18 MG/DL 05/19/2024 6:22 AM [facility] CREATININE S/P/B 0.46(L) 0.7 - 1.3 MG/DL 05/19/2024 6:22 AM [facility] SODIUM S/P/B 138 136 - 145 MMOL/L 05/19/2024 6:22 AM [facility] POTASSIUM S/P/B 3.6 3.5 - 5.1 MMOL/L 05/19/2024 6:22 AM [facility] CHLORIDE S/P/B 106 97 - 115 MMOL/L 05/19/2024 6:22 AM [facility] CO2 28.3 21 - 32 MMOL/L 05/19/2024 6:22 AM [facility] CALCIUM S/P/B 8.7 8.5 - 10.1 MG/DL 05/19/2024 6:22 AM [facility] ANION GAP 3.7 2 - 10 MMOL/L 05/19/2024 6:22 AM [facility] BUN CREATININE RATIO 34.9(H) 6 - 26 05/19/2024 6:22 AM [facility] GFR ESTIMATE >90 >90 ML/MIN/1.7 3 M2 05/19/2024 6:22 AM [facility] Comment: NOTE: eGFR is not calculated for patients <18 years of age or gender unknown. This is an estimated GFR calculation using the new CKD EPI creatinine equation without race and so does not require a correction factor for race. This estimated GFR should not be used for calculating drug doses. 05/19/2024 5:10 AM RECORDS MANAGEMENT TECHNICIAN us Mansoor Lema MD LABORATORY Final Result [facility] [address] [place] [address], [place] [phone] * CULTURE, BACTERIA, BLOOD (05/19/2024 5:10 AM RECORDS MANAGEMENT TECHNICIAN) SPEC DESCRIPTION BLOOD 05/19/2024 12:30 AM RECORDS MANAGEMENT TECHNICIAN [facility] SPECIAL REQUESTS NO SPECIAL REQUEST 05/19/2024 12:30 AM RECORDS MANAGEMENT TECHNICIAN [facility] CULTURE RESULT NO GROWTH 5 DAYS 05/24/2024 8:03 AM RECORDS MANAGEMENT TECHNICIAN [facility] BLOOD SPECIMEN OBTAINED FOR BLOOD CULTURE / Unknown 05/19/2024 5:10 AM RECORDS MANAGEMENT TECHNICIAN 05/19/2024 5:41 AM RECORDS MANAGEMENT TECHNICIAN us Mansoor Lema MD MICROBIOLOGY - GENERAL ORDERABLE S Final Result [facility] [address] [place] [address], [place] [phone] * (ABNORMAL) POCT glucose (05/18/2024 8:08 PM RECORDS MANAGEMENT TECHNICIAN) GLUCOSE POC 194(H) 70 - 99 mg/dL 05/18/2024 8:09 PM RECORDS MANAGEMENT TECHNICIAN [facility] 05/18/2024 8:08 PM RECORDS MANAGEMENT TECHNICIAN us Mansoor Lema MD POCT ORDERABLES - DEVICE Final R esult [facility] [address] [place] [address], [place] [phone] * (ABNORMAL) POCT glucose (05/18/2024 3:16 PM RECORDS MANAGEMENT TECHNICIAN) GLUCOSE POC 161(H) 70 - 99 mg/dL 05/18/2024 4:20 PM RECORDS MANAGEMENT TECHNICIAN [facility] 05/18/2024 3:16 PM RECORDS MANAGEMENT TECHNICIAN us Mansoor Lema MD POCT ORDERABLES - DEVICE Final R esult [facility] [address] [place] [address], [place] [phone] * (ABNORMAL) BASIC METABOLIC PANEL (05/18/2024 12:19 PM RECORDS MANAGEMENT TECHNICIAN) GLUCOSE 200(H) 70 - 99 MG/DL 05/18/2024 2:37 PM RECORDS MANAGEMENT TECHNICIAN [facility] BUN 21(H) 7 - 18 MG/DL 05/18/2024 2:37 PM RECORDS MANAGEMENT TECHNICIAN [facility] CREATININE S/P/B 0.61(L) 0.7 - 1.3 MG/DL 05/18/2024 2:37 PM RECORDS MANAGEMENT TECHNICIAN [facility] SODIUM S/P/B 136 136 - 145 MMOL/L 05/18/2024 2:37 PM RECORDS MANAGEMENT TECHNICIAN [facility] POTASSIUM S/P/B 3.9 3.5 - 5.1 MMOL/L 05/18/2024 2:37 PM RECORDS MANAGEMENT TECHNICIAN [facility] CHLORIDE S/P/B 106 97 - 115 MMOL/L 05/18/2024 2:37 PM RECORDS MANAGEMENT TECHNICIAN [facility] CO2 24.4 21 - 32 MMOL/L 05/18/2024 2:37 PM RECORDS MANAGEMENT TECHNICIAN [facility] CALCIUM S/P/B 8.5 8.5 - 10.1 MG/DL 05/18/2024 2:37 PM RECORDS MANAGEMENT TECHNICIAN [facility] ANION GAP 5.6 2 - 10 MMOL/L 05/18/2024 2:37 PM RECORDS MANAGEMENT TECHNICIAN [facility] BUN CREATININE RATIO 34.7(H) 6 - 26 05/18/2024 2:37 PM RECORDS MANAGEMENT TECHNICIAN [facility] GFR ESTIMATE >90 >90 ML/MIN/1.7 3 M2 05/18/2024 2:37 PM [facility] Comment: NOTE: eGFR is not calculated for patients <18 years of age or gender unknown. This is an estimated GFR calculation using the new CKD EPI creatinine equation without race and so does not require a correction factor for race. This estimated GFR should not be used for calculating drug doses. 05/18/2024 12:1 9 PM RECORDS MANAGEMENT TECHNICIAN us Erika Mtz MD LABORATORY Final Res ult [facility] [address] [place] [address], [place] [phone] * (ABNORMAL) CBC W/DIFF AUTOMATED (05/18/2024 12:19 PM RECORDS MANAGEMENT TECHNICIAN) WBC 13.29(H) 4.5 - 11.0 x10'3/uL 05/18/2024 12:59 PM RECORDS MANAGEMENT TECHNICIAN [facility] RBC 3.87(L) 4.70 - 6.10 x10'6/uL 05/18/2024 12:59 PM [facility] HGB 10.3(L) 14.0 - 18.0 G/DL 05/18/2024 12:59 PM [facility] HCT 34.2(L) 43.0 - 54.0 % 05/18/2024 12:59 PM [facility] MCV 88.4 80.0 - 94.0 FL 05/18/2024 12:59 PM [facility] MCH 26.6(L) 27.0 - 31.0 PG 05/18/2024 12:59 PM [facility] MCHC 30.1(L) 32.0 - 36.0 G/DL 05/18/2024 12:59 PM [facility] RDW 15.9(H) 11.5 - 14.5 % 05/18/2024 12:59 PM [facility] PLT 187 130 - 400 x10'3/uL 05/18/2024 12:59 PM [facility] MPV 11.6 9.3 - 12.2 FL 05/18/2024 12:59 PM [facility] DIFFERENTIAL TYPE AUTOMATED DIFFERENTIAL 05/18/2024 12:59 PM [facility] NEUTROPHILS % 84.5 % 05/18/2024 12:59 PM [facility] LYMPHOCYTES % 10.3 % 05/18/2024 12:59 PM [facility] MONOCYTES % 3.8 % 05/18/2024 12:59 PM [facility] EOSINOPHILS 0.5 % 05/18/2024 12:59 PM RECORDS MANAGEMENT TECHNICIAN [facility] BASOPHILS 0.2 % 05/18/2024 12:59 PM RECORDS MANAGEMENT TECHNICIAN [facility] IMMATURE GRANS % 0.7 % 05/18/20 12:59 PM RECORDS MANAGEMENT TECHNICIAN [facility] ABS. NEUTROPHILS 11.24(H) 1.80 - 7.70 x10'3/uL 05/18/2024 12:59 PM RECORDS MANAGEMENT TECHNICIAN [facility] ABS. LYMPHOCYTES 1.37 1.00 - 4.80 x10'3/uL 05/18/2024 12:59 PM RECORDS MANAGEMENT TECHNICIAN [facility] ABS. MONOCYTES 0.51 0.30 - 0.82 x10'3/uL 05/18/2024 12:59 PM RECORDS MANAGEMENT TECHNICIAN [facility] ABS. EOSINOPHILS 0.06 0.04 - 0.54 x10'3/uL 05/18/2024 12:59 PM RECORDS MANAGEMENT TECHNICIAN [facility] ABS. BASOPHILS 0.02 0.01 - 0.08 x10'3/uL 05/18/2024 12:59 PM RECORDS MANAGEMENT TECHNICIAN [facility] ABS. IMMATURE GRANULOCYTES 0.09 0.00 - 0.49 x10'3/uL 05/18/2024 12:59 PM [facility] 05/18/2024 12:1 9 PM RECORDS MANAGEMENT TECHNICIAN us Erika Mtz MD LABORATORY Final Res ult [facility] [address] [place] [address], * (ABNORMAL) POCT glucose (05/18/2024 11:25 AM RECORDS MANAGEMENT TECHNICIAN) [facility] Signature GLUCOSE POC 227(H) 70 - 99 mg/dL 05/18/2024 12:39 PM RECORDS MANAGEMENT TECHNICIAN [facility] 05/18/2024 11:2 5 AM RECORDS MANAGEMENT TECHNICIAN us Mansoor Lema MD POCT ORDERABLES - DEVICE Final R esult Performing Organization Address City/[facility]/ZIP Co de Phone Number [facility] [address] [place] [address], [place] [phone] * (ABNORMAL) POCT glucose (05/18/2024 5:49 AM RECORDS MANAGEMENT TECHNICIAN) GLUCOSE POC 176(H) 70 - 99 mg/dL 05/18/2024 5:52 AM RECORDS MANAGEMENT TECHNICIAN [facility] 05/18/2024 5:49 AM RECORDS MANAGEMENT TECHNICIAN us Erika Mtz MD POCT ORDERABLES - DEVICE Final Result Performing Organization Address City/[facility] Co de Phone Number [facility] [address] [place] [address], [place] [phone] * (ABNORMAL) POCT glucose (05/17/2024 7:44 PM RECORDS MANAGEMENT TECHNICIAN) GLUCOSE POC 189(H) 70 - 99 mg/dL 05/17/2024 8:11 PM RECORDS MANAGEMENT TECHNICIAN [facility] 05/17/2024 7:44 PM RECORDS MANAGEMENT TECHNICIAN us Erika Mtz MD POCT ORDERABLES - DEVICE Final Result Performing Organization Address City/[facility]/ZIP Co de Phone Number [facility] [address] [place] [address], [place] [phone] * (ABNORMAL) POCT glucose (05/17/2024 3:39 PM RECORDS MANAGEMENT TECHNICIAN) GLUCOSE POC 198(H) 70 - 99 mg/dL 05/17/2024 3:46 PM RECORDS MANAGEMENT TECHNICIAN [facility] 05/17/2024 3:39 PM RECORDS MANAGEMENT TECHNICIAN Erika Mtz MD POCT ORDERABLES - DEVICE Final Result [facility] [address] [place] [address], [place] [phone] * (ABNORMAL) POCT glucose (05/17/2024 10:33 AM RECORDS MANAGEMENT TECHNICIAN) GLUCOSE POC 186(H) 70 - 99 mg/dL 05/17/2024 11:23 AM RECORDS MANAGEMENT TECHNICIAN [facility] 05/17/2024 10:3 3 AM RECORDS MANAGEMENT TECHNICIAN Erika Mtz MD POCT ORDERABLES - DEVICE Final Result Performing Organization Address City/[facility]/ZIP Co de Phone Number [facility] [address] [place] [address], [place] [phone] * Vancomycin Random Level (05/17/2024 9:22 AM RECORDS MANAGEMENT TECHNICIAN) VANCOMYCIN RANDOM 18.4 MCG/ML 05/17/2024 10:22 AM RECORDS MANAGEMENT TECHNICIAN [facility] Comment:NO THERAPEUTIC RANGE AVAILABLE LAST DOSE UNKNOWN LAST DOSE 05/17/2024 11:31 AM RECORDS MANAGEMENT TECHNICIAN [facility] 05/17/2024 9:22 AM RECORDS MANAGEMENT TECHNICIAN Talha Fung MD LABORATORY Final Resul t [facility] [address] [place], [place] [id number], * TROPONIN, QUANT (05/17/2024 6:10 AM RECORDS MANAGEMENT TECHNICIAN) Pathologist [facility] TROPONIN I HIGH SENSITIVITY 50 <79 ng/L 05/17/2024 7:00 AM [facility] Comment: HIGH DOSES OF BIOTIN, TROPONIN-SPECIFIC AUTOANTIBODIES, AND ANTIBODY THERAPY CONTAINING HAMA MAY INTERFERE WITH THIS TEST RESULT. CORRELATION TO CLINICAL HISTORY AND PRESENTATION RECOMMENDED. 05/17/2024 6:10 AM RECORDS MANAGEMENT TECHNICIAN Talha Fung MD LABORATORY Final Resul t [facility] [address] [place] [address], * (ABNORMAL) BASIC METABOLIC PANEL (05/17/2024 6:10 AM RECORDS MANAGEMENT TECHNICIAN) [facility] GLUCOSE 199(H) 70 - 99 MG/DL 05/17/2024 7:00 AM [facility] BUN 28(H) 7 - 18 MG/DL 05/17/2024 7:00 AM [facility] CREATININE S/P/B 0.89 0.7 - 1.3 MG/DL 05/17/2024 7:00 AM [facility] SODIUM S/P/B 135(L) 136 - 145 MMOL/L 05/17/2024 7:00 AM [facility] POTASSIUM S/P/B 3.7 3.5 - 5.1 MMOL/L 05/17/2024 7:00 AM [facility] CHLORIDE S/P/B 104 97 - 115 MMOL/L 05/17/2024 7:00 AM [facility] CO2 27.0 21 - 32 MMOL/L 05/17/2024 7:00 AM [facility] CALCIUM S/P/B 8.1(L) 8.5 - 10.1 MG/DL 05/17/2024 7:00 AM [facility] ANION GAP 4.0 2 - 10 MMOL/L 05/17/2024 7:00 AM [facility] BUN CREATININE RATIO 31.3(H) 6 05/17/2024 7:00 AM [facility] GFR ESTIMATE 87(L) >90 ML/MIN/1.7 3 M2 05/17/2024 7:00 AM [facility] Comment: NOTE: eGFR is not calculated for patients <18 years of age or gender unknown. This is an estimated GFR calculation using the new CKD EPI creatinine equation without race and so does not require a correction factor for race. This estimated GFR should not be used for calculating drug doses. 05/17/2024 6:10 AM RECORDS MANAGEMENT TECHNICIAN Talha Fung MD LABORATORY Final Resul t [facility] [address] [place] [address], [place] [phone] * THYROID STIM HORMONE, TSH (05/17/2024 6:10 AM RECORDS MANAGEMENT TECHNICIAN) TSH 2.810 0.358 - 3.74 uIU/ML 05/17/2024 7:00 AM RECORDS MANAGEMENT TECHNICIAN [facility] Comment: HIGH DOSES OF BIOTIN MAY INTERFERE WITH THIS TEST RESULT. CORRELATION TO CLINICAL HISTORY AND PRESENTATION RECOMMENDED. 05/17/2024 6:10 AM RECORDS MANAGEMENT TECHNICIAN Talha Fung MD LABORATORY Final Resul t [facility] [address] [place], [place] [address], [place] [phone] * (ABNORMAL) HEMOGLOBIN, GLYCATED (05/17/2024 6:10 AM RECORDS MANAGEMENT TECHNICIAN) HGB A1C 7.7(H) <5.7 % 05/17/2024 8:32 AM RECORDS MANAGEMENT TECHNICIAN [facility] Comment: ADA GUIDELINES 2010 5.7 TO 6.4% INCREASED RISK OF DIABETES > OR = 6.5% CONSISTENT WITH DIABETES ESTIMATED AVG GLUCOSE 174 mg/dL 05/17/2024 8:32 AM RECORDS MANAGEMENT TECHNICIAN [facility] 05/17/2024 6:10 AM RECORDS MANAGEMENT TECHNICIAN us Talha Fung MD LABORATORY Final Resul t [facility] [address] [place] [address], * (ABNORMAL) MAGNESIUM (05/17/2024 6:10 AM RECORDS MANAGEMENT TECHNICIAN) MAGNESIUM 1.3(L) 1.8 - 2.4 MG/DL 05/17/2024 7:00 AM RECORDS MANAGEMENT TECHNICIAN [facility] 05/17/2024 6:10 AM RECORDS MANAGEMENT TECHNICIAN us Talha Fung MD LABORATORY Final Resul t [facility] [address] [place] [address], [place] [phone] * (ABNORMAL) PROTHROMBIN TIME, VENOUS (05/17/2024 6:10 AM RECORDS MANAGEMENT TECHNICIAN) PROTIME 17.6(H) 10.2 - 12.9 SEC 05/17/2024 6:49 AM RECORDS MANAGEMENT TECHNICIAN [facility] INR 1.6 05/17/2024 6:49 AM [facility] Comment: Recommended INR Therapeutic Goals: ??2.0-3.0 Routine Therapy ??2.5-3.5 Mechanical Prosthetic Valves (High Risk) 05/17/2024 6:10 AM RECORDS MANAGEMENT TECHNICIAN Talha Fung MD LABORATORY Final Resul t [facility] [address] [place] [address], [place] [phone] * (ABNORMAL) CBC W/DIFF AUTOMATED (05/17/2024 6:10 AM RECORDS MANAGEMENT TECHNICIAN) WBC 23.38(H) 4.5 - 11.0 x10'3/uL 05/17/2024 6:29 AM [facility] RBC 3.38(L) 4.70 - 6.10 x10'6/uL 05/17/2024 6:29 AM [facility] HGB 9.1(L) 14.0 - 18.0 G/DL 05/17/2024 6:29 AM [facility] HCT 29.4(L) 43.0 - 54.0 % 05/17/2024 6:29 AM [facility] MCV 87.0 80.0 - 94.0 FL 05/17/2024 6:29 AM [facility] MCH 26.9(L) 27.0 - 31.0 PG 05/17/2024 6:29 AM [facility] MCHC 31.0(L) 32.0 - 36.0 G/DL 05/17/2024 6:29 AM [facility] RDW 16.4(H) 11.5 - 14.5 % 05/17/2024 6:29 AM [facility] PLT 169 130 - 400 x10'3/uL 05/17/2024 6:29 AM [facility] MPV 10.3 9.3 - 12.2 FL 05/17/2024 6:29 AM [facility] DIFFERENTIAL TYPE MANUAL DIFFERENTIAL 05/17/2024 7:06 AM [facility] SEG NEUTROPHILS 89 % 7:06 AM [facility] LYMPHOCYTES 3 % 05/17/2024 7:06 AM [facility] MONOCYTES 4 % 05/17/2024 7:06 AM [facility] BANDS 4 % 05/17/2024 7:06 AM [facility] ABS. NEUTROPHILS 21.74(H) 1.80 - 7.70 x10'3/uL 05/17/2024 7:06 AM [facility] ABS. LYMPHOCYTES 0.70(L) 1.00 - 4.80 x10'3/uL 05/17/2024 7:06 AM [facility] ABS. MONOCYTES 0.94(H) 0.30 - 0.82 x10'3/uL 05/17/2024 7:06 AM [facility] RBC MORPHOLOGY SLIDE REVIEWED 2023 7:06 AM [facility] ANISO 1+ 05/17/2024 7:06 AM [facility] ACANTHOCYTES 1+ 05/17/2024 7:06 AM [facility] PLT EST. ADEQUATE 05/17/2024 7:06 AM [facility] 05/17/2024 6:10 AM RECORDS MANAGEMENT TECHNICIAN us Talha Fung MD LABORATORY Final Resul t [facility] [address] [place] [address], * (ABNORMAL) CULTURE, BLOOD, PCR PANEL (05/17/2024 6:09 AM RECORDS MANAGEMENT TECHNICIAN) [facility] MEC/MREJ RESISTANT GENE PCR (BLD) NOT DETECTED NOT DETECTED 05/18/2024 8:12 AM RECORDS MANAGEMENT TECHNICIAN [facility] Comment: Note: Antimicrobial resistance can occur via multiple mechanisms. A NOT DETECTED result from the PK CleanArray antimicrobial resistance gene assay does not indicate antimicrobial susceptibility. A DETECTED result for a genetic marker of antimicrobial resistance gene assay does not indicate antimicrobial susceptibility. Subculturing is required for species identification and susceptibility testing of isolates. ENTEROCOCCUS FAECALIS PCR (BLD) NOT DETECTED NOT DETECTED 05/18/2024 8:12 AM RECORDS MANAGEMENT TECHNICIAN [facility] ENTEROCUCCUS FAECIUM PCR (BLD) NOT DETECTED NOT DETECTED 05/18/2024 8:12 AM RECORDS MANAGEMENT TECHNICIAN [facility] LISTERIA MONOCYTOGENES PCR (BLD) NOT DETECTED NOT DETECTED 05/18/2024 8:12 AM RECORDS MANAGEMENT TECHNICIAN [facility] STAPH SPECIES PCR (BLD) DETECTED(A) NOT DETECTED 05/18/2024 8:12 AM RECORDS MANAGEMENT TECHNICIAN [facility] STAPH AUREUS PCR (BLD) CALLED TO AND REPEATED BACK BY YESSI SCALES PHARMD AT 0810 ON 05/18/24 DIANA NOT DETECTED 05/18/2024 8:12 AM RECORDS MANAGEMENT TECHNICIAN [facility] STAPHYLOCOCCUS EPIDERMIDIS PCR (BLD) NOT DETECTED NOT DETECTED 05/18/2024 8:12 AM RECORDS MANAGEMENT TECHNICIAN [facility] STAPHYLOCOCCUS LUGDUNENSIS PCR (BLD) NOT DETECTED NOT DETECTED 05/18/2024 8:12 AM RECORDS MANAGEMENT TECHNICIAN [facility] STREPTOCOCCUS PCR (BLD) NOT DETECTED NOT DETECTED 05/18/2024 8:12 AM RECORDS MANAGEMENT TECHNICIAN [facility] STREP AGALACTIAE PCR (BLD) NOT DETECTED NOT DETECTED 05/18/2024 8:12 AM [facility] STREP PNEUMONIAE PCR (BLD) NOT DETECTED NOT DETECTED 05/18/2024 8:12 AM [facility] STREP PYOGENES (GRP A) PCR (BLD) NOT DETECTED NOT DETECTED 05/18/2024 8:12 AM [facility] ACINETOBACTER BAUMANII PCR (BLD) NOT DETECTED NOT DETECTED 05/18/2024 8:12 AM [facility] BACTEROIDES FRAGILIS PCR (BLD) NOT DETECTED NOT DETECTED 05/18/2024 8:12 AM [facility] ENTEROBACTERIACEAE PCR (BLD) NOT DETECTED NOT DETECTED 05/18/2024 8:12 AM [facility] ENTEROBACTER CLOACAE COMP PCR (BLD) NOT DETECTED NOT DETECTED 05/18/2024 8:12 AM [facility] ESCHERICHIA COLI PCR (BLD) NOT DETECTED NOT DETECTED 05/18/2024 8:12 AM [facility] KLEBSIELLA AEROGENES PCR (BLD) NOT DETECTED NOT DETECTED 05/18/2024 8:12 AM [facility] KLEBSIELLA OXYTOCA PCR (BLD) NOT DETECTED NOT DETECTED 05/18/2024 8:12 AM [facility] KLEBSIELLA PNEUMONIAE PCR (BLD) NOT DETECTED NOT DETECTED 05/18/2024 8:12 AM [facility] PROTEUS PCR (BLD) NOT DETECTED NOT DETECTED 05/18/2024 8:12 AM [facility] SALMONELLA PCR (BLD) NOT DETECTED NOT DETECTED 05/18/2024 8:12 AM [facility] SERRATIA MARCESCENS PCR (BLD) NOT DETECTED NOT DETECTED 05/18/2024 8:12 AM [facility] H. INFLUENZAE PCR (BLD) NOT DETECTED NOT DETECTED 05/18/2024 8:12 AM RECORDS MANAGEMENT TECHNICIAN [facility] N. MENINGITIDIS PCR (BLD) NOT DETECTED NOT DETECTED 05/18/2024 8:12 AM RECORDS MANAGEMENT TECHNICIAN [facility] PSEUDOMONAS AERUGINOSA PCR (BLD) NOT DETECTED NOT DETECTED 05/18/2024 8:12 AM RECORDS MANAGEMENT TECHNICIAN [facility] STENOTROPHOMONAS MALTOPHILIA PCR (BLD) NOT DETECTED NOT DETECTED 05/18/2024 8:12 AM RECORDS MANAGEMENT TECHNICIAN [facility] YA ALBICANS PCR (BLD) NOT DETECTED NOT DETECTED 05/18/2024 8:12 AM RECORDS MANAGEMENT TECHNICIAN [facility] YA AURIS PCR (BLD) NOT DETECTED NOT DETECTED 05/18/2024 8:12 AM RECORDS MANAGEMENT TECHNICIAN [facility] YA GLABRATA PCR (BLD) NOT DETECTED NOT DETECTED 05/18/2024 8:12 AM RECORDS MANAGEMENT TECHNICIAN [facility] YA KRUSEI PCR (BLD) NOT DETECTED NOT DETECTED 05/18/2024 8:12 AM RECORDS MANAGEMENT TECHNICIAN [facility] YA PARAPSILOSIS PCR (BLD) NOT DETECTED NOT DETECTED 05/18/2024 8:12 AM RECORDS MANAGEMENT TECHNICIAN [facility] YA TROPICALIS PCR (BLD) NOT DETECTED NOT DETECTED 05/18/2024 8:12 AM RECORDS MANAGEMENT TECHNICIAN [facility] CRYPTOCOCCUS NEOFORMANS/GATTII PCR (BLD) NOT DETECTED NOT DETECTED 05/18/2024 8:12 AM RECORDS MANAGEMENT TECHNICIAN [facility] 05/17/2024 6:09 AM RECORDS MANAGEMENT TECHNICIAN us Talha Fung MD MICROBIOLOGY - GENERAL TU CARPIO Final Result [facility] [address] [place] [address], [place] [phone] * (ABNORMAL) POCT glucose (05/17/2024 6:09 AM RECORDS MANAGEMENT TECHNICIAN) GLUCOSE POC 188(H) 70 - 99 mg/dL 05/17/2024 6:15 AM RECORDS MANAGEMENT TECHNICIAN [facility] 05/17/2024 6:09 AM RECORDS MANAGEMENT TECHNICIAN Erika Mtz MD POCT ORDERABLES - DEVICE Final Result [facility] [address] [place] [address], [place] [phone] * (ABNORMAL) CULTURE, BACTERIA, BLOOD (05/17/2024 6:09 AM RECORDS MANAGEMENT TECHNICIAN) SPEC DESCRIPTION BLOOD 05/17/2024 1:06 AM [facility] SPECIAL REQUESTS NO SPECIAL REQUEST 05/17/2024 1:06 AM [facility] GRAM STAIN RESULT GRAM POSITIVE COCCI RESEMBLING STAPHYLOCOCCUS SPECIES 05/18/2024 8:10 AM [facility] GRAM STAIN RESULT GRAM STAIN CALLED TO AND REPEATED BACK BY NURIA SANTACRUZ RN, AT 0640, 05/18/24. EMILW 05/18/2024 8:10 AM [facility] GRAM STAIN RESULT PCR TESTING PERFORMED ON THIS SAMPLE 05/18/2024 8:10 AM [facility] CULTURE RESULT GROWTH OF STAPHYLOCOCCUS AUREUS (AA) 05/20/2024 7:07 AM [facility] BLOOD SPECIMEN OBTAINED FOR BLOOD CULTURE / Unknown 05/17/2024 6:09 AM RECORDS MANAGEMENT TECHNICIAN 05/17/2024 6:10 AM RECORDS MANAGEMENT TECHNICIAN Narrative Organism Antibiotic Method Susceptibility Staphylococcus aureus CLINDAMYCIN MURRAY (VITEK) <=0.25: Sensitive Staphylococcus aureus ERYTHROMYCIN MURRAY (VITEK) >=8: Resistant Staphylococcus aureus OXACILLIN MURRAY (VITEK) <=0.25: Sensitive Staphylococcus aureus PENICILLIN G MURRAY (VITEK) >=0.5: Resistant Staphylococcus aureus TRIMETH-SULFAMETH. MURRAY (VITEK) <=10: Sensitive Staphylococcus aureus TETRACYCLINE MURRAY (VITEK) <=1: Sensitive Talha Fung MD MICROBIOLOGY - GENERAL TU CARPIO Final Result Performing Organization Address [facility] Co de Phone Number [facility] [address] [place] [address], [place] [phone] * (ABNORMAL) POCT glucose (05/16/2024 11:11 PM RECORDS MANAGEMENT TECHNICIAN) [facility] GLUCOSE POC 284(H) 70 - 99 mg/dL 05/16/2024 11:55 PM RECORDS MANAGEMENT TECHNICIAN [facility] 05/16/2024 11:1 1 PM RECORDS MANAGEMENT TECHNICIAN Talha Fung MD POCT ORDERABLES - DEVICE Fi nal Result Performing Organization Address [facility] Co de Phone Number [facility] [address] [place] [address], [place] [phone] documented in this encounter Visit Diagnoses Diagnosis Hematuria- Primary Hematuria, unspecified Hematuria Hematuria, unspecified Sepsis, due to unspecified organism, unspecified whether acute organ dysfunction present ([facility]) documented in this encounter Admitting Diagnoses Diagnosis Hematuria Hematuria, unspecified documented in this encounter Administered Medications Inactive Administered Medications - up to 3 most recent administrations Medication Order MAR Action Action Date Dose Rate Site apixaban (ELIQUIS) tablet 5 mg 5 mg, Oral, 2 times daily, Indications: Atrial Fibrillation, First dose on Thu05/20/24 at 1345, Until DiscontinuedIndications:Atrial Fibrillation Given 05/25/2024 8:10 AM RECORDS MANAGEMENT TECHNICIAN 5 mg Given 05/24/2024 8:39 PM RECORDS MANAGEMENT TECHNICIAN 5 mg Given 05/24/2024 8:26 AM RECORDS MANAGEMENT TECHNICIAN 5 mg atorvastatin (LIPITOR) tablet 80 mg 80 mg, Oral, Nightly at bedtime, First dose on Thu05/17/24 at 2100, Until Discontinued Given During Downtime 05/22/2024 8:25 PM RECORDS MANAGEMENT TECHNICIAN 80 mg Given 05/21/2024 8:56 PM RECORDS MANAGEMENT TECHNICIAN 80 mg Given 05/20/2024 8:22 PM RECORDS MANAGEMENT TECHNICIAN 80 mg barium sulfate (E-Z PASTE) 60 % oral cream Oral, IMG once as needed, Contrast, 1 dose, Starting on Thu05/24/24 at 1347, Until Thu05/24/24 at 1348 Given 05/24/2024 1:48 PM RECORDS MANAGEMENT TECHNICIAN barium sulfate (E-Z-PAQUE) 96 % suspension 176 g 176 g, Oral, IMG once as needed, Contrast, 1 dose, Starting on Thu05/24/24 at 1347, Until Thu05/24/24 at 1348 Given 05/24/2024 1:48 PM RECORDS MANAGEMENT TECHNICIAN 176 g carvedilol (COREG) tablet 6.25 mg 6.25 mg, Oral, 2 times daily, First dose on Thu05/20/24 at 0930, Until Discontinued, Hold if HR<60 Given 05/25/2024 8:02 AM RECORDS MANAGEMENT TECHNICIAN 6.25 mg Given 05/24/2024 8:39 PM RECORDS MANAGEMENT TECHNICIAN 6.25 mg Given 05/24/2024 8:26 AM RECORDS MANAGEMENT TECHNICIAN 6.25 mg cefTRIAXone (ROCEPHIN) 1 g in sodium chloride 0.9 % 50 mL IVPB 1 g, Intravenous, at 100 mL/hr, Every 24 hours, First dose on Thu05/17/24 at 1400, Until Discontinued New Bag 05/19/2024 4:34 PM RECORDS MANAGEMENT TECHNICIAN 1 g 100 mL/hr New Bag 05/18/2024 2:14 PM RECORDS MANAGEMENT TECHNICIAN 1 g 100 mL/hr New Bag 05/17/2024 2:31 PM RECORDS MANAGEMENT TECHNICIAN 1 g 100 mL/hr DAPTOmycin (CUBICIN) 600 mg in sodium chloride 0.9 % 100 mL IVPB 600 mg, Intravenous, at 200 mL/hr, Every 24 hours, 38 doses, First dose (after last modification) on Thu05/25/24 at 1030, Last dose on Thu07/01/24 at 1030Indications:Sepsis, due to unspecified organism, unspecified whether acute organ dysfunction present ([facility]) New Bag 05/25/2024 10:14 AM RECORDS MANAGEMENT TECHNICIAN 600 mg 200 mL/hr DAPTOmycin (CUBICIN) 800 mg in sodium chloride 0.9 % 100 mL IVPB 800 mg (rounded from 796 mg = 10 mg/kg ? 79.6 kg Adjusted weight), Intravenous, at 200 mL/hr, Every 24 hours, First dose on Thu05/20/24 at 1030, Until DiscontinuedIndications:Sepsis, due to unspecified organism, unspecified whether acute organ dysfunction present ([facility]) New Bag 05/24/2024 8:27 AM RECORDS MANAGEMENT TECHNICIAN 800 mg 200 mL/hr New Bag 05/23/2024 11:21 AM RECORDS MANAGEMENT TECHNICIAN 800 mg 200 mL/hr New Bag 05/22/2024 11:28 AM RECORDS MANAGEMENT TECHNICIAN 800 mg 200 mL/hr dutasteride (AVODART) capsule 0.5 mg 0.5 mg, Oral, Daily, First dose on Thu05/17/24 at 1400, Until Discontinued, HAZARDOUS MEDICATION: wear single chemotherapy approved gloves. Do not cut, crush or open. Given 05/25/2024 8:10 AM RECORDS MANAGEMENT TECHNICIAN 0.5 mg Given 05/24/2024 8:27 AM RECORDS MANAGEMENT TECHNICIAN 0.5 mg Given 05/23/2024 9:01 AM RECORDS MANAGEMENT TECHNICIAN 0.5 mg ferrous sulfate EC tablet 324 mg 324 mg, Oral, Daily, First dose on Thu05/17/24 at 1400, Until Discontinued, Give 2 hours before or 4 hours after antacids. Do not break, chew, or crush. Given 05/18/2024 8:09 AM RECORDS MANAGEMENT TECHNICIAN 324 mg Given 05/17/2024 2:31 PM RECORDS MANAGEMENT TECHNICIAN 324 mg furosemide (LASIX) tablet 40 mg 40 mg, Oral, Daily, First dose on Thu05/20/24 at 0930, Until Discontinued Given 05/25/2024 8:10 AM RECORDS MANAGEMENT TECHNICIAN 40 mg Given 05/24/2024 8:26 AM RECORDS MANAGEMENT TECHNICIAN 40 mg Given 05/23/2024 9:01 AM RECORDS MANAGEMENT TECHNICIAN 40 mg insulin lispro (HUMALOG/ADMELOG) injection 0-14 Units 0-14 Units, Subcutaneous, 3 times daily before meals, First dose on Thu05/17/24 at 0700, Until Discontinued, Blood Glucose (SENSITIVE Dosing): [Less than 70:? Initiate Hypoglycemia Standing Orders] [71-140: 0 units] [141-180: 2 units] [181-220: 4 units] [221-260: 6 units] [261-300: 8 units] [301-350: 10 units] [351-400: 12 units] [Greater than 400: 14 units and Call Physician] Given 05/25/2024 12:29 PM RECORDS MANAGEMENT TECHNICIAN 8 Units Left Arm Given 05/25/2024 8:01 AM RECORDS MANAGEMENT TECHNICIAN 4 Units Le ft Arm Given 05/24/2024 11:58 AM RECORDS MANAGEMENT TECHNICIAN 2 Units L eft Arm insulin lispro (HUMALOG/ADMELOG) injection 0-7 Units 0-7 Units, Subcutaneous, Nightly at bedtime, First dose on Thu05/16/24 at 2245, Until Discontinued, Blood Glucose (SENSITIVE Dosing): [Less than 70:? Initiate Hypoglycemia Standing Orders] [71-180: ? 0 units] [181-220:? 2 units] [221-260:? 3 units] [261-300:? 4 units] [301-350:? 5 units] [351-400:? 6 units] [Greater than 400:? 7 units and Call Physician] Given 05/21/2024 8:56 PM RECORDS MANAGEMENT TECHNICIAN 2 Units Right Lower Abdomen Given 05/18/2024 8:52 PM RECORDS MANAGEMENT TECHNICIAN 2 Units Ri ght Lower Abdomen Given 05/17/2024 9:32 PM RECORDS MANAGEMENT TECHNICIAN 2 Units Ri ght Arm lisinopril (PRINIVIL) tablet 5 mg 5 mg, Oral, Daily, First dose on Thu05/20/24 at 0930, Until Discontinued Given 05/25/2024 8:11 AM RECORDS MANAGEMENT TECHNICIAN 5 mg Given 05/24/2024 8:26 AM RECORDS MANAGEMENT TECHNICIAN 5 mg Given 05/23/2024 9:01 AM RECORDS MANAGEMENT TECHNICIAN 5 mg LORazepam (ATIVAN) injection 0.5 mg 0.5 mg, Intravenous, Once, 1 dose, On Romelia 05/19/24 at 0315, For IV use, further dilute with an equal volume of saline. Do not exceed a rate of 2 mg/min. Given 05/19/2024 3:00 AM RECORDS MANAGEMENT TECHNICIAN 0.5 mg LORazepam (ATIVAN) injection 0.5 mg 0.5 mg, Intravenous, Once, 1 dose, On 05/23/24 at 2015, For IV use, further dilute with an equal volume of saline. Do not exceed a rate of 2 mg/min. For IV use, further dilute with an equal volume of saline. Do not exceed a rate of 2 mg/min. Given 05/23/2024 8:06 PM RECORDS MANAGEMENT TECHNICIAN 0.5 mg magnesium oxide (MAG-OX) tablet 400 mg 400 mg, Oral, 2 times daily, First dose on Thu05/19/24 at 1400, Until Discontinued Given 05/25/2024 8:10 AM RECORDS MANAGEMENT TECHNICIAN 400 mg Given 05/24/2024 8:39 PM RECORDS MANAGEMENT TECHNICIAN 400 mg Given 05/24/2024 8:26 AM RECORDS MANAGEMENT TECHNICIAN 400 mg magnesium sulfate IVPB 2 g 2 g, Intravenous, at 25 mL/hr, Once, 1 dose, On Thu05/17/24 at 1230 New Bag 05/17/2024 12:06 PM RECORDS MANAGEMENT TECHNICIAN 2 g 25 mL/hr magnesium sulfate IVPB 2 g 2 g, Intravenous, at 25 mL/hr, Once, 1 dose, On Thu05/21/24 at 0930 New Bag 05/21/2024 10:28 AM RECORDS MANAGEMENT TECHNICIAN 2 g 25 mL/hr OLANZapine (ZyPREXA) injection 2.5 mg 2.5 mg, Intramuscular, Once, 1 dose, On Thu05/19/24 at 2230, Reconstitute with 2.1 mL Sterile Water for Injection to obtain a final concentration of 5 mg/mL. Given 05/19/2024 10:19 PM RECORDS MANAGEMENT TECHNICIAN 2.5 mg Left Anterior Thigh perflutren lipid microsphere (DEFINITY) injection 2 mL 2 mL, Intravenous, IMG once as needed, Contrast, 1 dose, Starting on Thu05/20/24 at 1433, Until Thu05/20/24 at 1434, Administer over 30-60 seconds. Follow with 10 mL saline flush. Given 05/20/2024 2:34 PM RECORDS MANAGEMENT TECHNICIAN 2 mLs potassium chloride CR (K-TAB) tablet 40 mEq 40 mEq, Oral, Once, 1 dose, On Thu05/19/24 at 1400, Do not break, chew, or crush. Given 05/19/2024 4:33 PM RECORDS MANAGEMENT TECHNICIAN 40 mEq vancomycin (VANCOCIN) 1,250 mg in sodium chloride 0.9 % 250 mL IVPB 1,250 mg, Intravenous, at 175 mL/hr, Every 12 hours, First dose (after last modification) on Thu05/19/24 at 0800, Until Discontinued New Bag 05/20/2024 9:11 AM RECORDS MANAGEMENT TECHNICIAN 1,250 mg 175 mL/hr New Bag 05/19/2024 9:42 PM RECORDS MANAGEMENT TECHNICIAN 1,250 mg 175 mL/hr Restarted 05/19/2024 9:09 AM RECORDS MANAGEMENT TECHNICIAN 175 mL/hr vancomycin (VANCOCIN) 1,500 mg in sodium chloride 0.9 % 250 mL IVPB 1,500 mg, Intravenous, at 132.5 mL/hr, Every 18 hours, First dose on Thu05/17/24 at 2000, Until Discontinued New Bag 05/18/2024 2:49 PM RECORDS MANAGEMENT TECHNICIAN 1,500 mg 132.5 mL/hr New Bag 05/17/2024 9:24 PM RECORDS MANAGEMENT TECHNICIAN 1,500 mg 132.5 mL/hr vancomycin (VANCOCIN) 2,000 mg in dextrose 5 % 500 mL IVPB 2,000 mg, Intravenous, at 260 mL/hr, Once, 1 dose, On Thu05/17/24 at 0130 New Bag 05/17/2024 2:13 AM RECORDS MANAGEMENT TECHNICIAN 2,000 mg 260 mL/hr documented in this encounter Active and Recently Administered Medications Times are shown in RECORDS MANAGEMENT TECHNICIAN. Scheduled Medication Order 05/23/2024 05/24/2024 05/25/2024 apixaban (ELIQUIS) tablet 5 mg 5 mg, Oral, 2 times daily, Indications: Atrial Fibrillation, First dose on Thu05/20/24 at 1345, Until Discontinued 900 (Given - Provider: Tonya Gaona RN)2004 (Not Given - Provider: Cass Emerson RN - Reason: Patient/family declined) 825 (Given - Provider: Rubi Navarro RN)2038 (Given - Provider: Cass Emerson RN) 08 (Given - Provider: Tonya Gaona RN) carvedilol (COREG) tablet 6.25 mg 6.25 mg, Oral, 2 times daily, First dose on Thu05/20/24 at 0930, Until Discontinued, Hold if HR<60 900 (Given - Provider: Tonya Gaona RN)2004 (Not Given - Provider: Cass Emerson RN - Reason: Patient/family declined) 825 (Given - Provider: Rubi Navarro RN)2038 (Given - Provider: Cass Emerson RN) 08 (Given - Provider: Tonya Gaona RN) DAPTOmycin (CUBICIN) 600 mg in sodium chloride 0.9 % 100 mL IVPB 600 mg, Intravenous, at 200 mL/hr, Every 24 hours, 38 doses, First dose (after last modification) on Thu05/25/24 at 1030, Last dose on Thu07/01/24 at 1030 1014 (New Bag - Provider: Tonya Gaona RN)1124 (Infusion Stop Time - Provider: Tonya Gaona RN) DAPTOmycin (CUBICIN) 800 mg in sodium chloride 0.9 % 100 mL IVPB (CANCELED) 800 mg (rounded from 796 mg = 10 mg/kg ? 79.6 kg Adjusted weight), Intravenous, at 200 mL/hr, Every 24 hours, First dose on Thu05/20/24 at 1030, Until Discontinued 1121 (New Bag - Provider: Tonya Gaona RN)1205 (Infusion Stop Time - Provider: Tonya Gaona RN) 0827 (New Bag - Provider: Rubi Navarro RN)0918 (Infusion Stop Time - Provider: Rubi Navarro RN) dutasteride (AVODART) capsule 0.5 mg 0.5 mg, Oral, Daily, First dose on Thu05/17/24 at 1400, Until Discontinued, HAZARDOUS MEDICATION: wear single chemotherapy approved gloves. Do not cut, crush or open. 0901 (Given - Provider: Tonya Gaona RN) 08 (Given - Provider: Rubi Navarro RN) 0810 (Given - Provider: Tonya Gaona RN) furosemide (LASIX) tablet 40 mg 40 mg, Oral, Daily, First dose on Thu05/20/24 at 0930, Until Discontinued 09 (Given - Provider: Tonya Gaona RN) 0826 (Given - Provider: Rubi Navarro RN) 0810 (Given - Provider: Tonya Gaona RN) insulin lispro (HUMALOG/ADMELOG) injection 0-14 Units(Linked Group 1) 0-14 Units, Subcutaneous, 3 times daily before meals, First dose on Thu05/17/24 at 0700, Until Discontinued, Blood Glucose (SENSITIVE Dosing): [Less than 70:? Initiate Hypoglycemia Standing Orders] [71-140: 0 units] [141-180: 2 units] [181-220: 4 units] [221-260: 6 units] [261-300: 8 units] [301-350: 10 units] [351-400: 12 units] [Greater than 400: 14 units and Call Physician] 09 (Given - Provider: Tonya Gaona RN)1219 (Not Given - Provider: Tonya Gaona RN - Reason: NPO)1711 (Given - Provider: Tonya Gaona RN) 08 (Given - Provider: Rubi Navarro RN)1158 (Given - Provider: Rubi Navarro, JACOB)1643 (Not Given - Provider: Rubi Navarro RN - Reason: Order parameters not met) 08 (Given - Provider: Tonya Gaona RN)1229 (Given - Provider: Tonya Gaona RN)1600 (Canceled Entry - Provider: Automatic Discharge Provider - Comment: Automatically canceled at discontinue of medication order) insulin lispro (HUMALOG/ADMELOG) injection 0-7 Units(Linked Group 1) 0-7 Units, Subcutaneous, Nightly at bedtime, First dose on Thu05/16/24 at 2245, Until Discontinued, Blood Glucose (SENSITIVE Dosing): [Less than 70:? Initiate Hypoglycemia Standing Orders] [71-180: ? 0 units] [181-220:? 2 units] [221-260:? 3 units] [261-300:? 4 units] [301-350:? 5 units] [351-400:? 6 units] [Greater than 400:? 7 units and Call Physician] 2007 (Not Given - Provider: Cass Emerson RN - Reason: Order parameters not met - Comment: BGL 179) 2055 (Not Given - Provider: Cass Emerson RN - Reason: Order parameters not met - Comment: BGL 158) lisinopril (PRINIVIL) tablet 5 mg 5 mg, Oral, Daily, First dose on Thu05/20/24 at 0930, Until Discontinued 900 (Given - Provider: Tonya Gaona RN) 0826 (Given - Provider: Rubi Navarro RN) 0811 (Given - Provider: Tonya Gaona, JACOB) LORazepam (ATIVAN) injection 0.5 mg (COMPLETED) 0.5 mg, Intravenous, Once, 1 dose, On Thu05/23/24 at 2014, For IV use, further dilute with an equal volume of saline. Do not exceed a rate of 2 mg/min. For IV use, further dilute with an equal volume of saline. Do not exceed a rate of 2 mg/min. 2005 (Given - Provider: Cass Emerson RN) magnesium oxide (MAG-OX) tablet 400 mg 400 mg, Oral, 2 times daily, First dose on Romelia 05/19/24 at 1400, Until Discontinued 900 (Given - Provider: Tonya Gaona, JACOB)2004 (Not Given - Provider: Cass Emerson RN - Reason: Patient/family declined) 825 (Given - Provider: Rubi Navarro RN)2038 (Given - Provider: Cass Emerson RN) 08 (Given - Provider: Tonya Gaona, JACOB) PRN Medication Order 05/23/2024 05/24/2024 05/25/2024 acetaminophen (TYLENOL) tablet 650 mg 650 mg, Oral, Every 4 hours PRN, Mild pain (Scale 1 - 3), Headaches, Fever, Starting on Thu05/16/24 at 2118, Until Thu05/25/24 at 1732, Maximum dose of acetaminophen is 4000 mg from all sources in 24 hours. barium sulfate (E-Z PASTE) 60 % oral cream (COMPLETED) Oral, IMG once as needed, Contrast, 1 dose, Starting on Thu05/24/24 at 1347, Until Thu05/24/24 at 1348 1348 (Given - Provider: Carlo Chandler, RTR) barium sulfate (E-Z-PAQUE) 96 % suspension 176 g (COMPLETED) 176 g, Oral, IMG once as needed, Contrast, 1 dose, Starting on Thu05/24/24 at 1347, Until Thu05/24/24 at 1348 1348 (Given - Provider: Carlo Chandler, RTR) gxptcujpm-nxoeffpp-cqlhxydleyx (MYLANTA MAXIMUM STRENGTH) 3436-2825-076 mg/30mL suspension 10 mL, Oral, Every 4 hours PRN, Indigestion, Heartburn, Starting on Thu05/16/24 at 2118, Until Thu05/25/24 at 1732, Shake Well ondansetron (ZOFRAN) injection 4 mg 4 mg, Intravenous, Every 8 hours PRN, Nausea, Vomiting, Starting on Thu05/16/24 at 2118, Until Thu05/25/24 at 1732, IV push over 2-5 minutes. polyethylene glycol (GLYCOLAX) packet 17 g 17 g, Oral, Daily as needed, Constipation, Starting on Thu05/16/24 at 2118, Until Thu05/25/24 at 1732, If both senna and polyethylene glycol are ordered, use 1st; if no response by next dosing interval, go to next option. Linked Groups Order Group 1: insulin lispro (HUMALOG/ADMELOG) injection 0-14 UnitsJump to med 0-14 Units, Subcutaneous, 3 times daily before meals, First dose on Thu05/17/24 at 0700, Until Discontinued, Blood Glucose (SENSITIVE Dosing): [Less than 70:? Initiate Hypoglycemia Standing Orders] [71-140: 0 units] [141-180: 2 units] [181-220: 4 units] [221-260: 6 units] [261-300: 8 units] [301-350: 10 units] [351-400: 12 units] [Greater than 400: 14 units and Call Physician] And insulin lispro (HUMALOG/ADMELOG) injection 0-7 UnitsJump to med 0-7 Units, Subcutaneous, Nightly at bedtime, First dose on Thu05/16/24 at 2245, Until Discontinued, Blood Glucose (SENSITIVE Dosing): [Less than 70:? Initiate Hypoglycemia Standing Orders] [71-180: ? 0 units] [181-220:? 2 units] [221-260:? 3 units] [261-300:? 4 units] [301-350:? 5 units] [351- 400:? 6 units] [Greater than 400:? 7 units and Call Physician] documented in this encounter Care Teams Director Of Health Education Relationship Specialty Start Date End Date Abdon Mendoza MD [address] [place] [address] PCP - General FAMILY PRACTICE 12/17/15 Madan Palomo MD [address] [place] [address] EP Radiology Practitioner Assistant CLINICAL CARDIAC ELECTROPHYSIOLOGY 10/08/21 Norma Rowland PA-C [address] [place] [address] Referring Physician PHYSICIAN TESTING ANALYST 12/31/23 documented as of this encounter
--- OUTSIDE RECORDS SUMMARY | 2024-06-08 06:07 | XMS_ITS | Encounter Summary ---
Author Organization [facility] Address [facility] [facility] [place] [address] [place] [address] Care Team Providers Care Scheduling Agent Name Role Phone Abdon Villela MD Primary Care Provider [phone] Madan Palomo MD Unavailable [phone] Norma Rowland PA-C Unavailable [phone] Encounter Details Date Type Department Care Team (Latest Contact Info) Description 06/01/2024 Travel Social History Tobacco Use Types Packs/Day Years Used Date Smoking Tobacco: Former Cigarettes 1 29.6 0 02/14/1966 - 10/07/1995 Pipe Smokeless Tobacco: Never Alcohol Use Standard Drinks/Week Comments No 0 (1 standard drink = 0.6 oz pur e alcohol) [facility] Utilities Answer Date Recorded In the past 12 months has [facility] [employer], gas, oil, or water [employer] threatened to shut off services in your [...] Never 07/27/2023 How often do you attend mandaeism or methodist serv ices? Never 07/27/2023 Do you belong to any clubs o r organizations such as mandaeism groups, unions, fraternal or athletic groups, or [...] and heating? Not hard at all 05/17/2024 [facility] - Occupational Stress Questionnaire Answer [...] place to sleep or slept in a fdc (including now)? No 07/27/2023 Housing Stability Vital Sign Answer Malik e Recorded In the last 12 months, was t here a time when you were not able to pay the mortgage or rent on time? No 05/17/2024 In the past 12 months, how m any times have you moved where you were living? 0 05/17/2024 At any time in the past 12 m [facility], were you homeless or living in a fdc (including now)? No 05/17/2024 Sex and Gender [...] Assessment Author Status Yes 05/17/2024 3:11 AM WINDOW ASSEMBLER Hector Buchanan RN Active documented as of this encounter Mental Status * Because of a physical, mental, or emotional condition, do you have serious difficulty concentrating, remembering, or making decisions? Answer Entry Date Author Status Yes 05/17/2024 3:11 AM WINDOW ASSEMBLER Hector Buchanan RN Active documented in this encounter Plan of Treatment Upcoming Encounters Date Type Department Care Team (Latest Contact Info) Description 06/09/2024 2:20 PM WINDOW ASSEMBLER Telemedicine [facility] Medical Group Multispecialty [facility] [address] [place] [address] Earnest Drake MD [address] [place], [place] [id number] 06/21/2024 1:30 AM WINDOW ASSEMBLER Allied Health/Nurse Visit [facility] [address] [place] [address] Madan Palomo MD [address] [place] [address] 03/01/2025 11:00 AM CDT Allied Health/Nurse Visit [facility] [address] [place] [address] Norma Rowland PA-C [address] [place] [address] 03/01/2025 11:00 AM CDT Office Visit [facility] [place] [address] Norma Rowland PA-C [address] [place] [address] documented as of this encounter Visit Diagnoses Not on filedocumented in this encounter Care Teams Scheduling Agent Relationship Specialty Start Date End Date Abdon Villela MD [address] [facility] [place] [address] PCP - General FAMILY PRACTICE 12/17/15 Madan Palomo MD [address] [place] [address] EP Air Drill Operator CLINICAL CARDIAC ELECTROPHYSIOLOGY 10/08/21 Norma Rowland PA-C [address] [place] [address] Referring Physician PHYSICIAN APPLIANCE MECHANIC 12/31/23 documented as of this encounter
--- OUTSIDE RECORDS SUMMARY | 2024-06-08 06:08 | XMS_ITS | Encounter Summary ---
Author Organization [facility] Address [facility] [place] [address] [place] [address] Care Team Providers Care Toe Former Stitchdowns Name Role Phone Abdon Villela MD Primary Care Provider [phone] Madan Palomo MD Unavailable [phone] Norma Rowland PA-C Unavailable [phone] Encounter Details Date Type Department Care Team (Latest Contact Info) Description 05/09/2024 Travel Social History Tobacco Use Types Packs/Day Years Used Date Smoking Tobacco: Former Cigarettes 1 29.6 0 02/14/1966 - 10/07/1995 Pipe Smokeless Tobacco: Never Alcohol Use Standard Drinks/Week Comments No 0 (1 standard drink = 0.6 oz pur e alcohol) [place] Utilities Answer Date Recorded In the past 12 months has [facility] [employer], gas, oil, or water [employer] threatened to shut off services in your home? No 07/27/2023 Humiliation, Afraid, Rape, and Kick questionnair e Answer Date Recorded Within the last year, have y ou been afraid of your partner or ex-partner? No 07/27/2023 Within the last year, have y ou been humiliated or emotionally abused in other ways by your partner or ex-partner? No Within the last year, have y ou been kicked, hit, slapped, or otherwise physically hurt by your partner or ex-partner? No 07/27/2023 Within the last year, have y ou been raped or forced to have any kind of sexual activity by your partner or ex-partner? No 07/27/2023 Social Connection and Isolation Panel [NHANES] A nswer Date Recorded In a typical week, how many times do you talk on the phone with family, friends, or neighbors? Never 07/27/2023 How often do you get together with friends or re latives? Never 07/27/2023 How often do you attend anabaptism or holiness serv ices? Never 07/27/2023 Do you belong to any clubs o r organizations such as anabaptism groups, unions, fraternal or athletic groups, or [...] care, and heating? Not hard at all 07/27/2023 [facility] - Occupational Stress Questionnaire Answer [...] the money to buy more. Never true 07/27/19 24 Within the past 12 months, t he food you bought just didn't last and you didn't have money to get more. Never true 07/27/2023 PRAPARE - Transportation Answer Date Re corded In the past 12 months, has l ack of transportation kept you from medical appointments or from getting medications? No 10/2023 In the past 12 months, has l ack of transportation kept you from meetings, work, or from getting things needed for daily living? No 07/27/2023 Housing Stability Vital Sign Answer [...] place to sleep or slept in a assisted (including now)? No 07/27/2023 Sex and Gender Information Value Date Recorded [...] Assessment Author Status No 07/27/2023 10:44 AM FILTER TENDER JELLY Zamzam Zavala R N Active * Are you blind or do you have serious difficulty seeing, even when wearing glasses? Answer Date of Assessment Author Status No 07/27/2023 10:44 AM FILTER TENDER JELLY Zamzam Zavala R N Active * Do you have serious difficulty walking or climbing stairs? Answer Date of Assessment Author Status Yes 07/27/2023 10:44 AM FILTER TENDER JELLY Olga Zavalayl A R N Active * Do you have difficulty dressing or bathing? Answer Date of Assessment Author Status Yes 07/27/2023 10:44 AM FILTER TENDER JELLY Olga Zavalayl Hayley R N Active * Because of a physical, mental, or emotional condition, do you have difficulty doing errands alone such as visiting a doctor's office or shopping? Answer Date of Assessment Author Status Yes 07/27/2023 10:44 AM FILTER TENDER JELLY Zamzam Zavala R N Active documented as of this encounter Mental Status * Because of a physical, mental, or emotional condition, do you have serious difficulty concentrating, remembering, or making decisions? Answer Entry Date Author Status No 07/27/2023 10:44 AM FILTER TENDER JELLY Zamzam Zavala R N Active documented in this encounter Plan of Treatment Upcoming Encounters Date Type Department Care Team (Latest Contact Info) Description 06/09/2024 2:20 PM FILTER TENDER JELLY Telemedicine [facility] Medical Group [facility] [address] [place] [address] Earnest Drake MD [address] [place], [place] [phone] 06/21/2024 1:30 AM FILTER TENDER JELLY Allied Health/Nurse Visit [facility] [address] [place] [id number] Madan Palomo MD [address] [place], [place] [address] 03/01/2025 11:00 AM CDT Allied Health/Nurse Visit [facility] [address] [place] [address] Norma Rowland PA-C [address] [place], [place] [address] 03/01/2025 11:00 AM CDT Office Visit [facility] [address] [place] [address] Norma Rowland PA-C [address] [place], [place] [phone] documented as of this encounter Visit Diagnoses Not on filedocumented in this encounter Care Teams Toe Former Stitchdowns Relationship Specialty Start Date End Date Abdon Villela MD [address] [place] [address] PCP - General FAMILY PRACTICE 12/17/15 Madan Palomo MD [address] [place] [address] EP Data Conversion Operator CLINICAL CARDIAC ELECTROPHYSIOLOGY 10/08/21 Norma Rowland PA-C [address] [place] [address] Referring Physician PHYSICIAN PROMOTIONS PRODUCER 12/31/23 documented as of this encounter
--- OUTSIDE RECORDS SUMMARY | 2024-06-08 06:08 | XMS_ITS | Encounter Summary ---
Author Organization [facility] Address [facility] [place] [address] [place] [address] Care Team Providers Care Leather Lacer Name Role Phone Abdon Villela MD Primary Care Provider [phone] Madan Palomo MD Unavailable [phone] Norma Rowland PA-C Unavailable [phone] Reason for Visit * Reason Onset Date Comments Appointment Reminder 03/03/2024 Encounter Details Date Type Department Care Team (Late st Contact Info) Description 03/03/2024 Telephone [facility] [address] [place] [address] Madan Palomo MD [address] [place] [address] Appointment Reminder Social History Tobacco Use Types Packs/Day Years Used Date Smoking Tobacco: Former Cigarettes 1 29.6 0 02/14/1966 - 10/07/1995 Pipe Smokeless Tobacco: Never Alcohol Use Standard Drinks/Week Comments No 0 (1 standard drink = 0.6 oz pur e alcohol) [facility] Utilities Answer Date Recorded In the [...] Never 07/27/2023 How often do you attend sikh or baptism serv ices? Never 07/27/2023 Do you belong to any clubs o r organizations such as sikh groups, unions, fraternal or athletic groups, or [...] and heating? Not hard at all 07/27/2023 [facility] of Occupat ional Health - Occupational Stress [...] place to sleep or slept in a penitentiary (including now)? No 07/27/2023 Sex and Gender [...] Assessment Author Status No 07/27/2023 10:44 AM Zamzam King R N Active * Are you blind or do you have serious difficulty seeing, even when wearing glasses? Answer Date of Assessment Author Status No 07/27/2023 10:44 AM DOCUMENTATION SUPERVISOR Olga Zavalayl A, R N Active * Do you have serious difficulty walking or climbing stairs? Answer Date of Assessment Author Status Yes 07/27/2023 10:44 AM DOCUMENTATION SUPERVISOR Olga Zavalayl A R N Active * Do you have difficulty dressing or bathing? Answer Date of Assessment Author Status Yes 07/27/2023 10:44 AM DOCUMENTATION SUPERVISOR Zamzam Zavala A, R N Active * Because of a physical, mental, or emotional condition, do you have difficulty doing errands alone such as visiting a doctor's office or shopping? Answer Date of Assessment Author Status Yes 07/27/2023 10:44 AM DOCUMENTATION SUPERVISOR Zamzam Zavala R N Active documented as of this encounter Mental Status * Because of a physical, mental, or emotional condition, do you have serious difficulty concentrating, remembering, or making decisions? Answer Entry Date Author Status No 07/27/2023 10:44 AM DOCUMENTATION SUPERVISOR Zamzam Zavala R N Active documented in this encounter Progress Notes * Leticia Mitchell - 03/03/2024 12:33 PM CDT 1yr f/u appt with device r/s to 03/01/25. Letter mailed. documented in this encounter Plan of Treatment Upcoming Encounters Date Type Department Care Team (Latest Contact Info) Description 06/09/2024 2:20 PM DOCUMENTATION SUPERVISOR Telemedicine [facility] Medical Group Multispecialty [facility] [address] [place] [address] Earnest Drake MD [address] [place] [address] 06/21/2024 1:30 AM DOCUMENTATION SUPERVISOR Allied Health/Nurse Visit [facility] [address] [place] [address] Madan Palomo MD [address] [place], [place] [address] 03/01/2025 11:00 AM CDT Allied Health/Nurse Visit [facility] [address] [place] [address] Norma Rowland PA-C [address] [place], [place] [address] 03/01/2025 11:00 AM CDT Office Visit [facility] [place] [address] Norma Rowland PA-C [address] [place] [address] documented as of this encounter Visit Diagnoses Not on filedocumented in this encounter Care Teams Leather Lacer Relationship Specialty Start Date End Date Abdon Villela MD [address] [facility] [place] [address] PCP - General FAMILY PRACTICE 12/17/15 Madan Palomo MD [address] [place] [address] EP Computer Systems Analyst CLINICAL CARDIAC ELECTROPHYSIOLOGY 10/08/21 Norma Rowland PA-C [address] [place] [address] Referring Physician PHYSICIAN VETERINARY TECHNOLOGIST 12/31/23 documented as of this encounter
--- OUTSIDE RECORDS SUMMARY | 2024-06-08 06:08 | XMS_ITS | Encounter Summary ---
Author Organization [facility] Address [facility] [place] [address] [place] [address] Care Team Providers Care Surgical Scheduler Name Role Phone Abdon Villela MD Primary Care Provider [phone] Pernell Vance MD Unavailable UnavailKamilla Lazaro NP Unavailable Unavailable Madan Palomo MD Unavailable [phone] Encounter Details Date Type Department Care Team (Latest Contact Info) Description 12/08/2023 9:12 AM CDT - 12/08/2023 11:59 PM CDT Hospital Encounter [facility] [address] [facility] [place] [address] [place] [address] [place] [address] Discharge Disposition: Home or Self Care (Routine Discharge) Social History Tobacco Use Types Packs/Day Years Used Date Smoking Tobacco: Former Cigarettes 1 29.6 0 02/14/1966 - 10/07/1995 Pipe Smokeless Tobacco: Never Alcohol Use Standard Drinks/Week Comments No 0 (1 standard drink = 0.6 oz pur e alcohol) [facility] Utilities Answer Date Recorded In [...] Never 07/27/2023 How often do you attend pentecostalism or rastafari serv ices? Never 07/27/2023 Do you belong to any clubs o r organizations such as pentecostalism groups, unions, fraternal or athletic groups, or [...] and heating? Not hard at all 07/27/2023 [facility] of Occupat ional Health - Occupational Stress [...] in a chcf (including now)? No 07/27/2023 Sex and Gender [...] Assessment Author Status No 07/27/2023 10:44 AM WOOD FENCE INSTALLER Zamzam Zavala R N Active * Do you have serious difficulty walking or climbing stairs? Answer Date of Assessment Author Status Yes 07/27/2023 10:44 AM WOOD FENCE INSTALLER Zamzam Zavala R N Active * Do you have difficulty dressing or bathing? Answer Date of Assessment Author Status Yes 07/27/2023 10:44 AM WOOD FENCE INSTALLER Zamzam Zavala R N Active * Because of a physical, mental, or emotional condition, do you have difficulty doing errands alone such as visiting a doctor's office or shopping? Answer Date of Assessment Author Status Yes 07/27/2023 10:44 AM Zamzam King R N Active documented as of this encounter Mental Status * Because of a physical, mental, or emotional condition, do you have serious difficulty concentrating, remembering, or making decisions? Answer Entry Date Author Status No 07/27/2023 10:44 AM Zamzam King R N Active documented in this encounter Medications at Time of Discharge acetaminophen (TYLENOL) 500 MG tablet Take 2 tablets (1,000 mg total) by mouth every 6 (six) hours as needed for Pain. apixaban (ELIQUIS) 5 MG tablet Take 1 tablet (5 mg total) by mouth 2 (two) times daily. 60 tablet 5 09/19/2022 ferrous sulfate EC 325 (65 Fe) MG tablet Take 1 tablet by mouth daily. furosemide (LASIX) 40 MG tablet Take 1 tablet (40 mg total) by mouth daily. 30 tablet 08/01/2023 metFORMIN 1000 MG tablet Take 1 tablet [...] total) by mouth daily. 60 tablet 08/01/2023 atorvastatin (LIPITOR) 80 MG tablet Take 1 tablet (80 mg total) by mouth nightly at bedtime. 05/25/2024 carvedilol (COREG) 6.25 MG tablet Take 1 tablet (6.25 mg total) by mouth 2 (two) times daily. 60 tablet 07/31/2023 12/30/2023 lisinopril (PRINIVIL) 10 MG tablet Take 1 tablet (10 mg total) by mouth daily. 12/08/2023 03/02/2024 lisinopril (PRINIVIL) 40 MG tablet Take 10 mg by mouth daily. 12/30/2023 loperamide (IMODIUM) 2 MG capsule Take 1 capsule (2 mg total) by mouth 4 (four) times daily as needed for Diarrhea. 12/09/2023 magnesium oxide 400 (241.3 Mg) MG tablet Take 1 tablet (400 mg total) by mouth daily. 05/25/2024 tamsulosin (FLOMAX) 0.4 MG Cap Take 1 capsule (0.4 mg total) by mouth daily. 30 capsule 11/27/2023 03/02/2024 vitamin B-12 1000 MCG tablet Take 1 tablet (1,000 mcg total) by mouth daily. 03/02/2024 documented as of this encounter Plan of Treatment Upcoming Encounters Date Type Department Care Team (Latest Contact Info) Description 06/09/2024 2:20 PM WOOD FENCE INSTALLER Telemedicine [facility] Medical Group Multispecialty [facility] [address] [place] [phone] Earnest Drake MD [address] [place], [place] [phone] 06/21/2024 1:30 AM WOOD FENCE INSTALLER Allied Health/Nurse Visit [facility] [address] [place] [address] Madan Palomo MD [address] [place] [address] 03/01/2025 11:00 AM CDT Allied Health/Nurse Visit [place] [address] [place] [address] Norma Rowland PA-C [address] [place] [address] 03/01/2025 11:00 AM CDT Office Visit [place] [address] [place] [address] Norma Rowland PA-C [address] [place] [address] documented as of this encounter Procedures Procedure Name Priority Date/Time Associated Diagnosis Comments PROSTATE SPECIFIC ANTIGEN,TOTAL Routine 12/08/2023 9:20 AM CDT Retention of urine Benign prostatic hyperplasia with lower urinary tract symptoms, symptom details unspecified BASIC METABOLIC PANEL Routine 12/08/2023 9:20 AM CDT Retention of urine Benign prostatic hyperplasia with lower urinary tract symptoms, symptom details unspecified documented in this encounter Results * (ABNORMAL) PROSTATE SPECIFIC ANTIGEN, DIAG (12/08/2023 9:20 AM CDT) PSA 6.64(H) <4.00 NG/ML 12/08/2023 9:50 AM CDT [facility] Comment: ASSAY PERFORMED BY ENZYME IMMUNOASSAY METHODOLOGY USING OTOY DIMENSION REAGENT. PATIENT RESULTS DETERMINED BY ASSAYS FROM DIFFERENT MANUFACTURERS AND/OR BY DIFFERENT METHODS MAY NOT BE COMPARABLE. 12/08/2023 9:20 AM CDT Yanna Hastings III, MD LABORATORY Final Re sult [facility] [address] [place] [address], * (ABNORMAL) BASIC METABOLIC PANEL (12/08/2023 9:20 AM CDT) SODIUM S/P/B 136 136 - 145 MMOL/L 12/08/2023 9:50 AM CDT [facility] POTASSIUM S/P/B 5.0 3.5 - 5.1 MMOL/L 12/08/2023 9:50 AM CDT [facility] CHLORIDE S/P/B 99 98 - 107 MMOL/L 12/08/2023 9:50 AM CDT [facility] CO2 30.3 21.0 - 32.0 MMOL/L 12/08/2023 9:50 AM CDT [facility] GLUCOSE 198(H) 70 - 99 MG/DL 12/08/2023 9:50 AM CDT [facility] Comment: FASTING GLUCOSE 100 TO 125 MG/DL IS CONSISTENT WITH IMPAIRED FASTING GLUCOSE. FASTING GLUCOSE >125 MG/DL IS CONSISTENT WITH DIABETES. RANDOM GLUCOSE >200 MG/DL WITH HYPERGLYCEMIC SYMPTOMS IS CONSISTENT WITH DIABETES. PER ADA GUIDELINES BUN 31(H) 6 - 24 MG/DL 12/08/2023 9:50 AM CDT [facility] CREATININE S/P/B 1.02 0.70 - 1.30 MG/DL 12/08/2023 9:50 AM CDT [facility] CALCIUM S/P/B 9.3 8.4 - 10.5 MG/DL 12/08/2023 9:50 AM CDT [facility] ANION GAP 6.7 5.0 - 15.0 MMOL/L 12/08/2023 9:50 AM CDT [facility] OSMOLALITY (CALC) 294 MOSM/KG 024 9:50 AM CDT [facility] Comment:REFERENCE RANGE NOT ESTABLISHED GFR ESTIMATE 75(L) >89 ML/MIN/1. 73 M2 12/08/2023 9:50 AM CDT [facility] GFR NOTES GFR REFERENCE S: 12/08/2023 9:50 AM CDT [facility] Comment: THE ESTIMATED GFR IS [...] ml/min/1.73 m2 G5,KIDNEY FAILURE: <15 ml/min/1.73 m2 12/08/2023 9:20 AM CDT us Yanna Hastings III, MD LABORATORY Final Re sult [facility] [address] [place] [address], documented in this encounter Visit Diagnoses Diagnosis Retention of urine Retention of urine, unspecified Benign prostatic hyperplasia with lower urinary tract symptoms, symptom details unspecified documented in this encounter Care Teams Surgical Scheduler Relationship Specialty Start Date End Date Abdon Villela MD [address] [place] [address] PCP - General FAMILY PRACTICE 12/17/15 Pernell Vance MD [address] [place] [address] Consulting Physician CARDIOVASCULAR DISEASE 07/05/1901/30 [place] [address] Referring Physician Nurse Practitioner [facility] 10/08/2104/14 Madan Palomo MD [address] [place] [address] EP Electromechanical Assembler CLINICAL CARDIAC ELECTROPHYSIOLOGY 10/08/21 documented as of this encounter
--- OUTSIDE RECORDS SUMMARY | 2024-06-08 06:08 | XMS_ITS | Encounter Summary ---
Author Organization [facility] Address [facility] [place] [address] [place] [address] Care Team Providers Care Manager Dish Name Role Phone Abdon Villela MD Primary Care Provider [phone] Madan Palomo MD Unavailable [phone] Norma Rowland PA-C Unavailable [phone] Encounter Details Date Type Department Care Team (Late st Contact Info) Description 04/03/2024 Orders Only [facility] [address] [place] [address] Chris Oliva MD [address] [place] [address] Social History Tobacco Use Types Packs/Day Years Used Date Smoking Tobacco: Former Cigarettes 1 29.6 0 02/14/1966 - 10/07/1995 Pipe Smokeless Tobacco: Never Alcohol Use Standard Drinks/Week Comments No 0 (1 standard drink = 0.6 oz pur e alcohol) [facility] Utilities Answer Date Recorded In [...] Never 07/27/2023 How often do you attend adventist or oriental orthodox serv ices? Never 07/27/2023 Do you belong to any clubs o r organizations such as adventist groups, unions, fraternal or athletic groups, or [...] and heating? Not hard at all 07/27/2023 [facility] [place] of Occupat ional Health - Occupational Stress [...] health care facility (including now)? No 07/27/2023 Sex and Gender [...] Assessment Author Status No 07/27/2023 10:44 AM ILLUMINATOR Zamzam Zavala R N Active * Are you blind or do you have serious difficulty seeing, even when wearing glasses? Answer Date of Assessment Author Status No 07/27/2023 10:44 AM ILLUMINATOR Zamzam Zavala R N Active * Do you have serious difficulty walking or climbing stairs? Answer Date of Assessment Author Status Yes 07/27/2023 10:44 AM ILLUMINATOR Zamzam Zavala R N Active * Do you have difficulty dressing or bathing? Answer Date of Assessment Author Status Yes 07/27/2023 10:44 AM ILLUMINATOR Zamzam Zavala R N Active * Because of a physical, mental, or emotional condition, do you have difficulty doing errands alone such as visiting a doctor's office or shopping? Answer Date of Assessment Author Status Yes 07/27/2023 10:44 AM ILLUMINATOR Zamzam Zavala R N Active documented as of this encounter Mental Status * Because of a physical, mental, or emotional condition, do you have serious difficulty concentrating, remembering, or making decisions? Answer Entry Date Author Status No 07/27/2023 10:44 AM ILLUMINATOR Zamzam Zavala R N Active documented in this encounter Plan of Treatment Upcoming Encounters Date Type Department Care Team (Latest Contact Info) Description 06/09/2024 2:20 PM ILLUMINATOR Telemedicine [facility] Medical Group Multispecialty [facility] [address] [place] [phone] Earnest Drake MD [address] [place] [address] 06/21/2024 1:30 AM ILLUMINATOR Allied Health/Nurse Visit [facility] [address] [place] [address] Madan Palomo MD [address] [place] [address] 03/01/2025 11:00 AM CDT Allied Health/Nurse Visit [facility] [place] [address] [place] [address] Norma Rowland PA-C [address] [place] [address] 03/01/2025 11:00 AM CDT Office Visit [facility] [place] [address] [place] [address] Norma Rowland PA-C [address] [place], [place] [phone] documented as of this encounter Results * OCCULT BLOOD, FECES, DIAGNOSTIC (04/03/2024 9:30 AM CDT) OCCULT BLOOD FECAL NEGATIVE NEGATIVE 04/03/2024 10:42 AM CDT [facility] STOOL SPECIMEN / Unknown 04/03/2024 9:30 AM CDT us Chris Oliva MD BODY FLUIDS AND STOOLS TU CARPIO Final Result [facility] [address] [place] [address], documented in this encounter Visit Diagnoses Diagnosis Anemia- Primary Anemia, unspecified documented in this encounter Care Teams Manager Dish Relationship Specialty Start Date End Date Abdon Villela MD [address] [place] [address] PCP - General FAMILY PRACTICE 12/17/15 Madan Palomo MD [address] [place] [address] EP Manager Intern CLINICAL CARDIAC ELECTROPHYSIOLOGY 10/08/21 Norma Rowland PA-C [address] [place], [place] [address] Referring Physician PHYSICIAN NUCLEAR MEDICINE CHIEF TECHNOLOGIST 12/31/23 documented as of this encounter
--- OUTSIDE RECORDS SUMMARY | 2024-06-08 06:08 | XMS_ITS | Encounter Summary ---
Author Organization [facility] Address [facility]6 [facility] [place] [address] [place] [address] Care Team Providers Care Loader Magazine Grinder Name Role Phone Abdon Villela MD Primary Care Provider [phone] Pernell Vance MD Unavailable Unavailabl e Madan Palomo MD Unavailable [phone] Norma Rowland PA-C Unavailable [phone] Reason for Visit * Reason Onset Date Comments Reschedule 01/05/2024 Encounter Details Date Type Department Care Team (Late st Contact Info) Description 01/05/2024 [facility]phone [facility] [address] [place] [address] Madan Palomo MD [address] [place] [address] Reschedule Social History Tobacco Use Types Packs/Day Years Used Date Smoking Tobacco: Former Cigarettes 1 29.6 0 02/14/1966 - 10/07/1995 Pipe Smokeless Tobacco: Never Alcohol Use Standard Drinks/Week Comments No 0 (1 standard drink = 0.6 oz pur e alcohol) [facility] Utilities Answer Date Recorded In the past [...] Never 07/27/2023 How often do you attend taoist or hoahaoism serv ices? Never 07/27/2023 Do you belong to any clubs o r organizations such as taoist groups, unions, fraternal or athletic groups, or [...] and heating? Not hard at all 07/27/2023 [facility] [place] of Occupat ional Health - Occupational Stress [...] in a fci (including now)? No 07/27/2023 Sex and Gender [...] Assessment Author Status No 07/27/2023 10:44 AM MARKETING ANALYTICS SPECIALIST Zamzam Zavala R N Active * Are you blind or do you have serious difficulty seeing, even when wearing glasses? Answer Date of Assessment Author Status No 07/27/2023 10:44 AM MARKETING ANALYTICS SPECIALIST Apke Zamzam A R N Active * Do you have serious difficulty walking or climbing stairs? Answer Date of Assessment Author Status Yes 07/27/2023 10:44 AM MARKETING ANALYTICS SPECIALIST ApkeOlgayl A R N Active * Do you have difficulty dressing or bathing? Answer Date of Assessment Author Status Yes 07/27/2023 10:44 AM MARKETING ANALYTICS SPECIALIST Apke Zamzam A R N Active * Because of a physical, mental, or emotional condition, do you have difficulty doing errands alone such as visiting a doctor's office or shopping? Answer Date of Assessment Author Status Yes 07/27/2023 10:44 AM MARKETING ANALYTICS SPECIALIST Zamzam Zavala R N Active documented as of this encounter Mental Status * Because of a physical, mental, or emotional condition, do you have serious difficulty concentrating, remembering, or making decisions? Answer Entry Date Author Status No 07/27/2023 10:44 AM MARKETING ANALYTICS SPECIALIST Zamzam Zavala R N Active documented in this encounter Progress Notes * Leticia Mitchell - 01/05/2024 9:48 AM CDT I called patient and spoke with daughter sherri to r/s 01/13/24 appt with device. Appt with device r/s to 03/02/24. Letter mailed. documented in this encounter Plan of Treatment Upcoming Encounters Date Type Department Care Team (Latest Contact Info) Description 06/09/2024 2:20 PM MARKETING ANALYTICS SPECIALIST Telemedicine [facility] Medical Group Multispec[facility] [address] [place] [address] Earnest Drake MD [address] [place] [address] 06/21/2024 1:30 AM MARKETING ANALYTICS SPECIALIST [facility] [address] [place] [address] Madan Palomo MD [address] [place] [address] 03/01/2025 11:00 AM CDT Allied Health/Nurse Visit [facility] [address] [place] [address] Norma Rowland PA-C [address] [place] [address] 03/01/2025 11:00 AM CDT Office Visit [facility] [address] [place] [address] Norma Rowland PA-C [address] [place], [place] [address] documented as of this encounter Visit Diagnoses Not on filedocumented in this encounter Care Teams Loader Magazine Grinder Relationship Specialty Start Date End Date Abdon Villela MD [address] [place] [phone] PCP - General FAMILY PRACTICE 12/17/15 Pernell Vance MD [facility] [place] [address] Consulting Physician CARDIOVASCULAR DISEASE 07/05/1901/30 Madan Palomo MD [address] [place] [address] EP Rip Saw Operator CLINICAL CARDIAC ELECTROPHYSIOLOGY 10/08/21 Norma Rowland PA-C [address] [place], [place] [address] Referring Physician PHYSICIAN RADIOTELEGRAPHER 12/31/23 documented as of this encounter
--- OUTSIDE RECORDS SUMMARY | 2024-06-08 06:08 | XMS_ITS | Encounter Summary ---
Author Organization [facility] Address [facility] [place] [address] [place] [address] Care Team Providers Care Engine Repairer Production Name Role Phone Abdon Villela MD Primary Care Provider [phone] Pernell Vance MD Unavailable UnavailKamilla Lazaro NP Unavailable Unavailable Madan Palomo MD Unavailable [phone] Encounter Details Date Type Department Care Team (Latest Contact Info) Description 11/27/2023 Travel Social History Tobacco Use Types Packs/Day Years Used Date Smoking Tobacco: Former Cigarettes 1 29.6 0 02/14/1966 - 10/07/1995 Pipe Smokeless Tobacco: Never Alcohol Use Standard Drinks/Week Comments No 0 (1 standard drink = 0.6 oz pur e alcohol) [facility] Utilities Answer Date Recorded In the past 12 months has [facility] [employer], gas, oil, or water [employer] threatened to shut off services in your [...] Never 07/27/2023 How often do you attend hindu or congregation serv ices? Never 07/27/2023 Do you belong to any clubs o r organizations such as hindu groups, unions, fraternal or athletic groups, or [...] and heating? Not hard at all 07/27/2023 [facility] - Occupational Stress Questionnaire Answer Date [...] place to sleep or slept in a senior living (including now)? No 07/27/2023 Sex and Gender [...] Assessment Author Status No 07/27/2023 10:44 AM BOTTOM LOADER Zamzam Zavala R N Active * Are you blind or do you have serious difficulty seeing, even when wearing glasses? Answer Date of Assessment Author Status No 07/27/2023 10:44 AM BOTTOM LOADER Olga Zavalayl A R N Active * Do you have serious difficulty walking or climbing stairs? Answer Date of Assessment Author Status Yes 07/27/2023 10:44 AM BOTTOM LOADER Olga Zavalayl A R N Active * Do you have difficulty dressing or bathing? Answer Date of Assessment Author Status Yes 07/27/2023 10:44 AM BOTTOM LOADER ApkeOlgayl A R N Active * Because of a physical, mental, or emotional condition, do you have difficulty doing errands alone such as visiting a doctor's office or shopping? Answer Date of Assessment Author Status Yes 07/27/2023 10:44 AM BOTTOM LOADER BillkeZamzam R N Active documented as of this encounter Mental Status * Because of a physical, mental, or emotional condition, do you have serious difficulty concentrating, remembering, or making decisions? Answer Entry Date Author Status No 07/27/2023 10:44 AM BOTTOM LOADER Zamzam Zavala R N Active documented in this encounter Plan of Treatment Upcoming Encounters Date Type Department Care Team (Latest Contact Info) Description 06/09/2024 2:20 PM BOTTOM LOADER Telemedicine [facility] Medical Group [facility] [address] [place] [address] Earnest Drake MD [address] [place], [place] [phone] 06/21/2024 1:30 AM BOTTOM LOADER Allied Health/Nurse Visit [facility] [address] [place] [address] Madan Palomo MD [address] [place], [place] [address] 03/01/2025 11:00 AM CDT Allied Health/Nurse Visit [facility] [place] [address] [place] [address] Norma Rowland PA-C [address] [place], [place] [address] 03/01/2025 11:00 AM CDT Office Visit [facility] [place] [address] [place] [address] Norma Rowland PA-C [address] [place] [address] documented as of this encounter Visit Diagnoses Not on filedocumented in this encounter Care Teams Engine Repairer Production Relationship Specialty Start Date End Date Abdon Villela MD [address] [place] [phone] PCP - General FAMILY PRACTICE 12/17/15 Pernell Vance MD [address] [place] [address] Consulting Physician CARDIOVASCULAR DISEASE 07/05/1901/30 Kamilla Oliveira NP [address] [facility] [place] [address] Referring Physician Nurse Practitioner Family 10/08/2104/14 Madan Palomo MD [address] [place] [address] EP Warehouse Shift Supervisor CLINICAL CARDIAC ELECTROPHYSIOLOGY 10/08/21 documented as of this encounter
--- OUTSIDE RECORDS SUMMARY | 2024-06-08 06:08 | XMS_ITS | Encounter Summary ---
Author Organization [facility] Address [facility] [place] [address] [place] [address] Care Team Providers Care Supervisor Sample Preparation Name Role Phone Abdon Villela MD Primary Care Provider [phone] Pernell Vance MD Unavailable UnavailKamilla Lazaro NP Unavailable Unavailable Madan Palomo MD Unavailable [phone] Encounter Details Date Type Department Care Team (Latest Contact Info) Description 12/09/2023 Travel Social History Tobacco Use Types Packs/Day Years Used Date Smoking Tobacco: Former Cigarettes 1 29.6 0 02/14/1966 - 10/07/1995 Pipe Smokeless Tobacco: Never Alcohol Use Standard Drinks/Week Comments No 0 (1 standard drink = 0.6 oz pur e alcohol) [facility] Utilities Answer Date Recorded In the past 12 months has [facility] [employer], gas, oil, or water [employer] threatened to shut off services in your [...] Never 07/27/2023 How often do you attend latter day or pentecostalism serv ices? Never 07/27/2023 Do you belong to any clubs o r organizations such as latter day groups, unions, fraternal or athletic groups, or [...] and heating? Not hard at all 07/27/2023 [facility] - Occupational Stress Questionnaire Answer Date [...] Assessment Author Status No 07/27/2023 10:44 AM NURSES' ASSOCIATION COUNSELOR Zamzam Zavala R N Active * Are you blind or do you have serious difficulty seeing, even when wearing glasses? Answer Date of Assessment Author Status No 07/27/2023 10:44 AM NURSES' ASSOCIATION COUNSELOR Olga Zavalayl A R N Active * Do you have serious difficulty walking or climbing stairs? Answer Date of Assessment Author Status Yes 07/27/2023 10:44 AM NURSES' ASSOCIATION COUNSELOR Olga Zavalayl A R N Active * Do you have difficulty dressing or bathing? Answer Date of Assessment Author Status Yes 07/27/2023 10:44 AM NURSES' ASSOCIATION COUNSELOR ApkeOlgayl A R N Active * Because of a physical, mental, or emotional condition, do you have difficulty doing errands alone such as visiting a doctor's office or shopping? Answer Date of Assessment Author Status Yes 07/27/2023 10:44 AM NURSES' ASSOCIATION COUNSELOR BillkeZamzam R N Active documented as of this encounter Mental Status * Because of a physical, mental, or emotional condition, do you have serious difficulty concentrating, remembering, or making decisions? Answer Entry Date Author Status No 07/27/2023 10:44 AM NURSES' ASSOCIATION COUNSELOR Zamzam Zavala R N Active documented in this encounter Plan of Treatment Upcoming Encounters Date Type Department Care Team (Latest Contact Info) Description 06/09/2024 2:20 PM NURSES' ASSOCIATION COUNSELOR Telemedicine [facility] [address] [place] [address] Earnest Drake MD [address] [place], [place] [phone] 06/21/2024 1:30 AM NURSES' ASSOCIATION COUNSELOR Allied Health/Nurse Visit [facility] [address] [place] [address] Madan Palomo MD [address] [place], [place] [address] 03/01/2025 11:00 AM CDT Allied Health/Nurse Visit [facility] [place] [address] [place] [address] Norma Rowland PA-C [address] [place], [place] [address] 03/01/2025 11:00 AM CDT Office Visit [facility] [place] [address] [place] [address] Norma Rowland PA-C [address] [place] [phone] documented as of this encounter Visit Diagnoses Not on filedocumented in this encounter Care Teams Supervisor Sample Preparation Relationship Specialty Start Date End Date Abdon Villela MD [address] [place] [phone] PCP - General FAMILY PRACTICE 12/17/15 Pernell Vance MD [address] [place] [address] Consulting Physician CARDIOVASCULAR DISEASE 07/05/1901/30 Kamilla Oliveira NP [address] [facility] [place] [address] Referring Physician Nurse Practitioner Family 10/08/2104/14 Madan Palomo MD [address] [place] [address] EP Rn Imcu CLINICAL CARDIAC ELECTROPHYSIOLOGY 10/08/21 documented as of this encounter
--- OUTSIDE RECORDS SUMMARY | 2024-06-08 06:08 | XMS_ITS | Encounter Summary ---
Author Organization [facility] Address [address] [place] [address]. [place] [address] [place] [address] Care Team Providers Care Web Publisher Name Role Phone Abdon Villela MD Primary Care Provider [phone] Madan Palomo MD Unavailable [phone] Norma Rowland PA-C Unavailable [phone] Encounter Details Date Type Department Care Team (Late st Contact Info) Description 04/03/2024 10:36 AM CDT - 04/03/2024 11:59 PM [facility] Hospital Encounter [facility] [address] [place] [address] Chris Oliva MD [address] [place] [address] Discharge Disposition: Home or Self Care (Routine Discharge) Social History Tobacco Use Types Packs/Day Years Used Date Smoking Tobacco: Former Cigarettes 1 29.6 0 02/14/1966 - 10/07/1995 Pipe Smokeless Tobacco: Never Alcohol Use Standard Drinks/Week Comments No 0 (1 standard drink = 0.6 oz pur e alcohol) [facility] Utilities Answer Date Recorded In the [...] Never 07/27/2023 How often do you attend zoroastrianism or alevism serv ices? Never 07/27/2023 Do you belong to any clubs o r organizations such as zoroastrianism groups, unions, fraternal or athletic groups, or [...] and heating? Not hard at all 07/27/2023 [facility] of Occupat ional Health - [...] in a longterm (including now)? No 07/27/2023 Sex and Gender [...] Assessment Author Status No 07/27/2023 10:44 AM LINING MARKER Zamzam Zavala R N Active * Do you have serious difficulty walking or climbing stairs? Answer Date of Assessment Author Status Yes 07/27/2023 10:44 AM LINING MARKER Zamzam Zavala R N Active * Do you have difficulty dressing or bathing? Answer Date of Assessment Author Status Yes 07/27/2023 10:44 AM LINING MARKER Zamzam Zavala R N Active * Because [...] (two) times daily. 90 tablet 3 03/02/2024 ferrous sulfate EC 325 (65 Fe) MG [...] (four) times daily as needed for Diarrhea. metFORMIN 1000 MG tablet Take 1 tablet [...] total) by mouth nightly at bedtime. 05/25/2024 magnesium oxide 400 (241.3 Mg) MG tablet Take 1 tablet (400 mg total) by mouth daily. 05/25/2024 documented as of this encounter Plan of Treatment Upcoming Encounters Date Type Department Care Team (Latest Contact Info) Description 06/09/2024 2:20 PM LINING MARKER Telemedicine [facility] Multispecialty [facility] [address] [place] [address] Earnest Drake MD [address] [place], [place] [phone] 06/21/2024 1:30 AM LINING MARKER Allied Health/Nurse Visit [facility] [address] [place] [address] Madan Palomo MD [address] [place], [place] [address] 03/01/2025 11:00 AM CDT Allied Health/Nurse Visit [place] [address] [place] [address] Norma Rowland PA-C [address] [place], [place] [address] 000- 03/01/2025 11:00 AM CDT Office Visit [place] [address] [place] [address] Norma Rowland PA-C [address] [place], [place] [address] [phone] documented as of this encounter Procedures Procedure Name Priority Date/Time Associated Diagnosis Comments OCCULT BLOOD, FECES Routine 04/03/2024 9 :30 AM CDT Anemia documented in this encounter Results * OCCULT BLOOD, FECES, DIAGNOSTIC (04/03/2024 9:30 AM CDT) OCCULT BLOOD FECAL NEGATIVE NEGATIVE 04/03/2024 10:42 AM CDT [facility] STOOL SPECIMEN / Unknown 04/03/2024 9:30 AM CDT Chris Oliva MD BODY FLUIDS AND STOOLS TU CARPIO Final Result [facility] [address] [place] [address], documented in this encounter Visit Diagnoses Diagnosis Anemia Anemia, unspecified documented in this encounter Care Teams Web Publisher Relationship Specialty Start Date End Date Abdon Villela MD [address] [facility] [place] [phone] PCP - General FAMILY PRACTICE 12/17/15 Madan Palomo MD [address] [place] [address] EP Machinist First Class CLINICAL CARDIAC ELECTROPHYSIOLOGY 10/08/21 Norma Rowland PA-C [address] [place] [address] Referring Physician PHYSICIAN MANUFACTURING MANAGER 12/31/23 documented as of this encounter
--- OUTSIDE RECORDS SUMMARY | 2024-06-08 06:08 | XMS_ITS | Encounter Summary ---
Author Organization [facility] Address [address] [place] [address]. [place] [address] [place] [address] Care Team Providers Care Calcine Furnace Loader Name Role Phone Abdon Villela MD Primary Care Provider [phone] Pernell Vance MD Unavailable UnavailKamilla Lazaro NP Unavailable Unavailable Madan Palomo MD Unavailable [phone] Reason for Visit * Imaging (Routine) - Closed Specialty Diagnoses / Procedures Referred By Contac t Referred To Contact RADIOLOGY Diagnoses Abnormal bone xray Procedures NM BONE SCAN WHOLE BODY WO SPECT NM BONE SCAN 3 PHASE Mona Peterson MD [address] [place] [address] Phone: tel: fax: Referral ID Status Reason Start Date Expiration Date Visits Re quested Visits Authorized [id number] Closed 12/09/2023 12/08/2024 1 2 Encounter Details Date Type Department Care Team (Late st Contact Info) Description 12/16/2023 9:16 AM CDT - 12/16/2023 11:59 PM T Hospital Encounter [facility] [address] [place] [address] Mona Peterson MD [address] [place] [address] Discharge Disposition: Home or Self Care (Routine Discharge) Social History Tobacco Use Types Packs/Day Years Used Date Smoking Tobacco: Former Cigarettes 1 29.6 0 02/14/1966 - 10/07/1995 Pipe Smokeless Tobacco: Never Alcohol Use Standard Drinks/Week Comments No 0 (1 standard drink = 0.6 oz pur e alcohol) [facility] Utilities Answer Date Recorded In the past [...] Never 07/27/2023 How often do you attend hinduism or restorationism serv ices? Never 07/27/2023 Do you belong to any clubs o r organizations such as hinduism groups, unions, fraternal or athletic groups, or [...] and heating? Not hard at all 07/27/2023 [facility] [place] of Occupat ional Health - Occupational Stress [...] place to sleep or slept in a alf (including now)? No 07/27/2023 Sex and Gender [...] AM Zamzam King R N Active * Do you have serious difficulty walking or climbing stairs? Answer Date of Assessment Author Status Yes 07/27/2023 10:44 AM Zamzam King R N Active * Do you have difficulty dressing or bathing? Answer Date of Assessment Author Status Yes 07/27/2023 10:44 AM Zamzam King R N Active * Because of a [...] total) by mouth daily. 30 tablet 08/01/2023 loperamide (IMODIUM) 2 MG capsule Take 1 [...] Take 10 mg by mouth daily. 12/30/2023 magnesium oxide 400 (241.3 Mg) MG tablet [...] (Latest Contact Info) Description 06/09/2024 2:20 PM WASHER CARCASS Telemedicine [facility] [address] [place] [phone] Earnest Drake MD [address] [place] [address] 06/21/2024 1:30 AM WASHER CARCASS Allied Health/Nurse Visit [facility] humberto [address] [place] [address] Madan Palomo MD [address] [place] [address] 03/01/2025 11:00 AM CDT Allied Health/Nurse Visit [facility] [place] [address] Norma Rowland, PADaishaC [address] [place] [address] 03/01/2025 11:00 AM CDT Office Visit [facility] [address] [place] [address] Norma Rowland PA-C [address] [place] [address] documented as of this encounter Procedures Procedure Name Priority Date/Time Associated Diagnosis Comments NM BONE SCAN WHOLE BODY WO SPECT Routine 12/16/2023 12:58 PM CDT Abnormal bone xray documented in this encounter Results * NM BONE SCAN WHOLE BODY WO SPECT (12/16/2023 12:58 PM CDT) Anatomical Region Laterality Modality Bone Nuclear Medicine 12/16/2023 12:5 8 PM CDT Impressions 12/16/2023 1:05 PM CDT IMPRESSION: ?? 1. No definite scintigraphic evidence of osteoblastic metastatic disease. 2. Abnormally increased uptake along the distal femurs which have an expanded appearance. Uncertain whether this is due to true metaphyseal expansion or inflammation with associated increased activity. Recommend correlation with plain radiographs. 3. Multifocal osteoarthritic degenerative uptake. Ordered By: MONA PETERSON Interpreted By: Gladys Avalos MD, 12/16/2023 12:58 PM Narrative 12/16/2023 1:05 PM CDT EXAMINATION: ??BONE SCINTIGRAPHY (WHOLE-BODY) DATE OF STUDY: ?? 12/16/2023 RADIOPHARMACEUTICAL: ?? 25.8 mCi Tc-99m MDP i.v. HISTORY: ??Prostate cancer, elevated PSA, 10 pound weight loss. Left hip pain and bilateral knee pain. FINDINGS: ??Delayed whole-body scintigrams were obtained. ??Additional static images of the head and neck were obtained. Prior nuclear medicine studies used for comparison: none Other radiographic comparisons: CT abdomen and pelvis 12/09/2023 Intense foci of uptake along the right hemiabdomen do not overlie the expected location of osseous structures and likely reflect sites of urine contamination. There is urine activity along the medial left thigh, likely within a catheter bag. No intense focal uptake in a pattern to suggest osteoblastic metastatic disease. Multifocal osteoarthritic degenerative pattern of uptake involving the shoulders, sternoclavicular joints, spine, hips, knees, ankles, feet. There is abnormally increased uptake along the distal femurs and knees which appears to extend beyond the normal expected bone surface. Recommend correlation with knee radiographs. Procedure Note Gladys Avalos MD - 12/16/2023 EXAMINATION: BONE SCINTIGRAPHY (WHOLE-BODY) DATE OF STUDY: 12/16/2023 RADIOPHARMACEUTICAL: 25.8 mCi Tc-99m MDP i.v. HISTORY: Prostate cancer, elevated PSA, 10 pound weight loss. Left hippain and bilateral knee pain. FINDINGS: Delayed whole-body scintigrams were obtained. Additionalstatic images of the head and neck were obtained. Prior nuclear medicine studies used for comparison: none Other radiographic comparisons: CT abdomen and pelvis 12/09/2023 Intense foci of uptake along the right hemiabdomen do not overlie theexpected location of osseous structures and likely reflect sites of urinecontamination. There is urine activity along the medial left thigh, likelywithin a catheter bag. No intense focal uptake in a pattern to suggest osteoblastic metastaticdisease. Multifocal osteoarthritic degenerative pattern of uptake involving theshoulders, sternoclavicular joints, spine, hips, knees, ankles, feet.There is abnormally increased uptake along the distal femurs and kneeswhich appears to extend beyond the normal expected bone surface. Recommendcorrelation with knee radiographs. IMPRESSION: 1. No definite scintigraphic evidence of osteoblastic metastaticdisease. 2. Abnormally increased uptake along the distal femurs which have anexpanded appearance. Uncertain whether this is due to true metaphysealexpansion or inflammation with associated increased activity. Recommendcorrelation with plain radiographs. 3. Multifocal osteoarthritic degenerative uptake. Ordered By: MONA PETERSON Interpreted By: Gladys Avalos MD, 12/16/2023 12:58 PM us Mona Peterson MD [facility] Final Resul t documented in this encounter Visit Diagnoses Diagnosis Abnormal bone xray Nonspecific (abnormal) findings on radiological and other examination of musculoskeletal system documented in this encounter Administered Medications Inactive Administered Medications - up to 3 most recent administrations Medication Order MAR Action Action Date Dose Rate Site technetium Tc 99m medronate (DRAXIMAGE MDP) radio-isotope injection 25 millicurie 25 millicurie, Intravenous, Once, 1 dose, On Thu12/16/23 at 0930, Patients should be hydrated before and after dosing. Patients should void immediately before and frequently after imaging to reduce radiation exposure in bladder. RADIOPHARMACEUTICAL: Use appropriate precautions for handling & disposal. Follow appropriate safety measures to minimize radiation exposure during administration; use waterproof gloves & effective shielding, including syringe jaramillo. Given 12/16/2023 9:30 AM CDT 25 millicuries documented in this encounter Care Teams Calcine Furnace Loader Relationship Specialty Start Date End Date Abdon Villela MD [address] [place] [address] PCP - General FAMILY PRACTICE 12/17/15 Pernell Vance MD [address] [place] [address] Consulting Physician CARDIOVASCULAR DISEASE 07/05/1901/30 Kamilla Oliveira NP [address] [place] [address] Referring Physician Nurse Practitioner Family 10/08/2104/14 Madan Palomo MD [address] [place] [address] EP Senior Integration Architect CLINICAL CARDIAC ELECTROPHYSIOLOGY 10/08/21 documented as of this encounter
--- OUTSIDE RECORDS SUMMARY | 2024-06-08 06:08 | XMS_ITS | Encounter Summary ---
Author Organization [facility] Address Critical access hospital6 [facility] [place] [address] [place] [address] Care Team Providers Care Rehabilitation Services Manager Name Role Phone Abdon Villela MD Primary Care Provider [phone] Pernell Vance MD Unavailable UnavailKamilla Lazaro NP Unavailable Unavailable Madan Palomo MD Unavailable [phone] Encounter Details Date Type Department Care Team (Late st Contact Info) Description 12/08/2023 Orders Only [facility] [address] [place] [address] [place] [address] [place] [address] Social History Tobacco Use Types Packs/Day Years Used Date Smoking Tobacco: Former Cigarettes 1 29.6 0 02/14/1966 - 10/07/1995 Pipe Smokeless Tobacco: Never Alcohol Use Standard Drinks/Week Comments No 0 (1 standard drink = 0.6 oz pur e alcohol) [facility] Utilities Answer Date Recorded In the [...] Never 07/27/2023 How often do you attend worship or zoroastrian serv ices? Never 07/27/2023 Do you belong to any clubs o r organizations such as worship groups, unions, fraternal or athletic groups, or [...] and heating? Not hard at all 07/27/2023 [facility] of Occupat ional Health - Occupational Stress [...] Assessment Author Status No 07/27/2023 10:44 AM PIPELINES SUPERINTENDENT Zamzam Zavala R N Active * Are you blind or do you have serious difficulty seeing, even when wearing glasses? Answer Date of Assessment Author Status No 07/27/2023 10:44 AM PIPELINES SUPERINTENDENT Zamzam Zavala R N Active * Do you have serious difficulty walking or climbing stairs? Answer Date of Assessment Author Status Yes 07/27/2023 10:44 AM PIPELINES SUPERINTENDENT Zamzam Zavala R N Active * Do you have difficulty dressing or bathing? Answer Date of Assessment Author Status Yes 07/27/2023 10:44 AM PIPELINES SUPERINTENDENT Zamzam Zavala R N Active * Because of a physical, mental, or emotional condition, do you have difficulty doing errands alone such as visiting a doctor's office or shopping? Answer Date of Assessment Author Status Yes 07/27/2023 10:44 AM PIPELINES SUPERINTENDENT Zamzam Zavala R N Active documented as of this encounter Mental Status * Because of a physical, mental, or emotional condition, do you have serious difficulty concentrating, remembering, or making decisions? Answer Entry Date Author Status No 07/27/2023 10:44 AM PIPELINES SUPERINTENDENT Zamzam Zavala R N Active documented in this encounter Plan of Treatment Upcoming Encounters Date Type Department Care Team (Latest Contact Info) Description 06/09/2024 2:20 PM PIPELINES SUPERINTENDENT Telemedicine [facility] Medical Group Mult[facility]pec[facility] [address] [place] [address] Earnest Drake MD [address] [place] [address] 06/21/2024 1:30 AM PIPELINES SUPERINTENDENT Allied Health/Nurse Visit [facility] [address] [place] [address] Madan Palomo MD [address] [place] [address] 03/01/2025 11:00 AM CDT Allied Health/Nurse Visit [facility] [place] [address] [place] [address] Norma Rowland PA-C [address] [place] [address] 03/01/2025 11:00 AM CDT Office Visit [facility] [place] [address] [place] [address] Norma Rowland PA-C [address] [place] [address] documented as of this encounter Results * (ABNORMAL) PROSTATE SPECIFIC ANTIGEN, DIAG (12/08/2023 9:20 AM CDT) PSA 6.64(H) <4.00 NG/ML 12/08/2023 9:50 AM CDT [facility] Comment: ASSAY PERFORMED BY ENZYME IMMUNOASSAY METHODOLOGY USING SIEMENS DIMENSION REAGENT. PATIENT RESULTS DETERMINED BY ASSAYS FROM DIFFERENT MANUFACTURERS AND/OR BY DIFFERENT METHODS MAY NOT BE COMPARABLE. 12/08/2023 9:20 AM CDT Yanna Hastings III, MD LABORATORY Final Re sult [facility] [address] [place] [address], * (ABNORMAL) BASIC METABOLIC PANEL (12/08/2023 9:20 AM CDT) SODIUM S/P/B 136 136 - 145 MMOL/L 12/08/2023 9:50 AM CDT [facility] POTASSIUM S/P/B 5.0 3.5 - 5.1 MMOL/L 12/08/2023 9:50 AM CDT [facility] CHLORIDE S/P/B 99 98 - 107 MMOL/L 12/08/2023 9:50 AM CDT [facility] CO2 30.3 21.0 - 32.0 MMOL/L 12/08/2023 9:50 AM CDT [facility] GLUCOSE 198(H) 70 - 99 MG/DL 12/08/2023 9:50 AM CDT [facility] Comment: FASTING GLUCOSE 100 TO 125 MG/DL IS CONSISTENT WITH IMPAIRED FASTING GLUCOSE. FASTING GLUCOSE >125 MG/DL IS CONSISTENT WITH DIABETES. RANDOM GLUCOSE >200 MG/DL WITH HYPERGLYCEMIC SYMPTOMS IS CONSISTENT WITH DIABETES. PER ADA GUIDELINES BUN 31(H) 6 - 24 MG/DL 12/08/2023 9:50 AM CDT [facility] CREATININE S/P/B 1.02 0.70 - 1.30 MG/DL 12/08/2023 9:50 AM CDT [facility] CALCIUM S/P/B 9.3 8.4 - 10.5 MG/DL 12/08/2023 9:50 AM CDT [facility] ANION GAP 6.7 5.0 - 15.0 MMOL/L 12/08/2023 9:50 AM CDT [facility] OSMOLALITY (CALC) 294 MOSM/KG 024 9:50 AM CDT [facility] Comment:REFERENCE RANGE NOT ESTABLISHED GFR ESTIMATE 75(L) >89 ML/MIN/1. 73 M2 12/08/2023 9:50 AM CDT [facility] GFR NOTES GFR REFERENCE S: 12/08/2023 9:50 AM CDT [facility] Comment: THE ESTIMATED GFR IS [...] Hastings III, MD LABORATORY Final Re sult [facility] [address] [place] [address], documented in this encounter Visit Diagnoses Diagnosis Retention of urine- Primary Retention of urine, unspecified Benign prostatic hyperplasia with lower urinary tract symptoms, symptom details unspecified documented in this encounter Care Teams Rehabilitation Services Manager Relationship Specialty Start Date End [place] [phone] PCP - General FAMILY PRACTICE 12/17/15 [place] [address] Consulting Physician CARDIOVASCULAR DISEASE 07/05/1901/30 Kamilla Oliveira, RETAIL WORKER [address] [place] [address] Referring Physician Nurse Practitioner Family 10/08/2104/14 Madan Palomo MD [address] [place] [address] EP Web Applications Architect CLINICAL CARDIAC ELECTROPHYSIOLOGY 10/08/21 documented as of this encounter
--- OUTSIDE RECORDS SUMMARY | 2024-06-08 06:08 | XMS_ITS | Encounter Summary ---
Author Organization [facility] Address Critical access hospital6 [place] [address] [place] [address] Care Team Providers Care Ceramic Products Sales Engineer Name Role Phone Abdon Villela MD Primary Care Provider [phone] Pernell Vance MD Unavailable UnavailKamilla Lazaro NP Unavailable Unavailable Madan Palomo MD Unavailable [phone] Reason for Visit * Reason Comments New Patient Umb. hernia Encounter Details Date Type Department Care Team (Late st Contact Info) Description 12/30/2023 9:15 AM CDT Office Visit [facility] [address] [place] [address] Star Broderick MD [address] [place] [address] New Patient (Umb. hernia) Social History Tobacco Use Types Packs/Day Years Used Date Smoking Tobacco: Former Cigarettes 1 29.6 0 02/14/1966 - 10/07/1995 Pipe Smokeless Tobacco: Never Tobacco Cessation:Counseling Given: No Alcohol Use Standard Drinks/Week Comments No 0 (1 standard drink = 0.6 oz pur e alcohol) [facility] Utilities Answer Date Recorded In the past [...] Never 07/27/2023 How often do you attend gnosticism or jain serv ices? Never 07/27/2023 Do you belong to any clubs o r organizations such as gnosticism groups, unions, fraternal or athletic groups, or [...] and heating? Not hard at all 07/27/2023 [place] of Occupat ional Health - Occupational Stress [...] Sign Reading Time Taken Comments Blood Pressure 105/57 12/30/2023 9:08 AM CDT Pulse 62 12/30/2023 9:08 AM CDT Temperature - - Respiratory Rate 12 12/30/2023 9:08 AM CDT Oxygen Saturation - - Inhaled Oxygen Concentration - - Weight 83 kg (183 lb) 12/30/2023 9:08 AM CDT Height 182.9 cm (6') 12/30/2023 9:08 AM CDT Body Mass Index 24.82 12/30/2023 9:08 AM CDT documented in this encounter Functional Status * Are you deaf or do you have serious difficulty hearing Answer Date of Assessment Author Status No 07/27/2023 10:44 AM DISTRIBUTION SPECIALIST Zamzam Zavala R N Active * Are you blind or do you have serious difficulty seeing, even when wearing glasses? Answer Date of Assessment Author Status No 07/27/2023 10:44 AM DISTRIBUTION SPECIALIST Zamzam Zavala R N Active * Do you have serious difficulty walking or climbing stairs? Answer Date of Assessment Author Status Yes 07/27/2023 10:44 AM DISTRIBUTION SPECIALIST Zamzam Zavala A R N Active * Do you have difficulty dressing or bathing? Answer Date of Assessment Author Status Yes 07/27/2023 10:44 AM DISTRIBUTION SPECIALIST Zamzam Zavala R N Active * Because of a physical, mental, or emotional condition, do you have difficulty doing errands alone such as visiting a doctor's office or shopping? Answer Date of Assessment Author Status Yes 07/27/2023 10:44 AM DISTRIBUTION SPECIALIST Zamzam Zavala A, R N Active documented as of this encounter Mental Status * Because of a physical, mental, or emotional condition, do you have serious difficulty concentrating, remembering, or making decisions? Answer Entry Date Author Status No 07/27/2023 10:44 AM Zamzam King R N Active documented in this encounter Progress Notes * Star Broderick MD - 12/30/2023 9:15 AM CDT Reason for Visit: New Patient (Umb. hernia) History of Present Illness: Mr. Fernandez is a 78-year-old male being referred for evaluation of an incarcerated umbilical hernia. He was seen in the emergency department several weeks ago with acute onset of abdominal pain and abulge around his umbilicus. There he was noted to have a bowel containing incarcerated inguinal hernia. This was ultimately able to be reduced. He had a CT scan demonstrating this. He reports that since that time he is feeling better. The patient is confused and challenging in terms of his recollection and ability to give history so it is extremely limited history. He is not sure how long he had the hernia for. He is diabetic. He is on Eliquis. He does have significant medical comorbidities. ROS: Review of Systems Constitutional: Negative for activity change and appetite change. HENT: Negative for congestion and sore throat. Respiratory: Negative for cough and shortness of breath. Cardiovascular: Negative for chest pain and palpitations. Gastrointestinal: Negative for abdominal distention, abdominal pain, constipation, diarrhea, nauseaand vomiting. Genitourinary: Negative for dysuria and hematuria. Musculoskeletal: Negative for back pain and neck pain. Skin: Negative for pallor and rash. Neurological: Negative for dizziness, light-headedness and headaches. Psychiatric/Behavioral: The patient is not nervous/anxious. Medications: Current Outpatient Medications: acetaminophen (TYLENOL) 500 MG tablet, Take 2 tablets (1,000 mg total) by mouth every 6 (six) hoursas needed for Pain., Disp: , Rfl: apixaban (ELIQUIS) 5 MG tablet, Take 1 tablet (5 mg total) by mouth 2 (two) times daily., Disp: 60 tablet, Rfl: 5 atorvastatin (LIPITOR) 80 MG tablet, Take 1 tablet (80 mg total) by mouth nightly at bedtime., Disp: , Rfl: carvedilol (COREG) 3.125 MG tablet, 2 (two) times daily., Disp: , Rfl: ferrous sulfate EC 325 (65 Fe) MG tablet, Take 1 tablet by mouth daily., Disp: , Rfl: finasteride (PROSCAR) 5 MG tablet, Take 1 tablet (5 mg total) by mouth daily., Disp: , Rfl: furosemide (LASIX) 40 MG tablet, Take 1 tablet (40 mg total) by mouth daily., Disp: 30 tablet, Rfl:0 lisinopril (PRINIVIL) 10 MG tablet, Take 1 tablet (10 mg total) by mouth daily., Disp: , Rfl: loperamide (IMODIUM) 2 MG capsule, Take 1 capsule (2 mg total) by mouth 4 (four) times daily as needed for Diarrhea., Disp: , Rfl: magnesium oxide 400 (241.3 Mg) MG tablet, Take 1 tablet (400 mg total) by mouth daily., Disp: , Rfl: metFORMIN 1000 MG tablet, Take 1 tablet (1,000 mg total) by mouth 2 (two) times daily., Disp: , Rfl: nitroglycerin (NITROSTAT) 0.4 MG SL tablet, Place 1 tablet (0.4 mg total) under the tongue every 5 (five) minutes as needed for Chest Pain., Disp: , Rfl: polyethylene glycol powder, Take 17 g by mouth daily as needed (constipation)., Disp: , Rfl: potassium chloride CR (KLOR-CON M) 20 MEQ tablet, Take 1 tablet (20 mEq total) by mouth daily., Disp: 60 tablet, Rfl: 0 tamsulosin (FLOMAX) 0.4 MG Cap, Take 1 capsule (0.4 mg total) by mouth daily., Disp: 30 capsule, Rfl: 0 vitamin B-12 1000 MCG tablet, Take 1 tablet (1,000 mcg total) by mouth daily., Disp: , Rfl: Allergies Allergen Reactions Tomato Diarrhea Past Medical History: Diagnosis Date A-fib ([facility]) BPH (benign prostatic hyperplasia) CHF (congestive heart failure) ([facility]) Coronary artery disease Dementia without behavioral disturbance ([facility]) Diabetes mellitus ([facility]) Disorder of prostate HLD (hyperlipidemia) Hyperlipidemia Hypertension Pacemaker 09/10/2022 Respiratory failure ([facility]) Sick sinus syndrome ([facility]) Urinary retention Past Surgical History: Procedure Laterality Date CORONARY ART DIL,ONE VESSEL 2010 INSER COBIAN PACER XVENOUS ATRIAL 05/04/2013 PACEMAKER Social History Socioeconomic History Marital status: Number of children: 2 Occupational History Employer: RETIRED Tobacco Use Smoking status: Former Current packs/day: 0.00 Average packs/day: 1 pack/day for 29.6 years (29.6 ttl pk-yrs) Types: Cigarettes, Pipe Start date: 02/14/1966 Quit date: 10/07/1995 Years since quittin.2 Smokeless tobacco: Never Substance and Sexual Activity Alcohol use: No Drug use: No Sexual activity: Not Currently Other Topics Concern Exercise No Special Diet No Caffeine Concern No Social Determinants of Health Financial Resource Strain: Low Risk [...] No Stress: No Stress Concern Present (07/27/2023) [place] [facility] Occupational Health - Occupational Stress Questionnaire Feeling of Stress : Not at all Social Connections: Socially Isolated (07/27/2023) Social Connection and Isolation Panel [NHANES] Frequency of Communication with Friends and Family: Never Frequency of Social Gatherings with Friends and Family: Never Attends Scientology Services: Never Active Member of Clubs or [...] Name Age of Onset Heart Attack Mother Family Status Relation Name Status Mother Father Brother Alive No partnership data on file Physical Exam Vitals reviewed. Constitutional: Appearance: Normal appearance. HENT: Head: Normocephalic and atraumatic. Eyes: Extraocular Movements: Extraocular movements intact. Pupils: Pupils are equal, round, and reactive to light. Cardiovascular: Rate and Rhythm: Normal rate and regular rhythm. Pulmonary: Effort: Pulmonary effort is normal. Abdominal: Palpations: Abdomen is soft. Tenderness: There is no abdominal tenderness. Hernia: A hernia is present. Comments: Easily reducible bowel containing approximately 1 and half to 2 cm supraumbilical hernia with no overlying skin changes Musculoskeletal: General: No swelling or tenderness. Cervical back: Normal range of motion and neck supple. Skin: General: Skin is warm and dry. Neurological: General: No focal deficit present. Mental Status: He is alert. Psychiatric: Mood and Affect: Mood normal. Behavior: Behavior normal. Filed Vitals: 12/30/23 0908 BP: 105/57 Pulse: 62 Resp: 12 Weight: 83 kg (183 lb) Height: 1.829 m (6') Diagnoses/Impression: No diagnosis found. Recommendations and Plan: Mr. Fernandez is a 78-year-old male with a symptomatic bowel containing umbilical hernia. On review of his imaging he has a very narrow neck and although it is reducible I think he is at fairly high risk of having issues related to incarceration or strangulation in the future. Given that I do recommend surgical repair. Of note he does have significant medical comorbidities and we would like him to see his cfo for risk stratification. If he is exceedingly high risk we could consider continued observation but given his mental status issues I am very concerned about his ability to notice or seek medical attention if he were to have a complication related to this hernia. Reviewed and updated this visit by provider: Tobacco Allergies Meds Problems Med Hx Surg Hx Fam Hx Star Broderick Referring Provider: No ref. provider found PCP: ABDON VILLELA MD documented in this encounter Plan of Treatment Upcoming Encounters Date Type Department Care Team (Latest Contact Info) Description 06/09/2024 2:20 PM DISTRIBUTION SPECIALIST Telemedicine [facility] Multispecialty [facility] [address] [place] [phone] Earnest Drake MD [address] [place], [place] [id number] 06/21/2024 1:30 AM DISTRIBUTION SPECIALIST Allied Health/Nurse Visit [facility] [address] [place] [address] Madan Palomo MD [address] [place] [address] 03/01/2025 11:00 AM CDT Allied Health/Nurse Visit [facility] [address] [place] [address] Norma Rowland PA-C [address] [place] [address] 03/01/2025 11:00 AM CDT Office Visit [facility] [address] [place] [address] Norma Rowland PA-C [address] [place] [address] documented as of this encounter Visit Diagnoses Diagnosis Umbilical hernia without obstruction or gangrene- Primary Umbilical hernia without mention of obstruction or gangrene documented in this encounter Care Teams Ceramic Products Sales Engineer Relationship Specialty Start Date End Date Abdon Villela MD [address] [place] [address] PCP - General FAMILY PRACTICE 12/17/15 Pernell Vance MD [address] [place] [address] Consulting Physician CARDIOVASCULAR DISEASE 07/05/1901/30 Kamilla Oliveira NP [address] [place] [address] Referring Physician Nurse Practitioner [facility] 10/08/2104/14 Madan Palomo MD [address] [place] [address] EP Silk Soaker CLINICAL CARDIAC ELECTROPHYSIOLOGY 10/08/21 documented as of this encounter
--- OUTSIDE RECORDS SUMMARY | 2024-06-08 06:08 | XMS_ITS | Encounter Summary ---
Author Organization [facility] Address [facility] [place] [address] [place] [address] Care Team Providers Care Project Manager Entertainment And Media Name Role Phone Abdon Villela MD Primary Care Provider [phone] Madan Palomo MD Unavailable [phone] Norma Rowland PA-C Unavailable [phone] Encounter Details Date Type Department Care Team (Late st Contact Info) Description 03/02/2024 10:15 AM CDT Allied Health/Nurse Visit [facility] [place] [phone] Madan Palomo MD [address] [place] [address] Social History Tobacco Use Types Packs/Day Years Used Date Smoking Tobacco: Former Cigarettes 1 29.6 0 02/14/1966 - 10/07/1995 Pipe Smokeless Tobacco: Never Alcohol Use Standard Drinks/Week Comments No 0 (1 standard drink = 0.6 oz pur e alcohol) [facility] Utilities Answer Date Recorded In the [...] Never 07/27/2023 How often do you attend yazidism or mormon serv ices? Never 07/27/2023 Do you belong to any clubs o r organizations such as yazidism groups, unions, fraternal or athletic groups, or [...] and heating? Not hard at all 07/27/2023 [facility] [place] of Occupat ional Health - Occupational Stress [...] place to sleep or slept in a mcfp (including now)? No 07/27/2023 Sex and Gender [...] Assessment Author Status No 07/27/2023 10:44 AM EDUCATION PROFESSOR Zamzam Zavala R N Active * Are you blind or do you have serious difficulty seeing, even when wearing glasses? Answer Date of Assessment Author Status No 07/27/2023 10:44 AM EDUCATION PROFESSOR Olga Zavalayl A R N Active * Do you have serious difficulty walking or climbing stairs? Answer Date of Assessment Author Status Yes 07/27/2023 10:44 AM EDUCATION PROFESSOR Zamzam Zavala R N Active * Do you have difficulty dressing or bathing? Answer Date of Assessment Author Status Yes 07/27/2023 10:44 AM EDUCATION PROFESSOR Zamzam Zavala A R N Active * Because of a physical, mental, or emotional condition, do you have difficulty doing errands alone such as visiting a doctor's office or shopping? Answer Date of Assessment Author Status Yes 07/27/2023 10:44 AM EDUCATION PROFESSOR Zamzam Zavala R N Active documented as of this encounter Mental Status * Because of a physical, mental, or emotional condition, do you have serious difficulty concentrating, remembering, or making decisions? Answer Entry Date Author Status No 07/27/2023 10:44 AM EDUCATION PROFESSOR Zamzam Zavala R N Active documented in this encounter Progress Notes * Hilary Calix - 03/02/2024 10:15 AM CDT In office device check performed by Stunable rep on 03/02/2024 See media for pdf Cosigned by Madan Palomo MD at 03/03/2024 6:26 AM CDT documented in this encounter Plan of Treatment Upcoming Encounters Date Type Department Care Team (Latest Contact Info) Description 06/09/2024 2:20 PM EDUCATION PROFESSOR Telemedicine [facility] Multispecialty [facility] [address] [place] [address] Earnest Drake MD [address] [place], [place] [phone] 06/21/2024 1:30 AM EDUCATION PROFESSOR Allied Health/Nurse Visit [facility] [address] [place] [address] Madan Palomo MD [address] [place] [address] 03/01/2025 11:00 AM CDT Allied Health/Nurse Visit [facility] [place] [address] Norma Rowland PADaishaC [address] [place], [place] [address] 03/01/2025 11:00 AM CDT [facility] [address] [place] [address] Norma Rowland PA-C [address] [place], [place] [address] documented as of this encounter Visit Diagnoses Diagnosis 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, 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
--- OUTSIDE RECORDS SUMMARY | 2024-06-08 06:08 | XMS_ITS | Encounter Summary ---
Author Organization [facility] Address [facility] [place] [address] [place] [address] Care Team Providers Care Clean Up Person Name Role Phone Abdon Villela MD Primary Care Provider [phone] Madan Palomo MD Unavailable [phone] Norma Rowland PA-C Unavailable [phone] Encounter Details Date Type Department Care Team (Latest Contact Info) Description 03/02/2024 Travel Social History Tobacco Use Types Packs/Day Years Used Date Smoking Tobacco: Former Cigarettes 1 29.6 0 02/14/1966 - 10/07/1995 Pipe Smokeless Tobacco: Never Alcohol Use Standard Drinks/Week Comments No 0 (1 standard drink = 0.6 oz pur e alcohol) [facility] Utilities Answer Date Recorded In the past 12 months has [facility] [employer], gas, oil, or water [employer] threatened to shut off services in your [...] Never 07/27/2023 How often do you attend restorationist or lutheran serv ices? Never 07/27/2023 Do you belong to any clubs o r organizations such as restorationist groups, unions, fraternal or athletic groups, or [...] and heating? Not hard at all 07/27/2023 [facility] - Occupational Stress Questionnaire Answer Date Recorded [...] Assessment Author Status No 07/27/2023 10:44 AM HUMAN RESOURCES OFFICER Zamzam Zavala R N Active * Are you blind or do you have serious difficulty seeing, even when wearing glasses? Answer Date of Assessment Author Status No 07/27/2023 10:44 AM HUMAN RESOURCES OFFICER Zamzam Zavala R N Active * Do you have serious difficulty walking or climbing stairs? Answer Date of Assessment Author Status Yes 07/27/2023 10:44 AM HUMAN RESOURCES OFFICER Olga Zavalayl A R N Active * Do you have difficulty dressing or bathing? Answer Date of Assessment Author Status Yes 07/27/2023 10:44 AM HUMAN RESOURCES OFFICER Olga Zavalayl Hayley R N Active * Because of a physical, mental, or emotional condition, do you have difficulty doing errands alone such as visiting a doctor's office or shopping? Answer Date of Assessment Author Status Yes 07/27/2023 10:44 AM HUMAN RESOURCES OFFICER Zamzam Zavala R N Active documented as of this encounter Mental Status * Because of a physical, mental, or emotional condition, do you have serious difficulty concentrating, remembering, or making decisions? Answer Entry Date Author Status No 07/27/2023 10:44 AM HUMAN RESOURCES OFFICER Zamzam Zavala R N Active documented in this encounter Plan of Treatment Upcoming Encounters Date Type Department Care Team (Latest Contact Info) Description 06/09/2024 2:20 PM HUMAN RESOURCES OFFICER Telemedicine [facility] Medical Group [facility] [address] [place] [address] Earnest Drake MD [address] [place], [place] [phone] 06/21/2024 1:30 AM HUMAN RESOURCES OFFICER Allied Health/Nurse Visit [facility] [address] [place] [phone] Madan Palomo MD [address] [place], [place] [address] 03/01/2025 11:00 AM CDT Allied [facility]/Nurse Visit [facility] [place] [address] [place] [address] Norma Rowland PA-C [address] [place], [place] [address] 03/01/2025 11:00 AM CDT Office Visit [facility] [place] [address] [place] [address] Norma Rowland PA-C [address] [place], [place] [address] documented as of this encounter Visit Diagnoses Not on filedocumented in this encounter Care Teams Clean Up Person Relationship Specialty Start Date End Date Abdon Villela MD [address] [place] [address] PCP - General FAMILY PRACTICE 12/17/15 Madan Palomo MD [address] [place] [address] EP Radiology Physician Assistant CLINICAL CARDIAC ELECTROPHYSIOLOGY 10/08/21 Norma Rowland PA-C [address] [place] [address] Referring Physician PHYSICIAN DIRECTOR REGULATORY AGENCY 12/31/23 documented as of this encounter
--- OUTSIDE RECORDS SUMMARY | 2024-06-08 06:08 | XMS_ITS | Encounter Summary ---
Author Organization [facility] Address [facility] [place] [address] [place] [address] Care Team Providers Care Machining Supervisor Name Role Phone Abdon Mendoza MD Primary Care Provider [phone] Pernell Vance MD Unavailable UnavailKamilla Lazaro NP Unavailable Unavailable Madan Palomo MD Unavailable [phone] Reason for Visit * Auth/Cert Specialty Diagnoses / Procedures Referred By Contac t Referred To Contact Diagnoses Benign localized prostatic hyperplasia with lower urinary tract symptoms (LUTS) BPH W/ LUTS N40.1 Procedures CYSTOURETHROSCOPY CYSTOSCOPY FLEXIBLE Referral ID Status Reason Start Date Expiration Date Visits Re quested Visits Authorized [id number] 1 1 Encounter Details Date Type Department Care Team (Late st Contact Info) Description 12/15/2023 7:48 AM CDT - 12/15/2023 8:16 AM CDT Surgery [place] OR [facility] [place] [address] [place] [id number] [place] [address] CYSTOSCOPY FLEXIBLE Surgery Details Date/Time Status Location OR Service Patient Class Case Class Case Type Trauma Case? 12/15/2023 7:48 AM Posted SFL OR Uro Urology Short Stay/Outpati ent Surgery No Panel 1 Procedure LRB Anes Op Region Wound Class Comments CYSTOSCOPY FLEXIBLE N/A Local Bladder Clean Surgeon Surgeon Role Service Panel Yanna Hastings III, MD Primary Urology 1 documented in this encounter Social History Tobacco Use Types Packs/Day Years Used Date Smoking Tobacco: Former Cigarettes 1 29.6 0 02/14/1966 - 10/07/1995 Pipe Smokeless Tobacco: Never Alcohol Use Standard Drinks/Week Comments No 0 (1 standard drink = 0.6 oz pur e alcohol) [facility] Utilities Answer Date Recorded In the past 12 months has e [employer], gas, oil, or water [employer] threatened to shut off services in your [...] Never 07/27/2023 How often do you attend sabianism or episcopalian serv ices? Never 07/27/2023 Do you belong to any clubs o r organizations such as sabianism groups, unions, fraternal or athletic groups, or [...] and heating? Not hard at all 07/27/2023 [facility] [place] [facility] Occupat ional Health - Occupational Stress [...] place to sleep or slept in a long term (including now)? No 07/27/2023 Sex and Gender [...] Sign Reading Time Taken Comments Blood Pressure 148/80 12/15/2023 7:54 AM CDT Pulse 60 12/15/2023 7:54 AM CDT Temperature 36.4 ??C (97.6 ??F) 12/15/2023 7:54 AM CD T Respiratory Rate 16 12/15/2023 7:54 AM CDT Oxygen Saturation 99% 12/15/2023 7:54 AM CDT Inhaled Oxygen Concentration - - Weight 86.1 kg (189 lb 12.8 oz) 024 12:04 PM CDT Height 182.9 cm (6') 12/11/2023 12:04 PM CDT Body Mass Index 25.74 12/11/2023 12:04 PM CDT documented in this encounter Functional Status * Are you deaf or do you have serious difficulty hearing Answer Date of Assessment Author Status No 07/27/2023 10:44 AM CAR CHASER ApOlga trevinoyl A R N Active * Are you blind or do you have serious difficulty seeing, even when wearing glasses? Answer Date of Assessment Author Status No 07/27/2023 10:44 AM CAR CHASER ApkeOlgayl A, R N Active * Do you have serious difficulty walking or climbing stairs? Answer Date of Assessment Author Status Yes 07/27/2023 10:44 AM CAR CHASER Olga Zavalayl A, R N Active * Do you have difficulty dressing or bathing? Answer Date of Assessment Author Status Yes 07/27/2023 10:44 AM CAR CHASER Apke Zamzam A, R N Active * Because of a physical, mental, or emotional condition, do you have difficulty doing errands alone such as visiting a doctor's office or shopping? Answer Date of Assessment Author Status Yes 07/27/2023 10:44 AM CAR CHASER BillkeOlgayl A, R N Active documented as of this encounter Mental Status * Because of a physical, mental, or emotional condition, do you have serious difficulty concentrating, remembering, or making decisions? Answer Entry Date Author Status No 07/27/2023 10:44 AM CAR CHASER ApkeOlgayl A, R N Active documented in this encounter Discharge Instructions * Attachments The following attachments cannot be sent through Care Everywhere. * Cystoscopy Discharge Instructions (Cameroonian) * How to Care for Your Hill Catheter, Male (Cameroonian) * How to Prevent Catheter Associated Urinary Tract Infections (Cameroonian) documented in this encounter Medications at Time [...] (two) times daily. 60 tablet 07/31/2023 12/30/2023 ciprofloxacin (CIPRO) 500 MG tablet Take 1 tablet (500 mg total) by mouth 2 (two) times daily for 7 days. 14 tablet 12/09/2023 12/16/2023 lisinopril (PRINIVIL) 10 MG tablet Take 1 [...] daily. 03/02/2024 documented as of this encounter Progress Notes * Carmen Worthy RN - 12/15/2023 9:51 AM CDT Hill Catheter placed per Dr. Hastings order. Patient was unable to void in post op. [facility] regional maintenance manager at this time with urine return. 500 ml of urine emptied from leg bag at this time. This RN contacted nursing facility and spoke with Nurse Collins and gave verbal order from Dr. Hastings to change hill monthly or per protocol and [facility] verbalized understanding. documented in this encounter H&P Notes * Yanna Hastings III, MD - 12/15/2023 7:06 AM CDT HISTORY AND PHYSICAL INTERVAL NOTE: I have reviewed Annie Crocker History & Physical which was performed within the past 30 days. After examining Annie Crocker, no change has occurred in the patient's condition since the H&P was completed. Informed Consent Discussion: Potential benefits, risks, and side effects of the patient's procedure/surgery; the likelihood of the patient achieving his or her goals; and any potential problems that might occur during recuperation were discussed with the patient/family/personal unit support representative. Reasonable alternatives to the patient's proposed procedure/surgery including benefits, risks, and side effects related to the alternatives and the risks related to not receiving the proposed care were also discussed with the patient/family/personal unit support representative. Questions were answered and the patient /family/personal unit support representative verbalized understanding and desires to proceed. Source Note - Yanna Hastings III, MD - 12/09/2023 6:00 PM CDT Consults Attending Provider: Yanna Hastings III, MD PCP: ABDON MENDOZA MD Annie Crocker is an 78-year-old male. Reason for Admission: Demented NHP presented to [facility] ER with abdominal pains . CT revealed a huge bladder and hydronephrosis but his voiding sxs were minimal. A catheter was placed and 2000 cc drained. Abdominal pains persist. No other intra abdominal pathology seen. Pt is not bothered by the hill so far and his renal function has improved with catheter drainage. At present he is satisfied with this but because he still has abdominal pains he may still need further scrutiny by his medical team. His only c/o about the catheter is his belief that it contains a poison which kills sheep and cows Nursing staff noted he has become aggressive and angry at times so If he can void at the time of cysto today we will leave the hill out. If he cannot empty well then I recommend detention hill while under supervision at the [place] Reason for Consult: Requested by Yanna Hastings III, MD Past Medical History: Diagnosis Date ??? A[facility]fib ([facility] ??? BPH (benign prostatic hyperplasia) ??? CHF (congestive heart failure) ([facility]) ??? Coronary artery disease ??? Dementia without behavioral disturbance ([facility]) ??? Diabetes mellitus ([facility]) ??? Disorder of prostate ??? HLD (hyperlipidemia) ??? Hyperlipidemia ??? Hypertension ??? Pacemaker 09/10/2022 ??? Respiratory failure ([facility]) ??? Sick sinus syndrome ([facility]) ??? Urinary retention Allergies: No Known Allergies Social History Tobacco Use ??? Smoking status: Former Current packs/day: 0.00 Average packs/day: 1 pack/day for 29.6 years (29.6 ttl pk-yrs) Types: Cigarettes, Pipe Start date: 02/14/1966 Quit date: 10/07/1995 Years since quittin.1 ??? Smokeless tobacco: Never Substance Use Topics ??? Alcohol use: No Past Surgical History: Procedure Laterality Date ??? CORONARY ART DIL,ONE VESSEL 2010 ??? INSER COBIAN PACER XVENOUS ATRIAL 05/04/2013 ??? PACEMAKER Family History Problem Relation Name Age of Onset ??? Heart Attack Mother No current facility-administered medications on file prior to encounter. Current Outpatient Medications on File Prior to Encounter Medication Sig ??? acetaminophen (TYLENOL) 500 MG tablet Take 2 tablets (1,000 mg total) by mouth every 6 (six) hours as needed for Pain. ??? apixaban (ELIQUIS) 5 MG tablet Take 1 tablet (5 mg total) by mouth 2 (two) times daily. ??? atorvastatin (LIPITOR) 80 MG tablet Take 1 tablet (80 mg total) by mouth nightly at bedtime. ??? carvedilol (COREG) 6.25 MG tablet Take 1 tablet (6.25 mg total) by mouth 2 (two) times daily. ??? ferrous sulfate EC 325 (65 Fe) MG tablet Take 1 tablet by mouth daily. ??? furosemide (LASIX) 40 MG tablet Take 1 tablet (40 mg total) by mouth daily. ??? lisinopril (PRINIVIL) 40 MG tablet Take 10 mg by mouth daily. ??? magnesium oxide 400 (241.3 Mg) MG tablet Take 1 tablet (400 mg total) by mouth daily. ??? metFORMIN 1000 MG tablet Take 1 tablet (1,000 mg total) by mouth 2 (two) times daily. ??? nitroglycerin (NITROSTAT) 0.[address] 1 tablet (0.4 mg total) under the tongue every5 (five) minutes as needed for Chest Pain. ??? polyethylene glycol powder Take 17 g by mouth daily as needed (constipation). ??? potassium chloride CR (KLOR-CON M) 20 MEQ tablet Take 1 tablet (20 mEq total) by mouth daily. ??? tamsulosin (FLOMAX) 0.4 MG Cap Take 1 capsule (0.4 mg total) by mouth daily. ??? vitamin B-12 1000 MCG tablet Take 1 tablet (1,000 mcg total) by mouth daily. No current facility-administered medications for this encounter. Current Outpatient Medications: ??? acetaminophen (TYLENOL) 500 MG tablet, Take 2 tablets (1,000 mg total) by mouth every 6 (six) hours as needed for Pain., Disp: , Rfl: ??? apixaban (ELIQUIS) 5 MG tablet, Take 1 tablet (5 mg total) by mouth 2 (two) times daily., Disp:60 tablet, Rfl: 5 ??? atorvastatin (LIPITOR) 80 MG tablet, Take 1 tablet (80 mg total) by mouth nightly at bedtime., Disp: , Rfl: ??? carvedilol (COREG) 6.25 MG tablet, Take 1 tablet (6.25 mg total) by mouth 2 (two) times daily.,Disp: 60 tablet, Rfl: 0 ??? ciprofloxacin (CIPRO) 500 MG tablet, Take 1 tablet (500 mg total) by mouth 2 (two) times daily for 7 days., Disp: 14 tablet, Rfl: 0 ??? ferrous sulfate EC 325 (65 Fe) MG tablet, Take 1 tablet by mouth daily., Disp: , Rfl: ??? finasteride (PROSCAR) 5 MG tablet, Take 1 tablet (5 mg total) by mouth daily., Disp: , Rfl: ??? furosemide (LASIX) 40 MG tablet, Take 1 tablet (40 mg total) by mouth daily., Disp: 30 tablet, Rfl: 0 ??? lisinopril (PRINIVIL) 40 MG tablet, Take 10 mg by mouth daily., Disp: , Rfl: ??? loperamide (IMODIUM) 2 MG capsule, Take 1 capsule (2 mg total) by mouth 4 (four) times daily asneeded for Diarrhea., Disp: , Rfl: ??? magnesium oxide 400 (241.3 Mg) MG tablet, Take 1 tablet (400 mg total) by mouth daily., Disp: ,Rfl: ??? metFORMIN 1000 MG tablet, Take 1 tablet (1,000 mg total) by mouth 2 (two) times daily., Disp: ,Rfl: ??? nitroglycerin (NITROSTAT) 0.4 MG SL tablet, Place 1 tablet (0.4 mg total) under the tongue every 5 (five) minutes as needed for Chest Pain., Disp: , Rfl: ??? polyethylene glycol powder, Take 17 g by mouth daily as needed (constipation)., Disp: , Rfl: ??? potassium chloride CR (KLOR-CON M) 20 MEQ tablet, Take 1 tablet (20 mEq total) by mouth daily.,Disp: 60 tablet, Rfl: 0 ??? tamsulosin (FLOMAX) 0.4 MG Cap, Take 1 capsule (0.4 mg total) by mouth daily., Disp: 30 capsule, Rfl: 0 ??? vitamin B-12 1000 MCG tablet, Take 1 tablet (1,000 mcg total) by mouth daily., Disp: , Rfl: Active Problems: * No active hospital problems. * ROS Prostate Physical Exam Constitutional: He appears well-developed. HENT: Head: Normocephalic. Right Ear: External ear normal. Left Ear: External ear normal. Nose: Nose normal. Eyes: EOM are normal. Pulmonary/Chest: Effort normal. Abdominal: Soft. Genitourinary: Rectum normal and penis normal. Psychiatric: He has a normal mood and affect. There were no vitals taken for this visit. Physical Exam GEN: Alert and oriented HEENT: AT and NC LUNGS: unlabored respiratory effort CV: no lower extremity edema ABD: Soft, Non-tender, Non-distended Back:No CVA tenderness, no sacral dimpling : exam defferred Musculoskelatal: patient in wheelchair Neuro: CN 2-12 grossly inta Pt is feeble but can stand with assistance. He speech is sometimes unintelligible and at other times it is remarkably creative but not anchored in reality. Labs: SODIUM S/P/B Date Value Ref Range Status 12/09/2023 136 136 - 145 MMOL/L Final POTASSIUM S/P/B Date Value Ref Range Status 12/09/2023 5.1 3.5 - 5.1 MMOL/L Final CHLORIDE S/P/B Date Value Ref Range Status 12/09/2023 100 98 - 107 MMOL/L Final CO2 Date Value Ref Range Status 12/09/2023 28.4 21.0 - 32.0 MMOL/L Final ANION GAP Date Value Ref Range Status 12/09/2023 7.6 5.0 - 15.0 MMOL/L Final BUN Date Value Ref Range Status 12/09/2023 49 (H) 6 - 24 MG/DL Final CREATININE S/P/B Date Value Ref Range Status 12/09/2023 1.47 (H) 0.70 - 1.30 MG/DL Final BUN CREATININE RATIO Date Value Ref Range Status 04/03/2017 23.5 (H) 12 - 20 Final EGFR NON-AFR. AMER. Date Value Ref Range Status 09/09/2022 89 90 Final EGFR AFR. AMER. Date Value Ref Range Status 03/13/2018 >90 >90 ML/MIN/1.73 M2 Final Comment: THE ESTIMATED GFR IS CALCULATED USING THE 2009 CKD-EPI EQUATION. THE FOLLOWING CATEGORIES FOR GRADING RENAL FUNCTION ARE RECOMMENDED BY THE INTERNATIONAL SOCIETY OF NEPHROLOGY (KDIGO 2012 CLINICAL PRACTICE GUIDELINE). G1,NORMAL OR HIGH: >89 ml/min/1.73 m2 G2,MILDLY DECREASED: 60-89 ml/min/1.73 m2 G3A,MILDLY TO MODERATELY DECREASED: 45-59 ml/min/1.73 m2 G3B,MODERATELY TO SEVERELY DECREASED: 30-44 ml/min/1.73 m2 G4,SEVERELY DECREASED: 15-29 ml/min/1.73 m2 G5,KIDNEY FAILURE: <15 ml/min/1.73 m2 GLUCOSE Date Value Ref Range Status 12/09/2023 198 (H) 70 - 99 MG/DL Final Comment: FASTING GLUCOSE 100 TO 125 MG/DL IS CONSISTENT WITH IMPAIRED FASTING GLUCOSE. FASTING GLUCOSE >125 MG/DL IS CONSISTENT WITH DIABETES. RANDOM GLUCOSE >200 MG/DL WITH HYPERGLYCEMIC SYMPTOMS IS CONSISTENT WITH DIABETES. PER ADA GUIDELINES CALCIUM S/P/B Date Value Ref Range Status 12/09/2023 8.6 8.4 - 10.5 MG/DL Final Recent Labs Lab 12/09/23 1358 WBC 10.50 RBC 3.53* HGB 9.6* HCT 30.8* MCV 87.3 MCH 27.2 MCHC 31.2* PLT 252 RDW 16.8* MPV 10.4 PERNEU 89.8 PERLYM 7.0 PERMON 2.1 PEREOS 0.4 PERBASO 0.2 NEUC 9.43* LYMC 0.74* MONOC 0.22 EOSC 0.04 BASOC 0.02 No components found for: UA No results found for this visit on 12/15/23 (from the past 8736 hour(s)). PSA Lab Results Component Value Date PSA 6.64 (H) 12/08/2023 Lab Results Component Value Date PSA 6.64 (H) 12/08/2023 Radiology: Results for orders placed or performed during the hospital encounter of 12/09/23 XR CHEST PORTABLE Narrative Examination: XR CHEST PORTABLE Exam time: 12/09/2023 2:26 PM Clinical history: Chest pain. Comparison: Chest from 07/27/2023. Technique: AP upright view the chest obtained. Findings: Allowing for technical factors, there is residual or recurrent predominantly interstitialopacities, more notable in the peripheral right mid and upper lung and both bases. Small effusions.Heart size and pulmonary vascular caliber is magnified. These likely reflect exacerbation of congestive heart failure/fluid overload or interstitial pneumonitis. Impression IMPRESSION: PROBABLE ACUTE CONGESTIVE HEART FAILURE/FLUID OVERLOAD AND/OR INTERSTITIAL PNEUMONITIS Ordered By: LARISSA VERONICA Interpreted By: Pernell Dawson MD, 12/09/2023 3:[address] ABD+PEL W IV CON ONLY Narrative Examination: CT ABD+PEL W CON Exam time: 12/09/2023 2:09 PM Clinical history: Abdominal pain. Comparison: CT abdomen and pelvis from November 27, 2023. Technique: CT of the abdomen and pelvis, from lung bases to the pubic symphysis, was performed. Coronal and sagittal reformatted images were created and reviewed. A dose lowering technique was used for this procedure, which may include, but is not limited to, dose reduction technique, automated exposure control, the use of iterative reconstruction, and ALARA (As Low As Reasonably Achievable) / Image Gently techniques. Findings: There is moderately dilated fluid-filled stomach and small bowel with air-fluid levels. This is dilated to the point of a short segment of mid jejunal bowel within a umbilical hernia. Dilated afferent and collapsed efferent limbs consistent with moderate grade partial small bowel obstruction secondary to the hernia. Mild bowel wall thickening with no bowel wall pneumatosis or free air. M inimal free fluid, most notable in the right paracolic gutter. No abscess. Moderate stool in normalcaliber colon and rectum. Colonic diverticula with no diverticulitis. No abdominal or pelvic adenopathy. Liver, spleen, gallbladder, pancreas, adrenal glands and kidneys are unremarkable. Urinary bladder is collapsed with Hill catheter balloon. There is diffuse thickening of the bladder wall, possibly related to collapse although trabecular hypertrophy or bladder wall thickening from an infectious or inflammatory bladder process is not excluded. Moderate prostate enlargement is again noted. Normal caliber abdominal aorta with mild atheromatous disease. Skeletal structures are grossly intact with mild spondylosis and pelvic arthritis. There is moderate chronic right hemidiaphragm elevation/eventration and multiple reticulonodular infiltrates, predominantly in the posterior right lower lobe. This is suspicious for superimposed pneumonitis. A few bilateral pulmonary nodules are also noted which appear similar to the prior exam. Impression IMPRESSION: MODERATE GRADE PARTIAL SMALL BOWEL OBSTRUCTION SECONDARY TO A SHORT SEGMENT OF MID JEJUNAL BOWEL AND FAT-CONTAINING UMBILICAL HERNIA. NO PNEUMATOSIS OR FREE AIR. MILD BOWEL WALL THICKENING AND FREE FLUID. COLONIC DIVERTICULA WITH NO DIVERTICULITIS. THICKENING OR PSEUDOTHICKENING OF THE COLLAPSED URINARY BLADDER. CORRELATION WITH URINALYSIS RECOMMENDED. MODERATE PROSTATE ENLARGEMENT. INTERVAL DEVELOPMENT OF NUMEROUS RETICULONODULAR TREE-IN-BUD OPACITIES IN THE POSTERIOR RIGHT LOWERLOBE, SUSPICIOUS FOR PNEUMONITIS. ADDITIONAL STABLE BILATERAL CALCIFIED NONCALCIFIED PULMONARY NODULES. Ordered By: LARISSA VERONICA Interpreted By: Pernell Dawson MD, 12/09/2023 2:[address] ABD+PEL WO CON Narrative Examination: CT ABD+PEL WO CON Exam time: 12/09/2023 2:56 PM Clinical history: Hernia reduced. Comparison: Contrast CT abdomen and pelvis from earlier today. Technique: Noncontrast CT of the abdomen and pelvis, from lung bases to the pubic symphysis, was performed. Coronal and sagittal reformatted images were created and reviewed. A dose lowering technique was used for this procedure, which may include, but is not limited to, dose reduction technique, automated exposure control, the use of iterative reconstruction, and ALARA (As Low As Reasonably Achievable) / Image Gently techniques. Findings: Interval reduction of the short segment of jejunum containing umbilical hernia. Small residual fat-containing umbilical hernia noted. There is persistent mildly dilated stomach and small bowel proximal to the hernia. No significant bowel wall pneumatosis or free air. Small amount of free fluid and diffuse anasarca. No change in the moderate colonic stool burden. Colonic diverticula withno diverticulitis. Thickening or pseudothickening of the collapsed urinary bladder. Moderate prostate enlargement. Liver, spleen, gallbladder, pancreas, adrenal glands and kidneys are unremarkable. Contrast in the normal appearing normal caliber ureters. Scattered nonenlarged lymph nodes. Normal caliber abdominal aorta and branch vessels. Reticulonodular tree-in-bud infiltrates in the right base again noted. Impression IMPRESSION: INTERVAL REDUCTION OF THE FAT AND SHORT SEGMENT OF SMALL BOWEL CONTAINING UMBILICAL HERNIA. PERSISTENT MILDLY DILATED SMALL BOWEL WITH SMALL AMOUNT OF FREE FLUID AND DIFFUSE ANASARCA. NO PNEUMATOSIS OR FREE AIR. MODERATE COLONIC STOOL. COLONIC DIVERTICULA WITH NO DIVERTICULITIS. THICKENING OR SOME THICKENING OF THE COLLAPSED URINARY BLADDER. MODERATE PROSTATE ENLARGEMENT. PERSISTENT RETICULONODULAR TREE-IN-BUD INFILTRATES IN THE RIGHT BASE, SUSPICIOUS FOR PNEUMONITIS. Ordered By: LARISSA VERONICA Interpreted By: Pernell Dawson MD, 12/09/2023 3:26 PM No results found for this or any previous visit. Results for orders placed during the hospital encounter of 12/09/23 CT ABD+PEL WO CON Narrative Examination: CT ABD+PEL WO CON Exam time: 12/09/2023 2:56 PM Clinical history: Hernia reduced. Comparison: Contrast CT abdomen and pelvis from earlier today. Technique: Noncontrast CT of the abdomen and pelvis, from lung bases to the pubic symphysis, was performed. Coronal and sagittal reformatted images were created and reviewed. A dose lowering technique was used for this procedure, which may include, but is not limited to, dose reduction technique, automated exposure control, the use of iterative reconstruction, and ALARA (As Low As Reasonably Achievable) / Image Gently techniques. Findings: Interval reduction of the short segment of jejunum containing umbilical hernia. Small residual fat-containing umbilical hernia noted. There is persistent mildly dilated stomach and small bowel proximal to the hernia. No significant bowel wall pneumatosis or free air. Small amount of free fluid and diffuse anasarca. No change in the moderate colonic stool burden. Colonic diverticula withno diverticulitis. Thickening or pseudothickening of the collapsed urinary bladder. Moderate prostate enlargement. Liver, spleen, gallbladder, pancreas, adrenal glands and kidneys are unremarkable. Contrast in the normal appearing normal caliber ureters. Scattered nonenlarged lymph nodes. Normal caliber abdominal aorta and branch vessels. Reticulonodular tree-in-bud infiltrates in the right base again noted. IMPRESSION: INTERVAL REDUCTION OF THE FAT AND SHORT SEGMENT OF SMALL BOWEL CONTAINING UMBILICAL HERNIA. PERSISTENT MILDLY DILATED SMALL BOWEL WITH SMALL AMOUNT OF FREE FLUID AND DIFFUSE ANASARCA. NO PNEUMATOSIS OR FREE AIR. MODERATE COLONIC STOOL. COLONIC DIVERTICULA WITH NO DIVERTICULITIS. THICKENING OR SOME THICKENING OF THE COLLAPSED URINARY BLADDER. MODERATE PROSTATE ENLARGEMENT. PERSISTENT RETICULONODULAR TREE-IN-BUD INFILTRATES IN THE RIGHT BASE, SUSPICIOUS FOR PNEUMONITIS. Ordered By: LARISSA VERONICA Interpreted By: Pernell Dawson MD, 12/09/2023 3:26 PM No results found for this or any previous visit. No results found for this or any previous visit. No results found for this or any previous visit. Assessment: Retention with bilateral hydro . Better with hill Abdominal pains generated the ER visit but he still has the same bilateral intermittent abdominal pains a week later even with an empty bladder. PSA is about right for someone in this age group with a hill No family member is present and no one is volunteering to do intermittent cath for him. Plan: Cysto and voiding trial Safest plan is to keep the hill in salvage determiner while in the [place] Not a good surgical candidate but if family wants to go to [facility] the [facility] faculty might be more broadminded. YANNA HASTINGS III, MD 12/09/2023 * Yanna Hastings III, MD - 12/09/2023 6:00 PM CDT Consults Attending Provider: Yanna Hastings III, MD PCP: ABDON MENDOZA MD Annie Crocker is an 78-year-old male. Reason for Admission: Demented NHP presented to [facility] ER with abdominal pains . CT revealed a huge bladder and hydronephrosis but his voiding sxs were minimal. A catheter was placed and 2000 cc drained. Abdominal pains persist. No other intra abdominal pathology seen. Pt is not bothered by the hill so far and his renal function has improved with catheter drainage. At present he is satisfied with this but because he still has abdominal pains he may still need further scrutiny by his medical team. His only c/o about the catheter is his belief that it contains a poison which kills sheep and cows Nursing staff noted he has become aggressive and angry at times so If he can void at the time of cysto today we will leave the hill out. If he cannot empty well then I recommend salvage determiner hill while under supervision at the [place] Reason for Consult: Requested by Yanna Hastings III, MD Past Medical History: Diagnosis Date ??? A-fib ([facility]) ??? BPH (benign prostatic hyperplasia) ??? CHF (congestive heart failure) ([facility]) ??? Coronary artery disease ??? Dementia without behavioral disturbance ([facility]) ??? Diabetes mellitus ([facility]) ??? Disorder of prostate ??? HLD (hyperlipidemia) ??? Hyperlipidemia ??? Hypertension ??? Pacemaker 09/10/2022 ??? Respiratory failure ([facility]) ??? Sick sinus syndrome ([facility]) ??? Urinary retention Allergies: No Known Allergies Social History Tobacco Use ??? Smoking status: Former Current packs/day: 0.00 Average packs/day: 1 pack/day for 29.6 years (29.6 ttl pk-yrs) Types: Cigarettes, Pipe Start date: 02/14/1966 Quit date: 10/07/1995 Years since quittin.1 ??? Smokeless tobacco: Never Substance Use Topics ??? Alcohol use: No Past Surgical History: Procedure Laterality Date ??? CORONARY ART DIL,ONE VESSEL 2010 ??? INSER COBIAN PACER XVENOUS ATRIAL 05/04/2013 ??? PACEMAKER Family History Problem Relation Name Age of Onset ??? Heart Attack Mother No current facility-administered medications on file prior to encounter. Current Outpatient Medications on File Prior to Encounter Medication Sig ??? acetaminophen (TYLENOL) 500 MG tablet Take 2 tablets (1,000 mg total) by mouth every 6 (six) hours as needed for Pain. ??? apixaban (ELIQUIS) 5 MG tablet Take 1 tablet (5 mg total) by mouth 2 (two) times daily. ??? atorvastatin (LIPITOR) 80 MG tablet Take 1 tablet (80 mg total) by mouth nightly at bedtime. ??? carvedilol (COREG) 6.25 MG tablet Take 1 tablet (6.25 mg total) by mouth 2 (two) times daily. ??? ferrous sulfate EC 325 (65 Fe) MG tablet Take 1 tablet by mouth daily. ??? furosemide (LASIX) 40 MG tablet Take 1 tablet (40 mg total) by mouth daily. ??? lisinopril (PRINIVIL) 40 MG tablet Take 10 mg by mouth daily. ??? magnesium oxide 400 (241.3 Mg) MG tablet Take 1 tablet (400 mg total) by mouth daily. ??? metFORMIN 1000 MG tablet Take 1 tablet (1,000 mg total) by mouth 2 (two) times daily. ??? nitroglycerin (NITROSTAT) 0.[address] 1 tablet (0.4 mg total) under the tongue every5 (five) minutes as needed for Chest Pain. ??? polyethylene glycol powder Take 17 g by mouth daily as needed (constipation). ??? potassium chloride CR (KLOR-CON M) 20 MEQ tablet Take 1 tablet (20 mEq total) by mouth daily. ??? tamsulosin (FLOMAX) 0.4 MG Cap Take 1 capsule (0.4 mg total) by mouth daily. ??? vitamin B-12 1000 MCG tablet Take 1 tablet (1,000 mcg total) by mouth daily. No current facility-administered medications for this encounter. Current Outpatient Medications: ??? acetaminophen (TYLENOL) 500 MG tablet, Take 2 tablets (1,000 mg total) by mouth every 6 (six) hours as needed for Pain., Disp: , Rfl: ??? apixaban (ELIQUIS) 5 MG tablet, Take 1 tablet (5 mg total) by mouth 2 (two) times daily., Disp:60 tablet, Rfl: 5 ??? atorvastatin (LIPITOR) 80 MG tablet, Take 1 tablet (80 mg total) by mouth nightly at bedtime., Disp: , Rfl: ??? carvedilol (COREG) 6.25 MG tablet, Take 1 tablet (6.25 mg total) by mouth 2 (two) times daily.,Disp: 60 tablet, Rfl: 0 ??? ciprofloxacin (CIPRO) 500 MG tablet, Take 1 tablet (500 mg total) by mouth 2 (two) times daily for 7 days., Disp: 14 tablet, Rfl: 0 ??? ferrous sulfate EC 325 (65 Fe) MG tablet, Take 1 tablet by mouth daily., Disp: , Rfl: ??? finasteride (PROSCAR) 5 MG tablet, Take 1 tablet (5 mg total) by mouth daily., Disp: , Rfl: ??? furosemide (LASIX) 40 MG tablet, Take 1 tablet (40 mg total) by mouth daily., Disp: 30 tablet, Rfl: 0 ??? lisinopril (PRINIVIL) 40 MG tablet, Take 10 mg by mouth daily., Disp: , Rfl: ??? loperamide (IMODIUM) 2 MG capsule, Take 1 capsule (2 mg total) by mouth 4 (four) times daily asneeded for Diarrhea., Disp: , Rfl: ??? magnesium oxide 400 (241.3 Mg) MG tablet, Take 1 tablet (400 mg total) by mouth daily., Disp: ,Rfl: ??? metFORMIN 1000 MG tablet, Take 1 tablet (1,000 mg total) by mouth 2 (two) times daily., Disp: ,Rfl: ??? nitroglycerin (NITROSTAT) 0.4 MG SL tablet, Place 1 tablet (0.4 mg total) under the tongue every 5 (five) minutes as needed for Chest Pain., Disp: , Rfl: ??? polyethylene glycol powder, Take 17 g by mouth daily as needed (constipation)., Disp: , Rfl: ??? potassium chloride CR (KLOR-CON M) 20 MEQ tablet, Take 1 tablet (20 mEq total) by mouth daily.,Disp: 60 tablet, Rfl: 0 ??? tamsulosin (FLOMAX) 0.4 MG Cap, Take 1 capsule (0.4 mg total) by mouth daily., Disp: 30 capsule, Rfl: 0 ??? vitamin B-12 1000 MCG tablet, Take 1 tablet (1,000 mcg total) by mouth daily., Disp: , Rfl: Active Problems: * No active hospital problems. * ROS Prostate Physical Exam Constitutional: He appears well-developed. HENT: Head: Normocephalic. Right Ear: External ear normal. Left Ear: External ear normal. Nose: Nose normal. Eyes: EOM are normal. Pulmonary/Chest: Effort normal. Abdominal: Soft. Genitourinary: Rectum normal and penis normal. Psychiatric: He has a normal mood and affect. There were no vitals taken for this visit. Physical Exam GEN: Alert and oriented HEENT: AT and NC LUNGS: unlabored respiratory effort CV: no lower extremity edema ABD: Soft, Non-tender, Non-distended Back:No CVA tenderness, no sacral dimpling : exam defferred Musculoskelatal: patient in wheelchair Neuro: CN 2-12 grossly inta Pt is feeble but can stand with assistance. He speech is sometimes unintelligible and at other times it is remarkably creative but not anchored in reality. Labs: SODIUM S/P/B Date Value Ref Range Status 12/09/2023 136 136 - 145 MMOL/L Final POTASSIUM S/P/B Date Value Ref Range Status 12/09/2023 5.1 3.5 - 5.1 MMOL/L Final CHLORIDE S/P/B Date Value Ref Range Status 12/09/2023 100 98 - 107 MMOL/L Final CO2 Date Value Ref Range Status 12/09/2023 28.4 21.0 - 32.0 MMOL/L Final ANION GAP Date Value Ref Range Status 12/09/2023 7.6 5.0 - 15.0 MMOL/L Final BUN Date Value Ref Range Status 12/09/2023 49 (H) 6 - 24 MG/DL Final CREATININE S/P/B Date Value Ref Range Status 12/09/2023 1.47 (H) 0.70 - 1.30 MG/DL Final BUN CREATININE RATIO Date Value Ref Range Status 04/03/2017 23.5 (H) 12 - 20 Final EGFR NON-AFR. AMER. Date Value Ref Range Status 09/09/2022 89 90 Final EGFR AFR. AMER. Date Value Ref Range Status 03/13/2018 >90 >90 ML/MIN/1.73 M2 Final Comment: THE ESTIMATED GFR IS CALCULATED USING THE 2009 CKD-EPI EQUATION. THE FOLLOWING CATEGORIES FOR GRADING RENAL FUNCTION ARE RECOMMENDED BY THE INTERNATIONAL SOCIETY OF NEPHROLOGY (KDIGO 2012 CLINICAL PRACTICE GUIDELINE). G1,NORMAL OR HIGH: >89 ml/min/1.73 m2 G2,MILDLY DECREASED: 60-89 ml/min/1.73 m2 G3A,MILDLY TO MODERATELY DECREASED: 45-59 ml/min/1.73 m2 G3B,MODERATELY TO SEVERELY DECREASED: 30-44 ml/min/1.73 m2 G4,SEVERELY DECREASED: 15-29 ml/min/1.73 m2 G5,KIDNEY FAILURE: <15 ml/min/1.73 m2 GLUCOSE Date Value Ref Range Status 12/09/2023 198 (H) 70 - 99 MG/DL Final Comment: FASTING GLUCOSE 100 TO 125 MG/DL IS CONSISTENT WITH IMPAIRED FASTING GLUCOSE. FASTING GLUCOSE >125 MG/DL IS CONSISTENT WITH DIABETES. RANDOM GLUCOSE >200 MG/DL WITH HYPERGLYCEMIC SYMPTOMS IS CONSISTENT WITH DIABETES. PER ADA GUIDELINES CALCIUM S/P/B Date Value Ref Range Status 12/09/2023 8.6 8.4 - 10.5 MG/DL Final Recent Labs Lab 12/09/23 1358 WBC 10.50 RBC 3.53* HGB 9.6* HCT 30.8* MCV 87.3 MCH 27.2 MCHC 31.2* PLT 252 RDW 16.8* MPV 10.4 PERNEU 89.8 PERLYM 7.0 PERMON 2.1 PEREOS 0.4 PERBASO 0.2 NEUC 9.43* LYMC 0.74* MONOC 0.22 EOSC 0.04 BASOC 0.02 No components found for: UA No results found for this visit on 12/15/23 (from the past 8736 hour(s)). PSA Lab Results Component Value Date PSA 6.64 (H) 12/08/2023 Lab Results Component Value Date PSA 6.64 (H) 12/08/2023 Radiology: Results for orders placed or performed during the hospital encounter of 12/09/23 XR CHEST PORTABLE Narrative Examination: XR CHEST PORTABLE Exam time: 12/09/2023 2:26 PM Clinical history: Chest pain. Comparison: Chest from 07/27/2023. Technique: AP upright view the chest obtained. Findings: Allowing for technical factors, there is residual or recurrent predominantly interstitialopacities, more notable in the peripheral right mid and upper lung and both bases. Small effusions.Heart size and pulmonary vascular caliber is magnified. These likely reflect exacerbation of congestive heart failure/fluid overload or interstitial pneumonitis. Impression IMPRESSION: PROBABLE ACUTE CONGESTIVE HEART FAILURE/FLUID OVERLOAD AND/OR INTERSTITIAL PNEUMONITIS Ordered By: LARISSA VERONICA Interpreted By: Pernell Dawson MD, 12/09/2023 3:[address] ABD+PEL W IV CON ONLY Narrative Examination: CT ABD+PEL W CON Exam time: 12/09/2023 2:09 PM Clinical history: Abdominal pain. Comparison: CT abdomen and pelvis from November 27, 2023. Technique: CT of the abdomen and pelvis, from lung bases to the pubic symphysis, was performed. Coronal and sagittal reformatted images were created and reviewed. A dose lowering technique was used for this procedure, which may include, but is not limited to, dose reduction technique, automated exposure control, the use of iterative reconstruction, and ALARA (As Low As Reasonably Achievable) / Image Gently techniques. Findings: There is moderately dilated fluid-filled stomach and small bowel with air-fluid levels. This is dilated to the point of a short segment of mid jejunal bowel within a umbilical hernia. Dilated afferent and collapsed efferent limbs consistent with moderate grade partial small bowel obstruction secondary to the hernia. Mild bowel wall thickening with no bowel wall pneumatosis or free air. M inimal free fluid, most notable in the right paracolic gutter. No abscess. Moderate stool in normalcaliber colon and rectum. Colonic diverticula with no diverticulitis. No abdominal or pelvic adenopathy. Liver, spleen, gallbladder, pancreas, adrenal glands and kidneys are unremarkable. Urinary bladder is collapsed with Hill catheter balloon. There is diffuse thickening of the bladder wall, possibly related to collapse although trabecular hypertrophy or bladder wall thickening from an infectious or inflammatory bladder process is not excluded. Moderate prostate enlargement is again noted. Normal caliber abdominal aorta with mild atheromatous disease. Skeletal structures are grossly intact with mild spondylosis and pelvic arthritis. There is moderate chronic right hemidiaphragm elevation/eventration and multiple reticulonodular infiltrates, predominantly in the posterior right lower lobe. This is suspicious for superimposed pneumonitis. A few bilateral pulmonary nodules are also noted which appear similar to the prior exam. Impression IMPRESSION: MODERATE GRADE PARTIAL SMALL BOWEL OBSTRUCTION SECONDARY TO A SHORT SEGMENT OF MID JEJUNAL BOWEL AND FAT-CONTAINING UMBILICAL HERNIA. NO PNEUMATOSIS OR FREE AIR. MILD BOWEL WALL THICKENING AND FREE FLUID. COLONIC DIVERTICULA WITH NO DIVERTICULITIS. THICKENING OR PSEUDOTHICKENING OF THE COLLAPSED URINARY BLADDER. CORRELATION WITH URINALYSIS RECOMMENDED. MODERATE PROSTATE ENLARGEMENT. INTERVAL DEVELOPMENT OF NUMEROUS RETICULONODULAR TREE-IN-BUD OPACITIES IN THE POSTERIOR RIGHT LOWERLOBE, SUSPICIOUS FOR PNEUMONITIS. ADDITIONAL STABLE BILATERAL CALCIFIED NONCALCIFIED PULMONARY NODULES. Ordered By: LARISSA VERONICA Interpreted By: Pernell Dawson MD, 12/09/2023 2:[address] ABD+PEL WO CON Narrative Examination: CT ABD+PEL WO CON Exam time: 12/09/2023 2:56 PM Clinical history: Hernia reduced. Comparison: Contrast CT abdomen and pelvis from earlier today. Technique: Noncontrast CT of the abdomen and pelvis, from lung bases to the pubic symphysis, was performed. Coronal and sagittal reformatted images were created and reviewed. A dose lowering technique was used for this procedure, which may include, but is not limited to, dose reduction technique, automated exposure control, the use of iterative reconstruction, and ALARA (As Low As Reasonably Achievable) / Image Gently techniques. Findings: Interval reduction of the short segment of jejunum containing umbilical hernia. Small residual fat-containing umbilical hernia noted. There is persistent mildly dilated stomach and small bowel proximal to the hernia. No significant bowel wall pneumatosis or free air. Small amount of free fluid and diffuse anasarca. No change in the moderate colonic stool burden. Colonic diverticula withno diverticulitis. Thickening or pseudothickening of the collapsed urinary bladder. Moderate prostate enlargement. Liver, spleen, gallbladder, pancreas, adrenal glands and kidneys are unremarkable. Contrast in the normal appearing normal caliber ureters. Scattered nonenlarged lymph nodes. Normal caliber abdominal aorta and branch vessels. Reticulonodular tree-in-bud infiltrates in the right base again noted. Impression IMPRESSION: INTERVAL REDUCTION OF THE FAT AND SHORT SEGMENT OF SMALL BOWEL CONTAINING UMBILICAL HERNIA. PERSISTENT MILDLY DILATED SMALL BOWEL WITH SMALL AMOUNT OF FREE FLUID AND DIFFUSE ANASARCA. NO PNEUMATOSIS OR FREE AIR. MODERATE COLONIC STOOL. COLONIC DIVERTICULA WITH NO DIVERTICULITIS. THICKENING OR SOME THICKENING OF THE COLLAPSED URINARY BLADDER. MODERATE PROSTATE ENLARGEMENT. PERSISTENT RETICULONODULAR TREE-IN-BUD INFILTRATES IN THE RIGHT BASE, SUSPICIOUS FOR PNEUMONITIS. Ordered By: LARISSA VERONICA Interpreted By: Pernell Dawson MD, 12/09/2023 3:26 PM No results found for this or any previous visit. Results for orders placed during the hospital encounter of 12/09/23 CT ABD+PEL WO CON Narrative Examination: CT ABD+PEL WO CON Exam time: 12/09/2023 2:56 PM Clinical history: Hernia reduced. Comparison: Contrast CT abdomen and pelvis from earlier today. Technique: Noncontrast CT of the abdomen and pelvis, from lung bases to the pubic symphysis, was performed. Coronal and sagittal reformatted images were created and reviewed. A dose lowering technique was used for this procedure, which may include, but is not limited to, dose reduction technique, automated exposure control, the use of iterative reconstruction, and ALARA (As Low As Reasonably Achievable) / Image Gently techniques. Findings: Interval reduction of the short segment of jejunum containing umbilical hernia. Small residual fat-containing umbilical hernia noted. There is persistent mildly dilated stomach and small bowel proximal to the hernia. No significant bowel wall pneumatosis or free air. Small amount of free fluid and diffuse anasarca. No change in the moderate colonic stool burden. Colonic diverticula withno diverticulitis. Thickening or pseudothickening of the collapsed urinary bladder. Moderate prostate enlargement. Liver, spleen, gallbladder, pancreas, adrenal glands and kidneys are unremarkable. Contrast in the normal appearing normal caliber ureters. Scattered nonenlarged lymph nodes. Normal caliber abdominal aorta and branch vessels. Reticulonodular tree-in-bud infiltrates in the right base again noted. IMPRESSION: INTERVAL REDUCTION OF THE FAT AND SHORT SEGMENT OF SMALL BOWEL CONTAINING UMBILICAL HERNIA. PERSISTENT MILDLY DILATED SMALL BOWEL WITH SMALL AMOUNT OF FREE FLUID AND DIFFUSE ANASARCA. NO PNEUMATOSIS OR FREE AIR. MODERATE COLONIC STOOL. COLONIC DIVERTICULA WITH NO DIVERTICULITIS. THICKENING OR SOME THICKENING OF THE COLLAPSED URINARY BLADDER. MODERATE PROSTATE ENLARGEMENT. PERSISTENT RETICULONODULAR TREE-IN-BUD INFILTRATES IN THE RIGHT BASE, SUSPICIOUS FOR PNEUMONITIS. Ordered By: LARISSA VERONICA Interpreted By: Pernell Dawson MD, 12/09/2023 3:26 PM No results found for this or any previous visit. No results found for this or any previous visit. No results found for this or any previous visit. Assessment: Retention with bilateral hydro . Better with hill Abdominal pains generated the ER visit but he still has the same bilateral intermittent abdominal pains a week later even with an empty bladder. PSA is about right for someone in this age group with a hill No family member is present and no one is volunteering to do intermittent cath for him. Plan: Cysto and voiding trial Safest plan is to keep the hill in detention while in the [place] Not a good surgical candidate but if family wants to go to [facility] the [facility] faculty might be more broadminded. YANNA HASTINGS III, MD 12/09/2023 documented in this encounter OR Notes * Brief Op Note - Yanna Hastings III, MD - 12/15/2023 7:52 AM CDT [facility] Brief Op HSHSCYSTOSCOPY FLEXIBLE Procedure Note Annie Crocker 12/15/2023 0748 Procedure(s) (LRB): CYSTOSCOPY FLEXIBLE (N/A) Surgeon(s): Yanna Hastings III, MD President Of The [place]: None Anesthesia: Local Pre-Op Diagnosis: BPH W/ LUTS N40.1 Post-Op Diagnosis: Same Findings: Ball valving median lobe, small amount of lateral tissue Unable to void in time period allowed in the OR Estimated Blood Loss: Minimal Specimens: None YANNA HASTINGS III, MD Date: 12/15/2023 Time: 7:52 AM * Op Note - Yanna Hastings III, MD - 12/15/2023 12:00 AM CDT Patient Name: ANNIE CROCKER Date of : 1945 Account: [id number] Facility: [facility] Location: [facility] Date of Service: 12/15/2023 Operative Note INDICATIONS FOR PROCEDURE: Mr. Crocker recently was in the emergency room with abdominal pain. Theyplaced a catheter when they saw that his bladder was very full. He did have bilateral hydro with 2000 mL in his bladder. He related last week that his upper abdominal pain was still present, but today he says it has stopped. We removed his catheter for voiding trial today. However, my suspicion is he still will not be able to void. He does not have any family that visits him he says and there is no one at the longterm who will be able to do intermittent catheterizations on him at the frequency required. We will try to see if he can void for a little bit longer today, but if he cannot, we will simply replace the Hill and he should have it changed monthly. DESCRIPTION OF PROCEDURE: After obtaining informed consent, the patient was taken to the operating room where he was placed in the supine position. Hill catheter was removed. He was prepped and draped in the usual sterile fashion. Cystourethroscopy was then carried out under local anesthesia. The urethra appeared normal. There was no irritation in the prostate. There was minimal lateral lobe hypertrophy; however, it did appear that he had a significant ball- valving median lobe that was probably about 5 gram size. The remainder of the bladder did not appear very heavily trabeculated. It did not appear irritated. It did not have the normal hemorrhagic appearance of an acutely decompressed jarad dder and there was no catheter reaction on the back wall. There were no tumors or foreign bodies. The scope was then withdrawn after filling the bladder to capacity, which he felt was about 400 mL, at which point we were unable to get any more fluid to go out of the bag into his bladder. I suspect that he has a poorly compliant bladder and it may be best just to leave the Hill in long-term. Signature/Date: YANNA HASTINGS III #[id number] /ALLIE documented in this encounter Plan of Treatment Upcoming Encounters Date Type Department Care Team (Latest Contact Info) Description 06/09/2024 2:20 PM CAR CHASER Telemedicine [facility] [address] [place] [address] Earnest Drake MD [address] [place] [address] 06/21/2024 1:30 AM CAR CHASER [facility] [address] [place] [phone] Madan Palomo MD [address] [place] [address] 03/01/2025 11:00 AM CDT Allied Health/Nurse Visit [facility] [place] [address] Norma Rowland PA-C [address] [place] [address] 03/01/2025 11:00 AM CDT Office Visit [facility] [address] [place] [address] Norma Rowland PA-C [address] [place] [address] documented as of this encounter Procedures Procedure Name Priority Date/Time Associated Diagnosis Comments CYSTOURETHROSCOPY 12/15/2023 7:26 AM CDT Benign localized prostatic hyperplasia with lower urinary tract symptoms (LUTS) documented in this encounter Visit Diagnoses Diagnosis Benign localized prostatic hyperplasia with lower urinary tract symptoms (LUTS) Benign localized hyperplasia of prostate with urinary obstruction and other lower urinary tract symptoms (LUTS) documented in this encounter Administered Medications Inactive Administered Medications - up to 3 most recent administrations Medication Order MAR Action Action Date Dose Rate Site lidocaine 2 % URO-JET jelly As needed, Starting on Thu12/15/23 at 0746, Until Thu12/15/23 at 0753, Intra-Op Given 12/15/2023 7:46 AM CDT 1 Application. documented in this encounter Active and Recently Administered Medications Times are shown in CDT. Scheduled Medication Order 12/13/2023 12/14/2023 12/15/2023 nitrofurantoin (macrocrystal-monohydrate) (MACROBID) capsule 100 mg 100 mg, Oral, Once, 1 dose, On Thu12/15/23 at 0830 0830 (Canceled Entry - Provider: Automatic Discharge Provider - Comment: Automatically canceled at discontinue of medication order) PRN Medication Order 12/13/2023 12/14/2023 12/15/2023 lidocaine 2 % URO-JET jelly (CANCELED) As needed, Starting on Thu12/15/23 at 0746, Until Thu12/15/23 at 0753, Intra-Op 0746 (Given - Provid er: Yanna Hastings III, MD) documented in this encounter Care Teams Machining Supervisor Relationship Specialty Start Date End Date Abdon Mendoza MD [address] [place] [phone] PCP - General FAMILY PRACTICE 12/17/15 Pernell Vance MD [address] [place] [address] Consulting Physician CARDIOVASCULAR DISEASE 07/05/1901/30 Kamilla Oliveira NP [address] [place] [address] Referring Physician Nurse Practitioner Family 10/08/2104/14 Madan Palomo MD [address] [place] [address] Hogger Operator CLINICAL CARDIAC ELECTROPHYSIOLOGY 10/08/21 documented as of this encounter
--- OUTSIDE RECORDS SUMMARY | 2024-06-08 06:08 | XMS_ITS | Encounter Summary ---
Author Organization [facility] Address Formerly [facility] [place] [address] [place] [address] Care Team Providers Care Log Yard Derrick Operator Name Role Phone Abdon Villela MD Primary Care Provider [phone] Madan Palomo MD Unavailable [phone] Norma Rowland PA-C Unavailable + [phone] Encounter Details Date Type Department Care Team (Latest Contact Info) Description 03/02/2024 9:21 AM CDT - 03/02/2024 11:59 PM T Hospital Encounter [facility] [address] [facility] [place] [address] Madan Palomo MD [address] [place] [address] Discharge Disposition: Home or Self Care (Routine Discharge) Social History Tobacco Use Types Packs/Day Years Used Date Smoking Tobacco: Former Cigarettes 1 29.6 0 02/14/1966 - 10/07/1995 Pipe Smokeless Tobacco: Never Alcohol Use Standard Drinks/Week Comments No 0 (1 standard drink = 0.6 oz pur e alcohol) [facility] Utilities Answer Date Recorded In the past [...] Never 07/27/2023 How often do you attend sabianist or episcopal serv ices? Never 07/27/2023 Do you belong to any clubs o r organizations such as sabianist groups, unions, fraternal or athletic groups, or [...] and heating? Not hard at all 07/27/2023 [facility] [place] of Occupat ional Health - Occupational Stress [...] place to sleep or slept in a nursing home (including now)? No 07/27/2023 Sex and Gender [...] Assessment Author Status No 07/27/2023 10:44 AM COATING MACHINE FEEDER Zamzam Zavala R N Active * Are you blind or do you have serious difficulty seeing, even when wearing glasses? Answer Date of Assessment Author Status No 07/27/2023 10:44 AM COATING MACHINE FEEDER Olga Zavalayl A R N Active * Do you have serious difficulty walking or climbing stairs? Answer Date of Assessment Author Status Yes 07/27/2023 10:44 AM COATING MACHINE FEEDER Zamzam Zavala A R N Active * Do you have difficulty dressing or bathing? Answer Date of Assessment Author Status Yes 07/27/2023 10:44 AM COATING MACHINE FEEDER Olga Zavalayl A R N Active * Because of [...] (Latest Contact Info) Description 06/09/2024 2:20 PM COATING MACHINE FEEDER Telemedicine [facility] [address] [place] [phone] Earnest Drake MD [address] [place], [place] [phone] 06/21/2024 1:30 AM COATING MACHINE FEEDER Allied Health/Nurse Visit [facility] [address] [place] [address] Madan Palomo MD [address] [place], [place] [address] 03/01/2025 11:00 AM CDT Allied Health/Nurse Visit [facility] [place] [address] [place] [address] Norma Rowland PA-C [address] [place], [place] [address] 03/01/2025 11:00 AM CDT Office Visit [facility] [place] [place] [address] Norma Rowland PA-C [address] [place], [place] [address] [phone] documented as of this encounter Procedures Procedure Name Priority Date/Time Associated Diagnosis Comments ECG 12-LEAD Routine 03/02/2024 9:50 AM CDT Cardiac pacemaker in situ Chronic atrial fibrillation (CMS/HCC [facility]/HCC) documented in this encounter Results * ECG 12 lead (HOSPITAL PERFORMED ONLY) (03/02/2024 9:50 AM CDT) 03/02/2024 9:50 AM CDT Narrative [facility] - 03/02/2024 2:26 PM CDT ? [facility] ?[address] [place], [place] ??[address] ? Test Date: ?2024-03-02 Pat Name: ? AVILA FERNANDEZ ?Department: ?? 3 ? Room: ? Gender: ? Male ? Primer Charger: ?? : ?1945 ? Requested By: MADAN PALOMO Order Number: [id number] ? Reading MD: ?? Madan Palomo ? Measurements Intervals ?[place] ? Rate: ? 61 ? P: ? GA: ? 0 ?QRS: ?267 QRSD: ? 159 ?T: ?86 QT: ? 495 ? QTc: ?500 ? Interpretive Statements ELECTRONIC VENTRICULAR PACEMAKER ABNORMAL RHYTHM ECG Procedure Note Madan Palomo MD - 03/02/[address] [place] [address] Test Date: 2024-03-02 Pat Name: AVILA DE JESUSCHER Department: 3 Room: Gender: Male Primer Charger: : 1945 Requested By: MADAN PALOMO Order Number: [id number] Reading MD: Madan Palomo Measurements Intervals [place] Rate: 61 P: GA: 0 QRS: 267 QRSD: 159 T: 86 QT: 495 QTc: 500 Interpretive Statements ELECTRONIC VENTRICULAR PACEMAKER ABNORMAL RHYTHM ECG us Madan Palomo MD ECG ORDERABLES Final Res ult [facility] documented in this encounter Visit Diagnoses Diagnosis Chronic atrial fibrillation (CMS/HCC HHS/HCC)- Primary Atrial fibrillation Cardiac pacemaker in situ Chronic atrial fibrillation (CMS/HCC HHS/HCC) Atrial fibrillation documented in this encounter Care Teams Log Yard Derrick Operator Relationship Specialty Start Date End Date Abdon Villela MD [address] [place] [address] PCP - General FAMILY PRACTICE 12/17/15 Madan Palomo MD [address] [place] [address] EP Biometrics Consultant CLINICAL CARDIAC ELECTROPHYSIOLOGY 10/08/21 Norma Rowland PA-C [address] [place], [place] [address] Referring Physician PHYSICIAN TUMBLING INSTRUCTOR 12/31/23 documented as of this encounter
--- OUTSIDE RECORDS SUMMARY | 2024-06-08 06:08 | XMS_ITS | Encounter Summary ---
Author Organization [facility] Address [facility] [facility] [place] [address] [place] [address] Care Team Providers Care Truck Repair Supervisor Name Role Phone Abdon Villela MD Primary Care Provider [phone] Pernell Vance MD Unavailable UnavailKamilla Lazaro NP Unavailable Unavailable Madan Palomo MD Unavailable [phone] Encounter Details Date Type Department Care Team (Latest Contact Info) Description 12/16/2023 Travel Social History Tobacco Use Types Packs/Day Years Used Date Smoking Tobacco: Former Cigarettes 1 29.6 0 02/14/1966 - 10/07/1995 Pipe Smokeless Tobacco: Never Alcohol Use Standard Drinks/Week Comments No 0 (1 standard drink = 0.6 oz pur e alcohol) [facility] Utilities Answer Date Recorded In the past 12 months has [facility], gas, oil, or water [employer] threatened to shut off services in your [...] Never 07/27/2023 How often do you attend christianity or sikh serv ices? Never 07/27/2023 Do you belong to any clubs o r organizations such as christianity groups, unions, fraternal or athletic groups, or [...] and heating? Not hard at all 07/27/2023 [facility] - Occupational Stress Questionnaire Answer Date [...] Assessment Author Status No 07/27/2023 10:44 AM PMO CONSULTANT Zamzam Zavala R N Active * Are you blind or do you have serious difficulty seeing, even when wearing glasses? Answer Date of Assessment Author Status No 07/27/2023 10:44 AM PMO CONSULTANT Olga Zavalayl A R N Active * Do you have serious difficulty walking or climbing stairs? Answer Date of Assessment Author Status Yes 07/27/2023 10:44 AM PMO CONSULTANT Olga Zavalayl A R N Active * Do you have difficulty dressing or bathing? Answer Date of Assessment Author Status Yes 07/27/2023 10:44 AM PMO CONSULTANT ApkeOlgayl A R N Active * Because of a physical, mental, or emotional condition, do you have difficulty doing errands alone such as visiting a doctor's office or shopping? Answer Date of Assessment Author Status Yes 07/27/2023 10:44 AM PMO CONSULTANT BillkeZamzam R N Active documented as of this encounter Mental Status * Because of a physical, mental, or emotional condition, do you have serious difficulty concentrating, remembering, or making decisions? Answer Entry Date Author Status No 07/27/2023 10:44 AM PMO CONSULTANT Zamzam Zavala R N Active documented in this encounter Plan of Treatment Upcoming Encounters Date Type Department Care Team (Latest Contact Info) Description 06/09/2024 2:20 PM PMO CONSULTANT Telemedicine [facility] [address] [place] [address] Earnest Drake MD [address] [place], [place] [phone] 06/21/2024 1:30 AM PMO CONSULTANT Allied Health/Nurse Visit [facility] [address] [place] [address] Madan Palomo MD [address] [place], [place] [address] 03/01/2025 11:00 AM CDT Allied Health/Nurse Visit [facility] [place] [address] [place] [address] Norma Rowland PA-C [address] [place], [place] [address] 03/01/2025 11:00 AM CDT Office Visit [facility] [place] [address] [place] [address] Norma Rowland PA-C [address] [place] [address] documented as of this encounter Visit Diagnoses Not on filedocumented in this encounter Care Teams Truck Repair Supervisor Relationship Specialty Start Date End Date Abdon Villela MD [address] [place] [phone] PCP - General FAMILY PRACTICE 12/17/15 Pernell Vance MD [address] [place] [address] Consulting Physician CARDIOVASCULAR DISEASE 07/05/1901/30 Kamilla Oliveira NP [address] [facility] [place] [address] Referring Physician Nurse Practitioner Family 10/08/2104/14 Madan Palomo MD [address] [place] [address] EP Supervisor Paint Roller Covers CLINICAL CARDIAC ELECTROPHYSIOLOGY 10/08/21 documented as of this encounter
--- OUTSIDE RECORDS SUMMARY | 2024-06-08 06:08 | XMS_ITS | Encounter Summary ---
Author Organization [facility] Address [facility] [facility] [place] [address] [place] [address] Care Team Providers Care Cargo Router Name Role Phone Abdon Villela MD Primary Care Provider [phone] Madan Palomo MD Unavailable [phone] Norma Rowland PA-C Unavailable [phone] Encounter Details Date Type Department Care Team (Late st Contact Info) Description 03/01/2024 Orders Only [facility] [place] [address] Madan Palomo MD [address] [place] [address] Social History Tobacco Use Types Packs/Day Years Used Date Smoking Tobacco: Former Cigarettes 1 29.6 0 02/14/1966 - 10/07/1995 Pipe Smokeless Tobacco: Never Alcohol Use Standard Drinks/Week Comments No 0 (1 standard drink = 0.6 oz pur e alcohol) [facility] Utilities Answer Date Recorded In the past 12 months has e [employer], gas, oil, or water [employer] threatened to shut off services in your [...] Never 07/27/2023 How often do you attend spiritism or jehovah's witness serv ices? Never 07/27/2023 Do you belong to any clubs o r organizations such as spiritism groups, unions, fraternal or athletic groups, or [...] and heating? Not hard at all 07/27/2023 [facility] of Occupat ional Health - Occupational Stress [...] Assessment Author Status No 07/27/2023 10:44 AM SOUND INSTALLATION WORKER Zamzam Zavala R N Active * Do you have serious difficulty walking or climbing stairs? Answer Date of Assessment Author Status Yes 07/27/2023 10:44 AM SOUND INSTALLATION WORKER Zamzam Zavala R N Active * Do you have difficulty dressing or bathing? Answer Date of Assessment Author Status Yes 07/27/2023 10:44 AM SOUND INSTALLATION WORKER Zamzam Zavala R N Active * Because of a physical, mental, or emotional condition, do you have difficulty doing errands alone such as visiting a doctor's office or shopping? Answer Date of Assessment Author Status Yes 07/27/2023 10:44 AM SOUND INSTALLATION WORKER Zamzam Zavala R N Active documented as of this encounter Mental Status * Because of a physical, mental, or emotional condition, do you have serious difficulty concentrating, remembering, or making decisions? Answer Entry Date Author Status No 07/27/2023 10:44 AM SOUND INSTALLATION WORKER Zamzam Zavala R N Active documented in this encounter Plan of Treatment Upcoming Encounters Date Type Department Care Team (Latest Contact Info) Description 06/09/2024 2:20 PM SOUND INSTALLATION WORKER Telemedicine [facility] Medical Group [facility] [address] [place] [address] Earnest Drake MD [address] [place], [place] [phone] 06/21/2024 1:30 AM SOUND INSTALLATION WORKER Allied Health/Nurse Visit [facility] [address] [place] [address] Madan Palomo MD [address] [place] [address] 03/01/2025 11:00 AM CDT Allied Health/Nurse Visit [facility] [place] [address] [place] [address] Norma Rowland PA-C [address] [place] [address] 03/01/2025 11:00 AM CDT Office Visit [facility] [place] [address] [place] [address] Norma Rowland PA-C [address] [place], [place] [address] documented as of this encounter Results * ECG 12 lead (HOSPITAL PERFORMED ONLY) (03/02/2024 9:50 AM CDT) 03/02/2024 9:50 AM CDT Narrative [facility] - 03/02/2024 2:26 PM CDT ? [facility] ?[address] [place], [place] ??[address] ? Test Date: ?2024-03-02 Pat Name: ? AVILA FERNANDEZ ?Department: ?? 3 ? Room: ? Gender: ? Male ? Assistant Principal: ?? : ?1945 ? Requested By: MADAN PALOMO Order Number: [id number] ? Reading MD: ?? Madan Palomo ? Measurements Intervals ?[place] ? Rate: ? 61 ? P: ? IA: ? 0 ?QRS: ?267 QRSD: ? 159 ?T: ?86 QT: ? 495 ? QTc: ?500 ? Interpretive Statements ELECTRONIC VENTRICULAR PACEMAKER ABNORMAL RHYTHM ECG Procedure Note Madan Palomo MD - 03/02/[address] [place] [address] Test Date: 2024-03-02 Pat Name: AVILA FERNANDEZ Department: 3 Room: Gender: Male Assistant Principal: : 1945 Requested By: MADAN PALOMO Order Number: [id number] Reading MD: Madan Palomo Measurements Intervals [place] Rate: 61 P: [place]: 0 QRS: 267 QRSD: 159 T: 86 QT: 495 QTc: 500 Interpretive Statements ELECTRONIC VENTRICULAR PACEMAKER ABNORMAL RHYTHM ECG us Madan Palomo MD ECG ORDERABLES Final Res ult [facility] documented in this encounter Visit Diagnoses Diagnosis Cardiac pacemaker in situ- Primary NSVT (nonsustained ventricular tachycardia) (CMS/HCC HHS/HCC) Paroxysmal ventricular tachycardia Chronic atrial fibrillation (CMS/HCC HHS/HCC) Atrial fibrillation Chronic atrial fibrillation (CMS/HCC HHS/HCC)- Primary Atrial fibrillation documented in this encounter Care Teams Cargo Router Relationship Specialty Start Date End Date Abdon Villela MD [address] [facility] [place] [address] PCP - General FAMILY PRACTICE 12/17/15 Madan Palomo MD [address] [place] [address] EP Tester Waste Disposal Leakage CLINICAL CARDIAC ELECTROPHYSIOLOGY 10/08/21 Norma Rowland PA-C [address] [place] [address] Referring Physician PHYSICIAN ROLLER PNEUMATIC 12/31/23 documented as of this encounter
--- OUTSIDE RECORDS SUMMARY | 2024-06-08 06:08 | XMS_ITS | Encounter Summary ---
Author Organization [facility] Address [facility] [place] [address] [place] [address] Care Team Providers Care Assembly Hand Name Role Phone Abdon Villela MD Primary Care Provider [phone] Pernell Vance MD Unavailable UnavailKamilla Lazaro NP Unavailable Unavailable Madan Palomo MD Unavailable [phone] Encounter Details Date Type Department Care Team (Latest Contact Info) Description 12/11/2023 Travel Social History Tobacco Use Types Packs/Day Years Used Date Smoking Tobacco: Former Cigarettes 1 29.6 0 02/14/1966 - 10/07/1995 Pipe Smokeless Tobacco: Never Alcohol Use Standard Drinks/Week Comments No 0 (1 standard drink = 0.6 oz pur e alcohol) [facility] Utilities Answer Date Recorded In the past 12 months has [facility] [employer], gas, oil, or water [employer] threatened to shut off services in your [...] How often do you attend christianity or mosque serv ices? Never 07/27/2023 Do [...] and heating? Not hard at all 07/27/2023 [facility] - Occupational Stress Questionnaire Answer Date Recorded [...] Assessment Author Status No 07/27/2023 10:44 AM PHARM TECH Zamzam Zavala R N Active * Are you blind or do you have serious difficulty seeing, even when wearing glasses? Answer Date of Assessment Author Status No 07/27/2023 10:44 AM PHARM TECH Olga Zavalayl A R N Active * Do you have serious difficulty walking or climbing stairs? Answer Date of Assessment Author Status Yes 07/27/2023 10:44 AM PHARM TECH Olga Zavalayl A R N Active * Do you have difficulty dressing or bathing? Answer Date of Assessment Author Status Yes 07/27/2023 10:44 AM PHARM TECH ApkeOlgayl A R N Active * Because of a physical, mental, or emotional condition, do you have difficulty doing errands alone such as visiting a doctor's office or shopping? Answer Date of Assessment Author Status Yes 07/27/2023 10:44 AM PHARM TECH BillkeZamzam R N Active documented as of this encounter Mental Status * Because of a physical, mental, or emotional condition, do you have serious difficulty concentrating, remembering, or making decisions? Answer Entry Date Author Status No 07/27/2023 10:44 AM PHARM TECH Zamzam Zavala R N Active documented in this encounter Plan of Treatment Upcoming Encounters Date Type Department Care Team (Latest Contact Info) Description 06/09/2024 2:20 PM PHARM TECH Telemedicine [facility] [address] [place] [address] Earnest Drake MD [address] [place], [place] [phone] 06/21/2024 1:30 AM PHARM TECH Allied Health/Nurse Visit [facility] [address] [place] [address] Madan Palomo MD [address] [place], [place] [address] 03/01/2025 11:00 AM CDT Allied Health/Nurse Visit [facility] [place] [address] [place] [address] Norma Rowland PA-C [address] [place], [place] [address] 03/01/2025 11:00 AM CDT Office Visit [facility] [place] [address] [place] [address] Norma Rowland PA-C [address] [place] [address] documented as of this encounter Visit Diagnoses Not on filedocumented in this encounter Care Teams Assembly Hand Relationship Specialty Start Date End Date Abdon Villela MD [address] [place] [phone] PCP - General FAMILY PRACTICE 12/17/15 Pernell Vance MD [address] [place] [address] Consulting Physician CARDIOVASCULAR DISEASE 07/05/1901/30 Kamilla Oliveira NP [address] [facility] [place] [address] Referring Physician Nurse Practitioner Family 10/08/2104/14 Madan Palomo MD [address] [place] [address] EP Wood Carver CLINICAL CARDIAC ELECTROPHYSIOLOGY 10/08/21 documented as of this encounter
--- OUTSIDE RECORDS SUMMARY | 2024-06-08 06:08 | XMS_ITS | Encounter Summary ---
Author Organization [facility] - [facility] Address [facility] [place] [address] [place] [address] Care Team Providers Care Mold Tooler Name Role Phone Abdon Villela MD Primary Care Provider [phone] Madan Palomo MD Unavailable [phone] Norma Rowland PA-C Unavailable [phone] Reason for Referral * Imaging (Emergency) - New Request Specialty Diagnoses / Procedures Referred By Contac t Referred To Contact RADIOLOGY Procedures CT ABD+PEL W IV CON ONLY Arias Franco MD [address] [place] [phone] Phone: tel: fax: Referral ID Status Reason Start Date Expiration Date V isits Requested Visits Authorized [id number] New Request 05/09/2024 05/09/2025 1 1 URE MANAGER Reason for Visit * Reason Comments Abdominal Pain Encounter Details Date Type Department Care Team (Late st Contact Info) Description 05/09/2024 6:55 PM CAPTURE MANAGER - 05/09/2024 9:10 PM CAPTURE MANAGER Emergency [place] [address] [facility] [address] Arias Franco MD [address] [place] [id number] Abdominal Pain Discharge Disposition: Home or Self Care (Routine Discharge) Social History Tobacco Use Types Packs/Day Years Used Date Smoking Tobacco: Former Cigarettes 1 29.6 0 02/14/1966 - 10/07/1995 Pipe Smokeless Tobacco: Never Alcohol Use Standard Drinks/Week Comments No 0 (1 standard drink = 0.6 oz pur e alcohol) [facility] Utilities Answer Date Recorded In the past [...] Never 07/27/2023 How often do you attend jain or baptist serv ices? Never 07/27/2023 Do you belong to any clubs o r organizations such as jain groups, unions, fraternal or athletic groups, or [...] and heating? Not hard at all 07/27/2023 [place] [employer] - Occupational Stress [...] Sign Reading Time Taken Comments Blood Pressure 134/81 05/09/2024 7:03 PM CAPTURE MANAGER Pulse 89 05/09/2024 7:03 PM CAPTURE MANAGER Temperature 37.3 ??C (99.1 ??F) 05/09/2024 7:03 PM CS T Respiratory Rate 16 05/09/2024 7:03 PM CAPTURE MANAGER Oxygen Saturation 95% 05/09/2024 7:03 PM CAPTURE MANAGER Inhaled Oxygen Concentration - - Weight 81.6 kg (180 lb) 05/09/2024 7:03 PM CAPTURE MANAGER Height 182.9 cm (6') 05/09/2024 7:03 PM CAPTURE MANAGER Body Mass Index 24.41 05/09/2024 7:03 PM CAPTURE MANAGER documented in this encounter Functional Status * Are you deaf or do you have serious difficulty hearing Answer Date of Assessment Author Status No 07/27/2023 10:44 AM CAPTURE MANAGER ApOlga trevinoyl A, R N Active * Are you blind or do you have serious difficulty seeing, even when wearing glasses? Answer Date of Assessment Author Status No 07/27/2023 10:44 AM CAPTURE MANAGER Olga Zavalayl A, R N Active * Do you have serious difficulty walking or climbing stairs? Answer Date of Assessment Author Status Yes 07/27/2023 10:44 AM CAPTURE MANAGER Olga Zavalayl A, R N Active * Do you have difficulty dressing or bathing? Answer Date of Assessment Author Status Yes 07/27/2023 10:44 AM CAPTURE MANAGER ApOlga trevinoyl A, R N Active * Because of a physical, mental, or emotional condition, do you have difficulty doing errands alone such as visiting a doctor's office or shopping? Answer Date of Assessment Author Status Yes 07/27/2023 10:44 AM CAPTURE MANAGER Olga Zavalayl A, R N Active documented as of this encounter Mental Status * Because of a physical, mental, or emotional condition, do you have serious difficulty concentrating, remembering, or making decisions? Answer Entry Date Author Status No 07/27/2023 10:44 AM CAPTURE MANAGER Olga Zavalayl A, R N Active documented in this encounter Discharge Instructions * Attachments The following attachments cannot be sent through Care Everywhere. * Umbilical Hernia, Adult (Zambian) documented in this encounter Medications at Time [...] daily. 05/25/2024 documented as of this encounter ED Notes * Casi Cohen RN - 05/09/2024 9:00 PM CST Called [facility] to arrange transport of the pt back to the [facility] URE MANAGER * Alma Peralta RN - 05/09/2024 6:59 PM CST Patient comes to us via EMS from [facility] rehab. The nurse states that the patient is a 1 x assist and alert to self only. The staff state that the patient was screaming out in pain whenpalpating his abdomen and they think he has a umbilical hernia. They think he has more of a protrusion there. URE MANAGER * Arias Franco MD - 05/09/2024 6:58 PM CST eMERGENCY dEPARTMENT eNCOUnter CHIEF COMPLAINT Chief Complaint Patient presents with Abdominal Pain HPI HPI Avila Fernandez is a 79-year-old male who presents to the ER with a complaint of abdominal pain and painful hernia. Patient resides at a local [facility] has a history of dementia. He also has a known umbilical hernia has been seen several times for incarceration. Nursing staff noted that he was having more pain today they were concerned the hernia was sticking out more than normal. EMS transferred the patient to the emergency department I discussed the patient with the paramedics. Patient is a poor historian due to his dementia. ALLERGIES Review of patient's allergies indicates: Allergen Reactions Tomato Diarrhea CURRENT MEDICATIONS Current Outpatient Medications Medication Sig acetaminophen (TYLENOL) 500 MG tablet Take 2 tablets (1,000 mg total) by mouth every 6 (six) hours as needed for Pain. apixaban (ELIQUIS) 5 MG tablet Take 1 tablet (5 mg total) by mouth 2 (two) times daily. atorvastatin (LIPITOR) 80 MG tablet Take 1 tablet (80 mg total) by mouth nightly at bedtime. carvedilol (COREG) 6.25 MG tablet Take 1 tablet (6.25 mg total) by mouth 2 (two) times daily. ferrous sulfate EC 325 (65 Fe) MG tablet Take 1 tablet by mouth daily. finasteride (PROSCAR) 5 MG tablet Take 1 tablet (5 mg total) by mouth daily. furosemide (LASIX) 40 MG tablet Take 1 tablet (40 mg total) by mouth daily. lisinopril (PRINIVIL) 5 MG tablet Take 1 tablet (5 mg total) by mouth daily. loperamide (IMODIUM) 2 MG capsule Take 1 [...] tablet (20 mEq total) by mouth daily. PAST MEDICAL HISTORY Past Medical History: Diagnosis Date A-fib ([facility]) BPH (benign prostatic hyperplasia) CHF (congestive heart failure) ([facility]) Coronary artery disease Dementia without behavioral disturbance ([facility]) Diabetes mellitus ([facility]) Disorder of prostate HLD (hyperlipidemia) Hyperlipidemia Hypertension Pacemaker 09/10/2022 Respiratory failure ([facility]) Sick sinus syndrome ([facility]) Urinary retention SURGICAL HISTORY Past Surgical History: Procedure Laterality Date CORONARY ART DIL,ONE VESSEL 2010 INSER COBIAN PACER XVENOUS ATRIAL 05/04/2013 PACEMAKER SOCIAL HISTORY Social History Socioeconomic History Marital status: Number [...] No Stress: No Stress Concern Present (07/27/2023) [place] [employer] - Occupational Stress Questionnaire Feeling of Stress : Not at all Social Connections: Socially Isolated (07/27/2023) Social Connection and Isolation Panel [NHANES] Frequency of Communication with Friends and Family: Never Frequency of Social Gatherings with Friends and Family: Never Attends Jewish Services: Never Active Member of Clubs or [...] Unstable Housing in the Last Year: No FAMILY HISTORY Family History Problem Relation Name Age of Onset Heart Attack Mother REVIEW OF SYSTEMS Review of Systems All other ROS negative unless noted above in HPI. PHYSICAL EXAM Physical Exam Filed Vitals: 05/09/24 1903 BP: 134/81 Pulse: 89 Resp: 16 Temp: 99.1 ??F (37.3 ??C) TempSrc: Temporal SpO2: 95% Weight: 81.6 kg (180 lb) Height: 1.829 m (6') The patient is a well developed and well nourished adult male in moderate painful distress, alert and conversant but not fully oriented HEENT: PERRL, EOMI Throat without lesions, mucous membranes moist NECK: Supple without adenopathy or rigidity CHEST: Respirations are easy and unlabored ABD: Soft, hypoactive BS, tender incarcerated hernia in the supraumbilical area EXT: No clubbing, cyanosis, edema NEURO: CN II-XII intact, no focal weakness SKIN: No rash or significant lesions EKG RADIOLOGY CT ABD+PEL W IV CON ONLY Final Result by User, [id number] (05/09 2041) [address] [place] [address] INDICATION: Umbilical hernia, abdominal pain, concern for [...] By: Rj Mendoza MD, 05/09/2024 8:18 PM LABS Results for orders placed or performed during the hospital encounter of 05/09/24 CBC W/DIFF AUTOMATED Result Value Ref Range WBC 16.15 (H) 4.00 - 10.80 x10'3/uL RBC 4.34 (L) 4.50 - 6.10 x10'6/uL HGB 11.5 (L) 13.0 - 18.0 G/DL HCT 37.2 37.0 - 52.0 % MCV 85.7 78.0 - 100.0 FL MCH 26.5 (L) 27.0 - 31.0 PG MCHC 30.9 (L) 33.0 - 36.0 G/DL RDW 15.8 (H) 11.5 - 14.5 % PLT 255 150 - 350 x10'3/uL MPV 10.1 7.4 - 10.4 FL CBC COMMENT NORMAL REFERENCE RANGE NOT ESTABLISHED FOR THE PROPORTIONAL LEUKOCYTE DIFFERENTIAL. NEUTROPHILS % 88.0 % LYMPHOCYTES % 7.7 % MONOCYTES % 3.5 % EOSINOPHILS % 0.3 % BASOPHILS % 0.2 % IMMATURE GRANS % 0.3 % NRBC % 0.0 % ABS. NEUTROPHILS 14.21 (H) 1.60 - 8.30 x10'3/uL ABS. LYMPHOCYTES 1.24 0.80 - 4.70 x10'3/uL ABS. MONOCYTES 0.57 0.00 - 1.50 x10'3/uL ABS. EOSINOPHILS 0.05 0.00 - 0.40 x10'3/uL ABS. BASOPHILS 0.03 0.00 - 0.20 x10'3/uL ABS. IMMATURE GRANULOCYTES 0.05 (H) 0.00 - 0.03 x10'3/uL ABS. NUCLEATED RBC'S 0.00 0.00 - 0.01 x10'3/uL COMPREHENSIVE METABOLIC PANEL Result Value Ref Range SODIUM S/P/B 137 136 - 145 MMOL/L POTASSIUM S/P/B 4.4 3.5 - 5.1 MMOL/L CHLORIDE S/P/B 98 98 - 107 MMOL/L CO2 30.4 21.0 - 32.0 MMOL/L GLUCOSE 220 (H) 70 - 99 MG/DL BUN 24 6 - 24 MG/DL CREATININE S/P/B 0.90 0.70 - 1.30 MG/DL CALCIUM S/P/B 9.5 8.4 - 10.5 MG/DL BILIRUBIN TOTAL S/P/B 0.7 0.2 - 1.0 MG/DL ALKALINE PHOSPHATASE S/P/B 89 45 - 115 U/L AST 10 (L) 15 - 37 U/L ALT 12 (L) 16 - 63 U/L TOTAL PROTEIN S/P/B 7.7 6.4 - 8.2 G/DL ALBUMIN S/P/B 2.9 (L) 3.4 - 5.0 G/DL ANION GAP 8.6 5.0 - 15.0 MMOL/L OSMOLALITY (CALC) 295 MOSM/KG GFR ESTIMATE 86 (L) >89 ML/MIN/1.73 M2 GFR NOTES GFR REFERENCES: ED MEDICATIONS Medications sodium chloride 0.9% bolus infusion 1,000 mL (0 mLs Intravenous Infusion Stop Time 05/09/242043) iopamidol (ISOVUE-370) 76 % injection 88 mL (88 mLs Intravenous Given 05/09/241954) PROCEDURES Procedures Patient vomited in the emergency department several times. However shortly thereafter I was able toreduce the hernia clinically by using steady pressure on the area. CONSULTS: ED COURSE & MEDICAL DECISION MAKING [facility] ED Course as of 05/09/242047May 09, 20241927 CBC W/DIFF AUTOMATED(!) White blood cell count is elevated [WM] 193 COMPREHENSIVE METABOLIC PANEL(!) [WM] 2043 CT scan report is noted [WM] 2045 On reexamination patient is resting comfortably. The umbilical hernia is still reduced and thepatient's bowel sounds are back to normal. He has no abdominal tenderness and appears stable for discharge back to the nursing facility. [WM] ED Course User Index [WM] Arias Franco MD Patient presents with incarcerated umbilical hernia possibly with bowel obstruction. Although it appears I have now reduced the hernia will obtain imaging. In fact the hernia is reduced and the scan is reassuring. Therefore we will discharge the patient back to the facility. I see 's previous note about medical clearance prior to having surgery. It does appear that the patient should have this fixed in my opinion due to the frequent emergencydepartment visits that he has had and the fact that this could eventually cause him to have emergency surgery which would be riskier. Recommend following up with primary care to arrange for medical clearance as well as with Dr. Broderick. FINAL IMPRESSION SNOMED CT(R) 1. Incarcerated umbilical hernia IRREDUCIBLE UMBILICAL HERNIA Abdon Villela MD [address] [place] [phone] Schedule an appointment as soon as possible for a visit Star Broderick MD [address] [place] [address] Schedule an appointment as soon as possible for a visit New Prescriptions No medications on file Arias Franco MD 05/09/242047 URE MANAGER documented in this encounter Plan of Treatment Upcoming Encounters Date Type Department Care Team (Latest Contact Info) Description 06/09/2024 2:20 PM CAPTURE MANAGER Telemedicine [facility] Medical [facility] Multispecialty [facility] [address] [place] [phone] Earnest Drake MD [address] [place] [address] 06/21/2024 1:30 AM CAPTURE MANAGER [facility] [address] [place] [address] Madan Palomo MD [address] [place] [address] 03/01/2025 11:00 AM CDT Allied Health/Nurse Visit [facility] [address] [place] [phone] Norma Rowland PA-C [address] [place] [address] 03/01/2025 11:00 AM CDT Office Visit [facility] [address] [place] [address] Norma Rowland PA-C [address] [place] [address] documented as of this encounter Procedures Procedure Name Priority Date/Time Associated Diagnosis Comments CT ABD+PEL W CON STAT 05/09/2024 7:54 PM CAPTURE MANAGER COMPREHENSIVE METABOLIC PANEL STAT 05/09/2024 7:15 PM CAPTURE MANAGER CBC W/DIFF AUTOMATED STAT 05/09/2024 7:15 PM CAPTURE MANAGER documented in this encounter Results * CT ABD+PEL W IV CON ONLY (05/09/2024 7:54 PM CAPTURE MANAGER) Anatomical Region Laterality Modality Abdomen Computed Tomogra phy 05/09/2024 8:18 PM CAPTURE MANAGER Impressions 05/09/2024 8:40 PM CAPTURE MANAGER IMPRESSION: 1. ??Findings compatible with nonspecific enteritis/colitis [...] 05/09/2024 8:18 PM Narrative 05/09/2024 8:40 PM CAPTURE MANAGER [address] [place] [address] INDICATION: Umbilical hernia, abdominal pain, concern for [...] Procedure Note Rj Mendoza MD - 05/09/2024 [place] [address] [facility] [place] [address] INDICATION: Umbilical hernia, abdominal pain, concern for [...] By: Rj Mendoza MD, 05/09/2024 8:18 PM Arias Franco MD CT Final Result * (ABNORMAL) COMPREHENSIVE METABOLIC PANEL (05/09/2024 7:15 PM CAPTURE MANAGER) SODIUM S/P/B 137 136 - 145 MMOL/L 05/09/2024 7:36 PM [facility] POTASSIUM S/P/B 4.4 3.5 - 5.1 MMOL/L 05/09/2024 7:36 PM [facility] CHLORIDE S/P/B 98 98 - 107 MMOL/L 05/09/2024 7:36 PM [facility] CO2 30.4 21.0 - 32.0 MMOL/L 05/09/2024 7:36 PM [facility] GLUCOSE 220(H) 70 - 99 MG/DL 05/09/2024 7:36 PM [facility] Comment: FASTING GLUCOSE 100 TO 125 MG/DL IS CONSISTENT WITH IMPAIRED FASTING GLUCOSE. FASTING GLUCOSE >125 MG/DL IS CONSISTENT WITH DIABETES. RANDOM GLUCOSE >200 MG/DL WITH HYPERGLYCEMIC SYMPTOMS IS CONSISTENT WITH DIABETES. PER ADA GUIDELINES BUN 24 6 - 24 MG/DL 05/09/2024 7:36 PM CAPTURE MANAGER [facility] CREATININE S/P/B 0.90 0.70 - 1.30 MG/DL 05/09/2024 7:36 PM [facility] CALCIUM S/P/B 9.5 8.4 - 10.5 MG/DL 05/09/2024 7:36 PM [facility] BILIRUBIN TOTAL S/P/B 0.7 0.2 - 1.0 MG/DL 05/09/2024 7:36 PM [facility] Comment: THIS ASSAY IS NOT RECOMMENDED FOR PATIENTS UNDERGOING TREATMENT WITH ELTROMBOPAG DUE TO THE POTENTIAL FOR FALSELY ELEVATED RESULTS. ALKALINE PHOSPHATASE S/P/B 89 45 - 115 U/L 05/09/2024 7:36 PM [facility] AST 10(L) 15 - 37 U/L 05/09/2024 7:36 PM [facility] ALT 12(L) 16 - 63 U/L 05/09/2024 7:36 PM [facility] TOTAL PROTEIN S/P/B 7.7 6.4 - 8.2 G/DL 05/09/2024 7:36 PM [facility] ALBUMIN S/P/B 2.9(L) 3.4 - 5.0 G/DL 05/09/2024 7:36 PM [facility] ANION GAP 8.6 5.0 - 15.0 MMOL/L 05/09/2024 7:36 PM [facility] OSMOLALITY (CALC) 295 MOSM/KG 024 7:36 PM [facility] Comment:REFERENCE RANGE NOT ESTABLISHED GFR ESTIMATE 86(L) >89 ML/MIN/1. 73 M2 05/09/2024 7:36 PM [facility] GFR NOTES GFR REFERENCE S: 05/09/2024 7:36 PM [facility] Comment: THE ESTIMATED GFR IS [...] ml/min/1.73 m2 G5,KIDNEY FAILURE: <15 ml/min/1.73 m2 05/09/2024 7:15 PM CAPTURE MANAGER us Arias Franco MD LABORATORY Final Result [facility] [address] [place] [address], * (ABNORMAL) CBC W/DIFF AUTOMATED (05/09/2024 7:15 PM CAPTURE MANAGER) WBC 16.15(H) 4.00 - 10.80 x10'3/uL 05/09/2024 7:26 PM CAPTURE MANAGER [facility] RBC 4.34(L) 4.50 - 6.10 x10'6/uL 05/09/2024 7:26 PM CAPTURE MANAGER [facility] HGB 11.5(L) 13.0 - 18.0 G/DL 05/09/2024 7:26 PM CAPTURE MANAGER [facility] HCT 37.2 37.0 - 52.0 % 05/09/2024 7:26 PM CAPTURE MANAGER [facility] MCV 85.7 78.0 - 100.0 FL 05/09/2024 7:26 PM CAPTURE MANAGER [facility] MCH 26.5(L) 27.0 - 31.0 PG 05/09/2024 7:26 PM CAPTURE MANAGER [facility] MCHC 30.9(L) 33.0 - 36.0 G/DL 05/09/2024 7:26 PM [facility] RDW 15.8(H) 11.5 - 14.5 % 05/09/2024 7:26 PM CAPTURE MANAGER [facility] PLT 255 150 - 350 x10'3/uL 05/09/2024 7:26 PM CAPTURE MANAGER [facility] MPV 10.1 7.4 - 10.4 FL 05/09/2024 7:26 PM [facility] CBC COMMENT NORMAL REFERENCE RANGE NOT ESTABLISHED FOR THE PROPORTIONAL LEUKOCYTE DIFFERENTIAL. 05/09/2024 7:26 PM CAPTURE MANAGER [facility] NEUTROPHILS % 88.0 % 05/09/2024 7:26 PM [facility] LYMPHOCYTES % 7.7 % 05/09/2024 7:26 PM CAPTURE MANAGER [facility] MONOCYTES % 3.5 % 05/09/2024 7:26 PM CAPTURE MANAGER [facility] EOSINOPHILS % 0.3 % 05/09/2024 7:26 PM CAPTURE MANAGER [facility] BASOPHILS % 0.2 % 05/09/2024 7:26 PM CAPTURE MANAGER [facility] IMMATURE GRANS % 0.3 % 05/09/20 7:26 PM CAPTURE MANAGER [facility] NRBC % 0.0 % 05/09/2024 7:26 PM CAPTURE MANAGER [facility] ABS. NEUTROPHILS 14.21(H) 1.60 - 8.30 x10'3/uL 05/09/2024 7:26 PM CAPTURE MANAGER [facility] ABS. LYMPHOCYTES 1.24 0.80 - 4.70 x10'3/uL 05/09/2024 7:26 PM CAPTURE MANAGER [facility] ABS. MONOCYTES 0.57 0.00 - 1.50 x10'3/uL 05/09/2024 7:26 PM CAPTURE MANAGER [facility] ABS. EOSINOPHILS 0.05 0.00 - 0.40 x10'3/uL 05/09/2024 7:26 PM CAPTURE MANAGER [facility] ABS. BASOPHILS 0.03 0.00 - 0.20 x10'3/uL 05/09/2024 7:26 PM CAPTURE MANAGER [facility] ABS. IMMATURE GRANULOCYTES 0.05(H) 0.00 - 0.03 x10'3/uL 05/09/2024 7:26 PM CAPTURE MANAGER [facility] ABS. NUCLEATED RBC'S 0.00 0.00 - 0.01 x10'3/uL 05/09/2024 7:26 PM CAPTURE MANAGER [facility] 05/09/2024 7:15 PM CAPTURE MANAGER us Arias Franco MD LABORATORY Final Result [facility] [address] [place] [address], documented in this encounter Visit Diagnoses Diagnosis Incarcerated umbilical hernia- Primary Umbilical hernia with obstruction documented in this encounter Administered Medications Inactive Administered Medications - up to 3 most recent administrations Medication Order MAR Action Action Date Dose Rate Site iopamidol (ISOVUE-370) 76 % injection 88 mL 88 mL, Intravenous, IMG once as needed, Contrast, 1 dose, Starting on Thu05/09/24 at 1955, Until Thu05/09/24 at 1954 Given 05/09/2024 7:55 PM CAPTURE MANAGER 88 mLs sodium chloride 0.9% bolus infusion 1,000 mL 1,000 mL, Intravenous, Administer over 60 Minutes, Once, 1 dose, On Thu05/09/24 at 1915 New Bag 05/09/2024 7:29 PM CAPTURE MANAGER 1,000 mLs 1000 mL/hr documented in this encounter Active and Recently Administered Medications Times are shown in CAPTURE MANAGER. Scheduled Medication Order 05/07/2024 05/08/2024 05/09/2024 sodium chloride 0.9% bolus infusion 1,000 mL (COMPLETED) 1,000 mL, Intravenous, Administer over 60 Minutes, Once, 1 dose, On Thu05/09/24 at 1915 1929 (New Bag - Prov ider: Casi Cohen RN)2043 (Infusion Stop Time - Provider: Alma Peralta RN) PRN Medication Order 05/07/2024 05/08/2024 05/09/2024 iopamidol (ISOVUE-370) 76 % injection 88 mL (COMPLETED) 88 mL, Intravenous, IMG once as needed, Contrast, 1 dose, Starting on Thu05/09/24 at 1955, Until Thu05/09/24 at 1954 1954 (Given - Provid er: Haresh Messer RTR) documented in this encounter Care Teams Mold Tooler Relationship Specialty Start Date End Date Abdon Villela MD [address] [place] [phone] PCP - General FAMILY PRACTICE 12/17/15 Madan Palomo MD [address] [place] [address] EP Broadcast Director Operations CLINICAL CARDIAC ELECTROPHYSIOLOGY 10/08/21 Norma Rowland PA-C [address] [place] [address] Referring Physician PHYSICIAN FENCE MAKER 12/31/23 documented as of this encounter
--- OUTSIDE RECORDS SUMMARY | 2024-06-08 06:08 | XMS_ITS | Encounter Summary ---
Author Organization [facility] Address [facility]6 [facility] [place] [address] [place] [address] Care Team Providers Care Subscription Clerk Name Role Phone Abdon Villela MD Primary Care Provider [phone] Madan Palomo MD Unavailable [phone] Norma Rowland PA-C Unavailable [phone] Encounter Details Date Type Department Care Team (Late st Contact Info) Description 03/01/2024 Orders Only [facility] [place] [address] Madan Palomo MD [address] [place] [address] Social History Tobacco Use Types Packs/Day Years Used Date Smoking Tobacco: Former Cigarettes 1 29.6 0 02/14/1966 - 10/07/1995 Pipe Smokeless Tobacco: Never Alcohol Use Standard Drinks/Week Comments No 0 (1 standard drink = 0.6 oz pur e alcohol) [facility] Utilities Answer Date Recorded In the past 12 months has e [employer], gas, oil, or water [employer] threatened to shut off services in your [...] Never 07/27/2023 How often do you attend judaism or spiritism serv ices? Never 07/27/2023 Do you belong to any clubs o r organizations such as judaism groups, unions, fraternal or athletic groups, or [...] and heating? Not hard at all 07/27/2023 [facility] of Occupat ional Health - Occupational Stress [...] place to sleep or slept in a group home (including now)? No 07/27/2023 Sex and [...] Assessment Author Status No 07/27/2023 10:44 AM FIXED INCOME ANALYST Zamzam Zavala R N Active * Do you have serious difficulty walking or climbing stairs? Answer Date of Assessment Author Status Yes 07/27/2023 10:44 AM FIXED INCOME ANALYST Zamzam Zavala R N Active * Do you have difficulty dressing or bathing? Answer Date of Assessment Author Status Yes 07/27/2023 10:44 AM FIXED INCOME ANALYST Zamzam Zavala R N Active * Because of a physical, mental, or emotional condition, do you have difficulty doing errands alone such as visiting a doctor's office or shopping? Answer Date of Assessment Author Status Yes 07/27/2023 10:44 AM FIXED INCOME ANALYST Zamzam Zavala R N Active documented as of this encounter Mental Status * Because of a physical, mental, or emotional condition, do you have serious difficulty concentrating, remembering, or making decisions? Answer Entry Date Author Status No 07/27/2023 10:44 AM FIXED INCOME ANALYST Zamzam Zavala R N Active documented in this encounter Plan of Treatment Upcoming Encounters Date Type Department Care Team (Latest Contact Info) Description 06/09/2024 2:20 PM FIXED INCOME ANALYST Telemedicine [facility] Medical Group [facility]pec[facility] [address] [place] [address] Earnest Drake MD [address] [place], [place] [id number] 06/21/2024 1:30 AM FIXED INCOME ANALYST Allied Health/Nurse Visit [facility] [address] [place] [address] Madan Palomo MD [address] [place] [address] 03/01/2025 11:00 AM CDT Allied Health/[facility] [place] [address] [place] [address] Norma Rowland PA-C [address] [place] [address] 03/01/2025 11:00 AM CDT Office Visit [facility] [place] [address] [place] [address] Norma Rowland PA-C [address] [place] [address] Scheduled Orders Name Type Priority Associated Diagnoses Orde r Schedule ELECTROCARDIOGRAM EKG-NonRad Routine Cardiac pacemaker in situ Chronic atrial fibrillation ([facility]/HCC [facility]/HCC) Expected: 03/02/2024, Expires: 08/29/2024 documented as of this encounter Visit Diagnoses Diagnosis Cardiac pacemaker in situ- Primary Sinus node dysfunction (CMS/HCC HHS/HCC) Sinoatrial node dysfunction Chronic atrial fibrillation (CMS/HCC HHS/HCC) Atrial fibrillation documented in this encounter Care Teams Subscription Clerk Relationship Specialty Start Date End Date Abdon Villela MD [address] [place] [address] PCP - General FAMILY PRACTICE 12/17/15 Madan Palomo MD [address] [place] [address] EP Interlocking Tower Operator CLINICAL CARDIAC ELECTROPHYSIOLOGY 10/08/21 Norma Rowland PA-C [address] [place] [address] Referring Physician PHYSICIAN SALES EXECUTIVE INSURANCE 12/31/23 documented as of this encounter
--- OUTSIDE RECORDS SUMMARY | 2024-06-08 06:08 | XMS_ITS | Encounter Summary ---
Author Organization [facility] Address [facility]6 [facility] [place] [address] [place] [address] Care Team Providers Care Advertising Sales Assistant Name Role Phone Abdon Villela MD Primary Care Provider [phone] Pernell Vance MD Unavailable UnavailKamilla Lazaro NP Unavailable Unavailable Madan Palomo MD Unavailable [phone] Encounter Details Date Type Department Care Team (Latest Contact Info) Description 12/30/2023 Travel Social History Tobacco Use Types Packs/Day Years Used Date Smoking Tobacco: Former Cigarettes 1 29.6 0 02/14/1966 - 10/07/1995 Pipe Smokeless Tobacco: Never Alcohol Use Standard Drinks/Week Comments No 0 (1 standard drink = 0.6 oz pur e alcohol) [facility] Utilities Answer Date Recorded In the past 12 months has [facility] [employer], gas, oil, or water [employer] threatened to shut off services in your [...] Never 07/27/2023 How often do you attend druze or advent serv ices? Never 07/27/2023 Do you belong to any clubs o r organizations such as druze groups, unions, fraternal or athletic groups, or [...] and heating? Not hard at all 07/27/2023 [facility] - Occupational Stress Questionnaire Answer Date [...] Assessment Author Status No 07/27/2023 10:44 AM MAGENTO WEB DEVELOPER Zamzam Zavala R N Active * Are you blind or do you have serious difficulty seeing, even when wearing glasses? Answer Date of Assessment Author Status No 07/27/2023 10:44 AM MAGENTO WEB DEVELOPER Olga Zavalayl A R N Active * Do you have serious difficulty walking or climbing stairs? Answer Date of Assessment Author Status Yes 07/27/2023 10:44 AM MAGENTO WEB DEVELOPER Olga Zavalayl A R N Active * Do you have difficulty dressing or bathing? Answer Date of Assessment Author Status Yes 07/27/2023 10:44 AM MAGENTO WEB DEVELOPER ApkeOlgayl A R N Active * Because of a physical, mental, or emotional condition, do you have difficulty doing errands alone such as visiting a doctor's office or shopping? Answer Date of Assessment Author Status Yes 07/27/2023 10:44 AM MAGENTO WEB DEVELOPER BillkeZamzam R N Active documented as of this encounter Mental Status * Because of a physical, mental, or emotional condition, do you have serious difficulty concentrating, remembering, or making decisions? Answer Entry Date Author Status No 07/27/2023 10:44 AM MAGENTO WEB DEVELOPER Zamzam Zavala R N Active documented in this encounter Plan of Treatment Upcoming Encounters Date Type Department Care Team (Latest Contact Info) Description 06/09/2024 2:20 PM MAGENTO WEB DEVELOPER Telemedicine [facility] Medical [facility] [address] [place] [address] Earnest Drake MD [address] [place], [place] [phone] 06/21/2024 1:30 AM MAGENTO WEB DEVELOPER Allied Health/Nurse Visit [facility] [address] [place] [address] Madan Palomo MD [address] [place], [place] [address] 03/01/2025 11:00 AM CDT Allied Health/Nurse Visit [facility] [place] [address] [place] [address] Norma Rolwand PA-C [address] [place], [place] [address] 03/01/2025 11:00 AM CDT Office Visit [facility] [place] [address] [place] [address] Norma Rowland PA-C [address] [place] [id number] documented as of this encounter Visit Diagnoses Not on filedocumented in this encounter Care Teams Advertising Sales Assistant Relationship Specialty Start Date End Date Abdon Villela MD [address] [place] [address] PCP - General FAMILY PRACTICE 12/17/15 Pernell Vance MD [address] [place] [address] Consulting Physician CARDIOVASCULAR DISEASE 07/05/1901/30 Kamilla Oliveira NP [address] [facility] [place] [address] Referring Physician Nurse Practitioner Family 10/08/2104/14 Madan Palomo MD [address] [place] [address] EP Kiss Setter Hand CLINICAL CARDIAC ELECTROPHYSIOLOGY 10/08/21 documented as of this encounter
--- OUTSIDE RECORDS SUMMARY | 2024-06-08 06:08 | XMS_ITS | Encounter Summary ---
Author Organization [facility] - [facility] Address [facility] [place] [address] [place] [address] Care Team Providers Care Chief Science Officer Name Role Phone Abdon Villela MD Primary Care Provider [phone] Madan Palomo MD Unavailable [phone] Norma Rowland PA-C Unavailable [phone] Reason for Visit * Reason Onset Date Comments Appointment Reminder 03/01/2024 Encounter Details Date Type Department Care Team (Late st Contact Info) Description 03/01/2024 Telephone [facility] [place] [address] Madan Palomo MD [address] [place] [address] Appointment Reminder Social History Tobacco Use Types Packs/Day Years Used Date Smoking Tobacco: Former Cigarettes 1 29.6 0 02/14/1966 - 10/07/1995 Pipe Smokeless Tobacco: Never Alcohol Use Standard Drinks/Week Comments No 0 (1 standard drink = 0.6 oz pur e alcohol) [facility] Utilities Answer Date Recorded In [...] Never 07/27/2023 How often do you attend islam or orthodoxy serv ices? Never 07/27/2023 Do you belong to any clubs o r organizations such as islam groups, unions, fraternal or athletic groups, or [...] and heating? Not hard at all 07/27/2023 [facility] [place] of Occupat ional Health - Occupational Stress [...] Assessment Author Status No 07/27/2023 10:44 AM DAY PORTER Zamzam Zavala R N Active * Do you have serious difficulty walking or climbing stairs? Answer Date of Assessment Author Status Yes 07/27/2023 10:44 AM DAY PORTER Zamzam Zavala R N Active * Do you have difficulty dressing or bathing? Answer Date of Assessment Author Status Yes 07/27/2023 10:44 AM DAY PORTER Zamzam Zavala R N Active * Because of a physical, mental, or emotional condition, do you have difficulty doing errands alone such as visiting a doctor's office or shopping? Answer Date of Assessment Author Status Yes 07/27/2023 10:44 AM DAY PORTER Zamzam Zavala R N Active documented as of this encounter Mental Status * Because of a physical, mental, or emotional condition, do you have serious difficulty concentrating, remembering, or making decisions? Answer Entry Date Author Status No 07/27/2023 10:44 AM Zamzam King R N Active documented in this encounter Progress Notes * Latoya Victoria - 03/01/2024 4:14 PM CDT Left message for patient reminding of appt tomorrow with Dr Rey in [place]. Asked patient to return call if needing to cancel or r/s. documented in this encounter Plan of Treatment Upcoming Encounters Date Type Department Care Team (Latest Contact Info) Description 06/09/2024 2:20 PM DAY PORTER Telemedicine [facility] Medical Group [facility] [address] [place] [address] Earnest Drake MD [address] [place] [address] 06/21/2024 1:30 AM DAY PORTER [facility] [address] [place] [address] Madan Palomo MD [address] [place] [address] 03/01/2025 11:00 AM CDT Allied Health/[facility] [place] [address] [place] [address] Norma Rowland PA-C [address] [place] [address] 03/01/2025 11:00 AM CDT [facility] Visit [facility] [place] [address] [address] Norma Rowland PA-C [address] [place], [place] [address] documented as of this encounter Visit Diagnoses Not on filedocumented in this encounter Care Teams Chief Science Officer Relationship Specialty Start Date End Date Abdon Villela MD [address] [facility] [place] [address] PCP - General FAMILY PRACTICE 12/17/15 Madan Palomo MD [address] [place] [address] EP Fuel Handler CLINICAL CARDIAC ELECTROPHYSIOLOGY 10/08/21 Norma Rowland PA-C [address] [place] [address] Referring Physician PHYSICIAN ELECTRONIC WARFARE TECHNICAL 12/31/23 documented as of this encounter
--- OUTSIDE RECORDS SUMMARY | 2024-06-08 06:08 | XMS_ITS | Encounter Summary ---
Author Organization [facility] Address [address] [place] [address]. [place] [address] [place] [address] Care Team Providers Care Medical Screener Name Role Phone Abdon Mendoza MD Primary Care Provider [phone] Pernell Vance MD Unavailable UnavailKamilla Lazaro NP Unavailable Unavailable Madan Palomo MD Unavailable [phone] Reason for Visit * Auth/Cert Specialty Diagnoses / Procedures Referred By Contac t Referred To Contact Diagnoses Benign localized prostatic hyperplasia with lower urinary tract symptoms (LUTS) BPH W/ LUTS N40.1 Procedures CYSTOURETHROSCOPY CYSTOSCOPY FLEXIBLE Referral ID Status Reason Start Date Expiration Date Visits Re quested Visits Authorized [id number] 1 1 Encounter Details Date Type Department Care Team (Latest Contact Info) Description 12/15/2023 6:52 AM CDT - 12/15/2023 9:56 AM T Hospital Encounter [place] [address] [facility] [address] [place] [address] [place] [address] [place] [address] Discharge Disposition: Home or Self Care (Routine Discharge) Social History Tobacco Use Types Packs/Day Years Used Date Smoking Tobacco: Former Cigarettes 1 29.6 0 02/14/1966 - 10/07/1995 Pipe Smokeless Tobacco: Never Alcohol Use Standard Drinks/Week Comments No 0 (1 standard drink = 0.6 oz pur e alcohol) [facility] Utilities Answer Date Recorded In the [...] How often do you attend taoist or quaker serv ices? Never 07/27/2023 Do you belong [...] and heating? Not hard at all 07/27/2023 [facility] [place] of Occupat ional Health - Occupational Stress [...] Assessment Author Status No 07/27/2023 10:44 AM MONITORING SPECIALIST Olga Zavalayl A, R N Active * Are you blind or do you have serious difficulty seeing, even when wearing glasses? Answer Date of Assessment Author Status No 07/27/2023 10:44 AM MONITORING SPECIALIST Olga Zavalayl A, R N Active * Do you have serious difficulty walking or climbing stairs? Answer Date of Assessment Author Status Yes 07/27/2023 10:44 AM MONITORING SPECIALIST ApOlga trevinoyl A, R N Active * Do you have difficulty dressing or bathing? Answer Date of Assessment Author Status Yes 07/27/2023 10:44 AM MONITORING SPECIALIST Olga Zavalayl A, R N Active * Because of a physical, mental, or emotional condition, do you have difficulty doing errands alone such as visiting a doctor's office or shopping? Answer Date of Assessment Author Status Yes 07/27/2023 10:44 AM MONITORING SPECIALIST Lucas Zamzam A, R N Active documented as of this encounter Mental Status * Because of a physical, mental, or emotional condition, do you have serious difficulty concentrating, remembering, or making decisions? Answer Entry Date Author Status No 07/27/2023 10:44 AM MONITORING SPECIALIST Olga Zavalayl A, R N Active documented in this encounter Discharge Instructions * Attachments The following attachments cannot be sent through Care Everywhere. * Cystoscopy Discharge Instructions (Congolese) * How to Care for Your Hill Catheter, Male (Congolese) * How to Prevent Catheter Associated Urinary Tract Infections (Congolese) documented in this encounter Medications at Time [...] void in post op. Hill was placedby Flower Banuelos nurse mail processing machine operator at this time with urine return. 500 ml of urine emptied from leg bag at this time. This RN contacted nursing facility and spoke with Nurse Collins and gave verbal order from Dr. Hastings to change hill monthly or per protocol and [place] verbalized understanding. documented in this encounter [...] during recuperation were discussed with the patient/family/personal service center representative. Reasonable alternatives to the patient's proposed procedure/surgery including benefits, risks, and side effects related to the alternatives and the risks related to not receiving the proposed care were also discussed with the patient/family/personal service center representative. Questions were answered and the patient /family/personal service center representative verbalized understanding and desires to proceed. [...] he cannot empty well then I recommend halfway hill while under supervision at the [place] Reason for Consult: Requested by Yanna Hastings III, MD Past Medical History: Diagnosis Date ??? A-fib ([facility]) ??? BPH (benign prostatic hyperplasia) ??? CHF (congestive heart failure) ([facility]) ??? Coronary artery disease ??? Dementia without behavioral disturbance ([facility]) ??? Diabetes mellitus ([facility]) ??? Disorder of prostate ??? HLD (hyperlipidemia) ??? Hyperlipidemia ??? Hypertension ??? Pacemaker 09/10/2022 ??? Respiratory failure ([facility]) ??? Sick sinus syndrome ([facility]) ??? Urinary retention Allergies: No Known Allergies [...] plan is to keep the hill in [place] while in the [place] Not a good surgical candidate but if family wants to go to [facility] the [facility] faculty might be more broadminded. YANNA HASTINGS III, MD 12/09/2023 * Yanna Hastings III, MD - 12/09/2023 6:00 PM CDT Consults Attending Provider: Yanna Hastings III, MD PCP: ABDON MENDOZA MD Annie Crocker is an 78-year-old male. Reason for Admission: Demented NHP presented to [facility] ER with abdominal pains . CT [...] he cannot empty well then I recommend halfway hill while under supervision at the [place] Reason for Consult: Requested by Yanna Hastings III, MD Past Medical History: Diagnosis Date ??? A-fib (CMS/HCC HHS/HCC) ??? BPH (benign prostatic hyperplasia) ??? CHF (congestive heart failure) (CMS/HCC HHS/HCC) ??? Coronary artery disease ??? Dementia without behavioral disturbance (CMS/HCC HHS/HCC) ??? Diabetes mellitus (CMS/HCC HHS/HCC) ??? Disorder of prostate ??? HLD (hyperlipidemia) ??? Hyperlipidemia ??? Hypertension ??? Pacemaker 09/10/2022 ??? Respiratory failure (CMS/HCC HHS/HCC) ??? Sick sinus syndrome (CMS/HCC HHS/HCC) ??? Urinary retention Allergies: No Known Allergies [...] plan is to keep the hill in [place] while in the [place] Not a good surgical candidate but if family wants to go to [facility] the [facility] faculty might be more broadminded. YANNA HASTINGS III, MD 12/09/2023 documented in this encounter OR Notes * Brief Op Note - Yanna Hastings III, MD - 12/15/2023 7:52 AM CDT [facility] Brief Op HSHSCYSTOSCOPY FLEXIBLE Procedure Note Annie Crocker 12/15/2023 0748 Procedure(s) (LRB): CYSTOSCOPY FLEXIBLE (N/A) Surgeon(s): Yanna Hastings III, MD Lottery Sales Clerk: None Anesthesia: Local Pre-Op Diagnosis: BPH W/ [...] ANNIE CROCKER Date of : 1945 Account: [id number] Facility: [facility] Location: [facility] Date of Service: 12/15/2023 Operative Note INDICATIONS [...] and there [place] no one [place] the [place] [facility] who will be able to do intermittent [...] Hill in long-term. Signature/Date: YANNA HASTINGS III #[id number] /ALLIE documented in this encounter Plan of Treatment Upcoming Encounters Date Type Department Care Team (Latest Contact Info) Description 06/09/2024 2:20 PM MONITORING SPECIALIST Telemedicine [facility] [address] [place] [address] Earnest Drake MD [address] [place] [address] 06/21/2024 1:30 AM MONITORING SPECIALIST Allied Health/Nurse Visit [facility] [address] [place] [address] Madan Palomo MD [address] [place] [address] 03/01/2025 11:00 AM CDT Allied Health/Nurse Visit [facility] [place] [address] Norma Rowland PA-C [address] [place], [place] [address] 03/01/2025 11:00 AM CDT Office Visit [facility] [address] [place] [address] Norma Rowland PA-C [address] [place] [address] documented as of this encounter Procedures Procedure Name Priority Date/Time Associated Diagnosis Comments CYSTOURETHROSCOPY 12/15/2023 7:26 AM CDT Benign localized prostatic hyperplasia with lower urinary tract symptoms (LUTS) documented in this encounter Visit Diagnoses Not on filedocumented in this encounter Active and Recently Administered Medications Times are shown in CDT. Scheduled Medication Order 12/13/2023 12/14/2023 12/15/2023 nitrofurantoin (macrocrystal-monohydrate) (MACROBID) capsule 100 mg 100 mg, Oral, Once, 1 dose, On e 12/15/23 at 0830 0830 (Canceled Entry - Provider: Automatic Discharge Provider - Comment: Automatically canceled at discontinue of medication order) PRN Medication Order 12/13/2023 12/14/2023 12/15/2023 lidocaine 2 % URO-JET jelly (CANCELED) As needed, Starting on Thu12/15/23 at 0746, Until Thu12/15/23 at 0753, Intra-Op 0746 (Given - Provid er: Yanna Hastings III, MD) documented in this encounter Care Teams Medical Screener Relationship Specialty Start Date End Date [place] [address] PCP - General FAMILY PRACTICE 12/17/15 [place] [address] Consulting Physician CARDIOVASCULAR DISEASE 07/05/1901/30 [place] [address] Referring Physician Nurse Practitioner Family 10/08/2104/14 Madan Palomo MD [address] [place] [address] EP Ore Trimmer CLINICAL CARDIAC ELECTROPHYSIOLOGY 10/08/21 documented as of this encounter
--- OUTSIDE RECORDS SUMMARY | 2024-06-08 06:08 | XMS_ITS | Encounter Summary ---
Author Organization [facility] Address [facility] [place] [address] [place] [address] Care Team Providers Care Pill Coater Name Role Phone Abdon Villela MD Primary Care Provider [phone] Madan Palomo MD Unavailable [phone] Norma Rowland PA-C Unavailable [phone] Reason for Referral * (Routine) - New Request Specialty Diagnoses / Procedures Referred By Conttejas t Referred To Contact Procedures Critical Care Mariam Watkins MD [address] [place] [id number] Phone: tel: fax: Referral ID Status Reason Start Date Expiration Date V isits Requested Visits Authorized [id number] New Request 05/16/2024 05/16/2025 1 1 ICAL THERAPY NURSE Reason for Visit * Reason Comments Chest Pain Encounter Details Date Type Department Care Team (Late st Contact Info) Description 05/16/2024 10:59 AM PHYSICAL THERAPY NURSE - 05/16/2024 8:00 PM PHYSICAL THERAPY NURSE Emergency [facility] [address] [facility] [place] [address] Mariam Watkins MD [address] [place] [id number] Chest Pain Discharge Disposition: Transfer to Acute Care Hospital Social History Tobacco Use Types Packs/Day Years Used Date Smoking Tobacco: Former Cigarettes 1 29.6 0 02/14/1966 - 10/07/1995 Pipe Smokeless Tobacco: Never Alcohol Use Standard Drinks/Week Comments No 0 (1 standard drink = 0.6 oz pur e alcohol) [facility] Utilities Answer Date Recorded In the [...] How often do you attend druze or holiness serv ices? Never 07/27/2023 Do [...] and heating? Not hard at all 05/17/2024 [facility] [place] [facility] Occupat ional [facility] - Occupational Stress [...] time in the past 12 m [facility], were you homeless or living in [...] Sign Reading Time Taken Comments Blood Pressure 97/50 05/16/2024 7:30 PM PHYSICAL THERAPY NURSE Pulse 60 05/16/2024 7:30 PM PHYSICAL THERAPY NURSE Temperature 38.7 ??C (101.6 ??F) 05/16/2024 5:[address] Respiratory Rate 14 05/16/2024 7:30 PM PHYSICAL THERAPY NURSE Oxygen Saturation 98% 05/16/2024 7:30 PM PHYSICAL THERAPY NURSE Inhaled Oxygen Concentration - - Weight 77.6 kg (171 lb) 05/16/2024 11:13 AM PHYSICAL THERAPY NURSE Height 182.9 cm (6') 05/16/2024 11:13 AM PHYSICAL THERAPY NURSE Body Mass Index 23.19 05/16/2024 11:13 AM PHYSICAL THERAPY NURSE documented in this encounter Functional Status * Are you deaf or do you have serious difficulty hearing Answer Date of Assessment Author Status No 07/27/2023 10:44 AM PHYSICAL THERAPY NURSE Zamzam Zavala R N Active * Are you blind or do you have serious difficulty seeing, even when wearing glasses? Answer Date of Assessment Author Status No 07/27/2023 10:44 AM PHYSICAL THERAPY NURSE Zamzam Zavala R N Active * Do you have serious difficulty walking or climbing stairs? Answer Date of Assessment Author Status Yes 07/27/2023 10:44 AM PHYSICAL THERAPY NURSE Zamzam Zavala A R N Active * Do you have difficulty dressing or bathing? Answer Date of Assessment Author Status Yes 07/27/2023 10:44 AM PHYSICAL THERAPY NURSE Zamzam Zavala A R N Active * Because of a physical, mental, or emotional condition, do you have difficulty doing errands alone such as visiting a doctor's office or shopping? Answer Date of Assessment Author Status Yes 07/27/2023 10:44 AM PHYSICAL THERAPY NURSE Zamzam Zavala R N Active documented as of this encounter Mental Status * Because of a physical, mental, or emotional condition, do you have serious difficulty concentrating, remembering, or making decisions? Answer Entry Date Author Status No 07/27/2023 10:44 AM PHYSICAL THERAPY NURSE Zamzam Zavala A R N Active documented in this encounter [...] unspecified whether acute organ dysfunction present ([facility]) Inject 600 mg into the [...] tablet (1,000 mcg total) by mouth daily. atorvastatin (LIPITOR) 80 MG tablet Take 1 tablet (80 mg total) by mouth nightly at bedtime. 05/25/2024 magnesium oxide 400 (241.3 Mg) MG tablet Take 1 tablet (400 mg total) by mouth daily. 05/25/2024 documented as of this encounter ED Notes * Gladys Manuel RN - 05/16/2024 3:58 PM CST Call Justine at [facility] and rehab dicussed POC and reason for transfer. Notified [place] that was unable to get ahold of family called son 7x and called daughter 4x no answer and no return phone call. ICAL THERAPY NURSE * Gladys Manuel RN - 05/16/2024 3:55 PM CST Called Son x7 left a message, has not returned call. ICAL THERAPY NURSE * Gladys Manuel RN - 05/16/2024 3:50 PM CST Called daughter 4x with no answer ICAL THERAPY NURSE * Mariam Watkins MD - 05/16/2024 11:29 AM CSTAssociated Order(s): Critical Care Chief Complaint Chief Complaint Patient presents with Chest Pain History of Present Illness History obtained from medical records and EMS Patient is an 79-year-old male who presents to the emergency room from [facility] for reported chest pain. Patient reportedly complained of chest pain earlier today and was given 1 nitroglycerin. Patient is unable to answer any questions here for me at this time I cannot confirm or deny that he is having chest pain. Patient has a past medical history of coronary artery disease with stent, CHF, atrial fibrillation on Eliquis, pacemaker, hypertension, hyperlipidemia, diabetes and dementia. Patient does have an indwelling Hayden catheter for what appears to be urinary retention.. [facility]. Patient's most recent cardiology note was from March 02, 2024. Device interrogation on that day showed 99% biventricular pacing. Patient also has a history of chronic systolic CHF. No change in medications at that time other than increasing Coreg to6.25 twice daily. Echocardiogram July 27, 2023 - The left ventricular size is normal. Estimated left ventricular ejection fraction is 55-60%. Left ventricular diastolic function is not reliably assessed. The left atrial volume is severely increased (>48 ml/M2). The peak pulmonary artery systolic pressure is estimated to be approximately 67 mmHg. Moderate tricuspid regurgitation. Severe pulmonary hypertension Ct abd/pelvis 05/09/24 - IMPRESSION: 1. Findings compatible with nonspecific enteritis/colitis and diarrheal state. No evidence of bowelobstruction, as clinically queried. 2. Hayden catheter bulb appears in low lying position [...] months. 7. Other chronic/nonurgent findings, as above. Component 12/09/23 3529 Resulting Agency SPEC DESCRIPTION URINE CLEAN CATCH SFL SPECIAL REQUESTS NO SPECIAL REQUEST SFL CULTURE RESULT >50,000 TO 99,999 CFU/mL PROVIDENCIA STUARTII SJS Susceptibility Providencia stuartii MURRAY (VITEK) AMPICILLIN Resistant AZTREONAM Sensitive CEFAZOLIN Resistant CEFEPIME Sensitive CEFTRIAXONE Sensitive CIPROFLOXACIN Resistant ERTAPENEM Sensitive GENTAMICIN Resistant IMIPENEM INTERMEDIATE Intermediate LEVOFLOXACIN INTERMEDIATE Intermediate MEROPENEM Sensitive NITROFURANTOIN Resistant PIPRACIL/TAZO Sensitive TETRACYCLINE Resistant TRIMETH-SULFAMETH. Resistant Medical History ALLERGIES: Review of patient's allergies indicates: Allergen Reactions Tomato Diarrhea MEDICATIONS: Prior to Admission medications Medication Sig Start Date End Date Taking? Authorizing Provider acetaminophen (TYLENOL) 500 MG tablet Take 2 tablets (1,000 mg total) by mouth every 6 (six) hours as needed for Pain. Yes Default History Genericprovider apixaban (ELIQUIS) 5 MG [...] for Chest Pain. Yes Default History Genericprovider polyethylene glycol powder Take 17 g by mouth daily as needed (constipation). 06/11/18 Yes Doc [facility] potassium chloride CR (KLOR-CON M) 20 MEQ tablet Take 1 tablet (20 mEq total) by mouth daily. 08/01/23 Yes Sandra Short NP vitamin B-12 (CYANOCOBALAMIN) 1000 MCG tablet Take 1 tablet (1,000 mcg total) by mouth daily. Yes Default History Genericprovider PAST MEDICAL HISTORY: Past Medical History: Diagnosis Date A-fib (CMS/HCC HHS/HCC) BPH (benign prostatic hyperplasia) CHF (congestive heart failure) (CMS/HCC HHS/HCC) Coronary artery disease Dementia without behavioral disturbance (CMS/HCC [facility]) Diabetes mellitus ([facility]) Disorder of prostate HLD (hyperlipidemia) Hyperlipidemia Hypertension Pacemaker 09/10/2022 Respiratory failure ([facility]) Sick sinus syndrome ([facility]) Urinary retention PAST SURGICAL HISTORY: Past Surgical [...] Topics Alcohol use: No Drug use: No Review of Systems Review of Systems Unable to perform ROS: Dementia Constitutional: Negative for fever (None reported prior to arrival). Physical Exam Filed Vitals: 05/16/24 1400 05/16/24 1430 05/16/24 1500 05/16/24 1530 BP: 128/59 125/62 134/79 123/66 Pulse: 60 60 60 60 Resp: 20 16 16 18 Temp: 102.8 ??F (39.3 ??C) 101.6 ??F (38.7 ??C) TempSrc: Axillary Axillary SpO2: 97% 100% 100% 97% Weight: Height: vss Physical Exam Vitals and nursing note reviewed. Constitutional: General: He is not in acute distress. Appearance: He is ill-appearing (Chronically ill-appearing). HENT: Head: Normocephalic and atraumatic. Cardiovascular: Rate [...] tenderness. There is no guarding or rebound. Musculoskeletal: General: Swelling (Trace pedal pitting edema) present. No tenderness. Normal range of motion. Cervical back: Normal range of motion and neck supple. No rigidity or tenderness. Skin: General: Skin is warm and dry. Capillary Refill: Capillary refill takes less than 2 seconds. Neurological: Mental Status: He is alert. Mental status is at baseline. He is disoriented. Comments: Patient is alert and does follow commands but is not answering any questions appropriately. Diagnostic Studies / Procedures ELECTROCARDIOGRAMS: Results for orders placed or performed during the hospital encounter of 05/16/24 ECG 12 lead Narrative [address] 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1945 Requested By: MARIAM WATKINS Order Number: [id number] Reading MD: Measurements Intervals [place] Rate: 70 P: HI: 0 QRS: 255 QRSD: 154 T: 86 QT: 400 QTc: 433 Interpretive Statements ELECTRONIC VENTRICULAR PACEMAKER ABNORMAL RHYTHM ECG LABORATORY STUDIES: Results for orders placed or performed during the hospital encounter of 05/16/24 CBC W/DIFF AUTOMATED Result Value Ref Range WBC 13.44 (H) 4.00 - 10.80 x10'3/uL RBC 4.14 (L) 4.50 - 6.10 x10'6/uL HGB 11.0 (L) 13.0 - 18.0 G/DL HCT 36.0 (L) 37.0 - 52.0 % MCV 87.0 78.0 - 100.0 FL MCH 26.6 (L) 27.0 - 31.0 PG MCHC 30.6 (L) 33.0 - 36.0 G/DL RDW 15.9 (H) 11.5 - 14.5 % PLT 256 150 - 350 x10'3/uL MPV 10.0 7.4 - 10.4 FL CBC COMMENT NORMAL REFERENCE RANGE NOT ESTABLISHED FOR THE PROPORTIONAL LEUKOCYTE DIFFERENTIAL. NEUTROPHILS % 93.7 % LYMPHOCYTES % 4.7 % MONOCYTES % 0.6 % EOSINOPHILS % 0.4 % BASOPHILS % 0.1 % IMMATURE GRANS % 0.5 % NRBC % 0.0 % ABS. NEUTROPHILS 12.59 (H) 1.60 - 8.30 x10'3/uL ABS. LYMPHOCYTES 0.63 (L) 0.80 - 4.70 x10'3/uL ABS. MONOCYTES 0.08 0.00 - 1.50 x10'3/uL ABS. EOSINOPHILS 0.06 0.00 - 0.40 x10'3/uL ABS. BASOPHILS 0.01 0.00 - 0.20 x10'3/uL ABS. IMMATURE GRANULOCYTES 0.07 (H) 0.00 - 0.03 x10'3/uL ABS. NUCLEATED RBC'S 0.00 0.00 - 0.01 x10'3/uL COMPREHENSIVE METABOLIC PANEL Result Value Ref Range SODIUM S/P/B 141 136 - 145 MMOL/L POTASSIUM S/P/B 4.7 3.5 - 5.1 MMOL/L CHLORIDE S/P/B 102 98 - 107 MMOL/L CO2 30.3 21.0 - 32.0 MMOL/L GLUCOSE 167 (H) 70 - 99 MG/DL BUN 20 6 - 24 MG/DL CREATININE S/P/B 0.84 0.70 - 1.30 MG/DL CALCIUM S/P/B 8.9 8.4 - 10.5 MG/DL BILIRUBIN TOTAL S/P/B 0.8 0.2 - 1.0 MG/DL ALKALINE PHOSPHATASE S/P/B 97 45 - 115 U/L AST 14 (L) 15 - 37 U/L ALT 16 16 - 63 U/L TOTAL PROTEIN S/P/B 7.6 6.4 - 8.2 G/DL ALBUMIN S/P/B 2.9 (L) 3.4 - 5.0 G/DL ANION GAP 8.7 5.0 - 15.0 MMOL/L OSMOLALITY (CALC) 298 MOSM/KG GFR ESTIMATE 88 (L) >89 ML/MIN/1.73 M2 GFR NOTES GFR REFERENCES: TROPONIN, QUANT Result Value Ref Range TROPONIN I HIGH SENSITIVITY 27 0 - 76 ng/L LIPASE Result Value Ref Range LIPASE 12 (L) 16 - 77 UNITS/L LACTIC ACID W REFLEX (SEPSIS) Result Value Ref Range LACTIC ACID VENOUS 4.2 (HH) 0.4 - 2.0 MMOL/L URINALYSIS Result Value Ref Range COLOR (U) RED TRANSPARENCY CLOUDY SPECIFIC GRAVITY (U) 1.015 1.000 - 1.025 U PH 9.0 (H) 5.0 - 8.0 LEUKOCYTES (U) 3+ (A) NEGATIVE NITRITES POSITIVE (A) NEGATIVE PROTEIN RANDOM (U) 3+ (A) NEGATIVE GLUCOSE (U) NEGATIVE NEGATIVE KETONES MG/DL (U) NEGATIVE NEGATIVE UROBILINOGEN 1.0 (H) <1.0 EU/DL BILIRUBIN (U) NEGATIVE NEGATIVE BLOOD (U) 3+ (A) NEGATIVE WBC/HPF 50-100 (A) 0 - 5 /HPF RBC/HPF FILLED FIELD (A) 0 - 5 /HPF EPI/LPF OCCASIONAL /LPF BACTERIA (U) 3+ /HPF OTHER CASTS (U) HYALINE /LPF LACTIC ACID W REFLEX (SEPSIS) Result Value Ref Range LACTIC ACID VENOUS 3.3 (H) 0.4 - 2.0 MMOL/L CORONAVIRUS (COVID-19) ANTIGEN Specimen: NASAL Result Value Ref Range CORONAVIRUS ANTIGEN IA NEGATIVE NEGATIVE SPECIMEN TYPE NASAL INFLUENZA A & B Specimen: NASOPHARYNGEAL SWAB Result Value Ref Range SPECIMEN TYPE (INFLUENZA) NASOPHARYNGEAL SWAB INFLUENZA A NEGATIVE NEGATIVE INFLUENZA B NEGATIVE NEGATIVE IMAGING STUDIES XR CHEST PORTABLE Final Result by User, [email or web address] (05/16 1203) [address] [place] [address] Examination: XR CHEST PORTABLE Exam time: 05/16/2024 11:43 AM Clinical history: Chest pain, fever Comparison: 12/09/2023 Technique: AP chest Findings: Borderline heart size similar to previous study. Left subclavian transvenous pacer lead placements are unchanged. No pulmonary vascular congestion. There is no acute pulmonary parenchymal opacity. No pleural effusion. No hyperinflation. IMPRESSION: 1) No radiographic evidence of active disease the chest. Ordered By: MARIAM WATKINS Interpreted By: Flo Gardner MD, 05/16/2024 12:02 PM Critical Care Performed by: Mariam Watkins MD Authorized by: Mariam Watkins MD Critical care provider statement: Critical care time (minutes): 40 Critical care was necessary to treat or prevent imminent or life-threatening deterioration of the following conditions: Sepsis Critical care was time spent personally by me on the following activities: Blood draw for specimens, discussions with consultants, discussions with primary provider, evaluation of patient's response to treatment, examination of patient, obtaining history from patient or surrogate, review of old charts, re- evaluation of patient's condition, ordering and review of radiographic studies, ordering andreview of laboratory studies, ordering and performing treatments and interventions and pulse oximetry ED Course / Medical Decision Making Severe Sepsis and Septic Shock Assessment Infection source present or suspected: Genitourinary SIRS Criteria: WBC > 12,000 or < 4,000 or >10% bands Fever Organ Dysfunction: Lactate > 2 mmol/L Is organ dysfunction secondary to chronic issue (i.e. Chronic renal insufficiency, taking anticoaguation)? If so please explain: no If Sepsis Date/Time of Diagnosis: Yes Date: 05/09/2024 Time: 1230 when urinalysis was results If Severe Sepsis Date/Time of Diagnosis: Yes Date: 05/09/2024 Time: 1230 If Septic Shock Date/Time of Diagnosis: No Date: 05/09/2024 Time: n/a IVF bolus of 30mL/kg given per actual body weight, Acme body weight, or Lesser amount: Sepsis Fluid Resuscitation if less than 30 mL/Kg was Ordered and Given. Administration of 30 mL/kg of crystalloid fluids would be detrimental or harmful for the patient despite having hypotension, a lactate >= 4 mmol/L, or documentation of septic shock. Reason for ordering a volume less than 30 mL/kg of crystalloid fluids: heart failure The volume of crystalloid fluids in place of 30 mL/kg the patient was to receive: 1000ml An order was placed for the volume of fluids in place of 30 mL/kg to be administered: No 1 L of IV fluids given due to patient's history of congestive heart failure. Focused Sepsis Reevaluation Exam Completed. Time and Date completed: Date: 05/09/2024 Time: 1405 -patient is stable. Vital signs remained stable with a blood pressure 114/51. Heart rate is 60. Patient is at his baseline mental status. Dr. Oliva did see patient at bedside. Repeat lactic acid is improved to 3.3. Medical Decision Making ED Course as of 05/16/24 1543 Mon May 16, 2024 1132 Differential diagnosis of coronary artery disease, angina, NSTEMI, STEMI, sepsis, urinary tract infection, viral syndrome, pneumonia [facility]'s [facility] medication reconciliation reviewed as well as previous cardiology note, echocardiogram. Labs and EKG ordered EKG independently interpreted by me as a ventricularly paced rhythm with a rate of 70. No change compared with previous. No ST elevation. [MA] 1150 CBC with mild leukocytosis and chronic anemia. Leukocytosis is improved from 5 days ago. [MA] 1201 Lactic acid is 4.2 [MA] 1207 Chemistry is unremarkable except for slightly elevated glucose. LFTs are normal. Lipase is normal. Troponin is normal. [MA] 1207 Chest x-ray is negative. [MA] 1225 UA with blood and 50-100 wbc [MA] 1238 Covid and influenza are negative [MA] 1318 D/w Dr. Oliva - would prefer to transfer due to hematuria, inability to get a cystoscope here and patient on Eliquis. He does states that patient is typically agitated and somewhat belligerenton previous evaluations. Repeat lactic acid is pending. [MA] 1354 Presume severe sepsis from urinary tract infection although large number of red cells. Will give 1 L of IV fluids as patient cannot have more due to history of CHF. Lactic acid will be repeated.Rocephin has been ordered. Dr. Oliva did see patient in the emergency room. [MA] 1402 Repeat lactic acid is 3.3 [MA] 1447 Temp is now 102.8 axillary. Will give tylenol. [MA] 1510 D/w Dr. Hernandez at [facility]. D/w Dr. Art urology who will see patient. [MA] ED Course User Index [MA] Mariam Watkins MD Clinical Impression Severe sepsis ([facility] HHS/[facility]) (Primary) Hematuria UTI (urinary tract infection) Dementia ([facility]) Agitation Disposition: Transfer to Another Facility Mariam Watkins MD 05/16/24 1543 ICAL THERAPY NURSE * Nikki Carpenter RN - 05/16/2024 11:04 AM CST Arrives per [facility] with c/o chest pain. [facility] reports she gave ntg x1 without relief. 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 Pt has dementia. ICAL THERAPY NURSE documented in this encounter Plan of Treatment Upcoming Encounters Date Type Department Care Team (Latest Contact Info) Description 06/09/2024 2:20 PM PHYSICAL THERAPY NURSE Telemedicine [facility] [address] [place] [phone] Earnest Drake MD [address] [place], [place] [phone] 06/21/2024 1:30 AM PHYSICAL THERAPY NURSE Allied Health/[facility] [address] [place] [address] Madan Palomo MD [address] [place] [address] 03/01/2025 11:00 AM CDT Allied Health/Nurse Visit [facility] [place] [address] [place] [address] Norma Rowland PA-C [address] [place] [address] 03/01/2025 11:00 AM CDT Office Visit [place] [address] [place] [address] Norma Rowland PA-C [address] [place], [place] [phone] documented as of this encounter Procedures Procedure Name Priority Date/Time Associated Diagnosis Comments LACTIC ACID W REFLEX (SEPSIS) TIMED 05/16/2024 3:45 PM PHYSICAL THERAPY NURSE LACTIC ACID W REFLEX (SEPSIS) TIMED 05/16/2024 1:33 PM PHYSICAL THERAPY NURSE HC URINALYSIS AUTO W/MICRO STAT 05/16/2024 11:51 AM PHYSICAL THERAPY NURSE URINE BACTERIA CULTURE STAT 11:51 AM PHYSICAL THERAPY NURSE XR CHEST PORTABLE STAT 05/16/2024 11: 43 AM PHYSICAL THERAPY NURSE CORONAVIRUS (COVID-19) ANTIGEN STAT 05/16/2024 11:37 AM PHYSICAL THERAPY NURSE INFLUENZA A & B STAT 05/16/2024 11:37 AM PHYSICAL THERAPY NURSE LACTIC ACID W REFLEX (SEPSIS) STAT 05/16/2024 11:33 AM PHYSICAL THERAPY NURSE COMPREHENSIVE METABOLIC PANEL STAT 05/16/2024 11:33 AM PHYSICAL THERAPY NURSE CULTURE, BACTERIA, BLOOD Routine 05/16/2024 11:33 AM PHYSICAL THERAPY NURSE CBC W/DIFF AUTOMATED STAT 05/16/2024 11:33 AM PHYSICAL THERAPY NURSE TROPONIN, QUANT STAT 05/16/2024 11:33 AM PHYSICAL THERAPY NURSE LIPASE STAT 05/16/2024 11:33 AM PHYSICAL THERAPY NURSE CRITICAL CARE Routine 05/16/2024 11:29 AM PHYSICAL THERAPY NURSE ECG 12-LEAD Routine 05/16/2024 11:07 AM PHYSICAL THERAPY NURSE documented in this encounter Results * (ABNORMAL) LACTIC ACID W REFLEX (SEPSIS) (05/16/2024 3:45 PM PHYSICAL THERAPY NURSE) LACTIC ACID VENOUS 2.8(H) 0.4 - 2.0 MMOL/L 05/16/2024 4:10 PM PHYSICAL THERAPY NURSE [facility] 05/16/2024 3:45 PM PHYSICAL THERAPY NURSE us Mariam Watkins MD LABORATORY Final Resul t [facility] [address] [place] [address], * (ABNORMAL) LACTIC ACID W REFLEX (SEPSIS) (05/16/2024 1:33 PM PHYSICAL THERAPY NURSE) LACTIC ACID VENOUS 3.3(H) 0.4 - 2.0 MMOL/L 05/16/2024 1:58 PM PHYSICAL THERAPY NURSE [facility] 05/16/2024 1:33 PM PHYSICAL THERAPY NURSE Mariam Watkins MD LABORATORY Final Resul t Performing Organization Address [facility]/ZIP Co de Phone Number [facility] [address] [place] [address], [place] [phone] * CULTURE URINE (05/16/2024 11:51 AM PHYSICAL THERAPY NURSE) SPEC DESCRIPTION URINE [facility] CATH 05/16/2024 11:51 AM PHYSICAL THERAPY NURSE [facility] SPECIAL REQUESTS NO SPECIAL REQUEST 05/16/2024 11:51 AM PHYSICAL THERAPY NURSE [facility] CULTURE RESULT GROSS CONTAMINATIO N. SUBMIT NEW SPECIMEN UPON DOCTOR'S REQUEST. 05/18/2024 11:27 [address] [facility] CULTURE RESULT EQUAL OR >100,000 CFU/mL GRAM POSITIVE COCCI 1 05/18/2024 11:27 [address] [facility] CULTURE RESULT EQUAL OR >100,000 CFU/mL GRAM POSITIVE COCCI 2 05/18/2024 11:27 AM [address] THER[address]Y NURSE [facility] CULTURE RESULT EQUAL OR >100,000 CFU/mL GPR 05/18/2024 11:27 AM [address] THER[address]Y NURSE [facility] CULTURE RESULT >25,000 TO 50,000 CFU/mL GRAM POSITIVE COCCI 3 05/18/2024 11:27 AM [address] THER[address]Y NURSE [facility] URINE SPECIMEN OBTAINED VIA INDWELLING URINARY CATHETER / Unknown 05/16/2024 11:51 AM PHYSICAL THERAPY NURSE 05/16/2024 11:56 AM PHYSICAL THERAPY NURSE Mariam Watkins MD MICROBIOLOGY - GENERAL ORDE [facility] Final Result [facility] [address] [place] [address], [place] [phone] [id number] [facility] [address] [place] [address], [place] [phone] * (ABNORMAL) URINALYSIS (05/16/2024 11:51 AM PHYSICAL THERAPY NURSE) COLOR (U) RED 05/16/2024 12:14 PM PHYSICAL THERAPY NURSE [facility] TRANSPARENCY CLOUDY 05/16/2024 12:14 PM [facility] SPECIFIC GRAVITY (U) 1.015 1.000 - 1.025 05/16/2024 12:14 PM [facility] U PH 9.0(H) 5.0 - 8.0 05/16/2024 12:14 PM [facility] Comment:EQUAL TO OR GREATER THAN LEUKOCYTES (U) 3+(A) NEGATIVE 05/16/2024 12:14 PM [facility] NITRITES POSITIVE(A) NEGATIVE 05/16/2024 12:14 PM [facility] PROTEIN RANDOM (U) 3+(A) NEGATIVE 05/16/2024 12:14 PM [facility] GLUCOSE (U) NEGATIVE NEGATIVE 05/16/2024 12:14 PM [facility] KETONES MG/DL (U) NEGATIVE NEGATIVE 05/16/2024 12:14 PM [facility] UROBILINOGEN 1.0(H) <1.0 EU/DL 05/16/2024 12:14 PM [facility] BILIRUBIN (U) NEGATIVE NEGATIVE 05/16/2024 12:14 PM [facility] BLOOD (U) 3+(A) NEGATIVE 05/16/2024 12:14 PM [facility] WBC/HPF 50-100(A) 0 - 5 /HPF 05/16/2024 12:14 PM [facility] RBC/HPF FILLED FIELD(A) 0 - 5 /HPF 05/16/2024 12:14 PM PHYSICAL THERAPY NURSE [facility] EPI/LPF OCCASIONAL /LPF 05/16/2024 12:14 PM [facility] BACTERIA (U) 3+ /HPF 05/16/2024 12:14 PM PHYSICAL THERAPY NURSE [facility] OTHER CASTS (U) HYALINE /LPF 12:14 PM PHYSICAL THERAPY NURSE [facility] Comment:0-5 URINE SPECIMEN OBTAINED VIA INDWELLING URINARY CATHETER / Unknown 05/16/2024 11:51 AM PHYSICAL THERAPY NURSE us Mariam Watkins MD URINE ORDERABLES Final Resu lt [facility] [address] [place] [address], * XR CHEST PORTABLE (05/16/2024 11:43 AM PHYSICAL THERAPY NURSE) Anatomical Region Laterality Modality Chest Radiographic Betsey ging 05/16/2024 12:0 2 PM PHYSICAL THERAPY NURSE Impressions 05/16/2024 12:02 PM PHYSICAL THERAPY NURSE IMPRESSION: 1) No radiographic evidence of active disease the chest. Ordered By: MARIAM WATKINS Interpreted By: Flo Gardner MD, 05/16/2024 12:02 PM Narrative 05/16/2024 12:02 PM PHYSICAL THERAPY NURSE [place] [address] [place] [address] Examination: XR CHEST PORTABLE Exam time: 05/16/2024 11:43 AM Clinical history: Chest pain, fever Comparison: 12/09/2023 Technique: AP chest Findings: Borderline heart size similar to previous study. Left subclavian transvenous pacer lead placements are unchanged. No pulmonary vascular congestion. There is no acute pulmonary parenchymal opacity. No pleural effusion. No hyperinflation. Procedure Note Flo Gardner MD - 05/16/2024 [place] [address] [place] [address] Examination: XR CHEST PORTABLE Exam time: 05/16/2024 11:43 AM Clinical history: Chest pain, fever Comparison: 12/09/2023 Technique: AP chest Findings: Borderline heart size similar to previous study. Left subclaviantransvenous pacer lead placements are unchanged. No pulmonary vascularcongestion. There is no acute pulmonary parenchymal opacity. No pleuraleffusion. No hyperinflation. IMPRESSION: 1) No radiographic evidence of active disease the chest. Ordered By: MARIAM WATKINS Interpreted By: Flo Gardner MD, 05/16/2024 12:02 PM Mariam Watkins MD GENERAL IMAGING Final Resul t * INFLUENZA A & B (05/16/2024 11:37 AM PHYSICAL THERAPY NURSE) SPECIMEN TYPE (INFLUENZA) NASOPHARYNGEAL SWAB 05/16/2024 11:51 AM PHYSICAL THERAPY NURSE [facility] INFLUENZA A NEGATIVE NEGATIVE 05/16/2024 12:28 PM PHYSICAL THERAPY NURSE [facility] INFLUENZA B NEGATIVE NEGATIVE 05/16/2024 12:28 PM PHYSICAL THERAPY NURSE [facility] Comment: A NEGATIVE RESULT DOES NOT EXCLUDE INFLUENZA VIRUS INFECTION. ??IF INFLUENZA IS CIRCULATING IN YOUR COMMUNITY, A DIAGNOSIS OF INFLUENZA SHOULD BE CONSIDERED BASED ON A PATIENT'S CLINICAL PRESENTATION AND EMPIRIC ANTIVIRAL TREATMENT SHOULD BE CONSIDERED IF INDICATED. NASOPHARYNGEAL SWAB / Unknown 05/16/2024 11:37 AM PHYSICAL THERAPY NURSE Mariam Watkins MD MICROBIOLOGY - GENERAL [facility] Final Result [facility] [place] [address], * CORONAVIRUS (COVID-19) ANTIGEN (05/16/2024 11:37 AM PHYSICAL THERAPY NURSE) CORONAVIRUS ANTIGEN IA NEGATIVE NEGATIVE 05/16/2024 12:28 PM PHYSICAL THERAPY NURSE [facility] Comment: NEGATIVE RESULTS DO NOT RULE [...] LABORATORIES. SPECIMEN TYPE NASAL 05/16/2024 11:51 AM PHYSICAL THERAPY NURSE [facility] NASAL NASAL STRUCTURE / Unknown 05/16/2024 11:37 AM PHYSICAL THERAPY NURSE Mariam Watkins MD MICROBIOLOGY - GENERAL [facility] Final Result [facility] [address] [place] [address], * (ABNORMAL) BLOOD CULTURE #1 (05/16/2024 11:33 AM PHYSICAL THERAPY NURSE) SPEC DESCRIPTION BLOOD 05/16/2024 11:21 AM PHYSICAL THERAPY NURSE [facility] SPECIAL REQUESTS NO SPECIAL REQUEST 05/16/2024 11:21 AM PHYSICAL THERAPY NURSE [facility] GRAM STAIN RESULT GRAM POSITIVE COCCI IN CLUSTERS 05/17/2024 1:03 AM PHYSICAL THERAPY NURSE [facility] GRAM STAIN [facility] 0102 KLS R AND V 05/17/2024 1:03 AM PHYSICAL THERAPY NURSE [facility] CULTURE RESULT STAPHYLOCOCCUS AUREUS IN AEROBIC AND ANAEROBIC BLOOD CULTURE (AA) 05/19/2024 7:[address] [facility] BLOOD SPECIMEN OBTAINED FOR BLOOD CULTURE / Unknown 05/16/2024 11:33 AM PHYSICAL THERAPY NURSE 05/16/2024 11:38 AM PHYSICAL THERAPY NURSE Narrative Organism Antibiotic Method Susceptibility Staphylococcus aureus CLINDAMYCIN MURRAY (VITEK) Sensitive Staphylococcus aureus ERYTHROMYCIN MURRAY (VITEK) Resistant Staphylococcus aureus GENTAMICIN MURRAY (VITEK) Sensitive Staphylococcus aureus OXACILLIN MURRAY (VITEK) Sensitive Staphylococcus aureus PENICILLIN G MURRAY (VITEK) Resistant Staphylococcus aureus RIFAMPIN MURRAY (VITEK) Sensitive Staphylococcus aureus TRIMETH-SULFAMETH. MURRAY (VITEK) Sensitive Staphylococcus aureus TETRACYCLINE MURRAY (VITEK) Sensitive Staphylococcus aureus TIGECYCLINE MURRAY (VITEK) Sensitive Staphylococcus aureus VANCOMYCIN MURRAY (VITEK) Sensitive Mariam Watkins MD MICROBIOLOGY - GENERAL T[facility] Final Result Performing Organization Address [facility] Co de Phone Number [facility] [address] [place] [address], [phone] [facility] [address] [place] [address], * (ABNORMAL) LACTIC ACID W REFLEX (SEPSIS) (05/16/2024 11:33 AM PHYSICAL THERAPY NURSE) Pathologist [facility] LACTIC ACID VENOUS 4.2(HH) 0.4 - 2.0 MMOL/L 05/16/2024 12:04 PM PHYSICAL THERAPY NURSE [facility] Comment: Critical Result(s) Called to and read back by: DR WATKINS ?? at: 12:04:36 ?? 05/16/2024 by ETCR. 05/16/2024 11:3 3 AM PHYSICAL THERAPY NURSE us Mariam Watkins MD LABORATORY Final Resul t Performing Organization Address [facility] Co de Phone Number [facility] [address] [place] [address], * (ABNORMAL) LIPASE (05/16/2024 11:33 AM PHYSICAL THERAPY NURSE) [facility] LIPASE 12(L) 16 - 77 UNITS/L 05/16/2024 12:00 PM PHYSICAL THERAPY NURSE [facility] 05/16/2024 11:3 3 AM PHYSICAL THERAPY NURSE us Mariam Watkins MD LABORATORY Final Resul t Performing Organization Address [facility] Co de Phone Number [facility] [address] [place] [address], * TROPONIN, QUANT (05/16/2024 11:33 AM PHYSICAL THERAPY NURSE) [facility] TROPONIN I HIGH SENSITIVITY 27 0 - 76 ng/L 05/16/2024 12:00 PM PHYSICAL THERAPY NURSE [facility] 05/16/2024 11:3 3 AM PHYSICAL THERAPY NURSE us Mariam Watkins MD LABORATORY Final Resul t [facility] [address] [place] [address], * (ABNORMAL) COMPREHENSIVE METABOLIC PANEL (05/16/2024 11:33 AM PHYSICAL THERAPY NURSE) SODIUM S/P/B 141 136 - 145 MMOL/L 05/16/2024 12:00 PM [facility] POTASSIUM S/P/B 4.7 3.5 - 5.1 MMOL/L 05/16/2024 12:00 PM [facility] CHLORIDE S/P/B 102 98 - 107 MMOL/L 05/16/2024 12:00 PM [facility] CO2 30.3 21.0 - 32.0 MMOL/L 05/16/2024 12:00 PM [facility] GLUCOSE 167(H) 70 - 99 MG/DL 05/16/2024 12:00 PM [facility] Comment: FASTING GLUCOSE 100 TO 125 MG/DL IS CONSISTENT WITH IMPAIRED FASTING GLUCOSE. FASTING GLUCOSE >125 MG/DL IS CONSISTENT WITH DIABETES. RANDOM GLUCOSE >200 MG/DL WITH HYPERGLYCEMIC SYMPTOMS IS CONSISTENT WITH DIABETES. PER ADA GUIDELINES BUN 20 6 - 24 MG/DL 05/16/2024 12:00 PM [facility] CREATININE S/P/B 0.84 0.70 - 1.30 MG/DL 05/16/2024 12:00 PM [facility] CALCIUM S/P/B 8.9 8.4 - 10.5 MG/DL 05/16/2024 12:00 PM [facility] BILIRUBIN TOTAL S/P/B 0.8 0.2 - 1.0 MG/DL 05/16/2024 12:00 PM [facility] Comment: THIS ASSAY IS NOT RECOMMENDED FOR PATIENTS UNDERGOING TREATMENT WITH ELTROMBOPAG DUE TO THE POTENTIAL FOR FALSELY ELEVATED RESULTS. ALKALINE PHOSPHATASE S/P/B 97 45 - 115 U/L 05/16/2024 12:00 PM [facility] AST 14(L) 15 - 37 U/L 05/16/2024 12:00 PM [facility] ALT 16 16 - 63 U/L 05/16/2024 12:00 PM [facility] TOTAL PROTEIN S/P/B 7.6 6.4 - 8.2 G/DL 05/16/2024 12:00 PM [facility] ALBUMIN S/P/B 2.9(L) 3.4 - 5.0 G/DL 05/16/2024 12:00 PM [facility] ANION GAP 8.7 5.0 - 15.0 MMOL/L 05/16/2024 12:00 PM [facility] OSMOLALITY (CALC) 298 MOSM/KG 024 12:00 PM [facility] Comment:REFERENCE RANGE NOT ESTABLISHED GFR ESTIMATE 88(L) >89 ML/MIN/1. 73 M2 05/16/2024 12:00 PM [facility] GFR NOTES GFR REFERENCE S: 05/16/2024 12:00 PM [facility] Comment: THE ESTIMATED GFR IS [...] ml/min/1.73 m2 G5,KIDNEY FAILURE: <15 ml/min/1.73 m2 05/16/2024 11:3 3 AM PHYSICAL THERAPY NURSE us Mariam Watkins MD LABORATORY Final Resul t [facility] [address] [place] [address], * (ABNORMAL) CBC W/DIFF AUTOMATED (05/16/2024 11:33 AM PHYSICAL THERAPY NURSE) WBC 13.44(H) 4.00 - 10.80 x10'3/uL 05/16/2024 11:42 AM [facility] RBC 4.14(L) 4.50 - 6.10 x10'6/uL 05/16/2024 11:42 AM [facility] HGB 11.0(L) 13.0 - 18.0 G/DL 05/16/2024 11:42 AM [facility] HCT 36.0(L) 37.0 - 52.0 % 05/16/2024 11:42 AM [facility] MCV 87.0 78.0 - 100.0 FL 05/16/2024 11:42 AM [facility] MCH 26.6(L) 27.0 - 31.0 PG 05/16/2024 11:42 AM [facility] MCHC 30.6(L) 33.0 - 36.0 G/DL 05/16/2024 11:42 AM [facility] RDW 15.9(H) 11.5 - 14.5 % 05/16/2024 11:42 AM [facility] PLT 256 150 - 350 x10'3/uL 05/16/2024 11:42 AM [facility] MPV 10.0 7.4 - 10.4 FL 05/16/2024 11:42 AM [facility] CBC COMMENT NORMAL REFERENCE RANGE NOT ESTABLISHED FOR THE PROPORTIONAL LEUKOCYTE DIFFERENTIAL. 05/16/2024 11:42 AM [facility] NEUTROPHILS % 93.7 % 05/16/2024 11:42 AM [facility] LYMPHOCYTES % 4.7 % 05/16/2024 11:42 AM [facility] MONOCYTES % 0.6 % 05/16/2024 11:42 AM [facility] EOSINOPHILS % 0.4 % 05/16/2024 11:42 AM [facility] BASOPHILS % 0.1 % 05/16/2024 11:42 AM PHYSICAL THERAPY NURSE [facility] IMMATURE GRANS % 0.5 % 05/16/20 11:42 AM PHYSICAL THERAPY NURSE [facility] NRBC % 0.0 % 05/16/2024 11:42 AM PHYSICAL THERAPY NURSE [facility] ABS. NEUTROPHILS 12.59(H) 1.60 - 8.30 x10'3/uL 05/16/2024 11:42 AM PHYSICAL THERAPY NURSE [facility] ABS. LYMPHOCYTES 0.63(L) 0.80 - 4.70 x10'3/uL 05/16/2024 11:42 AM PHYSICAL THERAPY NURSE [facility] ABS. MONOCYTES 0.08 0.00 - 1.50 x10'3/uL 05/16/2024 11:42 AM PHYSICAL THERAPY NURSE [facility] ABS. EOSINOPHILS 0.06 0.00 - 0.40 x10'3/uL 05/16/2024 11:42 AM PHYSICAL THERAPY NURSE [facility] ABS. BASOPHILS 0.01 0.00 - 0.20 x10'3/uL 05/16/2024 11:42 AM PHYSICAL THERAPY NURSE [facility] ABS. IMMATURE GRANULOCYTES 0.07(H) 0.00 - 0.03 x10'3/uL 05/16/2024 11:42 AM PHYSICAL THERAPY NURSE [facility] ABS. NUCLEATED RBC'S 0.00 0.00 - 0.01 x10'3/uL 05/16/2024 11:42 AM [facility] 05/16/2024 11:3 3 AM PHYSICAL THERAPY NURSE us Mariam Watkins MD LABORATORY Final Resul t [facility] [address] [place] [address], * Critical Care (05/16/2024 11:29 AM PHYSICAL THERAPY NURSE) Narrative Mariam Watkins MD - 05/16/2024 11:29 AM PHYSICAL THERAPY NURSE Mariam Watkins MD ? 05/16/2024 ??3:43 PM [...] PROCEDURE/MINOR SURGICAL OR DERABLES Final Result * ECG 12 lead (05/16/2024 11:07 AM PHYSICAL THERAPY NURSE) 05/16/2024 11:0 7 AM PHYSICAL THERAPY NURSE Narrative [facility] - 05/17/2024 3:53 AM PHYSICAL THERAPY NURSE ? [facility] ?[address] [place] ??[address] ? Test Date: ?2024-05-16 Pat Name: ? ANNIE CROCKER ?Department: ?? 3 ? Room: ? EXAM 5 Gender: ? Male ? [employer] Black Belt Engineer: ?? : ?1945 ? Requested By: MARIAM WATKINS Order Number: [id number] ? Reading : ?? Martin Blue ? Measurements Intervals ?[place] ? Rate: ? 70 ? P: ? HI: ? 0 ?QRS: ?255 QRSD: ? 154 ?T: ?86 QT: ? 400 ? QTc: ?433 ? Interpretive Statements ELECTRONIC VENTRICULAR PACEMAKER ABNORMAL RHYTHM ECG ICAL THERAPY NURSE Procedure Note Martin Blue MD - 05/17/[address] [place] [address] Test Date: 2024-05-16 Pat Name: ANNIE CROCKER Department: 3 Room: EXAM 5 Gender: Male [employer] Black Belt Engineer: : 1945 Requested By: MARIAM WATKINS Order Number: [id number] Reading MD: Martin Blue Measurements Intervals [place] Rate: 70 P: HI: 0 QRS: 255 QRSD: 154 T: 86 QT: 400 QTc: 433 Interpretive Statements ELECTRONIC VENTRICULAR PACEMAKER ABNORMAL RHYTHM ECG ICAL THERAPY NURSE us Mariam Watkins MD ECG ORDERABLES Final Resul t [facility] documented in this encounter Visit Diagnoses Diagnosis Severe sepsis ([facility])- Primary Hematuria Hematuria, unspecified UTI (urinary tract infection) Urinary tract infection, site not specified Dementia ([facility]) Dementia, unspecified, without behavioral disturbance Agitation Other and unspecified special symptom or syndrome, not elsewhere classified documented in this encounter Administered Medications Inactive Administered Medications - up to 3 most recent administrations Medication Order MAR Action Action Date Dose Rate Site acetaminophen (TYLENOL) tablet 650 mg 650 mg, Oral, Once, 1 dose, On Thu05/16/24 at 1500, Maximum dose of acetaminophen is 4000 mg from all sources in 24 hours. Given 05/16/2024 2:54 PM PHYSICAL THERAPY NURSE 650 mg acetaminophen (TYLENOL) tablet 650 mg 650 mg, Oral, Once, 1 dose, On Thu05/16/24 at 1930, Maximum dose of acetaminophen is 4000 mg from all sources in 24 hours. Given 05/16/2024 7:54 PM PHYSICAL THERAPY NURSE 650 mg cefTRIAXone (ROCEPHIN) 1 g in sodium chloride 0.9 % 50 mL IVPB 1 g, Intravenous, at 100 mL/hr, Once, 1 dose, On Thu05/16/24 at 1400 New Bag 05/16/2024 2:05 PM PHYSICAL THERAPY NURSE 1 g 100 mL/hr sodium chloride 0.9% bolus infusion 1,000 mL 1,000 mL, Intravenous, Administer over 60 Minutes, Once, 1 dose, On Thu05/16/24 at 1400 New Bag 05/16/2024 2:05 PM PHYSICAL THERAPY NURSE 1,000 mLs 1000 mL/hr sodium chloride 0.9% infusion at 100 mL/hr, Intravenous, Continuous, Starting on Thu05/16/24 at 1730, Until Thu05/16/24 at 2112 New Bag 05/16/2024 5:34 PM PHYSICAL THERAPY NURSE 100 mL/hr documented in this encounter Active and Recently Administered Medications Times are shown in PHYSICAL THERAPY NURSE. Scheduled Medication Order 05/14/2024 05/15/2024 05/16/2024 acetaminophen (TYLENOL) tablet 650 mg (COMPLETED) 650 mg, Oral, Once, 1 dose, On Thu05/16/24 at 1500, Maximum dose of acetaminophen is 4000 mg from all sources in 24 hours. 1454 (Given - Provid er: Gladys Manuel RN) acetaminophen (TYLENOL) tablet 650 mg (COMPLETED) 650 mg, Oral, Once, 1 dose, On Thu05/16/24 at 1930, Maximum dose of acetaminophen is 4000 mg from all sources in 24 hours. 1954 (Given - Provid er: Hermelinda Ramesh RN) cefTRIAXone (ROCEPHIN) 1 g in sodium chloride 0.9 % 50 mL IVPB (COMPLETED) 1 g, Intravenous, at 100 mL/hr, Once, 1 dose, On Thu05/16/24 at 1400 1405 (New Bag - Prov ider: Gladys Manuel RN)1430 (Infusion Stop Time - Provider: Gladys Manuel RN) sodium chloride 0.9% bolus infusion 1,000 mL (COMPLETED) 1,000 mL, Intravenous, Administer over 60 Minutes, Once, 1 dose, On Thu05/16/24 at 1400 1405 (New Bag - Prov ider: Gladys Manuel RN)1450 (Infusion Stop Time - Provider: Gladys Manuel RN) Continuous Medication Order 05/14/2024 05/15/2024 05/16/2024 sodium chloride 0.9% infusion at 100 mL/hr, Intravenous, Continuous, Starting on Thu05/16/24 at 1730, Until Thu05/16/24 at 2112 1734 (New Bag - Prov ider: Gladys Manuel RN)2003 (Infusing on Discharge from Facility - Provider: Gladys Manuel RN) documented in this encounter Additional Health Concerns Infection Onset Date Last Indicated Resolved Time COVID-19 Rule Out 05/16/2024 05/16/2024 05/16/2024 12:28 PM PHYSICAL THERAPY NURSE documented as of this encounter Care Teams Pill Coater Relationship Specialty Start Date End Date Abdon Villela MD [address] [place] [address] [place] [address] PCP - General FAMILY PRACTICE 12/17/15 Madan Palomo MD [address] [place] [address] EP Clinical Laboratory Technologist CLINICAL CARDIAC ELECTROPHYSIOLOGY 10/08/21 Norma Rowland PA-C [address] [place] [address] Referring Physician PHYSICIAN DIETARY DIRECTOR 12/31/23 documented as of this encounter
--- OUTSIDE RECORDS SUMMARY | 2024-06-08 06:08 | XMS_ITS | Encounter Summary ---
Author Organization [facility] Address [facility] [place] [address] [place] [address] Care Team Providers Care Handicapper [employer] Name Role Phone Abdon Villela MD Primary Care Provider [phone] Pernell Vance MD Unavailable UnavailKamilla Lazaro NP Unavailable Unavailable Madan Palomo MD Unavailable [phone] Encounter Details Date Type Department Care Team (Latest Contact Info) Description 12/08/2023 Travel Social History Tobacco Use Types Packs/Day Years Used Date Smoking Tobacco: Former Cigarettes 1 29.6 0 02/14/1966 - 10/07/1995 Pipe Smokeless Tobacco: Never Alcohol Use Standard Drinks/Week Comments No 0 (1 standard drink = 0.6 oz pur e alcohol) [facility] Utilities Answer Date Recorded In the past 12 months has [facility] [employer], gas, oil, or water [employer] threatened to shut off services in your [...] Never 07/27/2023 How often do you attend protestant or pentecostal serv ices? Never 07/27/2023 Do you belong to any clubs o r organizations such as protestant groups, unions, fraternal or athletic groups, or [...] heating? Not hard at all 07/27/2023 [facility] Occupational Stress Questionnaire Answer [...] in a mcc (including now)? No 07/27/2023 Sex and Gender [...] Assessment Author Status No 07/27/2023 10:44 AM LEASING MACHINE TENDER Zamzam Zavala R N Active * Are you blind or do you have serious difficulty seeing, even when wearing glasses? Answer Date of Assessment Author Status No 07/27/2023 10:44 AM LEASING MACHINE TENDER Olga Zavalayl A R N Active * Do you have serious difficulty walking or climbing stairs? Answer Date of Assessment Author Status Yes 07/27/2023 10:44 AM LEASING MACHINE TENDER Olga Zavalayl A R N Active * Do you have difficulty dressing or bathing? Answer Date of Assessment Author Status Yes 07/27/2023 10:44 AM LEASING MACHINE TENDER ApkeOlgayl A R N Active * Because of a physical, mental, or emotional condition, do you have difficulty doing errands alone such as visiting a doctor's office or shopping? Answer Date of Assessment Author Status Yes 07/27/2023 10:44 AM LEASING MACHINE TENDER BillkeZamzam R N Active documented as of this encounter Mental Status * Because of a physical, mental, or emotional condition, do you have serious difficulty concentrating, remembering, or making decisions? Answer Entry Date Author Status No 07/27/2023 10:44 AM LEASING MACHINE TENDER Zamzam Zavala R N Active documented in this encounter Plan of Treatment Upcoming Encounters Date Type Department Care Team (Latest Contact Info) Description 06/09/2024 2:20 PM LEASING MACHINE TENDER Telemedicine [facility] [address] [place] [address] Earnest Drake MD [address] [place], [place] [id number] 06/21/2024 1:30 AM LEASING MACHINE TENDER Allied Health/Nurse Visit [facility] [address] [place] [address] Madan Palomo MD [address], [place] [address] 03/01/2025 11:00 AM CDT Allied Health/Nurse Visit [facility] [place] [address] [place] [phone] Norma Rowland PA-C [address] [place], [place] [address] 03/01/2025 11:00 AM CDT Office Visit [facility] [place] [address] [place] [phone] Norma Rowland PA-C [address] [place] [phone] documented as of this encounter Visit Diagnoses Not on filedocumented in this encounter Care Teams Handicapper [employer] Relationship Specialty Start Date End Date Abdon Villela MD [address] [place] [phone] PCP - General FAMILY PRACTICE 12/17/15 Pernell Vance MD [address] [place] [address] Consulting Physician CARDIOVASCULAR DISEASE 07/05/1901/30 Kamilla Oliveira NP [address] [facility] [place] [address] Referring Physician Nurse Practitioner Family 10/08/2104/14 Madan Palomo MD [address] [place] [address] EP Information Management Officer CLINICAL CARDIAC ELECTROPHYSIOLOGY 10/08/21 documented as of this encounter
--- OUTSIDE RECORDS SUMMARY | 2024-06-08 06:08 | XMS_ITS | Encounter Summary ---
Author Organization [facility] Address [facility] [place] [address] [place] [address] Care Team Providers Care Director Wholesale Name Role Phone Abdon Villela MD Primary Care Provider [phone] Pernell Vance MD Unavailable UnavailKamilla Lazaro NP Unavailable Unavailable Madan Palomo MD Unavailable [phone] Encounter Details Date Type Department Care Team (Latest Contact Info) Description 12/15/2023 Travel Social History Tobacco Use Types Packs/Day Years Used Date Smoking Tobacco: Former Cigarettes 1 29.6 0 02/14/1966 - 10/07/1995 Pipe Smokeless Tobacco: Never Alcohol Use Standard Drinks/Week Comments No 0 (1 standard drink = 0.6 oz pur e alcohol) [facility] Utilities Answer Date Recorded In the past 12 months has [facility] [employer], gas, oil, or water [employer] threatened to shut off services in your [...] How often do you attend mormon or moravian serv ices? Never 07/27/2023 Do you belong [...] [facility] - Occupational Stress Questionnaire Answer [...] Assessment Author Status No 07/27/2023 10:44 AM WINDMILL MECHANIC Zamzam Zavala R N Active * Are you blind or do you have serious difficulty seeing, even when wearing glasses? Answer Date of Assessment Author Status No 07/27/2023 10:44 AM WINDMILL MECHANIC Olga Zavalayl A R N Active * Do you have serious difficulty walking or climbing stairs? Answer Date of Assessment Author Status Yes 07/27/2023 10:44 AM WINDMILL MECHANIC Olga Zavalayl A R N Active * Do you have difficulty dressing or bathing? Answer Date of Assessment Author Status Yes 07/27/2023 10:44 AM WINDMILL MECHANIC ApkeOlgayl A R N Active * Because of a physical, mental, or emotional condition, do you have difficulty doing errands alone such as visiting a doctor's office or shopping? Answer Date of Assessment Author Status Yes 07/27/2023 10:44 AM WINDMILL MECHANIC BillkeZamzam R N Active documented as of this encounter Mental Status * Because of a physical, mental, or emotional condition, do you have serious difficulty concentrating, remembering, or making decisions? Answer Entry Date Author Status No 07/27/2023 10:44 AM WINDMILL MECHANIC Zamzam Zavala R N Active documented in this encounter Plan of Treatment Upcoming Encounters Date Type Department Care Team (Latest Contact Info) Description 06/09/2024 2:20 PM WINDMILL MECHANIC Telemedicine [facility] [address] [place] [address] Earnest Drake MD [address] [place], [place] [id number] 06/21/2024 1:30 AM WINDMILL MECHANIC Allied Health[facility]urse [facility] [address] [place] [address] Madan Palomo MD [address] [place], [place] [address] 03/01/2025 11:00 AM CDT Allied Health/Nurse Visit [facility] [address] [place] [phone] Norma Rowland PA-C [address] [place], [place] [phone] 03/01/2025 11:00 AM CDT Office Visit [facility] [address] [place] [address] Norma Rowland PA-C [address] [place] [phone] documented as of this encounter Visit Diagnoses Not on filedocumented in this encounter Care Teams Director Wholesale Relationship Specialty Start Date End Date Abdon Villela MD [address] [place] [phone] PCP - General FAMILY PRACTICE 12/17/15 Pernell Vance MD [address] [place] [address] Consulting Physician CARDIOVASCULAR DISEASE 07/05/1901/30 Kamilla Oliveira NP [address] [facility] [place] [address] Referring Physician Nurse Practitioner Family 10/08/2104/14 Madan Palomo MD [address] [place] [address] EP Business Supervisor CLINICAL CARDIAC ELECTROPHYSIOLOGY 10/08/21 documented as of this encounter
--- OUTSIDE RECORDS SUMMARY | 2024-06-08 06:08 | XMS_ITS | Encounter Summary ---
Author Organization [facility] Address [address] [place] [address]. [place] [address] [place] [address] Care Team Providers Care Manager Camp Name Role Phone Abdon Villela MD Primary Care Provider [phone] Madan Palomo MD Unavailable [phone] Norma Rowland PA-C Unavailable [phone] Encounter Details Date Type Department Care Team (Late st Contact Info) Description 03/23/2024 10:36 AM CDT - 03/23/2024 11:59 PM [facility] Hospital Encounter [facility] [address] [place] [address] Chris Oliva MD [address] [place] [address] Discharge Disposition: Home or Self Care (Routine Discharge) Social History Tobacco Use Types Packs/Day Years Used Date Smoking Tobacco: Former Cigarettes 1 29.6 0 02/14/1966 - 10/07/1995 Pipe Smokeless Tobacco: Never Alcohol Use Standard Drinks/Week Comments No 0 (1 standard drink = 0.6 oz pur e alcohol) [facility] Utilities Answer Date Recorded In the [...] Never 07/27/2023 How often do you attend baptist or shinto serv ices? Never 07/27/2023 Do you belong to any clubs o r organizations such as baptist groups, unions, fraternal or athletic groups, or [...] and heating? Not hard at all 07/27/2023 [facility] [place] [facility] - Occupational Stress [...] place to sleep or slept in a skilled nursing (including now)? No 07/27/2023 Sex and Gender [...] Assessment Author Status No 07/27/2023 10:44 AM PHP SOFTWARE ENGINEER Zamzam Zavala R N Active * Do you have serious difficulty walking or climbing stairs? Answer Date of Assessment Author Status Yes 07/27/2023 10:44 AM PHP SOFTWARE ENGINEER Zamzam Zavala R N Active * Do you have difficulty dressing or bathing? Answer Date of Assessment Author Status Yes 07/27/2023 10:44 AM PHP SOFTWARE ENGINEER Zamzam Zavala R N Active * Because [...] (Latest Contact Info) Description 06/09/2024 2:20 PM PHP SOFTWARE ENGINEER Telemedicine [facility] [address] [place] [address] Earnest Drake MD [address] [place], [place] [phone] 06/21/2024 1:30 AM PHP SOFTWARE ENGINEER Allied Health/Nurse Visit [facility] [address] [place] [address] Madan Palomo MD [address] [place] [address] 03/01/2025 11:00 AM CDT Allied Health/Nurse Visit [address] [place] [address] Norma Rowland PA-C [address] [place], [place] [address] [phone] 03/01/2025 11:00 AM CDT Office Visit [address] [place] [address] Norma Rowland PA-C [address] [place], [place] [phone] documented as of this encounter Procedures Procedure Name Priority Date/Time Associated Diagnosis Comments OCCULT BLOOD, FECES Routine 03/23/2024 9 :05 AM CDT Anemia documented in this encounter Results * OCCULT BLOOD, FECES, DIAGNOSTIC (03/23/2024 9:05 AM CDT) OCCULT BLOOD FECAL NEGATIVE NEGATIVE 03/23/2024 10:49 AM CDT [facility] STOOL SPECIMEN / Unknown 03/23/2024 9:05 AM CDT Chris Oliva MD BODY FLUIDS AND STOOLS TU CARPIO Final Result [facility] [address] [place] [address], documented in this encounter Visit Diagnoses Diagnosis Anemia Anemia, unspecified documented in this encounter Care Teams Manager Camp Relationship Specialty Start Date End Date Abdon Villela MD [address] [place] [phone] PCP - General FAMILY PRACTICE 12/17/15 Madan Palomo MD [address] [place] [address] EP Mortgage Loan Interviewer CLINICAL CARDIAC ELECTROPHYSIOLOGY 10/08/21 Norma Rowland PA-C [address] [place] [address] Referring Physician PHYSICIAN BLUNGER LOADER 12/31/23 documented as of this encounter
--- OUTSIDE RECORDS SUMMARY | 2024-06-08 06:08 | XMS_ITS | Encounter Summary ---
Author Organization [facility] Address [facility] [address] [place] [address] Care Team Providers Care Coconut Candy Maker Name Role Phone Abdon Villela MD Primary Care Provider [phone] Pernell Vance MD Unavailable UnavailKamilla Lazaro NP Unavailable Unavailable Madan Palomo MD Unavailable [phone] Reason for Referral * Imaging (Emergency) - New Request Specialty Diagnoses / Procedures Referred By Contac t Referred To Contact RADIOLOGY Procedures CT ABD+PEL WO CON Larissa Roy DO [address] [place] [address] Phone: tel: fax: Referral ID Status Reason Start Date Expiration Date V isits Requested Visits Authorized [id number] New Request 12/09/2023 12/08/2024 1 1 * Imaging (Emergency) - New Request Specialty Diagnoses / Procedures Referred By Contac t Referred To Contact RADIOLOGY Procedures CT ABD+PEL W IV CON ONLY Larissa Roy DO [address] [place] [address] Phone: tel: fax: Referral ID Status Reason Start Date Expiration Date V isits Requested Visits Authorized [id number] New Request 12/09/2023 12/08/2024 1 1 Reason for Visit * Reason Comments Abdominal Pain Encounter Details Date Type Department Care Team (Late st Contact Info) Description 12/09/2023 1:41 PM CDT - 12/09/2023 5:30 PM CDT Emergency [facility] [place] [address] Larissa Roy DO [address] [place], [place] [id number] Abdominal Pain Discharge Disposition: Assisted Facility Social History Tobacco Use Types Packs/Day Years Used Date Smoking Tobacco: Former Cigarettes 1 29.6 0 02/14/1966 - 10/07/1995 Pipe Smokeless Tobacco: Never Alcohol Use Standard Drinks/Week Comments No 0 (1 standard drink = 0.6 oz pur e alcohol) [facility] Utilities Answer Date Recorded In the past 12 months has [employer], gas, oil, or water Visual [employer] threatened to shut off services in your [...] Never 07/27/2023 How often do you attend zoroastrian or mandaen serv ices? Never 07/27/2023 Do you belong to any clubs o r organizations such as zoroastrian groups, unions, fraternal or athletic groups, or [...] and heating? Not hard at all 07/27/2023 [facility] - Occupational Stress [...] in a usp (including now)? No 07/27/2023 Sex and Gender [...] Sign Reading Time Taken Comments Blood Pressure 107/57 12/09/2023 4:15 PM CDT Pulse 60 12/09/2023 4:15 PM CDT Temperature 36.7 ??C (98.1 ??F) 12/09/2023 1:51 PM CD T Respiratory Rate 15 12/09/2023 4:15 PM CDT Oxygen Saturation 100% 12/09/2023 4:15 PM CDT Inhaled Oxygen Concentration - - Weight 102.1 kg (225 lb) 12/09/2023 1:51 PM CDT Height 182.9 cm (6') 12/09/2023 1:51 PM CDT Body Mass Index 30.52 12/09/2023 1:51 PM CDT documented in this encounter Functional Status * Are you deaf or do you have serious difficulty hearing Answer Date of Assessment Author Status No 07/27/2023 10:44 AM STORAGE MANAGER Apke Zamzam A R N Active * Are you blind or do you have serious difficulty seeing, even when wearing glasses? Answer Date of Assessment Author Status No 07/27/2023 10:44 AM STORAGE MANAGER Apke Zamzam A, R N Active * Do you have serious difficulty walking or climbing stairs? Answer Date of Assessment Author Status Yes 07/27/2023 10:44 AM STORAGE MANAGER Apke Zamzam A, R N Active * Do you have difficulty dressing or bathing? Answer Date of Assessment Author Status Yes 07/27/2023 10:44 AM STORAGE MANAGER Apke, Zamzam A, R N Active * Because of a physical, mental, or emotional condition, do you have difficulty doing errands alone such as visiting a doctor's office or shopping? Answer Date of Assessment Author Status Yes 07/27/2023 10:44 AM STORAGE MANAGER Apke Zamzam A, R N Active documented as of this encounter Mental Status * Because of a physical, mental, or emotional condition, do you have serious difficulty concentrating, remembering, or making decisions? Answer Entry Date Author Status No 07/27/2023 10:44 AM Zamzam King R N Active documented in this encounter Discharge Instructions * Discharge Instructions* Larissa Roy DO - 12/09/2023 4:36 PM CDT Take antibiotics as prescribed * Attachments The following attachments cannot be sent through Care Everywhere. * Acute Cystitis Discharge Instructions (Divehi) documented in this encounter Medications at Time [...] daily. 03/02/2024 documented as of this encounter ED Notes * Carmen Tomlin RN - 12/09/2023 5:25 PM CDT [place] [facility] here to transport pt back to [facility]. * Carmen Tomlin RN - 12/09/2023 4:30 PM CDT Pt denies any pain at present time. * Carmen Tomlin RN - 12/09/2023 4:29 PM CDT Report called to [facility]. * Carmen Tomlin RN - 12/09/2023 4:[address] Roy talking with Dr. Zoraida Villela. Pt to be discharged back to [facility]. * Carmen Tomlin RN - 12/09/2023 3:51 PM CDT Pt resting with eyes closed. Sp02 88% on ra. When pt awakens spo2 up to 94%. Pt placed on 2l per nc. Pt voices no needs. * Carmen Tomlin RN - 12/09/2023 2:40 PM CDT Pt resting with eyes closed. No distress noted. * Carmen Tomlin RN - 12/09/2023 2:25 PM CDT Pt returns from ct. * Larissa Roy DO - 12/09/2023 1:49 PM CDTAssociated Order(s): EKG Reading Chief Complaint Chief Complaint Patient presents with Abdominal Pain History of Present Illness History provided by EMS. 78-year-old male presents emergency department from care home for abdominal pain Nursing staff called emergency department, patient has been screaming in pain standing outside of his door. Nursingstaff initially thought he was having some chest pain. EMS does report some vomiting. Upon arrival by EMS, patient had a normal blood pressure, was given nitro with decrease in blood pressure. Patient is also reporting abdominal pain. Medical History ALLERGIES: Review of patient's allergies indicates: No Known Allergies MEDICATIONS: Prior to Admission medications Medication Sig [...] total) by mouth 2 (two) times daily. 07/31/23 Yes Sandra Short NP ciprofloxacin (CIPRO) 500 MG tablet Take 1 tablet (500 mg total) by mouth 2 (two) times daily for 7days. 12/09/23 12/16/23 Yes Larissa Roy DO ferrous sulfate EC 325 (65 Fe) MG tablet Take 1 tablet by mouth daily. Yes Default History Genericprovider finasteride (PROSCAR) 5 MG tablet Take 1 tablet (5 mg total) by mouth daily. Yes Default History Genericprovider furosemide (LASIX) 40 MG tablet Take 1 tablet (40 mg total) by mouth daily. 08/01/23 Yes Sandra Short NP lisinopril (PRINIVIL) 40 MG tablet Take 10 mg by mouth daily. Yes Default History Genericprovider loperamide (IMODIUM) 2 MG capsule Take 1 [...] times daily. 09/13/14 Yes Doc [facility] polyethylene glycol powder Take 17 g by mouth daily as needed (constipation). 06/11/18 Yes Doc [facility] potassium chloride CR (KLOR-CON M) 20 MEQ tablet Take 1 tablet (20 mEq total) by mouth daily. 08/01/23 Yes Sandra Short NP tamsulosin (FLOMAX) 0.4 MG Cap Take 1 capsule (0.4 mg total) by mouth daily. 11/27/23 Yes Lionel Banegas DO vitamin B-12 1000 MCG tablet Take 1 tablet (1,000 mcg total) by mouth daily. Yes Doc [facility] nitroglycerin (NITROSTAT) 0.[address] 1 tablet (0.4 mg total) under the tongue every 5 (five) minutes as needed for Chest Pain. Default History Genericprovider PAST MEDICAL HISTORY: Past Medical History: Diagnosis Date A-fib ([facility]) BPH (benign prostatic hyperplasia) CHF (congestive heart failure) ([facility]) Coronary artery disease Dementia without behavioral disturbance ([facility]) Diabetes mellitus ([facility]) Disorder of prostate HLD (hyperlipidemia) Hyperlipidemia Hypertension Pacemaker 09/10/2022 Respiratory failure ([facility]) Sick sinus syndrome ([facility]) Urinary retention PAST SURGICAL HISTORY: Past [...] 02/14/1966 Quit date: 10/07/1995 Years since quittin.1 Smokeless tobacco: Never Substance Use Topics Alcohol use: No Drug use: No Review of Systems Review of Systems Physical Exam Filed Vitals: 12/09/23 1530 12/09/23 1545 12/09/23 1600 12/09/23 1615 BP: 103/55 100/51 107/57 Pulse: 60 60 60 60 Resp: 14 15 14 15 Temp: TempSrc: SpO2: 100% 100% 99% 100% Weight: Height: Physical Exam Vitals and nursing note reviewed. Constitutional: General: He is not in acute distress. Appearance: Normal appearance. He is not ill-appearing. HENT: Head: Normocephalic and atraumatic. Right Ear: External ear normal. Left Ear: External ear normal. Nose: Nose normal. Mouth/Throat: Mouth: Mucous membranes are moist. Pharynx: Oropharynx is clear. Eyes: Extraocular Movements: Extraocular movements intact. Conjunctiva/sclera: Conjunctivae normal. Pupils: Pupils are equal, round, and reactive to light. Cardiovascular: Rate and Rhythm: Normal rate and regular rhythm. Pulses: Normal pulses. Heart sounds: Normal heart sounds. Pulmonary: Effort: Pulmonary effort is normal. No respiratory distress. Breath sounds: Normal breath sounds. Abdominal: Tenderness: There is abdominal tenderness (Upper abdomen). Comments: Umbilical hernia Musculoskeletal: Cervical back: Normal range of motion and neck supple. No rigidity. No muscular tenderness. Right lower leg: Edema present. Left lower leg: Edema present. Skin: General: Skin is warm and dry. Capillary Refill: Capillary refill takes less than 2 seconds. Neurological: General: No focal deficit present. Mental Status: He is alert. Motor: Weakness present. Comments: A+Ox2 Psychiatric: Mood and Affect: Mood normal. Behavior: Behavior normal. Diagnostic Studies / Procedures ELECTROCARDIOGRAMS: Results for orders placed or performed during the hospital encounter of 12/09/23 ECG 12 lead [address]arr[address] [place] [address] Test Date: 2023-12-09 Pat Name: ANNIE CROCKER Department: 3 Room: EXAM 606 Gender: Male Shank Burnisher: : 1945 Requested By: LARISSA ROY Order Number: [id number] Reading MD: Trip Fonseca Measurements Intervals [place] Rate: 65 P: [place]: 0 QRS: 264 QRSD: 153 T: 87 QT: 464 QTc: 486 Interpretive Statements ELECTRONIC VENTRICULAR PACEMAKER ABNORMAL RHYTHM ECG LABORATORY STUDIES: Results for orders placed or performed during the hospital encounter of 12/09/23 CBC W/DIFF AUTOMATED Result Value Ref Range WBC 10.50 4.00 - 10.80 x10'3/uL RBC 3.53 (L) 4.50 - 6.10 x10'6/uL HGB 9.6 (L) 13.0 - 18.0 G/DL HCT 30.8 (L) 37.0 - 52.0 % MCV 87.3 78.0 - 100.0 FL MCH 27.2 27.0 - 31.0 PG MCHC 31.2 (L) 33.0 - 36.0 G/DL RDW 16.8 (H) 11.5 - 14.5 % PLT 252 150 - 350 x10'3/uL MPV 10.4 7.4 - 10.4 FL CBC COMMENT NORMAL REFERENCE RANGE NOT ESTABLISHED FOR THE PROPORTIONAL LEUKOCYTE DIFFERENTIAL. NEUTROPHILS 89.8 % LYMPHOCYTES 7.0 % MONOCYTES 2.1 % EOSINOPHILS 0.4 % BASOPHILS 0.2 % IMMATURE GRANS 0.5 % NRBC 0.0 % ABS. NEUTROPHILS 9.43 (H) 1.60 - 8.30 x10'3/uL ABS. LYMPHOCYTES 0.74 (L) 0.80 - 4.70 x10'3/uL ABS. MONOCYTES 0.22 0.00 - 1.50 x10'3/uL ABS. EOSINOPHILS 0.04 0.00 - 0.40 x10'3/uL ABS. BASOPHILS 0.02 0.00 - 0.20 x10'3/uL ABS. IMMATURE GRANULOCYTES 0.05 (H) 0.00 - 0.03 x10'3/uL ABS. NUCLEATED RBC'S 0.00 0.00 - 0.01 x10'3/uL COMPREHENSIVE METABOLIC PANEL Result Value Ref Range SODIUM S/P/B 136 136 - 145 MMOL/L POTASSIUM S/P/B 5.1 3.5 - 5.1 MMOL/L CHLORIDE S/P/B 100 98 - 107 MMOL/L CO2 28.4 21.0 - 32.0 MMOL/L GLUCOSE 198 (H) 70 - 99 MG/DL BUN 49 (H) 6 - 24 MG/DL CREATININE S/P/B 1.47 (H) 0.70 - 1.30 MG/DL CALCIUM S/P/B 8.6 8.4 - 10.5 MG/DL BILIRUBIN TOTAL S/P/B 0.8 0.2 - 1.0 MG/DL ALKALINE PHOSPHATASE S/P/B 61 45 - 115 U/L AST 11 (L) 15 - 37 U/L ALT 8 (L) 16 - 63 U/L TOTAL PROTEIN S/P/B 5.7 (L) 6.4 - 8.2 G/DL ALBUMIN S/P/B 2.2 (L) 3.4 - 5.0 G/DL ANION GAP 7.6 5.0 - 15.0 MMOL/L OSMOLALITY (CALC) 300 MOSM/KG GFR ESTIMATE 48 (L) >89 ML/MIN/1.73 M2 GFR NOTES GFR REFERENCES: TROPONIN, QUANT Result Value Ref Range TROPONIN I HIGH SENSITIVITY 23 0 - 76 ng/L LIPASE Result Value Ref Range LIPASE 14 (L) 16 - 77 UNITS/L MAGNESIUM Result Value Ref Range MAGNESIUM 1.2 (L) 1.8 - 2.4 MG/DL PRO-BRAIN NATRIURETIC PEPTIDE Result Value Ref Range PRO-B TYPE NATRIURETIC PEPTIDE 2,097 (H) <450 PG/ML URINALYSIS Result Value Ref Range COLOR (U) YELLOW TRANSPARENCY SLIGHTLY CLOUDY SPECIFIC GRAVITY (U) 1.015 1.000 - 1.025 U PH 7.5 5.0 - 8.0 LEUKOCYTES (U) 1+ (A) NEGATIVE NITRITES POSITIVE (A) NEGATIVE PROTEIN RANDOM (U) 1+ (A) NEGATIVE GLUCOSE (U) NEGATIVE NEGATIVE KETONES (U) NEGATIVE NEGATIVE UROBILINOGEN 1.0 (H) <1.0 EU/DL BILIRUBIN (U) NEGATIVE NEGATIVE BLOOD (U) 1+ (A) NEGATIVE WBC/HPF 20-50 (A) 0 - 5 /HPF RBC/HPF 0-5 0 - 5 /HPF BACTERIA (U) 3+ /HPF MUCUS PRESENT AMORPHOUS SEDIMENT PRESENT OTHER CASTS (U) HYALINE /LPF IMAGING STUDIES CT ABD+PEL WO CON Final Result by User, [email or web address] (12/08 153) Examination: CT ABD+PEL WO CON Exam time: [...] the moderate colonic stool burden. Colonic diverticula with no diverticulitis. Thickening or pseudothickening of the collapsed [...] BASE, SUSPICIOUS FOR PNEUMONITIS. Ordered By: LARISSA ROY Interpreted By: Pernell Dawson MD, 12/09/2023 3:[address] ABD+PEL W IV CON ONLY Final Result by User, [id number] (12/08 7743) Examination: CT ABD+PEL W CON Exam time: [...] no bowel wall pneumatosis or free air. Minimal free fluid, most notable in the right paracolic gutter. No abscess. Moderate stool in normal caliber colon and rectum. Colonic diverticula with no [...] which appear similar to the prior exam. IMPRESSION: MODERATE GRADE PARTIAL SMALL BOWEL OBSTRUCTION SECONDARY TO A SHORT SEGMENT OF MID JEJUNAL BOWEL AND FAT-CONTAINING UMBILICAL HERNIA. NO PNEUMATOSIS OR FREE AIR. MILD BOWEL WALL THICKENING AND FREE FLUID. COLONIC DIVERTICULA WITH NO DIVERTICULITIS. THICKENING OR PSEUDOTHICKENING OF THE COLLAPSED URINARY BLADDER. CORRELATION WITH URINALYSIS RECOMMENDED. MODERATE PROSTATE ENLARGEMENT. INTERVAL DEVELOPMENT OF NUMEROUS RETICULONODULAR TREE-IN-BUD OPACITIES IN THE POSTERIOR RIGHT LOWER LOBE, SUSPICIOUS FOR PNEUMONITIS. ADDITIONAL STABLE BILATERAL CALCIFIED NONCALCIFIED PULMONARY NODULES. Ordered By: LARISSA ROY Interpreted By: Pernell Dawson MD, 12/09/2023 2:47 PM XR CHEST PORTABLE Final Result by User, [id number] (12/08 6060) Examination: XR CHEST PORTABLE Exam time: 12/09/2023 2:26 PM Clinical history: Chest pain. Comparison: Chest from 07/27/2023. Technique: AP upright view the chest obtained. Findings: Allowing for technical factors, there is residual or recurrent predominantly interstitial opacities, more notable in the peripheral right mid and upper lung and both bases. Small effusions. Heart size and pulmonary vascular caliber is magnified. These likely reflect exacerbation of congestive heart failure/fluid overload or interstitial pneumonitis. IMPRESSION: PROBABLE ACUTE CONGESTIVE HEART FAILURE/FLUID OVERLOAD AND/OR INTERSTITIAL PNEUMONITIS Ordered By: LARISSA ROY Interpreted By: Pernell Dawson MD, 12/09/2023 3:02 PM EKG Reading Date/Time: 12/09/2023 1:46 PM Performed by: Larissa Roy DO Authorized by: Larissa Roy DO Interpreted by ED physician Rhythm: paced Rate: normal BPM: 65 Clinical impression: abnormal ECG Comments: Ventricular paced at 65, complete capture, wide QRS, nonspecific ST segment changes ED Course / Medical Decision Making 3:15PM - re-evaluated patient, abdominal pain improved 4:20PM - discussed case with stella Calhoun to send back to care home. Medical Decision Making Patient presented with abdominal pain from care home. Per EMS, patient had a normal blood pressure, but was given nitro as they were concerned about possible chest pain. Unfortunately, the nitroglycerin dropped to the blood pressure. Patient was given IV fluids in the emergency department with improvement of blood pressure. CT scan concerning for bowel obstruction from umbilical hernia. I was able to reduce the hernia in the emergency department with resolution of pain. Blood work shows elevated creatinine, and urine concerning for urinary tract infection. Did give patient a total of 2 L in the emergency department. Additionally, gave patient 2 g of Rocephin. I discussed case with svitlana Calhoun to send back to care home, will discharge patient with prescription for antibiotics. Problems Addressed: Acute cystitis with hematuria: acute illness or injury CECILLE (acute kidney injury) (CMS/HCC): acute illness or injury Reducible umbilical hernia: acute illness or injury Amount and/or Complexity of Data Reviewed Labs: ordered. Decision-making details documented in ED Course. Radiology: ordered and independent interpretation performed. Decision-making details documented in ED Course. Details: I reviewed and interpreted the first CT scan of abdomen/pelvis, umbilical hernia causing abowel obstruction. Clinical Impression Acute cystitis with hematuria (Primary) CECILLE (acute kidney injury) (CMS/HCC) Reducible umbilical hernia Disposition: Discharge Larissa Roy DO 12/09/23 1820 * Carmen Tomlin RN - 12/09/2023 1:41 PM CDT Pt arrives per ems from [facility]. Staff reports pt c/o cp. Staff reports pt has also be c/o lower abd pain for awhile and currently has an indwelling hill for an enlarged prostate. Pt arrives awake but pale. Ems reports gave I nitro which dropped pt blood pressure. Pt alert to place and person. Pt states c/o abd pain. Dr. Roy in room. documented in this encounter Plan of Treatment Upcoming Encounters Date Type Department Care Team (Latest Contact Info) Description 06/09/2024 2:20 PM STORAGE MANAGER Telemedicine [facility] Multispecial[facility] [address] [place] [phone] Earnest Drake MD [address] [place], [place] [id number] 06/21/2024 1:30 AM STORAGE MANAGER Allied Health/Nurse Visit [facility] [address] [place] [address] Madan Palomo MD [address] [place] [address] 03/01/2025 11:00 AM CDT Allied Health/Nurse Visit [facility] [place] [address] [place] [address] Norma Rowland PA-C [address] [place] [address] 03/01/2025 11:00 AM CDT Office Visit [place] [address] [place] [address] Norma Rowland PA-C [address] [place] [address] documented as of this encounter Procedures Procedure Name Priority Date/Time Associated Diagnosis Comments CT ABD+PEL WO CON STAT 12/09/2023 2:5 6 PM CDT HC URINALYSIS AUTO W/MICRO STAT 12/09/2023 2:45 PM CDT URINE BACTERIA CULTURE STAT 2:[address] ABD+PEL W CON STAT 12/09/2023 2:27 PM CDT XR CHEST PORTABLE STAT 12/09/2023 2:2 6 PM CDT PRO-BRAIN NATRIURETIC PEPTIDE STAT 12/09/2023 1:58 PM CDT COMPREHENSIVE METABOLIC PANEL STAT 12/09/2023 1:58 PM CDT CBC W/DIFF AUTOMATED STAT 12/09/2023 1:58 PM CDT TROPONIN, QUANT STAT 12/09/2023 1:58 PM CDT MAGNESIUM STAT 12/09/2023 1:58 PM CDT LIPASE STAT 12/09/2023 1:58 PM CDT ECG 12-LEAD Routine 12/09/2023 1:46 PM CDT ELECTROCARDIOGRAM REPORT Routine 024 1:46 PM CDT documented in this encounter Results * CT ABD+PEL WO CON (12/09/2023 2:56 PM CDT) Anatomical Region Laterality Modality Abdomen Computed Tomogra phy 12/09/2023 3:26 PM CDT Impressions 12/09/2023 3:35 PM CDT IMPRESSION: INTERVAL REDUCTION OF THE FAT AND [...] BASE, SUSPICIOUS FOR PNEUMONITIS. Ordered By: LARISSA ROY Interpreted By: Pernell Dawson MD, 12/09/2023 3:26 PM Narrative 12/09/2023 3:35 PM CDT Examination: CT ABD+PEL WO CON Exam time: [...] the moderate colonic stool burden. Colonic diverticula with no diverticulitis. Thickening or pseudothickening of the collapsed urinary bladder. Moderate prostate enlargement. Liver, spleen, gallbladder, pancreas, adrenal glands and kidneys are unremarkable. Contrast in the normal appearing normal caliber ureters. Scattered nonenlarged lymph nodes. Normal caliber abdominal aorta and branch vessels. Reticulonodular tree-in-bud infiltrates in the right base again noted. Procedure Note Pernell Dawson MD - 12/09/2023 Examination: CT ABD+PEL WO CON Exam time: 12/09/2023 2:56 PM Clinical history: Hernia reduced. Comparison: Contrast CT abdomen and pelvis from earlier today. Technique: Noncontrast CT of the abdomen and pelvis, from lung bases tothe pubic symphysis, was performed. Coronal and sagittal reformattedimages were created and reviewed. A dose lowering technique was used for this procedure, which may include,but is not limited to, dose reduction technique, automated exposurecontrol, the use of iterative reconstruction, and ALARA (As Low AsReasonably Achievable) / Image Gently techniques. Findings: Interval reduction of the short segment of jejunum containingumbilical hernia. Small residual fat-containing umbilical hernia noted.There is persistent mildly dilated stomach and small bowel proximal to thehernia. No significant bowel wall pneumatosis or free air. Small amount offree fluid and diffuse anasarca. No change in the moderate colonic stoolburden. Colonic diverticula with no diverticulitis. Thickening orpseudothickening of the collapsed urinary bladder. Moderate prostateenlargement. Liver, spleen, gallbladder, pancreas, adrenal glands andkidneys are unremarkable. Contrast in the normal appearing normal caliberureters. Scattered nonenlarged lymph nodes. Normal caliber abdominal aortaand branch vessels. Reticulonodular tree-in-bud infiltrates in the rightbase again noted. IMPRESSION: INTERVAL REDUCTION OF THE FAT AND SHORT SEGMENT OF SMALL BOWEL CONTAININGUMBILICAL HERNIA. PERSISTENT MILDLY DILATED SMALL BOWEL WITH SMALL AMOUNTOF FREE FLUID AND DIFFUSE ANASARCA. NO PNEUMATOSIS OR FREE AIR. MODERATE COLONIC STOOL. COLONIC DIVERTICULA WITH NO DIVERTICULITIS. THICKENING OR SOME THICKENING OF THE COLLAPSED URINARY BLADDER. MODERATE PROSTATE ENLARGEMENT. PERSISTENT RETICULONODULAR TREE-IN-BUD INFILTRATES IN THE RIGHT BASE,SUSPICIOUS FOR PNEUMONITIS. Ordered By: LARISSA ROY Interpreted By: Pernell Dawson MD, 12/09/2023 3:26 PM us Larissa Roy DO CT Final Res ult * CULTURE URINE (12/09/2023 2:45 PM CDT) SPEC DESCRIPTION URINE CLEAN CATCH 12/09/2023 4:23 PM CDT [facility] SPECIAL REQUESTS NO SPECIAL REQUEST 12/09/2023 4:23 PM CDT [facility] CULTURE RESULT >50,000 TO 99,999 CFU/mL PROVIDENCIA STUARTII 12/12/2023 7:18 AM CDT [facility] URINE SPECIMEN OBTAINED BY CLEAN CATCH PROCEDURE / Unknown 12/09/2023 2:45 PM CDT 12/09/2023 6:44 PM CDT Narrative Organism Antibiotic Method Susceptibility Providencia stuartii AMPICILLIN MURRAY (VITEK) Resistant Providencia stuartii AZTREONAM MURRAY (VITEK) Sensitive Providencia stuartii CEFEPIME MURRAY (VITEK) Sensitive Providencia stuartii CEFTRIAXONE MURRAY (VITEK) Sensitive Providencia stuartii CEFAZOLIN MURRAY (VITEK) Resistant Providencia stuartii CIPROFLOXACIN MURRAY (VITEK) Resistant Providencia stuartii ERTAPENEM MURRAY (VITEK) Sensitive Providencia stuartii NITROFURANTOIN MURRAY (VITEK) Resistant Providencia stuartii GENTAMICIN MURRAY (VITEK) Resistant Providencia stuartii IMIPENEM MURRAY (VITEK) INTERMEDIATE: Intermediate Providencia stuartii LEVOFLOXACIN MURRAY (VITEK) INTERMEDIATE: Intermediate Providencia stuartii MEROPENEM MURRAY (VITEK) Sensitive Providencia stuartii PIPRACIL/TAZO MURRAY (VITEK) Sensitive Providencia stuartii TRIMETH-SULFAMETH. MURRAY (VITEK) Resistant Providencia stuartii TETRACYCLINE MURRAY (VITEK) Resistant us Larissa Roy DO MICROBIOLOGY - GENERAL OR DERABLES Final Result [facility] [address] [place] [address], [id number] [facility] [address] [place] [address], * (ABNORMAL) URINALYSIS (12/09/2023 2:45 PM CDT) COLOR (U) YELLOW 12/09/2023 2:58 PM CDT [facility] TRANSPARENCY SLIGHTLY CLOUDY 12/09/2023 2:58 PM CDT [facility] SPECIFIC GRAVITY (U) 1.015 1.000 - 1.025 12/09/2023 2:58 PM CDT [facility] U PH 7.5 5.0 - 8.0 12/09/2023 2:58 PM CDT [facility] LEUKOCYTES (U) 1+(A) NEGATIVE 12/09/2023 2:58 PM CDT [facility] NITRITES POSITIVE(A) NEGATIVE 12/09/2023 2:58 PM CDT [facility] PROTEIN RANDOM (U) 1+(A) NEGATIVE 12/09/2023 2:58 PM CDT [facility] GLUCOSE (U) NEGATIVE NEGATIVE 12/09/2023 2:58 PM CDT [facility] KETONES MG/DL (U) NEGATIVE NEGATIVE 12/09/2023 2:58 PM CDT [facility] UROBILINOGEN 1.0(H) <1.0 EU/DL 12/09/2023 2:58 PM CDT [facility] BILIRUBIN (U) NEGATIVE NEGATIVE 12/09/2023 2:58 PM CDT [facility] BLOOD (U) 1+(A) NEGATIVE 12/09/2023 2:58 PM CDT [facility] WBC/HPF 20-50(A) 0 - 5 /HPF 12/09/2023 2:58 PM CDT [facility] RBC/HPF 0-5 0 - 5 /HPF 12/09/2023 2:58 PM CDT [facility] BACTERIA (U) 3+ /HPF 12/09/2023 2:58 PM CDT [facility] MUCUS PRESENT 12/09/2023 2:58 PM CDT [facility] AMORPHOUS SEDIMENT PRESENT 12/09/2023 2:58 PM CDT [facility] OTHER CASTS (U) HYALINE /LPF 2:58 PM CDT [facility] Comment:20-50 URINE SPECIMEN OBTAINED BY CLEAN CATCH PROCEDURE / Unknown 12/09/2023 2:45 PM CDT us Larissa Roy DO URINE ORDERABLES Final Re sult [facility] [address] [place] [address], * CT ABD+PEL W IV CON ONLY (12/09/2023 2:27 PM CDT) Anatomical Region Laterality Modality Abdomen Computed Tomogra phy 12/09/2023 2:47 PM CDT Impressions 12/09/2023 3:02 PM CDT IMPRESSION: MODERATE GRADE PARTIAL SMALL BOWEL OBSTRUCTION SECONDARY TO A SHORT SEGMENT OF MID JEJUNAL BOWEL AND FAT-CONTAINING UMBILICAL HERNIA. NO PNEUMATOSIS OR FREE AIR. MILD BOWEL WALL THICKENING AND FREE FLUID. COLONIC DIVERTICULA WITH NO DIVERTICULITIS. THICKENING OR PSEUDOTHICKENING OF THE COLLAPSED URINARY BLADDER. CORRELATION WITH URINALYSIS RECOMMENDED. MODERATE PROSTATE ENLARGEMENT. INTERVAL DEVELOPMENT OF NUMEROUS RETICULONODULAR TREE-IN-BUD OPACITIES IN THE POSTERIOR RIGHT LOWER LOBE, SUSPICIOUS FOR PNEUMONITIS. ADDITIONAL STABLE BILATERAL CALCIFIED NONCALCIFIED PULMONARY NODULES. Ordered By: LARISSA ROY Interpreted By: Pernell Dawson MD, 12/09/2023 2:47 PM Narrative 12/09/2023 3:02 PM CDT Examination: CT ABD+PEL W CON Exam time: [...] no bowel wall pneumatosis or free air. Minimal free fluid, most notable in the right paracolic gutter. No abscess. Moderate stool in normal caliber colon and rectum. Colonic diverticula with no [...] which appear similar to the prior exam. Procedure Note Pernell Dawson MD - 12/09/2023 Examination: CT ABD+PEL W CON Exam time: 12/09/2023 2:09 PM Clinical history: Abdominal pain. Comparison: CT abdomen and pelvis from November 27, 2023. Technique: CT of the abdomen and pelvis, from lung bases to the pubicsymphysis, was performed. Coronal and sagittal reformatted images werecreated and reviewed. A dose lowering technique was used for this procedure, which may include,but is not limited to, dose reduction technique, automated exposurecontrol, the use of iterative reconstruction, and ALARA (As Low AsReasonably Achievable) / Image Gently techniques. Findings: There is moderately dilated fluid-filled stomach and small bowelwith air-fluid levels. This is dilated to the point of a short segment ofmid jejunal bowel within a umbilical hernia. Dilated afferent andcollapsed efferent limbs consistent with moderate grade partial smallbowel obstruction secondary to the hernia. Mild bowel wall thickening withno bowel wall pneumatosis or free air. Minimal free fluid, most notable inthe right paracolic gutter. No abscess. Moderate stool in normal calibercolon and rectum. Colonic diverticula with no diverticulitis. No abdominalor pelvic adenopathy. Liver, spleen, gallbladder, pancreas, adrenal glandsand kidneys are unremarkable. Urinary bladder is collapsed with Foleycatheter balloon. There is diffuse thickening of the bladder wall,possibly related to collapse although trabecular hypertrophy or bladderwall thickening from an infectious or inflammatory bladder process is notexcluded. Moderate prostate enlargement is again noted. Normal caliberabdominal aorta with mild atheromatous disease. Skeletal structures aregrossly intact with mild spondylosis and pelvic arthritis. There ismoderate chronic right hemidiaphragm elevation/eventration and multiplereticulonodular infiltrates, predominantly in the posterior right lowerlobe. This is suspicious for superimposed pneumonitis. A few bilateralpulmonary nodules are also noted which appear similar to the prior exam. IMPRESSION: MODERATE GRADE PARTIAL SMALL BOWEL OBSTRUCTION SECONDARY TO A SHORTSEGMENT OF MID JEJUNAL BOWEL AND FAT-CONTAINING UMBILICAL HERNIA. NOPNEUMATOSIS OR FREE AIR. MILD BOWEL WALL THICKENING AND FREE FLUID. COLONIC DIVERTICULA WITH NO DIVERTICULITIS. THICKENING OR PSEUDOTHICKENING OF THE COLLAPSED URINARY BLADDER.CORRELATION WITH URINALYSIS RECOMMENDED. MODERATE PROSTATE ENLARGEMENT. INTERVAL DEVELOPMENT OF NUMEROUS RETICULONODULAR TREE-IN-BUD OPACITIES INTHE POSTERIOR RIGHT LOWER LOBE, SUSPICIOUS FOR PNEUMONITIS. ADDITIONALSTABLE BILATERAL CALCIFIED NONCALCIFIED PULMONARY NODULES. Ordered By: LARISSA ROY Interpreted By: Pernell Dawson MD, 12/09/2023 2:47 PM us Larissa Roy DO CT Final Res ult * XR CHEST PORTABLE (12/09/2023 2:26 PM CDT) Anatomical Region Laterality Modality Chest Radiographic Betsey ging 12/09/2023 3:02 PM CDT Impressions 12/09/2023 3:06 PM CDT IMPRESSION: PROBABLE ACUTE CONGESTIVE HEART FAILURE/FLUID OVERLOAD AND/OR INTERSTITIAL PNEUMONITIS Ordered By: LARISSA ROY Interpreted By: Penrell Dawson MD, 12/09/2023 3:02 PM Narrative 12/09/2023 3:06 PM CDT Examination: XR CHEST PORTABLE Exam time: 12/09/2023 2:26 PM Clinical history: Chest pain. Comparison: Chest from 07/27/2023. Technique: AP upright view the chest obtained. Findings: Allowing for technical factors, there is residual or recurrent predominantly interstitial opacities, more notable in the peripheral right mid and upper lung and both bases. Small effusions. Heart size and pulmonary vascular caliber is magnified. These likely reflect exacerbation of congestive heart failure/fluid overload or interstitial pneumonitis. Procedure Note Pernell Dawson MD - 12/09/2023 Examination: XR CHEST PORTABLE Exam time: 12/09/2023 2:26 PM Clinical history: Chest pain. Comparison: Chest from 07/27/2023. Technique: AP upright view the chest obtained. Findings: Allowing for technical factors, there is residual or recurrentpredominantly interstitial opacities, more notable in the peripheral rightmid and upper lung and both bases. Small effusions. Heart size andpulmonary vascular caliber is magnified. These likely reflect exacerbationof congestive heart failure/fluid overload or interstitial pneumonitis. IMPRESSION: PROBABLE ACUTE CONGESTIVE HEART FAILURE/FLUID OVERLOAD AND/OR INTERSTITIALPNEUMONITIS Ordered By: LARISSA ROY Interpreted By: Pernell Dawson MD, 12/09/2023 3:02 PM Larissa Roy DO GENERAL IMAGING Final Res ult * (ABNORMAL) PRO-BRAIN NATRIURETIC PEPTIDE (12/09/2023 1:58 PM CDT) PRO-B TYPE NATRIURETIC PEPTIDE 2,097(H) <450 PG/ML 12/09/2023 2:28 PM CDT [facility] Comment: CUT POINTS ESTABLISHED BY [...] OF 89% AND 72% FOR ACUTE CHF. 12/09/2023 1:58 PM CDT Larissa Roy DO LABORATORY Final Res ult [facility] [address] [place] [address], * (ABNORMAL) MAGNESIUM (12/09/2023 1:58 PM CDT) MAGNESIUM 1.2(L) 1.8 - 2.4 MG/DL 12/09/2023 2:28 PM CDT [facility] 12/09/2023 1:58 PM CDT Larissa Lambertha LABORATORY Final Res ult Performing Organization Address [facility]/ZIP Co de Phone Number [facility] [address] [place] [phone], * (ABNORMAL) LIPASE (12/09/2023 1:58 PM CDT) LIPASE 14(L) 16 - 77 UNITS/L 12/09/2023 2:28 PM CDT [facility] 12/09/2023 1:58 PM CDT [facility] Final Res ult Performing Organization Address [facility]/ZIP Co de Phone Number [facility] [address] [place] [address], * TROPONIN, QUANT (12/09/2023 1:58 PM CDT) TROPONIN I HIGH SENSITIVITY 23 0 - 76 ng/L 12/09/2023 2:28 PM CDT [facility] 12/09/2023 1:58 PM CDT [facility] Final Res ult Performing Organization Address [facility]/ZIP Co de Phone Number [facility] [address] [place] [address], * (ABNORMAL) COMPREHENSIVE METABOLIC PANEL (12/09/2023 1:58 PM CDT) SODIUM S/P/B 136 136 - 145 MMOL/L 12/09/2023 2:28 PM CDT [facility] POTASSIUM S/P/B 5.1 3.5 - 5.1 MMOL/L 12/09/2023 2:28 PM CDT [facility] CHLORIDE S/P/B 100 98 - 107 MMOL/L 12/09/2023 2:28 PM CDT [facility] CO2 28.4 21.0 - 32.0 MMOL/L 12/09/2023 2:28 PM T [facility] GLUCOSE 198(H) 70 - 99 MG/DL 12/09/2023 2:28 PM T [facility] Comment: FASTING GLUCOSE 100 TO 125 MG/DL IS CONSISTENT WITH IMPAIRED FASTING GLUCOSE. FASTING GLUCOSE >125 MG/DL IS CONSISTENT WITH DIABETES. RANDOM GLUCOSE >200 MG/DL WITH HYPERGLYCEMIC SYMPTOMS IS CONSISTENT WITH DIABETES. PER ADA GUIDELINES BUN 49(H) 6 - 24 MG/DL 12/09/2023 2:28 PM CDT [facility] CREATININE S/P/B 1.47(H) 0.70 - 1.30 MG/DL 12/09/2023 2:28 PM T [facility] CALCIUM S/P/B 8.6 8.4 - 10.5 MG/DL 12/09/2023 2:28 PM T [facility] BILIRUBIN TOTAL S/P/B 0.8 0.2 - 1.0 MG/DL 12/09/2023 2:28 PM T [facility] Comment: THIS ASSAY IS NOT RECOMMENDED FOR PATIENTS UNDERGOING TREATMENT WITH ELTROMBOPAG DUE TO THE POTENTIAL FOR FALSELY ELEVATED RESULTS. ALKALINE PHOSPHATASE S/P/B 61 45 - 115 U/L 12/09/2023 2:28 PM T [facility] AST 11(L) 15 - 37 U/L 12/09/2023 2:28 PM T [facility] ALT 8(L) 16 - 63 U/L 12/09/2023 2:28 PM T [facility] TOTAL PROTEIN S/P/B 5.7(L) 6.4 - 8.2 G/DL 12/09/2023 2:28 PM T [facility] ALBUMIN S/P/B 2.2(L) 3.4 - 5.0 G/DL 12/09/2023 2:28 PM T [facility] ANION GAP 7.6 5.0 - 15.0 MMOL/L 12/09/2023 2:28 PM CDT [facility] OSMOLALITY (CALC) 300 MOSM/KG 024 2:28 PM CDT [facility] Comment:REFERENCE RANGE NOT ESTABLISHED GFR ESTIMATE 48(L) >89 ML/MIN/1. 73 M2 12/09/2023 2:28 PM CDT [facility] GFR NOTES GFR REFERENCE S: 12/09/2023 2:28 PM CDT [facility] Comment: THE ESTIMATED GFR IS [...] ml/min/1.73 m2 G5,KIDNEY FAILURE: <15 ml/min/1.73 m2 12/09/2023 1:58 PM CDT us Larissa Roy DO LABORATORY Final Res ult [facility] [address] [place] [id number], * (ABNORMAL) CBC W/DIFF AUTOMATED (12/09/2023 1:58 PM CDT) WBC 10.50 4.00 - 10.80 x10'3/uL 12/09/2023 2:09 PM CDT [facility] RBC 3.53(L) 4.50 - 6.10 x10'6/uL 12/09/2023 2:09 PM CDT [facility] HGB 9.6(L) 13.0 - 18.0 G/DL 12/09/2023 2:09 PM CDT [facility] HCT 30.8(L) 37.0 - 52.0 % 12/09/2023 2:09 PM CDT [facility] MCV 87.3 78.0 - 100.0 FL 12/09/2023 2:09 PM CDT [facility] MCH 27.2 27.0 - 31.0 PG 12/09/2023 2:09 PM CDT [facility] MCHC 31.2(L) 33.0 - 36.0 G/DL 12/09/2023 2:09 PM CDT [facility] RDW 16.8(H) 11.5 - 14.5 % 12/09/2023 2:09 PM CDT [facility] PLT 252 150 - 350 x10'3/uL 12/09/2023 2:09 PM CDT [facility] MPV 10.4 7.4 - 10.4 FL 12/09/2023 2:09 PM CDT [facility] CBC COMMENT NORMAL REFERENCE RANGE NOT ESTABLISHED FOR THE PROPORTIONAL LEUKOCYTE DIFFERENTIAL. 12/09/2023 2:09 PM CDT [facility] NEUTROPHILS % 89.8 % 12/09/2023 2:09 PM CDT [facility] LYMPHOCYTES % 7.0 % 12/09/2023 2:09 PM CDT [facility] MONOCYTES % 2.1 % 12/09/2023 2:09 PM CDT [facility] EOSINOPHILS % 0.4 % 12/09/2023 2:09 PM CDT [facility] BASOPHILS % 0.2 % 12/09/2023 2:09 PM CDT [facility] IMMATURE GRANS % 0.5 % 12/09/19 2:09 PM CDT [facility] NRBC 0.0 % 12/09/2023 2:09 PM CDT [facility] ABS. NEUTROPHILS 9.43(H) 1.60 - 8.30 x10'3/uL 12/09/2023 2:09 PM CDT [facility] ABS. LYMPHOCYTES 0.74(L) 0.80 - 4.70 x10'3/uL 12/09/2023 2:09 PM CDT [facility] ABS. MONOCYTES 0.22 0.00 - 1.50 x10'3/uL 12/09/2023 2:09 PM CDT [facility] ABS. EOSINOPHILS 0.04 0.00 - 0.40 x10'3/uL 12/09/2023 2:09 PM CDT [facility] ABS. BASOPHILS 0.02 0.00 - 0.20 x10'3/uL 12/09/2023 2:09 PM CDT [facility] ABS. IMMATURE GRANULOCYTES 0.05(H) 0.00 - 0.03 x10'3/uL 12/09/2023 2:09 PM CDT [facility] ABS. NUCLEATED RBC'S 0.00 0.00 - 0.01 x10'3/uL 12/09/2023 2:09 PM CDT [facility] 12/09/2023 1:58 PM CDT Larissa Roy DO LABORATORY Final Res ult [facility] [address] [address], * ECG 12 lead (12/09/2023 1:46 PM CDT) 12/09/2023 1:46 PM CDT Narrative [facility] - 12/09/2023 2:12 PM CDT ? [facility] ?[address] [place] ??[address] ? Test Date: ?2023-12-09 Pat Name: ? ANNIE CROCKER ?Department: ?? 3 ? Room: ? EXAM 606 Gender: ? Male ? Shank Burnisher: ?? : ?1945 ? Requested By: LARISSA ROY Order Number: [id number] ? Reading MD: ?? Trip Fonseca ? Measurements Intervals ?[place] ? Rate: ? 65 ? P: ? [place]: ? 0 ?QRS: ?264 QRSD: ? 153 ?T: ?87 QT: ? 464 ? QTc: ?486 ? Interpretive Statements ELECTRONIC VENTRICULAR PACEMAKER ABNORMAL RHYTHM ECG Procedure Note Trip Fonseca MD - 12/09/2023 [place] [address] [facility] [place] [place] [address] Test Date: 2023-12-09 Pat Name: ANNIE CROCKER Department: 3 Room: EXAM 606 Gender: Male Shank Burnisher: : 1945 Requested By: LARISSA ROY Order Number: [id number] Reading MD: Trip Fonseca Measurements Intervals [place] Rate: 65 P: [place]: 0 QRS: 264 QRSD: 153 T: 87 QT: 464 QTc: 486 Interpretive Statements ELECTRONIC VENTRICULAR PACEMAKER ABNORMAL RHYTHM ECG us Larissa Roy DO ECG ORDERABLES Final Res ult Performing Organization Address City/State/[facility] Co de Phone Number [facility] * EKG Reading (12/09/2023 1:46 PM CDT) Larissa Faria DO - 12/09/2023 1:46 PM CDT Larissa Roy, DO ? 12/09/2023 ??6:20 PM EKG Reading Date/Time: 12/09/2023 1:46 PM Performed by: Larissa Roy DO Authorized by: Larissa Roy, ??Interpreted by ED physician Rhythm: paced Rate: normal BPM: 65 Clinical impression: abnormal ECG Comments: Ventricular paced at 65, complete capture, wide QRS, nonspecific ST segment changes us Larissa Roy DO [place] [facility] Final Result documented in this encounter Visit Diagnoses Diagnosis Acute cystitis with hematuria- Primary Acute cystitis [place] (acute kidney injury) ([facility]) Acute kidney failure, unspecified Reducible umbilical hernia documented in this encounter Administered Medications Inactive Administered Medications - up to 3 most recent administrations Medication Order MAR Action Action Date Dose Rate Site cefTRIAXone (ROCEPHIN) 2 g in sodium chloride 0.9 % 50 mL IVPB 2 g, Intravenous, at 100 mL/hr, Once, 1 dose, On Thu12/09/23 at 1530 New Bag 12/09/2023 4:20 PM CDT 2 g 100 mL/hr iopamidol (ISOVUE-370) 76 % injection 93 mL 93 mL, Intravenous, IMG once as needed, Contrast, 1 dose, Starting on Thu12/09/23 at 1427, Until Thu12/09/23 at 1427 Given 12/09/2023 2:27 PM CDT 93 mLs ketorolac (TORADOL) injection 15 mg 15 mg, Intravenous, Once, 1 dose, On Thu12/09/23 at 1400, For IV administration, give over 15 seconds. Given 12/09/2023 2:32 PM CDT 15 mg ondansetron (ZOFRAN) injection 4 mg 4 mg, Intravenous, Once, 1 dose, On Thu12/09/23 at 1400, IV push over 2-5 minutes. Given 12/09/2023 2:31 PM CDT 4 mg sodium chloride 0.9% bolus infusion 1,000 mL 1,000 mL, Intravenous, Administer over 30 Minutes, Once, 1 dose, On Thu12/09/23 at 1445 New Bag 12/09/2023 2:44 PM CDT 1,000 mLs 2000 mL/hr documented in this encounter Active and Recently Administered Medications Times are shown in CDT. Scheduled Medication Order 12/07/2023 12/08/2023 12/09/2023 cefTRIAXone (ROCEPHIN) 2 g in sodium chloride 0.9 % 50 mL IVPB (COMPLETED) 2 g, Intravenous, at 100 mL/hr, Once, 1 dose, On Thu12/09/23 at 1530 1620 (New Bag - Prov ider: Carmen Tomlin RN)1654 (Infusion Stop Time - Provider: Carmen Tomlin RN) ketorolac (TORADOL) injection 15 mg (COMPLETED) 15 mg, Intravenous, Once, 1 dose, On Thu12/09/23 at 1400, For IV administration, give over 15 seconds. 1432 (Given - Provid er: Carmen Tomlin RN) ondansetron (ZOFRAN) injection 4 mg (COMPLETED) 4 mg, Intravenous, Once, 1 dose, On Thu12/09/23 at 1400, IV push over 2-5 minutes. 1431 (Given - Provid er: Carmen Tomlin RN) sodium chloride 0.9% bolus infusion 1,000 mL (COMPLETED) 1,000 mL, Intravenous, Administer over 30 Minutes, Once, 1 dose, On Thu12/09/23 at 1445 1444 (New Bag - Prov ider: Carmen Tomlin RN)1615 (Infusion Stop Time - Provider: Carmen Tomlin RN) PRN Medication Order 12/07/2023 12/08/2023 12/09/2023 iopamidol (ISOVUE-370) 76 % injection 93 mL (COMPLETED) 93 mL, Intravenous, IMG once as needed, Contrast, 1 dose, Starting on Thu12/09/23 at 1427, Until Thu12/09/23 at 1427 1427 (Given - Provid er: Antonina Wolf RTR) documented in this encounter Care Teams Coconut Candy Maker Relationship Specialty Start Date End Date Abdon Villela MD [address] [place] [phone] PCP - General FAMILY PRACTICE 12/17/15 Pernell Vance MD [address] [place] [address] Consulting Physician CARDIOVASCULAR DISEASE 07/05/1901/30 Kamilla Oliveira NP [address] [place] [address] Referring Physician Nurse Practitioner Family 10/08/2104/14 Madan Palomo MD [address] [place] [address] EP Advertising Statistical Clerk CLINICAL CARDIAC ELECTROPHYSIOLOGY 10/08/21 documented as of this encounter
--- OUTSIDE RECORDS SUMMARY | 2024-06-08 06:08 | XMS_ITS | Encounter Summary ---
Author Organization [facility] Address [facility] [place] [address] [place] [address] Care Team Providers Care Technical Systems Architect Name Role Phone Abdon Villela MD Primary Care Provider [phone] Madan Palomo MD Unavailable [phone] Nomra Rowland PA-C Unavailable [phone] Encounter Details Date Type Department Care Team (Late st Contact Info) Description 03/23/2024 Orders Only [facility] [address] [place] [address] Chris Oliva MD [address] [place] [address] Social History Tobacco Use Types Packs/Day Years Used Date Smoking Tobacco: Former Cigarettes 1 29.6 0 02/14/1966 - 10/07/1995 Pipe Smokeless Tobacco: Never Alcohol Use Standard Drinks/Week Comments No 0 (1 standard drink = 0.6 oz pur e alcohol) [facility] Utilities Answer Date Recorded In [...] Never 07/27/2023 How often do you attend tenriism or mu-ism serv ices? Never 07/27/2023 Do you belong to any clubs o r organizations such as tenriism groups, unions, fraternal or athletic groups, or [...] and heating? Not hard at all 07/27/2023 [facility] [place] of Occupat ional Health - Occupational Stress [...] Assessment Author Status No 07/27/2023 10:44 AM SCOURING MACHINE TENDER Zamzam Zavala R N Active * Are you blind or do you have serious difficulty seeing, even when wearing glasses? Answer Date of Assessment Author Status No 07/27/2023 10:44 AM SCOURING MACHINE TENDER Zamzam Zavala R N Active * Do you have serious difficulty walking or climbing stairs? Answer Date of Assessment Author Status Yes 07/27/2023 10:44 AM SCOURING MACHINE TENDER Zamzam Zavala R N Active * Do you have difficulty dressing or bathing? Answer Date of Assessment Author Status Yes 07/27/2023 10:44 AM SCOURING MACHINE TENDER Zamzam Zavala R N Active * Because of a physical, mental, or emotional condition, do you have difficulty doing errands alone such as visiting a doctor's office or shopping? Answer Date of Assessment Author Status Yes 07/27/2023 10:44 AM SCOURING MACHINE TENDER Zamzam Zavala R N Active documented as of this encounter Mental Status * Because of a physical, mental, or emotional condition, do you have serious difficulty concentrating, remembering, or making decisions? Answer Entry Date Author Status No 07/27/2023 10:44 AM SCOURING MACHINE TENDER Zamzam Zavala R N Active documented in this encounter Plan of Treatment Upcoming Encounters Date Type Department Care Team (Latest Contact Info) Description 06/09/2024 2:20 PM SCOURING MACHINE TENDER Telemedicine [facility] [address] [place] [phone] Earnest Drake MD [address] [place], [place] [phone] 06/21/2024 1:30 AM SCOURING MACHINE TENDER Allied Health/Nurse Visit [facility] [address] [place] [address] Madan Palomo MD [address] [place] [address] 03/01/2025 11:00 AM CDT Allied Health/Nurse Visit [facility] [address] [place] [phone] Norma Rowland PA-C [address] [place] [address] 03/01/2025 11:00 AM CDT Office Visit [facility] [place] [address] [address] [place] [phone] Norma Rowland PA-C [address] [place], [place] [phone] documented as of this encounter Results * OCCULT BLOOD, FECES, DIAGNOSTIC (03/23/2024 9:05 AM CDT) OCCULT BLOOD FECAL NEGATIVE NEGATIVE 03/23/2024 10:49 AM CDT [facility] STOOL SPECIMEN / Unknown 03/23/2024 9:05 AM CDT Chris Oliva MD BODY FLUIDS AND STOOLS TU CARPIO Final Result [facility] [address] [place] [address], documented in this encounter Visit Diagnoses Diagnosis Anemia- Primary Anemia, unspecified documented in this encounter Care Teams Technical Systems Architect Relationship Specialty Start Date End Date Abdon Villela MD [address] [facility] [place] [address] PCP - General FAMILY PRACTICE 12/17/15 Madan Palomo MD [address] [place] [address] EP Emergency Management Director CLINICAL CARDIAC ELECTROPHYSIOLOGY 10/08/21 Norma Rowland PA-C [address] [place], [place] [phone] Referring Physician PHYSICIAN DRAIN TECHNICIAN 12/31/23 documented as of this encounter
--- OUTSIDE RECORDS SUMMARY | 2024-06-08 06:08 | XMS_ITS | Encounter Summary ---
Author Organization [facility] - [facility] Address [facility] [place] [address] [place] [address] Care Team Providers Care Powder Coater Name Role Phone Abdon Villela MD Primary Care Provider [phone] Madan Palomo MD Unavailable [phone] Norma Rowland PA-C Unavailable [phone] Reason for Visit * Reason Comments Atrial Fibrillation Encounter Details Date Type Department Care Team (Latest Contact Info) Description 03/02/2024 10:15 AM CDT Office Visit [facility] [place] [address] Madan Palomo MD [address] [place] [address] Atrial Fibrillation Social History Tobacco Use Types Packs/Day Years Used Date Smoking Tobacco: Former Cigarettes 1 29.6 0 02/14/1966 - 10/07/1995 Pipe Smokeless Tobacco: Never Alcohol Use Standard Drinks/Week Comments No 0 (1 standard drink = 0.6 oz pur e alcohol) [facility] Utilities Answer Date Recorded In the [...] Never 07/27/2023 How often do you attend roman catholic or lutheran serv ices? Never 07/27/2023 Do you belong to any clubs o r organizations such as roman catholic groups, unions, fraternal or athletic groups, or [...] and heating? Not hard at all 07/27/2023 [facility] [place] [facility] Occupat ional Health - Occupational Stress [...] to sleep or slept in a senior care (including now)? No 07/27/2023 Sex and Gender [...] Sign Reading Time Taken Comments Blood Pressure 99/58 03/02/2024 10:07 AM CDT Pulse 59 03/02/2024 10:07 AM CDT Temperature - - Respiratory Rate - - Oxygen Saturation 100% 03/02/2024 10: 07 AM CDT Inhaled Oxygen Concentration - - Weight 79 kg (174 lb 3.2 oz) 03/02/2024 10:07 AM CDT Patient stated Height 182.9 cm (6') 03/02/2024 10:07 AM CDT Body Mass Index 23.63 03/02/2024 10:07 AM CDT documented in this encounter Functional Status * Are you deaf or do you have serious difficulty hearing Answer Date of Assessment Author Status No 07/27/2023 10:44 AM Zamzam King R N Active * Are you blind or do you have serious difficulty seeing, even when wearing glasses? Answer Date of Assessment Author Status No 07/27/2023 10:44 AM SHEETMETAL TRADES WORKER Apke, Zamzam A, R N Active * Do you have serious difficulty walking or climbing stairs? Answer Date of Assessment Author Status Yes 07/27/2023 10:44 AM SHEETMETAL TRADES WORKER Apke Zamzam A, R N Active * Do you have difficulty dressing or bathing? Answer Date of Assessment Author Status Yes 07/27/2023 10:44 AM SHEETMETAL TRADES WORKER Apke Zamzam A, R N Active * Because of a physical, mental, or emotional condition, do you have difficulty doing errands alone such as visiting a doctor's office or shopping? Answer Date of Assessment Author Status Yes 07/27/2023 10:44 AM SHEETMETAL TRADES WORKER Apke, Zamzam A, R N Active documented as of this encounter Mental Status * Because of a physical, mental, or emotional condition, do you have serious difficulty concentrating, remembering, or making decisions? Answer Entry Date Author Status No 07/27/2023 10:44 AM SHEETMETAL TRADES WORKER Apuriel Zamzam A, R N Active documented in this encounter Progress Notes * Madan Palomo MD - 03/02/2024 10:15 AM CDT Images from the original note were not included. Cardiac Electrophysiology Clinic Note PATIENT NAME: Avila Fernandez : 1945 REFERRING PROVIDER: No ref. provider found PCP: ABDON VILLELA MD PRIMARY CARDIOLOGY PROVIDER: Pernell Vance MD Reason for Visit Cardiac electrophysiology follow-up for atrial fibrillation, CHF chronic systolic and management ofcardiac device in situ History of Present Illness I had the pleasure of seeing Avila Fernandez in the Cardiac Electrophysiology Clinic at [facility]. 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 He was a former patient of Dr. Reyes who had left our practice. He underwent dual-chamber pacemaker implantation for high degree AV block in April 2013. Recently he underwent echocardiogram which showed a decline in LV systolic function to 35 to 40% and underwent successful upgrade to biventricular pacemaker. Recent echocardiogram showed improvement in LV systolic function to 55 to 60% after biventricular pacemaker upgrade. Today he presents for follow-up. He denies any chest pain. Denies any shortness of breath. Denies any orthopnea/PND. Denies any pedal edema. Denies any palpitations. Denies any syncopal episodes. Device interrogation today reveals 99% biventricular pacing with brief episodes of nonsustained ventricular tachycardia noted. Permanent atrial fibrillation noted. Diagnostics EKG - From today shows atrial fibrillation with biventricular pacing. EKG was independently reviewed by me. Echo - from July 2023 shows LVEF 55 to 60%. Echo from May 2022 shows LVEF of 35 to 40%. No significant valvular abnormalities Diagnosis 1. CHF chronic systolic, last EF 35 to 40% 2. Complete heart block 3. Permanent atrial fibrillation 4. Coronary artery disease 5. Cardiac device in situ- Medtronic dual-chamber pacemaker implanted in 2012 upgraded to biventricular pacemaker in August 2022 6. Hypertension 7. Hyperlipidemia Recommendations 1. Nonsustained ventricular tachycardia: Brief. Most recent echocardiogram showed LVEF of 55 to 60%. We will increase carvedilol to 6.25 mg twice daily. 2. CHF chronic systolic: Last EF improved to 55 to 60% from 35 to 40%. Status post cardiac resynchronization therapy. Continue lisinopril and carvedilol. We will reduce his lisinopril dose to 5 mg daily given soft blood pressures. This would also allow us to uptitrate his carvedilol to 6.25 mg twice daily. 3. Permanent atrial fibrillation: Rate controlled due to underlying complete heart block. Continue apixaban. 4. Cardiac device in situ: His Medtronic biventricular-chamber pacemaker was interrogated today. Itrevealed excellent pacing and sensing thresholds. Brief episodes of nonsustained ventricular tachycardia noted. Continue remote monitoring in 3 months. Return to clinic in 1 year or sooner if clinical situation warrants with GRANT Wells Thank you for allowing me to participate in the care of Avila Fernandez Medications Current Outpatient Medications: acetaminophen (TYLENOL) 500 MG [...] mouth daily., Disp: 60 tablet, Rfl: 0 Allergies Review of patient's allergies indicates: Allergen Reactions Tomato Diarrhea Past Medical History Past Medical History: Diagnosis Date A-fib ([facility]) BPH (benign prostatic hyperplasia) CHF (congestive heart failure) ([facility]) Coronary artery disease Dementia without behavioral disturbance ([facility]) Diabetes mellitus ([facility]) Disorder of prostate HLD (hyperlipidemia) Hyperlipidemia Hypertension Pacemaker 09/10/2022 Respiratory failure ([facility]) Sick sinus syndrome ([facility]) Urinary retention Past Surgical History Past Surgical History: Procedure Laterality Date CORONARY ART DIL,ONE VESSEL 2010 INSER COBIAN PACER XVENOUS ATRIAL 05/04/2013 PACEMAKER Social History Social History Tobacco Use Smoking status: Former Current packs/day: 0.00 Average packs/day: 1 pack/day for 29.6 years (29.6 ttl pk-yrs) Types: Cigarettes, Pipe Start date: 02/14/1966 Quit date: 10/07/1995 Years since quittin.4 Smokeless tobacco: Never Substance Use Topics Alcohol use: No Drug use: No Family History Family History Problem Relation Name Age of Onset Heart Attack Mother No family history of arrhythmias Review of Systems Review of Systems Constitutional: Positive for malaise/fatigue. HENT: Negative for ear discharge and nosebleeds. Eyes: Negative for blurred vision and double vision. Respiratory: Negative for cough and shortness of breath. Cardiovascular: Negative for chest pain, palpitations, orthopnea, leg swelling and PND. Gastrointestinal: Negative for blood in stool and melena. Genitourinary: Negative for dysuria and hematuria. Musculoskeletal: Negative for joint pain and myalgias. Skin: Negative for itching and rash. Neurological: Negative for dizziness, sensory change, weakness and headaches. Endo/Heme/Allergies: Negative for polydipsia. Does not bruise/bleed easily. Psychiatric/Behavioral: Negative for depression. The patient is not nervous/anxious. Physical Examination Filed Vitals: 03/02/24 1007 BP: 99/58 Pulse: (!) 59 SpO2: 100% Weight: 79 kg (174 lb 3.2 oz) Height: 1.829 m (6') Physical Exam Vitals reviewed. Constitutional: Appearance: Normal appearance. He is not ill-appearing. HENT: Head: Normocephalic and atraumatic. Right Ear: Ear canal and external ear normal. Left Ear: Ear canal and external ear normal. Nose: Nose normal. No rhinorrhea. Mouth/Throat: Mouth: Mucous membranes are moist. Pharynx: Oropharynx is clear. Eyes: General: No scleral icterus. Extraocular Movements: Extraocular movements intact. Conjunctiva/sclera: Conjunctivae normal. Cardiovascular: Rate and Rhythm: Normal rate and regular rhythm. Pulses: Normal pulses. Heart sounds: Normal heart sounds. No murmur heard. Pulmonary: Effort: Pulmonary effort is normal. No respiratory distress. Breath sounds: Normal breath sounds. No wheezing. Abdominal: General: There is no distension. Palpations: Abdomen is soft. Tenderness: There is no abdominal tenderness. Musculoskeletal: General: No swelling. Normal range of motion. Cervical back: Normal range of motion and neck supple. Right lower leg: No edema. Left lower leg: No edema. Skin: General: Skin is warm and dry. Findings: No rash. Neurological: General: No focal deficit present. Mental Status: He is alert and oriented to person, place, and time. Motor: No weakness. Psychiatric: Behavior: Behavior normal. Thought Content: Thought content normal. Judgment: Judgment normal. documented in this encounter Plan of Treatment Upcoming Encounters Date Type Department Care Team (Latest Contact Info) Description 06/09/2024 2:20 PM SHEETMETAL TRADES WORKER Telemedicine [facility] [address] [place] [phone] Earnest Drake MD [address] [place] [address] 06/21/2024 1:30 AM SHEETMETAL TRADES WORKER Allied Health/Nurse Visit [facility] [address] [place] [address] Madan Palomo MD [address] [place] [address] 03/01/2025 11:00 AM CDT Allied Health/Nurse Visit [facility] [place] [address] Norma Rowland PA-C [address] [place] [address] 03/01/2025 11:00 AM CDT Office Visit [facility] [address] [place] [phone] Norma Rowland PA-C [address] [place], [place] [id number] documented as of this encounter Procedures Procedure Name Priority Date/Time Associated Diagnosis Comments ECG 12-LEAD Routine 03/02/2024 9:50 AM CDT Cardiac pacemaker in situ Chronic atrial fibrillation (CMS/HCC HHS/HCC) documented in this encounter Visit Diagnoses Diagnosis Chronic atrial fibrillation (CMS/HCC HHS/HCC)- Primary Atrial fibrillation documented in this encounter Care Teams Powder Coater Relationship Specialty Start Date End Date Abdon Villela MD [address] [place] [phone] PCP - General FAMILY PRACTICE 12/17/15 Madan Palomo MD [address] [place] [address] [id number] EP Air Twister Winder CLINICAL CARDIAC ELECTROPHYSIOLOGY 10/08/21 Norma Rowland PA-C [address] [place] [address] Referring Physician PHYSICIAN CAN RECONDITIONER 12/31/23 documented as of this encounter
--- OUTSIDE RECORDS SUMMARY | 2024-06-08 06:09 | XMS_ITS | Encounter Summary ---
Author Organization [facility] Address [address] [place] [address]. [place] [address] [place] [address] Care Team Providers Care Taker Off Hemp Fiber Name Role Phone Abdon Villela MD Primary Care Provider [phone] Pernell Vance MD Unavailable UnavailKamilla Lazaro NP Unavailable Unavailable Madan Palomo MD Unavailable [phone] Reason for Visit * Reason Comments Medical Problem Encounter Details Date Type Department Care Team (Late st Contact Info) Description 08/01/2023 1:50 AM PRODUCTION AIDE - 08/01/2023 6:50 AM [facility] [address] [facility] [place] [address] Lionel Banegas, DO [address] [place] [address] Medical Problem Discharge Disposition: [facility] Facility Social History Tobacco Use Types Packs/Day Years Used Date Smoking Tobacco: Former Cigarettes 1 29.6 0 02/14/1966 - 10/07/1995 Pipe Smokeless Tobacco: Never Alcohol Use Standard Drinks/Week Comments No 0 (1 standard drink = 0.6 oz pur e alcohol) [facility] Utilities Answer Date Recorded In [...] How often do you attend spiritism or nondenominational serv ices? Never 07/27/2023 Do you belong [...] and heating? Not hard at all 07/27/2023 [facility] [place] of Occupat ional Health - Occupational Stress [...] Sign Reading Time Taken Comments Blood Pressure 129/84 08/01/2023 1:55 AM PRODUCTION AIDE Pulse 92 08/01/2023 1:55 AM PRODUCTION AIDE Temperature 36.1 ??C (97 ??F) 08/01/2023 1:55 AM PRODUCTION AIDE Respiratory Rate 18 08/01/2023 1:55 AM PRODUCTION AIDE Oxygen Saturation 98% 08/01/2023 3:00 AM PRODUCTION AIDE Inhaled Oxygen Concentration - - Weight 101.2 kg (223 lb 3 oz) 08/01/2023 1:55 AM PRODUCTION AIDE Height 182.9 cm (6') 08/01/2023 1:55 AM PRODUCTION AIDE Body Mass Index 30.27 08/01/2023 1:55 AM PRODUCTION AIDE documented in this encounter Functional Status * [...] cannot be sent through Care Everywhere. * Low Magnesium Level Discharge Instructions (Jordanian) documented in this encounter Medications at Time of Discharge acetaminophen (TYLENOL) 500 MG tablet Take 2 tablets (1,000 mg total) by mouth every 6 (six) hours as needed for Pain. apixaban (ELIQUIS) 5 MG tablet Take 1 tablet (5 mg total) by mouth 2 (two) times daily. 60 tablet 5 09/19/2022 furosemide (LASIX) 40 MG tablet Take 1 [...] daily. 60 tablet 07/31/2023 12/30/2023 lisinopril (PRINIVIL) 40 MG tablet Take 10 mg by mouth daily. 12/30/2023 magnesium oxide 400 (241.3 Mg) MG tablet Take 1 tablet (400 mg total) by mouth daily. 05/25/2024 vitamin B-12 1000 MCG tablet Take 1 tablet (1,000 mcg total) by mouth daily. 03/02/2024 documented as of this encounter ED Notes * Hermelinda Ramesh RN - 08/01/2023 6:30 AM CST After speaking with patient again, the patient decided to go back to the facility. Facility notified. Cab was called for patient transfer, due to the facility not having transport. UCTION AIDE * Hermelinda Ramesh RN - 08/01/2023 4:55 AM CST Spoke with patient regarding discharge from our facility. The patient is still refusing to go back to the facility. The patient was told that he would either need to go back to the facility or leave on his own from the ER. The patient states that he does not have the means to leave our facility, and it is explained to him that he either needs to return to the facility or leave the ER upon discharge. The patient still refuses to the go back to the facility. Multiple calls were made to family members to see if they would be able to pick the patient up and none of them were able to. The patient becomes verbally aggressive with staff stating go to hell. The patient states that he will pitch a tent in the corner, and it is explained to the patient if he does not want to go back to the facility that he will have to leave the ER once he is discharged. UCTION AIDE * Hermelinda Ramesh RN - 08/01/2023 4:09 AM CST Spoke with patient regarding discharge to previous facility and patient refuses to go back to the facility stating that his health is in danger and that he will not go back to that facility. UCTION AIDE UCTION AIDE * Cosmo Grant CNA - 08/01/2023 3:41 AM CST Attempted to straight cath pt, as we were unable to obtain urine. Explained to pt the procedure andwhy it was necessary. Pt says, I do not consent to this or any medical care, and there is a state law. Pt informed and educated on the benefits of the care we are attempting to provide. Pt refused care again. Physician & RN aware. UCTION AIDE * Hermelinda Ramesh RN - 08/01/2023 1:58 AM CST Patient presents to the ER with [facility]. Patient lives at [facility] and they reported that the patient was being aggressive towards staff. On arrival the patient was ANOx4 and was acting appropriately. UCTION AIDE * Lionel Banegas DO - 08/01/2023 1:55 AM CST Chief Complaint Chief Complaint Patient presents with Medical Problem History of Present Illness 78-year-old male presents to the emergency department via EMS from assisted where he resides due to altercation with the staff. Patient wanted to get out of bed, but the staff would notlet him as he is a fall risk. EMS reports that the patient pressed his fist against one of the staff's faces, but did not hit them. Patient denies any pain or any other symptoms of illness. He statesthat he is feeling fine. History provided by: Patient and EMS personnel kitchen and bath designer used: No Medical History ALLERGIES: Review of [...] (two) times daily. 09/19/22 Madan Palomo MD atorvastatin (LIPITOR) 80 MG tablet Take 1 tablet (80 mg total) by mouth nightly at bedtime. Default History Genericprovider carvedilol (COREG) 6.25 MG tablet Take 1 tablet (6.25 mg total) by mouth 2 (two) times daily. 07/31/23 Sandra Short NP furosemide (LASIX) 40 MG tablet Take 1 tablet (40 mg total) by mouth daily. 08/01/23 Sandra Short NP lisinopril (PRINIVIL) 40 MG tablet Take 1 tablet (40 mg total) by mouth daily. Default History Genericprovider magnesium oxide 400 (241.3 Mg) MG tablet Take 1 tablet (400 mg total) by mouth daily. [facility] metFORMIN 1000 MG tablet [...] daily. 08/01/23 Sandra Short NP vitamin B-12 1000 MCG tablet Take 1 tablet (1,000 mcg total) by mouth daily. [facility] PAST MEDICAL HISTORY: Past Medical History: Diagnosis Date Coronary artery disease Diabetes mellitus (HHS/HCC) ([facility]/HCC) Disorder of prostate Hyperlipidemia Hypertension Pacemaker 09/10/2022 PAST SURGICAL HISTORY: Past Surgical History: Procedure Laterality Date CORONARY ART DIL,ONE VESSEL 2010 INSER COBIAN PACER XVENOUS ATRIAL 05/04/2013 PACEMAKER FAMILY HISTORY: Family History Problem Relation Name Age of Onset Heart Attack Mother SOCIAL HISTORY: Social History Tobacco Use Smoking status: Former Packs/day: 1 Types: Cigarettes, Pipe Start date: 02/14/1966 Quit date: 10/07/1995 Years since quittin.8 Smokeless tobacco: Never Substance Use Topics Alcohol use: No Drug use: No Review of Systems Review of Systems All other systems reviewed and are negative. Physical Exam Filed Vitals: 08/01/23 0155 08/01/23 0300 BP: 129/84 Pulse: 92 Resp: 18 Temp: 97 ??F (36.1 ??C) TempSrc: Temporal SpO2: 97% 98% Weight: 101.2 kg (223 lb 3 oz) Height: 1.829 m (6') Physical Exam Vitals and nursing note reviewed. Constitutional: General: He is not in acute distress. Appearance: He is well-developed. He is not diaphoretic. HENT: Head: Normocephalic and atraumatic. Eyes: Conjunctiva/sclera: [...] soft. Tenderness: There is no abdominal tenderness. Neurological: Mental Status: He is alert and oriented to person, place, and time. Psychiatric: Behavior: Behavior is agitated. Behavior is cooperative. Thought Content: Thought content normal. Judgment: Judgment normal. Diagnostic Studies / Procedures ELECTROCARDIOGRAMS: No results found for this visit on 08/01/23. LABORATORY STUDIES: Results for orders placed or performed during the hospital encounter of 08/01/23 CBC W/DIFF AUTOMATED Result Value Ref Range WBC 7.52 4.00 - 10.80 x10'3/uL RBC 4.30 (L) 4.50 - 6.10 x10'6/uL HGB 11.4 (L) 13.0 - 18.0 G/DL HCT 36.6 (L) 37.0 - 52.0 % MCV 85.1 78.0 - 100.0 FL MCH 26.5 (L) 27.0 - 31.0 PG MCHC 31.1 (L) 33.0 - 36.0 G/DL RDW 18.3 (H) 11.5 - 14.5 % PLT 223 150 - 350 x10'3/uL MPV 10.6 (H) 7.4 - 10.4 FL CBC COMMENT NORMAL REFERENCE RANGE NOT ESTABLISHED FOR THE PROPORTIONAL LEUKOCYTE DIFFERENTIAL. NEUTROPHILS 68.0 % LYMPHOCYTES 20.6 % MONOCYTES 8.9 % EOSINOPHILS 2.0 % BASOPHILS 0.4 % IMMATURE GRANS 0.1 % NRBC 0.0 % ABS. NEUTROPHILS 5.11 1.60 - 8.30 x10'3/uL ABS. LYMPHOCYTES 1.55 0.80 - 4.70 x10'3/uL ABS. MONOCYTES 0.67 0.00 - 1.50 x10'3/uL ABS. EOSINOPHILS 0.15 0.00 - 0.40 x10'3/uL ABS. BASOPHILS 0.03 0.00 - 0.20 x10'3/uL ABS. IMMATURE GRANULOCYTES 0.01 0.00 - 0.03 x10'3/uL ABS. NUCLEATED RBC'S 0.00 0.00 x10'3/uL COMPREHENSIVE METABOLIC PANEL Result Value Ref Range SODIUM S/P/B 135 (L) 136 - 145 MMOL/L POTASSIUM S/P/B 4.3 3.5 - 5.1 MMOL/L CHLORIDE S/P/B 98 98 - 107 MMOL/L CO2 32.8 (H) 21.0 - 32.0 MMOL/L GLUCOSE 151 (H) 70 - 99 MG/DL BUN 29 (H) 6 - 24 MG/DL CREATININE S/P/B 0.82 0.70 - 1.30 MG/DL CALCIUM S/P/B 9.0 8.4 - 10.5 MG/DL BILIRUBIN TOTAL S/P/B 0.7 0.2 - 1.0 MG/DL ALKALINE PHOSPHATASE S/P/B 83 45 - 115 U/L AST 13 (L) 15 - 37 U/L ALT 15 (L) 16 - 63 U/L TOTAL PROTEIN S/P/B 6.5 6.4 - 8.2 G/DL ALBUMIN S/P/B 2.9 (L) 3.4 - 5.0 G/DL ANION GAP 4.2 (L) 5.0 - 15.0 MMOL/L OSMOLALITY (CALC) 289 MOSM/KG GFR ESTIMATE 89 (L) >89 ML/MIN/1.73 M2 GFR NOTES GFR REFERENCES: ETHANOL Result Value Ref Range ALCOHOL S/P/B <0.003 <0.003 G/DL MAGNESIUM Result Value Ref Range MAGNESIUM 1.6 (L) 1.8 - 2.4 MG/DL TSH W/REFLEX Result Value Ref Range TSH 3.729 0.358 - 3.740 uIU/ML URIC ACID BLOOD Result Value Ref Range URIC ACID 5.2 3.5 - 7.2 MG/DL IMAGING STUDIES No orders to display ED Course / Medical Decision Making Medical Decision Making Patient sent from assisted due to altercation with staff. Patient not wanting care, but allows labs to be drawn. He is unwilling to give urine sample. Labs are remarkable for an elevated BUN/creatinine ratio and mildly low magnesium. Oral magnesium is ordered for repletion. Amount and/or Complexity of Data Reviewed Labs: ordered. Decision-making details documented in ED Course. Risk OTC drugs. ED Course as of 08/12/23925 Sat Aug 01, 2023 030 MAGNESIUM(!): 1.6 [JW] 0303 BUN(!): 29 [JW] 0303 CREATININE S/P/B: 0.82 [JW] 0303 HGB(!): 11.4 [JW] ED Course User Index [JW] Lionel Banegas DO Clinical Impression Personality disorder (HHS/HCC) ([facility]/HCC) (Primary) Hypomagnesemia Disposition: Discharge I, Lionel Banegas, D.O., dictated portions of this note using [employer] speech recognition software. Occasional wrong word or sound-alike substitutions may have occurred due to the inherent limitationsof voice recognition software. Please read the chart carefully and recognize, using context, where s ubstitutions may have occurred. Lionel Banegas DO 08/12/23925 UCTION AIDE documented in this encounter Plan of Treatment Upcoming Encounters Date Type Department Care Team (Latest Contact Info) Description 06/09/2024 2:20 PM PRODUCTION AIDE [facility] [address] [phone] Earnest Drake MD [address], [place] [id number] 06/21/2024 1:30 AM PRODUCTION AIDE Allied Health/Nurse Visit [facility] [address] [place] [address] Madan Palomo MD [address] [place] [address] 03/01/2025 11:00 AM CDT Allied Health/Nurse Visit [place] [address] [place] [phone] Norma Rowalnd PA-C [address] [place], [place] [address] 03/01/2025 11:00 AM CDT Office Visit [place] [address] [place] [phone] Norma Rowland PA-C [address] [place], [place] [phone] documented as of this encounter Procedures Procedure Name Priority Date/Time Associated Diagnosis Comments TSH W/REFLEX STAT 08/01/2023 2:11 AM PRODUCTION AIDE COMPREHENSIVE METABOLIC PANEL STAT 08/01/2023 2:11 AM PRODUCTION AIDE CBC W/DIFF AUTOMATED STAT 08/01/2023 2:11 AM PRODUCTION AIDE MAGNESIUM STAT 08/01/2023 2:11 AM PRODUCTION AIDE ETHANOL STAT 08/01/2023 2:11 AM PRODUCTION AIDE URIC ACID BLOOD STAT 08/01/2023 2:11 AM PRODUCTION AIDE documented in this encounter Results * URIC ACID BLOOD (08/01/2023 2:11 AM PRODUCTION AIDE) URIC ACID 5.2 3.5 - 7.2 MG/DL 08/01/2023 2:56 AM PRODUCTION AIDE [facility] 08/01/2023 2:11 AM PRODUCTION AIDE us Lionel Banegas DO LABORATORY Final Result Performing Organization Address [facility]/ZIP Co de Phone Number [facility] [address] [place] [address], * TSH W/REFLEX (08/01/2023 2:11 AM PRODUCTION AIDE) TSH 3.729 0.358 - 3.740 uIU/ML 08/01/2023 2:56 AM PRODUCTION AIDE [facility] Comment: FREE T4 NOT INDICATED ASSAY PERFORMED BY CHEMILUMINESCENT IMMUNOASSAY METHODOLOGY USING SIEMENS DIMENSION REAGENT. PATIENT RESULTS DETERMINED BY ASSAYS FROM DIFFERENT MANUFACTURERS AND/OR BY DIFFERENT METHODS MAY NOT BE COMPARABLE. 08/01/2023 2:11 AM PRODUCTION AIDE us Lionel Banegas DO LABORATORY Final Result Performing Organization Address [facility] Co de Phone Number [facility] [address] [place] [address], * (ABNORMAL) MAGNESIUM (08/01/2023 2:11 AM PRODUCTION AIDE) MAGNESIUM 1.6(L) 1.8 - 2.4 MG/DL 08/01/2023 2:56 AM PRODUCTION AIDE [facility] 08/01/2023 2:11 AM PRODUCTION AIDE us Lionel Banegas DO LABORATORY Final Result Performing Organization Address [facility] Co de Phone Number [facility] [address] [place] [id number], * ETHANOL (08/01/2023 2:11 AM PRODUCTION AIDE) ALCOHOL S/P/B <0.003 <0.003 G/DL 08/01/2023 2:56 AM [facility] 08/01/2023 2:11 AM PRODUCTION AIDE Lionel Banegas DO LABORATORY Final Result [facility] [address] [place] [id number], * (ABNORMAL) COMPREHENSIVE METABOLIC PANEL (08/01/2023 2:11 AM PRODUCTION AIDE) SODIUM S/P/B 135(L) 136 - 145 MMOL/L 08/01/2023 2:56 AM [facility] POTASSIUM S/P/B 4.3 3.5 - 5.1 MMOL/L 08/01/2023 2:56 AM [facility] CHLORIDE S/P/B 98 98 - 107 MMOL/L 08/01/2023 2:56 AM [facility] CO2 32.8(H) 21.0 - 32.0 MMOL/L 08/01/2023 2:56 AM [facility] GLUCOSE 151(H) 70 - 99 MG/DL 08/01/2023 2:56 AM [facility] Comment: FASTING GLUCOSE 100 TO 125 MG/DL IS CONSISTENT WITH IMPAIRED FASTING GLUCOSE. FASTING GLUCOSE >125 MG/DL IS CONSISTENT WITH DIABETES. RANDOM GLUCOSE >200 MG/DL WITH HYPERGLYCEMIC SYMPTOMS IS CONSISTENT WITH DIABETES. PER ADA GUIDELINES BUN 29(H) 6 - 24 MG/DL 08/01/2023 2:56 AM [facility] CREATININE S/P/B 0.82 0.70 - 1.30 MG/DL 08/01/2023 2:56 AM [facility] CALCIUM S/P/B 9.0 8.4 - 10.5 MG/DL 08/01/2023 2:56 AM [facility] BILIRUBIN TOTAL S/P/B 0.7 0.2 - 1.0 MG/DL 08/01/2023 2:56 AM [facility] Comment: THIS ASSAY IS NOT RECOMMENDED FOR PATIENTS UNDERGOING TREATMENT WITH ELTROMBOPAG DUE TO THE POTENTIAL FOR FALSELY ELEVATED RESULTS. ALKALINE PHOSPHATASE S/P/B 83 45 - 115 U/L 08/01/2023 2:56 AM [facility] AST 13(L) 15 - 37 U/L 08/01/2023 2:56 AM [facility] ALT 15(L) 16 - 63 U/L 08/01/2023 2:56 AM [facility] TOTAL PROTEIN S/P/B 6.5 6.4 - 8.2 G/DL 08/01/2023 2:56 AM [facility] ALBUMIN S/P/B 2.9(L) 3.4 - 5.0 G/DL 08/01/2023 2:56 AM [facility] ANION GAP 4.2(L) 5.0 - 15.0 MMOL/L 08/01/2023 2:56 AM [facility] OSMOLALITY (CALC) 289 MOSM/KG 024 2:56 AM [facility] Comment:REFERENCE RANGE NOT ESTABLISHED GFR ESTIMATE 89(L) >89 ML/MIN/1. 73 M2 08/01/2023 2:56 AM [facility] GFR NOTES GFR REFERENCE S: 08/01/2023 2:56 AM [facility] Comment: THE [...] ml/min/1.73 m2 G5,KIDNEY FAILURE: <15 ml/min/1.73 m2 08/01/2023 2:11 AM PRODUCTION AIDE Lionel Hayley Makenzie DAI LABORATORY Final Result [facility] [address] [place] [address], * (ABNORMAL) CBC W/DIFF AUTOMATED (08/01/2023 2:11 AM PRODUCTION AIDE) WBC 7.52 4.00 - 10.80 x10'3/uL 08/01/2023 2:19 AM [facility] RBC 4.30(L) 4.50 - 6.10 x10'6/uL 08/01/2023 2:19 AM [facility] HGB 11.4(L) 13.0 - 18.0 G/DL 08/01/2023 2:19 AM [facility] HCT 36.6(L) 37.0 - 52.0 % 08/01/2023 2:19 AM [facility] MCV 85.1 78.0 - 100.0 FL 08/01/2023 2:19 AM [facility] MCH 26.5(L) 27.0 - 31.0 PG 08/01/2023 2:19 AM [facility] MCHC 31.1(L) 33.0 - 36.0 G/DL 08/01/2023 2:19 AM [facility] RDW 18.3(H) 11.5 - 14.5 % 08/01/2023 2:19 AM [facility] PLT 223 150 - 350 x10'3/uL 08/01/2023 2:19 AM [facility] MPV 10.6(H) 7.4 - 10.4 FL 08/01/2023 2:19 AM [facility] CBC COMMENT NORMAL REFERENCE RANGE NOT ESTABLISHED FOR THE PROPORTIONAL LEUKOCYTE DIFFERENTIAL. 08/01/2023 2:19 AM [facility] NEUTROPHILS % 68.0 % 08/01/2023 2:19 AM [facility] LYMPHOCYTES % 20.6 % 08/01/2023 2:19 AM PRODUCTION AIDE [facility] MONOCYTES % 8.9 % 08/01/2023 2:19 AM PRODUCTION AIDE [facility] EOSINOPHILS % 2.0 % 08/01/2023 2:19 AM PRODUCTION AIDE [facility] BASOPHILS % 0.4 % 08/01/2023 2:19 AM PRODUCTION AIDE [facility] IMMATURE GRANS % 0.1 % 08/01/19 2:19 AM PRODUCTION AIDE [facility] NRBC 0.0 % 08/01/2023 2:19 AM PRODUCTION AIDE [facility] ABS. NEUTROPHILS 5.11 1.60 - 8.30 x10'3/uL 08/01/2023 2:19 AM PRODUCTION AIDE [facility] ABS. LYMPHOCYTES 1.55 0.80 - 4.70 x10'3/uL 08/01/2023 2:19 AM PRODUCTION AIDE [facility] ABS. MONOCYTES 0.67 0.00 - 1.50 x10'3/uL 08/01/2023 2:19 AM PRODUCTION AIDE [facility] ABS. EOSINOPHILS 0.15 0.00 - 0.40 x10'3/uL 08/01/2023 2:19 AM PRODUCTION AIDE [facility] ABS. BASOPHILS 0.03 0.00 - 0.20 x10'3/uL 08/01/2023 2:19 AM PRODUCTION AIDE [facility] ABS. IMMATURE GRANULOCYTES 0.01 0.00 - 0.03 x10'3/uL 08/01/2023 2:19 AM PRODUCTION AIDE [facility] ABS. NUCLEATED RBC'S 0.00 0.00 x10'3/uL 08/01/2023 2:19 AM PRODUCTION AIDE [facility] 08/01/2023 2:11 AM PRODUCTION AIDE Lionel Banegas DO LABORATORY Final Result [facility] [address] [place] [address], documented in this encounter Visit Diagnoses Diagnosis Personality disorder ([facility])- Primary Unspecified personality disorder Hypomagnesemia Disorders of magnesium metabolism documented in this encounter Administered Medications Inactive Administered Medications - up to 3 most recent administrations Medication Order MAR Action Action Date Dose Rate Site magnesium oxide (MAG-OX) tablet 800 mg 800 mg, Oral, Once, 1 dose, On 08/01/23 at 0330 Given 08/01/2023 5:01 AM PRODUCTION AIDE 800 mg documented in this encounter Active and Recently Administered Medications Times are shown in PRODUCTION AIDE. Scheduled Medication Order 07/30/2023 07/31/2023 08/01/2023 magnesium oxide (MAG-OX) tablet 800 mg (COMPLETED) 800 mg, Oral, Once, 1 dose, On 08/01/23 at 0330 0501 (Given - Provid er: Vidhi Busby RN) documented in this encounter Care Teams Taker Off Hemp Fiber Relationship Specialty Start Date End Date Abdon Villela MD [address] [place] [phone] PCP - General FAMILY PRACTICE 12/17/15 Pernell Vance MD [address] [place] [phone] Consulting Physician CARDIOVASCULAR DISEASE 07/05/1901/30 Kamilla Oliveira NP [address] [place] [phone] Referring Physician Nurse Practitioner Family 10/08/2104/14 Madan Palomo MD [address] [place] [address] EP Registered Pharmacy Technician CLINICAL CARDIAC ELECTROPHYSIOLOGY 10/08/21 documented as of this encounter
--- OUTSIDE RECORDS SUMMARY | 2024-06-08 06:09 | XMS_ITS | Encounter Summary ---
Author Organization [facility] Address [address] [place] [address]. [place] [address] [place] [address] Care Team Providers Care Skein Yarn Drier Name Role Phone Abdon Mendoza MD Primary Care Provider [phone] Pernell Vance MD Unavailable UnavailKamilla Lazaro NP Unavailable Unavailable Madan Palomo MD Unavailable [phone] Reason for Referral * Home Health Care (Routine) - Closed Specialty Diagnoses / Procedures Referred By Contac t Referred To Contact Home Health Services Diagnoses Dehydration Fall Impaired mobility and ADLs Procedures OFFICE/OUTPT VISIT,NEW,LEVL III OFFICE/OUTPT VISIT,NEW,LEVL IV OFFICE/OUTPT VISIT,NEW,LEVL V OFFICE/OUTPT VISIT,EST,LEVL III OFFICE/OUTPT VISIT,EST,LEVL IV OFFICE/OUTPT VISIT,EST,LEVL V Nanda Bedoya NP [address] [place] [address] Phone: tel: fax: Referral ID Status Reason Start Date Expiration Date V isits Requested Visits Authorized [id number] Closed Home Health Services 01/21/2023 01/21/2024 1 1 * Imaging (Urgent) - Closed Specialty Diagnoses / Procedures Referred By Conttejas t Referred To Contact RADIOLOGY Procedures CT SHOULDER RT WO CON Nanda Bedoya NP [address] [place] [address] Phone: tel: fax: Referral ID Status Reason Start Date Expiration Date Visits Re quested Visits Authorized [id number] Closed 01/19/2023 01/20/2024 1 1 * (Routine) - Canceled Specialty Diagnoses / Procedures Referred By Contac t Referred To Contact Procedures OT eval and treat Joi Elizabeth NP [address] [place] [address] Phone: tel: fax: Referral ID Status Reason Start Date Expiration Date V isits Requested Visits Authorized [id number] Canceled 01/18/2023 01/19/2024 1 1 * (Routine) - Canceled Specialty Diagnoses / Procedures Referred By Contac t Referred To Contact Procedures PT eval and Joi Brown NP [address] [place] [address] Phone: tel: fax: Referral ID Status Reason Start Date Expiration Date V isits Requested Visits Authorized [id number] Canceled 01/18/2023 01/19/2024 1 1 * Imaging (Emergency) - Closed Specialty Diagnoses / Procedures Referred By Contac t Referred To Contact RADIOLOGY Procedures CT HEAD WO CON Abdon Yarbrough DO [address] [place] [id number] Phone: tel: fax: Referral ID Status Reason Start Date Expiration Date Visits Re quested Visits Authorized [id number] Closed 01/17/2023 01/18/2024 1 1 Reason for Visit * Reason Comments Fall Medical Problem * Auth/Cert (Routine) Specialty Diagnoses / Procedures Referred By Contac t Referred To Contact Diagnoses Dehydration Fall Impaired mobility and ADLs Dehydration Procedures GENERAL Allen Chanel MD [address] [place] [address] Phone: tel: fax: Referral ID Status Reason Start Date Expiration Date Visits Re quested Visits Authorized [id number] 1 1 Encounter Details Date Type Department Care Team (Late st Contact Info) Description 01/17/2023 11:04 AM CDT - 01/21/2023 4:28 PM CDT Hospital Encounter [facility] [address] [place] [address] Abdon Yarbrough, DO [address] [place] [address] Abdon Mendoza MD [address] [place] [address] Allen Chanel MD [address] [place] [address] Fall; Medical Problem Discharge Disposition: Longterm Facility Social History Tobacco Use Types Packs/Day Years Used Date Smoking Tobacco: Former Cigarettes 1 29.6 0 02/14/1966 - 10/07/1995 Pipe Smokeless Tobacco: Never Tobacco Cessation:Counseling Given: Not Answered Alcohol Use Standard Drinks/Week Comments No 0 (1 standard drink = 0.6 oz pur e alcohol) Humiliation, Afraid, Rape, and Kick questionnair e Answer Date Recorded Within the last year, have y ou been afraid of your partner or ex-partner? No 01/17/2023 Within the last year, have y ou been humiliated or emotionally abused in other ways by your partner or ex-partner? No Within the last year, have y ou been kicked, hit, slapped, or otherwise physically hurt by your partner or ex-partner? No 01/17/2023 Within the last year, have y ou been raped or forced to have any kind of sexual activity by your partner or ex-partner? No 01/17/2023 Overall Financial Resource Strain (CARDIA) Answe r Date Recorded How hard is it for you to pa y for the very basics like food, housing, medical care, and heating? Not very hard 01/17/2023 Hunger Vital Sign Answer Date Recorded Within the past 12 months, y ou worried that your food would run out before you got the money to buy more. Never true 01/18/20 23 Within the past 12 months, t he food you bought just didn't last and you didn't have money to get more. Never true 01/17/2023 PRAPARE - Transportation Answer Date Re corded In the past 12 months, has l ack of transportation kept you from medical appointments or from getting medications? No 12/21 In the past 12 months, has l ack of transportation kept you from meetings, work, or from getting things needed for daily living? No 01/17/2023 Housing Stability Vital Sign Answer Malik e Recorded In the last 12 months, was t here a time when you were not able to pay the mortgage or rent on time? No 01/17/2023 In the last 12 months, how many places have you lived? 1 01/17/2023 In the last 12 months, was t here a time when you did not have a steady place to sleep or slept in a alf (including now)? No 01/17/2023 Sex and Gender Information Value Date Recorded [...] Sign Reading Time Taken Comments Blood Pressure 114/54 01/21/2023 1:00 PM CDT Pulse 59 01/21/2023 1:00 PM CDT Temperature 36.2 ??C (97.1 ??F) 01/21/2023 1:00 PM CD T Respiratory Rate 20 01/21/2023 10:0 1 AM CDT Oxygen Saturation 99% 01/21/2023 1:00 PM CDT Inhaled Oxygen Concentration - - Weight 100.1 kg (220 lb 9.6 oz) 01/21/2023 5:33 AM CDT Height 182.9 cm (6') 01/17/2023 4:25 PM CDT Body Mass Index 29.92 01/17/2023 4:25 PM CDT documented in this encounter Functional Status * Question Answer Date of Assessment Author Status Do you have serious difficulty walking or climbing stairs? Yes 01/17/2023 5:13 PM SAVIT Joi Allison RN A ctive * Question Answer Date of Assessment Author Status Do you have difficulty dressing or bathing? Yes 01/17/2023 5:13 PM CDT Joi Allison RN Active Because of a physical, mental, or emotional condition, do you have difficulty doing errands alone such as visiting a doctor's office or shopping? Yes 01/17/2023 5:13 PM Joi Robles RN Ac tive * Are you deaf or do you have serious difficulty hearing Answer Date of Assessment Author Status Yes 01/17/2023 5:13 PM Joi Robles RN Active * Are you blind or do you have serious difficulty seeing, even when wearing glasses? Answer Date of Assessment Author Status No 01/17/2023 5:13 PM Joi Robles RN Active * Do you have serious difficulty walking or climbing stairs? Answer Date of Assessment Author Status Yes 01/17/2023 5:13 PM Joi Robles RN Active * Do you have difficulty dressing or bathing? Answer Date of Assessment Author Status Yes 01/17/2023 5:13 PM Joi Robles RN Active * Because of a physical, mental, or emotional condition, do you have difficulty doing errands alone such as visiting a doctor's office or shopping? Answer Date of Assessment Author Status Yes 01/17/2023 5:13 PM Joi Robles RN Active documented as of this encounter Mental Status * Question Answer Entry Date Author Status Because of a physical, mental, or emotional condition, do you have serious difficulty concentrating, remembering, or making decisions? Yes 01/17/2023 5:13 PM Joi Robles RN Active * Because of a physical, mental, or emotional condition, do you have serious difficulty concentrating, remembering, or making decisions? Answer Entry Date Author Status Yes 01/17/2023 5:13 PM CDT Joi Allison RN Active documented in this encounter Discharge Summaries * Nanda Bedoya NP - 01/21/2023 2:10 PM CDT Images from the original note were not included. Physician Discharge Summary Patient ID: Annie Crocker. male. 1945. Admit date: 01/17/2023 11:04 AM Discharge date and time: 01/21/23 Admitting Physician: Allen Chanel MD Primary Care Physician: ABDON MENDOZA MD Attending Provider: Abdon Mendoza MD Discharge Physician: Abdon Mendoza MD/NANDA BEDOYA NP Primary Diagnoses: Dehydration Deconditioning Right shoulder pain left Right foot pain Secondary Diagnosis: Right shoulder pain Hypertension Diabetes mellitus type 2 Hypokalemia Admission Condition: fair Discharged Condition: Good Code Status: Full Code Indication for Admission: Chief Complaint Patient presents with Fall Medical Problem Reason for hospitalization: Dehydration, deconditioning, leukocytosis Hospital Course: Annie Crocker was admitted on 01/17/2023 11:04 AM for right shoulder and right foot pain after suffering multiple falls. lesvia Crocker is a 77-year-old male with a history of CAD, DM, HLD, HTN who presented to the ER with complaints of right shoulder and right foot pain after suffering multiple falls. Patient was found on the floor by family prior to ER admission believes that he had been on the floor for approximately 2 hours. Patient endorses falling in the shower on Thursday as well. Family reports that he has not been taking his medications or caring for himself appropriately over the past week. They alsoreport a general increase in weakness over the last 6 months. Patient had confusion in ER. ED work-up includes CMP showing potassium 3.2 BUN of 27. CBC shows WBC of 12.72. BNP elevated at 2572. Troponin of 64. CT of the head shows no acute intercranial process, small vessel disease and minimal bilateral maxillary sinusitis. X-ray of the right shoulder shows no acute abnormality and arthritic changes x-ray of the foot shows no acute osseous abnormalities, potential gout. Patient required 2 L bolus of fluids to obtain UA. Patient was admitted for dehydration, fall and impaired mobility. Patient with complains of lower extremity weakness, right shoulder and leg pain. Patient states that he is unable to raise right arm however when repositioned in bed patient is able to raise right arm approximately 10 inches off the bed. Patient endorses chronic cough. Patient denies fever, chills or other complaints at this time. Patient seen bedside, c/o right arm and right leg pain. Patient did not work well with PT/OT, due to pain. Discussed ambulating in hallway with PT today. Patient unable to left his right arm off the bed. CT right arm negative. Patient with limited range of motion of the right shoulder due to discomfort. CT with arthritis confirmed. Discussed ambulating out in hallway after transferring from sit to stand today. Pt continues to require max A for bed mobility this morning. Pt then required min A of 2 for sit to stand and then min to mod A of 1-2 during ambulation with FWW and chair following forsafety concerns. Pt does seem fatigued and presents with bilateral LE weakness throughout ambulation. Pt will benefit from continued skilled PT at a SNF as patient is unable to return home due to being unsafe and requiring min to mod A of 1-2. Discussed importance of endurance and gait training SNF. Patient agreed. Patient is ready for discharge to shelter facility. Consults: none Significant Diagnostic Studies: Radiology Results (Last 30 days) 01/19/[address] SHOULDER RT WO CON Final result Impression: IMPRESSION: No acute right shoulder abnormality. Dictated By: Letty Elizalde on 01/19/2023 6:49 PM The attending radiologist has reviewed the image(s) and agrees with the content of this report. Ordered By: NANDA BEDOYA Interpreted By: Letty Elizalde, 01/19/2023 6:49 PM 01/18/23 1555 XR CHEST PA+LAT Final result Impression: Impression: 1. Mild pulmonary vascular congestion. 2. Small right pleural effusion. Referred By: Interpreted By: Akira Castaneda MD, 01/18/2023 4:17 PM 01/17/[address] HEAD WO CON Final result Impression: IMPRESSION: 1. No acute intracranial process identified. 2. Small vessel disease. 3. Minimal bilateral maxillary sinusitis. Referred By: Interpreted By: Morgan Thornton MD, 01/17/2023 1:33 PM 01/17/23 1205 XR SHOULDER RT MIN 2V Final result Impression: IMPRESSION: 1. No acute abnormality. 2. Arthritic changes. Ordered By: ABDON YARBROUGH Interpreted By: Percy Bianchi MD, 01/17/2023 12:10 PM 01/17/23 1205 XR FOOT RT 3V Final result Impression: IMPRESSION: 1. No acute osseous abnormalities are identified. 2. Potential gout. Clinical correlation recommended. Referred By: Interpreted By: Bartolome Dillard DO, 01/17/2023 12:10 PM Vital Signs at Discharge: Filed Vitals: 01/21/23 0135 01/21/23 0533 01/21/23 1001 01/21/23 1300 BP: 125/63 125/68 118/58 114/54 Pulse: 60 60 60 (!) 59 Resp: 20 20 20 Temp: 96.8 ??F (36 ??C) 97 ??F (36.1 ??C) 97.2 ??F (36.2 ??C) 97.1 ??F (36.2 ??C) TempSrc: Tympanic Tympanic Tympanic Tympanic SpO2: 96% 95% 95% 99% Weight: 100.1 kg (220 lb 9.6 oz) Height: Last labs past 24 hours: Recent Results (from the past 24 hour(s)) CBC W/DIFF AUTOMATED Collection Time: 01/21/23 5:05 AM Result Value Ref Range WBC 8.72 4.00 - 10.80 x10'3/uL RBC 3.81 (L) 4.50 - 6.10 x10'6/uL HGB 10.4 (L) 13.0 - 18.0 G/DL HCT 32.0 (L) 37.0 - 52.0 % MCV 84.0 78.0 - 100.0 FL MCH 27.3 27.0 - 31.0 PG MCHC 32.5 (L) 33.0 - 36.0 G/DL RDW 16.6 (H) 11.5 - 14.5 % PLT 181 150 - 350 x10'3/uL MPV 11.0 (H) 7.4 - 10.4 FL CBC COMMENT NORMAL REFERENCE RANGE NOT ESTABLISHED FOR THE PROPORTIONAL LEUKOCYTE DIFFERENTIAL. NEUTROPHILS 73.2 % LYMPHOCYTES 15.7 % MONOCYTES 7.7 % EOSINOPHILS 3.0 % BASOPHILS 0.2 % IMMATURE GRANS 0.2 % NRBC 0.0 % ABS. NEUTROPHILS 6.38 1.60 - 8.30 x10'3/uL ABS. LYMPHOCYTES 1.37 0.80 - 4.70 x10'3/uL ABS. MONOCYTES 0.67 0.00 - 1.50 x10'3/uL ABS. EOSINOPHILS 0.26 0.00 - 0.40 x10'3/uL ABS. BASOPHILS 0.02 0.00 - 0.20 x10'3/uL ABS. IMMATURE GRANULOCYTES 0.02 0.00 - 0.03 x10'3/uL ABS. NUCLEATED RBC'S 0.00 0.00 x10'3/uL COMPREHENSIVE METABOLIC PANEL Collection Time: 01/21/23 5:05 AM Result Value Ref Range SODIUM S/P/B 140 136 - 145 MMOL/L POTASSIUM S/P/B 4.0 3.5 - 5.1 MMOL/L CHLORIDE S/P/B 106 98 - 107 MMOL/L CO2 27.2 21.0 - 32.0 MMOL/L GLUCOSE 130 (H) 70 - 99 MG/DL BUN 23 6 - 24 MG/DL CREATININE S/P/B 0.62 (L) 0.70 - 1.30 MG/DL CALCIUM S/P/B 8.0 (L) 8.4 - 10.5 MG/DL BILIRUBIN TOTAL S/P/B 0.9 0.2 - 1.0 MG/DL ALKALINE PHOSPHATASE S/P/B 80 45 - 115 U/L AST 40 (H) 15 - 37 U/L ALT 41 16 - 63 U/L TOTAL PROTEIN S/P/B 5.4 (L) 6.4 - 8.2 G/DL ALBUMIN S/P/B 2.0 (L) 3.4 - 5.0 G/DL ANION GAP 6.8 5.0 - 15.0 MMOL/L OSMOLALITY (CALC) 295 MOSM/KG GFR ESTIMATE >90 >89 ML/MIN/1.73 M2 GFR NOTES GFR REFERENCES: Discharge Medications: Medication List START taking these medications Morning Afternoon Evening Bedtime As Needed acetaminophen 500 MG tablet Commonly known as: TYLENOL Take 2 tablets (1,000 mg total) by mouth every 6 (six) hours as needed. Signed by: Nanda Bedoya NP CONTINUE taking these medications Morning Afternoon Evening Bedtime As Needed amLODIPine 2.5 MG tablet Commonly known as: NORVASC Take 2 tablets (5 mg total) by mouth daily. Last time this was given: 5 mg on January 21, 2023 9:59 AM apixaban 5 MG tablet Commonly known as: Eliquis Take 1 tablet (5 mg total) by mouth 2 (two) times daily. Last time this was given: 5 mg on January 21, 2023 10:00 AM Signed by: Dr. Madan Palomo MD atorvastatin 80 MG tablet Commonly known as: LIPITOR TAKE 1 TABLET BY MOUTH DAILY Last time this was given: 80 mg on January 20, 2023 8:33 PM Signed by: Dr. Vik Colvin MD glipiZIDE 10 MG tablet Commonly known as: GLUCOTROL Take 1 tablet (10 mg total) by mouth 2 (two) times daily. Last time this was given: 10 mg on January 21, 2023 6:04 AM lisinopril 40 MG tablet Commonly known as: PRINIVIL Take 1 tablet (40 mg total) by mouth daily. Last time this was given: 40 mg on January 21, 2023 9:59 AM Signed by: Dr. Vik Colvin MD magnesium oxide 400 (241.3 Mg) MG tablet Commonly known as: MAG-OX Take 1 tablet (400 mg total) by mouth daily. Last time this was given: 400 mg on January 21, 2023 9:59 AM metFORMIN 1000 MG tablet Commonly known as: GLUCOPHAGE Take 1 tablet (1,000 mg total) by mouth 2 (two) times daily. Last time this was given: 1,000 mg on January 21, 2023 9:59 AM nitroglycerin 0.4 MG SL tablet Commonly known as: NITROSTAT Take 1 tablet (0.4 mg total) by mouth every 5 (five) minutes as needed. polyethylene glycol 17 GM/SCOOP powder Commonly known as: GLYCOLAX vitamin B-12 1000 MCG tablet Commonly known as: CYANOCOBALAMIN Take 1 tablet (1,000 mcg total) by mouth daily. Last time this was given: 1,000 mcg on January 21, 2023 10:00 AM STOP taking these medications carvedilol 12.5 MG tablet Commonly known as: COREG hydroCHLOROthiazide 25 MG tablet Commonly known as: HYDRODIURIL Disposition: discharged to shelter facility Durable Medical Equipment Needed: Wheeled walker Patient Instructions: Activity: activity as tolerated Diet: diabetic diet Wound Care: none needed Follow-up appointments: Follow-up appointment with PCP in 1 week or skilled facility faculty Findings that require further workup: Strengthening and endurance Lab Frequency Next Occurrence Up With Assistance As needed CBC W/DIFF AUTOMATED Daily (early AM pickups) COMPREHENSIVE METABOLIC PANEL Daily (early AM pickups) Time Spent on Discharge Less than 30 minutes Signed: NANDA BEDOYA NP-[facility] 01/21/23 Cosigned by Abdon Mendoza MD at 01/24/2023 10:11 AM CDT Associated attestation - Abdon Mendoza MD - 01/24/2023 10:11 AM CDT I, ABDON MENDOZA MD, participated in the care of this patient today and discussed the plan of care with , ADOLFO, who shared in this visit. I have reviewed the ADOLFO's documentation and agree with the findings except as I have documented. I personally spent minutes, caring for this patient. ABDON MENDOZA MD documented in this encounter Medications at Time of Discharge apixaban (ELIQUIS) 5 MG tablet Take 1 tablet (5 mg total) by mouth 2 (two) times daily. 60 tablet 5 09/19/2022 metFORMIN 1000 MG tablet Take 1 tablet (1,000 mg total) by mouth 2 (two) times daily. 09/13/2014 polyethylene glycol powder Take 17 g by mouth daily as needed (constipation ). 06/11/2018 acetaminophen (TYLENOL) 500 MG tablet Take 2 tablets (1,000 mg total) by mouth every 6 (six) hours as needed. 30 tablet 01/21/2023 01/31/2023 amLODIPine 2.5 MG tablet Take 2 tablets (5 mg total) by mouth daily. 12/30/2019 07/27/2023 ATORVASTATIN 80 MG tablet TAKE 1 TABLET BY MOUTH DAILY 90 tablet 05/18/2019 07/27/2023 glipiZIDE 10 MG tablet Take 1 tablet (10 mg total) by mouth 2 (two) times daily. 09/13/2014 07/31/2023 lisinopril 40 MG tablet Take 1 tablet (40 mg total) by mouth daily. 90 tablet 04/05/2019 07/27/2023 magnesium oxide 400 (241.3 Mg) MG tablet Take 1 tablet (400 mg total) by mouth daily. 05/25/2024 nitroGLYCERIN 0.4 MG SL tablet Take 1 tablet (0.4 mg total) by mouth every 5 (five) minutes as needed. 04/30/2015 07/27/2023 vitamin B-12 1000 MCG tablet Take 1 tablet (1,000 mcg total) by mouth daily. 03/02/2024 documented as of this encounter Progress Notes * Joi Elizabeth NP - 01/21/2023 4:28 PM CDT Dear Joi Elizabeth NP: Chart review has indicated your clinical opinion is needed regarding the following diagnosis. Please continue to document your diagnoses on subsequent Progress Notes through to the Discharge Summary. Patient Name: ANNIE CROCKER Account: [id number] CLINICAL INDICATORS: Wound Bed Assessment: -Wound Coccyx: Clean; Dry; Partial Thickness; Fragile; Red; dressing -Hip Proximal; Upper; Right Pressuresore [[facility] nursing flowsheets 01/17] Skin: coccyx wound, right upper hip pressure sore, groin excoriation -Unintended weight loss related to taste changes/decreased appetite as evidenced by weight loss of 7% x 4 months. [Progress Notes - Registered Dietitian - GISELLE CHING, 01/19/2023] 77-year-old male with a history of CAD, DM, HLD, HTN who presented to the ER with complaints of right shoulder and right foot pain after suffering multiple falls. Patient was found on the floor by family prior to ER admission believes that he had been on the floor for approximately 2 hours. Patientendorses falling in the shower on Thursday as well. Family reports that he has not been taking hismedications or caring for himself appropriately over the past week. They also report a general increase in weakness over the last 6 months. Patient had confusion in ER. #dehydration #deconditioning ? Morphine 2 mg every 3 hours as needed for pain severe rating 8-10 ? PT/OT eval and treat Thursday ? Up with assist ? Activity as tolerated [H&P - Nurse Practitioner - JOI ELIZABETH, 01/18/2023] Based on medical judgment and consideration of these clinical indicators, the following condition was evaluated, monitored and/or treated during this episode of care: -Unspecified coccyx wound Your response serves as your authenticated entry to the Legal Medical Record. The fact that a question is asked does not imply that any particular diagnosis is desired or expected. Thank you, Alexus Arevalo RN, CDS Clinical Documentation Integrity Program Email: [email or web address] May also contact via [email or web address] Cosigned by Allen Chanel MD at 01/27/2023 7:56 AM CDT * Joi Elizabeth NP - 01/21/2023 4:28 PM CDT Dear Joi Elizabeth NP: Chart review has indicated your clinical opinion is needed regarding the following diagnosis. Please continue to document your diagnoses on subsequent Progress Notes through to the Discharge Summary. Patient Name: ANNIE CROCKER Account: [id number] CLINICAL INDICATORS: Wound Bed Assessment: -Hip Proximal; Upper; Right Pressuresore -Wound Coccyx: Clean; Dry; Partial Thickness; Fragile; Red; dressing [[facility] nursing flowsheets 01/17] Skin: coccyx wound, right upper hip pressure sore, groin excoriation -Unintended weight loss related to taste changes/decreased appetite as evidenced by weight loss of 7% x 4 months. [Progress Notes - Registered Dietitian - GISELLE ALO, 01/19/2023] 77-year-old male with a history of CAD, DM, HLD, HTN who presented to the ER with complaints of right shoulder and right foot pain after suffering multiple falls. Patient was found on the floor by family prior to ER admission believes that he had been on the floor for approximately 2 hours. Patientendorses falling in the shower on Thursday as well. Family reports that he has not been taking hismedications or caring for himself appropriately over the past week. They also report a general increase in weakness over the last 6 months. Patient had confusion in ER. #dehydration #deconditioning ? Morphine 2 mg every 3 hours as needed for pain severe rating 8-10 ? PT/OT eval and treat Thursday ? Up with assist ? Activity as tolerated [H&P - Nurse Practitioner - JOI ELIZABETH, 01/18/2023] Based on medical judgment and consideration of these clinical indicators, the following condition was evaluated, monitored and/or treated during this episode of care: -Right hip non-pressure ulcer Your response serves as your authenticated entry to the Legal Medical Record. The fact that a question is asked does not imply that any particular diagnosis is desired or expected. Thank you, Alexus Arevalo RN, [facility] Clinical Documentation Integrity Program Email: [email or web address] May also contact via [email or web address] Cosigned by Allen Chanel MD at 01/27/2023 7:57 AM CDT * Heaven Meza, POWER AND RECOVERY SHIFT ENGINEER - 01/21/2023 3:20 PM CDT 01/21/23 1343 Therapy Visit Ordering Provider Dr. Mendoza Subjective Pt sitting in chair and agrees to B LE strengthening exercises. Pt denies any pain pre treatment. Reason for admission Dehydration Verified Two Patient Identifiers Yes Patient consents to therapy Yes Acute Inpatient PT Time Calculation PT Start Time 1343 PT Stop Time 1356 PT Time Calculation (min) 13 min Precautions General Precautions Fall Risk;Chair Alarm Pain Pain Patient does not offer or c/o pain Activity Tolerance Endurance Tolerates 10 - 20 min activity with rests Endurance Quality Poor Limiting Factors to Endurance Weakness;Acute deconditioning Exercises Ankle Pumps B x15 Quad Sets B x10 Short Arc Quad B x15 Heelslides B x10 assisted Straight Leg Raise B x10 assisted Glut Sets x10 Hip Abduction B x10 assisted Sitting LE Exercise B LAQ x10 PT Assessment PT Assessment Pt completed BLE strengthening exercises to facilitate independence with mobility tasks and overall endurance strengthening. Pt requires constant cueing to complete all repetitions and to complete them correctly. Pt is easily distracted and does require assistance with several exercises due to extreme weakness. Pt left in chair with legs elevated and chair alarm activated. Call light within reach. Discharge Recommendation PT Recommendation PT at shelter Facility PT Equipment Recommended 2 Wheeled walker Plan PT Treatments/Interventions Gait Training;Therapeutic Exercises;Therapeutic Activities Progress Progressing toward goals PT Frequency Daily;BID End of Session End of Session Safety Call light within reach;Chair alarm set/activated * Aliza Posada RN - 01/21/2023 3:09 PM CDT Problem: Reduced risk for falls/injury Goal: Reduced Risk for Falls/Injury Outcome: Adequate for Discharge Goal: Reduced Risk of Confusion (Acute vs Chronic) Outcome: Adequate for Discharge Goal: Reduced Risk of Symptomatic Depression Outcome: Adequate for Discharge Goal: Reduced Risk of Altered Elimination Outcome: Adequate for Discharge Goal: Reduced Risk of Dizziness/Vertigo/Balance Outcome: Adequate for Discharge Goal: Reduced Risk of Polypharmacy Outcome: Adequate for Discharge Problem: Skin integrity, Impaired-wound Goal: Absence of new skin breakdown Outcome: Adequate for Discharge Goal: Evidence of wound healing Outcome: Adequate for Discharge Problem: Skin integrity, Impaired-pressure injury/ulcer Goal: Absence of new skin breakdown Outcome: Adequate for Discharge Goal: Evidence of pressure injury/ulcer healing Outcome: Adequate for Discharge Problem: Moisture associated skin impairment Goal: Reduce moisture exposure Outcome: Adequate for Discharge Problem: Balance Goal: STG - Pt to demonstrate static standing balance Description: Of good, able to stand mod ind with 2 w/w for up to 30 seconds with LOB. Outcome: Adequate for Discharge Problem: Mobility Goal: STG - Pt will ambulate Description: 15'x1 CGAx1 using 2 w/w to go to bathroom. Outcome: Adequate for Discharge Problem: Safety Goal: STG - Pt to demonstrate pressure reduction techniques Description: In supine, able to roll L and R independently with minimal cuing for timing. Outcome: Adequate for Discharge Problem: Transfers Goal: STG - Pt will perform bed mobility Description: Mod ind with use of railing as needed. Outcome: Adequate for Discharge Goal: STG - Pt will perform sit to stand Description: MinAx1 using 2 w/w. Outcome: Adequate for Discharge Goal: STG - Pt will perform stand pivot transfer Description: MinAx1 to get to and from bed and other sitting surfaces. Outcome: Adequate for Discharge * Ashlee Almodovar RN - 01/21/2023 1:39 PM CDTSummary: Subsequent IM notice 01/21/23 1048 Forms Reinforcement Important Message from Medicare (Subsequent IMM) Signed Copy delivered Reviewed Important Message from Medicare with Patient. The form was initialed by the Patient as having been received and understood. A copy of the form was left with Patient and a copy of the form was placed in the patient's skinny file for scanning. * Ashlee Almodovar RN - 01/21/2023 1:37 PM CDTSummary: FINAL d/c note CM informed that patient will be discharging today. Final D/C Plan Destination: [facility] ([place], [place]) Transportation: private vehicle Nursing # to call for N2N Report: [phone] # to fax D/C summary and orders: [phone] Remember to send WRITTEN scripts for all controlled substances * Ashlee Almodovar RN - 01/21/2023 1:36 PM CDTSummary: Daily IDR note 01/21/23 1000 Interdisciplinary Group Conference Team Members Present Case/Care management;Nursing;Pharmacy;Dietary;ADOLFO Pt is to d/c this afternoon to [facility] in [place], [place]. * Ashlee Almodovar RN - 01/21/2023 1:22 PM CDTSummary: FINAL d/c plan 01/21/23 1322 Discharge Planning Support Systems Children Type of Residence FDC IV Infusion at discharge No Patient expects to be discharged to: Prison DME Needed at Discharge No Annie is to discharge to [facility] in [place], [place]. Family to transport today. * Heaven Meza PTA - 01/21/2023 1:17 PM CDT Pt showing some progression, but not enough to return home independently and will benefit from continued skilled PT at a SNF. * Heaven Meza PTA - 01/21/2023 1:16 PM CDT 01/21/23 1013 Therapy Visit Ordering Provider Dr. Mendoza Subjective Pt supine in bed this morning and agrees to therapy. Pt denies any pain pre treatment. Reason for admission Dehydration Verified Two Patient Identifiers Yes Patient consents to therapy Yes Acute Inpatient PT Time Calculation PT Start Time 1012 PT Stop Time 1025 PT Time Calculation (min) 13 min Precautions General Precautions Fall Risk;Chair Alarm Pain Pain No Activity Tolerance Endurance Tolerates 10 - 20 min activity with rests Endurance Quality Poor Limiting Factors to Endurance Weakness;Acute deconditioning Bed Mobility Supine to Sit Max assist to left TRANSFERS Sit to Stand Min assist;Assist of 2 Bed to Chair Min assist;Mod assist Gait Gait Assistance Mod assist (1-2 for safety) Assistive Device 2 Wheeled walker Distance Ambulated (ft) 20 ft Pattern Shuffle steps Balance Sitting - Static SBA;Support of one upper extremity Sitting - Dynamic SBA;Support of both upper extremities Standing - Static Min Assist;Mod Assist;Support of both upper extremities Standing - Dynamic Mod Assist;Support of both upper extremities PT Assessment PT Assessment Pt continues to require max A for bed mobility this morning. Pt then required min A of 2 for sit to stand and then min to mod A of 1-2 during ambulation with FWW and chair following forsafety concerns. Pt does seem fatigued and presents with bilateral LE weakness throughout ambulation. Pt positioned in chair with legs elevated and call light within reach. Chair alarm activated. Pt will benefit from continued skilled PT at a SNF as patient is unable to return home due to being unsafe and requiring min to mod A of 1-2. Discharge Recommendation PT Recommendation PT at shelter Facility PT Equipment Recommended 2 Wheeled walker Plan PT Treatments/Interventions Gait Training;Therapeutic Exercises;Therapeutic Activities Progress Progressing toward goals PT Frequency Daily;BID End of Session End of Session Safety Call light within reach;Chair alarm set/activated * MICHELLE Gao - 01/21/2023 12:08 PM CDT 01/21/23 1012 Therapy Visit OT Received On 01/21/23 Reason for admission Dehydration Ordering Provider Dr. Mendoza Verified Two Patient Identifiers Yes Patient consents to therapy Yes Acute Inpatient OT Time Calculation OT Start Time 1012 OT Stop Time 1024 OT Time Calculation (min) 12 min Subjective Subjective Pt supine in bed and agreeable to treatment. Pain Pain No Objective Objective Pt seen during skilled OT with focus on transfers,bed mobility,UB dressing, sponge bathing. ADL Bathing Assistance Maximal UE Dressing Assistance Stand by Bed Mobility Supine to Sit Max assist to left Functional Transfers Sit to Stand Assist of 2;Min assist Bed to Chair Mod assist (Mod assist of 1 or MIN of 2 for safety) Discharge Recommendation OT Recommendation OT at [facility] OT Equipment Recommended 2 Wheeled walker Plan OT Treatment/Intervention Self-care training;Therapeutic activities;Functional activity Progress Progressing toward goals End of Session End of Session Safety Chair alarm set/activated;Call light within reach * Leti Coburn RN - 01/20/2023 10:34 PM CDT Problem: Reduced risk for falls/injury Goal: Reduced Risk for Falls/Injury Outcome: Progressing Note: Fall precautions in place. Pt demonstrates understanding. Goal: Reduced Risk of Altered Elimination Outcome: Progressing Note: Pt offered frequent elimination Goal: Reduced Risk of Polypharmacy Outcome: Progressing Note: Medications discussed with pt. Problem: Skin integrity, Impaired-wound Goal: Absence of new skin breakdown Outcome: Progressing Note: Skin precautions in place. Wounds assessed and redressed. Problem: Skin integrity, Impaired-pressure injury/ulcer Goal: Absence of new skin breakdown Outcome: Progressing Note: No new skin breakdown noted at this shift. * Aliza Posada RN - 01/20/2023 3:49 PM CDT Problem: Reduced risk for falls/injury Goal: Reduced Risk for Falls/Injury Outcome: Progressing Note: Fall precautions are in place; call light within reach; room to remain clutter free Goal: Reduced Risk of Confusion (Acute vs Chronic) Outcome: Progressing Note: Pt is alert and oriented during shift Goal: Reduced Risk of Altered Elimination Outcome: Progressing Note: Pt is continent however wears depends for stress incontinence Goal: Reduced Risk of Dizziness/Vertigo/Balance Outcome: Progressing Note: Denies any dizziness during shift Goal: Reduced Risk of Polypharmacy Outcome: Progressing Problem: Skin integrity, Impaired-wound Goal: Absence of new skin breakdown Outcome: Progressing Note: No signs of new skin breakdown * Ashlee Almodovar RN - 01/20/2023 12:00 PM CDTSummary: Daily IDR note 01/20/23 1200 Interdisciplinary Group Conference Team Members Present Case/Care management;ADOLFO Referrals sent to SNFs; CM is following up on referrals. PASRR screen done. D/C pending SNF acceptance. * Zak Alex PTA - 01/20/2023 11:40 AM CDT Pt making slow progress, but still requiring significant assistance for all transfers, so will require residential placement upon discharge. * Zak Alex PTA - 01/20/2023 11:40 AM CDT 01/20/23926 Therapy Visit Ordering Provider Dr. Mendoza Subjective Pt lying supine in bed upon entry and agreeable to treatment. Reason for admission Dehydration Verified Two Patient Identifiers Yes Patient consents to therapy Yes Acute Inpatient PT Time Calculation PT Start Time 926 PT Stop Time 936 PT Time Calculation (min) 10 min Precautions General Precautions Fall Risk;Bed Alarm;Chair Alarm Pain Pain No Activity Tolerance Endurance Tolerates 10 - 20 min activity with rests Endurance Quality Poor Limiting Factors to Endurance Weakness;Acute deconditioning Bed Mobility Supine to Sit Max assist to left TRANSFERS Stand Pivot Transfers Mod assist;Assist of 2 Sit to Stand Mod assist;Assist of 2 Bed to Chair Mod assist;Assist of 2 Gait Gait Assistance YUMIKO Balance Sitting - Static SBA;Support of one upper extremity Sitting - Dynamic SBA;Support of one upper extremity Standing - Static Mod Assist Standing - Dynamic Mod Assist;Assist of 2 Persons PT Assessment PT Assessment Pt requiring significant assistance for all activity and unsafe to return home at this time. He will benefit from PT at a SNF upon discharge. Discharge Recommendation PT Recommendation PT at shelter Facility PT Equipment Recommended 2 Wheeled walker Plan PT Treatments/Interventions Gait Training;Therapeutic Exercises;Therapeutic Activities Progress Progressing toward goals PT Frequency BID End of Session End of Session Safety Call light within reach;Chair alarm set/activated * MICHELLE Gao - 01/20/2023 11:33 AM CDT 01/20/23910 Therapy Visit OT Received On 01/20/23 Reason for admission Pt is a 77 yo male who presents with fall, weakness, and dehydration....PMH:CAD, DM, HLD, HTN.....Eval and tx, up with assistance, activity as tolerated Ordering Provider Joi Elizabeth NP Verified Two Patient Identifiers Yes Patient consents to therapy Yes Acute Inpatient OT Time Calculation OT Start Time 910 OT Stop Time 935 OT Time Calculation (min) 25 min Subjective Subjective Pt supine in bed requesting to use the bathroom. Pain Pain No Objective Objective Pt seen during skilled OT with focus on transfers,bed mobility,UB dressing, sponge bathing,LB dressing and Urinal use. ADL Bathing Assistance Total Bathing Deficit Perineal area;Buttocks UE Dressing Assistance Stand by LE Dressing Assistance Total Toileting Assistance Stand by (with use of urinal sitting edge of bed) Bed Mobility Supine to Sit Max assist to left Functional Transfers Sit to Stand Mod assist;Assist of 2 Bed to Chair Mod assist;Assist of 2 Discharge Recommendation OT Recommendation OT at shelter facility OT Equipment Recommended To Be Determined Plan OT Treatment/Intervention Self-care training;Therapeutic activities;Functional activity Progress Slow progress, decreased activity tolerance End of Session End of Session Safety Call light within reach;Chair alarm set/activated * Nanda Bedoya NP - 01/20/2023 8:31 AM CDT Daily Progress Note Annie Crocker is a 77-year-old male patient. Primary Care Provider: ABDON MENDOZA MD Attending Provider: Abdon Mendoza MD LOS: 4 Days Reason for admission: 01/17/2023 11:04 AM Falls, right arm and foot pain Subjective: Patient seen sitting up in chair bedside, c/o right arm and arthritis pain in his knees. Discussed getting up and ambulating in the hallway today with PT. Assessment/Plan: #Dehydration Sodium chloride 2000 mL given IV bolus in ED Continue to monitor Resolved #Right shoulder pain #Deconditioning Morphine 2 mg every 3 hours as needed for pain severe rating 8-10 Tylenol 1000mg every 6 hrs PT/OT gt training, will need SNF CT of right shoulder negative #Leukocytosis WBC 12.72-> 12.23->10K Chest x-ray with mild pulmonary vascular congestion, small right pleural effusion Resolved #HTN #CHF ProBNP 2770 Amlodipine 5 mg daily Lisinopril 40 mg oral daily Stable #DM II Glucotrol 10 mg oral 2 times daily Glucophage 1000 mg oral 2 times daily Accu-Cheks 4 times daily and at bedtime Carb controlled diet #Hypokalemia 4.0 40mEq today Monitor Stable Plan: Pain control with Tylenol, PT/OT to get up and ambulate today, monitor labs. CT of right shouilder due to pain and edema, negative. Patient Active Problem List Diagnosis Cardiac pacemaker in situ Chronic atrial fibrillation ([facility]/HCC) ([facility]/HCC) Sinus node dysfunction (HHS/HCC) ([facility]/HCC) Chronic anticoagulation Coronary artery disease Hypertension Hyperlipidemia Chronic diastolic heart failure ([facility]/HCC) ([facility]) S/p bare metal coronary artery stent Dehydration amLODIPine 5 mg Oral Daily apixaban 5 mg Oral BID atorvastatin 80 mg Oral Nightly at bedtime docusate sodium 100 mg Oral BID glipiZIDE 10 mg Oral BID AC lisinopril 40 mg Oral Daily magnesium oxide 400 mg Oral Daily metFORMIN 1,000 mg Oral BID vitamin B-12 1,000 mcg Oral Daily acetaminophen, morphine, ondansetron, polyethylene glycol, Senna No Known Allergies Review of Systems: No shortness of breath No chest pain Objective: Blood pressure 125/68, pulse 60, temperature 97 ??F (36.1 ??C), temperature source Tympanic, resp. rate 20, height 6' (1.829 m), weight 100.1 kg (220 lb 9.6 oz), SpO2 95 %. Last 5 Recorded Weights 01/17/23 1625 01/18/23 0521 01/19/23 0530 01/20/23 0453 Weight: 102 kg (224 lb 14.4 oz) 102.2 kg (225 lb 3.2 oz) 103.1 kg (227 lb 6.4 oz) 101.1 kg (222 lb 12.8 oz) 01/21/23 0533 Weight: 100.1 kg (220 lb 9.6 oz) Telemetry: Recent Labs Lab 01/21/23 0505 WBC 8.72 HGB 10.4* PLT 181 Recent Labs Lab 01/21/23 0505 NA 140 K 4.0 CL 106 CO2 27.2 AGAP 6.8 BUN 23 CR 0.62* GLU 130* CA 8.0* ALB 2.0* TBIL 0.9 ALKP 80 AST 40* ALT 41 No results for input(s): INR in the last 168 hours. No results found for this visit on 01/17/23 (from the past 8736 hour(s)). No results found for this visit on 01/17/23 (from the past 8736 hour(s)). TROPONIN I Date Value Ref Range Status 03/13/2018 0.038 <0.045 ng/mL. Final TROPONIN I HIGH SENSITIVITY Date Value Ref Range Status 01/17/2023 64 0 - 76 ng/L Final estimated creatinine clearance is 120.3 mL/min (A) (based on SCr of 0.62 mg/dL (L)). Intake/Output Summary (Last 24 hours) at 01/21/2023 0831 Last data filed at 01/21/2023 0533 Gross per 24 hour Intake 990 ml Output 1700 ml Net -710 ml Physical Exam Vitals and nursing note reviewed. Constitutional: Appearance: He is obese. HENT: Head: Normocephalic and atraumatic. Right Ear: External ear normal. Left Ear: External ear normal. Nose: Nose normal. Eyes: General: No scleral icterus. Right eye: No discharge. Left eye: No discharge. Conjunctiva/sclera: Conjunctivae normal. Cardiovascular: Rate and Rhythm: Normal rate and regular rhythm. Pulses: Normal pulses. Pulmonary: Effort: Pulmonary effort is normal. Breath sounds: No wheezing, rhonchi or rales. Chest: Chest wall: No tenderness. Abdominal: General: Bowel sounds are normal. Palpations: Abdomen is soft. Tenderness: There is no abdominal tenderness. There is no right CVA tenderness, left CVA tenderness, guarding or rebound. Musculoskeletal: General: Swelling (right arm edema and bruising) present. Cervical back: Neck supple. Right lower leg: Edema present. Skin: General: Skin is warm and dry. Coloration: Skin is pale. Findings: Bruising present. Neurological: Mental Status: He is alert and oriented to person, place, and time. Mental status is at baseline. Motor: Weakness present. Psychiatric: Mood and Affect: Mood normal. Behavior: Behavior normal. NANDA BEDOYA NP 01/21/2023 Cosigned by Abdon Mendoza MD at 01/24/2023 10:10 AM CDT Associated attestation - Abdon Mendoza MD - 01/24/2023 10:10 AM CDT I, ABDON MENDOZA MD, participated in the care of this patient today and discussed the plan of care with , ADOLFO, who shared in this visit. I have reviewed the ADOLFO's documentation and agree with the findings except as I have documented. I personally spent minutes, caring for this patient. ABDON MENDOZA MD * Cyndee Can RN - 01/20/2023 12:12 AM CDT Problem: Reduced risk for falls/injury Goal: Reduced Risk for Falls/Injury Outcome: Progressing Note: Bed alarm on Goal: Reduced Risk of Confusion (Acute vs Chronic) Outcome: Progressing Note: Reorient patient as needed Goal: Reduced Risk of Symptomatic Depression Outcome: Progressing Note: Patient respirations WDL Goal: Reduced Risk of Altered Elimination Outcome: Progressing Note: Assist with elimination as needed Goal: Reduced Risk of Dizziness/Vertigo/Balance Outcome: Progressing Note: Rise patient slowly Goal: Reduced Risk of Polypharmacy Outcome: Progressing Note: RN, , and pharmacy collaborating in care Problem: Skin integrity, Impaired-wound Goal: Absence of new skin breakdown Outcome: Progressing Note: No new breakdown noted Goal: Evidence of wound healing Outcome: Progressing Note: Wounds kept clean and dry Problem: Skin integrity, Impaired-pressure injury/ulcer Goal: Absence of new skin breakdown Outcome: Progressing Note: No new breakdown noted Goal: Evidence of pressure injury/ulcer healing Outcome: Progressing Note: Wound kept clean and dry Problem: Moisture associated skin impairment Goal: Reduce moisture exposure Outcome: Progressing Note: Patient kept clean and dry * Dieter Fitzgerald, PT - 01/19/2023 5:11 PM CDT Instructions for Nursing: Pt required Max-Total A x 2 for stand-pivot transfer to chair. Physical Therapy Inpatient Evaluation Time In: 1047 Time Out: 1106 Annie Crocker 318/01 Dehydration [E86.0] Fall [W19.XXXA] Impaired mobility and ADLs [Z74.09, Z78.9] Past Medical History: Diagnosis Date Coronary artery disease Diabetes mellitus ([facility]/HCC) ([facility]/HCC) Disorder of prostate Hyperlipidemia Hypertension Pacemaker 09/10/2022 Past Surgical History: Procedure Laterality Date CORONARY ART DIL,ONE VESSEL 2010 INSER COBIAN PACER XVENOUS ATRIAL 05/04/2013 PACEMAKER Subjective: Orientation: x 2 to self and location. Pain: Pt did have pain in RUE and L knee, but was not able to rate it. Patient reports he usually gets pain in B knees that comes and goes. He does have a nephew that lives across the alley from him, but he cannot recall anyone that comes and checks on him regularly. Per chart review he has not been taking care of himself recently and was found on the floor, promptinghis ER visit and admission. Home Environment: House Entrance: Threshold with No handrail. Living arrangements - The patient lives alone. Patient has been ambulatory with independence or single point cane. But not a fully functional, independent ambulator. Objective: Patient was in bed upon pt arrival. Observation: Pt able to follow one-step commands with mild delay and needs increased time to complete tasks as requested. He is unaware of his deconditioning and tries to do things on his own despitedecreased safety and PT cuing. Pt requires some redirection and cuing that he is safe with PT and CREAM BEATER and that it is okay for him to use help. Pt not able to lift LLE on his own and required moderate encouragement to initiate transfers with help from PT. Precautions/Restrictions: High Fall Risk Transfers: Bed mobility/rolling: Mod A Supine to sit: Mod A Sit to stand: Max A x2 Pivot: Max A x 2 Note: Pt takes extremely long time with stand pivot transfer and requires multiple verbal and tactile cues to complete safely. From beginning to end of transfer he demonstrates severe fwd trunk lean and loses utilization management manager on usual handlebars of walker, grabbing the front despite cuing from PT. Ambulation: NT, Pt unable. Activity performed this session: Evaluation only this date. Assessment: Annie Crocker is a 77-year-old male who presents with a primary complaint of Dehydration [E86.0] Fall [W19.XXXA] Impaired mobility and ADLs [Z74.09, Z78.9]. Patient is demonstrating deficits in Strength, ROM, Posture, Balance, Cognition, Endurance, Mobility, and Transfers leading to decreased safety, increased fall risk, inability to perform home mobility, inability to perform self care, and decreased independence. Skilled therapy is appropriate at this time to address these impairments and to move the patient towards their goal of improved transfer and standing ability to be d/c from hospital. Recommended Interventions: Therapeutic Activity, Therapeutic Exercise, and Gait Training Rehab Potential: Guarded Personal Factors/Co-Morbidities Affecting Care: 3-4+ Examination of Body Systems: Low (1-2) Clinical Presentation of Patient: Stable Uncomplicated Eval Complexity: Low PT Plan: Frequency: QD/ BID Duration: 1 week Anticipated Discharge at this time: Prison or Longterm Facility Plan for next session:Transfer training; BLE exercise Safety at conclusion of Treatment: Patient in Chair, Call Light in Reach, Chair Alarm Activated, Nursing in Room, Nursing Notified of Situation, and all needs met per pt report. * Nanda Bedoya SOIL CONSERVATION AIDE - 01/19/2023 3:27 PM CDT Daily Progress Note Annie Crocker is a 77-year-old male patient. Primary Care Provider: ABDON MENDOZA MD Attending Provider: Abdon Mendoza MD LOS: 2 Days Reason for admission: 01/17/2023 11:04 AM Falls, right arm and foot pain Subjective: Patient seen bedside, c/o right arm and right leg pain. Patient did not work well with PT/OT, due to pain. Discussed ambulating in hallway with PT today. Patient unable to left his right arm off the bed. CT right arm negative. Assessment/Plan: #Dehydration Sodium chloride 2000 mL given IV bolus in ED Continue to monitor #Right shoulder pain #Deconditioning Morphine 2 mg every 3 hours as needed for pain severe rating 8-10 Tylenol 1000mg every 6 hrs PT/OT gt training, will need SNF CT of right shoulder negative #Leukocytosis WBC 12.72-> 12.23->10K Chest x-ray with mild pulmonary vascular congestion, small right pleural effusion #HTN #CHF ProBNP 2770 Amlodipine 5 mg daily Lisinopril 40 mg oral daily Stable #DM II Glucotrol 10 mg oral 2 times daily Glucophage 1000 mg oral 2 times daily Accu-Cheks 4 times daily and at bedtime Carb controlled diet #Hypokalemia 4.0 40mEq today Monitor Plan: Pain control with Tylenol, PT/OT eval and treat, monitor labs. CT of right shouilder due to pain and edema, negative. Patient Active Problem List Diagnosis Cardiac pacemaker in situ Chronic atrial fibrillation (HHS/HCC) (CMS/HCC) Sinus node dysfunction (HHS/HCC) (CMS/HCC) Chronic anticoagulation Coronary artery disease Hypertension Hyperlipidemia Chronic diastolic heart failure (HHS/HCC) (CMS/HCC) S/p bare metal coronary artery stent Dehydration amLODIPine 5 mg Oral Daily apixaban 5 mg Oral BID atorvastatin 80 mg Oral Nightly at bedtime docusate sodium 100 mg Oral BID glipiZIDE 10 mg Oral BID AC lisinopril 40 mg Oral Daily magnesium oxide 400 mg Oral Daily metFORMIN 1,000 mg Oral BID vitamin B-12 1,000 mcg Oral Daily morphine, ondansetron, polyethylene glycol, Senna No Known Allergies Review of Systems: No shortness of breath No chest pain Objective: Blood pressure 100/53, pulse (!) 59, temperature 97.2 ??F (36.2 ??C), temperature source Tympanic, resp. rate 20, height 6' (1.829 m), weight 103.1 kg (227 lb 6.4 oz), SpO2 96 %. Last 5 Recorded Weights 01/17/23 1110 01/17/23 1625 01/18/23 0521 01/19/23 0530 Weight: 99.8 kg (220 lb) 102 kg (224 lb 14.4 oz) 102.2 kg (225 lb 3.2 oz) 103.1 kg (227 lb 6.4 oz) Telemetry: Recent Labs Lab 01/19/23 0431 WBC 12.23* HGB 10.4* PLT 143* Recent Labs Lab 01/19/23 0431 NA 139 K 3.4* CL 103 CO2 30.7 AGAP 5.3 BUN 31* CR 0.81 GLU 163* CA 7.8* ALB 2.2* TBIL 1.3* ALKP 72 AST 37 ALT 35 No results for input(s): INR in the last 168 hours. No results found for this visit on 01/17/23 (from the past 8736 hour(s)). No results found for this visit on 01/17/23 (from the past 8736 hour(s)). TROPONIN I Date Value Ref Range Status 03/13/2018 0.038 <0.045 ng/mL. Final TROPONIN I HIGH SENSITIVITY Date Value Ref Range Status 01/17/2023 64 0 - 76 ng/L Final estimated creatinine clearance is 93.3 mL/min (based on SCr of 0.81 mg/dL). Intake/Output Summary (Last 24 hours) at 01/19/2023 1527 Last data filed at 01/19/2023 1436 Gross per 24 hour Intake 2030 ml Output 800 ml Net 1230 ml Physical Exam Vitals and nursing note reviewed. Constitutional: Appearance: He is obese. HENT: Head: Normocephalic and atraumatic. Right Ear: External ear normal. Left Ear: External ear normal. Nose: Nose normal. Eyes: General: No scleral icterus. Right eye: No discharge. Left eye: No discharge. Conjunctiva/sclera: Conjunctivae normal. Cardiovascular: Rate and Rhythm: Normal rate and regular rhythm. Pulses: Normal pulses. Pulmonary: Effort: Pulmonary effort is normal. Breath sounds: No wheezing, rhonchi or rales. Chest: Chest wall: No tenderness. Abdominal: General: Bowel sounds are normal. Palpations: Abdomen is soft. Tenderness: There is no abdominal tenderness. There is no right CVA tenderness, left CVA tenderness, guarding or rebound. Musculoskeletal: General: Swelling (right arm edema and bruising) present. Cervical back: Neck supple. Right lower leg: Edema present. Skin: General: Skin is warm and dry. Coloration: Skin is pale. Findings: Bruising present. Neurological: Mental Status: He is alert and oriented to person, place, and time. Mental status is at baseline. Motor: Weakness present. Psychiatric: Mood and Affect: Mood normal. Behavior: Behavior normal. NANDA BEDOYA NP 01/19/2023 Cosigned by Abdon Mendoza MD at 01/24/2023 10:10 AM CDT Associated attestation - Abdon Mendoza MD - 01/24/2023 10:10 AM CDT I, ABDON MENDOZA MD, participated in the care of this patient today and discussed the plan of care with , ADOLFO, who shared in this visit. I have reviewed the ADOLFO's documentation and agree with the findings except as I have documented. I personally spent minutes, caring for this patient. ABDON MENDOZA MD * Ashlee Almodovar RN - 01/19/2023 3:26 PM CDTSummary: PASRR screen PASRR screen submitted by CM. No level II required. * Ashlee Almodovar RN - 01/19/2023 3:09 PM CDTSummary: Initial D/C plan 01/19/23 1508 Anticipated DC Plan Support Systems Children Type of Residence FDC Patient expects to be discharged to: [facility] CM has sent referrals to 1. [facility] ([place], [place]) 2. [facility] 3. [facility] ([place], [place]) * Alondra Parra, OT - 01/19/2023 3:08 PM CDT OT Initial Evaluation Discharge Recommendation: OT/PT at SNF Activity Recommendation for patient transporter: up with 2 vs lift equipment 01/19/23 1400 Therapy Visit OT Received On 01/19/23 Reason for admission Pt is a 77 yo male who presents with fall, weakness, and dehydration....PMH:CAD, DM, HLD, HTN.....Eval and tx, up with assistance, activity as tolerated Ordering Provider Joi Elizabeth NP Verified Two Patient Identifiers Yes Patient consents to therapy Yes Acute Inpatient OT Time Calculation OT Start Time 1443 OT Stop Time 1508 OT Time Calculation (min) 25 min Precautions General Precautions Fall Risk;Bed Alarm Instructed on Precautions Yes;Needs reinforcement and education Skin Integrity RUE edema/redness Other telemetry Subjective Subjective Pt supine in bed upon arrival requires encouragement to work with therapist this date. Pt reports they almost dropped him on the floor earlier- also seems confused Home Living Home Living Comments Pt lives alone in a 1 SH with no stairs to enter/exit the home. He currently does not receive any Homemaker or [facility] services. Sherri and Amadeo report that he needs help with his ADLs but will not let anyone help him. Pt reports independence with self care. Pt no longer drives and family takes him where he needs to go. The only home DME he has is a cane and he does not use it hardly at all. Pt repors a fall at home in the shower Pain Pain Yes Pain Score Did not rate Location RUE, L knee Interventions Relaxation;Re-direction;Re-positioning Activity Tolerance Endurance Quality Fair Limiting Factors to Endurance Acute deconditioning;Weakness;Pain;Shortness of breath;Fatigue Cognition Overall Cognitive Status WFL Arousal/Alertness Appropriate responses to stimuli Attention Span Appears intact Orientation Level Oriented to person;Oriented to time Following Commands Follows one step commands consistently Safety Judgment Decreased awareness of need for safety Awareness of Errors Assistance required to correct errors made Deficits Decreased awareness of deficits Problem Solving Assistance required to implement solutions Comments Pt appears to have a fear of falling, requires frequent redirection this date as pt tends to focus on pain. Motor Planning Appears intact Initiation Cues to initiate tasks Overall Extremity Assessment Upper Extremity LUE WFL AROM, and BUE gen weakness gross strength R>L Pt unable to tolerate pressure to RUE due to swelling and redness-SOIL CONSERVATION AIDE aware ADL Additional Comments Pt total A all LB ADL care due to weakness and pain this date Bed Mobility Supine to Sit Min assist to right Sit to Supine Min assist to left;Other (assist with LE lifting) Other (Comment) Pt min A supine to EOB and EOB to supine reuqiring BLE support in and out of bed this date due to weakness and pain. Functional Transfers Sit to Stand Max assist Other (Comment) Pt max A stand from EOB with elevated bed height and use of GB. Pt reuqires max encouragement due to weakness, pain, and fear of falling. Balance Sitting - Static SBA;Support of one upper extremity Sitting - Dynamic SBA Standing - Static Max Assist Standing - Dynamic Not Tested Other (Comment) Unable to progress to further mobility as pt fatigued and limited by pain and weakness this date Assessment Occupational Profile and History Complexity Moderate (Expanded) Performance Skills Deficits Bathing/showering;Dressing;Functional mobility;Personal hygiene and grooming;Toileting Performance Deficit Level Moderate (3-5 deficits) Clinical Decision Making Moderate (min/mod modifications) Complexity Level of Evaluation Moderate Prognosis Good Discharge Recommendation OT Recommendation OT at shelter facility Plan Progress Slow progress, decreased activity tolerance OT Frequency 5 times/week (1-2/day) OT - Next Appointment 01/19/23 If this is the last treatment note, it will serve as the discharge summary Yes End of Session End of Session Safety Call light within reach;Bed alarm set/activated;Nursing aware of session;Transfer status education Pt reports independence as functional status POWER AND RECOVERY 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 Pt presents with weakness, pain, fear of falling,fatigue, decreased independence with LB dressing, grooming, and functional transfers; decreased standing activity tolerance, balance, and safety for functional tasks. Pt would benefit from continued OT at the acute care setting in order to address above stated deficits and maximize functional independence. Anticipate Pt to require SNF for therapy prior to d/c home. The below POC initiated 01/19/23 to be followed until 01/29/23 at that time POC to be re-assessed and modified if needed. Pt will complete all functional transfers in room and bathroom using 2WW with SBA in order to increase independence with functional transfers. Pt will increase standing activity balance using 2WW for 3-5 minutes with CGA in order to increase independence with ADLs, functional transfers, and leisure activities. Pt will perform all UB dressing with setup assist in order to increase independence with ADLs. Pt will perform all LB dressing using with Min A in order to increase independence with ADLs. Pt will brush teeth, wash face, brush hair, and wash hands standing/or seated at sink with 2WW withSBA in order to increase independence with ADLs. Pt will perform all toileting tasks including clothing management using 2WW with CGA in order to increase independence with functional transfers and ADLs. Pt will bathe whole body and wash hair seated on shower chair with min A in order to increase independence with ADLs. Pt will perform supine to sit and sit to supine bed mobility with Mod I in order to increase independence with ADLs, transitional movements, and functional mobility. Pt will increase activity tolerance/endurance to 6-11 minutes of activity with 1-2 rest breaks in order to increase independence with ADLs, functional transfers, bed mobility, and leisure activities. Pt will increase knowledge of energy conservation techniques, activity and rest routine, home safety, body mechanics and demonstrate use of techniques during functional activities with [place] in order to increase overall activity tolerance for increased independence with ADLs and IADLs. Pt will recall and perform 3/3 3-step commands during functional activity in order to increase functional cognition for increased independence and safety with ADLs and IADLs. Pt will increase Jose E UE strength to 4+/5 in supportive sitting in order to increase independence with ADLs, activity tolerance, and functional transfers. Pt will increase safety and memory recalling basic orientation and following complex verbal commands with no verbal cuing to increase safety and independence with ADLs and functional transfers. Education: Primary Learners Name: Annie Crocker Primary Language of learner: Belarusian Patient educated on precautions exercises transfers ADLs balance bed mobility equipment therapy plan safety edema management joint protection ROM. Education was completed one to one verbal hands-on this date. Preference of learning new concepts one to one verbal hands-on Barriers to education this date were Pt motivation pain fatigue anxious. Response to education this date needs follow up needs assistance. * Ashlee Almodovar RN - 01/19/2023 3:04 PM CDT 01/19/23 1504 Discharge Plan Discharge Plan Discharge to Longterm Facility - pending authorization Care Team is recommending SNF; patient and family agree. CM has started working on placement. Family will transport at time of discharge. * Ashlee Almodovar RN - 01/19/2023 3:03 PM CDTSummary: d/c screening 01/19/23 1507 DC screening tool This is a screening tool it does not take the place of a physical or occupational therapy evaluation. The screening is to screen the patient for what services and destination would be beneficial for patient for next level of care Conversation with the patient/family Discharge to Prior Residence/Living Situation - No New Needs Identified - Will continue to Assess No Longterm Facility (SNF): If NO, to question 6, refer to [facility]; If YES to questions 7-9 consider transition to SNF 6.Does the patient, if qualified agree to transition to a skilled facility for nursing and therapy needs and understand the financial obligation? CM/SW should explain the services provided at a SNF level facility Yes 7.Does the patient require assistance with ADL, transfer and ambulation and have no family, caregiver, or other support at home? Yes 8.Does the patient have cognitive difficulties that may requiring additional support or therapy? Yes 9.Does the patient have comorbid conditions that require 24/7 nursing care? Yes Based on the screening the DC plan for consideration is: Based on the screening the DC plan for consideration is: Longterm Facility Care Team is recommending SNF; patient and family agree. CM has started working on placement. Family will transport at time of discharge. * Hermelinda Lee, POWER AND RECOVERY SHIFT ENGINEER - 01/19/2023 2:25 PM CDT 01/19/23 1340 Therapy Visit Ordering Provider Joi Elizabeth NP Subjective Patient reports he is doing alright but ready to take a nap. Reason for admission fall Verified Two Patient Identifiers Yes Patient consents to therapy Yes Acute Inpatient PT Time Calculation PT Start Time 1340 PT Stop Time 1400 PT Time Calculation (min) 20 min Precautions General Precautions Fall Risk Pain Pain Patient does not offer or c/o pain Activity Tolerance Endurance Tolerates 10 - 20 min activity with rests Endurance Quality Fair Limiting Factors to Endurance Acute deconditioning;Weakness Cognition Overall Cognitive Status WFL Bed Mobility Sit to Supine Min assist to left;Other (assist with LE lifting) TRANSFERS Stand Pivot Transfers Mod assist;Assist of 2 Sit to Stand Mod assist;Assist of 2 Gait Gait Assistance YUMIKO (patient is unable to ambulate at this time) Assistive Device 2 Wheeled walker Balance Sitting - Static SBA;Support of one upper extremity Standing - Static Min Assist;Mod Assist;Assist of 2 Persons Standing - Dynamic Mod Assist;Assist of 2 Persons PT Assessment PT Assessment Patient remains mod A x2 for STS transfer however once standing the patient seems to have better control and requires min. A from therapist. Standing pivot transfer remains min-mod A x2for safety as patient is unstable once attempting to move. Some concern for R UE edema as swelling is significant surrounding proximal ulnar/radial heads. Pain noted with motion as well. Patient unable to ambulate at this time due to lack of strength. Discharge Recommendation PT Recommendation Long-term shelter home placement PT Equipment Recommended 2 Wheeled walker Plan PT Treatments/Interventions Therapeutic Exercises;Therapeutic Activities;Gait Training;Neuromuscular re-education Progress Improving as expected PT Frequency BID End of Session End of Session Safety Call light within reach;Bed alarm set/activated End of Session Comment Patient left reclined in the bed upon completion. All needs met. * Ashlee Almodovar RN - 01/19/2023 1:15 PM CDTSumjonathan: Initial Assessment Cm met with patient, his daughter (Sherri) and son (Amadeo) in pt's room. Annie is current with his PCP, Dr. Mendoza. He is and lives alone in a single story house with no stairs or ramp to enter/exit the home. 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 He currently does not receive any Homemaker or C services. Sherri and Amadeo report that he needs help with his ADLs but will not let anyone help him. He no longer drives and family takes him where he needs to go. He has Medicare A/B and [employer] for insurance. He has no trouble paying for or obtaining his medications from [facility] in [place], but daughter is unsure of how regularly he actually takes his me dications if at all. [facility] The only home DME he has is a cane and he does not use it hardly at all. CM discussed POC and d/c plan with Annie, Sherri and Amadeo. Care Team is recommending SNF and they agree. CM will send out referrals and begin working on SNF placement. Family will transport at time of discharge. 01/19/23 0657 Referral Data Source of Information Other Family Members Patient Information Primary Caregiver Self Current living Situation Alone Type of Residence Private residence Support System Immediate family Are you employed? 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 [employer]) Recent Hospitalization Recent Hospitalization within 30 days No Legal Information Guardianship Documentation Not applicable Power of Activated Sludge Operator Healthcare Status Patient Declines Baseline ADL's Functional Status Maximum assistance Active DME Cane Behavior Forgetful;Confused Communication Talks;Understands speaking;Understands Belarusian Psychosocial Need Indicator Mental health concerns No Diagnosis/prognosis resulting in poor adjustment or coping with illness No Diagnosis/prognosis with anticipated outcome of major lifestyle changes, including change in fpc living environment No Complex Family concerns No Abuse and/or neglect of elder, adult or child No Psychiatric and/or substance abuse issues affecting current hospitalization No Homelessness with lack of safe discharge environment No Need for guardianship petition No Anticipated DC Plan Patient expects to be discharged to: Prison * Giselle Ching RD - 01/19/2023 11:56 AM CDT CLINICAL DIETITIAN ASSESSMENT NUTRITION ASSESSMENT Past Medical History: Diagnosis Date Coronary artery disease Diabetes mellitus ([facility]/HCC) ([facility]/HCC) Disorder of prostate Hyperlipidemia Hypertension Pacemaker 09/10/2022 Initial History (01/19/2023): Registered Dietitian (RD) completing an initial assessment secondary to MST score of 2. Patient is a 77-year-old male admitted secondary to Dehydration [E86.0] Fall [W19.XXXA] Impaired mobility and ADLs [Z74.09, Z78.9]. HPI: Patient receiving fluid 2/2 dehydration. PT/OT to work with patient for deconditioning. Weight history (01/19/2023): Patient reports his weight went from 239 to 200 lbs over the last several months. Reviewed weight history and weight is down 16 lbs (7%) x 4 months (09/16/22: 109 kg). Patient reports not eating well and taste changes as reasons for his weight loss. Diet history (01/19/2023): Patient reports a good appetite at present. He denies nausea/vomiting. Hereports issues with constipation and diarrhea on and off. Patient has had ONS in the past and has not been fond of them. Food allergies/intolerances: NKFA per EHR Cultural/Restoration food preferences: None reported in EHR Cardiorespiratory: in room air Neuro: Alert/oriented per EHR Edema: +2 edema (RUE) noted per EHR GI: abdomen WDL with positive bowel sounds per labor relations director; no BM documented this admission Chewing/swallowing problems: None reported; poor dentition Skin: coccyx wound, right upper hip pressure sore, groin excoriation Nutrition-focused physical findings: Mild muscle loss noted in the following area(s): temporalis. Mild fat loss noted in the following area(s): buccal fat pads. Labs: Reviewed with the following abnormalities identified: K+ 3.4, glucose 163, BNP 2572 No results for input(s): GLUCOSEPOC in the last 168 hours. SODIUM S/P/B Date Value Ref Range Status 01/19/2023 139 136 - 145 MMOL/L Final 01/18/2023 139 136 - 145 MMOL/L Final POTASSIUM S/P/B Date Value Ref Range Status 01/19/2023 3.4 (L) 3.5 - 5.1 MMOL/L Final CHLORIDE S/P/B Date Value Ref Range Status 01/19/2023 103 98 - 107 MMOL/L Final CO2 Date Value Ref Range Status 01/19/2023 30.7 21.0 - 32.0 MMOL/L Final BUN Date Value Ref Range Status 01/19/2023 31 (H) 6 - 24 MG/DL Final CREATININE S/P/B Date Value Ref Range Status 01/19/2023 0.81 0.70 - 1.30 MG/DL Final GLUCOSE Date Value Ref Range Status 01/19/2023 163 (H) 70 - 99 MG/DL Final Comment: FASTING GLUCOSE 100 TO 125 MG/DL IS CONSISTENT WITH IMPAIRED FASTING GLUCOSE. FASTING GLUCOSE >125 MG/DL IS CONSISTENT WITH DIABETES. RANDOM GLUCOSE >200 MG/DL WITH HYPERGLYCEMIC SYMPTOMS IS CONSISTENT WITH DIABETES. PER ADA GUIDELINES CALCIUM S/P/B Date Value Ref Range Status 01/19/2023 7.8 (L) 8.4 - 10.5 MG/DL Final Meds: Reviewed. No nutrition-related concerns noted at this time. amLODIPine 5 mg Oral Daily apixaban 5 mg Oral BID atorvastatin 80 mg Oral Nightly at bedtime docusate sodium 100 mg Oral BID glipiZIDE 10 mg Oral BID AC lisinopril 40 mg Oral Daily magnesium oxide 400 mg Oral Daily metFORMIN 1,000 mg Oral BID vitamin B-12 1,000 mcg Oral Daily PRN: morphine, Zofran, Glycolax, Senokot Anthropometrics: Admission weight: 102 kg (Date: 01/17/23; Method: Bed) Last 5 Recorded Weights 01/17/23 1110 01/17/23 1625 01/18/23 0521 01/19/23 0530 Weight: 99.8 kg (220 lb) 102 kg (224 lb 14.4 oz) 102.2 kg (225 lb 3.2 oz) 103.1 kg (227 lb 6.4 oz) Weight status: Weight up 3 lbs (1%) x 2 days. Height: 182.9 cm ABW: 102 kg IBW: 77.6 kg (ABW is 131% of IBW) UBW: 108.6 kg (ABW is 94% of UBW) DW: 102 kg BMI: 30.84 kg/m?? (Obesity Class I) Estimated Nutrient Needs: Calories: 1961 kcal/day based on [place] Jeor x 1.1 Protein: 92 gm/day based on 0.9 g/kg Carbohydrate: 221 gm/day based on 45% of total kcal from carbohydrate Fluid: 1961 mL/day based on 1 mL/kcal estimated needs Current diet order: General Current diet appropriate? Yes; monitor for CHO controlled Current intake sufficient to meet nutritional needs? Meeting energy (kcal) needs but not protein; Based on review of PO intake per EHR and [employer], patient consumed 1633 kcal/day (83% of estimated needs) and 59 gm/day protein (64% of estimated needs) x 3 meals yesterday. Fluid intake appears adequate for hydration. Pain affecting PO intake? No Nutrition Education: Small/frequent meals reviewed with patient to help meet estimated nutrition needs NUTRITION DIAGNOSIS Unintended weight loss related to taste changes/decreased appetite as evidenced by weight loss of 7% x 4 months. Nutrition risk: Moderate NUTRITION INTERVENTION Nutrition prescription: General diet Plan: Continue with a general diet. Monitor for CHO controlled/low sodium. Monitor for an ONS. Encouraged small/frequent meals (snacks between meals) to meet estimated nutrition needs. Replace K+. Daily weights ordered; will monitor weight status. Discharge nutrition plan: Discharge needs assessed. Will provide/update discharge instructions as needed. MONITORING/EVALUATION 01/19/2023 Goals: 1. PO intake will meet at least 75% of estimated kcal/protein needs based on 3- day average intake per review of EHR and MyDining at follow up. 2. Weight stable within 2% of admission weight (102 kg) at follow up. GISELLE CHING RD, LDN * Mamta Bolanos RN - 01/19/2023 10:29 AM CDT Problem: Reduced risk for falls/injury Goal: Reduced Risk for Falls/Injury Outcome: Progressing Note: Fall precautions maintained Goal: Reduced Risk of Confusion (Acute vs Chronic) Outcome: Progressing Note: Alert and oriented but forgetful. Reoriented intermittently. Goal: Reduced Risk of Symptomatic Depression Outcome: Progressing Note: No s/sx Goal: Reduced Risk of Altered Elimination Outcome: Progressing Note: Assist with elimination as needed. Goal: Reduced Risk of Dizziness/Vertigo/Balance Outcome: Progressing Note: Denies vertigo Goal: Reduced Risk of Polypharmacy Outcome: Progressing Note: MD/SOIL CONSERVATION AIDE reviewed. Problem: Skin integrity, Impaired-wound Goal: Absence of new skin breakdown Outcome: Progressing Note: No new skin breakdown noted. Skin checks per shift. Goal: Evidence of wound healing Outcome: Progressing Note: Wound unchanged. Problem: Skin integrity, Impaired-pressure injury/ulcer Goal: Absence of new skin breakdown Outcome: Progressing Note: No new skin breakdown noted. Skin checks per shift. Goal: Evidence of pressure injury/ulcer healing Outcome: Progressing Note: Pressure injury unchanged. Problem: Moisture associated skin impairment Goal: Reduce moisture exposure Outcome: Progressing Note: Incontinent care provided as needed. Goal: Evidence of wound healing Outcome: Completed Note: Duplicate Goal: Evidence of pressure injury/ulcer healing Outcome: Completed Note: Duplicate Goal: Absence of new skin breakdown Outcome: Completed Note: Duplicate * Ashlee Almodovar RN - 01/19/2023 10:00 AM CDTSummary: Daily IDR note 01/19/23 1000 Interdisciplinary Group Conference Team Members Present Case/Care management;Nursing;PT/OT;Dietary;ADOLFO Care Team is recommending SNF; patient and family agree. CM has started working on placement. Family will transport at time of discharge. * Marianna Morelos RN - 01/18/2023 10:15 PM CDT Problem: Reduced risk for falls/injury Goal: Reduced Risk for Falls/Injury Outcome: Progressing Note: Education on fall prevention measures Goal: Reduced Risk of Confusion (Acute vs Chronic) Outcome: Progressing Goal: Reduced Risk of Symptomatic Depression Outcome: Progressing Goal: Reduced Risk of Altered Elimination Outcome: Progressing * Jennyfer Villafuerte RN - 01/18/2023 6:03 PM CDT Problem: Reduced risk for falls/injury Goal: Reduced Risk for Falls/Injury Outcome: Progressing Note: No falls this shift. Call light within reach, bed/chair alarm active all shift. Goal: Reduced Risk of Confusion (Acute vs Chronic) Outcome: Progressing Note: No confusion noted this shift. Goal: Reduced Risk of Symptomatic Depression Outcome: Progressing Note: No complaints from pt this shift. Goal: Reduced Risk of Altered Elimination Outcome: Progressing Note: Pt assisted with elimination, as needed. Goal: Reduced Risk of Dizziness/Vertigo/Balance Outcome: Progressing Note: No complaints from pt this shift. Goal: Reduced Risk of Polypharmacy Outcome: Progressing Note: MD/SOIL CONSERVATION AIDE aware of current medications ordered. * Latonya Harvey RN - 01/17/2023 11:32 PM CDT Call light at pt's reach, bed alarm on, communicative, no dizziness, IV infusing, monitor I & O, pain controlled with IVP analgesic. Problem: Reduced risk for falls/injury Goal: Reduced Risk for Falls/Injury Outcome: Progressing Goal: Reduced Risk of Symptomatic Depression Outcome: Progressing Goal: Reduced Risk of Dizziness/Vertigo/Balance Outcome: Progressing Goal: Reduced Risk of Polypharmacy Outcome: Progressing documented in this encounter H&P Notes * Joi Elizabeth NP - 01/18/2023 10:04 AM CDT Admission History and Physical History Primary Care Provider: ABDON MENDOZA MD Admitting Provider: Allen Chanel MD Attending Provider: Abdon Mendoza MD Admission date: 01/17/2023 11:04 AM Annie Crocker is a 77-year-old male with a history of CAD, DM, HLD, HTN who presented to the ERwith complaints of right shoulder and right foot pain after suffering multiple falls. Patient was found on the floor by family prior to ER admission believes that he had been on the floor for approximately 2 hours. Patient endorses falling in the shower on Thursday as well. Family reports that he has not been taking his medications or caring for himself appropriately over the past week. They also report a general increase in weakness over the last 6 months. Patient had confusion in ER. ED work-up includes CMP showing potassium 3.2 BUN of 27. CBC shows WBC of 12.72. BNP elevated at 2572. Troponin of 64. CT of the head shows no acute intercranial process, small vessel disease and minimal bilateral maxillary sinusitis. X-ray of the right shoulder shows no acute abnormality and arthritic changes x-ray of the foot shows no acute osseous abnormalities, potential gout. Patient required 2 L bolus of fluids to obtain UA. Patient was admitted for dehydration, fall and impaired mobility. Patient assessed today sitting upright in bed. Complains of lower extremity weakness, right shoulder and leg pain. Patient states that he is unable to raise right arm however when repositioned in bedpatient is able to raise right arm approximately 10 inches off the bed. Patient endorses chronic cough. Patient denies fever, chills or other complaints at this time. Past Medical History: Diagnosis Date Coronary artery disease Diabetes mellitus ([facility]/HCC) ([facility]/HCC) Disorder of prostate Hyperlipidemia Hypertension Pacemaker 09/10/2022 Past Surgical History: Procedure Laterality Date CORONARY ART DIL,ONE VESSEL 2010 INSER COBIAN PACER XVENOUS ATRIAL 05/04/2013 PACEMAKER Social History Tobacco Use Smoking status: Former Packs/day: 1.00 Types: Cigarettes, Pipe Start date: 02/14/1966 Quit date: 10/07/1995 Years since quittin.3 Smokeless tobacco: Never Substance Use Topics Alcohol use: No Drug use: No Family History Problem Relation Name Age of Onset Heart Attack Mother Prior to Admission medications Medication Sig Start Date End Date Taking? Authorizing Provider amLODIPine 2.5 MG tablet Take 1 tablet (2.5 mg total) by mouth daily. 12/30/19 Yes Albin Prevea Abstract apixaban (ELIQUIS) 5 MG tablet Take 1 tablet (5 mg total) by mouth 2 (two) times daily. 09/19/22 Tino Palomo MD ATORVASTATIN 80 MG tablet TAKE 1 TABLET BY MOUTH DAILY 05/18/19 Yes Vik Colvin MD CARVEDILOL 12.5 MG tablet TAKE 1 TABLET BY MOUTH TWICE DAILY 05/18/19 Yes Vik Colvin MD glipiZIDE 10 MG tablet Take 1 tablet (10 mg total) by mouth 2 (two) times daily. 09/13/14 Yes Albin Prevea Abstract hydrochlorothiazide 25 MG tablet Take 1 tablet (25 mg total) by mouth daily. 03/25/17 Yes Clifford Serna MD lisinopril 40 MG tablet Take 1 tablet (40 mg total) by mouth daily. 04/05/19 Yes Vik Colvin MD magnesium oxide 400 (241.3 Mg) MG tablet Take 1 tablet (400 mg total) by mouth daily. Yes Doc Prevea Abstract metFORMIN 1000 MG tablet Take 1 tablet (1,000 mg total) by mouth 2 (two) times daily. 09/13/14 Yes Doc Pre[facility]a Abstract nitroGLYCERIN 0.4 MG SL tablet Take 1 tablet (0.4 mg total) by mouth every 5 (five) minutes as needed. 04/30/15 Yes Doc [facility] Abstract polyethylene glycol powder 06/11/18 Yes Doc [facility] Abstract vitamin B-12 1000 MCG tablet Take 1 tablet (1,000 mcg total) by mouth daily. Yes Doc [facility] Abstract morphine, ondansetron No Known Allergies Review of Systems Constitutional: Positive for malaise/fatigue. Respiratory: Positive for cough. Musculoskeletal: Positive for falls and joint pain. Neurological: Positive for weakness. 10 point ROS negative except otherwise specified in HPI Physical Exam Filed Vitals: 01/18/23 0107 01/18/23 0137 01/18/23 0521 01/18/23 0544 BP: 115/60 114/66 Pulse: 61 60 Resp: 18 18 Temp: 98.8 ??F (37.1 ??C) 99 ??F (37.2 ??C) TempSrc: Tympanic Tympanic SpO2: 93% 91% Weight: 102.2 kg (225 lb 3.2 oz) Height: Physical Exam Vitals and nursing note reviewed. Constitutional: Appearance: Normal appearance. HENT: Head: Normocephalic. Nose: Nose normal. Mouth/Throat: Mouth: Mucous membranes are moist. Eyes: Pupils: Pupils are equal, round, and reactive to light. Cardiovascular: Rate and Rhythm: Normal rate and regular rhythm. Pulses: Normal pulses. Heart sounds: Normal heart sounds. Pulmonary: Effort: Pulmonary effort is normal. Breath sounds: Normal breath sounds. Abdominal: General: Abdomen is protuberant. Bowel sounds are normal. Palpations: Abdomen is soft. Musculoskeletal: Right shoulder: Decreased range of motion. Decreased strength. Right elbow: Decreased range of motion. Right hand: Decreased strength. Cervical back: Normal range of motion and neck supple. Right hip: Decreased range of motion. Right knee: Decreased range of motion. Skin: General: Skin is warm and dry. Capillary Refill: Capillary refill takes less than 2 seconds. Neurological: General: No focal deficit present. Mental Status: He is alert. Psychiatric: Mood and Affect: Mood normal. Behavior: Behavior is agitated (at times). Recent Labs Lab 01/17/23 1145 01/18/23 0906 WBC 12.72* 12.92* RBC 4.63 4.11* HGB 12.6* 11.3* HCT 38.6 35.1* MCV 83.4 85.4 MCH 27.2 27.5 MCHC 32.6* 32.2* PLT 170 142* RDW 15.9* 16.3* MPV 11.2* 11.2* PERNEU 85.9 84.7 PERLYM 8.2 8.8 PERMON 5.2 5.5 PEREOS 0.1 0.4 PERBASO 0.3 0.2 NEUC 10.93* 10.94* LYMC 1.04 1.14 MONOC 0.66 0.71 EOSC 0.01 0.05 BASOC 0.04 0.03 Recent Labs Lab 01/17/23 1145 01/18/23 0906 NA 142 139 K 3.2* 3.6 CL 103 105 CO2 28.3 25.7 AGAP 10.7 8.3 BUN 27* 31* CR 0.89 0.88 GLU 156* 270* CA 9.0 7.9* TP 6.6 5.8* ALB 3.2* 2.6* TBIL 2.3* 1.5* ALKP 87 76 AST 76* 52* ALT 39 34 No results for input(s): APTT, INR in the last 168 hours. Invalid input(s): PT Recent Labs Lab 01/17/23 1145 TROP 64 Recent Labs Lab 01/18/23 0906 NA 139 K 3.6 CL 105 CO2 25.7 BUN 31* CR 0.88 CA 7.9* GLU 270* AGAP 8.3 TP 5.8* ALB 2.6* ALT 34 WBC 12.92* HGB 11.3* PLT 142* No results found for this or any previous visit. No results found for this visit on 01/17/23 (from the past 840 hour(s)). No results found for this visit on 01/17/23 (from the past 840 hour(s)). No results found. Assessment Principal Problem: Dehydration SNOMED CT(R): DEHYDRATION Plan #dehydration Sodium chloride 2000 mL given IV bolus in ED Continue to monitor #Right shoulder pain #deconditioning Morphine 2 mg every 3 hours as needed for pain severe rating 8-10 PT/OT eval and treat Thursday Up with assist Activity as tolerated #Leukocytosis WBC 12.72-> 12.92 Chest x-ray pending #HTN Amlodipine 5 mg daily Coreg 12.5 mg oral 2 times daily Hydrochlorothiazide 25 mg daily Lisinopril 40 mg oral daily Vital signs every 4 hours #dm Glucotrol 10 mg oral 2 times daily Glucophage 1000 mg oral 2 times daily Bedside blood glucose Carb controlled diet Plan: Pain control, PT/OT eval and treat, monitor labs Due to severity of illness, expect patient to be here > 2 midnights stay. JOI ELIZABETH NP Cosigned by Allen Chanel MD at 01/20/2023 1:27 PM CDT Associated attestation - Allen Chanel MD - 01/20/2023 1:27 PM CDT I, ALLEN CHANEL MD, participated in the care of this patient today and discussed the plan of care with , ADOLFO, who shared in this visit. I have reviewed the ADOLFO's documentation and agree with the findings except as I have documented. I personally spent 15 minutes, caring for this patient. ALLEN CHANEL MD documented in this encounter Nursing Notes * Aliza Posada RN - 01/21/2023 2:43 PM CDT Faxed paperwork to [facility] [phone] Called report to Evelynrain @ [facility] [phone] * Jennyfer Villafuerte RN - 01/18/2023 6:45 PM CDT Pt and family members would like the pt to go to a SNF around [facility] or [facility], if SNF is needed. * Joi Allison RN - 01/17/2023 6:12 PM CDT Admission completed with help from DaughterSherri. Attempted to call Pharmacy to fax med list. Never received med list via fax. Attempted to call again and pharmacy is closed. Pt and daughter unable to verify at home med list. RN to follow up tomorrow, 01/18/2023 During admission pt asked why there are footprints on ceiling. RN reassured pt that there are no footprints on ceiling. Later CREAM BEATER reports that pt said there are puppies in his room. Pt reassured and remains calm and cooperative. documented in this encounter ED Notes * Abdon Yarbrough, DO - 01/17/2023 11:30 AM CDT Chief Complaint Chief Complaint Patient presents with Fall Medical Problem History of Present Illness 77-year-old white male presents with a chief complaint of having shoulder pain and foot pain. Patient was found on the floor by his family patient is converting shoulder pain. Movement makes it worseand laying still makes it feel better. Patient has not been taking his medications. Medical History ALLERGIES: Review of patient's allergies indicates: No Known Allergies MEDICATIONS: Prior to Admission medications Medication Sig Start Date End Date Taking? Authorizing Provider amLODIPine 2.5 MG tablet Take 1 tablet (2.5 mg total) by mouth daily. 12/30/19 Doc Prevea Abstract apixaban (ELIQUIS) 5 MG tablet Take 1 tablet (5 mg total) by mouth 2 (two) times daily. 09/19/22 Madan Palomo MD aspirin EC 81 MG tablet Take 1 tablet (81 mg total) by mouth daily. 09/13/14 Doc Prevea Abstract ATORVASTATIN 80 MG tablet TAKE 1 TABLET BY MOUTH DAILY 05/18/19 Vik Colvin MD CARVEDILOL 12.5 MG tablet TAKE 1 TABLET BY MOUTH TWICE DAILY 05/18/19 Vik Colvin MD glipiZIDE 10 MG tablet Take 1 tablet (10 mg total) by mouth 2 (two) times daily. 09/13/14 Doc PreveaAbstract hydrochlorothiazide 25 MG tablet Take 1 tablet (25 mg total) by mouth daily. 03/25/17 Clifford Boss MD lisinopril 40 MG tablet Take 1 tablet (40 mg total) by mouth daily. 04/05/19 Vik Colvin MD magnesium oxide 400 (241.3 Mg) MG tablet Take 1 tablet (400 mg total) by mouth daily. Doc Pre[facility] Abstract metFORMIN 1000 MG tablet Take 1 tablet (1,000 mg total) by mouth 2 (two) times daily. 09/13/14 Doc Pre[facility] Abstract nitroGLYCERIN 0.4 MG SL tablet Take 1 tablet (0.4 mg total) by mouth every 5 (five) minutes as needed. 04/30/15 Doc Pre[facility] Abstract polyethylene glycol powder 06/11/18 Doc Pre[facility] Abstract vitamin B-12 1000 MCG tablet Take 1 tablet (1,000 mcg total) by mouth daily. Doc Prevea Abstract PAST MEDICAL HISTORY: Past Medical History: Diagnosis Date Coronary artery disease Diabetes mellitus ([facility]/HCC) ([facility]/HCC) Disorder of prostate Hyperlipidemia Hypertension Pacemaker 09/10/2022 PAST SURGICAL HISTORY: Past Surgical History: Procedure Laterality Date CORONARY ART DIL,ONE VESSEL 2010 INSER COBIAN PACER XVENOUS ATRIAL 05/04/2013 PACEMAKER FAMILY HISTORY: Family History Problem Relation Name Age of Onset Heart Attack Mother SOCIAL HISTORY: Social History Tobacco Use Smoking status: Former Packs/day: 1.00 Types: Cigarettes, Pipe Start date: 02/14/1966 Quit date: 10/07/1995 Years since quittin.2 Smokeless tobacco: Never Substance Use Topics Alcohol use: No Drug use: No Review of Systems Review of Systems Constitutional: Negative. HENT: Negative. Eyes: Negative. Respiratory: Negative. Cardiovascular: Negative. Gastrointestinal: Negative. Endocrine: Negative. Genitourinary: Negative. Musculoskeletal: Positive for arthralgias. Skin: Negative. Allergic/Immunologic: Negative. Neurological: Negative. Hematological: Negative. Psychiatric/Behavioral: Negative. Physical Exam Filed Vitals: 01/17/23 1230 01/17/23 1330 01/17/23 1400 01/17/23 1430 BP: 92/60 102/57 103/52 112/61 Pulse: 60 60 65 76 Resp: 17 13 14 14 Temp: TempSrc: SpO2: 96% 93% 92% 93% Weight: Height: Physical Exam Vitals and nursing note reviewed. Constitutional: Appearance: Normal appearance. HENT: Head: Normocephalic. Mouth/Throat: Mouth: Mucous membranes are moist. Eyes: Extraocular Movements: Extraocular movements intact. Pupils: Pupils are equal, round, and reactive to light. Cardiovascular: Rate and Rhythm: Normal rate and regular rhythm. Pulses: Normal pulses. Heart sounds: Normal heart sounds. Pulmonary: Effort: Pulmonary effort is normal. Breath sounds: Normal breath sounds. Abdominal: General: Abdomen is flat. Palpations: Abdomen is soft. Musculoskeletal: General: Swelling, tenderness, deformity and signs of injury present. Normal range of motion. Cervical back: Normal range of motion. Skin: General: Skin is warm. Neurological: General: No focal deficit present. Mental Status: He is alert and oriented to person, place, and time. Diagnostic Studies / Procedures ELECTROCARDIOGRAMS: No results found for this visit on 01/17/23. LABORATORY STUDIES: Results for orders placed or performed during the hospital encounter of 01/17/23 COMPREHENSIVE METABOLIC PANEL Result Value Ref Range SODIUM S/P/B 142 136 - 145 MMOL/L POTASSIUM S/P/B 3.2 (L) 3.5 - 5.1 MMOL/L CHLORIDE S/P/B 103 98 - 107 MMOL/L CO2 28.3 21.0 - 32.0 MMOL/L GLUCOSE 156 (H) 70 - 99 MG/DL BUN 27 (H) 6 - 24 MG/DL CREATININE S/P/B 0.89 0.70 - 1.30 MG/DL CALCIUM S/P/B 9.0 8.4 - 10.5 MG/DL BILIRUBIN TOTAL S/P/B 2.3 (H) 0.2 - 1.0 MG/DL ALKALINE PHOSPHATASE S/P/B 87 45 - 115 U/L AST 76 (H) 15 - 37 U/L ALT 39 16 - 63 U/L TOTAL PROTEIN S/P/B 6.6 6.4 - 8.2 G/DL ALBUMIN S/P/B 3.2 (L) 3.4 - 5.0 G/DL ANION GAP 10.7 5.0 - 15.0 MMOL/L OSMOLALITY (CALC) 302 MOSM/KG GFR ESTIMATE 88 (L) >89 ML/MIN/1.73 M2 GFR NOTES GFR REFERENCES: CBC W/DIFF AUTOMATED Result Value Ref Range WBC 12.72 (H) 4.00 - 10.80 x10'3/uL RBC 4.63 4.50 - 6.10 x10'6/uL HGB 12.6 (L) 13.0 - 18.0 G/DL HCT 38.6 37.0 - 52.0 % MCV 83.4 78.0 - 100.0 FL MCH 27.2 27.0 - 31.0 PG MCHC 32.6 (L) 33.0 - 36.0 G/DL RDW 15.9 (H) 11.5 - 14.5 % PLT 170 150 - 350 x10'3/uL MPV 11.2 (H) 7.4 - 10.4 FL CBC COMMENT NORMAL REFERENCE RANGE NOT ESTABLISHED FOR THE PROPORTIONAL LEUKOCYTE DIFFERENTIAL. NEUTROPHILS 85.9 % LYMPHOCYTES 8.2 % MONOCYTES 5.2 % EOSINOPHILS 0.1 % BASOPHILS 0.3 % IMMATURE GRANS 0.3 % NRBC 0.0 % ABS. NEUTROPHILS 10.93 (H) 1.60 - 8.30 x10'3/uL ABS. LYMPHOCYTES 1.04 0.80 - 4.70 x10'3/uL ABS. MONOCYTES 0.66 0.00 - 1.50 x10'3/uL ABS. EOSINOPHILS 0.01 0.00 - 0.40 x10'3/uL ABS. BASOPHILS 0.04 0.00 - 0.20 x10'3/uL ABS. IMMATURE GRANULOCYTES 0.04 (H) 0.00 - 0.03 x10'3/uL ABS. NUCLEATED RBC'S 0.00 0.00 x10'3/uL URINALYSIS Result Value Ref Range COLOR (U) DARK YELLOW TRANSPARENCY CLOUDY SPECIFIC GRAVITY (U) 1.030 (H) 1.000 - 1.025 U PH 5.0 5.0 - 8.0 LEUKOCYTES (U) NEGATIVE NEGATIVE NITRITES NEGATIVE NEGATIVE PROTEIN RANDOM (U) 2+ (A) NEGATIVE GLUCOSE (U) NEGATIVE NEGATIVE KETONES (U) 1+ (A) NEGATIVE UROBILINOGEN 0.2 <1.0 EU/DL BLOOD (U) 2+ (A) NEGATIVE WBC/HPF 0-5 0 - 5 /HPF EPI/LPF OCCASIONAL /LPF BACTERIA (U) 1+ /HPF MUCUS PRESENT COMMENT (U) OCCASIONAL RENAL EPITHELIAL CELLS PRESENT. BILIRUBIN CONF ICTO (U) NEGATIVE NEGATIVE PRO-BRAIN NATRIURETIC PEPTIDE Result Value Ref Range PRO-B TYPE NATRIURETIC PEPTIDE 2,572 (H) <450 PG/ML TROPONIN, QUANT Result Value Ref Range TROPONIN I HIGH SENSITIVITY 64 0 - 76 ng/L IMAGING STUDIES CT HEAD WO CON Final Result by User, [id number] (01/17 1340) Examination: CT of the head without contrast. Exam time: 1330 hours. Clinical history: Trauma. Unwitnessed ground-level fall. Comparison: None Technique: Noncontrast axial scans from skull base to vertex. Sagittal and coronal reconstructions were performed from the data set. A dose lowering technique was used for this procedure, which may include, but is not limited to, dose reduction techniques, automated exposure control, the use of iterative reconstruction and ALARA/Image Gently techniques. Findings: The ventricles are normal in size and configuration. No shift of midline or mass effect is noted. There is prominence of the fissures and sulci, compatible with age. There is periventricular decreased attenuation, compatible with small vessel disease. Intracranially, no other areas of abnormal x-ray attenuation are identified. In particular, there is no mass, hemorrhage or sign of acute stroke. No extracerebral fluid collections. The skull appears intact. There is minor mucosal thickening in the maxillary sinuses. The mastoid air cells and paranasal sinuses are otherwise clear. IMPRESSION: 1. No acute intracranial process identified. 2. Small vessel disease. 3. Minimal bilateral maxillary sinusitis. Referred By: Interpreted By: Morgan Thornton MD, 01/17/2023 1:33 PM XR SHOULDER RT MIN 2V Final Result by User, [id number] (01/17 1212) Examination: XR SHOULDER RT MIN 2V Exam time: 01/17/2023 12:05 PM Clinical history: Pain. Bruising. Comparison: No prior exam Technique: Internal rotation, external rotation, scapular Y views Findings: Glenohumeral and acromioclavicular joint relationships appear unremarkable. Moderate arthritic change acromioclavicular joint. Hypertrophic spurring inferior medial humeral head consistent with glenohumeral joint arthritic change. No evidence of fracture or acute osseous abnormalities. Small calcifications project about the lateral aspect right humeral head and appear chronic. IMPRESSION: 1. No acute abnormality. 2. Arthritic changes. Ordered By: ABDON YARBROUGH Interpreted By: Percy Bianchi MD, 01/17/2023 12:10 PM XR FOOT RT 3V Final Result by User, [id number] (01/17 1214) EXAMINATION: XR FOOT RT 3V HISTORY: Right foot pain and bruising. COMPARISON: None. TECHNIQUE: Multiple views of the right foot. FINDINGS: No evidence of acute fracture or dislocation. No evidence of osteolysis. Alignment is maintained. There is a bipartite medial sesamoid bone. There are linear areas of soft tissue calcification adjacent to the distal first metatarsal. Gout is possible and is not excluded. There is a plantar calcaneal spur. 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 IMPRESSION: 1. No acute osseous abnormalities are identified. 2. Potential gout. Clinical correlation recommended. Referred By: Interpreted By: Bartolome Dillard DO, 01/17/2023 12:10 PM ED Course / Medical Decision Making Medical Decision Making Clinical Impression Dehydration (Primary) Fall Impaired mobility and ADLs Disposition: Admit Abdon Yarbrough DO 01/17/23 1511 * Gladys Manuel RN - 01/17/2023 11:06 AM CDT Pt arrives via ems, pt was found on the floor x 2 hours. Pt has not been taking meds or taking careof himself well past week. Pt has significant bruising to// right shoulder, and right foot pain. Pt rates pain 8/10.pt has been having gradual increase weakness x 6 months documented in this encounter Plan of Treatment Upcoming Encounters Date Type Department Care Team (Latest Contact Info) Description 06/09/2024 2:20 PM MANAGER INTEGRATED Telemedicine [facility] [address] [place] [address] Earnest Drake MD [address] [place] [address] 06/21/2024 1:30 AM MANAGER INTEGRATED Allied Health/Nurse Visit [facility] [address] [place] [address] Madan Palomo MD [address] [place] [address] 03/01/2025 11:00 AM CDT Allied Health/Nurse Visit [facility] [place] [phone] Norma Rowland PA-C [address] [place] [address] 03/01/2025 11:00 AM CDT Office Visit [facility] [place] [address] Noram Rowland PA-C [address] [place] [address] Scheduled Referrals Name Type Priority Associated Diagnoses Orde r Schedule Abbreviated Amb Ref to Home Health Referral Routine Dehydration Fall Impaired mobility and ADLs Ordered: 01/21/2023 documented as of this encounter Procedures Procedure Name Priority Date/Time Associated Diagnosis Comments COMPREHENSIVE METABOLIC PANEL Routine 01/21/2023 5:05 AM CDT CBC W/DIFF AUTOMATED Routine 01/21/2023 5:05 AM CDT PRO-BRAIN NATRIURETIC PEPTIDE Routine 01/20/2023 9:55 AM CDT COMPREHENSIVE METABOLIC PANEL Routine 01/20/2023 5:09 AM CDT CBC W/DIFF AUTOMATED Routine 01/20/2023 5:[address] SHOULDER RT WO CON Today 01/19/2023 4:51 PM CDT COMPREHENSIVE METABOLIC PANEL Routine 01/19/2023 4:31 AM CDT CBC W/DIFF AUTOMATED Routine 01/19/2023 4:31 AM CDT XR CHEST PA+LAT Today 01/18/2023 3:55 PM CDT COMPREHENSIVE METABOLIC PANEL Routine 01/18/2023 9:06 AM CDT CBC W/DIFF AUTOMATED Routine 01/18/2023 9:06 AM CDT HC URINALYSIS AUTO W/MICRO STAT 01/17/2023 1:[address] HEAD WO CON STAT 01/17/2023 1:16 PM CDT XR SHOULDER RT MIN 2V STAT 01/17/2023 12:05 PM CDT XR FOOT RT 3V STAT 01/17/2023 12:05 PM CDT PRO-BRAIN NATRIURETIC PEPTIDE STAT 01/17/2023 11:45 AM CDT COMPREHENSIVE METABOLIC PANEL STAT 01/17/2023 11:45 AM CDT CBC W/DIFF AUTOMATED STAT 01/17/2023 11:45 AM CDT TROPONIN, QUANT STAT 01/17/2023 11:45 AM CDT documented in this encounter Results * (ABNORMAL) COMPREHENSIVE METABOLIC PANEL (01/21/2023 5:05 AM CDT) SODIUM S/P/B 140 136 - 145 MMOL/L 01/21/2023 5:41 AM CDT [facility] POTASSIUM S/P/B 4.0 3.5 - 5.1 MMOL/L 01/21/2023 5:41 AM CDT [facility] CHLORIDE S/P/B 106 98 - 107 MMOL/L 01/21/2023 5:41 AM CDT [facility] CO2 27.2 21.0 - 32.0 MMOL/L 01/21/2023 5:41 AM CDT [facility] GLUCOSE 130(H) 70 - 99 MG/DL 01/21/2023 5:41 AM CDT [facility] Comment: FASTING GLUCOSE 100 TO 125 MG/DL IS CONSISTENT WITH IMPAIRED FASTING GLUCOSE. FASTING GLUCOSE >125 MG/DL IS CONSISTENT WITH DIABETES. RANDOM GLUCOSE >200 MG/DL WITH HYPERGLYCEMIC SYMPTOMS IS CONSISTENT WITH DIABETES. PER ADA GUIDELINES BUN 23 6 - 24 MG/DL 01/21/2023 5:41 AM [facility] CREATININE S/P/B 0.62(L) 0.70 - 1.30 MG/DL 01/21/2023 5:41 AM [facility] CALCIUM S/P/B 8.0(L) 8.4 - 10.5 MG/DL 01/21/2023 5:41 AM [facility] BILIRUBIN TOTAL S/P/B 0.9 0.2 - 1.0 MG/DL 01/21/2023 5:41 AM [facility] Comment: THIS ASSAY IS NOT RECOMMENDED FOR PATIENTS UNDERGOING TREATMENT WITH ELTROMBOPAG DUE TO THE POTENTIAL FOR FALSELY ELEVATED RESULTS. ALKALINE PHOSPHATASE S/P/B 80 45 - 115 U/L 01/21/2023 5:41 AM [facility] AST 40(H) 15 - 37 U/L 01/21/2023 5:41 AM [facility] ALT 41 16 - 63 U/L 01/21/2023 5:41 AM [facility] TOTAL PROTEIN S/P/B 5.4(L) 6.4 - 8.2 G/DL 01/21/2023 5:41 AM [facility] ALBUMIN S/P/B 2.0(L) 3.4 - 5.0 G/DL 01/21/2023 5:41 AM [facility] ANION GAP 6.8 5.0 - 15.0 MMOL/L 01/21/2023 5:41 AM [facility] OSMOLALITY (CALC) 295 MOSM/KG 023 5:41 AM [facility] Comment:REFERENCE RANGE NOT ESTABLISHED GFR ESTIMATE >90 >89 ML/MIN/1. 73 M2 01/21/2023 5:41 AM [facility] GFR NOTES GFR REFERENCE S: 01/21/2023 5:41 AM [facility] Comment: THE ESTIMATED GFR IS [...] ml/min/1.73 m2 G5,KIDNEY FAILURE: <15 ml/min/1.73 m2 01/21/2023 5:05 AM CDT us Nanda Bedoya NP LABORATORY Final Result [facility] [address] [place] [address], * (ABNORMAL) CBC W/DIFF AUTOMATED (01/21/2023 5:05 AM CDT) WBC 8.72 4.00 - 10.80 x10'3/uL 01/21/2023 5:19 AM CDT [facility] RBC 3.81(L) 4.50 - 6.10 x10'6/uL 01/21/2023 5:19 AM CDT [facility] HGB 10.4(L) 13.0 - 18.0 G/DL 01/21/2023 5:19 AM CDT [facility] HCT 32.0(L) 37.0 - 52.0 % 01/21/2023 5:19 AM CDT [facility] MCV 84.0 78.0 - 100.0 FL 01/21/2023 5:19 AM CDT [facility] MCH 27.3 27.0 - 31.0 PG 01/21/2023 5:19 AM CDT [facility] MCHC 32.5(L) 33.0 - 36.0 G/DL 01/21/2023 5:19 AM CDT [facility] RDW 16.6(H) 11.5 - 14.5 % 01/21/2023 5:19 AM CDT [facility] PLT 181 150 - 350 x10'3/uL 01/21/2023 5:19 AM CDT [facility] MPV 11.0(H) 7.4 - 10.4 FL 01/21/2023 5:19 AM CDT [facility] CBC COMMENT NORMAL REFERENCE RANGE NOT ESTABLISHED FOR THE PROPORTIONAL LEUKOCYTE DIFFERENTIAL. 01/21/2023 5:19 AM CDT [facility] NEUTROPHILS % 73.2 % 01/21/2023 5:19 AM CDT [facility] LYMPHOCYTES % 15.7 % 01/21/2023 5:19 AM CDT [facility] MONOCYTES % 7.7 % 01/21/2023 5:19 AM CDT [facility] EOSINOPHILS % 3.0 % 01/21/2023 5:19 AM CDT [facility] BASOPHILS % 0.2 % 01/21/2023 5:19 AM CDT [facility] IMMATURE GRANS % 0.2 % 01/22/20 5:19 AM CDT [facility] NRBC 0.0 % 01/21/2023 5:19 AM CDT [facility] ABS. NEUTROPHILS 6.38 1.60 - 8.30 x10'3/uL 01/21/2023 5:19 AM CDT [facility] ABS. LYMPHOCYTES 1.37 0.80 - 4.70 x10'3/uL 01/21/2023 5:19 AM CDT [facility] ABS. MONOCYTES 0.67 0.00 - 1.50 x10'3/uL 01/21/2023 5:19 AM CDT [facility] ABS. EOSINOPHILS 0.26 0.00 - 0.40 x10'3/uL 01/21/2023 5:19 AM CDT [facility] ABS. BASOPHILS 0.02 0.00 - 0.20 x10'3/uL 01/21/2023 5:19 AM CDT [facility] ABS. IMMATURE GRANULOCYTES 0.02 0.00 - 0.03 x10'3/uL 01/21/2023 5:19 AM CDT [facility] ABS. NUCLEATED RBC'S 0.00 0.00 x10'3/uL 01/21/2023 5:19 AM CDT [facility] 01/21/2023 5:05 AM CDT us Nanda Bedoya [employer] LABORATORY Final Result Performing Organization Address [facility] Co de Phone Number [facility] [address] [place] [address], * (ABNORMAL) PRO-BRAIN NATRIURETIC PEPTIDE (01/20/2023 9:55 AM CDT) PRO-B TYPE NATRIURETIC PEPTIDE 2,770(H) <450 PG/ML 01/20/2023 10:50 AM CDT [facility] Comment: CUT POINTS ESTABLISHED BY INTERNATIONAL [...] OF 89% AND 72% FOR ACUTE CHF. 01/20/2023 9:55 AM CDT us Nanda Bedoya [employer] LABORATORY Final Result Performing Organization Address [facility] de Phone Number [facility] [address] [place] [address], [place] [phone] * (ABNORMAL) COMPREHENSIVE METABOLIC PANEL (01/20/2023 5:09 AM CDT) SODIUM S/P/B 137 136 - 145 MMOL/L 01/20/2023 5:40 AM CDT [facility] POTASSIUM S/P/B 4.0 3.5 - 5.1 MMOL/L 01/20/2023 5:40 AM CDT [facility] Comment:SLIGHT HEMOLYSIS, RE SULT MAY BE AFFECTED. CHLORIDE S/P/B 105 98 - 107 MMOL/L 01/20/2023 5:40 AM T [facility] CO2 24.9 21.0 - 32.0 MMOL/L 01/20/2023 5:40 AM T [facility] GLUCOSE 130(H) 70 - 99 MG/DL 01/20/2023 5:40 AM T [facility] Comment: FASTING GLUCOSE 100 TO 125 MG/DL IS CONSISTENT WITH IMPAIRED FASTING GLUCOSE. FASTING GLUCOSE >125 MG/DL IS CONSISTENT WITH DIABETES. RANDOM GLUCOSE >200 MG/DL WITH HYPERGLYCEMIC SYMPTOMS IS CONSISTENT WITH DIABETES. PER ADA GUIDELINES BUN 25(H) 6 - 24 MG/DL 01/20/2023 5:40 AM T [facility] CREATININE S/P/B 0.70 0.70 - 1.30 MG/DL 01/20/2023 5:40 AM T [facility] CALCIUM S/P/B 7.9(L) 8.4 - 10.5 MG/DL 01/20/2023 5:40 AM T [facility] BILIRUBIN TOTAL S/P/B 1.2(H) 0.2 - 1.0 MG/DL 01/20/2023 5:40 AM T [facility] Comment: THIS ASSAY IS NOT RECOMMENDED FOR PATIENTS UNDERGOING TREATMENT WITH ELTROMBOPAG DUE TO THE POTENTIAL FOR FALSELY ELEVATED RESULTS. ALKALINE PHOSPHATASE S/P/B 78 45 - 115 U/L 01/20/2023 5:40 AM T [facility] AST 50(H) 15 - 37 U/L 01/20/2023 5:40 AM T [facility] ALT 38 16 - 63 U/L 01/20/2023 5:40 AM T [facility] TOTAL PROTEIN S/P/B 5.6(L) 6.4 - 8.2 G/DL 01/20/2023 5:40 AM T [facility] ALBUMIN S/P/B 2.1(L) 3.4 - 5.0 G/DL 01/20/2023 5:40 AM T [facility] ANION GAP 7.1 5.0 - 15.0 MMOL/L 01/20/2023 5:40 AM CDT [facility] OSMOLALITY (CALC) 290 MOSM/KG 023 5:40 AM CDT [facility] Comment:REFERENCE RANGE NOT ESTABLISHED GFR ESTIMATE >90 >89 ML/MIN/1. 73 M2 01/20/2023 5:40 AM CDT [facility] GFR NOTES GFR REFERENCE S: 01/20/2023 5:40 AM CDT [facility] Comment: THE ESTIMATED GFR [...] ml/min/1.73 m2 G5,KIDNEY FAILURE: <15 ml/min/1.73 m2 01/20/2023 5:09 AM CDT Joi Elizabeth NP LABORATORY Final Result [facility] [address] [place] [address], * (ABNORMAL) CBC W/DIFF AUTOMATED (01/20/2023 5:09 AM CDT) WBC 10.39 4.00 - 10.80 x10'3/uL 01/20/2023 5:40 AM CDT [facility] RBC 4.03(L) 4.50 - 6.10 x10'6/uL 01/20/2023 5:40 AM CDT [facility] HGB 11.1(L) 13.0 - 18.0 G/DL 01/20/2023 5:40 AM CDT [facility] HCT 32.7(L) 37.0 - 52.0 % 01/20/2023 5:40 AM CDT [facility] MCV 81.1 78.0 - 100.0 FL 01/20/2023 5:40 AM CDT [facility] MCH 27.5 27.0 - 31.0 PG 01/20/2023 5:40 AM CDT [facility] MCHC 33.9 33.0 - 36.0 G/DL 01/20/2023 5:40 AM CDT [facility] RDW 16.4(H) 11.5 - 14.5 % 01/20/2023 5:40 AM CDT [facility] PLT 143(L) 150 - 350 x10'3/uL 01/20/2023 5:40 AM CDT [facility] MPV 11.9(H) 7.4 - 10.4 FL 01/20/2023 5:40 AM CDT [facility] CBC COMMENT NORMAL REFERENCE RANGE NOT ESTABLISHED FOR THE PROPORTIONAL LEUKOCYTE DIFFERENTIAL. 01/20/2023 5:40 AM CDT [facility] NEUTROPHILS % 73.6 % 01/20/2023 5:56 AM CDT [facility] LYMPHOCYTES % 16.3 % 01/20/2023 5:56 AM CDT [facility] MONOCYTES % 7.0 % 01/20/2023 5:56 AM CDT [facility] EOSINOPHILS % 2.3 % 01/20/2023 5:56 AM CDT [facility] BASOPHILS % 0.3 % 01/20/2023 5:56 AM CDT [facility] IMMATURE GRANS % 0.5 % 01/21/20 5:56 AM CDT [facility] NRBC 0.0 % 01/20/2023 5:56 AM CDT [facility] ABS. NEUTROPHILS 7.65 1.60 - 8.30 x10'3/uL 01/20/2023 5:56 AM CDT [facility] ABS. LYMPHOCYTES 1.69 0.80 - 4.70 x10'3/uL 01/20/2023 5:56 AM CDT [facility] ABS. MONOCYTES 0.73 0.00 - 1.50 x10'3/uL 01/20/2023 5:56 AM CDT [facility] ABS. EOSINOPHILS 0.24 0.00 - 0.40 x10'3/uL 01/20/2023 5:56 AM CDT [facility] ABS. BASOPHILS 0.03 0.00 - 0.20 x10'3/uL 01/20/2023 5:56 AM CDT [facility] ABS. IMMATURE GRANULOCYTES 0.05(H) 0.00 - 0.03 x10'3/uL 01/20/2023 5:56 AM CDT [facility] ABS. NUCLEATED RBC'S 0.00 0.00 x10'3/uL 01/20/2023 5:56 AM CDT [facility] PLT MORPH. NORMAL 01/20/2023 5:56 AM CDT [facility] RBC MORPHOLOGY 3+ 01/20/2023 5:56 AM CDT [facility] Comment: POIKILOCYTOSIS 1+ ANISOCYTOSIS 1+ MACROCYTES 1+ OVALOCYTES 01/20/2023 5:09 AM CDT us Joi Elizabeth NP LABORATORY Final Result [facility] [address] [place] [address], * CT SHOULDER RT WO CON (01/19/2023 4:51 PM CDT) Anatomical Region Laterality Modality Shoulder Computed Tomogra phy 01/19/2023 6:49 PM CDT Impressions 01/19/2023 8:00 PM CDT IMPRESSION: No acute right shoulder abnormality. Dictated By: Letty Elizalde on 01/19/2023 6:49 PM The attending radiologist has reviewed the image(s) and agrees with the content of this report. Ordered By: NANDA BEDOYA Interpreted By: Letty Elizalde, 01/19/2023 6:49 PM Narrative 01/19/2023 8:00 PM CDT EXAMINATION: CT of the right shoulder CLINICAL HISTORY: Pain after fall COMPARISON: 01/17/2023 right shoulder radiographs TECHNIQUE: CT examination of the right shoulder without contrast was performed with axial images and multiplanar reformats obtained. A dose lowering technique was utilized for this procedure which may include but is not limited to dose reduction techniques, automated exposure control, and/or the use of iterative reconstruction in accordance with ALARA principle. 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 More significant degenerative change is seen at the acromioclavicular joint. Significant mass effect is seen upon the supraspinatus by inferior AC joint osteophytosis. There is also calcification in the region of the rotator cuff which appears chronic. No fracture is seen. There is no destructive osseous lesion. Muscle bulk is preserved. No soft tissue abnormality, including the visualized portions of the right lung. Procedure Note Percy Bianchi MD - 01/19/2023 EXAMINATION: CT of the right shoulder CLINICAL HISTORY: Pain after fall COMPARISON: 01/17/2023 right shoulder radiographs TECHNIQUE: CT examination of the right shoulder without contrast wasperformed with axial images and multiplanar reformats obtained. A doselowering technique was utilized for this procedure which may include butis not limited to dose reduction techniques, automated exposure control,and/or the use of iterative reconstruction in accordance with ALARAprinciple. 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 More significantdegenerative change is seen at the acromioclavicular joint. Significantmass effect is seen upon the supraspinatus by inferior AC jointosteophytosis. There is also calcification in the region of the rotatorcuff which appears chronic. No fracture is seen. There is no destructiveosseous lesion. Muscle bulk is preserved. No soft tissue abnormality,including the visualized portions of the right lung. IMPRESSION: No acute right shoulder abnormality. Dictated By: Letty Elizalde on 01/19/2023 6:49 PM The attending radiologist has reviewed the image(s) and agrees with thecontent of this report. Ordered By: NANDA BEDOYA Interpreted By: Letty Elizalde, 01/19/2023 6:49 PM us Nanda Bedoya [employer] A[employer] CT Final Result * (ABNORMAL) COMPREHENSIVE METABOLIC PANEL (01/19/2023 4:31 AM CDT) SODIUM S/P/B 139 136 - 145 MMOL/L 01/19/2023 5:20 AM CDT [facility] POTASSIUM S/P/B 3.4(L) 3.5 - 5.1 MMOL/L 01/19/2023 5:20 AM CDT [facility] CHLORIDE S/P/B 103 98 - 107 MMOL/L 01/19/2023 5:20 AM CDT [facility] CO2 30.7 21.0 - 32.0 MMOL/L 01/19/2023 5:20 AM CDT [facility] GLUCOSE 163(H) 70 - 99 MG/DL 01/19/2023 5:20 AM CDT [facility] Comment: FASTING GLUCOSE 100 TO 125 MG/DL IS CONSISTENT WITH IMPAIRED FASTING GLUCOSE. FASTING GLUCOSE >125 MG/DL IS CONSISTENT WITH DIABETES. RANDOM GLUCOSE >200 MG/DL WITH HYPERGLYCEMIC SYMPTOMS IS CONSISTENT WITH DIABETES. PER ADA GUIDELINES BUN 31(H) 6 - 24 MG/DL 01/19/2023 5:20 AM CDT [facility] CREATININE S/P/B 0.81 0.70 - 1.30 MG/DL 01/19/2023 5:20 AM CDT [facility] CALCIUM S/P/B 7.8(L) 8.4 - 10.5 MG/DL 01/19/2023 5:20 AM CDT [facility] BILIRUBIN TOTAL S/P/B 1.3(H) 0.2 - 1.0 MG/DL 01/19/2023 5:20 AM CDT [facility] Comment: THIS ASSAY IS NOT RECOMMENDED FOR PATIENTS UNDERGOING TREATMENT WITH ELTROMBOPAG DUE TO THE POTENTIAL FOR FALSELY ELEVATED RESULTS. ALKALINE PHOSPHATASE S/P/B 72 45 - 115 U/L 01/19/2023 5:20 AM CDT [facility] AST 37 15 - 37 U/L 01/19/2023 5:20 AM CDT [facility] ALT 35 16 - 63 U/L 01/19/2023 5:20 AM CDT [facility] TOTAL PROTEIN S/P/B 5.5(L) 6.4 - 8.2 G/DL 01/19/2023 5:20 AM CDT [facility] ALBUMIN S/P/B 2.2(L) 3.4 - 5.0 G/DL 01/19/2023 5:20 AM CDT [facility] ANION GAP 5.3 5.0 - 15.0 MMOL/L 01/19/2023 5:20 AM CDT [facility] OSMOLALITY (CALC) 298 MOSM/KG 023 5:20 AM CDT [facility] Comment:REFERENCE RANGE NOT ESTABLISHED GFR ESTIMATE >90 >89 ML/MIN/1. 73 M2 01/19/2023 5:20 AM CDT [facility] GFR NOTES GFR REFERENCE S: 01/19/2023 5:20 AM T [facility] Comment: THE ESTIMATED GFR [...] ml/min/1.73 m2 G5,KIDNEY FAILURE: <15 ml/min/1.73 m2 01/19/2023 4:31 AM CDT us Joi Elizabeth NP LABORATORY Final Result [facility] [address] [place] [address], * (ABNORMAL) CBC W/DIFF AUTOMATED (01/19/2023 4:31 AM CDT) WBC 12.23(H) 4.00 - 10.80 x10'3/uL 01/19/2023 5:12 AM CDT [facility] RBC 3.80(L) 4.50 - 6.10 x10'6/uL 01/19/2023 5:12 AM CDT [facility] HGB 10.4(L) 13.0 - 18.0 G/DL 01/19/2023 5:12 AM CDT [facility] HCT 31.9(L) 37.0 - 52.0 % 01/19/2023 5:12 AM CDT [facility] MCV 83.9 78.0 - 100.0 FL 01/19/2023 5:12 AM CDT [facility] MCH 27.4 27.0 - 31.0 PG 01/19/2023 5:12 AM CDT [facility] MCHC 32.6(L) 33.0 - 36.0 G/DL 01/19/2023 5:12 AM CDT [facility] RDW 16.2(H) 11.5 - 14.5 % 01/19/2023 5:12 AM CDT [facility] PLT 143(L) 150 - 350 x10'3/uL 01/19/2023 5:12 AM CDT [facility] MPV 12.0(H) 7.4 - 10.4 FL 01/19/2023 5:12 AM CDT [facility] CBC COMMENT NORMAL REFERENCE RANGE NOT ESTABLISHED FOR THE PROPORTIONAL LEUKOCYTE DIFFERENTIAL. 01/19/2023 5:12 AM CDT [facility] NEUTROPHILS % 80.3 % 01/19/2023 5:12 AM CDT [facility] LYMPHOCYTES % 11.9 % 01/19/2023 5:12 AM CDT [facility] MONOCYTES % 6.8 % 01/19/2023 5:12 AM CDT [facility] EOSINOPHILS % 0.5 % 01/19/2023 5:12 AM CDT [facility] BASOPHILS % 0.2 % 01/19/2023 5:12 AM CDT [facility] IMMATURE GRANS % 0.3 % 01/20/20 5:12 AM CDT [facility] NRBC 0.0 % 01/19/2023 5:12 AM CDT [facility] ABS. NEUTROPHILS 9.81(H) 1.60 - 8.30 x10'3/uL 01/19/2023 5:12 AM CDT [facility] ABS. LYMPHOCYTES 1.46 0.80 - 4.70 x10'3/uL 01/19/2023 5:12 AM CDT [facility] ABS. MONOCYTES 0.83 0.00 - 1.50 x10'3/uL 01/19/2023 5:12 AM CDT [facility] ABS. EOSINOPHILS 0.06 0.00 - 0.40 x10'3/uL 01/19/2023 5:12 AM CDT [facility] ABS. BASOPHILS 0.03 0.00 - 0.20 x10'3/uL 01/19/2023 5:12 AM CDT [facility] ABS. IMMATURE GRANULOCYTES 0.04(H) 0.00 - 0.03 x10'3/uL 01/19/2023 5:12 AM CDT [facility] ABS. NUCLEATED RBC'S 0.00 0.00 x10'3/uL 01/19/2023 5:12 AM CDT [facility] 01/19/2023 4:31 AM CDT us Joi Elizabeth NP LABORATORY Final Result [facility] [address] [place] [address], * XR CHEST PA+LAT (01/18/2023 3:55 PM CDT) Anatomical Region Laterality Modality Chest Radiographic Betsey ging 01/18/2023 4:17 PM CDT Impressions 01/18/2023 4:20 PM CDT Impression: 1. ??Mild pulmonary vascular congestion. 2. ??Small right pleural effusion. Referred By: ?? Interpreted By: Akira Castaneda MD, 01/18/2023 4:17 PM Narrative 01/18/2023 4:20 PM CDT Examination: Chest 2 View History: Confusion DATE/TIME: 01/18/2023 3:40 PM Comparison: September 16, 2022 Technique: PA and lateral views were obtained. Findings: Biventricular pacemaker. ??Borderline heart size. ??Mild pulmonary vascular congestion. ??No pulmonary consolidation or pneumothorax. ??Small right pleural effusion. ??No definite left pleural effusion identified. ??No acute osseous abnormality. Procedure Note Akira Castaneda MD - 01/18/2023 Examination: Chest 2 View History: Confusion DATE/TIME: 01/18/2023 3:40 PM Comparison: September 16, 2022 Technique: PA and lateral views were obtained. Findings: Biventricular pacemaker. Borderline heart size. Mild pulmonaryvascular congestion. No pulmonary consolidation or pneumothorax. Smallright pleural effusion. No definite left pleural effusion identified. Noacute osseous abnormality. Impression: 1. Mild pulmonary vascular congestion. 2. Small right pleural effusion. Referred By: Interpreted By: Akira Castaneda MD, 01/18/2023 4:17 PM Joi Elizabeth NP GENERAL IMAGING Final Result * (ABNORMAL) COMPREHENSIVE METABOLIC PANEL (01/18/2023 9:06 AM CDT) SODIUM S/P/B 139 136 - 145 MMOL/L 01/18/2023 9:37 AM CDT [facility] POTASSIUM S/P/B 3.6 3.5 - 5.1 MMOL/L 01/18/2023 9:37 AM CDT [facility] CHLORIDE S/P/B 105 98 - 107 MMOL/L 01/18/2023 9:37 AM T [facility] CO2 25.7 21.0 - 32.0 MMOL/L 01/18/2023 9:37 AM [facility] GLUCOSE 270(H) 70 - 99 MG/DL 01/18/2023 9:37 AM T [facility] Comment: FASTING GLUCOSE 100 TO 125 MG/DL IS CONSISTENT WITH IMPAIRED FASTING GLUCOSE. FASTING GLUCOSE >125 MG/DL IS CONSISTENT WITH DIABETES. RANDOM GLUCOSE >200 MG/DL WITH HYPERGLYCEMIC SYMPTOMS IS CONSISTENT WITH DIABETES. PER ADA GUIDELINES BUN 31(H) 6 - 24 MG/DL 01/18/2023 9:37 AM T [facility] CREATININE S/P/B 0.88 0.70 - 1.30 MG/DL 01/18/2023 9:37 AM T [facility] CALCIUM S/P/B 7.9(L) 8.4 - 10.5 MG/DL 01/18/2023 9:37 AM T [facility] BILIRUBIN TOTAL S/P/B 1.5(H) 0.2 - 1.0 MG/DL 01/18/2023 9:37 AM [facility] Comment: THIS ASSAY IS NOT RECOMMENDED FOR PATIENTS UNDERGOING TREATMENT WITH ELTROMBOPAG DUE TO THE POTENTIAL FOR FALSELY ELEVATED RESULTS. ALKALINE PHOSPHATASE S/P/B 76 45 - 115 U/L 01/18/2023 9:37 AM [facility] AST 52(H) 15 - 37 U/L 01/18/2023 9:37 AM [facility] ALT 34 16 - 63 U/L 01/18/2023 9:37 AM T [facility] TOTAL PROTEIN S/P/B 5.8(L) 6.4 - 8.2 G/DL 01/18/2023 9:37 AM T [facility] ALBUMIN S/P/B 2.6(L) 3.4 - 5.0 G/DL 01/18/2023 9:37 AM T [facility] ANION GAP 8.3 5.0 - 15.0 MMOL/L 01/18/2023 9:37 AM CDT [facility] OSMOLALITY (CALC) 304 MOSM/KG 023 9:37 AM CDT [facility] Comment:REFERENCE RANGE NOT ESTABLISHED GFR ESTIMATE 88(L) >89 ML/MIN/1. 73 M2 01/18/2023 9:37 AM CDT [facility] GFR NOTES GFR REFERENCE S: 01/18/2023 9:37 AM CDT [facility] Comment: THE ESTIMATED GFR [...] ml/min/1.73 m2 G5,KIDNEY FAILURE: <15 ml/min/1.73 m2 01/18/2023 9:06 AM CDT Joi Elizabeth NP LABORATORY Final Result [facility] [address] [place] [address], * (ABNORMAL) CBC W/DIFF AUTOMATED (01/18/2023 9:06 AM CDT) WBC 12.92(H) 4.00 - 10.80 x10'3/uL 01/18/2023 9:28 AM CDT [facility] RBC 4.11(L) 4.50 - 6.10 x10'6/uL 01/18/2023 9:28 AM CDT [facility] HGB 11.3(L) 13.0 - 18.0 G/DL 01/18/2023 9:28 AM CDT [facility] HCT 35.1(L) 37.0 - 52.0 % 01/18/2023 9:28 AM CDT [facility] MCV 85.4 78.0 - 100.0 FL 01/18/2023 9:28 AM CDT [facility] MCH 27.5 27.0 - 31.0 PG 01/18/2023 9:28 AM CDT [facility] MCHC 32.2(L) 33.0 - 36.0 G/DL 01/18/2023 9:28 AM CDT [facility] RDW 16.3(H) 11.5 - 14.5 % 01/18/2023 9:28 AM CDT [facility] PLT 142(L) 150 - 350 x10'3/uL 01/18/2023 9:28 AM CDT [facility] MPV 11.2(H) 7.4 - 10.4 FL 01/18/2023 9:28 AM CDT [facility] CBC COMMENT NORMAL REFERENCE RANGE NOT ESTABLISHED FOR THE PROPORTIONAL LEUKOCYTE DIFFERENTIAL. 01/18/2023 9:28 AM CDT [facility] NEUTROPHILS % 84.7 % 01/18/2023 9:28 AM CDT [facility] LYMPHOCYTES % 8.8 % 01/18/2023 9:28 AM CDT [facility] MONOCYTES % 5.5 % 01/18/2023 9:28 AM CDT [facility] EOSINOPHILS % 0.4 % 01/18/2023 9:28 AM CDT [facility] BASOPHILS % 0.2 % 01/18/2023 9:28 AM CDT [facility] IMMATURE GRANS % 0.4 % 01/19/20 9:28 AM CDT [facility] NRBC 0.0 % 01/18/2023 9:28 AM CDT [facility] ABS. NEUTROPHILS 10.94(H) 1.60 - 8.30 x10'3/uL 01/18/2023 9:28 AM CDT [facility] ABS. LYMPHOCYTES 1.14 0.80 - 4.70 x10'3/uL 01/18/2023 9:28 AM CDT [facility] ABS. MONOCYTES 0.71 0.00 - 1.50 x10'3/uL 01/18/2023 9:28 AM CDT [facility] ABS. EOSINOPHILS 0.05 0.00 - 0.40 x10'3/uL 01/18/2023 9:28 AM CDT [facility] ABS. BASOPHILS 0.03 0.00 - 0.20 x10'3/uL 01/18/2023 9:28 AM CDT [facility] ABS. IMMATURE GRANULOCYTES 0.05(H) 0.00 - 0.03 x10'3/uL 01/18/2023 9:28 AM CDT [facility] ABS. NUCLEATED RBC'S 0.00 0.00 x10'3/uL 01/18/2023 9:28 AM CDT [facility] 01/18/2023 9:06 AM CDT Joi Elizabeth NP LABORATORY Final Result [facility] [address] [place] [address], * (ABNORMAL) URINALYSIS (01/17/2023 1:55 PM CDT) COLOR (U) DARK YELLOW 01/17/2023 2:17 PM CDT [facility] TRANSPARENCY CLOUDY 01/17/2023 2:17 PM CDT [facility] SPECIFIC GRAVITY (U) 1.030(H) 1.000 - 1.025 01/17/2023 2:17 PM CDT [facility] Comment:EQUAL TO OR GREATER THAN U PH 5.0 5.0 - 8.0 01/17/2023 2:17 PM CDT [facility] LEUKOCYTES (U) NEGATIVE NEGATIVE 01/17/2023 2:17 PM CDT [facility] NITRITES NEGATIVE NEGATIVE 01/17/2023 2:17 PM CDT [facility] PROTEIN RANDOM (U) 2+(A) NEGATIVE 01/17/2023 2:17 PM CDT [facility] GLUCOSE (U) NEGATIVE NEGATIVE 01/17/2023 2:17 PM CDT [facility] KETONES MG/DL (U) 1+(A) NEGATIVE 01/17/2023 2:17 PM CDT [facility] UROBILINOGEN 0.2 <1.0 EU/DL 01/17/2023 2:17 PM CDT [facility] BLOOD (U) 2+(A) NEGATIVE 01/17/2023 2:17 PM CDT [facility] WBC/HPF 0-5 0 - 5 /HPF 01/17/2023 2:17 PM CDT [facility] EPI/LPF OCCASIONAL /LPF 01/17/2023 2:17 PM CDT [facility] BACTERIA (U) 1+ /HPF 01/17/2023 2:17 PM CDT [facility] MUCUS PRESENT 01/17/2023 2:17 PM CDT [facility] COMMENT (U) OCCASIONAL RENAL EPITHELIAL CELLS PRESENT. 01/17/2023 2:17 PM CDT [facility] BILIRUBIN CONF ICTO (U) NEGATIVE NEGATIVE 01/17/2023 2:17 PM CDT [facility] URINE SPECIMEN OBTAINED BY CLEAN CATCH PROCEDURE / Unknown 01/17/2023 1:55 PM CDT us Abdon Yarbrough DO URINE ORDERABLES Final Result [facility] [address] [place] [address], * CT HEAD WO CON (01/17/2023 1:16 PM CDT) Anatomical Region Laterality Modality Head Computed Tomogra phy 01/17/2023 1:33 PM CDT Impressions 01/17/2023 1:38 PM CDT IMPRESSION: 1. ??No acute intracranial process identified. 2. ??Small vessel disease. 3. ??Minimal bilateral maxillary sinusitis. Referred By: ?? Interpreted By: Morgan Thornton MD, 01/17/2023 1:33 PM Narrative 01/17/2023 1:38 PM CDT Examination: CT of the head without contrast. Exam time: 1330 hours. Clinical history: Trauma. ??Unwitnessed ground-level fall. Comparison: None Technique: Noncontrast axial scans from skull base to vertex. ??Sagittal and coronal reconstructions were performed from the data set. ??A dose lowering technique was used for this procedure, which may include, but is not limited to, dose reduction techniques, automated exposure control, the use of iterative reconstruction and ALARA/Image Gently techniques. Findings: The ventricles are normal in size and configuration. ??No shift of midline or mass effect is noted. ??There is prominence of the fissures and sulci, compatible with age. ??There is periventricular decreased attenuation, compatible with small vessel disease. ??Intracranially, no other areas of abnormal x-ray attenuation are identified. ??In particular, there is no mass, hemorrhage or sign of acute stroke. ??No extracerebral fluid collections. ??The skull appears intact. ??There is minor mucosal thickening in the maxillary sinuses. ??The mastoid air cells and paranasal sinuses are otherwise clear. Procedure Note Morgan Thornton MD - 01/17/2023 Examination: CT of the head without contrast. Exam time: 1330 hours. Clinical history: Trauma. Unwitnessed ground-level fall. Comparison: None Technique: Noncontrast axial scans from skull base to vertex. [place] coronal reconstructions were performed from the data set. A doselowering technique was used for this procedure, which may include, but isnot limited to, dose reduction techniques, automated exposure control, theuse of iterative reconstruction and ALARA/Image Gently techniques. Findings: The ventricles are normal in size and configuration. No shiftof midline or mass effect is noted. There is prominence of the fissuresand sulci, compatible with age. There is periventricular decreasedattenuation, compatible with small vessel disease. Intracranially, noother areas of abnormal x-ray attenuation are identified. In particular,there is no mass, hemorrhage or sign of acute stroke. No extracerebralfluid collections. The skull appears intact. There is minor mucosalthickening in the maxillary sinuses. The mastoid air cells and paranasalsinuses are otherwise clear. IMPRESSION: 1. No acute intracranial process identified. 2. Small vessel disease. 3. Minimal bilateral maxillary sinusitis. Referred By: Interpreted By: Morgan Thornton MD, 01/17/2023 1:33 PM us Abdon Yarbrough DO CT Final Result * XR FOOT RT 3V (01/17/2023 12:05 PM CDT) Anatomical Region Laterality Modality Foot Radiographic Betsey ging 01/17/2023 12:1 0 PM CDT Impressions 01/17/2023 12:13 PM CDT IMPRESSION: 1. ??No acute osseous abnormalities are identified. 2. ??Potential gout. ??Clinical correlation recommended. Referred By: ?? Interpreted By: Bartolome Dillard DO, 01/17/2023 12:10 PM Narrative 01/17/2023 12:13 PM CDT EXAMINATION: XR FOOT RT 3V HISTORY: Right foot pain and bruising. COMPARISON: None. TECHNIQUE: Multiple views of the right foot. FINDINGS: No evidence of acute fracture or dislocation. ??No evidence of osteolysis. ??Alignment is maintained. ??There is a bipartite medial sesamoid bone. ??There are linear areas of soft tissue calcification adjacent to the distal first metatarsal. ??Gout is possible and is not excluded. ??There is a plantar calcaneal spur. 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 ?? Procedure Note Bartolome Dillard DO - 01/17/2023 EXAMINATION: XR FOOT RT 3V HISTORY: Right foot pain and bruising. COMPARISON: None. TECHNIQUE: Multiple views of the right foot. FINDINGS: No evidence of acute fracture or dislocation. No evidence of osteolysis.Alignment is maintained. There is a bipartite medial sesamoid bone.There are linear areas of soft tissue calcification adjacent to the distalfirst metatarsal. Gout is possible and is not excluded. There is aplantar calcaneal spur. 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 IMPRESSION: 1. No acute osseous abnormalities are identified. 2. Potential gout. Clinical correlation recommended. Referred By: Interpreted By: Bartolome Dillard DO, 01/17/2023 12:10 PM Abdon Yarbrough DO GENERAL IMAGING Final Result * XR SHOULDER RT MIN 2V (01/17/2023 12:05 PM CDT) Anatomical Region Laterality Modality Shoulder Radiographic Betsey ging 01/17/2023 12:1 0 PM CDT Impressions 01/17/2023 12:11 PM CDT IMPRESSION: 1. No acute abnormality. 2. Arthritic changes. Ordered By: ABDON YARBROUGH Interpreted By: Percy Bianchi MD, 01/17/2023 12:10 PM Narrative 01/17/2023 12:11 PM CDT Examination: XR SHOULDER RT MIN 2V Exam time: 01/17/2023 12:05 PM Clinical history: Pain. Bruising. Comparison: No prior exam Technique: Internal rotation, external rotation, scapular Y views Findings: Glenohumeral and acromioclavicular joint relationships appear unremarkable. Moderate arthritic change acromioclavicular joint. Hypertrophic spurring inferior medial humeral head consistent with glenohumeral joint arthritic change. No evidence of fracture or acute osseous abnormalities. Small calcifications project about the lateral aspect right humeral head and appear chronic. Procedure Note Percy Bianchi MD - 01/17/2023 Examination: XR SHOULDER RT MIN 2V Exam time: 01/17/2023 12:05 PM Clinical history: Pain. Bruising. Comparison: No prior exam Technique: Internal rotation, external rotation, scapular Y views Findings: Glenohumeral and acromioclavicular joint relationships appearunremarkable. Moderate arthritic change acromioclavicular joint.Hypertrophic spurring inferior medial humeral head consistent withglenohumeral joint arthritic change. No evidence of fracture or acuteosseous abnormalities. Small calcifications project about the lateralaspect right humeral head and appear chronic. IMPRESSION: 1. No acute abnormality. 2. Arthritic changes. Ordered By: ABDON YARBROUGH Interpreted By: Percy Bianchi MD, 01/17/2023 12:10 PM us Abdon Yarbrough DO GENERAL IMAGING Final Result * TROPONIN, QUANT (01/17/2023 11:45 AM CDT) TROPONIN I HIGH SENSITIVITY 64 0 - 76 ng/L 01/17/2023 2:02 PM CDT [facility] 01/17/2023 11:4 5 AM CDT us Abdon Yarbrough DO LABORATORY Final Result [facility] [address] [place] [address], * (ABNORMAL) PRO-BRAIN NATRIURETIC PEPTIDE (01/17/2023 11:45 AM CDT) PRO-B TYPE NATRIURETIC PEPTIDE 2,572(H) <450 PG/ML 01/17/2023 2:02 PM CDT [facility] Comment: CUT POINTS ESTABLISHED BY INTERNATIONAL [...] OF 89% AND 72% FOR ACUTE CHF. 01/17/2023 11:4 5 AM CDT Abdon Yarbrough DO LABORATORY Final Result [facility] [address] [place] [address], * (ABNORMAL) CBC W/DIFF AUTOMATED (01/17/2023 11:45 AM CDT) WBC 12.72(H) 4.00 - 10.80 x10'3/uL 01/17/2023 11:58 AM CDT [facility] RBC 4.63 4.50 - 6.10 x10'6/uL 01/17/2023 11:58 AM CDT [facility] HGB 12.6(L) 13.0 - 18.0 G/DL 01/17/2023 11:58 AM CDT [facility] HCT 38.6 37.0 - 52.0 % 01/17/2023 11:58 AM CDT [facility] MCV 83.4 78.0 - 100.0 FL 01/17/2023 11:58 AM CDT [facility] MCH 27.2 27.0 - 31.0 PG 01/17/2023 11:58 AM CDT [facility] MCHC 32.6(L) 33.0 - 36.0 G/DL 01/17/2023 11:58 AM CDT [facility] RDW 15.9(H) 11.5 - 14.5 % 01/17/2023 11:58 AM CDT [facility] PLT 170 150 - 350 x10'3/uL 01/17/2023 11:58 AM CDT [facility] MPV 11.2(H) 7.4 - 10.4 FL 01/17/2023 11:58 AM CDT [facility] CBC COMMENT NORMAL REFERENCE RANGE NOT ESTABLISHED FOR THE PROPORTIONAL LEUKOCYTE DIFFERENTIAL. 01/17/2023 11:58 AM CDT [facility] NEUTROPHILS % 85.9 % 01/17/2023 11:58 AM CDT [facility] LYMPHOCYTES % 8.2 % 01/17/2023 11:58 AM CDT [facility] MONOCYTES % 5.2 % 01/17/2023 11:58 AM CDT [facility] EOSINOPHILS % 0.1 % 01/17/2023 11:58 AM CDT [facility] BASOPHILS % 0.3 % 01/17/2023 11:58 AM CDT [facility] IMMATURE GRANS % 0.3 % 01/18/20 11:58 AM CDT [facility] NRBC 0.0 % 01/17/2023 11:58 AM CDT [facility] ABS. NEUTROPHILS 10.93(H) 1.60 - 8.30 x10'3/uL 01/17/2023 11:58 AM CDT [facility] ABS. LYMPHOCYTES 1.04 0.80 - 4.70 x10'3/uL 01/17/2023 11:58 AM CDT [facility] ABS. MONOCYTES 0.66 0.00 - 1.50 x10'3/uL 01/17/2023 11:58 AM CDT [facility] ABS. EOSINOPHILS 0.01 0.00 - 0.40 x10'3/uL 01/17/2023 11:58 AM CDT [facility] ABS. BASOPHILS 0.04 0.00 - 0.20 x10'3/uL 01/17/2023 11:58 AM CDT [facility] ABS. IMMATURE GRANULOCYTES 0.04(H) 0.00 - 0.03 x10'3/uL 01/17/2023 11:58 AM CDT [facility] ABS. NUCLEATED RBC'S 0.00 0.00 x10'3/uL 01/17/2023 11:58 AM CDT [facility] 01/17/2023 11:4 5 AM CDT us Abdon Yarbrough DO LABORATORY Final Result [facility] [address] [place] [id number], * (ABNORMAL) COMPREHENSIVE METABOLIC PANEL (01/17/2023 11:45 AM CDT) [facility] Signature SODIUM S/P/B 142 136 - 145 MMOL/L 01/17/2023 12:12 PM CDT [facility] POTASSIUM S/P/B 3.2(L) 3.5 - 5.1 MMOL/L 01/17/2023 12:12 PM CDT [facility] CHLORIDE S/P/B 103 98 - 107 MMOL/L 01/17/2023 12:12 PM CDT [facility] CO2 28.3 21.0 - 32.0 MMOL/L 01/17/2023 12:12 PM CDT [facility] GLUCOSE 156(H) 70 - 99 MG/DL 01/17/2023 12:12 PM CDT [facility] Comment: FASTING GLUCOSE 100 TO 125 MG/DL IS CONSISTENT WITH IMPAIRED FASTING GLUCOSE. FASTING GLUCOSE >125 MG/DL IS CONSISTENT WITH DIABETES. RANDOM GLUCOSE >200 MG/DL WITH HYPERGLYCEMIC SYMPTOMS IS CONSISTENT WITH DIABETES. PER ADA GUIDELINES BUN 27(H) 6 - 24 MG/DL 01/17/2023 12:12 PM CDT [facility] CREATININE S/P/B 0.89 0.70 - 1.30 MG/DL 01/17/2023 12:12 PM CDT [facility] CALCIUM S/P/B 9.0 8.4 - 10.5 MG/DL 01/17/2023 12:12 PM CDT [facility] BILIRUBIN TOTAL S/P/B 2.3(H) 0.2 - 1.0 MG/DL 01/17/2023 12:12 PM CDT [facility] Comment: THIS ASSAY IS NOT RECOMMENDED FOR PATIENTS UNDERGOING TREATMENT WITH ELTROMBOPAG DUE TO THE POTENTIAL FOR FALSELY ELEVATED RESULTS. ALKALINE PHOSPHATASE S/P/B 87 45 - 115 U/L 01/17/2023 12:12 PM CDT [facility] AST 76(H) 15 - 37 U/L 01/17/2023 12:12 PM CDT [facility] ALT 39 16 - 63 U/L 01/17/2023 12:12 PM CDT [facility] TOTAL PROTEIN S/P/B 6.6 6.4 - 8.2 G/DL 01/17/2023 12:12 PM CDT [facility] ALBUMIN S/P/B 3.2(L) 3.4 - 5.0 G/DL 01/17/2023 12:12 PM CDT [facility] ANION GAP 10.7 5.0 - 15.0 MMOL/L 01/17/2023 12:12 PM T [facility] OSMOLALITY (CALC) 302 MOSM/KG 023 12:12 PM T [facility] Comment:REFERENCE RANGE NOT ESTABLISHED GFR ESTIMATE 88(L) >89 ML/MIN/1. 73 M2 01/17/2023 12:12 PM T [facility] GFR NOTES GFR REFERENCE S: 01/17/2023 12:12 PM T [facility] Comment: THE ESTIMATED GFR [...] ml/min/1.73 m2 G5,KIDNEY FAILURE: <15 ml/min/1.73 m2 01/17/2023 11:4 5 AM CDT Abdon Yarbrough DO LABORATORY Final Result [facility] [address] [place] [address], documented in this encounter Visit Diagnoses Diagnosis Dehydration- Primary Dehydration Fall Unspecified fall Impaired mobility and ADLs Mechanical problems with limbs documented in this encounter Admitting Diagnoses Diagnosis Dehydration documented in this encounter Administered Medications Inactive Administered Medications - up to 3 most recent administrations Medication Order MAR Action Action Date Dose Rate Site acetaminophen (TYLENOL) tablet 1,000 mg 1,000 mg, Oral, Every 6 hours PRN, Mild pain (Scale 1 - 3), Starting on 01/19/23 at 1555, Until Thu01/21/23 at 1831, Maximum dose of acetaminophen is 4000 mg from all sources in 24 hours. amLODIPine (NORVASC) tablet 5 mg 5 mg, Oral, Daily, First dose on 01/18/23 at 1345, Until Discontinued Given 01/21/2023 9:59 AM CDT 5 mg Given 01/20/2023 8:37 AM CDT 5 mg Given 01/19/2023 9:07 AM CDT 5 mg apixaban (ELIQUIS) tablet 5 mg 5 mg, Oral, 2 times daily, Indications: Atrial Fibrillation, First dose on 01/18/23 at 1345, Until DiscontinuedIndications:Atrial Fibrillation Given 01/21/2023 10:00 AM CDT 5 mg Given 01/20/2023 8:34 PM CDT 5 mg Given 01/20/2023 8:35 AM CDT 5 mg atorvastatin (LIPITOR) tablet 80 mg 80 mg, Oral, Nightly at bedtime, First dose on Thu01/18/23 at 2100, Until Discontinued Given 01/20/2023 8:33 PM CDT 80 m g Given 01/19/2023 9:18 PM CDT 80 mg carvedilol (COREG) tablet 12.5 mg 12.5 mg, Oral, 2 times daily, First dose on Thu01/18/23 at 1345, Until Discontinued, Take with meal or snack Given 01/18/2023 2:36 PM CDT 12.5 mg docusate sodium (COLACE) capsule 100 mg 100 mg, Oral, 2 times daily, First dose on Thu01/18/23 at 1045, Until Discontinued Given 01/19/2023 9:18 PM CDT 100 mg Given 01/19/2023 8:52 AM CDT 100 mg Given 01/18/2023 12:49 PM CDT 100 mg glipiZIDE (GLUCOTROL) tablet 10 mg 10 mg, Oral, 2 times daily before meals, First dose on Thu01/18/23 at 1600, Until Discontinued Given 01/21/2023 6:04 AM CDT 10 mg Given 01/20/2023 6:14 PM CDT 10 mg Given 01/20/2023 6:30 AM CDT 10 mg lisinopril (PRINIVIL) tablet 40 mg 40 mg, Oral, Daily, First dose on 01/18/23 at 1345, Until Discontinued Given 01/21/2023 9:59 AM CDT 40 mg Given 01/20/2023 8:39 AM CDT 40 mg Given 01/18/2023 2:36 PM CDT 40 mg magnesium oxide (MAG-OX) tablet 400 mg 400 mg, Oral, Daily, First dose on Thu01/18/23 at 1345, Until Discontinued Given 01/21/2023 9:59 AM CDT 400 mg Given 01/20/2023 8:36 AM CDT 400 mg Given 01/19/2023 8:52 AM CDT 400 mg metFORMIN (GLUCOPHAGE) tablet 1,000 mg 1,000 mg, Oral, 2 times daily, First dose on 01/18/23 at 1345, Until Discontinued Given 01/21/2023 9:59 A M CDT 1,000 mg Given 01/20/2023 8:34 PM CDT 1,000 mg Given 01/20/2023 8:36 AM CDT 1,000 mg morphine injection 2 mg 2 mg, Intravenous, Once, 1 dose, On 01/17/23 at 1545 Given 01/17/2023 3:45 PM CDT 2 mg morphine injection 4 mg 4 mg, Intravenous, Once, 1 dose, On 01/17/23 at 1145 Given 01/17/2023 11:49 AM CDT 4 mg morphine injection 4 mg 4 mg, Intravenous, Every 3 hours PRN, Severe pain (Scale 8 - 10), 5 doses, Starting on 01/17/23 at 1547, Until Thu01/18/23 at 1030 Given 01/17/2023 9:08 PM CDT 4 mg morphine injection 4 mg 4 mg, Intravenous, Every 4 hours PRN, Severe pain (Scale 8 - 10), Starting on Thu01/18/23 at 1030, Until Thu01/21/23 at 1831 ondansetron (ZOFRAN) injection 4 mg 4 mg, Intravenous, Once, 1 dose, On 01/17/23 at 1145, IV push over 2-5 minutes. Given 01/17/2023 11:49 AM CDT 4 mg ondansetron (ZOFRAN) injection 4 mg 4 mg, Intravenous, Every 4 hours PRN, Nausea, 5 doses, Starting on 01/17/23 at 1547, Until 01/21/23 at 1831, IV push over 2-5 minutes. potassium chloride CR (KLOR-CON M) tablet 40 mEq 40 mEq, Oral, Once, 1 dose, On 01/19/23 at 1200, Do not chew, crush, or suck on tablet. May break in half. May dissolve whole tablet in 120 mL of water and drink immediately. Given 01/19/2023 11:36 AM CDT 40 mEq sodium chloride 0.9% bolus infusion 1,000 mL 1,000 mL, Intravenous, Administer over 15 Minutes, Once, 1 dose, On 01/17/23 at 1145 New Bag 01/17/2023 11:46 AM CDT 1,000 mLs sodium chloride 0.9% bolus infusion 1,000 mL 1,000 mL, Intravenous, Administer over 15 Minutes, Bolus (Once), 1 dose, On 01/17/23 at 1300 New Bag 01/17/2023 1:00 PM CDT 1,000 mLs sodium chloride 0.9% infusion at 125 mL/hr, Intravenous, Once, 1 dose, On 01/17/23 at 1600 New Bag 01/17/2023 4:54 PM CDT 1,000 mLs 125 mL/hr vitamin B-12 (CYANOCOBALAMIN) tablet 1,000 mcg 1,000 mcg, Oral, Daily, First dose on 01/18/23 at 1345, Until Discontinued Given 01/21/2023 10:00 AM CDT 1,000 mcg Given 01/20/2023 8:35 AM CDT 1,000 mcg Given 01/19/2023 8:52 AM CDT 1,000 mcg documented in this encounter Active and Recently Administered Medications Times are shown in CDT. Scheduled Medication Order 01/19/2023 01/20/2023 01/21/2023 amLODIPine (NORVASC) tablet 5 mg 5 mg, Oral, Daily, First dose on 01/18/23 at 1345, Until Discontinued 0907 (Given - Provider: Mamta Bolanos RN) 0837 (Given - Provider: Aliza Posada RN) 0959 (Given - Provider: Aliza Posada RN) apixaban (ELIQUIS) tablet 5 mg 5 mg, Oral, 2 times daily, Indications: Atrial Fibrillation, First dose on 01/18/23 at 1345, Until Discontinued 0852 (Given - Provider: Mamta Bolanos RN)2117 (Given - Provider: Cyndee Can RN) 0835 (Given - Provider: Aliza Posada RN)2033 (Given - Provider: Leti Coburn RN) 1000 (Given - Provider: Aliza Posada RN) atorvastatin (LIPITOR) tablet 80 mg 80 mg, Oral, Nightly at bedtime, First dose on 01/18/23 at 2100, Until Discontinued 2117 (Given - Provider: Cyndee Can RN) 2032 (Given - Provider: Leti Coburn RN) docusate sodium (COLACE) capsule 100 mg 100 mg, Oral, 2 times daily, First dose on 01/18/23 at 1045, Until Discontinued 52 (Given - Provider: Mamta Bolanos RN)2117 (Given - Provider: Cyndee Can RN) 0838 (Not Given - Provider: Aliza Posada RN - Reason: Patient/family declined)2033 (Not Given - Provider: Leti Coburn RN - Reason: Patient/family declined) 1000 (Not Given - Provider: Aliza Posada RN - Reason: Patient/family declined) glipiZIDE (GLUCOTROL) tablet 10 mg 10 mg, Oral, 2 times daily before meals, First dose on 01/18/23 at 1600, Until Discontinued 0603 (Given - Provider: Marianna Morelos RN)1602 (Given - Provider: Mamta Bolanos RN) 0630 (Given - Provider: Cyndee Can RN)1814 (Given - Provider: Aliza Posada RN) 0604 (Given - Provider: Leti Coburn RN)1600 (Canceled Entry - Provider: Automatic Discharge Provider - Comment: Automatically canceled at discontinue of medication order) lisinopril (PRINIVIL) tablet 40 mg 40 mg, Oral, Daily, First dose on 01/18/23 at 1345, Until Discontinued 0906 (Not Given - Provider: Mamta Bolanos RN - Reason: Provider Order - Comment: HOld for BP 104/56.) 0839 (Given - Provider: Aliza Posada RN) 0959 (Given - Provider: Aliza Posada RN) magnesium oxide (MAG-OX) tablet 400 mg 400 mg, Oral, Daily, First dose on 01/18/23 at 1345, Until Discontinued 0852 (Given - Provider: Mamta Bolanos RN) 0836 (Given - Provider: Aliza Posada RN) 0959 (Given - Provider: Aliza Posada RN) metFORMIN (GLUCOPHAGE) tablet 1,000 mg 1,000 mg, Oral, 2 times daily, First dose on 01/18/23 at 1345, Until Discontinued 0852 (Given - Provider: Mamta Bolanos RN)2117 (Given - Provider: Cyndee Can, JACOB) 0836 (Given - Provider: Aliza Posada RN)2033 (Given - Provider: Leti Coburn RN) 0959 (Given - Provider: Aliza Posada RN) potassium chloride CR (KLOR-CON M) tablet 40 mEq (COMPLETED) 40 mEq, Oral, Once, 1 dose, On 01/19/23 at 1200, Do not chew, crush, or suck on tablet. May break in half. May dissolve whole tablet in 120 mL of water and drink immediately. 1136 (Given - Provider: Mamta Bolanos RN) vitamin B-12 (CYANOCOBALAMIN) tablet 1,000 mcg 1,000 mcg, Oral, Daily, First dose on 01/18/23 at 1345, Until Discontinued 0852 (Given - Provider: Mamta Bolanos RN) 0835 (Given - Provider: Aliza Posada RN) 1000 (Given - Provider: Aliza Posada RN) PRN Medication Order 01/19/2023 01/20/2023 01/21/2023 acetaminophen (TYLENOL) tablet 1,000 mg 1,000 mg, Oral, Every 6 hours PRN, Mild pain (Scale 1 - 3), Starting on 01/19/23 at 1555, Until Thu01/21/23 at 1831, Maximum dose of acetaminophen is 4000 mg from all sources in 24 hours. morphine injection 4 mg 4 mg, Intravenous, Every 4 hours PRN, Severe pain (Scale 8 - 10), Starting on 01/18/23 at 1030, Until Thu01/21/23 at 1831 ondansetron (ZOFRAN) injection 4 mg 4 mg, Intravenous, Every 4 hours PRN, Nausea, 5 doses, Starting on 01/17/23 at 1547, Until Thu01/21/23 at 1831, IV push over 2-5 minutes. polyethylene glycol (GLYCOLAX) packet 17 g 17 g, Oral, Daily as needed, Constipation, Starting on 01/18/23 at 1024, Until Thu01/21/23 at 1831, If both senna and polyethylene glycol are ordered, use 1st; if no response by next dosing interval, go to next option. Senna (SENOKOT) 8.6 MG tablet 8.6 mg 8.6 mg, Oral, Daily as needed, Constipation, Starting on 01/18/23 at 1024, Until Thu01/21/23 at 1831, If both senna and polyethylene glycol are ordered, use as 2nd choice. documented in this encounter Care Teams Skein Yarn Drier Relationship Specialty Start Date End Date Abdon Mendoza MD [address] [place] [address] [place] [id number] PCP - General FAMILY PRACTICE 12/17/15 [place]ern[place] [phone] Consulting Physician CARDIOVASCULAR DISEASE 07/05/1901/30 [place] [phone] Referring Physician Nurse Practitioner Family 10/08/2104/14 Madan [place] [address] EP Poultry Hatchery Supervisor CLINICAL CARDIAC ELECTROPHYSIOLOGY 10/08/21 documented as of this encounter
--- OUTSIDE RECORDS SUMMARY | 2024-06-08 06:09 | XMS_ITS | Encounter Summary ---
Author Organization [facility] Address [facility] [place] [address] [place] [address] Care Team Providers Care Waybill Clerk Name Role Phone Abdon Villela MD Primary Care Provider [phone] Pernell Vance MD Unavailable UnavailKamilla Lazaro NP Unavailable Unavailable Madan Palomo MD Unavailable [phone] Encounter Details Date Type Department Care Team (Latest Contact Info) Description 02/17/2023 11:02 AM CDT - 02/17/2023 11:59 PM T Hospital Encounter [facility] [address] [place] [address] Bartolome Brown MD [address] [place] [address] Discharge Disposition: Home or Self Care (Routine [...] slept in a assisted (including now)? No 01/17/2023 Sex and Gender [...] Assessment Author Status Yes 01/17/2023 5:13 PM CDT Tonya Allison RN Active * Are you blind or do you have serious difficulty seeing, even when wearing glasses? Answer Date of Assessment Author Status No 01/17/2023 5:13 PM Tonya Robles RN Active * Do you have serious difficulty walking or climbing stairs? Answer Date of Assessment Author Status Yes 01/17/2023 5:13 PM Tonya Robles RN Active * Do you have difficulty dressing or bathing? Answer Date of Assessment Author Status Yes 01/17/2023 5:13 PM Tonya Robles RN Active * Because of a physical, mental, or emotional condition, do you have difficulty doing errands alone such as visiting a doctor's office or shopping? Answer Date of Assessment Author Status Yes 01/17/2023 5:13 PM Tonya Robles RN Active documented as of this encounter Mental Status * Because of a physical, mental, or emotional condition, do you have serious difficulty concentrating, remembering, or making decisions? Answer Entry Date Author Status Yes 01/17/2023 5:13 PM Tonya Robles RN Active documented in this encounter Medications at Time of Discharge apixaban (ELIQUIS) 5 MG tablet Take 1 tablet (5 mg total) by mouth 2 (two) times daily. 60 tablet 5 09/19/2022 metFORMIN 1000 MG tablet Take 1 tablet (1,000 mg total) by mouth 2 (two) times daily. 09/13/2014 polyethylene glycol powder Take 17 g by mouth daily as needed (constipation ). 06/11/2018 amLODIPine 2.5 MG tablet Take 2 tablets [...] as of this encounter Progress Notes * Xuan Gonzalez MD - 02/17/2023 11:02 AM CDT Additional documentation from 02/15/23-03/03/23 may be found under the media tab. BER documented in this encounter Plan of Treatment Upcoming Encounters Date Type Department Care Team (Latest Contact Info) Description 06/09/2024 2:20 PM [facility] Telemedicine [facility] Multispecialty [facility] [address] [place] [address] Earnest Drake MD [address] [place] [address] 06/21/2024 1:30 AM SWABBER Allied Health/Nurse Visit [facility] [address] [place] [phone] Madan Palomo MD [address] [place] [address] 03/01/2025 11:00 AM CDT Allied Health/Nurse Visit [facility] [facility] [address] [place] [phone] Norma Rowland PA-C [address] [place] [address] 03/01/2025 11:00 AM CDT Office Visit [facility] [place] [phone] Norma Rowland PA-C [address] [place] [address] documented as of this encounter Procedures Procedure Name Priority Date/Time Associated Diagnosis Comments URINALYSIS, AUTO, COMPLETE Routine 02/17/2023 10:00 AM CDT AMS (altered mental status) documented in this encounter Results * URINALYSIS, AUTO, COMPLETE (02/17/2023 10:00 AM CDT) COLOR (U) LIGHT YELLOW 03/18/2023 2:44 PM CDT [facility] Comment:SPECIMEN PROCESSED D URING DOWNTIME TRANSPARENCY CLEAR 03/18/2023 2:44 PM CDT [facility] SPECIFIC GRAVITY (U) 1.010 1.003 - 1.030 03/18/2023 2:44 PM CDT [facility] U PH 6.5 5.0 - 9.0 03/18/2023 2:44 PM CDT [facility] LEUKOCYTES (U) NEGATIVE NEGATIVE 03/18/2023 2:44 PM CDT [facility] NITRITES NEGATIVE NEGATIVE 03/18/2023 2:44 PM CDT [facility] PROTEIN RANDOM (U) NEGATIVE NEGATIVE 03/18/2023 2:44 PM CDT [facility] GLUCOSE (U) NORMAL NORMAL 03/18/2023 2:44 PM CDT [facility] KETONES MG/DL (U) NEGATIVE NEGATIVE 03/18/2023 2:44 PM CDT [facility] UROBILINOGEN NORMAL NORMAL MG/DL 03/18/2023 2:44 PM CDT [facility] BILIRUBIN (U) NEGATIVE NEGATIVE 03/18/2023 2:44 PM CDT [facility] BLOOD (U) NEGATIVE NEGATIVE 03/18/2023 2:44 PM CDT [facility] MUCUS PRESENT 03/18/2023 2:44 PM CDT [facility] HYALINE CASTS 0-5 03/18/2023 2:44 PM CDT [facility] WBC/HPF 0-5 0 - 5 /HPF 03/18/2023 2:44 PM CDT [facility] COMMENT (U) URINE RESULTS 03/18/2023 2:44 PM CDT [facility] URINE SPECIMEN OBTAINED BY CLEAN CATCH PROCEDURE / Unknown 02/17/2023 10:00 AM CDT us Bartolome Brown MD URINE ORDERABLES Final Resul t [facility] [address] [place] [address], documented in this encounter Visit Diagnoses Diagnosis AMS (altered mental status)- Primary documented in this encounter Care Teams Waybill Clerk Relationship Specialty Start Date End Date Abdon Villela MD [address] [place] [address] PCP - General FAMILY PRACTICE 12/17/15 Pernell Vance MD [address] [place] [address] Consulting Physician CARDIOVASCULAR DISEASE 07/05/1901/30 Kamilla Oliveira NP [address] [place] [address] Referring Physician Nurse Practitioner Family 10/08/2104/14 Madan Palomo MD [address] [place] [address] EP Brand Engineer CLINICAL CARDIAC ELECTROPHYSIOLOGY 10/08/21 documented as of this encounter
--- OUTSIDE RECORDS SUMMARY | 2024-06-08 06:09 | XMS_ITS | Encounter Summary ---
Author Organization [facility] Address [facility] [place] [address] [place] [address] Care Team Providers Care Contact Center Analyst Name Role Phone Abdon Villela MD Primary Care Provider [phone] Pernell Vance MD Unavailable UnavailKamilla Lazaro NP Unavailable Unavailable Madan Palomo MD Unavailable [phone] Reason for Referral * Imaging (Emergency) - New Request Specialty Diagnoses / Procedures Referred By Davin humphries Referred To Contact RADIOLOGY Procedures CT ABD+PEL W IV CON ONLY Vani Banegas DO [address] [place] [address] Phone: tel: fax: Referral ID Status Reason Start Date Expiration Date V isits Requested Visits Authorized [id number] New Request 11/27/2023 11/26/2024 1 1 Reason for Visit * Reason Comments Abdominal Pain Encounter Details Date Type Department Care Team (Late st Contact Info) Description 11/27/2023 10:58 AM CDT - 11/27/2023 3:57 PM CDT Emergency [place] [facility] [place] [id number] Vani Banegas DO [address] [place] [address] Abdominal Pain Discharge Disposition: Home or Self Care (Routine Discharge) Social History Tobacco Use Types Packs/Day Years Used Date Smoking Tobacco: Former Cigarettes 1 29.6 0 02/14/1966 - 10/07/1995 Pipe Smokeless Tobacco: Never Alcohol Use Standard Drinks/Week Comments No 0 (1 standard drink = 0.6 oz pur e alcohol) [facility] Utilities Answer Date Recorded In the past 12 months has e [employer], gas, oil, or water [employer] threatened to shut off services in your [...] How often do you attend sabianism or restorationist serv ices? Never 07/27/2023 Do you belong [...] you are drinking? Patient does not drink 4 Q3: How often do you have si x or more drinks on one occasion? Never 07/27/2023 Overall Financial Resource Strain (CARDIA) Answe r Date Recorded How hard is it for you to pa y for the very basics like food, housing, medical care, and heating? Not hard at all 07/27/2023 [facility] [place] of Occupat ional Health - Occupational Stress [...] place to sleep or slept in a jail (including now)? No 07/27/2023 Sex and Gender [...] Sign Reading Time Taken Comments Blood Pressure 143/76 11/27/2023 10:55 AM CDT Pulse 87 11/27/2023 10:55 AM CDT Temperature 37 ??C (98.6 ??F) 11/27/2023 10:55 AM CDT Respiratory Rate 20 11/27/2023 10:55 AM CDT Oxygen Saturation 95% 11/27/2023 10:55 AM CDT Inhaled Oxygen Concentration - - Weight 102.1 kg (225 lb) 11/27/2023 10:55 AM CDT Height 182.9 cm (6') 11/27/2023 10:55 AM CDT Body Mass Index 30.52 11/27/2023 10:55 AM CDT documented in this encounter Functional Status * Are you deaf or do you have serious difficulty hearing Answer Date of Assessment Author Status No 07/27/2023 10:44 AM SAP BUSINESS INTELLIGENCE CONSULTANT Zamzam Zavala R N Active * Are you blind or do you have serious difficulty seeing, even when wearing glasses? Answer Date of Assessment Author Status No 07/27/2023 10:44 AM SAP BUSINESS INTELLIGENCE CONSULTANT Zamzam Zavala R N Active * Do you have serious difficulty walking or climbing stairs? Answer Date of Assessment Author Status Yes 07/27/2023 10:44 AM SAP BUSINESS INTELLIGENCE CONSULTANT Zamzam Zavala R N Active * Do you have difficulty dressing or bathing? Answer Date of Assessment Author Status Yes 07/27/2023 10:44 AM SAP BUSINESS INTELLIGENCE CONSULTANT Zamzam Zavala R N Active * Because of a physical, mental, or emotional condition, do you have difficulty doing errands alone such as visiting a doctor's office or shopping? Answer Date of Assessment Author Status Yes 07/27/2023 10:44 AM SAP BUSINESS INTELLIGENCE CONSULTANT Zamzam Zavala R N Active documented as of this encounter Mental Status * Because of a physical, mental, or emotional condition, do you have serious difficulty concentrating, remembering, or making decisions? Answer Entry Date Author Status No 07/27/2023 10:44 AM SAP BUSINESS INTELLIGENCE CONSULTANT Zamzam Zavala R N Active documented in this encounter Discharge Instructions * Discharge Instructions* Vani Banegas DO - 11/27/2023 3:40 PM CDT Keep Guerra in place until follow-up with urology. Start tamsulosin. * Attachments The following attachments cannot be sent through Care Everywhere. * How to Care for Your Guerra Catheter, Male (Qatari) documented in this encounter Medications at Time [...] as of this encounter ED Notes * Rodolfo Galloway RN - 11/27/2023 10:54 AM CDT Pt presents to the ER per ems from [facility] with c/o abdominal pain. X 3 weeks. Staff states that he has a possible umbilical hernia which wasn't there this morning so contacted physician andwas asked to send to er for eval. * Vani Banegas, - 11/27/2023 10:43 AM CDT Chief Complaint Chief Complaint Patient presents with Abdominal Pain History of Present Illness 78-year-old male [facility]. Patient reports abdominal pain over the past week that is worsening. Nurse call in advance hadstated that the patient had a stool guaiac tested on 10/25/2023 due to abdominal pain which was positive. It does not appear that the patient had any other testing at that time. Patient denies any abdominal surgeries. He reports that he has been having trouble having bowel movements, but has had somebowel movements this week. He reports having an umbilical hernia that appears new or enlarged. 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 07/31/23 Yes Sandra Short NP ferrous sulfate EC 325 (65 Fe) MG tablet Take 1 tablet by mouth daily. Yes Default History Genericprovider furosemide (LASIX) 40 MG tablet Take 1 tablet (40 mg total) by mouth daily. 08/01/23 Yes Sandra Short NP lisinopril (PRINIVIL) 40 MG tablet Take 1 tablet (40 mg total) by mouth daily. Yes Default [...] mg total) by mouth daily. 11/27/23 Yes Vani Banegas DO vitamin B-12 1000 MCG tablet Take 1 tablet (1,000 mcg total) by mouth daily. Yes Doc [facility] Abstract PAST MEDICAL HISTORY: Past Medical History: Diagnosis Date Coronary artery disease Diabetes mellitus ([facility]) Disorder of prostate Hyperlipidemia Hypertension Pacemaker 09/10/2022 [...] and are negative. Physical Exam Filed Vitals: 11/27/23 1055 BP: (!) 143/76 Pulse: 87 Resp: 20 Temp: 98.6 ??F (37 ??C) TempSrc: Temporal SpO2: 95% Weight: 102.1 kg (225 lb) Height: 1.829 m (6') Physical Exam Vitals [...] Palpations: Abdomen is soft. Tenderness: There is abdominal tenderness (severe, diffuse, worse at umbilicus). There is guarding. Hernia: A hernia (umbilicus, purple, small) is present. Neurological: Mental Status: He is alert and oriented to person, place, and time. Psychiatric: Behavior: Behavior normal. Thought Content: Thought content normal. Judgment: Judgment normal. Diagnostic Studies / Procedures ELECTROCARDIOGRAMS: No results found for this visit on 11/27/23. LABORATORY STUDIES: Results for orders placed or performed during the hospital encounter of 11/27/23 CBC W/DIFF AUTOMATED Result Value Ref Range WBC 16.52 (H) 4.00 - 10.80 x10'3/uL RBC 3.78 (L) 4.50 - 6.10 x10'6/uL HGB 10.4 (L) 13.0 - 18.0 G/DL HCT 32.4 (L) 37.0 - 52.0 % MCV 85.7 78.0 - 100.0 FL MCH 27.5 27.0 - 31.0 PG MCHC 32.1 (L) 33.0 - 36.0 G/DL RDW 16.9 (H) 11.5 - 14.5 % PLT 226 150 - 350 x10'3/uL MPV 9.9 7.4 - 10.4 FL CBC COMMENT NORMAL REFERENCE RANGE NOT ESTABLISHED FOR THE PROPORTIONAL LEUKOCYTE DIFFERENTIAL. NEUTROPHILS 87.4 % LYMPHOCYTES 5.7 % MONOCYTES 5.7 % EOSINOPHILS 0.4 % BASOPHILS 0.2 % IMMATURE GRANS 0.6 % NRBC 0.0 % ABS. NEUTROPHILS 14.44 (H) 1.60 - 8.30 x10'3/uL ABS. LYMPHOCYTES 0.94 0.80 - 4.70 x10'3/uL ABS. MONOCYTES 0.94 0.00 - 1.50 x10'3/uL ABS. EOSINOPHILS 0.07 0.00 - 0.40 x10'3/uL ABS. BASOPHILS 0.03 0.00 - 0.20 x10'3/uL ABS. IMMATURE GRANULOCYTES 0.10 (H) 0.00 - 0.03 x10'3/uL ABS. NUCLEATED RBC'S 0.00 0.00 x10'3/uL COMPREHENSIVE METABOLIC PANEL Result Value Ref Range SODIUM S/P/B 139 136 - 145 MMOL/L POTASSIUM S/P/B 4.6 3.5 - 5.1 MMOL/L CHLORIDE S/P/B 103 98 - 107 MMOL/L CO2 27.9 21.0 - 32.0 MMOL/L GLUCOSE 254 (H) 70 - 99 MG/DL BUN 51 (H) 6 - 24 MG/DL CREATININE S/P/B 1.35 (H) 0.70 - 1.30 MG/DL CALCIUM S/P/B 8.9 8.4 - 10.5 MG/DL BILIRUBIN TOTAL S/P/B 0.8 0.2 - 1.0 MG/DL ALKALINE PHOSPHATASE S/P/B 86 45 - 115 U/L AST 33 15 - 37 U/L ALT 29 16 - 63 U/L TOTAL PROTEIN S/P/B 6.6 6.4 - 8.2 G/DL ALBUMIN S/P/B 2.3 (L) 3.4 - 5.0 G/DL ANION GAP 8.1 5.0 - 15.0 MMOL/L OSMOLALITY (CALC) 310 MOSM/KG GFR ESTIMATE 53 (L) >89 ML/MIN/1.73 M2 GFR NOTES GFR REFERENCES: LACTIC ACID W REFLEX (SEPSIS) Result Value Ref Range LACTIC ACID VENOUS 2.1 (H) 0.4 - 2.0 MMOL/L LIPASE Result Value Ref Range LIPASE 19 16 - 77 UNITS/L MAGNESIUM Result Value Ref Range MAGNESIUM 1.6 (L) 1.8 - 2.4 MG/DL URINALYSIS Result Value Ref Range COLOR (U) YELLOW TRANSPARENCY CLEAR SPECIFIC GRAVITY (U) 1.010 1.000 - 1.025 U PH 5.0 5.0 - 8.0 LEUKOCYTES (U) TRACE (A) NEGATIVE NITRITES NEGATIVE NEGATIVE PROTEIN RANDOM (U) NEGATIVE NEGATIVE GLUCOSE (U) NEGATIVE NEGATIVE KETONES (U) NEGATIVE NEGATIVE UROBILINOGEN 0.2 <1.0 EU/DL BILIRUBIN (U) NEGATIVE NEGATIVE BLOOD (U) 3+ (A) NEGATIVE WBC/HPF 0-5 0 - 5 /HPF RBC/HPF 10-20 (A) 0 - 5 /HPF EPI/LPF FEW /LPF BACTERIA (U) 1+ /HPF MUCUS PRESENT LACTIC ACID W REFLEX (SEPSIS) Result Value Ref Range LACTIC ACID VENOUS 1.6 0.4 - 2.0 MMOL/L IMAGING STUDIES CT ABD+PEL W IV CON ONLY Final Result by User, [id number] (11/26 1227) Examination: CT of the abdomen and pelvis with contrast. Exam time: 1158 hours. Clinical history: Abdominal pain. Leukocytosis. Normal serum lipase. Hypoalbuminemia. Comparison: 03/13/2018. Technique: Following the administration of intravenous contrast, spiral scanning was performed through the abdomen and pelvis. Coronal and sagittal reconstructions were performed from the data set. A dose lowering technique was used for this procedure, which may include, but is not limited to, dose reduction techniques, automated exposure control, the use of iterative reconstruction and ALARA/Image Gently techniques. Findings: There is some image degradation due to respiratory motion. Calcified granulomatous scarring at the lung bases is again evident. Allowing for the respiratory motion, the lung bases are otherwise clear. There are trace bilateral pleural effusions, similar to previous. Calcific coronary artery disease again evident. Pacing leads remain in place. Incidental splenule is again evident. Allowing for the respiratory motion, the liver, spleen, gallbladder, pancreas and adrenal glands appear unremarkable. The kidneys appear intrinsically unremarkable. The prostate remains enlarged but shows no dominant focal abnormality. The urinary bladder is markedly distended, measuring approximately 18 cm in craniocaudal dimension and extending to the level of the umbilicus. The urinary bladder is otherwise unremarkable. There is mild to moderate bilateral hydronephrosis and hydroureter, presumably back pressure phenomenon due to the outlet obstruction. A normal-appearing appendix cannot be clearly identified however, there are no secondary findings to suggest appendicitis. Small umbilical hernia is again evident, similar in size and now containing ascitic fluid. There is minimal perihepatic ascites. Generalized infiltrative changes in fat are consistent with anasarca. There is no localized fluid collection, lymphadenopathy or bowel distention. The caliber of the abdominal aorta is normal. There is significant decrease in the extent of subcutaneous and intra-abdominal and intrapelvic fat indicative of weight loss. Superior endplate bowing deformity of L4 on sagittal reconstruction is again evident. Superior endplate bowing deformity of L3 is new since 2018, likely chronic but objectively age indeterminate. Clinical correlation is required. IMPRESSION: 1. Prostatic enlargement with findings consistent with bladder outlet obstruction as described. See text. 2. Findings consistent with anasarca and significant interval weight loss as described. 3. Additional chronic/nonurgent findings as described. Ordered By: VANI BANEGAS Interpreted By: Morgan Thornton MD, 11/27/2023 12:16 PM ED Course / Medical Decision Making Medical Decision Making Patient complaining of abdominal pain. Very tender on exam without specific focus. CT of the abdomen shows extremely enlarged bladder and BPH. Guerra catheter placed with resolution of pain and tenderness. Approximately 1800 mL out. On repeat exam patient still has umbilical hernia, but it is no longer tender and easily reducible. [facility] with prescription for tamsulosin and instructions to follow-up with urology. Amount and/or Complexity of Data Reviewed Independent Historian: caregiver and EMS Labs: ordered. Decision-making details documented in ED Course. Radiology: ordered and independent interpretation performed. Decision-making details documented in ED Course. Details: My independent interpretation of CT shows extremely enlarged bladder Risk Prescription drug management. ED Course as of 11/27/23 1543 ThuNov 27, 2023 1144 WBC(!): 16.52 [JW] 1144 HGB(!): 10.4 [JW] 1157 LACTIC ACID VENOUS(!): 2.1 [JW] 1157 MAGNESIUM(!): 1.6 [JW] 1157 CREATININE S/P/B(!): 1.35 [JW] ED Course User Index [JW] Vani Banegas DO Clinical Impression Benign prostatic hyperplasia with urinary obstruction (Primary) Urinary retention due to benign prostatic hyperplasia Disposition: Discharge I, Vani Banegas DTimothyO., dictated portions of this note using [email or web address] speech recognition software. Occasional wrong word or sound-alike substitutions may have occurred due to the inherent limitationsof voice recognition software. Please read the chart carefully and recognize, using context, where s ubstitutions may have occurred. Vani Banegas DO 11/27/23 1543 documented in this encounter Plan of Treatment Upcoming Encounters Date Type Department Care Team (Latest Contact Info) Description 06/09/2024 2:20 PM SAP BUSINESS INTELLIGENCE CONSULTANT Telemedicine [facility] [address] [place] [phone] Earnest Drake MD [address] [place], [place] [phone] 06/21/2024 1:30 AM SAP BUSINESS INTELLIGENCE CONSULTANT Allied Health/Nurse Visit [facility] [address] [place] [phone] Madan Palomo MD [address] [place], [place] [phone] 03/01/2025 11:00 AM CDT Allied Health/Nurse Visit [facility] [address] [place] [phone] Norma Rowland PA-C [address] [place], [place] [phone] 03/01/2025 11:00 AM CDT Office Visit [facility] [place] [phone] Norma Rowland PA-C [address] [place] [address] documented as of this encounter Procedures Procedure Name Priority Date/Time Associated Diagnosis Comments LACTIC ACID W REFLEX (SEPSIS) TIMED 11/27/2023 1:25 PM CDT HC URINALYSIS AUTO W/MICRO STAT 11/27/2023 12:[address] ABD+PEL W CON STAT 11/27/2023 11:5 7 AM CDT LACTIC ACID W REFLEX (SEPSIS) STAT 11/27/2023 11:25 AM CDT COMPREHENSIVE METABOLIC PANEL STAT 11/27/2023 11:25 AM CDT CBC W/DIFF AUTOMATED STAT 11/27/2023 11:25 AM CDT MAGNESIUM STAT 11/27/2023 11:25 AM CDT LIPASE STAT 11/27/2023 11:25 AM CDT documented in this encounter Results * LACTIC ACID W REFLEX (SEPSIS) (11/27/2023 1:25 PM CDT) LACTIC ACID VENOUS 1.6 0.4 - 2.0 MMOL/L 11/27/2023 1:[address] [facility] 11/27/2023 1:25 PM CDT us Vani Banegas DO LABORATORY Final Result [facility] [address] [place] [address], * (ABNORMAL) URINALYSIS (11/27/2023 12:58 PM CDT) COLOR (U) YELLOW 11/27/2023 1:[address] [facility] TRANSPARENCY CLEAR 11/27/2023 1:[address] [facility] SPECIFIC GRAVITY (U) 1.010 1.000 - 1.025 11/27/2023 1:[address] [facility] U PH 5.0 5.0 - 8.0 11/27/2023 1:[address] [facility] LEUKOCYTES (U) TRACE(A) NEGATIVE 11/27/2023 1:[address] [facility] NITRITES NEGATIVE NEGATIVE 11/27/2023 1:[address] [facility] PROTEIN RANDOM (U) NEGATIVE NEGATIVE 11/27/2023 1:[address] [facility] GLUCOSE (U) NEGATIVE NEGATIVE 11/27/2023 1:[address] [facility] KETONES MG/DL (U) NEGATIVE NEGATIVE 11/27/2023 1:[address] [facility] UROBILINOGEN 0.2 <1.0 EU/DL 11/27/2023 1:[address] [facility] BILIRUBIN (U) NEGATIVE NEGATIVE 11/27/2023 1:[address] [facility] BLOOD (U) 3+(A) NEGATIVE 11/27/2023 1:[address] [facility] WBC/HPF 0-5 0 - 5 /HPF 11/27/2023 1:[address] [facility] RBC/HPF 10-20(A) 0 - 5 /HPF 11/27/2023 1:[address] [facility] EPI/LPF FEW /LPF 11/27/2023 1:[address] [facility] BACTERIA (U) 1+ /HPF 11/27/2023 1:[address] [facility] MUCUS PRESENT 11/27/2023 1:[address] [facility] URINE SPECIMEN OBTAINED BY CLEAN CATCH PROCEDURE / Unknown 11/27/2023 12:58 PM CDT us Vani Banegas DO URINE ORDERABLES Final Result [facility] [address] [place] [address], * CT ABD+PEL W IV CON ONLY (11/27/2023 11:57 AM CDT) Anatomical Region Laterality Modality Abdomen Computed Tomogra phy 11/27/2023 12:1 6 PM CDT Impressions 11/27/2023 12:26 PM CDT IMPRESSION: 1. Prostatic enlargement with findings consistent with bladder outlet obstruction as described. See text. 2. Findings consistent with anasarca and significant interval weight loss as described. 3. Additional chronic/nonurgent findings as described. Ordered By: VANI BANEGAS Interpreted By: Morgan Thornton MD, 11/27/2023 12:16 PM Narrative 11/27/2023 12:26 PM CDT Examination: CT of the abdomen and pelvis with contrast. Exam time: 1158 hours. Clinical history: Abdominal pain. Leukocytosis. Normal serum lipase. Hypoalbuminemia. Comparison: 03/13/2018. Technique: Following the administration of intravenous contrast, spiral scanning was performed through the abdomen and pelvis. Coronal and sagittal reconstructions were performed from the data set. A dose lowering technique was used for this procedure, which may include, but is not limited to, dose reduction techniques, automated exposure control, the use of iterative reconstruction and ALARA/Image Gently techniques. Findings: There is some image degradation due to respiratory motion. Calcified granulomatous scarring at the lung bases is again evident. Allowing for the respiratory motion, the lung bases are otherwise clear. There are trace bilateral pleural effusions, similar to previous. Calcific coronary artery disease again evident. Pacing leads remain in place. Incidental splenule is again evident. Allowing for the respiratory motion, the liver, spleen, gallbladder, pancreas and adrenal glands appear unremarkable. The kidneys appear intrinsically unremarkable. The prostate remains enlarged but shows no dominant focal abnormality. The urinary bladder is markedly distended, measuring approximately 18 cm in craniocaudal dimension and extending to the level of the umbilicus. The urinary bladder is otherwise unremarkable. There is mild to moderate bilateral hydronephrosis and hydroureter, presumably back pressure phenomenon due to the outlet obstruction. A normal-appearing appendix cannot be clearly identified however, there are no secondary findings to suggest appendicitis. Small umbilical hernia is again evident, similar in size and now containing ascitic fluid. There is minimal perihepatic ascites. Generalized infiltrative changes in fat are consistent with anasarca. There is no localized fluid collection, lymphadenopathy or bowel distention. The caliber of the abdominal aorta is normal. There is significant decrease in the extent of subcutaneous and intra-abdominal and intrapelvic fat indicative of weight loss. Superior endplate bowing deformity of L4 on sagittal reconstruction is again evident. Superior endplate bowing deformity of L3 is new since 2018, likely chronic but objectively age indeterminate. Clinical correlation is required. Procedure Note Morgan Thornton MD - 11/27/2023 Examination: CT of the abdomen and pelvis with contrast. Exam time: 1158 hours. Clinical history: Abdominal pain. Leukocytosis. Normal serum lipase.Hypoalbuminemia. Comparison: 03/13/2018. Technique: Following the administration of intravenous contrast, spiralscanning was performed through the abdomen and pelvis. Coronal andsagittal reconstructions were performed from the data set. A dose loweringtechnique was used for this procedure, which may include, but is notlimited to, dose reduction techniques, automated exposure control, the useof iterative reconstruction and ALARA/Image Gently techniques. Findings: There is some image degradation due to respiratory motion.Calcified granulomatous scarring at the lung bases is again evident.Allowing for the respiratory motion, the lung bases are otherwise clear.There are trace bilateral pleural effusions, similar to previous. Calcificcoronary artery disease again evident. Pacing leads remain in place.Incidental splenule is again evident. Allowing for the respiratory motion,the liver, spleen, gallbladder, pancreas and adrenal glands appearunremarkable. The kidneys appear intrinsically unremarkable. The prostateremains enlarged but shows no dominant focal abnormality. The urinarybladder is markedly distended, measuring approximately 18 cm incraniocaudal dimension and extending to the level of the umbilicus. Theurinary bladder is otherwise unremarkable. There is mild to moderatebilateral hydronephrosis and hydroureter, presumably back pressurephenomenon due to the outlet obstruction. A normal- appearing appendixcannot be clearly identified however, there are no secondary findings tosuggest appendicitis. Small umbilical hernia is again evident, similar insize and now containing ascitic fluid. There is minimal perihepaticascites. Generalized infiltrative changes in fat are consistent withanasarca. There is no localized fluid collection, lymphadenopathy or boweldistention. The caliber of the abdominal aorta is normal. There issignificant decrease in the extent of subcutaneous and intra-abdominal andintrapelvic fat indicative of weight loss. Superior endplate bowingdeformity of L4 on sagittal reconstruction is again evident. Superiorendplate bowing deformity of L3 is new since 2018, likely chronic butobjectively age indeterminate. Clinical correlation is required. IMPRESSION: 1. Prostatic enlargement with findings consistent with bladder outletobstruction as described. See text. 2. Findings consistent with anasarca and significant interval weight lossas described. 3. Additional chronic/nonurgent findings as described. Ordered By: VANI BANEGAS Interpreted By: Morgan Thornton MD, 11/27/2023 12:16 [address] Vani Banegas DO CT Final Result * (ABNORMAL) MAGNESIUM (11/27/2023 11:25 AM CDT) MAGNESIUM 1.6(L) 1.8 - 2.4 MG/DL 11/27/2023 11:[address] [facility] 11/27/2023 11:2 5 AM CDT Vani Banegas DO LABORATORY Final Result [facility] [address] [place] [address], * LIPASE (11/27/2023 11:25 AM CDT) LIPASE 19 16 - 77 UNITS/L 11/27/2023 11:[address] [facility] 11/27/2023 11:2 5 AM CDT us Vani Banegas DO LABORATORY Final Result Performing Organization Address [facility] Co de Phone Number [facility] [address] [place] [address], * (ABNORMAL) LACTIC ACID W REFLEX (SEPSIS) (11/27/2023 11:25 AM CDT) LACTIC ACID VENOUS 2.1(H) 0.4 - 2.0 MMOL/L 11/27/2023 11:[address] [facility] 11/27/2023 11:2 5 AM CDT us Vani Banegas DO LABORATORY Final Result Performing Organization Address [facility] Co de Phone Number [facility] [address] [place] [address], * (ABNORMAL) COMPREHENSIVE METABOLIC PANEL (11/27/2023 11:25 AM CDT) SODIUM S/P/B 139 136 - 145 MMOL/L 11/27/2023 11:[address] [facility] POTASSIUM S/P/B 4.6 3.5 - 5.1 MMOL/L 11/27/2023 11:[address] [facility] CHLORIDE S/P/B 103 98 - 107 MMOL/L 11/27/2023 11:[address] [facility] CO2 27.9 21.0 - 32.0 MMOL/L 11/27/2023 11:[address] [facility] GLUCOSE 254(H) 70 - 99 MG/DL 11/27/2023 11:[address] [facility] Comment: FASTING GLUCOSE 100 TO 125 MG/DL IS CONSISTENT WITH IMPAIRED FASTING GLUCOSE. FASTING GLUCOSE >125 MG/DL IS CONSISTENT WITH DIABETES. RANDOM GLUCOSE >200 MG/DL WITH HYPERGLYCEMIC SYMPTOMS IS CONSISTENT WITH DIABETES. PER ADA GUIDELINES BUN 51(H) 6 - 24 MG/DL 11/27/2023 11:[address] [facility] CREATININE S/P/B 1.35(H) 0.70 - 1.30 MG/DL 11/27/2023 11:48 AM [facility] CALCIUM S/P/B 8.9 8.4 - 10.5 MG/DL 11/27/2023 11:48 AM [facility] BILIRUBIN TOTAL S/P/B 0.8 0.2 - 1.0 MG/DL 11/27/2023 11:48 AM [facility] Comment: THIS ASSAY IS NOT RECOMMENDED FOR PATIENTS UNDERGOING TREATMENT WITH ELTROMBOPAG DUE TO THE POTENTIAL FOR FALSELY ELEVATED RESULTS. ALKALINE PHOSPHATASE S/P/B 86 45 - 115 U/L 11/27/2023 11:48 AM [facility] AST 33 15 - 37 U/L 11/27/2023 11:48 AM [facility] ALT 29 16 - 63 U/L 11/27/2023 11:48 AM [facility] TOTAL PROTEIN S/P/B 6.6 6.4 - 8.2 G/DL 11/27/2023 11:48 AM [facility] ALBUMIN S/P/B 2.3(L) 3.4 - 5.0 G/DL 11/27/2023 11:48 AM [facility] ANION GAP 8.1 5.0 - 15.0 MMOL/L 11/27/2023 11:48 AM [facility] OSMOLALITY (CALC) 310 MOSM/KG 024 11:48 AM [facility] Comment:REFERENCE RANGE NOT ESTABLISHED GFR ESTIMATE 53(L) >89 ML/MIN/1. 73 M2 11/27/2023 11:48 AM [facility] GFR NOTES GFR REFERENCE S: 11/27/2023 11:48 AM [facility] Comment: THE ESTIMATED GFR IS [...] ml/min/1.73 m2 G5,KIDNEY FAILURE: <15 ml/min/1.73 m2 11/27/2023 11:2 5 AM CDT us Vani Banegas DO LABORATORY Final Result [facility] [address] [place] [address], * (ABNORMAL) CBC W/DIFF AUTOMATED (11/27/2023 11:25 AM CDT) WBC 16.52(H) 4.00 - 10.80 x10'3/uL 11/27/2023 11:[address] [facility] RBC 3.78(L) 4.50 - 6.10 x10'6/uL 11/27/2023 11:[address] [facility] HGB 10.4(L) 13.0 - 18.0 G/DL 11/27/2023 11:[address] [facility] HCT 32.4(L) 37.0 - 52.0 % 11/27/2023 11:[address] [facility] MCV 85.7 78.0 - 100.0 FL 11/27/2023 11:[address] [facility] MCH 27.5 27.0 - 31.0 PG 11/27/2023 11:[address] [facility] MCHC 32.1(L) 33.0 - 36.0 G/DL 11/27/2023 11:[address] [facility] RDW 16.9(H) 11.5 - 14.5 % 11/27/2023 11:[address] [facility] PLT 226 150 - 350 x10'3/uL 11/27/2023 11:[address] [facility] MPV 9.9 7.4 - 10.4 FL 11/27/2023 11:[address] [facility] CBC COMMENT NORMAL REFERENCE RANGE NOT ESTABLISHED FOR THE PROPORTIONAL LEUKOCYTE DIFFERENTIAL. 11/27/2023 11:[address] [facility] NEUTROPHILS % 87.4 % 11/27/2023 11:[address] [facility] LYMPHOCYTES % 5.7 % 11/27/2023 11:[address] [facility] MONOCYTES % 5.7 % 11/27/2023 11:[address] [facility] EOSINOPHILS % 0.4 % 11/27/2023 11:[address] [facility] BASOPHILS % 0.2 % 11/27/2023 11:[address] [facility] IMMATURE GRANS % 0.6 % 11/27/19 11:[address] [facility] NRBC 0.0 % 11/27/2023 11:[address] [facility] ABS. NEUTROPHILS 14.44(H) 1.60 - 8.30 x10'3/uL 11/27/2023 11:[address] [facility] ABS. LYMPHOCYTES 0.94 0.80 - 4.70 x10'3/uL 11/27/2023 11:[address] [facility] ABS. MONOCYTES 0.94 0.00 - 1.50 x10'3/uL 11/27/2023 11:[address] [facility] ABS. EOSINOPHILS 0.07 0.00 - 0.40 x10'3/uL 11/27/2023 11:[address] [facility] ABS. BASOPHILS 0.03 0.00 - 0.20 x10'3/uL 11/27/2023 11:[address] [facility] ABS. IMMATURE GRANULOCYTES 0.10(H) 0.00 - 0.03 x10'3/uL 11/27/2023 11:[address] [facility] ABS. NUCLEATED RBC'S 0.00 0.00 x10'3/uL 11/27/2023 11:[address] [facility] 11/27/2023 11:2 5 AM CDT Vani Banegas DO LABORATORY Final Result [facility] [address] [place] [address], [place] [phone] documented in this encounter Visit Diagnoses Diagnosis Benign prostatic hyperplasia with urinary obstruction- Primary Urinary retention due to benign prostatic hyperplasia documented in this encounter Administered Medications Inactive Administered Medications - up to 3 most recent administrations Medication Order MAR Action Action Date Dose Rate Site iopamidol (ISOVUE-370) 76 % injection 95 mL 95 mL, Intravenous, IMG once as needed, Contrast, 1 dose, Starting on Thu11/27/23 at 1157, Until Thu11/27/23 at 1158 Given 11/27/2023 11:58 AM CDT 95 mLs sodium chloride 0.9% bolus infusion 1,000 mL 1,000 mL, Intravenous, Administer over 30 Minutes, Once, 1 dose, On Thu11/27/23 at 1115 New Bag 11/27/2023 12:29 PM CDT 1,000 mLs documented in this encounter Active and Recently Administered Medications Times are shown in CDT. Scheduled Medication Order 11/25/2023 11/26/2023 11/27/2023 sodium chloride 0.9% bolus infusion 1,000 mL (COMPLETED) 1,000 mL, Intravenous, Administer over 30 Minutes, Once, 1 dose, On Thu11/27/23 at 1115 1229 (New Bag - Prov ider: Leslye Musa RN)1330 (Infusion Stop Time - Provider: Leslye Musa RN) PRN Medication Order 11/25/2023 11/26/2023 11/27/2023 iopamidol (ISOVUE-370) 76 % injection 95 mL (COMPLETED) 95 mL, Intravenous, IMG once as needed, Contrast, 1 dose, Starting on Thu11/27/23 at 1157, Until 11/27/23 at 1158 1158 (Given - Provid er: Giselle Viramontes, RTR) documented in this encounter Care Teams Contact Center Analyst Relationship Specialty Start Date End Date Abdon Villela MD [address] [place] [address] PCP - General FAMILY PRACTICE 12/17/15 Pernell Vance MD [address] [place] [address] Consulting Physician CARDIOVASCULAR DISEASE 07/05/1901/30 Kamilla Oliveira NP [facility] [place] [address] Referring Physician Nurse Practitioner Family 10/08/2104/14 Madan Palomo MD [address] [place] [address] EP Photographic Equipment Technician CLINICAL CARDIAC ELECTROPHYSIOLOGY 10/08/21 documented as of this encounter
--- OUTSIDE RECORDS SUMMARY | 2024-06-08 06:09 | XMS_ITS | Encounter Summary ---
Author Organization [facility] Address [facility] [place] [address] [place] [address] Care Team Providers Care Painter Touch Up Name Role Phone Abdon Villela MD Primary Care Provider [phone] Pernell Vance MD Unavailable UnavailKamilla Lazaro NP Unavailable Unavailable Madan Palomo MD Unavailable [phone] Reason for Visit * Reason Onset Date Comments Question 09/10/2023 Encounter Details Date Type Department Care Team (Late st Contact Info) Description 09/10/2023 Telephone [facility] [address] [place] [address] Madan Palomo MD [address] [place] [address] Question Social History Tobacco Use Types Packs/Day Years Used Date Smoking Tobacco: Former Cigarettes 1 29.6 0 02/14/1966 - 10/07/1995 Pipe Smokeless Tobacco: Never Alcohol Use Standard Drinks/Week Comments No 0 (1 standard drink = 0.6 oz pur e alcohol) [facility] Utilities Answer Date Recorded In the [...] How often do you attend sikh or cheondoism serv ices? Never 07/27/2023 Do you belong [...] and heating? Not hard at all 07/27/2023 [facility] [place] of Occupat ional Health - Occupational Stress [...] place to sleep or slept in a retirement (including now)? No 07/27/2023 Sex and Gender [...] Assessment Author Status No 07/27/2023 10:44 AM ADAPTIVE PHYSICAL EDUCATION TEACHER Zamzam Zavala A, R N Active * Are you blind or do you have serious difficulty seeing, even when wearing glasses? Answer Date of Assessment Author Status No 07/27/2023 10:44 AM ADAPTIVE PHYSICAL EDUCATION TEACHER Olga Zavalayl A, R N Active * Do you have serious difficulty walking or climbing stairs? Answer Date of Assessment Author Status Yes 07/27/2023 10:44 AM ADAPTIVE PHYSICAL EDUCATION TEACHER Olga Zavalayl A, R N Active * Do you have difficulty dressing or bathing? Answer Date of Assessment Author Status Yes 07/27/2023 10:44 AM ADAPTIVE PHYSICAL EDUCATION TEACHER Olga Zavalayl A, R N Active * [...] documented in this encounter Progress Notes * Arias Case RN - 10/27/2023 3:26 PM CDT E.D history from 08/21/23 states pt at [facility]. I called and spoke to nurse Mayda. She explains that when he came to be a resident there, there was no home monitor brought with him. I explained the patient has an ICD that needs remote monitoring. There will be a [employer] rep in [place] tomorrow 10/28/23. I will have the [employer] rep deliver a new monitor and send us a transmission. We will then schedule transmissions Q 3 months. The monitor will need to stay plugged in by pt bedside. The transmissions will happen automatically. Mayda verbalized understanding. Information given to Yves Crespo of [employer]. * Hilary Calix - 09/24/2023 2:16 PM CDT No response from the family or patient. Our office will no longer attempt to reach the patient. * Hilary Calix - 09/10/2023 11:02 AM CDT Patients home remote letters are coming back from [facility] as moved, no forward information . I called the patients daughter Sherri who asked that I call her brother Amadeo. I called Amadeo patients son. No answer, mail box is full. I called Ashlee gonzalez [id number]. Left a voice message to return a call to our office. documented in this encounter Plan of Treatment Upcoming Encounters Date Type Department Care Team (Latest Contact Info) Description 06/09/2024 2:20 PM ADAPTIVE PHYSICAL EDUCATION TEACHER Telemedicine [facility] Medical Group Multispecialty [facility] [address] [place] [phone] Earnest Drake MD [address] [place], [place] [phone] 06/21/2024 1:30 AM ADAPTIVE PHYSICAL EDUCATION TEACHER Allied Health/Nurse Visit [facility] [address] [place] [address] Madan Palomo MD [address] [place] [address] 03/01/2025 11:00 AM CDT Allied Health/Nurse Visit [facility] [address] [place] [phone] Norma Rowland PA-C [address] [place], [place] [address] 03/01/2025 11:00 AM CDT Office Visit [facility] [address] [place] [phone] Norma Rowland PA-C [address] [place], [place] [address] documented as of this encounter Visit Diagnoses Not on filedocumented in this encounter Care Teams Painter Touch Up Relationship Specialty Start Date End Date [place] [phone] PCP - General FAMILY PRACTICE 12/17/15 [place] [address] Consulting Physician CARDIOVASCULAR DISEASE 07/05/1901/30 Kamilla Oliveira NP [address] [place] [address] Referring Physician Nurse Practitioner Family 10/08/2104/14 Madan Palomo MD [address] [place], [place] [address] EP Radio Frequency Technician CLINICAL CARDIAC ELECTROPHYSIOLOGY 10/08/21 documented as of this encounter
--- OUTSIDE RECORDS SUMMARY | 2024-06-08 06:09 | XMS_ITS | Encounter Summary ---
Author Organization [facility] Address [facility] [place] [address] [place] [address] Care Team Providers Care Divemaster Name Role Phone Abdon Villela MD Primary Care Provider [phone] Pernell Vance MD Unavailable UnavailKamilla Lazaro NP Unavailable Unavailable Madan Palomo MD Unavailable [phone] Encounter Details Date Type Department Care Team (Late st Contact Info) Description 07/21/2023 10:45 AM TREATING PLANT OPERATOR Allied Health/Nurse Visit [facility] [address] [place] [address] Madan Palomo MD [address] [place], [place] [address] Social History Tobacco Use Types Packs/Day Years [...] slept in a m[facility]p (including now)? No 01/17/2023 Sex and Gender [...] Robles RN Active documented in this encounter Progress Notes * Ofelia Dominguez LPN - 07/21/2023 10:45 AM CST Images from the original note were not included. PACEMAKER REMOTE INTERROGATION NAME: Avila Fernandez : 1945 CSN: [id number] DATE OF INTERROGATION: 07/21/2023 DEVICE SPECIFICATIONS ARMOURED CAR ESCORT [employer] DEVICE TYPE BI-VENTRICULAR PACEMAKER EST. BATTERY LIFE OR CURRENT VOLTAGE/GITA VOLTAGE 11.4y LEAD IMPEDENCE TRENDS STABLE ATRIAL PACING % VVIR RV PACING % na BIV/LV PACING % 97.8 COMMENTS ATRIAL ARRHYTHMIA AF BURDEN OFF % LONGEST EPISODE NA ORAL ANTICOAGULATION Eliquis/Apixaban COMMENTS VENTRICULAR ARRHYTHMIA HIGH VENTRICULAR RATES/VT 1 COMMENTS 2s NSVT ALERTS / NURSE COMMENTS Normal device function Possible OptiVol fluid accumulation: 22-Jan-2023 -- ongoing. PHYSICIAN COMMENTS (IF ANY) Cosigned by Madan Palomo MD at 07/29/2023 3:18 PM TREATING PLANT OPERATOR TING PLANT OPERATOR TING PLANT OPERATOR documented in this encounter Plan of Treatment Upcoming Encounters Date Type Department Care Team (Latest Contact Info) Description 06/09/2024 2:20 PM TREATING PLANT OPERATOR Telemedicine [facility] Medical Group Mult[facility]pecialty [facility] [address] [place] [address] Earnest Drake MD [address] [place], [place] [phone] 06/21/2024 1:30 AM TREATING PLANT OPERATOR Allied Health/Nurse Visit [facility] [address] [place] [address] Madan Palomo MD [address] [place] [address] 03/01/2025 11:00 AM CDT Allied Health/Nurse Visit [facility] [address] [place] [address] Norma Rowland PA-C [address] [place], [place] [address] 03/01/2025 11:00 AM CDT Office Visit [facility] [address] [place] [address] Norma Rowland PA-C [address] [place], [place] [address] documented as of this encounter Visit Diagnoses Diagnosis 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, 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 documented in this encounter Additional Health Concerns Infection Onset Date Last Indicated Resolved Time COVID-19 Rule Out 07/27/2023 07/27/2023 07/27/2023 10:47 AM TREATING PLANT OPERATOR documented as of this encounter Care Teams Divemaster Relationship Specialty Start Date End Date Abdon Villela MD [address] [place] [address] PCP - General FAMILY PRACTICE 12/17/15 Pernell Vance MD [address] [place] [address] Consulting Physician CARDIOVASCULAR DISEASE 07/05/1901/30 Kamilla Oliveira NP [address] [place] [address] Referring Physician Nurse Practitioner Family 10/08/2104/14 Madan Palomo MD [address] [place] [address] EP Hvac Technician CLINICAL CARDIAC ELECTROPHYSIOLOGY 10/08/21 documented as of this encounter
--- OUTSIDE RECORDS SUMMARY | 2024-06-08 06:09 | XMS_ITS | Encounter Summary ---
Author Organization [facility] Address [facility] [place] [address] [place] [address] Care Team Providers Care Field Sales Executive Name Role Phone Abdon Villela MD Primary Care Provider Pernell Vance MD Unavailable UnavailKamilla Lazaro NP Unavailable Unavailable Madan Palomo MD Unavailable [phone] Reason for Visit * Reason Onset Date Comments Question 07/20/2023 Encounter Details Date Type Department Care Team (Late st Contact Info) Description 07/02/2023 Telephone [facility] [address] [place] [address] Madan Palomo MD [address] [place] [address] Question Social History Tobacco Use [...] slept in a fci (including now)? No 01/17/2023 Sex and Gender [...] encounter Progress Notes * Hilary Calix - 07/21/2023 11:31 AM CST Returned a call to Chitra with [facility]. Spoke to Rashmi JAMES and explained we received thepatients remote transmission today 07/21/2023. We will start faxing the remote letter to [phone] to [facility]. Rashmi JAMES v/u. TER BOTTOM * Vee Fields - 07/21/2023 11:19 AM CST VM received at 10:31 on 07/21 This is Chitra - I'm one of the nurses at [facility]. We received phone call yesterday in regards to the home pacemaker monitor. We did set this up and would like a call back to confirm you are receiving data Thank you [phone] TER BOTTOM * Hilary Calix - 07/20/2023 11:14 AM CST Called [facility] and spoke to Rashmi JAMES with the patient. Patient did receive the monitor.I asked Rashmi JAMES to complete the set up of the monitor by sending in a remote transmission. Nikolas states they will work on this today. I thanked Rashmi JAMES. TER BOTTOM * Hilary Calix - 07/02/2023 9:51 AM CST Radha JAMES from [facility] called stating they needed to know when the patients next remotetransmission date is. I explained that we did not receive one in May. Radha states the patient was moved to their facility with no monitor. I ordered a new monitor to be shipped to the patient at [facility]. Patient should receive a monitor in 7-10 business days. Radha JAMSE v//u. Patient new residence is: [place] [address] I updated all information into the patients chart. TER BOTTOM documented in this encounter Plan of Treatment Upcoming Encounters Date Type Department Care Team (Latest Contact Info) Description 06/09/2024 2:20 PM PAINTER BOTTOM Telemedicine [facility] [address] [place] [phone] Earnest Drake MD [address] [place], [place] [phone] 06/21/2024 1:30 AM PAINTER BOTTOM Allied [facility] [address] [place] [address] Madan Palomo MD [address] [place] [address] 03/01/2025 11:00 AM CDT Allied Health/Nurse Visit [facility] [place] [phone] Norma Rowland PA-C [address] [place] [address] 03/01/2025 11:00 AM CDT Office Visit [facility] [address] [place] [address] Norma Rowland PA-C [address] [place] [address] documented as of this encounter Visit Diagnoses Not on filedocumented in this encounter Care Teams Field Sales Executive Relationship Specialty Start Date End Date Abdon Villela MD [address] [place] [address] PCP - General FAMILY PRACTICE 12/17/15 Pernell Vance MD [facility] [place] [address] Consulting Physician CARDIOVASCULAR DISEASE 07/05/1901/30 Kamilla Oliveira NP [facility] [place] [address] Referring Physician Nurse Practitioner Family 10/08/2104/14 Madan Palomo MD [address] [place] [address] EP Drop Forger CLINICAL CARDIAC ELECTROPHYSIOLOGY 10/08/21 documented as of this encounter
--- OUTSIDE RECORDS SUMMARY | 2024-06-08 06:09 | XMS_ITS | Encounter Summary ---
Author Organization [facility] Address [facility] [place] [address] [place] [address] Care Team Providers Care Supervisor Fireworks Assembly Name Role Phone Abdon Villela MD Primary Care Provider Pernell Vance MD Unavailable UnavailKamilla Lazaro NP Unavailable Unavailable Madan Palomo MD Unavailable [phone] Reason for Visit * Reason Onset Date Comments Appointment Request 05/05/2023 Encounter Details Date Type Department Care Team (Late st Contact Info) Description 05/05/2023 Telephone [facility] [address] [place] [address] Madan Palomo MD [address] [place] [address] Appointment Request Social History Tobacco Use Types Packs/Day Years [...] slept in a longterm (including now)? No 01/17/2023 Sex and Gender [...] documented in this encounter Progress Notes * Jennifer Pinzon - 05/05/2023 3:07 PM CST Attempted to contact patient to schedule annual f/u in [place]. Received busy signal. Letter sent with appt details. 01/13/24 @ 9:30 AM. TY EXTENSION AGENT documented in this encounter Plan of Treatment Upcoming Encounters Date Type Department Care Team (Latest Contact Info) Description 06/09/2024 2:20 PM COUNTY EXTENSION AGENT Telemedicine [facility] Medical Group Mult[facility]pec[facility]ty [facility] [address] [place] [phone] Earnest Drake MD [address] [place], [place] [phone] 06/21/2024 1:30 AM COUNTY EXTENSION AGENT Allied Health/Nurse Visit [facility] [address] [place] [phone] Madan Palomo MD [address] [place] [address] 03/01/2025 11:00 AM CDT Allied Health/Nurse Visit [facility] [address] [place] [address] Norma Rowland PA-C [address] [place], [place] [address] 03/01/2025 11:00 AM CDT Office Visit [facility] [address] [place] [address] Norma Rowland PA-C [address] [place], [place] [address] documented as of this encounter Visit Diagnoses Not on filedocumented in this encounter Care Teams Supervisor Fireworks Assembly Relationship Specialty Start Date End Date Abdon Villela MD [address] [place] [address] PCP - General FAMILY PRACTICE 12/17/15 Pernell Vance MD [address] [place] [address] Consulting Physician CARDIOVASCULAR DISEASE 07/05/1901/30 Kamilla Oliveira NP [address] [place] [address] Referring Physician Nurse Practitioner Family 10/08/2104/14 Madan Palomo MD [address] [place] [address] EP Nut Chopper CLINICAL CARDIAC ELECTROPHYSIOLOGY 10/08/21 documented as of this encounter
--- OUTSIDE RECORDS SUMMARY | 2024-06-08 06:09 | XMS_ITS | Encounter Summary ---
Author Organization [facility] Address [address] [place] [address]. [place] [address] [place] [address] Care Team Providers Care Clinic Physician Director Name Role Phone Abdon Mendoza MD Primary Care Provider [phone] Pernell Vance MD Unavailable UnavailKamilla Lazaro NP Unavailable Unavailable Madan Palomo MD Unavailable [phone] Reason for Referral * Imaging (Routine) - New Request Specialty Diagnoses / Procedures Referred By Contac t Referred To Contact RADIOLOGY Procedures USE ECHOCARDIOGRAM Siri Phan PA [address] [place] [address] Phone: tel: fax: Referral ID Status Reason Start Date Expiration Date V isits Requested Visits Authorized [id number] New Request 07/27/2023 07/27/2024 1 1 IAC CATH TECH * (Routine) - Canceled Specialty Diagnoses / Procedures Referred By Contac t Referred To Contact Procedures OT eval and treat Siri Phan PA [address] [place] [address] Phone: tel: fax: Referral ID Status Reason Start Date Expiration Date V isits Requested Visits Authorized [id number] Canceled 07/27/2023 07/27/2024 1 1 IAC CATH TECH * (Routine) - Canceled Specialty Diagnoses / Procedures Referred By Contac t Referred To Contact Procedures PT eval and treat Siri Phan PA [address] [place] [phone] Phone: tel: fax: Referral ID Status Reason Start Date Expiration Date V isits Requested Visits Authorized [id number] Canceled 07/27/2023 07/27/2024 1 1 IAC CATH TECH * Imaging (Urgent) - New Request Specialty Diagnoses / Procedures Referred By Contac t Referred To Contact RADIOLOGY Procedures CTA HEAD+NECK Catracho Sims MD [address] [place] [address] Phone: tel: fax: Referral ID Status Reason Start Date Expiration Date V isits Requested Visits Authorized [id number] New Request 07/27/2023 07/27/2024 1 1 IAC CATH TECH * Imaging (Emergency) - New Request Specialty Diagnoses / Procedures Referred By Contac t Referred To Contact RADIOLOGY Procedures CT STROKE(HEAD WO) Catracho Sims MD [address] [place] [address] Phone: tel: fax: Referral ID Status Reason Start Date Expiration Date V isits Requested Visits Authorized [id number] New Request 07/27/2023 07/27/2024 1 1 IAC CATH TECH Reason for Visit * Reason Comments Weakness Stroke Alert Shortness Of Breath Chest Pain * Auth/Cert (Routine) Specialty Diagnoses / Procedures Referred By Contac t Referred To Contact Diagnoses CHF (congestive heart failure) ([facility]) Chest pain Right sided weakness Procedures [place] [address] Phone: tel: fax: Referral ID Status Reason Start Date Expiration Date Visits Re quested Visits Authorized [id number] 1 1 Encounter Details Date Type Department Care Team (Late st Contact Info) Description 07/27/2023 8:21 AM CARDIAC CATH TECH - 07/31/2023 1:31 PM CARDIAC CATH TECH Hospital Encounter [facility] [address] [place] [phone] Catracho Sims MD [address] [place], [place] [id number] Lubna Gant MD [facility] [place], [place] [id number] Weakness; Stroke Alert; Shortness Of Breath ; Chest Pain Discharge Disposition: Retirement Facility Social History Tobacco Use Types Packs/Day Years Used Date Smoking Tobacco: Former Cigarettes 1 29.6 0 02/14/1966 - 10/07/1995 Pipe Smokeless Tobacco: Never Alcohol Use Standard Drinks/Week Comments No 0 (1 standard drink = 0.6 oz pur e alcohol) [facility] Utilities Answer Date Recorded In the past 12 months has e electric, gas, oil, or water [employer] threatened to shut off services in your [...] How often do you attend christianity or orthodox serv ices? Never 07/27/2023 Do you [...] and heating? Not hard at all 07/27/2023 [place] [employer] - Occupational Stress [...] Sign Reading Time Taken Comments Blood Pressure 128/70 07/31/2023 7:00 AM CARDIAC CATH TECH Pulse 60 07/31/2023 7:00 AM CARDIAC CATH TECH Temperature 36.8 ??C (98.3 ??F) 07/31/2023 7:00 AM CS T Respiratory Rate 18 07/31/2023 7:00 AM CARDIAC CATH TECH Oxygen Saturation 95% 07/31/2023 7:00 AM CARDIAC CATH TECH Inhaled Oxygen Concentration - - Weight 101.5 kg (223 lb 12.3 oz) 2023 10:36 AM CARDIAC CATH TECH Height 182.9 cm (6') 07/27/2023 10:36 AM CARDIAC CATH TECH Body Mass Index 30.35 07/27/2023 10:36 AM CARDIAC CATH TECH documented in this encounter Functional Status * Question Answer Date of Assessment Author Status Do you have serious difficulty walking or climbing stairs? Yes 07/27/2023 10:44 AM CARDIAC CATH TECH Zamzam Zavala RN Acti ve * Question Answer Date of Assessment Author Status Do you have difficulty dressing or bathing? Yes 07/27/2023 10:44 AM Zamzam King RN Active Because of a physical, mental, or emotional condition, do you have difficulty doing errands alone such as visiting a doctor's office or shopping? Yes 07/27/2023 10:44 AM Deann King RN Active * Are you deaf or do you have serious difficulty hearing Answer Date of Assessment Author Status No 07/27/2023 10:44 AM CARDIAC CATH TECH Zamzam Zavala R N Active * Are you blind or do you have serious difficulty seeing, even when wearing glasses? Answer Date of Assessment Author Status No 07/27/2023 10:44 AM CARDIAC CATH TECH Zamzam Zavala R N Active * Do you have serious difficulty walking or climbing stairs? Answer Date of Assessment Author Status Yes 07/27/2023 10:44 AM CARDIAC CATH TECH Zamzam Zavala R N Active * Do you have difficulty dressing or bathing? Answer Date of Assessment Author Status Yes 07/27/2023 10:44 AM CARDIAC CATH TECH Zamzam Zavala R N Active * Because [...] serious difficulty concentrating, remembering, or making decisions? No 07/27/2023 10:44 AM Zamzam King RN Active * Because of a physical, mental, or emotional condition, do you have serious difficulty concentrating, remembering, or making decisions? Answer Entry Date Author Status No 07/27/2023 10:44 AM Zmazam King R N Active documented in this encounter Discharge Summaries * Sandra Nunez NP - 07/31/2023 1:31 PM CST Images from the original note were not included. Hospitalist Discharge Summary Patient ID: Avila Crocker. male. [id number] Admit date: 07/27/2023 8:21 AM Discharge date: 07/31/23 Admitting Physician: Lubna Gant MD Primary Care Physician: ABDON MENDOZA MD Discharge Physician: SANDRA NUNEZ NP Discharge Diagnoses: Acute on chronic systolic heart failure Acute hypoxic respiratory failure Chest pain Right shoulder pain Hypertension History of atrial fibrillation s/p pacemaker Non-insulin dependent diabetes Hyperlipidemia Hypokalemia Hypomagnesia Acute on chronic systolic CHF Acute hypoxic respiratory failure -Patient with evidence of CHF with significant lower extremity edema, elevated proBNP, chest x-ray showing edema and bilateral pleural effusions -Prior EF of 35 to 40% -Currently on 2 L nasal cannula satting in the mid 90s, titrate O2 to maintain O2 sats greater than92% -Start Lasix 40 mg IV twice daily -Monitor I's and O's -Low-sodium diet 07/28: repeat echo showing EF 55-60%; moderate tricuspid regurgitation; severe pulmonary hypertension; enlarged IVC; off O2; -3L net loss 07/29: -6L net loss; stop IV furosemide and start oral furosemide 40mg daily Chest pain -Atypical -Resolved prior to arriving to ER -Troponin negative -EKG without any acute ischemic ST changes Right shoulder pain -There are no focal neurological deficits, cranial nerves II through XII are intact, lower extremities are equally weak -Already on Eliquis -Unable to raise right arm due to significant pain -Right shoulder x-ray negative for dislocation or fracture but does show likely calcified tendinitis with moderate degenerative changes -Pain control -Will hold off on MRI brain Hypertension -Resume beta-vin and lisinopril -Hold amlodipine given lower extremity edema History of A-fib status post pacemaker -Resume Coreg and Eliquis for stroke prophylaxis Zvx-kmlxeyp-fwbuywohz diabetes -Hold oral medications, start insulin sliding scale Hyperlipidemia -Resume statin Hospital Course: Avila Crocker is a 78 year old male with past medical history significant for coronary artery disease, diabetes mellitus, disorder of prostate, hyperlipidemia, hypertension and pacemaker who presented with complaint of chest pain/pressure that resolved prior to ER arrival. He also c/o shortness of breath. He was found to be mildly hypoxic with significant lower extremity edema which he reportedhad been getting worse over the past several months. CXR showed edema and bilateral pleural effusions he was started on IV furosemide. He diuresed well with Net loss of 6L of fluid with improvement in the edema. Repeat echo showed EF 55-60% with moderate tricuspid regurgitation, severe pulmonary hypertension and enlarged IVC. His oral diuretic was resumed. He was evaluated by his [facility] and deemed not safe for return at discharge. So he was placed at a SNF facility at discharge. Discharged Condition: Stable Code Status: Prior Indication for Admission: Chief Complaint Patient presents with Weakness Stroke Alert Shortness Of Breath Chest Pain Readmission/Mortality Score at discharge: Low 0-28, Medium 29-58, High >59 LACE+ Score *This score is based on incomplete data Readmission Score: 82* Male Patient: 3 Urgent Admission: 15 Discharge Institution: - Length of Stay: 5 Alternative Level of Care Status: 0 ED Visits in Previous 6 Months: 3 Elective Admission in Previous Year: 6 Comorbidity Score (by age & number of urgent admissions): 50 - This score is not calculated because of inadequate data Consults: TELEHEALTH STROKE CONSULT Operations/Procedures (if any): none Significant Diagnostic Studies: Recent Labs Lab 07/27/23 0833 07/28/23 0436 07/29/2392207/30/23 03007/31/23 0329 WBC 8.05 6.04 9.87* 9.28* 10.25* RBC 3.96* 3.74* 4.29* 4.18* 4.21* HGB 10.5* 10.0* 11.4* 11.0* 11.1* HCT 33.6* 31.5* 36.0* 35.3* 35.5* MCV 84.8 84.2 83.9 84.4 84.3 MCH 26.5* 26.7* 26.6* 26.3* 26.4* MCHC 31.3* 31.7 31.7 31.2* 31.3* PLT 212 204 243 220 214 RDW 18.8* 18.8* 18.6* 18.6* 18.4* MPV 10.9 9.6 10.3 11.1 10.8 NEUC 6.15* 4.13 7.75* 6.52* 7.10* LYMC 1.16 1.22 1.32 1.81 1.94 MONOC 0.57 0.48 0.61 0.78 1.06* EOSC 0.10 0.18 0.13 0.12 0.08 BASOC 0.04 0.02 0.04 0.03 0.03 Recent Labs Lab 07/27/23 0833 07/27/23 0834 07/28/23 0436 07/29/2392207/30/23 03007/31/23 0329 NA 139 -- 140 137 135* 136 K 3.9 -- 3.3* 4.1 3.5 3.8 CL 107 -- 103 100 98 100 CO2 29.0 -- 36.0* 34.0* 33.0* 34.0* AGAP 3.0* -- 1.0* 3.0* 4.0* 2.0* BUN 15 -- 12 17 21* 27* CR 0.66* 0.6 0.62* 0.78 0.73 0.86 GLU 150* -- 99 196* 125* 133* CA 8.7 -- 8.8 8.9 8.9 9.0 TP 6.7 -- -- -- -- -- ALB 3.2* -- -- -- -- -- TBIL 1.1* -- -- -- -- -- ALKP 88 -- -- -- -- -- AST 22 -- -- -- -- -- ALT 17 -- -- -- -- -- Recent Labs Lab 07/28/23 0436 TSH 2.630 Recent Labs Lab 07/27/23 0833 INR 1.6* PTT 38.0* Recent Labs Lab 07/27/23 0833 07/27/23 1450 TROP 37 31 No results for input(s): LACTICACID , PROCT in the last 168 hours. No results for input(s): PH , PCO2 , PO2 , [id number] , BICARBWB , BASEDEFICIT , BASEEXCESS in the last 168 hours. Results for orders placed or performed during the hospital encounter of 02/17/23 URINALYSIS, AUTO, COMPLETE Result Value Ref Range COLOR (U) LIGHT YELLOW TRANSPARENCY CLEAR SPECIFIC GRAVITY (U) 1.010 1.003 - 1.030 U PH 6.5 5.0 - 9.0 LEUKOCYTES (U) NEGATIVE NEGATIVE NITRITES NEGATIVE NEGATIVE PROTEIN RANDOM (U) NEGATIVE NEGATIVE GLUCOSE (U) NORMAL NORMAL KETONES (U) NEGATIVE NEGATIVE UROBILINOGEN NORMAL NORMAL MG/DL BILIRUBIN (U) NEGATIVE NEGATIVE BLOOD (U) NEGATIVE NEGATIVE MUCUS PRESENT HYALINE CASTS 0-5 WBC/HPF 0-5 0 - 5 /HPF COMMENT (U) URINE RESULTS RADIOLOGY: Today, I have reviewed Radiology reports up to this point in the patients current encounter and have incorporated these into the assessment/plan and care of this patient. Echo: SUMMARY: The left ventricular size is normal. Estimated left ventricular ejection fraction is 55-60%. Left ventricular diastolic function is not reliably assessed. The left atrial volume is severely increased (>48 ml/M2). The peak pulmonary artery systolic pressure is estimated to be approximately 67 mmHg. Moderate tricuspid regurgitation. Severe pulmonary hypertension CTH: IMPRESSION: 1. No definite CT evidence of acute intracranial abnormality, as above. 2. Small vessel disease and volume loss. CTA head/neck: IMPRESSION: 1. No evidence of occlusion of the proximal major segments of the [place]. 2. No hemodynamically significant stenosis in the neck. 3. Multifocal intracranial and extracranial atherosclerotic disease, as detailed above. 4. Partially imaged pleural effusions and probable pulmonary edema. CXR: IMPRESSION: 1. Cardiomegaly with pulmonary vascular congestion. 2. Small bilateral pleural effusions. XR shoulder: IMPRESSION: 1) No acute bony abnormalities. Moderate degenerative changes and findings suggestive of calcified tendinitis. Objective: Filed Vitals: 07/30/23 2051 07/30/23 2223 07/31/23 0354 07/31/23 0700 BP: 99/44 116/56 128/70 Pulse: 62 61 60 60 Resp: 20 18 Temp: 98 ??F (36.7 ??C) 97.4 ??F (36.3 ??C) 98.3 ??F (36.8 ??C) TempSrc: Oral Oral Oral SpO2: 95% 95% 95% Weight: Height: Physical Exam: GENERAL: NAD, alert and cooperative HEENT: NC/AT. EOMI NECK: Supple, trachea midline CVS: Normal S1 and S2, no murmurs appreciated RESP: CTAB, no wheeze GI: Soft, nondistended, nontender. No guarding EXTREMITIES: No edema NEURO: CN II-XII grossly intact. AAOx3 SKIN: Skin normal color, texture PSYCHIATRIC: Mood stable, normal affect Discharge Medications: Medication List START taking these medications Morning Afternoon Evening Bedtime As Needed carvedilol 6.25 MG tablet Commonly known as: COREG Take 1 tablet (6.25 mg total) by mouth 2 (two) times daily. Last time this was given: 6.25 mg on July 31, 2023 8:11 AM Signed by: Sandra Nunez NP furosemide 40 MG tablet Commonly known as: LASIX Start taking on: August 01, 2023 Take 1 tablet (40 mg total) by mouth daily. Last time this was given: 40 mg on July 31, 2023 8:11 AM Signed by: Sandra Nunez NP potassium chloride CR 20 MEQ tablet Commonly known as: KLOR-CON M Start taking on: August 01, 2023 Take 1 tablet (20 mEq total) by mouth daily. Last time this was given: 40 mEq on July 31, 2023 8:11 AM Signed by: Sandra Nunez NP CONTINUE taking these medications Morning Afternoon Evening Bedtime As Needed acetaminophen 500 MG tablet Commonly known as: TYLENOL Take 2 tablets (1,000 mg total) by mouth every 6 (six) hours as needed for Pain. Last time this was given: 650 mg on July 30, 2023 6:03 PM apixaban 5 MG tablet Commonly known as: Eliquis Take 1 tablet (5 mg total) by mouth 2 (two) times daily. Last time this was given: 5 mg on July 31, 2023 8:11 AM Signed by: Dr. Madan Palomo MD atorvastatin 80 MG tablet Commonly known as: LIPITOR Take 1 tablet (80 mg total) by mouth nightly at bedtime. Last time this was given: 80 mg on July 30, 2023 8:49 PM lisinopril 40 MG tablet Commonly known as: PRINIVIL Take 1 tablet (40 mg total) by mouth daily. Last time this was given: 40 mg on July 31, 2023 8:11 AM magnesium oxide 400 (241.3 Mg) MG tablet Commonly known as: MAG-OX Take 1 tablet (400 mg total) by mouth daily. Last time this was given: 400 mg on July 31, 2023 8:11 AM metFORMIN 1000 MG tablet Commonly known as: GLUCOPHAGE Take 1 tablet (1,000 mg total) by mouth 2 (two) times daily. nitroglycerin 0.4 MG SL tablet Commonly known as: NITROSTAT Place 1 tablet (0.4 mg total) under the tongue every 5 (five) minutes as needed for Chest Pain. polyethylene glycol 17 GM/SCOOP powder Commonly known as: GLYCOLAX Take 17 g by mouth daily as needed (constipation). vitamin B-12 1000 MCG tablet Commonly known as: CYANOCOBALAMIN Take 1 tablet (1,000 mcg total) by mouth daily. STOP taking these medications amLODIPine 5 MG tablet Commonly known as: NORVASC glipiZIDE 10 MG tablet Commonly known as: GLUCOTROL Medications Discontinued during this hospitalization: Medications Discontinued During This Encounter Medication Reason amLODIPine 2.5 MG tablet Error ATORVASTATIN 80 MG tablet Error lisinopril 40 MG tablet Error nitroGLYCERIN 0.4 MG SL tablet Error enoxaparin (LOVENOX) 40 MG/0.4ML syringe 40 mg Ordering Physician carvedilol (COREG) tablet 6.25 mg potassium chloride CR (KLOR-CON M) tablet 20 mEq magnesium oxide (MAG-OX) tablet 400 mg furosemide (LASIX) injection 40 mg Ordering Physician potassium chloride CR (KLOR-CON M) tablet 40 mEq furosemide (LASIX) tablet 40 mg glipiZIDE 10 MG tablet Stop Taking at Discharge amLODIPine (NORVASC) 5 MG tablet Stop Taking at Discharge furosemide (LASIX) tablet 40 mg Patient Discharge potassium chloride CR (KLOR-CON M) tablet 40 mEq Patient Discharge magnesium oxide (MAG-OX) tablet 400 mg Patient Discharge carvedilol (COREG) tablet 6.25 mg Patient Discharge lisinopril (PRINIVIL) tablet 40 mg Patient Discharge atorvastatin (LIPITOR) tablet 80 mg Patient Discharge apixaban (ELIQUIS) tablet 5 mg Patient Discharge insulin lispro (HUMALOG) injection 0-12 Units Patient Discharge acetaminophen (TYLENOL) tablet 650 mg Patient Discharge polyethylene glycol (GLYCOLAX) packet 17 g Patient Discharge ondansetron (ZOFRAN) injection 4 mg Patient Discharge Patient Instructions: Activity: as tolerated. Diet: No diet orders on file An opioid may be been prescribed on discharge. Opioid medications are sometimes used for pain management or other conditions. Examples of these medications include, but are not limited to tramadol, codeine, hydrocodone, oxycodone, morphine, and fentanyl. These medications carry the risk of addiction. They should be used in as low a dose and for as short a period as possible. Another risk with opioid medications is they can cause your breathing to slow or stop. This risk is increased if you are also on sedating medications or using alcohol. Opioid antagonists can be used in an emergency by your family or friends to try to reverse the decreased breathing. You can get an opioid antagonist (such as naloxone) and instructions for its use from any pharmacy in [place]--ask the pharmacist. Although a prescription from your doctor is not required in [place], you may ask for a prescription. Follow-up appointments: Future Appointments Date Time Provider Department Center 10/23/2023 2:30 PM [facility] 01/13/2024 9:30 AM Madan Palomo MD [facility] 01/13/2024 9:30 AM [facility] Abdon Mendoza MD [address] [place] [phone] Go on 07/31/2023 The nurse practioner from [facility] will see you while you are in [facility]. TIME SPENT ON DISCHARGE: I have spent > 31 minutes performing discharge services today. This time includes my time spent on this note preparation including discharge documentation, discharge instructions, final orders, ordering prescriptions, and communication to social work. SANDRA NUNEZ NP 07/31/2023 4:11 PM Cosigned by Lubna Gant MD at 07/31/2023 6:49 PM CARDIAC CATH TECH IAC CATH TECH IAC CATH TECH documented in this encounter Discharge Instructions * Discharge Instructions* Fabian Campa RN - 07/31/2023 11:29 AM CARDIAC CATH TECH CARDIAC LOW CHOLESTEROL DIET ACTIVITY TOLERATED PT AND OT EVALUATE AND TREAT NOTIFY DOCTOR IF YOU EXPERIENCE ANY OF THE BELOW SIGNS OR SYMPTOMS -CHEST PAIN -DIARRHEA WITH ANTIBIOTIC USE -EXCESSIVE BLEEDING -FEVER OVER 100 FOR 24 HOURS -FEVER OVER 101 -PAIN MED NOT EFFECTIVE -PERSISTENT VOMITING -SHORTNESS OF BREATH -URINARY BURNING OR FREQUENCY -PAIN OR REDNESS AT YOUR IV SITE -ABDOMINAL PAIN DO NOT TAKE PAIN MEDS ON AN EMPTY STOMACH. NO DRINKING ALCOHOL OR DRIVING WHILE TAKING PAIN MEDS. PAIN MEDS ARE CONSTIPATING, INCREASE FLUIDS AND GET AN OVER THE COUNTER STOOL SOFTENER AND/OR A MILD LAXATIVE IF NEEDED. IAC CATH TECH IAC CATH TECH * Attachments The following attachments cannot be sent through Care Everywhere. * Chest Pain Discharge Instructions ([place]) * Carvedilol, ADULT ([place]) * Furosemide, ADULT ([place]) * Potassium Chloride, ADULT ([place]) documented in this encounter Medications at Time [...] as of this encounter Progress Notes * Olivia Cervantes, UAT TESTER - 07/31/2023 12:10 PM CST 07/31/23 0851 Therapy Visit Ordering Provider Lubna Gant MD PT Received On 07/31/23 Subjective patient in bed; agrees to get up for therapy treatment. patient has student nurse today. Reason for admission neurological deficit present Verified Two Patient Identifiers Yes Patient consents to therapy Yes Acute Inpatient PT Time Calculation PT Start Time 08 PT Stop Time 0846 PT Time Calculation (min) 24 min Precautions General Precautions Bed Alarm;Chair Alarm;Fall Risk PPE Used Gloves Instructed on Precautions Yes;Needs reinforcement and education Pain Pain No (patient had no pain complaints today, when asked.) Activity Tolerance Endurance Quality Fair Limiting Factors to Endurance Acute deconditioning;Weakness Activity Tolerance Comments tolerated supine to sit, bed to commode transfer, toileting, assist with hygiene and gown change, then ambulated before sitting in chair. Cognition Overall Cognitive Status WFL Orientation Level Oriented to person;Oriented to place Bed Mobility Supine to Sit Min assist to left Sit to Supine YUMIKO (seated in chair after treatment) TRANSFERS Sit to Stand Min assist (wheeled walker, gait belt, and min v.c.) Bed to Chair Contact guard assist;Min assist (wheeled walker, gait belt, and min v.c.) patient transferred bed to commode; he required assist for hygiene and to don depends and clean gown. Gait Gait Assistance Contact guard assist;Min assist;With gait belt (had second person stand-by, in case chair was needed.) Assistive Device 2 Wheeled walker Distance Ambulated (ft) 30 ft Pattern Shuffle steps (stooped posture) Balance Sitting - Static SBA Sitting - Dynamic Min Assist Standing - Static CGA;Min Assist;Support of both upper extremities Standing - Dynamic CGA;Min Assist;Support of both upper extremities Discharge Recommendation PT Recommendation PT at intermediate [facility] PT Equipment Recommended 2 Wheeled walker Plan Progress Progressing toward goals PT Frequency Daily PT - Next Appointment 08/01/23 End of Session End of Session Safety Chair alarm set/activated;Call light within reach;Nursing aware of session Interdisciplinary Collaboration student nurse OLIVIA CERVANTES PTA IAC CATH TECH IAC CATH TECH * Michael Bedoya, OTR - 07/31/2023 10:07 AM CSTSummary: OT TREATMENT Occupational Therapy Treatment Note Activity recommendations for nursing staff: UP TO CHAIR WITH 2WW AND 1-2A Discharge Recommendation: OT Recommendation: (P) OT at intermediate [facility] OT Equipment Recommended: (P) Currently has DME in Place, 2 Wheeled walker 07/31/23 1100 Therapy Visit OT Received On 07/31/23 OT Evaluation Completed on 07/28/23 Treatment Day 3 Reason for admission neurological deficit present Ordering Provider Lubna Gant MD Verified Two Patient Identifiers Yes Patient consents to therapy Yes Acute Inpatient OT Time Calculation OT Start Time 1007 OT Stop Time 1030 OT Time Calculation (min) 23 min Precautions General Precautions Bed Alarm;Chair Alarm;Fall Risk PPE Used Gloves Instructed on Precautions Yes;Needs reinforcement and education Subjective Subjective Per RN pt okay to see this date. Pt seated in chair upon OT entry and was agreeable to participate in skilled OT session with encouragement. Pt was noted to perseverate during conversationon how therapy does not work, and he was able to walk prior to admission, and that he is never coming to the hospital for help again. Pt was offered words of encouragement but continued to perseverate. Pain Pain Patient does not offer or c/o pain Activity Tolerance Endurance Tolerates 10 - 20 min activity with rests Endurance Quality Fair Limiting Factors to Endurance Acute deconditioning;Weakness Activity Tolerance Comments Patient tolerated supine to sit, sit><stand, ambulation in room, used commode, and sat in bedside chair afterwards. Cognition Overall Cognitive Status YUMIKO Arousal/Alertness Appropriate responses to stimuli Attention Span Appears intact Memory Decreased recall of precautions;Decreased recall of recent events;Decreased short term memory Orientation Level Oriented to person;Oriented to place;Oriented to situation Following Commands Follows one step commands with repetition Safety Judgment Decreased awareness of need for safety Awareness of Errors Assistance required to correct errors made Deficits Decreased awareness of deficits Problem Solving Assistance required to implement solutions Motor Planning Appears intact Perseveration Perseverates during conversation Initiation Cues to initiate tasks Other (Comment) Per patient 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 Responds better if talking eye to eye without yelling because this seemed to agitiate patient. ADL Toileting Assistance Maximal Toileting Deficit Setup;Verbal cueing;Supervision/safety;Bedside commode;Clothing management up;Clothing management down;Perineal hygiene Bed Mobility Supine to Sit YUMIKO (seated in chair upon entry) Sit to Supine YUMIKO (seated in chair after treatment.) Functional Transfers Sit to Stand Max assist Toilet Transfers Max assist Functional Mobility CGA Other (Comment) 2ww, gaitbelt Balance Sitting - Static SBA Sitting - Dynamic SBA Standing - Static CGA;Assist of 2 Persons;Support of both upper extremities Standing - Dynamic CGA;Assist of 2 Persons;Support of both upper extremities OT Assessment OT Assessment Pt noted to be easily agitated during session. Pt perseverates during conversation about how he is worse since he came here but is not sick. Pt continues to require increased assistancefor transfers and ADLs, and may benefit from further OT treatment Discharge Recommendation OT Recommendation OT at intermediate facility OT Equipment Recommended Currently has DME in Place;2 Wheeled walker Barriers to Community Discharge Safety;Cognition;Memory Plan OT Treatment/Intervention Self-care training;Therapeutic exercises;Therapeutic activities;Functional activity;Safety;Patient/family training Progress Progressing toward goals OT Frequency 3 times/week;5 times/week OT - Next Appointment 08/01/23 If this is the last treatment note, it will serve as the discharge summary Yes End of Session End of Session Safety Chair alarm set/activated;Call light within reach;Nursing aware of session;Transfer status education Interdisciplinary Collaboration RN, visitor services technician HALEIGH Enriquez/John, CLT IAC CATH TECH * Shari Retana RN - 07/30/2023 9:58 PM CST Problem: Discharge Planning Goal: Knowledge [...] of new skin breakdown Outcome: Progressing Problem: Reduced risk for falls/injury Goal: Reduced Risk for Falls/Injury Outcome: Progressing IAC CATH TECH * Fabian Campa RN - 07/30/2023 4:19 PM CST Problem: Pain control/comfort Goal: Promote pain control/comfort Outcome: Progressing Problem: Skin integrity, Impaired-wound Goal: Absence of new skin breakdown Outcome: Progressing Problem: Skin integrity, Impaired-wound Goal: Evidence of wound healing Outcome: Progressing Problem: Skin integrity, Impaired-pressure injury/ulcer Goal: Absence of new skin breakdown Outcome: Progressing Problem: Skin integrity, Impaired-pressure injury/ulcer Goal: Evidence of pressure injury/ulcer healing Outcome: Progressing Problem: Skin integrity, at risk Goal: Absence of new skin breakdown Outcome: Progressing Problem: Moisture associated skin impairment Goal: Reduce moisture exposure Outcome: Progressing Problem: Moisture associated skin impairment Goal: Evidence of wound healing Outcome: Progressing Problem: Moisture associated skin impairment Goal: Evidence of pressure injury/ulcer healing Outcome: Progressing Problem: Moisture associated skin impairment Goal: Absence of new skin breakdown Outcome: Progressing IAC CATH TECH * Giselle Roberts - 07/30/2023 3:57 PM CST 07/30/23 1556 Interdisciplinary Group Conference Team Members Present Physician;Case/Care management;Nursing;PT/OT;Pharmacy;Dietary;Curtain Stretcher Barriers to Discharge Barriers Test Pending;Mobility Progression Needs Patient expects to be discharged to: [facility] Dc to [facility] 07/31/23 IAC CATH TECH * Sandra Nunez NP - 07/30/2023 1:33 PM CST Hospitalist Service Progress Note Chief Complaint : Weakness, Stroke Alert, Shortness Of Breath , and Chest Pain Admit date: 07/27/2023 8:21 AM Subjective: -no acute overnight events -Seen and examined today sitting up in bed with meal tray. He reports doing well. -He is awaiting placement and would like placement near [facility] Course: Avila Crocker is a 78 year old male with past medical history significant for coronary artery disease, diabetes mellitus, disorder of prostate, hyperlipidemia, hypertension and pacemaker who presented with complaint of chest pain/pressure that resolved prior to ER arrival. He also c/o shortness of breath. He was found to be mildly hypoxic with significant lower extremity edema which he reportedhad been getting worse over the past several months. CXR showed edema and bilateral pleural effusions he was started on IV furosemide. He diuresed well with Net loss of 6L of fluid with improvement in the edema. Repeat echo showed EF 55-60% with moderate tricuspid regurgitation, severe pulmonary hypertension and enlarged IVC. Objective: Filed Vitals: 07/30/23 0259 07/30/23 0639 07/30/23 1010 07/30/23 1510 BP: 121/61 122/63 118/57 122/62 Pulse: (!) 59 60 62 Resp: 16 16 16 16 Temp: 97.5 ??F (36.4 ??C) 97.8 ??F (36.6 ??C) 97.8 ??F (36.6 ??C) 97.9 ??F (36.6 ??C) TempSrc: Oral Oral Oral Oral SpO2: 96% 96% 96% 98% Weight: Height: Intake/Output Summary (Last 24 hours) at 07/30/2023 1514 Last data filed at 07/30/2023 0818 Gross per 24 hour Intake 480 ml Output 2100 ml Net -1620 ml Physical Exam: General: NAD, alert and cooperative HEENT: NC/AT. EOMI Neck: Supple, trachea midline CVS: Normal S1 and S2, no murmurs appreciated, +1 edema bilateral lower extremities Respiratory: CTAB, no wheeze Gastrointestinal: Soft, nondistended, nontender. No guarding MSK: Normal ROM Neurological: CN II-XII grossly intact. AAOx3 SKIN: Skin normal color, texture Psychiatric: Mood stable, normal affect CURRENT MEDICATIONS: Scheduled Meds: apixaban 5 mg Oral BID atorvastatin 80 mg Oral Nightly at bedtime carvedilol 6.25 mg Oral BID furosemide 40 mg Oral Daily insulin lispro 0-12 Units Subcutaneous 4x Daily AC and at bedtime lisinopril 40 mg Oral Daily magnesium oxide 400 mg Oral BID potassium chloride 40 mEq Oral Daily Continuous Infusions: PRN Meds:.acetaminophen, ondansetron, polyethylene glycol RECENT RESULTS: Recent Labs Lab 07/28/23 0436 07/29/23 0923 07/30/23 0305 WBC 6.04 9.87* 9.28* HGB 10.0* 11.4* 11.0* PLT 204 243 220 Recent Labs Lab 07/27/23 0833 07/28/23 0436 07/29/23 0907/30/23 0305 CL 107 < > 100 98 CO2 29.0 < > 34.0* 33.0* INR 1.6* -- -- -- < > = values in this interval not displayed. RADIOLOGY: Today, I have reviewed Radiology reports up to this point in the patients current encounter and have incorporated these into the assessment/plan and care of this patient. Echo: SUMMARY: The left ventricular size is normal. Estimated left ventricular ejection fraction is 55-60%. Left ventricular diastolic function is not reliably assessed. The left atrial volume is severely increased (>48 ml/M2). The peak pulmonary artery systolic pressure is estimated to be approximately 67 mmHg. Moderate tricuspid regurgitation. Severe pulmonary hypertension CTH: IMPRESSION: 1. No definite CT evidence of acute intracranial abnormality, as above. 2. Small vessel disease and volume loss. CTA head/neck: IMPRESSION: 1. No evidence of occlusion of the proximal major segments of the [place]. 2. No hemodynamically significant stenosis in the neck. 3. Multifocal intracranial and extracranial atherosclerotic disease, as detailed above. 4. Partially imaged pleural effusions and probable pulmonary edema. CXR: IMPRESSION: 1. Cardiomegaly with pulmonary vascular congestion. 2. Small bilateral pleural effusions. XR shoulder: IMPRESSION: 1) No acute bony abnormalities. Moderate degenerative changes and findings suggestive of calcified tendinitis. LAB: Recent Labs Lab 07/27/2383207/27/2334 07/28/2343507/29/2392207/30/23 0305 NA 139 -- 140 137 135* K 3.9 -- 3.3* 4.1 3.5 CL 107 -- 103 100 98 CO2 29.0 -- 36.0* 34.0* 33.0* AGAP 3.0* -- 1.0* 3.0* 4.0* BUN 15 -- 12 17 21* CR 0.66* 0.6 0.62* 0.78 0.73 GLU 150* -- 99 196* 125* CA 8.7 -- 8.8 8.9 8.9 MAGNESIUM -- -- 1.5* 1.7 1.7 Recent Labs Lab 07/27/2333 07/28/23 0436 07/29/23 0907/30/23 0305 WBC 8.05 6.04 9.87* 9.28* RBC 3.96* 3.74* 4.29* 4.18* HGB 10.5* 10.0* 11.4* 11.0* HCT 33.6* 31.5* 36.0* 35.3* MCV 84.8 84.2 83.9 84.4 MCH 26.5* 26.7* 26.6* 26.3* MCHC 31.3* 31.7 31.7 31.2* PLT 212 204 243 220 RDW 18.8* 18.8* 18.6* 18.6* MPV 10.9 9.6 10.3 11.1 No results for input(s): CPK in the last 168 hours. Recent Labs Lab 07/27/23 0833 INR 1.6* PTT 38.0* Invalid input(s): ABG Recent Labs Lab 07/27/23 0833 07/27/23 1450 TROP 37 31 No results for input(s): PH , PCO2 , PO2 , [id number] , BICARBWB , BASEDEFICIT , BASEEXCESS in the last 168 hours. Assessment / Plan: Acute on chronic systolic heart failure Acute hypoxic respiratory failure Chest pain Right shoulder pain Hypertension History of atrial fibrillation s/p pacemaker Non-insulin dependent diabetes Hyperlipidemia Hypokalemia Hypomagnesia Acute on chronic systolic CHF Acute hypoxic respiratory failure -Patient with evidence of CHF with significant lower extremity edema, elevated proBNP, chest x-ray showing edema and bilateral pleural effusions -Prior EF of 35 to 40% -Currently on 2 L nasal cannula satting in the mid 90s, titrate O2 to maintain O2 sats greater than92% -Start Lasix 40 mg IV twice daily -Monitor I's and O's -Low-sodium diet 07/28: repeat echo showing EF 55-60%; moderate tricuspid regurgitation; severe pulmonary hypertension; enlarged IVC; off O2; -3L net loss 07/29: -6L net loss; stop IV furosemide and start oral furosemide 40mg daily Chest pain -Atypical -Resolved prior to arriving to ER -Troponin negative -EKG without any acute ischemic ST changes Right shoulder pain -There are no focal neurological deficits, cranial nerves II through XII are intact, lower extremities are equally weak -Already on Eliquis -Unable to raise right arm due to significant pain -Right shoulder x-ray negative for dislocation or fracture but does show likely calcified tendinitis with moderate degenerative changes -Pain control -Will hold off on MRI brain Hypertension -Resume beta-vin and lisinopril -Hold amlodipine given lower extremity edema History of A-fib status post pacemaker -Resume Coreg and Eliquis for stroke prophylaxis Fpt-ifeyden-lgyjsvgts diabetes -Hold oral medications, start insulin sliding scale Hyperlipidemia -Resume statin Inpatient Full code Eliquis for DVT prophylaxis Patient Contact(s): Extended Emergency Contact Information Primary Emergency Contact: Sherri Phan Mobile Relation: Daughter Preferred language: [place] [employer] needed? No Secondary Emergency Contact: Amadeo Crocker Mobile Relation: Son Preferred language: [place] [employer] needed? No SANDRA NUNEZ NP 07/30/2023 3:14 PM Cosigned by Lubna Gant MD at 07/30/2023 7:47 PM CARDIAC CATH TECH IAC CATH TECH IAC CATH TECH * GWENDOLYN Gil - 07/30/2023 12:30 PM CST 1116 - 1130 OT attempted. Patient was in bed and encouraged to get up with therapy for lunch. Patient was confused and agitated. He refused to participate. Patient stated repeatedly he was going to lose it and asked why he was not being informed of anything that pertains to his life. At one pointthe patient asked what floor we were on. He then stated he could not jump because he is in a [facility] and he believes in [place]. Patient also stated, I'm not going to hurt anybody but mentally I just can't do this. He indicated he felt he was tricked in to signing papers and that is howhe got in to all this. JACOB CIFUENTES and Malena Eli RN were informed. Patient had indicated he is [facility] [place] and Fr. Bryan Moore was informed patient may benefit from a visit. IAC CATH TECH * Olivia Cervantes PTA - 07/30/2023 11:18 AM CST Attempted PT treatment for several minutes; patient refused to participate even with much encouragement. Notified RN that patient was agitated and refusing, as well as he had mentioned that everyone was out to get him and wondered why he was being kept in senior care. Patient also mentioned that he should just end it and asked how many floors up we were, then looked at the window. Soon after, patient regretted having said that. Patient was assisted with scooting up into bed and elevating BLE'S on a pillow, as he reported he was having pain in right heel. RN was notified of this information. OLIVIA CERVANTES PTA IAC CATH TECH IAC CATH TECH * Shari Retana RN - 07/30/2023 1:51 AM CST Problem: Discharge Planning Goal: Knowledge of discharge instructions Outcome: Progressing Problem: Pain control/comfort Goal: Promote pain control/comfort Outcome: Progressing Problem: Skin integrity, Impaired-pressure injury/ulcer Goal: Absence of new skin breakdown Outcome: Progressing Goal: Evidence of pressure injury/ulcer healing Outcome: Progressing Problem: Skin integrity, at risk Goal: Absence of new skin breakdown Outcome: Progressing Problem: Reduced risk for falls/injury Goal: Reduced Risk for Falls/Injury Outcome: Progressing Goal: Reduced Risk of Confusion (Acute vs Chronic) Outcome: Progressing Goal: Reduced Risk of Altered Elimination Outcome: Not Progressing IAC CATH TECH * Sandra Nunez NP - 07/29/2023 1:27 PM CST Hospitalist Service Progress Note Chief Complaint : Weakness, Stroke Alert, Shortness Of Breath , and Chest Pain Admit date: 07/27/2023 8:21 AM Subjective: -no acute overnight events -Seen and examined today sitting up in bed. He reports feeling much better today and denies shortness of breath. He reports his legs are feeling so much better and believes the fluids is almost gone. -He has been weaned off oxygen and is on room air Hospital Course: Avila Crocker is a 78 year old male with past medical history significant for coronary artery disease, diabetes mellitus, disorder of prostate, hyperlipidemia, hypertension and pacemaker who presented with complaint of chest pain/pressure that resolved prior to ER arrival. He also c/o shortness of breath. He was found to be mildly hypoxic with significant lower extremity edema which he reportedhad been getting worse over the past several months. CXR showed edema and bilateral pleural effusions he was started on IV furosemide. He diuresed well with Net loss of 6L of fluid with improvement in the edema. Repeat echo showed EF 55-60% with moderate tricuspid regurgitation, severe pulmonary hypertension and enlarged IVC. Objective: Filed Vitals: 07/29/23 0620 07/29/23 0800 07/29/23 1200 07/29/23 1513 BP: 137/75 135/73 128/60 (!) 154/75 Pulse: 61 60 60 60 Resp: 18 18 16 16 Temp: 97.5 ??F (36.4 ??C) 97.6 ??F (36.4 ??C) 97.8 ??F (36.6 ??C) 98.2 ??F (36.8 ??C) TempSrc: Oral SpO2: 98% 96% 96% 97% Weight: Height: Intake/Output Summary (Last 24 hours) at 07/29/2023 1627 Last data filed at 07/29/2023 1229 Gross per 24 hour Intake 870 ml Output 3475 ml Net -2605 ml Physical Exam: General: NAD, alert and cooperative HEENT: NC/AT. EOMI Neck: Supple, trachea midline CVS: Normal S1 and S2, no murmurs appreciated, +1 edema bilateral lower extremities Respiratory: CTAB, no wheeze Gastrointestinal: Soft, nondistended, nontender. No guarding MSK: Normal ROM Neurological: CN II-XII grossly intact. AAOx4 SKIN: Skin normal color, texture Psychiatric: Mood stable, normal affect CURRENT MEDICATIONS: Scheduled Meds: apixaban 5 mg Oral BID atorvastatin 80 mg Oral Nightly at bedtime carvedilol 6.25 mg Oral BID furosemide 40 mg Intravenous BID insulin lispro 0-12 Units Subcutaneous 4x Daily AC and at bedtime lisinopril 40 mg Oral Daily magnesium oxide 400 mg Oral BID potassium chloride 40 mEq Oral 2 times per day Continuous Infusions: PRN Meds:.acetaminophen, ondansetron, polyethylene glycol RECENT RESULTS: Recent Labs Lab 07/27/23 0807/28/2343507/29/23922 WBC 8.05 6.04 9.87* HGB 10.5* 10.0* 11.4* PLT 212 204 243 Recent Labs Lab 07/27/23 0833 07/28/23 0436 07/29/23 09 CL 107 103 100 CO2 29.0 36.0* 34.0* INR 1.6* -- -- RADIOLOGY: Today, I have reviewed Radiology reports up to this point in the patients current encounter and have incorporated these into the assessment/plan and care of this patient. Echo: SUMMARY: The left ventricular size is normal. Estimated left ventricular ejection fraction is 55-60%. Left ventricular diastolic function is not reliably assessed. The left atrial volume is severely increased (>48 ml/M2). The peak pulmonary artery systolic pressure is estimated to be approximately 67 mmHg. Moderate tricuspid regurgitation. Severe pulmonary hypertension CTH: IMPRESSION: 1. No definite CT evidence of acute intracranial abnormality, as above. 2. Small vessel disease and volume loss. CTA head/neck: IMPRESSION: 1. No evidence of occlusion of the proximal major segments of the [place]. 2. No hemodynamically significant stenosis in the neck. 3. Multifocal intracranial and extracranial atherosclerotic disease, as detailed above. 4. Partially imaged pleural effusions and probable pulmonary edema. CXR: IMPRESSION: 1. Cardiomegaly with pulmonary vascular congestion. 2. Small bilateral pleural effusions. XR shoulder: IMPRESSION: 1) No acute bony abnormalities. Moderate degenerative changes and findings suggestive of calcified tendinitis. LAB: Recent Labs Lab 07/27/23 0833 07/27/23 0834 07/28/2343507/29/23922 NA 139 -- 140 137 K 3.9 -- 3.3* 4.1 CL 107 -- 103 100 CO2 29.0 -- 36.0* 34.0* AGAP 3.0* -- 1.0* 3.0* BUN 15 -- 12 17 CR 0.66* 0.6 0.62* 0.78 GLU 150* -- 99 196* CA 8.7 -- 8.8 8.9 MAGNESIUM -- -- 1.5* 1.7 Recent Labs Lab 07/27/23 0833 07/28/23 0436 07/29/23 0923 WBC 8.05 6.04 9.87* RBC 3.96* 3.74* 4.29* HGB 10.5* 10.0* 11.4* HCT 33.6* 31.5* 36.0* MCV 84.8 84.2 83.9 MCH 26.5* 26.7* 26.6* MCHC 31.3* 31.7 31.7 PLT 212 204 243 RDW 18.8* 18.8* 18.6* MPV 10.9 9.6 10.3 No results for input(s): CPK in the last 168 hours. Recent Labs Lab 07/27/23 08 INR 1.6* PTT 38.0* Invalid input(s): ABG Recent Labs Lab 07/27/23 0833 07/27/23 1450 TROP 37 31 No results for input(s): PH , PCO2 , PO2 , [id number] , BICARBWB , BASEDEFICIT , BASEEXCESS in the last 168 hours. Assessment / Plan: Acute on chronic systolic heart failure Acute hypoxic respiratory failure Chest pain Right shoulder pain Hypertension History of atrial fibrillation s/p pacemaker Non-insulin dependent diabetes Hyperlipidemia Hypokalemia Hypomagnesia Acute on chronic systolic CHF Acute hypoxic respiratory failure -Patient with evidence of CHF with significant lower extremity edema, elevated proBNP, chest x-ray showing edema and bilateral pleural effusions -Prior EF of 35 to 40% -Currently on 2 L nasal cannula satting in the mid 90s, titrate O2 to maintain O2 sats greater than92% -Start Lasix 40 mg IV twice daily -Monitor I's and O's -Low-sodium diet 07/28: repeat echo showing EF 55-60%; moderate tricuspid regurgitation; severe pulmonary hypertension; enlarged IVC; off O2; -3L net loss 07/29: -6L net loss; stop IV furosemide and start oral furosemide 40mg daily Chest pain -Atypical -Resolved prior to arriving to ER -Troponin negative -EKG without any acute ischemic ST changes Right shoulder pain -There are no focal neurological deficits, cranial nerves II through XII are intact, lower extremities are equally weak -Already on Eliquis -Unable to raise right arm due to significant pain -Right shoulder x-ray negative for dislocation or fracture but does show likely calcified tendinitis with moderate degenerative changes -Pain control -Will hold off on MRI brain Hypertension -Resume beta-vin and lisinopril -Hold amlodipine given lower extremity edema History of A-fib status post pacemaker -Resume Coreg and Eliquis for stroke prophylaxis Oal-qabaqlg-pobssnzmq diabetes -Hold oral medications, start insulin sliding scale Hyperlipidemia -Resume statin Inpatient Full code Eliquis for DVT prophylaxis Patient Contact(s): Extended Emergency Contact Information Primary Emergency Contact: Sherri Phan Mobile Relation: Daughter Preferred language: [place] [employer] needed? No Secondary Emergency Contact: Amadeo Crocker Mobile Relation: Son Preferred language: [place] [employer] needed? No SANDRA NUNEZ NP 07/29/2023 4:27 PM Cosigned by Lubna Gant MD at 07/30/2023 7:47 PM CARDIAC CATH TECH IAC CATH TECH IAC CATH TECH * GWENDOLYN Gil - 07/29/2023 11:35 AM CST 07/29/23 1100 Therapy Visit OT Received On 07/29/23 OT Evaluation Completed on 07/28/23 Treatment Day 2 Reason for admission neurological deficit present Ordering Provider Lubna Gant MD Verified Two Patient Identifiers Yes Patient consents to therapy Yes Acute Inpatient OT Time Calculation OT Start Time 841 OT Stop Time 922 OT Time Calculation (min) 41 min Precautions General Precautions Bed Alarm;Chair Alarm;Fall Risk PPE Used Gloves Instructed on Precautions Yes;Needs reinforcement and education Subjective Subjective Patient was in bed and agreed to get up and work with therapy. [facility] staff was present. Patient seemed somewhat agitated throughout session. He stated he is tired of being talked at and wants to be talked to . Patient states if he goes to rehab he wants to go to [facility]. He also expressed the wish to have imaging on his knees because he feels there may be something that can be donethat may help his balance and ability to care for himself again. Patient mentioned [facility] as a provider that helped his brother walk again. Patient was assured therapy staff would make these concerns known to the appropriate people. GWENDOLYN spoke with [employer] Sales Consultant in regard to plac ement at [facility] and [employer] VESSEL OPERATOR in regard to orthopedic referral. Pain Pain Patient does not offer or c/o pain Activity Tolerance Endurance Tolerates 10 - 20 min activity with rests Endurance Quality Fair Limiting Factors to Endurance Acute deconditioning;Weakness Activity Tolerance Comments Patient tolerated supine to sit, sit><stand, ambulation in room, used commode, and sat in bedside chair afterwards. Cognition Overall Cognitive Status YUMIKO Arousal/Alertness Appropriate responses to stimuli Attention Span Appears intact Memory Decreased recall of precautions;Decreased recall of recent events;Decreased short term memory Orientation Level Oriented to person;Oriented to place;Oriented to situation Following Commands Follows one step commands with repetition Safety Judgment Decreased awareness of need for safety Awareness of Errors Assistance required to correct errors made Deficits Decreased awareness of deficits Problem Solving Assistance required to implement solutions Motor Planning Appears intact Perseveration Perseverates during conversation Initiation Cues to initiate tasks Other (Comment) Per patient 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 Responds better if talking eye to eye without yelling because this seemed to agitate patient. ADL Toileting Assistance Maximal Toileting Deficit Setup;Verbal cueing;Supervision/safety;Bedside commode;Clothing management up;Clothing management down;Perineal hygiene Bed Mobility Supine to Sit Contact guard assist (with min v.c. and extra time. patient used 1 bedrail.) Sit to Supine YUMIKO (seated in chair after treatment.) Functional Transfers Sit to Stand Min assist;Assist of 2 (1st trial was Doug x 2; 2nd trial was better, cga/Doug x 2.) Balance Sitting - Static SBA Sitting - Dynamic Min Assist Standing - Static CGA;Assist of 2 Persons;Support of both upper extremities Standing - Dynamic CGA;Assist of 2 Persons;Support of both upper extremities OT Assessment OT Assessment Patient would benefit from skilled OT at to increase safety during ambulation andincrease independence during self care. Discharge Recommendation OT Recommendation OT at intermediate facility OT Equipment Recommended Currently has DME in Place;2 Wheeled walker Plan OT Treatment/Intervention Self-care training;Therapeutic exercises;Therapeutic activities;Functional activity;Safety;Patient/family training Progress Progressing toward goals OT Frequency 3 times/week;5 times/week End of Session End of Session Safety Chair alarm set/activated;Call light within reach;Nursing aware of session Interdisciplinary Collaboration Nursing, SALMON GILLNET VESSEL OPERATOR, Discharge Planning, [employer]ATBU[employer] GWENDOLYN GIL IAC CATH TECH * Olivia Cervantes, UAT TESTER - 07/29/2023 10:24 AM CST 07/29/23 1003 Therapy Visit Ordering Provider Lubna Gant MD PT Received On 07/29/23 Subjective patient resting in bed; he agrees to participate for therapy at this time, and a medical detail representative from [facility] is present to observe treatment. Reason for admission neurological deficit present Verified Two Patient Identifiers Yes Patient consents to therapy Yes Acute Inpatient PT Time Calculation PT Start Time 08 PT Stop Time 09 PT Time Calculation (min) 36 min Precautions General Precautions Bed Alarm;Chair Alarm;Fall Risk PPE Used Gloves Instructed on Precautions Yes;Needs reinforcement and education Pain Pain Patient does not offer or c/o pain Activity Tolerance Endurance Quality Fair Limiting Factors to Endurance Acute deconditioning;Weakness Activity Tolerance Comments tolerated supine to sit, sit><stand, ambulation in room, used commode, and sat in bedside chair afterwards. Cognition Overall Cognitive Status WFL Orientation Level Oriented to person;Oriented to place;Oriented to situation Bed Mobility Supine to Sit Contact guard assist; Assist of 2 (with min v.c. and extra time. patient used 1 bedrail.) Sit to Supine YUMIKO (seated in chair after treatment.) TRANSFERS Sit to Stand Min assist;Assist of 2 (1st trial was Doug x 2; 2nd trial was better, cga/Doug x 2.) Other (Comment) patient sat on bedside commode after taking short walk, to have bm; he was unable to wipe himself, so received assist for hygiene and applying barrier cream while he stood with support of wheeled walker and cga. Gait Gait Assistance Contact guard assist;With gait belt (min v.c. for patient to try standing more upright.) Assistive Device 2 Wheeled walker Distance Ambulated (ft) 20 ft Pattern Shuffle steps (stooped posture) Balance Sitting - Static SBA Sitting - Dynamic Min Assist Standing - Static CGA;Assist of 2 Persons;Support of both upper extremities Standing - Dynamic CGA;Assist of 2 Persons;Support of both upper extremities PT Assessment PT Assessment patient is making gradual progress at this time; he is able to transfer or ambulate short distances with assistance. patient also requires assistance with hygiene tasks. patient would benefit from snf placement. Discharge Recommendation PT Recommendation PT at intermediate Facility PT Equipment Recommended 2 Wheeled walker Plan Progress Progressing toward goals PT Frequency Daily PT - Next Appointment 07/30/23 End of Session End of Session Safety Chair alarm set/activated;Call light within reach;Nursing aware of session Interdisciplinary Collaboration SNOW End of Session Comment after treatment, patient voiced a desire to see a doctor regarding issues with his knees. he spoke in great length to the SNOW about this matter. this information was passed onto HETAL Zarate. OLIVIA CERVANTES PTA IAC CATH TECH IAC CATH TECH IAC CATH TECH * Giselle Roberts - 07/29/2023 9:34 AM CST Patient is not able to return to [facility] due to his current level of care. Patient has requested referral to Nursing homes in [facility]. Referrals sent. Passr complete. Will notify patients care team when placement secured. Referrals sent to [facility] and [facility]. IAC CATH TECH IAC CATH TECH * Shavon Howe RN - 07/28/2023 4:05 PM CST 07/28/23 1130 Referral Data Source of Information Patient Patient Information Primary Caregiver Other (Comment) ([facility]) Current living Situation Alone Type of Residence Assisted living Support System Immediate family Are you employed? Not Employed Recent Hospitalization Recent Hospitalization within 30 days No Baseline ADL's Functional Status Moderate assistance Active DME Walker Behavior Oriented;Cooperative Communication Talks;Understands speaking;Understands [place] Current Services Being Provided Home Health Occupational therapy DC screening tool This is a screening tool it does not take the place of a physical or occupational therapy evaluation. The screening is to screen the patient for what services and destination would be beneficial for patient for next level of care Chart Review;Other (Comment) (Rashmi @ [facility]) Based on the screening the LA plan for consideration is: Patient expects to be discharged to: Assisted Living Adequate Resources Available Adequate Resources Yes Patient comes from [facility]. This nurse contacted [facility] and Rashmi states patient had been doing PT/OT at [facility] and was d/c'd from PT due to no progression. She states they will need to screen patient before accepting him back to their facility as inpatient PT/OT notes are recommending SNF. Rashmi states they will come screen patient 07/29. IAC CATH TECH * Shavon Howe RN - 07/28/2023 12:19 PM CST 07/28/23 1218 Interdisciplinary Group Conference Team Members Present Physician;Case/Care management;Nursing;PT/OT;Pharmacy;Dietary Physician present for group conference Dr. Gant Barriers to Discharge Patient expects to be discharged to: Assisted Living Patient from [facility], potassium and Mag low. IAC CATH TECH * Olivia Cervantes PTA - 07/28/2023 10:06 AM CST 07/28/23 0959 Therapy Visit Ordering Provider Lubna Gant MD PT Received On 07/28/23 Subjective patient sitting upright in bed, finishing breakfast; patient agreed to therapy treatmentat this time, and student nurse in room today. Reason for admission neurological deficit present Verified Two Patient Identifiers Yes Patient consents to therapy Yes Acute Inpatient PT Time Calculation PT Start Time 0750 PT Stop Time 0806 PT Time Calculation (min) 16 min Precautions General Precautions Bed Alarm;Chair Alarm;Fall Risk;Supplemental oxygen (external urine catheter) PPE Used Gloves Instructed on Precautions Yes;Needs reinforcement and education Pain Pain Patient does not offer or c/o pain Activity Tolerance Endurance Quality Fair Limiting Factors to Endurance Acute deconditioning;Fatigue;Weakness Activity Tolerance Comments tolerated supine to sit, sit><stand, and took a few steps bed to chair with wheeled walker. Cognition Overall Cognitive Status Impaired Orientation Level Oriented to person;Oriented to place Bed Mobility Supine to Sit Min assist to left;Assist of 2 Sit to Supine YUMIKO (seated in chair after treatment) TRANSFERS Sit to Stand Min assist;Mod assist;Assist of 2 (wheeled walker, gait belt, and with bed in raised position.) Bed to Chair Contact guard assist;Assist of 2 (wheeled walker, gait belt, and min v.c.) Other (Comment) patient was able to take a few steps to chair. Balance Sitting - Static SBA Sitting - Dynamic Min Assist Standing - Static CGA;Assist of 2 Persons;Support of both upper extremities Standing - Dynamic CGA;Assist of 2 Persons;Support of both upper extremities PT Assessment PT Assessment patient is making gradual progress with transfers at this time; he would benefit fromsnf placement at discharge for continued PT services. Discharge Recommendation PT Recommendation PT at intermediate Facility PT Equipment Recommended 2 Wheeled walker Plan Progress Progressing toward goals PT Frequency Daily PT - Next Appointment 07/29/23 End of Session End of Session Safety Chair alarm set/activated;Call light within reach;Nursing aware of session Interdisciplinary Collaboration OT OLIVIA CERVANTES PTA IAC CATH TECH * Sandra Nunez NP - 07/28/2023 8:44 AM CST Hospitalist Service Progress Note Chief Complaint : Weakness, Stroke Alert, Shortness Of Breath , and Chest Pain Admit date: 07/27/2023 8:21 AM Subjective: -no acute overnight events -Seen and examined today sitting in chair. He reports feeling a little better today. He continues to feel short of breath but reports it is much better than before. He reports he can tell a real difference in his legs stating yesterday they were as solid as a block of ice and today he can squish them in. -He remains on the oxygen at 2L/NC with SpO2 98% and would like to try taking it off because it is bothering him. Hospital Course: Avila Crocker is a 78 year old male with past medical history significant for coronary artery disease, diabetes mellitus, disorder of prostate, hyperlipidemia, hypertension and pacemaker who presented with complaint of chest pain/pressure that resolved prior to ER arrival. He also c/o shortness of breath. He was found to be mildly hypoxic with significant lower extremity edema which he reportedhad been getting worse over the past several months. Objective: Filed Vitals: 07/27/23 2205 07/28/23 0257 07/28/23 0621 07/28/23 0720 BP: (!) 145/77 128/62 131/63 (P) 117/62 Pulse: 60 (!) 56 60 (P) 60 Resp: 18 18 18 (P) 16 Temp: 97.4 ??F (36.3 ??C) 97.4 ??F (36.3 ??C) 97.6 ??F (36.4 ??C) (P) 97.9 ??F (36.6 ??C) TempSrc: Oral Axillary Axillary (P) Axillary SpO2: 99% 96% 96% (P) 98% Weight: Height: Intake/Output Summary (Last 24 hours) at 07/28/2023 0844 Last data filed at 07/28/2023 0621 Gross per 24 hour Intake 500 ml Output 3600 ml Net -3100 ml Physical Exam: General: NAD, alert and cooperative HEENT: NC/AT. EOMI Neck: Supple, trachea midline CVS: Normal S1 and S2, no murmurs appreciated, +1 edema bilateral lower extremities Respiratory: CTAB, no wheeze Gastrointestinal: Soft, nondistended, nontender. No guarding MSK: Normal ROM Neurological: CN II-XII grossly intact. AAOx4 SKIN: Skin normal color, texture Psychiatric: Mood stable, normal affect CURRENT MEDICATIONS: Scheduled Meds: apixaban 5 mg Oral BID atorvastatin 80 mg Oral Nightly at bedtime carvedilol 6.25 mg Oral BID furosemide 40 mg Intravenous BID insulin lispro 0-12 Units Subcutaneous 4x Daily AC and at bedtime lisinopril 40 mg Oral Daily magnesium oxide 400 mg Oral Daily potassium chloride 20 mEq Oral 2 times per day Continuous Infusions: PRN Meds:.acetaminophen, ondansetron, polyethylene glycol RECENT RESULTS: Recent Labs Lab 07/27/23 0833 07/28/23 043 WBC 8.05 6.04 HGB 10.5* 10.0* PLT 212 204 Recent Labs Lab 07/27/23 0833 07/28/23 043 CL 107 103 CO2 29.0 36.0* INR 1.6* -- RADIOLOGY: Today, I have reviewed Radiology reports up to this point in the patients current encounter and have incorporated these into the assessment/plan and care of this patient. Echo: SUMMARY: The left ventricular size is normal. Estimated left ventricular ejection fraction is 55-60%. Left ventricular diastolic function is not reliably assessed. The left atrial volume is severely increased (>48 ml/M2). The peak pulmonary artery systolic pressure is estimated to be approximately 67 mmHg. Moderate tricuspid regurgitation. Severe pulmonary hypertension CTH: IMPRESSION: 1. No definite CT evidence of acute intracranial abnormality, as above. 2. Small vessel disease and volume loss. CTA head/neck: IMPRESSION: 1. No evidence of occlusion of the proximal major segments of the [place]. 2. No hemodynamically significant stenosis in the neck. 3. Multifocal intracranial and extracranial atherosclerotic disease, as detailed above. 4. Partially imaged pleural effusions and probable pulmonary edema. CXR: IMPRESSION: 1. Cardiomegaly with pulmonary vascular congestion. 2. Small bilateral pleural effusions. XR shoulder: IMPRESSION: 1) No acute bony abnormalities. Moderate degenerative changes and findings suggestive of calcified tendinitis. LAB: Recent Labs Lab 07/27/2383207/27/23 0834 07/28/23 0436 NA 139 -- 140 K 3.9 -- 3.3* CL 107 -- 103 CO2 29.0 -- 36.0* AGAP 3.0* -- 1.0* BUN 15 -- 12 CR 0.66* 0.6 0.62* GLU 150* -- 99 CA 8.7 -- 8.8 MAGNESIUM -- -- 1.5* Recent Labs Lab 07/27/23 0833 07/28/23 0436 WBC 8.05 6.04 RBC 3.96* 3.74* HGB 10.5* 10.0* HCT 33.6* 31.5* MCV 84.8 84.2 MCH 26.5* 26.7* MCHC 31.3* 31.7 PLT 212 204 RDW 18.8* 18.8* MPV 10.9 9.6 No results for input(s): CPK in the last 168 hours. Recent Labs Lab 07/27/23832 INR 1.6* PTT 38.0* Invalid input(s): ABG Recent Labs Lab 07/27/23 0833 07/27/23 1450 TROP 37 31 No results for input(s): PH , PCO2 , PO2 , [id number] , BICARBWB , BASEDEFICIT , BASEEXCESS in the last 168 hours. Assessment / Plan: Acute on chronic systolic heart failure Acute hypoxic respiratory failure Chest pain Right shoulder pain Hypertension History of atrial fibrillation s/p pacemaker Non-insulin dependent diabetes Hyperlipidemia Hypokalemia Hypomagnesia Acute on chronic systolic CHF Acute hypoxic respiratory failure -Patient with evidence of CHF with significant lower extremity edema, elevated proBNP, chest x-ray showing edema and bilateral pleural effusions -Prior EF of 35 to 40% -Currently on 2 L nasal cannula satting in the mid 90s, titrate O2 to maintain O2 sats greater than92% -Start Lasix 40 mg IV twice daily -Monitor I's and O's -Low-sodium diet 07/28: repeat echo showing EF 55-60%; moderate tricuspid regurgitation; severe pulmonary hypertension; enlarged IVC; off O2; -3L net loss Chest pain -Atypical -Resolved prior to arriving to ER -Troponin negative -EKG without any acute ischemic ST changes Right shoulder pain -There are no focal neurological deficits, cranial nerves II through XII are intact, lower extremities are equally weak -Already on Eliquis -Unable to raise right arm due to significant pain -Right shoulder x-ray negative for dislocation or fracture but does show likely calcified tendinitis with moderate degenerative changes -Pain control -Will hold off on MRI brain Hypertension -Resume beta-vin and lisinopril -Hold amlodipine given lower extremity edema History of A-fib status post pacemaker -Resume Coreg and Eliquis for stroke prophylaxis Mtp-hrtbrbx-cywixbioj diabetes -Hold oral medications, start insulin sliding scale Hyperlipidemia -Resume statin Inpatient Full code Eliquis for DVT prophylaxis Patient Contact(s): Extended Emergency Contact Information Primary Emergency Contact: Sherri Phan Mobile Relation: Daughter Preferred language: [place] [employer] needed? No Secondary Emergency Contact: Amadeo Crocker Mobile Relation: Son Preferred language: [place] [employer] needed? No SANDRA NUNEZ NP 07/28/2023 8:44 AM Cosigned by Lubna Gant MD at 07/29/2023 7:49 AM CARDIAC CATH TECH IAC CATH TECH IAC CATH TECH * Michael David Aureliano, OTR - 07/28/2023 7:51 AM CSTSummary: OT EVALUATION Occupational Therapy Initial Evaluation Recommendation: OT Recommendation: (P) OT at intermediate facility OT Equipment Recommended: (P) Currently has DME in Place, 2 Wheeled walker Activity Recommendations for nursing staff: UP TO CHAIR WITH 2WW AND 2A HPI: Avila Crocker is a 78-year-old male is referred to OT with dx of CHF (congestive heart failure) ([facility] ([facility]) [I50.9] Chest pain [R07.9] Right sided weakness [R53.1] Neurological deficit present [R29.818]. Pt demonstrates decreased strength, endurance, ROM, motor planning, and safety this date during functional transfers. Pt may benefit from continued skilled OT treatment to increase safety and independence. Pt is recommended to discharge to SNF, when medically appropriate, to receive 12/01 care and assistance with ADLs/IADLs. Past Medical History: Diagnosis Date Coronary artery disease Diabetes mellitus ([facility]) ([facility]) Disorder of prostate Hyperlipidemia Hypertension Pacemaker 09/10/2022 Past Surgical History: Procedure Laterality Date CORONARY ART DIL,ONE VESSEL 2010 [facility] COBIAN PACER XVENOUS ATRIAL 05/04/2013 PACEMAKER Objective: 07/28/23 1000 Therapy Visit OT Received On 07/28/23 OT Evaluation Completed on 07/28/23 Treatment Day 1 Reason for admission neurological deficit present Ordering Provider Lubna Gant MD Verified Two Patient Identifiers Yes Patient consents to therapy Yes Acute Inpatient OT Time Calculation OT Start Time 0751 OT Stop Time 0807 OT Time Calculation (min) 16 min Precautions General Precautions Bed Alarm;Chair Alarm;Fall Risk;Supplemental oxygen PPE Used Gloves Instructed on Precautions Yes;Needs reinforcement and education Subjective Subjective Per RN pt okay to see this date. Pt supine in bed with HOB elevated and was agreeable with encouragement to participate in skilled OT session. Home Living Type of Home Assisted living Home Layout One level Home Living Comments Pt reports that he lives in a facility, but [facility] Per chart review, pt is from [facility]. Prior Function Level of [place] Independent with ADLs;Needs assistance with homemaking;Independent with functional transfers;Independent with ambulation Device used at baseline None;2 Wheeled walker Receives Help From Facility staff PLOF Comments Pt noted to be a poor historian this date. He was unable to clearly provide PLOF. Pt states that he gets dressed by himself and is able to walk without device. However, later stating that he does use 2ww for mobility. Pain Pain No Activity Tolerance Endurance Tolerates 10 - 20 min activity with rests Endurance Quality Fair Limiting Factors to Endurance Weakness;Acute deconditioning;Other (Comment) (poor motor planning in BLE) Activity Tolerance Comments Pt tolerates supine to sit, sit to stand, functional transfer to chair,and seated in chiar upon OT exit Cognition Overall Cognitive Status Impaired Arousal/Alertness Appropriate responses to stimuli Attention Span Appears intact Memory Decreased recall of precautions;Decreased recall of recent events;Decreased short term memory Orientation Level Oriented to place;Oriented to time;Oriented to person;Disoriented to situation Following Commands Follows one step commands with repetition Safety Judgment Decreased awareness of need for safety Overall Extremity Assessment Upper Extremity BUE WFL AROM and strength Hand Function Gross Grasp Right;Left;Functional ADL LE Dressing Assistance Maximal;In bed LE Dressing Deficit Don/doff L sock;Don/doff R sock Bed Mobility Supine to Sit Mod assist to left Other (Comment) Pt seated in chair upon OT exit with student nurse in room Functional Transfers Sit to Stand Min assist;Mod assist;Assist of 2 Bed to Chair Contact guard assist;Min assist;Assist of 2 Assessment Occupational Profile and History Complexity High (Extensive) Performance Skills Deficits Bathing/showering;Dressing;Functional mobility;Health management and maintenance;Home establishment and management;Personal hygiene and grooming;Safety and emergency mainte nance;Toileting Performance Deficit Level High (5 or more deficits) Clinical Decision Making High (max modifications) Complexity Level of Evaluation High Prognosis Fair OT Assess/Eval Other (Comment) Pt demonstrates decreased strength, endurance, ROM, motor planning, and safety this date during functional transfers. Pt may benefit from continued skilled OT treatmentto increase safety and independence. Pt is recommended to discharge to SNF, when medically appropriate, to receive 24/7 care and assistance with ADLs/IADLs/ Discharge Recommendation OT Recommendation OT at intermediate facility OT Equipment Recommended Currently has DME in Place;2 Wheeled walker Barriers to Community Discharge Safety;Cognition;Memory Plan OT Treatment/Intervention Self-care training;Therapeutic exercises;Therapeutic activities;Functional activity;Safety;Patient/family training Progress Progressing toward goals OT Frequency 3 times/week;5 times/week OT - Next Appointment 07/29/23 If this is the last treatment note, it will serve as the discharge summary Yes End of Session End of Session Safety Call light within reach;Chair alarm set/activated;Nursing aware of session;Transfer status education (Student nurse in room upon OT exit) Interdisciplinary Collaboration UAT TESTER, vaccinator: Avila Crocker is a 78-year-old male is referred to OT with dx of CHF (congestive heart failure)([facility]/HCC) (CMS/HCC) [I50.9] Chest pain [R07.9] Right sided weakness [R53.1] Neurological deficit present [R29.818]. Pt demonstrates decreased strength, endurance, ROM, motor planning, and safety this date during functional transfers. Pt may benefit from continued skilled OT treatment to increase safety and independence. Pt is recommended to discharge to SNF, when medically appropriate, to receive 12/01 care and assistance with ADLs/IADLs. Michael Bedoya OTR/L, CLT IAC CATH TECH * Dalton Del Valle - 07/27/2023 2:29 PM CST 07/27/23 1400 Clinical Encounter Type Visited With Patient;Health care provider Total number in room 3 Routine Visit Initial visit Plan of Care Spiritual care goals patient;caregiver;begin/continue to experience spiritual support in manner that is comfortable for them;awareness of pastoral presence/services;awareness and expression of feelings Spiritual Care interventions Spiritual care plan interventions Provide prayer/ritual/sacraments;Provide support to patient/family;Offered a listening/supportive presence for patient/family;Facilitate discovery & verbilization of feelings IAC CATH TECH * Arielle Ramirez, PT - 07/27/2023 1:13 PM CSTSummary: PT evaluation 07/27/23 1400 Therapy Visit Ordering Provider Lubna Gant MD PT Received On 07/27/23 PT Evaluation Completed on 07/27/23 Subjective Pt is semi-supine in bed with bed linens saturated from urine. RN present to assist withtransfer and clean up. Pt is agreeable to out of bed mobility to get cleaned up. Reason for admission neurological deficit present Relevant Comorbidities/ Personal Factors to PT Past Medical History: Diagnosis Date Coronary artery disease Diabetes mellitus (HHS/HCC) (CMS/HCC) Disorder of prostate Hyperlipidemia Hypertension Pacemaker 09/10/2022 Past Surgical History: Procedure Laterality Date CORONARY ART DIL,ONE VESSEL 2010 [facility] COBIAN PACER XVENOUS ATRIAL 05/04/2013 PACEMAKER Verified Two Patient Identifiers Yes Patient consents to therapy Yes Acute Inpatient PT Time Calculation PT Start Time 1313 PT Stop Time 1331 PT Time Calculation (min) 18 min Precautions General Precautions Bed Alarm;Chair Alarm;Fall Risk;Supplemental oxygen PPE Used Gloves Instructed on Precautions Yes;Needs reinforcement and education Home Living Type of Home Apartment Home Layout One level Home Accessibility 0 Steps to enter Home Living Comments Pt reports he lives in an apartment. He is unable to provide name of [facility] that he lives in. Pt lives at [facility]. Prior Function PLOF Comments Pt unable to provide PLOF. When transferring with walker, pt states I use one of these . Then when asked about walker, he is not familiar with walker. Pt unable to provide PLOF due to impaired cognition. Pain Pain Yes Pain Score Did not rate Location R shoulder Interventions Re-direction;Re-positioning Activity Tolerance Activity Tolerance Comments Pt completed bed mobility and transfer to bedside chair, and stand steptransfer from bedside chair to w/c. Cognition Overall Cognitive Status Impaired Arousal/Alertness Appropriate responses to stimuli Attention Span Appears intact Memory Decreased recall of precautions;Decreased recall of recent events;Decreased short term memory Orientation Level Oriented to place;Oriented to time;Oriented to person;Disoriented to situation Following Commands Follows one step commands with repetition Safety Judgment Decreased awareness of need for safety RLE Assessment RLE Assessment WFL RLE Comment unable to complete full assessment due to pt being taken by transport LLE Assessment LLE Assessment WFL LLE Comment unable to complete full assessment due to pt being taken by transport Bed Mobility Supine to Sit Mod assist to left Other (Comment) Pt able to initiate movement with B LEs, PT provided mod A to trunk to achieve upright and assist to hips for pt's feet to contact the floor. TRANSFERS Sit to Stand Mod assist;Assist of 2 Bed to Chair Min assist;Assist of 2 Other (Comment) Pt completed sit<>stand with FWW at mod A x 2 with FWW and gait belt donned. Pt with posterior lean and difficulty achieving balance. Pt completed additional sit<>stand from bedside chair to transfer to w/c for transport, pt required mod A x 2 with FWW and gait belt donned. Pt required mod verbal cuing for hand placement to FWW to assist with shifting balance anteriorly. Pt completed stand step transfer from EOB to bedside chair and from bedside chair to w/c requiring min A x 2 with gait belt and FWW. Pt required moderate verbal cuing for sequencing task. Gait Gait Assistance YUMIKO Assessment Personal Factors/Comorbidities Impacting Care 3-4 personal factors/comorbidities Examination of Body Systems High (at least 4 Elements) Objectives of Body Systems Impaired bed mobility;Impaired transfers;Impaired ambulation;Decreased LE strength;Decreased cognition Clinical Presentation of Patient Evolving and changing characteristics Complexity Level of Evaluation High Prognosis Fair;Ongoing PT assessment needed PT Assess/Eval Other (Comment) Pt currently presents completing bed mobility at mod A, sit<>stand at mod A x 2 with FWW and gait belt donned, and completing stand step transfer x 2 with FWW andgait belt donned at min A x 2. Pt demo impairments strength and impaired cognition. Pt to benefit from continued skilled PT this hospitalization to address above impairments and prevent further functional decline. PT d/c rec is SNF placement due to above assist levels, progress pt towards PLOF, andmaximize functional mobility to reduce fall risk. Due to pt's impaired cognition, PT unable to obtain home set up and PLOF. Discharge Recommendation PT Recommendation PT at intermediate Facility PT Equipment Recommended 2 Wheeled walker Plan PT Treatments/Interventions Therapeutic Activities Progress Progressing toward goals PT Frequency Daily PT plan for next session transfer training with FWW, LE ther ex and ROM, gait training PT - Next Appointment 07/28/23 End of Session End of Session Safety Nursing aware of session;Other (Comment) (Pt taken by transportation for testing) Interdisciplinary Collaboration communication with nursing staff ARIELLE RAMIREZ PT IAC CATH TECH documented in this encounter H&P Notes * GRANT Curtis - 07/27/2023 1:00 PM CST Hospitalist History and Physical Admission date: 07/27/2023 Reason for Admission: CHF (congestive heart failure) ([facility]/HCC) ([facility]) History of present illness: Avila Crocker is a 78-year-old male With past medical history significant for has a past medical history of Coronary artery disease, Diabetes mellitus ([facility]/HCC) ([facility]), Disorder of prostate, Hyperlipidemia, Hypertension, and Pacemaker (09/10/2022). Patient presented to the ER today complaining of chest pain/pressure that resolved by the time he arrived to the ER. He has also complained of some shortness of breath. There was some concern of someright facial droop by EMS and some subjective right arm weakness concerning for possible strokelikesymptoms. Patient's last known normal was 2230 last night and woke up at approximately 530 this morning having the symptoms. He was evaluated by telemetry neuro in the ER suspects more metabolic in nature but recommends MRI of the brain if no metabolic source found. Patient was found to be slightlyhypoxic in the ER requiring 2 L nasal cannula. On my evaluation patient states that he is feeling alittle bit better and he has been urinating well since getting IV Lasix. He states that he is unable to lift his right arm very far due to significant pain. He states that he believes he may have fallen however is a very poor historian. He does report significant lower extremity edema which she states has only gotten worse over the last several months. He complains of bilateral knee pain that is limiting his mobility. He has a multitude of other various complaints including his penis as well asmedications that were prescribed by his PCP. Patient denies headache, visual changes, neck pain or stiffness, dysphagia, nausea, vomiting, diarrhea, abdominal pain, cough, wheezing, fever, chills, night sweats, numbness or tingling in the arms or legs, lightheadedness, dizziness, syncope, rash, dysuria, frequency, recent travel, ill contacts e xposure. Allergies No Known Allergies Medication List: Medications Prior to Admission Medication Sig Dispense Refill atorvastatin (LIPITOR) 80 MG tablet Take 1 tablet (80 mg total) by mouth nightly at bedtime. lisinopril (PRINIVIL) 40 MG tablet Take 1 tablet (40 mg total) by mouth daily. nitroglycerin (NITROSTAT) 0.[address] 1 tablet (0.4 mg total) under the tongue every 5 (five) minutes as needed for Chest Pain. acetaminophen (TYLENOL) 500 MG tablet Take 2 tablets (1,000 mg total) by mouth every 6 (six) hours as needed for Pain. amLODIPine (NORVASC) 5 MG tablet Take 1 tablet (5 mg total) by mouth daily. apixaban (ELIQUIS) 5 MG tablet Take 1 tablet (5 mg total) by mouth 2 (two) times daily. 60 tablet 5 glipiZIDE 10 MG tablet Take 1 tablet (10 mg total) by mouth 2 (two) times daily. magnesium oxide 400 (241.3 Mg) MG tablet Take 1 tablet (400 mg total) by mouth daily. metFORMIN 1000 MG tablet Take 1 tablet (1,000 mg total) by mouth 2 (two) times daily. polyethylene glycol powder Take 17 g by mouth daily as needed (constipation). vitamin B-12 1000 MCG tablet Take 1 tablet (1,000 mcg total) by mouth daily. No current facility-administered medications on file prior to encounter. Current Outpatient Medications on File Prior to Encounter Medication Sig Dispense Refill atorvastatin (LIPITOR) 80 MG tablet Take 1 tablet (80 mg total) by mouth nightly at bedtime. lisinopril (PRINIVIL) 40 MG tablet Take 1 tablet (40 mg total) by mouth daily. nitroglycerin (NITROSTAT) 0.[address] 1 tablet (0.4 mg total) under the tongue every 5 (five) minutes as needed for Chest Pain. acetaminophen (TYLENOL) 500 MG tablet Take 2 tablets (1,000 mg total) by mouth every 6 (six) hours as needed for Pain. amLODIPine (NORVASC) 5 MG tablet Take 1 tablet (5 mg total) by mouth daily. apixaban (ELIQUIS) 5 MG tablet Take 1 tablet (5 mg total) by mouth 2 (two) times daily. 60 tablet 5 glipiZIDE 10 MG tablet Take 1 tablet (10 mg total) by mouth 2 (two) times daily. magnesium oxide 400 (241.3 Mg) MG tablet Take 1 tablet (400 mg total) by mouth daily. metFORMIN 1000 MG tablet Take 1 tablet (1,000 mg total) by mouth 2 (two) times daily. polyethylene glycol powder Take 17 g by mouth daily as needed (constipation). vitamin B-12 1000 MCG tablet Take 1 tablet (1,000 mcg total) by mouth daily. Past Medical History Past Medical History: Diagnosis Date Coronary artery disease Diabetes mellitus ([facility]/HCC) ([facility]/HCC) Disorder of prostate Hyperlipidemia Hypertension Pacemaker 09/10/2022 Past Surgical History: Procedure Laterality Date CORONARY ART DIL,ONE VESSEL 2010 INSER COBIAN PACER XVENOUS ATRIAL 05/04/2013 PACEMAKER Social History Social History Socioeconomic History Marital status: Number of children: 2 Occupational History Employer: RETIRED Tobacco Use Smoking status: Former Packs/day: 1 Types: Cigarettes, Pipe Start date: 02/14/1966 Quit date: 10/07/1995 Years since quittin.8 Smokeless tobacco: Never Substance and Sexual Activity [...] No Stress: No Stress Concern Present (07/27/2023) [place] [employer] - Occupational Stress Questionnaire Feeling of Stress : Not at all Social Connections: Socially Isolated (07/27/2023) Social Connection and Isolation Panel [NHANES] Frequency of Communication with Friends and Family: Never Frequency of Social Gatherings with Friends and Family: Never Attends Yarsanism Services: Never Active Member of Clubs or [...] Name Age of Onset Heart Attack Mother Review of Systems: A 14 point review of systems was performed and was negative except as per HPI. Physical Exam: Vitals: 07/27/23 1036 BP: (!) 141/71 Pulse: 66 Resp: 18 Temp: 97.5 ??F (36.4 ??C) SpO2: 95% General: No acute distress, speaking in full sentences, elderly HEENT: Pupils equal and reactive to light and accommodation, oropharynx is clear Neck: Supple, no lymphadenopathy, no JVD Lungs: Diminished bilaterally with fine crackles in the bases, Breathing regular nonlabored, no useof accessory muscles Cardiovascular: Regular rate and rhythm with normal S1 and S2, No murmur Abdomen: Soft, nontender, nondistended, normoactive bowel sounds, No organomegaly Extremities: Has significant bilateral lower extremity pitting edema from the feet all the way up into his upper thighs Neuro: Nonfocal, A&O x3, cranial nerves II through XII intact, tenderness to right shoulder, bilateral lower extremity weakness Psych: Normal affect Skin: pink, warm, and dry Back: nontender Intake/Output last 3 shifts: I/O last 3 completed shifts: In: - Out: 600 [Urine:600] Labs: Recent Labs Lab 07/27/23 0833 07/27/23 0834 NA 139 -- K 3.9 -- CL 107 -- CO2 29.0 -- AGAP 3.0* -- BUN 15 -- CR 0.66* 0.6 GLU 150* -- CA 8.7 -- Recent Labs Lab 07/27/23 0833 WBC 8.05 RBC 3.96* HGB 10.5* HCT 33.6* MCV 84.8 MCH 26.5* MCHC 31.3* PLT 212 RDW 18.8* MPV 10.9 Recent Labs Lab 07/27/23 0833 AST 22 ALT 17 Recent Labs Lab 07/27/23 0833 INR 1.6* PTT 38.0* Invalid input(s): ABG Recent Labs Lab 07/27/23 0833 TROP 37 No results for input(s): PH , PCO2 , PO2 , [id number] , BICARBWB , BASEDEFICIT , BASEEXCESS in the last 168 hours. Imaging & Other Studies XR SHOULDER RT MIN 2V Result Date: 07/27/2023 IMPRESSION: 1) No acute bony abnormalities. Moderate degenerative changes and findings suggestive of calcified tendinitis. Ordered By: SIRI PHAN Interpreted By: Humberto Alfonso MD, 07/27/2023 2:01 PM CTA HEAD+NECK Result Date: 07/27/2023 IMPRESSION: 1. No evidence of occlusion of the proximal major segments of the [place]. 2. No hemodynamically significant stenosis in the neck. 3. Multifocal intracranial and extracranial atherosclerotic disease, as detailed above. 4. Partially imaged pleural effusions and probable pulmonary edema. Ordered By: CATRACHO SIMS Interpreted By: Jaciel Slaughter MD, 07/27/2023 8:[address] STROKE(HEAD WO) Result Date: 07/27/2023 IMPRESSION: 1. No definite CT evidence of acute intracranial abnormality, as above. 2. Small vesseldisease and volume loss. Ordered By: CATRACHO SIMS Interpreted By: Jaciel Slaughter MD, 07/27/2023 8:55 AM XR CHEST PORTABLE Result Date: 07/27/2023 IMPRESSION: 1. Cardiomegaly with pulmonary vascular congestion. 2. Small bilateral pleural effusions. Referred By: Interpreted By: Bartolome Dillard DO, 07/27/2023 8:45 AM Results for orders placed or performed during the hospital encounter of 07/27/23 [address] [facility] Test Date: 2023-07-27 Pat Name: AVILA CROCKER Department: 68 Room: [place] [address] Gender: Male Cco: Am : 1945 Requested By: Order Number: [id number] Reading MD: Phi Sales Measurements Intervals [place] Rate: 76 P: AK: 0 QRS: -76 QRSD: 177 T: 104 QT: 438 QTc: 495 Interpretive Statements ELECTRONIC VENTRICULAR PACEMAKER ABNORMAL RHYTHM ECG IAC CATH TECH Active Problems: Patient Active Problem List Diagnosis Date Noted CHF (congestive heart failure) ([facility]) ([facility]) 07/27/2023 AV block, 2nd degree 07/21/2023 Dehydration 01/17/2023 S/p bare metal coronary artery stent 03/27/2020 Chronic diastolic heart failure ([facility]) ([facility]) 05/05/2018 Coronary artery disease Hypertension Hyperlipidemia Chronic anticoagulation 12/19/2015 Cardiac pacemaker in situ 12/13/2015 Chronic atrial fibrillation ([facility]) ([facility]) 12/13/2015 Sinus node dysfunction ([facility]) ([facility]) 12/13/2015 Assessment & Plan: Acute on chronic systolic CHF Acute hypoxic respiratory failure -Patient with evidence of CHF with significant lower extremity edema, elevated proBNP, chest x-ray showing edema and bilateral pleural effusions -Prior EF of 35 to 40% -Currently on 2 L nasal cannula satting in the mid 90s, titrate O2 to maintain O2 sats greater than92% -Start Lasix 40 mg IV twice daily -Monitor I's and O's -Low-sodium diet -Check echocardiogram Chest pain -Atypical -Resolved prior to arriving to ER -Troponin negative -EKG without any acute ischemic ST changes Right shoulder pain -There are no focal neurological deficits, cranial nerves II through XII are intact, lower extremities are equally weak -Already on Eliquis -Unable to raise right arm due to significant pain -Right shoulder x-ray negative for dislocation or fracture but does show likely calcified tendinitis with moderate degenerative changes -Pain control -Will hold off on MRI brain Hypertension -Resume beta-vin and lisinopril -Hold amlodipine given lower extremity edema History of A-fib status post pacemaker -Resume Coreg and Eliquis for stroke prophylaxis [id number] diabetes -Hold oral medications, start insulin sliding scale Hyperlipidemia -Resume statin VTE prophylaxis: Eliquis CODE STATUS: Full Surrogate decision-maker: Daughter Sherri GRANT Curtis 07/27/2023 3:16 PM Cosigned by Lubna Gant MD at 07/27/2023 7:45 PM CARDIAC CATH TECH IAC CATH TECH IAC CATH TECH documented in this encounter Nursing Notes * Keysha Palencia RN - 07/31/2023 11:49 AM CSTSummary: discharge Report called to longterm at [facility] spoke with toni and gave patients history and report. Patient being picked up at 1215 via w/c IAC CATH TECH documented in this encounter ED Notes * MARYSOL Camacho - 07/27/2023 10:11 AM CSTSummary: Transfer of care Note Report given to JACOB Frost on 5th floor. IAC CATH TECH * MARYSOL Camacho - 07/27/2023 8:34 AM CSTSummary: Triage Note Pt. To ED via [facility] w/ c/o of shortness of breath and Chest Pain at [facility] sine 05:24 this morning during MD assessment patient was found to have weakness and numbness in extremities. Patient put on 02 during transport patient is satting at 91% on Room air at this time. Patient takes Eliquis 5 mg for anticoagulation therapy. VSS. IAC CATH TECH IAC CATH TECH * Catracho Sims MD - 07/27/2023 8:31 AM CST Chief Complaint Chief Complaint Patient presents with Weakness Stroke Alert Shortness Of Breath Chest Pain History of Present Illness Avila Crocker is a 78-year-old male with PMH CAD, diabetes, hypertension, hyperlipidemia, pacemaker presenting to ED via EMS with chest pain. Had transient chest pain, now resolved. Associated with some shortness of breath. EMS noted that patient had subtle right sided facial droop. He also reports right arm and leg feel weak. He initially stated he woke up with those symptoms at 5:24am afterlast known well at 10:30pm, however later said he didn't really notice if he was weak or not on that side until now. He initially reported some right hand and leg numbness, but later reports left hand and leg numbness. Overall, he is a poor historian. Medical History ALLERGIES: Review of patient's allergies indicates: No Known Allergies MEDICATIONS: Prior to Admission medications Medication Sig Start Date End Date Taking? Authorizing Provider amLODIPine 2.5 MG tablet Take 2 tablets (5 mg total) by mouth daily. 12/30/19 Doc [facility] Abstract apixaban (ELIQUIS) 5 MG tablet Take 1 tablet (5 mg total) by mouth 2 (two) times daily. 09/19/22 Madan Palomo MD ATORVASTATIN 80 MG tablet TAKE 1 TABLET BY MOUTH DAILY Patient taking differently: nightly at bedtime. 05/18/19 Vik Colvin MD glipiZIDE 10 MG tablet Take 1 tablet (10 mg total) by mouth 2 (two) times daily. 09/13/14 Doc [facility] lisinopril 40 MG tablet Take 1 tablet [...] Diagnosis Date Coronary artery disease Diabetes mellitus ([facility]/HCC) ([facility]/HCC) Disorder of prostate Hyperlipidemia Hypertension Pacemaker 09/10/2022 [...] No Review of Systems Review of Systems Cardiovascular: Positive for chest pain. Neurological: Positive for weakness and numbness. All other systems reviewed and are negative. Except as noted in HPI, 10 point review of systems was completed and otherwise unremarkable or noncontributory to chief complaint. Physical Exam Filed Vitals: 07/27/23 0837 07/27/23 1000 BP: 134/68 (!) 152/94 Pulse: 78 60 Resp: 20 15 Temp: 98.5 ??F (36.9 ??C) TempSrc: Oral SpO2: 92% 96% Weight: 97.5 kg (215 lb) Height: 1.829 m (6') Physical Exam Vitals and nursing note reviewed. Constitutional: Appearance: He is not toxic-appearing. HENT: Head: Normocephalic and atraumatic. Nose: Nose normal. Mouth/Throat: Mouth: Mucous membranes are moist. Pharynx: Oropharynx is clear. Eyes: Conjunctiva/sclera: Conjunctivae normal. Pupils: Pupils are equal, round, and reactive to light. Cardiovascular: Rate and Rhythm: Normal rate and regular rhythm. Pulses: Normal pulses. Heart sounds: Normal heart sounds. No murmur heard. Pulmonary: Effort: Pulmonary effort is normal. No respiratory distress. Breath sounds: Normal breath sounds. No wheezing or rales. Abdominal: Tenderness: There is no abdominal tenderness. There is no guarding. Musculoskeletal: General: Normal range of motion. Cervical back: Normal range of motion and neck supple. Skin: General: Skin is warm and dry. Neurological: Mental Status: He is alert. Comments: Aox3, mildly confused. No aphasia or dysarthria. Subtle right sided facial droop. Subtle drift in right arm and leg with testing of strength. Subjective decreased sensation BUE and BLE. NIH3. Psychiatric: Mood and Affect: Mood normal. Thought Content: Thought content normal. Diagnostic Studies / Procedures EKG interpretation: Paced rhythm, rate of 76bpm. Qtc 469. Interpreted by myself at 0927. Rhythm strip interpretation: Paced rhythm, rate of 76bpm. Qtc 469. Interpreted by myself at 0927. ELECTROCARDIOGRAMS: Results for orders placed or performed during the hospital encounter of 07/27/[address] [facility] Test Date: 2023-07-27 Pat Name: AVILA CROCKER Department: 68 Room: [place] [address] Gender: Male Cco: Am : 1945 Requested By: Order Number: [id number] Reading MD: Phi Sales Measurements Intervals [place] Rate: 76 P: AK: 0 QRS: -76 QRSD: 177 T: 104 QT: 438 QTc: 495 Interpretive Statements ELECTRONIC VENTRICULAR PACEMAKER ABNORMAL RHYTHM ECG IAC CATH TECH LABORATORY STUDIES: Results for orders placed or performed during the hospital encounter of 07/27/23 CBC W/DIFF AUTOMATED Result Value Ref Range WBC 8.05 4.60 - 9.10 x10'3/uL RBC 3.96 (L) 4.40 - 5.50 x10'6/uL HGB 10.5 (L) 13.1 - 16.0 G/DL HCT 33.6 (L) 39.8 - 48.5 % MCV 84.8 83.0 - 98.0 FL MCH 26.5 (L) 26.8 - 32.1 PG MCHC 31.3 (L) 31.4 - 34.7 G/DL RDW 18.8 (H) 11.6 - 13.8 % PLT 212 145 - 358 x10'3/uL MPV 10.9 8.8 - 12.3 FL NRBC 0.0 % BASOPHILS 0.5 % EOSINOPHILS 1.2 % MONOCYTES 7.1 % LYMPHOCYTES 14.4 % SEG NEUTROPHILS 76.4 % IMMATURE GRANS 0.4 % ABS. LYMPHOCYTES 1.16 1.10 - 3.30 x10'3/uL ABS. MONOCYTES 0.57 0.30 - 0.80 x10'3/uL ABS. EOSINOPHILS 0.10 0.03 - 0.45 x10'3/uL ABS. BASOPHILS 0.04 0.01 - 0.09 x10'3/uL ABS. NUCLEATED RBC'S 0.00 0.00 x10'3/uL ABS. NEUTROPHILS 6.15 (H) 2.30 - 5.70 x10'3/uL ABS. IMMATURE GRANULOCYTES 0.03 0.00 - 0.09 x10'3/uL RBC MORPHOLOGY 1+ COMPREHENSIVE METABOLIC PANEL Result Value Ref Range SODIUM S/P/B 139 136 - 145 MMOL/L POTASSIUM S/P/B 3.9 3.5 - 5.1 MMOL/L CHLORIDE S/P/B 107 98 - 107 MMOL/L CO2 29.0 21.0 - 32.0 MMOL/L GLUCOSE 150 (H) 74 - 106 MG/DL BUN 15 7 - 18 MG/DL CREATININE S/P/B 0.66 (L) 0.70 - 1.30 MG/DL CALCIUM S/P/B 8.7 8.5 - 10.1 MG/DL BILIRUBIN TOTAL S/P/B 1.1 (H) 0.2 - 1.0 MG/DL ALKALINE PHOSPHATASE S/P/B 88 45 - 117 U/L AST 22 15 - 37 U/L ALT 17 16 - 61 U/L TOTAL PROTEIN S/P/B 6.7 6.4 - 8.2 G/DL ALBUMIN S/P/B 3.2 (L) 3.4 - 5.0 G/DL ANION GAP 3.0 (L) 5.0 - 15.0 MMOL/L OSMOLALITY (CALC) 292 MOSM/KG GFR ESTIMATE >90 >89 ML/MIN/1.73 M2 GFR NOTES GFR REFERENCES: TROPONIN, QUANT Result Value Ref Range TROPONIN I HIGH SENSITIVITY 37 0 - 78 ng/L PRO-BRAIN NATRIURETIC PEPTIDE Result Value Ref Range PRO-B TYPE NATRIURETIC PEPTIDE 2,682 (H) <450 PG/ML PROTIME/INR, VENOUS Result Value Ref Range PROTIME 18.5 (H) 9.4 - 12.5 SEC INR 1.6 (H) 0.8 - 1.1 PARTIAL THROMBOPLASTIN TIME,PTT Result Value Ref Range PTT 38.0 (H) 25.1 - 36.5 SEC POCT glucose Result Value Ref Range GLUCOSE POC 165 (H) 70 - 139 MG/DL IMAGING STUDIES CT STROKE(HEAD WO) Final Result by User, [id number] (07/27 858) DATE: 07/27/2023 8:50 AM EXAMINATION: CT of the head CLINICAL HISTORY: Right-sided numbness. Concern for stroke. COMPARISON: 05/14/2023 TECHNIQUE: CT examination of the head without contrast was performed. Axial and multiplanar images obtained. A dose lowering technique was used for this procedure, which may include, but is not limited to, dose reduction technique, automated exposure control, the use of iterative reconstruction, and ALARA (As Low As Reasonably Achievable) / Image Gently techniques. FINDINGS: No acute intracranial hemorrhage, extra-axial collections, intracranial mass effect, or midline shift. Stable small vessel disease, intracranial vascular calcifications, and volume loss. No definite CT evidence of acute territorial infarction, though MRI would be more sensitive. Calvarium unremarkable. Mastoid air cells clear. Mild mucosal thickening in the paranasal sinuses. Visualized orbits unremarkable. IMPRESSION: 1. No definite CT evidence of acute intracranial abnormality, as above. 2. Small vessel disease and volume loss. Ordered By: CATRACHO SIMS Interpreted By: Jaciel Slaughter MD, 07/27/2023 8:55 AM CTA HEAD+NECK Final Result by User, [id number] (07/27 904) DATE: 07/27/2023 8:50 AM INDICATION: Right-sided numbness. Concern for stroke. EXAMINATION: CT angiography of the head and neck with contrast. TECHNIQUE: CT angiography of the head and neck were performed after uneventful intravenous administration of 100mL IOPAMIDOL 76 % IV SOLN. CT dose reduction techniques were utilized. Internal carotid stenosis measured according to NASCET criteria. Axial and 3-D/MIP images were reconstructed and reviewed. A dose lowering technique was used for this procedure, which may include, but is not limited to, dose reduction technique, automated exposure control, the use of iterative reconstruction, and ALARA (As Low As Reasonably Achievable) / Image Gently techniques. COMPARISON: None. FINDINGS: CTA NECK: Aorta and great vessel origins: Aortic arch and mediastinal vessels is incompletely imaged, below the [id number]. Atherosclerotic calcifications noted along the visualized portions of the aortic arch and mediastinal great vessels, without significant narrowing. Right carotid artery: Atherosclerotic calcifications at the bifurcation and cervical ICA, but with less than 50% stenosis. Vascular tortuosity. Left carotid artery: Atherosclerotic calcifications at the bifurcation and cervical ICA, but with less than 50% stenosis. Vascular tortuosity. Right vertebral artery: No significant stenosis. Left vertebral artery: No significant stenosis. CTA HEAD: Atherosclerotic calcifications noted along the intracranial ICA segments, without significant narrowing. Proximal portions of the anterior and middle cerebral arteries are patent. Anterior communicating artery not well-visualized. Posterior circulation codominant. Atherosclerotic calcifications along the vertebral artery V4 segments and inferior basilar artery, but with less than 50% stenosis. Proximal portions of the posterior cerebral arteries, superior cerebellar arteries, and PICA branches are patent. Posterior communicating arteries not well-visualized. SOFT TISSUES: Small vessel disease and volume loss. Mucosal thickening in the paranasal sinuses. Partially imaged pleural effusions. Bilateral groundglass opacities and interlobular septal thickening. Partially imaged left-sided cardiac pacing device. Degenerative changes noted in the spine. IMPRESSION: 1. No evidence of occlusion of the proximal major segments of the [place]. 2. No hemodynamically significant stenosis in the neck. 3. Multifocal intracranial and extracranial atherosclerotic disease, as detailed above. 4. Partially imaged pleural effusions and probable pulmonary edema. Ordered By: CATRACHO SIMS Interpreted By: Jaciel Slaughter MD, 07/27/2023 8:59 AM XR CHEST PORTABLE Final Result by User, [email or web address] (07/27 846) EXAMINATION: X-ray chest HISTORY: Chest pain. Weakness. COMPARISON: Chest x-ray 01/18/2023. TECHNIQUE: Portable AP view chest. FINDINGS: The heart is enlarged. There is central vascular congestion. There is bilateral interstitial prominence. Probable small bilateral pleural effusions. No visible acute focal airspace consolidation. No pneumothorax. There is a left-sided cardiac pacemaker device. There is atherosclerotic calcification of the aorta. IMPRESSION: 1. Cardiomegaly with pulmonary vascular congestion. 2. Small bilateral pleural effusions. Referred By: Interpreted By: Bartolome Dillard DO, 07/27/2023 8:45 AM ED Course / Medical Decision Making Medications aspirin chewable tablet 324 mg (has no administration in time range) iopamidol (ISOVUE-370) 76 % injection 100 mL (100 mLs Intravenous Given 07/27/23 3774) furosemide (LASIX) injection 20 mg (20 mg Intravenous Given 07/27/23 3607) Medical Decision Making 78-year-old male present to ED for evaluation of chest pain has since resolved. EKG paced and he has troponin within normal limit. He did report some right- sided weakness with last known well last night. Plan neurology consulted. CT head and neck negative. Neurology feels likely metabolic or infectious however still cannot entirely excluded. Will plan to admit for observation. Accepted for observation for status by hospitalist Dr. Gant. CXR did show mild CHF. BNP elevated. He did desaturate and require 2L--lasix given. Amount and/or Complexity of Data Reviewed Labs: ordered. Decision-making details documented in ED Course. Radiology: ordered and independent interpretation performed. Decision-making details documented in ED Course. ECG/medicine tests: ordered and independent interpretation performed. Decision- making details documented in ED Course. ED Course as of 07/27/23 1016 Mon Jul 27, [address] Diggs with tele neurology. [EF] [address] Diggs--not candidate for thrombolytic. Feels may be toxic, metabolicprocess however since deficits would recommend admit and check MRI. Continue Eliquis if he is on appropriate dose at home. [EF] 1012 Accepted for observation by Dr. Gant. [EF] ED Course User Index [EF] Catracho Sims MD Clinical Impression Chest pain (Primary) Right sided weakness CHF (congestive heart failure) ([facility]/HCC) ([facility]/HCC) Current Discharge Medication List Disposition: Admit Catracho Sims MD 07/27/23 1013 Catracho Sims MD 07/27/23 1016 IAC CATH TECH IAC CATH TECH documented in this encounter Plan of Treatment Upcoming Encounters Date Type Department Care Team (Latest Contact Info) Description 06/09/2024 2:20 PM CARDIAC CATH TECH Telemedicine [facility] [address] [place] [address] Earnest Drake MD [address] [place], [place] [id number] 06/21/2024 1:30 AM CARDIAC CATH TECH [facility] [address] [place] [address] Madan Palomo MD [address] [place] [address] 03/01/2025 11:00 AM CDT Allied Health/Nurse Visit [place] [address] [place] [address] Norma Rowland PA-C [address] [place] [address] 03/01/2025 11:00 AM CDT Office Visit [facility] [address] [place] [address] Norma Rowland PA-C [address] [place] [address] documented as of this encounter Procedures Procedure Name Priority Date/Time Associated Diagnosis Comments POCT GLUCOSE - ESPINOSA DOCKED DEVICE Routine 07/31/2023 11:07 AM CARDIAC CATH TECH POCT GLUCOSE - ESP[place] DOCKED DEVICE Routine 07/31/2023 5:56 AM CARDIAC CATH TECH BASIC METABOLIC PANEL Routine 07/31/2023 3:29 AM CARDIAC CATH TECH CBC W/DIFF AUTOMATED Routine 07/31/2023 3:29 AM CARDIAC CATH TECH MAGNESIUM Routine 07/31/2023 3:29 AM CARDIAC CATH TECH POCT GLUCOSE - ESPINOS[place] DOCKED DEVICE Routine 07/30/2023 7:45 PM CARDIAC CATH TECH POCT GLUCOSE - ESP[place] DOCKED DEVICE Routine 07/30/2023 4:14 PM CARDIAC CATH TECH POCT GLUCOSE - ESP[place] DOCKED DEVICE Routine 07/30/2023 10:07 AM CARDIAC CATH TECH POCT GLUCOSE - ESP[place] DOCKED DEVICE Routine 07/30/2023 5:57 AM CARDIAC CATH TECH BASIC METABOLIC PANEL Routine 07/30/2023 3:05 AM CARDIAC CATH TECH CBC W/DIFF AUTOMATED Routine 07/30/2023 3:05 AM CARDIAC CATH TECH MAGNESIUM Routine 07/30/2023 3:05 AM CARDIAC CATH TECH POCT GLUCOSE - ESPINOS[place] DOCKED DEVICE Routine 07/29/2023 7:55 PM CARDIAC CATH TECH POCT GLUCOSE - ESPINOSA DOCKED DEVICE Routine 07/29/2023 4:23 PM CARDIAC CATH TECH POCT GLUCOSE - ESPIN[place] DOCKED DEVICE Routine 07/29/2023 11:22 AM CARDIAC CATH TECH BASIC METABOLIC PANEL Routine 07/29/2023 9:23 AM CARDIAC CATH TECH CBC W/DIFF AUTOMATED Routine 07/29/2023 9:23 AM CARDIAC CATH TECH MAGNESIUM Routine 07/29/2023 9:23 AM CARDIAC CATH TECH POCT GLUCOSE - ESPINOSA DOCKED DEVICE Routine 07/29/2023 5:06 AM CARDIAC CATH TECH POCT GLUCOSE - ESPINOSA DOCKED DEVICE Routine 07/28/2023 7:52 PM CARDIAC CATH TECH POCT GLUCOSE - ESPINOSA DOCKED DEVICE Routine 07/28/2023 3:52 PM CARDIAC CATH TECH POCT GLUCOSE - ESPINOSA DOCKED DEVICE Routine 07/28/2023 11:16 AM CARDIAC CATH TECH POCT GLUCOSE - ESPINOSA DOCKED DEVICE Routine 07/28/2023 5:25 AM CARDIAC CATH TECH BASIC METABOLIC PANEL Routine 07/28/2023 4:36 AM CARDIAC CATH TECH CBC W/DIFF AUTOMATED Routine 07/28/2023 4:36 AM CARDIAC CATH TECH THYROID STIM HORMONE TSH Routine 07/28/2023 4:36 AM CARDIAC CATH TECH MAGNESIUM Routine 07/28/2023 4:36 AM CARDIAC CATH TECH POCT GLUCOSE - ESPINOSA DOCKED DEVICE Routine 07/27/2023 8:47 PM CARDIAC CATH TECH POCT GLUCOSE - ESPINOSA DOCKED DEVICE Routine 07/27/2023 4:17 PM CARDIAC CATH TECH USE ECHOCARDIOGRAM Routine 07/27/2023 2: 58 PM CARDIAC CATH TECH TROPONIN, QUANT Routine 07/27/2023 2:50 PM CARDIAC CATH TECH XR SHOULDER RT MIN 2V Today 07/27/2023 1:51 PM CARDIAC CATH TECH URINALYSIS WI REFLEX TO CULTURE STAT 07/27/2023 10:06 AM CARDIAC CATH TECH RESPIRATORY PCR PANEL 2 STAT 07/27/19 24 9:51 AM CARDIAC CATH TECH ECG 12-LEAD STAT 07/27/2023 9:[address] STROKE(HEAD WO) STAT 07/27/2023 8: 54 AM CARDIAC CATH TECH CTA HEAD+NECK STAT 07/27/2023 8:54 AM CARDIAC CATH TECH XR CHEST PORTABLE STAT 07/27/2023 8:4 1 AM CARDIAC CATH TECH CREATININE W/GFR Routine 07/27/2023 8:34 AM CARDIAC CATH TECH PRO-BRAIN NATRIURETIC PEPTIDE STAT 07/27/2023 8:33 AM CARDIAC CATH TECH PARTIAL THROMBOPLASTIN TIME,PTT STAT 07/27/2023 8:33 AM CARDIAC CATH TECH PROTHROMBIN TIME, VENOUS STAT 07/27/2023 8:33 AM CARDIAC CATH TECH COMPREHENSIVE METABOLIC PANEL STAT 07/27/2023 8:33 AM CARDIAC CATH TECH CBC W/DIFF AUTOMATED STAT 07/27/2023 8:33 AM CARDIAC CATH TECH TROPONIN, QUANT STAT 07/27/2023 8:33 AM CARDIAC CATH TECH POCT GLUCOSE - ESPIN[place] DOCKED DEVICE Routine 07/27/2023 8:31 AM CARDIAC CATH TECH documented in this encounter Results * (ABNORMAL) POCT glucose (07/31/2023 11:07 AM CARDIAC CATH TECH) GLUCOSE POC 182(H) 70 - 139 MG/DL 07/31/2023 11:12 AM CARDIAC CATH TECH [facility] 07/31/2023 11:0 7 AM CARDIAC CATH TECH us Lubna Gant MD POCT ORDERABLES - DEVICE Final Result Performing Organization Address [facility] Co de Phone Number [facility] [address] [place] [address], * (ABNORMAL) POCT glucose (07/31/2023 5:56 AM CARDIAC CATH TECH) GLUCOSE POC 164(H) 70 - 139 MG/DL 07/31/2023 5:59 AM CARDIAC CATH TECH [facility] 07/31/2023 5:56 AM CARDIAC CATH TECH us Lubna Gant MD POCT ORDERABLES - DEVICE Final Result Performing Organization Address [facility] Co de Phone Number [facility] [address] [place] [address], * MAGNESIUM (07/31/2023 3:29 AM CARDIAC CATH TECH) MAGNESIUM 2.0 1.6 - 2.6 MG/DL 07/31/2023 4:23 AM CARDIAC CATH TECH [facility] 07/31/2023 3:29 AM CARDIAC CATH TECH Sandra Nunez [employer] LABORATORY Final Result [facility] [address] [place] [address], * (ABNORMAL) BASIC METABOLIC PANEL (07/31/2023 3:29 AM CARDIAC CATH TECH) SODIUM S/P/B 136 136 - 145 MMOL/L 07/31/2023 4:23 AM [facility] POTASSIUM S/P/B 3.8 3.5 - 5.1 MMOL/L 07/31/2023 4:23 AM [facility] CHLORIDE S/P/B 100 98 - 107 MMOL/L 07/31/2023 4:23 AM [facility] CO2 34.0(H) 21.0 - 32.0 MMOL/L 07/31/2023 4:23 AM [facility] GLUCOSE 133(H) 74 - 106 MG/DL 07/31/2023 4:23 AM [facility] BUN 27(H) 7 - 18 MG/DL 07/31/2023 4:23 AM [facility] CREATININE S/P/B 0.86 0.70 - 1.30 MG/DL 07/31/2023 4:23 AM [facility] CALCIUM S/P/B 9.0 8.5 - 10.1 MG/DL 07/31/2023 4:23 AM [facility] ANION GAP 2.0(L) 5.0 - 15.0 MMOL/L 07/31/2023 4:23 AM [facility] OSMOLALITY (CALC) 289 MOSM/KG 024 4:23 AM [facility] Comment:REFERENCE RANGE NOT ESTABLISHED GFR ESTIMATE 88(L) >89 ML/MIN/1. 73 M2 07/31/2023 4:23 AM [facility] GFR NOTES GFR REFERENCE S: 07/31/2023 4:23 AM CARDIAC CATH TECH [facility] Comment: THE ESTIMATED GFR IS [...] ml/min/1.73 m2 G5,KIDNEY FAILURE: <15 ml/min/1.73 m2 07/31/2023 3:29 AM CARDIAC CATH TECH Sandra Nunez NP LABORATORY Final Result Performing Organization Address City/State/[facility] Co de Phone Number [facility] [address] [place] [address], * (ABNORMAL) CBC W/DIFF AUTOMATED (07/31/2023 3:29 AM CARDIAC CATH TECH) WBC 10.25(H) 4.60 - 9.10 x10'3/uL 07/31/2023 4:11 AM CARDIAC CATH TECH [facility] RBC 4.21(L) 4.40 - 5.50 x10'6/uL 07/31/2023 4:11 AM CARDIAC CATH TECH [facility] HGB 11.1(L) 13.1 - 16.0 G/DL 07/31/2023 4:11 AM CARDIAC CATH TECH [facility] HCT 35.5(L) 39.8 - 48.5 % 07/31/2023 4:11 AM [facility] MCV 84.3 83.0 - 98.0 FL 07/31/2023 4:11 AM [facility] MCH 26.4(L) 26.8 - 32.1 PG 07/31/2023 4:11 AM [facility] MCHC 31.3(L) 31.4 - 34.7 G/DL 07/31/2023 4:11 AM [facility] RDW 18.4(H) 11.6 - 13.8 % 07/31/2023 4:11 AM [facility] PLT 214 145 - 358 x10'3/uL 07/31/2023 4:11 AM CARDIAC CATH TECH [facility] MPV 10.8 8.8 - 12.3 FL 07/31/2023 4:11 AM [facility] NRBC 0.0 % 07/31/2023 5:40 AM [facility] BASOPHILS 0.3 % 07/31/2023 5:40 AM [facility] EOSINOPHILS 0.8 % 07/31/2023 5:40 AM [facility] MONOCYTES 10.3 % 07/31/2023 5:40 AM [facility] LYMPHOCYTES 18.9 % 07/31/2023 5:40 AM CARDIAC CATH TECH [facility] SEG NEUTROPHILS 69.3 % 5:40 AM [facility] IMMATURE GRANS % 0.4 % 07/31/19 24 5:40 AM [facility] ABS. LYMPHOCYTES 1.94 1.10 - 3.30 x10'3/uL 07/31/2023 5:40 AM [facility] ABS. MONOCYTES 1.06(H) 0.30 - 0.80 x10'3/uL 07/31/2023 5:40 AM CARDIAC CATH TECH [facility] ABS. EOSINOPHILS 0.08 0.03 - 0.45 x10'3/uL 07/31/2023 5:40 AM [facility] ABS. BASOPHILS 0.03 0.01 - 0.09 x10'3/uL 07/31/2023 5:40 AM CARDIAC CATH TECH [facility] ABS. NUCLEATED RBC'S 0.00 0.00 x10'3/uL 07/31/2023 5:40 AM CARDIAC CATH TECH [facility] ABS. NEUTROPHILS 7.10(H) 2.30 - 5.70 x10'3/uL 07/31/2023 5:40 AM CARDIAC CATH TECH [facility] ABS. IMMATURE GRANULOCYTES 0.04 0.00 - 0.09 x10'3/uL 07/31/2023 5:40 AM CARDIAC CATH TECH [facility] RBC MORPHOLOGY 1+ 07/31/2023 5:40 AM CARDIAC CATH TECH [facility] Comment: ANISOCYTOSIS 1+ POIKILOCYTOSIS 07/31/2023 3:29 AM CARDIAC CATH TECH Sandra Nunez [employer] LABORATORY Final Result Performing Organization Address [facility] Co de Phone Number [facility] [address] [place] [address], * (ABNORMAL) POCT glucose (07/30/2023 7:45 PM CARDIAC CATH TECH) GLUCOSE POC 272(H) 70 - 139 MG/DL 07/30/2023 7:48 PM CARDIAC CATH TECH [facility] 07/30/2023 7:45 PM CARDIAC CATH TECH Lubna Gant MD POCT ORDERABLES - DEVICE Final Result Performing Organization Address [facility] de Phone Number [facility] [address] [place] [address], * (ABNORMAL) POCT glucose (07/30/2023 4:14 PM CARDIAC CATH TECH) GLUCOSE POC 248(H) 70 - 139 MG/DL 07/30/2023 7:48 PM CARDIAC CATH TECH [facility] 07/30/2023 4:14 PM CARDIAC CATH TECH Lubna Gant MD POCT ORDERABLES - DEVICE Final Result Performing Organization Address [facility] de Phone Number [facility] [address] [place] [address], * (ABNORMAL) POCT glucose (07/30/2023 10:07 AM CARDIAC CATH TECH) GLUCOSE POC 228(H) 70 - 139 MG/DL 07/30/2023 10:17 AM CARDIAC CATH TECH [facility] 07/30/2023 10:0 7 AM CARDIAC CATH TECH Lubna Gant MD POCT ORDERABLES - DEVICE Final Result Performing Organization Address [facility] de Phone Number [facility] [address] [place] [address], * (ABNORMAL) POCT glucose (07/30/2023 5:57 AM CARDIAC CATH TECH) GLUCOSE POC 145(H) 70 - 139 MG/DL 07/30/2023 6:05 AM CARDIAC CATH TECH [facility] 07/30/2023 5:57 AM CARDIAC CATH TECH Lubna Gant MD POCT ORDERABLES - DEVICE Final Result Performing Organization Address [facility] de Phone Number [facility] [address] [place] [address], * MAGNESIUM (07/30/2023 3:05 AM CARDIAC CATH TECH) MAGNESIUM 1.7 1.6 - 2.6 MG/DL 07/30/2023 4:32 AM CARDIAC CATH TECH [facility] 07/30/2023 3:05 AM CARDIAC CATH TECH Sandra Nunez [employer] LABORATORY Final Result [facility] [address] [place] [address], [place] [phone] * (ABNORMAL) BASIC METABOLIC PANEL (07/30/2023 3:05 AM CARDIAC CATH TECH) SODIUM S/P/B 135(L) 136 - 145 MMOL/L 07/30/2023 4:32 AM [facility] POTASSIUM S/P/B 3.5 3.5 - 5.1 MMOL/L 07/30/2023 4:32 AM [facility] CHLORIDE S/P/B 98 98 - 107 MMOL/L 07/30/2023 4:32 AM [facility] CO2 33.0(H) 21.0 - 32.0 MMOL/L 07/30/2023 4:32 AM [facility] GLUCOSE 125(H) 74 - 106 MG/DL 07/30/2023 4:32 AM [facility] BUN 21(H) 7 - 18 MG/DL 07/30/2023 4:32 AM [facility] CREATININE S/P/B 0.73 0.70 - 1.30 MG/DL 07/30/2023 4:32 AM [facility] CALCIUM S/P/B 8.9 8.5 - 10.1 MG/DL 07/30/2023 4:32 AM [facility] ANION GAP 4.0(L) 5.0 - 15.0 MMOL/L 07/30/2023 4:32 AM [facility] OSMOLALITY (CALC) 284 MOSM/KG 024 4:32 AM [facility] Comment:REFERENCE RANGE NOT ESTABLISHED GFR ESTIMATE >90 >89 ML/MIN/1. 73 M2 07/30/2023 4:32 AM [facility] GFR NOTES GFR REFERENCE S: 07/30/2023 4:32 AM [facility] Comment: THE ESTIMATED GFR IS [...] ml/min/1.73 m2 G5,KIDNEY FAILURE: <15 ml/min/1.73 m2 07/30/2023 3:05 AM CARDIAC CATH TECH Sandra Nunez NP LABORATORY Final Result [facility] [address] [place] [address], * (ABNORMAL) CBC W/DIFF AUTOMATED (07/30/2023 3:05 AM CARDIAC CATH TECH) WBC 9.28(H) 4.60 - 9.10 x10'3/uL 07/30/2023 4:44 AM CARDIAC CATH TECH [facility] RBC 4.18(L) 4.40 - 5.50 x10'6/uL 07/30/2023 4:44 AM CARDIAC CATH TECH [facility] HGB 11.0(L) 13.1 - 16.0 G/DL 07/30/2023 4:44 AM CARDIAC CATH TECH [facility] HCT 35.3(L) 39.8 - 48.5 % 07/30/2023 4:44 AM CARDIAC CATH TECH [facility] MCV 84.4 83.0 - 98.0 FL 07/30/2023 4:44 AM CARDIAC CATH TECH [facility] MCH 26.3(L) 26.8 - 32.1 PG 07/30/2023 4:44 AM CARDIAC CATH TECH [facility] MCHC 31.2(L) 31.4 - 34.7 G/DL 07/30/2023 4:44 AM [facility] RDW 18.6(H) 11.6 - 13.8 % 07/30/2023 4:44 AM [facility] PLT 220 145 - 358 x10'3/uL 07/30/2023 4:44 AM [facility] MPV 11.1 8.8 - 12.3 FL 07/30/2023 4:44 AM [facility] NRBC 0.0 % 07/30/2023 5:46 AM [facility] BASOPHILS 0.3 % 07/30/2023 5:46 AM [facility] EOSINOPHILS 1.3 % 07/30/2023 5:46 AM [facility] MONOCYTES 8.4 % 07/30/2023 5:46 AM [facility] LYMPHOCYTES 19.5 % 07/30/2023 5:46 AM [facility] SEG NEUTROPHILS 70.3 % 5:46 AM [facility] IMMATURE GRANS % 0.2 % 07/30/19 5:46 AM [facility] ABS. LYMPHOCYTES 1.81 1.10 - 3.30 x10'3/uL 07/30/2023 5:46 AM [facility] ABS. MONOCYTES 0.78 0.30 - 0.80 x10'3/uL 07/30/2023 5:46 AM [facility] ABS. EOSINOPHILS 0.12 0.03 - 0.45 x10'3/uL 07/30/2023 5:46 AM [facility] ABS. BASOPHILS 0.03 0.01 - 0.09 x10'3/uL 07/30/2023 5:46 AM [facility] ABS. NUCLEATED RBC'S 0.00 0.00 x10'3/uL 07/30/2023 5:46 AM CARDIAC CATH TECH [facility] ABS. NEUTROPHILS 6.52(H) 2.30 - 5.70 x10'3/uL 07/30/2023 5:46 AM CARDIAC CATH TECH [facility] ABS. IMMATURE GRANULOCYTES 0.02 0.00 - 0.09 x10'3/uL 07/30/2023 5:46 AM CARDIAC CATH TECH [facility] 07/30/2023 3:05 AM CARDIAC CATH TECH Sandra Nunez [employer] LABORATORY Final Result Performing Organization Address [facility]/ZIP Co de Phone Number [facility] [address] [place] [address], * (ABNORMAL) POCT glucose (07/29/2023 7:55 PM CARDIAC CATH TECH) GLUCOSE POC 224(H) 70 - 139 MG/DL 07/29/2023 8:07 PM CARDIAC CATH TECH [facility] 07/29/2023 7:55 PM CARDIAC CATH TECH Lubna Gant MD POCT ORDERABLES - DEVICE Final Result Performing Organization Address [facility] Co de Phone Number [facility] [address] [place] [address], * (ABNORMAL) POCT glucose (07/29/2023 4:23 PM CARDIAC CATH TECH) GLUCOSE POC 180(H) 70 - 139 MG/DL 07/29/2023 4:44 PM CARDIAC CATH TECH [facility] 07/29/2023 4:23 PM CARDIAC CATH TECH Lubna Gant MD POCT ORDERABLES - DEVICE Final Result Performing Organization Address [facility] Co de Phone Number [facility] [address] [place] [address], * (ABNORMAL) POCT glucose (07/29/2023 11:22 AM CARDIAC CATH TECH) Pathologist [facility] GLUCOSE POC 172(H) 70 - 139 MG/DL 07/29/2023 11:29 AM CARDIAC CATH TECH [facility] 07/29/2023 11:2 2 AM CARDIAC CATH TECH Lubna Gant MD POCT ORDERABLES - DEVICE Final Result [facility] [address] [place] [address], * MAGNESIUM (07/29/2023 9:23 AM CARDIAC CATH TECH) Pathologist [facility] MAGNESIUM 1.7 1.6 - 2.6 MG/DL 07/29/2023 10:06 AM [facility] 07/29/2023 9:23 AM CARDIAC CATH TECH Sandra Nunez [employer] LABORATORY Final Result Performing Organization Address [facility]/ZIP Co de Phone Number [facility] [address] [place] [address], * (ABNORMAL) BASIC METABOLIC PANEL (07/29/2023 9:23 AM CARDIAC CATH TECH) Pathologist [facility] SODIUM S/P/B 137 136 - 145 MMOL/L 07/29/2023 10:06 AM [facility] POTASSIUM S/P/B 4.1 3.5 - 5.1 MMOL/L 07/29/2023 10:06 AM [facility] CHLORIDE S/P/B 100 98 - 107 MMOL/L 07/29/2023 10:06 AM [facility] CO2 34.0(H) 21.0 - 32.0 MMOL/L 07/29/2023 10:06 AM [facility] GLUCOSE 196(H) 74 - 106 MG/DL 07/29/2023 10:06 AM [facility] BUN 17 7 - 18 MG/DL 07/29/2023 10:06 AM [facility] CREATININE S/P/B 0.78 0.70 - 1.30 MG/DL 07/29/2023 10:06 AM [facility] CALCIUM S/P/B 8.9 8.5 - 10.1 MG/DL 07/29/2023 10:06 AM [facility] ANION GAP 3.0(L) 5.0 - 15.0 MMOL/L 07/29/2023 10:06 AM [facility] OSMOLALITY (CALC) 291 MOSM/KG 024 10:06 AM [facility] Comment:REFERENCE RANGE NOT ESTABLISHED GFR ESTIMATE >90 >89 ML/MIN/1. 73 M2 07/29/2023 10:06 AM [facility] GFR NOTES GFR REFERENCE S: 07/29/2023 10:06 AM [facility] Comment: THE ESTIMATED GFR IS [...] ml/min/1.73 m2 G5,KIDNEY FAILURE: <15 ml/min/1.73 m2 07/29/2023 9:23 AM CARDIAC CATH TECH us Sandra Nunez NP LABORATORY Final Result [facility] [address] [place] [address], * (ABNORMAL) CBC W/DIFF AUTOMATED (07/29/2023 9:23 AM CARDIAC CATH TECH) [facility] WBC 9.87(H) 4.60 - 9.10 x10'3/uL 07/29/2023 9:45 AM [facility] RBC 4.29(L) 4.40 - 5.50 x10'6/uL 07/29/2023 9:45 AM [facility] HGB 11.4(L) 13.1 - 16.0 G/DL 07/29/2023 9:45 AM [facility] HCT 36.0(L) 39.8 - 48.5 % 07/29/2023 9:45 AM [facility] MCV 83.9 83.0 - 98.0 FL 07/29/2023 9:45 AM [facility] MCH 26.6(L) 26.8 - 32.1 PG 07/29/2023 9:45 AM [facility] MCHC 31.7 31.4 - 34.7 G/DL 07/29/2023 9:45 AM [facility] RDW 18.6(H) 11.6 - 13.8 % 07/29/2023 9:45 AM [facility] PLT 243 145 - 358 x10'3/uL 07/29/2023 9:45 AM [facility] MPV 10.3 8.8 - 12.3 FL 07/29/2023 9:45 AM [facility] NRBC 0.0 % 07/29/2023 12:13 PM [facility] BASOPHILS 0.4 % 07/29/2023 12:13 PM [facility] EOSINOPHILS 1.3 % 07/29/2023 12:13 PM [facility] MONOCYTES 6.2 % 07/29/2023 12:13 PM [facility] LYMPHOCYTES 13.4 % 07/29/2023 12:13 PM CARDIAC CATH TECH [facility] SEG NEUTROPHILS 78.5 % 12:13 PM CARDIAC CATH TECH [facility] IMMATURE GRANS % 0.2 % 07/29/19 12:13 PM CARDIAC CATH TECH [facility] ABS. LYMPHOCYTES 1.32 1.10 - 3.30 x10'3/uL 07/29/2023 12:13 PM CARDIAC CATH TECH [facility] ABS. MONOCYTES 0.61 0.30 - 0.80 x10'3/uL 07/29/2023 12:13 PM CARDIAC CATH TECH [facility] ABS. EOSINOPHILS 0.13 0.03 - 0.45 x10'3/uL 07/29/2023 12:13 PM CARDIAC CATH TECH [facility] ABS. BASOPHILS 0.04 0.01 - 0.09 x10'3/uL 07/29/2023 12:13 PM CARDIAC CATH TECH [facility] ABS. NUCLEATED RBC'S 0.00 0.00 x10'3/uL 07/29/2023 12:13 PM CARDIAC CATH TECH [facility] ABS. NEUTROPHILS 7.75(H) 2.30 - 5.70 x10'3/uL 07/29/2023 12:13 PM CARDIAC CATH TECH [facility] ABS. IMMATURE GRANULOCYTES 0.02 0.00 - 0.09 x10'3/uL 07/29/2023 12:13 PM CARDIAC CATH TECH [facility] RBC MORPHOLOGY 1+ 07/29/2023 12:13 PM CARDIAC CATH TECH [facility] Comment:ANISOCYTOSIS 07/29/2023 9:23 AM CARDIAC CATH TECH us Sandra Nunez NP LABORATORY Final Result [facility] [address] [place] [address], * POCT glucose (07/29/2023 5:06 AM CARDIAC CATH TECH) GLUCOSE POC 106 70 - 139 MG/DL 07/29/2023 5:14 AM CARDIAC CATH TECH [facility] 07/29/2023 5:06 AM CARDIAC CATH TECH us Lubna Gant MD POCT ORDERABLES - DEVICE Final Result Performing Organization Address [facility] Co de Phone Number [facility] [address] [place] [address], * (ABNORMAL) POCT glucose (07/28/2023 7:52 PM CARDIAC CATH TECH) GLUCOSE POC 185(H) 70 - 139 MG/DL 07/28/2023 8:04 PM CARDIAC CATH TECH [facility] 07/28/2023 7:52 PM CARDIAC CATH TECH us Lubna Gant MD POCT ORDERABLES - DEVICE Final Result Performing Organization Address [facility] de Phone Number [facility] [address] [place] [address], * (ABNORMAL) POCT glucose (07/28/2023 3:52 PM CARDIAC CATH TECH) GLUCOSE POC 173(H) 70 - 139 MG/DL 07/28/2023 3:59 PM CARDIAC CATH TECH [facility] 07/28/2023 3:52 PM CARDIAC CATH TECH us Lubna Gant MD POCT ORDERABLES - DEVICE Final Result Performing Organization Address [facility] Co de Phone Number [facility] [address] [place] [address], * (ABNORMAL) POCT glucose (07/28/2023 11:16 AM CARDIAC CATH TECH) GLUCOSE POC 170(H) 70 - 139 MG/DL 07/28/2023 11:20 AM CARDIAC CATH TECH [facility] 07/28/2023 11:1 6 AM CARDIAC CATH TECH Lubna Gant MD POCT ORDERABLES - DEVICE Final Result Performing Organization Address [facility] Co de Phone Number [facility] [address] [place] [address], * POCT glucose (07/28/2023 5:25 AM CARDIAC CATH TECH) GLUCOSE POC 92 70 - 139 MG/DL 07/28/2023 5:32 AM CARDIAC CATH TECH [facility] 07/28/2023 5:25 AM CARDIAC CATH TECH Lubna Gant MD POCT ORDERABLES - DEVICE Final Result Performing Organization Address [facility] Phone Number [facility] [address] [place] [address], * (ABNORMAL) MAGNESIUM (07/28/2023 4:36 AM CARDIAC CATH TECH) MAGNESIUM 1.5(L) 1.6 - 2.6 MG/DL 07/28/2023 5:24 AM CARDIAC CATH TECH [facility] 07/28/2023 4:36 AM CARDIAC CATH TECH [facility] Final Result Performing Organization Address [facility] Co de Phone Number [facility] [address] [place] [address], * THYROID STIM HORMONE, TSH (07/28/2023 4:36 AM CARDIAC CATH TECH) TSH 2.630 0.358 - 3.740 uIU/ML 07/28/2023 5:24 AM CARDIAC CATH TECH [facility] Comment: ASSAY PERFORMED BY CHEMILUMINESCENCE METHODOLOGY USING [employer]. PATIENT RESULTS DETERMINED BY ASSAYS USING DIFFERENT MANUFACTURERS FOR METHODS MAY NOT BE COMPARABLE. 07/28/2023 4:36 AM CARDIAC CATH TECH [facility] Final Result [facility] [address] [facility] [place] [address], * (ABNORMAL) BASIC METABOLIC PANEL (07/28/2023 4:36 AM CARDIAC CATH TECH) Pathologist [facility] SODIUM S/P/B 140 136 - 145 MMOL/L 07/28/2023 5:24 AM [facility] POTASSIUM S/P/B 3.3(L) 3.5 - 5.1 MMOL/L 07/28/2023 5:24 AM [facility] CHLORIDE S/P/B 103 98 - 107 MMOL/L 07/28/2023 5:24 AM [facility] CO2 36.0(H) 21.0 - 32.0 MMOL/L 07/28/2023 5:24 AM [facility] GLUCOSE 99 74 - 106 MG/DL 07/28/2023 5:24 AM [facility] BUN 12 7 - 18 MG/DL 07/28/2023 5:24 AM [facility] CREATININE S/P/B 0.62(L) 0.70 - 1.30 MG/DL 07/28/2023 5:24 AM [facility] CALCIUM S/P/B 8.8 8.5 - 10.1 MG/DL 07/28/2023 5:24 AM [facility] ANION GAP 1.0(L) 5.0 - 15.0 MMOL/L 07/28/2023 5:24 AM [facility] OSMOLALITY (CALC) 290 MOSM/KG 024 5:24 AM [facility] Comment:REFERENCE RANGE NOT ESTABLISHED GFR ESTIMATE >90 >89 ML/MIN/1. 73 M2 07/28/2023 5:24 AM CARDIAC CATH TECH [facility] GFR NOTES GFR REFERENCE S: 07/28/2023 5:24 AM [facility] Comment: THE ESTIMATED GFR IS [...] ml/min/1.73 m2 G5,KIDNEY FAILURE: <15 ml/min/1.73 m2 07/28/2023 4:36 AM CARDIAC CATH TECH [facility] Final Result [facility] [address] [place] [address], * (ABNORMAL) CBC W/DIFF AUTOMATED (07/28/2023 4:36 AM CARDIAC CATH TECH) WBC 6.04 4.60 - 9.10 x10'3/uL 07/28/2023 4:51 AM CARDIAC CATH TECH [facility] RBC 3.74(L) 4.40 - 5.50 x10'6/uL 07/28/2023 4:51 AM CARDIAC CATH TECH [facility] HGB 10.0(L) 13.1 - 16.0 G/DL 07/28/2023 4:51 AM CARDIAC CATH TECH [facility] HCT 31.5(L) 39.8 - 48.5 % 07/28/2023 4:51 AM [facility] MCV 84.2 83.0 - 98.0 FL 07/28/2023 4:51 AM CARDIAC CATH TECH [facility] MCH 26.7(L) 26.8 - 32.1 PG 07/28/2023 4:51 AM [facility] MCHC 31.7 31.4 - 34.7 G/DL 07/28/2023 4:51 AM [facility] RDW 18.8(H) 11.6 - 13.8 % 07/28/2023 4:51 AM [facility] PLT 204 145 - 358 x10'3/uL 07/28/2023 4:51 AM [facility] MPV 9.6 8.8 - 12.3 FL 07/28/2023 4:51 AM [facility] NRBC 0.0 % 07/28/2023 5:26 AM [facility] BASOPHILS 0.3 % 07/28/2023 5:26 AM [facility] EOSINOPHILS 3.0 % 07/28/2023 5:26 AM [facility] MONOCYTES 7.9 % 07/28/2023 5:26 AM [facility] LYMPHOCYTES 20.2 % 07/28/2023 5:26 AM [facility] SEG NEUTROPHILS 68.4 % 5:26 AM [facility] IMMATURE GRANS % 0.2 % 07/28/19 5:26 AM [facility] ABS. LYMPHOCYTES 1.22 1.10 - 3.30 x10'3/uL 07/28/2023 5:26 AM [facility] ABS. MONOCYTES 0.48 0.30 - 0.80 x10'3/uL 07/28/2023 5:26 AM [facility] ABS. EOSINOPHILS 0.18 0.03 - 0.45 x10'3/uL 07/28/2023 5:26 AM [facility] ABS. BASOPHILS 0.02 0.01 - 0.09 x10'3/uL 07/28/2023 5:26 AM CARDIAC CATH TECH [facility] ABS. NUCLEATED RBC'S 0.00 0.00 x10'3/uL 07/28/2023 5:26 AM CARDIAC CATH TECH [facility] ABS. NEUTROPHILS 4.13 2.30 - 5.70 x10'3/uL 07/28/2023 5:26 AM CARDIAC CATH TECH [facility] ABS. IMMATURE GRANULOCYTES 0.01 0.00 - 0.09 x10'3/uL 07/28/2023 5:26 AM CARDIAC CATH TECH [facility] 07/28/2023 4:36 AM CARDIAC CATH TECH [facility] Final Result Performing Organization Address [facility] de Phone Number [facility] [address] [place] [address], * (ABNORMAL) POCT glucose (07/27/2023 8:47 PM CARDIAC CATH TECH) GLUCOSE POC 175(H) 70 - 139 MG/DL 07/27/2023 8:53 PM CARDIAC CATH TECH [facility] 07/27/2023 8:47 PM CARDIAC CATH TECH Lubna Gant MD POCT ORDERABLES - DEVICE Final Result Performing Organization Address [facility] Co de Phone Number [facility] [address] [place] [address], * (ABNORMAL) POCT glucose (07/27/2023 4:17 PM CARDIAC CATH TECH) GLUCOSE POC 146(H) 70 - 139 MG/DL 07/27/2023 4:19 PM CARDIAC CATH TECH [facility] 07/27/2023 4:17 PM CARDIAC CATH TECH us Lubna Gant MD POCT ORDERABLES - DEVICE Final Result Performing Organization Address [facility]/State/ZIP Co de Phone Number [facility] [address] [place] [address], * USE ECHOCARDIOGRAM (07/27/2023 2:58 PM CARDIAC CATH TECH) Anatomical Region Laterality Modality Cardiac Echocardiogram 07/27/2023 2:22 PM CARDIAC CATH TECH Narrative 07/27/2023 3:29 PM CARDIAC CATH TECH ?Echocardiography Report Pat.Name: ??AVILA CROCKER ?Pat.ID: ?[id number] ? St.Date: ?? 07/27/2023 ? Refer.MD: ??[id number], RONI Concepcion Exam Time: 2:22:00 PM ? Study Type:ECHO WITH CARDIAC DOPPLER COMP Height: ?72 in ? Weight: ?223 lb ? BSA: ? 2.23 m2 ?Age: ??1945,78Y ? Sex: ? M ? BP: ?141/71 ? Sonogrphr: Elvia Diaz RDCS ?Pat. Stat.:Inpatient ? Room: ?513 ? CPT - 4: ?33055 ? Reason for Study:LE Edema, CHF ? Procedures: 2D, M-mode, Doppler, Color Flow, Definity was used to enhance endocardial definition. Portable, IE33-1 SN [id number] / X5-1 SN [id number] ++++++++++++++++++++++++++++++++++++ SUMMARY: ++++++++++++++++++++++++++++++++++++ The left ventricular size is normal. Estimated left ventricular ejection fraction is 55-60%. Left ventricular diastolic function is not reliably assessed. The left atrial volume is severely increased (>48 ml/M2). The peak pulmonary artery systolic pressure is estimated to be approximately 67 mmHg. Moderate tricuspid regurgitation. Severe pulmonary hypertension ++++++++++++++++++++++++++++++++++++ FINDINGS: ++++++++++++++++++++++++++++++++++++ LV: ? The left ventricular size is normal. The left ventricular ?systolic function is normal. Estimated left ventricular ?ejection fraction is 55-60%. The septal E/e' is ?indeterminate at 8-15. The lateral E/e' is normal at <8. ?Left ventricular diastolic function is not reliably ?assessed. RV: ? The right ventricular size is normal. Right ventricular ?systolic function is depressed. TAPSE = 15.1mm (<16 mm ?indicates systolic RV dysfunction). LA: ? The left atrial volume is severely increased (>48 ml/M2). RA: ? Right atrial size is enlarged. NAYELI: ? No evidence of pericardial effusion. AO: ? The aortic root measures 3.3 cm. The proximal ascending ?aorta measures 3.4cm. PA: ? The peak pulmonary artery systolic pressure is estimated to ?be approximately 67 mmHg. Estimated right atrial pressure of ?15 mmHg. SVn: ?Inferior vena cava is enlarged. Inferior vena cava shows ?<50% collapse with respiration consistent with elevated ?right atrial pressure. AV: ? No evidence of aortic valve stenosis. No evidence of aortic ?valve regurgitation. MV: ? Trace mitral regurgitation. No evidence of mitral stenosis. PV: ? Trace pulmonic regurgitation. No evidence of pulmonic valve ?stenosis. TV: ? Moderate tricuspid regurgitation. No evidence of tricuspid ?valve stenosis. ++++++++++++++++++++++++++++++++++++ MEASUREMENTS: ++++++++++++++++++++++++++++++++++++ ?2D Left Ventricle ?? LVIDd ? 6.36 cm ?? (3.6-5.2)* LVIDs ? 4.69 cm ?? (2.3-3.9)* LVPW ?? LVPWd ? 1.05 cm ? Ventricular Septum ?? IVSd ?1.01 cm ? Left Atrium ?? LA a-p ? 5.1 cm ?? (2.8-3.4)+* Aorta ?? Ao Rtd ? 3.3 cm ? Ao Asc ? 3.4 cm ?? (2.1-3.4) LVOT ?? LVOT ? 2.4 cm ?LVOTArea ?4.52 cm2 Ratios ?? IVS LA Biplane LAVol I BP ?50.2 ml/m2 ?DOPPLER LVOT ?? LVOTpkPG ? 6 mmHg ?LVOTmnPG ? 3 mmHg LVOTpkVel ?118 cm/s (70-110)* LVOT SV ?113 ml ?? LVOT TVI ?25.1 cm ?LVOT CO ?105 ml/s AV Forward Flow AV TVI ?27.1 cm ?AV pkPG ?6 mmHg AV pkVel ? 125 cm/s (100-170) Area (TVI) ?4.19 cm2 ??(3-5) AV mnPG ?3 mmHg ?Area (Leo) ?4.27 cm2 ??(3- 5) Mitral Valve ?? MV pkVel ?74.9 cm/s ? MV Forward Flow MV DeTm ?217 msec ?MV pkPG ?2 mmHg MV mnPG ?1 mmHg ?MV mnVel ?40.1 cm/s MV TVI ?19.7 cm ?? (10)+* MV pkE ?67.9 cm/s (60-130) PV Forward Flow PV pkVel ?60.7 cm/s (60-90) ??PV pkPG ?1 mmHg TV Regurg Flow TV pkPG ? 52 mmHg ?TV pkVel ? 362 cm/s (30- 70)* Lat E' ?? Lat e ? 11.6 cm/s ? Lat E/E' ?? Lat E/e ?5.9 ? Med E' ?? Med e ? 6.32 cm/s ? Med E/E' ?? Med E/e ? 10.7 ? Ant S Leo ?? Blood velocity ?9.3 cm/s ? IVC Diam ?? Distance ? 3.2 cm ? LA 2C ?? Value ? 49.8 ml/m2 ? LA 4C ?? Value ? 45.7 ml/m2 ? LA BP Index ?? Value ? 50.2 ml/m2 ? Left Ventricle ?? LV IVRT ?109 msec ? LVOT/AV VTI ?? Value ?0.9 ? RA AREA ?? Area ?38.1 cm2 ? RV Area ?? Area ?24.1 cm2 ? TAPSE ?? Distance ?1.51 cm ? <Electronic Signature> 07/27/2023 03:29 PM Kristina Navarrete M.D. Procedure Note Kristina Navarrete MD - 07/27/2023 Echocardiography Report Pat.Name: AVILA CROCKER Pat.ID: [id number] .Date: 07/27/2023 Refer.MD: [id number], RONI Concepcion Exam Time: 2:22:00 PM Study Type:ECHO WITH CARDIAC DOPPLER COMP Height: 72 in Weight: 223 lb BSA: 2.23 m2 Age: 10 1945,78Y Sex: M BP: 141/71 Sonogrphr: Elvia Diaz RDCS Pat. Stat.:Inpatient Room: 3 CPT - 4: 57118 Reason for Study:LE Edema, CHF Procedures: 2D, M-mode, Doppler, Color Flow, Definity was used to enhance endocardial definition. Portable, IE33-1 SN [id number] / X5-1 SN [id number] ++++++++++++++++++++++++++++++++++++ SUMMARY: ++++++++++++++++++++++++++++++++++++ The left ventricular size is normal. Estimated left ventricular ejection fraction is 55-60%. Left ventricular diastolic function is not reliably assessed. The left atrial volume is severely increased (>48 ml/M2). The peak pulmonary artery systolic pressure is estimated to be approximately 67 mmHg. Moderate tricuspid regurgitation. Severe pulmonary hypertension ++++++++++++++++++++++++++++++++++++ FINDINGS: ++++++++++++++++++++++++++++++++++++ LV: The left ventricular size is normal. The left ventricular systolic function is normal. Estimated left ventricular ejection fraction is 55-60%. The septal E/e' is indeterminate at 8-15. The lateral E/e' is normal at <8. Left ventricular diastolic function is not reliably assessed. RV: The right ventricular size is normal. Right ventricular systolic function is depressed. TAPSE = 15.1mm (<16 mm indicates systolic RV dysfunction). LA: The left atrial volume is severely increased (>48 ml/M2). RA: Right atrial size is enlarged. NAYELI: No evidence of pericardial effusion. AO: The aortic root measures 3.3 cm. The proximal ascending aorta measures 3.4cm. PA: The peak pulmonary artery systolic pressure is estimated to be approximately 67 mmHg. Estimated right atrial pressure of 15 mmHg. SVn: Inferior vena cava is enlarged. Inferior vena cava shows <50% collapse with respiration consistent with elevated right atrial pressure. AV: No evidence of aortic valve stenosis. No evidence of aortic valve regurgitation. MV: Trace mitral regurgitation. No evidence of mitral stenosis. PV: Trace pulmonic regurgitation. No evidence of pulmonic valve stenosis. TV: Moderate tricuspid regurgitation. No evidence of tricuspid valve stenosis. ++++++++++++++++++++++++++++++++++++ MEASUREMENTS: ++++++++++++++++++++++++++++++++++++ 2D Left Ventricle LVIDd 6.36 cm (3.6-5.2)* LVIDs 4.69 cm (2.3-3.9)* LVPW LVPWd 1.05 cm Ventricular Septum IVSd 1.01 cm Left Atrium LA a-p 5.1 cm (2.8-3.4)+* Aorta Ao Rtd 3.3 cm Ao Asc 3.4 cm (2.1-3.4) LVOT LVOT 2.4 cm LVOTArea 4.52 cm2 Ratios IVS LA Biplane LAVol I BP 50.2 ml/m2 DOPPLER LVOT LVOTpkPG 6 mmHg LVOTmnPG 3 mmHg LVOTpkVel 118 cm/s (70-110)* LVOT SV 113 ml LVOT TVI 25.1 cm LVOT CO 105 ml/s AV Forward Flow AV TVI 27.1 cm AV pkPG 6 mmHg AV pkVel 125 cm/s (100-170) Area (TVI) 4.19 cm2 (3-5) AV mnPG 3 mmHg Area (Leo) 4.27 cm2 (3-5) Mitral Valve MV pkVel 74.9 cm/s MV Forward Flow MV DeTm 217 msec MV pkPG 2 mmHg MV mnPG 1 mmHg MV mnVel 40.1 cm/s MV TVI 19.7 cm (10-13)+* MV pkE 67.9 cm/s (60-130) PV Forward Flow PV pkVel 60.7 cm/s (60-90) PV pkPG 1 mmHg TV Regurg Flow TV pkPG 52 mmHg TV pkVel 362 cm/s (30-70)* Lat E' Lat e 11.6 cm/s Lat E/E' Lat E/e 5.9 Med E' Med e 6.32 cm/s Med E/E' Med E/e 10.7 Ant S Leo Blood velocity 9.3 cm/s IVC Diam Distance 3.2 cm LA 2C Value 49.8 ml/m2 LA 4C Value 45.7 ml/m2 LA BP Index Value 50.2 ml/m2 Left Ventricle LV IVRT 109 msec LVOT/AV VTI Value 0.9 RA AREA Area 38.1 cm2 RV Area Area 24.1 cm2 TAPSE Distance 1.51 cm <Electronic Signature> 07/27/2023 03:29 PM Kristina Navarrete M.D. us [facility] Final Result * TROPONIN, QUANT (07/27/2023 2:50 PM CARDIAC CATH TECH) TROPONIN I HIGH SENSITIVITY 31 0 - 78 ng/L 07/27/2023 3:58 PM CARDIAC CATH TECH [facility] 07/27/2023 2:50 PM CARDIAC CATH TECH us [facility] Final Result [facility] [address] [place] [address], * XR SHOULDER RT MIN 2V (07/27/2023 1:51 PM CARDIAC CATH TECH) Anatomical Region Laterality Modality Shoulder Radiographic Betsey ging 07/27/2023 2:01 PM CARDIAC CATH TECH Impressions 07/27/2023 2:02 PM CARDIAC CATH TECH IMPRESSION: 1) No acute bony abnormalities. Moderate degenerative changes and findings suggestive of calcified tendinitis. Ordered By: SIRI PHAN Interpreted By: Humberto Alfonso MD, 07/27/2023 2:01 PM Narrative 07/27/2023 2:02 PM CARDIAC CATH TECH Examination: XR SHOULDER RT MIN 2V Exam time: 07/27/2023 1:51 PM Clinical history: Right shoulder pain. Comparison: No priors. Technique: 3 projections. Findings: There is no malalignment. There are moderate degenerative changes in the shoulder joint and the acromioclavicular joint. No acute bony abnormalities. Surrounding soft tissues are unremarkable. Small calcifications close to the humeral head suggestive of calcified tendinitis. Procedure Note Humberto Alfonso MD - 07/27/2023 Examination: XR SHOULDER RT MIN 2V Exam time: 07/27/2023 1:51 PM Clinical history: Right shoulder pain. Comparison: No priors. Technique: 3 projections. Findings: There is no malalignment. There are moderate degenerativechanges in the shoulder joint and the acromioclavicular joint. No acutebony abnormalities. Surrounding soft tissues are unremarkable. Smallcalcifications close to the humeral head suggestive of calcifiedtendinitis. IMPRESSION: 1) No acute bony abnormalities. Moderate degenerative changes and findingssuggestive of calcified tendinitis. Ordered By: SIRI PHAN Interpreted By: Humberto Alfonso MD, 07/27/2023 2:01 PM [facility]i [facility] GENERAL IMAGING Final Result * (ABNORMAL) URINALYSIS WI REFLEX TO CULTURE (07/27/2023 10:06 AM CARDIAC CATH TECH) COLOR (U) LIGHT YELLOW 07/27/2023 10:56 AM [facility] TRANSPARENCY CLEAR 07/27/2023 10:56 AM [facility] SPECIFIC GRAVITY (U) 1.025 1.003 - 1.030 07/27/2023 10:56 AM [facility] U PH 6.5 5.0 - 9.0 07/27/2023 10:56 AM [facility] LEUKOCYTES (U) NEGATIVE NEGATIVE 07/27/2023 10:56 AM [facility] NITRITES NEGATIVE NEGATIVE 07/27/2023 10:56 AM [facility] PROTEIN RANDOM (U) 1+(A) NEGATIVE 07/27/2023 10:56 AM [facility] GLUCOSE (U) NORMAL NORMAL 07/27/2023 10:56 AM [facility] KETONES MG/DL (U) NEGATIVE NEGATIVE 07/27/2023 10:56 AM [facility] UROBILINOGEN NORMAL NORMAL MG/DL 07/27/2023 10:56 AM [facility] BILIRUBIN (U) NEGATIVE NEGATIVE 07/27/2023 10:56 AM [facility] BLOOD (U) NEGATIVE NEGATIVE 07/27/2023 10:56 AM [facility] CULTURE & SENSITIVITY INDICATED? CULTURE IS NOT INDICATED 07/27/2023 10:56 AM [facility] MUCUS PRESENT 07/27/2023 10:56 AM [facility] WBC/HPF 0-5 0 - 5 /HPF 07/27/2023 10:56 AM [facility] RBC/HPF 0-5 0 - 5 /HPF 07/27/2023 10:56 AM [facility] COMMENT (U) URINE RESULTS 07/27/2023 10:56 AM [facility] URINE SPECIMEN / Unknown 07/27/2023 10:06 AM [facility] us Catracho Sims MD URINE ORDERABLES Final Result [facility] [address] [place] [address], * RESPIRATORY PCR PANEL 2 (07/27/2023 9:51 AM CARDIAC CATH TECH) ADENOVIRUS PCR (RESP) NOT DETECTED NOT DETECTED 07/27/2023 10:47 AM [facility] CORONAVIRUS 229E PCR (RESP) NOT DETECTED NOT DETECTED 07/27/2023 10:47 AM [facility] CORONAVIRUS HKU1 PCR (RESP) NOT DETECTED NOT DETECTED 07/27/2023 10:47 AM [facility] CORONAVIRUS NL63 PCR (RESP) NOT DETECTED NOT DETECTED 07/27/2023 10:47 AM [facility] CORONAVIRUS OC43 PCR (RESP) NOT DETECTED NOT DETECTED 07/27/2023 10:47 AM [facility] METAPNEUMOVIRUS PCR (RESP) NOT DETECTED NOT DETECTED 07/27/2023 10:47 AM [facility] RHINOVIRUS/ENTEROV IRUS PCR (RESP) NOT DETECTED NOT DETECTED 07/27/2023 10:47 AM [facility] INFLUENZA A PCR (RESP) NOT DETECTED NOT DETECTED 07/27/2023 10:47 AM [facility] INFLUENZA B PCR (RESP) NOT DETECTED NOT DETECTED 07/27/2023 10:47 AM [facility] PARAINFLUENZA 1 PCR (RESP) NOT DETECTED NOT DETECTED 07/27/2023 10:47 AM [facility] PARAINFLUENZA 2 PCR (RESP) NOT DETECTED NOT DETECTED 07/27/2023 10:47 AM [facility] PARAINFLUENZA 3 PCR (RESP) NOT DETECTED NOT DETECTED 07/27/2023 10:47 AM [facility] PARAINFLUENZA 4 PCR (RESP) NOT DETECTED NOT DETECTED 07/27/2023 10:47 AM [facility] RSV PCR (RESP) NOT DETECTED NOT DETECTED 07/27/2023 10:47 AM [facility] B PARAPERTUSIS PCR (RESP) NOT DETECTED NOT DETECTED 07/27/2023 10:47 AM [facility] BORDETELLA PERTUSSIS PCR (RESP) NOT DETECTED NOT DETECTED 07/27/2023 10:47 AM [facility] CHLAMYDOPHILA PNEUMONIAE PCR (RESP) NOT DETECTED NOT DETECTED 07/27/2023 10:47 AM [facility] MYCOPLASMA PNEUMONIAE PCR (RESP) NOT DETECTED NOT DETECTED 07/27/2023 10:47 AM [facility] CORONAVIRUS SARS COV 2 PCR (RESP) NOT DETECTED NOT DETECTED 07/27/2023 10:47 AM [facility] NASOPHARYNGEAL SWAB / Unknown 07/27/2023 9:51 AM CARDIAC CATH TECH us Catracho Sims MD MICROBIOLOGY - GENERAL ORDERABL ES Final Result [facility] [address] [place] [address], * ECG 12 lead (07/27/2023 9:27 AM CARDIAC CATH TECH) 07/27/2023 9:27 AM CARDIAC CATH TECH Narrative [facility] - 07/27/2023 9:04 AM CARDIAC CATH TECH ?[facility] ? Test Date: ?2023-07-27 Pat Name: ? AVILA CROCKER ?Department: ?? 68 ? Room: ? [id number] Gender: ? Male ? Cco: ?? Am : ?1945 ? Requested By: ?? Order Number: [id number] ? Rhiannon PEREZ: ?? Phi Sales ? Measurements Intervals ?[place] ? Rate: ? 76 ? P: ? AK: ? 0 ?QRS: ?-76 QRSD: ? 177 ?T: ?104 QT: ? 438 ? QTc: ?495 ? Interpretive Statements ELECTRONIC VENTRICULAR PACEMAKER ABNORMAL RHYTHM ECG IAC CATH TECH Procedure Note Phi Sales MD - 07/27/2023 [facility] Test Date: 2023-07-27 Pat Name: AVILA CROCKER Department: 68 Room: [id number] Gender: Male Cco: Am : 1945 Requested By: Order Number: [id number] Reading MD: Phi Sales Measurements Intervals [place] Rate: 76 P: AK: 0 QRS: -76 QRSD: 177 T: 104 QT: 438 QTc: 495 Interpretive Statements ELECTRONIC VENTRICULAR PACEMAKER ABNORMAL RHYTHM ECG IAC CATH TECH us Catracho Sims MD ECG ORDERABLES Final Result [facility] * CTA HEAD+NECK (07/27/2023 8:54 AM CARDIAC CATH TECH) Anatomical Region Laterality Modality Head, Neck Computed Tomogra phy 07/27/2023 8:59 AM CARDIAC CATH TECH Impressions 07/27/2023 9:04 AM CARDIAC CATH TECH IMPRESSION: 1. No evidence of occlusion of the proximal major segments of the [place]. 2. No hemodynamically significant stenosis in the neck. 3. Multifocal intracranial and extracranial atherosclerotic disease, as detailed above. 4. Partially imaged pleural effusions and probable pulmonary edema. Ordered By: CATRACHO SIMS Interpreted By: Jaciel Slaughter MD, 07/27/2023 8:59 AM Narrative 07/27/2023 9:04 AM CARDIAC CATH TECH DATE: 07/27/2023 8:50 AM INDICATION: Right-sided numbness. Concern for stroke. EXAMINATION: CT angiography of the head and neck with contrast. TECHNIQUE: CT angiography of the head and neck were performed after uneventful intravenous administration of 100mL IOPAMIDOL 76 % IV SOLN. CT dose reduction techniques were utilized. Internal carotid stenosis measured according to NASCET criteria. Axial and 3-D/MIP images were reconstructed and reviewed. A dose lowering technique was used for this procedure, which may include, but is not limited to, dose reduction technique, automated exposure control, the use of iterative reconstruction, and ALARA (As Low As Reasonably Achievable) / Image Gently techniques. COMPARISON: None. ? FINDINGS: CTA NECK: Aorta and great vessel origins: Aortic arch and mediastinal vessels is incompletely imaged, below the [id number]. Atherosclerotic calcifications noted along the visualized portions of the aortic arch and mediastinal great vessels, without significant narrowing. Right carotid artery: Atherosclerotic calcifications at the bifurcation and cervical ICA, but with less than 50% stenosis. Vascular tortuosity. Left carotid artery: Atherosclerotic calcifications at the bifurcation and cervical ICA, but with less than 50% stenosis. Vascular tortuosity. Right vertebral artery: No significant stenosis. Left vertebral artery: No significant stenosis. CTA HEAD: Atherosclerotic calcifications noted along the intracranial ICA segments, without significant narrowing. Proximal portions of the anterior and middle cerebral arteries are patent. Anterior communicating artery not well-visualized. Posterior circulation codominant. Atherosclerotic calcifications along the vertebral artery V4 segments and inferior basilar artery, but with less than 50% stenosis. Proximal portions of the posterior cerebral arteries, superior cerebellar arteries, and PICA branches are patent. Posterior communicating arteries not well- visualized. SOFT TISSUES: Small vessel disease and volume loss. Mucosal thickening in the paranasal sinuses. Partially imaged pleural effusions. Bilateral groundglass opacities and interlobular septal thickening. Partially imaged left-sided cardiac pacing device. Degenerative changes noted in the spine. Procedure Note Jaciel Slaughter MD - 07/27/2023 DATE: 07/27/2023 8:50 AM INDICATION: Right-sided numbness. Concern for stroke. EXAMINATION: CT angiography of the head and neck with contrast. TECHNIQUE: CT angiography of the head and neck were performed afteruneventful intravenous administration of 100mL IOPAMIDOL 76 % IV SOLN. CTdose reduction techniques were utilized. Internal carotid stenosismeasured according to NASCET criteria. Axial and 3-D/MIP images werereconstructed and reviewed. A dose lowering technique was used for this procedure, which may include,but is not limited to, dose reduction technique, automated exposurecontrol, the use of iterative reconstruction, and ALARA (As Low AsReasonably Achievable) / Image Gently techniques. COMPARISON: None. FINDINGS: CTA NECK: Aorta and great vessel origins: Aortic arch and mediastinal vessels isincompletely imaged, below the [id number]. Atheroscleroticcalcifications noted along the visualized portions of the aortic arch andmediastinal great vessels, without significant narrowing. Right carotid artery: Atherosclerotic calcifications at the bifurcationand cervical ICA, but with less than 50% stenosis. Vascular tortuosity. Left carotid artery: Atherosclerotic calcifications at the bifurcation andcervical ICA, but with less than 50% stenosis. Vascular tortuosity. Right vertebral artery: No significant stenosis. Left vertebral artery: No significant stenosis. CTA HEAD: Atherosclerotic calcifications noted along the intracranial ICA segments,without significant narrowing. Proximal portions of the anterior andmiddle cerebral arteries are patent. Anterior communicating artery notwell-visualized. Posterior circulation codominant. Atherosclerotic calcifications along thevertebral artery V4 segments and inferior basilar artery, but with lessthan 50% stenosis. Proximal portions of the posterior cerebral arteries,superior cerebellar arteries, and PICA branches are patent. Posteriorcommunicating arteries not well- visualized. SOFT TISSUES: Small vessel disease and volume loss. Mucosal thickening in the paranasalsinuses. Partially imaged pleural effusions. Bilateral groundglassopacities and interlobular septal thickening. Partially imaged left-sidedcardiac pacing device. Degenerative changes noted in the spine. IMPRESSION: 1. No evidence of occlusion of the proximal major segments of the circleof Hauser. 2. No hemodynamically significant stenosis in the neck. 3. Multifocal intracranial and extracranial atherosclerotic disease, asdetailed above. 4. Partially imaged pleural effusions and probable pulmonary edema. Ordered By: CATRACHO SIMS Interpreted By: Jaciel Slaughter MD, 07/27/2023 8:59 AM Catracho Sims MD CT Final Result * CT STROKE(HEAD WO) (07/27/2023 8:54 AM CARDIAC CATH TECH) Anatomical Region Laterality Modality Head Computed Tomogra phy 07/27/2023 8:55 AM CARDIAC CATH TECH Impressions 07/27/2023 8:58 AM CARDIAC CATH TECH IMPRESSION: 1. No definite CT evidence of acute intracranial abnormality, as above. 2. Small vessel disease and volume loss. Ordered By: CATRACHO SIMS Interpreted By: Jaciel Slaughter MD, 07/27/2023 8:55 AM Narrative 07/27/2023 8:58 AM CARDIAC CATH TECH DATE: 07/27/2023 8:50 AM EXAMINATION: CT of the head CLINICAL HISTORY: Right-sided numbness. Concern for stroke. COMPARISON: 05/14/2023 TECHNIQUE: CT examination of the head without contrast ??was performed. Axial and multiplanar images obtained. A dose lowering technique was used for this procedure, which may include, but is not limited to, dose reduction technique, automated exposure control, the use of iterative reconstruction, and ALARA (As Low As Reasonably Achievable) / Image Gently techniques. FINDINGS: No acute intracranial hemorrhage, extra-axial collections, intracranial mass effect, or midline shift. Stable small vessel disease, intracranial vascular calcifications, and volume loss. No definite CT evidence of acute territorial infarction, though MRI would be more sensitive. Calvarium unremarkable. Mastoid air cells clear. Mild mucosal thickening in the paranasal sinuses. Visualized orbits unremarkable. Procedure Note Jaciel Slaughter MD - 07/27/2023 DATE: 07/27/2023 8:50 AM EXAMINATION: CT of the head CLINICAL HISTORY: Right-sided numbness. Concern for stroke. COMPARISON: 05/14/2023 TECHNIQUE: CT examination of the head without contrast was performed.Axial and multiplanar images obtained. A dose lowering technique was used for this procedure, which may include,but is not limited to, dose reduction technique, automated exposurecontrol, the use of iterative reconstruction, and ALARA (As Low AsReasonably Achievable) / Image Gently techniques. FINDINGS: No acute intracranial hemorrhage, extra-axial collections, intracranialmass effect, or midline shift. Stable small vessel disease, intracranialvascular calcifications, and volume loss. No definite CT evidence of acuteterritorial infarction, though MRI would be more sensitive. Calvariumunremarkable. Mastoid air cells clear. Mild mucosal thickening in theparanasal sinuses. Visualized orbits unremarkable. IMPRESSION: 1. No definite CT evidence of acute intracranial abnormality, as above. 2. Small vessel disease and volume loss. Ordered By: CATRACHO SIMS Interpreted By: Jaciel Slaughter MD, 07/27/2023 8:55 AM Catracho Sims MD CT Final Result * XR CHEST PORTABLE (07/27/2023 8:41 AM CARDIAC CATH TECH) Anatomical Region Laterality Modality Chest Radiographic Betsey ging 07/27/2023 8:45 AM CARDIAC CATH TECH Impressions 07/27/2023 8:46 AM CARDIAC CATH TECH IMPRESSION: 1. ??Cardiomegaly with pulmonary vascular congestion. 2. ??Small bilateral pleural effusions. Referred By: ?? Interpreted By: Bartolome Dillard DO, 07/27/2023 8:45 AM Narrative 07/27/2023 8:46 AM CARDIAC CATH TECH EXAMINATION: X-ray chest HISTORY: Chest pain. ??Weakness. COMPARISON: Chest x-ray 01/18/2023. TECHNIQUE: Portable AP view chest. FINDINGS: The heart is enlarged. ??There is central vascular congestion. ??There is bilateral interstitial prominence. ??Probable small bilateral pleural effusions. ??No visible acute focal airspace consolidation. ??No pneumothorax. ??There is a left-sided cardiac pacemaker device. ??There is atherosclerotic calcification of the aorta. ?? Procedure Note Bartolome Dillard DO - 07/27/2023 EXAMINATION: X-ray chest HISTORY: Chest pain. Weakness. COMPARISON: Chest x-ray 01/18/2023. TECHNIQUE: Portable AP view chest. FINDINGS: The heart is enlarged. There is central vascular congestion. There isbilateral interstitial prominence. Probable small bilateral pleuraleffusions. No visible acute focal airspace consolidation. Nopneumothorax. There is a left-sided cardiac pacemaker device. There isatherosclerotic calcification of the aorta. IMPRESSION: 1. Cardiomegaly with pulmonary vascular congestion. 2. Small bilateral pleural effusions. Referred By: Interpreted By: Bartolome Dillard DO, 07/27/2023 8:45 AM Catracho Sims MD GENERAL IMAGING Final Result * CREATININE W/GFR (07/27/2023 8:34 AM CARDIAC CATH TECH) CREATININE WHOLE BLOOD 0.6 0.6 - 1.3 mg/dL 07/27/2023 1:48 PM CARDIAC CATH TECH [facility] GFR ESTIMATE >90 >90 ml/min/1.7 3 m2 07/27/2023 1:48 PM CARDIAC CATH TECH [facility] 07/27/2023 8:34 AM CARDIAC CATH TECH Lubna Gant MD POINT OF CARE TEST ORDERABLES F inal Result [facility] [address] [place] [address], [place] [phone] * (ABNORMAL) PARTIAL THROMBOPLASTIN TIME,PTT (07/27/2023 8:33 AM CARDIAC CATH TECH) PTT 38.0(H) 25.1 - 36.5 SEC 07/27/2023 9:08 AM CARDIAC CATH TECH [facility] Comment:THERAPEUTIC RANGE: 4 6.2-77.0 SEC 07/27/2023 8:33 AM CARDIAC CATH TECH us Catracho Sims MD LABORATORY Final Result Performing Organization Address [facility]/ZIP Co de Phone Number [facility] [address] [place] [address], * (ABNORMAL) PROTIME/INR, VENOUS (07/27/2023 8:33 AM CARDIAC CATH TECH) PROTIME 18.5(H) 9.4 - 12.5 SEC 07/27/2023 9:08 AM CARDIAC CATH TECH [facility] INR 1.6(H) 0.8 - 1.1 07/27/2023 9:08 AM [facility] 07/27/2023 8:33 AM CARDIAC CATH TECH us Catracho Sims MD LABORATORY Final Result Performing Organization Address [facility] Co de Phone Number [facility] [address] [place] [address], * (ABNORMAL) PRO-BRAIN NATRIURETIC PEPTIDE (07/27/2023 8:33 AM CARDIAC CATH TECH) PRO-B TYPE NATRIURETIC PEPTIDE 2,682(H) <450 PG/ML 07/27/2023 9:19 AM CARDIAC CATH TECH [facility] Comment: CUT POINTS ESTABLISHED BY [...] OF 89% AND 72% FOR ACUTE CHF. 07/27/2023 8:33 AM CARDIAC CATH TECH us Catracho Sims MD LABORATORY Final Result Performing Organization Address [facility]/ZIP Co de Phone Number [facility] [address] [place] [address], * TROPONIN, QUANT (07/27/2023 8:33 AM CARDIAC CATH TECH) TROPONIN I HIGH SENSITIVITY 37 0 - 78 ng/L 07/27/2023 9:19 AM [facility] 07/27/2023 8:33 AM CARDIAC CATH TECH us Catracho Sims MD LABORATORY Final Result Performing Organization Address [facility] de Phone Number [facility] [address] [place] [address], * (ABNORMAL) COMPREHENSIVE METABOLIC PANEL (07/27/2023 8:33 AM CARDIAC CATH TECH) SODIUM S/P/B 139 136 - 145 MMOL/L 07/27/2023 9:19 AM [facility] POTASSIUM S/P/B 3.9 3.5 - 5.1 MMOL/L 07/27/2023 9:19 AM [facility] CHLORIDE S/P/B 107 98 - 107 MMOL/L 07/27/2023 9:19 AM [facility] CO2 29.0 21.0 - 32.0 MMOL/L 07/27/2023 9:19 AM [facility] GLUCOSE 150(H) 74 - 106 MG/DL 07/27/2023 9:19 AM [facility] BUN 15 7 - 18 MG/DL 07/27/2023 9:19 AM [facility] CREATININE S/P/B 0.66(L) 0.70 - 1.30 MG/DL 07/27/2023 9:19 AM [facility] CALCIUM S/P/B 8.7 8.5 - 10.1 MG/DL 07/27/2023 9:19 AM [facility] BILIRUBIN TOTAL S/P/B 1.1(H) 0.2 - 1.0 MG/DL 07/27/2023 9:19 AM [facility] ALKALINE PHOSPHATASE S/P/B 88 45 - 117 U/L 07/27/2023 9:19 AM [facility] AST 22 15 - 37 U/L 07/27/2023 9:19 AM [facility] ALT 17 16 - 61 U/L 07/27/2023 9:19 AM [facility] TOTAL PROTEIN S/P/B 6.7 6.4 - 8.2 G/DL 07/27/2023 9:19 AM [facility] ALBUMIN S/P/B 3.2(L) 3.4 - 5.0 G/DL 07/27/2023 9:19 AM [facility] ANION GAP 3.0(L) 5.0 - 15.0 MMOL/L 07/27/2023 9:19 AM [facility] OSMOLALITY (CALC) 292 MOSM/KG 024 9:19 AM [facility] Comment:REFERENCE RANGE NOT ESTABLISHED GFR ESTIMATE >90 >89 ML/MIN/1. 73 M2 07/27/2023 9:19 AM [facility] GFR NOTES GFR REFERENCE S: 07/27/2023 9:19 AM [facility] Comment: THE ESTIMATED GFR IS [...] ml/min/1.73 m2 G5,KIDNEY FAILURE: <15 ml/min/1.73 m2 07/27/2023 8:33 AM CARDIAC CATH TECH us Catracho Sims MD LABORATORY Final Result [facility] [address] [place] [address], [place] [phone] * (ABNORMAL) CBC W/DIFF AUTOMATED (07/27/2023 8:33 AM CARDIAC CATH TECH) WBC 8.05 4.60 - 9.10 x10'3/uL 07/27/2023 8:58 AM CARDIAC CATH TECH [facility] RBC 3.96(L) 4.40 - 5.50 x10'6/uL 07/27/2023 8:58 AM CARDIAC CATH TECH [facility] HGB 10.5(L) 13.1 - 16.0 G/DL 07/27/2023 8:58 AM CARDIAC CATH TECH [facility] HCT 33.6(L) 39.8 - 48.5 % 07/27/2023 8:58 AM CARDIAC CATH TECH [facility] MCV 84.8 83.0 - 98.0 FL 07/27/2023 8:58 AM CARDIAC CATH TECH [facility] MCH 26.5(L) 26.8 - 32.1 PG 07/27/2023 8:58 AM CARDIAC CATH TECH [facility] MCHC 31.3(L) 31.4 - 34.7 G/DL 07/27/2023 8:58 AM [facility] RDW 18.8(H) 11.6 - 13.8 % 07/27/2023 8:58 AM [facility] PLT 212 145 - 358 x10'3/uL 07/27/2023 8:58 AM [facility] MPV 10.9 8.8 - 12.3 FL 07/27/2023 8:58 AM [facility] NRBC 0.0 % 07/27/2023 9:34 AM [facility] BASOPHILS 0.5 % 07/27/2023 9:34 AM [facility] EOSINOPHILS 1.2 % 07/27/2023 9:34 AM [facility] MONOCYTES 7.1 % 07/27/2023 9:34 AM [facility] LYMPHOCYTES 14.4 % 07/27/2023 9:34 AM [facility] SEG NEUTROPHILS 76.4 % 9:34 AM [facility] IMMATURE GRANS % 0.4 % 07/27/19 9:34 AM [facility] ABS. LYMPHOCYTES 1.16 1.10 - 3.30 x10'3/uL 07/27/2023 9:34 AM [facility] ABS. MONOCYTES 0.57 0.30 - 0.80 x10'3/uL 07/27/2023 9:34 AM [facility] ABS. EOSINOPHILS 0.10 0.03 - 0.45 x10'3/uL 07/27/2023 9:34 AM [facility] ABS. BASOPHILS 0.04 0.01 - 0.09 x10'3/uL 07/27/2023 9:34 AM [facility] ABS. NUCLEATED RBC'S 0.00 0.00 x10'3/uL 07/27/2023 9:34 AM [facility] ABS. NEUTROPHILS 6.15(H) 2.30 - 5.70 x10'3/uL 07/27/2023 9:34 AM CARDIAC CATH TECH [facility] ABS. IMMATURE GRANULOCYTES 0.03 0.00 - 0.09 x10'3/uL 07/27/2023 9:34 AM [facility] RBC MORPHOLOGY 1+ 07/27/2023 9:34 AM CARDIAC CATH TECH [facility] Comment: ANISOCYTOSIS 1+ OVALOCYTES 2+ SCHISTOCYTES 07/27/2023 8:33 AM CARDIAC CATH TECH us Catracho Sims MD LABORATORY Final Result Performing Organization Address [facility]/ZIP Co de Phone Number [facility] [address] [place] [address], * (ABNORMAL) POCT glucose (07/27/2023 8:31 AM CARDIAC CATH TECH) [facility] GLUCOSE POC 165(H) 70 - 139 MG/DL 07/27/2023 8:33 AM CARDIAC CATH TECH [facility] 07/27/2023 8:31 AM CARDIAC CATH TECH us Catracho Sims MD POCT ORDERABLES - DEVICE Final Result Performing Organization Address [facility] Co de Phone Number [facility] [address] [place] [address], documented in this encounter Visit Diagnoses Diagnosis CHF (congestive heart failure) ([facility])- Primary Congestive heart failure, unspecified Chest pain Chest pain, unspecified Right sided weakness Muscle weakness (generalized) CHF (congestive heart failure) ([facility]) Congestive heart failure, unspecified Acute heart failure ([facility]) Heart failure, unspecified documented in this encounter Admitting Diagnoses Diagnosis Neurological deficit present Other symptoms involving nervous and musculoskeletal systems CHF (congestive heart failure) ([facility]) Congestive heart failure, unspecified Acute heart failure ([facility]) Heart failure, unspecified documented in this encounter Administered Medications Inactive Administered Medications - up to 3 most recent administrations Medication Order MAR Action Action Date Dose Rate Site acetaminophen (TYLENOL) tablet 650 mg 650 mg, Oral, Every 4 hours PRN, Mild pain (Scale 1 - 3), Starting on Thu07/27/23 at 1159, Until Thu07/31/23 at 1531, Maximum dose of acetaminophen is 4000 mg from all sources in 24 hours. Given 07/30/2023 6:03 PM CARDIAC CATH TECH 650 mg Given 07/28/2023 6:21 AM CARDIAC CATH TECH 650 mg apixaban (ELIQUIS) tablet 5 mg 5 mg, Oral, 2 times daily, Indications: Atrial Fibrillation, First dose on Thu07/27/23 at 2100, Until DiscontinuedIndications:Atrial Fibrillation Given 07/31/2023 8:11 AM CARDIAC CATH TECH 5 mg Given 07/30/2023 8:48 PM CARDIAC CATH TECH 5 mg Given 07/30/2023 9:11 AM CARDIAC CATH TECH 5 mg aspirin chewable tablet 324 mg 324 mg, Oral, Once, 1 dose, On Thu07/27/23 at 1015 Given 07/27/2023 10:18 AM CARDIAC CATH TECH 324 mg atorvastatin (LIPITOR) tablet 80 mg 80 mg, Oral, Nightly at bedtime, First dose on Thu07/27/23 at 2100, Until Discontinued Given 07/30/2023 8:49 PM CARDIAC CATH TECH 80 mg Given 07/29/2023 8:21 PM CARDIAC CATH TECH 80 mg Given 07/28/2023 8:19 PM CARDIAC CATH TECH 80 mg carvedilol (COREG) tablet 6.25 mg 6.25 mg, Oral, 2 times daily, First dose (after last modification) on Thu07/27/23 at 2100, Until Discontinued, Take with meal or snack Given 07/31/2023 8:11 AM CARDIAC CATH TECH 6.25 mg Given 07/30/2023 8:48 PM CARDIAC CATH TECH 6.25 mg Given 07/30/2023 9:11 AM CARDIAC CATH TECH 6.25 mg furosemide (LASIX) injection 20 mg 20 mg, Intravenous, Once, 1 dose, On Thu07/27/23 at 0930, Administer IV push 20-40mg/min. Given 07/27/2023 9:48 AM CARDIAC CATH TECH 20 mg furosemide (LASIX) injection 40 mg 40 mg, Intravenous, 2 times daily, First dose on Thu07/27/23 at 1700, Until Discontinued, Administer IV push 20-40mg/min. Given 07/29/2023 4:14 PM CARDIAC CATH TECH 40 mg Given 07/29/2023 9:44 AM CARDIAC CATH TECH 40 mg Given 07/28/2023 4:50 PM CARDIAC CATH TECH 40 mg furosemide (LASIX) tablet 40 mg 40 mg, Oral, Daily, First dose (after last modification) on Thu07/30/23 at 0900, Until Discontinued Given 07/31/2023 8:11 AM CARDIAC CATH TECH 40 mg Given 07/30/2023 9:11 AM CARDIAC CATH TECH 40 mg insulin lispro (HUMALOG) injection 0-12 Units 0-12 Units, Subcutaneous, 4 times daily before meals and nightly, First dose on Thu07/27/23 at 1600, Until Discontinued, Blood Glucose: (Less than 70, Notify Provider and Initiate Hypoglycemia Protocol) (150 - 199, administer 2 units) (200 - 249, administer 4 units) (250 - 299, administer 6 units) (300 - 349, administer 8 units) (350 - 400, administer 10 units) (Greater than 400 - Notify Provider) Given 07/31/2023 11:52 AM CARDIAC CATH TECH 2 Units Righ t Arm Given 07/31/2023 6:28 AM CARDIAC CATH TECH 2 Units Ri ght Arm Given 07/30/2023 8:49 PM CARDIAC CATH TECH 6 Units Le ft Lower Abdomen iopamidol (ISOVUE-370) 76 % injection 100 mL 100 mL, Intravenous, IMG once as needed, Contrast, 1 dose, Starting on Thu07/27/23 at 0854, Until Thu07/27/23 at 0854 Given 07/27/2023 8:54 AM CARDIAC CATH TECH 100 mLs lisinopril (PRINIVIL) tablet 40 mg 40 mg, Oral, Daily, First dose on Thu07/28/23 at 0900, Until Discontinued Given 07/31/2023 8:11 AM CARDIAC CATH TECH 40 mg Given 07/30/2023 9:11 AM CARDIAC CATH TECH 40 mg Given 07/29/2023 9:44 AM CARDIAC CATH TECH 40 mg magnesium oxide (MAG-OX) tablet 400 mg 400 mg, Oral, Daily, First dose on Thu07/27/23 at 1330, Until Discontinued Given 07/27/2023 4:47 PM CARDIAC CATH TECH 400 mg magnesium oxide (MAG-OX) tablet 400 mg 400 mg, Oral, 2 times daily, First dose (after last modification) on Thu07/28/23 at 0915, Until Discontinued Given 07/31/2023 8:11 AM CARDIAC CATH TECH 400 mg Given 07/30/2023 8:49 PM CARDIAC CATH TECH 400 mg Given 07/30/2023 9:11 AM CARDIAC CATH TECH 400 mg magnesium sulfate IVPB 2 g 2 g, Intravenous, at 25 mL/hr, Once, 1 dose, On Thu07/28/23 at 0915 New Bag 07/28/2023 9:31 AM CARDIAC CATH TECH 2 g 2 5 mL/hr ondansetron (ZOFRAN) injection 4 mg 4 mg, Intravenous, Every 8 hours PRN, Nausea, Vomiting, Starting on Thu07/27/23 at 1159, Until Thu07/31/23 at 1531, IV push over 2-5 minutes. perflutren lipid microsphere (DEFINITY) injection 2 mL 2 mL, Intravenous, IMG once as needed, Contrast, 1 dose, Starting on Thu07/27/23 at 1356, Until Thu07/27/23 at 1458, Administer over 30-60 seconds. Follow with 10 mL saline flush. Given 07/27/2023 2:58 PM CARDIAC CATH TECH 2 mLs polyethylene glycol (GLYCOLAX) packet 17 g 17 g, Oral, Daily as needed, Constipation, Starting on Thu07/27/23 at 1159, Until Thu07/31/23 at 1531, If both senna and polyethylene glycol are ordered, use 1st; if no response by next dosing interval, go to next option. potassium chloride CR (KLOR-CON M) tablet 20 mEq 20 mEq, Oral, Every 12 hours scheduled (2 times per day), First dose on Thu07/27/23 at 2100, Until Discontinued, Do not chew, crush, or suck on tablet. May break in half. May dissolve whole tablet in 120 mL of water and drink immediately. Given 07/27/2023 9:11 PM CARDIAC CATH TECH 20 mEq potassium chloride CR (KLOR-CON M) tablet 40 mEq 40 mEq, Oral, Every 12 hours scheduled (2 times per day), First dose (after last modification) on Thu07/28/23 at 0915, Until Discontinued, Do not chew, crush, or suck on tablet. May break in half. May dissolve whole tablet in 120 mL of water and drink immediately. Given 07/29/2023 9:44 AM CARDIAC CATH TECH 40 mEq Given 07/28/2023 8:19 PM CARDIAC CATH TECH 40 mEq Given 07/28/2023 9:29 AM CARDIAC CATH TECH 40 mEq potassium chloride CR (KLOR-CON M) tablet 40 mEq 40 mEq, Oral, Daily, First dose (after last modification) on Thu07/30/23 at 0900, Until Discontinued, Do not chew, crush, or suck on tablet. May break in half. May dissolve whole tablet in 120 mL of water and drink immediately. Given 07/31/2023 8:11 AM CARDIAC CATH TECH 40 mEq Given 07/30/2023 9:11 AM CARDIAC CATH TECH 40 mEq documented in this encounter Active and Recently Administered Medications Times are shown in CARDIAC CATH TECH. Scheduled Medication Order 07/29/2023 07/30/2023 07/31/2023 apixaban (ELIQUIS) tablet 5 mg 5 mg, Oral, 2 times daily, Indications: Atrial Fibrillation, First dose on Thu07/27/23 at 2100, Until Discontinued 09 (Given - Provider: Franci Canchola, Nurse Student)2020 (Given - Provider: Shari Retana RN) 910 (Given - Provider: Fabian Campa RN)2047 (Given - Provider: Shari Retana RN) 810 (Given - Provider: Desmond Villeda, Nurse Student) atorvastatin (LIPITOR) tablet 80 mg 80 mg, Oral, Nightly at bedtime, First dose on Thu07/27/23 at 2100, Until Discontinued 2020 (Given - Provider: Shari Retana RN) 2048 (Given - Provider: Shari Retana, JACOB) carvedilol (COREG) tablet 6.25 mg 6.25 mg, Oral, 2 times daily, First dose (after last modification) on Thu07/27/23 at 2100, Until Discontinued, Take with meal or snack 943 (Given - Provider: Franci Canchola, Nurse Student)2022 (Given - Provider: Shari Retana RN - Comment: HR 61) 910 (Given - Provider: Fabian Campa RN)2047 (Given - Provider: Shari Retana RN) 810 (Given - Provider: Desmond Villeda, Nurse Student) furosemide (LASIX) injection 40 mg (CANCELED) 40 mg, Intravenous, 2 times daily, First dose on Thu07/27/23 at 1700, Until Discontinued, Administer IV push 20-40mg/min. 943 (Given - Provider: Franci Cacnhola, Nurse Student)161 (Given - Provider: Latoya Gill, JACOB) furosemide (LASIX) tablet 40 mg 40 mg, Oral, Daily, First dose (after last modification) on Thu07/30/23 at 0900, Until Discontinued 910 (Given - Provider: Fabian Campa, RN) 810 (Given - Provider: Desmond Villeda Nurse Student) insulin lispro (HUMALOG) injection 0-12 Units 0-12 Units, Subcutaneous, 4 times daily before meals and nightly, First dose on Thu07/27/23 at 1600, Until Discontinued, Blood Glucose: (Less than 70, Notify Provider and Initiate Hypoglycemia Protocol) (150 - 199, administer 2 units) (200 - 249, administer 4 units) (250 - 299, administer 6 units) (300 - 349, administer 8 units) (350 - 400, administer 10 units) (Greater than 400 - Notify Provider) 0522 (Not Given - Provider: Lilly Ch RN - Reason: Contraindicated)1140 (Given - Provider: Nurse Ingrid Schaefer)1655 (Given - Provider: Latoya Gill, JACOB)202 (Given - Provider: Shari Retana, JACOB) 06 (Not Given - Provider: Shari Retana RN - Reason: Order parameters not met)1151 (Given - Provider: Fabian Campa, JACOB)1716 (Given - Provider: Char Almaguer, JACOB)204 (Given - Provider: Shari Retana, JACOB) 0628 (Given - Provider: Shari Retana RN)1152 (Given - Provider: Nurse Ingrid Roberts) lisinopril (PRINIVIL) tablet 40 mg 40 mg, Oral, Daily, First dose on Thu07/28/23 at 0900, Until Discontinued 943 (Given - Provider: Nurse Ingrid Schaefer) 910 (Given - Provider: Fabian Campa, JACOB) 08 (Given - Provider: Desmond Villeda Nurse Student) magnesium oxide (MAG-OX) tablet 400 mg 400 mg, Oral, 2 times daily, First dose (after last modification) on Thu07/28/23 at 0915, Until Discontinued 943 (Given - Provider: Franci Canchola, Nurse Student)2020 (Given - Provider: Shari Retana, RN) 910 (Given - Provider: Fabian Campa RN)2048 (Given - Provider: Shari Retana, JACOB) 810 (Given - Provider: Desmond Villeda, Nurse Student) potassium chloride CR (KLOR-CON M) tablet 40 mEq (CANCELED) 40 mEq, Oral, Every 12 hours scheduled (2 times per day), First dose (after last modification) on Thu07/28/23 at 0915, Until Discontinued, Do not chew, crush, or suck on tablet. May break in half. May dissolve whole tablet in 120 mL of water and drink immediately. 943 (Given - Provider: Franci Canchola, Nurse Student) potassium chloride CR (KLOR-CON M) tablet 40 mEq 40 mEq, Oral, Daily, First dose (after last modification) on Thu07/30/23 at 0900, Until Discontinued, Do not chew, crush, or suck on tablet. May break in half. May dissolve whole tablet in 120 mL of water and drink immediately. 910 (Given - Provider: Fabian Campa RN) 810 (Given - Provider: Desmond Villeda, Nurse Student) PRN Medication Order 07/29/2023 07/30/2023 07/31/2023 acetaminophen (TYLENOL) tablet 650 mg 650 mg, Oral, Every 4 hours PRN, Mild pain (Scale 1 - 3), Starting on Thu07/27/23 at 1159, Until Thu07/31/23 at 1531, Maximum dose of acetaminophen is 4000 mg from all sources in 24 hours. 1802 (Given - Provider: Char Almaguer, JACOB) ondansetron (ZOFRAN) injection 4 mg 4 mg, Intravenous, Every 8 hours PRN, Nausea, Vomiting, Starting on Thu07/27/23 at 1159, Until Thu07/31/23 at 1531, IV push over 2-5 minutes. polyethylene glycol (GLYCOLAX) packet 17 g 17 g, Oral, Daily as needed, Constipation, Starting on Thu07/27/23 at 1159, Until Thu07/31/23 at 1531, If both senna and polyethylene glycol are ordered, use 1st; if no response by next dosing interval, go to next option. documented in this encounter Additional Health Concerns Infection Onset Date Last Indicated Resolved Time COVID-19 Rule Out 07/27/2023 07/27/2023 07/27/2023 10:47 AM CARDIAC CATH TECH documented as of this encounter Care Teams Clinic Physician Director Relationship Specialty Start Date End Date Abdon Mendoza MD [address] [place] [address] PCP - General FAMILY PRACTICE 12/17/15 Pernell Vance MD [address] [place] [address] Consulting Physician CARDIOVASCULAR DISEASE 07/05/1901/30 Kamilla Oliveira NP [address] [place] [address] Referring Physician Nurse Practitioner Family 10/08/2104/14 Madan Palomo MD [address] [place] [address] EP Strategy Director CLINICAL CARDIAC ELECTROPHYSIOLOGY 10/08/21 documented as of this encounter
--- OUTSIDE RECORDS SUMMARY | 2024-06-08 06:09 | XMS_ITS | Encounter Summary ---
Author Organization [facility] Address [facility] [place] [address] [place] [address] Care Team Providers Care Can Closing Machine Tender Name Role Phone Abdon Villela MD Primary Care Provider [phone] Pernell Vance MD Unavailable UnavailKamilla Lazaro NP Unavailable Unavailable Madan Palomo MD Unavailable [phone] Encounter Details Date Type Department Care Team (Latest Contact Info) Description 05/14/2023 Travel Social History Tobacco Use Types Packs/Day [...] place to sleep or slept in a prison (including now)? No 01/17/2023 Sex and Gender [...] Assessment Author Status Yes 01/17/2023 5:13 PM SAVIT Tonya Allison RN Active * Are you blind or do you have serious difficulty seeing, even when wearing glasses? Answer Date of Assessment Author Status No 01/17/2023 5:13 PM SAVIT Tonya Allison RN Active * Do you have serious difficulty walking or climbing stairs? Answer Date of Assessment Author Status Yes 01/17/2023 5:13 PM CDT Tonya Allison RN Active * Do you have difficulty dressing or bathing? Answer Date of Assessment Author Status Yes 01/17/2023 5:13 PM CDT Tonya Allison RN Active * Because of a physical, mental, or emotional condition, do you have difficulty doing errands alone such as visiting a doctor's office or shopping? Answer Date of Assessment Author Status Yes 01/17/2023 5:13 PM CDT Tonya Allison RN Active documented as of this encounter Mental Status * Because of a physical, mental, or emotional condition, do you have serious difficulty concentrating, remembering, or making decisions? Answer Entry Date Author Status Yes 01/17/2023 5:13 PM CDT Tonya Allison RN Active documented in this encounter Plan of Treatment Upcoming Encounters Date Type Department Care Team (Latest Contact Info) Description 06/09/2024 2:20 PM CATTLE ALLEY WORKER Telemedicine [facility] Multispecialty [facility] [address] [place] [address] Earnest Drake MD [address] [place] [address] 06/21/2024 1:30 AM CATTLE ALLEY WORKER Allied Health/Nurse Visit [facility] [address] [place] [address] Madan Palomo MD [address] [place] [address] 03/01/2025 11:00 AM CDT Allied Health/Nurse Visit [facility] [place] [address] [place] [address] Norma Rowland PA-C [address] [place] [address] 03/01/2025 11:00 AM CDT Office Visit [facility] [place] [address] Norma Rowland PA-C [address] [place] [address] documented as of this encounter Visit Diagnoses Not on filedocumented in this encounter Care Teams Can Closing Machine Tender Relationship Specialty Start Date End Date Abdon Villela MD [address] [place] [address] PCP - General FAMILY PRACTICE 12/17/15 Pernell Vance MD [address] [place] [address] Consulting Physician CARDIOVASCULAR DISEASE 07/05/1901/30 Kamilla Oliveira NP [address] [place] [address] Referring Physician Nurse Practitioner [facility] 10/08/2104/14 Mad[place] [address] EP Nursing Education Consultant CLINICAL CARDIAC ELECTROPHYSIOLOGY 10/08/21 documented as of this encounter
--- OUTSIDE RECORDS SUMMARY | 2024-06-08 06:09 | XMS_ITS | Encounter Summary ---
Author Organization [facility] Address [facility] [place] [address] [place] [address] Care Team Providers Care Cable Placer Name Role Phone Abdon Villela MD Primary Care Provider [phone] Pernell Vance MD Unavailable UnavailKamilla Lazaro NP Unavailable Unavailable Madan Palomo MD Unavailable [phone] Encounter Details Date Type Department Care Team (Late st Contact Info) Description 11/25/2023 Orders Only [facility] [address] [place] [address] Chris Oliva MD [address] [place] [address] Social History Tobacco Use Types Packs/Day Years Used Date Smoking Tobacco: Former Cigarettes 1 29.6 0 02/14/1966 - 10/07/1995 Pipe Smokeless Tobacco: Never Alcohol Use Standard Drinks/Week Comments No 0 (1 standard drink = 0.6 oz pur e alcohol) [facility] Utilities Answer Date Recorded In the [...] How often do you attend hinduism or shinto serv ices? Never 07/27/2023 Do [...] Not hard at all 07/27/2023 [facility] of Occupat ional Health - Occupational Stress [...] slept in a prison (including now)? No 07/27/2023 Sex and Gender [...] Assessment Author Status No 07/27/2023 10:44 AM TELETYPIST Zamzam Zavala R N Active * Are you blind or do you have serious difficulty seeing, even when wearing glasses? Answer Date of Assessment Author Status No 07/27/2023 10:44 AM TELETYPIST Zamzam Zavala R N Active * Do you have serious difficulty walking or climbing stairs? Answer Date of Assessment Author Status Yes 07/27/2023 10:44 AM TELETYPIST Zamzam Zavala R N Active * Do you have difficulty dressing or bathing? Answer Date of Assessment Author Status Yes 07/27/2023 10:44 AM TELETYPIST Zamzam Zavala R N Active * Because of a physical, mental, or emotional condition, do you have difficulty doing errands alone such as visiting a doctor's office or shopping? Answer Date of Assessment Author Status Yes 07/27/2023 10:44 AM TELETYPIST Zamzam Zavala R N Active documented as of this encounter Mental Status * Because of a physical, mental, or emotional condition, do you have serious difficulty concentrating, remembering, or making decisions? Answer Entry Date Author Status No 07/27/2023 10:44 AM TELETYPIST Zamzam Zavala R N Active documented in this encounter Plan of Treatment Upcoming Encounters Date Type Department Care Team (Latest Contact Info) Description 06/09/2024 2:20 PM TELETYPIST Telemedicine [facility] Medical Group Multispecialty [facility] [address] [place] [address] Earnest Drake MD [address] [place] [address] 06/21/2024 1:30 AM TELETYPIST Allied Health/Nurse Visit [facility] [address] [place] [address] Madan Palomo MD [address] [place] [address] 03/01/2025 11:00 AM CDT Allied Health/Nurse Visit [facility] [place] [address] [place] [address] Norma Rowland PA-C [address] [place] [address] 03/01/2025 11:00 AM CDT Office Visit [facility] [place] [address] Norma Rowland PA-C [address] [place], [place] [address]- documented as of this encounter Results * (ABNORMAL) OCCULT BLOOD, FECES, DIAGNOSTIC (11/25/2023 9:05 AM CDT) OCCULT BLOOD FECAL POSITIVE(A ) NEGATIVE 11/25/2023 10:54 AM CDT [facility] Comment:1+ STOOL SPECIMEN / Unknown 11/25/2023 9:05 AM CDT Crhis Oliva MD BODY FLUIDS AND STOOLS TU CARPIO Final Result [facility] [address] [place] [address], documented in this encounter Visit Diagnoses Diagnosis Weakness- Primary Other malaise and fatigue documented in this encounter Care Teams Cable Placer Relationship Specialty Start Date End Date Abdon Villela MD [address] [place] [phone] PCP - General FAMILY PRACTICE 12/17/15 Pernell Vance MD [address] [place] [address] Consulting Physician CARDIOVASCULAR DISEASE 07/05/1901/30 Kamilla Oliveira, HETAL [address] [place] [address] Referring Physician Nurse Practitioner Family 10/08/2104/14 Madan Palomo MD [address] [place] [address] EP Merchandise Flow Team Member CLINICAL CARDIAC ELECTROPHYSIOLOGY 10/08/21 documented as of this encounter
--- OUTSIDE RECORDS SUMMARY | 2024-06-08 06:09 | XMS_ITS | Encounter Summary ---
Author Organization [facility] Address [facility] [facility] [place] [address] [place] [address] Care Team Providers Care Checker Cashier Name Role Phone Abdon Villela MD Primary Care Provider [phone] Pernell Vance MD Unavailable UnavailKamilla Lazaro NP Unavailable Unavailable Madan Palomo MD Unavailable [phone] Encounter Details Date Type Department Care Team (Latest Contact Info) Description 08/21/2023 Travel Social History Tobacco Use Types Packs/Day Years Used Date Smoking Tobacco: Former Cigarettes 1 29.6 0 02/14/1966 - 10/07/1995 Pipe Smokeless Tobacco: Never Alcohol Use Standard Drinks/Week Comments No 0 (1 standard drink = 0.6 oz pur e alcohol) [facility] Utilities Answer Date Recorded In the past 12 months has [facility], gas, oil, or water [employer] threatened to shut off services in your [...] How often do you attend sikh or sikhism serv ices? Never 07/27/2023 Do you belong [...] heating? Not hard at all 07/27/2023 [facility] - Occupational Stress Questionnaire Answer [...] Assessment Author Status No 07/27/2023 10:44 AM BLISS PRESS OPERATOR Zamzam Zavala R N Active * Are you blind or do you have serious difficulty seeing, even when wearing glasses? Answer Date of Assessment Author Status No 07/27/2023 10:44 AM BLISS PRESS OPERATOR Olga Zavalayl A R N Active * Do you have serious difficulty walking or climbing stairs? Answer Date of Assessment Author Status Yes 07/27/2023 10:44 AM BLISS PRESS OPERATOR Olga Zavalayl A R N Active * Do you have difficulty dressing or bathing? Answer Date of Assessment Author Status Yes 07/27/2023 10:44 AM BLISS PRESS OPERATOR ApkeOlgayl A R N Active * Because of a physical, mental, or emotional condition, do you have difficulty doing errands alone such as visiting a doctor's office or shopping? Answer Date of Assessment Author Status Yes 07/27/2023 10:44 AM BLISS PRESS OPERATOR BillkeZamzam R N Active documented as of this encounter Mental Status * Because of a physical, mental, or emotional condition, do you have serious difficulty concentrating, remembering, or making decisions? Answer Entry Date Author Status No 07/27/2023 10:44 AM BLISS PRESS OPERATOR Zamzam Zavala R N Active documented in this encounter Plan of Treatment Upcoming Encounters Date Type Department Care Team (Latest Contact Info) Description 06/09/2024 2:20 PM BLISS PRESS OPERATOR Telemedicine [facility] Medical [facility] Mult[facility]pecialty [facility] [address] [place] [address] Earnest Drake MD [address] [place], [place] [address] 06/21/2024 1:30 AM BLISS PRESS OPERATOR Allied Health/Nurse Visit [facility] [address] [place] [address] Madan Palomo MD [address] [place], [place] [address] 03/01/2025 11:00 AM CDT Allied Health/Nurse Visit [facility] [place] [address] [place] [address] Norma Rowland PA-C [address] [place], [place] [address] 03/01/2025 11:00 AM CDT Office Visit [facility] [place] [address] [place] [address] Norma Rowland PA-C [address] [place] [address] documented as of this encounter Visit Diagnoses Not on filedocumented in this encounter Care Teams Checker Cashier Relationship Specialty Start Date End Date Abdon Villela MD [address] [place] [phone] PCP - General FAMILY PRACTICE 12/17/15 Pernell Vance MD [address] [place] [address] Consulting Physician CARDIOVASCULAR DISEASE 07/05/1901/30 Kamilla Oliveira NP [address] [facility] [place] [address] Referring Physician Nurse Practitioner Family 10/08/2104/14 Madan Palomo MD [address] [place] [address] EP Solder Cream Maker CLINICAL CARDIAC ELECTROPHYSIOLOGY 10/08/21 documented as of this encounter
--- OUTSIDE RECORDS SUMMARY | 2024-06-08 06:09 | XMS_ITS | Encounter Summary ---
Author Organization [facility] Address [facility] [place] [address] [place] [address] Care Team Providers Care Segment Block Layer Name Role Phone Abdon Villela MD Primary Care Provider [phone] Pernell Vance MD Unavailable UnavailKamilla Lazaro NP Unavailable Unavailable Madan Palomo MD Unavailable [phone] Encounter Details Date Type Department Care Team (Late st Contact Info) Description 10/29/2023 10:30 AM CDT Allied Health/Nurse Visit [facility] [address] [place] [address] Madan Palomo MD [address] [place] [address] Social History Tobacco Use Types Packs/Day Years Used Date Smoking Tobacco: Former Cigarettes 1 29.6 0 02/14/1966 - 10/07/1995 Pipe Smokeless Tobacco: Never Alcohol Use Standard Drinks/Week Comments No 0 (1 standard drink = 0.6 oz pur e alcohol) [facility] Utilities Answer Date Recorded In [...] Never 07/27/2023 How often do you attend pentecostal or zoroastrianism serv ices? Never 07/27/2023 Do you belong to any clubs o r organizations such as pentecostal groups, unions, fraternal or athletic groups, or [...] and heating? Not hard at all 07/27/2023 [facility] [place] of Occupat ional Health - Occupational Stress [...] Assessment Author Status No 07/27/2023 10:44 AM JEWELRY RACKER Zamzam Zavala R N Active * Are you blind or do you have serious difficulty seeing, even when wearing glasses? Answer Date of Assessment Author Status No 07/27/2023 10:44 AM JEWELRY RACKER Zamzam Zavala R N Active * Do you have serious difficulty walking or climbing stairs? Answer Date of Assessment Author Status Yes 07/27/2023 10:44 AM JEWELRY RACKER Zamzam Zavala R N Active * Do you have difficulty dressing or bathing? Answer Date of Assessment Author Status Yes 07/27/2023 10:44 AM JEWELRY RACKER Zamzam Zavala R N Active * Because [...] Progress Notes * Ofelia Dominguez LPN - 10/29/2023 10:30 AM CDT Images from the original note were not included. 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 BATTERY LIFE OR CURRENT VOLTAGE/GITA VOLTAGE 11.2y LEAD IMPEDENCE TRENDS STABLE ATRIAL PACING % VVIR RV PACING % 99 BIV/LV PACING % 11.2 COMMENTS ATRIAL ARRHYTHMIA AF BURDEN OFF % LONGEST EPISODE na ORAL ANTICOAGULATION Eliquis/Apixaban COMMENTS VENTRICULAR ARRHYTHMIA HIGH VENTRICULAR RATES/VT 0 COMMENTS ALERTS / NURSE COMMENTS Normal device function Possible OptiVol fluid accumulation: 22-Jan-2023 -- 06-Aug-2023 PHYSICIAN COMMENTS (IF ANY) Cosigned by Madan Palomo MD at 11/02/2023 5:34 AM CDT documented in this encounter Plan of Treatment Upcoming Encounters Date Type Department Care Team (Latest Contact Info) Description 06/09/2024 2:20 PM JEWELRY RACKER Telemedicine [facility] Medical [facility] Mult[facility]pecialty [facility] [address] [place] [address] Earnest Drake MD [address] [place], [place] [phone] 06/21/2024 1:30 AM JEWELRY RACKER Allied Health/Nurse Visit [facility] [address] [place] [address] Madan Palomo MD [address] [place], [place] [address] 03/01/2025 11:00 AM CDT Allied Health/Nurse Visit [place] [address] [place] [address] Norma Rowland PA-C [address] [place], [place] [address] 03/01/2025 11:00 AM CDT Office Visit [place] [address] [place] [address] Norma Rowland PA-C [address] [place], [place] [address] documented as of this encounter Visit Diagnoses Diagnosis 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
--- OUTSIDE RECORDS SUMMARY | 2024-06-08 06:09 | XMS_ITS | Encounter Summary ---
Author Organization [facility] Address [facility] [place] [address] [place] [address] Care Team Providers Care Die Technician Name Role Phone Abdon Villela MD Primary Care Provider [phone] Pernell Vance MD Unavailable UnavailKamilla Lazaro NP Unavailable Unavailable Madan Palomo MD Unavailable [phone] Encounter Details Date Type Department Care Team (Latest Contact Info) Description 07/27/2023 Travel Social History Tobacco Use Types Packs/Day Years Used Date Smoking Tobacco: Former Cigarettes 1 29.6 0 02/14/1966 - 10/07/1995 Pipe Smokeless Tobacco: Never Alcohol Use Standard Drinks/Week Comments No 0 (1 standard drink = 0.6 oz pur e alcohol) [facility] Utilities Answer Date Recorded In the past 12 months has [facility] [place], gas, oil, or water [employer] [place] threatened to shut off services in your [...] Never 07/27/2023 How often do you attend confucianist or episcopalian serv ices? Never 07/27/2023 Do you belong to any clubs o r organizations such as confucianist groups, unions, fraternal or athletic groups, or [...] and heating? Not hard at all 07/27/2023 [facility] - Occupational Stress Questionnaire Answer Date [...] as of this encounter Functional Status * Question Answer Date of Assessment Author Status Do you have serious difficulty walking or climbing stairs? Yes 07/27/2023 10:44 AM Zamzam King RN Acti ve * Question Answer Date [...] (Latest Contact Info) Description 06/09/2024 2:20 PM STOCK ROOM MANAGER Telemedicine [facility] Medical Group Multispec[facility] [address] [place] [address] Earnest Drake MD [address] [place] [address] 06/21/2024 1:30 AM STOCK ROOM MANAGER [facility] [address] [place] [address] Madan Palomo MD [address] [place] [address] 03/01/2025 11:00 AM CDT Allied Health/Nurse Visit [facility] [place] [address] [place] [address] Norma Rowland PA-C [address] [place] [address] 03/01/2025 11:00 AM CDT Office Visit [facility] [place] [address] [address] Norma Rowland PA-C [address] [place], [place] [address] documented as of this encounter Visit Diagnoses Not on filedocumented in this encounter Additional Health Concerns Infection Onset Date Last Indicated Resolved Time COVID-19 Rule Out 07/27/2023 07/27/2023 07/27/2023 10:47 AM STOCK ROOM MANAGER documented as of this encounter Care Teams Die Technician Relationship Specialty Start Date End Date Abdon Villela MD [address] [place] [phone] PCP - General FAMILY PRACTICE 12/17/15 Pernell Vance MD [address] [place] [address] Consulting Physician CARDIOVASCULAR DISEASE 07/05/1901/30 Kamilla Oliveira, HETAL [address] [place] [address] Referring Physician Nurse Practitioner Family 10/08/2104/14 Madan Palomo MD [address] [place] [address] EP Salt Cutter CLINICAL CARDIAC ELECTROPHYSIOLOGY 10/08/21 documented as of this encounter
--- OUTSIDE RECORDS SUMMARY | 2024-06-08 06:09 | XMS_ITS | Encounter Summary ---
Author Organization [facility] Address [facility] [place] [address] [place] [address] Care Team Providers Care Physician Relations Manager Name Role Phone Abdon Villela MD Primary Care Provider [phone] Pernell Vance MD Unavailable UnavailKamilla Lazaro NP Unavailable Unavailable Madan Palomo MD Unavailable [phone] Reason for Referral * Imaging (Emergency) - Closed Specialty Diagnoses / Procedures Referred By Contac t Referred To Contact RADIOLOGY Procedures CT HEAD WO CON Una Espinoza DO [address] [place] [address] Phone: tel: fax: Referral ID Status Reason Start Date Expiration Date Visits Re quested Visits Authorized [id number] Closed 05/14/2023 05/14/2024 1 1 S BOBBIN WINDER Reason for Visit * Reason Comments Fall Encounter Details Date Type Department Care Team ([facility] st Contact Info) Description 05/14/2023 9:28 PM BRASS BOBBIN WINDER - 05/15/2023 12:45 AM BRASS BOBBIN WINDER Emergency [facility] Emergency Room [address], [place] [address] Una Espinoza DO [address] [place], [place] [address] Fall Discharge Disposition: Home or Self Care (Routine [...] slept in a fdc (including now)? No 01/17/2023 Sex and Gender [...] Sign Reading Time Taken Comments Blood Pressure 135/60 05/14/2023 11:57 PM BRASS BOBBIN WINDER Pulse 73 05/14/2023 9:37 PM BRASS BOBBIN WINDER Temperature 36.6 ??C (97.9 ??F) 05/14/2023 9:37 PM CS T Respiratory Rate 16 05/14/2023 9:37 PM BRASS BOBBIN WINDER Oxygen Saturation 99% 05/14/2023 11:57 PM BRASS BOBBIN WINDER Inhaled Oxygen Concentration - - Weight 97.5 kg (215 lb) 05/14/2023 9:37 PM BRASS BOBBIN WINDER Height 182.9 cm (6') 05/14/2023 9:37 PM BRASS BOBBIN WINDER Body Mass Index 29.16 05/14/2023 9:37 PM BRASS BOBBIN WINDER documented in this encounter Functional Status * Are you deaf or do you have serious difficulty hearing Answer Date of Assessment Author Status Yes 01/17/2023 5:13 PM Tonya Robles RN Active * Are you blind [...] cannot be sent through Care Everywhere. * Getting Up From a Fall (Armenian) documented in this encounter Medications at Time [...] as of this encounter ED Notes * Jacquie Irene RN - 05/15/2023 12:08 AM CST RN called [facility] and let them know that the pt is going to be discharged back to the facility. S BOBBIN WINDER * Una Espinoza DO - 05/14/2023 10:31 PM CST Chief Complaint Chief Complaint Patient presents with Fall History of Present Illness Avila Fernandez 78-year-old Past Medical History: Coronary artery disease, diabetes, hypertension, pacemaker who presents via EMS from [facility] for evaluation of fall. He reports walking with hisrolling walker that caught a floor transition metal strip, stopping the walker suddenly and causinghim to fall backwards.His head hit a wall, No LOC, denies LOZADA, on Eliquis. Denies any complaints except that both of his knees are bad and he has difficulty walking chronically. Medical History ALLERGIES: Review of patient's allergies [...] Date Coronary artery disease Diabetes mellitus (HHS/HCC) ([facility]/HCC) Disorder of prostate Hyperlipidemia Hypertension Pacemaker [...] Review of Systems Review of Systems Constitutional: Negative for activity change, chills, fatigue and fever. HENT: Negative for congestion, dental problem, rhinorrhea, sore throat and trouble swallowing. Eyes: Negative for photophobia, discharge, redness and visual disturbance. Respiratory: Negative for cough, chest tightness, shortness of breath and wheezing. Cardiovascular: Negative for chest pain, palpitations and leg swelling. Gastrointestinal: Negative for abdominal pain, constipation, diarrhea, nausea and vomiting. Endocrine: Negative for polydipsia, polyphagia and polyuria. Genitourinary: Negative for difficulty urinating, dysuria, flank pain, hematuria and urgency. Musculoskeletal: Negative for back pain, myalgias and neck stiffness. Skin: Negative for color change, pallor, rash and wound. Neurological: Negative for dizziness, syncope, speech difficulty, weakness and headaches. Hematological: Negative for adenopathy. Psychiatric/Behavioral: Negative for agitation, confusion, self-injury and suicidal ideas. The patient is not nervous/anxious. All other systems reviewed and are negative. Physical Exam Filed Vitals: 05/14/23 2137 05/14/23 2200 BP: (!) 144/62 125/54 Pulse: 73 Resp: 16 Temp: 97.9 ??F (36.6 ??C) TempSrc: Oral SpO2: 97% 98% Weight: 97.5 kg (215 lb) Height: 1.829 m (6') Physical Exam Vitals and nursing note reviewed. Constitutional: Appearance: He is well-developed. HENT: Head: Normocephalic and atraumatic. Right Ear: External ear normal. Left Ear: External ear normal. Nose: Nose normal. Mouth/Throat: Mouth: Mucous membranes are moist. Pharynx: Oropharynx is clear. Eyes: General: Right eye: No discharge. Left eye: No discharge. Extraocular Movements: Extraocular movements intact. Conjunctiva/sclera: Conjunctivae normal. Pupils: Pupils are equal, round, and reactive to light. Cardiovascular: Rate and Rhythm: Normal rate and regular rhythm. Heart sounds: Normal heart sounds. Pulmonary: Effort: Pulmonary effort is normal. No respiratory distress. Breath sounds: Normal breath sounds. No wheezing or rales. Chest: Chest wall: No tenderness. Abdominal: General: Bowel sounds are normal. There is no distension. Palpations: Abdomen is soft. Tenderness: There is no abdominal tenderness. There is no guarding or rebound. Musculoskeletal: General: No tenderness or deformity. Normal range of motion. Cervical back: Normal range of motion and neck supple. Right lower leg: Edema present. Left lower leg: Edema present. Lymphadenopathy: Cervical: No cervical adenopathy. Skin: General: Skin is warm and dry. Capillary Refill: Capillary refill takes less than 2 seconds. Findings: No erythema or rash. Neurological: General: No focal deficit present. Mental Status: He is alert. Mental status is at baseline. Cranial Nerves: No cranial nerve deficit. Psychiatric: Behavior: Behavior normal. Judgment: Judgment normal. Diagnostic Studies / Procedures ELECTROCARDIOGRAMS: No results found for this visit on 05/14/23. LABORATORY STUDIES: No results found for this visit on 05/14/23. IMAGING STUDIES CT HEAD WO CON Final Result by User, [id number] (05/14 2312) INDICATION: Head trauma. Fall. COMPARISON: January 17, 2023. TECHNIQUE: Axial images were obtained through the head without intravenous contrast administration. DOSE OPTIMIZATION: This facility uses dose optimization techniques as appropriate to perform exams, including at least one of the following techniques: 1. Automated exposure control. 2. Adjustment of the mA and/or kV according to patient size (this includes techniques or standardized protocols for targeted exams where dose is matched to the indication/reason for exam, i.e. extremities or head). 3. Use of iterative reconstructive technique. FINDINGS: Cerebral Parenchyma: There is normal marks-white matter differentiation bilaterally with no evidence of acute ischemia. There is mild to moderate generalized cerebral atrophy and chronic small vessel ischemic change. There are no masses. Ventricles: Normal and symmetric with no mass effect or midline shift. Hemorrhage: None. Sinus and Mastoids: The visualized paranasal sinuses are well aerated. The mastoid air cells are well aerated. Bones: The calvarium is normal and intact. Soft Tissues: The visualized soft tissues appear unremarkable. IMPRESSION: 1. No acute process. 2. Mild to moderate generalized cerebral atrophy and chronic small vessel ischemic change. Referred By: Interpreted By: Ney Hurtado MD, 05/14/2023 11:09 PM ED Course / Medical Decision Making Medical Decision Making Patient ambulated with walker in room. He states he walked as he usually does. CT scan head orderedto rule out intracranial abnormality as patient is on Eliquis and bumped his head. CT head shows: nothing acute Patient states it would suit him best to go home and he is comfortable returning back to [facility].All questions answered, return precautions given. Clinical Impression Fall (Primary) Moderate injury of head Disposition: Discharge Una Espinoza DO 05/14/23 5171 S BOBBIN WINDER * Pam Benz RN - 05/14/2023 9:35 PM CST Patient presents to the ED via EMS r/t fall. Patient is a patient at [facility] and voiced he was walking with his walker when he tripped over the edge of a carpet. Patient voiced he hit his head on the wall. He voiced no c/o pain at this time. Patient head intact. Patient voiced he did nothave a LOC. S BOBBIN WINDER documented in this encounter Plan of Treatment Upcoming Encounters Date Type Department Care Team (Latest Contact Info) Description 06/09/2024 2:20 PM BRASS BOBBIN WINDER Telemedicine [facility] [address] [place] [address] Earnest Drake MD [address] [place] [address] 06/21/2024 1:30 AM BRASS BOBBIN WINDER Allied Health/Nurse Visit [facility] [address] [place] [address] Madan Palomo MD [address] [place] [address] 03/01/2025 11:00 AM CDT Allied Health/Nurse Visit [address] [place] [address] Norma Rowland PA-C [address] [place] [address] 03/01/2025 11:00 AM CDT Office Visit [place] [address] [place] [address] Norma Rowland PA-C [address] [place] [address] documented as of this encounter Procedures Procedure Name Priority Date/Time Associated Diagnosis Comments CT HEAD WO CON STAT 05/14/2023 11:05 PM BRASS BOBBIN WINDER documented in this encounter Results * CT HEAD WO CON (05/14/2023 11:05 PM BRASS BOBBIN WINDER) Anatomical Region Laterality Modality Head Computed Tomogra phy 05/14/2023 11:0 9 PM BRASS BOBBIN WINDER Impressions 05/14/2023 11:11 PM BRASS BOBBIN WINDER IMPRESSION: 1. ??No acute process. 2. ??Mild to moderate generalized cerebral atrophy and chronic small vessel ischemic change. Referred By: ?? Interpreted By: Ney Hurtado MD, 05/14/2023 11:09 PM Narrative 05/14/2023 11:11 PM BRASS BOBBIN WINDER INDICATION: Head trauma. ??Fall. COMPARISON: January 17, 2023. TECHNIQUE: Axial images were obtained through the head without intravenous contrast administration. DOSE OPTIMIZATION: This facility uses dose optimization techniques as appropriate to perform exams, including at least one of the following techniques: 1. Automated exposure control. 2. Adjustment of the mA and/or kV according to patient size (this includes techniques or standardized protocols for targeted exams where dose is matched to the indication/reason for exam, i.e. extremities or head). 3. Use of iterative reconstructive technique. FINDINGS: Cerebral Parenchyma: There is normal marks-white matter differentiation bilaterally with no evidence of acute ischemia. There is mild to moderate generalized cerebral atrophy and chronic small vessel ischemic change. There are no masses. Ventricles: Normal and symmetric with no mass effect or midline shift. Hemorrhage: None. Sinus and Mastoids: The visualized paranasal sinuses are well aerated. The mastoid air cells are well aerated. Bones: The calvarium is normal and intact. Soft Tissues: The visualized soft tissues appear unremarkable. Procedure Note Ney Hurtado MD - 05/14/2023 INDICATION: Head trauma. Fall. COMPARISON: January 17, 2023. TECHNIQUE: Axial images were obtained through the head without intravenouscontrast administration. DOSE OPTIMIZATION: This facility uses dose optimization techniques asappropriate to perform exams, including at least one of the followingtechniques: 1. Automated exposure control. 2. Adjustment of the mA and/or kV according to patient size (this includestechniques or standardized protocols for targeted exams where dose ismatched to the indication/reason for exam, i.e. extremities or head). 3. Use of iterative reconstructive technique. FINDINGS: Cerebral Parenchyma: There is normal marks-white matter differentiation bilaterally with noevidence of acute ischemia. There is mild to moderate generalized cerebral atrophy and chronic smallvessel ischemic change. There are no masses. Ventricles: Normal and symmetric with no mass effect or midline shift. Hemorrhage: None. Sinus and Mastoids: The visualized paranasal sinuses are well aerated. The mastoid air cells are well aerated. Bones: The calvarium is normal and intact. Soft Tissues: The visualized soft tissues appear unremarkable. IMPRESSION: 1. No acute process. 2. Mild to moderate generalized cerebral atrophy and chronic small vesselischemic change. Referred By: Interpreted By: Ney Hurtado MD, 05/14/2023 11:09 PM us Una Espinoza DO CT Final Result documented in this encounter Visit Diagnoses Diagnosis Fall- Primary Unspecified fall Moderate injury of head Head injury, unspecified documented in this encounter Care Teams Physician Relations Manager Relationship Specialty Start Date End Date Abdon Villela MD [address] [place] [address] PCP - General FAMILY PRACTICE 12/17/15 Pernell Vance MD [address] [place] [address] Consulting Physician CARDIOVASCULAR DISEASE 07/05/1901/30 Kamilla Oliveira NP [address] [place] [address] Referring Physician Nurse Practitioner [facility] 10/08/2104/14 Madan Palomo MD [address] [place] [address] EP Inspector Returned Materials CLINICAL CARDIAC ELECTROPHYSIOLOGY 10/08/21 documented as of this encounter
--- OUTSIDE RECORDS SUMMARY | 2024-06-08 06:09 | XMS_ITS | Encounter Summary ---
Author Organization [facility] Address [facility] [place] [address] [place] [address] Care Team Providers Care Microeconomics Professor Name Role Phone Abdon Villela MD Primary Care Provider Pernell Vance MD Unavailable UnavailKamilla Lazaro NP Unavailable Unavailable Madan Palomo MD Unavailable [phone] Encounter Details Date Type Department Care Team (Latest Contact Info) Description 08/01/2023 Travel Social History Tobacco Use Types Packs/Day Years Used Date Smoking Tobacco: Former Cigarettes 1 29.6 0 02/14/1966 - 10/07/1995 Pipe Smokeless Tobacco: Never Alcohol Use Standard Drinks/Week Comments No 0 (1 standard drink = 0.6 oz pur e alcohol) [facility] Utilities Answer Date Recorded In the past 12 months has [facility] [employer], gas, oil, or water [employer] threatened to shut off services in your [...] Never 07/27/2023 How often do you attend anabaptist or druze serv ices? Never 07/27/2023 Do you belong to any clubs o r organizations such as anabaptist groups, unions, fraternal or athletic groups, or [...] and heating? Not hard at all 07/27/2023 [facility] Occupational Stress Questionnaire Answer Date [...] Assessment Author Status No 07/27/2023 10:44 AM PLASTIC FABRICATOR Zamzam Zavala R N Active * Are you blind or do you have serious difficulty seeing, even when wearing glasses? Answer Date of Assessment Author Status No 07/27/2023 10:44 AM PLASTIC FABRICATOR Olga Zavalayl A R N Active * Do you have serious difficulty walking or climbing stairs? Answer Date of Assessment Author Status Yes 07/27/2023 10:44 AM PLASTIC FABRICATOR Olga Zavalayl A R N Active * Do you have difficulty dressing or bathing? Answer Date of Assessment Author Status Yes 07/27/2023 10:44 AM PLASTIC FABRICATOR ApkeOlgayl A R N Active * Because of a physical, mental, or emotional condition, do you have difficulty doing errands alone such as visiting a doctor's office or shopping? Answer Date of Assessment Author Status Yes 07/27/2023 10:44 AM PLASTIC FABRICATOR BillkeZamzam R N Active documented as of this encounter Mental Status * Because of a physical, mental, or emotional condition, do you have serious difficulty concentrating, remembering, or making decisions? Answer Entry Date Author Status No 07/27/2023 10:44 AM PLASTIC FABRICATOR Zamzam Zavala R N Active documented in this encounter Plan of Treatment Upcoming Encounters Date Type Department Care Team (Latest Contact Info) Description 06/09/2024 2:20 PM PLASTIC FABRICATOR Telemedicine [facility] [address] [place] [address] Earnest Drake MD [address] [place], [place] [id number] 06/21/2024 1:30 AM PLASTIC FABRICATOR Allied Health/Nurse Visit [facility] [address] [place] [address] Madan Palomo MD [address] [place], [place] [address] 03/01/2025 11:00 AM CDT Allied Health/Nurse Visit [facility] [place] [address] [place] [address] Norma Rowland PA-C [address] [place], [place] [address] 03/01/2025 11:00 AM CDT Office Visit [facility] [place] [address] [place] [address] Norma Rowland PA-C [address] [place] [address] documented as of this encounter Visit Diagnoses Not on filedocumented in this encounter Care Teams Microeconomics Professor Relationship Specialty Start Date End Date Abdon Villela MD [address] [place] [phone] PCP - General FAMILY PRACTICE 12/17/15 Pernell Vance MD [address] [place] [address] Consulting Physician CARDIOVASCULAR DISEASE 07/05/1901/30 Kamilla Oliveira NP [address] [facility] [place] [address] Referring Physician Nurse Practitioner Family 10/08/2104/14 Madan Palomo MD [address] [place] [address] EP [employer]fuels Technology Development Manager CLINICAL CARDIAC ELECTROPHYSIOLOGY 10/08/21 documented as of this encounter
--- OUTSIDE RECORDS SUMMARY | 2024-06-08 06:09 | XMS_ITS | Encounter Summary ---
Author Organization [facility] Address Counts include 234 beds at the [facility]6 [facility] [place] [address] [place] [address] Care Team Providers Care Syrup Blender Name Role Phone Abdon Villela MD Primary Care Provider [phone] Pernell Vance MD Unavailable UnavailKamilla Lazaro NP Unavailable Unavailable Madan Palomo MD Unavailable [phone] Reason for Visit * Reason Onset Date Comments Information 10/29/2023 Question 10/29/2023 Encounter Details Date Type Department Care Team (Late st Contact Info) Description 10/29/2023 [facility]phone [facility] [address] [place] [address] Madan Palomo MD [address] [place] [address] Information; Question Social History Tobacco Use Types Packs/Day Years Used Date Smoking Tobacco: Former Cigarettes 1 29.6 0 02/14/1966 - 10/07/1995 Pipe Smokeless Tobacco: Never Alcohol Use Standard Drinks/Week Comments No 0 (1 standard drink = 0.6 oz pur e alcohol) [facility] Utilities Answer Date Recorded In the [...] Never 07/27/2023 How often do you attend synagogue or muslim serv ices? Never 07/27/2023 Do you belong to any clubs o r organizations such as synagogue groups, unions, fraternal or athletic groups, or [...] at all 07/27/2023 [facility] [place] of Occupat ional Health - Occupational Stress [...] Assessment Author Status No 07/27/2023 10:44 AM ORTHOTIC/PROSTHETIC PRACTITIONER Zamzam Zavala R N Active * Are you blind or do you have serious difficulty seeing, even when wearing glasses? Answer Date of Assessment Author Status No 07/27/2023 10:44 AM ORTHOTIC/PROSTHETIC PRACTITIONER Olga Zavalayl Hayley R N Active * Do you have serious difficulty walking or climbing stairs? Answer Date of Assessment Author Status Yes 07/27/2023 10:44 AM ORTHOTIC/PROSTHETIC PRACTITIONER Zamzam Zavala R N Active * Do you have difficulty dressing or bathing? Answer Date of Assessment Author Status Yes 07/27/2023 10:44 AM ORTHOTIC/PROSTHETIC PRACTITIONER Zamzam Zavala A R N Active * [...] encounter Progress Notes * Hilary Calix - 10/29/2023 10:48 AM CDT A remote transmission was received today 10/29/2023 for the initial setup of the monitor. Called Jennifer RN at [facility] to let her know we received the remote transmission from the patient for the initial setup of the monitor. Patient is residing at [facility], [address] [place] [address], [address][phone], * Hilary Calix - 10/29/2023 10:36 AM CDT Called [facility] and spoke to Jennifer RN taking care of the patient. I gave Jennifer RN instructions on how to send in a remote transmission from the patients monitor. Jennifer states she will have the patient send now. * Arias Case RN - 10/29/2023 9:46 AM CDT Hilary, [facility]. [phone]. Please speak with nurse to try and get new monitor (delivered by Arsalan yesterday) to work. If no success, give the nurse [employer] stay connected to call to troubleshoot why monitor not sending. PLease also update address and fax number to use to send future appt letters. Scheduled next remote out 1 month from now. documented in this encounter Plan of Treatment Upcoming Encounters Date Type Department Care Team (Latest Contact Info) Description 06/09/2024 2:20 PM ORTHOTIC/PROSTHETIC PRACTITIONER Telemedicine [facility] [address] [place] [address] Earnest Drake MD [address] [place], [place] [phone] 06/21/2024 1:30 AM ORTHOTIC/PROSTHETIC PRACTITIONER Allied Health/Nurse Visit [facility] [address] [place] [address] Madan Palomo MD [address] [place], [place] [address] 03/01/2025 11:00 AM CDT Allied Health/Nurse Visit [facility] [place] [address] [place] [address] Norma Rowland PA-C [address] [place] [address] 03/01/2025 11:00 AM CDT Office Visit [facility] [place] [address] [place] [address] Norma Rowland PA-C [address] [place], [place] [address] documented as of this encounter Visit Diagnoses Not on filedocumented in this encounter Care Teams Syrup Blender Relationship Specialty Start Date End Date Abdon Villela MD [address] [place] [address] PCP - General FAMILY PRACTICE 12/17/15 Pernell Vance MD [address] [place] [address] Consulting Physician CARDIOVASCULAR DISEASE 07/05/1901/30 Kamilla Oliveira NP [address] [place] [address] Referring Physician Nurse Practitioner Family 10/08/2104/14 Madan Palomo MD [address] [place], [place] [address] EP Lead Presser CLINICAL CARDIAC ELECTROPHYSIOLOGY 10/08/21 documented as of this encounter
--- OUTSIDE RECORDS SUMMARY | 2024-06-08 06:09 | XMS_ITS | Encounter Summary ---
Author Organization [facility] Address [address] [place] [address]. [place] [address] [place] [address] Care Team Providers Care Cascara Bark Cutter Name Role Phone Abdon Villela MD Primary Care Provider [phone] Pernell Vance MD Unavailable UnavailKamilla Lazaro NP Unavailable Unavailable Madan Palomo MD Unavailable [phone] Encounter Details Date Type Department Care Team (Late st Contact Info) Description 11/25/2023 10:20 AM CDT - 11/25/2023 11:59 PM T Hospital Encounter [facility] [address] [place] [address] Chris Oliva MD [address] [place] [address] Discharge Disposition: Home or Self Care (Routine Discharge) Social History Tobacco Use Types Packs/Day Years Used Date Smoking Tobacco: Former Cigarettes 1 29.6 0 02/14/1966 - 10/07/1995 Pipe Smokeless Tobacco: Never Alcohol Use Standard Drinks/Week Comments No 0 (1 standard drink = 0.6 oz pur e alcohol) [facility] Utilities Answer Date Recorded In [...] Never 07/27/2023 How often do you attend yarsani or cheondoism serv ices? Never 07/27/2023 Do you belong to any clubs o r organizations such as yarsani groups, unions, fraternal or athletic groups, or [...] and heating? Not hard at all 07/27/2023 [facility] [place] of Occupat ional Health - Occupational Stress [...] Assessment Author Status No 07/27/2023 10:44 AM SHUTDOWN COORDINATOR Olga Zavalayl A, R N Active * Do you have serious difficulty walking or climbing stairs? Answer Date of Assessment Author Status Yes 07/27/2023 10:44 AM SHUTDOWN COORDINATOR Olga Zavalayl A R N Active * Do you have difficulty dressing or bathing? Answer Date of Assessment Author Status Yes 07/27/2023 10:44 AM SHUTDOWN COORDINATOR Zamzam Zavala A, R N Active * [...] (Latest Contact Info) Description 06/09/2024 2:20 PM SHUTDOWN COORDINATOR Telemedicine [facility] [address] [place] [address] Earnest Drake MD [address] [place] [address] 06/21/2024 1:30 AM SHUTDOWN COORDINATOR Allied Health/Nurse Visit [facility] [address] [place] [address] Madan Palomo MD [address] [place], [place] [address] 03/01/2025 11:00 AM CDT Allied Health/Nurse Visit [place] [address] [place] [address] Norma Rowland PA-C [address] [place], [place] [address] 03/01/2025 11:00 AM CDT Office Visit [place] [address] [address] Norma Rowland PA-C [address] [place], [place] [address] documented as of this encounter Procedures Procedure Name Priority Date/Time Associated Diagnosis Comments OCCULT BLOOD, FECES Routine 11/25/2023 9 :05 AM CDT Weakness documented in this encounter Results * (ABNORMAL) OCCULT BLOOD, FECES, DIAGNOSTIC (11/25/2023 9:05 AM CDT) OCCULT BLOOD FECAL POSITIVE(A ) NEGATIVE 11/25/2023 10:54 AM CDT [facility] Comment:1+ STOOL SPECIMEN / Unknown 11/25/2023 9:05 AM CDT Chris Oliva MD BODY FLUIDS AND STOOLS TU CARPIO Final Result [facility] [address] [place] [address], documented in this encounter Visit Diagnoses Diagnosis Weakness Other malaise and fatigue documented in this encounter Care Teams Cascara Bark Cutter Relationship Specialty Start Date End Date Abdon Villela MD [address] [place] [address] PCP - General FAMILY PRACTICE 12/17/15 Pernell Vance MD [address] [place] [address] Consulting Physician CARDIOVASCULAR DISEASE 07/05/1901/30 Kamilla Oliveira NP [facility] [place] [address] Referring Physician Nurse Practitioner Family 10/08/2104/14 Madan Palomo MD [address] [place] [address] EP Care Transition Manager CLINICAL CARDIAC ELECTROPHYSIOLOGY 10/08/21 documented as of this encounter
--- OUTSIDE RECORDS SUMMARY | 2024-06-08 06:09 | XMS_ITS | Encounter Summary ---
Author Organization [facility] Address [facility] [facility] [place] [address] [place] [address] Care Team Providers Care Gas Appliance Adjuster Name Role Phone Abdon Villela MD Primary Care Provider [phone] Pernell Vance MD Unavailable UnavailKamilla Lazaro NP Unavailable Unavailable Madan Palomo MD Unavailable [phone] Reason for Visit * Reason Comments Confusion Encounter Details Date Type Department Care Team (Late st Contact Info) Description 08/21/2023 3:19 PM HOUSING PROPERTY MANAGER - 08/21/2023 5:25 PM [facility] Emergency [facility] [address] [facility] [place] [address] Mariam Brown MD [address] [place] [address] Confusion Discharge Disposition: Distribution Center Manager Care Social History Tobacco Use Types Packs/Day Years [...] Never 07/27/2023 How often do you attend catholic or advent serv ices? Never 07/27/2023 Do you belong to any clubs o r organizations such as catholic groups, unions, fraternal or athletic groups, [...] and heating? Not hard at all 07/27/2023 [facility] [place] of Occupat ional Health - Occupational Stress [...] in a detention (including now)? No 07/27/2023 Sex and Gender [...] Sign Reading Time Taken Comments Blood Pressure 150/85 08/21/2023 3:22 PM HOUSING PROPERTY MANAGER Pulse 64 08/21/2023 3:22 PM HOUSING PROPERTY MANAGER Temperature 36.3 ??C (97.4 ??F) 08/21/2023 3:22 PM CS T Respiratory Rate 16 08/21/2023 3:22 PM HOUSING PROPERTY MANAGER Oxygen Saturation 97% 08/21/2023 3:22 PM HOUSING PROPERTY MANAGER Inhaled Oxygen Concentration - - Weight 101.2 kg (223 lb) 08/21/2023 3:22 PM HOUSING PROPERTY MANAGER Height 182.9 cm (6') 08/21/2023 3:22 PM HOUSING PROPERTY MANAGER Body Mass Index 30.24 08/21/2023 3:22 PM HOUSING PROPERTY MANAGER documented in this encounter Functional Status * Are you deaf or do you have serious difficulty hearing Answer Date of Assessment Author Status No 07/27/2023 10:44 AM HOUSING PROPERTY MANAGER Apke, Zamzam A, R N Active * Are you [...] encounter Discharge Instructions * Discharge Instructions* Mariam Brown MD - 08/21/2023 4:34 PM HOUSING PROPERTY MANAGER Behavioral problem with possible dementia Continue medications as previously prescribed Follow-up with Dr. Oliva Return to the emergency room for worsening cough, fever, confusion, agitation or other concerns. ING PROPERTY MANAGER documented in this encounter Medications at Time [...] of this encounter ED Notes * Mariam Brown MD - 08/21/2023 4:28 PM CST Chief Complaint Chief Complaint Patient presents with Confusion History of Present Illness Patient is a 78-year-old male who [facility]. Patient has a documented past medical history of hyperlipidemia, AV block, cardiomegaly, heart failure, acute respiratory failure, pulmonary edema, hypertension, pulmonary hypertension, sick sinus syndrome status post pacemaker, type 2 diabetes and coronary artery diseasealong with atrial fibrillation. Patient is on Eliquis. No reports of fall or trauma. Patient reportedly does not want to stay at the [facility]. Patient has no medications ordered for sedation or agitation. Patient had no report of aggressive behavior. Patient here states its another day I have e xisted . Patient denies any complaints at this time. In reviewing medical records, patient was herefor similar and had a medical evaluation on August 01. Patient was previously admitted prior to that the beginning of July at effing him for CHF. Patient denies any shortness of breath or increased leg swelling. No reports that patient is not taking his medications. Medical History ALLERGIES: Review [...] mouth 2 (two) times daily. 09/19/22 Madan Palmoo MD atorvastatin (LIPITOR) 80 MG tablet Take [...] Date Coronary artery disease Diabetes mellitus (HHS/HCC) ([facility]/HCC) Disorder of prostate Hyperlipidemia Hypertension Pacemaker 09/10/2022 [...] of Systems Review of Systems Constitutional: Negative. Negative for chills and fever. HENT: Negative. Eyes: Negative. Respiratory: Negative. Negative for chest tightness and shortness of breath. Cardiovascular: Negative. Negative for chest pain, palpitations and leg swelling. Gastrointestinal: Negative. Negative for abdominal pain, nausea and vomiting. Endocrine: Negative. Genitourinary: Negative. Musculoskeletal: Negative. Skin: Negative. Allergic/Immunologic: Negative. Neurological: Negative. Hematological: Negative. Psychiatric/Behavioral: Positive for confusion. Negative for self-injury and suicidal ideas. Reportedly wanting to leave but unsure if there is agitation. Patient has chronic confusion. Physical Exam Filed Vitals: 08/21/23 1522 BP: (!) 150/85 Pulse: 64 Resp: 16 Temp: 97.4 ??F (36.3 ??C) TempSrc: Temporal SpO2: 97% Weight: 101.2 kg (223 lb) Height: 1.829 m (6') Vital signs are stable Physical Exam Vitals and nursing note reviewed. Constitutional: General: He is not in acute distress. Appearance: Normal appearance. He is not ill-appearing. HENT: Head: Normocephalic and atraumatic. Cardiovascular: Rate and Rhythm: Normal rate and regular rhythm. Pulses: Normal pulses. Heart sounds: Normal heart sounds. No murmur heard. Pulmonary: Effort: Pulmonary effort is normal. No respiratory distress. Breath sounds: Normal breath sounds. No wheezing or rales. Chest: Chest wall: No tenderness. Abdominal: General: Bowel sounds are normal. There is no distension. Palpations: Abdomen is soft. There is no mass. Tenderness: There is no abdominal tenderness. There is no guarding or rebound. Musculoskeletal: General: Swelling (trace pedal edema) present. No tenderness. Normal range of motion. Cervical back: Normal range of motion and neck supple. No rigidity or tenderness. Skin: General: Skin is warm and dry. Capillary Refill: Capillary refill takes less than 2 seconds. Neurological: General: No focal deficit present. Mental Status: He is alert and oriented to person, place, and time. Psychiatric: Mood and Affect: Mood normal. Behavior: Behavior normal. Diagnostic Studies / Procedures ELECTROCARDIOGRAMS: No results found for this visit on 08/21/23. LABORATORY STUDIES: No results found for this visit on 08/21/23. IMAGING STUDIES No orders to display ED Course / Medical Decision Making Medical Decision Making ED Course as of 08/21/23 1634 ThuAug 21, 2023 1632 Patient's previous ER visit and hospitalization have been reviewed. Patient's [facility] notes have been reviewed. Discussed the case with Dr. Oliva who is patient's primary care physician. Dr. Oliva agrees that there is nothing here to hold the patient on at this time. He is not agitated. He is not a threat to self or others. Patient is not suicidal or homicidal. Will discharge patient back to the [facility]. Follow-up with Dr. Oliva as an outpatient. [MA] ED Course User Index [MA] Mariam Brown MD Clinical Impression Dementia with behavioral problem (CMS/HCC) (Primary) Disposition: Discharge Mariam Brown MD 08/21/231633 ING PROPERTY MANAGER * Gladys Manuel RN - 08/21/2023 3:14 PM CST Pt arrives via EMS, from [place]. Staff reports that pt was wanting to run away, say that he was been held hostage. EMS Denies being physical or threatening residents or staff. ING PROPERTY MANAGER ING PROPERTY MANAGER ING PROPERTY MANAGER documented in this encounter Plan of Treatment Upcoming Encounters Date Type Department Care Team (Latest Contact Info) Description 06/09/2024 2:20 PM HOUSING PROPERTY MANAGER [facility] [address] [address] Earnest Drake MD [address] [place] [address] 06/21/2024 1:30 AM HOUSING PROPERTY MANAGER Allied Health/Nurse Visit [facility] [address] [place] [address] Madan Palomo MD [address] [place], [place] [address] 03/01/2025 11:00 AM CDT Allied Health/Nurse Visit [facility] [place] [address] [place] [address] Norma Rowland PA-C [address] [place], [place] [address] 03/01/2025 11:00 AM CDT Office Visit [facility] [place] [address] [address] Norma Rowland PA-C [address] [place], [place] [address] documented as of this encounter Visit Diagnoses Diagnosis Dementia with behavioral problem ([facility])- Primary Dementia, unspecified, with behavioral disturbance documented in this encounter Care Teams Gas Appliance Adjuster Relationship Specialty Start Date End Date [place] [address] PCP - General FAMILY PRACTICE 12/17/15 [place] [address] Consulting Physician CARDIOVASCULAR DISEASE 07/05/1901/30 [place] [address] Referring Physician Nurse Practitioner Family 10/08/2104/14 Madan Palomo MD [address] [place] [address] EP Recycling Director CLINICAL CARDIAC ELECTROPHYSIOLOGY 10/08/21 documented as of this encounter
--- OUTSIDE RECORDS SUMMARY | 2024-06-08 06:09 | XMS_ITS | Encounter Summary ---
Author Organization [facility] Address [facility] [place] [address] [place] [address] Care Team Providers Care Vice President Integrated Name Role Phone Abdon Villela MD Primary Care Provider [phone] Pernell Vance MD Unavailable UnavailKamilla Lazaro NP Unavailable Unavailable Madan Palomo MD Unavailable [phone] Encounter Details Date Type Department Care Team (Latest Contact Info) Description 03/20/2023 10:55 AM CDT - 03/20/2023 11:59 PM CDT Hospital Encounter [facility] [address] [place] [address] Bartolome Brown MD [address] [place] [address] Discharge Disposition: Home or Self Care (Routine [...] slept in a intermediate (including now)? No 01/17/2023 Sex and Gender [...] (Latest Contact Info) Description 06/09/2024 2:20 PM BUNDLE SHAKER Telemedicine [facility] Multispecialty [facility] [address] [place] [address] Earnest Drake MD [address] [place], [place] [address] 06/21/2024 1:30 AM BUNDLE SHAKER Allied Health/Nurse Visit [facility] [address] [place] [address] Madan Palomo MD [address] [place] [address] 03/01/2025 11:00 AM CDT Allied Health/Nurse Visit [facility] [place] [address] [place] [address] Norma Rowland PA-C [address] [place] [address] 03/01/2025 11:00 AM CDT Office Visit [facility] [place] [address] [place] [address] Norma Rowland PA-C [address] [place], [place] [address] documented as of this encounter Visit Diagnoses Not on filedocumented in this encounter Care Teams Vice President Integrated Relationship Specialty Start Date End Date Abdon Villela MD [address] [place] [address] PCP - General FAMILY PRACTICE 12/17/15 Pernell Vance MD [address] [place] [address] Consulting Physician CARDIOVASCULAR DISEASE 07/05/1901/30 Kamilla Oliveira NP [address] [place] [address] Referring Physician Nurse Practitioner Family 10/08/2104/14 Madan Palomo MD [address] [place] [address] EP Reimbursement Manager CLINICAL CARDIAC ELECTROPHYSIOLOGY 10/08/21 documented as of this encounter
--- OUTSIDE RECORDS SUMMARY | 2024-06-08 06:09 | XMS_ITS | Encounter Summary ---
Author Organization [facility] Address [facility] [place] [address] [place] [address] Care Team Providers Care Irrigator Name Role Phone Abdon Villela MD Primary Care Provider [phone] Pernell Vance MD Unavailable UnavailKamilla Lazaro NP Unavailable Unavailable Madan Palomo MD Unavailable [phone] Encounter Details Date Type Department Care Team (Latest Contact Info) Description 05/01/2023 1:12 PM LEAKAGE TESTER - 05/01/2023 11:59 PM [facility] Hospital Encounter [facility] [address] [place] [address] Bartolome Brown MD [address] [place] [address] Discharge Disposition: Home or Self Care (Routine [...] [place] [facility] (including now)? No 01/17/2023 Sex and Gender [...] (Latest Contact Info) Description 06/09/2024 2:20 PM LEAKAGE TESTER Telemedicine [facility] Multispec[facility] [address] [place] [address] Earnest Drake MD [address] [place], [place] [address] 06/21/2024 1:30 AM LEAKAGE TESTER Allied Health/Nurse Visit [facility] [address] [place] [address] Madan Palomo MD [address] [place] [address] 03/01/2025 11:00 AM CDT Allied Health/Nurse Visit [place] [address] [place] [address] Norma Rowland PA-C [address] [place] [address] 03/01/2025 11:00 AM CDT Office Visit [place] [address] [place] [address] Norma Rowland PA-C [address] [place] [address] documented as of this encounter Procedures Procedure Name Priority Date/Time Associated Diagnosis Comments URINE BACTERIA CULTURE Routine 05/01/2023 12:00 PM LEAKAGE TESTER Dysuria documented in this encounter Results * CULTURE URINE (05/01/2023 12:00 PM LEAKAGE TESTER) SPEC DESCRIPTION URINE CLEAN CATCH 05/01/2023 1:13 PM LEAKAGE TESTER [facility] SPECIAL REQUESTS NO SPECIAL REQUEST 05/01/2023 1:13 PM LEAKAGE TESTER [facility] CULTURE RESULT NO GROWTH 2 DAYS 05/03/2023 8:47 AM LEAKAGE TESTER [facility] URINE SPECIMEN OBTAINED BY CLEAN CATCH PROCEDURE / Unknown 05/01/2023 12:00 PM LEAKAGE TESTER 05/01/2023 1:14 PM LEAKAGE TESTER us Bartolome Brown MD MICROBIOLOGY - GENERAL ORDER SKYLER Final Result [facility] [address] [place] [address], [facility] [address] [place] [address], documented in this encounter Visit Diagnoses Diagnosis Dysuria- Primary documented in this encounter Care Teams Irrigator Relationship Specialty Start Date End Date Abdon [place] [address] PCP - General FAMILY PRACTICE 12/17/15 [place] [address] Consulting Physician CARDIOVASCULAR DISEASE 07/05/1901/30 [place] [address] Referring Physician Nurse Practitioner Family 10/08/2104/14 Madan Palomo MD [address] [place] [address] EP Felt Cementer CLINICAL CARDIAC ELECTROPHYSIOLOGY 10/08/21 documented as of this encounter
--- OUTSIDE RECORDS SUMMARY | 2024-06-08 06:10 | XMS_ITS | Encounter Summary ---
Author Organization [facility] Address [address] [place] [address]. [place], [place] [address] [place] [address] Care Team Providers Care Clinical Resource Manager Name Role Phone Abdon Villela MD Primary Care Provider [phone] Pernell Vance MD Unavailable Unavailabl e Reason for Visit * Reason Onset Date Comments Called To Cancel Office Appt. 12/05/2019 Encounter Details Date Type Department Care Team (Late st Contact Info) Description 12/05/2019 Telephone [facility] CARDIOVASCULAR [facility] [address] [place] [address] Kamilla Oliveira, DIRECTOR OF RESEARCH Called To Cancel Office Appt. Social History Tobacco Use Types Packs/Day Years Used Date Smoking Tobacco: Former Cigarettes 1 29.6 0 02/14/1966 - 10/07/1995 Pipe Smokeless Tobacco: Never Alcohol Use Standard Drinks/Week Comments No 0 (1 standard drink = 0.6 oz pur e alcohol) Sex and Gender Information Value Date Recorded Sex Assigned at Not on file Legal Sex Male 8:13 PM CDT Gender Identity Not on file Sexual Orientation Not on file Occupation Industry Job Start Date Job End Date Not on file Not on file Not on file Not on file documented as of this encounter Progress Notes * Latoya Ocampo RN - 12/05/2019 10:08 AM CDT Pt calling to cancel his appt today with Kamilla. He's not feeling well - has a temp. Please call him to reschedule: [phone] documented in this encounter Plan of Treatment Upcoming Encounters Date Type Department Care Team (Latest Contact Info) Description 06/09/2024 2:20 PM DISEASE AND INSECT CONTROL BOSS Telemedicine [facility] [address] [place] [address] Earnest Drake MD [address] [place], [place] [address] 06/21/2024 1:30 AM DISEASE AND INSECT CONTROL BOSS [facility] [address] [place] [address] Madan Palomo MD [address] [place], [place] [address] 03/01/2025 11:00 AM CDT Allied Health/Nurse Visit [facility] [place] [address] [place] [address] Norma Rowland PA-C [address] [place], [place] [address] 03/01/2025 11:00 AM CDT Office Visit [facility] [place] [address] [place] [address] Norma Rowland PA-C [address] [place], [place] [address] documented as of this encounter Visit Diagnoses Not on filedocumented in this encounter Care Teams Clinical Resource Manager Relationship Specialty Start Date End Date Abdon Villela MD [address] [place] [address] PCP - General FAMILY PRACTICE 12/17/15 Pernell Vance MD [address] [facility] [place] [address] Consulting Physician CARDIOVASCULAR DISEASE 07/05/1901/30 documented as of this encounter
--- OUTSIDE RECORDS SUMMARY | 2024-06-08 06:10 | XMS_ITS | Encounter Summary ---
Author Organization [facility] Address [address] [place] [address]. [place] [address] [place] [address] Care Team Providers Care Auto Tune Up Mechanic Name Role Phone Abdon Villela MD Primary Care Provider [phone] Pernell Vance MD Unavailable Unavailabl e Reason for Visit * Reason Onset Date Comments Appointment Reminder 03/05/2021 Encounter Details Date Type Department Care Team (Late st Contact Info) Description 03/05/2021 Telephone [facility] [address] [place] [address] Dalton Reyes MD Appointment Reminder Social History Tobacco Use Types [...] on file documented as of this encounter Plan of Treatment Upcoming Encounters Date Type Department Care Team (Latest Contact Info) Description 06/09/2024 2:20 PM ADVISOR CONSULTANT Telemedicine [facility] Multispecialty [facility] [address] [place] [address] Earnest Drake MD [address] [place] [address] 06/21/2024 1:30 AM ADVISOR CONSULTANT Allied Health/Nurse Visit [facility] [address] [place] [address] Madan Palomo MD [address] [place] [address] 03/01/2025 11:00 AM CDT Allied Health/Nurse Visit [facility] [place] [address] [place] [address] Norma Rowland PA-C [address] [place], [place] [address] 03/01/2025 11:00 AM CDT Office Visit [facility] [place] [address] [place] [address] Norma Rowland PA-C [address] [place], [place] [address] documented as of this encounter Visit Diagnoses Not on filedocumented in this encounter Care Teams Auto Tune Up Mechanic Relationship Specialty Start Date End Date Abdon [place] [address] PCP - General FAMILY PRACTICE 12/17/15 Pernell [place] [address] Consulting Physician CARDIOVASCULAR DISEASE 07/05/1901/30 documented as of this encounter
--- OUTSIDE RECORDS SUMMARY | 2024-06-08 06:10 | XMS_ITS | Encounter Summary ---
Author Organization [facility] Address [address] [place] [address]. [place] [address] [place] [address] Care Team Providers Care Carbide Operator Name Role Phone Abdon Villela MD Primary Care Provider [phone] Pernell Vance MD Unavailable Unavailabl e Encounter Details Date Type Department Care Team (Latest Contact Info) Description 01/23/2021 Travel Social History Tobacco Use Types Packs/Day [...] file Not on file Not on file COVID-19 Exposure Response Date Recorded In the last month, have you been in contact with someone who was confirmed or suspected to have Coronavirus / COVID-19? No / Unsure 01/23/2021 1:55 PM CDT documented as of this encounter Plan of Treatment Upcoming Encounters Date Type Department Care Team (Latest Contact Info) Description 06/09/2024 2:20 PM COLOR COATER Telemedicine [facility] [address] [place] [address] Earnest Drake MD [address] [place] [address] 06/21/2024 1:30 AM COLOR COATER Allied Health/Nurse Visit [facility] [address] [place] [address] Madan Palomo MD [address] [place] [address] 03/01/2025 11:00 AM CDT Allied Health/Nurse Visit [facility] [place] [address] [place] [address] Norma Rowland PA-C [address] [place], [place] [address] 03/01/2025 11:00 AM CDT Office Visit [facility] [place] [address] [place] [phone] Norma Rowland PA-C [address] [place], [place] [address] documented as of this encounter Visit Diagnoses Not on filedocumented in this encounter Care Teams Carbide Operator Relationship Specialty Start Date End Date Abdon Villela MD [address] [place] [address] PCP - General FAMILY PRACTICE 12/17/15 Pernell Vance MD [address] [place] [address] Consulting Physician CARDIOVASCULAR DISEASE 07/05/1901/30 documented as of this encounter
--- OUTSIDE RECORDS SUMMARY | 2024-06-08 06:10 | XMS_ITS | Encounter Summary ---
Author Organization [facility] Address [address] [place] [address]. [place] [address] [place] [address] Care Team Providers Care Dice Maker Name Role Phone Abdon Villela MD Primary Care Provider [phone] Pernell Vance MD Unavailable Unavailabl e Encounter Details Date Type Department Care Team (Late st Contact Info) Description 01/23/2021 Scan [facility] [address] [place] [phone] Scanned, Documents Social History Tobacco Use Types Packs/Day Years [...] (Latest Contact Info) Description 06/09/2024 2:20 PM CRANIOLOGIST Telemedicine [facility] Medical Group Multispecialty [address] [phone] Earnest Drake MD [address] [place], [place] [id number] 06/21/2024 1:30 AM CRANIOLOGIST Allied Health/Nurse Visit [facility] [address] [place] [address] Madan Palomo MD [address] [place] [address] 03/01/2025 11:00 AM CDT Allied Health/Nurse Visit [facility] [place] [id number] [place] [phone] Norma Rowland PA-C [address] [place], [place] [address] 03/01/2025 11:00 AM CDT Office Visit [facility] [place] [address] [place] [phone] Norma Rowland PA-C [address] [place] [phone] documented as of this encounter Visit Diagnoses Not on filedocumented in this encounter Care Teams Dice Maker Relationship Specialty Start Date End Date [place] [address] PCP - General FAMILY PRACTICE 12/17/15 [place] [address] Consulting Physician CARDIOVASCULAR DISEASE 07/05/1901/30 documented as of this encounter
--- OUTSIDE RECORDS SUMMARY | 2024-06-08 06:10 | XMS_ITS | Encounter Summary ---
Author Organization [facility] Address Critical access hospital6 [facility]. [place], [place] [address] [place] [id number] Care Team Providers Care Cook Dinner Name Role Phone Abdon Mendoza MD Primary Care Provider [phone] Pernell Vance MD Unavailable UnavailKamilla Lazaro NP Unavailable Unavailable Madan Nunez MD Unavailable [phone] Reason for Referral * Imaging (Routine) - Closed Specialty Diagnoses / Procedures Referred By Davin humphries Referred To Contact RADIOLOGY Diagnoses Sinus node dysfunction (CMS/HCC HHS/HCC) Other cardiomyopathies (CMS/HCC HHS/HCC) Other hypertrophic cardiomyopathy (CMS/HCC HHS/HCC) Procedures XA LASER LEAD EXTRACTION Madan Nunez MD [address] [place] [address] Phone: tel: fax: Referral ID Status Reason Start Date Expiration Date Visits Re quested Visits Authorized [id number] Closed 09/02/2022 10/03/2023 1 1 * Imaging (Routine) - Closed Specialty Diagnoses / Procedures Referred By Davin humphries Referred To Contact RADIOLOGY Diagnoses Sinus node dysfunction (CMS/HCC HHS/HCC) Other cardiomyopathies (CMS/HCC HHS/HCC) Procedures XA BIV PACER Madan Nunez MD [address] [place] [address] Phone: tel: fax: Referral ID Status Reason Start Date Expiration Date Visits Re quested Visits Authorized [id number] Closed 09/02/2022 10/03/2023 1 1 Reason for Visit * Imaging (Routine) - Closed Specialty Diagnoses / Procedures Referred By Contac t Referred To Contact RADIOLOGY Diagnoses Sinus node dysfunction ([facility]/HCC HHS/HCC) Other cardiomyopathies (CMS/[facility] HHS/HCC) Procedures XA BIV PACER Madan Nunez MD [address] [place] [address] Phone: tel: fax: Referral ID Status Reason Start Date Expiration Date Visits Re quested Visits Authorized [id number] Closed 09/02/2022 10/03/2023 1 1 Encounter Details Date Type Department Care Team (Latest Contact Info) Description 09/16/2022 5:35 AM CDT - 09/16/2022 1:09 PM CDT Hospital Encounter [facility] [address] [place] [address] Madan Nunez MD [address] [place] [address] Amanda Martinez MD [address] [place] [address] Discharge Disposition: Home or Self Care (Routine [...] Exposure Response Date Recorded In the last 10 days, have александр smith been in contact with someone who was confirmed or suspected to have Coronavirus/COVID-19? No / Unsure 09/16/2022 5:31 AM CDT documented as of this encounter Last Filed Vital Signs Vital Sign Reading Time Taken Comments Blood Pressure 94/45 09/16/2022 10:12 AM CDT Pulse 60 09/16/2022 10:12 AM CDT Temperature 36.3 ??C (97.3 ??F) 09/16/2022 6:02 AM CD T Respiratory Rate 18 09/16/2022 10:12 AM CDT Oxygen Saturation 95% 09/16/2022 10:12 AM CDT Inhaled Oxygen Concentration - - Weight 109 kg (240 lb 4.8 oz) 09/16/2022 6:02 AM CDT Height 175.3 cm (5' 9.02 ) 09/16/2022 6:02 AM CD T Body Mass Index 35.47 09/16/2022 6:02 AM CDT documented in this encounter Discharge Summaries * Madan Nunez MD - 09/16/2022 1:09 PM CDT Images from the original note were not included. 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 Procedure was successful and post-procedure period was uneventful. He was instructed to restart apixabanon 09/18/2022 from the evening. Return to device clinic in 2 weeks Follow-up with me in 3 months Discharge Medications Medication List CHANGE how you take these medications Morning Afternoon Evening Bedtime As Needed apixaban 5 MG tablet Commonly known as: Eliquis Start taking on: September 19, 2022 Take 1 tablet (5 mg total) by mouth 2 (two) times daily. Signed by: Dr. Madan Nunez MD What changed: ?? how much to take ?? These instructions start on September 19, 2022. If you are unsure what to do until then, ask your doctor or other care provider. CONTINUE taking these medications Morning Afternoon Evening Bedtime As Needed amLODIPine 2.5 MG tablet Commonly known as: NORVASC Take 1 tablet (2.5 mg total) by mouth daily. aspirin EC 81 MG tablet Commonly known as: ECOTRIN Take 1 tablet (81 mg total) by mouth daily. atorvastatin 80 MG tablet Commonly known as: LIPITOR TAKE 1 TABLET BY MOUTH DAILY Signed by: Dr. Vik Colvin MD carvedilol 12.5 MG tablet Commonly known as: COREG TAKE 1 TABLET BY MOUTH TWICE DAILY Signed by: Dr. Vik Colvin MD glipiZIDE 10 MG tablet Commonly known as: GLUCOTROL Take 1 tablet (10 mg total) by mouth 2 (two) times daily. hydroCHLOROthiazide 25 MG tablet Commonly known as: HYDRODIURIL Take 1 tablet (25 mg total) by mouth daily. Signed by: Dr. Clifford Boss MD lisinopril 40 MG tablet Commonly known as: PRINIVIL Take 1 tablet (40 mg total) by mouth daily. Signed by: Dr. Vik Colvin MD magnesium oxide 400 (241.3 Mg) MG tablet Commonly known as: MAG-OX Take 1 tablet (400 mg total) by mouth daily. metFORMIN 1000 MG tablet Commonly known as: [...] (1,000 mcg total) by mouth daily. documented in this encounter Discharge Instructions * Discharge Instructions* Amada Esteban RN - 09/16/2022 11:21 AM CDT Due to the sedation you received today, (for 24 hours) please do not: -Sign any legal documents or make any important decisions -Drink alcohol or take medication intended to make you sleep -Drive a car or operate any hazardous machinery documented in this encounter Medications at Time [...] mg total) by mouth daily. 12/30/2019 07/27/2023 aspirin EC 81 MG tablet Take 1 tablet (81 mg total) by mouth daily. 09/13/2014 01/17/2023 ATORVASTATIN 80 MG tablet TAKE 1 TABLET BY MOUTH DAILY 90 tablet 05/18/2019 07/27/2023 CARVEDILOL 12.5 MG tablet TAKE 1 TABLET BY MOUTH TWICE DAILY 180 tablet 05/18/2019 01/21/2023 glipiZIDE 10 MG tablet Take 1 tablet (10 mg total) by mouth 2 (two) times daily. 09/13/2014 07/31/2023 hydrochlorothiazi de 25 MG tablet Take 1 tablet (25 mg total) by mouth daily. 90 tablet 3 03/25/2017 01/21/2023 lisinopril 40 MG tablet Take 1 tablet [...] daily. 03/02/2024 documented as of this encounter H&P Notes * Madan Nunez MD - 09/16/2022 6:13 AM CDT Images from the original note were not included. Cardiac Electrophysiology Clinic Note PATIENT NAME: Avila Fernandez : 1945 REFERRING PROVIDER: Madan Nunez MD PCP: ABDON MENDOZA MD PRIMARY CARDIOLOGY PROVIDER: Pernell Vance MD Reason for Visit Cardiac electrophysiology follow-up for atrial fibrillation, CHF chronic systolic and management ofcardiac device in situ History of Present Illness I had the pleasure of seeing Avila Fernandez in the Cardiac Electrophysiology Clinic at [place]. As you are aware, Avila Fernandez is a 77-year-old male with PMH of persistent atrial fibrillation, CHF chronic systolic last EF 35 to 40%, high degree AV block status postdual-chamber pacemaker implantation in 2012, hypertension, hyperlipidemia, coronary artery disease presented to the hospital for elective biventricular pacemaker upgrade. He underwent dual-chamber pacemaker implantation for high degree AV block in April 2013. Recently he underwent echocardiogramwhich showed a decline in LV systolic function to 35 to 40%. He denies any chest pain. Complains ofshortness of breath, NYHA class II. Denies any orthopnea/PND. Denies any pedal edema. Denies any palpitations. Denies any syncopal episodes. Complains of fatigue. Diagnostics EKG - From today shows atrial fibrillation with ventricular pacing. EKG was independently reviewed by me. Echo - from May 2022 shows LVEF of 35 to 40%. No significant valvular abnormalities Diagnosis 1. CHF chronic systolic, last EF 35 to 40% likely secondary to RV pacing induced cardiomyopathy 2. Complete heart block 3. Longstanding persistent atrial fibrillation 4. Coronary artery disease 5. Cardiac device in situ- Medtronic dual-chamber pacemaker implanted in 2012 6. Hypertension 7. Hyperlipidemia Recommendations 1. CHF chronic systolic: Last EF 35 to 40%. Likely secondary to RV pacing induced cardiomyopathy. He is currently 100% RV paced with underlying complete heart block. Given high RV pacing with underlying systolic dysfunction, he will benefit from biventricular pacemaker upgrade. I discussed with himin detail regarding the procedure. We had previously discussed the small possibility of requiring laser lead extraction of his right atrial lead if subclavian vein is occluded. The risks versus benefits were discussed and questions were answered. 2. Longstanding persistent atrial fibrillation: Rate controlled due to underlying complete heart block. Continue apixaban. Thank you for allowing me to participate in the care of Avila Fernandez Medications No current facility-administered medications on file prior to encounter. Current Outpatient Medications on File Prior to Encounter Medication Sig Dispense Refill ??? amLODIPine 2.5 MG tablet Take 1 tablet (2.5 mg total) by mouth daily. ??? aspirin EC 81 MG tablet Take 1 tablet (81 mg total) by mouth daily. ??? ATORVASTATIN 80 MG tablet TAKE 1 TABLET BY MOUTH DAILY 90 tablet 0 ??? CARVEDILOL 12.5 MG tablet TAKE 1 TABLET BY MOUTH TWICE DAILY 180 tablet 0 ??? glipiZIDE 10 MG tablet Take 1 tablet (10 mg total) by mouth 2 (two) times daily. ??? hydrochlorothiazide 25 MG tablet Take 1 tablet (25 mg total) by mouth daily. 90 tablet 3 ??? lisinopril 40 MG tablet Take 1 tablet (40 mg total) by mouth daily. 90 tablet 0 ??? magnesium oxide 400 (241.3 Mg) MG tablet Take 1 tablet (400 mg total) by mouth daily. ??? metFORMIN 1000 MG tablet Take 1 tablet (1,000 mg total) by mouth 2 (two) times daily. ??? vitamin B-12 1000 MCG tablet Take 1 tablet (1,000 mcg total) by mouth daily. ??? ELIQUIS 5 MG tablet TAKE 1 TABLET BY MOUTH TWICE A DAY 60 tablet 5 ??? nitroGLYCERIN 0.4 MG SL tablet Take 1 tablet (0.4 mg total) by mouth every 5 (five) minutes as needed. ??? polyethylene glycol powder Allergies No Known Allergies Past Medical History Past Medical History: Diagnosis Date ??? Coronary artery disease ??? Diabetes mellitus (CMS/HCC) ??? Disorder of prostate ??? Hyperlipidemia ??? Hypertension Past Surgical History Past Surgical History: Procedure Laterality Date ??? CORONARY ART DIL,ONE VESSEL 2010 ??? INSER COBIAN PACER XVENOUS ATRIAL 05/04/2013 Social History Social History Tobacco Use ??? Smoking status: Former Packs/day: 1.00 Types: Cigarettes, Pipe Start date: 02/14/1966 Quit date: 10/07/1995 Years since quittin.9 ??? Smokeless tobacco: Never Substance Use Topics ??? Alcohol use: No ??? Drug use: No Family History Family History Problem Relation Name Age of Onset ??? Heart Attack Mother No family history of arrhythmias Review of Systems Review of Systems Constitutional: Positive for malaise/fatigue. HENT: Negative for ear discharge and nosebleeds. Eyes: Negative for blurred vision and double vision. Respiratory: Positive for shortness of breath. Negative for cough. Cardiovascular: Negative for chest pain, palpitations, orthopnea, [...] is not nervous/anxious. Physical Examination Filed Vitals: 09/16/22 0602 BP: 127/67 Pulse: 69 Resp: 16 Temp: 97.3 ??F (36.3 ??C) SpO2: 96% Weight: 109 kg (240 lb 4.8 oz) Height: 5' 9.02 (1.753 m) Physical Exam Vitals reviewed. Constitutional: Appearance: Normal [...] Judgment: Judgment normal. documented in this encounter Procedure Notes * Madan Nunez MD - 09/16/2022 10:12 AM CDTAssociated Order(s): XA BIV PACER Images from the original note were not included. 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 Informed consent was obtained. A peripheral IV was in place. Continuous electrocardiographic, blood pressure, Ox saturation was initiated. Self-adhesive cardioversion patches were positioned on the chest. Monitored anesthesia care was administered per protocol. After positioning the patient and prepping and draping a sterile field, the region of the left deltopectoral groove was liberally infiltrated with local anesthetic agent. Following this, a 5 cm long transverse incision was made through the skin and subcutaneous tissue over the pre-existing device pocket, exposing the pectoral fascia and muscle beneath. A pocket was expanded for the new pulse generator in the subcutaneous space. Hemostasis was readily achieved with electrocautery. Ultrasound guidance was used for obtaining vascular access. Using ultrasound, left axillary venous system was visualized and evaluated for potential access site. Left axillary vein was patent. Ultrasound visualization of the vascular needle entry into the vessel wall was seen and modified Seldingertechnique was used to achieve vascular access of left axillary vein and one 9 Fr sheath was placed in the Subclavian vein. A coronary sinus guiding sheath was subsequently advanced into the right atrium, and the coronary sinus was engaged via manipulation of an 8-Fr guide sheath and 0.035 guidewire through this sheath. Subsequently, a balloon-tipped catheter was introduced and a coronary sinus venogram was performed using 10 cc of IV- contrast. There were 2 small caliber posterior lateral and lateral branches with distal tapering which could not accommodate the lead or have adequate pacing thresholds. The left ventricular lead was then advanced to the posterior branch of the CS and advanced laterally, and satisfactory sensing and pacing function was ensured.Ten-volt pacing was used temporarily and assessment made for diaphragmatic stimulation; there was none. This lead was then secured in place at its entry tothe vein. The previously-formed pocket was irrigated with antibiotic solution as was the rest of the incision. After this, the lead was connected securely to the new pulse generator. Similarly, the old RA and RV leads were disconnected from goalpost and return currently to the new pulse generator. After assuring good function of lead and generator, the lead was wrapped carefully behind the generator, and the generator placed in the pocket along with TYRX antibiotic pouch. Hemostasis was assured one last time and the pocket closed. The pocket was closed in two layers using 2-O, 3-O vicryl sutures. Dermabond was used for skin closure and aquacel dressing was applied. Sponge and needle counts were correct at the end. Device and Lead Specifications: Device Model and Serial No: Medtronic Percepta Quad GAS MANAGER-P [id number] RV Lead Model and Serial No: Medtronic [id number] 58cm [id number] implanted:05/04/2013 LV Lead Model and Serial No: Medtronic [id number] 88cm [id number] RA Lead Model and Serial No: Medtronic [id number] 53cm [id number] implanted:05/04/2013 Baseline Interrogation: Battery Voltage/Status: 3.05v. RV Lead: Pacing Threshold: 0.5v@ 0.4ms. Impedance: 551 ohms. Electrogram Amplitude: Dependent. LV Lead: Pacing Threshold: 1.5v@ 0.4ms. Impedance: 570 ohms. Electrogram Amplitude: LV1-Can RA Lead: Pacing Threshold: N/A. Impedance: 380 ohms. Electrogram Amplitude: 0.5mV. Final Programmed Parameters: Pacing Mode: VVIR. Lower Rate: 60 bpm. Upper Rate: 120 bpm . RV Lead: Pulse amplitude: 2.0v. Pulse width:0.4ms. Sensitivity: 0.9mV. LV Lead: Pulse amplitude: 2.5v. Pulse width:0.4ms. Sensitivity: LV1-Can. RA Lead: Pulse amplitude: N/A. Pulse width: N/A. Sensitivity: N/A. Specimens Removed: REMOVED DEVICE: MedPressable Gma [id number] [id number] implanted:05/04/2013 Estimated Blood Loss: 10 cc Complications: None. Summary: Successful upgrade of dual-chamber pacemaker to biventricular pacemaker with addition of coronary sinus lead Recommendations: 1. CXR PA & Lat now followed by device interrogation. 2. Wound check and follow up instructions will be provided to patient. 3. Restart apixaban on 09/19/2022 Madan Nunez M.D. 09/16/2022 documented in this encounter Plan of Treatment Upcoming Encounters Date Type Department Care Team (Latest Contact Info) Description 06/09/2024 2:20 PM NURSE OB Telemedicine [facility] [address] [place] [phone] Earnest Drake MD [address] [place] [address] 06/21/2024 1:30 AM NURSE OB Allied Health/Nurse Visit [facility] [address] [place] [address] Madan Nunez MD [address] [place] [address] 03/01/2025 11:00 AM CDT Allied Health/Nurse Visit [facility] [place] [phone] Norma Rowland PA-C [address] [place] [address] 03/01/2025 11:00 AM CDT Office Visit [facility] [address] [place] [phone] Norma Rowland PA-C [address], [place] [phone] Pending Results Name Type Priority Associated Diagnoses Date /Time XA LASER LEAD EXTRACTION Cardiac Cath Routine Sinus node dysfunction (CMS/HCC HHS/HCC) Other cardiomyopathies (CMS/HCC HHS/HCC) Other hypertrophic cardiomyopathy (CMS/HCC HHS/HCC) 09/16/2022 10:15 AM CDT Scheduled Orders Name Type Priority Associated Diagnoses Orde r Schedule XA LASER LEAD EXTRACTION Cardiac Cath Routine Sinus node dysfunction (CMS/HCC HHS/HCC) Other cardiomyopathies (CMS/HCC HHS/HCC) Other hypertrophic cardiomyopathy (CMS/HCC HHS/HCC) Once for 1 Occurrences starting 09/16/2022 until 09/16/2022 documented as of this encounter Procedures Procedure Name Priority Date/Time Associated Diagnosis Comments XR CHEST PA+LAT Today 09/16/2022 11:23 AM CDT Other cardiomyopathies (CMS/HCC HHS/HCC) XA BIV PACER Routine 09/16/2022 10:15 AM CDT Sinus node dysfunction (CMS/HCC HHS/HCC) Other cardiomyopathies (CMS/HCC HHS/HCC) TYPE & SCREEN STAT 09/16/2022 6:10 AM CDT ORDER FRESH FROZEN PLASMA Routine 09/16/2022 5:38 AM CDT documented in this encounter Results * XR CHEST PA+LAT (09/16/2022 11:23 AM CDT) Anatomical Region Laterality Modality Chest Radiographic Betsey ging 09/16/2022 12:4 8 PM CDT Impressions 09/16/2022 12:50 PM CDT IMPRESSION: 1. Multilead left-sided cardiac pacing device as above. No definite pneumothorax. Ordered By: MADAN NUNEZ Interpreted By: Jaciel Slaughter MD, 09/16/2022 12:48 PM Narrative 09/16/2022 12:50 PM CDT Examination: Chest x-ray 2 view Exam time: 09/16/2022 11:21 AM Clinical history: Postoperative. Pacemaker. Grade Comparison: 03/13/2018 Technique: Frontal and lateral views of the chest were obtained. Findings: Multilead left-sided cardiac pacing device evident with leads projecting over the upper right atrium, right ventricle, and coronary sinus. Cardiomegaly. Aortic tortuosity. Right hemidiaphragm elevation. No consolidations, pleural effusions, or definite pneumothorax. Procedure Note Jaciel Slaughter MD - 09/16/2022 Examination: Chest x-ray 2 view Exam time: 09/16/2022 11:21 AM Clinical history: Postoperative. Pacemaker. Grade Comparison: 03/13/2018 Technique: Frontal and lateral views of the chest were obtained. Findings: Multilead left-sided cardiac pacing device evident with leadsprojecting over the upper right atrium, right ventricle, and coronarysinus. Cardiomegaly. Aortic tortuosity. Right hemidiaphragm elevation. Noconsolidations, pleural effusions, or definite pneumothorax. IMPRESSION: 1. Multilead left-sided cardiac pacing device as above. No definitepneumothorax. Ordered By: MADAN NUNEZ Interpreted By: Jaciel Slaughter MD, 09/16/2022 12:48 PM us Madan Nunez MD GENERAL IMAGING Final Res ult * XA BIV PACER (09/16/2022 10:15 AM CDT) Anatomical Region Laterality Modality Cardiac Marketing Executive Narrative 09/16/2022 10:12 AM CDT Madan Nunez MD ? 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 Ancef 2 gm Sedation provided by anesthesiology Description of Operation Performed, Including Technique The patient was brought to the Cardiac Electrophysiology laboratory in a post-absorptive, fasting state after receiving 3 scrubs to the implant area. Informed consent was obtained. A peripheral IV was in place. Continuous electrocardiographic, blood pressure, Ox saturation was initiated. Self-adhesive cardioversion patches were positioned on the chest. ??Monitored anesthesia care was administered per protocol. After positioning the patient and prepping and draping a sterile field, the region of the left deltopectoral groove was liberally infiltrated with local anesthetic agent. ??Following this, a 5 cm long transverse incision was made through the skin and subcutaneous tissue over the pre-existing device pocket, exposing the pectoral fascia and muscle beneath. A pocket was expanded for the new pulse generator in the subcutaneous space. Hemostasis was readily achieved with electrocautery. Ultrasound guidance was used for obtaining vascular access. ?? Using ultrasound, left axillary venous system was visualized and evaluated for potential access site. ??Left axillary vein was patent. ??Ultrasound visualization of the vascular needle entry into the vessel wall was seen and modified Seldinger technique was used to achieve vascular access of left axillary vein and one 9 Fr sheath was placed in the Subclavian vein. A coronary sinus guiding sheath was subsequently advanced into the right atrium, and the coronary sinus was engaged via manipulation of an 8-Fr guide sheath and 0.035 guidewire through this sheath. Subsequently, a balloon-tipped catheter was introduced and a coronary sinus venogram was performed using 10 cc of IV-contrast. ??There were 2 small caliber posterior lateral and lateral branches with distal tapering which could not accommodate the lead or have adequate pacing thresholds. ??The left ventricular lead was then advanced to the posterior branch of the CS and advanced laterally, and satisfactory sensing and pacing function was ensured.Ten-volt pacing was used temporarily and assessment made for diaphragmatic stimulation; there was none. This lead was then secured in place at its entry to the vein. The previously-formed pocket was irrigated with antibiotic solution as was the rest of the incision. After this, the lead was connected securely to the new pulse generator. ??Similarly, the old RA and RV leads were disconnected from goalpost and return currently to the new pulse generator. ??After assuring good function of lead and generator, the lead was wrapped carefully behind the generator, and the generator placed in the pocket along with TYRX antibiotic pouch. Hemostasis was assured one last time and the pocket closed. The pocket was closed in two layers using 2-O, 3-O vicryl sutures. Dermabond was used for skin closure and aquacel dressing was applied. Sponge and needle counts were correct at the end. Device and Lead Specifications: Device Model and Serial No: Medtronic Percepta Quad GAS MANAGER-P [id number] ?? [id number] RV Lead Model and Serial No: Medtronic [id number] 58cm ??[id number] implanted:05/04/2013 LV Lead Model and Serial No: Medtronic [id number] 88cm ??[id number] RA Lead Model and Serial No: Medtronic [id number] 53cm ??[id number] implanted:05/04/2013 Baseline Interrogation: Battery Voltage/Status: 3.05v. RV Lead: Pacing Threshold: 0.5v@ 0.4ms. Impedance: 551 ohms. Electrogram Amplitude: Dependent. LV Lead: Pacing Threshold: ??1.5v@ 0.4ms. Impedance: 570 ohms. ?? Electrogram Amplitude: LV1-Can RA Lead: Pacing Threshold: N/A. Impedance: 380 ohms. Electrogram Amplitude: 0.5mV. Final Programmed Parameters: ? Pacing Mode: VVIR. Lower Rate: 60 bpm. Upper Rate: 120 bpm . RV Lead: Pulse amplitude: 2.0v. Pulse width:0.4ms. Sensitivity: 0.9mV. LV Lead: Pulse amplitude: 2.5v. Pulse width:0.4ms. ??Sensitivity: LV1-Can. RA Lead: Pulse amplitude: N/A. Pulse width: N/A. Sensitivity: N/A. Specimens Removed: REMOVED DEVICE: Medtronic Gma [id number] ??[id number] implanted:05/04/2013 Estimated Blood Loss: 10 cc Complications: None. Summary: Successful ??upgrade of dual-chamber pacemaker to biventricular pacemaker with addition of coronary sinus lead Recommendations: 1. CXR PA & Lat now followed by device interrogation. 2. Wound check and follow up instructions will be provided to patient. 3. ??Restart apixaban on 09/19/2022 Madan Nunez M.D. 09/16/2022 Madan Nunez MD GEOSPATIAL IMAGE ANALYST Final Res ult * TYPE & SCREEN - Verify expiration date is current (09/16/2022 6:10 AM CDT) UNITS ORDERED 4 09/16/2022 6:21 AM CDT [facility] ABO/RH O POSITIVE 09/16/2022 6:57 AM CDT [facility] ANTIBODY SCREEN NEGATIVE 09/16/2022 6:57 AM CDT [facility] SAMPLE EXPIRATION 09/19/2022,2 359 09/16/2022 6:21 AM CDT [facility] 09/16/2022 6:10 AM CDT Madan Nunez MD BLOOD BANK TEST ORDERABLE S Final Result [facility] [address] [place] [address], [id number] * ORDER FRESH FROZEN PLASMA, 4 Units (09/16/2022 5:38 AM CDT) UNITS ORDERED 4 09/16/2022 5:38 AM CDT [facility] 09/16/2022 5:38 AM CDT Madan Nunez MD BLOOD BANK PRODUCT ORDERA BLES Final Result [facility] [address] [place] [address], [id number] documented in this encounter Visit Diagnoses Diagnosis Sinus node dysfunction (CMS/HCC HHS/HCC) Sinoatrial node dysfunction Other cardiomyopathies (CMS/HCC HHS/HCC) 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 documented in this encounter Administered Medications Inactive Administered Medications - up to 3 most recent administrations Medication Order MAR Action Action Date Dose Rate Site acetaminophen (TYLENOL) tablet 650 mg 650 mg, Oral, Every 6 hours PRN, Mild pain (Scale 1 - 3), Starting on Thu09/16/22 at 1113, Until Thu09/16/22 at 1514, Maximum dose of acetaminophen is 4000 mg from all sources in 24 hours., Post-Op chlorhexidine (PERIDEX) 0.12 % solution 15 mL 15 mL, Mouth/Throat, PRN, Prior to surgery, 1 dose, Starting on Thu09/16/22 at 0537, Until Thu09/16/22 at 0608, Patient to perform oral care first. Swish/Gargle in mouth for 30 seconds, and then discard, prior to going to surgery/ If ventilated use saturated swab to clean oral cavity., Pre-Op Given 09/16/2022 6:08 AM CDT 15 mLs normal saline 0.9 % flush 3-10 mL 3-10 mL, Intravenous, Every 8 hours, First dose on Thu09/16/22 at 1130, Until Discontinued, Post-Op normal saline 0.9 % flush 3-10 mL 3-10 mL, Intravenous, As needed, Line care, Starting on Thu09/16/22 at 1113, Until Thu09/16/22 at 1514, Post-Op ondansetron (ZOFRAN) injection 4 mg 4 mg, Intravenous, Every 8 hours PRN, Nausea, 2 doses, Starting on Thu09/16/22 at 1113, Until Thu09/16/22 at 1514, IV push over 2-5 minutes., Post-Op oxyCODONE-acetaminophen (PERCOCET) 5-325 MG tablet 1 tablet 1 tablet, Oral, Every 4 hours PRN, Severe pain (Scale 8 - 10), Starting on Thu09/16/22 at 1113, Until Thu09/16/22 at 1514, Maximum dose of acetaminophen is 4000 mg from all sources in 24 hours., Post-Op sodium chloride 0.9% infusion at 10 mL/hr, Intravenous, Continuous, Starting on Thu09/16/22 at 0600, Until Thu09/16/22 at 1514, Infuse at TKO rate, Pre-Op New Bag 09/16/2022 7:31 AM CDT traMADol (ULTRAM) tablet 50 mg 50 mg, Oral, Every 6 hours PRN, Moderate pain (Scale 4 - 7), Starting on Thu09/16/22 at 1113, Until Thu09/16/22 at 1514, Post-Op documented in this encounter Active and Recently Administered Medications Times are shown in CDT. Scheduled Medication Order 09/14/2022 09/15/2022 09/16/2022 normal saline 0.9 % flush 3-10 mL 3-10 mL, Intravenous, Every 8 hours, First dose on Thu09/16/22 at 1130, Until Discontinued, Post-Op 1130 (Canceled Entry - Provider: Automatic Discharge Provider - Comment: Automatically canceled at discontinue of medication order) Continuous Medication Order 09/14/2022 09/15/2022 09/16/2022 sodium chloride 0.9% infusion at 10 mL/hr, Intravenous, Continuous, Starting on Thu09/16/22 at 0600, Until Thu09/16/22 at 1514, Infuse at TKO rate, Pre-Op 0731 (New Bag - Prov ider: Stalin Wolf CRNA)0957 (Infusion Stop Time - Provider: Stalin Wolf CRNA)1005 (Anesthesia Volume Adjustment - Provider: Stalin Wolf CRNA) PRN Medication Order 09/14/2022 09/15/2022 09/16/2022 acetaminophen (TYLENOL) tablet 650 mg 650 mg, Oral, Every 6 hours PRN, Mild pain (Scale 1 - 3), Starting on Thu09/16/22 at 1113, Until Thu09/16/22 at 1514, Maximum dose of acetaminophen is 4000 mg from all sources in 24 hours., Post-Op chlorhexidine (PERIDEX) 0.12 % solution 15 mL (COMPLETED) 15 mL, Mouth/Throat, PRN, Prior to surgery, 1 dose, Starting on Thu09/16/22 at 0537, Until Thu09/16/22 at 0608, Patient to perform oral care first. Swish/Gargle in mouth for 30 seconds, and then discard, prior to going to surgery/ If ventilated use saturated swab to clean oral cavity., Pre-Op 0608 (Given - Provid er: Latoya Potter RN) normal saline 0.9 % flush 3-10 mL 3-10 mL, Intravenous, As needed, Line care, Starting on Thu09/16/22 at 1113, Until Thu09/16/22 at 1514, Post-Op ondansetron (ZOFRAN) injection 4 mg 4 mg, Intravenous, Every 8 hours PRN, Nausea, 2 doses, Starting on Thu09/16/22 at 1113, Until Thu09/16/22 at 1514, IV push over 2-5 minutes., Post-Op oxyCODONE-acetaminophen (PERCOCET) 5-325 MG tablet 1 tablet 1 tablet, Oral, Every 4 hours PRN, Severe pain (Scale 8 - 10), Starting on Thu09/16/22 at 1113, Until Thu09/16/22 at 1514, Maximum dose of acetaminophen is 4000 mg from all sources in 24 hours., Post-Op traMADol (ULTRAM) tablet 50 mg 50 mg, Oral, Every 6 hours PRN, Moderate pain (Scale 4 - 7), Starting on Thu09/16/22 at 1113, Until Thu09/16/22 at 1514, Post-Op documented in this encounter Care Teams Cook Dinner Relationship Specialty Start Date End Date Abdon Mendoza MD [address] [place] [phone] PCP - General FAMILY PRACTICE 12/17/15 Pernell Vance MD [address] [place] [address] Consulting Physician CARDIOVASCULAR DISEASE 07/05/1901/30 Kamilla Oliveira NP [address] [place] [address] Referring Physician Nurse Practitioner Family 10/08/2104/14 Madan Nunez MD [address] [place] [address] EP Cash Controller CLINICAL CARDIAC ELECTROPHYSIOLOGY 10/08/21 documented as of this encounter
--- OUTSIDE RECORDS SUMMARY | 2024-06-08 06:10 | XMS_ITS | Encounter Summary ---
Author Organization [facility] Address [address] [place] [address]. [place] [address] [place] [address] Care Team Providers Care Human Resource Assistant Name Role Phone Abdon Villela MD Primary Care Provider [phone] Pernell Vance MD Unavailable UnavailKamilla Lazaro NP Unavailable Unavailable Madan Palomo MD Unavailable [phone] Reason for Visit * Reason Comments Follow Up Encounter Details Date Type Department Care Team (Late st Contact Info) Description 12/31/2022 9:30 AM CDT Office Visit [facility] [place] [phone] Madan Palomo MD [address] [place], [place] [id number] Follow Up Social History Tobacco Use Types Packs/Day Years [...] Sign Reading Time Taken Comments Blood Pressure 105/53 12/31/2022 10:44 AM CDT Pulse 61 12/31/2022 10:44 AM CDT Temperature - - Respiratory Rate 24 12/31/2022 10:44 AM CDT Oxygen Saturation 100% 12/31/2022 10:44 AM CDT Inhaled Oxygen Concentration - - Weight 99.8 kg (220 lb) 12/31/2022 10:44 AM CDT Height 177.8 cm (5' 10 ) 12/31/2022 10:44 AM CDT Body Mass Index 31.57 12/31/2022 10:44 AM CDT documented in this encounter Progress Notes * Madan Palomo MD - 12/31/2022 9:30 AM CDT Images from the original note [...] Fernandez in the Cardiac Electrophysiology Clinic at [facility]. As you are aware, Avila Fernandez is a 77-year-old male with PMH of persistent atrial fibrillation, high degree AV block status post dual-chamber pacemaker implantation in 2012 with recent upgrade to Medtronic biventricular pacemaker in August 2022 for RV pacing induced cardiomyopathy, CHF chronic systolic last EF 35 to 40%, hypertension, hyperlipidemia, coronary artery disease presented to our clinic for follow-up visit for persistent atrial fibrillation, CHF chronic systolic and management of cardiac device in situ. He was a former patient of Dr. Reyes who hadleft our practice. He underwent dual-chamber pacemaker implantation for high degree AV block in April 2013. Recently he underwent echocardiogram which showed a decline in LV systolic function to 35 to 40% and underwent successful upgrade to biventricular pacemaker. Today he presents for follow-up. He denies any chest pain. Complains of shortness of breath, NYHA class II-III. Denies any orthopne a/PND. Denies any pedal edema. Denies any palpitations. Denies any syncopal episodes. States that his fatigue is marginally improved since biventricular pacemaker upgrade. Device interrogation today reveals 99% biventricular pacing with brief episodes of nonsustained ventricular tachycardia noted. Flat heart rate histograms noted. Diagnostics EKG - From today shows atrial fibrillation with biventricular pacing. EKG was independently reviewed by me. Echo - from May 2022 shows LVEF of 35 to 40%. No significant valvular abnormalities Diagnosis 1. CHF chronic systolic, last EF 35 to 40% 2. Complete heart block 3. Longstanding persistent atrial fibrillation 4. Coronary artery disease 5. Cardiac device in situ- Medtronic dual-chamber pacemaker implanted in 2012 upgraded to biventricular pacemaker in August 2022 6. Hypertension 7. Hyperlipidemia Recommendations 1. CHF chronic systolic: Last EF 35 to 40%. Status post cardiac resynchronization therapy. Continuelisinopril and carvedilol. He will benefit from cardiac rehab which he will discuss with Dr. Vance on next visit. 2. Longstanding persistent atrial fibrillation: Rate controlled due to underlying complete heart block. He had mild chronotropic incompetence noted on device interrogation today. We increased the slope of rate response curve and ADL heart rate. Continue apixaban. 3. Nonsustained ventricular tachycardia: His device interrogation revealed brief episodes of nonsustained ventricular tachycardia. Last echocardiogram showed LVEF of 35 to 40%. Continue carvedilol. If he has any longer episodes of ventricular arrhythmias on device interrogation in future, he would benefit from repeat echocardiogram to assess for any change in LV systolic function. 4. Cardiac device in situ: His Medtronic dual-chamber pacemaker was interrogated today. It revealedexcellent pacing and sensing thresholds. Brief episodes of nonsustained ventricular tachycardia noted. Continue remote monitoring in 3 months. Return to clinic in 1 year Thank you for allowing me to participate in the care of Avila Fernandez Medications Current Outpatient Medications: amLODIPine 2.5 MG tablet, Take 1 tablet (2.5 mg total) by mouth daily., Disp: , Rfl: apixaban (ELIQUIS) 5 MG tablet, Take 1 tablet (5 mg total) by mouth 2 (two) times daily., Disp: 60 tablet, Rfl: 5 aspirin EC 81 MG tablet, Take 1 tablet (81 mg total) by mouth daily., Disp: , Rfl: ATORVASTATIN 80 MG tablet, TAKE 1 TABLET BY MOUTH DAILY, Disp: 90 tablet, Rfl: 0 CARVEDILOL 12.5 MG tablet, TAKE 1 TABLET BY MOUTH TWICE DAILY, Disp: 180 tablet, Rfl: 0 glipiZIDE 10 MG tablet, Take 1 tablet (10 mg total) by mouth 2 (two) times daily., Disp: , Rfl: hydrochlorothiazide 25 MG tablet, Take 1 tablet (25 mg total) by mouth daily., Disp: 90 tablet, Rfl: 3 lisinopril 40 MG tablet, Take 1 tablet (40 mg total) by mouth daily., Disp: 90 tablet, Rfl: 0 magnesium oxide 400 (241.3 Mg) MG tablet, Take 1 tablet (400 mg total) by mouth daily., Disp: , Rfl: metFORMIN 1000 MG tablet, Take 1 tablet (1,000 mg total) by mouth 2 (two) times daily., Disp: , Rfl: nitroGLYCERIN 0.4 MG SL tablet, Take 1 tablet (0.4 mg total) by mouth every 5 (five) minutes as needed., Disp: , Rfl: vitamin B-12 1000 MCG tablet, Take 1 tablet (1,000 mcg total) by mouth daily., Disp: , Rfl: polyethylene glycol powder, , Disp: , Rfl: Allergies Review of patient's allergies indicates: No Known Allergies Past Medical History Past Medical History: Diagnosis Date Coronary artery disease Diabetes mellitus (CMS/HCC) Disorder of prostate Hyperlipidemia Hypertension Past Surgical History Past Surgical History: Procedure Laterality Date CORONARY ART DIL,ONE VESSEL 2010 INSER COBIAN PACER XVENOUS ATRIAL 05/04/2013 Social History Social History Tobacco Use Smoking [...] is not nervous/anxious. Physical Examination Filed Vitals: 12/31/22 1044 BP: 105/53 Pulse: 61 Resp: 24 SpO2: 100% Weight: 99.8 kg (220 lb) Height: 5' 10 (1.778 m) Physical Exam Vitals reviewed. Constitutional: Appearance: [...] (Latest Contact Info) Description 06/09/2024 2:20 PM QUALITY FACILITATOR [facility] [address] [phone] Earnest Drake MD [address] [place] [address] 06/21/2024 1:30 AM QUALITY FACILITATOR Allied Health/Nurse Visit [facility] [address] [place] [address] Madan Palomo MD [address] [place] [address] 03/01/2025 11:00 AM CDT Allied Health/Nurse Visit [facility] [address] [place] [phone] Norma Rowland PA-C [address] [place], [place] [phone] 03/01/2025 11:00 AM CDT Office Visit [facility] [address] [place] [address] Norma Rowland PA-C [address] [place] [phone] documented as of this encounter Visit Diagnoses Diagnosis Chronic atrial fibrillation (CMS/HCC HHS/HCC)- Primary Atrial fibrillation documented in this encounter Care Teams Human Resource Assistant Relationship Specialty Start Date End Date [place] [address] PCP - General FAMILY PRACTICE 12/17/15 [place] [address] Consulting Physician CARDIOVASCULAR DISEASE 07/05/1901/30 [place] [address] Referring Physician Nurse Practitioner Family 10/08/2104/14 Madan Palomo MD [address] [place] [address] EP Tape Recorder Mechanic CLINICAL CARDIAC ELECTROPHYSIOLOGY 10/08/21 documented as of this encounter
--- OUTSIDE RECORDS SUMMARY | 2024-06-08 06:10 | XMS_ITS | Encounter Summary ---
Author Organization [facility] Address [address] [place] [address]. [place] [address] [place] [address] Care Team Providers Care Channel Turner Name Role Phone Abdon Villela MD Primary Care Provider [phone] Pernell Vance MD Unavailable Unavailabl e Reason for Visit * Reason Comments Follow Up Encounter Details Date Type Department Care Team (Late st Contact Info) Description 01/23/2021 2:30 PM CDT Office Visit [facility] [address] [place] [phone] Kamilla Oliveira NP Follow Up Social History Tobacco Use Types [...] PM CDT documented as of this encounter Last Filed Vital Signs Vital Sign Reading Time Taken Comments Blood Pressure 126/58 01/23/2021 2:29 PM CDT Pulse 80 01/23/2021 2:29 PM CDT EKG Temperature - - Respiratory Rate 22 01/23/2021 2:29 PM CDT Oxygen Saturation - - Inhaled Oxygen Concentration - - Weight 116.7 kg (257 lb 3.2 oz) 01/23/2021 2:29 PM CDT Height 175.3 cm (5' 9 ) 01/23/2021 2:29 PM CDT Body Mass Index 37.98 01/23/2021 2:29 PM CDT documented in this encounter Progress Notes * Kamilla Oliveira, SPLUNK ARCHITECT - 01/23/2021 2:30 PM CDT Reason for Visit: Follow Up History of Present Illness: Mr. Fernandez is a very pleasant 75-year-old man with a history of diabetes mellitus, hypertension, coronary artery disease, long-standing persistent atrial fibrillation, and high-grade AV block who underwent implantation of a dual- chamber pacemaker on May 04, 2013. He presents today for annual follow-up. He reports he has been doing fairly well. He has no device related complaints. He has no sensation of his abnormal rhythm. He denies palpitations, dizziness, lightheadedness, syncope, or presyncope. He is pleased he is feeling so well. He is on Eliquis 5 mg twice daily for stroke risk reduction is tolerating this without abnormal bleeding or bruising noted.His implantation site remains free of erythema or tenderness. ?? Echocardiogram was performed in June 2018 and revealed LVEF of 58%. ?? Interrogation of his device today reveals a dual-chamber Medtronic pacemaker. Battery longevity is estimated 3.5 years. Pacing thresholds, sensing, lead impedance are all within normal limits. His underlying rhythm is complete heart block. He is in VVIR mode. He is ventricular paced 99.3%. ?? EKG today reveals atrial fibrillation with ventricular pacing. Recommendations and Plan: 1. Device follow-up: His battery remains well above the elective replacement indicator and the device is functioning within normal operational limits. No programming changes were made to his device today. ?? 2. Long-standing persistent atrial fibrillation: He has no awareness of his abnormal rhythm. ?? 3. Stroke risk: His CHADS-VASc is at least 5 out of 9. He continues Eliquis at 5 mg twice daily forstroke risk reduction is tolerating this without abnormal bleeding or bruising noted. He is aware of the importance of continuing anticoagulation in the setting of atrial fibrillation. 4. He will continue quarterly [facility] transmissions of his device. We will plan follow up in approximately 1 year. We would be pleased to see him sooner should anything arise from an electrophysiologic standpoint. Medications: Current Outpatient Medications: ??? amLODIPine 2.5 MG tablet, Take 2.5 mg by mouth daily. , Disp: , Rfl: ??? aspirin (ALEXIS LOW DOSE) 81 MG Tab EC, Take 1 tablet by mouth daily., Disp: , Rfl: ??? ATORVASTATIN 80 MG tablet, TAKE 1 TABLET BY MOUTH DAILY, Disp: 90 tablet, Rfl: 0 ??? CARVEDILOL 12.5 MG tablet, TAKE 1 TABLET BY MOUTH TWICE DAILY, Disp: 180 tablet, Rfl: 0 ??? ELIQUIS 5 MG tablet, TAKE 1 TABLET BY MOUTH TWICE A DAY, Disp: 60 tablet, Rfl: 10 ??? glipiZIDE 10 MG tablet, Take 1 tablet by mouth 2 (two) times daily., Disp: , Rfl: ??? hydrochlorothiazide 25 MG tablet, Take 1 tablet (25 mg total) by mouth daily., Disp: 90 tablet,Rfl: 3 ??? lisinopril 40 MG tablet, Take 1 tablet (40 mg total) by mouth daily., Disp: 90 tablet, Rfl: 0 ??? magnesium oxide 400 (241.3 Mg) MG tablet, Take 400 mg by mouth daily., Disp: , Rfl: ??? metFORMIN 1000 MG tablet, Take 1 tablet by mouth 2 (two) times daily., Disp: , Rfl: ??? nitroGLYCERIN 0.4 MG SL tablet, Take 1 tablet by mouth every 5 (five) minutes as needed., Disp:, Rfl: ??? polyethylene glycol powder, , Disp: , Rfl: ??? vitamin B-12 1000 MCG tablet, Take 1,000 mcg by mouth daily., Disp: , Rfl: No Known Allergies Past Medical History: Diagnosis Date ??? Coronary artery disease ??? Diabetes mellitus (CMS/HCC) ??? Disorder of prostate ??? Hyperlipidemia ??? Hypertension Past Surgical History: Procedure Laterality Date ??? CORONARY ART DIL,ONE VESSEL 2010 ??? INSER COBIAN PACER XVENOUS ATRIAL 05/04/2013 Social History Tobacco Use ??? Smoking status: Former Smoker Packs/day: 1.00 Types: Cigarettes, Pipe Start date: 02/14/1966 Quit date: 10/07/1995 Years since quittin.3 ??? Smokeless tobacco: Never Used Substance Use Topics ??? Alcohol use: No ??? Drug use: No Family History Problem Relation Name Age of Onset ??? Heart Attack Mother Family Status Relation Name Status ??? Mother ??? Father ??? Brother Alive Review of Systems Constitutional: Negative for recent unintentional weight gain, recent unintentional weight loss andnew or significant fatigue. HENT: Positive for hearing loss. Eyes: Negative for blurred vision and double vision. Respiratory: Negative for cough, new or significant shortness of breath and snoring. Cardiovascular: See HPI. Gastrointestinal: Negative for blood in stool and melena. Genitourinary: Negative for dysuria. Musculoskeletal: Negative for myalgias and new or worsening joint stiffness/pain. Skin: Negative for rash. Neurological: Negative for tingling/numbness and focal weakness. Endo/Heme/Allergies: Negative for new or significant bruising/bleeding and polydipsia. Psychiatric/Behavioral: Negative for depression and new or significant memory loss. Vitals: 01/23/21 1429 BP: 126/58 Patient Position: Sitting BP Location: Left arm Pulse: 80 Weight: 116.7 kg (257 lb 3.2 oz) Height: 5' 9 (1.753 m) Body mass index is 37.98 kg/m??. Physical Exam Constitutional: No distress. HENT: Dentition normal. Eyes: Pupils equal, round, and reactive to light. Conjunctivae normal. Neck: Normal range of motion. Neck supple. Thyroid normal. No JVD. Pulmonary: Effort normal. Breath sounds normal. Abdomen: Abdomen soft. Bowel sounds normal. No tenderness. No mass. No hepatomegaly. No splenomegaly. Abdominal aorta not palpably enlarged. Neurological: Alert. Oriented x 3. Appropriate mood and affect. Intact cranial nerves. Normal motorskills. Normal gait. Skin: Dry. Warm. No cyanosis. No clubbing. Musculoskeletal: No kyphosis. Normal ROM. Cardiovascular: Rate: Regular rhythm and Normal rate. PMI: PMI not displaced Pulses: Negative for edema. Normal pulses. Heart Sounds: Normal heart sounds. Normal S1 and Normal S2 No gallop. No S3 sound. No S4 sound and No murmur. Cardiovascular Comments: Diagnoses/Impression: 1. Chronic atrial fibrillation (CMS/HCC) ELECTROCARDIOGRAM (NON MIDMARK ACQUIRED) 2. Current use of custodial anticoagulation 3. Encounter for interrogation of cardiac pacemaker PINNACLE Documentation Completed: Atrial Fibrillation Referring Provider: Abdon Villela MD PCP: ABDNO VILLELA MD documented in this encounter Plan of Treatment Upcoming Encounters Date Type Department Care Team (Latest Contact Info) Description 06/09/2024 2:20 PM PRINTER ASSISTANT Telemedicine [facility] [address] [place] [address] Earnest Drake MD [address] [place], [place] [id number] 06/21/2024 1:30 AM PRINTER ASSISTANT Allied Health/Nurse Visit [facility] [address] [place] [address] Madan Palomo MD [address] [place] [address] 03/01/2025 11:00 AM CDT Allied Health/Nurse Visit [facility] [place] [address] [place] [address] Norma Rowland PA-C [address] [place] [address] 03/01/2025 11:00 AM CDT Office Visit [facility] [place] [address] [place] [address] Norma Rowland PA-C [address] [place] [address] documented as of this encounter Procedures Procedure Name Priority Date/Time Associated Diagnosis Comments ELECTROCARDIOGRAM (NON MIDMARK ACQUIRED) Routine 01/23/2021 2:26 PM CDT Chronic atrial fibrillation (CMS/HCC HHS/HCC) documented in this encounter Results * ELECTROCARDIOGRAM (NON MIDMARK ACQUIRED) (01/23/2021 2:26 PM CDT) 01/23/2021 2:26 PM CDT Narrative [facility] - 01/24/2021 11:02 AM CDT ? [facility], [facility] ?[address] [place], [place] ??[address] ? Test Date: ?2021-01-23 Pat Name: ? ANNIEBUCK FERNANDEZ ?Department: ? Room: ? Gender: ? Male ? 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 : ?1945 ? Requested By: AUBREY KAMARA Order Number: [id number] ?Reading MD: ?? Aubrey Kamara ? Measurements Intervals ?Midway ? Rate: ? 86 ? P: ? GA: ? 0 ?QRS: ?-86 QRSD: ? 192 ?T: ?95 QT: ? 427 ? QTc: ?512 ? Interpretive Statements ELECTRONIC VENTRICULAR PACEMAKER ABNORMAL RHYTHM ECG Procedure Note Aubrey Kamara MD - 01/24/2021 [facility], [address] [address] Test Date: 2021-01-23 Pat Name: ANNIE FERNANDEZ Department: Room: Gender: Male Retort Press Operator: : 1945 Requested By: AUBREY KAMARA Order Number: [id number] Rhiannon MD: Aubrey Kamara Measurements Intervals Midway Rate: 86 P: GA: 0 QRS: -86 QRSD: 192 T: 95 QT: 427 QTc: 512 Interpretive Statements ELECTRONIC VENTRICULAR PACEMAKER ABNORMAL RHYTHM ECG us Aubrey Kamara MD PROCEDURES-ORDERABLE NO SUPA RGE Final Result DAVID VILLATORO documented in this encounter Visit Diagnoses Diagnosis Chronic atrial fibrillation ([facility])- Primary Atrial fibrillation Current use of roasterman anticoagulation Encounter for long-term (current) use of anticoagulants Encounter for interrogation of cardiac pacemaker Fitting and adjustment of cardiac pacemaker documented in this encounter Care Teams Channel Turner Relationship Specialty Start Date End Date Abdon Villela MD [address] [place] [address] PCP - General FAMILY PRACTICE 12/17/15 Pernell Vance MD [address] [place] [address] Consulting Physician CARDIOVASCULAR DISEASE 07/05/1901/30 documented as of this encounter
--- OUTSIDE RECORDS SUMMARY | 2024-06-08 06:10 | XMS_ITS | Encounter Summary ---
Author Organization [facility] Address [address] [place] [address]. [place] [address] [place] [address] Care Team Providers Care Preventive Maintenance Coordinator Name Role Phone Abdon Villela MD Primary Care Provider [phone] Pernell Vance MD Unavailable Unavailabl e Reason for Visit * Reason Comments Follow Up Encounter Details Date Type Department Care Team (Late st Contact Info) Description 03/01/2020 10:30 AM CDT Office Visit [facility] AT [address] [place] [phone] Pernell Vance MD Follow Up Social History Tobacco Use Types [...] or suspected to have Coronavirus / COVID-19? Unable to assess 03/01/2020 8:48 AM CDT documented as of this encounter Last Filed Vital Signs Vital Sign Reading Time Taken Comments Blood Pressure 120/72 03/02/2020 11:46 AM CDT Pulse 75 03/01/2020 11:45 AM CDT Temperature - - Respiratory Rate - - Oxygen Saturation 99% 03/01/2020 11:45 AM CDT Inhaled Oxygen Concentration - - Weight 117.9 kg (260 lb) 03/01/2020 11:45 AM CDT Height 182.9 cm (6') 03/01/2020 11:45 AM CDT Body Mass Index 35.26 03/01/2020 11:45 AM CDT documented in this encounter Patient Instructions * Patient Instructions* Mary Ellen Perez RN - 03/01/2020 10:30 AM CDT 1. Same meds 2. RTC 1 year 3. Weight loss, exercise 4. Lipids to documented in this encounter Progress Notes * Pernell Vance MD - 03/01/2020 10:30 AM CDT Reason for Visit: Follow Up History of Present Illness: Recommendations and Plan: Medications: Current Outpatient Medications: ??? amLODIPine 2.5 [...] TWICE A DAY, Disp: 60 tablet, Rfl: 2 ??? glipiZIDE 10 MG tablet, Take 1 [...] 1.00 Types: Cigarettes, Pipe Start date: 02/14/1966 Last attempt to quit: 10/07/1995 Years since quittin.4 ??? Smokeless tobacco: Never Used Substance Use [...] Positive for shortness of breath. Negative for cough and snoring. Cardiovascular: See HPI. Positive for claudication and leg swelling. Gastrointestinal: Positive for constipation. Negative for blood in stool and melena. Genitourinary: Negative for dysuria. Musculoskeletal: Positive for joint stiffness/pain. Negative for myalgias. Skin: Negative for rash. Neurological: Positive for tingling/numbness. Negative for focal weakness. Endo/Heme/Allergies: Positive for easy bruising/bleeding. Negative for polydipsia. Psychiatric/Behavioral: Negative for depression and new or significant memory loss. All other systems reviewed and are negative. Vitals: 03/01/20 1145 03/02/20 1146 BP: 119/70 120/72 BP Location: Left arm Right arm Pulse: 75 Weight: 117.9 kg (260 lb) Height: 6' (1.829 m) Body mass index is 35.26 kg/m??. Physical Exam Constitutional: No distress. HENT: Teeth/gums normal. Hard of hearing. Eyes: Pupils equal, round, and reactive to light. Conjunctivae normal. Neck: Normal range of motion. Neck supple. Thyroid normal. No JVD. Pulmonary: Effort normal. Breath sounds normal. Abdomen: Abdomen soft. Bowel sounds normal. Distension. No tenderness. No mass. No hepatomegaly. Nosplenomegaly. Abdominal aorta not palpably enlarged. No abdominal aortic bruit. Neurological: Alert. Oriented x 3. Appropriate for situation. Intact cranial nerves. Normal motor skills. Normal gait. Skin: Dry. Warm. No cyanosis. No clubbing. Musculoskeletal: No kyphosis. Normal ROM. Cardiovascular: Rate: Regular rhythm and Normal rate. PMI: PMI not displaced Pulses: Right Carotid pulses 2+, Left Carotid pulses 2+, Right Radial pulses 2+, Left Radial pulses2+, Right Femoral pulses 2+, Left Femoral pulses 2+, Right Popliteal pulses 2+, Left Popliteal pulses 2+, Right DP pulses 2+, Left DP pulses 2+, Right PT pulses 2+, Left PT Pulses 2+, Negative for edema. Normal pulses. Heart Sounds: Normal heart sounds. Normal S1 and Normal S2 No gallop. No S3 sound. No S4 sound and No murmur. Cardiovascular Comments: The documentation for the above exam was created using a template entered by ancillary staff however the physical exam was completed entirely by the provider responsible for this visit. The physical exam documentation was reviewed and modified by the provider to reflect his/her findings. ; Diagnoses/Impression: No diagnosis found. PINNACLE Documentation Completed: Coronary Artery Disease Referring Provider: Abdon Villela MD PCP: ABDON VILLELA MD * Pernell Vance MD - 03/01/2020 12:00 AM CDT HISTORY OF PRESENT ILLNESS: Mr. Fernandez is seen in the [facility] today for a scheduled followup visit. Mr. Fernandez has been followed in the past by Dr. Boss. Mr. Fernandez relates that he is doing well from a cardiac standpoint. He denies any anginal chest pain or shortness of breath. His activities are mostly limited by his bilateral knee problems. He denies any overt symptoms. He denies any palpitations, syncope, or near syncope. He has had no claudication or recent symptoms to suggest TIA or CVA. He is tolerating his present medications well. Recent evaluation included an EKG which showed 100% ventricular pacing at a rate of 84 beats per minute. An echocardiogram from 2018 showed mild asymmetrical left ventricular hypertrophy with a calculated LVEF of 58%. Right ventricular size was mildly enlarged with overall right ventricular systolic function to be at the lower limits of normal. There was mild tricuspid regurgitation with an estimated right ventricular systolic pressure of 41 mmHg. RECOMMENDATIONS AND PLAN: Mr. Fernandez's cardiac status appears clinically stable at the present time without ongoing cardiac symptomatology. He remains in atrial fibrillation with ventricular pacing and is tolerating his Eliquis anticoagulation. Continued medical therapy and close observation seem most appropriate at the present time. Aggressive cardiac risk factor modification will be important in his long-term care. I have recommended the following to Mr. Fernandez: 1. Aggressive attempts at weight loss and participation in a regular exercise program. 2. Continue present medical regimen without alteration. 3. Lipid management will be deferred to his primary care physician, Dr. Villela. A reasonable goal would be to attain an LDL cholesterol fraction of 70 or less associated with a normal total cholesterol to HDL cholesterol ratio and serum triglyceride level. 4. Annual followup in the cardiology clinic. I have encouraged Mr. Fernandez to contact me in the meantime should he have any questions or problems. documented in this encounter Plan of Treatment Upcoming Encounters Date Type Department Care Team (Latest Contact Info) Description 06/09/2024 2:20 PM DATA MANAGER Telemedicine [facility] [address] [place] [address] Earnest Drake MD [address] [place] [address] 06/21/2024 1:30 AM DATA MANAGER Allied Health/Nurse Visit [facility] [address] [place] [address] Madan Palomo MD [address] [place] [address] 03/01/2025 11:00 AM CDT Allied Health/Nurse Visit [facility] [place] [address] [place] [address] Norma Rowland PA-C [address] [place] [address] 03/01/2025 11:00 AM CDT Office Visit [place] [address] [place] [address] Norma Rowland PA-C [address] [place] [address] documented as of this encounter Visit Diagnoses Diagnosis Coronary artery disease 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- Primary S/p bare metal coronary artery stent Chronic atrial fibrillation ([facility]) Atrial fibrillation Cardiac pacemaker in situ Chronic diastolic heart failure ([facility]) Chronic diastolic heart failure Essential hypertension Unspecified essential hypertension Hyperlipidemia, unspecified hyperlipidemia type documented in this encounter Care Teams Preventive Maintenance Coordinator Relationship Specialty Start Date End Date [place] [address] PCP - General FAMILY PRACTICE 12/17/15 [place] [address] Consulting Physician CARDIOVASCULAR DISEASE 07/05/1901/30 documented as of this encounter
--- OUTSIDE RECORDS SUMMARY | 2024-06-08 06:10 | XMS_ITS | Encounter Summary ---
Author Organization [facility] Address [facility]. [place], [place] [id number] [place] [address] Care Team Providers Care Lip Cutter And Scorer Name Role Phone Abdon Villela MD Primary Care Provider [phone] Pernell Vance MD Unavailable UnavailKamilla Lazaro NP Unavailable Unavailable Madan Palomo MD Unavailable [phone] Reason for Referral * Imaging (Routine) - Closed Specialty Diagnoses / Procedures Referred By Davin humphries Referred To Contact RADIOLOGY Diagnoses Ventricular tachyarrhythmia ([facility]) Abnormal electrocardiogram (ECG) (EKG) Procedures USE ECHOCARDIOGRAM Madan Palomo MD [address] [place] [address] Phone: tel: fax: Referral ID Status Reason Start Date Expiration Date Visits Re quested Visits Authorized [id number] Closed 03/26/2022 04/26/2023 1 1 [facility] Reason for Visit * Imaging (Routine) - Closed Specialty Diagnoses / Procedures Referred By Davin humphries Referred To Contact RADIOLOGY Diagnoses Ventricular tachyarrhythmia ([facility] HHS/HCC) Abnormal electrocardiogram (ECG) (EKG) Procedures USE ECHOCARDIOGRAM Madan Palomo MD [address] [place] [address] Phone: tel: fax: Referral ID Status Reason Start Date Expiration Date Visits Re quested Visits Authorized [id number] Closed 03/26/2022 04/26/2023 1 1 Encounter Details Date Type Department Care Team (Latest Contact Info) Description 05/27/2022 9:15 AM TOBACCO GROWER - 05/27/2022 11:59 PM TOBACCO GROWER Hospital Encounter [facility] [address] [place] [address] Madan Palomo MD [address] [place] [address] Discharge Disposition: Home or Self Care (Routine [...] Recorded In the last 10 days, have yo u been in contact with someone who was confirmed or suspected to have Coronavirus/COVID-19? No / Unsure 05/27/2022 9:09 AM TOBACCO GROWER documented as of this encounter Medications at Time of Discharge metFORMIN 1000 MG tablet Take 1 tablet [...] MOUTH TWICE DAILY 180 tablet 05/18/2019 01/21/2023 ELIQUIS 5 MG tablet TAKE 1 TABLET BY MOUTH TWICE A DAY 60 tablet 5 03/04/2022 08/29/2022 glipiZIDE 10 MG tablet Take 1 tablet [...] (Latest Contact Info) Description 06/09/2024 2:20 PM TOBACCO GROWER Telemedicine [facility] [facility] [address] [place] [address] Earnest Drake MD [address] [place] [address] 06/21/2024 1:30 AM TOBACCO GROWER Allied Health/Nurse Visit [facility] [address] [place] [address] Madan Palomo MD [address] [place] [address] 03/01/2025 11:00 AM CDT Allied Health/Nurse Visit [facility] [place] [address] Norma Rowland PA-C [address] [place] [address] 03/01/2025 11:00 AM CDT Office Visit [facility] [address] [place] [address] Norma Rowland PA-C [address] [place] [address] documented as of this encounter Procedures Procedure Name Priority Date/Time Associated Diagnosis Comments USE ECHOCARDIOGRAM Routine 05/27/2022 11 :06 AM TOBACCO GROWER Ventricular tachyarrhythmia ([facility] HHS/HCC) Abnormal electrocardiogram (ECG) (EKG) documented in this encounter Results * USE ECHOCARDIOGRAM (05/27/2022 11:06 AM TOBACCO GROWER) Anatomical Region Laterality Modality Cardiac Ultrasound Madan Palomo MD ECHO Final Res ult documented in this encounter Visit Diagnoses Diagnosis Ventricular tachyarrhythmia (CMS/HCC HHS/HCC) Paroxysmal ventricular tachycardia Abnormal electrocardiogram (ECG) (EKG) documented in this encounter Administered Medications Inactive Administered Medications - up to 3 most recent administrations Medication Order MAR Action Action Date Dose Rate Site perflutren lipid microsphere (DEFINITY) injection 2 mL 2 mL, Intravenous, IMG once as needed, Contrast, 1 dose, Starting on 05/27/22 at 1106, Until 05/27/22 at 1106, Administer over 30-60 seconds. Follow with 10 mL saline flush. Given 05/27/2022 11:06 AM TOBACCO GROWER 2 mLs documented in this encounter Care Teams Lip Cutter And Scorer Relationship Specialty Start Date End Date Abdon [place] [address] [place] [address] PCP - General FAMILY PRACTICE 12/17/15 [place] [address] Consulting Physician CARDIOVASCULAR DISEASE 07/05/1901/30 Kamilla Oliveira NP [address] [place] [address] Referring Physician Nurse Practitioner [facility] 10/08/2104/14 Madan Palomo MD [address] [place], [place] [address] EP Produce Sorter CLINICAL CARDIAC ELECTROPHYSIOLOGY 10/08/21 documented as of this encounter
--- OUTSIDE RECORDS SUMMARY | 2024-06-08 06:10 | XMS_ITS | Encounter Summary ---
Author Organization [facility] Address [address] [place] [address]. [place], [place] [address] [place] [address] Care Team Providers Care Transplanter Orchid Name Role Phone Abdon Villela MD Primary Care Provider [phone] Pernell Vance MD Unavailable Unavailabl e Reason for Visit * Reason Onset Date Comments Letter 07/05/2019 care reassignmen t letter Encounter Details Date Type Department Care Team (Late st Contact Info) Description 07/05/2019 Telephone [employer] [facility] [address] [place] [address] Vik Colvin MD Letter (care reassignment letter) Social History Tobacco Use Types Packs/Day Years [...] as of this encounter Progress Notes * Abiola Cha - 07/05/2019 12:[address] Colvin patient reassigned to Dr Vance to be seen in [place]. Recall has been updated, patient is due 10/2019. ROLL LAMINATOR documented in this encounter Plan of Treatment Upcoming Encounters Date Type Department Care Team (Latest Contact Info) Description 06/09/2024 2:20 PM HOT ROLL LAMINATOR Telemedicine [facility] Medical Group Multispecialty [facility] [address] [place] [address] Earnest Drake MD [address] [place], [place] [phone] 06/21/2024 1:30 AM HOT ROLL LAMINATOR [facility] [address] [place] [address] Madan Palomo MD [address] [place] [address] 03/01/2025 11:00 AM CDT Allied Health/Nurse Visit [facility] [place] [place] [address] Norma Rowland PA-C [address] [place] [address] 03/01/2025 11:00 AM CDT Office Visit [facility] [place] [place] [address] Norma Rowland PA-C [address] [place], [place] [address] documented as of this encounter Visit Diagnoses Not on filedocumented in this encounter Care Teams Transplanter Orchid Relationship Specialty Start Date End Date Abdon [place] [address] PCP - General FAMILY PRACTICE 12/17/15 Pernell [place] [address] [place] [address] Consulting Physician CARDIOVASCULAR DISEASE 07/05/1901/30 documented as of this encounter
--- OUTSIDE RECORDS SUMMARY | 2024-06-08 06:10 | XMS_ITS | Encounter Summary ---
Author Organization [facility] Address [address] [place] [address]. [place] [address] [place] [address] Care Team Providers Care Lens Grinder Name Role Phone Abdon Villela MD Primary Care Provider [phone] Pernell Vance MD Unavailable UnavailKamilla Lazaro NP Unavailable Unavailable Madan Palomo MD Unavailable [phone] Encounter Details Date Type Department Care Team (Late st Contact Info) Description 03/04/2022 8:45 AM CDT Allied Health/Nurse Visit [facility] [address] [place] [address] Dalton Reyes MD Social History Tobacco Use Types Packs/Day Years [...] as of this encounter Progress Notes * Ofelia Dominguez LPN - 03/04/2022 8:45 AM CDT Images from the original note were not included. PACEMAKER REMOTE INTERROGATION NAME: Avila Fernandez : 1945 CSN: [id number] DATE OF INTERROGATION: 03/04/2022 FOLLOW UP ETimothyP PHYSICIAN: Dr Madan Palomo DEVICE SPECIFICATIONS INVESTMENT MANAGER [employer] DEVICE TYPE SINGLE CHAMBER PACEMAKER EST. BATTERY LIFE OR CURRENT VOLTAGE/GITA VOLTAGE 31mo LEAD IMPEDENCE TRENDS [place] ATRIAL PACING % Na-VVIR RV PACING % 99.4 BIV/LV PACING % na COMMENTS ATRIAL ARRHYTHMIA AF BURDEN Na-VVIR % LONGEST EPISODE na ORAL ANTICOAGULATION Eliquis/Apixaban and ASA COMMENTS VENTRICULAR ARRHYTHMIA HIGH VENTRICULAR RATES/VT 3 events since last transmission COMMENTS NSVT <5s ALERTS / NURSE COMMENTS ??? SEE ATTACHED PDF FOR VENDOR PRINTOUTS (PRESENTING, HISTOGRAMS, EGM'S) ??? Normal Device Function PHYSICIAN COMMENTS (IF ANY) Cosigned by Madan Palomo MD at 03/20/2022 6:35 AM CDT documented in this encounter Plan of Treatment Upcoming Encounters Date Type Department Care Team (Latest Contact Info) Description 06/09/2024 2:20 PM FORESTRY SUPPORT SPECIALIST Telemedicine [facility] Medical Group Multispecialty [facility] [address] [place] [address] Earnest Drake MD [address] [place] [address] 06/21/2024 1:30 AM FORESTRY SUPPORT SPECIALIST [facility] [address] [place] [address] Madan Palomo MD [address] [place] [address] 03/01/2025 11:00 AM CDT Allied Health/Nurse [facility] [place] [address] Norma Rowland PA-C [address] [place] [address] 03/01/2025 11:00 AM CDT Office Visit [facility] [address] [place] [address] Norma Rowland PA-C [address] [place] [address] documented as of this encounter Visit Diagnoses Diagnosis AVB (atrioventricular block) Atrioventricular block, unspecified documented in this encounter Care Teams Lens Grinder Relationship Specialty Start Date End Date Abdon Villela MD [address] [place] [address] PCP - General FAMILY PRACTICE 12/17/15 Pernell Vance MD [address] [place] [address] Consulting Physician CARDIOVASCULAR DISEASE 07/05/1901/30 Kamilla Oliveira NP [address] [place] [address] Referring Physician Nurse Practitioner Family 10/08/2104/14 Madan Palomo MD [address] [place] [address] EP Associate Web Developer CLINICAL CARDIAC ELECTROPHYSIOLOGY 10/08/21 documented as of this encounter
--- OUTSIDE RECORDS SUMMARY | 2024-06-08 06:10 | XMS_ITS | Encounter Summary ---
Author Organization [facility] Address [address] [place] [address]. [place] [address] [place] [address] Care Team Providers Care Sustainability Specialist Name Role Phone Abdon Villela MD Primary Care Provider [phone] Pernell Vance MD Unavailable Unavailabl e Encounter Details Date Type Department Care Team (Late st Contact Info) Description 10/30/2020 1:15 PM CDT Allied Health/Nurse Visit [facility] [address] [place] [address] Dalton Reyes MD Social History Tobacco Use [...] as of this encounter Progress Notes * Kalani Soni RN - 10/30/2020 1:15 PM CDT Images from the original note were not included. PACEMAKER REMOTE INTERROGATION NAME: Avila Fernandez : 1945 CSN: [id number] DATE OF INTERROGATION: 10/30/2020 FOLLOW UP E.P PHYSICIAN: Dr Dalton Reyes DEVICE SPECIFICATIONS ENVIRONMENTAL SERVICES COORDINATOR [employer] DEVICE TYPE SINGLE CHAMBER PACEMAKER EST. BATTERY LIFE OR CURRENT VOLTAGE/GITA VOLTAGE 4 y LEAD IMPEDENCE TRENDS [place] ATRIAL PACING % na RV PACING % 99.1% BIV/LV PACING % na COMMENTS ATRIAL ARRHYTHMIA AF BURDEN na % LONGEST EPISODE na ORAL ANTICOAGULATION Eliquis/Apixaban and ASA COMMENTS VENTRICULAR ARRHYTHMIA HIGH VENTRICULAR RATES/VT 1 COMMENTS 7 sec ALERTS / NURSE COMMENTS ??? SEE ATTACHED PDF FOR VENDOR PRINTOUTS (PRESENTING, HISTOGRAMS, EGM'S) ??? Normal device function ??? PHYSICIAN COMMENTS (IF ANY) ??? Cosigned by Dalton Reyes MD at 11/08/2020 4:24 PM CDT documented in this encounter Plan of Treatment Upcoming Encounters Date Type Department Care Team (Latest Contact Info) Description 06/09/2024 2:20 PM AQUATIC INSTRUCTOR Telemedicine [facility] Medical Group Multispecialty [facility] [address] [place] [address] Earnest Drake MD [address] [place], [place] [address] 06/21/2024 1:30 AM AQUATIC INSTRUCTOR Allied Health/Nurse Visit [facility] [address] [place] [address] Madan Palomo MD [address] [place] [address] 03/01/2025 11:00 AM CDT Allied Health/Nurse Visit [facility] [place] [address] Norma Rowland PA-C [address] [place] [address] 03/01/2025 11:00 AM CDT [facility] [address] [place] [address] Norma Rowland PA-C [address] [place] [address] documented as of this encounter Visit Diagnoses Not on filedocumented in this encounter Care Teams Sustainability Specialist Relationship Specialty Start Date End Date Abdon Villela MD [address] [place] [address] PCP - General FAMILY PRACTICE 12/17/15 Pernell Vance MD [address] [place] [address] Consulting Physician CARDIOVASCULAR DISEASE 07/05/1901/30 documented as of this encounter
--- OUTSIDE RECORDS SUMMARY | 2024-06-08 06:10 | XMS_ITS | Encounter Summary ---
Author Organization [facility] Address [facility] [place] [place] [address] [place] [address] Care Team Providers Care Wireless Sales Manager Name Role Phone Abdon Villela MD Primary Care Provider [phone] Pernell Vance MD Unavailable UnavailKamilla Lazaro NP Unavailable Unavailable Madan Palomo MD Unavailable [phone] Encounter Details Date Type Department Care Team (Late st Contact Info) Description 12/31/2022 9:30 AM CDT Allied Health/Nurse Visit [facility] [place] [address] Madan Palomo MD [address] [place], [place] [address] Social History Tobacco Use Types Packs/Day Years [...] as of this encounter Progress Notes * Arias Case RN - 12/31/2022 9:30 AM CDT In office device check performed by [employer] rep on 12/31/2022 See media for pdf Cosigned by Madan Palomo MD at 01/05/2023 6:40 AM CDT documented in this encounter Plan of Treatment Upcoming Encounters Date Type Department Care Team (Latest Contact Info) Description 06/09/2024 2:20 PM QUANTITATIVE ANALYST MARKETING Telemedicine [facility] Medical Group Multispecialty [facility] [address] [place] [address] Earnest Drake MD [address] [place], [place] [phone] 06/21/2024 1:30 AM QUANTITATIVE ANALYST MARKETING Allied Health/Nurse Visit [facility] [address] [place] [address] Madan Palomo MD [address] [place], [place] [address] 03/01/2025 11:00 AM CDT Allied Health/Nurse Visit [facility] [address] [place] [address] Norma Rowland PA-C [address] [place] [address] 03/01/2025 11:00 AM CDT Office Visit [facility] [address] Norma Rowland PA-C [address] [place] [address] documented as of this encounter Visit Diagnoses Diagnosis AV block- Primary Atrioventricular block, unspecified documented in this encounter Care Teams Wireless Sales Manager Relationship Specialty Start Date End Date Abdon Villela MD [address] [place] [address] PCP - General FAMILY PRACTICE 12/17/15 Pernell Vance MD [address] [place] [address] Consulting Physician CARDIOVASCULAR DISEASE 07/05/1901/30 Kamilla Oliveira NP [address] [place] [address] Referring Physician Nurse Practitioner [facility] 10/08/2104/14 Madan Palomo MD [address] [place] [address] EP Machine Puller And Laster CLINICAL CARDIAC ELECTROPHYSIOLOGY 10/08/21 documented as of this encounter
--- OUTSIDE RECORDS SUMMARY | 2024-06-08 06:10 | XMS_ITS | Encounter Summary ---
Author Organization [facility] Address [facility] [place] [address] [place] [address] Care Team Providers Care High Pressure Operator Name Role Phone Abdon Villela MD Primary Care Provider [phone] Pernell Vance MD Unavailable Unavailabl Kamilla Dorsey NP Unavailable Unavailable Juan Cortez MD Unavailable Unava ilable Madan Palomo MD Unavailable [phone] Reason for Visit * Reason Onset Date Comments Appointment Request 10/08/2021 Transfer [facility] care from [facility] Encounter Details Date Type Department Care Team (Late st Contact Info) Description 10/08/2021 Telephone [facility] [address] [place] [address] Kamilla Oliveira NP Appointment Request (Transfer of care from [facility] to [facility]) Social History Tobacco Use Types Packs/Day Years [...] Progress Notes * Arias Case RN - 10/09/2021 8:36 AM CDT Device clinic notes changed t Dr Rey for follow up * Jaqueline Cervantes - 10/08/2021 4:48 PM CDT Call from MARIO Edwards at PCP Ray [facility], . Pt wld like to transfer EP care to Dr. Rey in [place]. Grace verbalized understanding that I willcall Avila to schedule. Called Avila. He is aware that my 1st opening for a Medt PPM check is Apr. He will have remotes in November and Feb, so we opted for appt on Thu06/04/22 at 10:00AM w/ [facility] at [facility]. Appt letter mailed. Medt rep notified. This note faxed to Grace at fax [phone] for verification. Device Team: Please change physician w/ [employer]. * Cristy Mora RN - 10/08/2021 3:[address] Villela's office and left for return call. * Olivia Neri - 10/08/2021 2:39 PM CDT VOICEMAIL RECEIVED 10/08/21 @ 2:20pm: Myron, this is Lizett at Dr. Ray Villela's office. Calling in regards to a mutual patient, MARYAM Dickinson 43. If someone could call our office back. My phone number is [phone]. Thank you documented in this encounter Plan of Treatment Upcoming Encounters Date Type Department Care Team (Latest Contact Info) Description 06/09/2024 2:20 PM CERTIFIED PROFESSIONAL MIDWIFE Telemedicine [facility] Medical Group [facility] [address] [place] [address] Earnest Drake MD [address] [place] [address] 06/21/2024 1:30 AM CERTIFIED PROFESSIONAL MIDWIFE [facility] [address] [place] [address] Madan Palomo MD [address] [place], [place] [address] 03/01/2025 11:00 AM CDT Allied Health/Nurse Visit [facility] [place] [address] [place] [address] Norma Rowland PA-C [address] [place], [place] [address] 03/01/2025 11:00 AM CDT Office Visit [facility] [address] [place] [address] Norma Rowland PA-C [address] [place], [place] [address] documented as of this encounter Visit Diagnoses Not on filedocumented in this encounter Care Teams High Pressure Operator Relationship Specialty Start Date End Date Abdon Villela MD [address] [address] PCP - General FAMILY PRACTICE 12/17/15 [place] [address] Consulting Physician CARDIOVASCULAR DISEASE 07/05/1901/30 Kamilla Oliveira NP [address] [place] [address] Referring Physician Nurse Practitioner Family 10/08/2104/14 Juan Cortez MD [address] [place] [address] Consulting Physician CLINICAL CARDIAC ELECTROPHYSIOLOGY 10/08/21 10/08/21 Madan Palomo MD [address] [place], [place] [address] EP Fire Lieutenant Marine CLINICAL CARDIAC ELECTROPHYSIOLOGY 10/08/21 documented as of this encounter
--- OUTSIDE RECORDS SUMMARY | 2024-06-08 06:10 | XMS_ITS | Encounter Summary ---
Author Organization [facility] Address [facility] [place] [place] [address] [place] [address] Care Team Providers Care Research Recruiter Name Role Phone Abdon Villela MD Primary Care Provider [phone] Pernell Vance MD Unavailable UnavailKamilla Lazaro NP Unavailable Unavailable Madan Palomo MD Unavailable [phone] Reason for Visit * Reason Onset Date Comments Appointment Request 12/31/2022 Encounter Details Date Type Department Care Team (Late st Contact Info) Description 12/31/2022 Telephone [facility] ld [address] [place] [address] Pernell Vance MD Appointment Request Social History Tobacco Use Types [...] as of this encounter Progress Notes * Lizz Hyde RN - 01/02/2023 4:41 PM CDT Phoned patient, states is doing well. Needs to have f/u in [place], f/u appointment made for 04/06 at 2:30 pm Agrees to this date/time * Donna Carroll - 01/01/2023 4:07 PM CDT VOICEMAIL Date: 01/01/23 Time: 3:09 Who is calling:pt Phone number: [phone] Message: the pt is calling to schedule an appt with Dr. Vance. How handled sent to the nurse * Lizz Hyde RN - 12/31/2022 1:42 PM CDT Images from the original note were not included. Message Received: Today Alma Roca MA P P[facility] Rajiv Nurse; P P[facility] Rajiv [place]; P P[facility] Alex Lombardo Nurse Hello! Dr. Rey saw Avila Fernandez today at his clinic in [place]. He would like to have an appointment with either Dr. Vance or Luciana Lombardo to discuss Cardiac Rehab. Please reach out to patient regarding this. Thank you! Chart reviewed, last seen by Dr. Vance on 03/01/2020. Phoned patient, message left to call our office back to discuss scheduling f/u documented in this encounter Plan of Treatment Upcoming Encounters Date Type Department Care Team (Latest Contact Info) Description 06/09/2024 2:20 PM SUPERVISOR CIGARETTE MAKING DEPARTMENT Telemedicine [facility] Medical [facility] [address] [place] [address] Earnest Drake MD [address] [place] [address] 06/21/2024 1:30 AM SUPERVISOR CIGARETTE MAKING DEPARTMENT Allied Health/Nurse Visit [facility] [address] [place] [address] Madan Palomo MD [address] [place] [address] 03/01/2025 11:00 AM CDT Allied Health/Nurse Visit [facility] [address] [place] [address] Norma Rowland PA-C [address] [place], [place] [address] 03/01/2025 11:00 AM CDT Office Visit [place] [address] [place] [address] Norma Rowland PA-C [address] [place], [place] [address] documented as of this encounter Visit Diagnoses Not on filedocumented in this encounter Care Teams Research Recruiter Relationship Specialty Start Date End Date Abdon Villela MD [address] [place] [address] PCP - General FAMILY PRACTICE 12/17/15 [place] [address] Consulting Physician CARDIOVASCULAR DISEASE 07/05/1901/30 Kam[place] [address] Referring Physician Nurse Practitioner Family 10/08/2104/14 Madan Palomo MD [address] [place] [address] EP Vocational Technical Education Teacher CLINICAL CARDIAC ELECTROPHYSIOLOGY 10/08/21 documented as of this encounter
--- OUTSIDE RECORDS SUMMARY | 2024-06-08 06:10 | XMS_ITS | Encounter Summary ---
Author Organization [facility] Address [address] [place] [address]. [place] [address] [place] [address] Care Team Providers Care Pbx Wire Chief Name Role Phone Abdon Villela MD Primary Care Provider Pernell Vance MD Unavailable Unavailabl e Reason for Visit * Reason Onset Date Comments Appointment Reminder 01/23/2020 Encounter Details Date Type Department Care Team ([facility] st Contact Info) Description 01/23/2020 Telephone [employer] CARDIOVASCULAR [employer] AT PHI [address] [place] [address] Luciana Lombardo, TAYE, CAR WASH SUPERVISOR-C [address] [facility] [address] [place] [address] Appointment Reminder Social History Tobacco Use Types [...] have Coronavirus / COVID-19? No / Unsure 01/02/2020 10:20 AM CDT documented as of this encounter Progress Notes * Luciana Lombardo APRN, EILEEN - 01/23/2020 11:55 AM CDT Left message for Avila. Former [place] patient. He is due for his annual follow up. We will schedule him in [place] on 03/01/20 at 10:30am. He v/u. documented in this encounter Plan of Treatment Upcoming Encounters Date Type Department Care Team (Latest Contact Info) Description 06/09/2024 2:20 PM PLATFORM MATERIAL HANDLING SUPERVISOR Telemedicine [facility] Medical Group Multispecialty [facility] [address] [place] [address] Earnest Drake MD [address] [place] [address] 06/21/2024 1:30 AM PLATFORM MATERIAL HANDLING SUPERVISOR Allied Health/Nurse Visit [facility] [address] [place] [address] Madan Palomo MD [address] [place], [place] [address] 03/01/2025 11:00 AM CDT Allied Health/Nurse Visit [facility] [place] [place] [address] Norma Rowland PA-C [address] [place] [address] 03/01/2025 11:00 AM CDT Office Visit [facility] [address] [place] [place] [address] Norma Rowland PA-C [address] [place], [place] [address] documented as of this encounter Visit Diagnoses Not on filedocumented in this encounter Care Teams Pbx Wire Chief Relationship Specialty Start Date End Date Abdon Villela MD [address] [place] [address] PCP - General FAMILY PRACTICE 12/17/15 Pernell Vance MD [address] [place] [address] Consulting Physician CARDIOVASCULAR DISEASE 07/05/1901/30 documented as of this encounter
--- OUTSIDE RECORDS SUMMARY | 2024-06-08 06:10 | XMS_ITS | Encounter Summary ---
Author Organization [facility] Address [address] [place] [address]. [place] [address] [place] [address] Care Team Providers Care Christian [employer] Nurse Name Role Phone Abdon Villela MD Primary Care Provider [phone] Pernell Vance MD Unavailable UnavailKamilla Lazaro NP Unavailable Unavailable Madan Palomo MD Unavailable [phone] Encounter Details Date Type Department Care Team (Latest Contact Info) Description 09/16/2022 Travel Social History Tobacco Use Types Packs/Day [...] AM CDT documented as of this encounter Plan of Treatment Upcoming Encounters Date Type Department Care Team (Latest Contact Info) Description 06/09/2024 2:20 PM QA INTERNSHIP Telemedicine [facility] Medical Group Multispecialty [address] [address] Earnest Drake MD [address] [place], [place] [address] 06/21/2024 1:30 AM QA INTERNSHIP Allied Health/Nurse Visit [facility] [address] [place] [address] Madan Palomo MD [address] [place] [address] 03/01/2025 11:00 AM CDT Allied Health/Nurse Visit [facility] [address] [place] [address] [place] [address] Norma Rowland PA-C [address] [place], [place] [address] 03/01/2025 11:00 AM CDT Office Visit [facility] [address] [place] [address] Norma Rowland PA-C [address] [place] [address] documented as of this encounter Visit Diagnoses Not on filedocumented in this encounter Care Teams [employer] Nurse Relationship Specialty Start Date End [place] [address] PCP - General FAMILY PRACTICE 12/17/15 [place] [address] Consulting Physician CARDIOVASCULAR DISEASE 07/05/1901/30 [place] [address] Referring Physician Nurse Practitioner Family 10/08/2104/14 Madan Palomo MD [address] [place] [address] EP Cream Ripener CLINICAL CARDIAC ELECTROPHYSIOLOGY 10/08/21 documented as of this encounter
--- OUTSIDE RECORDS SUMMARY | 2024-06-08 06:10 | XMS_ITS | Encounter Summary ---
Author Organization [facility] Address [address] [place] [address]. [place], [place] [address] [place] [address] Care Team Providers Care Hide Spreader Name Role Phone Abdon Villela MD Primary Care Provider [phone] Pernell Vance MD Unavailable Unavailabl e Encounter Details Date Type Department Care Team (Late st Contact Info) Description 12/06/2019 9:15 AM CDT Allied Health/Nurse Visit [facility] [address] [place] [address] Social History Tobacco Use Types Packs/Day Years [...] Progress Notes * Arias Case RN - 12/06/2019 9:15 AM CDT Images from the original note were not included. PACEMAKER REMOTE INTERROGATION NAME: Avila Fernandez : 1945 CSN: [id number] DATE OF INTERROGATION: 12/06/19 FOLLOW UP E.P PHYSICIAN: Dr Dalton Reyes DEVICE SPECIFICATIONS COMMUNICATIONS PROFESSOR [employer] DEVICE TYPE SINGLE CHAMBER PACEMAKER EST. BATTERY LIFE OR CURRENT VOLTAGE/GITA VOLTAGE 2.5 yrs LEAD IMPEDENCE TRENDS [place] ATRIAL PACING % na RV PACING % 98.7 BIV/LV PACING % COMMENTS ATRIAL ARRHYTHMIA AF BURDEN na LONGEST EPISODE na ORAL ANTICOAGULATION Eliquis/Apixaban COMMENTS VENTRICULAR ARRHYTHMIA HIGH VENTRICULAR RATES/VT 2 COMMENTS ALERTS / NURSE COMMENTS ??? SEE ATTACHED PDF FOR VENDOR PRINTOUTS (PRESENTING, HISTOGRAMS, EGM'S) ??? Normal device function ??? See egm's for HVR's PHYSICIAN COMMENTS (IF ANY) ??? Cosigned by Dalton Reyes MD at 12/12/2019 9:42 AM CDT documented in this encounter Plan of Treatment Upcoming Encounters Date Type Department Care Team (Latest Contact Info) Description 06/09/2024 2:20 PM DISHING MACHINE OPERATOR Telemedicine [facility] Medical Group [facility] [address] [place] [address] Earnest Drake MD [address] [place], [place] [phone] 06/21/2024 1:30 AM DISHING MACHINE OPERATOR [facility] [address] [place] [address] Madan Palomo MD [address] [place] [address] 03/01/2025 11:00 AM CDT Allied Health/Nurse [facility] [place] [address] Norma Rowland PA-C [address] [place], [place] [address] 03/01/2025 11:00 AM CDT Office Visit [facility] [address] [place] [address] Norma Rowland PA-C [address] [place] [address] documented as of this encounter Visit Diagnoses Not on filedocumented in this encounter Care Teams Hide Spreader Relationship Specialty Start Date End Date Abdon Villela MD [address] [place] [address] PCP - General FAMILY PRACTICE 12/17/15 Pernell Vance MD [address] [place] [address] Consulting Physician CARDIOVASCULAR DISEASE 07/05/1901/30 documented as of this encounter
--- OUTSIDE RECORDS SUMMARY | 2024-06-08 06:10 | XMS_ITS | Encounter Summary ---
Author Organization [facility] Address [address] [place] [address]. [place] [address] [place] [address] Care Team Providers Care Chemistry Research Assistant Name Role Phone Abdon Villela MD Primary Care Provider [phone] Pernell Vance MD Unavailable Unavailabl e Reason for Visit * Reason Onset Date Comments Error 07/17/2020 Encounter Details Date Type Department Care Team (Late st Contact Info) Description 07/17/2020 Telephone [facility] [address] [place] [address] Dalton Reyes MD Error Social History Tobacco Use Types Packs/Day Years [...] as of this encounter Progress Notes * Domenica Zhong RN - 07/17/2020 10:04 AM CST error DENT CARE MANAGER RN documented in this encounter Plan of Treatment Upcoming Encounters Date Type Department Care Team (Latest Contact Info) Description 06/09/2024 2:20 PM RESIDENT CARE MANAGER RN Telemedicine [facility] Medical Group [facility]ispecialty [facility] [address] [place] [address] Earnest Drake MD [address] [place], [place] [phone] 06/21/2024 1:30 AM RESIDENT CARE MANAGER RN Allied Health/Nurse Visit [facility] [address] [place] [address] Madan Palomo MD [address] [place], [place] [address] 03/01/2025 11:00 AM CDT Allied Health/Nurse Visit [facility] [place] [address] [place] [address] Norma Rowland PA-C [address] [place], [place] [address] 03/01/2025 11:00 AM CDT Office Visit [facility] [place] [address] [place] [address] Norma Rowland PA-C [address] [place], [place] [address] documented as of this encounter Visit Diagnoses Not on filedocumented in this encounter Care Teams Chemistry Research Assistant Relationship Specialty Start Date End Date Abdon Villela MD [address] [place] [phone] PCP - General FAMILY PRACTICE 12/17/15 [place] [address] Consulting Physician CARDIOVASCULAR DISEASE 07/05/1901/30 documented as of this encounter
--- OUTSIDE RECORDS SUMMARY | 2024-06-08 06:10 | XMS_ITS | Encounter Summary ---
Author Organization [facility] Address [address] [place] [address]. [place] [address] [place] [address] Care Team Providers Care Ammonia Refrigeration Technician Name Role Phone Abdon Villela MD Primary Care Provider [phone] Vik Colvin MD Unavailable Unavailable Encounter Details Date Type Department Care Team (Late st Contact Info) Description 02/14/2019 Orders Only [facility] [address] [place] [address] Shonna Leonardo, RN Social History Tobacco Use Types Packs/Day Years [...] (Latest Contact Info) Description 06/09/2024 2:20 PM CELL STRIPPER FINAL Telemedicine [facility] Medical Group Multispecialty [facility] [address] [place] [address] Earnest Drake MD [address] [place] [address] 06/21/2024 1:30 AM CELL STRIPPER FINAL Allied Health/Nurse Visit [facility] [address] [place] [address] Madan Palomo MD [address] [place] [address] 03/01/2025 11:00 AM CDT Allied Health/Nurse Visit [facility] [place] [address] [place] [address] Norma Rowland PA-C [address] [place], [place] [address] 03/01/2025 11:00 AM CDT Office Visit [facility] [place] [address] [place] [address] Norma Rowland PA-C [address] [place], [place] 4[address]41 documented as of this encounter Visit Diagnoses Not on filedocumented in this encounter Care Teams Ammonia Refrigeration Technician Relationship Specialty Start Date End Date Abdon Villela MD [address] [place] [address] PCP - General FAMILY PRACTICE 12/17/15 [place] [address] [place] Panelboard Operator INTERVENTIONAL CARDIOLOGY 05/20/18 07/04/19 documented as of this encounter
--- OUTSIDE RECORDS SUMMARY | 2024-06-08 06:10 | XMS_ITS | Encounter Summary ---
Author Organization [facility] Address [address] [place] [address]. [place] [address] [place] [address] Care Team Providers Care Inspector And Hand Packager Name Role Phone Abdon Villela MD Primary Care Provider [phone] Pernell Vance MD Unavailable UnavailKamilla Lazaro NP Unavailable Unavailable Madan Palomo MD Unavailable [phone] Encounter Details Date Type Department Care Team (Latest Contact Info) Description 06/04/2022 9:20 AM JAVA SWING DEVELOPER - 06/04/2022 11:59 PM [facility] Hospital Encounter [facility] [address] [place] [address] Madan Palomo MD [address] [place], [place] [address] Discharge Disposition: Home or Self Care (Routine [...] suspected to have Coronavirus/COVID-19? No / Unsure 06/04/2022 9:19 AM JAVA SWING DEVELOPER documented as of this encounter Medications at [...] (Latest Contact Info) Description 06/09/2024 2:20 PM JAVA SWING DEVELOPER Telemedicine [facility] Medical Group Multispecialty [address] [address] Earnest Drake MD [address] [place], [place] [phone] 06/21/2024 1:30 AM JAVA SWING DEVELOPER Allied Health/Nurse Visit [facility] [address] [place] [address] Madan Palomo MD [address] [place] [address] 03/01/2025 11:00 AM CDT Allied Health/Nurse Visit [place] [address] [place] [address] Norma Rowland PA-C [address] [place], [place] [address] 03/01/2025 11:00 AM CDT Office Visit [facility] [place] [address] [place] [address] Norma Rowland PA-C [address] [place], [place] [address] documented as of this encounter Procedures Procedure Name Priority Date/Time Associated Diagnosis Comments ECG 12-LEAD Routine 06/04/2022 9:51 AM JAVA SWING DEVELOPER Chronic atrial fibrillation ([facility]/HCC [facility]/HCC) documented in this encounter Results * ECG 12 lead (HOSPITAL PERFORMED ONLY) (06/04/2022 9:51 AM JAVA SWING DEVELOPER) 06/04/2022 9:51 AM JAVA SWING DEVELOPER Narrative [facility] - 06/04/2022 3:40 PM JAVA SWING DEVELOPER ? [facility] ?[address] [place], [place] ??[address] ? Test Date: ?2022-06-04 Pat Name: ? ANNIE LIZZETTE ?Department: ?? 3 ? Room: ? Gender: ? Male ? Division Leader: ?? : ?1945 ? Requested By: MADAN PALOMO Order Number: [id number] ? Reading MD: ?? Madan Dewey ? Measurements Intervals ?[place] ? Rate: ? 75 ? P: ? WI: ? 0 ?QRS: ?213 QRSD: ? 176 ?T: ?27 QT: ? 448 ? QTc: ?502 ? Interpretive Statements ELECTRONIC VENTRICULAR PACEMAKER ABNORMAL RHYTHM ECG SWING DEVELOPER Procedure Note Madan Palomo MD - 06/04/2022 [facility] [address] [place] [address] Test Date: 2022-06-04 Pat Name: ANNIE FERNANDEZ Department: 3 Room: Gender: Male Division Leader: : 1945 Requested By: MADAN PALOMO Order Number: [id number] Reading MD: Madan Palomo Measurements Intervals [place] Rate: 75 P: WI: 0 QRS: 213 QRSD: 176 T: 27 QT: 448 QTc: 502 Interpretive Statements ELECTRONIC VENTRICULAR PACEMAKER ABNORMAL RHYTHM ECG SWING DEVELOPER us Madan Palomo MD ECG ORDERABLES Final Res ult [facility] documented in this encounter Visit Diagnoses Diagnosis Chronic atrial fibrillation (CMS/HCC HHS/HCC) Atrial fibrillation documented in this encounter Care Teams Inspector And Hand Packager Relationship Specialty Start Date End Date Abdon Villela MD [address] [place] [address] PCP - General FAMILY PRACTICE 12/17/15 [place] [address] Consulting Physician CARDIOVASCULAR DISEASE 07/05/1901/30 Kamilla Oliveira, APPLICATION PROCESSOR [address] [place] [address] Referring Physician Nurse Practitioner Family 10/08/2104/14 Madan Palomo MD [address] [place] [address] EP Band Splitter CLINICAL CARDIAC ELECTROPHYSIOLOGY 10/08/21 documented as of this encounter
--- OUTSIDE RECORDS SUMMARY | 2024-06-08 06:10 | XMS_ITS | Encounter Summary ---
Author Organization [facility] Address [facility]. [place], [place] [address] [place] [address] Care Team Providers Care Heel Slicker Name Role Phone Abdon Mendoza MD Primary Care Provider [phone] Pernell Vance MD Unavailable UnavailKamilla Lazaro NP Unavailable Unavailable Madan Nunez MD Unavailable [phone] Reason for Referral * Imaging (Routine) - Closed Specialty Diagnoses / Procedures Referred By Davin humphries Referred To Contact RADIOLOGY Diagnoses Sinus node dysfunction (CMS/HCC HHS/HCC) Other cardiomyopathies (CMS/HCC HHS/HCC) Other hypertrophic cardiomyopathy (CMS/HCC HHS/HCC) Procedures XA LASER LEAD EXTRACTION Madan Nunez MD [address] [place] [address] Phone: tel: fax: Referral ID Status Reason Start Date Expiration Date Visits Re quested Visits Authorized [id number] Closed 09/02/2022 10/03/2023 1 1 * Imaging (Routine) - Closed Specialty Diagnoses / Procedures Referred By Davin humphries Referred To Contact RADIOLOGY Diagnoses Sinus node dysfunction (CMS/HCC HHS/HCC) Other cardiomyopathies (CMS/HCC HHS/HCC) Procedures XA BIV PACER Madan Nunez MD [address] [place] [address] Phone: tel: fax: Referral ID Status Reason Start Date Expiration Date Visits Re quested Visits Authorized [id number] Closed 09/02/2022 10/03/2023 1 1 Reason for Visit * Reason Onset Date Comments Schedule Procedure 06/12/2022 MDT BiV PPM Encounter Details Date Type Department Care Team (Late st Contact Info) Description 06/12/2022 Telephone [facility] [address] [place] [address] Madan Nunez MD [address] [place] [address] Schedule Procedure (MDT BiV PPM) Social History Tobacco Use Types Packs/Day Years [...] Coronavirus/COVID-19? No / Unsure 06/04/2022 9:19 AM BRASS POURER documented as of this encounter Progress Notes * Oscar Cardona RN - 09/03/2022 9:49 AM CDT Patient called back. Informed him of procedure on 09/18/22. Patient stated that will not work. He prefers a Thursday, Thursday or Thursday. He also prefers to be discharged the same day as he has no help with a speedboat driver. Informed the patient if he expects same day discharge he will need a speedboat driver as it is hospital policy when receiving anesthesia. This nurse is able to change his procedure date to 09/16/22 with a check in time of 5:30 am, but the hospital policy remains that he will need a speedboat driver home. Patient stated he will try to figure that out and agreed to 09/16 date. This nurse will mail procedure packet with details, instructions, lab orders and a map. Patient verbalized understanding. * Oscar Cardona RN - 09/03/2022 8:51 AM CDT Called patient again. No answer. Left message to call back. * Oscar Cardona RN - 09/02/2022 3:55 PM CDTAddended by: OSCAR CARDONA on: 09/02/2022 03:55 PM Modules accepted: Orders * Oscar Cardona RN - 09/02/2022 3:14 PM CDT Called patient back to discuss procedure details. No answer. Left message to call back. * Olivia Neri - 09/01/2022 4:17 PM CDT VOICEMAIL RECEIVED 09/01/22 @ 2:27pm: Myron, this is MARYAM Bonds 43.?? I'm calling in reference to an appt I was supposed to be scheduled for replacement of a device.?? I'm supposed to have it changed.?? I last had an appt with you on 05/31/22 of last year and doctor said about the end of August but no one has called me to let me know when the date is.?? I'm pretty much able to be around the phone most of the time but I haven't heard anything.?? I'm hard of hearing and will need someone to speak a little louder when they get a hold of me.? My phone number is [phone]. Thank you! * Oscar Cardona RN - 06/12/2022 1:13 PM CST Called patient to discuss device upgrade scheduled on 06/24/22. Patient declined. He wants to hold off until August/September due to the weather. He has to drive himself from [place] and doesn't want to do so in inclimate weather. This nurse will reschedule patient to a later date per his request andcontact him in late July/early August. Patient verbalized understanding. S POURER documented in this encounter Plan of Treatment Upcoming Encounters Date Type Department Care Team (Latest Contact Info) Description 06/09/2024 2:20 PM BRASS POURER Telemedicine [facility] Medical Group Multispecialty [facility] [address] [place] [address] Earnest Drake MD [address] [place], [place] [phone] 06/21/2024 1:30 AM BRASS POURER Allied Health/Nurse Visit [facility] [address] [place] [address] Madan Nunez MD [address] [place] [address] 03/01/2025 11:00 AM CDT Allied Health/Nurse Visit [facility] [place] [address] Norma Rowland PA-C [address] [place], [place] [address] 03/01/2025 11:00 AM CDT Office Visit [facility] [address] [place] [address] Norma Rowland PA-C [address] [place] [address] Pending Results Name Type Priority Associated Diagnoses [...] (CMS/HCC HHS/HCC) Other hypertrophic cardiomyopathy (CMS/HCC HHS/HCC) Expected: 09/18/2022, Expires: 09/03/2023 documented as of this encounter Results * XA BIV PACER (09/16/2022 10:15 AM CDT) Anatomical Region Laterality Modality Cardiac Package Drier Narrative 09/16/2022 10:12 AM CDT Madan Nunez MD ? 09/16/2022 10:22 AM Cardiac Electrophysiology Procedure Note Patient name: Avila Fernandez : 1945 ABDON MENDOZA MD LOS: 0 days DATE OF PROCEDURE: 09/16/2022 CARBIDE OPERATOR: MADAN NUNEZ MD Procedure: Upgrade of dual-chamber [...] Model and Serial No: Medtronic Percepta Quad LEAD SHIPPER-P [id number] ?? [id number] RV Lead Model and Serial No: Medtronic 4092 58cm ??[id number] implanted:05/04/2013 LV Lead Model and Serial No: Medtronic [id number] 88cm ??[id number] RA Lead Model and Serial No: Medtronic 4592 53cm ??[id number] implanted:05/04/2013 Baseline Interrogation: Battery Voltage/Status: 3.05v. RV [...] Sensitivity: N/A. Specimens Removed: REMOVED DEVICE: Medtronic Macho LUCIA [id number] ??[id number] implanted:05/04/2013 Estimated Blood Loss: 10 cc Complications: None. Summary: Successful ??upgrade of dual-chamber pacemaker to biventricular pacemaker with addition of coronary sinus lead Recommendations: 1. CXR PA & Lat now followed by device interrogation. 2. Wound check and follow up instructions will be provided to patient. 3. ??Restart apixaban on 09/19/2022 Madan Nunez M.D. 09/16/2022 us Madan Nunez MD BALL WORKER Final Res ult * (ABNORMAL) COMPREHENSIVE METABOLIC PANEL (09/09/2022) SODIUM S/P/B 139 134 - 144 POTASSIUM S/P/B 4.8 3.5 - 5.2 CO2 26 20 - 29 CHLORIDE S/P/B 99 96 - 106 GLUCOSE 285(A) 70 - 99 mg/dL CALCIUM S/P/B 10.1 8.6 - 10.2 BUN 21 8 - 27 CREATININE S/P/B 0.84 0.76 - 1.27 EGFR NON-AFR. AMER. 89 <=90 ALKALINE PHOSPHATASE S/P/B 84 44 - 121 ALT 19 0 - 44 AST 21 0 - 40 BILIRUBIN TOTAL S/P/B 0.6 0.0 - 1.2 ALBUMIN S/P/B 4.3 3.7 - 4.7 TOTAL PROTEIN S/P/B 6.7 6.0. - 8.5 09/09/2022 Madan Nunez MD LABORATORY Final Res ult * (ABNORMAL) CBC W/DIFF AUTOMATED (09/09/2022) WBC 10.1 3.4 - 10.8 RBC 4.70 4.14 - 5.80 HGB 13.0 13.0 - 17.7 HCT 40.9 37.5 - 51.0 MCV 87 79 - 97 MCH 27.7 26.6 - 33.0 MCHC 31.8 31.5 - 35.7 RDW 13.8 11.6 - 15.4 PLT 219 150 - 450 NEUTROPHILS % 76 LYMPHOCYTES % 16 MONOCYTES % 5 EOSINOPHILS % 2 BASOPHILS % 1 ABS. NEUTROPHILS 7.7(A) 1.4 - 7.0 ABS. LYMPHOCYTES 1.6 0.7 - 3.1 ABS. MONOCYTES 0.5 0.1 - 0.9 ABS. BASOPHILS 0.1 0.0 - 0.2 09/09/2022 Madan Nunez MD LABORATORY Final Res ult documented in this encounter Visit Diagnoses Diagnosis Sinus node dysfunction (CMS/HCC HHS/HCC)- Primary Sinoatrial node dysfunction Other cardiomyopathies (CMS/HCC HHS/HCC) 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 Pre-op testing Preoperative examination, unspecified Sinus node dysfunction (CMS/HCC HHS/HCC) Sinoatrial node dysfunction Other cardiomyopathies (CMS/HCC HHS/HCC) 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 documented in this encounter Care Teams Heel Slicker Relationship Specialty Start Date End Date Abdon Mendoza MD [address] [place] [address] PCP - General FAMILY PRACTICE 12/17/15 Pernell Vance MD [address] [place] [address] Consulting Physician CARDIOVASCULAR DISEASE 07/05/1901/30 Kamilla Oliveira SPEED OPERATOR [address] [place] [address] Referring Physician Nurse Practitioner [facility] 10/08/2104/14 Madan Nunez MD [address] [place] [address] EP Business Editor CLINICAL CARDIAC ELECTROPHYSIOLOGY 10/08/21 documented as of this encounter
--- OUTSIDE RECORDS SUMMARY | 2024-06-08 06:10 | XMS_ITS | Encounter Summary ---
Author Organization [facility] Address [address] [place] [address]. [place] [address] [place] [address] Care Team Providers Care Laboratory Chief Name Role Phone Abdon Villela MD Primary Care Provider [phone] Pernell Vance MD Unavailable Unavailabl e Reason for Visit * Reason Onset Date Comments Pre-visit Gap Closure 01/17/2021 Encounter Details Date Type Department Care Team (Late st Contact Info) Description 01/17/2021 Telephone [facility] [address] [place] [address] Xander Heck RN Pre-visit Gap Closure Social History Tobacco Use Types Packs/Day Years [...] (Latest Contact Info) Description 06/09/2024 2:20 PM DELIVERY TRUCK DRIVER Telemedicine [facility] [address] [address] Earnest Drake MD [address] [place] [address] 06/21/2024 1:30 AM DELIVERY TRUCK DRIVER Allied Health/Nurse Visit [facility] [address] [place] [address] Madan Palomo MD [address] [place] [address] 03/01/2025 11:00 AM CDT Allied Health/Nurse Visit [facility] [place] [address] [place] [address] Norma Rowland PA-C [address] [place], [place] [address] 03/01/2025 11:00 AM CDT Office Visit [facility] [place] [address] [place] [address] Norma Rowland PA-C [address] [place], [place] [address] documented as of this encounter Visit Diagnoses Not on filedocumented in this encounter Care Teams Laboratory Chief Relationship Specialty Start Date End [place] [address] PCP - General FAMILY PRACTICE 12/17/15 [place] [address] Consulting Physician CARDIOVASCULAR DISEASE 07/05/1901/30 documented as of this encounter
--- OUTSIDE RECORDS SUMMARY | 2024-06-08 06:10 | XMS_ITS | Encounter Summary ---
Author Organization [facility] Address [address] [place] [address]. [place], [place] [address] [place] [address] Care Team Providers Care Vamp Creaser Name Role Phone Abdon Villela MD Primary Care Provider Pernell Vance MD Unavailable Unavailabl e Encounter Details Date Type Department Care Team (Late st Contact Info) Description 03/23/2020 1:45 PM CDT Allied Health/Nurse Visit [facility] [address] [place] [address] Social History Tobacco Use Types [...] Progress Notes * Ofelia Dominguez LPN - 03/23/2020 1:45 PM CDT Images from the original note were not included. 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 BATTERY LIFE OR CURRENT VOLTAGE/GITA VOLTAGE 4.5y LEAD IMPEDENCE TRENDS [place] ATRIAL PACING % na. RV PACING % 99.2 BIV/LV PACING % na COMMENTS ATRIAL ARRHYTHMIA AF BURDEN na % LONGEST EPISODE na ORAL ANTICOAGULATION Eliquis/Apixaban and ASA COMMENTS VENTRICULAR ARRHYTHMIA HIGH VENTRICULAR RATES/VT 0 COMMENTS ALERTS / NURSE COMMENTS ??? SEE ATTACHED PDF FOR VENDOR PRINTOUTS (PRESENTING, HISTOGRAMS, EGM'S) ??? Norm dev func. PHYSICIAN COMMENTS (IF ANY) ??? Cosigned by Dalton Reyes MD at 04/02/2020 7:26 AM CDT documented in this encounter Plan of Treatment Upcoming Encounters Date Type Department Care Team (Latest Contact Info) Description 06/09/2024 2:20 PM PARK MANAGER Telemedicine [facility] Medical [facility] [address] [place] [address] Earnest Drake MD [address] [place], [place] [phone] 06/21/2024 1:30 AM PARK MANAGER Allied Health/Nurse Visit [facility] [address] [place] [address] Madan Palomo MD [address] [place] [address] 03/01/2025 11:00 AM CDT Allied Health/Nurse Visit [facility] [place] [address] Norma Rowland PA-C [address] [place] [address] 03/01/2025 11:00 AM CDT [facility] [address] [place] [address] Norma Rowland PA-C [address] [place] [address] documented as of this encounter Visit Diagnoses Not on filedocumented in this encounter Care Teams Vamp Creaser Relationship Specialty Start Date End Date Abdon Villela MD [address] [place] [address] PCP - General FAMILY PRACTICE 12/17/15 Pernell Vance MD [address] [place] [address] Consulting Physician CARDIOVASCULAR DISEASE 07/05/1901/30 documented as of this encounter
--- OUTSIDE RECORDS SUMMARY | 2024-06-08 06:10 | XMS_ITS | Encounter Summary ---
Author Organization [facility] Address [address] [place] [address]. [place] [address] [place] [address] Care Team Providers Care Process Plant Operator Name Role Phone Abdon Villela MD Primary Care Provider [phone] Vik Colvin MD Unavailable Unavailable Encounter Details Date Type Department Care Team (Late st Contact Info) Description 04/01/2019 Orders Only [facility] [address] [place] [address] Shonna Leonardo, RN Social History Tobacco Use [...] (Latest Contact Info) Description 06/09/2024 2:20 PM COPY LATHE TENDER Telemedicine [facility] Mult[facility]pec[facility] [address] [place] [address] Earnest Drake MD [address] [place] [address] 06/21/2024 1:30 AM COPY LATHE TENDER Allied Health/Nurse Visit [facility] [address] [place] [address] Madan Palomo MD [address] [place] [address] 03/01/2025 11:00 AM CDT Allied Health/Nurse Visit [facility] [place] [address] [place] [address] Norma Rowland PA-C [address] [place], [place] [address] 03/01/2025 11:00 AM CDT Office Visit [facility] [address] [place] [address] Norma Rowland PA-C [address] [place], [place] [address] documented as of this encounter Visit Diagnoses Not on filedocumented in this encounter Care Teams Process Plant Operator Relationship Specialty Start Date End Date Abdon Villela MD [address] [place] [address] PCP - General FAMILY PRACTICE 12/17/15 [place] [address] [place] Die Technician INTERVENTIONAL CARDIOLOGY 05/20/18 07/04/19 documented as of this encounter
--- OUTSIDE RECORDS SUMMARY | 2024-06-08 06:10 | XMS_ITS | Encounter Summary ---
Author Organization [facility] Address [address] [place] [address]. [place] [address] [place] [address] Care Team Providers Care Curber Name Role Phone Abdon Villela MD Primary Care Provider [phone] Pernell Vance MD Unavailable UnavailKamilla Lazaro NP Unavailable Unavailable Madan Palomo MD Unavailable [phone] Encounter Details Date Type Department Care Team (Latest Contact Info) Description 10/01/2022 Travel Social History Tobacco Use Types Packs/Day [...] suspected to have Coronavirus/COVID-19? No / Unsure 10/01/2022 11:41 AM CDT documented as of this encounter Plan of Treatment Upcoming Encounters Date Type Department Care Team (Latest Contact Info) Description 06/09/2024 2:20 PM CUSTOM STUDIO COORDINATOR Telemedicine [facility] Medical Group Multispecialty [address] [phone] Earnest Drake MD [address] [place], [place] [address] 06/21/2024 1:30 AM CUSTOM STUDIO COORDINATOR Allied Health/Nurse Visit [facility] [address] [place] [address] Madan Palomo MD [address] [place] [address] 03/01/2025 11:00 AM CDT Allied Health/Nurse Visit [facility] [address] [place] [address] Norma Rowland PA-C [address] [place], [place] [address] 03/01/2025 11:00 AM CDT Office Visit [facility] [address] [place] [address] Norma Rowland PA-C [address] [place] [address] documented as of this encounter Visit Diagnoses Not on filedocumented in this encounter Care Teams Curber Relationship Specialty Start Date End [place] [address] PCP - General FAMILY PRACTICE 12/17/15 [place] [address] Consulting Physician CARDIOVASCULAR DISEASE 07/05/1901/30 [place] [address] Referring Physician Nurse Practitioner Family 10/08/2104/14 Madan Palomo MD [address] [place] [address] EP Gi Tech CLINICAL CARDIAC ELECTROPHYSIOLOGY 10/08/21 documented as of this encounter
--- OUTSIDE RECORDS SUMMARY | 2024-06-08 06:10 | XMS_ITS | Encounter Summary ---
Author Organization [facility] Address [facility]ly [facility] [place] [address] [place] [address] Care Team Providers Care Logistics Officer Name Role Phone Abdon Villela MD Primary Care Provider [phone] Pernell Vance MD Unavailable UnavailKamilla Lazaro NP Unavailable Unavailable Madan Palomo MD Unavailable [phone] Encounter Details Date Type Department Care Team (Late st Contact Info) Description 11/22/2021 10:00 AM CDT Allied Health/Nurse Visit [facility] [address] [place] [address] Dalton Reyes MD Rajagopalan, Bharath, MD [address] [place], [place] [address] Social History Tobacco Use Types Packs/Day Years [...] Progress Notes * Ofelia Dominguez LPN - 11/22/2021 10:00 AM CDT Images from the original note were not included. PACEMAKER REMOTE INTERROGATION NAME: Avila Fernandez : 1945 CSN: [id number] DATE OF INTERROGATION: 11/22/2021 FOLLOW UP E.P PHYSICIAN: Dr Madan Palomo DEVICE SPECIFICATIONS DERRICK FOLLOWER [employer] DEVICE TYPE SINGLE CHAMBER PACEMAKER EST. BATTERY LIFE OR CURRENT VOLTAGE/GITA VOLTAGE 33m LEAD IMPEDENCE TRENDS [place] ATRIAL PACING % Na-VVIR RV PACING % 99.4 BIV/LV PACING % na COMMENTS ATRIAL ARRHYTHMIA AF BURDEN na % LONGEST EPISODE na ORAL ANTICOAGULATION Eliquis/Apixaban and ASA COMMENTS VENTRICULAR ARRHYTHMIA HIGH VENTRICULAR RATES/VT 2 COMMENTS No new episodes ALERTS / NURSE COMMENTS ??? SEE ATTACHED PDF FOR VENDOR PRINTOUTS (PRESENTING, HISTOGRAMS, EGM'S) ??? Normal Device Function PHYSICIAN COMMENTS (IF ANY) Cosigned by Madan Palomo MD at 12/16/2021 7:55 AM CDT documented in this encounter Plan of Treatment Upcoming Encounters Date Type Department Care Team (Latest Contact Info) Description 06/09/2024 2:20 PM OFFSET PRESSMAN Telemedicine [facility] Medical [facility] [address] [place] [phone] Earnest Drake MD [address] [place] [address] 06/21/2024 1:30 AM OFFSET PRESSMAN Allied Health/Nurse Visit [facility] [address] [place] [phone] Madan Palomo MD [address] [place] [address] 03/01/2025 11:00 AM CDT Allied Health/Nurse Visit [facility] [address] [place] [address] Norma Rowland PA-C [address] [place] [address] 03/01/2025 11:00 AM CDT Office Visit [facility] [place] [address] [place] [address] Norma Rowland PA-C [address] [place], [place] [address] documented as of this encounter Visit Diagnoses Diagnosis AVB (atrioventricular block) Atrioventricular block, unspecified documented in this encounter Care Teams Logistics Officer Relationship Specialty Start Date End Date Abdon Villela MD [address] [place] [address] PCP - General FAMILY PRACTICE 12/17/15 Pernell Vance MD [address] [place] [address] Consulting Physician CARDIOVASCULAR DISEASE 07/05/1901/30 Kamilla Oliveira NP [address] [place] [address] Referring Physician Nurse Practitioner Family 10/08/2104/14 Madan Palomo MD [address] [place] [address] EP Windows Administrator CLINICAL CARDIAC ELECTROPHYSIOLOGY 10/08/21 documented as of this encounter
--- OUTSIDE RECORDS SUMMARY | 2024-06-08 06:10 | XMS_ITS | Encounter Summary ---
Author Organization [facility] Address [address] [place] [address]. [place], [place] [address] [place] [address] Care Team Providers Care E Commerce Developer Name Role Phone Abdon Villela MD Primary Care Provider [phone] Pernell Vance MD Unavailable Unavailabl e Encounter Details Date Type Department Care Team (Late st Contact Info) Description 07/17/2020 3:30 PM SHOE SALESPERSON Allied Health/Nurse Visit [facility] [address] [place] [address] Dalton Reyes MD Social History [...] Progress Notes * Ofelia Dominguez LPN - 07/17/2020 3:30 PM CST Images from the original note were not included. 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 BATTERY LIFE OR CURRENT VOLTAGE/GITA VOLTAGE 4y LEAD IMPEDENCE TRENDS [place] ATRIAL PACING % na RV PACING % 99 BIV/LV PACING % na COMMENTS ATRIAL ARRHYTHMIA AF BURDEN na % LONGEST EPISODE na ORAL ANTICOAGULATION Eliquis/Apixaban and ASA COMMENTS VENTRICULAR ARRHYTHMIA HIGH VENTRICULAR RATES/VT 0 COMMENTS ALERTS / NURSE COMMENTS ??? SEE ATTACHED PDF FOR VENDOR PRINTOUTS (PRESENTING, HISTOGRAMS, EGM'S) ??? Norm dev func. PHYSICIAN COMMENTS (IF ANY) ??? Cosigned by Dalton Reyes MD at 08/03/2020 12:33 PM SHOE SALESPERSON SALESPERSON SALESPERSON documented in this encounter Plan of Treatment Upcoming Encounters Date Type Department Care Team (Latest Contact Info) Description 06/09/2024 2:20 PM SHOE SALESPERSON Telemedicine [facility] Medical Group Mult[facility]pec[facility]ty [facility] [address] [place] [address] Earnest Drake MD [address] [place], [place] [phone] 06/21/2024 1:30 AM SHOE SALESPERSON Allied [facility] [address] [place] [address] Madan Palomo MD [address] [place] [address] 03/01/2025 11:00 AM CDT Allied Health/Nurse Visit [facility] [place] [address] Norma Rowland PA-C [address] [place], [place] [address] 03/01/2025 11:00 AM CDT [facility] [address] [place] [address] Norma Rowland PA-C [address] [place] [address] documented as of this encounter Visit Diagnoses Not on filedocumented in this encounter Care Teams E Commerce Developer Relationship Specialty Start Date End Date Abdon Villela MD [address] [place] [address] PCP - General FAMILY PRACTICE 12/17/15 Pernell Vance MD [address] [place] [address] Consulting Physician CARDIOVASCULAR DISEASE 07/05/1901/30 documented as of this encounter
--- OUTSIDE RECORDS SUMMARY | 2024-06-08 06:10 | XMS_ITS | Encounter Summary ---
Author Organization [facility] Address [address] [place] [address]. [place] [address] [place] [address] Care Team Providers Care Printing Machine Operator Name Role Phone Abdon Villela MD Primary Care Provider [phone] Pernell Vance MD Unavailable Unavailabl e Encounter Details Date Type Department Care Team (Late st Contact Info) Description 12/05/2019 Orders Only [facility] [address] [place] [address] Dalton Reyes MD Social History [...] (Latest Contact Info) Description 06/09/2024 2:20 PM PRESCHOOL TEACHER Telemedicine [facility] Medical Group Multispecialty [facility] [address] [place] [address] Earnest Drake MD [address] [place] [address] 06/21/2024 1:30 AM PRESCHOOL TEACHER Allied Health/Nurse Visit [facility] el[facility] [address] [place] [address] Madan Palomo MD [address] [place] [address] 03/01/2025 11:00 AM CDT Allied Health/Nurse Visit [facility] [place] [place] [address] [place] [address] Norma Rowland PA-C [address] [place], [place] [address] 03/01/2025 11:00 AM CDT Office Visit [place] [address] [place] [phone] Norma Rowland PA-C [address] [place], [place] [address] Scheduled Orders Name Type Priority Associated Diagnoses Orde r Schedule ELECTROCARDIOGRAM EKG-NonRad Routine Paroxysmal atrial fibrillation ([facility]) Chronic anticoagulation Ordered: 12/05/2019 documented as of this encounter Visit Diagnoses Diagnosis Paroxysmal atrial fibrillation ([facility])- Primary Atrial fibrillation Chronic anticoagulation Encounter for long-term (current) use of anticoagulants documented in this encounter Care Teams Printing Machine Operator Relationship Specialty Start Date End Date Abdon Villela MD [address] [place] [address] PCP - General FAMILY PRACTICE 12/17/15 Pernell Vance MD [address] [place] [address] Consulting Physician CARDIOVASCULAR DISEASE 07/05/1901/30 documented as of this encounter
--- OUTSIDE RECORDS SUMMARY | 2024-06-08 06:10 | XMS_ITS | Encounter Summary ---
Author Organization [facility] Address [address] [place] [address]. [place] [address] [place] [address] Care Team Providers Care Wirer Name Role Phone Abdon Villela MD Primary Care Provider [phone] Vik Colvin MD Unavailable Unavailable Reason for Visit * Reason Comments Follow Up Encounter Details Date Type Department Care Team (Late st Contact Info) Description 10/05/2018 9:30 AM CDT Office Visit [facility] [address] [place] [address] Aubrey Kamara MD Follow Up Social History Tobacco Use [...] Sign Reading Time Taken Comments Blood Pressure 140/84 10/05/2018 9:24 AM CDT Pulse 89 10/05/2018 9:24 AM CDT Temperature - - Respiratory Rate 16 10/05/2018 9:24 AM CDT Oxygen Saturation - - Inhaled Oxygen Concentration - - Weight 123.1 kg (271 lb 6.4 oz) 10/05/2018 9:24 AM CDT Height 180.3 cm (5' 11 ) 10/05/2018 9:24 AM CDT Body Mass Index 37.85 10/05/2018 9:24 AM CDT documented in this encounter Patient Instructions * Patient Instructions* Jerman Madera, RN - 10/05/2018 9:30 AM CDT Images from the original note were not included. Patient Education Patient Education Atrial Fibrillation The Basics Written by the doctors and editors at [facility] What is atrial fibrillation???--??Atrial fibrillation is the most common heart rhythm problem (figure 1). The condition puts you at risk of stroke, heart attack, and other problems. Another term for atrial fibrillation is A-fib. In people with A-fib, the electrical signals that control the heartbeat are abnormal. The top 2 chambers of the heart stop pumping blood as strongly as normal. When this happens, the blood can start to form clots. These clots can travel to the brain through the blood vessels, and cause strokes. In some people, A-fib never goes away. In others, A-fib can come and go, even with treatment. If you had A-fib in the past, but have a normal heart rhythm now, ask your doctor what you can do to keepA-fib from coming back. Some people can reduce their chances of having A-fib again by: ?? Controlling their blood pressure ?? Not drinking a lot of alcohol in 1 sitting (limit to 1 to 2 drinks in 1 day) ?? Cutting down on caffeine ?? Getting treatment for an overactive thyroid gland ?? Getting regular exercise ?? Losing weight (if they are overweight) ?? Reducing stress What are the symptoms of atrial fibrillation???--??Some people with A-fib have no symptoms. When symptoms do occur, they can include: ?? Feeling as though your heart is racing, skipping beats, or beating out of sync ?? Mild chest tightness or pain ?? Feeling lightheaded, dizzy, or like you might pass out ?? Having trouble breathing, especially with exercise Is there a test for atrial fibrillation???--??Yes. If your doctor or nurse suspects you have A-fib,he or she will probably do a test called an electrocardiogram. This test, also known as an ECG, measures the electrical activity in your heart. How is atrial fibrillation treated???--??In some cases, A-fib goes away on its own, even without treatment. But many people do need treatment. Treatment can include 1 or more of these: ?? Medicines to control the speed or rhythm of the heartbeat ?? Medicines to keep clots from forming ?? A treatment called cardioversion that involves applying a mild electrical current to the heartto fix its rhythm ?? Treatments called ablation, which use heat ( radiofrequency ablation ) or cold ( cryoablation ) to destroy the small part of the heart that is sending abnormal electrical signals ?? A device called a pacemaker that is implanted in your body and sends electrical signals to the heart to control the heartbeat What will my life be like???--??Most people with A-fib are able to live normal lives. Still, it is important that you take the medicines your doctor prescribes every day. Taking your medicines as directed can help reduce the chances that your A-fib will cause a stroke. It's also a good idea to learn what the signs and symptoms of a stroke are (figure 2). All topics are updated as new evidence becomes available and our peer review process is complete. This topic retrieved from [employer] on: Jun 29, 2018. Topic 89287 Version 13.0 Release: 26.5.5 - C27.6 ?2019??[employer]. and/or its affiliates.??All rights reserved. figure 1: Atrial fibrillation This drawing shows where the heart is located in the chest. In atrial fibrillation, the electrical signals that control the heartbeat are abnormal. As a result, the top two chambers of the heart (seearrows) stop pumping effectively, and blood that should move out of these chambers gets left behind. Graphic 15943 Version 3.0 figure 2: Signs of stroke The letters in the word fast help you remember the signs of stroke. If a person shows any of these signs, call an ambulance right away. In the [place] and [place], dial ??9-1-1. ?? Graphic 85905 Version 3.0 Consumer Information Use and Disclaimer This information is not specific medical advice and does not replace information you receive from your health care provider. This is only a brief summary of general information. It does NOT include all information about conditions, illnesses, injuries, tests, procedures, treatments, therapies, discharge instructions or life-style choices that may apply to you. You must talk with your health care provider for complete information about your health and treatment options. This information should not be used to decide whether or not to accept your health care provider's advice, instructions or recommendations. Only your health care provider has the knowledge and training to provide advice that is right for you.The use of [employer] content is governed by the [employer] Terms of Use. ??2019 [employer]. All rights reserved. Copyright ?2019??[employer]. and/or its affiliates.??All rights reserved. documented in this encounter Progress Notes * Aubrey Kamara MD - 10/05/2018 9:30 AM CDT Reason for Visit: Follow Up History of Present Illness: Mr. Fernandez is a very pleasant 73-year-old man with a history of diabetes mellitus, hypertension, coronary artery disease, long-standing persistent atrial fibrillation, and high-grade AV block who underwent implantation of a dual- chamber pacemaker on May 04, 2013. He presents today for annual follow-up. He reports he has been doing fairly well. He has no device related complaints. He has no sensation of his abnormal rhythm. He denies any palpitations, dizziness, lightheadedness, syncope, or presyncope. He does report shortness of breath and reports this is been slowly worsening as well as fatigue. He denies any lower extremity edema. He is on Eliquis 5 mg twice daily for stroke risk red uction is tolerating this without abnormal bleeding or bruising noted. His implantation site remains free of erythema or tenderness. He underwent a stress test in April 2016 which showed an ejection fraction of 60%. Interrogation of his device today reveals a dual-chamber Medtronic pacemaker. Battery longevity is estimated 8 years. Pacing thresholds, sensing, lead impedance are all within normal limits. His underlying rhythm is complete heart block. He is in VVIR mode. He is ventricular paced 99%. Recommendations and Plan: Device follow-up: All the device parameters are within normal limits and the battery voltage is well above the elective replacement indicator. Iterative reprogramming was used to evaluate capture threshold, and the output reflects the measured threshold. Sensing and lead impedance are within appropriate limits. Annie Fernandez is performing remote monitoring of the device and this will continueon a quarterly basis. We discussed issues related to the device that may be of concern including tenderness or sensitivity of the device implant site, sharp sensations or other experiences the patient may note related to the healing of the device capsule, and infection or bleeding risk at this point related to the device. We discussed activity restrictions as appropriate and situations to be aware of moving forward to avoid damage to or unintended function of the device. I will arrange follow-up in 1 year. We had a long discussion about oral anticoagulation and its role in reducing the risk of stroke dueto atrial fibrillation. We discussed warfarin and its mechanism of action. We discussed the limitations, risks and benefits of vitamin K antagonist anticoagulation. We discussed the complexity of theinteraction between diet and vitamin K antagonists and need for monitoring of warfarin effect usingthe pro time, or INR. We discussed novel oral anticoagulant agents such as the factor Xa inhibitorsand the direct thrombin inhibitor. We discussed the difference in these agents as well as the dosing regimen. We discussed the risks and benefits of anticoagulation as they relate to the novel oral an ticoagulant family, as well as the major clinical trials that resulted in the FDA approval of theseagents. We discussed the relative risk of stroke as well as the risks of bleeding related to these anticoagulant agents. We discussed the additive nature of aspirin and other platelet inhibiting medications with the anticoagulant effect of these medications. After this discussion, we agreed the patient would continue Eliquis. The patient and I had a lengthy discussion about the risks and benefits of various management strategies for persistent atrial fibrillation. We discussed common symptoms associated with atrial fibrillation as well as the pathophysiology. We discussed the role of cardioversion in restoring sinus rhyt hm, as well as the possible outcomes of cardioversion including immediate return of atrial fibrillation, early return of atrial fibrillation and the possibility that sinus rhythm would persist. We discussed the possible need for medication to enable sinus rhythm to persist as well as the possibility that sinus rhythm would cause symptoms more or less than atrial fibrillation. We discussed pulmonary vein triggers and strategies of management including both rate and rhythm control strategies. We discussed antiarrhythmic medications such as flecainide, propafenone, dofetilide, and amiodarone. Wediscussed the indications, risks and benefits of these medications and how the effects and side effects of these medications factor into decisions regarding antiarrhythmic medication choices. We discussed the importance of stroke risk reduction in atrial fibrillation as well as the mechanism of stroke most often considered important. We discussed the role of the left atrial appendage and options for stroke risk reduction including warfarin, novel oral anticoagulants, and left atrial appendage closure or ligation. We also discussed rhythm control versus rate control strategies and the effects and side effects of rate control medications. We discussed beta-blockers, calcium channel blockers, and digoxin. We discussed the risk of heart failure related to atrial fibrillation, and possible need for pacemaker in some patients. We discussed the role of AV node ablation in managing some patients at particularly high risk or with limiting symptoms. Moving forward, we will plan to continue to explore means to reduce the symptoms and risks related to atrial fibrillation. Medications: Current Outpatient Medications: ??? aspirin (ALEXIS LOW DOSE) 81 MG Tab EC, Take 1 tablet by mouth daily., Disp: , Rfl: ??? ATORVASTATIN 80 MG tablet, TAKE 1 TABLET (80 MG TOTAL) BY MOUTH DAILY., Disp: 90 tablet, Rfl: 2 ??? BYDUREON 2 MG Pen-injector PEN, , Disp: , Rfl: ??? CARVEDILOL 12.5 MG tablet, TAKE ONE TABLET BY MOUTH TWICE DAILY, Disp: 180 tablet, Rfl: 2 ??? ELIQUIS 5 MG tablet, TAKE 1 TABLET BY MOUTH TWICE DAILY, Disp: 60 tablet, Rfl: 11 ??? glipiZIDE 10 MG tablet, Take 1 tablet by mouth 2 (two) times daily., Disp: , Rfl: ??? hydrochlorothiazide 25 MG tablet, Take 1 tablet (25 mg total) by mouth daily., Disp: 90 tablet,Rfl: 3 ??? lisinopril 40 MG tablet, Take 1 tablet (40 mg total) by mouth daily., Disp: 90 tablet, Rfl: 3 ??? metFORMIN 1000 MG tablet, Take 1 tablet by mouth 2 (two) times daily., Disp: , Rfl: ??? nitroGLYCERIN 0.4 MG SL tablet, Take 1 tablet by mouth every 5 (five) minutes as needed., Disp: , Rfl: ??? polyethylene glycol powder, , Disp: , Rfl: No Known Allergies Past [...] Last attempt to quit: 10/07/1995 Years since quittin.0 ??? Smokeless tobacco: Never Used Substance Use Topics ??? Alcohol use: No ??? Drug use: No Family History Problem Relation Name Age of Onset ??? Heart Attack Mother Family Status Relation Name Status ??? Mother ??? Father ??? Brother Alive Review of Systems Constitutional: Negative for recent unintentional weight gain, recent unintentional weight loss andnew or significant fatigue. HENT: Negative for new or significant hearing loss. Eyes: Negative for blurred vision and double vision. Respiratory: Negative for cough, new or significant shortness of breath and snoring. Cardiovascular: See HPI Gastrointestinal: Negative for blood in stool and melena. Genitourinary: Negative for dysuria. Musculoskeletal: Negative for myalgias and new or worsening joint stiffness/pain. Skin: Negative for rash. Neurological: Negative for tingling/numbness and focal weakness. Endo/Heme/Allergies: Negative for new or significant bruising/bleeding and polydipsia. Psychiatric/Behavioral: Negative for depression and new or significant memory loss. Filed Vitals: 10/05/18 0924 BP: 140/84 Pulse: 89 Resp: 16 Weight: 123.1 kg (271 lb 6.4 oz) Height: 5' 11 (1.803 m) Body mass index is 37.85 kg/m??. Physical Exam Rate/Rhythm: regular rhythm and normal rate . Heart Sounds: normal heart sounds, normal S1 and normal S2 no gallop, no S3 sound, no S4 sound and no murmur. . PMI: PMI not displaced. Pulses: normal pulses Right Carotid pulses 2+, Left Carotid pulses 2+, Right Femoral pulses 2+, Left Femoral pulses 2+, Right DP pulses 2+, Left DP pulses 2+, negative for edema Constitutional: healthy appearance not distressed. . Neck: neck supple no JVD. . Pulmonary/Chest Wall: effort normal and breath sounds normal . HEENT: teeth/gums normal and oropharynx clear and moist. . Abdomen: no tenderness, no mass, no hepatomegaly, no splenomegaly, abdominal aorta not palpably enlarged and no abdominal aortic bruit. . Eyes: conjunctivae normal. Neurological: alert, oriented x 3 and appropriate for situation, . Skin: dry and warm no cyanosis and no clubbing. Musculoskeletal: no kyphosis Cardiovascular Comments: Diagnoses/Impression: 1. Paroxysmal atrial fibrillation (CMS/HCC) ELECTROCARDIOGRAM (NON MIDMARK ACQUIRED) PINNACLE Documentation Completed: Atrial Fibrillation Coronary Artery Disease Referring Provider: Abdon Villela PCP: ABDON VILLELA MD documented in this encounter Plan of Treatment Upcoming Encounters Date Type Department Care Team (Latest Contact Info) Description 06/09/2024 2:20 PM KEY ACCOUNT EXECUTIVE Telemedicine [facility] Multispecialty [facility] [address] [place] [address] Earnest Drake MD [address] [place] [address] 06/21/2024 1:30 AM KEY ACCOUNT EXECUTIVE Allied Health/Nurse Visit [facility] [address] [place] [address] Madan Palomo MD [address] [place], [place] [address] 03/01/2025 11:00 AM CDT Allied Health/Nurse Visit [facility] [place] [address] [place] [address] Norma Rowland PA-C [address] [place] [address] 03/01/2025 11:00 AM CDT Office Visit [facility] [place] [phone] Norma Rowland PA-C [address] [place] [address] documented as of this encounter Procedures Procedure Name Priority Date/Time Associated Diagnosis Comments ELECTROCARDIOGRAM (NON MIDMARK ACQUIRED) Routine 10/05/2018 9:29 AM CDT Paroxysmal atrial fibrillation (CMS/HCC HHS/HCC) documented in this encounter Results * ELECTROCARDIOGRAM (10/05/2018 9:29 AM CDT) 10/05/2018 9:29 AM CDT Narrative [facility] - 10/05/2018 12:25 PM CDT ? [facility] [address] [place], [place] ??[address] ? Test Date: ?2018-10-05 Pat Name: ? ANNIE FERNANDEZ ?Department: ? Room: ? Gender: ? Male ? Show Design Supervisor: ?? Morg : ?1945 ? Requested By: AUBREY KAMARA Order Number: [id number] ?Reading : ?? Aubrey Kamara ? Measurements Intervals ?[place] ? Rate: ? 89 ? P: ? UT: ? 0 ?QRS: ?-76 QRSD: ? 186 ?T: ?99 QT: ? 411 ? QTc: ?501 ? Interpretive Statements atrial fibrillation ELECTRONIC VENTRICULAR PACEMAKER ABNORMAL RHYTHM ECG Procedure Note Aubrey Kamara MD - 10/05/2018 [facility], [place] [address] [place] [address] Test Date: 2018-10-05 Pat Name: ANNIE FERNANDEZ Department: Room: Gender: Male Show Design Supervisor: Sandra : 1945 Requested By: AUBREY KAMARA Order Number: [id number] Rhiannon MD: Aubrey Kamara Measurements Intervals [place] Rate: 89 P: UT: 0 QRS: -76 QRSD: 186 T: 99 QT: 411 QTc: 501 Interpretive Statements atrial fibrillation ELECTRONIC VENTRICULAR PACEMAKER ABNORMAL RHYTHM ECG us Aubrey Kamara MD PROCEDURES-ORDERABLE NO SUPA RGE Final Result [facility] [address] [place] [address] documented in this encounter Visit Diagnoses Diagnosis Paroxysmal atrial fibrillation (CMS/HCC HHS/HCC)- Primary Atrial fibrillation documented in this encounter Care Teams Wirer Relationship Specialty Start Date End Date Abdon Villela MD [address] [place] [address] PCP - General FAMILY PRACTICE 12/17/15 Vik Colvin MD [address] [place] [address] [place] Clinical Veterinarian INTERVENTIONAL CARDIOLOGY 05/20/18 07/04/19 documented as of this encounter
--- OUTSIDE RECORDS SUMMARY | 2024-06-08 06:10 | XMS_ITS | Encounter Summary ---
Author Organization [facility] Address [address] [place] [address]. [place] [address] [place] [address] Care Team Providers Care Medicare Interviewer Name Role Phone Abdon Villela MD Primary Care Provider [phone] Vik Colvin MD Unavailable Unavailable Reason for Visit * Reason Onset Date Comments Other 05/20/2018 Care reassignmen t Encounter Details Date Type Department Care Team (Late st Contact Info) Description 05/20/2018 Telephone [employer] [facility] [address] [place] [address] Clifford Boss MD Other (Care reassignment ) Social History Tobacco Use Types Packs/Day Years [...] as of this encounter Progress Notes * Sherri Nicholson - 05/20/2018 2:[address] Boss patient reassigned to Dr. Vik Colvin . Recall has been updated, patient is due in April 2019 ACT ASSEMBLER documented in this encounter Plan of Treatment Upcoming Encounters Date Type Department Care Team (Latest Contact Info) Description 06/09/2024 2:20 PM CONTACT ASSEMBLER Telemedicine [facility] Medical [facility] Multispec[facility] [address] [place] [address] Earnest Drake MD [address] [place], [place] [phone] 06/21/2024 1:30 AM CONTACT ASSEMBLER [facility] [address] [place] [address] Madan Palomo MD [address] [place] [address] 03/01/2025 11:00 AM CDT Allied Health/Nurse Visit [facility] [place] [address] [place] [address] Norma Rowland PA-C [address] [place], [place] [address] 03/01/2025 11:00 AM CDT Office Visit [facility] [place] [address] [place] [address] Norma Rowland PA-C [address] [place], [place] [phone] documented as of this encounter Visit Diagnoses Not on filedocumented in this encounter Care Teams Medicare Interviewer Relationship Specialty Start Date End Date [place] [address] PCP - General FAMILY PRACTICE 12/17/15 [place] [address] [place] Head Inspector [employer] Marker INTERVENTIONAL CARDIOLOGY 05/20/18 07/04/19 documented as of this encounter
--- OUTSIDE RECORDS SUMMARY | 2024-06-08 06:10 | XMS_ITS | Encounter Summary ---
Author Organization [facility] Address [address] [place] [address]. [place] [address] [place] [address] Care Team Providers Care Lcsw Name Role Phone Abdon Villela MD Primary Care Provider [phone] Pernell Vance MD Unavailable UnavailKamilla Lazaro NP Unavailable Unavailable Madan Palomo MD Unavailable [phone] Encounter Details Date Type Department Care Team (Latest Contact Info) Description 06/04/2022 Travel Social History Tobacco Use Types Packs/Day [...] Coronavirus/COVID-19? No / Unsure 06/04/2022 9:19 AM ELECTRICAL CONTROLS DESIGNER documented as of this encounter Plan of Treatment Upcoming Encounters Date Type Department Care Team (Latest Contact Info) Description 06/09/2024 2:20 PM ELECTRICAL CONTROLS DESIGNER Telemedicine [facility] Medical Group Multispecialty [address] [phone] Earnest Drake MD [address] [place], [place] [phone] 06/21/2024 1:30 AM ELECTRICAL CONTROLS DESIGNER Allied Health/Nurse Visit [facility] [address] [place] [address] Madan Palomo MD [address] [place] [address] 03/01/2025 11:00 AM CDT Allied Health/Nurse Visit [facility] [place] [address] [place] [address] Norma Rowland PA-C [address] [place], [place] [address] 03/01/2025 11:00 AM CDT Office Visit [facility] [place] [address] [place] [address] Norma Rowland PA-C [address] [place] [id number] documented as of this encounter Visit Diagnoses Not on filedocumented in this encounter Care Teams Lcsw Relationship Specialty Start Date End [place] [address] PCP - General FAMILY PRACTICE 12/17/15 [place] [address] Consulting Physician CARDIOVASCULAR DISEASE 07/05/1901/30 [place] [address] Referring Physician Nurse Practitioner Family 10/08/2104/14 Madan Palomo MD [address] [place] [address] EP D[employer]ified Crops Farmer CLINICAL CARDIAC ELECTROPHYSIOLOGY 10/08/21 documented as of this encounter
--- OUTSIDE RECORDS SUMMARY | 2024-06-08 06:10 | XMS_ITS | Encounter Summary ---
Author Organization [facility] Address [facility] [place] [place] [address] [place] [address] Care Team Providers Care Sql Manager Name Role Phone Abdon Villela MD Primary Care Provider [phone] Pernell Vance MD Unavailable UnavailKamilla Lazaro NP Unavailable Unavailable Madan Palomo MD Unavailable [phone] Encounter Details Date Type Department Care Team (Late st Contact Info) Description 09/16/2022 Prep for Procedure [facility] [address] [place] [address] Madan Palomo MD [address] [place] [address] Social History Tobacco Use Types Packs/Day Years [...] (Latest Contact Info) Description 06/09/2024 2:20 PM BEER COIL CLEANER Telemedicine [facility] Medical Group Multispec[facility]ty [facility] [address] [place] [address] Earnest Drake MD [address] [place] [address] 06/21/2024 1:30 AM BEER COIL CLEANER Allied Health/Nurse Visit [facility] [address] [place] [address] Madan Palomo MD [address] [place] [address] 03/01/2025 11:00 AM CDT Allied Health/Nurse Visit [facility] [place] [address] [place] [address] Norma Rowland PA-C [address] [place], [place] [address] 03/01/2025 11:00 AM CDT Office Visit [facility] [place] [address] [address] Norma Rowland PA-C [address] [place] [address] [phone] documented as of this encounter Visit Diagnoses Not on filedocumented in this encounter Care Teams Sql Manager Relationship Specialty Start Date End Date Abdon Villela MD [address] [place] [address] PCP - General FAMILY PRACTICE 12/17/15 Pernell Vance MD [address] [place] [address] Consulting Physician CARDIOVASCULAR DISEASE 07/05/1901/30 Kamilla Oliveira NP [address] [place] [address] Referring Physician Nurse Practitioner Family 10/08/2104/14 Madan Palomo MD [address] [place] [address] EP Slate Trimmer CLINICAL CARDIAC ELECTROPHYSIOLOGY 10/08/21 documented as of this encounter
--- OUTSIDE RECORDS SUMMARY | 2024-06-08 06:10 | XMS_ITS | Encounter Summary ---
Author Organization [facility] Address [facility] [address] [place] [address] Care Team Providers Care Wire Twister Name Role Phone Abdon Villela MD Primary Care Provider [phone] Pernell Vance MD Unavailable UnavailKamilla Lazaro NP Unavailable Unavailable Madan Palomo MD Unavailable [phone] Encounter Details Date Type Department Care Team (Late st Contact Info) Description 06/03/2022 Orders Only [facility] [address] [place] [address] Madan Palomo MD [address] [place] [address] Social History Tobacco Use Types Packs/Day Years [...] Coronavirus/COVID-19? No / Unsure 05/27/2022 9:09 AM SENIOR ELECTRICAL DESIGN ENGINEER documented as of this encounter Plan of Treatment Upcoming Encounters Date Type Department Care Team (Latest Contact Info) Description 06/09/2024 2:20 PM SENIOR ELECTRICAL DESIGN ENGINEER Telemedicine [facility] Medical Group Multispecialty [place] [facility] [address] [place] [address] Earnest Drake MD [address] [place], [place] [phone] 06/21/2024 1:30 AM SENIOR ELECTRICAL DESIGN ENGINEER Allied Health/Nurse Visit [facility] [address] [place] [address] Madan Palomo MD [address] [place] [address] 03/01/2025 11:00 AM CDT Allied Health/Nurse Visit [facility] [place] [address] [place] [address] Norma Rowland PA-C [address] [place] [address] 03/01/2025 11:00 AM CDT Office Visit [facility] [place] [address] [place] [address] Norma Rowland PA-C [address] [place] [address] documented as of this encounter Results * ECG 12 lead (HOSPITAL PERFORMED ONLY) (06/04/2022 9:51 AM SENIOR ELECTRICAL DESIGN ENGINEER) 06/04/2022 9:51 AM SENIOR ELECTRICAL DESIGN ENGINEER Narrative [facility] - 06/04/2022 3:40 PM SENIOR ELECTRICAL DESIGN ENGINEER ? [facility] ?[address] [place], [place] ??[address] ? Test Date: ?2022-06-04 Pat Name: ? ANNIE FERNANDEZ ?Department: ?? 3 ? Room: ? Gender: ? Male ? Die Cutting Machine Operator: ?? : ?1945 ? Requested By: MADAN PALOMO Order Number: [id number] ? Reading MD: ?? Madan Reyagopalan ? Measurements Intervals ?Talpa ? Rate: ? 75 ? P: ? HI: ? 0 ?QRS: ?213 QRSD: ? 176 ?T: ?27 QT: ? 448 ? QTc: ?502 ? Interpretive Statements ELECTRONIC VENTRICULAR PACEMAKER ABNORMAL RHYTHM ECG OR ELECTRICAL DESIGN ENGINEER Procedure Note Madan Palomo MD - 06/04/2022 [facility] [address] [place] [address] Test Date: 2022-06-04 Pat Name: ANNIE DE JESUSCHER Department: 3 Room: Gender: Male Die Cutting Machine Operator: : 1945 Requested By: MADAN PALOMO Order Number: [id number] Reading MD: Madan Palomo Measurements Intervals Talpa Rate: 75 P: HI: 0 QRS: 213 QRSD: 176 T: 27 QT: 448 QTc: 502 Interpretive Statements ELECTRONIC VENTRICULAR PACEMAKER ABNORMAL RHYTHM ECG OR ELECTRICAL DESIGN ENGINEER us Madan Palomo MD ECG ORDERABLES Final Res ult [facility] documented in this encounter Visit Diagnoses Diagnosis Chronic atrial fibrillation (CMS/HCC HHS/HCC)- Primary Atrial fibrillation Chronic atrial fibrillation (CMS/HCC HHS/HCC) Atrial fibrillation documented in this encounter Care Teams Wire Twister Relationship Specialty Start Date End Date [place] [address] PCP - General FAMILY PRACTICE 12/17/15 [place] [address] Consulting Physician CARDIOVASCULAR DISEASE 07/05/1901/30 Kamilla Oliveira NP [address] [place] [address] Referring Physician Nurse Practitioner Family 10/08/2104/14 Madan Palomo MD [address] [place], [place] [address] EP Radio Tester CLINICAL CARDIAC ELECTROPHYSIOLOGY 10/08/21 documented as of this encounter
--- OUTSIDE RECORDS SUMMARY | 2024-06-08 06:10 | XMS_ITS | Encounter Summary ---
Author Organization [facility] Address [address] [place] [address]. [place] [address] [place] [address] Care Team Providers Care Paving Stone Installer Name Role Phone Abdon Villela MD Primary Care Provider [phone] Pernell Vance MD Unavailable Unavailabl e Reason for Visit * Reason Comments Follow Up Encounter Details Date Type Department Care Team (Late st Contact Info) Description 01/02/2020 10:30 AM CDT Office Visit [facility] [address] [place] [address] Kamilla Oliveira NP Follow Up Social History [...] Sign Reading Time Taken Comments Blood Pressure 142/80 01/02/2020 10:59 AM CDT Pulse 84 01/02/2020 10:59 AM CDT Temperature - - Respiratory Rate 20 01/02/2020 10:59 AM CDT Oxygen Saturation - - Inhaled Oxygen Concentration - - Weight 122.9 kg (271 lb) 01/02/2020 10:59 AM CDT Height 180.3 cm (5' 11 ) 01/02/2020 10:59 AM CDT Body Mass Index 37.8 01/02/2020 10:59 AM CDT documented in this encounter Progress Notes * Kamilla Oliveira NP - 01/02/2020 10:30 AM CDT Reason for Visit: Follow Up History of Present Illness: Mr. Fernandez is a very pleasant 74-year-old man with a history of diabetes mellitus, [...] dual-chamber Medtronic pacemaker. Battery longevity is estimated 4.5 years. Pacing thresholds, sensing, lead impedance are all within normal limits. His underlying rhythm is complete heart block. He is in VVIR mode. He is ventricular paced 98.7%. There are 2 episodes of nonsustained ventricular tachycardia. ?? EKG today reveals atrial fibrillation with ventricular pacing at 84 bpm. Recommendations and Plan: 1. Device follow-up: His battery remains well above the elective replacement indicator and the device is functioning within normal operational limits. No programming changes were made to his device today. . ?? 2. Long-standing persistent atrial fibrillation: He [...] Outpatient Medications: ??? amLODIPine 2.5 MG tablet, , Disp: , Rfl: ??? aspirin (ALEXIS LOW DOSE) 81 MG Tab EC, Take 1 tablet by mouth daily., Disp: , Rfl: ??? ATORVASTATIN 80 MG tablet, TAKE 1 TABLET BY MOUTH DAILY, Disp: 90 tablet, Rfl: 0 ??? BYDUREON 2 MG Pen-injector PEN, , Disp: , Rfl: ??? CARVEDILOL 12.5 MG tablet, TAKE 1 [...] daily., Disp: 90 tablet, Rfl: 0 ??? metFORMIN 1000 MG tablet, Take 1 [...] Last attempt to quit: 10/07/1995 Years since quittin.2 ??? Smokeless tobacco: Never Used Substance Use [...] and new or significant memory loss. Vitals: 01/02/20 1059 BP: 142/80 Patient Position: Sitting BP Location: Right arm Pulse: 84 Weight: 122.9 kg (271 lb) Height: 5' 11 (1.803 m) Body mass index is 37.8 kg/m??. Physical Exam Rate/Rhythm: regular rhythm and normal rate . Heart Sounds: normal heart sounds, normal S1 and normal S2 no gallop, no S3 sound, no S4 sound and no murmur. . PMI: PMI not displaced. Pulses: normal pulses negative for edema Constitutional: healthy appearance not distressed. . Neck: normal range of motion, neck supple and thyroid normal no JVD. . Pulmonary/Chest Wall: effort normal and breath sounds normal . HEENT: teeth/gums normal and oropharynx clear and moist. . Abdomen: abdomen soft and bowel sounds normal No tenderness. no mass. no hepatomegaly. No splenomegaly. Abdominal aorta not palpably enlarged. No abdominal aortic bruit. . Eyes: pupils equal, round, and reactive to light and conjunctivae normal. Neurological: alert, oriented x 3, appropriate for situation, intact cranial nerves and normal motor skillsnormal gait, . Skin: dry and warm no cyanosis and no clubbing. Musculoskeletal: no kyphosis normal ROM Cardiovascular Comments: Diagnoses/Impression: 1. Encounter for interrogation of cardiac pacemaker 2. Longstanding persistent atrial fibrillation (CMS/HCC) 3. Current use of ad terminal makeup operator anticoagulation [place] Documentation Completed: Atrial Fibrillation Referring Provider: Abdon Villela PCP: ABDON VILLELA MD documented in this encounter Plan of Treatment Upcoming Encounters Date Type Department Care Team (Latest Contact Info) Description 06/09/2024 2:20 PM ROOM SERVICE WAITER/WAITRESS Telemedicine [facility] Medical Group Multispecial[facility] [address] [place] [address] Earnest Drake MD [address] [place], [place] [phone] 06/21/2024 1:30 AM ROOM SERVICE WAITER/WAITRESS Allied Health/Nurse Visit [facility] [address] [place] [address] Madan Palomo MD [address] [place] [address] 03/01/2025 11:00 AM CDT Allied Health/Nurse Visit [place] [address] [place] [address] Norma Rowland PA-C [address] [place] [address] 03/01/2025 11:00 AM CDT Office Visit [facility] [place] [address] [place] [address] Norma Rowland PA-C [address] [place] [address] documented as of this encounter Visit Diagnoses Diagnosis Encounter for interrogation of cardiac pacemaker- Primary Fitting and adjustment of cardiac pacemaker Longstanding persistent atrial fibrillation (CMS/HCC H[facility]) Current use of ad terminal makeup operator anticoagulation Encounter for long-term (current) use of anticoagulants documented in this encounter Care Teams Paving Stone Installer Relationship Specialty Start Date End Date Abdon Villela MD [address] [place] [address] PCP - General FAMILY PRACTICE 12/17/15 Pernell Vance MD [address] [place] [address] Consulting Physician CARDIOVASCULAR DISEASE 07/05/1901/30 documented as of this encounter
--- OUTSIDE RECORDS SUMMARY | 2024-06-08 06:10 | XMS_ITS | Encounter Summary ---
Author Organization [facility] Address [address] [place] [address]. [place] [address] [place] [address] Care Team Providers Care Element Setter Name Role Phone Abdon Villela MD Primary Care Provider [phone] Vik Colvin MD Unavailable Unavailable Encounter Details Date Type Department Care Team (Late st Contact Info) Description 02/14/2019 Orders Only [facility] [address] [place] [address] Shonna Leonardo, RN Social History Tobacco Use [...] (Latest Contact Info) Description 06/09/2024 2:20 PM [employer] Telemedicine [facility] Medical Group Mult[facility]pec[facility] [address] [place] [address] Earnest Drake MD [address] [place] [address] 06/21/2024 1:30 AM [employer] Allied Health/Nurse Visit [facility] [address] [place] [address] Madan Palomo MD [address] [place] [address] 03/01/2025 11:00 AM CDT Allied Health/Nurse Visit [facility] [place] [address] [place] [address] Norma Rowland PA-C [address] [place], [place] [address] 03/01/2025 11:00 AM CDT Office Visit [facility] [place] [address] [place] [address] Norma Rowland PA-C [address] [place], [place] [address] documented as of this encounter Visit Diagnoses Not on filedocumented in this encounter Care Teams Element Setter Relationship Specialty Start Date End Date Abdon Villela MD [address] [place] [address] PCP - General FAMILY PRACTICE 12/17/15 Vik [place] [address] [place] Sole Seamer INTERVENTIONAL CARDIOLOGY 05/20/18 07/04/19 documented as of this encounter
--- OUTSIDE RECORDS SUMMARY | 2024-06-08 06:10 | XMS_ITS | Encounter Summary ---
Author Organization [facility] Address [address] [place] [address]. [place] [address] [place] [address] Care Team Providers Care Fiberglass Roving Winder Name Role Phone Abdon Villela MD Primary Care Provider [phone] Pernell Vance MD Unavailable UnavailKamilla Lazaro NP Unavailable Unavailable Madan Palomo MD Unavailable [phone] Reason for Visit * Reason Onset Date Comments Problem 01/13/2023 NSVT Encounter Details Date Type Department Care Team (Late st Contact Info) Description 01/13/2023 Telephone [facility] [address] [place] [address] Madan Palomo MD [address] [place] [address] Problem (NSVT) Social History Tobacco Use Types Packs/Day Years [...] as of this encounter Progress Notes * Wayne Cornelius LPN - 01/13/2023 2:38 PM CDT 12/31/22 office note: 3. Nonsustained ventricular tachycardia: His device interrogation revealed brief episodes of nonsustained ventricular tachycardia. Last echocardiogram showed LVEF of 35 to 40%. Continue carvedilol. If he has any longer episodes of ventricular arrhythmias on device interrogation in future, he wouldbenefit from repeat echocardiogram to assess for any change in LV systolic function.' We will continue to monitor for longer episodes. * Kalani Soni RN - 01/13/2023 7:16 AM CDT Images from the original note were not included. Remote transmission shows 2 NSVT events on 01/12/23 @ 2241, longest is 9 seconds Transmission scanned into media documented in this encounter Plan of Treatment Upcoming Encounters Date Type Department Care Team (Latest Contact Info) Description 06/09/2024 2:20 PM BENCH CHEMIST Telemedicine [facility] Medical Group Mult[facility]ty [facility] [address] [place] [address] Earnest Drake MD [address] [place] [address] 06/21/2024 1:30 AM BENCH CHEMIST Allied Health/Nurse Visit [facility] [address] [place] [address] Madan Palomo MD [address] [place] [address] 03/01/2025 11:00 AM CDT Allied Health/Nurse Visit [facility] [place] [address] Norma Rowland PA-C [address] [place] [address] 03/01/2025 11:00 AM CDT [facility] [address] [place] [address] Norma Rowland PA-C [address] [place] [address] documented as of this encounter Visit Diagnoses Not on filedocumented in this encounter Care Teams Fiberglass Roving Winder Relationship Specialty Start Date End Date Abdon Villela MD [address] [place] [address] PCP - General FAMILY PRACTICE 12/17/15 Pernell Vance MD [address] [place] [address] Consulting Physician CARDIOVASCULAR DISEASE 07/05/1901/30 Kamilla Oliveira NP [address] [place] [address] Referring Physician Nurse Practitioner Family 10/08/2104/14 Madan Palomo MD [address] [place] [address] EP Mechanical Field Engineer CLINICAL CARDIAC ELECTROPHYSIOLOGY 10/08/21 documented as of this encounter
--- OUTSIDE RECORDS SUMMARY | 2024-06-08 06:10 | XMS_ITS | Encounter Summary ---
Author Organization [facility] Address [facility] [place] [address] [place] [address] Care Team Providers Care Order Caller Name Role Phone Abdon Villela MD Primary Care Provider [phone] Pernell Vance MD Unavailable UnavailKamilla Lazaro NP Unavailable Unavailable Madan Palomo MD Unavailable [phone] Reason for Referral * Imaging (Routine) - Closed Specialty Diagnoses / Procedures Referred By Contac t Referred To Contact RADIOLOGY Diagnoses Ventricular tachyarrhythmia ([facility]) Abnormal electrocardiogram (ECG) (EKG) Procedures USE ECHOCARDIOGRAM Madan Palomo MD [address] [place] [address] Phone: tel: fax: Referral ID Status Reason Start Date Expiration Date Visits Re quested Visits Authorized [id number] Closed 03/26/2022 04/26/2023 1 1 Reason for Visit * Reason Onset Date Comments Schedule Test 03/26/2022 Echocardiogram Encounter Details Date Type Department Care Team (Late st Contact Info) Description 03/26/2022 Telephone [facility] [facility] [address] [place] [address] Madan Palomo MD [address], [place] [address] Schedule Test (Echocardiogram) Social History Tobacco Use Types Packs/Day Years [...] as of this encounter Progress Notes * Kwesi Lorenzo RN - 04/03/2022 1:11 PM CDT Called patient to schedule echo. Echo scheduled on 05/26/22 at 1:00 pm at [facility]. Also reminded the patient of his appointment with Dr. Rey on 06/04/22 at 10:00 am at [facility]. Appointment letters printed andmailed. The patient says he got a letter about his next remote device check on 09/05/22 and the letter says it is to be in office. I reviewed this with the device clinic and this is a remote home monitoring check. Patient does not need to come to the office for this. Patient v/u and had no further questions. Staff message with reminder for results set to be sent to Dr. Rey's nurse pool on 05/28/22. documented in this encounter Plan of Treatment Upcoming Encounters Date Type Department Care Team (Latest Contact Info) Description 06/09/2024 2:20 PM CLINICAL APPEALS AUDITOR Telemedicine [facility] Medical Group Multispecialty [facility] [address] [place] [address] Earnest Drake MD [address] [place] [address] 06/21/2024 1:30 AM CLINICAL APPEALS AUDITOR Allied Health/Nurse Visit [facility] [address] [place] [address] Madan Palomo MD [address] [place] [address] 03/01/2025 11:00 AM CDT Allied Health/Nurse Visit [facility] [place] [address] [place] [address] Norma Rowland PA-C [address] [place] [address] 03/01/2025 11:00 AM CDT Office Visit [place] [address] [place] [address] Norma Rowland PA-C [address] [place] [address] documented as of this encounter Results * USE ECHOCARDIOGRAM (05/27/2022 11:06 AM CLINICAL APPEALS AUDITOR) Anatomical Region Laterality Modality Cardiac Ultrasound Madan Palomo MD ECHO Final Res ult documented in this encounter Visit Diagnoses Diagnosis NSVT (nonsustained ventricular tachycardia) ([facility]/HCC HHS/HCC)- Primary Paroxysmal ventricular tachycardia Nonsustained paroxysmal ventricular tachycardia ([facility]/HCC HHS/HCC) Ventricular tachyarrhythmia ([facility]/HCC HHS/HCC) Paroxysmal ventricular tachycardia Abnormal electrocardiogram (ECG) (EKG) documented in this encounter Care Teams Order Caller Relationship Specialty Start Date End [place] [address] PCP - General FAMILY PRACTICE 12/17/15 [place] [address] Consulting Physician CARDIOVASCULAR DISEASE 07/05/1901/30 Kamilla Oliveira NP [address] [place] [address] Referring Physician Nurse Practitioner Family 10/08/2104/14 Madan Palomo MD [address] [place], [place] [address] EP First Aid Nurse CLINICAL CARDIAC ELECTROPHYSIOLOGY 10/08/21 documented as of this encounter
--- OUTSIDE RECORDS SUMMARY | 2024-06-08 06:10 | XMS_ITS | Encounter Summary ---
Author Organization [facility] Address [facility] [place] [address] [place] [address] Care Team Providers Care Boning Room Worker Name Role Phone Abdon Villela MD Primary Care Provider [phone] Pernell Vance MD Unavailable Unavailabl e Kamilla Oliveira NP Unavailable Unavailable Madan Palomo MD Unavailable [phone] Norma Rowland PA-C Unavailable [phone] Encounter Details Date Type Department Care Team (Late st Contact Info) Description 09/11/2022 Hospital Orders Only [facility] Pre[facility]Post [address] [place], [place] [address] Madan Palomo MD [address] [place], [place] [address] Social History Tobacco Use Types Packs/Day Years [...] (Latest Contact Info) Description 06/09/2024 2:20 PM MACHINED PARTS QUALITY INSPECTOR Telemedicine [facility] Medical Group Multispecialty [facility] [address] [place] [address] Earnest Drake MD [address] [place], [place] [address] 06/21/2024 1:30 AM MACHINED PARTS QUALITY INSPECTOR Allied Health/Nurse Visit [facility] [address] [place] [address] Madan Palomo MD [address] [place] [address] 03/01/2025 11:00 AM CDT Allied Health/Nurse Visit [facility] [place] [address] [place] [address] Norma Rowland PA-C [address] [place] [address] 03/01/2025 11:00 AM CDT Office Visit [facility] [address] [place] [address] Norma Rowland PA-C [address] [place], [place] [address] documented as of this encounter Visit Diagnoses Not on filedocumented in this encounter Additional Health Concerns Infection Onset Date Last Indicated Resolved Time COVID-19 Rule Out 07/27/2023 07/27/2023 07/27/2023 10:47 AM MACHINED PARTS QUALITY INSPECTOR COVID-19 Rule Out 05/16/2024 05/16/2024 05/16/2024 12:28 PM MACHINED PARTS QUALITY INSPECTOR ESBL - Extended Spectrum Beta-lactamase 06/01/2024 06/03/2024 COVID-19 Rule Out 06/03/2024 06/03/2024 06/04/2024 5:43 PM MACHINED PARTS QUALITY INSPECTOR Parainfluenza 06/03/2024 06/03/2024 documented as of this encounter Care Teams Boning Room Worker Relationship Specialty Start Date End Date Abdon Villela MD [address] [place] [address] PCP - General FAMILY PRACTICE 12/17/15 Pernell Vance MD [address] [place] [address] Consulting Physician CARDIOVASCULAR DISEASE 07/05/1901/30 Kamilla Oliveira NP [facility] [place] [address] Referring Physician Nurse Practitioner [facility] 10/08/2104/14 Madan Palomo MD [address] [place] [address] EP Assistant Plant Controller CLINICAL CARDIAC ELECTROPHYSIOLOGY 10/08/21 Norma Rowland PA-C [address] [place], [place] [address]50[address] Referring Physician PHYSICIAN CREDIT ASSESSMENT ANALYST 12/31/23 documented as of this encounter
--- OUTSIDE RECORDS SUMMARY | 2024-06-08 06:10 | XMS_ITS | Encounter Summary ---
Author Organization [facility] Address [address] [place] [address]. [place] [address] [place] [address] Care Team Providers Care Geographic Information Scientist Name Role Phone Abdon Villela MD Primary Care Provider [phone] Pernell Vance MD Unavailable UnavailKamilla Lazaro NP Unavailable Unavailable Madan Palomo MD Unavailable [phone] Encounter Details Date Type Department Care Team (Latest Contact Info) Description 05/27/2022 Travel Social History Tobacco Use Types Packs/Day [...] Coronavirus/COVID-19? No / Unsure 05/27/2022 9:09 AM RACING MANAGER documented as of this encounter Plan of Treatment Upcoming Encounters Date Type Department Care Team (Latest Contact Info) Description 06/09/2024 2:20 PM RACING MANAGER Telemedicine [facility] Medical Group Multispecialty [address] [phone] Earnest Drake MD [address] [place], [place] [address] 06/21/2024 1:30 AM RACING MANAGER Allied Health/[facility] [address] [place] [address] Madan Palomo MD [address] [place] [address] 03/01/2025 11:00 AM CDT Allied Health/Nurse Visit [facility] [place] [address] [place] [address] Norma Rowland PA-C [address] [place], [place] [address] 03/01/2025 11:00 AM CDT Office Visit [facility] [place] [address] [place] [address] Norma Rowland PA-C [address] [place] [phone] documented as of this encounter Visit Diagnoses Not on filedocumented in this encounter Care Teams Geographic Information Scientist Relationship Specialty Start Date End [place] [address] PCP - General FAMILY PRACTICE 12/17/15 [place] [address] Consulting Physician CARDIOVASCULAR DISEASE 07/05/1901/30 [place] [address] Referring Physician Nurse Practitioner Family 10/08/2104/14 Madan Palomo MD [address] [place] [address] EP Rn Support Services CLINICAL CARDIAC ELECTROPHYSIOLOGY 10/08/21 documented as of this encounter
--- OUTSIDE RECORDS SUMMARY | 2024-06-08 06:10 | XMS_ITS | Encounter Summary ---
Author Organization [facility] Address [address] [place] [address]. [place] [address] [place] [address] Care Team Providers Care Bump Grader Operator Name Role Phone Abdon Villela MD Primary Care Provider [phone] Pernell Vance MD Unavailable UnavailKamilla Lazaro NP Unavailable Unavailable Madan Palomo MD Unavailable [phone] Encounter Details Date Type Department Care Team (Latest Contact Info) Description 12/31/2022 Travel Social History Tobacco Use Types Packs/Day [...] (Latest Contact Info) Description 06/09/2024 2:20 PM TRACTOR CRANE OPERATOR Telemedicine [facility] Medical Group Multispecialty [facility] [address] [place] [address] Earnest Drake MD [address] [place] [address] 06/21/2024 1:30 AM TRACTOR CRANE OPERATOR Allied Health/Nurse Visit [facility] eld [address] [place] [address] Madan Palomo MD [address] [place] [address] 03/01/2025 11:00 AM CDT Allied Health/Nurse Visit [facility] [address] [address] [place] [address] Norma Rowland PA-C [address] [place], [place] [address] 03/01/2025 11:00 AM CDT Office Visit [facility] [address] [address] [place] [address] Norma Rowland PA-C [address] [place], [place] [address] documented as of this encounter Visit Diagnoses Not on filedocumented in this encounter Care Teams Bump Grader Operator Relationship Specialty Start Date End [place] [address] PCP - General FAMILY PRACTICE 12/17/15 [place] [address] Consulting Physician CARDIOVASCULAR DISEASE 07/05/1901/30 [place] [address] Referring Physician Nurse Practitioner Family 10/08/2104/14 Madan Palomo MD [address] [place] [address] EP Hand Coremaker CLINICAL CARDIAC ELECTROPHYSIOLOGY 10/08/21 documented as of this encounter
--- OUTSIDE RECORDS SUMMARY | 2024-06-08 06:10 | XMS_ITS | Encounter Summary ---
Author Organization [facility] Address [address] [place] [address]. [place], [place] [phone] [place] [address] Care Team Providers Care Commercial Loan Analyst Name Role Phone Abdon Villela MD Primary Care Provider [phone] Pernell Vance MD Unavailable Unavailabl e Encounter Details Date Type Department Care Team (Late st Contact Info) Description 09/02/2019 4:00 PM CDT Allied Health/Nurse Visit [facility] [address] [place] [address] Social History Tobacco Use Types [...] Progress Notes * Arias Case RN - 09/02/2019 4:00 PM CDT Images from the original note were not included. PACEMAKER REMOTE INTERROGATION NAME: Avila Fernandez : 1945 CSN: [id number] DATE OF INTERROGATION: 09/02/19 FOLLOW UP E.P PHYSICIAN: Dr Dalton Reyes DEVICE SPECIFICATIONS SCRAPE GATHERER [employer] DEVICE TYPE SINGLE CHAMBER PACEMAKER EST. BATTERY LIFE OR CURRENT VOLTAGE/GITA VOLTAGE 5 years LEAD IMPEDENCE TRENDS OK COMMENTS RUFFLING HEMMER AUTOMATIC % 98.5 ATRIAL ARRHYTHMIA AF BURDEN n/a LONGEST EPISODE n/a ORAL ANTICOAGULATION Eliquis/Apixaban COMMENTS VENTRICULAR ARRHYTHMIA HIGH VENTRICULAR RATES/VT 2 COMMENTS SEE ATTACHED PDF FOR AVAILABLE EGM'S ALERTS/COMMENTS ??? NORMAL DEVICE FUNCTION ??? SEE ATTACHED PDF FOR AVAILABLE EGM'S Cosigned by Dalton Reyes MD at 09/05/2019 10:09 AM CDT documented in this encounter Plan of Treatment Upcoming Encounters Date Type Department Care Team (Latest Contact Info) Description 06/09/2024 2:20 PM INFRASTRUCTURE ADMINISTRATOR Telemedicine [facility] Medical Group Multispecialty [facility] [address] [place] [address] Earnest Drake MD [address] [place] [address] 06/21/2024 1:30 AM INFRASTRUCTURE ADMINISTRATOR Allied Health/Nurse Visit [facility] [address] [place] [address] Madan Palomo MD [address] [place] [address] 03/01/2025 11:00 AM CDT Allied Health/Nurse Visit [facility] [place] [place] [address] Norma Rowland PA-C [address] [place] [address] 03/01/2025 11:00 AM CDT Office Visit [facility] [place] [address] Norma Rowland PA-C [address] [place] [address] documented as of this encounter Visit Diagnoses Not on filedocumented in this encounter Care Teams Commercial Loan Analyst Relationship Specialty Start Date End Date Abdon Villela MD [address] [place] [address] PCP - General FAMILY PRACTICE 12/17/15 Pernell Vance MD [address] [place] [address] Consulting Physician CARDIOVASCULAR DISEASE 07/05/1901/30 documented as of this encounter
--- OUTSIDE RECORDS SUMMARY | 2024-06-08 06:10 | XMS_ITS | Encounter Summary ---
Author Organization [facility] Address [address] [place] [address]. [place] [address] [place] [address] Care Team Providers Care Ship Laborer Name Role Phone Abdon Villela MD Primary Care Provider [phone] Pernell aVnce MD Unavailable Unavailabl e Reason for Visit * Reason Onset Date Comments Reschedule 03/23/2020 Encounter Details Date Type Department Care Team (Late st Contact Info) Description 03/23/2020 Telephone [facility] [address] [place] [address] Dalton Reyes MD Reschedule Social History Tobacco Use Types Packs/Day [...] as of this encounter Progress Notes * Hilary Calix - 03/23/2020 10:12 AM CDT Patient called stating he forgot to send in a transmission on 03/22/2020. Patient to send in a transmission today. documented in this encounter Plan of Treatment Upcoming Encounters Date Type Department Care Team (Latest Contact Info) Description 06/09/2024 2:20 PM MASSOTHERAPIST Telemedicine [facility] Medical Group Multispecialty [facility] [address] [place] [address] Earnest Drake MD [address] [place] [address] 06/21/2024 1:30 AM MASSOTHERAPIST [facility] [address] [place] [address] Madan Palomo MD [address] [place] [address] 03/01/2025 11:00 AM CDT Allied Health/Nurse Visit [facility] [place] [address] [place] [address] Norma Rowland PA-C [address] [place] [address] 03/01/2025 11:00 AM CDT Office Visit [facility] [place] [address] [place] [address] Norma Rowland PA-C [address] [place], [place] [address] documented as of this encounter Visit Diagnoses Not on filedocumented in this encounter Care Teams Ship Laborer Relationship Specialty Start Date End Date Abdon Villela MD [address] [place] [address] PCP - General FAMILY PRACTICE 12/17/15 [place] [address] [place] [address] [place] [address] Consulting Physician CARDIOVASCULAR DISEASE 07/05/1901/30 documented as of this encounter
--- OUTSIDE RECORDS SUMMARY | 2024-06-08 06:10 | XMS_ITS | Encounter Summary ---
Author Organization [facility] Address [address] [place] [address]. [place] [address] [place] [address] Care Team Providers Care Casting And Pasting Supervisor Name Role Phone Abdon Villela MD Primary Care Provider [phone] Vik Colvin MD Unavailable Unavailable Encounter Details Date Type Department Care Team (Late st Contact Info) Description 04/05/2019 Orders Only [facility] [address] [place] [address] Shonna Leonardo, RN Social History Tobacco Use [...] (Latest Contact Info) Description 06/09/2024 2:20 PM QUARANTINE INSPECTOR Telemedicine [facility] Medical Group Multispecialty [facility] [address] [place] [address] Earnest Drake MD [address] [place] [address] 06/21/2024 1:30 AM QUARANTINE INSPECTOR Allied Health/Nurse Visit [facility] [address] [place] [address] Madan Palomo MD [address] [place] [address] 03/01/2025 11:00 AM CDT Allied Health/Nurse Visit [facility] [place] [address] [place] [address] Norma Rowland PA-C [address] [place], [place] [address] 03/01/2025 11:00 AM CDT Office Visit [facility] [place] [address] [place] [address] Norma Rowland PA-C [address] [place], [place] [address] documented as of this encounter Visit Diagnoses Not on filedocumented in this encounter Care Teams Casting And Pasting Supervisor Relationship Specialty Start Date End Date Abdon Villela MD [address] [place] [address] PCP - General FAMILY PRACTICE 12/17/15 [place] [address] [place] Automatic Centrifugal Station Operator INTERVENTIONAL CARDIOLOGY 05/20/18 07/04/19 documented as of this encounter
--- OUTSIDE RECORDS SUMMARY | 2024-06-08 06:10 | XMS_ITS | Encounter Summary ---
Author Organization [facility] Address [facility] [place] [address] [place] [address] Care Team Providers Care Supervisor Water Softener Service Name Role Phone Abdon Villela MD Primary Care Provider [phone] Pernell Vance MD Unavailable UnavailKamilla Lazaro NP Unavailable Unavailable Madan Palomo MD Unavailable [phone] Encounter Details Date Type Department Care Team (Late st Contact Info) Description 09/16/2022 7:29 AM CDT Anesthesia Event [facility] Transportation Operations Manager [address] [place] [phone] Amanda Martinez MD [address] [place] [address] [place] [address] Tiera Astorga RN Anesthesia Record Procedure Summary Procedure Name Responsible Anesthesiologist Anesthesia Start Time Anesthesia Stop Time XA BIV PACER Amanda Martinez MD 09/16/22 0729 09/16/22 1012 Events Date Time Event Comment 09/16/2022 0729 An Start Patient ID and consent checked and patient reassessed. 0729 An Start Data 0733 Face Mask Applied 0733 AN Immediate Reassess The pa tient was reevaluated immediately before sedation or regional anesthesia. 0756 Anesthesia Ready 0805 1007 an stop data 1012 Post Anesthetic Care Handoff I completed my handoff to the receiving nurse during which we: 1. Identified the patient 2. Identified the responsible provider 3. Reviewed the pertinent medical history 4. Discussed the surgical course 5. Reviewed intra-op anesthesia management and issues during anesthesia 6. Set expectations for post-procedure period 7. Allowed opportunity for questions and acknowledgement of understanding. 1012 An Stop Meds Name Total lidocaine (PF) (XYLOCAINE) 1% injection 20 mg propofol (DIPRIVAN) 500 mg/50 mL injecti on 741.2 mg midazolam 2 mg/2 mL injection 2 mg phenylephrine (AKIKO-SYNEPHRIN E) 10 mg in sodium chloride 0.9 % 250 mL infusion 1,500 mcg ceFAZolin (ANCEF) 1 g injection 2 g lactated ringers infusion 300 mL sodium chloride 0.9% infusion 300 mL * Agents Name O2 * Blood No blood administrations on file. Lines, Drains, and Airways Type Details Placement Removal Peripheral IV Placement Date: 09/16/22; Placement Time: 0625; Placed Outside of This Facility?: No; Size: 18 G; Orientation: Left; Location: Antecubital; Site Prep: Chlorhexidine; Local Anesthetic: None; Inserted By: alyssa,rn; Insertion attempts: 1; Ultrasound-guided Placement?: No; Patient Tolerance: Tolerated well; Removal Date: 09/16/22; Removal Time: 1309; Removal Reason: Therapy Completed 09/16/22 0625 by Latoya Potter RN 09/16/22 1309 by Amada Esteban RN Peripheral Catheter Catheter Size 16 G; Laterality Right; Prep alcohol swabs; Insertion Attempts 2 09/16/22 0731 by Stalin Wolf CRNA 09/16/22 1212 by Amada Esteban RN Arterial Line Placement Date: 09/16/22; Placement Time: 0748 (created via procedure documentation); Placed Outside of This Facility?: No; Size: 20; Orientation: Left; Location: Radial; Insertion Attempts: 2; Removal Date: 09/16/22; Removal Time: 1100; Removal Reason: Therapy Completed 09/16/22 0748 by Stalin Wolf CRNA 09/16/22 1100 by Amada Esteban RN documented in this encounter Social History [...] AM CDT documented as of this encounter OR Notes * Anesthesia Postprocedure Evaluation - Amanda Martinez MD - 09/16/2022 10:28 AM CDT Anesthesia Post-op Note Avila Fernandez Procedure(s): XA BIV PACER XA LASER LEAD EXTRACTION Anesthesia type: general Vitals: 09/16/22 1012 BP: 94/45 Vitals: 09/16/22 1012 Pulse: 60 Vitals: 09/16/22 1012 Resp: 18 Vitals: 09/16/22 0602 Temp: 36.3 ??C Vitals: 09/16/22 1012 SpO2: 95% Patient Location: PACU Level of Consciousness: awake Pain Management: adequate analgesia Airway Patency: patent Respiratory Status: acceptable Cardiovascular Status: acceptable Post-Op Nausea: none Postoperative Hydration: euvolemic There were no known notable events for this encounter. * Anesthesia Procedure Notes - Stalin Wolf CRNA - 09/16/2022 7:58 AM CDT Associated Order(s): Art Line Art Line Date/Time: 09/16/2022 7:48 AM Performed by: Stalin Wolf CRNA Authorized by: Amanda Martinez MD Patient Location: Transportation Operations Manager Placed Outside of This Facility?: No Size: 20 Orientation: Left Location: Radial Insertion Attempts: 2 Ultrasound-guided Placement: Yes Ultrasound was used to visualized vascular needle entry into the vessel Secure Method: Taped * Anesthesia Preprocedure Evaluation - Amanda Martinez MD - 09/15/2022 7:53 AM CDT Anesthesia ROS/MED History Reviewed: Patient summary , ECG, Anesthesia history , Labs Pre-Anesthetic State: alert no history of anesthetic complications Pulmonary neg pulmonary ROS Cardiovascular (+) pacemaker (april 2013), hypertension, CAD, CHF, (Chronic), (Systolic), arrhythmia, (A-fib), hyperlipidemia ROS comment: EKG 06-04-23 Interpretive Statements ELECTRONIC VENTRICULAR PACEMAKER ABNORMAL RHYTHM ECG ER GASKET INSPECTOR TRIMMER Echo 05-27-23 Summary The left ventricular size is moderately enlarged. Estimated left ventricular ejection fraction is 35-40%, closer to 40%. The right ventricular size is mildly enlarged. Right ventricular systolic function is depressed. Inferior vena cava shows >50% collapse with respiration consistent with normal right atrial pressure. Mild tricuspid regurgitation. < Neuro/Psych neg neuro/psych ROS GI/Hepatic/Renal neg GI/hepatic/renal ROS Endo/Other (+) diabetes mellitus, (type 2), (Using Oral hypoglycemic), blood dyscrasia, (Anticoagulation) GENERAL COMMENTS No H&P Physical Evaluation Airway Mallampati: III Dental Pulmonary Pulmonary exam normal Cardiovascular Rhythm: irregular Rate: irregular Anesthesia Plan ASA 3 Intravenous Induction Anesthesia type: MAC Plan for Vascular: arterial line and second IV Informed Consent Anesthetic plan and risks discussed with patient of whom. . documented in this encounter Plan of Treatment Upcoming Encounters Date Type Department Care Team (Latest Contact Info) Description 06/09/2024 2:20 PM RUBBER GASKET INSPECTOR TRIMMER Telemedicine [facility] [address] [place] [address] Earnest Drake MD [address] [place] [address] 06/21/2024 1:30 AM RUBBER GASKET INSPECTOR TRIMMER Allied Health/Nurse Visit [facility] [address] [place] [address] Madan Palomo MD [address] [place], [place] [address] 03/01/2025 11:00 AM CDT Allied Health/Nurse Visit [place] [address] [place] [address] Norma Rowland PA-C [address] [place], [place] [address] 03/01/2025 11:00 AM CDT Office Visit [place] [address] [place] [address] Norma Rowland PA-C [address] [place], [place] [address] documented as of this encounter Procedures Procedure Name Priority Date/Time Associated Diagnosis Comments ART LINE PLACEMENT Routine 09/16/2022 7: 48 AM CDT documented in this encounter Results * ART LINE PLACEMENT (09/16/2022 7:48 AM CDT) Stalin Regalado CRNA - 09/16/2022 7:48 AM CDT Stalin Wolf CRNA ? 09/16/2022 ??7:59 AM Art Line Date/Time: 09/16/2022 7:48 AM Performed by: Stalin Wolf CRNA Authorized by: Amanda Martinez MD Patient Location: ??Transportation Operations Manager Placed Outside of This Facility?: ??No Size: ??20 Orientation: ??Left Location: ??Radial Insertion Attempts: ??2 Ultrasound-guided Placement: ??Yes Ultrasound was used to visualized vascular needle entry into the vessel ?? Secure Method: ??Taped Amanda Martinez MD [place] ANESTHESIA Final Result documented in this encounter Visit Diagnoses Not on filedocumented in this encounter Administered Medications Inactive Administered Medications - up to 3 most recent administrations Medication Order MAR Action Action Date Dose Rate Site ceFAZolin (ANCEF) injection Intravenous, PRN, Starting on Thu09/16/22 at 0823, Until Thu09/16/22 at 1012, Anesthesia Intra-Op Given 09/16/2022 8:23 AM CDT 2 g lactated ringers infusion Intravenous, Continuous PRN, Starting on Thu09/16/22 at 0735, Until Thu09/16/22 at 1012, Anesthesia Intra-Op New Bag 09/16/2022 7:35 AM CDT lidocaine (PF) (XYLOCAINE) 1 % injection Intravenous, PRN, Starting on Thu09/16/22 at 0740, Until Thu09/16/22 at 1012, Anesthesia Intra-Op Given 09/16/2022 7:40 AM CDT 20 mg midazolam (VERSED) injection Intravenous, PRN, Starting on Thu09/16/22 at 0730, Until Thu09/16/22 at 1012, Anesthesia Intra-Op Given 09/16/2022 7:54 AM CDT 1 mg Given 09/16/2022 7:30 AM CDT 1 mg phenylephrine (AKIKO-SYNEPHRINE) 10 mg in sodium chloride 0.9 % 250 mL infusion Intravenous, Continuous PRN, Starting on Thu09/16/22 at 0841, Until Thu09/16/22 at 1012, Anesthesia Intra-Op New Bag 09/16/2022 8:41 AM CDT 20 mcg/min 30 mL/hr propofol (DIPRIVAN) IV bolus Intravenous, Continuous PRN, Starting on Thu09/16/22 at 0740, Until Thu09/16/22 at 1012, Anesthesia Intra-Op New Bag 09/16/2022 7:40 AM CDT 50 mcg/kg/min 32.7 mL/hr sodium chloride 0.9% infusion at 10 mL/hr, Intravenous, Continuous, Starting on Thu09/16/22 at 0600, Until Thu09/16/22 at 1514, Infuse at TKO rate, Pre-Op New Bag 09/16/2022 7:31 AM CDT documented in this encounter Care Teams Supervisor Water Softener Service Relationship Specialty Start Date End Date Abdon Villela MD [address] [place] [address] PCP - General FAMILY PRACTICE 12/17/15 Pernell Vance MD [address] [place] [address] Consulting Physician CARDIOVASCULAR DISEASE 07/05/1901/30 Kamilla Oliveira NP [address] [place] [address] Referring Physician Nurse Practitioner Family 10/08/2104/14 Madan Palomo MD [address] [place] [address] EP Animal Humane Agent Supervisor CLINICAL CARDIAC ELECTROPHYSIOLOGY 10/08/21 documented as of this encounter
--- OUTSIDE RECORDS SUMMARY | 2024-06-08 06:10 | XMS_ITS | Encounter Summary ---
Author Organization [facility] Address [facility] [place] [address] [place] [address] Care Team Providers Care Cryogenic Transport Driver Name Role Phone Abdon Villela MD Primary Care Provider [phone] Pernell Vance MD Unavailable UnavailKamilla Lazaro NP Unavailable Unavailable Madan Palomo MD Unavailable [phone] Encounter Details Date Type Department Care Team (Latest Contact Info) Description 01/17/2023 Travel Social History Tobacco Use Types Packs/Day [...] in a nursing home (including now)? No 01/17/2023 Sex and Gender [...] or climbing stairs? Yes 01/17/2023 5:13 PM Tonya Robles RN A ctive * Question Answer Date of Assessment Author Status Do you have difficulty dressing or bathing? Yes 01/17/2023 5:13 PM Tonya Robles RN Active Because of a physical, mental, or emotional condition, do you have difficulty doing errands alone such as visiting a doctor's office or shopping? Yes 01/17/2023 5:13 PM Tonya Robles RN Ac tive * Are you [...] or making decisions? Yes 01/17/2023 5:13 PM Tonya Robles RN Active * Because of a physical, mental, or emotional condition, do you have serious difficulty concentrating, remembering, or making decisions? Answer Entry Date Author Status Yes 01/17/2023 5:13 PM Tonya Robles RN Active documented in this encounter Plan of Treatment Upcoming Encounters Date Type Department Care Team (Latest Contact Info) Description 06/09/2024 2:20 PM LEATHER GOODS II ASSEMBLER Telemedicine [facility] [address] [place] [address] Earnest Drake MD [address] [place], [place] [address] 06/21/2024 1:30 AM LEATHER GOODS II ASSEMBLER Allied Health/Nurse Visit [facility] [address] [place] [address] Madan Palomo MD [address] [place] [address] 03/01/2025 11:00 AM CDT Allied Health/Nurse Visit [facility] [place] [address] [place] [address] Norma Rowland PA-C [address] [place], [place] [address] 03/01/2025 11:00 AM CDT Office Visit [facility] [place] [address] [place] [address] Norma Rowland PA-C [address] [place], [place] [address] documented as of this encounter Visit Diagnoses Not on filedocumented in this encounter Care Teams Cryogenic Transport Driver Relationship Specialty Start Date End Date Abdon Villela MD [address] [place] [address] PCP - General FAMILY PRACTICE 12/17/15 Pernell Vance MD [address] [place] [address] Consulting Physician CARDIOVASCULAR DISEASE 07/05/1901/30 Kamilla Oliveira NP [address] [place] [address] Referring Physician Nurse Practitioner Family 10/08/2104/14 Madan Palomo MD [address] [place] [address] EP Lawn Care Specialist CLINICAL CARDIAC ELECTROPHYSIOLOGY 10/08/21 documented as of this encounter
--- OUTSIDE RECORDS SUMMARY | 2024-06-08 06:10 | XMS_ITS | Encounter Summary ---
Author Organization [facility] Address [address] [place] [address]. [place] [address] [place] [address] Care Team Providers Care Economics Consultant Name Role Phone Abdon Villela MD Primary Care Provider [phone] Pernell Vance MD Unavailable Unavailabl e Encounter Details Date Type Department Care Team (Late st Contact Info) Description 01/02/2020 Orders Only [facility] [address] [place] [address] Aubrey Kamara MD Social History Tobacco Use Types Packs/Day [...] Contact Info) Description 06/09/2024 2:20 PM PLASTIC BUBBLE PACKER Telemedicine [facility] Medical [facility] [address] [place] [address] Earnest Drake MD [address] [place] [address] 06/21/2024 1:30 AM PLASTIC BUBBLE PACKER Allied Health/Nurse Visit [facility] el [address] [place] [address] Madan Palomo MD [address] [place] [address] 03/01/2025 11:00 AM CDT Allied Health/Nurse Visit [place] [address] [place] [address] Norma Rowland PA-C [address] [place], [place] [address] 03/01/2025 11:00 AM CDT Office Visit [place] [address] [place] [address] Norma Rowland PA-C [address] [place], [place] [address] documented as of this encounter Procedures Procedure Name Priority Date/Time Associated Diagnosis Comments ELECTROCARDIOGRAM (NON MIDMARK ACQUIRED) Routine 01/02/2020 10:56 AM CDT Sinus node dysfunction (CMS/HCC HHS/HCC) Paroxysmal atrial fibrillation (CMS/HCC HHS/HCC) Cardiac pacemaker in situ documented in this encounter Results * ELECTROCARDIOGRAM (01/02/2020 10:56 AM CDT) 01/02/2020 10:5 6 AM CDT Narrative [facility] - 01/03/2020 5:50 PM CDT ? [facility] [place] [place] ?[address], [place] ??[address] ? Test Date: ?2020-01-02 Pat Name: ? ANNIE FERNANDEZ ?Department: ? Room: ? Gender: ? Male ? Tower Helper: ?? : ?1945 ? Requested By: AUBREY KAMARA Order Number: [id number] ?Reading MD: ?? Aubrey Kamara ? Measurements Intervals ?[place] ? Rate: ? 84 ? P: ? HI: ? 0 ?QRS: ?-80 QRSD: ? 185 ?T: ?92 QT: ? 429 ? QTc: ?509 ? Interpretive Statements ELECTRONIC VENTRICULAR PACEMAKER ABNORMAL RHYTHM ECG Procedure Note Aubrey Kamara MD - 01/03/2020 [facility] [place] [facility] [place] [address] [place] [address] Test Date: 2020-01-02 Pat Name: ANNIE FERNANDEZ Department: Room: Gender: Male Tower Helper: : 1945 Requested By: AUBREY KAMARA Order Number: [id number] Reading MD: Aubrey Kamara Measurements Intervals [place] Rate: 84 P: HI: 0 QRS: -80 QRSD: 185 T: 92 QT: 429 QTc: 509 Interpretive Statements ELECTRONIC VENTRICULAR PACEMAKER ABNORMAL RHYTHM ECG us Aubrey Kamara MD PROCEDURES-ORDERABLE NO SUPA RGE Final Result [facility] [address] [facility][1] [address] [place] [address], [id number] documented in this encounter Visit Diagnoses Diagnosis Sinus node dysfunction (CMS/HCC HHS/HCC)- Primary Sinoatrial node dysfunction Paroxysmal atrial fibrillation (CMS/HCC HHS/HCC) Atrial fibrillation Cardiac pacemaker in situ documented in this encounter Care Teams Economics Consultant Relationship Specialty Start Date End Date [place] [address] PCP - General FAMILY PRACTICE 12/17/15 [place] [address] [address] Consulting Physician CARDIOVASCULAR DISEASE 07/05/1901/30 documented as of this encounter
--- OUTSIDE RECORDS SUMMARY | 2024-06-08 06:10 | XMS_ITS | Encounter Summary ---
Author Organization [facility] Address [address] [place] [address]. [place] [address] [place] [address] Care Team Providers Care Remedial Reading Teacher Name Role Phone Abdon Villela MD Primary Care Provider [phone] Pernell Vance MD Unavailable UnavailKamilla Lazaro NP Unavailable Unavailable Madan Palomo MD Unavailable [phone] Reason for Visit * Reason Comments Follow Up Encounter Details Date Type Department Care Team (Late st Contact Info) Description 06/04/2022 10:00 AM TOUR BUS DRIVER/GUIDE Office Visit [facility] [place] [address] Madan Palomo MD [address] [place], [place] [address] Follow Up Social History Tobacco Use Types [...] Coronavirus/COVID-19? No / Unsure 06/04/2022 9:19 AM TOUR BUS DRIVER/GUIDE documented as of this encounter Last Filed Vital Signs Vital Sign Reading Time Taken Comments Blood Pressure 132/64 06/04/2022 12:19 PM TOUR BUS DRIVER/GUIDE Pulse 69 06/04/2022 12:19 PM TOUR BUS DRIVER/GUIDE Temperature - - Respiratory Rate 18 06/04/2022 12:19 PM TOUR BUS DRIVER/GUIDE Oxygen Saturation 100% 06/04/2022 12:19 PM TOUR BUS DRIVER/GUIDE Inhaled Oxygen Concentration - - Weight 111.2 kg (245 lb 4 oz) 06/04/2022 12:19 P M TOUR BUS DRIVER/GUIDE Height 175.3 cm (5' 9 ) 06/04/2022 12:19 PM TOUR BUS DRIVER/GUIDE Body Mass Index 36.22 06/04/2022 12:19 PM TOUR BUS DRIVER/GUIDE documented in this encounter Progress Notes * Madan Palomo MD - 06/04/2022 10:00 AM CST Images from the original note were not included. Cardiac Electrophysiology Clinic Note PATIENT NAME: Avila Fernandez : 1945 REFERRING PROVIDER: Abdon Villela MD PCP: ABDON VILLELA MD PRIMARY CARDIOLOGY PROVIDER: Pernell Vance MD Reason for Visit Cardiac electrophysiology follow-up for atrial fibrillation, CHF chronic systolic and management ofcardiac device in situ History of Present Illness I had the pleasure of seeing Avila Fernandez in the Cardiac Electrophysiology Clinic at [facility]. 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 She was a former patient of Dr. Reyes who had left our practice. He underwent dual-chamber pacemaker implantation for high degree AV block in April 2013. Recently he underwent echocardiogram which showed a decline in LV systolic function to 35 to 40%. He denies any chest pain. Complains of shortness of breath, NYHA class II. Denies any orthopnea/PND. Denies any pedal edema. Denies any palpitations. Denies any syncopal episodes. Complains of fatigue. Device interrogation today reveals 100% RV pacing with brief episodes of nonsustained ventricular tachycardia noted. Diagnostics EKG - From today shows [...] with himin detail regarding the procedure. We also discussed the small possibility of requiring laser lead extraction of his right atrial lead if subclavian vein is occluded. The risks versus benefits were discussed and questions were answered. He is interested in proceeding with the procedure. Continue lisinopril and carvedilol. We will hold his apixaban for 2 days prior to procedure to minimize risk for pocket hematoma. We will also hold lisinopril, HCTZ, glipizide and metformin on day of procedure. 2. Longstanding persistent atrial fibrillation: Rate controlled due to underlying complete heart block. Continue apixaban. 3. Cardiac device in situ: His Medtronic dual-chamber pacemaker was interrogated today. It revealedexcellent pacing and sensing thresholds. Brief episodes of nonsustained ventricular tachycardia noted. Continue remote monitoring in 3 months. Thank you for allowing me to participate in the care of Avila Fernandez High complexity medical decision making was performed in this encounter including discussion regarding biventricular pacemaker upgrade, laser lead extraction; its risks and benefits. Medications Current Outpatient Medications: ??? amLODIPine 2.5 MG [...] TWICE A DAY, Disp: 60 tablet, Rfl: 5 ??? glipiZIDE 10 MG tablet, Take 1 [...] mcg by mouth daily., Disp: , Rfl: Allergies No Known Allergies Past Medical History [...] date: 02/14/1966 Quit date: 10/07/1995 Years since quittin.7 ??? Smokeless tobacco: Never Substance Use Topics [...] is not nervous/anxious. Physical Examination Filed Vitals: 06/04/22 1219 BP: 132/64 Pulse: 69 Resp: 18 SpO2: 100% Weight: 111.2 kg (245 lb 4 oz) Height: 5' 9 (1.753 m) Physical Exam Vitals reviewed. Constitutional: [...] Content: Thought content normal. Judgment: Judgment normal. BUS DRIVER/GUIDE documented in this encounter Plan of Treatment Upcoming Encounters Date Type Department Care Team (Latest Contact Info) Description 06/09/2024 2:20 PM TOUR BUS DRIVER/GUIDE Telemedicine [facility] [address] [place] [address] Earnest Drake MD [address] [place], [place] [address] 06/21/2024 1:30 AM TOUR BUS DRIVER/GUIDE [facility] [address] [place] [address] Madan Palomo MD [address] [place] [address] 03/01/2025 11:00 AM CDT Allied Health/Nurse Visit [facility] [place] [address] [place] [address] Norma Rowland PA-C [address] [place] [address] 03/01/2025 11:00 AM CDT Office Visit [facility] [place] [address] [address] Norma Rowland PA-C [address] [place], [place] [address] documented as of this encounter Visit Diagnoses Diagnosis Chronic atrial fibrillation (CMS/HCC HHS/HCC)- Primary Atrial fibrillation Sinus node dysfunction (CMS/HCC HHS/HCC) Sinoatrial node dysfunction documented in this encounter Care Teams Remedial Reading Teacher Relationship Specialty Start Date End [place] [address] PCP - General FAMILY PRACTICE 12/17/15 [place] [address] Consulting Physician CARDIOVASCULAR DISEASE 07/05/1901/30 Kamilla Oliveira NP [address] [place] [address] Referring Physician Nurse Practitioner [facility] 10/08/2104/14 Madan Palomo MD [address] [place], [place] [address] EP Leather Whitener CLINICAL CARDIAC ELECTROPHYSIOLOGY 10/08/21 documented as of this encounter
--- OUTSIDE RECORDS SUMMARY | 2024-06-08 06:10 | XMS_ITS | Encounter Summary ---
Author Organization [facility] Address [facility] [place] [address] [place] [address] Care Team Providers Care Adult Literacy Instructor Name Role Phone Abdon Villela MD Primary Care Provider [phone] Prenell Vance MD Unavailable UnavailKamilla Lazaro NP Unavailable Unavailable Madan Palomo MD Unavailable [phone] Encounter Details Date Type Department Care Team (Late st Contact Info) Description 09/15/2022 Orders Only [facility] [address] [place] [address] Bebe Bianchi, RN Social History Tobacco Use Types Packs/Day [...] (Latest Contact Info) Description 06/09/2024 2:20 PM OVERNIGHT STOCKER Telemedicine [facility] Medical Group Mult[facility]pecialty [facility] [address] [place] [address] Earnest Drake MD [address] [place], [place] [phone] 06/21/2024 1:30 AM OVERNIGHT STOCKER Allied Health/Nurse Visit [facility] [address] [place] [address] Madan Palomo MD [address] [place], [place] [address] 03/01/2025 11:00 AM CDT Allied Health/Nurse Visit [facility] [place] [address] [place] [address] Norma Rowland PA-C [address] [place] [address] 03/01/2025 11:00 AM CDT Office Visit [facility] [place] [address] [place] [address] Norma Rowland PA-C [address] [place], [place] [phone] documented as of this encounter Procedures Procedure Name Priority Date/Time Associated Diagnosis Comments COMPREHENSIVE METABOLIC PANEL Routine 09/09/2022 Sinus node dysfunction (CMS/HCC HHS/HCC) Other cardiomyopathies (CMS/HCC HHS/HCC) Pre-op testing CBC W/DIFF AUTOMATED Routine 09/09/2022 Sinus node dysfunction (CMS/HCC HHS/HCC) Other cardiomyopathies (CMS/HCC HHS/HCC) Pre-op testing documented in this encounter Results * (ABNORMAL) CBC W/DIFF AUTOMATED (09/09/2022) WBC [...] BASOPHILS 0.1 0.0 - 0.2 09/09/2022 Madan Palomo MD LABORATORY Final Res ult * (ABNORMAL) COMPREHENSIVE METABOLIC PANEL (09/09/2022) Pathologist [facility] SODIUM S/P/B 139 134 - 144 POTASSIUM [...] PROTEIN S/P/B 6.7 6.0. - 8.5 09/09/2022 Result [facility] Madan Palomo MD LABORATORY Final Res ult documented in this encounter Visit Diagnoses Diagnosis Sinus node dysfunction (CMS/HCC HHS/HCC) Sinoatrial node dysfunction Other cardiomyopathies (CMS/HCC HHS/HCC) Pre-op testing Preoperative examination, unspecified documented in this encounter Care Teams Adult Literacy Instructor Relationship Specialty Start Date End Date Abdon Villela MD [address] [place] [address] PCP - General FAMILY PRACTICE 12/17/15 Pernell Vance MD [address] [place] [address] Consulting Physician CARDIOVASCULAR DISEASE 07/05/1901/30 Kamilla Oliveira NP [address] [place] [address] Referring Physician Nurse Practitioner [facility] 10/08/2104/14 Madan Palomo MD [address] [place] [address] EP Sort Manager CLINICAL CARDIAC ELECTROPHYSIOLOGY 10/08/21 documented as of this encounter
--- OUTSIDE RECORDS SUMMARY | 2024-06-08 06:10 | XMS_ITS | Encounter Summary ---
Author Organization [facility] Address [facility] [place] [address] [place] [address] Care Team Providers Care Vice President Of Academic Affairs Name Role Phone Abdon Villela MD Primary Care Provider [phone] Pernell Vance MD Unavailable UnavailKamilla Lazaro NP Unavailable Unavailable Madan Palomo MD Unavailable [phone] Encounter Details Date Type Department Care Team (Latest Contact Info) Description 12/31/2022 9:15 AM CDT - 12/31/2022 11:59 PM CDT Hospital Encounter [facility] [address] [place] [address] Madan Palomo MD [address] [place], [place] [address] Discharge Disposition: Home or Self Care (Routine [...] on file documented as of this encounter Medications at [...] Contact Info) Description 06/09/2024 2:20 PM MANAGER ED Telemedicine [facility] Medical Group Mult[facility]pec[facility] [address] [place] [address] Earnest Drake MD [address] [place] [address] 06/21/2024 1:30 AM MANAGER ED Allied Health/Nurse Visit [facility] eld [address] [place] [address] Madan Palomo MD [address] [place] [address] 03/01/2025 11:00 AM CDT Allied Health/Nurse Visit [facility] [address] [place] [address] Norma Rowland PA-C [address] [place], [place] [address] 03/01/2025 11:00 AM CDT Office Visit [place] [address] [place] [address] Norma Rowland PA-C [address] [place], [place] [address] documented as of this encounter Procedures Procedure Name Priority Date/Time Associated Diagnosis Comments ECG 12-LEAD Routine 12/31/2022 9:24 AM CDT Chronic atrial fibrillation (CMS/HCC HHS/HCC) documented in this encounter Results * ECG 12 lead (HOSPITAL PERFORMED ONLY) (12/31/2022 9:24 AM CDT) 12/31/2022 9:24 AM CDT Narrative [facility] - 12/31/2022 2:45 PM CDT ? [facility] ?[address] [place], [place] ??[address] ? Test Date: ?2022-12-31 Pat Name: ? ANNIE FERNANDEZ ?Department: ?? 3 ? Room: ? Gender: ? Male ? [employer] Assistant Manager: ?? : ?1945 ? Requested By: MADAN MORALESPALAN Order Number: [id number] ? Reading MD: ?? Madan Mayra ? Measurements Intervals ?[place] ? Rate: ? 71 ? P: ? DE: ? 0 ?QRS: ?263 QRSD: ? 167 ?T: ?77 QT: ? 441 ? QTc: ?481 ? Interpretive Statements ELECTRONIC VENTRICULAR PACEMAKER Atrial fibrillation ABNORMAL RHYTHM ECG Procedure Note Madan Palomo MD - 12/31/2022 [facility] [address] [place] [address] Test Date: 2022-12-31 Pat Name: ANNIE FERNANDEZ Department: 3 Room: Gender: Male [employer] Assistant Manager: : 1945 Requested By: MADAN PALOMO Order Number: [id number] Reading MD: Madan Palomo Measurements Intervals [place] Rate: 71 P: DE: 0 QRS: 263 QRSD: 167 T: 77 QT: 441 QTc: 481 Interpretive Statements ELECTRONIC VENTRICULAR PACEMAKER Atrial fibrillation ABNORMAL RHYTHM ECG us Madan Palomo MD ECG ORDERABLES Final Res ult [facility] documented in this encounter Visit Diagnoses Diagnosis Chronic atrial fibrillation ([facility]/HCC HHS/HCC) Atrial fibrillation documented in this encounter Care Teams Vice President Of Academic Affairs Relationship Specialty Start Date End [place] [address] PCP - General FAMILY PRACTICE 12/17/15 [place] [address] Consulting Physician CARDIOVASCULAR DISEASE 07/05/1901/30 Kam[place] [address] [address] [address] Referring Physician Nurse Practitioner Family 10/08/2104/14 Madan Palomo MD [address] [place] [address] EP Complaint Analyst CLINICAL CARDIAC ELECTROPHYSIOLOGY 10/08/21 documented as of this encounter
--- OUTSIDE RECORDS SUMMARY | 2024-06-08 06:10 | XMS_ITS | Encounter Summary ---
Author Organization [facility] Address [address] [place] [address]. [place], [place] [address] [place] [address] Care Team Providers Care Neurology Hospitalist Name Role Phone Abdon Villela MD Primary Care Provider [phone] Vik Colvin MD Unavailable Unavailable Reason for Visit * Reason Onset Date Comments Reschedule 08/24/2018 In office device f/u & remote Encounter Details Date Type Department Care Team (Late st Contact Info) Description 08/24/2018 Telephone [facility] [address] [place] [address] Dalton Reyes MD Reschedule (In office device f/u & remote) Social History Tobacco Use Types Packs/Day Years [...] as of this encounter Progress Notes * Lani Mehta - 08/24/2018 11:36 AM CST Pt called to reschedule his appt for Th, 08/26/18. Pt has an appt conflict; r/s to 10/05/18 @ 9:30am. New letter mailed. NSED MARRIAGE AND FAMILY THERAPIST documented in this encounter Plan of Treatment Upcoming Encounters Date Type Department Care Team (Latest Contact Info) Description 06/09/2024 2:20 PM LICENSED MARRIAGE AND FAMILY THERAPIST Telemedicine [facility] Medical Group Mult[facility] [address] [place] [address] Earnest Drake MD [address] [place] [address] 06/21/2024 1:30 AM LICENSED MARRIAGE AND FAMILY THERAPIST [facility] [address] [place] [address] Madan Palomo MD [address] [place], [place] [address] 03/01/2025 11:00 AM CDT Allied Health/Nurse Visit [facility] [place] [address] [place] [address] Norma Rowland PA-C [address] [place], [place] [address] 03/01/2025 11:00 AM CDT Office Visit [facility] [place] [address] [place] [address] Norma Rowland PA-C [address] [place], [place] [address] documented as of this encounter Visit Diagnoses Not on filedocumented in this encounter Care Teams Neurology Hospitalist Relationship Specialty Start Date End Date Abdon Villela MD [address] [place] [address] PCP - General FAMILY PRACTICE 6/27/16 Vik Colvin MD [address] [place] [address] Black Granite Worker INTERVENTIONAL CARDIOLOGY 05/20/18 07/04/19 documented as of this encounter
--- OUTSIDE RECORDS SUMMARY | 2024-06-08 06:10 | XMS_ITS | Encounter Summary ---
Author Organization [facility] Address [address] [place] [address]. [place], [place] [address] [place] [address] Care Team Providers Care Corporate Operations Compliance Manager Name Role Phone Abdon Villela MD Primary Care Provider [phone] Pernell Vance MD Unavailable Unavailabl e Encounter Details Date Type Department Care Team (Late st Contact Info) Description 04/30/2021 10:45 AM ADVERTISING ASSOCIATE Allied Health/Nurse Visit [facility] [address] [place] [address] Dalton Reyes MD Social History Tobacco Use [...] Progress Notes * Ofelia Dominguez LPN - 04/30/2021 10:45 AM CST Images from the original note were not included. PACEMAKER REMOTE INTERROGATION NAME: Avila Fernandez : 1945 CSN: [id number] DATE OF INTERROGATION: 04/30/2021 FOLLOW UP E.P PHYSICIAN: Dr Juan Cortez DEVICE SPECIFICATIONS ARCHERY EQUIPMENT HAY SORTER [employer] DEVICE TYPE SINGLE CHAMBER PACEMAKER EST. BATTERY LIFE OR CURRENT VOLTAGE/GITA VOLTAGE 3.5y LEAD IMPEDENCE TRENDS [place] ATRIAL PACING % Na-VVIR RV PACING % 99.4 BIV/LV PACING % na COMMENTS ATRIAL ARRHYTHMIA AF BURDEN na % LONGEST EPISODE na ORAL ANTICOAGULATION Eliquis/Apixaban and ASA COMMENTS VENTRICULAR ARRHYTHMIA HIGH VENTRICULAR RATES/VT 0 COMMENTS ALERTS / NURSE COMMENTS ??? SEE ATTACHED PDF FOR VENDOR PRINTOUTS (PRESENTING, HISTOGRAMS, EGM'S) ??? No events PHYSICIAN COMMENTS (IF ANY) ??? Cosigned by Juan Cortez MD at 05/15/2021 10:21 AM ADVERTISING ASSOCIATE RTISING ASSOCIATE RTISING ASSOCIATE documented in this encounter Plan of Treatment Upcoming Encounters Date Type Department Care Team (Latest Contact Info) Description 06/09/2024 2:20 PM ADVERTISING ASSOCIATE Telemedicine [facility] Medical [facility] [address] [place] [address] Earnest Drake MD [address] [place], [place] [address] 06/21/2024 1:30 AM ADVERTISING ASSOCIATE Allied Health/Nurse Visit [facility] [address] [place] [address] Madan Palomo MD [address] [place] [address] 03/01/2025 11:00 AM CDT Allied Health/Nurse Visit [facility] [place] [address] Norma Rowland PA-C [address] [place] [address] 03/01/2025 11:00 AM CDT [facility] [address] [place] [address] Norma Rowland PA-C [address] [place] [address] documented as of this encounter Visit Diagnoses Diagnosis AVB (atrioventricular block) Atrioventricular block, unspecified documented in this encounter Care Teams Corporate Operations Compliance Manager Relationship Specialty Start Date End Date Abdon Villela MD [address] [place] [address] PCP - General FAMILY PRACTICE 12/17/15 Pernell Vance MD [address] [place] [address] Consulting Physician CARDIOVASCULAR DISEASE 07/05/1901/30 documented as of this encounter
--- OUTSIDE RECORDS SUMMARY | 2024-06-08 06:10 | XMS_ITS | Encounter Summary ---
Author Organization [facility] Address [address] [place] [address]. [place] [address] [place] [address] Care Team Providers Care Retail Zone Specialist Name Role Phone Abdon Villela MD Primary Care Provider [phone] Pernell Vance MD Unavailable UnavailKamilla Lazaro NP Unavailable Unavailable Madan Palomo MD Unavailable [phone] Encounter Details Date Type Department Care Team (Late st Contact Info) Description 12/30/2022 Orders Only [facility] [place] [address] Madan Palomo MD [address] [place], [place] [address] Social History Tobacco Use Types Packs/Day Years [...] Contact Info) Description 06/09/2024 2:20 PM STOCK LAYER Telemedicine [facility] Medical Group [facility] [address] [place] [address] Earnest Drake MD [address] [place], [place] [address] 06/21/2024 1:30 AM STOCK LAYER Allied Health/Nurse Visit [facility] [address] [place] [address] Madna Palomo MD [address] [place] [address] 03/01/2025 11:00 AM CDT Allied Health/Nurse Visit [facility] [place] [place] [address] Norma Rowland PA-C [address] [place] [address] 03/01/2025 11:00 AM CDT Office Visit [facility] [place] [address] [address] Norma Rowland PA-C [address] [place] [address] documented as of this encounter Results * ECG 12 lead (HOSPITAL PERFORMED ONLY) (12/31/2022 9:24 AM CDT) 12/31/2022 9:24 AM CDT Narrative [facility] - 12/31/2022 2:45 PM CDT ? [facility] ?[address] [place] ??[id number] ? Test Date: ?2022-12-31 Pat Name: ? ANNIE LIZZETTE ?Department: ?? 3 ? Room: ? Gender: ? Male ? Hotel Services Sales Representative: ?? : ?1945 ? Requested By: MADAN PALOMO Order Number: [id number] ? Reading MD: ?? Madan Palomo ? Measurements Intervals ?[place] ? Rate: ? 71 ? P: ? OR: ? 0 ?QRS: ?263 QRSD: ? 167 ?T: ?77 QT: ? 441 ? QTc: ?481 ? Interpretive Statements ELECTRONIC VENTRICULAR PACEMAKER Atrial fibrillation ABNORMAL RHYTHM ECG Procedure Note Madan Palomo MD - 12/31/2022 [facility] [address] [place] [address] Test Date: 2022-12-31 Pat Name: ANNIE FERNANDEZ Department: 3 Room: Gender: Male Hotel Services Sales Representative: : 1945 Requested By: MADAN PALOMO Order Number: [id number] Reading MD: Madan Palomo Measurements Intervals [place] Rate: 71 P: OR: 0 QRS: 263 QRSD: 167 T: 77 QT: 441 QTc: 481 Interpretive Statements ELECTRONIC VENTRICULAR PACEMAKER Atrial fibrillation ABNORMAL RHYTHM ECG us Madan Palomo MD ECG ORDERABLES Final Res ult [facility] documented in this encounter Visit Diagnoses Diagnosis Chronic atrial fibrillation (CMS/HCC HHS/HCC)- Primary Atrial fibrillation Chronic atrial fibrillation (CMS/HCC HHS/HCC) Atrial fibrillation documented in this encounter Care Teams Retail Zone Specialist Relationship Specialty Start Date End [place] [address] PCP - General FAMILY PRACTICE 12/17/15 [place] [address] Consulting Physician CARDIOVASCULAR DISEASE 07/05/1901/30 Kamilla Oliveira, TRAVELING ELECTRICIAN [place] [address] Referring Physician Nurse Practitioner Family 10/08/2104/14 Madan Palomo MD [address] [place] [address] EP Cell Geneticist CLINICAL CARDIAC ELECTROPHYSIOLOGY 10/08/21 documented as of this encounter
--- OUTSIDE RECORDS SUMMARY | 2024-06-08 06:10 | XMS_ITS | Encounter Summary ---
Author Organization [facility] Address [address] [place] [address]. [place] [address] [place] [address] Care Team Providers Care Paper Bag Making Machinist Name Role Phone Abdon Villela MD Primary Care Provider [phone] Pernell Vance MD Unavailable Unavailabl e Encounter Details Date Type Department Care Team (Latest Contact Info) Description 03/01/2020 Travel Social History Tobacco Use Types Packs/Day [...] (Latest Contact Info) Description 06/09/2024 2:20 PM CITY CLERK Telemedicine [facility] [address] [place] [address] Earnest Drake MD [address] [place] [address] 06/21/2024 1:30 AM CITY CLERK Allied Health/Nurse Visit [facility] [address] [place] [address] Madan Palomo MD [address] [place] [address] 03/01/2025 11:00 AM CDT Allied Health/Nurse Visit [facility] [place] [address] [place] [address] Norma Rowland PA-C [address] [place], [place] [address] 03/01/2025 11:00 AM CDT Office Visit [facility] [place] [address] [place] [address] Norma Rowland PA-C [address] [place], [place] [address] documented as of this encounter Visit Diagnoses Not on filedocumented in this encounter Care Teams Paper Bag Making Machinist Relationship Specialty Start Date End Date Abdon Villela MD [address] [place] [address] PCP - General FAMILY PRACTICE 12/17/15 [place] [address] Consulting Physician CARDIOVASCULAR DISEASE 07/05/1901/30 documented as of this encounter
--- OUTSIDE RECORDS SUMMARY | 2024-06-08 06:10 | XMS_ITS | Encounter Summary ---
Author Organization [facility] Address [facility]ly [facility] [place] [address] [place] [address] Care Team Providers Care Manufacturing Technologist Name Role Phone Abdon Villela MD Primary Care Provider [phone] Pernell Vance MD Unavailable UnavailKamilla Lazaro NP Unavailable Unavailable Madan Palomo MD Unavailable [phone] Norma Rowland PA-C Unavailable [phone] Encounter Details Date Type Department Care Team (Late st Contact Info) Description 09/12/2022 Hospital Orders Only [facility] Anesthesia [address] [place] [address] Tiera Astorga RN Anesthesia Record Procedure Summary Procedure Name Responsible Anesthesiologist Anesthesia Start Time Anesthesia Stop Time XA BIV PACER Ehab Alona Martinez MD 09/16/22 0729 09/16/22 1012 Events Date Time Event Comment 09/16/2022 0729 An Start Patient ID and consent checked and patient reassessed. 0729 An Start Data 0733 Face Mask Applied 0733 AN Immediate Reassess The lisa tient was reevaluated immediately before sedation or [...] acknowledgement of understanding. 1012 An Stop Meds * Agents No agents on file. * Blood No blood administrations on file. Lines, Drains, and Airways Type Details Placement Removal Peripheral IV Placement Date: 09/16/22; Placement Time: 0625; Placed Outside of This Facility?: No; Size: 18 G; Orientation: Left; Location: Antecubital; Site Prep: Chlorhexidine; Local Anesthetic: None; Inserted By: er,rn; Insertion attempts: 1; Ultrasound-guided Placement?: No; Patient Tolerance: Tolerated well; Removal Date: 09/16/22; Removal Time: 1309; Removal Reason: Therapy Completed 09/16/22 0625 by Latoya Potter RN 09/16/22 1309 by Amada Esteban RN Peripheral Catheter Catheter Size 16 G; Laterality Right; Prep alcohol swabs; Insertion Attempts 2 09/16/22 0731 by Stalin Wolf, SPECIAL TRACKWORK BLACKSMITH 09/16/22 1212 by Amada Esteban RN Arterial Line Placement Date: 09/16/22; Placement Time: 0748 (created via procedure documentation); Placed Outside of This Facility?: No; Size: 20; Orientation: Left; Location: Radial; Insertion Attempts: 2; Removal Date: 09/16/22; Removal Time: 1100; Removal Reason: Therapy Completed 09/16/22 0748 by Stalin Wolf SPECIAL TRACKWORK BLACKSMITH 09/16/22 1100 by Amada Esteban RN documented [...] (Latest Contact Info) Description 06/09/2024 2:20 PM CHURCH HISTORY PROFESSOR Telemedicine [facility] [place] [address] Earnest Drake MD [address] [place], [place] [phone] 06/21/2024 1:30 AM CHURCH HISTORY PROFESSOR Allied Health/Nurse Visit [facility] [address] [place] [address] Madan Palomo MD [address] [place] [address] 03/01/2025 11:00 AM CDT Allied Health/Nurse Visit [place] [address] [place] [address] Norma Rowland PA-C [address] [place], [place] [address] 03/01/2025 11:00 AM CDT Office Visit [place] [address] [place] [address] Norma Rowland PA-C [address] [place] [address] documented as of this encounter Visit Diagnoses Not on filedocumented in this encounter Additional Health Concerns Infection Onset Date Last Indicated Resolved Time COVID-19 Rule Out 07/27/2023 07/27/2023 07/27/2023 10:47 AM CHURCH HISTORY PROFESSOR COVID-19 Rule Out 05/16/2024 05/16/2024 05/16/2024 12:28 PM CHURCH HISTORY PROFESSOR ESBL - Extended Spectrum Beta-lactamase 06/01/2024 06/03/2024 COVID-19 Rule Out 06/03/2024 06/03/2024 06/04/2024 5:43 PM CHURCH HISTORY PROFESSOR Parainfluenza 06/03/2024 06/03/2024 documented as of this encounter Care Teams Manufacturing Technologist Relationship Specialty Start Date End Date Abdon Villela MD [address] [place] [address] PCP - General FAMILY PRACTICE 12/17/15 Pernell Vance MD [address] [place] [address] Consulting Physician CARDIOVASCULAR DISEASE 07/05/1901/30 Kamilla Oliveira NP [address] [place] [address] Referring Physician Nurse Practitioner [facility] 10/08/2104/14 Madan Palomo MD [address] [place] [address] EP Accounting Associate CLINICAL CARDIAC ELECTROPHYSIOLOGY 10/08/21 Norma Rowland PA-C [address] [place] [address] Referring Physician PHYSICIAN HEADER OPERATOR 12/31/23 documented as of this encounter
--- OUTSIDE RECORDS SUMMARY | 2024-06-08 06:10 | XMS_ITS | Encounter Summary ---
Author Organization [facility] Address [address] [place] [address]. [place] [address] [place] [address] Care Team Providers Care Swedger Name Role Phone Abdon Villela MD Primary Care Provider [phone] Pernell Vance MD Unavailable Unavailabl e Encounter Details Date Type Department Care Team (Latest Contact Info) Description 01/02/2020 Travel Social History Tobacco Use Types Packs/Day [...] (Latest Contact Info) Description 06/09/2024 2:20 PM CAREER PLACEMENT SPECIALIST Telemedicine [facility] [address] [place] [address] Earnest Drake MD [address] [place] [address] 06/21/2024 1:30 AM CAREER PLACEMENT SPECIALIST Allied Health/Nurse Visit [facility] [address] [place] [address] Madan Palomo MD [address] [place] [address] 03/01/2025 11:00 AM CDT Allied Health/Nurse Visit [facility] [place] [place] [place] [address] Norma Rowland PA-C [address] [place], [place] [address] 03/01/2025 11:00 AM CDT Office Visit [facility] [place] [address] [address] Norma Rowland PA-C [address] [place], [place] [address] documented as of this encounter Visit Diagnoses Not on filedocumented in this encounter Care Teams Swedger Relationship Specialty Start Date End Date Abdon Villela MD [address] [place] [address] PCP - General FAMILY PRACTICE 12/17/15 Pernell Vance MD [address] [place] [address] Consulting Physician CARDIOVASCULAR DISEASE 07/05/1901/30 documented as of this encounter
--- OUTSIDE RECORDS SUMMARY | 2024-06-08 06:10 | XMS_ITS | Encounter Summary ---
Author Organization [facility] Address [address] [place] [address]. [place] [address] [place] [address] Care Team Providers Care Safety Supervisor Name Role Phone Abdon Villela MD Primary Care Provider [phone] Pernell Vance MD Unavailable Unavailabl e Encounter Details Date Type Department Care Team (Late st Contact Info) Description 08/20/2021 8:30 AM TRAFFIC RATE CLERK Allied Health/Nurse Visit [facility] [address] [place] [address] Dalton Reyes MD Social History Tobacco Use [...] Progress Notes * Ofelia Dominguez LPN - 08/20/2021 8:30 AM CST Images from the original note were not included. PACEMAKER REMOTE INTERROGATION NAME: Avila Fernandez : 1945 [facility]: [id number] DATE OF INTERROGATION: 08/20/2021 FOLLOW UP E.P PHYSICIAN: Dr Juan Cortez DEVICE SPECIFICATIONS SOUP MIXER [employer] DEVICE TYPE SINGLE CHAMBER PACEMAKER EST. BATTERY LIFE OR CURRENT VOLTAGE/GITA VOLTAGE 3y LEAD IMPEDENCE TRENDS OK ATRIAL PACING % Na-VVIR RV PACING % 99.4 BIV/LV PACING % na COMMENTS ATRIAL ARRHYTHMIA AF BURDEN na % LONGEST EPISODE na ORAL ANTICOAGULATION Eliquis/Apixaban and ASA COMMENTS VENTRICULAR ARRHYTHMIA HIGH VENTRICULAR RATES/VT 2 COMMENTS 2s ALERTS / NURSE COMMENTS ??? SEE ATTACHED PDF FOR VENDOR PRINTOUTS (PRESENTING, HISTOGRAMS, EGM'S) ??? Normal Device Function PHYSICIAN COMMENTS (IF ANY) Cosigned by Juan Cortez MD at 08/22/2021 9:32 AM TRAFFIC RATE CLERK FIC RATE CLERK FIC RATE CLERK documented in this encounter Plan of Treatment Upcoming Encounters Date Type Department Care Team (Latest Contact Info) Description 06/09/2024 2:20 PM TRAFFIC RATE CLERK Telemedicine [facility] Medical Group Multispecialty [facility] [address] [place] [address] Earnest Drake MD [address] [place], [place] [address] 06/21/2024 1:30 AM TRAFFIC RATE CLERK [facility] [address] [place] [address] Madan Palomo MD [address] [place] [address] 03/01/2025 11:00 AM CDT Allied Health/Nurse Visit [facility] [place] [address] Norma Rowland PA-C [address] [place] [address] 03/01/2025 11:00 AM CDT Office Visit [facility] [address] [place] [address] Norma Rowland PA-C [address] [place] [address] documented as of this encounter Visit Diagnoses Diagnosis AVB (atrioventricular block) Atrioventricular block, unspecified documented in this encounter Care Teams Safety Supervisor Relationship Specialty Start Date End Date Abdon Villela MD [address] [place] [address] PCP - General FAMILY PRACTICE 12/17/15 Pernell Vance MD [address] [place] [address] Consulting Physician CARDIOVASCULAR DISEASE 07/05/1901/30 documented as of this encounter
--- OUTSIDE RECORDS SUMMARY | 2024-06-08 06:10 | XMS_ITS | Encounter Summary ---
Author Organization [facility] Address [address] [place] [address]. [place] [address] [place] [address] Care Team Providers Care Adjustment Examiner Name Role Phone Abdon Villela MD Primary Care Provider [phone] Pernell Vance MD Unavailable Unavailabl e Reason for Visit * Reason Onset Date Comments Question 07/11/2020 Returned Call 07/11/2020 Encounter Details Date Type Department Care Team (Late st Contact Info) Description 07/11/2020 Telephone [facility] [address] [place] [address] Dalton Reyes MD Question; Returned Call Social History Tobacco Use Types Packs/Day Years [...] as of this encounter Progress Notes * Kamilla Oliveira NP - 07/18/2020 2:43 PM CST Transmission in [employer] system. JAVASCRIPT DEVELOPER * Domenica Zhong RN - 07/17/2020 10:05 AM CST Pt called to say he rec'd his new transmittor, it is all connected and ready to go. Pt states he is scheduled for remote transmission on 07/27/20 however he is asking if he can send onenow. Spoke with hilary Calix in device clinic Hilary approved a transmission to be sent now. Pt verbalized understanding and will send it. JAVASCRIPT DEVELOPER * Hilary Calix - 07/11/2020 3:21 PM CST Patient returned a call to our office. [employer] is sending the patient a new hand held for the monitor. Patient to receive the hand held in 10-12 days. Scheduled the patient to send a transmission on 07/27/2020. Pt v/u. JAVASCRIPT DEVELOPER * Hilary Calix - 07/11/2020 2:52 PM CST Patient called stating his monitor is not sending his transmission and he is receiving error codes.I asked the patient to call [employer] to make sure they do not have to order another monitorfor him. Pt v/u. JAVASCRIPT DEVELOPER documented in this encounter Plan of Treatment Upcoming Encounters Date Type Department Care Team (Latest Contact Info) Description 06/09/2024 2:20 PM LEAD JAVASCRIPT DEVELOPER Telemedicine [facility] Medical [facility] [address] [place] [address] Earnest Drake MD [address] [place] [address] 06/21/2024 1:30 AM LEAD JAVASCRIPT DEVELOPER Allied Health/Nurse Visit [facility] [address] [place] [address] Madan Palomo MD [address] [place] [address] 03/01/2025 11:00 AM CDT Allied Health/Nurse Visit [facility] [address] [place] [place] [address] Norma Rowland PA-C [address] [place], [place] [address] 03/01/2025 11:00 AM CDT Office Visit [facility] [address] [place] [address] [place] [address] Norma Rowland PA-C [address] [place], [place] [address] documented as of this encounter Visit Diagnoses Not on filedocumented in this encounter Care Teams Adjustment Examiner Relationship Specialty Start Date End Date Abdon Villela MD [address] [place] [address] PCP - General FAMILY PRACTICE 12/17/15 Pernell Vance MD [address] [place] [address] Consulting Physician CARDIOVASCULAR DISEASE 07/05/1901/30 documented as of this encounter
--- OUTSIDE RECORDS SUMMARY | 2024-06-08 06:11 | XMS_ITS | Encounter Summary ---
Author Organization [facility] Address [address] [place] [address]. [place] [address] [place] [address] Care Team Providers Care Director Intelligence Analysis Programs Name Role Phone Abdon Villela MD Primary Care Provider [phone] Encounter Details Date Type Department Care Team (Late st Contact Info) Description 11/18/2016 Scan [facility] [address] [place] [address] Scanned, Documents Social History Tobacco Use Types [...] (Latest Contact Info) Description 06/09/2024 2:20 PM ROLLWAY MAN Telemedicine [facility] Medical Group Multispecialty [facility] [address] [place] [address] Earnest Drake MD [address] [place] [address] 06/21/2024 1:30 AM ROLLWAY MAN Allied Health/Nurse Visit [facility] eld [address] [place] [address] Madan Palomo MD [address] [place] [address] 03/01/2025 11:00 AM CDT Allied Health/Nurse Visit [facility] [place] [place] [address] Norma Rowland PA-C [address] [place], [place] [address] 03/01/2025 11:00 AM CDT Office Visit [facility] [place] [address] [place] [address] Norma Rowland PA-C [address] [place] [address] documented as of this encounter Visit Diagnoses Not on filedocumented in this encounter Care Teams Director Intelligence Analysis Programs Relationship Specialty Start Date End Date Abdon Villela MD [address] [place] [address] PCP - General FAMILY PRACTICE 12/17/15 documented as of this encounter
--- OUTSIDE RECORDS SUMMARY | 2024-06-08 06:11 | XMS_ITS | Encounter Summary ---
Author Organization [facility] Address [address] [place] [address]. [place], [place] [address] [place] [address] Care Team Providers Care Clinical Pharmacy Technician Name Role Phone Abdon Villela MD Primary Care Provider [phone] Encounter Details Date Type Department Care Team (Late st Contact Info) Description 03/13/2016 9:30 AM CDT Office Visit [facility] [address] [place] [address] Social History Tobacco Use Types Packs/Day Years [...] (Latest Contact Info) Description 06/09/2024 2:20 PM OCCUPATIONAL THERAPIST HOME BASED Telemedicine [facility] Medical Group Multispecialty [facility] [address] [place] [address] Earnest Drake MD [address] [place] [address] 06/21/2024 1:30 AM OCCUPATIONAL THERAPIST HOME BASED Allied Health/Nurse Visit [facility] eld [address] [place] [address] Madan Palomo MD [address] [place] [address] 03/01/2025 11:00 AM CDT Allied Health/Nurse Visit [facility] [place] [place] [address] [place] [address] Norma Rowland PA-C [address] [place], [place] [address] 03/01/2025 11:00 AM CDT Office Visit [facility] [address] [place] [place] [address] Norma Rowland PA-C [address] [place], [place] [address] documented as of this encounter Visit Diagnoses Not on filedocumented in this encounter Care Teams Clinical Pharmacy Technician Relationship Specialty Start Date End Date Abdon Villela MD [address] [place] [address] PCP - General FAMILY PRACTICE 12/17/15 documented as of this encounter
--- OUTSIDE RECORDS SUMMARY | 2024-06-08 06:11 | XMS_ITS | Encounter Summary ---
Author Organization [facility] Address [address] [place] [address]. [place] [address] [place] [address] Care Team Providers Care Strategy Associate Name Role Phone Abdon Villela MD Primary Care Provider [phone] Encounter Details Date Type Department Care Team (Late st Contact Info) Description 02/09/2017 Scan [facility] [address] [place] [address] Scanned, Documents Social History Tobacco Use Types [...] (Latest Contact Info) Description 06/09/2024 2:20 PM TRAVEL ASSISTANT Telemedicine [facility] Medical Group Multispecialty [facility] [address] [place] [address] Earnest Drake MD [address] [place] [address] 06/21/2024 1:30 AM TRAVEL ASSISTANT Allied Health/Nurse Visit [facility] eld [address] [place] [address] Madan Palomo MD [address] [place] [address] 03/01/2025 11:00 AM CDT Allied Health/Nurse Visit [facility] [place] [address] [place] [address] Norma Rowland PA-C [address] [place], [place] [address] 03/01/2025 11:00 AM CDT Office Visit [facility] [address] [place] [address] [place] [address] Norma Rowland PA-C [address] [place] [address] documented as of this encounter Visit Diagnoses Not on filedocumented in this encounter Care Teams Strategy Associate Relationship Specialty Start Date End Date Abdon Villela MD [address] [place] [address] PCP - General FAMILY PRACTICE 12/17/15 documented as of this encounter
--- OUTSIDE RECORDS SUMMARY | 2024-06-08 06:11 | XMS_ITS | Encounter Summary ---
Author Organization [facility] Address [address] [place] [address]. [place] [address] [place] [address] Care Team Providers Care Machine Sewer Name Role Phone Abdon Villela MD Primary Care Provider [phone] Reason for Visit * Reason Onset Date Comments Appointment Request 04/09/2018 Encounter Details Date Type Department Care Team (Late st Contact Info) Description 04/09/2018 Telephone [employer] [facility] [employer] [facility] AT [facility] [address] [place] [address] Clifford Boss MD Appointment Request Social History Tobacco Use [...] as of this encounter Progress Notes * Donell Coffey LPN - 04/09/2018 3:33 PM CDT Avila called in to make his follow up appt as he needed his lisinopril refilled - he is scheduledto see us in [place] on 05/05/18 @12pm. No further questions. documented in this encounter Plan of Treatment Upcoming Encounters Date Type Department Care Team (Latest Contact Info) Description 06/09/2024 2:20 PM LOCKSTITCH COLLAR SETTER Telemedicine [facility] [address] [place] [address] Earnest Drake MD [address] [place], [place] [phone] 06/21/2024 1:30 AM LOCKSTITCH COLLAR SETTER Allied Health/Nurse Visit [facility] [address] [place] [address] Madan Palomo MD [address] [place], [place] [address] 03/01/2025 11:00 AM CDT Allied Health/Nurse Visit [facility] [place] [address] [place] [address] Norma Rowland PA-C [address] [place], [place] [address] 03/01/2025 11:00 AM CDT Office Visit [facility] [place] [address] [place] [address] Norma Rowland PA-C [address] [place], [place] [address] documented as of this encounter Visit Diagnoses Not on filedocumented in this encounter Care Teams Machine Sewer Relationship Specialty Start Date End Date Abdon Villela MD [address] [place] [address] PCP - General FAMILY PRACTICE 12/17/15 documented as of this encounter
--- OUTSIDE RECORDS SUMMARY | 2024-06-08 06:11 | XMS_ITS | Encounter Summary ---
Author Organization [facility] Address [address] [place] [address]. [place], [place] [address] [place] [address] Care Team Providers Care Deputy Fire Marshal Name Role Phone Abdon Villela MD Primary Care Provider [phone] Reason for Visit * Reason Onset Date Comments Heart Problem 06/27/2016 Coleen nation/Dr. Marilou rojas office in [place] called; saw Pt today and wants Dr. Reyes to look at EKG; gave her fax and told her that he was in procedure and would show him when he was finished. Returned Call 06/27/2016 Called office ba ck after Dr. Reyes looked at EKG. Encounter Details Date Type Department Care Team (Late st Contact Info) Description 06/27/2016 Telephone [employer] [facility] [employer] AT [facility] [address] [place] [address] aDlton Reyes MD Heart Problem (Coleen nation/Dr. Villela office in [place] called; saw Pt today and wants Dr. Reyes to look at EKG; gave her fax and told her that he was in procedure and would show him when he was finished.); Returned Call (Called office back after Dr. Reyes looked at EKG.) Social History Tobacco Use Types Packs/Day Years [...] encounter Progress Notes * Lani Mehta - 06/27/2016 4:38 PM CST Called Coleen in Dr. Villela's office back to let her know that Dr. Reyes looked at Pt's EKG and it shows atrial flutter, which he didn't believe to be urgent; however, we will call and get him into the office this month for a f/u appt. Coleen said she would let Dr. Villela know and v/u. INE REPAIRER documented in this encounter Plan of Treatment Upcoming Encounters Date Type Department Care Team (Latest Contact Info) Description 06/09/2024 2:20 PM MACHINE REPAIRER Telemedicine [facility] Medical Group Multispecialty [facility] [address] [place] [address] Earnest Drake MD [address] [place], [place] [phone] 06/21/2024 1:30 AM MACHINE REPAIRER Allied Health/Nurse Visit [facility] [address] [place] [address] Madan Palomo MD [address] [place] [address] 03/01/2025 11:00 AM CDT Allied Health/Nurse Visit [facility] [place] [address] Norma Rowland PA-C [address] [place] [address] 03/01/2025 11:00 AM CDT Office Visit [facility] [address] [place] [address] Norma Rowland PA-C [address] [place] [address] documented as of this encounter Visit Diagnoses Not on filedocumented in this encounter Care Teams Deputy Fire Marshal Relationship Specialty Start Date End Date Abdon Villela MD [address] [place] [address] PCP - General FAMILY PRACTICE 12/17/15 documented as of this encounter
--- OUTSIDE RECORDS SUMMARY | 2024-06-08 06:11 | XMS_ITS | Encounter Summary ---
Author Organization [facility] Address [address] [place] [address]. [place] [address] [place] [address] Care Team Providers Care Electrician Supervisor Name Role Phone Abdon Villela MD Primary Care Provider [phone] Reason for Visit * Reason Onset Date Comments Medication 03/25/2017 Encounter Details Date Type Department Care Team (Late st Contact Info) Description 03/25/2017 Telephone [employer] CARDIOVASCULAR [place] AT [facility] [address] [place] [address] Clifford Boss MD Medication Social History Tobacco Use Types Packs/Day Years [...] encounter Progress Notes * Sherri Nicholson - 03/25/2017 2:32 PM CDT Patient called asking if his medication had been sent to [facility] in [place]. Patient states thathe is almost out of Eliquis. Patient states that he asked that all meds be sent by Dr. Boss. If you have any questions, please call [phone] documented in this encounter Plan of Treatment Upcoming Encounters Date Type Department Care Team (Latest Contact Info) Description 06/09/2024 2:20 PM DANCE HALL HOST/HOSTESS Telemedicine [facility] Medical Group Multispecialty [facility] [address] [place] [address] Earnest Drake MD [address] [place], [place] [id number] 06/21/2024 1:30 AM DANCE HALL HOST/HOSTESS Allied Health/Nurse Visit [facility] [address] [place] [address] Madan Palomo MD [address] [place], [place] [address] 03/01/2025 11:00 AM CDT Allied Health/Nurse Visit [facility] [place] [address] [address] [place] [address] Norma Rowland PA-C [address] [place], [place] [address] 03/01/2025 11:00 AM CDT Office Visit [facility] [place] [address] [address] Norma Rowland PA-C [address] [place] [address] documented as of this encounter Visit Diagnoses Not on filedocumented in this encounter Care Teams Electrician Supervisor Relationship Specialty Start Date End Date Abdon Villela MD [address] [place] [address] PCP - General FAMILY PRACTICE 12/17/15 documented as of this encounter
--- OUTSIDE RECORDS SUMMARY | 2024-06-08 06:11 | XMS_ITS | Encounter Summary ---
Author Organization [facility] Address [address] [place] [address]. [place], [place] [phone] [place] [address] Care Team Providers Care Authorization Nurse Name Role Phone Abdon Villela MD Primary Care Provider [phone] Encounter Details Date Type Department Care Team (Late st Contact Info) Description 03/25/2017 [facility] [address] [place] [address] Shonna Leonardo, RN Social History Tobacco Use [...] (Latest Contact Info) Description 06/09/2024 2:20 PM BATTER DEPOSITOR Telemedicine [facility] Medical Group Multispecialty [facility] [address] [place] [address] Earnest Drake MD [address] [place] [address] 06/21/2024 1:30 AM BATTER DEPOSITOR Allied Health/Nurse Visit [facility] [address] [place] [address] Madan Palomo MD [address] [place] [address] 03/01/2025 11:00 AM CDT Allied Health/Nurse Visit [facility] [place] [address] [place] [address] Norma Rowland PA-C [address] [place], [place] [address] 03/01/2025 11:00 AM CDT Office Visit [facility] [place] [address] [place] [address] Norma Rowland PA-C [address] [place], [place] [address] documented as of this encounter Visit Diagnoses Not on filedocumented in this encounter Care Teams Authorization Nurse Relationship Specialty Start Date End Date Abdon Villela MD [address] [place] [address] PCP - General FAMILY PRACTICE 12/17/15 documented as of this encounter
--- OUTSIDE RECORDS SUMMARY | 2024-06-08 06:11 | XMS_ITS | Encounter Summary ---
Author Organization [facility] Address [address] [place] [address]. [place] [address] [place] [address] Care Team Providers Care Utility Tender Carding Name Role Phone Abdon Villela MD Primary Care Provider [phone] Reason for Visit * Reason Comments Follow Up Encounter Details Date Type Department Care Team (Late st Contact Info) Description 12/18/2015 10:30 AM CDT Office Visit [facility] [address] [place] [address] Dalton Reyes MD Follow Up Social History Tobacco Use Types Packs/Day Years Used Date Smoking Tobacco: Former Cigarettes Q uit: 10/07/1995 Smokeless Tobacco: Never Alcohol Use Standard Drinks/Week [...] Sign Reading Time Taken Comments Blood Pressure 144/88 12/18/2015 11:00 AM CDT Pulse 92 12/18/2015 11:00 AM CDT Temperature - - Respiratory Rate 22 12/18/2015 11:0 0 AM CDT Oxygen Saturation - - Inhaled Oxygen Concentration - - Weight 136.6 kg (301 lb 3.2 oz) 016 11:00 AM CDT Height 179.1 cm (5' 10.5 ) 12/18/2015 1 1:00 AM CDT Body Mass Index 42.61 12/18/2015 11:00 AM CDT documented in this encounter Progress Notes * Dalton Reyes MD - 12/18/2015 11:27 AM CDT HISTORY OF PRESENT ILLNESS: Mr. Fernandez is a very pleasant 70-year-old gentleman with a history of diabetes mellitus, hypertension, high-grade AV block, coronary artery disease, and hyperlipidemia, who presents today for follow-up of his dual-chamber pacemaker placed on May 04, 2013. He reports he has been doing well from a heart rhythm standpoint. He has not had lightheadedness, dizziness, syncope, or presyncope. He is not aware of pacing. He has not had any chest discomfort related to his device. He reports he has had difficulty maintaining his INR in the therapeutic range. His most recent INR was 4.8. He has had some that were subtherapeutic. He is very concerned about bleeding associated with his INR getting out of control like that and he has difficulty determining what his homedose of Warfarin should be. He is currently on Clopidogrel and Warfarin. He is not on Aspirin due to desire to avoid triple therapy. He does have coronary artery disease and did have a stenting procedure in 2010. He has not hadpercutaneous coronary interventions since that time. CARDIOVASCULAR TESTING: Device Interrogation: Interrogation of his device reveals his Medtronic Adapta pacemaker is functioning as programmed. Implant date is 2012. The mode is AAI to DDD with a lower rate 60. Mode switch occurs at 155 bpm. Capture thresholds, sensing, and lead impedance values, are all within appropriate limits. Battery voltage suggests longevity of 10.5 years remaining. A substantial burden of atrial fibrillation has been noted. The longest episode was greater than 96 hours. He has had approximately 31.5% mode switch. IMPRESSION AND PLAN: 1. Atrial Fibrillation: The patient has essentially asymptomatic atrial fibrillation and with pacing does not have episodes of ventricular asystole or syncope. He is doing well from that standpoint. His atrial fibrillation is essentially asymptomatic as he is not aware of any rhythm changes. 2. He is very concerned about his INR being completely out of range and is concerned about bleeding. I discussed with him the options of novel oral anticoagulant now that he has been unable to maintain his INR in the therapeutic range. We will start Eliquis in a dose of 5 mg twice daily and will start that medication when his INR is less than or equal to 2. 3. We will continue to monitor his device trans-telephonically. I would be pleased to see him at any point should anything change from an electrophysiologic standpoint. * Dalton Reyes MD - 12/18/2015 11:08 AM CDT Chief Complaint: Follow Up Recommendations/Plan: History of Present Illness: Medications: Current Outpatient Prescriptions: ??? apixaban 5 MG tablet, Take 1 tablet (5 mg total) by mouth 2 (two) times daily. Patient instructed to start Eliquis on Thursday12/22/15, Disp: 60 tablet, Rfl: 11 ??? aspirin (ALEXIS LOW DOSE) 81 MG Tab EC, Take 1 tablet by mouth daily., Disp: , Rfl: ??? carvedilol 12.5 MG tablet, Take 1 tablet by mouth 2 (two) times daily., Disp: , Rfl: ??? clopidogrel 75 MG tablet, Take 1 tablet by mouth daily., Disp: , Rfl: ??? finasteride 5 MG tablet, Take 1 tablet by mouth daily., Disp: , Rfl: ??? glipiZIDE 10 MG tablet, Take 1 tablet by mouth 2 (two) times daily., Disp: , Rfl: ??? lisinopril-hydrochlorothiazide 20-25 MG per tablet, Take 1 tablet by mouth daily., Disp: , Rfl: ??? metFORMIN 1000 MG tablet, Take 1 tablet by mouth 2 (two) times daily., Disp: , Rfl: ??? nitroGLYCERIN 0.4 MG SL tablet, Take 1 tablet by mouth every 5 (five) minutes as needed., Disp:, Rfl: ??? sitagliptan 100 MG tablet, Take 100 mg by mouth daily., Disp: , Rfl: No Known Allergies Past Medical History Diagnosis Date ??? Coronary artery disease ??? Diabetes mellitus ??? Disorder of prostate ??? Hypertension ??? Other and unspecified hyperlipidemia Past Surgical History Procedure Laterality Date ??? Coronary art dil,one vessel 2010 ??? Inser michael pacer xvenous atrial 05/04/2013 History Social History ??? Marital status: Spouse name: N/A ??? Number of children: 2 ??? Years of education: N/A Occupational History ??? Retired Social History Main Topics ??? Smoking status: Former Smoker Quit date: 10/07/1995 ??? Smokeless tobacco: Never Used ??? Alcohol use: No ??? Drug use: No ??? Sexual activity: Not on file Other Topics Concern ??? Exercise No ??? Special Diet No ??? Caffeine Concern No Social History Narrative Family History Problem Relation Age of Onset ??? Heart Attack Mother Family Status Relation Status ??? Mother Review of Systems Constitutional: Negative for malaise/fatigue and weight loss. HENT: Negative for hearing loss. Eyes: Negative for blurred vision and double vision. Respiratory: Negative for cough, hemoptysis and wheezing. Cardiovascular: Negative for chest pain and palpitations. Gastrointestinal: Negative for blood in stool and melena. Genitourinary: Negative for dysuria. Musculoskeletal: Negative for joint pain and myalgias. Skin: Negative for rash. Neurological: Negative for tingling, sensory change, focal weakness and headaches. Endo/Heme/Allergies: Negative for polydipsia. Does not bruise/bleed easily. Filed Vitals: 12/18/15 1100 BP: 144/88 Pulse: 92 Resp: 22 Weight: (!) 136.6 kg (301 lb 3.2 oz) Height: 5' 10.5 (1.791 m) Physical Exam Constitutional: He is oriented to person, place, and time. He appears well- developed and well-nourished. No distress. HENT: Nose: No mucosal edema. Mouth/Throat: Oropharynx is clear and moist and mucous membranes are normal. No oropharyngeal exudate. Neck: Neck supple. No JVD present. Cardiovascular: Normal rate, regular rhythm, S1 normal, S2 normal and intact distal pulses. PMI is not displaced. Exam reveals no gallop. No murmur heard. Pulmonary/Chest: Effort normal and breath sounds normal. No respiratory distress. Abdominal: Normal appearance. He exhibits no abdominal bruit and no mass. There is no hepatosplenomegaly. There is no tenderness. Musculoskeletal: Normal range of motion. He exhibits no deformity. Neurological: He is alert and oriented to person, place, and time. Skin: Skin is warm and dry. Psychiatric: He has a normal mood and affect. His behavior is normal. Thought content normal. No results found for this visit on 12/18/15. Diagnoses/Impression: 1. Paroxysmal atrial fibrillation PROTHROMBIN TIME, VENOUS 2. Chronic anticoagulation 3. Cardiac pacemaker in situ 4. Sinus node dysfunction PINNACLE Documentation Completed: Atrial Fibrillation Coronary Artery Disease documented in this encounter Plan of Treatment Upcoming Encounters Date Type Department Care Team (Latest Contact Info) Description 06/09/2024 2:20 PM PROGRAM ADVOCATE Telemedicine [facility] Medical Group [facility]pec[facility] [address] [place] [address] Earnest Drake MD [address] [place], [place] [phone] 06/21/2024 1:30 AM PROGRAM ADVOCATE Allied Health/Nurse Visit [facility] [address] [place] [address] Madan Palomo MD [address] [place] [address] 03/01/2025 11:00 AM CDT Allied Health/Nurse Visit [facility] [place] [address] [place] [address] Norma Rowland PA-C [address] [place] [address] 03/01/2025 11:00 AM CDT Office Visit [facility] [place] [place] [address] Norma Rowland PA-C [address] [place] [address] documented as of this encounter Procedures Procedure Name Priority Date/Time Associated Diagnosis Comments PROTHROMBIN TIME, VENOUS Routine 12/18/2015 11:25 AM CDT Paroxysmal atrial fibrillation ([facility]/HCC HHS/HCC) documented in this encounter Results * PROTIME/INR, VENOUS (12/18/2015 11:25 AM CDT) PROTIME WHOLE BLOOD 3.5 INR WHOLE BLOOD 3.5 12/18/2015 11:2 5 AM CDT Dalton Reyes MD LABORATORY Final Resul t documented in this encounter Visit Diagnoses Diagnosis Paroxysmal atrial fibrillation (CMS/HCC HHS/HCC)- Primary Atrial fibrillation Chronic anticoagulation Encounter for long-term (current) use of anticoagulants Cardiac pacemaker in situ Sinus node dysfunction ([facility]/HCC HHS/HCC) Sinoatrial node dysfunction documented in this encounter Care Teams Utility Tender Carding Relationship Specialty Start Date End Date Abdon Villela MD [address] [facility] [place] [address] PCP - General FAMILY PRACTICE 12/17/15 documented as of this encounter
--- OUTSIDE RECORDS SUMMARY | 2024-06-08 06:11 | XMS_ITS | Encounter Summary ---
Author Organization [facility] Address [address] [place] [address]. [address] Care Team Providers Care Log Roper Name Role Phone Abdon Villela MD Primary Care Provider [phone] Encounter Details Date Type Department Care Team (Late st Contact Info) Description 05/28/2017 Scan [facility] [address] [place] [address] Scanned, Documents Social History Tobacco [...] (Latest Contact Info) Description 06/09/2024 2:20 PM AXMINSTER RUG SETTER Telemedicine [facility] Medical Group Multispecialty [facility] [address] [place] [address] Earnest Drake MD [address] [place] [address] 06/21/2024 1:30 AM AXMINSTER RUG SETTER Allied Health/Nurse Visit [facility] [address] [place] [address] Madan Palomo MD [address] [place] [address] 03/01/2025 11:00 AM CDT Allied Health/Nurse Visit [facility] [place] [address] [place] [address] Norma Rowland PA-C [address] [place], [place] [address] 03/01/2025 11:00 AM CDT Office Visit [facility] [place] [address] [place] [address] Norma Rowland PA-C [address] [place] [address] documented as of this encounter Visit Diagnoses Not on filedocumented in this encounter Care Teams Log Roper Relationship Specialty Start Date End Date Abdon Villela MD [address] [place] [address] PCP - General FAMILY PRACTICE 12/17/15 documented as of this encounter
--- OUTSIDE RECORDS SUMMARY | 2024-06-08 06:11 | XMS_ITS | Encounter Summary ---
Author Organization [facility] Address [address] [place] [address]. [place] [address] [place] [address] Care Team Providers Care Drill Instructor Name Role Phone Abdon Villela MD Primary Care Provider [phone] Encounter Details Date Type Department Care Team (Late st Contact Info) Description 03/03/2017 [facility] [address] [place] [address] Clifford Boss MD Social History Tobacco Use Types Packs/Day [...] (Latest Contact Info) Description 06/09/2024 2:20 PM PUMP SERVICER SUPERVISOR Telemedicine [facility] Medical Group Multispecialty [facility] [address] [place] [address] Earnest Drake MD [address] [place] [address] 06/21/2024 1:30 AM PUMP SERVICER SUPERVISOR Allied Health/Nurse Visit [facility] [address] [place] [address] Madan Palomo MD [address] [place] [address] 03/01/2025 11:00 AM CDT Allied Health/Nurse Visit [facility] [place] [place] [address] Norma Rowland PA-C [address] [place], [place] [address] 03/01/2025 11:00 AM CDT Office Visit [facility] [place] [address] [place] [address] Norma Rowland PA-C [address] [place], [place] [address] documented as of this encounter Visit Diagnoses Not on filedocumented in this encounter Care Teams Drill Instructor Relationship Specialty Start Date End Date Abdon Villela MD [address] [place] [address] PCP - General FAMILY PRACTICE 12/17/15 documented as of this encounter
--- OUTSIDE RECORDS SUMMARY | 2024-06-08 06:11 | XMS_ITS | Encounter Summary ---
Author Organization [facility] Address [facility] [facility] [place] [address] [place] [address] Care Team Providers Care Community Health Coordinator Name Role Phone bAdon Villela MD Primary Care Provider [phone] Reason for Referral * Imaging (Emergency) - Closed Specialty Diagnoses / Procedures Referred By Davin humphries Referred To Contact Procedures CT ABD+PEL W IV CON ONLY Sherry Elkins DO [address], [address] [place] [address] Phone: tel: fax: Referral ID Status Reason Start Date Expiration Date Visits Re quested Visits Authorized [id number] Closed 03/13/2018 04/12/2019 1 1 Reason for Visit * Reason Comments Abdominal Pain Chest Pain Encounter Details Date Type Department Care Team (Late st Contact Info) Description 03/13/2018 4:34 AM CDT - 03/13/2018 11:[address] [facility] Emergency [address], [place] [address] Kalani Alvares DO [address] [place] [address] Ezra Gongora MD [address] [place] [address] Abdominal Pain; Chest Pain Discharge Disposition: Home or Self Care [...] Sign Reading Time Taken Comments Blood Pressure 155/78 03/13/2018 9:27 AM CDT Pulse 76 03/13/2018 9:27 AM CDT Temperature 36.8 ??C (98.2 ??F) 03/13/2018 5:09 AM CD T Respiratory Rate 19 03/13/2018 9:27 AM CDT Oxygen Saturation 95% 03/13/2018 9:27 AM CDT Inhaled Oxygen Concentration - - Weight 134.3 kg (296 lb) 03/13/2018 4:53 AM CDT Height 175.3 cm (5' 9 ) 03/13/2018 4:37 AM CDT Body Mass Index 43.71 03/13/2018 4:37 AM CDT documented in this encounter Discharge Instructions * Discharge Instructions* Sherry Elkins MD - 03/13/2018 8:59 AM CDT Follow-up with your doctor as discussed. Return to the ER for any new or worsening signs or symptoms such as chest pain, shortness of breath, or any other concerns. * Attachments The following attachments cannot be sent through Care Everywhere. * HEART FAILURE DISCHARGE INSTRUCTIONS, ADULT ([place]) documented in this encounter Medications at Time of Discharge metFORMIN 1000 MG tablet Take 1 tablet (1,000 mg total) by mouth 2 (two) times daily. 09/13/2014 aspirin EC 81 MG tablet Take 1 tablet (81 mg total) by mouth daily. 09/13/2014 01/17/2023 atorvastatin 80 MG tablet Take 1 tablet (80 mg total) by mouth daily. 90 tablet 3 03/25/2017 05/25/2018 BYDUREON 2 MG Pen-injector PEN 12/01/2017 03/02/20 carvedilol 12.5 MG tablet Take 1 tablet (12.5 mg total) by mouth 2 (two) times daily. 180 tablet 3 03/25/2017 05/25/2018 ELIQUIS 5 MG tablet TAKE 1 TABLET BY MOUTH TWICE DAILY 60 tablet 11 10/26/2017 10/19/2018 glipiZIDE 10 MG tablet Take 1 tablet (10 mg total) by mouth 2 (two) times daily. 09/13/2014 07/31/2023 hydrochlorothiazi de 25 MG tablet Take 1 tablet (25 mg total) by mouth daily. 90 tablet 3 03/25/2017 01/21/2023 lisinopril 40 MG tablet Take 1 tablet (40 mg total) by mouth daily. 90 tablet 3 03/25/2017 04/09/2018 nitroGLYCERIN 0.4 MG SL tablet Take 1 tablet (0.4 mg total) by mouth every 5 (five) minutes as needed. 04/30/2015 07/27/2023 documented as of this encounter ED Notes * Sherry Elkins MD - 03/13/2018 4:59 AM CDT Emergency Department Note Chief Complaint Chief Complaint Patient presents with ??? Abdominal Pain ??? Chest Pain History of Present Illness Annie Crocker is a 72-year-old male was coronary artery disease presenting with abdominal pain described as constant, dull, 1 out of 10, and located on bilateral flanks. Symptoms started 5 hours prior to arrival and are constant. Associated symptoms include chest discomfort when taking a deep breath and abdominal distention. He denies fever/chills, nausea/vomiting, lightheadedness, chest painthat radiates, exertional symptoms, dysuria, diarrhea, constipation, bloody or black tarry bowel movements, or hematuria. Medical History ALLERGIES: No Known Allergies MEDICATIONS: Prior to Admission medications Medication Sig Start Date End Date Taking? Authorizing Provider aspirin (ALEXIS LOW DOSE) 81 MG Tab EC Take 1 tablet by mouth daily. 09/13/14 Yes Doc Abstract atorvastatin 80 MG tablet Take 1 tablet (80 mg total) by mouth daily. 03/25/17 Yes Clifford Boss MD carvedilol 12.5 MG tablet Take 1 tablet (12.5 mg total) by mouth 2 (two) times daily. 03/25/17 Yes Clifford Boss MD ELIQUIS 5 MG tablet TAKE 1 TABLET BY MOUTH TWICE DAILY 10/26/17 Yes Dalton Reyes MD glipiZIDE 10 MG tablet Take 1 tablet by mouth 2 (two) times daily. 09/13/14 Yes Doc Abstract lisinopril 40 MG tablet Take 1 tablet (40 mg total) by mouth daily. 03/25/17 Yes Clifford Boss MD metFORMIN 1000 MG tablet Take 1 tablet by mouth 2 (two) times daily. 09/13/14 Yes Doc Abstract hydrochlorothiazide 25 MG tablet Take 1 tablet (25 mg total) by mouth daily. 03/25/17 Clifford Boss MD nitroGLYCERIN 0.4 MG SL tablet Take 1 tablet by mouth every 5 (five) minutes as needed. 04/30/15 DocAbstract PAST MEDICAL HISTORY: Past Medical History: Diagnosis Date ??? Coronary artery disease ??? Diabetes mellitus ??? Disorder of prostate ??? Hyperlipidemia ??? Hypertension PAST SURGICAL HISTORY: Past Surgical History: Procedure Laterality Date ??? CORONARY ART DIL,ONE VESSEL 2010 ??? INSER COBIAN PACER XVENOUS ATRIAL 05/04/2013 FAMILY HISTORY: Family History Problem Relation Age of Onset ??? Heart Attack Mother SOCIAL HISTORY: Social History Tobacco Use ??? Smoking status: Former Smoker Packs/day: 1.00 Types: Cigarettes, Pipe Start date: 02/14/1966 Last attempt to quit: 10/07/1995 Years since quittin.4 ??? Smokeless tobacco: Never Used Substance Use Topics ??? Alcohol use: No ??? Drug use: No Review of Systems Review of Systems Constintutional symptoms: No fever, no chills Skin systems: No rash Eye symptoms: No change in vision ENMT: No sore throat Respiratory symptoms: Positive for pleuritic chest pain. Cardiovascular symptoms: Negative for palpitations Gastrointestinal symptoms: Positive for abdominal pain and bloating Genitourinary symptoms: No dysuria, no hematuria Musculoskeletal symptoms: No back pain Neurologic symptoms: No dizziness Physical Exam Filed Vitals: 03/13/18 0437 03/13/18 0453 03/13/18 0509 03/13/18 0700 BP: 163/82 156/63 Pulse: 82 88 60 Resp: 14 17 Temp: 98.2 ??F (36.8 ??C) TempSrc: Oral SpO2: 98% 96% 95% Weight: 134.3 kg (296 lb) Height: 5' 9 (1.753 m) Physical Exam Constitutional: He is oriented to person, place, and time. He appears well- developed and well-nourished. No distress. HENT: Head: Normocephalic and atraumatic. Mouth/Throat: Oropharynx is clear and moist. Eyes: Conjunctivae and EOM are normal. Pupils are equal, round, and reactive to light. Neck: Normal range of motion. Neck supple. No JVD present. Cardiovascular: Normal rate, regular rhythm and intact distal pulses. Exam reveals no gallop and nofriction rub. No murmur heard. Pulmonary/Chest: Effort normal and breath sounds normal. Abdominal: Soft. Bowel sounds are normal. He exhibits distension (Mild). There is tenderness (Mild diffuse tenderness). There is no rebound and no guarding. Musculoskeletal: Normal range of motion. He exhibits no edema or deformity. Neurological: He is alert and oriented to person, place, and time. Skin: Skin is warm and dry. Nursing note and vitals reviewed. Diagnostic Studies / Procedures ELECTROCARDIOGRAMS: Results for orders placed or performed during the hospital encounter of 03/13/18 ECG 12 lead Narrative SJS-ED Test Date: 2018-03-13 Pat Name: ANNIE CROCKER Department: 70 Room: EXAM BB Gender: Male [place] Aide: DSTEFGE : 1945 Requested By: KALANI ALVARES Order Number: [id number] Reading MD: Measurements Intervals [place] Rate: 87 P: MD: 0 QRS: -73 QRSD: 182 T: 98 QT: 411 QTc: 497 Interpretive Statements ELECTRONIC VENTRICULAR PACEMAKER ABNORMAL RHYTHM ECG LABORATORY STUDIES: Results for orders placed or performed during the hospital encounter of 03/13/18 CBC W/DIFF AUTOMATED Result Value Ref Range WBC 11.2 (H) 4.0 - 10.8 x10'3/uL RBC 5.00 4.50 - 6.10 x10'6/uL HGB 13.2 13.0 - 18.0 G/DL HCT 42.1 37.0 - 52.0 % MCV 84.2 78.0 - 100.0 FL MCH 26.4 (L) 27.0 - 31.0 PG MCHC 31.4 (L) 33.0 - 36.0 G/DL RDW 15.6 (H) 11.5 - 14.5 % PLT 204 150 - 350 x10'3/uL MPV 11.9 (H) 7.4 - 10.4 FL ABS. NEUTROPHILS TOTAL 8.33 (H) 1.60 - 8.30 x10'3/uL ABS. LYMPHOCYTES 1.71 0.80 - 4.70 x10'3/uL ABS. MONOCYTES 0.85 0.00 - 1.50 x10'3/uL ABS. EOSINOPHILS 0.22 0.00 - 0.40 x10'3/uL ABS. BASOPHILS 0.06 0.00 - 0.20 x10'3/uL ABS. IMMATURE GRANULOCYTES 0.04 (H) 0.00 - 0.03 x10'3/uL ABS. NUCLEATED RBC'S 0.00 0.0 x10'3/uL BASIC METABOLIC PANEL Result Value Ref Range SODIUM 139 136 - 145 MMOL/L POTASSIUM 4.0 3.5 - 5.1 MMOL/L CHLORIDE 108 (H) 98 - 107 MMOL/L CO2 19.9 (L) 21.0 - 32.0 MMOL/L GLUCOSE 114 (H) 74 - 106 MG/DL BUN 20 (H) 7 - 18 MG/DL CREATININE 0.96 0.70 - 1.30 MG/DL CALCIUM 9.4 8.4 - 10.5 MG/DL ANION GAP 11.1 MMOL/L OSMOLALITY (CALC) 291 MOSM/KG eGFR Non-Afr. Amer. 78 (L) >90 ML/MIN/1.73 M2 eGFR Afr. Amer. >90 >90 ML/MIN/1.73 M2 HEPATIC FUNCTION PANEL Result Value Ref Range TOTAL BILIRUBIN 0.9 0.2 - 1.0 MG/DL DIRECT BILIRUBIN 0.3 (H) 0.0 - 0.2 MG/DL ALK PHOS 91 45 - 115 U/L AST 26 15 - 37 U/L ALT 24 16 - 61 U/L TOTAL PROTEIN 7.4 6.4 - 8.2 G/DL ALBUMIN 3.8 3.4 - 5.0 G/DL LIPASE Result Value Ref Range LIPASE 118 73 - 393 UNITS/L TROPONIN, QUANT Result Value Ref Range TROPONIN I 0.038 <0.045 ng/mL. PRO-BRAIN NATRIURETIC PEPTIDE Result Value Ref Range Pro-B TYPE NATRIURETIC PEPTIDE 3,210 (H) <125 PG/ML IMAGING STUDIES CT ABD+PEL W IV CON ONLY Final Result by User, [id number] (03/13 659) EXAMINATION: CT Abdomen and Pelvis with contrast CLINICAL HISTORY: Abdominal pain and bloating COMPARISON: None TECHNIQUE: Computed tomography of the abdomen and pelvis was obtained after administration of intravenous contrast, 100 mL of Isovue-370, without immediate complication according to routine protocol. A dose lowering technique was used for this procedure, which may include, but is not limited to, dose reduction technique, automated exposure control, the use of iterative reconstruction, and ALARA (As Low As Reasonably Achievable) / Image Gently techniques. FINDINGS: No free fluid or free air within the abdomen or pelvis. Liver, gallbladder, biliary tracts, spleen, kidneys, adrenal glands, and pancreas are unremarkable. Prostate is enlarged. Partially distended bladder are unremarkable. Gastrointestinal tract reveals no evidence of obstruction or other significant pathology. Central garrison mesentery is noted with associated mildly prominent nonconfluent lymph nodes, findings most compatible with mesenteric panniculitis. There is a small-moderate fat filled periumbilical hernia. Major vascular structures are of normal course and caliber with mild to moderate wall calcifications in the abdominal aorta and iliac arteries. Visible lung bases show mild dependent atelectasis and some scarring. Visible bones reveal no suspicious lytic or blastic lesions. There is diffuse osteopenia. IMPRESSION: 1. No compelling evidence of an acute abdominopelvic process. 2. Mesenteric panniculitis. 3. Prostatomegaly. Interpreted By: Ramu Lynn MD, 03/13/2018 6:54 AM Order Doctor: SHERRY ELKINS XR CHEST PORTABLE Final Result by User, [id number] (03/13 1952) Examination: Portable chest radiograph. Clinical History: Chest pain, pacemaker Comparison studies: None Findings: Dual lead cardiac pacer noted. Mild-moderate elevation of the right hemidiaphragm. Prominent interstitial and pulmonary venous markings. Linear scar versus linear atelectasis at the left lower lobe. No focal consolidation, significant pleural effusion or pneumothorax. Heart size at the upper limits of normal for technique. Mediastinal contours within normal limits. Bony thorax significant for mild multilevel thoracic spondylosis. Impression: Probable mild interstitial edema and pulmonary venous congestion. Interpreted By: Ramu Lynn MD, 03/13/2018 5:19 AM Order Doctor: SHERRY ELKINS ED Course / Medical Decision Making Patient presents with bilateral lower abdominal pain. Chest tightness only when taking a deep breath. No exertional symptoms. Vital signs within normal limits, afebrile. Will obtain labs, EKG, and CTabdomen pelvis. 325 mg aspirin given. ED Course as of Mar 13 2159 Sat Mar 13, 2018 0855 Mild pulmonary vascular congestion on chest x-ray. 40 mg IV Lasix given. Patient does have elevated proBNP. No evidence of respiratory distress. No clear cause of abdominal pain at this time. Awaiting UA. Patient care transition to Dr. Gongora pending final results. [KG] 1121 Endorsed me awaiting urinalysis. This is fairly unremarkable. Patient has a large amount of urine output. He feels better. Discussed all results with him. He is comfortable going home. He does have a diuretic at home that he has not been taking. Encouraged him to restart this. [JS] ED Course User Index [JS] Ezra Gongora MD [KG] Sherry Elkins MD EKG negative for ischemia. Troponin negative. CT abdomen pelvis shows mesenteric panniculitis, no other acute findings. Chest x-ray negative. Medications furosemide (LASIX) injection 40 mg (not administered) lactated ringers bolus infusion 1,000 mL (1,000 mLs Intravenous New Bag 03/13/18514) aspirin chewable tablet 324 mg (324 mg Oral Given 03/13/18514) iopamidol (ISOVUE-370) 76 % injection 100 mL (100 mLs Intravenous Given 03/13/18 0641) Clinical Impression Acute CHF (Primary) Abdominal pain Current Discharge Medication List Staffed with Dr. Alvares Disposition: Discharge Follow Up: Abdon Villela MD [address] [place] [address] Schedule an appointment as soon as possible for a visit in 2 days SHERRY ELKINS MD 03/13/2018 Cosigned by Kalani Alvares DO at 03/14/2018 7:07 PM CDT Associated attestation - Kalani Alvares DO - 03/14/2018 7:07 PM CDT Teaching Physician - I, KALANI ALVARES DO, performed a History and Physical examination of thepatient and discussed the management with the resident. I reviewed the Resident's note and agree with the findings and plan of care, except as I have documented. * Dayanna Gutiérrez RN - 03/13/2018 4:41 AM CDT Patient arrives a call A to room B with complaints of pain across his lower chest/upper abdomen. Patient reports that its like a pressure that makes it hard to breathe. Patient has cardiac history but this doesn't feel like his prior heart attacks. documented in this encounter Plan of Treatment Upcoming Encounters Date Type Department Care Team (Latest Contact Info) Description 06/09/2024 2:20 PM [facility] Telemedicine [facility] [address] [place] [address] Earnest Drake MD [address] [place] [address] 06/21/2024 1:30 AM [facility] [facility] Allied Health/Nurse Visit [facility] [address] [place] [address] [phone] Madan Palomo MD [address] [place] [address] 03/01/2025 11:00 AM CDT Allied Health/Nurse Visit [facility] [place] [address] [place] [address] Norma Rowland PA-C [address] [place] [address] 03/01/2025 11:00 AM CDT Office Visit [place] [address] [place] [address] Norma Rowland PA-C [address] [place], [place] [phone] documented as of this encounter Procedures Procedure Name Priority Date/Time Associated Diagnosis Comments URINALYSIS Nurse Collected Priority 03/13/2018 9:[address] ABD+PEL W CON STAT 03/13/2018 6:41 AM CDT XR CHEST PORTABLE STAT 03/13/2018 5:1 1 AM CDT PRO-BRAIN NATRIURETIC PEPTIDE STAT 03/13/2018 4:41 AM CDT BASIC METABOLIC PANEL STAT 03/13/2018 4:41 AM CDT HEPATIC FUNCTION PANEL STAT 03/13/2018 4:41 AM CDT CBC W/DIFF AUTOMATED STAT 03/13/2018 4:41 AM CDT TROPONIN, QUANT STAT 03/13/2018 4:41 AM CDT LIPASE STAT 03/13/2018 4:41 AM CDT ECG 12-LEAD STAT 03/13/2018 4:36 AM CDT documented in this encounter Results * (ABNORMAL) URINALYSIS (03/13/2018 9:39 AM CDT) COLOR (U) LIGHT YELLOW 03/13/2018 10:33 AM CDT [facility] TRANSPARENCY CLEAR 03/13/2018 10:33 AM CDT [facility] SPECIFIC GRAVITY (U) 1.038(H) 1.002 - 1.035 03/13/2018 10:33 AM CDT [facility] U PH 5.0 5 - 8 03/13/2018 10:33 AM CDT [facility] PROTEIN (U) NEGATIVE NEGATIVE 03/13/2018 10:33 AM CDT [facility] URINE GLUCOSE NEGATIVE NEGATIVE MG/DL 03/13/2018 10:33 AM CDT [facility] KETONES MG/DL (U) NEGATIVE NEGATIVE 03/13/2018 10:33 AM CDT [facility] BILIRUBIN (U) NEGATIVE NEGATIVE 03/13/2018 10:33 AM CDT [facility] BLOOD (U) NEGATIVE NEGATIVE 03/13/2018 10:33 AM CDT [facility] NITRITES NEGATIVE NEGATIVE 03/13/2018 10:33 AM CDT [facility] UROBILINOGEN NORMAL 0 - 1 EU/DL 03/13/2018 10:33 AM CDT [facility] LEUKOCYTES (U) NEGATIVE NEGATIVE 03/13/2018 10:33 AM CDT [facility] RBC/HPF 2 0 - 3 /HPF 03/13/2018 10:33 AM CDT [facility] WBC/HPF 1 0 - 6 /HPF 03/13/2018 10:33 AM CDT [facility] BACTERIA (U) NONE /HPF 03/13/2018 10:33 AM CDT [facility] URINE SPECIMEN OBTAINED BY CLEAN CATCH PROCEDURE / Unknown 03/13/2018 9:39 AM CDT Sherry Elkins DO URINE ORDERABLES Final Re sult [facility] [address] [place] [address], [id number] * CT ABD+PEL W IV CON ONLY (03/13/2018 6:41 AM CDT) Anatomical Region Laterality Modality Abdomen Computed Tomogra phy 03/13/2018 6:54 AM CDT Impressions 03/13/2018 6:58 AM CDT IMPRESSION: 1. No compelling evidence of an acute abdominopelvic process. 2. Mesenteric panniculitis. 3. Prostatomegaly. Interpreted By: Ramu Lynn MD, 03/13/2018 6:54 AM Order Doctor: SHERRY ELKINS Narrative 03/13/2018 6:58 AM CDT EXAMINATION: CT Abdomen and Pelvis with contrast CLINICAL HISTORY: Abdominal pain and bloating COMPARISON: None TECHNIQUE: Computed tomography of the abdomen and pelvis was obtained after administration of intravenous contrast, 100 mL of Isovue-370, without immediate complication according to routine protocol. A dose lowering technique was used for this procedure, which may include, but is not limited to, dose reduction technique, automated exposure control, the use of iterative reconstruction, and ALARA (As Low As Reasonably Achievable) / Image Gently techniques. FINDINGS: No free fluid or free air within the abdomen or pelvis. Liver, gallbladder, biliary tracts, spleen, kidneys, adrenal glands, and pancreas are unremarkable. Prostate is enlarged. Partially distended bladder are unremarkable. Gastrointestinal tract reveals no evidence of obstruction or other significant pathology. Central garrison mesentery is noted with associated mildly prominent nonconfluent lymph nodes, findings most compatible with mesenteric panniculitis. There is a small-moderate fat filled periumbilical hernia. Major vascular structures are of normal course and caliber with mild to moderate wall calcifications in the abdominal aorta and iliac arteries. Visible lung bases show mild dependent atelectasis and some scarring. Visible bones reveal no suspicious lytic or blastic lesions. There is diffuse osteopenia. Procedure Note Ramu Lynn MD - 03/13/2018 EXAMINATION: CT Abdomen and Pelvis with contrast CLINICAL HISTORY: Abdominal pain and bloating COMPARISON: None TECHNIQUE: Computed tomography of the abdomen and pelvis was obtainedafter administration of intravenous contrast, 100 mL of Isovue-370, without immediate complication according to routine protocol. A dose lowering technique was used for this procedure, which mayinclude, but is not limited to, dose reduction technique, automated exposure control, the use of iterative reconstruction, and ALARA (As Low As Reasonably Achievable) / Image Gently techniques. FINDINGS: No free fluid or free air within the abdomen or pelvis. Liver, gallbladder, biliary tracts, spleen, kidneys, adrenal glands, and pancreas are unremarkable. Prostate is enlarged. Partially distended bladder are unremarkable. Gastrointestinal tract reveals no evidence of obstruction or other significant pathology. Central garrison mesentery is noted with associated mildly prominent nonconfluent lymph nodes, findings most compatible with mesenteric panniculitis. There is a small-moderate fat filled periumbilical hernia. Major vascular structures are of normal course and caliber with mild to moderate wall calcifications in the abdominal aorta and iliac arteries. Visible lung bases show mild dependent atelectasis and some scarring. Visible bones reveal no suspicious lytic or blastic lesions. There is diffuse osteopenia. IMPRESSION: 1. No compelling evidence of an acute abdominopelvic process. 2. Mesenteric panniculitis. 3. Prostatomegaly. Interpreted By: Ramu Lynn MD, 03/13/2018 6:54 AM Order Doctor: SHERRY ELKINS us Sherry Elkins DO CT Final Res ult * XR CHEST PORTABLE (03/13/2018 5:11 AM CDT) Anatomical Region Laterality Modality Chest Radiographic Betsey ging 03/13/2018 5:19 AM CDT Impressions 03/13/2018 5:22 AM CDT Impression: Probable mild interstitial edema and pulmonary venous congestion. Interpreted By: Ramu Lynn MD, 03/13/2018 5:19 AM Order Doctor: SHERRY ELKINS Narrative 03/13/2018 5:22 AM CDT Examination: Portable chest radiograph. Clinical History: Chest pain, pacemaker Comparison studies: None Findings: Dual lead cardiac pacer noted. Mild-moderate elevation of the right hemidiaphragm. Prominent interstitial and pulmonary venous markings. Linear scar versus linear atelectasis at the left lower lobe. No focal consolidation, significant pleural effusion or pneumothorax. Heart size at the upper limits of normal for technique. Mediastinal contours within normal limits. Bony thorax significant for mild multilevel thoracic spondylosis. Procedure Note Ramu Lynn MD - 03/13/2018 Examination: Portable chest radiograph. Clinical History: Chest pain, pacemaker Comparison studies: None Findings: Dual lead cardiac pacer noted. Mild-moderate elevation of the right hemidiaphragm. Prominent interstitial and pulmonary venousmarkings. Linear scar versus linear atelectasis at the left lower lobe. No focal consolidation, significant pleural effusion or pneumothorax. Heart sizeat the upper limits of normal for technique. Mediastinal contours within normal limits. Bony thorax significant for mild multilevel thoracic spondylosis. Impression: Probable mild interstitial edema and pulmonary venous congestion. Interpreted By: Ramu Lynn MD, 03/13/2018 5:19 AM Order Doctor: SHERRY ELIKNS us Sherry Elkins DO GENERAL IMAGING Final Res ult * (ABNORMAL) PRO-BRAIN NATRIURETIC PEPTIDE (03/13/2018 4:41 AM CDT) PRO-B TYPE NATRIURETIC PEPTIDE 3,210(H) <125 PG/ML 03/13/2018 5:34 AM CDT [facility] Comment: AGE INDEPENDENT: <300 PG/ML HAS A 99% NEGATIVE PREDICTIVE VALUE FOR EXCLUDING ACUTE CHF <50 YEARS: >450 PG/ML IS CONSISTENT WITH ACUTE CHF 50-75 YEARS: >900 PG/ML IS CONSISTENT WITH ACUTE CHF >75 YEARS: >1800 PG/ML IS CONSISTENT WITH ACUTE CHF IN PATIENTS WITH RENAL INSUFFICIENCY (GFR <60), >1200 PG/ML YIELDS A DIAGNOSTIC SENSITIVITY AND SPECIFICITY OF 89% AND 72% FOR ACUTE CHF. 03/13/2018 4:41 AM CDT [facility] LABORATORY Final Res ult Performing Organization Address [facility] Co de Phone Number [facility] [address] [place] [address], [place] [phone] * TROPONIN, QUANT (03/13/2018 4:41 AM CDT) TROPONIN I 0.038 <0.045 ng/mL. 03/13/2018 5:34 AM CDT [facility] 03/13/2018 4:41 AM CDT Critical [facility] LABORATORY Final Res ult Performing Organization Address [facility] de Phone Number [facility] [address] [place] [address], [place] [phone] * LIPASE (03/13/2018 4:41 AM CDT) LIPASE 118 73 - 393 UNITS/L 03/13/2018 5:34 AM CDT [facility] 03/13/2018 4:41 AM CDT [facility] LABORATORY Final Res ult Performing Organization Address [facility] Co de Phone Number [facility] [address] [place] [address], [place] [phone] * (ABNORMAL) HEPATIC FUNCTION PANEL (03/13/2018 4:41 AM CDT) BILIRUBIN TOTAL S/P/B 0.9 0.2 - 1.0 MG/DL 03/13/2018 5:34 AM CDT [facility] BILIRUBIN DIRECT S/P/B 0.3(H) 0.0 - 0.2 MG/DL 03/13/2018 5:34 AM CDT [facility] ALKALINE PHOSPHATASE S/P/B 91 45 - 115 U/L 03/13/2018 5:34 AM CDT [facility] AST 26 15 - 37 U/L 03/13/2018 5:34 AM CDT [facility] ALT 24 16 - 61 U/L 03/13/2018 5:34 AM CDT [facility] TOTAL PROTEIN S/P/B 7.4 6.4 - 8.2 G/DL 03/13/2018 5:34 AM CDT [facility] ALBUMIN S/P/B 3.8 3.4 - 5.0 G/DL 03/13/2018 5:34 AM CDT [facility] 03/13/2018 4:41 AM CDT us Sherry Elkins DO LABORATORY Final Res ult [facility] [address] [place] [address], [id number] * (ABNORMAL) BASIC METABOLIC PANEL (03/13/2018 4:41 AM CDT) SODIUM S/P/B 139 136 - 145 MMOL/L 03/13/2018 5:34 AM CDT [facility] POTASSIUM S/P/B 4.0 3.5 - 5.1 MMOL/L 03/13/2018 5:34 AM CDT [facility] CHLORIDE S/P/B 108(H) 98 - 107 MMOL/L 03/13/2018 5:[address] [facility] CO2 19.9(L) 21.0 - 32.0 MMOL/L 03/13/2018 5:[address] [facility] GLUCOSE 114(H) 74 - 106 MG/DL 03/13/2018 5:[address] [facility] BUN 20(H) 7 - 18 MG/DL 03/13/2018 5:[address] [facility] CREATININE S/P/B 0.96 0.70 - 1.30 MG/DL 03/13/2018 5:[address] [facility] CALCIUM S/P/B 9.4 8.4 - 10.5 MG/DL 03/13/2018 5:[address] [facility] ANION GAP 11.1 MMOL/L 03/13/2018 5:[address] [facility] Comment:REFERENCE RANGE NOT ESTABLISHED OSMOLALITY (CALC) 291 MOSM/KG 018 5:[address] [facility] Comment:REFERENCE RANGE NOT ESTABLISHED EGFR NON-AFR. AMER. 78(L) >90 ML/MIN/1. 73 M2 03/13/2018 5:[address] [facility] Comment: THE ESTIMATED GFR IS [...] ml/min/1.73 m2 G5,KIDNEY FAILURE: <15 ml/min/1.73 m2 EGFR AFR. AMER. >90 >90 ML/MIN/1. 73 M2 03/13/2018 5:[address] [facility] Comment: THE ESTIMATED GFR IS [...] ml/min/1.73 m2 G5,KIDNEY FAILURE: <15 ml/min/1.73 m2 03/13/2018 4:41 AM CDT us Sherry Elkins DO LABORATORY Final Res ult [facility] [address] [place] [address], [place] [phone] [id number] * (ABNORMAL) CBC W/DIFF AUTOMATED (03/13/2018 4:41 AM CDT) WBC 11.2(H) 4.0 - 10.8 x10'3/uL 03/13/2018 5:11 AM CDT [facility] RBC 5.00 4.50 - 6.10 x10'6/uL 03/13/2018 5:11 AM CDT [facility] HGB 13.2 13.0 - 18.0 G/DL 03/13/2018 5:11 AM CDT [facility] HCT 42.1 37.0 - 52.0 % 03/13/2018 5:11 AM CDT [facility] MCV 84.2 78.0 - 100.0 FL 03/13/2018 5:11 AM CDT [facility] MCH 26.4(L) 27.0 - 31.0 PG 03/13/2018 5:11 AM CDT [facility] MCHC 31.4(L) 33.0 - 36.0 G/DL 03/13/2018 5:11 AM CDT [facility] RDW 15.6(H) 11.5 - 14.5 % 03/13/2018 5:11 AM CDT [facility] PLT 204 150 - 350 x10'3/uL 03/13/2018 5:11 AM CDT [facility] MPV 11.9(H) 7.4 - 10.4 FL 03/13/2018 5:11 AM CDT [facility] ABS. NEUTROPHILS TOTAL 8.33(H) 1.60 - 8.30 x10'3/uL 03/13/2018 5:11 AM CDT [facility] ABS. LYMPHOCYTES 1.71 0.80 - 4.70 x10'3/uL 03/13/2018 5:11 AM CDT [facility] ABS. MONOCYTES 0.85 0.00 - 1.50 x10'3/uL 03/13/2018 5:11 AM CDT [facility] ABS. EOSINOPHILS 0.22 0.00 - 0.40 x10'3/uL 03/13/2018 5:11 AM CDT [facility] ABS. BASOPHILS 0.06 0.00 - 0.20 x10'3/uL 03/13/2018 5:11 AM CDT [facility] ABS. IMMATURE GRANULOCYTES 0.04(H) 0.00 - 0.03 x10'3/uL 03/13/2018 5:11 AM CDT [facility] ABS. NUCLEATED RBC'S 0.00 0.0 x10'3/uL 03/13/2018 5:11 AM CDT [facility] 03/13/2018 4:41 AM CDT us Sherry Elkins DO LABORATORY Final Res ult [facility] [address] [place] [address], [id number] * ECG 12 lead (03/13/2018 4:36 AM CDT) 03/13/2018 4:36 AM CDT Narrative [facility] - 03/14/2018 3:44 PM CDT ?SJS-ED ? Test Date: ?2018-03-13 Pat Name: ? ANNIE CROCKER ?Department: ?? 70 ? Room: ? EXAM BB Gender: ? Male ? [place] Aide: ?? DSTEFANCIC : ?1945 ? Requested By: KALANI ALVARES Order Number: [id number] ? Reading MD: ?? Clifford Boss ? Measurements Intervals ?[place] ? Rate: ? 87 ? P: ? MD: ? 0 ?QRS: ?-73 QRSD: ? 182 ?T: ?98 QT: ? 411 ? QTc: ?497 ? Interpretive Statements ELECTRONIC VENTRICULAR PACEMAKER ABNORMAL RHYTHM ECG Procedure Note Clifford Boss MD - 03/14/2018 [facility]-ED Test Date: 2018-03-13 Pat Name: ANNIE MESCALERO Department: 70 Room: EXAM BB Gender: Male [place] Aide: ZACK : 1945 Requested By: KALANI ALVARES Order Number: [id number] Reading MD: Clifford Boss Measurements Intervals [place] Rate: 87 P: MD: 0 QRS: -73 QRSD: 182 T: 98 QT: 411 QTc: 497 Interpretive Statements ELECTRONIC VENTRICULAR PACEMAKER ABNORMAL RHYTHM ECG us Kalani Alvares DO ECG ORDERABLES Final Resu lt [facility] documented in this encounter Visit Diagnoses Diagnosis Acute CHF (CMS/HCC [facility])- Primary Congestive heart failure, unspecified Abdominal pain Abdominal pain, unspecified site documented in this encounter Administered Medications Inactive Administered Medications - up to 3 most recent administrations Medication Order MAR Action Action Date Dose Rate Site aspirin chewable tablet 324 mg 324 mg, Oral, Once, 1 dose, On 03/13/18 at 0515 Given 03/13/2018 5:15 AM CDT 324 mg furosemide (LASIX) injection 40 mg 40 mg, Intravenous, Once, 1 dose, On 03/13/18 at 0900, Administer IV push 20-40mg/min. Given 03/13/2018 9:26 AM CDT 40 mg iopamidol (ISOVUE-370) 76 % injection 100 mL 100 mL, Intravenous, IMG once as needed, Contrast, 1 dose, Starting on 03/13/18 at 0641, Until 03/13/18 at 0641 Given 03/13/2018 6:41 AM CDT 100 mLs lactated ringers bolus infusion 1,000 mL 1,000 mL, Intravenous, Administer over 15 Minutes, Once, 1 dose, On 03/13/18 at 0515 New Bag 03/13/2018 5:15 AM CDT 1,000 mLs documented in this encounter Active and Recently Administered Medications Times are shown in CDT. Scheduled Medication Order 03/11/2018 03/12/2018 03/13/2018 aspirin chewable tablet 324 mg (COMPLETED) 324 mg, Oral, Once, 1 dose, On 03/13/18 at 0515 0515 (Given - Provid er: Dayanna Gutiérrez RN) furosemide (LASIX) injection 40 mg (COMPLETED) 40 mg, Intravenous, Once, 1 dose, On 03/13/18 at 0900, Administer IV push 20-40mg/min. 09 (Given - Provid er: Haresh Larios RN) lactated ringers bolus infusion 1,000 mL (COMPLETED) 1,000 mL, Intravenous, Administer over 15 Minutes, Once, 1 dose, On 03/13/18 at 0515 0515 (New Bag - Prov ider: Dayanna Gutiérrez RN)925 (Infusion Stop Time - Provider: Haresh Larios RN) PRN Medication Order 03/11/2018 03/12/2018 03/13/2018 iopamidol (ISOVUE-370) 76 % injection 100 mL (COMPLETED) 100 mL, Intravenous, IMG once as needed, Contrast, 1 dose, Starting on 03/13/18 at 0641, Until 03/13/18 at 0641 0641 (Given - Provid er: Dalton Baez, RTR) documented in this encounter Care Teams Community Health Coordinator Relationship Specialty Start Date End Date Abdon Villela MD [address] [place] [address] PCP - General FAMILY PRACTICE 12/17/15 documented as of this encounter
--- OUTSIDE RECORDS SUMMARY | 2024-06-08 06:11 | XMS_ITS | Encounter Summary ---
Author Organization [facility] Address [address] [place] [address]. [place] [address] [place] [address] Care Team Providers Care Web Publisher Name Role Phone Abdon Villela MD Primary Care Provider [phone] Encounter Details Date Type Department Care Team (Late st Contact Info) Description 08/17/2017 Abstract [facility] Cardiology [facility] [address] [place] [address] Kamilla Oliveira, HETAL Social History Tobacco Use Types Packs/Day Years [...] (Latest Contact Info) Description 06/09/2024 2:20 PM SPONGE PACKER Telemedicine [facility] Medical Group Multispecialty [facility] [address] [place] [address] Earnest Drake MD [address] [place] [address] 06/21/2024 1:30 AM SPONGE PACKER Allied Health/Nurse Visit [facility] [address] [place] [address] Madan Palomo MD [address] 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
--- OUTSIDE RECORDS SUMMARY | 2024-06-08 06:11 | XMS_ITS | Encounter Summary ---
Author Organization [facility] Address [address] [place] [address]. [place] [address] [place] [address] Care Team Providers Care Director Epidemiology Name Role Phone Abdon Villela MD Primary Care Provider [phone] Encounter Details Date Type Department Care Team (Late st Contact Info) Description 04/09/2018 [facility] [address] [place] [address] Clifford Boss MD Social History [...] (Latest Contact Info) Description 06/09/2024 2:20 PM SCANNING SUPERVISOR Telemedicine [facility] Medical Group Multispecialty [facility] [address] [place] [address] Earnest Drake MD [address] [place] [address] 06/21/2024 1:30 AM SCANNING SUPERVISOR Allied Health/Nurse Visit [facility] [address] [place] [address] Madan Palomo MD [address] [place] [address] 03/01/2025 11:00 AM CDT Allied Health/Nurse Visit [facility] [address] [place] [address] Norma Rowland PA-C [address] [place], [place] [address] 03/01/2025 11:00 AM CDT Office Visit [facility] [address] [place] [address] [place] [address] Norma Rowland PA-C [address] [place], [place] [address] documented as of this encounter Visit Diagnoses Not on filedocumented in this encounter Care Teams Director Epidemiology Relationship Specialty Start Date End Date Abdon Villela MD [address] [place] [address] PCP - General FAMILY PRACTICE 12/17/15 documented as of this encounter
--- OUTSIDE RECORDS SUMMARY | 2024-06-08 06:11 | XMS_ITS | Encounter Summary ---
Author Organization [facility] Address [address] [place] [address]. [place] [address] [place] [address] Care Team Providers Care Emergency Vehicle Operations Instructor Name Role Phone Abdon Villela MD Primary Care Provider [phone] Reason for Visit * Reason Comments Follow Up Encounter Details Date Type Department Care Team (Late st Contact Info) Description 05/05/2018 12:00 PM CATERING DIRECTOR Office Visit [facility] AT [address] [place] [address] Clifford Boss MD Follow Up Social History Tobacco Use [...] Sign Reading Time Taken Comments Blood Pressure 154/79 05/05/2018 12:06 PM CATERING DIRECTOR Pulse 94 05/05/2018 12:06 PM CATERING DIRECTOR Temperature - - Respiratory Rate 20 05/05/2018 12:06 PM CATERING DIRECTOR Oxygen Saturation 98% 05/05/2018 12:06 PM CATERING DIRECTOR Inhaled Oxygen Concentration - - Weight 122.9 kg (271 lb) 05/05/2018 12:06 PM CATERING DIRECTOR Height 181.6 cm (5' 11.5 ) 05/05/2018 12:[address] Body Mass Index 37.27 05/05/2018 12:06 PM CATERING DIRECTOR documented in this encounter Progress Notes * Clifford Boss MD - 05/05/2018 12:00 PM CST Reason for Visit: Follow Up Impression: 1. Coronary artery disease involving [place] coronary artery of [place] heart without angina pectoris. Bare metal stent to LAD 2.73m85pa ??on 07/30/2010 in [place], [place]. Recent stress test neg for ischemia, October 2014. Angina free 2. Paroxysmal atrial fibrillation 3. Sinus node dysfunction; S/P MDT PPM in Apr 2013 4. Chronic anticoagulation 5. Recent ER visit for diastolic HF, resolved. EF 58% in Jul 2017 Recommendations and Plan: ?1. Mr. Fernandez continues to do well without angina, HF or arrhythmia related symptoms. He is euvolemic on exam today. I have asked him to continue other current medical therapy. ?2. Low salt Low cholesterol diet and regular exercise encouraged. ?3. LDL goal <70 with non-HDL goal of <100. Please titrate statin therapy to achieve thesegoals. ?4. Follow up in 1 year. ?? History of Present Illness: Previously seen in cardiology clinic for: 1. Known coronary artery disease s/p prior PCI to LAD with BMS on 07/30/2010. 2. Status post permanent pacemaker in April 2013([employer]). 3. Atrial fibrillation on skilled nursing anticoagulation. 4. Hypertension, controlled. Recent ER visit for diastolic HF after stopping HCTZ. Here for a follow up visit and reevaluation. Feels much better. Denies any SOB. Denies any CP/LH/Dizziness/Pre-syncope/Syncope. No orthopnea, PND, LE edema. No claudication. ROS neg. Medications: Current Outpatient Medications: ??? aspirin (ALEXIS LOW DOSE) 81 MG Tab EC, Take 1 tablet by mouth daily., Disp: , Rfl: ??? atorvastatin 80 MG tablet, Take 1 tablet (80 mg total) by mouth daily., Disp: 90 tablet, Rfl: 3 ??? carvedilol 12.5 MG tablet, Take 1 tablet (12.5 mg total) by mouth 2 (two) times daily., Disp: 180 tablet, Rfl: 3 ??? ELIQUIS 5 MG tablet, TAKE 1 [...] 5 (five) minutes as needed., Disp:, Rfl: No Known Allergies Past Medical History: Diagnosis Date ??? Coronary artery disease ??? Diabetes mellitus (HCC) ??? Disorder of prostate ??? Hyperlipidemia ??? Hypertension Past Surgical History: Procedure Laterality Date ??? CORONARY ART DIL,ONE VESSEL 2010 ??? INSER COBIAN PACER XVENOUS ATRIAL 05/04/2013 Social History Socioeconomic History ??? Marital status: Spouse name: Not on file ??? Number of children: 2 ??? Years of education: Not on file ??? Highest education level: Not on file Social Needs ??? Financial resource strain: Not on file ??? Food insecurity - worry: Not on file ??? Food insecurity - inability: Not on file ??? Transportation needs - medical: Not on file ??? Transportation needs - non-medical: Not on file Occupational History Employer: RETIRED Tobacco Use ??? Smoking status: Former Smoker Packs/day: 1.00 Types: Cigarettes, Pipe Start date: 02/14/1966 Last attempt to quit: 10/07/1995 Years since quittin.5 ??? Smokeless tobacco: Never Used Substance and Sexual Activity ??? Alcohol use: No ??? Drug use: No ??? Sexual activity: Not on file Other Topics Concern ??? Exercise No ??? Special Diet No ??? Caffeine Concern No Social History Narrative ??? Not on file Family History Problem Relation Age of Onset [...] new or significant memory loss. Filed Vitals: 05/05/18 1206 BP: 154/79 Pulse: 94 Resp: 20 SpO2: 98% Weight: 122.9 kg (271 lb) Height: 5' 11.5 (1.816 m) Body mass index is 37.27 kg/m??. Physical Exam Constitutional: He is oriented to person, place, and time. He appears well- developed and well-nourished. No distress. Moderately obese HENT: Nose: No mucosal edema. Mouth/Throat: Oropharynx is clear and moist and mucous membranes are normal. No oropharyngeal exudate. Neck: Neck supple. No JVD present. Cardiovascular: Normal rate, regular rhythm, S1 normal, S2 normal and intact distal pulses. PMI is not displaced. Exam reveals no gallop. No murmur heard. Irregularly irregular Pulmonary/Chest: Effort normal and breath sounds normal. [...] His behavior is normal. Thought content normal. Nursing note and vitals reviewed. Diagnoses/Impression: 1. Chronic diastolic heart failure (HCC) 2. Coronary artery disease involving [place] coronary artery of [place] heart without angina pectoris 3. Paroxysmal atrial fibrillation (HCC) [place] Documentation Completed: Coronary Artery Disease Referring Provider: No ref. provider found PCP: ABDON VILLELA MD RING DIRECTOR documented in this encounter Plan of Treatment Upcoming Encounters Date Type Department Care Team (Latest Contact Info) Description 06/09/2024 2:20 PM CATERING DIRECTOR Telemedicine [facility] Medical Group Multispecialty [facility] [address] [place] [address] Earnest Drake MD [address] [place], [place] [phone] 06/21/2024 1:30 AM CATERING DIRECTOR Allied Health/Nurse Visit [facility] [address] [place] [address] Madan Palomo MD [address] [place] [address] 03/01/2025 11:00 AM CDT Allied Health/Nurse Visit [facility] [place] [address] [place] [address] Norma Rowland PA-C [address] [place] [address] 03/01/2025 11:00 AM CDT Office Visit [facility] [place] [address] [address] Norma Rowland PA-C [address] [place] [address] documented as of this encounter Visit Diagnoses Diagnosis Chronic diastolic heart failure (CMS/HCC HHS/HCC)- Primary Chronic diastolic heart failure Coronary artery disease involving [place] coronary artery of [place] heart without angina pectoris Paroxysmal atrial fibrillation (CMS/HCC HHS/HCC) Atrial fibrillation documented in this encounter Care Teams Emergency Vehicle Operations Instructor Relationship Specialty Start Date End Date Abdon Villela MD [address] [place] [address] PCP - General FAMILY PRACTICE 12/17/15 documented as of this encounter
--- OUTSIDE RECORDS SUMMARY | 2024-06-08 06:11 | XMS_ITS | Encounter Summary ---
Author Organization [facility] Address [facility] [facility] [place] [address] [place] [address] Care Team Providers Care Systems Applications Programming Lead Name Role Phone Unavailable Primary Care Provider Unavailabl e Encounter Details Date Type Department Care Team (Late st Contact Info) Description 11/07/2014 Abstract [facility] [address] [place] [address] Claribel Arredondo MD Social History Tobacco Use Types Packs/Day Years Used Date Smoking Tobacco: Never Assessed Sex and Gender Information Value Date Recorded Sex Assigned at Not on file Legal Sex Male 8:13 PM CDT Gender Identity Not on file Sexual Orientation Not on file documented as of this encounter Plan of Treatment Upcoming Encounters Date Type Department Care Team (Latest Contact Info) Description 06/09/2024 2:20 PM NON DESTRUCTIVE TESTING SCIENTIST Telemedicine [facility] Medical Group [facility] [address] [place] [address] Earnest Drake MD [address] [place] [address] 06/21/2024 1:30 AM NON DESTRUCTIVE TESTING SCIENTIST Allied Health/Nurse Visit [facility] [address] [place] [address] Madan Palomo MD [address] [place], [place] [address] 03/01/2025 11:00 AM CDT Allied Health/Nurse Visit [facility] [address] [place] [address] Norma Rowland PA-C [address] [place], [place] [address] 03/01/2025 11:00 AM CDT Office Visit [facility] [address] [place] [address] Norma Rowland PA-C [address] [place], [place] [phone] documented as of this encounter Visit Diagnoses Not on filedocumented in this encounter
--- OUTSIDE RECORDS SUMMARY | 2024-06-08 06:11 | XMS_ITS | Encounter Summary ---
Author Organization [facility] Address [address] [place] [address]. [place] [address] [place] [address] Care Team Providers Care Cardiovascular Specialist Name Role Phone Abdon Villela MD Primary Care Provider [phone] Reason for Visit * Reason Onset Date Comments Medication 05/25/2017 Encounter Details Date Type Department Care Team (Late st Contact Info) Description 05/25/2017 Telephone [facility] [address] [place] [address] Clifford Boss MD Medication Social [...] encounter Progress Notes * Sherri Nicholson - 05/25/2017 2:19 PM CST Patient called checking to see if new scripts had been sent to [facility] in [place]. Advised that they had been sent there; and if needed the pharmacy can call our office. Patient v/u with no further questions OLITHOGRAPHIC STRIPPER documented in this encounter Plan of Treatment Upcoming Encounters Date Type Department Care Team (Latest Contact Info) Description 06/09/2024 2:20 PM PHOTOLITHOGRAPHIC STRIPPER Telemedicine [facility] Medical Group [facility]pec[facility] [address] [place] [address] Earnest Drake MD [address] [place], [place] [phone] 06/21/2024 1:30 AM PHOTOLITHOGRAPHIC STRIPPER Allied Health/Nurse Visit [facility] [address] [place] [address] Madan Palomo MD [address] [place] [address] 03/01/2025 11:00 AM CDT Allied Health/Nurse Visit [facility] [place] [address] [place] [address] Norma Rowland PA-C [address] [place], [place] [address] 03/01/2025 11:00 AM CDT Office Visit [facility] [place] [address] [place] [address] Norma Rowland PA-C [address] [place] [address] documented as of this encounter Visit Diagnoses Not on filedocumented in this encounter Care Teams Cardiovascular Specialist Relationship Specialty Start Date End Date Abdon Villela MD [address] [place] [address] PCP - General FAMILY PRACTICE 12/17/15 documented as of this encounter
--- OUTSIDE RECORDS SUMMARY | 2024-06-08 06:11 | XMS_ITS | Encounter Summary ---
Author Organization [facility] Address [address] [place] [address]. [place], [place] [id number] [place] [address] Care Team Providers Care Certified Travel Counselor Name Role Phone Abdon Villela MD Primary Care Provider Reason for Visit * Reason Comments Follow Up Coronary Artery Disease Encounter Details Date Type Department Care Team (Late st Contact Info) Description 03/03/2017 10:20 AM CDT Office Visit [facility] [address] [place] [address] Clifford Boss MD Follow Up; Coronary Artery Disease Social History Tobacco Use Types Packs/Day Years [...] Sign Reading Time Taken Comments Blood Pressure 140/80 03/03/2017 10:38 AM CDT Pulse 96 03/03/2017 10:37 AM CDT Temperature - - Respiratory Rate 20 03/03/2017 10:37 AM CDT Oxygen Saturation - - Inhaled Oxygen Concentration - - Weight 138.3 kg (305 lb) 03/03/2017 10:37 AM CDT Height 178.4 cm (5' 10.25 ) 03/03/2017 10:37 AM CDT Body Mass Index 43.45 03/03/2017 10:37 AM CDT documented in this encounter Patient Instructions * Patient Instructions* Donell Coffey, ADELSO - 03/03/2017 10:57 AM CDT Images from the original note were not included. Index Hungarian Related??topics Daily Aspirin for Heart Disease and Stroke Prevention WELLER POINTS ?? Taking an aspirin every day may help prevent a heart attack or stroke. ?? Ask your healthcare provider if you should take aspirin and if so, how much to take. How does daily aspirin help heart disease and stroke? You may know of aspirin as a pain or fever reliever. However, aspirin can help other problems as well. For example, taking an aspirin every day may help prevent a heart attack or stroke. You may havean increased risk for a heart attack or stroke if you: ?? Are over age 50 ?? Have chronic conditions like diabetes, kidney disease, high blood pressure, or high cholesterol ?? Are a smoker ?? Have a family history of early heart disease or stroke Not everyone should take aspirin. Ask your healthcare provider if you should take aspirin and if so, how much to take. How does it work? High cholesterol causes fatty buildup (plaque) in the crowell of the blood vessels. Plaque increases the risk that blood clots will form and block the arteries. Clots can block the flow of blood, oxygen, and nutrition to the heart or brain and cause a heart attack or a stroke. Aspirin helps prevent blood cells called platelets from sticking together. This lowers the chance that a blood clot will form. Aspirin is a nonsteroidal anti-inflammatory drug (NSAID). NSAIDs block the chemicals in the body that cause pain, fever, and inflammation (redness and swelling). What else do I need to know about this medicine? ?? Nonsteroidal anti-inflammatory medicines (NSAIDs), such as ibuprofen, naproxen, and aspirin, maycause stomach bleeding and other problems. These risks increase with age. Read the label and take as directed. Unless recommended by your healthcare provider, do not take for more than 10 days for any reason. ?? Follow the directions that come with your medicine, including information about food or alcohol.Make sure you know how and when to take your medicine. Do not take more or less than you are supposed to take. ?? Try to get all of your prescriptions filled at the same place. Your pharmacist can help make sure that all of your medicines are safe to take together. ?? Keep a list of your medicines with you. List all of the prescription medicines, nonprescription medicines, supplements, natural remedies, and vitamins that you take. Tell all healthcare providers who treat you about all of the products you are taking. ?? Many medicines have side effects. A side effect is a symptom or problem that is caused by the medicine. Ask your healthcare provider or pharmacist what side effects the medicine may cause and whatyou should do if you have side effects. ?? Call your healthcare provider if you have belly pain or black bowel movements because aspirin may increase your risk for bleeding in your stomach or bowel. If you have any questions, ask your healthcare provider or pharmacist for more information. Be sureto keep all appointments for provider visits or tests. Developed by [employer]. Adult Advisor 2017.1 published by [employer]. Last modified: 2015-11-22 Last reviewed: 2015-11-20 This content is reviewed periodically and is subject to change as new health information becomes available. The information is intended to inform and educate and is not a replacement for medical evaluation, advice, diagnosis or treatment by a healthcare professional. References Adult Advisor 2017.1 Index Copyright ?? 2017 [employer], a division of [employer]. All rights reserved. documented in this encounter Progress Notes * Clifford Boss MD - 03/03/2017 10:20 AM CDT Reason for Visit: Follow Up and Coronary Artery Disease Impression: 1. Coronary artery disease involving [place] apache coronary artery of [place] apache heart without angina pectoris. Bare metal stent to LAD [id number] on 07/30/2010 in [place], [place]. Recent stress test neg for ischemia, October 2014. Angina free 2. Paroxysmal atrial fibrillation 3. Sinus node dysfunction; S/P MDT PPM in Apr 2013 4. Chronic anticoagulation Recommendations and Plan: 1. Mr. Fernandez continues to do well without angina, HF or arrhythmia related symptoms. I have askedhim to continue other current medical therapy. 2. Low salt Low cholesterol diet and regular exercise encouraged. 3. LDL goal <70 with non-HDL goal of <100. Please titrate statin therapy to achieve these goals. 4. Follow up in 1 year. History of Present Illness: Previously seen in cardiology clinic for: 1. Known coronary artery disease s/p prior PCI to LAD with BMS on 07/30/2010. 2. Status post permanent pacemaker in April 2013(Medtronic). 3. 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 4. Hypertension, controlled. Here for a follow up visit and reevaluation. Denies any CP/SOB/LH/Dizziness/Pre-syncope/Syncope. No orthopnea, PND, LE edema. No claudication. ROS neg. Medications: Current Outpatient Prescriptions: ??? apixaban (ELIQUIS) 5 MG tablet, Take 1 tablet (5 mg total) by mouth 2 (two) times daily., Disp:60 tablet, Rfl: 3 ??? aspirin (ALEXIS LOW DOSE) 81 MG [...] 3 ??? ELIQUIS 5 MG tablet, TAKE ONE TABLET BY MOUTH TWICE DAILY, Disp: 60 tablet, Rfl: 0 ??? glipiZIDE 10 MG tablet, Take 1 [...] XVENOUS ATRIAL 05/04/2013 Social History Social History ??? Marital status: Spouse name: N/A ??? Number of children: 2 ??? Years of education: N/A Occupational History ??? Retired Social History Main Topics ??? Smoking status: Former Smoker Packs/day: 1.00 Types: Cigarettes, Pipe Start date: 02/14/1966 Quit date: 10/07/1995 ??? Smokeless tobacco: Never Used ??? Alcohol use No ??? Drug use: No ??? Sexual activity: Not Asked Other Topics Concern ??? Exercise No ??? Special Diet No ??? Caffeine Concern No Social History Narrative Family History Problem Relation Age of Onset ??? Heart Attack Mother Family Status Relation Status ??? Mother Review of Systems Constitutional: Negative for recent unintentional weight gain, recent unintentional weight loss andnew or significant fatigue. HENT: Positive for new hearing loss. Eyes: Negative for blurred vision [...] new or significant memory loss. Filed Vitals: 03/03/17 1037 03/03/17 1038 BP: 142/80 140/80 Pulse: 96 Resp: 20 Weight: (!) 138.3 kg (305 lb) Height: 5' 10.25 (1.784 m) Physical Exam Constitutional: He is oriented [...] Musculoskeletal: Normal range of motion. He exhibits edema ( mild). He exhibits no deformity. Neurological: He is alert and oriented to person, place, and time. Skin: Skin is warm and dry. Psychiatric: He has a normal mood and affect. His behavior is normal. Thought content normal. Nursing note and vitals reviewed. Diagnoses/Impression: 1. Paroxysmal atrial fibrillation 2. Cardiac pacemaker in situ 3. Coronary artery disease involving [place] apache coronary artery of [place]cal[place] apache heart without angina pectoris PINNACLE Documentation Completed: Coronary Artery Disease Referring Provider: Abdon Villela PCP: ABDON VILLELA documented in this encounter Plan of Treatment Upcoming Encounters Date Type Department Care Team (Latest Contact Info) Description 06/09/2024 2:20 PM MANAGER PATHOLOGY Telemedicine [facility] Multispecialty [facility] [address] [place] [address] Earnest Drake MD [address] [place] [address] 06/21/2024 1:30 AM MANAGER PATHOLOGY Allied Health/Nurse Visit [facility] [address] [place] [address] Madan Palomo MD [address] [place], [place] [address] 03/01/2025 11:00 AM CDT Allied Health/Nurse Visit [facility] [place] [address] [place] [address] Norma Rowland PA-C [address] [place], [place] [address] 03/01/2025 11:00 AM CDT Office Visit [facility] [place] [address] [place] [address] Norma Rowland PA-C [address] [place], [place] [address] documented as of this encounter Visit Diagnoses Diagnosis Paroxysmal atrial fibrillation ([facility]/HCC [facility])- Primary Atrial fibrillation Cardiac pacemaker in situ Coronary artery disease involving [place] apache coronary artery of [place] apache heart without angina pectoris documented in this encounter Care Teams Certified Travel Counselor Relationship Specialty Start Date End Date Abdon Villela MD [address] [place] [address] PCP - General FAMILY PRACTICE 12/17/15 documented as of this encounter
--- OUTSIDE RECORDS SUMMARY | 2024-06-08 06:11 | XMS_ITS | Encounter Summary ---
Author Organization [facility] Address [facility] [address] [place] [address] Care Team Providers Care Gunnery/Ordnance Officer Name Role Phone Unavailable Primary Care Provider Unavailabl e Encounter Details Date Type Department Care Team (Late st Contact Info) Description 05/08/2015 Scan [facility] [address] [place] [address] Claribel Arredondo MD Social History [...] (Latest Contact Info) Description 06/09/2024 2:20 PM JOURNALISM PROFESSOR Telemedicine [facility] Medical Group Multispecialty [facility] [address] [place] [address] Earnest Drake MD [address] [place], [place] [phone] 06/21/2024 1:30 AM JOURNALISM PROFESSOR Allied Health/Nurse Visit [facility] [address] [place] [address] Madan Palomo MD [address] [place], [place] [address] 03/01/2025 11:00 AM CDT Allied Health/Nurse Visit [facility] [address] [place] [address] Norma Rowland PA-C [address] [place], [place] [address] 03/01/2025 11:00 AM CDT Office Visit [facility] [address] [place] [address] Norma Rowland PA-C [address] [place], [place] [phone] documented as of this encounter Visit Diagnoses Not on filedocumented in this encounter
--- OUTSIDE RECORDS SUMMARY | 2024-06-08 06:11 | XMS_ITS | Encounter Summary ---
Author Organization [facility] Address [address] [place] [address]. [place] [address] [place] [address] Care Team Providers Care Decator Operator Name Role Phone Abdon Villela MD Primary Care Provider [phone] Reason for Visit * Reason Comments Follow Up Encounter Details Date Type Department Care Team (Late st Contact Info) Description 02/15/2016 11:00 AM CDT Office Visit [facility] [address] [place] [address] Clifford Boss MD Follow Up Social History [...] Sign Reading Time Taken Comments Blood Pressure 130/70 02/15/2016 10:47 AM CDT Pulse 126 02/15/2016 10:46 AM CDT Temperature - - Respiratory Rate 24 02/15/2016 10:46 AM CDT Oxygen Saturation - - Inhaled Oxygen Concentration - - Weight 137 kg (302 lb) 02/15/2016 10:46 AM CDT Height 180.3 cm (5' 11 ) 02/15/2016 10:46 AM CDT Body Mass Index 42.12 02/15/2016 10:46 AM CDT documented in this encounter Progress Notes * Clifford Boss MD - 02/15/2016 10:38 AM CDT Chief Complaint: Follow Up Recommendations/Plan: 1. Mr. Fernandez continues to do well without angina, HF or arrhythmia related symptoms. Given his last stent being more than 4 years ago, will stop Plavix and restart ASA 81mg/d. I have asked him to continue other current medical therapy. 2. [...] in April 2013(Medtronic). 3. Atrial fibrillation on nursing home anticoagulation. 4. Hypertension, controlled. Here for a follow up visit and reevaluation. Denies any CP/SOB/LH/Dizziness/Pre-syncope/Syncope. No orthopnea, PND, LE edema. No claudication. ROS neg. Medications: Current Outpatient Prescriptions: ??? apixaban 5 MG tablet, Take 1 tablet (5 mg total) by mouth 2 (two) times daily. Patient instructed to start Eliquis on Thursday12/22/15, Disp: 60 tablet, Rfl: 11 ??? aspirin (ALEXIS LOW DOSE) 81 MG Tab EC, Take 1 tablet by mouth daily., Disp: , Rfl: ??? atorvastatin 80 MG tablet, Take 80 mg by mouth daily., Disp: , Rfl: [...] ??? Inser michael pacer xvenous atrial 05/04/2013 Social History Social History ??? Marital [...] Negative for dysuria. Musculoskeletal: Positive for joint pain. Negative for myalgias. Skin: Negative for rash. Neurological: Negative for tingling, sensory change, focal weakness and headaches. Endo/Heme/Allergies: Negative for polydipsia. Does not bruise/bleed easily. Filed Vitals: 02/15/16 1046 02/15/16 1047 BP: 130/64 130/70 Pulse: 126 Resp: 24 Weight: (!) 137 kg (302 lb) Height: 5' 11 (1.803 m) Physical Exam Constitutional: He is oriented [...] content normal. Nursing note and vitals reviewed. No results found for this visit on 02/15/16. Diagnoses/Impression: 1. Coronary artery disease involving bois forte coronary artery of bois forte heart without angina pectoris Bare metal stent to LAD ..[id number] on 07/30/2010 in [place], [place]. Recent stress test neg for ischemia, October 2014 2. Paroxysmal atrial fibrillation 3. Sinus node dysfunction S/P MDT PPM in Apr 2013 4. Chronic anticoagulation [place] Documentation Completed: Coronary Artery Disease documented in this encounter Plan of Treatment Upcoming Encounters Date Type Department Care Team (Latest Contact Info) Description 06/09/2024 2:20 PM SCRAPER LOADER OPERATOR Telemedicine [facility] Medical Group Multispecialty [facility] [address] [place] [address] Earnest Drake MD [address] [place] [address] 06/21/2024 1:30 AM SCRAPER LOADER OPERATOR Allied Health/Nurse Visit [facility] [address] [place] [address] Madan Palomo MD [address] [place] [address] 03/01/2025 11:00 AM CDT Allied Health/Nurse Visit [facility] [place] [address] [place] [address] Norma Rowland PA-C [address] [place] [address] 03/01/2025 11:00 AM CDT Office Visit [facility] [place] [address] [place] [address] Norma Rowland PA-C [address] [place], [place] [address] documented as of this encounter Visit Diagnoses Diagnosis Coronary artery disease involving bois forte coronary artery of bois forte heart without angina pectoris- Primary Paroxysmal atrial fibrillation (CMS/HCC HHS/HCC) Atrial fibrillation Sinus node dysfunction (CMS/HCC HHS/HCC) Sinoatrial node dysfunction Chronic anticoagulation Encounter for long-term (current) use of anticoagulants documented in this encounter Care Teams Decator Operator Relationship Specialty Start Date End Date Abdon Villela MD [address] [place] [address] PCP - General FAMILY PRACTICE 12/17/15 documented as of this encounter
--- OUTSIDE RECORDS SUMMARY | 2024-06-08 06:11 | XMS_ITS | Encounter Summary ---
Author Organization [facility] Address [facility] [place] [address] [place] [address] Care Team Providers Care Extrusion Former Name Role Phone Unavailable Primary Care Provider Unavailabl e Encounter Details Date Type Department Care Team (Late st Contact Info) Description 09/11/2014 Scan [facility] [address] [place] [address] Claribel Arredondo MD Social History [...] (Latest Contact Info) Description 06/09/2024 2:20 PM QUARTZ MINER Telemedicine [facility] Medical Group Multispecialty [facility] [address] [place] [address] Earnest Drake MD [address] [place], [place] [phone] 06/21/2024 1:30 AM QUARTZ MINER Allied Health/Nurse Visit [facility] [address] [place] [address] Madan Palomo MD [address] [place], [place] [address] 03/01/2025 11:00 AM CDT Allied Health/Nurse Visit [facility] [address] [place] [address] oNrma Rowland PA-C [address] [place], [place] [address] 03/01/2025 11:00 AM CDT Office Visit [facility] [address] [place] [address] Norma Rowland PA-C [address] [place], [place] [phone] documented as of this encounter Visit Diagnoses Not on filedocumented in this encounter
--- OUTSIDE RECORDS SUMMARY | 2024-06-08 06:11 | XMS_ITS | Encounter Summary ---
Author Organization [facility] Address [address] [place] [address]. [place] [address] [place] [address] Care Team Providers Care Multi Line Claims Adjuster Name Role Phone Unavailable Primary Care Provider Unavailabl e Encounter Details Date Type Department Care Team (Late st Contact Info) Description 12/13/2015 Abstract [facility] [address] [place] [address] Dalton Reyes MD Social History Tobacco Use Types Packs/Day Years Used Date Smoking Tobacco: Never Alcohol Use Standard Drinks/Week Comments [...] (Latest Contact Info) Description 06/09/2024 2:20 PM INTERNAL AFFAIRS COMMANDER Telemedicine [facility] Medical Group Multispecialty [facility] [address] [place] [address] Earnest Drake MD [address] [place], [place] [phone] 06/21/2024 1:30 AM INTERNAL AFFAIRS COMMANDER Allied Health/Nurse Visit [facility] [address] [place] [address] Madan Palomo MD [address] [place] [address] 03/01/2025 11:00 AM CDT Allied Health/Nurse Visit [facility] [address] [place] [address] Norma Rowland PA-C [address] [place] [address] 03/01/2025 11:00 AM CDT Office Visit [facility] [place] [address] [place] [address] Norma Rowland PA-C [address] [place] [address] documented as of this encounter Visit Diagnoses Not on filedocumented in this encounter
--- OUTSIDE RECORDS SUMMARY | 2024-06-08 06:11 | XMS_ITS | Encounter Summary ---
Author Organization [facility] Address [address] [place] [address]. [place] [address] [place] [address] Care Team Providers Care Supervisor Facepiece Line Name Role Phone Unavailable Primary Care Provider Unavailabl e Encounter Details Date Type Department Care Team (Late st Contact Info) Description 09/13/2014 Abstract [facility] AT [address] [place] [address] , Claribel Pena MD Social History Tobacco Use Types Packs/Day [...] Contact Info) Description 06/09/2024 2:20 PM MANAGER IN HOME Telemedicine [facility] [address] [place] [address] Earnest Drake MD [address] [place] [address] 06/21/2024 1:30 AM MANAGER IN HOME Allied Health/Nurse Visit [facility] [address] [place] [address] Madan Palomo MD [address] [place], [place] [address] 03/01/2025 11:00 AM CDT Allied Health/Nurse Visit [facility] [address] [place] [address] Norma Rowland PA-C [address] [place] [address] 03/01/2025 11:00 AM CDT Office Visit [facility] [address] [place] [address] Norma Rowland PA-C [address] [place] [address] documented as of this encounter Visit Diagnoses Not on filedocumented in this encounter
--- OUTSIDE RECORDS SUMMARY | 2024-06-08 06:11 | XMS_ITS | Encounter Summary ---
Author Organization [facility] Address [address] [place] [address]. [place], [place] [address] [place] [address] Care Team Providers Care Refrigeration Brazer/Solderer Name Role Phone Abdon Villela MD Primary Care Provider [phone] Encounter Details Date Type Department Care Team (Late st Contact Info) Description 06/17/2016 10:30 AM TARGET TRIMMER Office Visit [facility] [address] [place] [address] Social History Tobacco Use Types [...] (Latest Contact Info) Description 06/09/2024 2:20 PM TARGET TRIMMER Telemedicine [facility] Medical Group Multispec[facility]ty [facility] [address] [place] [address] Earnest Drake MD [address] [place] [address] 06/21/2024 1:30 AM TARGET TRIMMER Allied Health/Nurse Visit [facility] [address] [place] [address] Madan Palomo MD [address] [place] [address] 03/01/2025 11:00 AM CDT Allied Health/Nurse Visit [facility] [place] [address] [place] [address] Norma Rowland PA-C [address] [place], [place] [address] 03/01/2025 11:00 AM CDT Office Visit [facility] [place] [address] [place] [address] Norma Rowland PA-C [address] [place], [place] [address] documented as of this encounter Visit Diagnoses Not on filedocumented in this encounter Care Teams Refrigeration Brazer/Solderer Relationship Specialty Start Date End Date Abdon Villela MD [address] [place] [address] PCP - General FAMILY PRACTICE 12/17/15 documented as of this encounter
--- OUTSIDE RECORDS SUMMARY | 2024-06-08 06:11 | XMS_ITS | Encounter Summary ---
Author Organization [facility] Address [address] [place] [address]. [place] [address] [place] [address] Care Team Providers Care Printer'S Devil Name Role Phone Abdon Villela MD Primary Care Provider [phone] Encounter Details Date Type Department Care Team (Late st Contact Info) Description 08/17/2017 [facility] [address] [place] [address] Jennifer Cm, HETAL Social History Tobacco Use Types Packs/Day [...] (Latest Contact Info) Description 06/09/2024 2:20 PM TERMINAL CARMAN Telemedicine [facility] Medical Group Multispecialty [facility] [address] [place] [address] Earnest Drake MD [address] [place] [address] 06/21/2024 1:30 AM TERMINAL CARMAN Allied Health/Nurse Visit [facility] eld [address] [place] [address] Madan Palomo MD [address] [place] [address] 03/01/2025 11:00 AM CDT Allied Health/Nurse Visit [place] [address] [place] [address] Norma Rowland PA-C [address] [place] [address] 03/01/2025 11:00 AM CDT Office Visit [place] [address] [place] [address] Norma Rowland PA-C [address] [place], [place] [address] documented as of this encounter Procedures Procedure Name Priority Date/Time Associated Diagnosis Comments USE ECHOCARDIOGRAM 08/17/2017 8: 43 AM TERMINAL CARMAN documented in this encounter Results * USE ECHOCARDIOGRAM (08/17/2017 8:43 AM TERMINAL CARMAN) Anatomical Region Laterality Modality Cardiac Echocardiogram 08/17/2017 8:43 AM TERMINAL CARMAN Narrative 08/17/2017 12:00 AM TERMINAL CARMAN ?Echocardiography Report Pat.Name: ??DELILAH FERNANDEZ ? Pat.ID: ?[id number] ? St.Date: ?? 08/17/2017 ? Refer.: ??JENNIFER CM ? Exam Time: 8:43:00 AM ?Study Type:ECHO W/CONTRAST COMPLETE Height: ?182.88cm ?Weight: ?136.08kg ? BSA: ? 2.53 m2 ?Age: ??1945,72Y ? Sex: ? MALE ?HR: ?72 bpm ? Sonogrphr: Alexandra Grayson RDCS ?Pat. Stat.:Outpatient ? CPT: ?? C8929 ? Reason for Study:SOB ? Procedures:2D, M-mode, Doppler, Color Flow, Definity was used to enhance endocardial definition., The study quality is technically difficult. Race: ?C ? ++++++++++++++++++++++++++++++++++++ SUMMARY: ++++++++++++++++++++++++++++++++++++ The calculated ejection fraction is 58%. Mild asymmetrical left ventricular hypertrophy. The right ventricular size is mildly enlarged. Right ventricular systolic function is at the lower limit of normal. Mild tricuspid regurgitation. Right ventricular systolic pressure is 41 mmHg. ++++++++++++++++++++++++++++++++++++ FINDINGS: ++++++++++++++++++++++++++++++++++++ LV: ? The left ventricular size is mildly enlarged. The left ?ventricular ??systolic function is normal. The calculated ?ejection ??fraction is 58%. Mild asymmetrical left ?ventricular ??hypertrophy. The septal E/e' is indeterminate ?at ??8-15. The lateral E/e' is elevated at >11. Left ?ventricular ??diastolic function is normal. WM: ? Wall motion appears normal in all segments. LVOT: ? The left ventricular outflow tract size is normal. RV: ? The right ventricular size is mildly enlarged. Right ?ventricular ??systolic function is at the lower limit of ?normal. ??TAPSE = 15mm (<16 mm indicates systolic RV ?dysfunction). IVS: ?Intraventricular septum is normal. LA: ? The left atrial volume is mildly increased (34- 41ml/M2). RA: ? Right atrial size is mildly enlarged. IAS: ?Atrial septum appears intact. NAYELI: ? No evidence of pericardial effusion. AO: ? Normal aortic root. The proximal ascending aorta measures ?3.3cm. PA: ? Estimated right atrial pressure of 3 mmHg. PVn: ?Pulmonary veins are normal. SVn: ?Inferior vena cava shows >50% collapse with respiration ?consistent ??with normal right atrial pressure. Other: ?Technically difficult exam due to body habitus. AV: ? The aortic valve is trileaflet. No evidence of aortic valve ?stenosis. ??No evidence of aortic regurgitation. MV: ? Trace mitral regurgitation. No evidence of mitral valve ?stenosis. ??Calcified anterior and posterior mitral annulus. PV: ? Pulmonic valve not well visualized. TV: ? Structurally normal tricuspid valve. Mild tricuspid ?regurgitation. ??Right ventricular systolic pressure is 41 ?mmHg. ??No evidence of tricuspid valve stenosis. ++++++++++++++++++++++++++++++++++++ MEASUREMENTS: ++++++++++++++++++++++++++++++++++++ ?DOPPLER LVOT ?? LVOTpkPG ? 3 mmHg ?LVOTmnPG ? 2 mmHg LVOTpkVel ? 89.5 cm/s (70-110) LVOT SV ? 70 ml ?? LVOT TVI ?15.5 cm ?LVOT CO ?70.0014 l/min AV Forward Flow AV TVI ?23.3 cm ?AV pkPG ?5 mmHg AV pkVel ? 113 cm/s (100-170) Area (TVI) ?3.01 cm2 ??(3-5) AV mnVel ?76.3 cm/s ?Area (Leo) ?3.58 cm2 ??(3-5) AV mnPG ?3 mmHg ? MV Forward Flow MV DeTm ?180 msec ?MV pkE ?73.5 cm/s (60- 130) MV E/A ? 2.3 ? MV pkA ?32.6 cm/s PV Forward Flow PV pkVel ?85.3 cm/s (60-90) ??PV pkPG ?3 mmHg TV Regurg Flow TV pkPG ? 34 mmHg ? TV pkVel ? 292 cm/s (30-70)+* Lat E' ?? Lat e ? 6.53 cm/s ? Lat E/E' ?? Lat E/e ? 11.3 ? Med E' ?? Med e ? 8.58 cm/s ? Med E/E' ?? Med E/e ?8.6 ? AV DI ?? Value ?0.7 ? NADER (VTI) Index ?? Value ? 1.19 ? LV Mass 2D ?? Value ?237 g ? LV Mass Index 2D ?? Value ? 93.7 g/m2 ? RA Volume ?? Atrial Delgado ?6.2 cm ? Atrial Delgado ?? 31.2 cm2 Atrial Delgado ??123.3 ml ? SV INDEX ?? Value ? 27.7 ?2D Left Ventricle ?? LVIDd ? 5.53 cm ?? (3.6-5.2)* LV EF(Bi-Plane) ?58 % ?(63-77)* LVIDs ? 4.47 cm ?? (2.3-3.9)* LVPW ?? LVPWd ?1.3 cm ? Ventricular Septum ?? IVSd ? 0.854 cm ? Left Atrium ?? LA a-p ? 5 cm ?? (2.8-3.4)* Aorta ?? Ao Rtd ? 2.8 cm ? Ao Asc ? 3.3 cm ?? (2.1-3.4) LVOT ?? LVOT ? 2.4 cm ? Ratios ?? IVS LA Biplane LAVol I BP ?37.2 ml/m2 ?MMODE Left Atrium ?? LAID ? 4.3 cm ?? (1.9-4)* Ratios ?? LA/Ao ? 1.48 ?(0.87-1.1)* Aorta ?? Ao Rt ?2.9 cm ?? (2-3.7) ?? Signed 08/17/2017 05:29 PM Dea Osborne M.D. Procedure Note Christie Osborne MD - 08/18/2017 Echocardiography Report Pat.Name: DELILAH FERNANDEZ Pat.ID: [id number] .Date: 08/17/2017 Refer.MD: JENNIFER CM Exam Time: 8:43:00 AM Study Type:ECHO W/CONTRAST COMPLETE Height: 182.88cm Weight: 136.08kg BSA: 2.53 m2 Age: 10 1945,72Y Sex: MALE HR: 72 bpm Sonogrphr: Alexandra Grayson [facility] Pat. Stat.:Outpatient CPT: C8929 Reason for Study:SOB Procedures:2D, M-mode, Doppler, Color Flow, Definity was used to enhance endocardial definition., The study quality is technically difficult. Race: C ++++++++++++++++++++++++++++++++++++ SUMMARY: ++++++++++++++++++++++++++++++++++++ The calculated ejection fraction is 58%. Mild asymmetrical left ventricular hypertrophy. The right ventricular size is mildly enlarged. Right ventricular systolic function is at the lower limit of normal. Mild tricuspid regurgitation. Right ventricular systolic pressure is 41 mmHg. ++++++++++++++++++++++++++++++++++++ FINDINGS: ++++++++++++++++++++++++++++++++++++ LV: The left ventricular size is mildly enlarged. The left ventricular systolic function is normal. The calculated ejection fraction is 58%. Mild asymmetrical left ventricular hypertrophy. The septal E/e' is indeterminate at 8-15. The lateral E/e' is elevated at >11. Left ventricular diastolic function is normal. WM: Wall motion appears normal in all segments. LVOT: The left ventricular outflow tract size is normal. RV: The right ventricular size is mildly enlarged. Right ventricular systolic function is at the lower limit of normal. TAPSE = 15mm (<16 mm indicates systolic RV dysfunction). IVS: Intraventricular septum is normal. LA: The left atrial volume is mildly increased (34- 41ml/M2). RA: Right atrial size is mildly enlarged. IAS: Atrial septum appears intact. NAYELI: No evidence of pericardial effusion. AO: Normal aortic root. The proximal ascending aorta measures 3.3cm. PA: Estimated right atrial pressure of 3 mmHg. PVn: Pulmonary veins are normal. SVn: Inferior vena cava shows >50% collapse with respiration consistent with normal right atrial pressure. Other: Technically difficult exam due to body habitus. AV: The aortic valve is trileaflet. No evidence of aortic valve stenosis. No evidence of aortic regurgitation. MV: Trace mitral regurgitation. No evidence of mitral valve stenosis. Calcified anterior and posterior mitral annulus. PV: Pulmonic valve not well visualized. TV: Structurally normal tricuspid valve. Mild tricuspid regurgitation. Right ventricular systolic pressure is 41 mmHg. No evidence of tricuspid valve stenosis. ++++++++++++++++++++++++++++++++++++ MEASUREMENTS: ++++++++++++++++++++++++++++++++++++ DOPPLER LVOT LVOTpkPG 3 mmHg LVOTmnPG 2 mmHg LVOTpkVel 89.5 cm/s (70-110) LVOT SV 70 ml LVOT TVI 15.5 cm LVOT CO 70.0014 l/min AV Forward Flow AV TVI 23.3 cm AV pkPG 5 mmHg AV pkVel 113 cm/s (100-170) Area (TVI) 3.01 cm2 (3-5) AV mnVel 76.3 cm/s Area (Leo) 3.58 cm2 (3-5) AV mnPG 3 mmHg MV Forward Flow MV DeTm 180 msec MV pkE 73.5 cm/s (60-130) MV E/A 2.3 MV pkA 32.6 cm/s PV Forward Flow PV pkVel 85.3 cm/s (60-90) PV pkPG 3 mmHg TV Regurg Flow TV pkPG 34 mmHg TV pkVel 292 cm/s (30-70)+* Lat E' Lat e 6.53 cm/s Lat E/E' Lat E/e 11.3 Med E' Med e 8.58 cm/s Med E/E' Med E/e 8.6 AV DI Value 0.7 NADER (VTI) Index Value 1.19 LV Mass 2D Value 237 g LV Mass Index 2D Value 93.7 g/m2 RA Volume Atrial Delgado 6.2 cm Atrial Delgado 31.2 cm2 Atrial Delgado 123.3 ml SV INDEX Value 27.7 2D Left Ventricle LVIDd 5.53 cm (3.6-5.2)* LV EF(Bi-Plane) 58 % (63-77)* LVIDs 4.47 cm (2.3-3.9)* LVPW LVPWd 1.3 cm Ventricular Septum IVSd 0.854 cm Left Atrium LA a-p 5 cm (2.8-3.4)* Aorta Ao Rtd 2.8 cm Ao Asc 3.3 cm (2.1-3.4) LVOT LVOT 2.4 cm Ratios IVS LA Biplane LAVol I BP 37.2 ml/m2 MMODE Left Atrium LAID 4.3 cm (1.9-4)* Ratios LA/Ao 1.48 (0.87-1.1)* Aorta Ao Rt 2.9 cm (2-3.7) Signed 08/17/2017 05:29 PM Dea Osborne M.D. us Jennifer Cm PUBLIC STENOGRAPHER ECHO Final Result documented in this encounter Visit Diagnoses Not on filedocumented in this encounter Care Teams Printer'S Devil Relationship Specialty Start Date End Date Abdon Villela MD [address] [place] [address] [place] [phone] PCP - General FAMILY PRACTICE 12/17/15 documented as of this encounter
--- OUTSIDE RECORDS SUMMARY | 2024-06-08 06:11 | XMS_ITS | Encounter Summary ---
Author Organization [facility] Address [address] [place] [address]. [place] [address] [place] [address] Care Team Providers Care Meat Counter Clerk Name Role Phone Unavailable Primary Care Provider Unavailabl e Encounter Details Date Type Department Care Team (Late st Contact Info) Description 04/30/2015 [facility] [address] [place] [address] , Claribel Pena MD Social History Tobacco Use Types Packs/Day Years Used Date Smoking Tobacco: Never Assessed Sex and Gender Information Value Date Recorded Sex Assigned at Not on file Legal Sex Male 8:13 PM CDT Gender Identity Not on file Sexual Orientation Not on file documented as of this encounter Last Filed Vital Signs Vital Sign Reading Time Taken Comments Blood Pressure 138/84 04/30/2015 12:00 PM MICROELECTRONICS ASSEMBLER Pulse 80 04/30/2015 11:59 AM MICROELECTRONICS ASSEMBLER Temperature - - Respiratory Rate 22 04/30/2015 11:59 AM MICROELECTRONICS ASSEMBLER Oxygen Saturation - - Inhaled Oxygen Concentration - - Weight 98.9 kg (218 lb) 04/30/2015 11:59 AM MICROELECTRONICS ASSEMBLER Height 180.3 cm (5' 11 ) 04/30/2015 11:59 AM MICROELECTRONICS ASSEMBLER Body Mass Index 30.4 04/30/2015 11:59 AM MICROELECTRONICS ASSEMBLER documented in this encounter Plan of Treatment Upcoming Encounters Date Type Department Care Team (Latest Contact Info) Description 06/09/2024 2:20 PM MICROELECTRONICS ASSEMBLER Telemedicine [facility] Medical [facility] Multispecialty [address] [address] Earnest Drake MD [address] [place] [address] 06/21/2024 1:30 AM MICROELECTRONICS ASSEMBLER [facility] [address] [place] [address] Madan Palomo MD [address] [place] [address] 03/01/2025 11:00 AM CDT Allied Health/Nurse Visit [facility] [place] [address] [place] [address] Norma Rowland PA-C [address] [place], [place] [address] 03/01/2025 11:00 AM CDT Office Visit [facility] [place] [address] [place] [address] Norma Rowland PA-C [address] [place], [place] [address] documented as of this encounter Visit Diagnoses Not on filedocumented in this encounter
--- OUTSIDE RECORDS SUMMARY | 2024-06-08 06:11 | XMS_ITS | Encounter Summary ---
Author Organization [facility] Address [facility] [facility] [place] [address] [place] [address] Care Team Providers Care Religion Teacher Name Role Phone Abdon Villela MD Primary Care Provider [phone] Reason for Visit * Reason Comments Follow Up A flutter Encounter Details Date Type Department Care Team (Latest Contact Info) Description 07/10/2016 10:30 AM COPY LATHE TENDER Office Visit [facility] [address] [place] [address] Dalton Reyes MD Follow Up (A flutter) Social History Tobacco Use Types Packs/Day Years [...] as of this encounter Progress Notes * Dalton Reyes MD - 07/10/2016 10:30 AM CST Reason for Visit: No chief complaint on file. Recommendations and Plan: 1. Atrial Fibrillation: The patient has essentially asymptomatic atrial fibrillation and with pacing does not have episodes of ventricular asystole or syncope. He is doing well from that standpoint. His atrial fibrillation is essentially asymptomatic as he is not aware of any rhythm changes. ?? 2. He is tolerating anticoagulation with apixaban and is doing well from that standpoint. He is difficult to manage on vitamin K antagonists due to highly variable INR. ?? 3. We will continue to monitor his device trans-telephonically. I would be pleased to see him at any point should anything change from an electrophysiologic standpoint. ? History of Present Illness: Mr. Fernandez is a very pleasant 71-year-old gentleman with a history of diabetes mellitus, [...] difficulty maintaining his INR in the therapeutic range, and at our last visit, we switched him to apixaban, which he is tolerating without difficulty. ?? He does have coronary artery disease and did have a stenting procedure in 2010. He has not had percutaneous coronary interventions since that time. He is on aspirin at this point, and he is tolerating it well. Device Interrogation: Interrogation of his device reveals his Medtronic Adapta pacemaker is functioning as programmed. Implant date is 2012. The mode is AAI to DDD with a lower rate 60. Mode switch occurs at 155 bpm. ?? Capture thresholds, sensing, and lead impedance values, are all within appropriate limits. Battery voltage suggests longevity of 10.5 years remaining. A substantial burden of atrial fibrillation has been noted. Medications: Current Outpatient Prescriptions: ??? apixaban 5 [...] (two) times daily., Disp: , Rfl: ??? glipiZIDE 10 [...] ??? Other and unspecified hyperlipidemia Past Surgical History: Procedure Laterality Date ??? [...] Negative for cough, hemoptysis and wheezing. Cardiovascular: Positive for palpitations. Negative for chest pain. Gastrointestinal: Negative for blood in stool and melena. Genitourinary: Negative for dysuria. Musculoskeletal: Negative for joint pain and myalgias. Skin: Negative for rash. Neurological: Negative for tingling, sensory change, focal weakness and headaches. Endo/Heme/Allergies: Negative for polydipsia. Does not bruise/bleed easily. There were no vitals filed for this visit. Physical Exam Constitutional: He is oriented to [...] No results found for this visit on 07/10/16. Diagnoses/Impression: 1. Sinus node dysfunction ELECTROCARDIOGRAM (NON [place]MARK ACQUIRED) 2. Paroxysmal atrial fibrillation ELECTROCARDIOGRAM (NON MIDMARK ACQUIRED) 3. Chronic anticoagulation 4. Encounter for interrogation of cardiac pacemaker PINNACLE Documentation Completed: Atrial Fibrillation Coronary Artery Disease Referring Provider: Abdon Villela PCP: ABDON VILLELA LATHE TENDER documented in this encounter Plan of Treatment Upcoming Encounters Date Type Department Care Team (Latest Contact Info) Description 06/09/2024 2:20 PM COPY LATHE TENDER Telemedicine [facility] Medical Group [facility] [address] [place] [address] Earnest Drake MD [address] [place] [address] 06/21/2024 1:30 AM COPY LATHE TENDER Allied Health/Nurse Visit [facility] [address] [place] [address] Madan Palomo MD [address] [place] [address] 03/01/2025 11:00 AM CDT Allied Health/Nurse Visit [facility] [place] [address] [place] [address] Norma Rowland PA-C [address] [place], [place] [address] 03/01/2025 11:00 AM CDT Office Visit [facility] [place] [address] [place] [address] Norma Rowland PA-C [address] [place], [place] [address] documented as of this encounter Visit Diagnoses Diagnosis Sinus node dysfunction (CMS/HCC HHS/HCC)- Primary Sinoatrial node dysfunction Paroxysmal atrial fibrillation (CMS/HCC HHS/HCC) Atrial fibrillation Chronic anticoagulation Encounter for long-term (current) use of anticoagulants Encounter for interrogation of cardiac pacemaker Fitting and adjustment of cardiac pacemaker documented in this encounter Care Teams Religion Teacher Relationship Specialty Start Date End Date Abdon Villela MD [address] [place] [phone] PCP - General FAMILY PRACTICE 12/17/15 documented as of this encounter
--- OUTSIDE RECORDS SUMMARY | 2024-06-08 06:11 | XMS_ITS | Encounter Summary ---
Author Organization [facility] Address [address] [place] [address]. [place], [place] [address] [place] [address] Care Team Providers Care Learning Disabilities Specialist Name Role Phone Abdon Villela MD Primary Care Provider [phone] Reason for Visit * Reason Onset Date Comments Appointment Request 07/31/2017 Scheduled f/ u appt rios/HETAL Kohli Encounter Details Date Type Department Care Team (Late st Contact Info) Description 07/31/2017 Telephone [facility] [address] [place] [address] Dalton Reyes MD Appointment Request (Scheduled f/u appt rios/HETAL Kohli) Social History Tobacco Use Types Packs/Day Years [...] encounter Progress Notes * Lani Mehta - 07/31/2017 3:31 PM CST Pt due for in office f/u; scheduled rios/HETAL Kohli, 08/06 @ 10:30am. Letter & worksheet w/Packet mailed. Confirmed w/Pt. REL PULLER documented in this encounter Plan of Treatment Upcoming Encounters Date Type Department Care Team (Latest Contact Info) Description 06/09/2024 2:20 PM MANDREL PULLER Telemedicine [facility] Medical Group Mult[facility]pecialty [facility] [address] [place] [address] Earnest Drake MD [address] [place], [place] [address] 06/21/2024 1:30 AM MANDREL PULLER [facility] [address] [place] [address] Madan Palomo MD [address] [place], [place] [address] 03/01/2025 11:00 AM CDT Allied Health/Nurse Visit [facility] [place] [address] [place] [address] Norma Rowland PA-C [address] [place], [place] [address] 03/01/2025 11:00 AM CDT Office Visit [facility] [place] [address] [place] [address] Norma Rowland PA-C [address] [place], [place] [address] documented as of this encounter Visit Diagnoses Not on filedocumented in this encounter Care Teams Learning Disabilities Specialist Relationship Specialty Start Date End Date Abdon Villela MD [address] [place] [address] PCP - General FAMILY PRACTICE 12/17/15 documented as of this encounter
--- OUTSIDE RECORDS SUMMARY | 2024-06-08 06:11 | XMS_ITS | Encounter Summary ---
Author Organization [facility] Address [address] [place] [address]. [place], [place] [address] [place] [address] Care Team Providers Care Communications Representative Name Role Phone Abdon Villela MD Primary Care Provider [phone] Reason for Visit * Reason Onset Date Comments Error 09/07/2017 Encounter Details Date Type Department Care Team (Late st Contact Info) Description 09/07/2017 Telephone [employer] [facility] [address] [place] [address] Clifford Boss MD Error Social History Tobacco Use Types [...] (Latest Contact Info) Description 06/09/2024 2:20 PM CHILD CARE CENTRE DIRECTOR Telemedicine [facility] Medical Group Multispecialty [facility] [address] [place] [address] Earnest Drake MD [address] [place] [address] 06/21/2024 1:30 AM CHILD CARE CENTRE DIRECTOR Allied Health/Nurse Visit [facility] [address] [place] [phone] Madan Palomo MD [address] [place] [address] 03/01/2025 11:00 AM CDT Allied Health/Nurse Visit [facility] [place] [address] [place] [address] Norma Rowland PA-C [address] [place], [place] [address] 03/01/2025 11:00 AM CDT Office Visit [facility] [place] [address] [place] [address] Norma Rowland PA-C [address] [place], [place] [address] documented as of this encounter Visit Diagnoses Not on filedocumented in this encounter Care Teams Communications Representative Relationship Specialty Start Date End Date Abdon Villela MD [address] [place] [address] PCP - General FAMILY PRACTICE 12/17/15 documented as of this encounter
--- OUTSIDE RECORDS SUMMARY | 2024-06-08 06:11 | XMS_ITS | Encounter Summary ---
Author Organization [facility] Address [address] [place] [address]. [place] [address] [place] [address] Care Team Providers Care Entry Level Financial Analyst Name Role Phone Abdon Villela MD Primary Care Provider [phone] Vik Colvin MD Unavailable Unavailable Encounter Details Date Type Department Care Team (Late st Contact Info) Description 08/17/2017 Scan [facility] [address] [place] [address] Scanned, Documents Social History Tobacco [...] Contact Info) Description 06/09/2024 2:20 PM QUALITY CONTROL LAB TECHNICIAN Telemedicine [facility] Medical Group Multispecialty [facility] [address] [place] [address] Earnest Drake MD [address] [place] [address] 06/21/2024 1:30 AM QUALITY CONTROL LAB TECHNICIAN Allied Health/Nurse Visit [facility] eld [address] [place] [address] Madan Palomo MD [address] [place] [address] 03/01/2025 11:00 AM CDT Allied Health/Nurse Visit [facility] [address] [place] [address] Norma Rowland PA-C [address] [place] [address] 03/01/2025 11:00 AM CDT Office Visit [place] [address] [place] [address] Norma Rowland PA-C [address] [place] [address] documented as of this encounter Procedures Procedure Name Priority Date/Time Associated Diagnosis Comments USE ECHOCARDIOGRAM Routine 08/17/2017 Shortness of breath documented in this encounter Results * USE ECHOCARDIOGRAM (08/17/2017) Anatomical Region Laterality Modality Cardiac Echocardiogram Impressions 08/17/2017 The calculated ejection fraction is 58%. Mild asymmetrical left ventricular hypertrophy. The right ventricular size is mildly enlarged. Right ventricular systolic function is at the lower limit of normal. Mild tricuspid regurgitation. Right ventricular systolic pressure is 41 mmHg. ?? us Kamilla Oliveira CARTON LINER ECHO Final Result documented in this encounter Visit Diagnoses Diagnosis Shortness of breath documented in this encounter Care Teams Entry Level Financial Analyst Relationship Specialty Start Date End Date Abdon Villela MD [address] [place] [address] PCP - General FAMILY PRACTICE 12/17/15 Vik Colvin MD [address] [place] [address] Colp Account Installer INTERVENTIONAL CARDIOLOGY 05/20/18 07/04/19 documented as of this encounter
--- OUTSIDE RECORDS SUMMARY | 2024-06-08 06:11 | XMS_ITS | Encounter Summary ---
Author Organization [facility] Address [address] [place] [address]. [place] [address] [place] [address] Care Team Providers Care Recreation Facility Manager Name Role Phone Abdon Villela MD Primary Care Provider [phone] Reason for Referral * Imaging (Routine) - Closed Specialty Diagnoses / Procedures Referred By Davin humphries Referred To Contact CARDIOLOGY Diagnoses Shortness of breath Procedures USE ECHOCARDIOGRAM Kamilla Oliveira NP [facility] [address] Phone: tel: Referral ID Status Reason Start Date Expiration Date Visits Re quested Visits Authorized [id number] Closed 08/06/2017 09/06/2018 1 1 IN ANALYST Reason for Visit * Reason Comments Follow Up Encounter Details Date Type Department Care Team (Late st Contact Info) Description 08/06/2017 10:30 AM MARGIN ANALYST Office Visit [facility] [address] [place] [address] Kamilla Oliveira NP Follow Up Social History [...] Sign Reading Time Taken Comments Blood Pressure 146/84 08/06/2017 10:46 AM MARGIN ANALYST Pulse 81 08/06/2017 10:46 AM MARGIN ANALYST Temperature - - Respiratory Rate 20 08/06/2017 10:46 AM MARGIN ANALYST Oxygen Saturation - - Inhaled Oxygen Concentration - - Weight 140.2 kg (309 lb) 08/06/2017 10:46 AM MARGIN ANALYST Height 175.3 cm (5' 9 ) 08/06/2017 10:46 AM MARGIN ANALYST Body Mass Index 45.63 08/06/2017 10:46 AM MARGIN ANALYST documented in this encounter Progress Notes * MIGDALIA Johnson - 08/06/2017 10:30 AM CST Reason for Visit: No chief complaint on file. History of Present Illness: Mr. Fernandez is a very pleasant 72-year-old man with a history of diabetes mellitus, [...] VVIR mode. He is ventricular paced 99%. He has had one nonsustained ventricular tachycardia episode of 9 beats. EKG today reveals atrial fibrillation with ventricular pacing at 81 bpm. ?? Recommendations and Plan: 1. Device follow-up: His battery remains well above the elective replacement indicator and the device is functioning within normal operational limits. No programming changes were made to his device today. He has no device related complaints. 2. Long-standing persistent atrial fibrillation: He has no awareness of his abnormal rhythm. 3. Stroke risk: His CHADS-VASc is at least 4 out of 9. He continues Eliquis at 5 mg twice daily forstroke risk reduction is tolerating this without abnormal bleeding or bruising noted. He is aware of the importance of continuing anticoagulation in the setting of atrial fibrillation. 4. Shortness breath: He reports an increase in shortness of breath over the last year. I will orderan echocardiogram to determine his LV function due to his high frequency of ventricular pacing. Should his ejection fraction being significantly decreased, we will discuss upgrade to a biventricular device. 5. He will continue quarterly [facility] transmissions. We will plan for follow-up in 1 year. She hadpalpitation I would be pleased to see him sooner should anything arise in elective physiologic standpoint. Medications: Current Outpatient Prescriptions: ??? apixaban (ELIQUIS) [...] daily., Disp: 180 tablet, Rfl: 3 ??? glipiZIDE 10 MG tablet, Take 1 [...] Mother Family Status Relation Status ??? Mother ??? Father ??? Brother Alive Review of Systems Constitutional: Positive for fatigue. Negative for recent unintentional weight gain and recent unintentional weight loss. HENT: Negative for new or significant hearing loss. Eyes: Negative for blurred vision and double vision. Respiratory: Positive for shortness of breath. Negative for cough and snoring. Cardiovascular: See HPI Gastrointestinal: Negative for blood in stool and melena. Genitourinary: Negative for dysuria. Musculoskeletal: Negative for myalgias and new or worsening joint stiffness/pain. Skin: Negative for rash. Neurological: Negative for tingling/numbness and focal weakness. Endo/Heme/Allergies: Negative for new or significant bruising/bleeding and polydipsia. Psychiatric/Behavioral: Negative for depression and new or significant memory loss. Filed Vitals: 08/06/17 1046 BP: 146/84 Pulse: 81 Resp: 20 Weight: (!) 140.2 kg (309 lb) Height: 5' 9 (1.753 m) Physical [...] His behavior is normal. Thought content normal. Diagnoses/Impression: 1. Encounter for interrogation of cardiac pacemaker 2. Longstanding persistent atrial fibrillation ELECTROCARDIOGRAM (NON MIDMARK ACQUIRED) 3. Shortness of breath USE ECHOCARDIOGRAM 4. Long-term (current) use of anticoagulants Referring Provider: Abdon Villela PCP: ABDON VILLELA Atrial Fibrillation IN ANALYST documented in this encounter Plan of Treatment Upcoming Encounters Date Type Department Care Team (Latest Contact Info) Description 06/09/2024 2:20 PM MARGIN ANALYST Telemedicine [facility] Medical Group Multispecialty [facility] [address] [place] [address] Earnest Drake MD [address] [place], [place] [phone] 06/21/2024 1:30 AM MARGIN ANALYST Allied Health/Nurse Visit [facility] humberto [address] [place] [address] Madan Palomo MD [address] [place] [address] 03/01/2025 11:00 AM CDT Allied Health/Nurse Visit [facility] [place] [address] Norma Rowland PA-C [address] [place] [address] 03/01/2025 11:00 AM CDT Office Visit [facility] [address] [place] [address] Norma Rowland PA-C [address] [place] [address] documented as of this encounter Results * USE ECHOCARDIOGRAM (08/17/2017) Anatomical Region Laterality Modality Cardiac Echocardiogram Impressions 08/17/2017 The calculated ejection fraction is 58%. Mild asymmetrical left ventricular hypertrophy. The right ventricular size is mildly enlarged. Right ventricular systolic function is at the lower limit of normal. Mild tricuspid regurgitation. Right ventricular systolic pressure is 41 mmHg. ?? us Kamilla Oliveira CATALOGUE [employer]ODU[employer] MANAGER ECHO Final Result documented in this encounter Visit Diagnoses Diagnosis Encounter for interrogation of cardiac pacemaker- Primary Fitting and adjustment of cardiac pacemaker Longstanding persistent atrial fibrillation (CMS/HCC HHS/HCC) Shortness of breath Long-term (current) use of anticoagulants Encounter for long-term (current) use of anticoagulants Shortness of breath documented in this encounter Care Teams Recreation Facility Manager Relationship Specialty Start Date End Date Abdon Villela MD [address] [place] [address] PCP - General FAMILY PRACTICE 12/17/15 documented as of this encounter
--- OUTSIDE RECORDS SUMMARY | 2024-06-08 06:11 | XMS_ITS | Encounter Summary ---
Author Organization [facility] Address [address] [place] [address]. [place] [address] [place] [address] Care Team Providers Care Nursing Faculty Name Role Phone Abdon Villela MD Primary Care Provider [phone] Encounter Details Date Type Department Care Team (Late st Contact Info) Description 02/15/2016 [facility] [address] [place] [address] Donell Coffey, ADELSO Social History Tobacco Use Types Packs/Day Years [...] (Latest Contact Info) Description 06/09/2024 2:20 PM ITALIAN LECTURER Telemedicine [facility] Medical Group Multispecialty [facility] [address] [place] [address] Earnest Drake MD [address] [place] [address] 06/21/2024 1:30 AM ITALIAN LECTURER Allied Health/Nurse Visit [facility] eld [address] [place] [address] Madan Palomo MD [address] [place] [address] 03/01/2025 11:00 AM CDT Allied Health/Nurse Visit [facility] [place] [address] [place] [address] Norma Rowland PA-C [address] [place], [place] [address] 03/01/2025 11:00 AM CDT Office Visit [facility] [place] [address] [place] [address] Norma Rowland PA-C [address] [place], [place] [address] documented as of this encounter Visit Diagnoses Not on filedocumented in this encounter Care Teams Nursing Faculty Relationship Specialty Start Date End Date Abdon Villela MD [address] [place] [address] PCP - General FAMILY PRACTICE 12/17/15 documented as of this encounter
--- OUTSIDE RECORDS SUMMARY | 2024-06-08 06:11 | XMS_ITS | Encounter Summary ---
Author Organization [facility] Address [facility] [place] [address] [place] [address] Care Team Providers Care Diver Assistant Name Role Phone Abdon Villela MD Primary Care Provider [phone] Encounter Details Date Type Department Care Team (Late st Contact Info) Description 05/08/2015 Abstract [facility] Cardiology - [facility] [address] [place], [place] [address] Clifford Carbajal MD Social History Tobacco Use Types Packs/Day [...] (Latest Contact Info) Description 06/09/2024 2:20 PM LONG TERM CARE PHLEBOTOMIST Telemedicine [facility] Medical Group [facility] [address] [place] [address] Earnest Drake MD [address] [place], [place] [phone] 06/21/2024 1:30 AM LONG TERM CARE PHLEBOTOMIST Allied Health/Nurse Visit [facility] [address] [place] [address] Madan Palomo MD [address] [place] [address] 03/01/2025 11:00 AM CDT Allied Health/Nurse Visit [facility] [place] [address] [place] [address] Norma Rowland PA-C [address] [place] [address] 03/01/2025 11:00 AM CDT Office Visit [facility] [address] [place] [address] Norma Rowland PA-C [address] [place] [address] Pending Results Name Type Priority Associated Diagnoses Date /Time ECG 12 lead EKG-NonRad Routine 05/08/2015 9: 03 AM LONG TERM CARE PHLEBOTOMIST documented as of this encounter Procedures Procedure Name Priority Date/Time Associated Diagnosis Comments ECG 12-LEAD Routine 05/08/2015 9:03 AM LONG TERM CARE PHLEBOTOMIST Procedure Note - 05/08/2015 9:03 AM CSTThis note is in progress. [facility] [address] [place] [address] Test Date: 2015-05-08 Pat Name: ANNIE FERNANDEZ Department: Room: Gender: M Chick Grader: KATE : 1945 Requested By: CLIFFORD CARBAJAL Order Number: [id number] Reading MD: Interpretive Statements nsr with pvc with sinus arrhythmia lafb q wave v1 st depressiongave regadenoson followed by cardiolyte complaints of sob ekg remains essentially the same documented in this encounter Visit Diagnoses Diagnosis Chest pain Chest pain, unspecified documented in this encounter Care Teams Diver Assistant Relationship Specialty Start Date End Date Abdon Villela MD [address] [place] [address] PCP - General FAMILY PRACTICE 12/17/15 documented as of this encounter
--- OUTSIDE RECORDS SUMMARY | 2024-06-08 06:11 | XMS_ITS | Encounter Summary ---
Author Organization [facility] Address [address] [place] [address]. [place] [address] [place] [address] Care Team Providers Care Tape Controlled Machine Stitcher Name Role Phone Abdon Villela MD Primary Care Provider [phone] Encounter Details Date Type Department Care Team (Late st Contact Info) Description 09/13/2014 Scan [facility] [address] [place] [address] , Claribel Pena MD Social History Tobacco [...] (Latest Contact Info) Description 06/09/2024 2:20 PM COMMERCIAL CLEANER Telemedicine [facility] Medical Group Multispecialty [facility] [address] [place] [address] Earnest Drake MD [address] [place] [address] 06/21/2024 1:30 AM COMMERCIAL CLEANER Allied Health/Nurse Visit [facility] eld [address] [place] [address] Madan Palomo MD [address] [place], [place] [address] [phone] 03/01/2025 11:00 AM CDT Allied Health/Nurse Visit [facility] [place] [address] [place] [address] Norma Rowland PA-C [address] [place] [address] 03/01/2025 11:00 AM CDT Office Visit [facility] [place] [address] [place] [address] Norma Rowland PA-C [address] [place] [address] documented as of this encounter Visit Diagnoses Not on filedocumented in this encounter Care Teams Tape Controlled Machine Stitcher Relationship Specialty Start Date End Date Abdon Villela MD [address] [place] [address] PCP - General FAMILY PRACTICE 12/17/15 documented as of this encounter
--- OUTSIDE RECORDS SUMMARY | 2024-06-08 06:11 | XMS_ITS | Encounter Summary ---
Author Organization [facility] Address [address] [place] [address]. [place] [address] [place] [address] Care Team Providers Care Landscape Foreman Name Role Phone Abdon Villela MD Primary Care Provider [phone] Vik Colvin MD Unavailable Unavailable Encounter Details Date Type Department Care Team (Late st Contact Info) Description 04/03/2017 Abstract [facility] [address] [place] [address] Abdon Villela MD [address] [facility] [place] [address] Social History Tobacco Use Types [...] (Latest Contact Info) Description 06/09/2024 2:20 PM STATION ATTENDANT Telemedicine [facility] [address] Earnest Drake MD [address] [place] [address] 06/21/2024 1:30 AM STATION ATTENDANT Allied Health/Nurse Visit [facility] [address] [place] [address] Mdaan Palomo MD [address] [place] [address] 03/01/2025 11:00 AM CDT Allied Health/Nurse Visit [address] [place] [address] Norma Rowland PA-C [address] [place] [address] 03/01/2025 11:00 AM CDT Office Visit [place] [address] [place] [address] Norma Rowland PA-C [address] [place], [place] [address] documented as of this encounter Procedures Procedure Name Priority Date/Time Associated Diagnosis Comments TSH W/REFLEX Routine 04/03/2017 10:38 AM CDT COMPREHENSIVE METABOLIC PANEL Routine 04/03/2017 10:38 AM CDT CBC W/DIFF AUTOMATED Routine 04/03/2017 10:38 AM CDT documented in this encounter Results * TSH W/REFLEX (04/03/2017 10:38 AM CDT) TSH 2.191 0.350 - 4.940 uIU/ML 04/03/2017 11:29 AM CDT [facility] Comment:FREE T4 NOT INDICATE D SERUM OR PLASMA SPECIMEN / Unknown 04/03/2017 10:38 AM CDT 04/03/2017 10:41 AM CDT us Generic Conversion Md [facility] Final R esult [facility] [address] [employer] [place] [address], * (ABNORMAL) COMPREHENSIVE METABOLIC PANEL (04/03/2017 10:38 AM CDT) Pathologist [facility] GLUCOSE 169(H) 70 - 99 MG/DL 04/03/2017 11:02 AM CDT [facility] BUN 23 8 - 26 MG/DL 04/03/2017 11:02 AM CDT [facility] CREATININE S/P/B 0.98 0.72 - 1.25 MG/DL 04/03/2017 11:02 AM CDT [facility] SODIUM S/P/B 143 136 - 145 MMOL/L 04/03/2017 11:02 AM CDT [facility] POTASSIUM S/P/B 4.3 3.5 - 5.1 MMOL/L 04/03/2017 11:02 AM CDT [facility] CHLORIDE S/P/B 107 98 - 107 MMOL/L 04/03/2017 11:02 AM CDT [facility] CO2 24.0 22.0 - 29.0 MMOL/L 04/03/2017 11:02 AM CDT [facility] CALCIUM S/P/B 9.7 8.8 - 10.0 MG/DL 04/03/2017 11:02 AM CDT [facility] BILIRUBIN TOTAL S/P/B 0.8 0.2 - 1.2 MG/DL 04/03/2017 11:02 AM CDT [facility] TOTAL PROTEIN S/P/B 6.9 6.0 - 8.3 G/DL 04/03/2017 11:02 AM CDT [facility] ALBUMIN S/P/B 3.8 3.2 - 4.6 G/DL 04/03/2017 11:02 AM CDT [facility] AST 17 5 - 34 U/L 04/03/2017 11:02 AM CDT [facility] ALT 16 0 - 55 U/L 04/03/2017 11:02 AM CDT [facility] ALKALINE PHOSPHATASE S/P/B 81 50 - 136 U/L 04/03/2017 11:02 AM CDT [facility] OSMOLALITY (CALC) 293 275 - 300 MOSM/KG 04/03/2017 11:02 AM CDT [facility] A/G RATIO 1.2 1.0 - 1.6 RATIO 04/03/2017 11:02 AM CDT [facility] BUN CREATININE RATIO 23.5(H) 12 - 20 04/03/2017 11:02 AM CDT [facility] ANION GAP 12.0 7 - 16 MMOL/L 04/03/2017 11:02 AM T [facility] EGFR NON-AFR. AMER. >60 >60 ML/MIN/1.7 3 M2 04/03/2017 11:02 AM CDT [facility] EGFR AFR. AMER. >60 >60 ML/MIN/1.7 3 M2 04/03/2017 11:02 AM CDT [facility] 04/03/2017 10:3 8 AM CDT 04/03/2017 10:41 AM CDT us Generic Conversion Md [facility] Final R esult [facility] [address] [place] [address], * (ABNORMAL) CBC W/DIFF AUTOMATED (04/03/2017 10:38 AM CDT) WBC 11.7(H) 4.5 - 10.8 x10'3/uL 04/03/2017 10:44 AM CDT [facility] RBC 4.60 4.50 - 6.10 x10'6/uL 04/03/2017 10:44 AM CDT [facility] HGB 12.8(L) 13.0 - 18.0 G/DL 04/03/2017 10:44 AM CDT [facility] HCT 39.2 37.0 - 52.0 % 04/03/2017 10:44 AM CDT [facility] MCV 85.2 78.0 - 100.0 FL 04/03/2017 10:44 AM CDT [facility] MCH 27.8 27.0 - 31.0 PG 04/03/2017 10:44 AM CDT [facility] MCHC 32.7(L) 33.0 - 36.0 G/DL 04/03/2017 10:44 AM CDT [facility] RDW 14.9(H) 11.5 - 14.5 % 04/03/2017 10:44 AM CDT [facility] PLT 193 150 - 350 x10'3/uL 04/03/2017 10:44 AM CDT [facility] MPV 10.7(H) 7.4 - 10.4 FL 04/03/2017 10:44 AM CDT [facility] SEG NEUTROPHILS 84.3 % 7 10:44 AM CDT [facility] LYMPHOCYTES 9.6 % 04/03/2017 10:44 AM CDT [facility] MONOCYTES 3.9 % 04/03/2017 10:44 AM CDT [facility] EOSINOPHILS 1.3 % 04/03/2017 10:44 AM CDT [facility] BASOPHILS 0.6 % 04/03/2017 10:44 AM CDT [facility] IMMATURE GRANS % 0.3 % 04/03/20 17 10:44 AM CDT [facility] NRBC 0.0 % 04/03/2017 10:44 AM CDT [facility] ABS. NEUTROPHILS 9.86(H) 1.60 - 8.30 x10'3/uL 04/03/2017 10:44 AM CDT [facility] ABS. LYMPHOCYTES 1.13 0.80 - 4.70 x10'3/uL 04/03/2017 10:44 AM CDT [facility] ABS. MONOCYTES 0.46 0.00 - 1.50 x10'3/uL 04/03/2017 10:44 AM CDT [facility] ABS. EOSINOPHILS 0.15 0.00 - 0.40 x10'3/uL 04/03/2017 10:44 AM CDT [facility] ABS. BASOPHILS 0.07 0.00 - 0.20 x10'3/uL 04/03/2017 10:44 AM CDT [facility] ABS. IMMATURE GRANULOCYTES 0.04(H) 0.00 - 0.03 x10'3/uL 04/03/2017 10:44 AM CDT [facility] ABS. NUCLEATED RBC'S 0.00 0.00 x10'3/uL 04/03/2017 10:44 AM CDT [facility] OTHER (type in comments) 04/03/2017 10:38 AM CDT 04/03/2017 10:41 AM CDT Comment:WHOLE BLOOD SAMPLE us Generic Conversion Md [facility] Final R esult [facility] [address] [place] [address], documented in this encounter Visit Diagnoses Diagnosis Abdominal pain Abdominal pain, unspecified site documented in this encounter Care Teams Landscape Foreman Relationship Specialty Start Date End Date Abdon Villela MD [address] [place] [address] PCP - General FAMILY PRACTICE 12/17/15 Vik Colvin MD [address] [place] [address] [facility] Worker INTERVENTIONAL CARDIOLOGY 05/20/18 07/04/19 documented as of this encounter
--- OUTSIDE RECORDS SUMMARY | 2024-06-08 06:11 | XMS_ITS | Encounter Summary ---
Author Organization [facility] Address [address] [place] [address]. [place] [address] [place] [address] Care Team Providers Care Sports Reporter Name Role Phone Abdon Villela MD Primary Care Provider Encounter Details Date Type Department Care Team (Late st Contact Info) Description 12/21/2015 Scan [facility]NOTE 3]EA BUSINESS OFFICE [address] [place] [address] Scanned, Documents Social History Tobacco Use [...] Contact Info) Description 06/09/2024 2:20 PM JEWELRY FACER Telemedicine [facility] Medical Group Multispecialty [facility] [address] [place] [address] Earnest Drake MD [address] [place] [address] 06/21/2024 1:30 AM JEWELRY FACER [facility] [address] [place] [address] Madan Palomo MD [address] [place] [address] 03/01/2025 11:00 AM CDT Allied Health/Nurse Visit [facility] [place] [address] [place] [address] Norma Rowland PA-C [address] [place], [place] [address] 03/01/2025 11:00 AM CDT Office Visit [facility] [place] [address] [place] [address] Norma Rowland PA-C [address] [place], [place] [address] documented as of this encounter Visit Diagnoses Not on filedocumented in this encounter Care Teams Sports Reporter Relationship Specialty Start Date End Date Abdon Villela MD [address] [place] [address] PCP - General FAMILY PRACTICE 12/17/15 documented as of this encounter
--- OUTSIDE RECORDS SUMMARY | 2024-06-08 06:11 | XMS_ITS | Encounter Summary ---
Author Organization [facility] - [facility] Address [address] [place] [address]. [place] [address] [place] [address] Care Team Providers Care Student Support Services Director Name Role Phone Abdon Villela MD Primary Care Provider [phone] Encounter Details Date Type Department Care Team (Late st Contact Info) Description 11/07/2014 Scan [facility] AT [address] [place] [address] , Claribel Pena MD Social [...] (Latest Contact Info) Description 06/09/2024 2:20 PM BILINGUAL SOCIAL WORKER Telemedicine [facility] [address] [place] [address] Earnest Drake MD [address] [place] [address] 06/21/2024 1:30 AM BILINGUAL SOCIAL WORKER Allied Health/Nurse Visit [facility] [address] [place] [phone] Madan Palomo MD [address] [place], [place] [phone] 03/01/2025 11:00 AM CDT Allied Health/Nurse Visit [facility] [place] [address] [place] [address] Norma Rowland PA-C [address] [place] [address] 03/01/2025 11:00 AM CDT Office Visit [facility] [place] [address] [place] [address] Norma Rowland PA-C [address] [place] [address] documented as of this encounter Visit Diagnoses Not on filedocumented in this encounter Care Teams Student Support Services Director Relationship Specialty Start Date End Date Abdon Villela MD [address] [place] [address] PCP - General FAMILY PRACTICE 12/17/15 documented as of this encounter
--- OUTSIDE RECORDS SUMMARY | 2024-06-08 06:11 | XMS_ITS | Encounter Summary ---
Author Organization [facility] Address [facility]ly [facility] [place] [address] [place] [address] Care Team Providers Care Adjunct Instructor Of Women'S Studies Name Role Phone Unavailable Primary Care Provider Unavailabl e Encounter Details Date Type Department Care Team (Late st Contact Info) Description 04/30/2015 Scan [facility] AT [address] [place] [address] Claribel Arredondo MD Social History [...] (Latest Contact Info) Description 06/09/2024 2:20 PM ENTREPRENEURIAL FINANCE PROFESSOR Telemedicine [facility] [address] [place] [phone] Earnest Drake MD [address] [place], [place] [phone] 06/21/2024 1:30 AM ENTREPRENEURIAL FINANCE PROFESSOR Allied Health/Nurse Visit [facility] eld [address] [place] [phone] Madan Palomo MD [address] [place], [place] [address] 03/01/2025 11:00 AM CDT Allied Health/Nurse Visit [facility] [address] [place] [address] Norma Rowland PA-C [address] [place], [place] [address] 03/01/2025 11:00 AM CDT Office Visit [facility] [address] [place] [phone] Norma Rowland PA-C [address] [place], [place] [phone] documented as of this encounter Visit Diagnoses Not on filedocumented in this encounter
--- OUTSIDE RECORDS SUMMARY | 2024-06-08 06:29 | XMS_ITS ---
Author Organization [facility] Address Unknown Allergies, Adverse Reactions, Alerts Substance Reaction Status Noted Date Resolved Date Tomatoes active 08/10/2023 Medications Medication Dose Frequency Directions Start Date End Malik e Apixaban Oral Tablet 5 MG 1 {tbl} 12 h Give 1 tablet by mouth two times a day related to CHRONIC ATRIAL FIBRILLATION, UNSPECIFIED (I48.20) 07/31/2023 05/19/2024 Nitroglycerin Sublingual Tablet Sublingual 0.4 MG 1 {tbl} Give 1 tablet sublingually every 5 minutes as needed for chest pain one tablet under tongue every 5 minutes X 3, no relief call 07/31/2023 05/19/2024 Furosemide Oral Tablet 40 MG 1 {tbl} Give 1 tablet by mouth in the morning related to HEART FAILURE, UNSPECIFIED (I50.9) 08/01/2023 05/19/2024 Polyethylene Glycol 3350 Powder 17 Give 17 gram by mouth every 24 hours as needed for constipation 07/31/2023 05/19/2024 Potassium Chloride May ER Oral Tablet Extended Release 20 MEQ 1 {tbl} Give 1 tablet by mouth in the morning related to HEART FAILURE, UNSPECIFIED (I50.9) 08/01/2023 05/19/2024 metFORMIN HCl Oral Tablet 1000 MG 1 {tbl} 12 h Give 1 tablet by mouth two times a day related to TYPE 2 DIABETES MELLITUS WITH OTHER CIRCULATORY COMPLICATIONS (E11.59) 07/31/2023 05/19/2024 Magnesium Oxide Oral Tablet 400 MG 1 {tbl} Give 1 tablet by mouth in the morning for deficiency 08/01/2023 05/19/2024 Atorvastatin Calcium Oral Tablet 80 MG 1 {tbl} Give 1 tablet by mouth at bedtime related to HYPERLIPIDEMIA, UNSPECIFIED (E78.5) 08/01/2023 05/19/2024 Acetaminophen Oral Tablet 500 MG 2 {tbl} Give 2 tablet by mouth every 6 hours as needed for pain 07/31/2023 05/19/2024 Cyanocobalamin Tablet 1000 MCG 1 {tbl} Give 1 tablet by mouth in the morning for deficiency 08/01/2023 05/19/2024 Loperamide HCl Capsule 2 MG 1 {Capsule} Give 1 capsule by mouth as needed for diarrhea after each loose stool 08/30/2023 05/19/2024 Ferrous Sulfate Oral Tablet 325 (65 Fe) MG 1 {tbl} Give 1 tablet by mouth in the morning for anemia 09/04/2023 05/19/2024 Imodium A-D Oral Tablet 2 MG 1 {tbl} 12 h Give 1 tablet by mouth two times a day for loose stools hold if no BM in 24 hours 09/29/2023 05/19/2024 Finasteride Oral Tablet 5 mg Give 5 mg by mouth in the morning related to 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) 12/09/2023 05/19/2024 Carvedilol Oral Tablet 6.25 mg 12 h Give 6.25 mg by mouth two times a day related to HYPERTENSIVE HEART DISEASE WITH HEART FAILURE (I11.0) 03/02/2024 05/19/2024 Lisinopril Oral Tablet 5 mg Give 5 mg by mouth in the morning related to HYPERTENSIVE HEART DISEASE WITH HEART FAILURE (I11.0) 03/03/2024 05/19/2024 Loperamide HCl Oral Tablet 2 MG 1 {tbl} Give 1 tablet by mouth every 6 hours as needed for diarrhea 05/25/2024 06/07/2024 DAPTOmycin Intravenous Solution Reconstituted 600 mg Use 600 mg intravenously in the morning for MSSA Bacteremia for 37 Days IV PUSH OVER 2 MINUTES 05/26/2024 06/07/2024 metFORMIN HCl Oral Tablet 1000 MG 1 {tbl} 12 h Give 1 tablet by mouth two times a day related to TYPE 2 DIABETES MELLITUS WITH OTHER CIRCULATORY COMPLICATIONS (E11.59) 05/25/2024 06/07/2024 Potassium Chloride May ER Oral Tablet Extended Release 20 MEQ 1 {tbl} Give 1 tablet by mouth in the morning for deficiency 05/26/2024 06/07/2024 Finasteride Oral Tablet 5 MG 1 {tbl} Give 1 tablet by mouth in the morning related to 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) 05/26/2024 06/07/2024 Acetaminophen Oral Tablet 500 MG 2 {tbl} Give 2 tablet by mouth every 6 hours as needed for pain 05/25/2024 06/07/2024 Furosemide Oral Tablet 40 MG 1 {tbl} Give 1 tablet by mouth in the morning related to HEART FAILURE, UNSPECIFIED (I50.9) 05/26/2024 06/07/2024 Magnesium Oxide Oral Tablet 400 MG 1 {tbl} 12 h Give 1 tablet by mouth two times a day for deficiency 05/25/2024 06/07/2024 Nitroglycerin Sublingual Tablet Sublingual 0.4 MG 1 {tbl} Give 1 tablet sublingually every 5 minutes as needed for chest pain up to 3 doses then notify MD 05/25/2024 06/07/2024 Ferrous Sulfate Oral Tablet 325 (65 Fe) MG 1 {tbl} Give 1 tablet by mouth in the morning for deficiency 05/26/2024 06/07/2024 Cyanocobalamin Oral Tablet 1000 MCG 1 {tbl} Give 1 tablet by mouth in the morning for deficiency 05/26/2024 06/07/2024 Polyethylene Glycol 3350 Powder 17 Give 17 gram by mouth every 24 hours as needed for constipation 05/25/2024 06/07/2024 Carvedilol Oral Tablet 6.25 MG 1 {tbl} 12 h Give 1 tablet by mouth two times a day related to HEART FAILURE, UNSPECIFIED (I50.9) 05/25/2024 06/07/2024 Apixaban Oral Tablet 5 MG 1 {tbl} 12 h Give 1 tablet by mouth two times a day related to HEART FAILURE, UNSPECIFIED (I50.9) 05/25/2024 06/07/2024 Lisinopril Oral Tablet 5 MG 1 {tbl} Give 1 tablet by mouth in the morning related to HYPERTENSIVE HEART DISEASE WITH HEART FAILURE (I11.0) 05/26/2024 06/07/2024 Sodium Chloride Flush Intravenous Solution 0.9 % 10 mL 12 h Use 10 ml intravenously two times a day for IV ABT FLUSH BEFORE AND AFTER IV PUSH ABT 05/28/2024 05/27/2024 Sodium Chloride Flush Intravenous Solution 0.9 % 10 mL 12 h Use 10 ml intravenously two times a day for IV ABT until 07/02/2024 23:59 FLUSH BEFORE AND AFTER IV PUSH ABT 05/28/2024 06/07/2024 [facility] Wound/Burn Dressing External Gel Apply to sacral/coccyx area topically every day shift for wound care Cleanse area with NS or sterile water, apply honey gel to slough, cover area with calcium alginate, apply dry dressing. 05/31/2024 06/07/2024 [facility] Wound/Burn Dressing External Gel Apply to sacral/coccyx area topically as needed for soiling/dislodged Cleanse area with NS or sterile water, apply honey gel to slough, cover area with calcium alginate, apply dry dressing. 05/30/2024 06/07/2024 Medications Administered Medication Dose Frequency Status Start Date End Date Apixaban Oral Tablet 5 MG 1 {tbl} 12 h Hospitalized 1 07/18/2023 Nitroglycerin Sublingual Tablet Sublingual 0.4 MG 1 {tbl} 05/16/2024 Furosemide Oral Tablet 40 MG 1 {tbl} Hospitalize d 05/18/2024 Polyethylene Glycol 3350 Powder 17 07/31/2023 Potassium Chloride May ER Oral Tablet Extended Release 20 MEQ 1 {tbl} Hospitalized 05/18/2024 metFORMIN HCl Oral Tablet 10 00 MG 1 {tbl} 12 h Hospitalized 05/18/2024 Magnesium Oxide Oral Tablet 400 MG 1 {tbl} Hospitalized 05/18/2024 Atorvastatin Calcium Oral Tablet 80 MG 1 {tbl} Hospitalized 05/19/2024 Acetaminophen Oral Tablet 50 0 MG 2 {tbl} 05/15/2024 Cyanocobalamin Tablet 1000 MCG 1 {tbl} Hospitali zed 05/18/2024 Loperamide HCl Capsule 2 MG 1 {Capsule} 08/30/2023 Ferrous Sulfate Oral Tablet 325 (65 Fe) MG 1 {tbl} Hospitalized 05/18/2024 Imodium A-D Oral Tablet 2 MG 1 {tbl} 12 h Hospitalize d 05/18/2024 Finasteride Oral Tablet 5 mg Hospitalized Carvedilol Oral Tablet 6.25 mg 12 h Hospitalized 04/23 Lisinopril Oral Tablet 5 mg Hospitalized 04/23 Loperamide HCl Oral Tablet 2 MG 1 {tbl} 05/25/2024 DAPTOmycin Intravenous Solution Reconstituted 600 mg Hospitalized 06/06/2024 metFORMIN HCl Oral Tablet 10 00 MG 1 {tbl} 12 h Hospitalized 06/06/2024 Potassium Chloride May ER Oral Tablet Extended Release 20 MEQ 1 {tbl} Hospitalized 06/06/2024 Finasteride Oral Tablet 5 MG 1 {tbl} Hospitalize d 06/06/2024 Acetaminophen Oral Tablet 50 0 MG 2 {tbl} 05/25/2024 Furosemide Oral Tablet 40 MG 1 {tbl} Hospitalize d 06/06/2024 Magnesium Oxide Oral Tablet 400 MG 1 {tbl} 12 h Hospitalized 06/06/2024 Nitroglycerin Sublingual Tablet Sublingual 0.4 MG 1 {tbl} 06/01/2024 Ferrous Sulfate Oral Tablet 325 (65 Fe) MG 1 {tbl} Hospitalized 06/06/2024 Cyanocobalamin Oral Tablet 1000 MCG 1 {tbl} Hospitalized 06/06/2024 Polyethylene Glycol 3350 Powder 17 05/25/2024 Carvedilol Oral Tablet 6.25 MG 1 {tbl} 12 h Hospitali zed 06/06/2024 Apixaban Oral Tablet 5 MG 1 {tbl} 12 h Hospitalized 1 08/07/2023 Lisinopril Oral Tablet 5 MG 1 {tbl} Hospitalized 06/06/2024 Sodium Chloride Flush Intravenous Solution 0.9 % 10 mL 12 h 05/28/2024 Sodium Chloride Flush Intravenous Solution 0.9 % 10 mL 12 h Hospitalized 06/06/2024 [facility] Wound/Burn Dressin g External Gel Hospitalized 06/06/2024 [facility] Wound/Burn Dressin g External Gel 05/30/2024 Problems Problem Status Start Date End Date URINARY TRACT INFECTION, SIT E NOT SPECIFIED (Primary) (N39.0 - ICD-10-CM) ACTIVE 05/25/2024 ACUTE RESPIRATORY FAILURE WI TH HYPOXIA (J96.01 - ICD-10-CM) ACTIVE 07/31/2023 CHRONIC PULMONARY EDEMA (J81.1 - ICD-10-CM) ACTIVE 07/31/2023 HYPERTENSIVE HEART DISEASE W ITH HEART FAILURE (I11.0 - ICD-10-CM) ACTIVE 07/31/2023 PULMONARY HYPERTENSION, UNSP ECIFIED (I27.20 - ICD-10-CM) ACTIVE 07/31/2023 SICK SINUS SYNDROME (I49.5 - ICD-10-CM) ACTIVE 0 07/31/2023 TYPE 2 DIABETES MELLITUS WIT H OTHER CIRCULATORY COMPLICATIONS (E11.59 - ICD-10-CM) ACTIVE 07/31/2023 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 - ICD-10-CM) ACTIVE 07/31/19 24 CHRONIC ATRIAL FIBRILLATION, UNSPECIFIED (I48.20 - ICD-10-CM) ACTIVE 07/31/2023 UNSPECIFIED DEMENTIA, UNSPEC IFIED SEVERITY, WITH AGITATION (F03.911 - ICD-10-CM) RESOLVED 12/22/2023 04/13/20 24 OTHER OBSTRUCTIVE AND REFLUX UROPATHY (N13.8 - ICD-10-CM) ACTIVE 11/30/2023 RETENTION OF URINE, UNSPECIFIED (R33.9 - ICD-10-CM) RE SOLVED 11/27/2023 12/22/2023 BLADDER-NECK OBSTRUCTION (N32.0 - ICD-10-CM) ACTIVE 11/27/2023 UNSPECIFIED ATRIOVENTRICULAR BLOCK (I44.30 - ICD-10-CM) ACTIVE 07/31/2023 CARDIOMEGALY (I51.7 - ICD-10-CM) ACTIVE 07/31/19 24 HEART FAILURE, UNSPECIFIED (I50.9 - ICD-10-CM) ACTIVE 07/31/2023 HYPERLIPIDEMIA, UNSPECIFIED (E78.5 - ICD-10-CM) ACTIVE 07/31/2023 SEVERE SEPSIS WITHOUT SEPTIC SHOCK (R65.20 - ICD-10-CM) ACTIVE 05/25/2024 BACTEREMIA (R78.81 - ICD-10-CM) ACTIVE PRESENCE OF CARDIAC PACEMAKER (Z95.0 - ICD-10-CM) ACTI VE 05/25/2024 VASCULAR DEMENTIA, UNSPECIFI ED SEVERITY, WITHOUT BEHAVIORAL DISTURBANCE, PSYCHOTIC DISTURBANCE, MOOD DISTURBANCE, AND ANXIETY (F01.50 - ICD-10-CM) ACTIVE 04/12/2024 OTHER RETENTION OF URINE (R33.8 - ICD-10-CM) ACTIVE 12/22/2023 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 - ICD-10-CM) ACTIVE 11/30/2023 VASCULAR DEMENTIA, MILD, WIT HOUT BEHAVIORAL DISTURBANCE, PSYCHOTIC DISTURBANCE, MOOD DISTURBANCE, AND ANXIETY (F01.A0 - ICD-10-CM) RESOLVED 10/27/2023 024 Encounters Encounter Performer Performer Role Encounter Diagnoses [facility] [place] [facility]23 03:05 pm EST - 05/16/2024 05:30 pm EST Discharge - Discharged / [facility] [place] 05/25/2024 05:22 pm EST - 06/04/2024 08:06 am EST Reason For Referral Chest Pain Immunizations Vaccine Date Influenza TB 2 Step [place] Skin Test 08/27/2023 1 1:56 am EST TB 2 Step [place] Skin Test 08/12/2023 1 2:05 pm EST SARS-COV-2 (COVID-19) 09/26/2020 01:00 a m EDT SARS-COV-2 (COVID-19) 08/28/2020 01:00 a m EST Prevnar 20 COVID-19, mRNA, LNP-S, PF, 30 mcg/0.3 mL dose, low-sucrose Social History Vital Signs Vital Sign Reading Time Taken oxygenSaturation 94 % 06/03/2024 03:2 9 pm EST oxygenSaturation 95 % 06/02/2024 11:1 3 pm EST oxygenSaturation 94 % 06/02/2024 05:5 8 pm EST oxygenSaturation 93 % 06/02/2024 08:5 2 am EST oxygenSaturation 96 % 06/01/2024 11:4 1 pm EST oxygenSaturation 96 % 06/01/2024 09:0 2 pm EST oxygenSaturation 92 % 06/01/2024 01:5 9 pm EST oxygenSaturation 92 % 06/01/2024 01:5 9 pm EST painLevel 0 {score} 06/03/2024 03:29 pm EST painLevel 0 {score} 06/02/2024 11:13 pm EST painLevel 0 {score} 06/02/2024 05:57 pm EST painLevel 0 {score} 06/02/2024 08:53 am EST painLevel 0 {score} 06/02/2024 12:06 am EST heartrate 61 /min 06/03/2024 10:10 am EST heartrate 62 /min 06/03/2024 12:28 am EST heartrate 62 /min 06/02/2024 09:53 pm EST heartrate 64 /min 06/02/2024 09:57 am EST heartrate 68 /min 06/01/2024 11:41 pm EST heartrate 70 /min 06/01/2024 09:44 pm EST heartrate 60 /min 06/01/2024 01:08 pm EST heartrate 61 /min 06/01/2024 01:29 am EST heartrate 61 /min 06/01/2024 01:27 am EST temperature 98.4 [degF] 06/03/2024 10:10 am EST temperature 97.5 [degF] 06/03/2024 12:28 am EST temperature 98.8 [degF] 06/02/2024 09:53 pm EST temperature 98.5 [degF] 06/02/2024 09:57 am EST temperature 97.5 [degF] 06/01/2024 11:41 pm EST temperature 97.6 [degF] 06/01/2024 09:44 pm EST temperature 98.4 [degF] 06/01/2024 01:08 pm EST temperature 98 [degF] 06/01/2024 01:29 am EST temperature 98 [degF] 06/01/2024 01:27 am EST systolicValue 100 mm[Hg] 06/03/2024 10:10 am EST diastolicValue 55 mm[Hg] 06/03/2024 10:10 am EST systolicValue 139 mm[Hg] 06/03/2024 12:28 am EST diastolicValue 61 mm[Hg] 06/03/2024 12:28 am EST systolicValue 108 mm[Hg] 06/02/2024 09:53 pm EST diastolicValue 60 mm[Hg] 06/02/2024 09:53 pm EST systolicValue 105 mm[Hg] 06/02/2024 09:57 am EST diastolicValue 64 mm[Hg] 06/02/2024 09:57 am EST systolicValue 120 mm[Hg] 06/01/2024 11:41 pm EST diastolicValue 72 mm[Hg] 06/01/2024 11:41 pm EST systolicValue 122 mm[Hg] 06/01/2024 09:44 pm EST diastolicValue 78 mm[Hg] 06/01/2024 09:44 pm EST systolicValue 113 mm[Hg] 06/01/2024 01:08 pm EST diastolicValue 62 mm[Hg] 06/01/2024 01:08 pm EST systolicValue 83 mm[Hg] 06/01/2024 01:29 am EST diastolicValue 58 mm[Hg] 06/01/2024 01:29 am EST systolicValue 83 mm[Hg] 06/01/2024 01:27 am EST diastolicValue 58 mm[Hg] 06/01/2024 01:27 am EST respirations 20 /min 06/03/2024 10:10 am EST respirations 18 /min 06/03/2024 12:28 am EST respirations 20 /min 06/02/2024 09:53 pm EST respirations 20 /min 06/02/2024 09:57 am EST respirations 20 /min 06/01/2024 11:41 pm EST respirations 20 /min 06/01/2024 09:44 pm EST respirations 20 /min 06/01/2024 01:08 pm EST respirations 16 /min 06/01/2024 01:29 am EST respirations 16 /min 06/01/2024 01:27 am EST weight 153.6 [lb_av] 06/01/2024 08:39 am EST
[2024-06-08 08:13] VITALS: O2SAT 93
--- NOTE | 2024-06-08 15:15 | P.DN_ITS ---
Discharge Summary Date and Time Date of : 06/08/24 Time of : 12:00 Provider Pronounced By: 2 RNs Name of First RN That Pronounced: Luz Marina Monzon Name of Second RN That Pronounced: Mariel Pérez Probable Cause of Probable Cause of : Respiratory failure Summary Hospital Course: Patient presented with increasing confusion and was unresponsive to the staff. On arrival to the ED, he was hypoxic and was placed on BIPAP. Workup showed roshni ral consolidations in the right lower lobe consistent with multifocal pneumonia. He was started on IV antibiotics. Urine culture was positive but Blood cultures remained negative. He has been placed on bipap. Family contacted and they confirmed and verified a DNR status. Patient's respiratory status continued to decline and he was transitioned to comfort care after discussing with patient's family. He was kept comfortable and on 06/08/24. Additional Data Confirmation of as documented by pronouncing clinician: Pupillary Reflex, Palpable Pulses, Response to Stimuli, Heart Tones and Breath Sounds Name of Provider Notified: Dr De Luna Time Provider Notified: 12:01 Provider Requests Autopsy: No [employer] Teacher Notified: Yes Date [facility] Notified of : 06/08/24 Time [facility] Notified of : 12:37
[2024-06-09 18:23] LABS: Mycoplasma IgM Antibody Titer 712 U/mL
== END 2024-06-08 12:00 | disposition expired | DRG 193 ==
LOC: ANHIMU 06-05 12:15 → ANH3MEDSUR 06-06 12:27
PROVIDERS: Admitting Provider Internal Medicine; PCP Family Medicine; Visit Provider Internal Medicine
DX: J18.9 Pneumonia, unspecified organism (principal); J96.01 Acute respiratory failure with hypoxia; J96.02 Acute respiratory failure with hypercapnia; G93.40 Encephalopathy, unspecified; R78.81 Bacteremia; I11.0 Hypertensive heart disease with heart failure; I50.9 Heart failure, unspecified; I48.91 Unspecified atrial fibrillation; E11.9 Type 2 diabetes mellitus without complications; N40.0 Benign prostatic hyperplasia without lower urinary tract symptoms; I25.10 Atherosclerotic heart disease of native coronary artery without angina pectoris; F03.90 Unspecified dementia, unspecified severity, without behavioral disturbance, psychotic disturbance, mood disturbance, and anxiety; E78.5 Hyperlipidemia, unspecified; Z95.0 Presence of cardiac pacemaker
CPT/HCPCS: 36415; 36600; 71045; 80053; 81001; 82550; 82805; 82948; 83036; 83735; 84145; 85018; 85025; 86738; 87040; 87086; 87186; 87641; 94002; 94003; 94640; 94660; J0456; J0692; J0878; J1650; J2060; J2270; J7030